=== PATIENT | female | born 1960 | race African-American/Black ===

== ENCOUNTER 2017-07-21 20:37 | Inpatient (IN) | payer MEDICARE, MEDICAID ==
[~2017-07-21] VITALS: Ht 152.4 cm; Wt 92.5 kg
[~2017-07-21 20:37] MED LIST: ACCOLATE20 MG PO; ADVAIR 250-501 EACH IH; ALIGN4 MG PO; ANASTROZOLE1 MG PO; ASPIRIN81 M1 PO; CLONIDINE0.1 MG PO; CYCLOBENZAPRINE10 MG PO; DOC-Q-LACE100 MG PO; DUONEB 0.5 MG-33 ML IH; FLONASE1 SPRAYS NASAL; HYDROCHLOROTH12.5 M1 PO; HYDROCODON-ACE1 EA11 PO; HYDROXYZINE HCL50 MG PO; KLOR-CON M1010 MEQ PO; LISINOPRIL10 MG ORAL; MELOXICAM15 MG PO; METFORMIN HCL1000 M1 ORAL; MONTELUKAST SOD10 MG PO; NEXIUM40 MG PO; OYSCO 500+D TA1 EACH PO; RESTORIL30 MG ORAL; TEMAZEPAM30 MG PO; TRIAMTERENE-HC1 EAC1 PO; VALTREX500 MG ORAL; ZOCOR40 MG PO; ZOLOFT50 MG PO; [UNRECOGNIZED DRUG - OTHER] PO
--- NOTE | 2017-07-21 20:49 | Emergency Room Report ---
History of Present Illness General Chief Complaint: Dyspnea/Respdistress Source: Patient Present Illness HPI [id number] BIBEMS for SOB since this morning. SNF told EMS, hypoxia down to 50%. Improved to 100% on CPAP. Patient states history of CHF, COPD. Former smoker. On 3L Home O2 From SNF Denies chest pain, fever/chills, cough, abd pain, urinary complaints. Allergies: Coded Allergies: AMOXICILLIN (Verified Allergy, Mild, RASH HIVES, 09/29/13) CODEINE (Verified Allergy, Mild, RASH/HIVES, 09/29/13) IODINE (Verified Allergy, Unknown, 09/29/13) PENICILLINS (Verified Allergy, Unknown, RASH HIVES, 09/29/13) Patient History Past Medical History: other - see hpit Past Surgical History: none Pertinent Family History: none Social History: Denies: smoking, alcohol use, drug use Last Menstrual Period: none Now: No Immunizations: UTD Reviewed Nursing Documentation: PMH: Agreed, PSxH: Agreed Nursing Documentation-PMH Hx Cardiac Problems: Yes Hx Hypertension: Yes Hx Pacemaker: No Hx Asthma: Yes Hx COPD: Yes Hx Diabetes: Yes Hx Cancer: Yes - UTERINE AND BREAST Hx Gastrointestinal Problems: Yes Hx Neurological Problems: No Review of Systems All Other Systems: negative except mentioned in HPI Physical Exam Vital Signs Date Time Temp Pulse Resp B/P (MAP) Pulse Ox O2 Delivery O2 Flow Rate FiO2 07/21/17 20:31 98.8 84 26 137/60 100 Venturi Mask Sp02 EP Interpretation: reviewed, normal General Appearance: normal inspection, well appearing, no apparent distress, alert, GCS 15, non-toxic Head: normocephalic, atraumatic Eyes: bilateral eye PERRL, bilateral eye EOMI ENT: normal ENT inspection, hearing grossly normal, normal voice Neck: normal inspection, full range of motion, supple, no meningismus, no bony tend Respiratory: normal inspection, lungs clear, normal breath sounds, no respiratory distress, no retraction, no wheezing Cardiovascular #1: regular rate, rhythm, no edema Gastrointestinal: normal inspection, normal bowel sounds, non tender, soft, no guarding, no hernia Genitourinary: no CVA tenderness Musculoskeletal: normal inspection, back normal, normal range of motion, Emy' s Sign negative Neurologic: normal inspection, alert, oriented x3, responsive, 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, motor strength/tone normal, speech normal Psychiatric: normal inspection, judgement/insight normal, mood/affect normal Skin: normal inspection, normal color, no rash Lymphatic: normal inspection Procedures Critical Care Time Critical Care Time CC time 35 minutes for SOB, hypoxia VS: O2 sat 80% on RA here History of CHF, COPD CC time includes adjusting Bipap, interpreting ABG, review of ECG, labs, d/w hospitalist, review of paperwork, multiple bedside reassessment Intubation Intubation : Consent: Emergent Intubation Method: orotracheal Tube Size (cm): 7.5 Medications: Etomidate, Rocuronium Breath Sounds after Intubation: equal Intubation Complications: no complications Post Intubation Xray: Yes Attempts: One Patient Tolerated: Well Complications: None Medical Decision Making Diagnostic Impression: Primary Impression: Dyspnea Qualified Codes: R06.02 - Shortness of breath Additional Impressions: Hypoxia Pneumonia Qualified Codes: J18.1 - Lobar pneumonia, unspecified organism Hyperkalemia Prolonged Q-T interval on ECG Hypercapnia ER Course Labs: No leuks. H&H stable. Mild HyperK. Troponin <0.05 ECG with Atrial flutter without RVR, prolonged QTc SOB - Multifactorial: COPD exacerbation and right lower lob PNA - Blood Cx pending - Abd given - Vitals otherwise stable - On initial ABG was hypercarbia. Tried with BIPAP at high RR with serial ABG because patient at first did not want to be intubated. After ~60minutes of bipap , was still hypercarbic and mildly acidotic with worsening somnolence requiring emergent intubation. Prolonged QTc - Avoid prolongation meds - IV Mg given in ED - also a bronchodilator for COPD exace Admitted to [facility] Dr. Downey 1000pm Upgraded to ICU 3am Dr Downey informed of change EKG Diagnostic Results Rate: normal Rhythm: other - Atrial flutter ST Segments: other - Prolonged QTc ASA given to the pt in ED: No Rhythm Strip Diag. Results EP Interpretation: yes Rate: 75 Rhythm: NSR, no PVC's Chest X-Ray Diagnostic Results Chest X-Ray Diagnostic Results : Chest X-Ray Ordered: Yes # of Views/Limited/Complete: 1 View Indication: Shortness of Breath EP Interpretation: Yes Interpretation: no pneumothorax, no acute cardiopulmonary disease Impression: Other - Right lower lobe PNA Last Vital Signs Date Time Temp Pulse Resp B/P (MAP) Pulse Ox O2 Delivery O2 Flow Rate FiO2 07/21/17 20:31 98.8 84 26 137/60 100 Venturi Mask Status: improved Disposition: ADMITTED INPATIENT Condition: Critical SUKHDEV CARBAJAL M.D. Jul 21, 2017 20:49
[2017-07-21 20:53] VITALS: BP 157/56
[2017-07-21 21:09] LABS: BASOPHILS % (AUTO) 1.9 % (0.0-2.0); EOSINOPHILS % (AUTO) 0.2 % (0.0-3.0); LYMPHOCYTES % (AUTO) 19.3 % (20.0-45.0); MEAN CORPUSCULAR HEMOGLOBIN 27.4 PG (27.0-31.0); MEAN CORPUSCULAR HGB CONC 28.1 G/DL (32.0-36.0); MEAN CORPUSCULAR VOLUME 98 FL (80-99); MEAN PLATELET VOLUME 7.3 FL (6.5-10.1); MONOCYTES % (AUTO) 5.7 % (1.0-10.0); PLATELET COUNT 282 K/UL (150-450); RED BLOOD COUNT 3.67 M/UL (4.20-5.40); RED CELL DISTRIBUTION WIDTH 14.9 % (11.6-14.8); WHITE BLOOD COUNT 9.2 K/UL (4.8-10.8)
[2017-07-21 21:43] LABS: ALANINE AMINOTRANSFERASE 19 U/L (12-78); ALBUMIN/GLOBULIN RATIO 0.8 (1.0-2.7); ANION GAP 2 (5-15); ASPARTATE AMINO TRANSFERASE 20 U/L (15-37); CHLORIDE 101 MMOL/L (98-107); CREATININE 0.7 MG/DL (0.55-1.30); GLOMERULAR FILTRATION RATE > 60 mL/min (>60); POTASSIUM 5.2 MMOL/L (3.5-5.1); SODIUM 144 MMOL/L (136-145); TOTAL PROTEIN 6.4 G/DL (6.4-8.2)
[2017-07-21 21:44] LABS: CARBON DIOXIDE 41 MMOL/L (21-32)
[2017-07-21] MEDS ORDERED: Albuterol ud Inhalation HHN ONE (22:15)
[2017-07-21] MEDS ORDERED: Vancomycin 1 GM in NS 275 ML IVPB ONE (22:15)
[2017-07-21] MEDS ORDERED: AMIODARONE HCL400 M1 ORAL (22:55)
[2017-07-21] MEDS ORDERED: PANTOPRAZOLE SO40 MG ORAL (22:55)
[2017-07-21] MEDS ORDERED: ZOFRAN8 MG ORAL (22:55)
[2017-07-21] MEDS ORDERED: LEVEMIR FL100 UNIT/1 SUBQ (22:55)
[2017-07-21] MEDS ORDERED: CATAPRES0.1 MG ORAL (22:55)
[2017-07-21] MEDS ORDERED: ATORVASTATIN CA20 MG ORAL (22:55)
[2017-07-21] MEDS ORDERED: ALBUTEROL2.5 MG/3 M INH (22:55)
[2017-07-21] MEDS ORDERED: LOSARTAN POTASS25 MG ORAL (22:55)
[2017-07-21] MEDS ORDERED: SERTRALINE HCL25 MG ORAL (22:55)
[2017-07-21] MEDS ORDERED: FUROSEMIDE20 M1 ORAL (22:55)
[2017-07-21] MEDS ORDERED: ELIQUIS5 MG PO (22:55)
[2017-07-21] MEDS ORDERED: METFORMIN HCL500 M1 ORAL (22:55)
[2017-07-21] MEDS ORDERED: TEMAZEPAM15 MG ORAL (22:55)
[2017-07-21] MEDS ORDERED: DILTIAZEM 24HR120 M1 ORAL (22:55)
[2017-07-21] MEDS ORDERED: DOCUSATE SODIU100 MG ORAL (22:55)
[2017-07-21 23:46] LABS: ABG ALLEN TEST POSITIVE; ABG BASE EXCESS 13.2
[2017-07-21 23:47] VITALS: BP 128/67
[2017-07-22] VITALS (20 sets, daily range): BP systolic 119–185; BP diastolic 56–96
[2017-07-22] MEDS ORDERED: Vancomycin 1250mg/D5W 250ml IVPB SCH
[2017-07-22] MEDS ORDERED: Vancomycin 1.5gm/D5W 250ml 250 ML IVPB ONE
[2017-07-22 00:42] LABS: ABG ALLEN TEST POSITIVE; ABG BASE EXCESS 10.7; ABG PCO2 91.9 mmHg (35.0-45.0)
[2017-07-22 02:05] LABS: ABG ALLEN TEST POSITIVE; ABG BASE EXCESS 13.9; ABG PCO2 99.6 mmHg (35.0-45.0)
[2017-07-22] MEDS ORDERED: Zemuron 50mg/5ml Inj IV ONE ×2 (03:00→03:30)
[2017-07-22] MEDS ORDERED: Etomidate 40mg/20ml Inj IV ONE (03:30)
[2017-07-22] MEDS ORDERED: fentaNYL 100 mcg/2 mL IV ONE ×3 (03:45→07:15)
[2017-07-22] MEDS ORDERED: Midazolam 2mg/2ml Inj IVP ONE (04:00)
[2017-07-22] MEDS ORDERED: LORazepam 20 MG in NS 90 ML IV SCH (04:00)
[2017-07-22] MEDS ORDERED: Midazolam/D5W 100ml 100 ML IVPB STA (04:04)
[2017-07-22] MEDS ORDERED: Midazolam/D5W 100ml 100 ML IVPB ONE (04:05)
[2017-07-22 05:06] LABS: ABG ALLEN TEST POSITIVE; ABG BASE EXCESS 13.1; ABG PCO2 65.5 mmHg (35.0-45.0)
[2017-07-22] MEDS ORDERED: Promethazine/Codeine 5ml UD ORAL PRN (05:45)
[2017-07-22] MEDS ORDERED: Piperacillin/Tazobactam 3.375 GM in D5W 110 ML IVPB SCH (06:00)
[2017-07-22] MEDS: Solu-MEDROL 125mg Inj IVP SCH ×3 (06:00→21:32)
[2017-07-22] MEDS ORDERED: Zosyn 3.375gm inj ONE (07:47)
[2017-07-22] MEDS: Midazolam/D5W 100ml 100 ML IVPB PRN ×5 (09:58→22:50)
[2017-07-22] MEDS ORDERED: Sodium Polystyrene Sulfonate 15gm Powder ORAL ONE (10:00)
--- NOTE | 2017-07-22 11:11 | Diagnostic Imaging Report ---
Indication: Status post nasogastric tube placement Technique: Supine view of the upper abdomen Comparison: none Findings: There is a nasogastric tube in place, tip which projects at the level of the gastric fundus, proximal port at the expected level of the gastroesophageal junction. Considerable stool is seen in the proximal transverse colon. There is blunting of left costophrenic sulcus, likely indicating pleural fluid Impression: Nasogastric tube in place, tip in the gastric fundus, but proximal port at the level of the gastroesophageal junction and therefore slight advancement would be prudent. This was discussed with ICU charge nurse, Guera, at the time of interpretation Other findings as noted
[2017-07-22] MEDS: Levemir Flexpen SUBQ SCH (11:28)
[2017-07-22] MEDS: Amiodarone 200mg tab ORAL SCH ×2 (11:29→18:06)
[2017-07-22] MEDS: Sertraline 100mg tab ORAL SCH (11:29)
[2017-07-22] MEDS: dilTIAZem HCl 90mg tab ORAL SCH ×2 (11:29→20:55)
[2017-07-22] MEDS: Cefepime HCl 1 GM in D5W 55 ML IVPB SCH ×2 (11:29→20:55)
[2017-07-22] MEDS: metFORMIN 500mg tab ORAL SCH ×3 (11:29→18:07)
[2017-07-22] MEDS: Losartan 50mg tab ORAL SCH (11:30)
[2017-07-22] MEDS: Docusate 100mg cap ORAL SCH ×2 (11:30→18:06)
--- NOTE | 2017-07-22 11:30 | Diagnostic Imaging Report ---
Indication: SOB Technique: One view of the chest Comparison: 12/23/2013 Findings: Body habitus limits evaluation There is considerable consolidation at both lung bases. There is also generalized interstitial edema. The pleural spaces are probably clear. The heart is enlarged. The upper mediastinum is unremarkable. There are degenerative changes of the left shoulder Impression: Bilateral basilar infiltrates versus edema. Background generalized interstitial edema Cardiomegaly, also previously described
[2017-07-22] MEDS: Eliquis 2.5mg tablet ORAL SCH ×2 (11:31→18:07)
--- NOTE | 2017-07-22 11:44 | Diagnostic Imaging Report ---
Indication: TUBE PLCMT Technique: One view of the chest Comparison: 6 hours earlier Findings: Internal endotracheal intubation, endotracheal tube tip projecting in good position approximately 5 cm above the parul. Better aeration of the lung bases is demonstrated, although interstitial congestion and bilateral basilar infiltrates persist. There is now evidence of slight bilateral costophrenic angle blunting, likely indicating small bilateral pleural effusions. The heart remains enlarged. Impression: Satisfactory endotracheal intubation Improved aeration at the lung bases, but persistent basilar infiltrates and generalized interstitial congestion Stable cardiomegaly
[2017-07-22] MEDS: Vancomycin 1250mg/D5W 250ml IVPB SCH (12:12)
[2017-07-22] MEDS: Morphine Sulfate 2mg/ml Inj IVP PRN ×2 (14:54→20:58)
[2017-07-22] MEDS ORDERED: LORazepam Inj 2mg/ml 1ml IV PRN (15:45)
--- NOTE | 2017-07-22 16:51 | Diagnostic Imaging Report ---
Indication: Shortness of breath Technique: One view of the chest Comparison: 7 hours earlier Findings: Interim placement of a nasogastric tube, tip of which is not well demonstrated, better seen on subsequent abdomen radiograph. Tail satisfactory position of endotracheal tube. Bilateral basilar infiltrates and generalized interstitial congestion persists, largely stable. Heart remains enlarged. Impression: Interim nasogastric intubation Otherwise stable findings as described
--- NOTE | 2017-07-22 18:00 | Consultation ---
DATE OF CONSULTATION: 07/22/2017 PULMONARY CONSULTATION REFERRING PHYSICIAN: Floyd Downey M.D. REASON FOR CONSULTATION: Respiratory failure. HISTORY: This 57-year-old unfortunate female with longstanding history of COPD. The patient continues to smoke and continues to be noncompliant. The patient was noted to be significantly hypoxemic and presented to the emergency room. The patient was placed on CPAP, but did not improve. The patient is chronically on oxygen at home. The patient was seen and evaluated and the patient apparently deteriorated. X-ray suggestive of pneumonia. The patient was noted to be more acidotic and more somnolent and was intubated in the emergency room. The patient is now intubated. I was asked to evaluate and recommend further as the patient has significant advanced COPD. She also has sleep apnea. The patient recently was transferred to the [facility] facility and now presents with acute decompensation. PAST MEDICAL HISTORY: Notable for CHF, COPD, sleep apnea, chronic hypoxemia, chronic hypercapnia, noncompliance, morbid obesity, history of breast cancer, history of neuropathy, history of chronic pain, and history of hypertension. MEDICATIONS: Reviewed. ALLERGIES: Reviewed. SOCIAL HISTORY: Longstanding history of smoking. Continues to smoke. Oxygen-dependent. Disabled. REVIEW OF SYSTEMS: Unobtainable. FAMILY HISTORY: Noncontributory to the above. PHYSICAL EXAMINATION: GENERAL: A well-developed female, intubated. VITAL SIGNS: Blood pressure 146/80 with 100% saturation, pulse 87, temperature 98.1 degrees, and respiratory rate 30. HEENT: Fairly negative. Pupils are sluggish. Orally intubated. NECK: Supple and short. LUNGS: With moderate breath sounds with reduced air entry overall. CARDIAC: S1 and S2 regular rate and rhythm without murmurs, rubs, or gallops. ABDOMEN: Soft, obese, nontender, rotund. EXTREMITIES: No cyanosis or clubbing. There is mild edema. NEUROLOGICAL: Sedated. LABORATORY AND DIAGNOSTIC DATA: Lab data reviewed. ICU care reviewed. White blood cell count 9.2, hemoglobin 10, hematocrit 35 and platelets of 282. Chemistry is noted and reviewed, potassium 5.2, bicarbonate 41, BUN 22, and creatinine 0.7. ABG initially 7.24 with a pCO2 of 100 and now on the ventilator, pH 7.40, pCO2 65, pO2 132, and bicarbonate 40%. IMPRESSION: 1. Respiratory failure, acute on chronic. 2. Acute on chronic carbon dioxide retention. 3. Chronic hypercapnia. 4. Chronic hypoxemia. 5. Chronic obstructive pulmonary disease with acute exacerbation. 6. Congestive heart failure per history. 7. Obstructive sleep apnea per history. 8. Metabolic alkalosis due to compensatory needs. 9. Hyperkalemia. 10. Hyperglycemia and diabetes. 11. History cancer. 12. History of congestive heart failure. RECOMMENDATION: Ventilatory support. IV Solu-Medrol. Respiratory therapy. Monitor peak pressures on the ventilator. Assess for weaning in the next 48 hours. Sedation as needed. Monitor fluid status and keep negative. Empiric antibiotics for possible pneumonia and resume home medications. Monitor blood sugars and prognosis is guarded at this time. Case discussed and reviewed. ICU care reviewed and discussed further with the patient's primary medical doctor pending reevaluation. Froilan Caruso M.D. DR: MARK JOB#: [id number] CC:
--- NOTE | 2017-07-22 18:15 | History and Physical Report ---
DATE OF ADMISSION: 07/21/2017 CHIEF COMPLAINT: Respiratory failure. HISTORY OF PRESENT ILLNESS: The patient is a 57-year-old female. She has a history of severe COPD, hypertension, paroxysmal atrial fibrillation/flutter, diabetes, obesity. She has a history of severe osteoarthritis. She presented from [facility] facility with complaints of acute onset of shortness of breath. I was actually at the intermediate the afternoon of her admission. At that time, she was doing well. She was doing physical therapy. She had no shortness of breath. Apparently in the evening, the patient became acutely more short of breath, hypoxic, paramedics were called and the patient was transferred [facility]. On evaluation there, she initially did well on BiPAP, but because of hypercapnia and respiratory acidosis, she was intubated and is now on the ventilator. She is currently sedated. PAST MEDICAL HISTORY: As above. PAST SURGICAL HISTORY: History of mastectomy and oophorectomy. CURRENT MEDICATIONS: Reconciled and reviewed. ALLERGIES: Amoxicillin, codeine, iodine, and penicillin. SOCIAL HISTORY: Positive for long history of smoking. No drugs. No alcohol. FAMILY HISTORY: Noncontributory. REVIEW OF SYSTEMS: Unobtainable as the patient is currently intubated. PHYSICAL EXAMINATION: VITAL SIGNS: Temperature 98 degrees, pulse 89, blood pressure 146/66. GENERAL: The patient is well-developed female, in no apparent distress. She is orally intubated, currently sedated. NECK: Supple. HEART: Regular rate and rhythm. LUNGS: Diminished breath sounds with scattered wheezes. ABDOMEN: Soft, nontender and nondistended. EXTREMITIES: Without clubbing, cyanosis, or edema. LABORATORY AND DIAGNOSTIC DATA: White count is 9, hemoglobin 10, hematocrit 35, and platelets of 282. Initial ABG showed a pH of 7.24 with a pCO2 of 104, pO2 of 124, and bicarbonate of 44. Sodium is 144, potassium 5.2, chloride 101, bicarbonate 41, BUN 22, and creatinine is 0.7. . ASSESSMENT: This is a pleasant female, admitted with respiratory failure. 1. Respiratory failure. 2. Chronic obstructive pulmonary disease exacerbation. 3. Questionable right-sided pneumonia. 4. Diabetes. 5. Hypertension. 6. History of atrial fibrillation and atrial flutter. PLAN: Continue vent support, respiratory treatments. Continue IV steroids. Empiric antibiotic therapy to cover for healthcare-associated pneumonia. Continue sedation as needed. Pulmonary, Cardiology, and Infectious Diseases consultation has been obtained. Floyd Downey M.D. DR: CLEMENT JOB#: [id number] CC:
--- NOTE | 2017-07-22 18:45 | Consultation ---
DATE OF CONSULTATION: 07/22/2017 INFECTIOUS DISEASES CONSULTATION CONSULTING PHYSICIAN: Lo Delcid M.D. REFERRING PHYSICIAN: Floyd Downey M.D. REASON FOR CONSULTATION: Pneumonia. HISTORY OF PRESENTING ILLNESS: This is a 57-year-old lady with history of CHF and COPD, who came in with shortness of breath. She was seen in [facility] where she was found to have pneumonia. She has been intubated and an Infectious Diseases consultation has been obtained for antibiotics. PAST MEDICAL HISTORY: 1. History of congestive heart failure. 2. COPD. 3. Hypertension. 4. Asthma. 5. Diabetes. 6. History of uterine and breast cancer. MEDICATIONS: As an inpatient, she is on Lipitor, cefepime, Protonix, Cozaar, amiodarone, Zoloft, diltiazem, furosemide, insulin, Eliquis, docusate, metformin, Solu-Medrol, Restoril, clonidine, and Phenergan with codeine. ALLERGIES: 1. Amoxicillin. 2. Penicillin. 3. Iodine. 4. Codeine. SOCIAL HISTORY: She used to be a smoker. She does not smoke anymore. No history of alcohol or drug use. FAMILY HISTORY: Unknown. REVIEW OF SYSTEMS: Unable to obtain currently. PHYSICAL EXAMINATION: VITAL SIGNS: Temperature of 98.9 degrees, T-max of 98.9 degrees, pulse of 99, respiratory rate of 30, blood pressure 161/73, O2 saturation of 100%. HEENT: Pupils equally reactive to light and accommodation. Mouth appears clean without thrush. The patient is intubated. NECK: Supple. No adenopathy. No JVD. CARDIOVASCULAR: Regular rate and rhythm. No murmurs. LUNGS: Clear to auscultation bilaterally. No crackles. No wheezes. ABDOMEN: Soft and nontender. No organomegaly. EXTREMITIES: No cyanosis. No clubbing. No edema. LABORATORY AND DIAGNOSTIC DATA: White count 9.2, hemoglobin 10, hematocrit 35.8, MCV 98, platelet count of 292,000 with neutrophils of 73%. Sodium 144, potassium 5.2, chloride 101, bicarbonate 41, BUN 22, creatinine 0.7, glucose 124, calcium 9, total bilirubin 0.2, AST 20, ALT 19, alkaline phosphatase 70, CK of 45, CK-MB 1, beta-natriuretic peptide 455, total protein 6.4, and albumin 2.9. Chest x-ray is showing right lower lobe pneumonia. ASSESSMENT: This is a 57-year-old lady with history of chronic obstructive pulmonary disease, uterine and breast cancer, who comes in and found to have, 1. Right lower lobe pneumonia. 2. Respiratory failure. 3. Chronic obstructive pulmonary disease. PLAN: 1. Continue cefepime. 2. Continue IV vancomycin. 3. We will add doxycycline. 4. We will order for serum Legionella antibody. 5. We will order for mycoplasma serology. 6. We will follow up cultures and adjust antibiotics accordingly. I would like to thank Dr. Downey for this consultation. Lo Delcid M.D. DR: Mike JOB#: [id number] CC: Floyd Downey M.D.
[2017-07-22] MEDS: LORazepam Inj 2mg/ml 1ml IV PRN ×2 (19:45→23:47)
[2017-07-22] MEDS: Atorvastatin 20mg tab ORAL SCH (20:55)
[2017-07-23] VITALS (27 sets, daily range): BP systolic 120–171; BP diastolic 56–90
[2017-07-23] MEDS: Vancomycin 1250mg/D5W 250ml IVPB SCH ×3 (00:28→23:57)
[2017-07-23] MEDS: Morphine Sulfate 2mg/ml Inj IVP PRN ×3 (01:05→09:50)
[2017-07-23] MEDS: Midazolam/D5W 100ml 100 ML IVPB PRN ×6 (02:00→22:04)
[2017-07-23] MEDS: LORazepam Inj 2mg/ml 1ml IV PRN ×4 (05:04→23:56)
[2017-07-23] MEDS: metFORMIN 500mg tab ORAL SCH ×3 (05:58→17:09)
[2017-07-23] MEDS: Solu-MEDROL 125mg Inj IVP SCH ×3 (05:58→20:55)
[2017-07-23 07:05] LABS: ALANINE AMINOTRANSFERASE 20 U/L (12-78); ALBUMIN/GLOBULIN RATIO 0.6 (1.0-2.7); ANION GAP 4 (5-15); ASPARTATE AMINO TRANSFERASE 13 U/L (15-37); CALCIUM 8.4 MG/DL (8.5-10.1); CARBON DIOXIDE 35 MMOL/L (21-32); CHLORIDE 94 MMOL/L (98-107); CREATININE 0.9 MG/DL (0.55-1.30); GLOMERULAR FILTRATION RATE > 60 mL/min (>60); POTASSIUM 3.3 MMOL/L (3.5-5.1); SODIUM 133 MMOL/L (136-145); TOTAL PROTEIN 6.9 G/DL (6.4-8.2)
[2017-07-23] MEDS: Cefepime HCl 1 GM in D5W 55 ML IVPB SCH ×2 (08:34→20:55)
[2017-07-23] MEDS: Eliquis 2.5mg tablet ORAL SCH ×2 (08:34→17:10)
[2017-07-23] MEDS: dilTIAZem HCl 90mg tab ORAL SCH ×2 (08:35→20:55)
[2017-07-23] MEDS: Docusate 100mg cap ORAL SCH ×2 (08:35→17:10)
[2017-07-23] MEDS: Losartan 50mg tab ORAL SCH (08:36)
[2017-07-23] MEDS: Amiodarone 200mg tab ORAL SCH ×2 (08:36→17:10)
[2017-07-23] MEDS: Sertraline 100mg tab ORAL SCH (08:36)
[2017-07-23] MEDS: Levemir Flexpen SUBQ SCH (08:38)
[2017-07-23] MEDS ORDERED: KCl 10% 40mEq/30ml liquid NG ONE (09:15)
--- NOTE | 2017-07-23 11:01 | Critical Care Progress Note ---
Assessment/Plan Assessment/Plan IMPRESSION: 1. Respiratory failure, acute on chronic. 2. Acute on chronic carbon dioxide retention. 3. Chronic hypercapnia. 4. Chronic hypoxemia. 5. Chronic obstructive pulmonary disease with acute exacerbation. 6. Congestive heart failure per history. 7. Obstructive sleep apnea per history. 8. Metabolic alkalosis due to compensatory needs. 9. Hyperkalemia. 10. Hyperglycemia and diabetes. 11. History cancer. 12. History of congestive heart failure. PLAN care noted IV antibiotics as needed ID noted respiratory care as is Ventilatory support SNF meds supportive care suction as needed no wean yet stabilize oxygen therapy prognosis guarded keep negative- change lasix to IV nutrition medications/laboratory data/nursing notes/ICU care reviewed in detail note reviewed and edited care discussed with RN and RT ICU time spent 40 minutes Critical Care - Subjective Interval Events: doing poorly on the ventilator labs and imaging noted remains critical at present ROS Limited/Unobtainable: Yes Condition: critical EKG Rhythm: Sinus Rhythm I&O: Intake and Output 07/23/17 07/24/17 19:00 07:00 Intake Total 245 ml Output Total 200 ml Balance 45 ml Free Water 30 ml IV Total 115 ml Other 100 ml Output Urine Total 200 ml Critical Care - Objective CXR: pulmonary edema ET-Tube: 7.0 ET Position: 24 Last 24 Hour Vital Signs Date Time Temp Pulse Resp B/P (MAP) Pulse Ox O2 Delivery O2 Flow Rate FiO2 07/23/17 10:35 30 07/23/17 10:20 98.9 07/23/17 10:00 110 30 140/71 100 Mechanical Ventilator 60 07/23/17 09:18 125 30 60 07/23/17 09:00 30 07/23/17 09:00 101 30 144/87 100 Mechanical Ventilator 60 07/23/17 08:36 156/90 07/23/17 08:35 128 156/90 07/23/17 08:26 30 07/23/17 08:00 60 07/23/17 08:00 30 07/23/17 08:00 129 07/23/17 08:00 98.9 128 30 156/90 100 Mechanical Ventilator 60 07/23/17 07:00 125 30 60 07/23/17 07:00 126 30 158/82 99 Mechanical Ventilator 60 07/23/17 06:00 119 26 161/81 99 Mechanical Ventilator 60 07/23/17 06:00 29 07/23/17 05:00 126 30 161/81 100 Mechanical Ventilator 60 07/23/17 04:53 30 07/23/17 04:37 126 30 60 07/23/17 04:00 98.9 125 28 164/85 100 Mechanical Ventilator 60 07/23/17 04:00 60 07/23/17 04:00 125 07/23/17 03:02 127 30 60 07/23/17 03:00 130 30 161/81 100 Mechanical Ventilator 60 07/23/17 02:00 30 07/23/17 02:00 127 26 165/76 100 Mechanical Ventilator 60 07/23/17 01:30 126 30 60 07/23/17 01:00 127 28 171/88 100 Mechanical Ventilator 60 07/23/17 01:00 26 07/23/17 00:00 126 07/23/17 00:00 28 07/23/17 00:00 98.7 126 28 171/88 99 Mechanical Ventilator 60 07/23/17 00:00 60 07/22/17 23:30 126 30 60 07/22/17 23:00 125 28 171/88 92 Mechanical Ventilator 60 07/22/17 22:50 30 07/22/17 22:00 111 26 182/82 98 Mechanical Ventilator 60 07/22/17 21:30 122 31 60 07/22/17 21:00 121 25 158/82 100 Mechanical Ventilator 60 07/22/17 20:55 127 158/96 07/22/17 20:09 27 07/22/17 20:00 98.9 127 27 158/96 100 Mechanical Ventilator 60 07/22/17 20:00 127 07/22/17 20:00 60 07/22/17 19:30 126 30 60 07/22/17 19:00 122 30 148/78 100 Mechanical Ventilator 60 07/22/17 19:00 30 07/22/17 18:00 123 30 164/85 100 Mechanical Ventilator 60 07/22/17 18:00 30 07/22/17 17:17 122 30 40 07/22/17 17:00 123 30 158/68 100 Mechanical Ventilator 60 07/22/17 17:00 30 07/22/17 16:00 120 07/22/17 16:00 98.6 123 30 119/89 100 Mechanical Ventilator 60 07/22/17 16:00 60 07/22/17 16:00 33 07/22/17 15:18 120 30 40 07/22/17 15:00 122 30 130/66 100 Mechanical Ventilator 50 07/22/17 14:00 109 30 185/78 100 Mechanical Ventilator 50 07/22/17 13:28 112 30 40 07/22/17 13:00 106 30 141/79 100 Mechanical Ventilator 50 07/22/17 12:00 98.9 110 30 168/78 100 Mechanical Ventilator 50 07/22/17 12:00 94 07/22/17 11:30 161/73 07/22/17 11:29 97 161/73 07/22/17 11:00 106 30 140/78 100 Mechanical Ventilator 50 Labs: Labs Test 07/21/17 20:50 07/21/17 23:29 07/22/17 00:25 07/22/17 01:55 White Blood Count 9.2 K/UL (4.8-10.8) Red Blood Count 3.67 M/UL (4.20-5.40) Hemoglobin 10.0 G/DL (12.0-16.0) Hematocrit 35.8 % (37.0-47.0) Mean Corpuscular Volume 98 FL (80-99) Mean Corpuscular Hemoglobin 27.4 PG (27.0-31.0) Mean Corpuscular Hemoglobin Concent 28.1 G/DL (32.0-36.0) Red Cell Distribution Width 14.9 % (11.6-14.8) Platelet Count 282 K/UL (150-450) Mean Platelet Volume 7.3 FL (6.5-10.1) Neutrophils (%) (Auto) 73.0 % (45.0-75.0) Lymphocytes (%) (Auto) 19.3 % (20.0-45.0) Monocytes (%) (Auto) 5.7 % (1.0-10.0) Eosinophils (%) (Auto) 0.2 % (0.0-3.0) Basophils (%) (Auto) 1.9 % (0.0-2.0) Sodium Level 144 MMOL/L (136-145) Potassium Level 5.2 MMOL/L (3.5-5.1) Chloride Level 101 MMOL/L (98-107) Carbon Dioxide Level 41 MMOL/L (21-32) Anion Gap 2 (5-15) Blood Urea Nitrogen 22 mg/dL (7-18) Creatinine 0.7 MG/DL (0.55-1.30) Estimat Glomerular Filtration Rate > 60 mL/min (>60) Glucose Level 124 MG/DL (74-106) Calcium Level 9.0 MG/DL (8.5-10.1) Total Bilirubin 0.2 MG/DL (0.2-1.0) Aspartate Amino Transf (AST/SGOT) 20 U/L (15-37) Alanine Aminotransferase (ALT/SGPT) 19 U/L (12-78) Alkaline Phosphatase 70 U/L (46-116) Total Creatine Kinase 45 U/L (26-308) Creatine Kinase MB 1.0 NG/ML (0.0-3.6) Creatine Kinase MB Relative Index 2.2 Troponin I 0.004 ng/mL (0.000-0.056) Pro-B-Type Natriuretic Peptide 455 (0-125) Total Protein 6.4 G/DL (6.4-8.2) Albumin 2.9 G/DL (3.4-5.0) Globulin 3.5 g/dL Albumin/Globulin Ratio 0.8 (1.0-2.7) Digoxin Level 0.7 NG/ML (0.9-2.0) Arterial Blood pH 7.245 (7.350-7.450) 7.264 (7.350-7.450) 7.265 (7.350-7.450) Arterial Blood Partial Pressure CO2 104.0 mmHg (35.0-45.0) 91.9 mmHg (35.0-45.0) 99.6 mmHg (35.0-45.0) Arterial Blood Partial Pressure O2 124.6 mmHg (75.0-100.0) 64.9 mmHg (75.0-100.0) 70.3 mmHg (75.0-100.0) Arterial Blood HCO3 44.1 mmol/L (22.0-26.0) 40.7 mmol/L (22.0-26.0) 44.2 mmol/L (22.0-26.0) Arterial Blood Base Excess 13.2 10.7 13.9 Rico Test Positive Positive Positive Arterial Blood Oxygen Saturation 89.3 % (92.0-98.0) 91.9 % (92.0-98.0) Test 07/22/17 04:45 07/22/17 12:30 07/23/17 05:15 Arterial Blood pH 7.405 (7.350-7.450) Arterial Blood Partial Pressure CO2 65.5 mmHg (35.0-45.0) Arterial Blood Partial Pressure O2 132.5 mmHg (75.0-100.0) Arterial Blood HCO3 40.1 mmol/L (22.0-26.0) Arterial Blood Oxygen Saturation 98.4 % (92.0-98.0) Arterial Blood Base Excess 13.1 Rico Test Positive Triglycerides Level 56 MG/DL (0-200) Sodium Level 133 MMOL/L (136-145) Potassium Level 3.3 MMOL/L (3.5-5.1) Chloride Level 94 MMOL/L (98-107) Carbon Dioxide Level 35 MMOL/L (21-32) Anion Gap 4 (5-15) Blood Urea Nitrogen 20 mg/dL (7-18) Creatinine 0.9 MG/DL (0.55-1.30) Estimat Glomerular Filtration Rate > 60 mL/min (>60) Glucose Level 268 MG/DL (74-106) Calcium Level 8.4 MG/DL (8.5-10.1) Total Bilirubin 0.4 MG/DL (0.2-1.0) Aspartate Amino Transf (AST/SGOT) 13 U/L (15-37) Alanine Aminotransferase (ALT/SGPT) 20 U/L (12-78) Alkaline Phosphatase 77 U/L (46-116) Total Protein 6.9 G/DL (6.4-8.2) Albumin 2.7 G/DL (3.4-5.0) Globulin 4.2 g/dL Albumin/Globulin Ratio 0.6 (1.0-2.7) Objective: GENERAL: A well-developed female, intubated. HEENT: Fairly negative. Pupils are sluggish. Orally intubated. NECK: Supple and short. LUNGS: With moderate breath sounds with reduced air entry overall. occasional rhonchi and wheeze CARDIAC: S1 and S2 regular rate and rhythm without murmurs, rubs, or gallops. ABDOMEN: Soft, obese, nontender, rotund. no HSM EXTREMITIES: No cyanosis or clubbing. There is mild edema. NEUROLOGICAL: Sedated. no real change Micro: Microbiology Date/Time Source Procedure Growth Status 07/22/17 00:15 Blood Blood Culture - Preliminary NO GROWTH AFTER 24 HOURS Resulted 07/22/17 00:00 Blood Blood Culture - Preliminary NO GROWTH AFTER 24 HOURS Resulted Accucheck: 249 OLIVER RAYMOND Jul 23, 2017 11:01
--- NOTE | 2017-07-23 11:45 | Infectious Diseases Prog Note ---
Assessment/Plan Assessment/Plan antibiotics : vancomycin iv, cefepime A 1. pneumonia 2. COPD 3. respiratory failure P 1. continue vancomycin iv, cefepime 2. will follow up cultures Subjective ROS Limited/Unobtainable: Yes Allergies: Coded Allergies: AMOXICILLIN (Verified Allergy, Mild, RASH HIVES, 09/29/13) CODEINE (Verified Allergy, Mild, RASH/HIVES, 09/29/13) IODINE (Verified Allergy, Unknown, 09/29/13) PENICILLINS (Verified Allergy, Unknown, RASH HIVES, 09/29/13) Objective Vital Signs Last 24 Hour Vital Signs Date Time Temp Pulse Resp B/P (MAP) Pulse Ox O2 Delivery O2 Flow Rate FiO2 07/23/17 11:22 99 30 60 07/23/17 11:00 109 30 147/76 99 Mechanical Ventilator 60 07/23/17 11:00 30 07/23/17 10:35 30 07/23/17 10:20 98.9 07/23/17 10:00 110 30 140/71 100 Mechanical Ventilator 60 07/23/17 10:00 30 07/23/17 09:18 125 30 60 07/23/17 09:00 30 07/23/17 09:00 101 30 144/87 100 Mechanical Ventilator 60 07/23/17 08:36 156/90 07/23/17 08:35 128 156/90 07/23/17 08:26 30 07/23/17 08:00 60 07/23/17 08:00 30 07/23/17 08:00 129 07/23/17 08:00 98.9 128 30 156/90 100 Mechanical Ventilator 60 07/23/17 07:00 125 30 60 07/23/17 07:00 126 30 158/82 99 Mechanical Ventilator 60 07/23/17 06:00 119 26 161/81 99 Mechanical Ventilator 60 07/23/17 06:00 29 07/23/17 05:00 126 30 161/81 100 Mechanical Ventilator 60 07/23/17 04:53 30 07/23/17 04:37 126 30 60 07/23/17 04:00 98.9 125 28 164/85 100 Mechanical Ventilator 60 07/23/17 04:00 60 07/23/17 04:00 125 07/23/17 03:02 127 30 60 07/23/17 03:00 130 30 161/81 100 Mechanical Ventilator 60 07/23/17 02:00 30 07/23/17 02:00 127 26 165/76 100 Mechanical Ventilator 60 07/23/17 01:30 126 30 60 07/23/17 01:00 127 28 171/88 100 Mechanical Ventilator 60 07/23/17 01:00 26 07/23/17 00:00 126 07/23/17 00:00 28 07/23/17 00:00 98.7 126 28 171/88 99 Mechanical Ventilator 60 07/23/17 00:00 60 07/22/17 23:30 126 30 60 07/22/17 23:00 125 28 171/88 92 Mechanical Ventilator 60 07/22/17 22:50 30 07/22/17 22:00 111 26 182/82 98 Mechanical Ventilator 60 07/22/17 21:30 122 31 60 07/22/17 21:00 121 25 158/82 100 Mechanical Ventilator 60 07/22/17 20:55 127 158/96 07/22/17 20:09 27 07/22/17 20:00 98.9 127 27 158/96 100 Mechanical Ventilator 60 07/22/17 20:00 127 07/22/17 20:00 60 07/22/17 19:30 126 30 60 07/22/17 19:00 122 30 148/78 100 Mechanical Ventilator 60 07/22/17 19:00 30 07/22/17 18:00 123 30 164/85 100 Mechanical Ventilator 60 07/22/17 18:00 30 07/22/17 17:17 122 30 40 07/22/17 17:00 123 30 158/68 100 Mechanical Ventilator 60 07/22/17 17:00 30 07/22/17 16:00 120 07/22/17 16:00 98.6 123 30 119/89 100 Mechanical Ventilator 60 07/22/17 16:00 60 07/22/17 16:00 33 07/22/17 15:18 120 30 40 07/22/17 15:00 122 30 130/66 100 Mechanical Ventilator 50 07/22/17 14:00 109 30 185/78 100 Mechanical Ventilator 50 07/22/17 13:28 112 30 40 07/22/17 13:00 106 30 141/79 100 Mechanical Ventilator 50 07/22/17 12:00 98.9 110 30 168/78 100 Mechanical Ventilator 50 07/22/17 12:00 94 Height (Feet): 5 Weight (Pounds): 202 HEENT: other - intubated Respiratory/Chest: lungs clear Cardiovascular: normal rate, regular rhythm, no gallop/murmur Abdomen: soft, non tender Extremities: no edema Microbiology Date/Time Source Procedure Growth Status 07/22/17 00:15 Blood Blood Culture - Preliminary NO GROWTH AFTER 24 HOURS Resulted 07/22/17 00:00 Blood Blood Culture - Preliminary NO GROWTH AFTER 24 HOURS Resulted Laboratory Tests Test 07/22/17 12:30 07/23/17 05:15 Legionella pneumophila Group 1 Ab Pending Legionella pneumophilia IgM Group 1 Pending Mycoplasma pneumoniae IgG Antibody Pending Mycoplasma pneumoniae IgM Ab Titer Pending Sodium Level 133 MMOL/L (136-145) L Potassium Level 3.3 MMOL/L (3.5-5.1) L Chloride Level 94 MMOL/L (98-107) L Carbon Dioxide Level 35 MMOL/L (21-32) H Anion Gap 4 (5-15) L Blood Urea Nitrogen 20 mg/dL (7-18) H Creatinine 0.9 MG/DL (0.55-1.30) Estimat Glomerular Filtration Rate > 60 mL/min (>60) Glucose Level 268 MG/DL (74-106) #H Calcium Level 8.4 MG/DL (8.5-10.1) L Total Bilirubin 0.4 MG/DL (0.2-1.0) Aspartate Amino Transf (AST/SGOT) 13 U/L (15-37) L Alanine Aminotransferase (ALT/SGPT) 20 U/L (12-78) Alkaline Phosphatase 77 U/L (46-116) Total Protein 6.9 G/DL (6.4-8.2) Albumin 2.7 G/DL (3.4-5.0) L Globulin 4.2 g/dL Albumin/Globulin Ratio 0.6 (1.0-2.7) L ANH PATRICK Jul 23, 2017 11:45
--- NOTE | 2017-07-23 13:43 | General Progress Note ---
Assessment/Plan Problem List: (1) Acute dyspnea (2) Diabetes mellitus ICD Codes: E11.9 - Diabetes mellitus SNOMED: 37302954 (3) Hypertension, malignant ICD Codes: I10 - Hypertension, malignant SNOMED: 97486155 (4) COPD exacerbation ICD Codes: J44.1 - COPD exacerbation SNOMED: 509683250 (5) CHF (6) Hypercapnia ICD Codes: R06.89 - Other abnormalities of breathing SNOMED: 39180421 (7) Pneumonia ICD Codes: J18.9 - Pneumonia, unspecified organism SNOMED: 666688364 Qualifiers: Qualified Codes: J18.1 - Lobar pneumonia, unspecified organism Status: stable Assessment/Plan vent resp rx decreased steroids iv lasix white for strict I and o monitoring abx per ID dvt/stress ulcer prophylaxis start feeds Subjective ROS Limited/Unobtainable: No Constitutional: Reports: malaise, weakness HEENT: Reports: no symptoms Cardiovascular: Reports: no symptoms Respiratory: Reports: no symptoms Gastrointestinal/Abdominal: Reports: no symptoms Genitourinary: Reports: no symptoms Neurologic/Psychiatric: Reports: anxiety Endocrine: Reports: no symptoms Hematologic/Lymphatic: Reports: no symptoms Allergies: Coded Allergies: AMOXICILLIN (Verified Allergy, Mild, RASH HIVES, 09/29/13) CODEINE (Verified Allergy, Mild, RASH/HIVES, 09/29/13) IODINE (Verified Allergy, Unknown, 09/29/13) PENICILLINS (Verified Allergy, Unknown, RASH HIVES, 09/29/13) All Systems: reviewed and negative except above Subjective on the vent. agitated. no fevers. on iv steroids and resp rx atc. on iv abx Objective Last 24 Hour Vital Signs Date Time Temp Pulse Resp B/P (MAP) Pulse Ox O2 Delivery O2 Flow Rate FiO2 07/23/17 13:00 126 30 158/86 92 Mechanical Ventilator 60 07/23/17 12:00 129 07/23/17 12:00 98.5 111 30 167/87 100 Mechanical Ventilator 60 07/23/17 12:00 60 07/23/17 12:00 30 07/23/17 11:22 99 30 60 07/23/17 11:00 109 30 147/76 99 Mechanical Ventilator 60 07/23/17 11:00 30 07/23/17 10:35 30 07/23/17 10:20 98.9 07/23/17 10:00 110 30 140/71 100 Mechanical Ventilator 60 07/23/17 10:00 30 07/23/17 09:18 125 30 60 07/23/17 09:00 30 07/23/17 09:00 101 30 144/87 100 Mechanical Ventilator 60 07/23/17 08:36 156/90 07/23/17 08:35 128 156/90 07/23/17 08:26 30 07/23/17 08:00 60 07/23/17 08:00 30 07/23/17 08:00 129 07/23/17 08:00 98.9 128 30 156/90 100 Mechanical Ventilator 60 07/23/17 07:00 125 30 60 07/23/17 07:00 126 30 158/82 99 Mechanical Ventilator 60 07/23/17 06:00 119 26 161/81 99 Mechanical Ventilator 60 07/23/17 06:00 29 07/23/17 05:00 126 30 161/81 100 Mechanical Ventilator 60 07/23/17 04:53 30 07/23/17 04:37 126 30 60 07/23/17 04:00 98.9 125 28 164/85 100 Mechanical Ventilator 60 07/23/17 04:00 60 07/23/17 04:00 125 07/23/17 03:02 127 30 60 07/23/17 03:00 130 30 161/81 100 Mechanical Ventilator 60 07/23/17 02:00 30 07/23/17 02:00 127 26 165/76 100 Mechanical Ventilator 60 07/23/17 01:30 126 30 60 07/23/17 01:00 127 28 171/88 100 Mechanical Ventilator 60 07/23/17 01:00 26 07/23/17 00:00 126 07/23/17 00:00 28 07/23/17 00:00 98.7 126 28 171/88 99 Mechanical Ventilator 60 07/23/17 00:00 60 07/22/17 23:30 126 30 60 07/22/17 23:00 125 28 171/88 92 Mechanical Ventilator 60 07/22/17 22:50 30 07/22/17 22:00 111 26 182/82 98 Mechanical Ventilator 60 07/22/17 21:30 122 31 60 07/22/17 21:00 121 25 158/82 100 Mechanical Ventilator 60 07/22/17 20:55 127 158/96 10/10/17 20:09 27 07/22/17 20:00 98.9 127 27 158/96 100 Mechanical Ventilator 60 07/22/17 20:00 127 07/22/17 20:00 60 07/22/17 19:30 126 30 60 07/22/17 19:00 122 30 148/78 100 Mechanical Ventilator 60 07/22/17 19:00 30 07/22/17 18:00 123 30 164/85 100 Mechanical Ventilator 60 07/22/17 18:00 30 07/22/17 17:17 122 30 40 07/22/17 17:00 123 30 158/68 100 Mechanical Ventilator 60 07/22/17 17:00 30 07/22/17 16:00 120 07/22/17 16:00 98.6 123 30 119/89 100 Mechanical Ventilator 60 07/22/17 16:00 60 07/22/17 16:00 33 07/22/17 15:18 120 30 40 07/22/17 15:00 122 30 130/66 100 Mechanical Ventilator 50 07/22/17 14:00 109 30 185/78 100 Mechanical Ventilator 50 Intake and Output 07/23/17 07/24/17 19:00 07:00 Intake Total 375 ml Output Total 365 ml Balance 10 ml Free Water 30 ml IV Total 215 ml Other 130 ml Output Urine Total 365 ml Laboratory Tests 07/23/17 05:15: Sodium Level 133L, Potassium Level 3.3L, Chloride Level 94L, Carbon Dioxide Level 35H, Anion Gap 4L, Blood Urea Nitrogen 20H, Creatinine 0.9, Estimat Glomerular Filtration Rate > 60, Glucose Level 268#H, Calcium Level 8.4L, Total Bilirubin 0.4, Aspartate Amino Transf (AST/SGOT) 13L, Alanine Aminotransferase ( ALT/SGPT) 20, Alkaline Phosphatase 77, Total Protein 6.9, Albumin 2.7L, Globulin 4.2, Albumin/Globulin Ratio 0.6L 07/23/17 11:35: Vancomycin Level Trough [Pending] Height (Feet): 5 Weight (Pounds): 202 General Appearance: WD/WN, combative Neck: supple Cardiovascular: normal rate Respiratory/Chest: lungs clear Abdomen: normal bowel sounds, non tender, soft, no organomegaly Edema: no edema noted Arm (L), no edema noted Arm (R), no edema noted Leg (L), no edema noted Leg (R), no edema noted Pedal (L), no edema noted Pedal (R), no edema noted Generalized Neurologic: disoriented CRISTIANA BROCK Jul 23, 2017 13:42
[2017-07-23] MEDS ORDERED: Tubing IV Secondary IV ONE (17:05)
[2017-07-23] MEDS: Atorvastatin 20mg tab ORAL SCH (20:56)
[2017-07-24] VITALS (33 sets, daily range): BP systolic 98–157; BP diastolic 42–70
[2017-07-24] MEDS: dilTIAZem HCl 90mg tab ORAL SCH ×5 (00:01→23:32)
[2017-07-24] MEDS: Morphine Sulfate 2mg/ml Inj IVP PRN (00:40)
--- NOTE | 2017-07-24 00:46 | Consultation ---
DATE OF CONSULTATION: 07/22/2017 CARDIOLOGY CONSULTATION CONSULTING PHYSICIAN: Werner Martinez M.D. ATTENDING PHYSICIAN: Floyd Downey M.D. REQUESTING PHYSICIAN: Floyd Downey M.D. REASON FOR CONSULTATION: Respiratory failure in the setting of paroxysmal atrial fibrillation and hypertensive cardiomyopathy. HISTORY OF PRESENT ILLNESS: This is a 57-year-old female with advanced COPD, pulmonary hypertension, and underlying cardiovascular disease as noted above. She was hospitalized at another facility just approximately a week ago with exacerbation of COPD, improved, and was discharged. She returned to the hospital emergency room last evening with shortness of breath and earlier that day was doing well at the [facility] where she was receiving physical therapy. The patient was brought into the emergency room by paramedics. She required intubation and mechanical ventilation due to severe tachypnea and hypoxia and was noted to have severe respiratory acidosis. PAST MEDICAL HISTORY: Includes paroxysmal atrial fibrillation, hypertensive heart disease, diastolic dysfunction with congestive heart failure, breast cancer with right mastectomy, degenerative disk disease, osteoarthritis, and history of oophorectomy. ALLERGIES: Include penicillin, codeine, and iodine. SOCIAL HISTORY: Longstanding smoking history of over 60 pack-years, never really quit, but intermittently stopped for short time. No alcohol or recent substance abuse; however, there is distant history of substance abuse. REVIEW OF SYSTEMS: Cannot be obtained from the patient at this time; however, available hospital records are reviewed and pertinent data as outlined above. Of note, a recent echocardiogram revealed normal ejection fraction, concentric hypertrophy, diastolic relaxation abnormality, mild tricuspid regurgitation, and mild pulmonary hypertension. The patient is on anticoagulation due to paroxysmal atrial fibrillation. There is no history of flow-limiting coronary artery disease. PHYSICAL EXAMINATION: VITAL SIGNS: Afebrile, blood pressure 140/65, pulse 89, and respiratory rate 20. HEENT: Orally intubated. NECK: Obese. LUNGS: With coarse breath sounds and expiratory wheezes. CARDIAC: Irregularly irregular. Normal S1, S2. No appreciable murmur. ABDOMEN: Obese, soft, and nontender with no guarding or rebound. EXTREMITIES: No clubbing or cyanosis. Decreased capillary refill is noted with no edema. LABORATORY AND DIAGNOSTIC DATA: BUN 22, creatinine 0.7, and potassium 5.2. ABG 7.24/104/124. White count 9 and hemoglobin 10. EKG reveals atrial flutter with nonspecific ST-T wave abnormality. IMPRESSION: 1. Acute respiratory failure. 2. Acute on chronic respiratory acidosis. 3. Acute on chronic diastolic congestive heart failure. 4. Paroxysmal atrial flutter/fibrillation, rate controlled. 5. Pulmonary hypertension. 6. Hypertensive heart disease. 7. Possible healthcare-acquired pneumonia. 8. Acute bronchospasm. PLAN: 1. ICU care. 2. Ventilator support. 3. Intravenous steroids. 4. Inhaled bronchodilators. 5. Antibiotics per primary care physician. 6. No diuretics. 7. Monitor volume status and cardiorenal parameters. 8. P.r.n. antihypertensive therapy. 9. At this time, maintain Cardizem for rate control. 10. Continue cardioembolic prophylaxis with apixaban. Werner Martinez M.D. DR: Mauro JOB#: [id number] CC: SENTHIL
--- NOTE | 2017-07-24 01:31 | Progress Note ---
DATE: 07/23/2017 CARDIOLOGY PROGRESS NOTE SUBJECTIVE: The patient remains orally intubated and mechanically ventilated. Monitor reveals atrial flutter/fibrillation, rate controlled. Rare ventricular ectopics. OBJECTIVE: VITAL SIGNS: Blood pressure 167/87, pulse 111, respirations 30, and afebrile. NECK: Supple. Accessory muscle use at times. Orally intubated. LUNGS: Expiratory wheezes and diminished breath sounds. CARDIAC: Irregularly irregular. Normal S1 and S2. A 1/6 systolic murmur at the lower left sternal border. ABDOMEN: Soft, obese, and nontender. EXTREMITIES: Trace dependent edema. No cyanosis was seen. LABORATORY AND DIAGNOSTIC DATA: Chest x-ray yesterday revealed nasogastric intubation and bilateral infiltrates and plus-minus edema. Sodium 133, potassium 3.3, BUN 20, and creatinine 0.9. Albumin 2.7. ABG, 7.40, 65, and 132. Digoxin level on admission was 0.7. IMPRESSION: 1. Chronic obstructive pulmonary disease with acute exacerbation. 2. Acute respiratory failure. 3. Acute bronchospasm. 4. Healthcare-acquired pneumonia. 5. Acute on chronic diastolic congestive heart failure. RECOMMENDATIONS: 1. At this time, continue ventilator support. 2. Broad-spectrum antibiotics. 3. Hold diuresis. 4. Optimize antihypertensive care. 5. Continue diltiazem for rate control. 6. We will check natriuretic peptide assay. 7. We will titrate further cardiovascular regimen for optimizing blood pressure control and rate control in the setting of atrial fibrillation/flutter. Wernre Martinez M.D. DR: MELISSA JOB#: [id number] CC: SENTHIL
[2017-07-24] MEDS: Midazolam/D5W 100ml 100 ML IVPB PRN (02:35)
[2017-07-24] MEDS: LORazepam Inj 2mg/ml 1ml IV PRN (03:08)
[2017-07-24] MEDS: metFORMIN 500mg tab ORAL SCH ×3 (06:11→17:13)
[2017-07-24 06:59] LABS: MEAN CORPUSCULAR HEMOGLOBIN 29.2 PG (27.0-31.0); MEAN CORPUSCULAR HGB CONC 31.8 G/DL (32.0-36.0); MEAN CORPUSCULAR VOLUME 92 FL (80-99); MEAN PLATELET VOLUME 8.5 FL (6.5-10.1); PLATELET COUNT 286 K/UL (150-450); RED BLOOD COUNT 3.62 M/UL (4.20-5.40); RED CELL DISTRIBUTION WIDTH 14.4 % (11.6-14.8); WHITE BLOOD COUNT 10.3 K/UL (4.8-10.8)
[2017-07-24 07:17] LABS: ALANINE AMINOTRANSFERASE 17 U/L (12-78); ALBUMIN/GLOBULIN RATIO 0.6 (1.0-2.7); ANION GAP 3 (5-15); ASPARTATE AMINO TRANSFERASE 13 U/L (15-37); CALCIUM 8.4 MG/DL (8.5-10.1); CARBON DIOXIDE 37 MMOL/L (21-32); CHLORIDE 96 MMOL/L (98-107); CREATININE 1.2 MG/DL (0.55-1.30); GLOMERULAR FILTRATION RATE 55.8 mL/min (>60); MAGNESIUM 1.4 MG/DL (1.8-2.4); SODIUM 136 MMOL/L (136-145); TOTAL PROTEIN 6.1 G/DL (6.4-8.2)
--- NOTE | 2017-07-24 07:44 | General Progress Note ---
Assessment/Plan Problem List: (1) Acute dyspnea (2) Diabetes mellitus ICD Codes: E11.9 - Diabetes mellitus SNOMED: 50456724 (3) Hypertension, malignant ICD Codes: I10 - Hypertension, malignant SNOMED: 57895230 (4) COPD exacerbation ICD Codes: J44.1 - COPD exacerbation SNOMED: 526401855 (5) CHF (6) Hypercapnia ICD Codes: R06.89 - Other abnormalities of breathing SNOMED: 07712706 (7) Pneumonia ICD Codes: J18.9 - Pneumonia, unspecified organism SNOMED: 948192578 Qualifiers: Qualified Codes: J18.1 - Lobar pneumonia, unspecified organism Status: stable, progressing Assessment/Plan vent wean per pulm resp rx decreased steroids iv lasix white for strict I and o monitoring replace lytes abx per ID dvt/stress ulcer prophylaxis insulin adjusted start feeds Subjective ROS Limited/Unobtainable: No Constitutional: Reports: malaise, weakness HEENT: Reports: no symptoms Cardiovascular: Reports: no symptoms Respiratory: Reports: shortness of breath, wheezing Gastrointestinal/Abdominal: Reports: no symptoms Genitourinary: Reports: no symptoms Neurologic/Psychiatric: Reports: no symptoms Endocrine: Reports: no symptoms Hematologic/Lymphatic: Reports: anemia Allergies: Coded Allergies: AMOXICILLIN (Verified Allergy, Mild, RASH HIVES, 09/29/13) CODEINE (Verified Allergy, Mild, RASH/HIVES, 09/29/13) IODINE (Verified Allergy, Unknown, 09/29/13) PENICILLINS (Verified Allergy, Unknown, RASH HIVES, 09/29/13) All Systems: reviewed and negative except above Subjective on the vent. agitated. no fevers. on iv steroids and resp rx atc. on iv abx. 2l output after placement of white. more comfortable. slightly increased wheezing. Objective Last 24 Hour Vital Signs Date Time Temp Pulse Resp B/P (MAP) Pulse Ox O2 Delivery O2 Flow Rate FiO2 07/24/17 07:30 71 30 125/59 98 Mechanical Ventilator 50 07/24/17 07:10 90 30 50 07/24/17 07:00 89 30 127/66 100 Mechanical Ventilator 60 07/24/17 07:00 30 07/24/17 06:30 97 30 125/60 100 Mechanical Ventilator 60 07/24/17 06:11 92 122/61 07/24/17 06:00 96 30 150/65 100 Mechanical Ventilator 60 07/24/17 06:00 30 07/24/17 05:30 91 30 122/60 100 Mechanical Ventilator 60 07/24/17 05:29 92 30 60 07/24/17 05:00 30 07/24/17 05:00 102 30 122/61 100 Mechanical Ventilator 60 07/24/17 04:30 98 30 108/56 100 Mechanical Ventilator 60 07/24/17 04:00 30 07/24/17 04:00 97 07/24/17 04:00 60 07/24/17 04:00 98.1 92 30 113/52 100 Mechanical Ventilator 60 07/24/17 03:30 95 30 118/56 100 Mechanical Ventilator 60 07/24/17 03:27 91 28 60 07/24/17 03:00 30 07/24/17 03:00 98 30 118/62 100 Mechanical Ventilator 60 07/24/17 02:35 30 07/24/17 02:30 99 30 143/60 100 Mechanical Ventilator 60 07/24/17 02:00 102 30 129/58 100 Mechanical Ventilator 60 07/24/17 02:00 30 07/24/17 01:30 101 30 128/67 100 Mechanical Ventilator 60 07/24/17 01:16 104 42 60 07/24/17 01:10 98.7 07/24/17 01:00 104 30 140/62 100 Mechanical Ventilator 60 07/24/17 01:00 30 07/24/17 01:00 30 07/24/17 00:30 106 30 139/63 100 Mechanical Ventilator 60 07/24/17 00:01 107 140/64 07/24/17 00:00 109 07/24/17 00:00 60 07/24/17 00:00 98.7 101 30 139/66 100 Mechanical Ventilator 60 07/24/17 00:00 30 07/23/17 23:30 111 30 137/74 100 Mechanical Ventilator 60 07/23/17 23:23 107 30 60 07/23/17 23:00 108 30 134/69 100 Mechanical Ventilator 60 07/23/17 23:00 30 07/23/17 22:30 104 30 143/73 100 Mechanical Ventilator 60 07/23/17 22:04 30 07/23/17 22:00 104 30 140/64 100 Mechanical Ventilator 60 07/23/17 21:30 102 30 134/68 100 Mechanical Ventilator 60 07/23/17 21:06 108 27 60 07/23/17 21:00 104 30 143/81 100 Mechanical Ventilator 60 07/23/17 20:55 101 139/66 07/23/17 20:00 60 07/23/17 20:00 98.7 101 30 139/66 100 Mechanical Ventilator 60 07/23/17 20:00 102 07/23/17 19:08 107 30 60 07/23/17 19:00 104 30 137/69 100 Mechanical Ventilator 60 07/23/17 18:00 99 30 120/61 100 Mechanical Ventilator 60 07/23/17 17:00 30 07/23/17 17:00 106 30 139/74 100 Mechanical Ventilator 60 07/23/17 16:45 108 30 60 07/23/17 16:00 98.8 102 30 123/62 100 Mechanical Ventilator 60 07/23/17 16:00 60 07/23/17 16:00 30 07/23/17 16:00 76 07/23/17 15:00 105 30 130/56 99 Mechanical Ventilator 60 07/23/17 15:00 102 30 60 07/23/17 15:00 30 07/23/17 14:00 97 30 158/86 98 Mechanical Ventilator 60 07/23/17 13:56 30 07/23/17 13:20 118 30 60 07/23/17 13:00 126 30 158/86 92 Mechanical Ventilator 60 07/23/17 12:00 129 07/23/17 12:00 98.5 111 30 167/87 100 Mechanical Ventilator 60 07/23/17 12:00 60 07/23/17 12:00 30 07/23/17 11:22 99 30 60 07/23/17 11:00 109 30 147/76 99 Mechanical Ventilator 60 07/23/17 11:00 30 07/23/17 10:35 30 07/23/17 10:00 110 30 140/71 100 Mechanical Ventilator 60 07/23/17 10:00 30 07/23/17 09:18 125 30 60 07/23/17 09:00 30 07/23/17 09:00 101 30 144/87 100 Mechanical Ventilator 60 07/23/17 08:36 156/90 07/23/17 08:35 128 156/90 07/23/17 08:26 30 07/23/17 08:00 60 07/23/17 08:00 30 07/23/17 08:00 129 07/23/17 08:00 98.9 128 30 156/90 100 Mechanical Ventilator 60 Laboratory Tests 07/23/17 11:35: Vancomycin Level Trough 18.3H 07/24/17 05:10: White Blood Count 10.3, Red Blood Count 3.62L, Hemoglobin 10.6L, Hematocrit 33.3L, Mean Corpuscular Volume 92, Mean Corpuscular Hemoglobin 29.2, Mean Corpuscular Hemoglobin Concent 31.8L, Red Cell Distribution Width 14.4, Platelet Count 286, Mean Platelet Volume 8.5, Neutrophils (%) (Auto) , Lymphocytes (%) (Auto) , Monocytes (%) (Auto) , Eosinophils (%) (Auto) , Basophils (%) (Auto) , Neutrophils % (Manual) [Pending], Lymphocytes % (Manual) [Pending], Platelet Estimate [Pending], Platelet Morphology [Pending], Sodium Level 136, Potassium Level 3.0L, Chloride Level 96L, Carbon Dioxide Level 37H, Anion Gap 3L, Blood Urea Nitrogen 26H, Creatinine 1.2, Estimat Glomerular Filtration Rate 55.8, Glucose Level 228H, Calcium Level 8.4L, Magnesium Level 1.4L, Total Bilirubin 0.4, Aspartate Amino Transf (AST/SGOT) 13L, Alanine Aminotransferase (ALT/SGPT) 17, Alkaline Phosphatase 64, Pro-B-Type Natriuretic Peptide [Pending], Total Protein 6.1L, Albumin 2.4L, Globulin 3.7, Albumin/ Globulin Ratio 0.6L Height (Feet): 5 Weight (Pounds): 199 Objective General Appearance: WD/WN, calm Neck: supple Cardiovascular: normal rate Respiratory/Chest: lungs mostly clear. few wheezes noted Abdomen: normal bowel sounds, non tender, soft, no organomegaly Edema: no edema noted Arm (L), no edema noted Arm (R), no edema noted Leg (L), no edema noted Leg (R), no edema noted Pedal (L), no edema noted Pedal (R), no edema noted Generalized Neurologic: disoriented CRISTIANA BROCK Jul 24, 2017 07:44
[2017-07-24] MEDS ORDERED: KCl 10% 40mEq/30ml liquid NG ONE ×2 (08:30→12:00)
[2017-07-24] MEDS ORDERED: LORazepam Inj 2mg/ml 1ml IV PRN (09:00)
[2017-07-24 09:15] LABS: BAND NEUTROPHILS % (MANUAL) 0 % (0-8); BASOPHILS % (MANUAL) 0 % (0-2); EOSINOPHILS % (MANUAL) 0 % (0-3); HYPOCHROMASIA 1+; LYMPHOCYTES % (MANUAL) 9 % (20-45); NEUTROPHILS % (MANUAL) 89 % (45-75); PLATELET ESTIMATE ADEQUATE; PLATELET MORPHOLOGY NORMAL; TOTAL CELLS COUNTED 100
[2017-07-24] MEDS: Amiodarone 200mg tab ORAL SCH ×2 (09:19→17:13)
[2017-07-24] MEDS: Losartan 50mg tab ORAL SCH (09:19)
[2017-07-24] MEDS: Sertraline 100mg tab ORAL SCH (09:19)
[2017-07-24 09:20] LABS: ABG ALLEN TEST POSITIVE; ABG PCO2 65.5 mmHg (35.0-45.0)
[2017-07-24] MEDS: Docusate 100mg cap ORAL SCH ×2 (09:20→17:17)
[2017-07-24] MEDS: Eliquis 2.5mg tablet ORAL SCH ×2 (09:20→17:14)
[2017-07-24] MEDS: Solu-MEDROL 125mg Inj IVP SCH ×2 (09:30→20:49)
[2017-07-24] MEDS: Cefepime HCl 1 GM in D5W 55 ML IVPB SCH ×2 (09:31→20:48)
[2017-07-24] MEDS: Levemir Flexpen SUBQ SCH ×2 (09:55→17:16)
--- NOTE | 2017-07-24 11:42 | Diagnostic Imaging Report ---
Indication: SOB Technique: One view of the chest Comparison: 07/22/2017 Findings: Endotracheal tube is difficult to visualize, probably at the thoracic inlet. Nasogastric tube remains in stable satisfactory position. Bilateral basilar infiltrates persists, unchanged on the right, perhaps minimally improved on the left. Upper lung vidal remain clear. Heart remains enlarged. There is probably a small amount of pleural fluid bilaterally Impression: Stable or slightly improved left, stable right basilar infiltrates, over 2 days Other findings as noted
[2017-07-24] MEDS: Vancomycin 1250mg/D5W 250ml IVPB SCH ×2 (12:14→23:33)
[2017-07-24] MEDS: NovoLOG Insulin Flexpen SUBQ SCH ×3 (12:21→20:47)
--- NOTE | 2017-07-24 12:39 | Infectious Diseases Prog Note ---
Assessment/Plan Assessment/Plan A 1. pneumonia 2. COPD exacerbation 3. respiratory failure, hypercapnic 4. DM 5. Anemia P 1. continue vancomycin iv, cefepime 2. will follow up cultures Subjective ROS Limited/Unobtainable: Yes Constitutional: Reports: no symptoms Respiratory: Reports: other - extubated today Neurologic: Reports: other - drowsy Allergies: Coded Allergies: AMOXICILLIN (Verified Allergy, Mild, RASH HIVES, 09/29/13) CODEINE (Verified Allergy, Mild, RASH/HIVES, 09/29/13) IODINE (Verified Allergy, Unknown, 09/29/13) PENICILLINS (Verified Allergy, Unknown, RASH HIVES, 09/29/13) Objective Vital Signs Last 24 Hour Vital Signs Date Time Temp Pulse Resp B/P (MAP) Pulse Ox O2 Delivery O2 Flow Rate FiO2 07/24/17 12:17 98 118/68 07/24/17 12:00 98.5 101 24 118/66 91 Venturi Mask 3.0 28 07/24/17 11:00 95 27 121/56 91 Venturi Mask 3.0 28 07/24/17 10:00 106 28 116/52 90 Venturi Mask 3.0 28 07/24/17 09:32 Non-Rebreather 15.0 100 07/24/17 09:19 126/66 07/24/17 09:00 98 28 126/66 95 Non-Rebreather 100 07/24/17 08:05 102 28 157/66 100 Non-Rebreather 100 07/24/17 08:00 50 07/24/17 08:00 98.5 71 30 157/66 100 Mechanical Ventilator 50 07/24/17 08:00 102 07/24/17 07:30 71 30 125/59 98 Mechanical Ventilator 50 07/24/17 07:10 90 30 50 07/24/17 07:00 89 30 127/66 100 Mechanical Ventilator 60 07/24/17 07:00 30 07/24/17 06:30 97 30 125/60 100 Mechanical Ventilator 60 07/24/17 06:11 92 122/61 07/24/17 06:00 96 30 150/65 100 Mechanical Ventilator 60 07/24/17 06:00 30 07/24/17 05:30 91 30 122/60 100 Mechanical Ventilator 60 07/24/17 05:29 92 30 60 07/24/17 05:00 30 07/24/17 05:00 102 30 122/61 100 Mechanical Ventilator 60 07/24/17 04:30 98 30 108/56 100 Mechanical Ventilator 60 07/24/17 04:00 30 07/24/17 04:00 97 07/24/17 04:00 60 07/24/17 04:00 98.1 92 30 113/52 100 Mechanical Ventilator 60 07/24/17 03:30 95 30 118/56 100 Mechanical Ventilator 60 07/24/17 03:27 91 28 60 07/24/17 03:00 30 07/24/17 03:00 98 30 118/62 100 Mechanical Ventilator 60 07/24/17 02:35 30 07/24/17 02:30 99 30 143/60 100 Mechanical Ventilator 60 07/24/17 02:00 102 30 129/58 100 Mechanical Ventilator 60 07/24/17 02:00 30 07/24/17 01:30 101 30 128/67 100 Mechanical Ventilator 60 07/24/17 01:16 104 42 60 07/24/17 01:10 98.7 07/24/17 01:00 104 30 140/62 100 Mechanical Ventilator 60 07/24/17 01:00 30 07/24/17 01:00 30 07/24/17 00:30 106 30 139/63 100 Mechanical Ventilator 60 07/24/17 00:01 107 140/64 07/24/17 00:00 109 07/24/17 00:00 60 07/24/17 00:00 98.7 101 30 139/66 100 Mechanical Ventilator 60 07/24/17 00:00 30 07/23/17 23:30 111 30 137/74 100 Mechanical Ventilator 60 07/23/17 23:23 107 30 60 07/23/17 23:00 108 30 134/69 100 Mechanical Ventilator 60 07/23/17 23:00 30 07/23/17 22:30 104 30 143/73 100 Mechanical Ventilator 60 07/23/17 22:04 30 07/23/17 22:00 104 30 140/64 100 Mechanical Ventilator 60 07/23/17 21:30 102 30 134/68 100 Mechanical Ventilator 60 07/23/17 21:06 108 27 60 07/23/17 21:00 104 30 143/81 100 Mechanical Ventilator 60 07/23/17 20:55 101 139/66 07/23/17 20:00 60 07/23/17 20:00 98.7 101 30 139/66 100 Mechanical Ventilator 60 07/23/17 20:00 102 07/23/17 19:08 107 30 60 07/23/17 19:00 104 30 137/69 100 Mechanical Ventilator 60 07/23/17 18:00 99 30 120/61 100 Mechanical Ventilator 60 07/23/17 17:00 30 07/23/17 17:00 106 30 139/74 100 Mechanical Ventilator 60 07/23/17 16:45 108 30 60 07/23/17 16:00 98.8 102 30 123/62 100 Mechanical Ventilator 60 07/23/17 16:00 60 07/23/17 16:00 30 07/23/17 16:00 76 07/23/17 15:00 105 30 130/56 99 Mechanical Ventilator 60 07/23/17 15:00 102 30 60 07/23/17 15:00 30 07/23/17 14:00 97 30 158/86 98 Mechanical Ventilator 60 07/23/17 13:56 30 07/23/17 13:20 118 30 60 07/23/17 13:00 126 30 158/86 92 Mechanical Ventilator 60 Height (Feet): 5 Weight (Pounds): 199 General Appearance: no acute distress, other - obese HEENT: mucous membranes moist Respiratory/Chest: other - few rhonchi, O2 by mask Cardiovascular: normal rate Abdomen: soft, non tender Extremities: no edema, other - scar of sugery on right knee Neurologic/Psychiatric: alert, responsive Microbiology Date/Time Source Procedure Growth Status 07/22/17 00:15 Blood Blood Culture - Preliminary NO GROWTH AFTER 48 HOURS Resulted 07/22/17 00:00 Blood Blood Culture - Preliminary NO GROWTH AFTER 48 HOURS Resulted 07/22/17 17:30 Sputum Gram Stain - Final Resulted 07/22/17 17:30 Sputum Sputum Culture - Preliminary Resulted 07/22/17 00:15 Rectum VRE Culture - Final NO VANCOMYCIN RESISTANT ENTEROCOCCUS ... Complete Laboratory Tests Test 07/24/17 05:10 07/24/17 09:10 White Blood Count 10.3 K/UL (4.8-10.8) Red Blood Count 3.62 M/UL (4.20-5.40) L Hemoglobin 10.6 G/DL (12.0-16.0) L Hematocrit 33.3 % (37.0-47.0) L Mean Corpuscular Volume 92 FL (80-99) Mean Corpuscular Hemoglobin 29.2 PG (27.0-31.0) Mean Corpuscular Hemoglobin Concent 31.8 G/DL (32.0-36.0) L Red Cell Distribution Width 14.4 % (11.6-14.8) Platelet Count 286 K/UL (150-450) Mean Platelet Volume 8.5 FL (6.5-10.1) Neutrophils (%) (Auto) % (45.0-75.0) Lymphocytes (%) (Auto) % (20.0-45.0) Monocytes (%) (Auto) % (1.0-10.0) Eosinophils (%) (Auto) % (0.0-3.0) Basophils (%) (Auto) % (0.0-2.0) Differential Total Cells Counted 100 Neutrophils % (Manual) 89 % (45-75) H Lymphocytes % (Manual) 9 % (20-45) L Monocytes % (Manual) 2 % (1-10) Eosinophils % (Manual) 0 % (0-3) Basophils % (Manual) 0 % (0-2) Band Neutrophils 0 % (0-8) Platelet Estimate Adequate Platelet Morphology Normal Hypochromasia 1+ Sodium Level 136 MMOL/L (136-145) Potassium Level 3.0 MMOL/L (3.5-5.1) L Chloride Level 96 MMOL/L (98-107) L Carbon Dioxide Level 37 MMOL/L (21-32) H Anion Gap 3 (5-15) L Blood Urea Nitrogen 26 mg/dL (7-18) H Creatinine 1.2 MG/DL (0.55-1.30) Estimat Glomerular Filtration Rate 55.8 mL/min (>60) Glucose Level 228 MG/DL (74-106) H Calcium Level 8.4 MG/DL (8.5-10.1) L Magnesium Level 1.4 MG/DL (1.8-2.4) L Total Bilirubin 0.4 MG/DL (0.2-1.0) Aspartate Amino Transf (AST/SGOT) 13 U/L (15-37) L Alanine Aminotransferase (ALT/SGPT) 17 U/L (12-78) Alkaline Phosphatase 64 U/L (46-116) Pro-B-Type Natriuretic Peptide 2522 (0-125) H Total Protein 6.1 G/DL (6.4-8.2) L Albumin 2.4 G/DL (3.4-5.0) L Globulin 3.7 g/dL Albumin/Globulin Ratio 0.6 (1.0-2.7) L Arterial Blood pH 7.375 (7.350-7.450) Arterial Blood Partial Pressure CO2 65.5 mmHg (35.0-45.0) *H Arterial Blood Partial Pressure O2 306.2 mmHg (75.0-100.0) H Arterial Blood HCO3 37.4 mmol/L (22.0-26.0) H Arterial Blood Oxygen Saturation 99.5 % (92.0-98.0) H Arterial Blood Base Excess 10.0 Rico Test Positive Current Medications Medications (Trade) Dose Ordered Sig/Sera Route PRN Reason Start Time Stop Time Status Last Admin Dose Admin Amiodarone HCl (Cordarone) 200 mg BID ORAL 07/22/17 09:00 08/21/17 08:59 07/24/17 09:19 Apixaban (Eliquis) 5 mg BID ORAL 07/22/17 09:00 08/21/17 08:59 07/24/17 09:20 Atorvastatin Calcium (Lipitor) 20 mg BEDTIME ORAL 07/22/17 21:00 08/21/17 20:59 07/23/17 20:56 Cefepime HCl 1 gm/ Dextrose 55 ml @ 110 mls/hr EVERY 12 HOURS IVPB 07/22/17 11:00 07/29/17 10:59 07/24/17 09:31 Clonidine HCl (Catapres) 0.1 mg Q4HR PRN ORAL For High Blood Pressure 07/22/17 05:45 08/21/17 05:44 Dextrose (Dextrose 50%) STAT PRN IV Hypoglycemia 07/24/17 07:45 08/23/17 07:44 Diltiazem HCl (Cardizem) 90 mg EVERY 6 HOURS ORAL 07/24/17 00:00 08/21/17 08:59 07/24/17 12:17 Docusate Sodium (Colace) 100 mg TWICE A DAY ORAL 07/22/17 09:00 08/21/17 08:59 07/24/17 09:20 Furosemide (Lasix) 40 mg DAILY IV 07/23/17 14:00 08/22/17 13:59 07/23/17 14:15 Insulin Aspart (NovoLOG) BEFORE MEALS AND HS SUBQ 07/24/17 11:30 08/23/17 11:29 07/24/17 12:21 Insulin Detemir (Levemir) 10 units BID SUBQ 07/24/17 09:00 08/21/17 08:59 07/24/17 09:55 Lorazepam (Ativan 2mg/ml 1ml) 1 mg Q3H PRN IV Breakthrough Anxiety/Agitation 07/24/17 09:00 07/31/17 08:59 Losartan Potassium (Cozaar) 100 mg DAILY ORAL 07/22/17 09:00 08/21/17 08:59 07/24/17 09:19 Metformin HCl (Glucophage) 500 mg TIAC ORAL 07/22/17 06:30 08/21/17 06:29 07/24/17 12:17 Methylprednisolone Sodium Succinate (Solu-MEDROL) 60 mg Q12HR IVP 07/23/17 21:00 08/21/17 05:59 07/24/17 09:30 Midazolam HCl 100 ml @ 0 mls/hr Q24H PRN IVPB Agitation 07/22/17 09:15 08/21/17 09:14 07/24/17 02:35 Pantoprazole (Protonix) 40 mg DAILY ORAL 07/22/17 10:00 08/21/17 09:59 07/24/17 09:18 Promethazine HCl/ Codeine (Phenergan with Codeine) 5 ml Q4H PRN ORAL For Cough 07/22/17 05:45 08/21/17 05:44 Sertraline HCl (Zoloft) 100 mg DAILY ORAL 07/22/17 09:00 08/21/17 08:59 07/24/17 09:19 Temazepam (Restoril) 30 mg HSPRN PRN ORAL Insomnia 07/22/17 05:45 07/29/17 05:44 Vancomycin HCl (Vanco rx to dose) 1 ea DAILY PRN MISC Per rx protocol 07/22/17 10:45 08/21/17 10:44 Vancomycin HCl/ Dextrose 250 ml @ 166.667 mls/hr Q12HR@0000,1200 IVPB 07/22/17 12:00 07/27/17 11:59 07/24/17 12:14 MIGUEL GILL Jul 24, 2017 12:39
--- NOTE | 2017-07-24 16:39 | Critical Care Progress Note ---
Assessment/Plan Assessment/Plan IMPRESSION: 1. Respiratory failure, acute on chronic. 2. Acute on chronic carbon dioxide retention. 3. Chronic hypercapnia. 4. Chronic hypoxemia. 5. Chronic obstructive pulmonary disease with acute exacerbation. 6. Congestive heart failure per history. 7. Obstructive sleep apnea per history. 8. Metabolic alkalosis due to compensatory needs. 9. Hyperkalemia. 10. Hyperglycemia and diabetes. 11. History cancer. 12. History of congestive heart failure. PLAN care noted IV antibiotics ID noted respiratory care as is Ventilatory support off SNF meds supportive care suction as needed stabilize oxygen therapy prognosis guarded keep negative nutrition medications/laboratory data/nursing notes/ICU care reviewed in detail note reviewed and edited care discussed with RN and RT ICU time spent 38 minutes Critical Care - Subjective Interval Events: self extubated (seen earlier) awake and wants to eat ICU care reviewed d/w nursing ROS Limited/Unobtainable: Yes Condition: improving EKG Rhythm: Sinus Rhythm I&O: Intake and Output 07/24/17 07/25/17 19:00 07:00 Intake Total 685.000 ml Output Total 785 ml Balance -100.000 ml Intake Oral 30 ml Free Water 30 ml IV Total 605.000 ml Tube Feeding 20 ml Output Urine Total 785 ml Critical Care - Objective ET-Tube: 7.0 ET Position: 24 Last 24 Hour Vital Signs Date Time Temp Pulse Resp B/P (MAP) Pulse Ox O2 Delivery O2 Flow Rate FiO2 07/24/17 16:00 98.6 101 25 112/42 94 Venturi Mask 3.0 28 07/24/17 15:00 98 27 110/49 93 Venturi Mask 3.0 28 07/24/17 14:00 99 27 100/52 96 Venturi Mask 3.0 28 07/24/17 13:00 103 27 107/58 92 Venturi Mask 3.0 28 07/24/17 12:17 98 118/68 07/24/17 12:00 96 07/24/17 12:00 98.5 101 24 118/66 91 Venturi Mask 3.0 28 07/24/17 11:00 95 27 121/56 91 Venturi Mask 3.0 28 07/24/17 10:00 106 28 116/52 90 Venturi Mask 3.0 28 07/24/17 09:32 Non-Rebreather 15.0 100 07/24/17 09:19 126/66 07/24/17 09:00 98 28 126/66 95 Non-Rebreather 100 07/24/17 08:05 102 28 157/66 100 Non-Rebreather 100 07/24/17 08:00 50 07/24/17 08:00 98.5 71 30 157/66 100 Mechanical Ventilator 50 07/24/17 08:00 102 07/24/17 07:30 71 30 125/59 98 Mechanical Ventilator 50 07/24/17 07:10 90 30 50 07/24/17 07:00 89 30 127/66 100 Mechanical Ventilator 60 07/24/17 07:00 30 07/24/17 06:30 97 30 125/60 100 Mechanical Ventilator 60 07/24/17 06:11 92 122/61 07/24/17 06:00 96 30 150/65 100 Mechanical Ventilator 60 07/24/17 06:00 30 07/24/17 05:30 91 30 122/60 100 Mechanical Ventilator 60 07/24/17 05:29 92 30 60 07/24/17 05:00 30 07/24/17 05:00 102 30 122/61 100 Mechanical Ventilator 60 07/24/17 04:30 98 30 108/56 100 Mechanical Ventilator 60 07/24/17 04:00 30 07/24/17 04:00 97 07/24/17 04:00 60 07/24/17 04:00 98.1 92 30 113/52 100 Mechanical Ventilator 60 07/24/17 03:30 95 30 118/56 100 Mechanical Ventilator 60 07/24/17 03:27 91 28 60 07/24/17 03:00 30 07/24/17 03:00 98 30 118/62 100 Mechanical Ventilator 60 07/24/17 02:35 30 07/24/17 02:30 99 30 143/60 100 Mechanical Ventilator 60 07/24/17 02:00 102 30 129/58 100 Mechanical Ventilator 60 07/24/17 02:00 30 07/24/17 01:30 101 30 128/67 100 Mechanical Ventilator 60 07/24/17 01:16 104 42 60 07/24/17 01:10 98.7 07/24/17 01:00 104 30 140/62 100 Mechanical Ventilator 60 07/24/17 01:00 30 07/24/17 01:00 30 07/24/17 00:30 106 30 139/63 100 Mechanical Ventilator 60 07/24/17 00:01 107 140/64 07/24/17 00:00 109 07/24/17 00:00 60 07/24/17 00:00 98.7 101 30 139/66 100 Mechanical Ventilator 60 07/24/17 00:00 30 07/23/17 23:30 111 30 137/74 100 Mechanical Ventilator 60 07/23/17 23:23 107 30 60 07/23/17 23:00 108 30 134/69 100 Mechanical Ventilator 60 07/23/17 23:00 30 07/23/17 22:30 104 30 143/73 100 Mechanical Ventilator 60 07/23/17 22:04 30 07/23/17 22:00 104 30 140/64 100 Mechanical Ventilator 60 07/23/17 21:30 102 30 134/68 100 Mechanical Ventilator 60 07/23/17 21:06 108 27 60 07/23/17 21:00 104 30 143/81 100 Mechanical Ventilator 60 07/23/17 20:55 101 139/66 07/23/17 20:00 60 07/23/17 20:00 98.7 101 30 139/66 100 Mechanical Ventilator 60 07/23/17 20:00 102 07/23/17 19:08 107 30 60 07/23/17 19:00 104 30 137/69 100 Mechanical Ventilator 60 07/23/17 18:00 99 30 120/61 100 Mechanical Ventilator 60 07/23/17 17:00 30 07/23/17 17:00 106 30 139/74 100 Mechanical Ventilator 60 07/23/17 16:45 108 30 60 Labs: Labs Test 07/21/17 20:50 07/21/17 23:29 07/22/17 00:25 07/22/17 01:55 White Blood Count 9.2 K/UL (4.8-10.8) Red Blood Count 3.67 M/UL (4.20-5.40) Hemoglobin 10.0 G/DL (12.0-16.0) Hematocrit 35.8 % (37.0-47.0) Mean Corpuscular Volume 98 FL (80-99) Mean Corpuscular Hemoglobin 27.4 PG (27.0-31.0) Mean Corpuscular Hemoglobin Concent 28.1 G/DL (32.0-36.0) Red Cell Distribution Width 14.9 % (11.6-14.8) Platelet Count 282 K/UL (150-450) Mean Platelet Volume 7.3 FL (6.5-10.1) Neutrophils (%) (Auto) 73.0 % (45.0-75.0) Lymphocytes (%) (Auto) 19.3 % (20.0-45.0) Monocytes (%) (Auto) 5.7 % (1.0-10.0) Eosinophils (%) (Auto) 0.2 % (0.0-3.0) Basophils (%) (Auto) 1.9 % (0.0-2.0) Sodium Level 144 MMOL/L (136-145) Potassium Level 5.2 MMOL/L (3.5-5.1) Chloride Level 101 MMOL/L (98-107) Carbon Dioxide Level 41 MMOL/L (21-32) Anion Gap 2 (5-15) Blood Urea Nitrogen 22 mg/dL (7-18) Creatinine 0.7 MG/DL (0.55-1.30) Estimat Glomerular Filtration Rate > 60 mL/min (>60) Glucose Level 124 MG/DL (74-106) Calcium Level 9.0 MG/DL (8.5-10.1) Total Bilirubin 0.2 MG/DL (0.2-1.0) Aspartate Amino Transf (AST/SGOT) 20 U/L (15-37) Alanine Aminotransferase (ALT/SGPT) 19 U/L (12-78) Alkaline Phosphatase 70 U/L (46-116) Total Creatine Kinase 45 U/L (26-308) Creatine Kinase MB 1.0 NG/ML (0.0-3.6) Creatine Kinase MB Relative Index 2.2 Troponin I 0.004 ng/mL (0.000-0.056) Pro-B-Type Natriuretic Peptide 455 (0-125) Total Protein 6.4 G/DL (6.4-8.2) Albumin 2.9 G/DL (3.4-5.0) Globulin 3.5 g/dL Albumin/Globulin Ratio 0.8 (1.0-2.7) Digoxin Level 0.7 NG/ML (0.9-2.0) Arterial Blood pH 7.245 (7.350-7.450) 7.264 (7.350-7.450) 7.265 (7.350-7.450) Arterial Blood Partial Pressure CO2 104.0 mmHg (35.0-45.0) 91.9 mmHg (35.0-45.0) 99.6 mmHg (35.0-45.0) Arterial Blood Partial Pressure O2 124.6 mmHg (75.0-100.0) 64.9 mmHg (75.0-100.0) 70.3 mmHg (75.0-100.0) Arterial Blood HCO3 44.1 mmol/L (22.0-26.0) 40.7 mmol/L (22.0-26.0) 44.2 mmol/L (22.0-26.0) Arterial Blood Base Excess 13.2 10.7 13.9 Rico Test Positive Positive Positive Arterial Blood Oxygen Saturation 89.3 % (92.0-98.0) 91.9 % (92.0-98.0) Test 07/22/17 04:45 07/22/17 12:30 07/23/17 05:15 07/23/17 11:35 Arterial Blood pH 7.405 (7.350-7.450) Arterial Blood Partial Pressure CO2 65.5 mmHg (35.0-45.0) Arterial Blood Partial Pressure O2 132.5 mmHg (75.0-100.0) Arterial Blood HCO3 40.1 mmol/L (22.0-26.0) Arterial Blood Oxygen Saturation 98.4 % (92.0-98.0) Arterial Blood Base Excess 13.1 Rico Test Positive Triglycerides Level 56 MG/DL (0-200) Sodium Level 133 MMOL/L (136-145) Potassium Level 3.3 MMOL/L (3.5-5.1) Chloride Level 94 MMOL/L (98-107) Carbon Dioxide Level 35 MMOL/L (21-32) Anion Gap 4 (5-15) Blood Urea Nitrogen 20 mg/dL (7-18) Creatinine 0.9 MG/DL (0.55-1.30) Estimat Glomerular Filtration Rate > 60 mL/min (>60) Glucose Level 268 MG/DL (74-106) Calcium Level 8.4 MG/DL (8.5-10.1) Total Bilirubin 0.4 MG/DL (0.2-1.0) Aspartate Amino Transf (AST/SGOT) 13 U/L (15-37) Alanine Aminotransferase (ALT/SGPT) 20 U/L (12-78) Alkaline Phosphatase 77 U/L (46-116) Total Protein 6.9 G/DL (6.4-8.2) Albumin 2.7 G/DL (3.4-5.0) Globulin 4.2 g/dL Albumin/Globulin Ratio 0.6 (1.0-2.7) Vancomycin Level Trough 18.3 ug/mL (5.0-12.0) Test 07/24/17 05:10 07/24/17 09:10 White Blood Count 10.3 K/UL (4.8-10.8) Red Blood Count 3.62 M/UL (4.20-5.40) Hemoglobin 10.6 G/DL (12.0-16.0) Hematocrit 33.3 % (37.0-47.0) Mean Corpuscular Volume 92 FL (80-99) Mean Corpuscular Hemoglobin 29.2 PG (27.0-31.0) Mean Corpuscular Hemoglobin Concent 31.8 G/DL (32.0-36.0) Red Cell Distribution Width 14.4 % (11.6-14.8) Platelet Count 286 K/UL (150-450) Mean Platelet Volume 8.5 FL (6.5-10.1) Neutrophils (%) (Auto) % (45.0-75.0) Lymphocytes (%) (Auto) % (20.0-45.0) Monocytes (%) (Auto) % (1.0-10.0) Eosinophils (%) (Auto) % (0.0-3.0) Basophils (%) (Auto) % (0.0-2.0) Differential Total Cells Counted 100 Neutrophils % (Manual) 89 % (45-75) Lymphocytes % (Manual) 9 % (20-45) Monocytes % (Manual) 2 % (1-10) Eosinophils % (Manual) 0 % (0-3) Basophils % (Manual) 0 % (0-2) Band Neutrophils 0 % (0-8) Platelet Estimate Adequate Platelet Morphology Normal Hypochromasia 1+ Sodium Level 136 MMOL/L (136-145) Potassium Level 3.0 MMOL/L (3.5-5.1) Chloride Level 96 MMOL/L (98-107) Carbon Dioxide Level 37 MMOL/L (21-32) Anion Gap 3 (5-15) Blood Urea Nitrogen 26 mg/dL (7-18) Creatinine 1.2 MG/DL (0.55-1.30) Estimat Glomerular Filtration Rate 55.8 mL/min (>60) Glucose Level 228 MG/DL (74-106) Calcium Level 8.4 MG/DL (8.5-10.1) Magnesium Level 1.4 MG/DL (1.8-2.4) Total Bilirubin 0.4 MG/DL (0.2-1.0) Aspartate Amino Transf (AST/SGOT) 13 U/L (15-37) Alanine Aminotransferase (ALT/SGPT) 17 U/L (12-78) Alkaline Phosphatase 64 U/L (46-116) Pro-B-Type Natriuretic Peptide 2522 (0-125) Total Protein 6.1 G/DL (6.4-8.2) Albumin 2.4 G/DL (3.4-5.0) Globulin 3.7 g/dL Albumin/Globulin Ratio 0.6 (1.0-2.7) Arterial Blood pH 7.375 (7.350-7.450) Arterial Blood Partial Pressure CO2 65.5 mmHg (35.0-45.0) Arterial Blood Partial Pressure O2 306.2 mmHg (75.0-100.0) Arterial Blood HCO3 37.4 mmol/L (22.0-26.0) Arterial Blood Oxygen Saturation 99.5 % (92.0-98.0) Arterial Blood Base Excess 10.0 Rico Test Positive Objective: GENERAL: A well-developed female, extubated. HEENT: Fairly negative. Pupils are sluggish. on oxygen NC NECK: Supple and short. LUNGS: With moderate breath sounds with reduced air entry overall. minimal rhonchi and wheeze CARDIAC: S1 and S2 regular rate and rhythm without murmurs, rubs, or gallops. ABDOMEN: Soft, obese, nontender, rotund. no HSM EXTREMITIES: No cyanosis or clubbing. There is mild edema. NEUROLOGICAL: awake; nonfocal and weak reviewed and edited Micro: Microbiology Date/Time Source Procedure Growth Status 07/22/17 00:15 Blood Blood Culture - Preliminary NO GROWTH AFTER 48 HOURS Resulted 07/22/17 00:00 Blood Blood Culture - Preliminary NO GROWTH AFTER 48 HOURS Resulted 07/22/17 17:30 Sputum Gram Stain - Final Resulted 07/22/17 17:30 Sputum Sputum Culture - Preliminary Resulted 07/22/17 00:15 Rectum VRE Culture - Final NO VANCOMYCIN RESISTANT ENTEROCOCCUS ... Complete Accucheck: 161 OLIVER RAYMOND Jul 24, 2017 16:39
[2017-07-24] MEDS ORDERED: NS 275ml ONE (17:39)
[2017-07-24] MEDS ORDERED: Tubing IV Secondary IV ONE (17:39)
[2017-07-24 19:40] LABS: MYCOPLASMA PNEUMONIAE AB IGG <100 U/mL (0-99); MYCOPLASMA PNEUMONIAE AB IGM <770 U/mL (0-769)
[2017-07-24] MEDS: Atorvastatin 20mg tab ORAL SCH (20:44)
[2017-07-24 21:10] LABS: L.PNEUMOPHILIA SERO-1 <0.91 OD ratio (0.00-0.90)
--- NOTE | 2017-07-24 22:01 | Progress Note ---
DATE: 07/24/2017 CARDIOLOGY PROGRESS NOTE SUBJECTIVE: The patient remains on ventilator support. Weaning parameters were obtained and weaning efforts are in progress. The patient is on tapering doses of steroids, continuing on diuretics, and has an NG tube for nutrition. She continues on insulin therapy for control of glucose. OBJECTIVE: GENERAL: Again, she is agitated. VITAL SIGNS: Blood pressure 125/59, pulse 71, respiratory rate 30, and 98.1 degrees temperature. HEENT: Nasally intubated. LUNGS: Few rhonchi and expiratory wheezes. HEART: Irregularly irregular rhythm. Normal S1 and S2. A 1/6 apical murmur. ABDOMEN: Soft. EXTREMITIES: Trace edema. LABORATORY DATA: White count 10 and hemoglobin 10.6. ABG, pH 7.37, pCO2 of 65, and pO2 of 306. Pro-natriuretic peptide 2522. BUN 26 and creatinine 1.2. Potassium 3.0. PLAN: 1. Weaning efforts to extubate. BiPAP probably will be needed thereafter. 2. Potassium replacement. 3. Check magnesium. 4. Continue antimicrobials. 5. Taper steroids. 6. Titrate insulin. 7. Diuresis based on clinical parameters. 8. Titrate antihypertensives and anti-failure drugs accordingly. 9. Remains critical and guarded. Werner Martinez M.D. DR: KAYLA JOB#: [id number] CC:
[2017-07-24] MEDS ORDERED: Albuterol/Ipratropium 3ml neb HHN PRN (22:15)
[2017-07-24] MEDS: Albuterol/Ipratropium 3ml neb HHN SCH (22:44)
[2017-07-25] VITALS (19 sets, daily range): BP systolic 95–156; BP diastolic 30–71
[2017-07-25] MEDS: Albuterol/Ipratropium 3ml neb HHN SCH ×2 (02:39→07:00)
[2017-07-25] MEDS: NovoLOG Insulin Flexpen SUBQ SCH ×4 (05:42→22:58)
[2017-07-25] MEDS: dilTIAZem HCl 90mg tab ORAL SCH ×3 (05:45→18:30)
[2017-07-25] MEDS: metFORMIN 500mg tab ORAL SCH ×3 (05:48→16:52)
[2017-07-25 06:15] LABS: MEAN CORPUSCULAR HGB CONC 30.5 G/DL (32.0-36.0); MEAN CORPUSCULAR VOLUME 95 FL (80-99); MEAN PLATELET VOLUME 8.4 FL (6.5-10.1); PLATELET COUNT 228 K/UL (150-450); RED CELL DISTRIBUTION WIDTH 14.5 % (11.6-14.8); WHITE BLOOD COUNT 11.5 K/UL (4.8-10.8)
[2017-07-25 06:31] LABS: ALANINE AMINOTRANSFERASE 16 U/L (12-78); ALBUMIN/GLOBULIN RATIO 0.6 (1.0-2.7); ANION GAP 4 (5-15); ASPARTATE AMINO TRANSFERASE 14 U/L (15-37); CALCIUM 8.6 MG/DL (8.5-10.1); CARBON DIOXIDE 32 MMOL/L (21-32); CHLORIDE 102 MMOL/L (98-107); CREATININE 1.1 MG/DL (0.55-1.30); GLOMERULAR FILTRATION RATE > 60 mL/min (>60); POTASSIUM 4.1 MMOL/L (3.5-5.1); SODIUM 138 MMOL/L (136-145); TOTAL PROTEIN 6.1 G/DL (6.4-8.2)
--- NOTE | 2017-07-25 07:53 | Cardiology Report ---
APPROVED REPORT EXAM: Two-dimensional and M-mode echocardiogram with Doppler and color Doppler. INDICATION Congestive Heart Failure M-Mode DIMENSIONS IVSd1.1 (0.7-1.1cm)Left Atrium (MM)4.0 (1.6-4.0cm) LVDd5.0 (3.5-5.6cm)Aortic Root2.1 (2.0-3.7cm) PWd1.1 (0.7-1.1cm)Aortic Cusp Exc.1.6 (1.5-2.0cm) LVDs3.6 (2.5-4.0cm) PWs1.1 cm Technically difficult study due to poor parasternal acoustical windows. Study quality precludes accurate assessment of regional wall motion. Normal left ventricular chamber size, systolic function and wall motion to extent visualized. Left ventricular ejection fraction estimated to be 55 %. Borderline left ventricular hypertrophy. Anterior Echo-free space, may be due to pericardial fat or effusion. Mild bi-atrial enlargement. Right ventricular chamber size is normal. Mild focal aortic valve sclerosis with adequate cusp excursion. Mildly thickened mitral valve leaflets with normal excursion. Mild mitral annulus and aortic root calcification. Pulmonic valve not well visualized. Normal tricuspid valve structure. IVC at normal size with physiological collapse. A color flow and spectral Doppler study was performed and revealed: No aortic insufficiency. No mitral regurgitation. Left ventricular diastolic function could not be determined due to A-fib. Mild tricuspid regurgitation. Tricuspid systolic velocities suggests peak right ventricular systolic pressure of 40 mmHg, consistent with mild pulmonary hypertension. No pulmonic regurgitation present.
[2017-07-25] MEDS ORDERED: Levalbuterol Inh UD 1.25mg/0.5ml HHN PRN ×2 (08:15→18:15)
--- NOTE | 2017-07-25 08:50 | Critical Care Progress Note ---
Assessment/Plan Assessment/Plan IMPRESSION: 1. Respiratory failure, acute on chronic. 2. Acute on chronic carbon dioxide retention. 3. Chronic hypercapnia. 4. Chronic hypoxemia. 5. Chronic obstructive pulmonary disease with acute exacerbation. 6. Congestive heart failure per history. 7. Obstructive sleep apnea per history. 8. Metabolic alkalosis due to compensatory needs. 9. Hyperkalemia. 10. Hyperglycemia and diabetes. 11. History cancer. 12. History of congestive heart failure. 13. pneumonia PLAN care noted IV antibiotics ID noted respiratory care as is Ventilatory support off and stable SNF meds supportive care suction as needed stabilize oxygen therapy prognosis guarded keep negative nutrition taper solumedrol ok to PARAMJIT medications/laboratory data/nursing notes/ICU care reviewed in detail note reviewed and edited care discussed with RN and RT ICU time spent 37 minutes Critical Care - Subjective Interval Events: improved awake no distress anxious to be discharged Condition: improving EKG Rhythm: Sinus Rhythm I&O: Intake and Output 07/25/17 07/26/17 19:00 07:00 Output Total 100 ml Balance -100 ml Output Urine Total 100 ml Critical Care - Objective CXR: Stable or slightly improved left, stable right basilar infiltrates, over 2 days ET-Tube: 7.0 ET Position: 24 Last 24 Hour Vital Signs Date Time Temp Pulse Resp B/P (MAP) Pulse Ox O2 Delivery O2 Flow Rate FiO2 07/25/17 08:00 98.0 104 25 142/64 98 Nasal Cannula 4.0 07/25/17 08:00 100 07/25/17 07:38 98.3 07/25/17 07:09 Nasal Cannula 3.0 07/25/17 07:08 Nasal Cannula 3.0 07/25/17 07:07 Nasal Cannula 3.0 07/25/17 07:07 92 Nasal Cannula 3.0 32 07/25/17 07:00 96 26 140/71 94 Nasal Cannula 4.0 07/25/17 06:00 94 26 130/64 96 Nasal Cannula 4.0 07/25/17 05:45 94 133/68 07/25/17 05:00 94 26 133/68 96 Nasal Cannula 4.0 07/25/17 04:00 98.3 93 28 137/48 97 Nasal Cannula 4.0 07/25/17 04:00 77 07/25/17 03:00 87 28 105/30 99 Nasal Cannula 4.0 07/25/17 02:39 Nasal Cannula 3.0 32 07/25/17 02:39 Nasal Cannula 3.0 32 07/25/17 02:00 99 30 130/49 99 Nasal Cannula 4.0 07/25/17 01:00 104 27 114/38 95 Nasal Cannula 4.0 07/25/17 00:00 105 07/25/17 00:00 98.7 104 28 95/65 97 Nasal Cannula 4.0 07/24/17 23:45 96 Nasal Cannula 3.0 32 07/24/17 23:32 100 107/49 07/24/17 23:00 106 26 107/49 96 Nasal Cannula 4.0 07/24/17 22:53 100 18 100 Venturi Mask 3.0 28 07/24/17 22:45 28 07/24/17 22:45 101 19 95 Venturi Mask 3.0 28 07/24/17 22:00 103 26 105/50 95 Venturi Mask 3.0 28 07/24/17 21:00 100 27 104/70 95 Venturi Mask 3.0 28 07/24/17 20:00 98 07/24/17 20:00 98.8 97 28 98/53 90 Room Air 07/24/17 19:50 95 Venturi Mask 28 07/24/17 19:50 Venturi Mask 28 07/24/17 19:00 82 25 110/53 97 Venturi Mask 3.0 28 07/24/17 18:00 99 25 110/52 98 Venturi Mask 3.0 28 07/24/17 17:13 103 121/58 07/24/17 17:00 103 24 121/58 94 Venturi Mask 3.0 28 07/24/17 16:00 98.6 101 25 112/42 94 Venturi Mask 3.0 28 07/24/17 16:00 98 07/24/17 15:00 98 27 110/49 93 Venturi Mask 3.0 28 07/24/17 14:00 99 27 100/52 96 Venturi Mask 3.0 28 07/24/17 13:00 103 27 107/58 92 Venturi Mask 3.0 28 07/24/17 12:17 98 118/68 07/24/17 12:00 96 07/24/17 12:00 98.5 101 24 118/66 91 Venturi Mask 3.0 28 07/24/17 11:00 95 27 121/56 91 Venturi Mask 3.0 28 07/24/17 10:00 106 28 116/52 90 Venturi Mask 3.0 28 07/24/17 09:32 Non-Rebreather 15.0 100 07/24/17 09:19 126/66 07/24/17 09:00 98 28 126/66 95 Non-Rebreather 100 Labs: Labs Test 07/22/17 12:30 07/23/17 05:15 07/23/17 11:35 07/24/17 05:10 Legionella pneumophila Group 1 Ab <0.91 OD ratio (0.00-0.90) Mycoplasma pneumoniae IgG Antibody <100 U/mL (0-99) Mycoplasma pneumoniae IgM Ab Titer <770 U/mL (0-769) Sodium Level 133 MMOL/L (136-145) 136 MMOL/L (136-145) Potassium Level 3.3 MMOL/L (3.5-5.1) 3.0 MMOL/L (3.5-5.1) Chloride Level 94 MMOL/L (98-107) 96 MMOL/L (98-107) Carbon Dioxide Level 35 MMOL/L (21-32) 37 MMOL/L (21-32) Anion Gap 4 (5-15) 3 (5-15) Blood Urea Nitrogen 20 mg/dL (7-18) 26 mg/dL (7-18) Creatinine 0.9 MG/DL (0.55-1.30) 1.2 MG/DL (0.55-1.30) Estimat Glomerular Filtration Rate > 60 mL/min (>60) 55.8 mL/min (>60) Glucose Level 268 MG/DL (74-106) 228 MG/DL (74-106) Calcium Level 8.4 MG/DL (8.5-10.1) 8.4 MG/DL (8.5-10.1) Total Bilirubin 0.4 MG/DL (0.2-1.0) 0.4 MG/DL (0.2-1.0) Aspartate Amino Transf (AST/SGOT) 13 U/L (15-37) 13 U/L (15-37) Alanine Aminotransferase (ALT/SGPT) 20 U/L (12-78) 17 U/L (12-78) Alkaline Phosphatase 77 U/L (46-116) 64 U/L (46-116) Total Protein 6.9 G/DL (6.4-8.2) 6.1 G/DL (6.4-8.2) Albumin 2.7 G/DL (3.4-5.0) 2.4 G/DL (3.4-5.0) Globulin 4.2 g/dL 3.7 g/dL Albumin/Globulin Ratio 0.6 (1.0-2.7) 0.6 (1.0-2.7) Vancomycin Level Trough 18.3 ug/mL (5.0-12.0) White Blood Count 10.3 K/UL (4.8-10.8) Red Blood Count 3.62 M/UL (4.20-5.40) Hemoglobin 10.6 G/DL (12.0-16.0) Hematocrit 33.3 % (37.0-47.0) Mean Corpuscular Volume 92 FL (80-99) Mean Corpuscular Hemoglobin 29.2 PG (27.0-31.0) Mean Corpuscular Hemoglobin Concent 31.8 G/DL (32.0-36.0) Red Cell Distribution Width 14.4 % (11.6-14.8) Platelet Count 286 K/UL (150-450) Mean Platelet Volume 8.5 FL (6.5-10.1) Neutrophils (%) (Auto) % (45.0-75.0) Lymphocytes (%) (Auto) % (20.0-45.0) Monocytes (%) (Auto) % (1.0-10.0) Eosinophils (%) (Auto) % (0.0-3.0) Basophils (%) (Auto) % (0.0-2.0) Differential Total Cells Counted 100 Neutrophils % (Manual) 89 % (45-75) Lymphocytes % (Manual) 9 % (20-45) Monocytes % (Manual) 2 % (1-10) Eosinophils % (Manual) 0 % (0-3) Basophils % (Manual) 0 % (0-2) Band Neutrophils 0 % (0-8) Platelet Estimate Adequate Platelet Morphology Normal Hypochromasia 1+ Magnesium Level 1.4 MG/DL (1.8-2.4) Pro-B-Type Natriuretic Peptide 2522 (0-125) Test 07/24/17 09:10 07/25/17 04:15 Arterial Blood pH 7.375 (7.350-7.450) Arterial Blood Partial Pressure CO2 65.5 mmHg (35.0-45.0) Arterial Blood Partial Pressure O2 306.2 mmHg (75.0-100.0) Arterial Blood HCO3 37.4 mmol/L (22.0-26.0) Arterial Blood Oxygen Saturation 99.5 % (92.0-98.0) Arterial Blood Base Excess 10.0 Rico Test Positive White Blood Count 11.5 K/UL (4.8-10.8) Red Blood Count 3.70 M/UL (4.20-5.40) Hemoglobin 10.7 G/DL (12.0-16.0) Hematocrit 35.1 % (37.0-47.0) Mean Corpuscular Volume 95 FL (80-99) Mean Corpuscular Hemoglobin 29.0 PG (27.0-31.0) Mean Corpuscular Hemoglobin Concent 30.5 G/DL (32.0-36.0) Red Cell Distribution Width 14.5 % (11.6-14.8) Platelet Count 228 K/UL (150-450) Mean Platelet Volume 8.4 FL (6.5-10.1) Neutrophils (%) (Auto) % (45.0-75.0) Lymphocytes (%) (Auto) % (20.0-45.0) Monocytes (%) (Auto) % (1.0-10.0) Eosinophils (%) (Auto) % (0.0-3.0) Basophils (%) (Auto) % (0.0-2.0) Sodium Level 138 MMOL/L (136-145) Potassium Level 4.1 MMOL/L (3.5-5.1) Chloride Level 102 MMOL/L (98-107) Carbon Dioxide Level 32 MMOL/L (21-32) Anion Gap 4 (5-15) Blood Urea Nitrogen 33 mg/dL (7-18) Creatinine 1.1 MG/DL (0.55-1.30) Estimat Glomerular Filtration Rate > 60 mL/min (>60) Glucose Level 307 MG/DL (74-106) Calcium Level 8.6 MG/DL (8.5-10.1) Magnesium Level 2.0 MG/DL (1.8-2.4) Total Bilirubin 0.2 MG/DL (0.2-1.0) Aspartate Amino Transf (AST/SGOT) 14 U/L (15-37) Alanine Aminotransferase (ALT/SGPT) 16 U/L (12-78) Alkaline Phosphatase 64 U/L (46-116) Total Protein 6.1 G/DL (6.4-8.2) Albumin 2.4 G/DL (3.4-5.0) Globulin 3.7 g/dL Albumin/Globulin Ratio 0.6 (1.0-2.7) Objective: GENERAL: A well-developed female, extubated.and alert HEENT: Fairly negative. Pupils are reactive. on oxygen NC NECK: Supple and short. LUNGS: With moderate breath sounds with reduced air entry overall.no rhonchi and wheeze CARDIAC: S1 and S2 regular rate and rhythm without murmurs, rubs, or gallops. ABDOMEN: Soft, obese, nontender, rotund. no HSM EXTREMITIES: No cyanosis or clubbing. There is mild edema. NEUROLOGICAL: awake; nonfocal and weak reviewed and edited Micro: Microbiology Date/Time Source Procedure Growth Status 07/22/17 17:30 Sputum Gram Stain - Final Complete 07/22/17 17:30 Sputum Sputum Culture - Final NORMAL UPPER RESPIRATORY TIO PRESENT Complete Accucheck: 328 OLIVER RAYMOND Jul 25, 2017 08:50
[2017-07-25 09:00] LABS: LYMPHOCYTES % (MANUAL) 13 % (20-45); NEUTROPHILS % (MANUAL) 85 % (45-75); TOTAL CELLS COUNTED 100
[2017-07-25 09:01] LABS: BAND NEUTROPHILS % (MANUAL) 0 % (0-8); BASOPHILS % (MANUAL) 0 % (0-2); EOSINOPHILS % (MANUAL) 0 % (0-3); PLATELET ESTIMATE ADEQUATE; PLATELET MORPHOLOGY NORMAL
[2017-07-25] MEDS: Eliquis 2.5mg tablet ORAL SCH ×2 (09:10→18:30)
[2017-07-25] MEDS: Sertraline 100mg tab ORAL SCH (09:11)
[2017-07-25] MEDS: Docusate 100mg cap ORAL SCH ×2 (09:11→18:30)
[2017-07-25] MEDS: Losartan 50mg tab ORAL SCH (09:11)
[2017-07-25] MEDS: Amiodarone 200mg tab ORAL SCH ×2 (09:11→18:30)
[2017-07-25] MEDS: Levemir Flexpen SUBQ SCH ×2 (09:12→22:54)
[2017-07-25] MEDS: Cefepime HCl 1 GM in D5W 55 ML IVPB SCH ×2 (09:27→21:44)
[2017-07-25] MEDS ORDERED: Solu-MEDROL 40mg Inj IVP SCH (09:30)
--- NOTE | 2017-07-25 09:39 | General Progress Note ---
Assessment/Plan Problem List: (1) Acute dyspnea (2) Diabetes mellitus ICD Codes: E11.9 - Diabetes mellitus SNOMED: 03677406 (3) Hypertension, malignant ICD Codes: I10 - Hypertension, malignant SNOMED: 59432833 (4) COPD exacerbation ICD Codes: J44.1 - COPD exacerbation SNOMED: 846905233 (5) CHF (6) Hypercapnia ICD Codes: R06.89 - Other abnormalities of breathing SNOMED: 10163921 (7) Pneumonia ICD Codes: J18.9 - Pneumonia, unspecified organism SNOMED: 586687779 Qualifiers: Qualified Codes: J18.1 - Lobar pneumonia, unspecified organism Assessment/Plan bipap wean per pulm resp rx decreased steroids iv lasix white for strict I and o monitoring replace lytes abx per ID dvt/stress ulcer prophylaxis insulin adjusted to tele Subjective ROS Limited/Unobtainable: No Constitutional: Reports: malaise, weakness HEENT: Reports: no symptoms Cardiovascular: Reports: no symptoms Respiratory: Reports: shortness of breath Gastrointestinal/Abdominal: Reports: no symptoms Genitourinary: Reports: no symptoms Neurologic/Psychiatric: Reports: no symptoms Endocrine: Reports: no symptoms Hematologic/Lymphatic: Reports: anemia Allergies: Coded Allergies: AMOXICILLIN (Verified Allergy, Mild, RASH HIVES, 09/29/13) CODEINE (Verified Allergy, Mild, RASH/HIVES, 09/29/13) IODINE (Verified Allergy, Unknown, 09/29/13) PENICILLINS (Verified Allergy, Unknown, RASH HIVES, 09/29/13) All Systems: reviewed and negative except above Subjective self extubated. no complaints. mild sob. c/o being hungry. currently on bipap Objective Last 24 Hour Vital Signs Date Time Temp Pulse Resp B/P (MAP) Pulse Ox O2 Delivery O2 Flow Rate FiO2 07/25/17 09:11 153/60 07/25/17 08:00 98.0 104 25 142/64 98 Nasal Cannula 4.0 07/25/17 08:00 100 07/25/17 07:38 98.3 07/25/17 07:09 Nasal Cannula 3.0 07/25/17 07:08 Nasal Cannula 3.0 07/25/17 07:07 Nasal Cannula 3.0 07/25/17 07:07 92 Nasal Cannula 3.0 32 07/25/17 07:00 96 26 140/71 94 Nasal Cannula 4.0 07/25/17 06:00 94 26 130/64 96 Nasal Cannula 4.0 07/25/17 05:45 94 133/68 07/25/17 05:00 94 26 133/68 96 Nasal Cannula 4.0 07/25/17 04:00 98.3 93 28 137/48 97 Nasal Cannula 4.0 07/25/17 04:00 77 07/25/17 03:00 87 28 105/30 99 Nasal Cannula 4.0 07/25/17 02:39 Nasal Cannula 3.0 32 07/25/17 02:39 Nasal Cannula 3.0 32 07/25/17 02:00 99 30 130/49 99 Nasal Cannula 4.0 07/25/17 01:00 104 27 114/38 95 Nasal Cannula 4.0 07/25/17 00:00 105 07/25/17 00:00 98.7 104 28 95/65 97 Nasal Cannula 4.0 07/24/17 23:45 96 Nasal Cannula 3.0 32 07/24/17 23:32 100 107/49 07/24/17 23:00 106 26 107/49 96 Nasal Cannula 4.0 07/24/17 22:53 100 18 100 Venturi Mask 3.0 28 07/24/17 22:45 28 07/24/17 22:45 101 19 95 Venturi Mask 3.0 28 07/24/17 22:00 103 26 105/50 95 Venturi Mask 3.0 28 07/24/17 21:00 100 27 104/70 95 Venturi Mask 3.0 28 07/24/17 20:00 98 07/24/17 20:00 98.8 97 28 98/53 90 Room Air 07/24/17 19:50 95 Venturi Mask 28 07/24/17 19:50 Venturi Mask 28 07/24/17 19:00 82 25 110/53 97 Venturi Mask 3.0 28 07/24/17 18:00 99 25 110/52 98 Venturi Mask 3.0 28 07/24/17 17:13 103 121/58 07/24/17 17:00 103 24 121/58 94 Venturi Mask 3.0 28 07/24/17 16:00 98.6 101 25 112/42 94 Venturi Mask 3.0 28 07/24/17 16:00 98 10/12/17 15:00 98 27 110/49 93 Venturi Mask 3.0 28 07/24/17 14:00 99 27 100/52 96 Venturi Mask 3.0 28 07/24/17 13:00 103 27 107/58 92 Venturi Mask 3.0 28 07/24/17 12:17 98 118/68 07/24/17 12:00 96 07/24/17 12:00 98.5 101 24 118/66 91 Venturi Mask 3.0 28 07/24/17 11:00 95 27 121/56 91 Venturi Mask 3.0 28 07/24/17 10:00 106 28 116/52 90 Venturi Mask 3.0 28 Intake and Output 07/25/17 07/26/17 19:00 07:00 Output Total 100 ml Balance -100 ml Output Urine Total 100 ml Laboratory Tests 07/25/17 04:15: White Blood Count 11.5H, Red Blood Count 3.70L, Hemoglobin 10.7L, Hematocrit 35.1L, Mean Corpuscular Volume 95, Mean Corpuscular Hemoglobin 29.0, Mean Corpuscular Hemoglobin Concent 30.5L, Red Cell Distribution Width 14.5, Platelet Count 228, Mean Platelet Volume 8.4, Neutrophils (%) (Auto) , Lymphocytes (%) (Auto) , Monocytes (%) (Auto) , Eosinophils (%) (Auto) , Basophils (%) (Auto) , Differential Total Cells Counted 100, Neutrophils % ( Manual) 85H, Lymphocytes % (Manual) 13L, Monocytes % (Manual) 2, Eosinophils % ( Manual) 0, Basophils % (Manual) 0, Band Neutrophils 0, Platelet Estimate Adequate, Platelet Morphology Normal, Sodium Level 138, Potassium Level 4.1, Chloride Level 102, Carbon Dioxide Level 32, Anion Gap 4L, Blood Urea Nitrogen 33H, Creatinine 1.1, Estimat Glomerular Filtration Rate > 60, Glucose Level 307H , Calcium Level 8.6, Magnesium Level 2.0, Total Bilirubin 0.2, Aspartate Amino Transf (AST/SGOT) 14L, Alanine Aminotransferase (ALT/SGPT) 16, Alkaline Phosphatase 64, Total Protein 6.1L, Albumin 2.4L, Globulin 3.7, Albumin/ Globulin Ratio 0.6L Height (Feet): 5 Weight (Pounds): 198 Objective General Appearance: WD/WN, calm. on bipap Neck: supple Cardiovascular: normal rate Respiratory/Chest: lungs mostly clear. few wheezes noted- better than yesterday Abdomen: normal bowel sounds, non tender, soft, no organomegaly Edema: no edema noted Arm (L), no edema noted Arm (R), no edema noted Leg (L), no edema noted Leg (R), no edema noted Pedal (L), no edema noted Pedal (R), no edema noted Generalized Neurologic: a and o x 4 CRISTIANA BROCK Jul 25, 2017 09:38
[2017-07-25] MEDS: Levalbuterol Inh UD 1.25mg/0.5ml HHN SCH ×4 (10:36→23:38)
--- NOTE | 2017-07-25 11:51 | Infectious Diseases Prog Note ---
Assessment/Plan Assessment/Plan antibiotics : vancomycin iv, cefepime A 1. pneumonia 2. COPD 3. respiratory failure P 1. continue vancomycin iv, cefepime 2. will follow up cultures Subjective ROS Limited/Unobtainable: Yes Allergies: Coded Allergies: AMOXICILLIN (Verified Allergy, Mild, RASH HIVES, 09/29/13) CODEINE (Verified Allergy, Mild, RASH/HIVES, 09/29/13) IODINE (Verified Allergy, Unknown, 09/29/13) PENICILLINS (Verified Allergy, Unknown, RASH HIVES, 09/29/13) Objective Vital Signs Last 24 Hour Vital Signs Date Time Temp Pulse Resp B/P (MAP) Pulse Ox O2 Delivery O2 Flow Rate FiO2 07/25/17 10:47 98 21 100 Bi-pap 40 07/25/17 10:37 93 21 100 Bi-pap 40 07/25/17 10:35 94 23 100 Facial 40 07/25/17 10:00 96 18 142/57 100 Bi-pap 07/25/17 09:25 100 28 100 Facial 40 07/25/17 09:11 153/60 07/25/17 09:00 93 20 156/60 100 Nasal Cannula 4.0 07/25/17 08:00 98.0 104 25 142/64 98 Nasal Cannula 4.0 07/25/17 08:00 100 07/25/17 07:38 98.3 07/25/17 07:09 Nasal Cannula 3.0 07/25/17 07:08 Nasal Cannula 3.0 07/25/17 07:07 Nasal Cannula 3.0 07/25/17 07:07 92 Nasal Cannula 3.0 32 07/25/17 07:00 96 26 140/71 94 Nasal Cannula 4.0 07/25/17 06:00 94 26 130/64 96 Nasal Cannula 4.0 07/25/17 05:45 94 133/68 07/25/17 05:00 94 26 133/68 96 Nasal Cannula 4.0 07/25/17 04:00 98.3 93 28 137/48 97 Nasal Cannula 4.0 07/25/17 04:00 77 07/25/17 03:00 87 28 105/30 99 Nasal Cannula 4.0 07/25/17 02:39 Nasal Cannula 3.0 32 07/25/17 02:39 Nasal Cannula 3.0 32 07/25/17 02:00 99 30 130/49 99 Nasal Cannula 4.0 07/25/17 01:00 104 27 114/38 95 Nasal Cannula 4.0 07/25/17 00:00 105 07/25/17 00:00 98.7 104 28 95/65 97 Nasal Cannula 4.0 07/24/17 23:45 96 Nasal Cannula 3.0 32 07/24/17 23:32 100 107/49 07/24/17 23:00 106 26 107/49 96 Nasal Cannula 4.0 07/24/17 22:53 100 18 100 Venturi Mask 3.0 28 07/24/17 22:45 28 07/24/17 22:45 101 19 95 Venturi Mask 3.0 28 07/24/17 22:00 103 26 105/50 95 Venturi Mask 3.0 28 07/24/17 21:00 100 27 104/70 95 Venturi Mask 3.0 28 07/24/17 20:00 98 07/24/17 20:00 98.8 97 28 98/53 90 Room Air 07/24/17 19:50 95 Venturi Mask 28 07/24/17 19:50 Venturi Mask 28 07/24/17 19:00 82 25 110/53 97 Venturi Mask 3.0 28 07/24/17 18:00 99 25 110/52 98 Venturi Mask 3.0 28 07/24/17 17:13 103 121/58 07/24/17 17:00 103 24 121/58 94 Venturi Mask 3.0 28 07/24/17 16:00 98.6 101 25 112/42 94 Venturi Mask 3.0 28 07/24/17 16:00 98 07/24/17 15:00 98 27 110/49 93 Venturi Mask 3.0 28 07/24/17 14:00 99 27 100/52 96 Venturi Mask 3.0 28 07/24/17 13:00 103 27 107/58 92 Venturi Mask 3.0 28 07/24/17 12:17 98 118/68 07/24/17 12:00 96 07/24/17 12:00 98.5 101 24 118/66 91 Venturi Mask 3.0 28 Height (Feet): 5 Weight (Pounds): 198 HEENT: other - on bipap Respiratory/Chest: lungs clear Cardiovascular: normal rate, regular rhythm, no gallop/murmur Abdomen: soft, non tender Extremities: no edema Microbiology Date/Time Source Procedure Growth Status 07/22/17 17:30 Sputum Gram Stain - Final Complete 07/22/17 17:30 Sputum Sputum Culture - Final NORMAL UPPER RESPIRATORY TIO PRESENT Complete Laboratory Tests Test 07/25/17 04:15 White Blood Count 11.5 K/UL (4.8-10.8) H Red Blood Count 3.70 M/UL (4.20-5.40) L Hemoglobin 10.7 G/DL (12.0-16.0) L Hematocrit 35.1 % (37.0-47.0) L Mean Corpuscular Volume 95 FL (80-99) Mean Corpuscular Hemoglobin 29.0 PG (27.0-31.0) Mean Corpuscular Hemoglobin Concent 30.5 G/DL (32.0-36.0) L Red Cell Distribution Width 14.5 % (11.6-14.8) Platelet Count 228 K/UL (150-450) Mean Platelet Volume 8.4 FL (6.5-10.1) Neutrophils (%) (Auto) % (45.0-75.0) Lymphocytes (%) (Auto) % (20.0-45.0) Monocytes (%) (Auto) % (1.0-10.0) Eosinophils (%) (Auto) % (0.0-3.0) Basophils (%) (Auto) % (0.0-2.0) Differential Total Cells Counted 100 Neutrophils % (Manual) 85 % (45-75) H Lymphocytes % (Manual) 13 % (20-45) L Monocytes % (Manual) 2 % (1-10) Eosinophils % (Manual) 0 % (0-3) Basophils % (Manual) 0 % (0-2) Band Neutrophils 0 % (0-8) Platelet Estimate Adequate Platelet Morphology Normal Sodium Level 138 MMOL/L (136-145) Potassium Level 4.1 MMOL/L (3.5-5.1) Chloride Level 102 MMOL/L (98-107) Carbon Dioxide Level 32 MMOL/L (21-32) Anion Gap 4 (5-15) L Blood Urea Nitrogen 33 mg/dL (7-18) H Creatinine 1.1 MG/DL (0.55-1.30) Estimat Glomerular Filtration Rate > 60 mL/min (>60) Glucose Level 307 MG/DL (74-106) H Calcium Level 8.6 MG/DL (8.5-10.1) Magnesium Level 2.0 MG/DL (1.8-2.4) Total Bilirubin 0.2 MG/DL (0.2-1.0) Aspartate Amino Transf (AST/SGOT) 14 U/L (15-37) L Alanine Aminotransferase (ALT/SGPT) 16 U/L (12-78) Alkaline Phosphatase 64 U/L (46-116) Total Protein 6.1 G/DL (6.4-8.2) L Albumin 2.4 G/DL (3.4-5.0) L Globulin 3.7 g/dL Albumin/Globulin Ratio 0.6 (1.0-2.7) L ANH PATRICK Jul 25, 2017 11:51
[2017-07-25] MEDS ORDERED: Vancomycin 1250mg/D5W 250ml 250 ML IVPB SCH (12:00)
[2017-07-25 12:22] LABS: L.PNEUMOPHILIA IGM SERO-1 < 1:16 (< 1:16)
--- NOTE | 2017-07-25 16:00 | Progress Note ---
DATE: 07/25/2017 CARDIOLOGY PROGRESS NOTE SUBJECTIVE: The patient remains on BiPAP support. Steroid taper is ongoing. She continues to require episodic diuresis. She remains tenuous with regard to her overall cardiopulmonary condition. Monitored rhythm remains atrial fibrillation with rate control. OBJECTIVE: VITAL SIGNS: Blood pressure 142/57, pulse 96, respiratory rate 18. LUNGS: Bilateral breath sounds. Scattered rhonchi. Some accessory muscle use and few expiratory wheezes. CARDIAC: Regular rhythm and rate. Normal S1 and S2 with a fourth heart sound. ABDOMEN: Soft. EXTREMITIES: With trace dependent edema. LABORATORY AND DIAGNOSTIC DATA: White count 11.5 and hemoglobin 10.7. Pro-natriuretic peptide yesterday was 2500. BUN 33 and creatinine 1.1. Potassium 4.1. Albumin is 2.4. Echocardiogram revealed normal ejection fraction with mild pulmonary hypertension, PA systolic of 40 mmHg. IMPRESSION: 1. Healthcare-acquired pneumonia. 2. Chronic obstructive pulmonary disease with acute exacerbation. 3. Acute bronchospasm. 4. Respiratory failure, now extubated on BiPAP. 5. Acute on chronic diastolic congestive heart failure. 6. Paroxysmal atrial fibrillation/flutter. 7. Breast cancer status post mastectomy. 8. Type 2 diabetes mellitus on insulin titration. 9. Hypertensive heart disease with labile blood pressure control. PLAN: 1. Amiodarone loading 200 mg twice a day for now. 2. Apixaban for cardioembolic prophylaxis. 3. Titrate diuretics on a daily basis based on cardiorenal parameters and volume status. 4. Trending of natriuretic peptide can be helpful as well. 5. Insulin titration. 6. Steroid taper. 7. Close monitoring of creatinine. Werner Martinez M.D. DR: KAYLA JOB#: [id number] CC:
[2017-07-25] MEDS ORDERED: Promethazine/Codeine 5ml UD ORAL PRN (17:45)
[2017-07-25] MEDS ORDERED: LORazepam Inj 2mg/ml 1ml IV PRN (18:30)
[2017-07-25] MEDS: Atorvastatin 20mg tab ORAL SCH (21:45)
[2017-07-25] MEDS: Solu-MEDROL 40mg Inj IVP SCH (21:46)
[2017-07-26] VITALS (9 sets, daily range): BP systolic 127–155; BP diastolic 61–78
[2017-07-26] MEDS: dilTIAZem HCl 90mg tab ORAL SCH ×4 (00:37→17:35)
[2017-07-26] MEDS: Vancomycin 1250mg/D5W 250ml 250 ML IVPB SCH ×2 (00:50→13:24)
[2017-07-26] MEDS: Levalbuterol Inh UD 1.25mg/0.5ml HHN SCH ×6 (03:22→23:24)
[2017-07-26] MEDS: metFORMIN 500mg tab ORAL SCH ×3 (06:24→17:34)
[2017-07-26] MEDS: NovoLOG Insulin Flexpen SUBQ SCH ×4 (06:28→20:44)
[2017-07-26 07:40] LABS: MEAN CORPUSCULAR HEMOGLOBIN 28.8 PG (27.0-31.0); MEAN CORPUSCULAR HGB CONC 30.3 G/DL (32.0-36.0); MEAN CORPUSCULAR VOLUME 95 FL (80-99); MEAN PLATELET VOLUME 8.8 FL (6.5-10.1); PLATELET COUNT 227 K/UL (150-450); RED BLOOD COUNT 3.43 M/UL (4.20-5.40); RED CELL DISTRIBUTION WIDTH 14.3 % (11.6-14.8)
[2017-07-26 08:11] LABS: ALANINE AMINOTRANSFERASE 16 U/L (12-78); ALBUMIN/GLOBULIN RATIO 0.8 (1.0-2.7); ANION GAP -2 (5-15); ASPARTATE AMINO TRANSFERASE 11 U/L (15-37); CALCIUM 8.3 MG/DL (8.5-10.1); CARBON DIOXIDE 37 MMOL/L (21-32); CHLORIDE 98 MMOL/L (98-107); GLOMERULAR FILTRATION RATE > 60 mL/min (>60); POTASSIUM 3.6 MMOL/L (3.5-5.1); SODIUM 133 MMOL/L (136-145); TOTAL PROTEIN 5.7 G/DL (6.4-8.2)
[2017-07-26 08:27] LABS: BAND NEUTROPHILS % (MANUAL) 0 % (0-8); BASOPHILS % (MANUAL) 0 % (0-2); EOSINOPHILS % (MANUAL) 0 % (0-3); LYMPHOCYTES % (MANUAL) 6 % (20-45); NEUTROPHILS % (MANUAL) 92 % (45-75); PLATELET ESTIMATE ADEQUATE; PLATELET MORPHOLOGY NORMAL; TOTAL CELLS COUNTED 100
[2017-07-26] MEDS: Levemir Flexpen SUBQ SCH ×3 (09:00→20:43)
--- NOTE | 2017-07-26 09:07 | Critical Care Progress Note ---
Assessment/Plan Assessment/Plan IMPRESSION: 1. Respiratory failure, acute on chronic. 2. Acute on chronic carbon dioxide retention. 3. Chronic hypercapnia. 4. Chronic hypoxemia. 5. Chronic obstructive pulmonary disease with acute exacerbation. 6. Congestive heart failure per history. 7. Obstructive sleep apnea per history. 8. Metabolic alkalosis due to compensatory needs. 9. Hyperkalemia. 10. Hyperglycemia and diabetes. 11. History cancer. 12. History of congestive heart failure. 13. pneumonia PLAN care noted IV antibiotics respiratory care as is Ventilatory support off and stable SNF meds supportive care suction as needed stabilize oxygen therapy as is prognosis guarded keep negative nutrition taper solumedrol slowly PARAMJIT care medications/laboratory data/nursing notes/ICU care reviewed in detail note reviewed and edited care discussed with RN and RT ICU time spent 37 minutes Critical Care - Subjective Condition: improving EKG Rhythm: Sinus Rhythm I&O: transferred to PARAMJIT stable no distress Critical Care - Objective ET-Tube: 7.0 ET Position: 24 Last 24 Hour Vital Signs Date Time Temp Pulse Resp B/P (MAP) Pulse Ox O2 Delivery O2 Flow Rate FiO2 07/26/17 08:15 97.7 95 20 155/78 98 Nasal Cannula 2.0 07/26/17 06:15 93 127/63 07/26/17 06:00 97.0 82 23 142/64 100 Nasal Cannula 2.0 07/26/17 04:59 93 22 95 Facial 35 07/26/17 04:00 86 07/26/17 04:00 97.0 86 19 127/63 95 Bi-pap 3.0 35 07/26/17 03:35 94 19 95 Bi-pap 35 07/26/17 03:25 95 20 94 Bi-pap 35 07/26/17 03:19 96 22 95 Facial 35 07/26/17 03:00 97.0 86 24 127/63 95 Bi-pap 3.0 35 07/26/17 03:00 97.0 86 24 127/63 95 Room Air 07/26/17 01:00 98.2 101 24 129/72 95 Bi-pap 3.0 35 07/26/17 00:45 86 24 95 35 07/26/17 00:37 105 129/72 07/26/17 00:00 98.2 101 24 129/72 94 Bi-pap 07/26/17 00:00 102 07/25/17 23:59 108 18 94 Nasal Cannula 3.0 32 07/25/17 23:52 100 20 93 Nasal Cannula 3.0 32 07/25/17 20:32 Nasal Cannula 2.0 28 07/25/17 20:32 93 Nasal Cannula 2.0 28 07/25/17 20:30 105 18 95 Nasal Cannula 2.0 28 07/25/17 20:15 103 20 93 Nasal Cannula 2.0 28 07/25/17 20:00 98.0 108 20 152/61 95 Nasal Cannula 4.0 40 07/25/17 19:40 98.0 07/25/17 18:30 64 07/25/17 18:00 64 07/25/17 17:00 84 20 130/65 100 Nasal Cannula 4.0 07/25/17 16:00 88 07/25/17 16:00 98.0 88 22 142/66 100 Nasal Cannula 4.0 07/25/17 15:40 77 20 99 Nasal Cannula 3.0 07/25/17 15:30 87 20 98 Nasal Cannula 4.0 07/25/17 15:00 84 18 132/67 100 Nasal Cannula 4.0 07/25/17 14:00 71 20 129/55 99 Nasal Cannula 4.0 07/25/17 13:00 70 21 122/44 99 Bi-pap 40 07/25/17 12:30 80 143/53 07/25/17 12:00 97.8 97 21 143/53 99 Bi-pap 40 07/25/17 12:00 97 07/25/17 11:00 97 21 137/58 99 Bi-pap 40 07/25/17 10:47 98 21 100 Bi-pap 40 07/25/17 10:37 93 21 100 Bi-pap 40 07/25/17 10:35 94 23 100 Facial 40 07/25/17 10:00 96 18 142/57 100 Bi-pap 07/25/17 09:25 100 28 100 Facial 40 07/25/17 09:11 153/60 Labs: Laboratory Tests Test 07/26/17 06:20 White Blood Count 11.0 K/UL (4.8-10.8) H Red Blood Count 3.43 M/UL (4.20-5.40) L Hemoglobin 9.9 G/DL (12.0-16.0) L Hematocrit 32.5 % (37.0-47.0) L Mean Corpuscular Volume 95 FL (80-99) Mean Corpuscular Hemoglobin 28.8 PG (27.0-31.0) Mean Corpuscular Hemoglobin Concent 30.3 G/DL (32.0-36.0) L Red Cell Distribution Width 14.3 % (11.6-14.8) Platelet Count 227 K/UL (150-450) Mean Platelet Volume 8.8 FL (6.5-10.1) Neutrophils (%) (Auto) % (45.0-75.0) Lymphocytes (%) (Auto) % (20.0-45.0) Monocytes (%) (Auto) % (1.0-10.0) Eosinophils (%) (Auto) % (0.0-3.0) Basophils (%) (Auto) % (0.0-2.0) Differential Total Cells Counted 100 Neutrophils % (Manual) 92 % (45-75) H Lymphocytes % (Manual) 6 % (20-45) L Monocytes % (Manual) 2 % (1-10) Eosinophils % (Manual) 0 % (0-3) Basophils % (Manual) 0 % (0-2) Band Neutrophils 0 % (0-8) Platelet Estimate Adequate Platelet Morphology Normal Sodium Level 133 MMOL/L (136-145) L Potassium Level 3.6 MMOL/L (3.5-5.1) Chloride Level 98 MMOL/L (98-107) Carbon Dioxide Level 37 MMOL/L (21-32) H Anion Gap -2 (5-15) L Blood Urea Nitrogen 30 mg/dL (7-18) H Creatinine 1.0 MG/DL (0.55-1.30) Estimat Glomerular Filtration Rate > 60 mL/min (>60) Glucose Level 344 MG/DL (74-106) H Calcium Level 8.3 MG/DL (8.5-10.1) L Total Bilirubin 0.2 MG/DL (0.2-1.0) Aspartate Amino Transf (AST/SGOT) 11 U/L (15-37) L Alanine Aminotransferase (ALT/SGPT) 16 U/L (12-78) Alkaline Phosphatase 60 U/L (46-116) Pro-B-Type Natriuretic Peptide 460 (0-125) H Total Protein 5.7 G/DL (6.4-8.2) L Albumin 2.5 G/DL (3.4-5.0) L Globulin 3.2 g/dL Albumin/Globulin Ratio 0.8 (1.0-2.7) L Objective: GENERAL: A well-developed female, on NC oxygen HEENT: Fairly negative. Pupils are reactive. on oxygen NC NECK: Supple and short. LUNGS: With moderate breath sounds with reduced air entry overall.no rhonchi and wheeze CARDIAC: S1 and S2 regular rate and rhythm without murmurs, rubs, or gallops. ABDOMEN: Soft, obese, nontender, rotund. no HSM EXTREMITIES: No cyanosis or clubbing. There is mild edema. NEUROLOGICAL: awake; nonfocal and weak reviewed and edited Accucheck: 330 OLIVER RAYMOND Jul 26, 2017 09:07
--- NOTE | 2017-07-26 09:46 | General Progress Note ---
Assessment/Plan Problem List: (1) Acute dyspnea (2) Diabetes mellitus ICD Codes: E11.9 - Diabetes mellitus SNOMED: 36931050 (3) Hypertension, malignant ICD Codes: I10 - Hypertension, malignant SNOMED: 74371098 (4) COPD exacerbation ICD Codes: J44.1 - COPD exacerbation SNOMED: 858129707 (5) CHF (6) Hypercapnia ICD Codes: R06.89 - Other abnormalities of breathing SNOMED: 88528868 (7) Pneumonia ICD Codes: J18.9 - Pneumonia, unspecified organism SNOMED: 686273007 Qualifiers: Qualified Codes: J18.1 - Lobar pneumonia, unspecified organism Status: stable, progressing Assessment/Plan iv abx wean per pulm resp rx decreased steroids iv lasix white for strict I and o monitoring replace lytes abx per ID dvt/stress ulcer prophylaxis insulin adjusted- increased tele dc planning tomorrow Subjective ROS Limited/Unobtainable: No Constitutional: Reports: malaise, weakness HEENT: Reports: no symptoms Cardiovascular: Reports: no symptoms Respiratory: Reports: cough, shortness of breath Gastrointestinal/Abdominal: Reports: no symptoms Genitourinary: Reports: no symptoms Neurologic/Psychiatric: Reports: no symptoms Endocrine: Reports: no symptoms Hematologic/Lymphatic: Reports: no symptoms Allergies: Coded Allergies: AMOXICILLIN (Verified Allergy, Mild, RASH HIVES, 09/29/13) CODEINE (Verified Allergy, Mild, RASH/HIVES, 09/29/13) IODINE (Verified Allergy, Unknown, 09/29/13) PENICILLINS (Verified Allergy, Unknown, RASH HIVES, 09/29/13) All Systems: reviewed and negative except above Subjective feels better today. decreased sob. no chest pain very hungry wants to go back to snf. Objective Last 24 Hour Vital Signs Date Time Temp Pulse Resp B/P (MAP) Pulse Ox O2 Delivery O2 Flow Rate FiO2 07/26/17 08:15 97.7 95 20 155/78 98 Nasal Cannula 2.0 07/26/17 06:15 93 127/63 07/26/17 06:00 97.0 82 23 142/64 100 Nasal Cannula 2.0 07/26/17 04:59 93 22 95 Facial 35 07/26/17 04:00 86 07/26/17 04:00 97.0 86 19 127/63 95 Bi-pap 3.0 35 07/26/17 03:35 94 19 95 Bi-pap 35 07/26/17 03:25 95 20 94 Bi-pap 35 07/26/17 03:19 96 22 95 Facial 35 07/26/17 03:00 97.0 86 24 127/63 95 Bi-pap 3.0 35 07/26/17 03:00 97.0 86 24 127/63 95 Room Air 07/26/17 01:00 98.2 101 24 129/72 95 Bi-pap 3.0 35 07/26/17 00:45 86 24 95 35 07/26/17 00:37 105 129/72 07/26/17 00:00 98.2 101 24 129/72 94 Bi-pap 07/26/17 00:00 102 07/25/17 23:59 108 18 94 Nasal Cannula 3.0 32 07/25/17 23:52 100 20 93 Nasal Cannula 3.0 32 07/25/17 20:32 Nasal Cannula 2.0 28 07/25/17 20:32 93 Nasal Cannula 2.0 28 07/25/17 20:30 105 18 95 Nasal Cannula 2.0 28 07/25/17 20:15 103 20 93 Nasal Cannula 2.0 28 07/25/17 20:00 98.0 108 20 152/61 95 Nasal Cannula 4.0 40 07/25/17 19:40 98.0 07/25/17 18:30 64 07/25/17 18:00 64 07/25/17 17:00 84 20 130/65 100 Nasal Cannula 4.0 07/25/17 16:00 88 07/25/17 16:00 98.0 88 22 142/66 100 Nasal Cannula 4.0 07/25/17 15:40 77 20 99 Nasal Cannula 3.0 07/25/17 15:30 87 20 98 Nasal Cannula 4.0 07/25/17 15:00 84 18 132/67 100 Nasal Cannula 4.0 07/25/17 14:00 71 20 129/55 99 Nasal Cannula 4.0 07/25/17 13:00 70 21 122/44 99 Bi-pap 40 07/25/17 12:30 80 143/53 07/25/17 12:00 97.8 97 21 143/53 99 Bi-pap 40 07/25/17 12:00 97 07/25/17 11:00 97 21 137/58 99 Bi-pap 40 07/25/17 10:47 98 21 100 Bi-pap 40 07/25/17 10:37 93 21 100 Bi-pap 40 07/25/17 10:35 94 23 100 Facial 40 07/25/17 10:00 96 18 142/57 100 Bi-pap Intake and Output 07/26/17 07/27/17 19:00 07:00 Intake Total 240 ml Balance 240 ml Intake Oral 240 ml Laboratory Tests 07/26/17 06:20: White Blood Count 11.0H, Red Blood Count 3.43L, Hemoglobin 9.9L, Hematocrit 32.5L, Mean Corpuscular Volume 95, Mean Corpuscular Hemoglobin 28.8, Mean Corpuscular Hemoglobin Concent 30.3L, Red Cell Distribution Width 14.3, Platelet Count 227, Mean Platelet Volume 8.8, Neutrophils (%) (Auto) , Lymphocytes (%) (Auto) , Monocytes (%) (Auto) , Eosinophils (%) (Auto) , Basophils (%) (Auto) , Differential Total Cells Counted 100, Neutrophils % ( Manual) 92H, Lymphocytes % (Manual) 6L, Monocytes % (Manual) 2, Eosinophils % ( Manual) 0, Basophils % (Manual) 0, Band Neutrophils 0, Platelet Estimate Adequate, Platelet Morphology Normal, Sodium Level 133L, Potassium Level 3.6, Chloride Level 98, Carbon Dioxide Level 37H, Anion Gap -2L, Blood Urea Nitrogen 30H, Creatinine 1.0, Estimat Glomerular Filtration Rate > 60, Glucose Level 344H , Calcium Level 8.3L, Total Bilirubin 0.2, Aspartate Amino Transf (AST/SGOT) 11L , Alanine Aminotransferase (ALT/SGPT) 16, Alkaline Phosphatase 60, Pro-B-Type Natriuretic Peptide 460H, Total Protein 5.7L, Albumin 2.5L, Globulin 3.2, Albumin/Globulin Ratio 0.8L Height (Feet): 5 Weight (Pounds): 198 Objective General Appearance: WD/WN, calm. on nasal cannula Neck: supple Cardiovascular: normal rate Respiratory/Chest: lungs mostly clear. few wheezes noted- better than yesterday Abdomen: normal bowel sounds, non tender, soft, no organomegaly Edema: no edema noted Arm (L), no edema noted Arm (R), no edema noted Leg (L), no edema noted Leg (R), no edema noted Pedal (L), no edema noted Pedal (R), no edema noted Generalized Neurologic: a and o x 4 CRISTIANA BROCK Jul 26, 2017 09:46
[2017-07-26] MEDS ORDERED: Furosemide 40mg tab ORAL SCH (10:00)
[2017-07-26] MEDS: Losartan 50mg tab ORAL SCH (10:08)
[2017-07-26] MEDS: Amiodarone 200mg tab ORAL SCH ×2 (10:08→17:35)
[2017-07-26] MEDS: Docusate 100mg cap ORAL SCH ×2 (10:09→17:34)
[2017-07-26] MEDS: Eliquis 2.5mg tablet ORAL SCH ×2 (10:09→17:34)
[2017-07-26] MEDS: Sertraline 100mg tab ORAL SCH (10:09)
[2017-07-26] MEDS: Cefepime HCl 1 GM in D5W 55 ML IVPB SCH ×2 (10:10→20:40)
[2017-07-26] MEDS: Solu-MEDROL 40mg Inj IVP SCH ×2 (10:11→20:39)
[2017-07-26] MEDS ORDERED: Norco 5mg/325mg tab ORAL PRN (11:00)
[2017-07-26] MEDS ORDERED: Tubing IV Secondary IV ONE ×2 (16:32→18:45)
[2017-07-26] MEDS: Atorvastatin 20mg tab ORAL SCH (20:41)
[2017-07-27] VITALS: BP 142/62
[2017-07-27] MEDS: Vancomycin 1250mg/D5W 250ml 250 ML IVPB SCH (00:19)
[2017-07-27] MEDS: dilTIAZem HCl 90mg tab ORAL SCH ×4 (00:20→17:20)
[2017-07-27] MEDS: Levalbuterol Inh UD 1.25mg/0.5ml HHN SCH ×5 (03:08→20:36)
[2017-07-27 04:00] VITALS: BP 145/63
[2017-07-27] MEDS: metFORMIN 500mg tab ORAL SCH ×3 (06:11→17:20)
[2017-07-27] MEDS: NovoLOG Insulin Flexpen SUBQ SCH ×4 (06:18→20:37)
[2017-07-27 08:00] VITALS: BP 140/74
[2017-07-27] MEDS: Solu-MEDROL 40mg Inj IVP SCH ×2 (08:25→20:32)
[2017-07-27] MEDS: Eliquis 2.5mg tablet ORAL SCH ×2 (08:25→17:20)
[2017-07-27] MEDS: Sertraline 100mg tab ORAL SCH (08:26)
[2017-07-27] MEDS: Losartan 50mg tab ORAL SCH (08:26)
[2017-07-27] MEDS: Docusate 100mg cap ORAL SCH ×2 (08:27→17:20)
[2017-07-27] MEDS: Amiodarone 200mg tab ORAL SCH ×2 (08:27→17:20)
[2017-07-27] MEDS: Levemir Flexpen SUBQ SCH ×2 (08:41→20:35)
[2017-07-27] MEDS ORDERED: Furosemide 40mg tab ORAL SCH (09:00)
[2017-07-27] MEDS: Cefepime HCl 1 GM in D5W 55 ML IVPB SCH ×2 (09:03→20:31)
[2017-07-27 09:12] LABS: ALANINE AMINOTRANSFERASE 16 U/L (12-78); ALBUMIN/GLOBULIN RATIO 0.8 (1.0-2.7); ANION GAP 2 (5-15); ASPARTATE AMINO TRANSFERASE 7 U/L (15-37); CALCIUM 8.9 MG/DL (8.5-10.1); CARBON DIOXIDE 40 MMOL/L (21-32); CHLORIDE 101 MMOL/L (98-107); CREATININE 0.9 MG/DL (0.55-1.30); GLOMERULAR FILTRATION RATE > 60 mL/min (>60); SODIUM 143 MMOL/L (136-145); TOTAL PROTEIN 6.1 G/DL (6.4-8.2)
--- NOTE | 2017-07-27 09:34 | Infectious Diseases Prog Note ---
Assessment/Plan Assessment/Plan A 1. pneumonia 2. COPD exacerbation 3. respiratory failure, hypercapnic 4. DM 5. Anemia P 1. discontinue vancomycin iv, continue cefepime 2. discontinue Lee catheter Subjective ROS Limited/Unobtainable: No Constitutional: Reports: no symptoms Respiratory: Reports: shortness of breath, dry cough Gastrointestinal/Abdominal: Reports: constipation Genitourinary: Reports: no symptoms Allergies: Coded Allergies: AMOXICILLIN (Verified Allergy, Mild, RASH HIVES, 09/29/13) CODEINE (Verified Allergy, Mild, RASH/HIVES, 09/29/13) IODINE (Verified Allergy, Unknown, 09/29/13) PENICILLINS (Verified Allergy, Unknown, RASH HIVES, 09/29/13) Objective Vital Signs Last 24 Hour Vital Signs Date Time Temp Pulse Resp B/P (MAP) Pulse Ox O2 Delivery O2 Flow Rate FiO2 07/27/17 08:26 145/63 07/27/17 07:09 86 18 100 Nasal Cannula 2.0 07/27/17 06:46 Nasal Cannula 2.0 07/27/17 06:46 98 Nasal Cannula 2.0 07/27/17 06:46 85 18 98 Nasal Cannula 2.0 07/27/17 06:11 95 145/63 07/27/17 04:00 95 07/27/17 04:00 97.9 90 20 145/63 98 Bi-pap 2.0 35 07/27/17 03:06 81 20 98 Bi-pap 35 07/27/17 03:00 82 20 94 Bi-pap 35 07/27/17 00:20 86 145/62 07/27/17 00:00 97.0 75 20 142/62 99 Bi-pap 2.0 35 07/27/17 00:00 100 07/26/17 23:26 86 20 99 Bi-pap 35 07/26/17 23:20 94 20 97 Bi-pap 35 07/26/17 23:13 94 20 96 Facial 35 07/26/17 22:08 97.2 07/26/17 20:19 97.2 88 18 145/62 99 Nasal Cannula 2.0 07/26/17 20:00 88 07/26/17 19:31 85 20 99 Nasal Cannula 2.0 28 07/26/17 19:28 98 Nasal Cannula 2.0 28 07/26/17 19:28 Nasal Cannula 2.0 28 07/26/17 19:25 84 20 98 Nasal Cannula 2.0 28 07/26/17 17:35 92 128/61 07/26/17 16:00 82 07/26/17 15:30 92 20 98 Nasal Cannula 2.0 28 07/26/17 15:29 98.1 93 18 128/61 97 Nasal Cannula 2.0 07/26/17 15:25 90 20 98 Nasal Cannula 2.0 28 07/26/17 13:23 86 134/69 07/26/17 12:00 95 07/26/17 11:50 97.9 86 20 134/69 98 Nasal Cannula 2.0 07/26/17 11:30 94 20 98 Nasal Cannula 2.0 28 07/26/17 11:25 92 20 98 Nasal Cannula 2.0 28 07/26/17 10:08 155/78 Height (Feet): 5 Weight (Pounds): 213 General Appearance: other - obese HEENT: other - O2 by cannula Respiratory/Chest: rhonchi - bilaterally Cardiovascular: normal rate Abdomen: soft, non tender Extremities: no edema Neurologic/Psychiatric: alert, oriented x 3, responsive Laboratory Tests Test 07/26/17 11:20 07/27/17 06:40 Vancomycin Level Trough 16.1 ug/mL (5.0-12.0) H Sodium Level 143 MMOL/L (136-145) Potassium Level 4.0 MMOL/L (3.5-5.1) Chloride Level 101 MMOL/L (98-107) Carbon Dioxide Level 40 MMOL/L (21-32) H Anion Gap 2 (5-15) L Blood Urea Nitrogen 23 mg/dL (7-18) H Creatinine 0.9 MG/DL (0.55-1.30) Estimat Glomerular Filtration Rate > 60 mL/min (>60) Glucose Level 325 MG/DL (74-106) H Calcium Level 8.9 MG/DL (8.5-10.1) Total Bilirubin 0.2 MG/DL (0.2-1.0) Aspartate Amino Transf (AST/SGOT) 7 U/L (15-37) L Alanine Aminotransferase (ALT/SGPT) 16 U/L (12-78) Alkaline Phosphatase 64 U/L (46-116) Total Protein 6.1 G/DL (6.4-8.2) L Albumin 2.7 G/DL (3.4-5.0) L Globulin 3.4 g/dL Albumin/Globulin Ratio 0.8 (1.0-2.7) L Current Medications Medications (Trade) Dose Ordered Sig/Sera Route PRN Reason Start Time Stop Time Status Last Admin Dose Admin Acetaminophen (Tylenol) 650 mg Q4H PRN ORAL Mild Pain/Temp > 100.5 07/25/17 18:15 08/24/17 06:14 07/27/17 09:04 Acetaminophen/ Hydrocodone Bitart (Farrell 5/325) 1 tab Q4H PRN ORAL Moderate Pain (Pain Scale 4-6) 07/26/17 11:00 08/02/17 10:59 07/26/17 11:48 Amiodarone HCl (Cordarone) 200 mg BID ORAL 07/25/17 18:30 08/21/17 18:29 07/27/17 08:27 Apixaban (Eliquis) 5 mg BID ORAL 07/25/17 18:30 08/21/17 18:29 07/27/17 08:25 Atorvastatin Calcium (Lipitor) 20 mg BEDTIME ORAL 07/25/17 21:00 08/21/17 20:59 07/26/17 20:41 Cefepime HCl 1 gm/ Dextrose 55 ml @ 110 mls/hr EVERY 12 HOURS IVPB 07/25/17 21:00 07/29/17 10:59 07/27/17 09:03 Clonidine HCl (Catapres) 0.1 mg Q4H PRN ORAL SBP > 160mmHg 07/25/17 18:30 08/24/17 18:29 Dextrose (Dextrose 50%) STAT PRN IV Hypoglycemia 07/25/17 18:30 08/24/17 18:29 Diltiazem HCl (Cardizem) 90 mg EVERY 6 HOURS ORAL 07/25/17 18:30 08/21/17 18:29 07/27/17 06:11 Docusate Sodium (Colace) 100 mg TWICE A DAY ORAL 07/25/17 18:30 08/21/17 18:29 07/27/17 08:27 Furosemide (Lasix) 40 mg DAILY ORAL 07/27/17 09:00 08/26/17 08:59 07/27/17 08:27 Insulin Aspart (NovoLOG) BEFORE MEALS AND HS SUBQ 07/25/17 21:00 08/23/17 11:29 07/27/17 06:18 Insulin Detemir (Levemir) 14 units Q12HR SUBQ 07/26/17 21:00 08/25/17 20:59 07/27/17 08:41 Levalbuterol HCl (Xopenex) 0.625 mg Q2H PRN HHN Shortness of Breath 07/25/17 18:15 07/30/17 08:14 Levalbuterol HCl (Xopenex) 0.625 mg Q4HRT HHN 07/25/17 19:00 07/30/17 10:59 07/27/17 06:32 Lorazepam (Ativan 2mg/ml 1ml) 1 mg Q3H PRN IV Breakthrough Anxiety/Agitation 07/25/17 18:30 07/31/17 18:29 Losartan Potassium (Cozaar) 100 mg DAILY ORAL 07/26/17 09:00 08/21/17 08:59 07/27/17 08:26 Metformin HCl (Glucophage) 500 mg TIAC ORAL 07/26/17 06:30 08/21/17 06:29 07/27/17 06:11 Methylprednisolone Sodium Succinate (Solu-MEDROL) 30 mg Q12HR IVP 07/25/17 21:00 08/24/17 09:29 07/27/17 08:25 Pantoprazole (Protonix) 40 mg DAILY ORAL 07/26/17 09:00 08/21/17 09:59 07/27/17 08:26 Sertraline HCl (Zoloft) 100 mg DAILY ORAL 07/26/17 09:00 08/21/17 08:59 07/27/17 08:26 Temazepam (Restoril) 30 mg HSPRN PRN ORAL Insomnia 07/25/17 21:00 08/01/17 20:59 07/26/17 21:41 Vancomycin HCl (Vanco rx to dose) 1 ea DAILY PRN MISC Per rx protocol 07/25/17 18:30 08/24/17 18:29 Vancomycin HCl/ Dextrose 250 ml @ 166.667 mls/hr Q12HR@0000,1200 IVPB 07/26/17 00:00 07/30/17 11:59 07/27/17 00:19 MIGUEL GILL Jul 27, 2017 09:34
[2017-07-27 12:00] VITALS: BP 163/87
[2017-07-27] MEDS ORDERED: METHYLPREDNISOL40 MG IVP (12:07)
[2017-07-27] MEDS ORDERED: CEFEPIME-D1 GM/50 ML IVPB (12:07)
[2017-07-27] MEDS ORDERED: XOPENEX0.5 MG HHN (12:07)
--- NOTE | 2017-07-27 13:34 | Critical Care Progress Note ---
Assessment/Plan Assessment/Plan IMPRESSION: 1. Respiratory failure, acute on chronic. 2. Acute on chronic carbon dioxide retention. 3. Chronic hypercapnia. 4. Chronic hypoxemia. 5. Chronic obstructive pulmonary disease with acute exacerbation. 6. Congestive heart failure per history. 7. Obstructive sleep apnea per history. 8. Metabolic alkalosis due to compensatory needs. 9. Hyperkalemia. 10. Hyperglycemia and diabetes. 11. History cancer. 12. History of congestive heart failure. 13. pneumonia PLAN care noted IV antibiotics respiratory care as is Ventilatory support off and stable SNF meds supportive care suction as needed stabilize oxygen therapy as is prognosis guarded keep negative nutrition taper solumedrol slowly to prednisone PARAMJIT care and hope to dc to SNF medications/laboratory data/nursing notes reviewed in detail note reviewed and edited care discussed with RN and RT Critical Care - Subjective Interval Events: improving alert reduced sob care noted Condition: stable EKG Rhythm: Sinus Rhythm I&O: Intake and Output 07/27/17 07/28/17 19:00 07:00 Intake Total 360 ml Output Total 700 ml Balance -340 ml Intake Oral 360 ml Output Urine Total 700 ml # Voids 1 Critical Care - Objective ET-Tube: 7.0 ET Position: 24 Last 24 Hour Vital Signs Date Time Temp Pulse Resp B/P (MAP) Pulse Ox O2 Delivery O2 Flow Rate FiO2 07/27/17 12:27 89 145/63 07/27/17 12:23 89 18 100 Nasal Cannula 2.0 07/27/17 12:18 83 18 98 Nasal Cannula 2.0 07/27/17 12:00 98.2 98 18 163/87 94 Nasal Cannula 2.0 07/27/17 08:26 145/63 07/27/17 08:00 97.2 94 18 140/74 95 Nasal Cannula 2.0 07/27/17 07:09 86 18 100 Nasal Cannula 2.0 07/27/17 06:46 Nasal Cannula 2.0 07/27/17 06:46 98 Nasal Cannula 2.0 07/27/17 06:46 85 18 98 Nasal Cannula 2.0 07/27/17 06:11 95 145/63 07/27/17 04:00 95 07/27/17 04:00 97.9 90 20 145/63 98 Bi-pap 2.0 35 07/27/17 03:06 81 20 98 Bi-pap 35 07/27/17 03:00 82 20 94 Bi-pap 35 07/27/17 00:20 86 145/62 07/27/17 00:00 97.0 75 20 142/62 99 Bi-pap 2.0 35 07/27/17 00:00 100 07/26/17 23:26 86 20 99 Bi-pap 35 07/26/17 23:20 94 20 97 Bi-pap 35 07/26/17 23:13 94 20 96 Facial 35 07/26/17 22:08 97.2 07/26/17 20:19 97.2 88 18 145/62 99 Nasal Cannula 2.0 07/26/17 20:00 88 07/26/17 19:31 85 20 99 Nasal Cannula 2.0 28 07/26/17 19:28 98 Nasal Cannula 2.0 28 07/26/17 19:28 Nasal Cannula 2.0 28 07/26/17 19:25 84 20 98 Nasal Cannula 2.0 28 07/26/17 17:35 92 128/61 07/26/17 16:00 82 07/26/17 15:30 92 20 98 Nasal Cannula 2.0 28 07/26/17 15:29 98.1 93 18 128/61 97 Nasal Cannula 2.0 07/26/17 15:25 90 20 98 Nasal Cannula 2.0 28 Labs: Laboratory Tests Test 07/27/17 06:40 Sodium Level 143 MMOL/L (136-145) Potassium Level 4.0 MMOL/L (3.5-5.1) Chloride Level 101 MMOL/L (98-107) Carbon Dioxide Level 40 MMOL/L (21-32) H Anion Gap 2 (5-15) L Blood Urea Nitrogen 23 mg/dL (7-18) H Creatinine 0.9 MG/DL (0.55-1.30) Estimat Glomerular Filtration Rate > 60 mL/min (>60) Glucose Level 325 MG/DL (74-106) H Calcium Level 8.9 MG/DL (8.5-10.1) Total Bilirubin 0.2 MG/DL (0.2-1.0) Aspartate Amino Transf (AST/SGOT) 7 U/L (15-37) L Alanine Aminotransferase (ALT/SGPT) 16 U/L (12-78) Alkaline Phosphatase 64 U/L (46-116) Total Protein 6.1 G/DL (6.4-8.2) L Albumin 2.7 G/DL (3.4-5.0) L Globulin 3.4 g/dL Albumin/Globulin Ratio 0.8 (1.0-2.7) L Objective: GENERAL: A well-developed female, on NC oxygen HEENT: Fairly negative. Pupils are reactive. on oxygen NC NECK: Supple and short. LUNGS: With moderate breath sounds with reduced air entry overall.no rhonchi and wheeze CARDIAC: S1 and S2 regular rate and rhythm without murmurs, rubs, or gallops. ABDOMEN: Soft, obese, nontender, rotund. no HSM EXTREMITIES: No cyanosis or clubbing. There is mild edema. NEUROLOGICAL: awake; nonfocal and weak reviewed and edited Accucheck: 219 OLIVER RAYMOND Jul 27, 2017 13:34
[2017-07-27] MEDS ORDERED: Tubing IV Secondary IV ONE (15:10)
[2017-07-27 16:21] VITALS: BP 134/70
[2017-07-27 20:00] VITALS: BP 144/75
[2017-07-27] MEDS: Atorvastatin 20mg tab ORAL SCH (20:30)
--- NOTE | 2017-07-27 23:30 | Discharge Summary ---
DATE OF ADMISSION: 07/21/2017 DATE OF DISCHARGE: 07/27/2017 ADMITTING DIAGNOSES: 1. Respiratory failure. 2. Chronic obstructive pulmonary disease exacerbation. 3. Pneumonia. 4. Diabetes. 5. Hypertension. DISCHARGE DIAGNOSES: 1. Respiratory failure. 2. Chronic obstructive pulmonary disease exacerbation. 3. Pneumonia. 4. Diabetes. 5. Hypertension. HOSPITAL COURSE: The patient is a pleasant female who comes in with respiratory failure secondary to pneumonia and chronic obstructive pulmonary disease exacerbation. She was admitted and started on broad-spectrum IV antibiotics. She received intravenous steroids and respiratory treatments [id number]. She was diuresed. The patient was self-extubated several days after being admitted and did well. On discharge, she is stable. She will be discharged to complete a week of antibiotic therapy. Steroids will also be tapered. DISCHARGE MEDICATIONS: Please see discharge medication list for discharge medications. DIET: Cardiac and diabetic diet. ACTIVITY: Ad-odilon. FOLLOWUP: The patient to follow up in one to two days at the [facility] facility. Floyd Downey M.D. DR: CLEMENT JOB#: [id number] CC:
[2017-07-28] MEDS: Levalbuterol Inh UD 1.25mg/0.5ml HHN SCH ×3 (00:02→07:29)
[2017-07-28] MEDS: dilTIAZem HCl 90mg tab ORAL SCH ×2 (00:15→06:22)
[2017-07-28 00:26] VITALS: BP 158/74
--- NOTE | 2017-07-28 04:15 | Progress Note ---
DATE: 07/27/2017 CARDIOLOGY PROGRESS NOTE SUBJECTIVE: The patient with less shortness of breath. Oxygen needs have improved. She is on tapering steroid doses. She continues to require respiratory therapy [id number]. OBJECTIVE: VITAL SIGNS: Blood pressure is 144/75, pulse 105, respiratory rate 20, and afebrile. Monitor atrial flutter. LUNGS: Diminished breath sounds. Scattered rhonchi and expiratory wheezes. HEART: Irregularly irregular rhythm. Normal S1 and S2. ABDOMEN: Soft. EXTREMITIES: Trace edema. LABORATORY DATA: Sodium is 143, potassium 4.0, bicarbonate 40, BUN 23, and creatinine 0.9. Albumin is 3.7. IMPRESSION: 1. Compensatory metabolic alkalosis. 2. Chronic obstructive pulmonary disease exacerbation. 3. Acute on chronic respiratory acidosis. 4. Insulin-requiring diabetes mellitus, uncontrolled. 5. Moderate protein-calorie malnutrition. 6. Acute on chronic diastolic congestive heart failure. 7. Hypertensive heart disease. 8. Paroxysmal atrial fibrillation/flutter with overall adequate rate control. PLAN: 1. Apixaban for cardioembolic prophylaxis. 2. Maintenance dose amiodarone. 3. Hold diuretics. 4. Monitor acid-base parameters. 5. Advance diabetic regimen, although expect improved glucose control with ongoing steroid taper. Werner Martinez M.D. DR: Aparna JOB#: [id number] CC:
[2017-07-28 04:30] VITALS: BP 162/107
[2017-07-28] MEDS: metFORMIN 500mg tab ORAL SCH (06:22)
[2017-07-28] MEDS: NovoLOG Insulin Flexpen SUBQ SCH (06:47)
[2017-07-28 07:45] VITALS: BP 153/93
--- NOTE | 2017-07-28 08:31 | General Progress Note ---
Assessment/Plan Problem List: (1) Acute dyspnea (2) Diabetes mellitus ICD Codes: E11.9 - Diabetes mellitus SNOMED: 23048362 (3) Hypertension, malignant ICD Codes: I10 - Hypertension, malignant SNOMED: 05819557 (4) COPD exacerbation ICD Codes: J44.1 - COPD exacerbation SNOMED: 161950281 (5) CHF (6) Hypercapnia ICD Codes: R06.89 - Other abnormalities of breathing SNOMED: 76206530 (7) Pneumonia ICD Codes: J18.9 - Pneumonia, unspecified organism SNOMED: 089136428 Qualifiers: Qualified Codes: J18.1 - Lobar pneumonia, unspecified organism Status: stable Assessment/Plan iv abx wean per pulm resp rx decreased steroids iv lasix- po at snf white for strict I and o monitoring replace lytes abx per ID dvt/stress ulcer prophylaxis insulin adjusted- increased tele dc planning- hopefully today Subjective ROS Limited/Unobtainable: No Constitutional: Reports: malaise, weakness HEENT: Reports: no symptoms Cardiovascular: Reports: no symptoms Respiratory: Reports: cough Gastrointestinal/Abdominal: Reports: no symptoms Genitourinary: Reports: no symptoms Neurologic/Psychiatric: Reports: no symptoms Endocrine: Reports: no symptoms Hematologic/Lymphatic: Reports: no symptoms Allergies: Coded Allergies: AMOXICILLIN (Verified Allergy, Mild, RASH HIVES, 09/29/13) CODEINE (Verified Allergy, Mild, RASH/HIVES, 09/29/13) IODINE (Verified Allergy, Unknown, 09/29/13) PENICILLINS (Verified Allergy, Unknown, RASH HIVES, 09/29/13) All Systems: reviewed and negative except above Subjective feels better today. decreased sob. no chest pain very hungry wants to go back to snf. was not discharged yesterday per snf bed was available Objective Last 24 Hour Vital Signs Date Time Temp Pulse Resp B/P (MAP) Pulse Ox O2 Delivery O2 Flow Rate FiO2 07/28/17 07:40 82 18 98 Nasal Cannula 2.0 28 07/28/17 07:30 82 18 98 Nasal Cannula 2.0 30 07/28/17 07:30 98 Nasal Cannula 2.0 28 07/28/17 07:30 Nasal Cannula 2.0 28 07/28/17 06:22 95 162/107 07/28/17 04:30 97.0 95 20 162/107 93 10/16/17 04:30 93 2.0 28 07/28/17 04:00 81 07/28/17 03:59 93 18 100 Bi-pap 30 07/28/17 03:30 93 18 92 Facial 35 07/28/17 03:30 93 18 92 Bi-pap 30 07/28/17 01:30 91 20 99 Facial 35 07/28/17 00:26 97.0 100 20 158/74 98 Room Air 07/28/17 00:15 96 144/75 07/28/17 00:11 96 19 98 Facial 35 07/28/17 00:00 93 07/27/17 23:45 98 18 100 Nasal Cannula 2.0 28 07/27/17 23:30 90 20 98 Nasal Cannula 2.0 28 07/27/17 21:00 105 07/27/17 20:00 97.8 105 20 144/75 Nasal Cannula 2.0 07/27/17 20:00 99 18 100 Nasal Cannula 2.0 28 07/27/17 19:30 98 Nasal Cannula 2.0 28 07/27/17 19:30 Nasal Cannula 2.0 28 07/27/17 19:30 98 20 99 Nasal Cannula 2.0 28 07/27/17 17:20 81 134/70 07/27/17 16:21 98.0 81 18 134/70 100 Nasal Cannula 2.0 07/27/17 16:09 93 18 100 Nasal Cannula 2.0 07/27/17 16:02 80 18 98 Nasal Cannula 2.0 07/27/17 16:00 89 07/27/17 12:27 89 145/63 07/27/17 12:23 89 18 100 Nasal Cannula 2.0 07/27/17 12:18 83 18 98 Nasal Cannula 2.0 07/27/17 12:00 98.2 98 18 163/87 94 Nasal Cannula 2.0 07/27/17 12:00 102 Height (Feet): 5 Weight (Pounds): 204 Objective General Appearance: WD/WN, calm. on nasal cannula Neck: supple Cardiovascular: normal rate Respiratory/Chest: lungs mostly clear. few wheezes noted- better than yesterday Abdomen: normal bowel sounds, non tender, soft, no organomegaly Edema: no edema noted Arm (L), no edema noted Arm (R), no edema noted Leg (L), no edema noted Leg (R), no edema noted Pedal (L), no edema noted Pedal (R), no edema noted Generalized Neurologic: a and o x 4 CRISTIANA BROCK Jul 28, 2017 08:31
--- NOTE | 2017-07-28 08:51 | Critical Care Progress Note ---
Assessment/Plan Assessment/Plan IMPRESSION: 1. Respiratory failure, acute on chronic. 2. Acute on chronic carbon dioxide retention. 3. Chronic hypercapnia. 4. Chronic hypoxemia. 5. Chronic obstructive pulmonary disease with acute exacerbation. 6. Congestive heart failure per history. 7. Obstructive sleep apnea per history. 8. Metabolic alkalosis due to compensatory needs. 9. Hyperkalemia. 10. Hyperglycemia and diabetes. 11. History cancer. 12. History of congestive heart failure. 13. pneumonia PLAN care noted IV antibiotics ?PO respiratory care as is Ventilatory support off and stable SNF meds supportive care suction as needed stabilize oxygen therapy as is prognosis guarded keep negative nutrition taper solumedrol to prednisone today hope to dc to SNF today medications/laboratory data/nursing notes reviewed in detail note reviewed and edited care discussed with RN and RT Critical Care - Subjective Interval Events: care noted now regular floor no distress Condition: improving EKG Rhythm: Sinus Rhythm Critical Care - Objective ET-Tube: 7.0 ET Position: 24 Last 24 Hour Vital Signs Date Time Temp Pulse Resp B/P (MAP) Pulse Ox O2 Delivery O2 Flow Rate FiO2 07/28/17 07:40 82 18 98 Nasal Cannula 2.0 28 07/28/17 07:30 82 18 98 Nasal Cannula 2.0 30 07/28/17 07:30 98 Nasal Cannula 2.0 28 07/28/17 07:30 Nasal Cannula 2.0 28 07/28/17 06:22 95 162/107 07/28/17 04:30 97.0 95 20 162/107 93 07/28/17 04:30 93 2.0 28 07/28/17 04:00 81 07/28/17 03:59 93 18 100 Bi-pap 30 07/28/17 03:30 93 18 92 Facial 35 07/28/17 03:30 93 18 92 Bi-pap 30 07/28/17 01:30 91 20 99 Facial 35 07/28/17 00:26 97.0 100 20 158/74 98 Room Air 07/28/17 00:15 96 144/75 07/28/17 00:11 96 19 98 Facial 35 07/28/17 00:00 93 07/27/17 23:45 98 18 100 Nasal Cannula 2.0 28 07/27/17 23:30 90 20 98 Nasal Cannula 2.0 28 07/27/17 21:00 105 07/27/17 20:00 97.8 105 20 144/75 Nasal Cannula 2.0 07/27/17 20:00 99 18 100 Nasal Cannula 2.0 28 07/27/17 19:30 98 Nasal Cannula 2.0 28 07/27/17 19:30 Nasal Cannula 2.0 28 07/27/17 19:30 98 20 99 Nasal Cannula 2.0 28 07/27/17 17:20 81 134/70 07/27/17 16:21 98.0 81 18 134/70 100 Nasal Cannula 2.0 07/27/17 16:09 93 18 100 Nasal Cannula 2.0 07/27/17 16:02 80 18 98 Nasal Cannula 2.0 07/27/17 16:00 89 07/27/17 12:27 89 145/63 07/27/17 12:23 89 18 100 Nasal Cannula 2.0 07/27/17 12:18 83 18 98 Nasal Cannula 2.0 07/27/17 12:00 98.2 98 18 163/87 94 Nasal Cannula 2.0 07/27/17 12:00 102 Labs: Labs Test 07/26/17 06:20 07/26/17 11:20 07/27/17 06:40 White Blood Count 11.0 K/UL (4.8-10.8) Red Blood Count 3.43 M/UL (4.20-5.40) Hemoglobin 9.9 G/DL (12.0-16.0) Hematocrit 32.5 % (37.0-47.0) Mean Corpuscular Volume 95 FL (80-99) Mean Corpuscular Hemoglobin 28.8 PG (27.0-31.0) Mean Corpuscular Hemoglobin Concent 30.3 G/DL (32.0-36.0) Red Cell Distribution Width 14.3 % (11.6-14.8) Platelet Count 227 K/UL (150-450) Mean Platelet Volume 8.8 FL (6.5-10.1) Neutrophils (%) (Auto) % (45.0-75.0) Lymphocytes (%) (Auto) % (20.0-45.0) Monocytes (%) (Auto) % (1.0-10.0) Eosinophils (%) (Auto) % (0.0-3.0) Basophils (%) (Auto) % (0.0-2.0) Differential Total Cells Counted 100 Neutrophils % (Manual) 92 % (45-75) Lymphocytes % (Manual) 6 % (20-45) Monocytes % (Manual) 2 % (1-10) Eosinophils % (Manual) 0 % (0-3) Basophils % (Manual) 0 % (0-2) Band Neutrophils 0 % (0-8) Platelet Estimate Adequate Platelet Morphology Normal Sodium Level 133 MMOL/L (136-145) 143 MMOL/L (136-145) Potassium Level 3.6 MMOL/L (3.5-5.1) 4.0 MMOL/L (3.5-5.1) Chloride Level 98 MMOL/L (98-107) 101 MMOL/L (98-107) Carbon Dioxide Level 37 MMOL/L (21-32) 40 MMOL/L (21-32) Anion Gap -2 (5-15) 2 (5-15) Blood Urea Nitrogen 30 mg/dL (7-18) 23 mg/dL (7-18) Creatinine 1.0 MG/DL (0.55-1.30) 0.9 MG/DL (0.55-1.30) Estimat Glomerular Filtration Rate > 60 mL/min (>60) > 60 mL/min (>60) Glucose Level 344 MG/DL (74-106) 325 MG/DL (74-106) Calcium Level 8.3 MG/DL (8.5-10.1) 8.9 MG/DL (8.5-10.1) Total Bilirubin 0.2 MG/DL (0.2-1.0) 0.2 MG/DL (0.2-1.0) Aspartate Amino Transf (AST/SGOT) 11 U/L (15-37) 7 U/L (15-37) Alanine Aminotransferase (ALT/SGPT) 16 U/L (12-78) 16 U/L (12-78) Alkaline Phosphatase 60 U/L (46-116) 64 U/L (46-116) Pro-B-Type Natriuretic Peptide 460 (0-125) Total Protein 5.7 G/DL (6.4-8.2) 6.1 G/DL (6.4-8.2) Albumin 2.5 G/DL (3.4-5.0) 2.7 G/DL (3.4-5.0) Globulin 3.2 g/dL 3.4 g/dL Albumin/Globulin Ratio 0.8 (1.0-2.7) 0.8 (1.0-2.7) Vancomycin Level Trough 16.1 ug/mL (5.0-12.0) Objective: GENERAL: A well-developed female, on NC oxygen awake HEENT: Fairly negative. Pupils are reactive. on oxygen NC NECK: Supple and short. LUNGS: With moderate breath sounds with reduced air entry overall.no rhonchi and only occasional wheeze CARDIAC: S1 and S2 regular rate and rhythm without murmurs, rubs, or gallops. ABDOMEN: Soft, obese, nontender, rotund. no HSM EXTREMITIES: No cyanosis or clubbing. There is mild edema. no change NEUROLOGICAL: awake; nonfocal and weak but oriented reviewed and edited Accucheck: 270 OLIVER RAYMOND Jul 28, 2017 08:51
[2017-07-28] MEDS ORDERED: Amiodarone 200mg tab ORAL SCH (09:00)
--- NOTE | 2017-07-28 10:07 | Infectious Diseases Prog Note ---
Assessment/Plan Assessment/Plan A 1. pneumonia 2. COPD exacerbation 3. respiratory failure, hypercapnic 4. DM 5. Anemia P 1. continue cefepime in hospital 2. in case of discharge PO Levaquin X 1 day Subjective ROS Limited/Unobtainable: No Constitutional: Reports: no symptoms Respiratory: Reports: no symptoms Cardiovascular: Reports: no symptoms Gastrointestinal/Abdominal: Reports: no symptoms Genitourinary: Reports: no symptoms, other - Lee was removed Allergies: Coded Allergies: AMOXICILLIN (Verified Allergy, Mild, RASH HIVES, 09/29/13) CODEINE (Verified Allergy, Mild, RASH/HIVES, 09/29/13) IODINE (Verified Allergy, Unknown, 09/29/13) PENICILLINS (Verified Allergy, Unknown, RASH HIVES, 09/29/13) Objective Vital Signs Last 24 Hour Vital Signs Date Time Temp Pulse Resp B/P (MAP) Pulse Ox O2 Delivery O2 Flow Rate FiO2 07/28/17 07:45 97.5 98 20 153/93 95 Nasal Cannula 2.0 07/28/17 07:40 82 18 98 Nasal Cannula 2.0 28 07/28/17 07:30 82 18 98 Nasal Cannula 2.0 30 07/28/17 07:30 98 Nasal Cannula 2.0 28 07/28/17 07:30 Nasal Cannula 2.0 28 07/28/17 06:22 95 162/107 07/28/17 04:30 97.0 95 20 162/107 93 07/28/17 04:30 93 2.0 28 07/28/17 04:00 81 07/28/17 03:59 93 18 100 Bi-pap 30 07/28/17 03:30 93 18 92 Facial 35 07/28/17 03:30 93 18 92 Bi-pap 30 07/28/17 01:30 91 20 99 Facial 35 07/28/17 00:26 97.0 100 20 158/74 98 Room Air 07/28/17 00:15 96 144/75 07/28/17 00:11 96 19 98 Facial 35 07/28/17 00:00 93 07/27/17 23:45 98 18 100 Nasal Cannula 2.0 28 07/27/17 23:30 90 20 98 Nasal Cannula 2.0 28 07/27/17 21:00 105 07/27/17 20:00 97.8 105 20 144/75 Nasal Cannula 2.0 07/27/17 20:00 99 18 100 Nasal Cannula 2.0 28 07/27/17 19:30 98 Nasal Cannula 2.0 28 07/27/17 19:30 Nasal Cannula 2.0 28 07/27/17 19:30 98 20 99 Nasal Cannula 2.0 28 07/27/17 17:20 81 134/70 07/27/17 16:21 98.0 81 18 134/70 100 Nasal Cannula 2.0 07/27/17 16:09 93 18 100 Nasal Cannula 2.0 07/27/17 16:02 80 18 98 Nasal Cannula 2.0 07/27/17 16:00 89 07/27/17 12:27 89 145/63 07/27/17 12:23 89 18 100 Nasal Cannula 2.0 07/27/17 12:18 83 18 98 Nasal Cannula 2.0 07/27/17 12:00 98.2 98 18 163/87 94 Nasal Cannula 2.0 07/27/17 12:00 102 Height (Feet): 5 Weight (Pounds): 204 General Appearance: no acute distress HEENT: mucous membranes moist Respiratory/Chest: lungs clear Cardiovascular: normal rate Abdomen: soft, non tender Extremities: no edema Neurologic/Psychiatric: alert, oriented x 3, responsive Current Medications Medications (Trade) Dose Ordered Sig/Sera Route PRN Reason Start Time Stop Time Status Last Admin Dose Admin Acetaminophen (Tylenol) 650 mg Q4H PRN ORAL Mild Pain/Temp > 100.5 07/25/17 18:15 08/24/17 06:14 07/27/17 09:04 Acetaminophen/ Hydrocodone Bitart ([place] 5/325) 1 tab Q4H PRN ORAL Moderate Pain (Pain Scale 4-6) 07/26/17 11:00 08/02/17 10:59 07/26/17 11:48 Amiodarone HCl (Cordarone) 200 mg DAILY ORAL 07/28/17 09:00 08/21/17 18:29 Apixaban (Eliquis) 5 mg BID ORAL 07/25/17 18:30 08/21/17 18:29 07/27/17 17:20 Atorvastatin Calcium (Lipitor) 20 mg BEDTIME ORAL 07/25/17 21:00 08/21/17 20:59 07/27/17 20:30 Cefepime HCl 1 gm/ Dextrose 55 ml @ 110 mls/hr EVERY 12 HOURS IVPB 07/25/17 21:00 07/29/17 10:59 07/27/17 20:31 Clonidine HCl (Catapres) 0.1 mg Q4H PRN ORAL SBP > 160mmHg 07/25/17 18:30 08/24/17 18:29 Dextrose (Dextrose 50%) STAT PRN IV Hypoglycemia 07/25/17 18:30 08/24/17 18:29 Diltiazem HCl (Cardizem) 90 mg EVERY 6 HOURS ORAL 07/25/17 18:30 08/21/17 18:29 07/28/17 06:22 Docusate Sodium (Colace) 100 mg TWICE A DAY ORAL 07/25/17 18:30 08/21/17 18:29 07/27/17 17:20 Insulin Aspart (NovoLOG) BEFORE MEALS AND HS SUBQ 07/25/17 21:00 08/23/17 11:29 07/28/17 06:47 Insulin Detemir (Levemir) 14 units Q12HR SUBQ 07/26/17 21:00 08/25/17 20:59 07/27/17 20:35 Levalbuterol HCl (Xopenex) 0.625 mg Q2H PRN HHN Shortness of Breath 07/25/17 18:15 07/30/17 08:14 Levalbuterol HCl (Xopenex) 0.625 mg Q4HRT HHN 07/25/17 19:00 07/30/17 10:59 07/28/17 07:29 Lorazepam (Ativan 2mg/ml 1ml) 1 mg Q3H PRN IV Breakthrough Anxiety/Agitation 07/25/17 18:30 07/31/17 18:29 Losartan Potassium (Cozaar) 100 mg DAILY ORAL 07/26/17 09:00 08/21/17 08:59 07/27/17 08:26 Metformin HCl (Glucophage) 500 mg TIAC ORAL 07/26/17 06:30 08/21/17 06:29 07/28/17 06:22 Pantoprazole (Protonix) 40 mg DAILY ORAL 07/26/17 09:00 08/21/17 09:59 07/27/17 08:26 Prednisone (predniSONE) 20 mg DAILY ORAL 07/28/17 09:00 08/27/17 08:59 Sertraline HCl (Zoloft) 100 mg DAILY ORAL 07/26/17 09:00 08/21/17 08:59 07/27/17 08:26 Temazepam (Restoril) 30 mg HSPRN PRN ORAL Insomnia 07/25/17 21:00 08/01/17 20:59 07/26/17 21:41 MIGUEL GILL Jul 28, 2017 10:07
[2017-07-28] MEDS: Losartan 50mg tab ORAL SCH (10:19)
[2017-07-28] MEDS: Eliquis 2.5mg tablet ORAL SCH (10:19)
[2017-07-28] MEDS: Docusate 100mg cap ORAL SCH (10:20)
[2017-07-28] MEDS: Cefepime HCl 1 GM in D5W 55 ML IVPB SCH (10:41)
[2017-07-28] MEDS: Sertraline 100mg tab ORAL SCH (10:50)
[2017-07-28] MEDS: Levemir Flexpen SUBQ SCH (10:54)
--- NOTE | 2017-07-28 11:00 | Progress Note ---
DATE: 07/26/2017 Late entry report for 07/26/2017. SUBJECTIVE: The patient was seen and examined. Status post reviewed with Dr. Downey. The patient is less congested and has less shortness of breath. Monitor reveals atrial flutter, rate controlled. OBJECTIVE: VITAL SIGNS: Blood pressure 155/78, heart rate is 93, and respiratory rate 20. LUNGS: Bilateral breath sounds. Few rales and expiratory wheezes. HEART: Irregularly irregular rhythm. Normal S1 and S2 with no new murmur. ABDOMEN: Soft. EXTREMITIES: With trace edema. LABORATORY DATA: White count is 11 and hemoglobin 10. Glucose 344, sodium 133, potassium 3.6, bicarbonate 37, BUN 30, and creatinine 1.0. IMPRESSION: 1. Chronic obstructive pulmonary disease exacerbation. 2. Hypoxia. 3. Atrial fibrillation/flutter with overall adequate rate control. 4. Hypertensive heart disease. 5. Acute on chronic diastolic congestive heart failure. 6. Healthcare-acquired pneumonia. 7. Acute bronchospasm. 8. Contraction alkalosis. 9. Acute on chronic respiratory acidosis. 10. Severe protein-calorie malnutrition. PLAN: 1. Cautious diuresis. 2. Taper steroids. 3. Adjust diabetic regimen. 4. Antibiotics per Infectious Diseases business objects consultant. 5. Maintenance dose amiodarone to follow over the next several days. 6. Continue Cardizem for rate control. 7. Monitor volume status and cardiorenal parameters and reassess diuretic dosing [facility] for maintenance. 8. Consideration for DC cardioversion. 9. We will follow once respiratory status has stabilized further. Werner Martinez M.D. DR: Aparna JOB#: [id number] CC:
[2017-07-28 11:27] LABS: BASOPHILS % (AUTO) 2.3 % (0.0-2.0); EOSINOPHILS % (AUTO) 0.1 % (0.0-3.0); LYMPHOCYTES % (AUTO) 20.3 % (20.0-45.0); MEAN CORPUSCULAR HEMOGLOBIN 28.6 PG (27.0-31.0); MEAN CORPUSCULAR VOLUME 92 FL (80-99); MEAN PLATELET VOLUME 8.3 FL (6.5-10.1); MONOCYTES % (AUTO) 9.6 % (1.0-10.0); NEUTROPHILS % (AUTO) 67.6 % (45.0-75.0); PLATELET COUNT 243 K/UL (150-450); RED BLOOD COUNT 3.99 M/UL (4.20-5.40); RED CELL DISTRIBUTION WIDTH 13.9 % (11.6-14.8); WHITE BLOOD COUNT 13.6 K/UL (4.8-10.8)
[2017-07-28] MEDS ORDERED: dilTIAZem HCl 30mg tab ONE (11:46)
[2017-07-28 12:00] VITALS: BP 153/93
[2017-07-28] MEDS ORDERED: metFORMIN 500mg tab ORAL SCH (12:00)
[2017-07-28] MEDS ORDERED: NovoLOG Insulin Flexpen SUBQ SCH (12:00)
[2017-07-28] MEDS ORDERED: Norco 5mg/325mg tab ORAL PRN (12:00)
[2017-07-28] MEDS ORDERED: Levalbuterol Inh UD 1.25mg/0.5ml HHN PRN (12:00)
[2017-07-28] MEDS ORDERED: LORazepam Inj 2mg/ml 1ml IV PRN (12:00)
[2017-07-28] MEDS ORDERED: dilTIAZem HCl 90mg tab ORAL SCH (12:00)
[2017-07-28] MEDS ORDERED: NS 275ml ONE (12:33)
[2017-07-28 13:17] LABS: ALANINE AMINOTRANSFERASE 19 U/L (12-78); ALBUMIN/GLOBULIN RATIO 0.9 (1.0-2.7); ANION GAP 5 mmol/L (5-15); ASPARTATE AMINO TRANSFERASE 10 U/L (15-37); CALCIUM 9.6 MG/DL (8.5-10.1); CARBON DIOXIDE 40 MMOL/L (21-32); CHLORIDE 101 MMOL/L (98-107); CREATININE 0.9 MG/DL (0.55-1.30); GLOMERULAR FILTRATION RATE > 60 mL/min (>60); MAGNESIUM 1.2 MG/DL (1.8-2.4); POTASSIUM 3.6 MMOL/L (3.5-5.1); SODIUM 146 MMOL/L (136-145); TOTAL PROTEIN 6.5 G/DL (6.4-8.2)
[2017-07-28] MEDS ORDERED: Levalbuterol Inh UD 1.25mg/0.5ml HHN SCH (15:00)
[2017-07-28] MEDS ORDERED: Docusate 100mg cap ORAL SCH (18:00)
[2017-07-28] MEDS ORDERED: Eliquis 2.5mg tablet ORAL SCH (18:00)
[2017-07-28] MEDS ORDERED: Levemir Flexpen SUBQ SCH (21:00)
[2017-07-28] MEDS ORDERED: Atorvastatin 20mg tab ORAL SCH (21:00)
--- NOTE | 2017-07-29 06:00 | Progress Note ---
DATE: 07/28/2017 CARDIOLOGY PROGRESS NOTE SUBJECTIVE: The patient's shortness of breath has decreased. She continues to have swelling at times and requires diuretic therapy. She is on steroid tapering. On cardiac cath technologist, atrial fibrillation/flutter. OBJECTIVE: VITAL SIGNS: Blood pressure 162/107 max this morning and subsequently 153/93, heart rate 98, and respiratory rate 20. NECK: Supple. LUNGS: With coarse breath sounds, rhonchi, and no wheezes. CARDIAC: Irregularly irregular rhythm. ABDOMEN: Soft and nontender. EXTREMITIES: Trace edema. ASSESSMENT: 1. Chronic obstructive pulmonary disease exacerbation, improving. 2. Healthcare-acquired pneumonia, resolving. 3. Paroxysmal bronchospasm. 4. History of breast cancer. 5. Accelerated hypertension with labile blood pressure readings. 6. Acute and chronic diastolic congestive heart failure. 7. Mild pulmonary hypertension. 8. Paroxysmal atrial fibrillation/flutter. PLAN: 1. Advance oral antihypertensive therapies. 2. Maintenance diuresis. 3. Maintenance dose amiodarone. 4. Taper steroids. 5. Expect improved blood pressure parameters once off steroids completely. 6. Continue cardioembolic prophylaxis with apixaban. 7. Consider DC cardioversion in the next few weeks if fails to convert to sinus rhythm and respiratory parameters improve. Werner Martinez M.D. DR: MELISSA JOB#: [id number] CC:
[2017-07-29] MEDS ORDERED: Losartan 50mg tab ORAL SCH (09:00)
[2017-07-29] MEDS ORDERED: Sertraline 100mg tab ORAL SCH (09:00)
[2017-07-29] MEDS ORDERED: Amiodarone 200mg tab ORAL SCH (09:00)
--- NOTE | 2017-08-01 15:42 | Cardiology Report ---
APPROVED REPORT EKG Measurement Heart [id number] [place] [id number] Sinus tachycardia Biatrial enlargement Abnormal ECG
== END 2017-07-28 12:34 | DRG 208 ==
LOC: EDBD 20:37 → EMR 21:10 → 2W 21:16 → EDBEDREQ 22:15 → 2W 22:58 → EDBEDREQ 07-22 05:28 → ICU 07-22 05:40 → 2E 07-25 17:30 → 4E 07-28 08:00
DX: J96.21 Acute and chronic respiratory failure with hypoxia (principal); I50.33 Acute on chronic diastolic (congestive) heart failure; J18.9 Pneumonia, unspecified organism; I27.20 Pulmonary hypertension, unspecified; E87.3 Alkalosis; I11.0 Hypertensive heart disease with heart failure; J44.0 Chronic obstructive pulmonary disease with (acute) lower respiratory infection; I48.92 Unspecified atrial flutter; J44.1 Chronic obstructive pulmonary disease with (acute) exacerbation; E11.65 Type 2 diabetes mellitus with hyperglycemia; Z99.81 Dependence on supplemental oxygen; J96.22 Acute and chronic respiratory failure with hypercapnia; I48.0 Paroxysmal atrial fibrillation; E87.5 Hyperkalemia; E66.9 Obesity, unspecified; Z68.39 Body mass index [BMI] 39.0-39.9, adult; M19.90 Unspecified osteoarthritis, unspecified site; F17.210 Nicotine dependence, cigarettes, uncomplicated; G47.33 Obstructive sleep apnea (adult) (pediatric); Z85.3 Personal history of malignant neoplasm of breast; Z85.42 Personal history of malignant neoplasm of other parts of uterus; Z91.19 Patient's noncompliance with other medical treatment and regimen
CPT/HCPCS: 31500; 36415; 36600; 71010; 74000; 80053; 80162; 80202; 82550; 82553; 82803; 82962; 83735; 83880; 84478; 84484; 85007; 85025; 86713; 86738; 87040; 87070; 87081; 87205; 93005; 93306; 94002; 94003; 94640; 94660; 94760; J1815; J2250; J7620; J8499; S5561

== ENCOUNTER 2017-10-13 06:19 | Inpatient (IN) | payer MEDICARE, MEDICAID ==
[2017-10-13] VITALS (9 sets, daily range): BP systolic 117–150; BP diastolic 58–84
[~2017-10-13] VITALS: Ht 175.3 cm; Wt 97.1 kg
[~2017-10-13 06:19] MED LIST changes: +ALBUTEROL2.5 MG/3 M INH; +AMIODARONE HCL400 M1 ORAL; +ATORVASTATIN CA20 MG ORAL; +Albuterol ud Inhalation HHN SCH; +CATAPRES0.1 MG ORAL; +CEFEPIME-D1 GM/50 ML IVPB; +DILTIAZEM 24HR120 M1 ORAL; +DOCUSATE SODIU100 MG ORAL; +ELIQUIS5 MG PO; +FUROSEMIDE20 M1 ORAL; +LEVEMIR FL100 UNIT/1 SUBQ; +LOSARTAN POTASS25 MG ORAL; +METFORMIN HCL500 M1 ORAL; +METHYLPREDNISOL40 MG IVP; +PANTOPRAZOLE SO40 MG ORAL; +SERTRALINE HCL25 MG ORAL; +Solu-MEDROL 125mg Inj IVP ONE; +TEMAZEPAM15 MG ORAL; +XOPENEX0.5 MG HHN; +ZOFRAN8 MG ORAL
[2017-10-13] MEDS ORDERED: Levalbuterol Inh UD 1.25mg/0.5ml ONE (06:23)
--- NOTE | 2017-10-13 07:13 | Emergency Room Report ---
History of Present Illness General Chief Complaint: Dyspnea/Respdistress Source: Medical Record Present Illness HPI 57-year-old female with history of COPD, recent right lower extremity fracture, and rehabilitation,, p/w SOB for 2 days. SOB occurs both at rest and on exertion. + productive cough with sputum, Denies chest pain. Patient has been using albuterol inhaler today. Also states that she is on 24 hour oxygen, 3 L, also uses a CPAP at night. Pt states that this episode is similar to other episodes of COPD exacerbation. Denies fever, chills. Denies sick contacts or recent travel. Allergies: Coded Allergies: AMOXICILLIN (Verified Allergy, Mild, RASH HIVES, 09/29/13) CODEINE (Verified Allergy, Mild, RASH/HIVES, 09/29/13) ERYTHROMYCIN BASE (Unverified Allergy, Unknown, 10/13/17) IODINE (Verified Allergy, Unknown, 09/29/13) PENICILLINS (Verified Allergy, Unknown, RASH HIVES, 09/29/13) Patient History Past Medical History: see triage record Past Surgical History: none Pertinent Family History: none Last Menstrual Period: n/a Reviewed Nursing Documentation: PMH: Agreed, PSxH: Agreed Nursing Documentation-PMH Past Medical History: No History, Except For Hx Cardiac Problems: Yes - chf Hx Hypertension: Yes Hx Pacemaker: No Hx Asthma: Yes Hx COPD: Yes Hx Diabetes: Yes - dm2 Hx Cancer: Yes - right mastectomy Hx Gastrointestinal Problems: Yes History Of Psychiatric Problem: Yes - chronic depressive disorder Hx Neurological Problems: No Review of Systems All Other Systems: negative except mentioned in HPI Physical Exam Vital Signs Date Time Temp Pulse Resp B/P (MAP) Pulse Ox O2 Delivery O2 Flow Rate FiO2 10/13/17 05:51 70 22 135/75 100 Non-Rebreather 15.0 10/13/17 06:20 32 10/13/17 06:25 97.9 Sp02 EP Interpretation: abnormal General Appearance: other - Moderately short of breath however she is speaking complete sentences Head: normocephalic, atraumatic Eyes: bilateral eye normal inspection, bilateral eye PERRL, bilateral eye EOMI ENT: normal ENT inspection, normal pharynx, normal voice, moist mucus membranes Neck: normal inspection, full range of motion, supple Respiratory: other - insp and exp wheezing b/l Cardiovascular #1: normal capillary refill, tachycardia Cardiovascular #2: 2+ radial (R), 2+ radial (L) Gastrointestinal: normal inspection, non tender, soft, non-distended, no guarding Musculoskeletal: back normal, other - RLE in splint Neurologic: normal inspection, alert, oriented x3, responsive, motor strength/ tone normal, sensory intact, normal gait, speech normal Psychiatric: normal inspection, judgement/insight normal, memory normal Skin: normal inspection, normal color, no rash, warm/dry, well hydrated, normal turgor Procedures Critical Care Time Critical Care Time 40 minutes of CC time 57-year-old female with dyspnea VS: Tachycardic, hypoxic, tachypneic Airway patent. Not hypoxic. PLAN: IV access, labs, lactate, troponin, Blood/Urine Cx, Abx, IVF Anticipate admission to Tele vs. [facility] CC time also includes review of labs, review of EMR, discussion with family and paperwork from SNF, d/w hospitalist CC could include dosing of pressors, additional Abx CC time does not include procedures Medical Decision Making Diagnostic Impression: Primary Impression: COPD exacerbation Additional Impressions: Fluid overload Pneumonia Sepsis ER Course 57-year-old female with pmhx of COPD p/w SOB for 2 days. DDX: COPD exacerbation, CHF, ACS, pneumonia Plan: IV access, mat worker, O2 nasal cannula, EKG, CXR obtain basic labs including blood gas, troponin, Duonebs, steroids Will consider BIPAP for persistent or worsening respiratory status ER Course: Patient's respiratory status has been closely monitored in the ED. Patient has been treated with combivent x 3, steroids abx given - wbc elevated. CXR shows fluid overload similar to previous XR, given 40mg lasix Repeat lung auscultation reveals persistent wheezing patient started on bipap she is awake and alert, not lethargic Sepsis Re-examination Time: 11 AM VS: Temp 98 HR 111 BP 120/80 RR 25 CVS: Tachycardic Respiratory: Expiratory wheezing Peripheral pulses: 2+ radial Capillary refill: <2 seconds Skin exam: warm, dry, no rash, not mottled Disposition: Patient will be admitted to [facility] D/W hospitalist.Dr Brock Please note that this Emergency Department Report was dictated using [employer]der[employer]graphical technical officer technology software, occasionally this can lead to erroneous entry secondary to interpretation by the dictation equipment. EKG Diagnostic Results EP Interpretation: Yes Rate: normal Rhythm: NSR ST Segments: No acute changes ASA given to patient: no Rhythm Strip EP Interpretation: Yes Rate: 110 Rhythm: NSR, no PVCs, no ectopy Chest X-ray CXR: Ordered: Yes 1 view Indication: Shortness of breath EP interpretation: Yes Interpretation: Cardiomegaly with pulmonary vascular infiltrate Impression: Cardiomegaly with pulmonary vascular congestion Electronically signed by Bunny Hartman MD Laboratory Tests Test 10/13/17 07:50 10/13/17 08:50 10/13/17 09:00 White Blood Count 18.0 K/UL (4.8-10.8) H Red Blood Count 3.09 M/UL (4.20-5.40) L Hemoglobin 8.5 G/DL (12.0-16.0) L Hematocrit 28.9 % (37.0-47.0) L Mean Corpuscular Volume 93 FL (80-99) Mean Corpuscular Hemoglobin 27.5 PG (27.0-31.0) Mean Corpuscular Hemoglobin Concent 29.5 G/DL (32.0-36.0) L Red Cell Distribution Width 14.9 % (11.6-14.8) H Platelet Count 255 K/UL (150-450) Mean Platelet Volume 7.8 FL (6.5-10.1) Neutrophils (%) (Auto) % (45.0-75.0) Lymphocytes (%) (Auto) % (20.0-45.0) Monocytes (%) (Auto) % (1.0-10.0) Eosinophils (%) (Auto) % (0.0-3.0) Basophils (%) (Auto) % (0.0-2.0) Differential Total Cells Counted 100 Neutrophils % (Manual) 84 % (45-75) H Lymphocytes % (Manual) 9 % (20-45) L Monocytes % (Manual) 6 % (1-10) Eosinophils % (Manual) 0 % (0-3) Basophils % (Manual) 0 % (0-2) Band Neutrophils 1 % (0-8) Platelet Estimate Adequate Platelet Morphology Normal Hypochromasia 2+ Anisocytosis 1+ Sodium Level 141 MMOL/L (136-145) Potassium Level 3.7 MMOL/L (3.5-5.1) Chloride Level 99 MMOL/L (98-107) Carbon Dioxide Level 40 MMOL/L (21-32) H Anion Gap 3 mmol/L (5-15) L Blood Urea Nitrogen 20 mg/dL (7-18) H Creatinine 0.8 MG/DL (0.55-1.30) Estimate Glomerular Filtration Rate > 60 mL/min (>60) Glucose Level 176 MG/DL (74-106) H Lactic Acid Level 0.50 mmol/L (0.66-2.22) L Calcium Level 7.9 MG/DL (8.5-10.1) L Total Bilirubin 0.2 MG/DL (0.2-1.0) Aspartate Amino Transferase (AST) 25 U/L (15-37) Alanine Aminotransferase (ALT) 44 U/L (12-78) Alkaline Phosphatase 81 U/L (46-116) Total Creatine Kinase 16 U/L (26-308) L Creatine Kinase MB < 0.5 NG/ML (0.0-3.6) Creatine Kinase MB Relative Index Troponin I 0.006 ng/mL (0.000-0.056) Pro-B-Type Natriuretic Peptide 3426 pg/mL (0-125) H Total Protein 6.7 G/DL (6.4-8.2) Albumin 2.9 G/DL (3.4-5.0) L Globulin 3.8 g/dL Albumin/Globulin Ratio 0.8 (1.0-2.7) L Urine Color Pale yellow Urine Appearance Clear Urine pH 6 (4.5-8.0) Urine Specific Kempner 1.015 (1.005-1.035) Urine Protein 2+ (NEGATIVE) H Urine Glucose (UA) Negative (NEGATIVE) Urine Ketones Negative (NEGATIVE) Urine Occult Blood Negative (NEGATIVE) Urine Nitrite Negative (NEGATIVE) Urine Bilirubin Negative (NEGATIVE) Urine Urobilinogen Normal MG/DL (0.0-1.0) Urine Leukocyte Esterase Negative (NEGATIVE) Urine RBC 0-2 /HPF (0 - 2) Urine WBC 0-2 /HPF (0 - 2) Urine Squamous Epithelial Cells Occasional /LPF Urine Bacteria Occasional /HPF (NONE) Urine Hyaline Casts 0-2 /LPF (NONE) H Urine Fine Granular Casts 0-2 /LPF (NONE) H Arterial Blood pH 7.290 (7.350-7.450) Arterial Blood Partial Pressure CO2 80.7 mmHg (35.0-45.0) *H Arterial Blood Partial Pressure O2 61.7 mmHg (75.0-100.0) L Arterial Blood HCO3 38.4 mmol/L (22.0-26.0) H Arterial Blood Oxygen Saturation 87.6 % (92.0-98.0) L Arterial Blood Base Excess 9.8 Rico Test Positive Microbiology Date/Time Source Procedure Growth Status 10/13/17 08:45 Nasal Nares Influenza Types A,B Antigen (MARITZA) - Final Complete Last Vital Signs Date Time Temp Pulse Resp B/P (MAP) Pulse Ox O2 Delivery O2 Flow Rate FiO2 10/13/17 06:46 108 20 99 Nasal Cannula 3.0 32 10/13/17 06:25 97.9 135/75 Disposition: ADMITTED INPATIENT Condition: Critical Referrals: CRISTIANA BROCK (PCP) Bunny Hartman M.D. Oct 13, 2017 07:13
[2017-10-13] MEDS: Levalbuterol Inh UD 1.25mg/0.5ml HHN SCH ×8 (07:15→22:56)
[2017-10-13] MEDS ORDERED: Vancomycin 1.5gm/D5W 250ml 250 ML IVPB ONE (07:15)
[2017-10-13] MEDS ORDERED: Tubing IV Cassette IV ONE ×3 (07:36→14:26)
[2017-10-13] MEDS: Ipratropium 0.02% Inh Soln 2.5ml UD HHN SCH ×3 (07:39→07:49)
[2017-10-13 08:12] LABS: HEMATOCRIT 28.9 % (37.0-47.0); HEMOGLOBIN 8.5 G/DL (12.0-16.0); MEAN CORPUSCULAR VOLUME 93 FL (80-99); PLATELET COUNT 255 K/UL (150-450); RED BLOOD COUNT 3.09 M/UL (4.20-5.40); RED CELL DISTRIBUTION WIDTH 14.9 % (11.6-14.8)
[2017-10-13 08:21] LABS: ANION GAP 3 mmol/L (5-15); BLOOD UREA NITROGEN 20 mg/dL (7-18); CALCIUM 7.9 MG/DL (8.5-10.1); CARBON DIOXIDE 40 MMOL/L (21-32); CHLORIDE 99 MMOL/L (98-107); CREATININE 0.8 MG/DL (0.55-1.30); POTASSIUM 3.7 MMOL/L (3.5-5.1); SODIUM 141 MMOL/L (136-145)
[2017-10-13 08:38] LABS: ALANINE AMINOTRANSFERASE 44 U/L (12-78); ALBUMIN 2.9 G/DL (3.4-5.0); ALBUMIN/GLOBULIN RATIO 0.8 (1.0-2.7); ALKALINE PHOSPHATASE 81 U/L (46-116); ASPARTATE AMINO TRANSFERASE 25 U/L (15-37); BILIRUBIN,TOTAL 0.2 MG/DL (0.2-1.0); CKMB < 0.5 NG/ML (0.0-3.6); CREATINE KINASE 16 U/L (26-308)
[2017-10-13 09:01] LABS: APPEARANCE,URINE CLEAR; BILIRUBIN, URINE NEGATIVE (NEGATIVE); COLOR,URINE PALE YELLOW; GLUCOSE, URINE (UA) NEGATIVE (NEGATIVE); KETONES,URINE NEGATIVE (NEGATIVE); LEUKOCYTE ESTERASE ,URINE NEGATIVE (NEGATIVE); NITRITE,URINE NEGATIVE (NEGATIVE); PH,URINE 6 (4.5-8.0); PROTEIN,URINE 2+ (NEGATIVE); UROBILINOGEN,URINE NORMAL MG/DL (0.0-1.0)
[2017-10-13] MEDS ORDERED: Levalbuterol Inh UD 1.25mg/0.5ml HHN ONE (09:30)
[2017-10-13] MEDS ORDERED: FUROSEMIDE20 M1 ORAL (10:01)
[2017-10-13] MEDS ORDERED: BREO ELLIPTA 21 EACH IH (10:01)
[2017-10-13] MEDS ORDERED: XOPENEX1.25 MG/3 HHN (10:01)
[2017-10-13] MEDS ORDERED: MONTELUKAST SOD10 MG ORAL (10:01)
[2017-10-13] MEDS ORDERED: TRAMADOL HCL50 MG ORAL (10:01)
[2017-10-13] MEDS ORDERED: MELATONIN1 M2 PO (10:01)
[2017-10-13] MEDS ORDERED: LIDOCAINE700 M1 TP (10:01)
[2017-10-13] MEDS ORDERED: NOVOLOG100 UNITS1 (10:01)
[2017-10-13] MEDS ORDERED: ELIQUIS5 MG PO (10:01)
[2017-10-13] MEDS ORDERED: DALIRESP500 MCG PO (10:01)
[2017-10-13] MEDS ORDERED: INCRUSE ELLI62.5 MCG IH (10:01)
[2017-10-13] MEDS ORDERED: ACETAMINOPHEN325 M1 ORAL (10:01)
--- NOTE | 2017-10-13 11:02 | Diagnostic Imaging Report ---
Indication: Shortness of breath Technique: One view of the chest Comparison: 07/24/2017 Findings: The heart is enlarged. There is again demonstrated infiltrate at the right lung base. There is scalloping the right hemidiaphragm. There is mild generalized interstitial congestion. Previously demonstrated nasogastric tube is no longer present. Impression: Cardiomegaly with mild interstitial congestion Right basilar consolidation
[2017-10-13] MEDS ORDERED: HYDROcodone/Acetamin 10/325 tab ORAL PRN (12:30)
[2017-10-13] MEDS ORDERED: LORazepam 1mg tab ONE (13:06)
[2017-10-13] MEDS ORDERED: Lidocaine 1% Plain 30 ml INJ ONE (13:07)
--- NOTE | 2017-10-13 13:48 | Emergency Room Report ---
History of Present Illness General Chief Complaint: Dyspnea/Respdistress Source: Medical Record Present Illness Allergies: Coded Allergies: AMOXICILLIN (Verified Allergy, Mild, RASH HIVES, 09/29/13) CODEINE (Verified Allergy, Mild, RASH/HIVES, 09/29/13) ERYTHROMYCIN BASE (Unverified Allergy, Unknown, 10/13/17) IODINE (Verified Allergy, Unknown, 09/29/13) PENICILLINS (Verified Allergy, Unknown, RASH HIVES, 09/29/13) Patient History Last Menstrual Period: n/a Nursing Documentation-[facility] Past Medical History: No History, Except For Hx Cardiac Problems: Yes - chf Hx Hypertension: Yes Hx Pacemaker: No Hx Asthma: Yes Hx COPD: Yes Hx Diabetes: Yes - dm2 Hx Cancer: Yes - right mastectomy Hx Gastrointestinal Problems: Yes History Of Psychiatric Problem: Yes - chronic depressive disorder Hx Neurological Problems: No Physical Exam Vital Signs Date Time Temp Pulse Resp B/P (MAP) Pulse Ox O2 Delivery O2 Flow Rate FiO2 10/13/17 05:51 70 22 135/75 100 Non-Rebreather 15.0 10/13/17 06:20 32 10/13/17 06:25 97.9 Procedures Central Line Central Line : Consent: Verbal Central Line Lumen: triple Maximal Sterile Barrier Tech: yes cap, yes mask, yes sterile gown, yes sterile gloves, yes large sterile sheet, yes hand hygiene, yes chlorhexidine prep Central Line Postion: femoral (L) Anesthesia: Lidocaine cc's of anesthesia: 5 Complications: none Central Line Post Position: sutured, good blood return Attempts: One Patient Tolerated: Well Complications: None Medical Decision Making Diagnostic Impression: Primary Impression: COPD exacerbation Additional Impressions: Sepsis Pneumonia Fluid overload ER Course central line was placed as patient has no access, multiple times tried by nursing staff and by me. L sided femoral placed without complication. good blood return. Last Vital Signs Date Time Temp Pulse Resp B/P (MAP) Pulse Ox O2 Delivery O2 Flow Rate FiO2 10/13/17 12:00 113 24 133/67 96 Bi-pap 40 10/13/17 10:00 10/13/17 06:25 97.9 Disposition: ADMITTED INPATIENT Condition: Critical Referrals: CRISTIANA BROCK (PCP) Bunny Hartman M.D. Oct 13, 2017 13:48
[2017-10-13] MEDS ORDERED: D5W 55 ML IV ONE (14:26)
[2017-10-13] MEDS ORDERED: Cefepime 1gm vial ONE (14:26)
[2017-10-13] MEDS: Solu-MEDROL 125mg Inj IVP SCH ×2 (14:27→21:42)
[2017-10-13] MEDS ORDERED: LORazepam 1mg tab ORAL ONE (14:45)
[2017-10-13] MEDS: Cefepime HCl 1 GM in D5W 55 ML IVPB SCH (15:13)
[2017-10-13] MEDS: NovoLOG Insulin Flexpen SUBQ SCH ×2 (17:18→21:41)
[2017-10-13] MEDS ORDERED: Docusate 100mg cap ORAL SCH (18:00)
[2017-10-13] MEDS: Amiodarone 200mg tab ORAL SCH (18:37)
[2017-10-13] MEDS: metFORMIN 500mg tab ORAL SCH (18:37)
[2017-10-13] MEDS: Eliquis 2.5mg tablet ORAL SCH ×2 (18:37→18:44)
[2017-10-13] MEDS: Docusate 100mg cap ORAL SCH (18:44)
[2017-10-13] MEDS: Atorvastatin 20mg tab ORAL SCH (21:42)
[2017-10-13] MEDS: Vancomycin 1gm in Dextrose 275ml IVPB SCH (21:43)
[2017-10-13] MEDS: Flonase Nasal Inhaler 16gm NASAL SCH (21:54)
[2017-10-13] MEDS ORDERED: traMADol 50mg tab ORAL PRN (23:15)
[2017-10-14 00:21] VITALS: BP 100/60
[2017-10-14] MEDS: Cefepime HCl 1 GM in D5W 55 ML IVPB SCH ×2 (02:11→14:11)
[2017-10-14] MEDS: traMADol 50mg tab ORAL PRN ×2 (02:19→15:30)
[2017-10-14] MEDS: Levalbuterol Inh UD 1.25mg/0.5ml HHN SCH ×5 (02:43→19:00)
[2017-10-14 04:00] VITALS: BP 101/58
[2017-10-14] MEDS ORDERED: Vancomycin 1gm inj IVPB ONE (05:31)
[2017-10-14] MEDS: Solu-MEDROL 125mg Inj IVP SCH ×2 (05:51→17:24)
[2017-10-14] MEDS: Vancomycin 1gm in Dextrose 275ml IVPB SCH ×3 (05:57→23:06)
[2017-10-14] MEDS: NovoLOG Insulin Flexpen SUBQ SCH ×4 (06:10→21:09)
[2017-10-14 08:00] VITALS: BP 128/89
[2017-10-14] MEDS: Anastrazole 1mg tab ORAL SCH (08:39)
[2017-10-14] MEDS: Aspirin Baby 81mg ORAL SCH (08:39)
[2017-10-14] MEDS: Docusate 100mg cap ORAL SCH ×2 (08:44→17:26)
[2017-10-14] MEDS: metFORMIN 500mg tab ORAL SCH ×2 (08:44→17:26)
[2017-10-14] MEDS: Amiodarone 200mg tab ORAL SCH ×2 (08:44→17:26)
[2017-10-14] MEDS: dilTIAZem HCl CD 120mg cap ORAL SCH (08:44)
[2017-10-14] MEDS: Sertraline 50mg tab ORAL SCH (08:45)
[2017-10-14] MEDS: Calcium Carbonate 500mg w/Vit D 200iu tab ORAL SCH (08:45)
[2017-10-14] MEDS: Montelukast 10mg tablet ORAL SCH (08:45)
--- NOTE | 2017-10-14 08:58 | General Progress Note ---
Assessment/Plan Problem List: (1) ams (2) Diabetes mellitus ICD Codes: E11.9 - Diabetes mellitus SNOMED: 84422097 (3) Hypertension, malignant ICD Codes: I10 - Hypertension, malignant SNOMED: 30689982 (4) CHF (5) Pneumonia ICD Codes: J18.9 - Pneumonia, unspecified organism SNOMED: 151993764 (6) Sepsis ICD Codes: A41.9 - Sepsis, unspecified organism SNOMED: 02758843 (7) COPD exacerbation ICD Codes: J44.1 - COPD exacerbation SNOMED: 424696208 Status: stable, progressing Assessment/Plan iv abx wean steroids resp rx diuresis bp rx monitor bs Subjective ROS Limited/Unobtainable: No Constitutional: Reports: malaise, weakness HEENT: Reports: no symptoms Cardiovascular: Reports: no symptoms Respiratory: Reports: cough, shortness of breath Gastrointestinal/Abdominal: Reports: no symptoms Genitourinary: Reports: no symptoms Neurologic/Psychiatric: Reports: no symptoms Endocrine: Reports: no symptoms Hematologic/Lymphatic: Reports: no symptoms Allergies: Coded Allergies: AMOXICILLIN (Verified Allergy, Mild, RASH HIVES, 09/29/13) ERYTHROMYCIN BASE (Unverified Allergy, Unknown, 10/13/17) IODINE (Verified Allergy, Unknown, 09/29/13) PENICILLINS (Verified Allergy, Unknown, RASH HIVES, 09/29/13) All Systems: reviewed and negative except above Subjective no events. w/o complaints. less sob. decreased wheezing and congestion Objective Last 24 Hour Vital Signs Date Time Temp Pulse Resp B/P (MAP) Pulse Ox O2 Delivery O2 Flow Rate FiO2 10/14/17 08:44 105 128/89 10/14/17 08:44 128/89 10/14/17 08:00 94 10/14/17 08:00 96.6 103 24 128/89 94 10/14/17 07:26 109 20 95 Bi-pap 40 10/14/17 07:05 114 21 91 Nasal 40 10/14/17 07:03 105 21 93 Bi-pap 40 10/14/17 04:47 108 21 94 Nasal 40 10/14/17 04:00 99.2 104 21 101/58 94 10/14/17 04:00 105 10/14/17 02:50 105 20 100 Bi-pap 40 10/14/17 02:43 101 20 99 Nasal Cannula 3.0 10/14/17 02:41 102 20 98 Nasal 40 10/14/17 01:18 98 20 96 Nasal 40 10/14/17 00:21 99.5 110 20 100/60 93 10/14/17 00:00 106 10/13/17 23:04 99 20 99 Nasal Cannula 3.0 32 10/13/17 22:58 95 20 98 Nasal Cannula 3.0 10/13/17 20:00 97.7 61 18 118/58 92 10/13/17 19:45 97.9 114 20 122/69 99 Nasal Cannula 3.0 32 10/13/17 19:20 104 22 98 Nasal Cannula 3.0 32 10/13/17 19:11 104 20 99 Nasal Cannula 3.0 32 10/13/17 18:30 122/69 10/13/17 18:00 114 22 127/73 96 Nasal Cannula 3.0 10/13/17 16:54 117 20 96 Nasal 40 10/13/17 16:02 3.0 40 10/13/17 16:00 92 22 117/66 96 Bi-pap 40 10/13/17 16:00 97.9 120 16 123/80 96 3.0 40 10/13/17 15:38 107 16 96 Nasal 40 10/13/17 15:29 120 32 123/80 94 Nasal Cannula 3.0 10/13/17 15:10 106 22 99 Nasal Cannula 3.0 32 10/13/17 15:05 100 20 98 Nasal Cannula 3.0 32 10/13/17 14:00 124 22 150/84 96 Nasal Cannula 3.0 10/13/17 12:00 113 24 133/67 96 Nasal Cannula 3.0 10/13/17 10:00 109 20 148/69 96 Bi-pap 40 10/13/17 09:36 107 16 95 Nasal 40 10/13/17 09:30 40 Intake and Output 10/13/17 10/14/17 19:00 07:00 Intake Total 1575 ml 513.708 ml Output Total 4600 ml 400 ml Balance -3025 ml 113.708 ml Intake Oral 120 ml IV Total 1455 ml 513.708 ml Output Urine Total 4600 ml 400 ml # Voids 1 # Bowel Movements 1 Laboratory Tests 10/13/17 09:00: Arterial Blood pH 7.290L, Arterial Blood Partial Pressure CO2 80.7*H, Arterial Blood Partial Pressure O2 61.7L, Arterial Blood HCO3 38.4H, Arterial Blood Oxygen Saturation 87.6L, Arterial Blood Base Excess 9.8, Rico Test Positive Height (Feet): 5 Height (Inches): 9.00 Weight (Pounds): 214 General Appearance: WD/WN, no apparent distress, alert Neck: non-tender, normal alignment, supple Cardiovascular: normal rate, regular rhythm Respiratory/Chest: expiratory wheezing Abdomen: normal bowel sounds, non tender, soft, no organomegaly Edema: trace edema Neurologic: v belt coverer II-XII grossly normal, alert, oriented x 3, responsive CRISTIANA BROCK Oct 14, 2017 08:58
[2017-10-14] MEDS ORDERED: Meloxicam 15 MG TAB ORAL SCH (09:00)
[2017-10-14] MEDS: Breo Ellipta 200/25mcg-14 dose INH SCH (10:06)
[2017-10-14 12:00] VITALS: BP 105/62
[2017-10-14 16:00] VITALS: BP 106/66
[2017-10-14] MEDS: Eliquis 2.5mg tablet ORAL SCH (17:26)
--- NOTE | 2017-10-14 18:30 | Consultation ---
DATE OF CONSULTATION: 10/14/2017 INFECTIOUS DISEASES CONSULTATION CONSULTING PHYSICIAN: Lo Delcid M.D. REFERRING PHYSICIAN: Froilan Caruso M.D. REASON FOR CONSULTATION: Pneumonia. HISTORY OF PRESENTING ILLNESS: This is a 57-year-old lady with history of diabetes, hypertension, breast cancer, uterine cancer, and chronic obstructive pulmonary disease who came in with shortness of breath along with cough, fever, and chills. She was found to have pneumonia and an Infectious Diseases consultation has been obtained for antibiotics. PAST MEDICAL HISTORY: 1. History of diabetes. 2. History of hypertension. 3. History of congestive heart failure. 4. COPD. 5. History of asthma. 6. History of breast cancer, status post right-sided mastectomy and chemotherapy. 7. History of uterine cancer. 8. Depression. MEDICATIONS: As an inpatient, the patient is on Solu-Medrol, Arimidex, aspirin, calcium carbonate, diltiazem, fluticasone, furosemide, Singulair, Protonix, Zoloft, Ultram, Restoril, Lipitor, IV vancomycin, amiodarone, clonidine, docusate, metformin, Eliquis, insulin, Xopenex, cefepime, clonidine, and Tylenol. ALLERGIES: 1. Penicillin, which produces hives. 2. Amoxicillin. 3. Erythromycin. 4. Iodine. SOCIAL HISTORY: She does not smoke or drink. She used to smoke cocaine but she does not use drugs anymore. FAMILY HISTORY: Positive for breast cancer in a sister. REVIEW OF SYSTEMS: RESPIRATORY: She had fever and chills. She has cough with productive sputum. She has shortness of breath. CARDIAC: No chest pain. No palpitations. No dizziness. No syncope. GASTROINTESTINAL: No nausea. No vomiting. No abdominal pain or diarrhea. PHYSICAL EXAMINATION: VITAL SIGNS: Temperature of 96.6, T-max of 99.5 degrees, pulse of 111, respiratory rate 20, blood pressure 128/89, and O2 saturation of 94%. HEENT: Pupils equally reactive to light and accommodation. Mouth appears clean without thrush. NECK: Supple. No adenopathy. No JVD. CARDIOVASCULAR: Regular rate and rhythm. No murmurs. LUNGS: Wheezing noted bilaterally. ABDOMEN: Soft and nontender. No organomegaly. EXTREMITIES: No cyanosis, no clubbing, and no edema. LABORATORY AND DIAGNOSTIC DATA: White count of 18, hemoglobin 8.5, hematocrit 28.9, MCV 93, and platelet count of 255 with neutrophils of 84%. Sodium 141, potassium 3.7, chloride 99, bicarbonate 14, BUN 20, creatinine 0.8, and glucose 176. Calcium 7.9. Total bilirubin 0.2. AST 25, ALT 44, and alkaline phosphatase 81. CK of 16 and CK-MB less than 0.5. Troponin 0.006. Beta-natriuretic peptide 3426. Total protein 6.7. Albumin 2.9. UA showing 0 to 2 white cells. Nasal swab was negative for influenza A and B. Chest x-ray showed cardiomegaly with mild interstitial congestion, right base consolidation noted. ASSESSMENT: 1. This is a 57-year-old lady with history of breast cancer, uterine cancer, chronic obstructive pulmonary disease, and diabetes who comes in and is found to have community-acquired versus atypical pneumonia on the right side. 2. Breast cancer. 3. Uterine cancer. 4. Diabetes. 5. Hypertension. PLAN: 1. Continue vancomycin and cefepime. 2. We will order sputum for Gram stain and culture. 3. We will order for serum Legionella antibody. 4. We will order for mycoplasma serology. 5. We will start the patient on doxycycline for atypical coverage. 6. We will follow up cultures and adjust antibiotics accordingly. I would like to thank, Dr. Caruso for this consultation. Lo Delcid M.D. DR: VALERIE JOB#: [id number] CC: Froilan Caruso M.D.; Fax#: [phone]
[2017-10-14 20:00] VITALS: BP 101/66
--- NOTE | 2017-10-14 20:00 | History and Physical Report ---
DATE OF ADMISSION: 10/13/2017 CHIEF COMPLAINT: Shortness of breath, pneumonia, and COPD exacerbation. HISTORY OF PRESENT ILLNESS: The patient is a pleasant female, who is admitted with complaints of shortness of breath, cough, congestion, and altered mental status. According to the patient, she was well until several days prior to admission when she had worsening cough and congestion. On evaluation at the emergency room, she had hypercapnic respiratory failure. She had evidence of pneumonia as well as CHF. She has been started on BiPAP, IV antibiotics, and steroids. She is now admitted for further evaluation and care. PAST MEDICAL HISTORY: As above. Includes a history of breast cancer, hypertension, diabetes, and history of paroxysmal atrial fibrillation. PAST SURGICAL HISTORY: Includes mastectomy. CURRENT MEDICATIONS: Reconciled and reviewed. ALLERGIES: Include amoxicillin, erythromycin, iodine, and penicillin. SOCIAL HISTORY: The patient has a long history of smoking, but has now quit. FAMILY HISTORY: Noncontributory. REVIEW OF SYSTEMS: GENERAL: Positive fevers and chills, but no night sweats. HEENT: No headaches or visual changes. CARDIOPULMONARY: Positive shortness of breath, cough, and congestion. GASTROINTESTINAL: No nausea or vomiting. GENITOURINARY: No urgency or frequency. MUSCULOSKELETAL: Positive leg pain. NEUROLOGIC: No evidence of seizures. PHYSICAL EXAMINATION: VITAL SIGNS: Temperature is 96.6 degrees, pulse 103, respirations 24, and blood pressure 128/89. GENERAL: The patient is a well-developed female, in no apparent distress. HEART: Regular rate and rhythm. LUNGS: Significant for bilateral rhonchi and wheezes. ABDOMEN: Soft, nontender, and nondistended. EXTREMITIES: Without clubbing or cyanosis. LABORATORY AND DIAGNOSTIC DATA: Showed sodium 141, potassium 3.7, and creatinine 0.8. White count of 18,000. ABG showed a pH of 7.29, pCO2 of 80, pO2 of 61, bicarbonate 38, and O2 saturation of 87%. ASSESSMENT: This is a pleasant female, admitted with complaints of chronic obstructive pulmonary disease exacerbation, hypercapnic respiratory failure, congestive heart failure, and pneumonia. She has a history of diabetes, prior history of breast cancer, and paroxysmal atrial fibrillation. PLAN: IV antibiotics. Intravenous steroids. Respiratory treatments [id number]. Oral diuretic therapy. Follow up pending cultures. Monitor chest x-ray. Cardiology, Pulmonary, and Infectious Diseases consultations will be obtained. Floyd Downey M.D. DR: Piedad JOB#: [id number] CC:
--- NOTE | 2017-10-14 20:45 | Consultation ---
DATE OF CONSULTATION: 10/14/2016 PULMONARY CONSULTATION CONSULTING PHYSICIAN: Froilan Caruso M.D. REASON FOR CONSULTATION: Chronic obstructive pulmonary disease with acute exacerbation. HISTORY OF PRESENT ILLNESS: The patient is a 57-year-old unfortunate female, who re-presents frequently to this and outside hospitals for similar symptoms with increasing shortness of breath. The patient with recent discharge from [facility], the patient now with increasing shortness of breath over the past two days. The patient has severe end-stage lung disease. The patient does use a Trilogy at the [facility] due to chronic respiratory failure. The patient presents with increasing shortness of breath, respiratory distress, productive cough, and sputum production. The patient is chronically on oxygen as mentioned. The patient denies any ill contacts. Denies fevers or chills. The patient was admitted for evaluation and intervention. Blood gases did reveal significant acute on chronic CO2 retention. The patient was re-admitted for further care and management, placed on IV Solu-Medrol, nebulized therapy, and antibiotics. The patient's care was discussed and reviewed. The patient was placed on BiPAP for ongoing respiratory distress. Currently, the patient is on BiPAP and vital signs appear to be somewhat improved. PAST MEDICAL HISTORY: Notable for the above COPD, CHF, chronic CO2 retention, chronic respiratory failure, history of right mastectomy, breast cancer, diabetes, significant anxiety and depression, chronic nicotine addiction, history of fall and fracture, and history of sleep apnea. MEDICATIONS: Reviewed. ALLERGIES: Reviewed. PHYSICAL EXAMINATION: GENERAL: The patient is an ill-appearing female, currently on BiPAP. VITAL SIGNS: Blood pressure 128/69, pulse 105, respirations 24, and saturation 94% on BiPAP, 40% FiO2. HEENT: Fairly negative. NECK: Supple. The patient is cushingoid appearing. Neck is short. No jugular venous distention. LUNGS: Coarse breath sounds and wheezes. CARDIAC: Slightly tachycardic without murmurs, rubs, or gallops. ABDOMEN: Soft, nontender, obese. EXTREMITIES: No cyanosis or clubbing. There is mild edema. NEUROLOGICAL: Grossly nonfocal, on BiPAP, awake. LABORATORY AND DIAGNOSTIC DATA: Reviewed. ABG, 7.29/80/62/38/87% saturation. Electrolytes notable for bicarbonate of 30, BUN 20, and creatinine 0.8. BNP 3426. Lactic acid 0.5. White count 18, hemoglobin 8.5, hematocrit 28.9, and platelets of 255. The patient's chest x-ray with cardiomegaly and mild pulmonary edema. IMPRESSION: 1. Chronic obstructive pulmonary disease with acute exacerbation. 2. Acute on chronic respiratory failure. 3. Acute on chronic respiratory acidosis. 4. Known history of sleep apnea, noncompliance. 5. Significant bronchospasm. 6. End-stage lung disease. 7. Depression and anxiety. 8. Mastectomy. 9. History of congestive heart failure with possible mild fluid overload. RECOMMENDATIONS: Supportive care. BiPAP management for now. Repeat ABG this morning. Diuresis. Empiric antibiotics. Empiric IV steroids. Respiratory care. Resume fpc medications. Avoid excessive sedation. The patient had required intubation in the past and at present with low threshold to be intubated if need be pending repeat arterial blood gases this morning. The patient is guarded at present and we will follow clinically for changes. Froilan Caruso M.D. DR: JOSE JOB#: [id number] CC:
[2017-10-14] MEDS: Flonase Nasal Inhaler 16gm NASAL SCH (21:05)
[2017-10-14] MEDS: Atorvastatin 20mg tab ORAL SCH (21:05)
[2017-10-14] MEDS ORDERED: D5W 275ml ONE (22:29)
[2017-10-15] MEDS: Levalbuterol Inh UD 1.25mg/0.5ml HHN SCH ×7 (00:14→23:14)
[2017-10-15 00:26] VITALS: BP 100/62
[2017-10-15] MEDS: traMADol 50mg tab ORAL PRN ×2 (00:54→21:07)
[2017-10-15] MEDS: Cefepime HCl 1 GM in D5W 55 ML IVPB SCH ×2 (02:18→14:57)
[2017-10-15 04:00] VITALS: BP 121/76
[2017-10-15] MEDS: Solu-MEDROL 125mg Inj IVP SCH ×2 (06:28→17:41)
[2017-10-15] MEDS: NovoLOG Insulin Flexpen SUBQ SCH ×4 (06:50→21:13)
--- NOTE | 2017-10-15 07:30 | Pulmonology Progress Note ---
Assessment/Plan Assessment/Plan IMPRESSION: 1. Chronic obstructive pulmonary disease with acute exacerbation. 2. Acute on chronic respiratory failure. 3. Acute on chronic respiratory acidosis. 4. Known history of sleep apnea, noncompliance. 5. Significant bronchospasm. 6. End-stage lung disease. 7. Depression and anxiety. 8. Mastectomy. 9. History of congestive heart failure with possible mild fluid overload. PLAN continue as is ID noted IV steroids BIPAP QHS and PRN oxygen therapy maintain meds monitor closely labile and fragile impression, plan, and exam edited and reviewed in detail care discussed with RN Subjective Allergies: Coded Allergies: AMOXICILLIN (Verified Allergy, Mild, RASH HIVES, 09/29/13) ERYTHROMYCIN BASE (Unverified Allergy, Unknown, 10/13/17) IODINE (Verified Allergy, Unknown, 09/29/13) PENICILLINS (Verified Allergy, Unknown, RASH HIVES, 09/29/13) Subjective on NC improved acid base better Objective Last 24 Hour Vital Signs Date Time Temp Pulse Resp B/P (MAP) Pulse Ox O2 Delivery O2 Flow Rate FiO2 10/15/17 07:14 109 20 99 Nasal Cannula 3.0 32 10/15/17 06:55 109 20 100 Nasal Cannula 3.0 32 10/15/17 06:55 100 Nasal Cannula 3.0 32 10/15/17 06:55 Nasal Cannula 3.0 32 10/15/17 04:00 105 10/15/17 04:00 98.1 94 24 121/76 98 Nasal Cannula 3.0 10/15/17 03:18 102 20 99 Nasal Cannula 3.0 32 10/15/17 03:09 101 18 96 Nasal Cannula 2.0 28 10/15/17 00:29 98 20 99 Nasal Cannula 3.0 32 10/15/17 00:26 97.2 100 24 100/62 99 Nasal Cannula 3.0 10/15/17 00:15 97 18 96 Nasal Cannula 2.0 28 10/15/17 00:00 95 10/14/17 20:00 96.6 90 24 101/66 91 10/14/17 20:00 104 10/14/17 19:52 95 20 97 Nasal Cannula 4.0 36 10/14/17 19:28 Nasal Cannula 4.0 36 10/14/17 19:28 97 Nasal Cannula 4.0 36 10/14/17 17:24 110/67 10/14/17 16:18 98.4 10/14/17 16:00 110 10/14/17 16:00 98.2 112 24 106/66 94 10/14/17 15:31 97 20 97 Nasal Cannula 4.0 36 10/14/17 15:27 96 20 95 Nasal Cannula 4.0 36 10/14/17 13:23 94 Nasal Cannula 4.0 36 10/14/17 13:23 Nasal Cannula 4.0 36 10/14/17 12:00 97 10/14/17 12:00 97.7 103 24 105/62 94 10/14/17 11:15 113 20 100 Nasal Cannula 4.0 36 10/14/17 11:04 111 20 94 Nasal Cannula 4.0 36 10/14/17 08:44 105 128/89 10/14/17 08:44 128/89 10/14/17 08:00 94 10/14/17 08:00 96.6 103 24 128/89 94 Intake and Output 10/14/17 10/15/17 19:00 07:00 Intake Total 751.292 ml 680.000 ml Output Total 1100 ml 450 ml Balance -348.708 ml 230.000 ml Intake Oral 660 ml 350 ml IV Total 91.292 ml 330.000 ml Output Urine Total 1100 ml 450 ml # Bowel Movements 1 Objective GENERAL: The patient is an ill-appearing female, currently on nasal cannula HEENT: Fairly negative. NECK: Supple. The patient is cushingoid appearing. Neck is short. No jugular venous distention. LUNGS: Coarse breath sounds and wheezes. with some improvement CARDIAC: RRR without murmurs, rubs, or gallops. ABDOMEN: Soft, nontender, obese. EXTREMITIES: No cyanosis or clubbing. There is mild edema. NEUROLOGICAL: Grossly nonfocal, on BiPAP, awake. Microbiology Date/Time Source Procedure Growth Status 10/13/17 08:00 Blood Blood Culture - Preliminary NO GROWTH AFTER 24 HOURS Resulted 10/13/17 07:50 Blood Blood Culture - Preliminary NO GROWTH AFTER 24 HOURS Resulted 10/13/17 08:45 Nasal Nares Influenza Types A,B Antigen (MARITZA) - Final Complete Laboratory Tests 10/14/17 10:10: Arterial Blood pH 7.376, Arterial Blood Partial Pressure CO2 67.3*H, Arterial Blood Partial Pressure O2 72.4L, Arterial Blood HCO3 38.6H, Arterial Blood Oxygen Saturation 93.6, Arterial Blood Base Excess 11.4, Rico Test Positive 10/14/17 21:00: Random Vancomycin Level 9.0, Legionella pneumophila Group 1 Ab [Pending], Legionella pneumophilia IgM Group 1 [Pending], Mycoplasma pneumoniae IgG Antibody [Pending], Mycoplasma pneumoniae IgM Ab Titer [Pending] Current Medications Medications (Trade) Dose Ordered Sig/Sera Route PRN Reason Start Time Stop Time Status Last Admin Dose Admin Acetaminophen (Tylenol) 650 mg Q4H PRN ORAL Pain Scale (1-6) 10/13/17 12:30 11/12/17 12:29 Amiodarone HCl (Cordarone) 200 mg BID ORAL 10/13/17 18:00 11/12/17 17:59 10/14/17 17:26 Anastrozole (Arimidex) 1 mg DAILY ORAL 10/14/17 09:00 11/13/17 08:59 10/14/17 08:39 Apixaban (Eliquis) 5 mg BID ORAL 10/13/17 18:00 11/12/17 17:59 10/14/17 17:26 Aspirin (ASA) 81 mg DAILY ORAL 10/14/17 09:00 11/13/17 08:59 10/14/17 08:39 Atorvastatin Calcium (Lipitor) 20 mg BEDTIME ORAL 10/13/17 21:00 11/12/17 20:59 10/14/17 21:05 Calcium Carbonate (OsCal D) 1 tab DAILY ORAL 10/14/17 09:00 11/13/17 08:59 10/14/17 08:45 Cefepime HCl 1 gm/ Dextrose 55 ml @ 110 mls/hr Q12HR@0200,1400 IVPB 10/13/17 15:00 10/20/17 14:59 10/15/17 02:18 Clonidine HCl (Catapres) 0.1 mg BID ORAL 10/13/17 18:00 11/12/17 17:59 10/14/17 17:24 Clonidine HCl (Catapres) 0.1 mg Q4H PRN ORAL SBP > 160 10/13/17 13:00 11/12/17 12:59 Dextrose (Dextrose 50%) STAT PRN IV Hypoglycemia 10/13/17 12:45 11/12/17 12:44 Diltiazem HCl (Cardizem CD) 120 mg DAILY ORAL 10/14/17 09:00 11/13/17 08:59 10/14/17 08:44 Docusate Sodium (Colace) 100 mg BID ORAL 10/13/17 18:00 11/12/17 17:59 10/14/17 17:26 Doxycycline Monohydrate (Vibramycin) 100 mg EVERY 12 HOURS ORAL 10/14/17 12:00 10/21/17 11:59 10/14/17 21:05 Fluticasone Propionate (Flonase) 1 spray QHS NASAL 10/13/17 21:00 11/12/17 20:59 10/14/17 21:05 Fluticasone/ Vilanterol (Breo Ellipta 200/25) 1 puffs DAILY INH 10/14/17 09:00 11/13/17 08:59 10/14/17 10:06 Furosemide (Lasix) 20 mg DAILY ORAL 10/14/17 09:00 11/13/17 08:59 10/14/17 08:45 Insulin Aspart (NovoLOG) BEFORE MEALS AND HS SUBQ 10/13/17 16:30 11/12/17 16:29 10/15/17 06:50 Levalbuterol HCl (Xopenex) 0.625 mg Q4HRT HHN 10/13/17 15:00 10/18/17 14:59 10/15/17 06:54 Metformin HCl (Glucophage) 500 mg TWICE A DAY ORAL 10/13/17 18:00 11/12/17 17:59 10/14/17 17:26 Methylprednisolone Sodium Succinate (Solu-MEDROL) 60 mg Q12HR@0600,1800 IVP 10/14/17 18:00 11/13/17 17:59 10/15/17 06:28 Montelukast Sodium (Singulair) 10 mg DAILY ORAL 10/14/17 09:00 11/13/17 08:59 10/14/17 08:45 Pantoprazole (Protonix) 40 mg DAILY ORAL 10/14/17 09:00 11/13/17 08:59 10/14/17 08:45 Sertraline HCl (Zoloft) 100 mg DAILY ORAL 10/14/17 09:00 11/13/17 08:59 10/14/17 08:45 Temazepam (Restoril) 30 mg HSPRN PRN ORAL Insomnia 10/14/17 00:00 10/21/17 00:00 10/15/17 00:54 Tramadol HCl (Ultram) 50 mg Q8H PRN ORAL Severe Pain (Pain Scale 7-10) 10/14/17 02:00 10/21/17 01:59 10/15/17 00:54 Vancomycin HCl (Vanco rx to dose) 1 ea DAILY PRN MISC Per rx protocol 10/13/17 12:45 11/12/17 12:44 Vancomycin HCl/ Dextrose 250 ml @ 166.667 mls/hr Q12H IVPB 10/15/17 06:00 10/20/17 05:59 OLIVER RAYMOND Oct 15, 2017 07:30
--- NOTE | 2017-10-15 07:44 | General Progress Note ---
Assessment/Plan Problem List: (1) ams (2) Diabetes mellitus ICD Codes: E11.9 - Diabetes mellitus SNOMED: 55498052 (3) Hypertension, malignant ICD Codes: I10 - Hypertension, malignant SNOMED: 38741430 (4) CHF (5) Pneumonia ICD Codes: J18.9 - Pneumonia, unspecified organism SNOMED: 352699203 (6) Sepsis ICD Codes: A41.9 - Sepsis, unspecified organism SNOMED: 31527183 (7) COPD exacerbation ICD Codes: J44.1 - COPD exacerbation SNOMED: 154906311 Status: stable, progressing Assessment/Plan iv abx wean steroids resp rx diuresis bp rx monitor bs xray foot snf vs aru ? Subjective ROS Limited/Unobtainable: No Constitutional: Reports: malaise, weakness HEENT: Reports: no symptoms Cardiovascular: Reports: no symptoms Respiratory: Reports: cough, shortness of breath, wheezing Gastrointestinal/Abdominal: Reports: no symptoms Genitourinary: Reports: no symptoms Neurologic/Psychiatric: Reports: no symptoms Endocrine: Reports: no symptoms Hematologic/Lymphatic: Reports: no symptoms Allergies: Coded Allergies: AMOXICILLIN (Verified Allergy, Mild, RASH HIVES, 09/29/13) ERYTHROMYCIN BASE (Unverified Allergy, Unknown, 10/13/17) IODINE (Verified Allergy, Unknown, 09/29/13) PENICILLINS (Verified Allergy, Unknown, RASH HIVES, 09/29/13) All Systems: reviewed and negative except above Subjective no events. w/o complaints. much less wheezing today. copious sputum. Objective Last 24 Hour Vital Signs Date Time Temp Pulse Resp B/P (MAP) Pulse Ox O2 Delivery O2 Flow Rate FiO2 10/15/17 07:14 109 20 99 Nasal Cannula 3.0 32 10/15/17 06:55 109 20 100 Nasal Cannula 3.0 32 10/15/17 06:55 100 Nasal Cannula 3.0 32 10/15/17 06:55 Nasal Cannula 3.0 32 10/15/17 04:00 105 10/15/17 04:00 98.1 94 24 121/76 98 Nasal Cannula 3.0 10/15/17 03:18 102 20 99 Nasal Cannula 3.0 32 10/15/17 03:09 101 18 96 Nasal Cannula 2.0 28 10/15/17 00:29 98 20 99 Nasal Cannula 3.0 32 10/15/17 00:26 97.2 100 24 100/62 99 Nasal Cannula 3.0 10/15/17 00:15 97 18 96 Nasal Cannula 2.0 28 10/15/17 00:00 95 10/14/17 20:00 96.6 90 24 101/66 91 10/14/17 20:00 104 10/14/17 19:52 95 20 97 Nasal Cannula 4.0 36 10/14/17 19:28 Nasal Cannula 4.0 36 10/14/17 19:28 97 Nasal Cannula 4.0 36 10/14/17 17:24 110/67 10/14/17 16:18 98.4 10/14/17 16:00 110 10/14/17 16:00 98.2 112 24 106/66 94 10/14/17 15:31 97 20 97 Nasal Cannula 4.0 36 10/14/17 15:27 96 20 95 Nasal Cannula 4.0 36 10/14/17 13:23 94 Nasal Cannula 4.0 36 10/14/17 13:23 Nasal Cannula 4.0 36 10/14/17 12:00 97 10/14/17 12:00 97.7 103 24 105/62 94 10/14/17 11:15 113 20 100 Nasal Cannula 4.0 36 10/14/17 11:04 111 20 94 Nasal Cannula 4.0 36 10/14/17 08:44 105 128/89 10/14/17 08:44 128/89 10/14/17 08:00 94 10/14/17 08:00 96.6 103 24 128/89 94 Intake and Output 10/14/17 10/15/17 19:00 07:00 Intake Total 751.292 ml 680.000 ml Output Total 1100 ml 450 ml Balance -348.708 ml 230.000 ml Intake Oral 660 ml 350 ml IV Total 91.292 ml 330.000 ml Output Urine Total 1100 ml 450 ml # Bowel Movements 1 Laboratory Tests 10/14/17 10:10: Arterial Blood pH 7.376, Arterial Blood Partial Pressure CO2 67.3*H, Arterial Blood Partial Pressure O2 72.4L, Arterial Blood HCO3 38.6H, Arterial Blood Oxygen Saturation 93.6, Arterial Blood Base Excess 11.4, Rico Test Positive 10/14/17 21:00: Random Vancomycin Level 9.0, Legionella pneumophila Group 1 Ab [Pending], Legionella pneumophilia IgM Group 1 [Pending], Mycoplasma pneumoniae IgG Antibody [Pending], Mycoplasma pneumoniae IgM Ab Titer [Pending] Height (Feet): 5 Height (Inches): 9.00 Weight (Pounds): 214 General Appearance: WD/WN, alert Neck: supple Cardiovascular: normal rate, regular rhythm Respiratory/Chest: chest wall non-tender, lungs clear, normal breath sounds, no respiratory distress, no accessory muscle use Abdomen: normal bowel sounds, non tender, soft, no organomegaly Edema: no edema noted Arm (L), no edema noted Arm (R), no edema noted Leg (L), no edema noted Leg (R), no edema noted Pedal (L), no edema noted Pedal (R), no edema noted 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
[2017-10-15 08:00] VITALS: BP 128/69
[2017-10-15] MEDS: Vancomycin 1250mg/D5W 250ml IVPB SCH ×2 (08:06→17:40)
[2017-10-15] MEDS: Breo Ellipta 200/25mcg-14 dose INH SCH (08:44)
[2017-10-15] MEDS: Sertraline 50mg tab ORAL SCH (09:11)
[2017-10-15] MEDS: Amiodarone 200mg tab ORAL SCH ×2 (09:11→17:41)
[2017-10-15] MEDS: Montelukast 10mg tablet ORAL SCH (09:12)
[2017-10-15] MEDS: Calcium Carbonate 500mg w/Vit D 200iu tab ORAL SCH (09:12)
[2017-10-15] MEDS: dilTIAZem HCl CD 120mg cap ORAL SCH (09:12)
[2017-10-15] MEDS: Anastrazole 1mg tab ORAL SCH (09:13)
[2017-10-15] MEDS: Docusate 100mg cap ORAL SCH ×2 (09:13→17:40)
[2017-10-15] MEDS: Aspirin Baby 81mg ORAL SCH (09:13)
[2017-10-15] MEDS: metFORMIN 500mg tab ORAL SCH ×2 (09:15→17:40)
[2017-10-15] MEDS: Eliquis 2.5mg tablet ORAL SCH ×2 (09:15→17:40)
--- NOTE | 2017-10-15 11:30 | Infectious Diseases Prog Note ---
Assessment/Plan Assessment/Plan antibiotics : vancomycin iv, cefepime, doxycycline A 1. pneumonia 2. COPD 3. DM 4. HTN 5. breast cancer P 1. continue vancomycin iv, cefepime, doxycycline 2. will follow up cultures Subjective Constitutional: Denies: fever, chills Respiratory: Reports: shortness of breath, productive cough Gastrointestinal/Abdominal: Denies: nausea, vomiting, diarrhea Musculoskeletal: Denies: pain Allergies: Coded Allergies: AMOXICILLIN (Verified Allergy, Mild, RASH HIVES, 09/29/13) ERYTHROMYCIN BASE (Unverified Allergy, Unknown, 10/13/17) IODINE (Verified Allergy, Unknown, 09/29/13) PENICILLINS (Verified Allergy, Unknown, RASH HIVES, 09/29/13) Objective Vital Signs Last 24 Hour Vital Signs Date Time Temp Pulse Resp B/P (MAP) Pulse Ox O2 Delivery O2 Flow Rate FiO2 10/15/17 10:51 102 18 99 Nasal Cannula 3.0 32 10/15/17 10:41 101 20 99 Nasal Cannula 3.0 32 10/15/17 09:14 128/69 10/15/17 09:12 110 128/69 10/15/17 08:00 97.5 14 128/69 99 Nasal Cannula 3.0 10/15/17 08:00 113 10/15/17 07:14 109 20 99 Nasal Cannula 3.0 32 10/15/17 06:55 109 20 100 Nasal Cannula 3.0 32 10/15/17 06:55 100 Nasal Cannula 3.0 32 10/15/17 06:55 Nasal Cannula 3.0 32 10/15/17 04:00 105 10/15/17 04:00 98.1 94 24 121/76 98 Nasal Cannula 3.0 10/15/17 03:18 102 20 99 Nasal Cannula 3.0 32 10/15/17 03:09 101 18 96 Nasal Cannula 2.0 28 10/15/17 00:29 98 20 99 Nasal Cannula 3.0 32 10/15/17 00:26 97.2 100 24 100/62 99 Nasal Cannula 3.0 10/15/17 00:15 97 18 96 Nasal Cannula 2.0 28 10/15/17 00:00 95 10/14/17 20:00 96.6 90 24 101/66 91 10/14/17 20:00 104 10/14/17 19:52 95 20 97 Nasal Cannula 4.0 36 10/14/17 19:28 Nasal Cannula 4.0 36 10/14/17 19:28 97 Nasal Cannula 4.0 36 10/14/17 17:24 110/67 10/14/17 16:18 98.4 10/14/17 16:00 110 10/14/17 16:00 98.2 112 24 106/66 94 10/14/17 15:31 97 20 97 Nasal Cannula 4.0 36 10/14/17 15:27 96 20 95 Nasal Cannula 4.0 36 10/14/17 13:23 94 Nasal Cannula 4.0 36 10/14/17 13:23 Nasal Cannula 4.0 36 10/14/17 12:00 97 10/14/17 12:00 97.7 103 24 105/62 94 Height (Feet): 5 Height (Inches): 9.00 Weight (Pounds): 214 Respiratory/Chest: rhonchi - bilaterally Cardiovascular: normal rate, regular rhythm, no gallop/murmur Abdomen: soft, non tender Extremities: no edema Microbiology Date/Time Source Procedure Growth Status 10/13/17 08:00 Blood Blood Culture - Preliminary NO GROWTH AFTER 24 HOURS Resulted 10/13/17 07:50 Blood Blood Culture - Preliminary NO GROWTH AFTER 24 HOURS Resulted 10/14/17 11:35 Sputum Gram Stain - Final Resulted 10/14/17 11:35 Sputum Sputum Culture Pending Resulted 10/13/17 08:45 Nasal Nares Influenza Types A,B Antigen (MARITZA) - Final Complete Laboratory Tests Test 10/14/17 21:00 Random Vancomycin Level 9.0 ug/mL Legionella pneumophila Group 1 Ab Pending Legionella pneumophilia IgM Group 1 Pending Mycoplasma pneumoniae IgG Antibody Pending Mycoplasma pneumoniae IgM Ab Titer Pending ANH PATRICK Oct 15, 2017 11:30
[2017-10-15 12:00] VITALS: BP 124/63
--- NOTE | 2017-10-15 14:38 | Diagnostic Imaging Report ---
Indication: Cough Technique: One view of the chest Comparison: 10/13/2017 Findings: The heart is enlarged. There is persistent airspace opacity at the right lung base. There is generalized diffuse interstitial disease, unchanged. Impression: Unchanged, over 2 days, findings as above.
[2017-10-15 16:00] VITALS: BP 119/65
--- NOTE | 2017-10-15 16:22 | Diagnostic Imaging Report ---
Indication: Trauma, pain, history of fracture Technique: 2 views of the right foot Comparison: Findings: Exam is limited by the availability of only 2 views. There is an old healed fracture deformity of the distal aspect of the fifth metatarsal. There is questionably a lucency through the base of the metatarsal, not well visualized due to bony overlap. No other definite acute fractures. No dislocations. Bones are somewhat osteoporotic. Impression: Limited exam due to limited views obtained. Consider follow-up 3 view foot, as clinically indicated Cannot rule out fracture the base of the fifth metatarsal Old healed distal fifth metatarsal fracture
--- NOTE | 2017-10-15 19:37 | Cardiology Report ---
APPROVED REPORT EKG Measurement Heart [id number] [place] P-87 [id number] Atrial flutter with variable AV block Rightward axis Nonspecific ST abnormality Abnormal ECG
[2017-10-15 20:00] VITALS: BP 124/73
[2017-10-15] MEDS: Atorvastatin 20mg tab ORAL SCH (21:06)
[2017-10-15] MEDS: Flonase Nasal Inhaler 16gm NASAL SCH (21:08)
[2017-10-16] VITALS: BP 120/66
[2017-10-16] MEDS: Cefepime HCl 1 GM in D5W 55 ML IVPB SCH ×2 (02:01→13:41)
[2017-10-16] MEDS: Levalbuterol Inh UD 1.25mg/0.5ml HHN SCH ×6 (02:38→22:51)
[2017-10-16 04:00] VITALS: BP 130/79
[2017-10-16] MEDS: Solu-MEDROL 125mg Inj IVP SCH (06:05)
[2017-10-16] MEDS: Vancomycin 1250mg/D5W 250ml IVPB SCH ×2 (06:05→18:05)
[2017-10-16] MEDS: NovoLOG Insulin Flexpen SUBQ SCH ×4 (06:06→21:20)
--- NOTE | 2017-10-16 07:39 | General Progress Note ---
Assessment/Plan Problem List: (1) ams (2) Diabetes mellitus ICD Codes: E11.9 - Diabetes mellitus SNOMED: 32811036 (3) Hypertension, malignant ICD Codes: I10 - Hypertension, malignant SNOMED: 79863409 (4) CHF (5) Pneumonia ICD Codes: J18.9 - Pneumonia, unspecified organism SNOMED: 323988522 (6) Sepsis ICD Codes: A41.9 - Sepsis, unspecified organism SNOMED: 97580997 (7) COPD exacerbation ICD Codes: J44.1 - COPD exacerbation SNOMED: 714312220 (8) Toxic metabolic encephalopathy ICD Codes: G92 - Toxic encephalopathy SNOMED: 057189245 Status: stable, progressing Assessment/Plan iv abx wean steroids defer to pulm resp rx diuresis bp rx monitor bs xray foot pt wants to try [facility] aru Subjective ROS Limited/Unobtainable: No Constitutional: Reports: malaise, weakness HEENT: Reports: no symptoms Cardiovascular: Reports: no symptoms Respiratory: Reports: cough, wheezing Gastrointestinal/Abdominal: Reports: no symptoms Genitourinary: Reports: no symptoms Neurologic/Psychiatric: Reports: no symptoms Endocrine: Reports: no symptoms Hematologic/Lymphatic: Reports: no symptoms Allergies: Coded Allergies: AMOXICILLIN (Verified Allergy, Mild, RASH HIVES, 09/29/13) ERYTHROMYCIN BASE (Unverified Allergy, Unknown, 10/13/17) IODINE (Verified Allergy, Unknown, 09/29/13) PENICILLINS (Verified Allergy, Unknown, RASH HIVES, 09/29/13) All Systems: reviewed and negative except above Subjective no events. w/o complaints. much less wheezing today. less sputum. off bjpap now Objective Last 24 Hour Vital Signs Date Time Temp Pulse Resp B/P (MAP) Pulse Ox O2 Delivery O2 Flow Rate FiO2 10/16/17 07:30 97 Nasal Cannula 3.0 32 10/16/17 07:30 Nasal Cannula 3.0 32 10/16/17 07:30 98 20 97 Nasal Cannula 3.0 32 10/16/17 04:00 95 10/16/17 04:00 97.3 107 18 130/79 98 Bi-pap 40 10/16/17 03:33 93 23 98 Nasal 40 10/16/17 03:14 86 20 100 Nasal Cannula 3.0 32 10/16/17 03:00 101 24 89 Nasal Cannula 3.0 32 10/16/17 02:50 40 10/16/17 00:00 95 10/16/17 00:00 3.0 10/16/17 00:00 97.3 95 18 120/66 100 Nasal Cannula 3.0 10/15/17 23:06 99 20 96 Nasal Cannula 3.0 32 10/15/17 23:00 97 18 96 Nasal Cannula 3.0 32 10/15/17 20:00 106 10/15/17 20:00 97.3 114 18 124/73 93 Nasal Cannula 3.0 10/15/17 20:00 3.0 10/15/17 19:16 100 18 100 Nasal Cannula 3.0 32 10/15/17 19:05 101 18 100 Nasal Cannula 3.0 32 10/15/17 19:00 Nasal Cannula 3.0 32 10/15/17 19:00 100 Nasal Cannula 3.0 32 10/15/17 17:41 119/65 10/15/17 16:00 97.2 108 18 119/65 96 Nasal Cannula 3.0 10/15/17 16:00 102 10/15/17 15:47 111 20 99 Nasal Cannula 3.0 32 10/15/17 15:40 106 20 96 Nasal Cannula 3.0 32 10/15/17 12:00 96 10/15/17 12:00 97.3 92 20 124/63 99 Nasal Cannula 3.0 10/15/17 10:51 102 18 99 Nasal Cannula 3.0 32 10/15/17 10:41 101 20 99 Nasal Cannula 3.0 32 10/15/17 09:14 128/69 10/15/17 09:12 110 128/69 10/15/17 08:00 97.5 14 128/69 99 Nasal Cannula 3.0 10/15/17 08:00 113 Intake and Output 10/15/17 10/16/17 19:00 07:00 Intake Total 388.334 ml 527 ml Output Total 1400 ml 800 ml Balance -1011.666 ml -273 ml Intake Oral 472 ml IV Total 388.334 ml 55 ml Output Urine Total 1400 ml 800 ml Height (Feet): 5 Height (Inches): 9.00 Weight (Pounds): 214 Objective General Appearance: WD/WN, alert Neck: supple Cardiovascular: normal rate, regular rhythm Respiratory/Chest: chest wall non-tender, lungs clear, normal breath sounds, no respiratory distress, no accessory muscle use Abdomen: normal bowel sounds, non tender, soft, no organomegaly Edema: no edema noted Arm (L), no edema noted Arm (R), no edema noted Leg (L), no edema noted Leg (R), no edema noted Pedal (L), no edema noted Pedal (R), no edema noted 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
[2017-10-16 08:00] VITALS: BP 133/80
[2017-10-16] MEDS: Eliquis 2.5mg tablet ORAL SCH ×2 (09:30→17:24)
[2017-10-16] MEDS: Calcium Carbonate 500mg w/Vit D 200iu tab ORAL SCH (09:31)
[2017-10-16] MEDS: Montelukast 10mg tablet ORAL SCH (09:31)
[2017-10-16] MEDS: dilTIAZem HCl CD 120mg cap ORAL SCH (09:31)
[2017-10-16] MEDS: Aspirin Baby 81mg ORAL SCH (09:31)
[2017-10-16] MEDS: Amiodarone 200mg tab ORAL SCH ×2 (09:32→17:24)
[2017-10-16] MEDS: metFORMIN 500mg tab ORAL SCH ×2 (09:32→17:24)
[2017-10-16] MEDS: Docusate 100mg cap ORAL SCH ×2 (09:32→17:24)
[2017-10-16] MEDS: Anastrazole 1mg tab ORAL SCH (09:32)
[2017-10-16] MEDS: Breo Ellipta 200/25mcg-14 dose INH SCH (09:48)
--- NOTE | 2017-10-16 10:50 | Pulmonology Progress Note ---
Assessment/Plan Assessment/Plan IMPRESSION: 1. Chronic obstructive pulmonary disease with acute exacerbation. 2. Acute on chronic respiratory failure. 3. Acute on chronic respiratory acidosis. 4. Known history of sleep apnea, noncompliance. 5. Significant bronchospasm. 6. End-stage lung disease. 7. Depression and anxiety. 8. Mastectomy. 9. History of congestive heart failure with possible mild fluid overload. PLAN slow improvement ID noted IV steroids and taper BIPAP QHS and PRN oxygen therapy maintain meds monitor closely labile and fragile follow up for clearing impression, plan, and exam edited and reviewed in detail care discussed with RN Subjective Allergies: Coded Allergies: AMOXICILLIN (Verified Allergy, Mild, RASH HIVES, 09/29/13) ERYTHROMYCIN BASE (Unverified Allergy, Unknown, 10/13/17) IODINE (Verified Allergy, Unknown, 09/29/13) PENICILLINS (Verified Allergy, Unknown, RASH HIVES, 09/29/13) Subjective on NC improved acid base better still with sob Objective Last 24 Hour Vital Signs Date Time Temp Pulse Resp B/P (MAP) Pulse Ox O2 Delivery O2 Flow Rate FiO2 10/16/17 09:34 133/80 10/16/17 09:31 108 133/80 10/16/17 09:25 108 10/16/17 08:00 3.0 10/16/17 08:00 97.9 114 20 133/80 92 Nasal Cannula 3.0 10/16/17 07:43 109 20 100 Nasal Cannula 3.0 32 10/16/17 07:30 97 Nasal Cannula 3.0 32 10/16/17 07:30 Nasal Cannula 3.0 32 10/16/17 07:30 98 20 97 Nasal Cannula 3.0 32 10/16/17 04:00 95 10/16/17 04:00 97.3 107 18 130/79 98 Bi-pap 40 10/16/17 03:33 93 23 98 Nasal 40 10/16/17 03:14 86 20 100 Nasal Cannula 3.0 32 10/16/17 03:00 101 24 89 Nasal Cannula 3.0 32 10/16/17 02:50 40 10/16/17 00:00 95 10/16/17 00:00 3.0 10/16/17 00:00 97.3 95 18 120/66 100 Nasal Cannula 3.0 10/15/17 23:06 99 20 96 Nasal Cannula 3.0 32 10/15/17 23:00 97 18 96 Nasal Cannula 3.0 32 10/15/17 20:00 106 10/15/17 20:00 97.3 114 18 124/73 93 Nasal Cannula 3.0 10/15/17 20:00 3.0 10/15/17 19:16 100 18 100 Nasal Cannula 3.0 32 10/15/17 19:05 101 18 100 Nasal Cannula 3.0 32 10/15/17 19:00 Nasal Cannula 3.0 32 10/15/17 19:00 100 Nasal Cannula 3.0 32 10/15/17 17:41 119/65 10/15/17 16:00 97.2 108 18 119/65 96 Nasal Cannula 3.0 10/15/17 16:00 102 10/15/17 15:47 111 20 99 Nasal Cannula 3.0 32 10/15/17 15:40 106 20 96 Nasal Cannula 3.0 32 10/15/17 12:00 96 10/15/17 12:00 97.3 92 20 124/63 99 Nasal Cannula 3.0 10/15/17 10:51 102 18 99 Nasal Cannula 3.0 32 Intake and Output 10/15/17 10/16/17 19:00 07:00 Intake Total 388.334 ml 527 ml Output Total 1400 ml 800 ml Balance -1011.666 ml -273 ml Intake Oral 472 ml IV Total 388.334 ml 55 ml Output Urine Total 1400 ml 800 ml Objective GENERAL: The patient is an ill-appearing female, currently on nasal cannula HEENT: Fairly negative. NECK: Supple. The patient is cushingoid appearing. Neck is short. No jugular venous distention. LUNGS: Coarse breath sounds and wheezes. with some improvement CARDIAC: RRR without murmurs, rubs, or gallops. ABDOMEN: Soft, nontender, obese. EXTREMITIES: No cyanosis or clubbing. There is mild edema. NEUROLOGICAL: Grossly nonfocal, on BiPAP, awake. Microbiology Date/Time Source Procedure Growth Status 10/14/17 11:35 Sputum Gram Stain - Final Complete 10/14/17 11:35 Sputum Sputum Culture - Final NORMAL UPPER RESPIRATORY TIO PRESENT Complete Current Medications Medications (Trade) Dose Ordered Sig/Sera Route PRN Reason Start Time Stop Time Status Last Admin Dose Admin Acetaminophen (Tylenol) 650 mg Q4H PRN ORAL Pain Scale (1-6) 1/1/18 12:30 11/12/17 12:29 Amiodarone HCl (Cordarone) 200 mg BID ORAL 10/13/17 18:00 11/12/17 17:59 10/16/17 09:32 Anastrozole (Arimidex) 1 mg DAILY ORAL 10/14/17 09:00 11/13/17 08:59 10/16/17 09:32 Apixaban (Eliquis) 5 mg BID ORAL 10/13/17 18:00 11/12/17 17:59 10/16/17 09:30 Aspirin (ASA) 81 mg DAILY ORAL 10/14/17 09:00 11/13/17 08:59 10/16/17 09:31 Atorvastatin Calcium (Lipitor) 20 mg BEDTIME ORAL 10/13/17 21:00 11/12/17 20:59 10/15/17 21:06 Calcium Carbonate (OsCal D) 1 tab DAILY ORAL 10/14/17 09:00 11/13/17 08:59 10/16/17 09:31 Cefepime HCl 1 gm/ Dextrose 55 ml @ 110 mls/hr Q12HR@0200,1400 IVPB 10/13/17 15:00 10/20/17 14:59 10/16/17 02:01 Chlorhexidine Gluconate (Brandee-Hex 2%) 1 applic 2000 TOPIC 10/16/17 20:00 11/15/17 19:59 Clonidine HCl (Catapres) 0.1 mg BID ORAL 10/13/17 18:00 11/12/17 17:59 10/16/17 09:34 Clonidine HCl (Catapres) 0.1 mg Q4H PRN ORAL SBP > 160 10/13/17 13:00 11/12/17 12:59 Dextrose (Dextrose 50%) STAT PRN IV Hypoglycemia 10/13/17 12:45 11/12/17 12:44 Diltiazem HCl (Cardizem CD) 120 mg DAILY ORAL 10/14/17 09:00 11/13/17 08:59 10/16/17 09:31 Docusate Sodium (Colace) 100 mg BID ORAL 10/13/17 18:00 11/12/17 17:59 10/16/17 09:32 Doxycycline Monohydrate (Vibramycin) 100 mg EVERY 12 HOURS ORAL 10/14/17 12:00 10/21/17 11:59 10/16/17 09:31 Fluticasone Propionate (Flonase) 1 spray QHS NASAL 10/13/17 21:00 11/12/17 20:59 10/15/17 21:08 Fluticasone/ Vilanterol (Breo Ellipta 200/25) 1 puffs DAILY INH 10/14/17 09:00 11/13/17 08:59 10/16/17 09:48 Furosemide (Lasix) 20 mg DAILY ORAL 10/14/17 09:00 11/13/17 08:59 10/16/17 09:32 Insulin Aspart (NovoLOG) BEFORE MEALS AND HS SUBQ 10/13/17 16:30 11/12/17 16:29 10/16/17 06:06 Levalbuterol HCl (Xopenex) 0.625 mg Q4HRT HHN 10/13/17 15:00 10/18/17 14:59 10/16/17 07:32 Metformin HCl (Glucophage) 500 mg TWICE A DAY ORAL 10/13/17 18:00 11/12/17 17:59 10/16/17 09:32 Methylprednisolone Sodium Succinate (Solu-MEDROL) 60 mg Q12HR@0600,1800 IVP 10/14/17 18:00 11/13/17 17:59 10/16/17 06:05 Montelukast Sodium (Singulair) 10 mg DAILY ORAL 10/14/17 09:00 11/13/17 08:59 10/16/17 09:31 Pantoprazole (Protonix) 40 mg DAILY ORAL 10/14/17 09:00 11/13/17 08:59 10/16/17 09:32 Sertraline HCl (Zoloft) 100 mg BEDTIME ORAL 10/16/17 21:00 11/13/17 08:59 Temazepam (Restoril) 30 mg HSPRN PRN ORAL Insomnia 10/14/17 00:00 10/21/17 00:00 10/15/17 23:27 Tramadol HCl (Ultram) 50 mg Q8H PRN ORAL Severe Pain (Pain Scale 7-10) 10/14/17 02:00 10/21/17 01:59 10/15/17 21:07 Vancomycin HCl (Vanco rx to dose) 1 ea DAILY PRN MISC Per rx protocol 10/13/17 12:45 11/12/17 12:44 Vancomycin HCl/ Dextrose 250 ml @ 166.667 mls/hr Q12H IVPB 10/15/17 06:00 10/20/17 05:59 10/16/17 06:05 OLIVER RAYMOND Oct 16, 2017 10:50
--- NOTE | 2017-10-16 11:04 | Infectious Diseases Prog Note ---
Assessment/Plan Assessment/Plan antibiotics : vancomycin iv, cefepime, doxycycline A 1. pneumonia 2. COPD 3. DM 4. HTN 5. breast cancer P 1. continue vancomycin iv, cefepime, doxycycline 2. will follow up cultures Subjective Constitutional: Denies: fever, chills Respiratory: Reports: shortness of breath, productive cough Gastrointestinal/Abdominal: Reports: nausea, Denies: vomiting, diarrhea Musculoskeletal: Denies: pain Allergies: Coded Allergies: AMOXICILLIN (Verified Allergy, Mild, RASH HIVES, 09/29/13) ERYTHROMYCIN BASE (Unverified Allergy, Unknown, 10/13/17) IODINE (Verified Allergy, Unknown, 09/29/13) PENICILLINS (Verified Allergy, Unknown, RASH HIVES, 09/29/13) Objective Vital Signs Last 24 Hour Vital Signs Date Time Temp Pulse Resp B/P (MAP) Pulse Ox O2 Delivery O2 Flow Rate FiO2 10/16/17 10:54 99 20 97 Nasal Cannula 3.0 32 10/16/17 09:34 133/80 10/16/17 09:31 108 133/80 10/16/17 09:25 108 10/16/17 08:00 3.0 10/16/17 08:00 97.9 114 20 133/80 92 Nasal Cannula 3.0 10/16/17 07:43 109 20 100 Nasal Cannula 3.0 32 10/16/17 07:30 97 Nasal Cannula 3.0 32 10/16/17 07:30 Nasal Cannula 3.0 32 10/16/17 07:30 98 20 97 Nasal Cannula 3.0 32 10/16/17 04:00 95 10/16/17 04:00 97.3 107 18 130/79 98 Bi-pap 40 10/16/17 03:33 93 23 98 Nasal 40 10/16/17 03:14 86 20 100 Nasal Cannula 3.0 32 10/16/17 03:00 101 24 89 Nasal Cannula 3.0 32 10/16/17 02:50 40 10/16/17 00:00 95 10/16/17 00:00 3.0 10/16/17 00:00 97.3 95 18 120/66 100 Nasal Cannula 3.0 10/15/17 23:06 99 20 96 Nasal Cannula 3.0 32 10/15/17 23:00 97 18 96 Nasal Cannula 3.0 32 10/15/17 20:00 106 10/15/17 20:00 97.3 114 18 124/73 93 Nasal Cannula 3.0 10/15/17 20:00 3.0 10/15/17 19:16 100 18 100 Nasal Cannula 3.0 32 10/15/17 19:05 101 18 100 Nasal Cannula 3.0 32 10/15/17 19:00 Nasal Cannula 3.0 32 10/15/17 19:00 100 Nasal Cannula 3.0 32 10/15/17 17:41 119/65 10/15/17 16:00 97.2 108 18 119/65 96 Nasal Cannula 3.0 10/15/17 16:00 102 10/15/17 15:47 111 20 99 Nasal Cannula 3.0 32 10/15/17 15:40 106 20 96 Nasal Cannula 3.0 32 10/15/17 12:00 96 10/15/17 12:00 97.3 92 20 124/63 99 Nasal Cannula 3.0 Height (Feet): 5 Height (Inches): 9.00 Weight (Pounds): 214 Respiratory/Chest: rhonchi - bilaterally Cardiovascular: normal rate, regular rhythm, no gallop/murmur Abdomen: soft, non tender Extremities: pedal pulses normal Microbiology Date/Time Source Procedure Growth Status 10/14/17 11:35 Sputum Gram Stain - Final Complete 10/14/17 11:35 Sputum Sputum Culture - Final NORMAL UPPER RESPIRATORY TIO PRESENT Complete ANH PATRICK Oct 16, 2017 11:03
[2017-10-16 12:00] VITALS: BP 133/80
[2017-10-16 16:00] VITALS: BP 112/44
[2017-10-16] MEDS: Solu-MEDROL 40mg Inj IVP SCH (17:24)
[2017-10-16 20:00] VITALS: BP 130/77
[2017-10-16] MEDS ORDERED: Dyna-Hex 2% Top Sol 2oz TOPIC SCH (20:00)
[2017-10-16] MEDS ORDERED: Sertraline 50mg tab ORAL SCH (21:00)
[2017-10-16] MEDS: Atorvastatin 20mg tab ORAL SCH (21:18)
[2017-10-16] MEDS: Flonase Nasal Inhaler 16gm NASAL SCH (21:20)
[2017-10-17] VITALS: BP 135/67
[2017-10-17] MEDS: Cefepime HCl 1 GM in D5W 55 ML IVPB SCH (01:37)
[2017-10-17] MEDS: Levalbuterol Inh UD 1.25mg/0.5ml HHN SCH ×3 (03:00→11:38)
[2017-10-17 04:00] VITALS: BP 125/68
[2017-10-17] MEDS: Vancomycin 1250mg/D5W 250ml IVPB SCH (05:47)
[2017-10-17] MEDS: Solu-MEDROL 40mg Inj IVP SCH (05:47)
[2017-10-17] MEDS: NovoLOG Insulin Flexpen SUBQ SCH ×2 (05:57→12:23)
[2017-10-17 08:00] VITALS: BP 138/74
--- NOTE | 2017-10-17 08:28 | Pulmonology Progress Note ---
Assessment/Plan Assessment/Plan IMPRESSION: 1. Chronic obstructive pulmonary disease with acute exacerbation. 2. Acute on chronic respiratory failure. 3. Acute on chronic respiratory acidosis. 4. Known history of sleep apnea, noncompliance. 5. Significant bronchospasm. 6. End-stage lung disease. 7. Depression and anxiety. 8. Mastectomy. 9. History of congestive heart failure with possible mild fluid overload. PLAN slow improvement noted ID noted IV steroids and taper slowly BIPAP QHS and PRN oxygen therapy maintain meds monitor closely labile and fragile follow up for clearing and improvement and dc to SNF impression, plan, and exam edited and reviewed in detail care discussed with RN Subjective Allergies: Coded Allergies: AMOXICILLIN (Verified Allergy, Mild, RASH HIVES, 09/29/13) ERYTHROMYCIN BASE (Unverified Allergy, Unknown, 10/13/17) IODINE (Verified Allergy, Unknown, 09/29/13) PENICILLINS (Verified Allergy, Unknown, RASH HIVES, 09/29/13) Subjective on oxygen improvement is slow acid base better still with sob but near baseline Objective Last 24 Hour Vital Signs Date Time Temp Pulse Resp B/P (MAP) Pulse Ox O2 Delivery O2 Flow Rate FiO2 10/17/17 08:00 3.0 10/17/17 07:39 107 20 100 Nasal Cannula 2.0 28 10/17/17 07:38 28 10/17/17 07:33 Nasal Cannula 2.0 28 10/17/17 07:33 99 Nasal Cannula 2.0 28 10/17/17 07:30 99 20 100 Nasal Cannula 2.0 28 10/17/17 05:15 102 21 100 Nasal 40 10/17/17 04:00 3.0 10/17/17 04:00 97.6 111 20 125/68 98 Nasal Cannula 3.0 10/17/17 03:35 104 10/17/17 03:22 Nasal Cannula 3.0 32 10/17/17 00:00 97.7 100 20 135/67 100 Nasal Cannula 3.0 10/16/17 23:08 92 22 100 Nasal Cannula 4.0 36 10/16/17 22:50 93 20 97 Nasal Cannula 3.0 32 10/16/17 22:50 32 10/16/17 20:33 95 20 Nasal Cannula 3.0 32 10/16/17 20:22 99 10/16/17 20:18 32 10/16/17 20:18 99 Nasal Cannula 3.0 32 10/16/17 20:18 Nasal Cannula 3.0 32 10/16/17 20:18 93 20 99 Nasal Cannula 3.0 32 10/16/17 20:00 3.0 10/16/17 20:00 98.2 100 20 130/77 100 Nasal Cannula 3.0 10/16/17 17:24 112/44 10/16/17 16:20 103 20 100 Nasal Cannula 4.0 36 10/16/17 16:09 101 18 99 Nasal Cannula 3.0 32 10/16/17 16:00 3.0 10/16/17 16:00 103 10/16/17 16:00 97.3 110 18 112/44 99 Nasal Cannula 3.0 10/16/17 12:00 108 10/16/17 12:00 3.0 10/16/17 12:00 98.2 108 20 133/80 97 Nasal Cannula 3.0 10/16/17 11:01 108 20 100 Nasal Cannula 3.0 32 10/16/17 10:54 99 20 97 Nasal Cannula 3.0 32 10/16/17 09:34 133/80 10/16/17 09:31 108 133/80 10/16/17 09:25 108 Intake and Output 10/16/17 10/17/17 19:00 07:00 Intake Total 957.778 ml 424.445 ml Output Total 1350 ml 600 ml Balance -392.222 ml -175.555 ml Intake Oral 500 ml IV Total 457.778 ml 424.445 ml Output Urine Total 1350 ml 600 ml # Bowel Movements 4 Objective GENERAL: The patient is an ill-appearing female, currently on nasal cannula HEENT: Fairly negative. NECK: Supple. The patient is cushingoid appearing. Neck is short. No jugular venous distention. LUNGS: scattered wheezes. with reduced breath sounds CARDIAC: RRR without murmurs, rubs, or gallops. ABDOMEN: Soft, nontender, obese. EXTREMITIES: No cyanosis or clubbing. There is mild edema. NEUROLOGICAL: Grossly nonfocal, Microbiology Date/Time Source Procedure Growth Status 10/14/17 11:35 Sputum Gram Stain - Final Complete 10/14/17 11:35 Sputum Sputum Culture - Final NORMAL UPPER RESPIRATORY TIO PRESENT Complete Laboratory Tests 10/16/17 16:48: Vancomycin Level Trough 17.9H Current Medications Medications (Trade) Dose Ordered Sig/Sera Route PRN Reason Start Time Stop Time Status Last Admin Dose Admin Acetaminophen (Tylenol) 650 mg Q4H PRN ORAL Pain Scale (1-6) 10/13/17 12:30 11/12/17 12:29 Amiodarone HCl (Cordarone) 200 mg BID ORAL 10/13/17 18:00 11/12/17 17:59 10/16/17 17:24 Anastrozole (Arimidex) 1 mg DAILY ORAL 10/14/17 09:00 11/13/17 08:59 10/16/17 09:32 Apixaban (Eliquis) 5 mg BID ORAL 10/13/17 18:00 11/12/17 17:59 10/16/17 17:24 Aspirin (ASA) 81 mg DAILY ORAL 10/14/17 09:00 11/13/17 08:59 10/16/17 09:31 Atorvastatin Calcium (Lipitor) 20 mg BEDTIME ORAL 10/13/17 21:00 11/12/17 20:59 10/16/17 21:18 Calcium Carbonate (OsCal D) 1 tab DAILY ORAL 10/14/17 09:00 11/13/17 08:59 10/16/17 09:31 Cefepime HCl 1 gm/ Dextrose 55 ml @ 110 mls/hr Q12HR@0200,1400 IVPB 10/13/17 15:00 10/20/17 14:59 10/17/17 01:37 Chlorhexidine Gluconate (Brandee-Hex 2%) 1 applic 2000 TOPIC 10/16/17 20:00 11/15/17 19:59 10/16/17 21:17 Clonidine HCl (Catapres) 0.1 mg BID ORAL 10/13/17 18:00 11/12/17 17:59 10/16/17 17:24 Clonidine HCl (Catapres) 0.1 mg Q4H PRN ORAL SBP > 160 10/13/17 13:00 11/12/17 12:59 Dextrose (Dextrose 50%) STAT PRN IV Hypoglycemia 10/13/17 12:45 11/12/17 12:44 Diltiazem HCl (Cardizem CD) 120 mg DAILY ORAL 10/14/17 09:00 11/13/17 08:59 10/16/17 09:31 Docusate Sodium (Colace) 100 mg BID ORAL 10/13/17 18:00 11/12/17 17:59 10/16/17 17:24 Doxycycline Monohydrate (Vibramycin) 100 mg EVERY 12 HOURS ORAL 10/14/17 12:00 10/21/17 11:59 10/16/17 21:18 Fluticasone Propionate (Flonase) 1 spray QHS NASAL 10/13/17 21:00 11/12/17 20:59 10/16/17 21:20 Fluticasone/ Vilanterol (Breo Ellipta 200/25) 1 puffs DAILY INH 10/14/17 09:00 11/13/17 08:59 10/16/17 09:48 Furosemide (Lasix) 20 mg DAILY ORAL 10/14/17 09:00 11/13/17 08:59 10/16/17 09:32 Insulin Aspart (NovoLOG) BEFORE MEALS AND HS SUBQ 10/13/17 16:30 11/12/17 16:29 10/17/17 05:57 Levalbuterol HCl (Xopenex) 0.625 mg Q4HRT HHN 10/13/17 15:00 10/18/17 14:59 10/17/17 07:30 Metformin HCl (Glucophage) 500 mg TWICE A DAY ORAL 10/13/17 18:00 11/12/17 17:59 10/16/17 17:24 Methylprednisolone Sodium Succinate (Solu-MEDROL) 40 mg Q12HR@0600,1800 IVP 10/16/17 18:00 11/15/17 17:59 10/17/17 05:47 Montelukast Sodium (Singulair) 10 mg DAILY ORAL 10/14/17 09:00 11/13/17 08:59 10/16/17 09:31 Pantoprazole (Protonix) 40 mg DAILY ORAL 10/14/17 09:00 11/13/17 08:59 10/16/17 09:32 Sertraline HCl (Zoloft) 100 mg BEDTIME ORAL 10/16/17 21:00 11/13/17 08:59 10/16/17 21:18 Temazepam (Restoril) 30 mg HSPRN PRN ORAL Insomnia 10/14/17 00:00 10/21/17 00:00 10/16/17 21:41 Tramadol HCl (Ultram) 50 mg Q8H PRN ORAL Severe Pain (Pain Scale 7-10) 10/14/17 02:00 10/21/17 01:59 10/15/17 21:07 Vancomycin HCl (Vanco rx to dose) 1 ea DAILY PRN MISC Per rx protocol 10/13/17 12:45 11/12/17 12:44 Vancomycin HCl/ Dextrose 250 ml @ 166.667 mls/hr Q12H IVPB 10/15/17 06:00 10/20/17 05:59 10/17/17 05:47 OLIVER RAYMOND Oct 17, 2017 08:28
[2017-10-17] MEDS: metFORMIN 500mg tab ORAL SCH (09:26)
[2017-10-17] MEDS: Amiodarone 200mg tab ORAL SCH (09:26)
[2017-10-17] MEDS: Montelukast 10mg tablet ORAL SCH (09:27)
[2017-10-17] MEDS: Aspirin Baby 81mg ORAL SCH (09:27)
[2017-10-17] MEDS: Calcium Carbonate 500mg w/Vit D 200iu tab ORAL SCH (09:27)
[2017-10-17] MEDS: Anastrazole 1mg tab ORAL SCH (09:27)
[2017-10-17] MEDS: dilTIAZem HCl CD 120mg cap ORAL SCH (09:28)
[2017-10-17] MEDS: Eliquis 2.5mg tablet ORAL SCH (09:29)
[2017-10-17] MEDS: Docusate 100mg cap ORAL SCH (09:29)
[2017-10-17] MEDS: Breo Ellipta 200/25mcg-14 dose INH SCH (09:33)
--- NOTE | 2017-10-17 11:48 | Diagnostic Imaging Report ---
Indication: Cough Technique: One view of the chest Comparison: 10/15/2017 Findings: The heart is enlarged. Bilateral diffuse interstitial congestion persists. Right basilar opacity is again demonstrated, shown on a prior CT to represent a fat-containing Bochdalek hernia. Findings are overall unchanged Impression: Unchanged, over 2 days, findings as above.
[2017-10-17 12:00] VITALS: BP 136/79
--- NOTE | 2017-10-17 13:12 | Infectious Diseases Prog Note ---
Assessment/Plan Assessment/Plan antibiotics : vancomycin iv, cefepime, doxycycline A 1. pneumonia 2. COPD 3. DM 4. HTN 5. breast cancer P 1. d/c vancomycin iv, cefepime, doxycycline 2. start and continue po levoquin 5 more days 3. will follow up cultures Subjective Constitutional: Denies: fever, chills Respiratory: Reports: shortness of breath, dry cough Gastrointestinal/Abdominal: Denies: nausea, vomiting, diarrhea Musculoskeletal: Denies: pain Allergies: Coded Allergies: AMOXICILLIN (Verified Allergy, Mild, RASH HIVES, 09/29/13) ERYTHROMYCIN BASE (Unverified Allergy, Unknown, 10/13/17) IODINE (Verified Allergy, Unknown, 09/29/13) PENICILLINS (Verified Allergy, Unknown, RASH HIVES, 09/29/13) Objective Vital Signs Last 24 Hour Vital Signs Date Time Temp Pulse Resp B/P (MAP) Pulse Ox O2 Delivery O2 Flow Rate FiO2 10/17/17 12:00 97.9 113 20 136/79 98 Nasal Cannula 3.0 10/17/17 12:00 3.0 10/17/17 11:43 109 20 100 Nasal Cannula 2.0 28 10/17/17 11:43 28 10/17/17 11:39 89 20 96 Nasal Cannula 2.0 28 10/17/17 09:29 138/74 10/17/17 09:28 113 138/74 10/17/17 08:00 3.0 10/17/17 08:00 97.3 120 16 138/74 98 Nasal Cannula 3.0 10/17/17 08:00 112 10/17/17 07:39 107 20 100 Nasal Cannula 2.0 28 10/17/17 07:38 28 10/17/17 07:33 Nasal Cannula 2.0 28 10/17/17 07:33 99 Nasal Cannula 2.0 28 10/17/17 07:30 99 20 100 Nasal Cannula 2.0 28 10/17/17 05:15 102 21 100 Nasal 40 10/17/17 04:00 3.0 10/17/17 04:00 97.6 111 20 125/68 98 Nasal Cannula 3.0 10/17/17 03:35 104 10/17/17 03:22 Nasal Cannula 3.0 32 10/17/17 00:00 97.7 100 20 135/67 100 Nasal Cannula 3.0 10/16/17 23:08 92 22 100 Nasal Cannula 4.0 36 10/16/17 22:50 93 20 97 Nasal Cannula 3.0 32 10/16/17 22:50 32 10/16/17 20:33 95 20 Nasal Cannula 3.0 32 10/16/17 20:22 99 10/16/17 20:18 32 10/16/17 20:18 99 Nasal Cannula 3.0 32 10/16/17 20:18 Nasal Cannula 3.0 32 10/16/17 20:18 93 20 99 Nasal Cannula 3.0 32 10/16/17 20:00 3.0 10/16/17 20:00 98.2 100 20 130/77 100 Nasal Cannula 3.0 10/16/17 17:24 112/44 10/16/17 16:20 103 20 100 Nasal Cannula 4.0 36 10/16/17 16:09 101 18 99 Nasal Cannula 3.0 32 10/16/17 16:00 3.0 10/16/17 16:00 103 10/16/17 16:00 97.3 110 18 112/44 99 Nasal Cannula 3.0 Height (Feet): 5 Height (Inches): 9.00 Weight (Pounds): 214 Respiratory/Chest: rhonchi - bilaterally - decreasing Cardiovascular: normal rate, regular rhythm, no gallop/murmur Abdomen: soft, non tender Extremities: no edema Laboratory Tests Test 10/16/17 16:48 Vancomycin Level Trough 17.9 ug/mL (5.0-12.0) H ANH PATRICK Oct 17, 2017 13:12
[2017-10-17] MEDS ORDERED: Levofloxacin 500mg tab ORAL SCH (13:45)
[2017-10-17] MEDS ORDERED: NS 500ML ONE ×2 (16:45)
[2017-10-17] MEDS ORDERED: Tubing IV Secondary IV ONE (16:45)
[2017-10-17] MEDS ORDERED: D5 1/2NS 1000ml IV ONE (16:45)
--- NOTE | 2017-10-20 09:36 | Discharge Summary ---
Discharge Summary Hospital Course Date of Admission Oct 13, 2017 at 07:03 Date of Discharge Oct 17, 2017 at 16:46 Admitting Diagnosis COPD EXASEBRATION HPI Shelby Bull is a 57 year old female who was admitted on Oct 13, 2017 at 07:03 for Chronic Obstructive Pulmonary Disorder Exacerbatio Procedures dc summary #[id number] Discharge Condition Upon Discharge: stable Discharge Disposition Patient was discharged to acute rehab unit at [facility] [place] Discharge Diagnoses: Discharge Instructions Discharge Instructions Special Instructions I have been assigned to complete a D/C Summary on this account. I was not involved in the patient management Elissa Cho NP ([place]te[place]) Oct 20, 2017 09:35
--- NOTE | 2017-10-20 17:30 | Discharge Summary 2 SIG ---
DATE OF ADMISSION: 10/13/2017 DATE OF DISCHARGE: 10/17/2017 REASON FOR ADMISSION: 57-year-old female, resident of [facility], with past medical history significant for breast cancer, status post mastectomy, hypertension, diabetes, paroxysmal atrial fibrillation, CHF, COPD, chronic depression, recent right lower extremity fracture, presented with complaint of shortness of breath, cough, congestion, and altered mental status. Few days ago, the patient developed cough and congestion. On evaluation in the emergency room, the patient found to have hypercapnic respiratory failure. Chest x-ray with evidence of pneumonia and CHF. The patient was started on the BiPAP, IV antibiotic and steroids and admitted for further management with diagnoses of altered mental status, sepsis, COPD exacerbation, hypercapnic respiratory failure, congestive heart failure, pneumonia. HOSPITAL COURSE: The patient was admitted to [facility]. The patient was started on empiric antibiotics. ID consult requested. The patient initially was on the BiPAP, FiO2 titrated to keep saturation above 92%. Pulmonary toilet provided. Adjunct Professor Of Voice closely followed. The patient was followed up with chest x-ray. The patient was on intravenous steroids. Nebulizing treatment provided [id number] and as needed. The patient was on oral diuretic. Volumes and cardiorenal parameters were closely monitored. Sputum, blood culture, and influenza screen were all negative. The patient status post IV antibiotic and would need oral antibiotic upon discharge to complete the course of treatment as per ID recommendation. Blood sugar was managed with sliding scale of insulin and remained stable. According to technician semiconductor development, the patient had end-stage lung disease. IV steroids were slowly tapering. The patient was able to be weaned off BiPAP, however, BiPAP was on the standby for use at night and as needed. The patient was encouraged to be compliant with BiPAP at night (CPAP at home ) for obstructive sleep apnea. The patient has history of respiratory failure in the past. On telemetry at this time, the patient demonstrated sinus tachycardia and sinus rhythm. No evidence of paroxysmal atrial fibrillation. The patient had altered mental status present on admission due to the toxic metabolic encephalopathy likely secondary to acute hypercapnic respiratory failure as well as infectious process. Mental status back to baseline. The patient was clinically improved and stable for transfer. The patient with recent right lower extremity fracture. Right foot x-ray could not rule out fracture of the 5 metatarsal. Transfer was arranged to acute rehabilitation unit at [facility] in [place]. The patient was subsequently transferred. DISCHARGE MEDICATIONS: List of medication was sent to admitting facility. DISCHARGE INSTRUCTIONS: The patient was discharged to acute rehabilitation unit in [facility] in [place]. FOLLOWUP: Follow up with medical doctor at the facility. FINAL DIAGNOSES: 1. Acute and chronic hypercapnic respiratory failure. 2. Chronic obstructive pulmonary disease with acute exacerbation. 3. Acute and chronic respiratory acidosis. 4. End-stage lung disease. 5. Significant bronchospasm. 6. Known history of sleep apnea 7. Congestive heart failure with mild fluid overload. 8. Non-compliance 9. Diabetes mellitus. 10. Breast cancer with mastectomy. 11. Paroxysmal atrial fibrillation. 12. Depression with anxiety. 13. Toxic metabolic encephalopathy. Floyd Downey M.D. I have been assigned to dictate discharge summary on this account and I was not involved in the patient's management. Elissa CoatesMatteawan State Hospital For The Criminally InsaneJenn N.PLincoln PONCE: Ryan JOB#: [id number] CC: SENTHIL
== END 2017-10-17 16:46 | disposition short-term general hospital (02) | DRG 193 ==
LOC: EDBD 06:19 → EDBEDREQ 06:33 → EMR 07:01 → 2W 07:03 → EDBEDREQ 07:17 → EDBEDREQSVC 08:35 → EDBEDREQ 19:31 → 2W 10-16 10:59
DX: J18.9 Pneumonia, unspecified organism (principal); J96.22 Acute and chronic respiratory failure with hypercapnia; G92 Toxic encephalopathy; J44.0 Chronic obstructive pulmonary disease with (acute) lower respiratory infection; E87.2 Acidosis; J44.1 Chronic obstructive pulmonary disease with (acute) exacerbation; I50.9 Heart failure, unspecified; I48.0 Paroxysmal atrial fibrillation; E11.9 Type 2 diabetes mellitus without complications; I10 Essential (primary) hypertension; F32.89 Other specified depressive episodes; F41.9 Anxiety disorder, unspecified; Z91.19 Patient's noncompliance with other medical treatment and regimen; Z79.4 Long term (current) use of insulin; G47.30 Sleep apnea, unspecified; Z79.01 Long term (current) use of anticoagulants; Z85.42 Personal history of malignant neoplasm of other parts of uterus; R00.0 Tachycardia, unspecified; Z88.0 Allergy status to penicillin; Z88.1 Allergy status to other antibiotic agents; Z87.891 Personal history of nicotine dependence; Z90.11 Acquired absence of right breast and nipple; Z85.3 Personal history of malignant neoplasm of breast; Z79.84 Long term (current) use of oral hypoglycemic drugs
CPT/HCPCS: 36415; 36600; 71045; 80053; 80202; 81003; 82550; 82553; 82803; 82962; 83605; 83880; 84484; 85007; 85025; 86710; 86713; 86738; 87040; 87070; 87205; 93005; 94640; 94660; 94664; 94760; J1815

== ENCOUNTER 2018-05-11 15:48 | Inpatient (IN) | payer MEDICARE, MEDICAID ==
[~2018-05-11] VITALS: Ht 154.9 cm; Wt 101.6 kg
[~2018-05-11 15:48] MED LIST changes: +ACETAMINOPHEN325 M1 ORAL; -Albuterol ud Inhalation HHN SCH; +BREO ELLIPTA 21 EACH IH; +DALIRESP500 MCG PO; +INCRUSE ELLI62.5 MCG IH; +LIDOCAINE700 M1 TP; +MELATONIN1 M2 PO; +MONTELUKAST SOD10 MG ORAL; +NOVOLOG100 UNITS1; -Solu-MEDROL 125mg Inj IVP ONE; +TRAMADOL HCL50 MG ORAL; +XOPENEX1.25 MG/3 HHN
[2018-05-11 17:00] VITALS: BP 129/68
[2018-05-11] MEDS ORDERED: MELATONIN5 M5 ORAL (17:39)
[2018-05-11] MEDS ORDERED: HYDRALAZINE HCL25 M1 ORAL (17:39)
[2018-05-11] MEDS ORDERED: PREDNISONE10 MG ORAL (17:39)
[2018-05-11] MEDS ORDERED: SILDENAFIL20 MG ORAL (17:39)
[2018-05-11] MEDS ORDERED: Albuterol/Ipratropium 3ml neb HHN SCH (19:00)
[2018-05-11] MEDS ORDERED: traMADol 50mg tab ORAL PRN (19:15)
[2018-05-11] MEDS ORDERED: Ondansetron ODT 8mg tab ORAL PRN (19:15)
[2018-05-11 20:00] VITALS: BP 158/83
[2018-05-11] MEDS ORDERED: Amiodarone 200mg tab ORAL SCH (21:00)
[2018-05-11] MEDS: Amiodarone 200mg tab ORAL SCH (22:10)
[2018-05-11] MEDS: HydrALAZINE 25mg tab ORAL SCH (22:10)
[2018-05-11] MEDS: Atorvastatin 20mg tab ORAL SCH (22:10)
[2018-05-11] MEDS: NovoLOG Insulin Flexpen SUBQ SCH (22:17)
[2018-05-11] MEDS: Tylenol #3 tab (300mg/30mg) ORAL PRN (22:29)
[2018-05-11] MEDS: Bacitracin Oint UD TOPIC SCH (22:44)
--- NOTE | 2018-05-11 22:45 | History and Physical Report ---
DATE OF ADMISSION: 05/11/2018 REASON FOR ADMISSION: Worsening shortness of breath, chest tightness and swelling of her left upper extremity. HISTORY: This is a 57-year-old female with a history of significant COPD with history of respiratory failure and CO2 retention. She has been convalescing at home. She has been receiving physical therapy. She apparently was treated with some ice packs over her chest last week and they were tied around her chest wall and arms to remain in place following activity. When they were removed, some skin was removed from her left shoulder region and has been persistent swelling of her left arm and chest wall with some bruising earlier. She also has had increasing shortness of breath over the past week despite use of oral steroids and has had difficulty with ear pain, congestion for which she recently saw Dr. Rico Buckner who ordered a CT scan of ear canals that has yet to be completed. PAST MEDICAL HISTORY: 1. Hypertension. 2. Chronic venous insufficiency. 3. Diastolic dysfunction with history of congestive heart failure. 4. Pulmonary hypertension. 5. COPD. 6. CO2 retention. 7. Sleep apnea. 8. History of respiratory failure. 9. Insulin-requiring diabetes mellitus. 10. Hyperlipidemia. 11. Peripheral neuropathy. 12. Breast cancer status post right mastectomy. 13. Chronic kidney disease due to diabetic nephropathy. 14. Microvascular atherosclerosis. 15. Peripheral artery disease. 16. Paroxysmal atrial fibrillation. SOCIAL HISTORY: A 50+ pack year smoker. Still with some smoking. No alcohol. Prior history of substance abuse. FAMILY HISTORY: Notable for breast cancer in her siblings. ALLERGIES: Penicillin and iodine as well as erythromycin. REVIEW OF SYSTEMS: A 10-point review of systems performed. All systems negative other than noted above. PHYSICAL EXAMINATION: GENERAL: Moderately obese female in mild respiratory distress. VITAL SIGNS: Blood pressure 129/68, pulse 87, and respiratory rate 22, and afebrile. HEENT: Conjunctivae pink. Arcus senilis. Sclerae are anicteric. Oropharynx clear. Mucous membranes moist. NECK: Supple and obese. Difficult to assess jugular venous pressure. Carotid upstrokes without delay. There is no accessory muscle use. There are no lesions on the ear canal. LUNGS: Revealed diminished breath sounds with scattered rhonchi. Few expiratory wheezes. Mastectomy scar noted. No breast mass on the left. Chest wall with some tenderness to palpation. There is mild edema over the chest wall and shoulder regions, left greater than right. CARDIAC: Regular rhythm rate. Normal S1 and S2 with a fourth heart sound. ABDOMEN: Obese, soft and nontender with no guarding or rebound. EXTREMITIES: No clubbing or cyanosis. Edema of the upper extremities, left greater than right. SKIN: Notable for 2 abrasion sites over the left shoulder region. NEUROLOGIC: Nonfocal. LABORATORY AND DIAGNOSTIC DATA: Labs are pending. IMPRESSION: 1. COPD with exacerbation. 2. Paroxysmal bronchospasm. 3. History of CO2 retention and respiratory failure. 4. Possible ear canal disease and sinusitis. 5. Abrasions to left shoulder. 6. Contusion chest wall with some associated edema. 7. Hypertensive heart disease. 8. Chronic diastolic congestive heart failure. 9. Chronic venous insufficiency. 10. History of sleep apnea. 11. History of breast cancer. PLAN: 1. Cardiac monitoring. 2. IV steroids. 3. Inhaled bronchodilators. 4. CT scans of the chest and maxillofacial region. 5. Decrease amiodarone to maintenance dose of 200 mg daily. 6. Check thyroid panel. 7. Continue anticoagulation with Eliquis for cardioembolic prophylaxis. 8. Pulmonary and ENT consultation. Werner Martinez M.D. DR: KAYLA JOB#: [id number] CC: SENTHIL
[2018-05-11] MEDS: Levalbuterol Inh UD 1.25mg/0.5ml HHN SCH (23:21)
[2018-05-11 23:37] VITALS: BP 148/84
[2018-05-12] MEDS: HydrOXYzine 50mg tab ORAL PRN ×2 (01:16→22:20)
[2018-05-12 04:00] VITALS: BP 146/79
[2018-05-12] MEDS: HydrALAZINE 25mg tab ORAL SCH ×3 (06:25→21:46)
[2018-05-12] MEDS: NovoLOG Insulin Flexpen SUBQ SCH ×4 (06:26→21:06)
[2018-05-12] MEDS: Tylenol #3 tab (300mg/30mg) ORAL PRN ×2 (06:58→16:22)
[2018-05-12] MEDS: Levalbuterol Inh UD 1.25mg/0.5ml HHN SCH ×3 (07:07→19:57)
[2018-05-12 07:33] LABS: BASOPHILS % (AUTO) 1.4 % (0.0-2.0); EOSINOPHILS % (AUTO) 0.6 % (0.0-3.0); HEMATOCRIT 29.3 % (37.0-47.0); HEMOGLOBIN 9.3 G/DL (12.0-16.0); LYMPHOCYTES % (AUTO) 23.9 % (20.0-45.0); MEAN CORPUSCULAR VOLUME 89 FL (80-99); MONOCYTES % (AUTO) 6.2 % (1.0-10.0); PLATELET COUNT 344 K/UL (150-450); RED BLOOD COUNT 3.29 M/UL (4.20-5.40); RED CELL DISTRIBUTION WIDTH 13.1 % (11.6-14.8); WHITE BLOOD COUNT 13.7 K/UL (4.8-10.8)
[2018-05-12 07:50] LABS: ALANINE AMINOTRANSFERASE 17 U/L (12-78); ALBUMIN 2.7 G/DL (3.4-5.0); ALBUMIN/GLOBULIN RATIO 0.7 (1.0-2.7); ALKALINE PHOSPHATASE 80 U/L (46-116); ANION GAP 5 mmol/L (5-15); ASPARTATE AMINO TRANSFERASE 10 U/L (15-37); BILIRUBIN,TOTAL 0.2 MG/DL (0.2-1.0); BLOOD UREA NITROGEN 22 mg/dL (7-18); CALCIUM 8.9 MG/DL (8.5-10.1); CARBON DIOXIDE 35 MMOL/L (21-32); CHLORIDE 103 MMOL/L (98-107); CREATININE 0.8 MG/DL (0.55-1.30); POTASSIUM 3.4 MMOL/L (3.5-5.1); SODIUM 143 MMOL/L (136-145)
[2018-05-12 08:00] VITALS: BP 143/72
--- NOTE | 2018-05-12 08:01 | Consultation ---
Consult Note Consult Note 58 year-old female with a history of endstage COPD and respiratory failure with chronic hypercapnia and hypoxemia. She apparently was treated with some ice packs over her chest and left arm last week and they were tied around her chest wall and arms for prolonged period of time. Patient noted blistering and swelling of the left arm with difficulty moving. She also has had increasing shortness of breath, chest tightness, and ear pain and did see Dr. Rico Buckner who ordered a CT scan of ear canals as well as a hearing test. Patient with use of BIPAP nightly. she has chronic oxygen. she has had multiple bouts of respiratory failure requiring intubation. patient with long smoking history but has quit recently. she is celebrating her birthday today. she is overall worse than baseline but comfortable. no fevers or chills. scant sputum noted PAST MEDICAL HISTORY: 1. Hypertensive heart disease. 2. Chronic venous insufficiency. 3. congestive heart failure. 4. Pulmonary hypertension. 5. COPD. 6. CO2 retention. 7. Sleep apnea. 8. History of respiratory failure. 9. Insulin-requiring diabetes mellitus. 10. Hyperlipidemia. 11. Mastectomy 12. Breast cancer 13. Chronic kidney disease 14. depression 15. Peripheral artery disease. 16. Paroxysmal atrial fibrillation. SOCIAL HISTORY: A 50+ pack year smoker. No alcohol. disabled. has been in SNF multiple times. now at home FAMILY HISTORY: breast cancer in her siblings. ALLERGIES/MEDS: reviewed REVIEW OF SYSTEMS: 10-point review of systems performed. chronic pain and anxiety PHYSICAL EXAMINATION: GENERAL: obese female in mild respiratory distress. alert VITAL SIGNS: see attached HEENT: no thrush; clear; Mucous membranes moist. NECK: Supple Carotid 2+. There is no accessory muscle use. LUNGS: reduced breath sounds with some rhonchi. Few expiratory wheezes. CARDIAC: Regular rhythm rate. Normal S1 and S2 with a fourth heart sound. without MR ABDOMEN: Obese, soft and nontender EXTREMITIES: Edema of the upper extremities, left greater than right. reduced ROM of shoulder arm Left SKIN: Notable for 2 abrasion sites over the left shoulder region and arm NEUROLOGIC: Nonfocal. LABORATORY AND DIAGNOSTIC DATA: Laboratory Tests Test 05/12/18 07:06 White Blood Count Pending Red Blood Count Pending Hemoglobin Pending Hematocrit Pending Mean Corpuscular Volume Pending Mean Corpuscular Hemoglobin Pending Mean Corpuscular Hemoglobin Concent Pending Red Cell Distribution Width Pending Platelet Count Pending Mean Platelet Volume Pending Neutrophils (%) (Auto) Pending Lymphocytes (%) (Auto) Pending Monocytes (%) (Auto) Pending Eosinophils (%) (Auto) Pending Basophils (%) (Auto) Pending Sodium Level 143 MMOL/L (136-145) Potassium Level 3.4 MMOL/L (3.5-5.1) L Chloride Level 103 MMOL/L (98-107) Carbon Dioxide Level 35 MMOL/L (21-32) H Anion Gap 5 mmol/L (5-15) Blood Urea Nitrogen 22 mg/dL (7-18) H Creatinine 0.8 MG/DL (0.55-1.30) Estimat Glomerular Filtration Rate > 60 mL/min (>60) Glucose Level 128 MG/DL (74-106) H Hemoglobin A1c Pending Uric Acid 3.2 MG/DL (2.6-7.2) Calcium Level 8.9 MG/DL (8.5-10.1) Total Bilirubin 0.2 MG/DL (0.2-1.0) Aspartate Amino Transf (AST/SGOT) 10 U/L (15-37) L Alanine Aminotransferase (ALT/SGPT) 17 U/L (12-78) Alkaline Phosphatase 80 U/L (46-116) Pro-B-Type Natriuretic Peptide 343 pg/mL (0-125) H Total Protein 6.8 G/DL (6.4-8.2) Albumin 2.7 G/DL (3.4-5.0) L Globulin 4.1 g/dL Albumin/Globulin Ratio 0.7 (1.0-2.7) L Thyroid Stimulating Hormone (TSH) 0.452 uiU/mL (0.358-3.740) IMPRESSION: 1. COPD with exacerbation. 2. ho Respiratory failure 3. hypercapnia 4. ear canal disease and pain 5. Abrasions to left shoulder. 6. blisters left arm 7. Hypertensive heart disease. 8. Chronic diastolic congestive heart failure. 9. Chronic venous insufficiency. 10. History of sleep apnea. 11. History of breast cancer. PLAN care noted IV antibiotics respiratory care BIPAP home meds supportive care encourage cough and clearance of secretions oxygen therapy ENT sinus/facial CT impression, plan, and exam edited and reviewed in detail care discussed with Froilan Clarke MD May 12, 2018 08:01
--- NOTE | 2018-05-12 08:04 | Pulmonology Progress Note ---
Subjective Allergies: Coded Allergies: AMOXICILLIN (Verified Allergy, Mild, RASH HIVES, 09/29/13) ERYTHROMYCIN BASE (Unverified Allergy, Unknown, 10/13/17) IODINE (Verified Allergy, Unknown, 09/29/13) PENICILLINS (Verified Allergy, Unknown, RASH HIVES, 09/29/13) Objective Last 24 Hour Vital Signs Date Time Temp Pulse Resp B/P (MAP) Pulse Ox O2 Delivery O2 Flow Rate FiO2 05/12/18 07:15 98 20 96 Nasal Cannula 3.0 32 05/12/18 07:14 94 22 Nasal Cannula 3.0 32 05/12/18 07:06 94 22 92 Nasal Cannula 3.0 32 05/12/18 07:05 92 Nasal Cannula 3.0 32 05/12/18 07:05 Nasal Cannula 3.0 32 05/12/18 06:25 146/79 05/12/18 05:30 79 19 97 Facial 30 05/12/18 04:00 84 05/12/18 04:00 98.6 95 19 146/79 (101) 95 98.6 05/12/18 03:10 82 19 96 Facial 30 05/12/18 02:25 85 18 97 Facial 30 05/12/18 02:25 Nasal Cannula 3.0 32 05/12/18 02:25 94 Nasal Cannula 3.0 32 05/12/18 00:00 95 05/11/18 23:37 98.5 93 20 148/84 (105) 94 98.5 05/11/18 23:21 91 22 94 Nasal Cannula 3.0 32 05/11/18 23:21 91 22 Nasal Cannula 3.0 32 05/11/18 22:10 158/83 05/11/18 21:23 94 Nasal Cannula 3.0 32 05/11/18 21:23 Nasal Cannula 3.0 32 05/11/18 21:00 Nasal Cannula 3.0 05/11/18 20:00 93 05/11/18 20:00 98.6 96 19 158/83 (108) 94 98.6 05/11/18 18:40 85 05/11/18 18:19 Nasal Cannula 3.0 05/11/18 17:00 98.2 87 22 129/68 (88) 94 98.2 Intake and Output 05/11/18 05/12/18 19:00 07:00 Intake Total 980 ml Balance 980 ml Intake Oral 980 ml # Voids 3 Laboratory Tests 05/12/18 07:06: White Blood Count [Pending], Red Blood Count [Pending], Hemoglobin [Pending], Hematocrit [Pending], Mean Corpuscular Volume [Pending], Mean Corpuscular Hemoglobin [Pending], Mean Corpuscular Hemoglobin Concent [Pending], Red Cell Distribution Width [Pending], Platelet Count [Pending], Mean Platelet Volume [ Pending], Neutrophils (%) (Auto) [Pending], Lymphocytes (%) (Auto) [Pending], Monocytes (%) (Auto) [Pending], Eosinophils (%) (Auto) [Pending], Basophils (%) (Auto) [Pending], Sodium Level 143, Potassium Level 3.4L, Chloride Level 103, Carbon Dioxide Level 35H, Anion Gap 5, Blood Urea Nitrogen 22H, Creatinine 0.8, Estimat Glomerular Filtration Rate > 60, Glucose Level 128H, Hemoglobin A1c [ Pending], Uric Acid 3.2, Calcium Level 8.9, Total Bilirubin 0.2, Aspartate Amino Transf (AST/SGOT) 10L, Alanine Aminotransferase (ALT/SGPT) 17, Alkaline Phosphatase 80, Pro-B-Type Natriuretic Peptide 343H, Total Protein 6.8, Albumin 2.7L, Globulin 4.1, Albumin/Globulin Ratio 0.7L, Thyroid Stimulating Hormone ( TSH) 0.452 Current Medications Medications (Trade) Dose Ordered Sig/Sera Route PRN Reason Start Time Stop Time Status Last Admin Dose Admin Acetaminophen/ Codeine Phosphate (Tylenol #3) 1 tab Q6H PRN ORAL For Pain 05/11/18 22:00 05/18/18 21:59 05/12/18 06:58 Amiodarone HCl (Cordarone) 200 mg DAILY ORAL 05/12/18 09:00 06/11/18 08:59 05/11/18 22:10 Anastrozole (Arimidex) 1 mg DAILY ORAL 05/12/18 09:00 06/11/18 08:59 Apixaban (Eliquis) 5 mg BID ORAL 05/12/18 09:00 06/11/18 08:59 Atorvastatin Calcium (Lipitor) 20 mg BEDTIME ORAL 05/11/18 21:00 06/10/18 20:59 05/11/18 22:10 Bacitracin (Bacitracin) 1 applic DAILY TOPIC 05/11/18 22:00 06/10/18 21:59 05/11/18 22:44 Dextrose (Dextrose 50%) 25 ml STAT PRN IV Hypoglycemia 05/11/18 19:00 06/10/18 18:59 Dextrose (Dextrose 50%) 50 ml STAT PRN IV Hypoglycemia 05/11/18 19:00 06/10/18 18:59 Diltiazem HCl (Cardizem CD) 120 mg DAILY ORAL 05/12/18 09:00 06/11/18 08:59 Fluticasone/ Vilanterol (Breo Ellipta 200/25) 1 puffs DAILY INH 05/12/18 09:00 06/11/18 08:59 Furosemide (Lasix) 40 mg DAILY ORAL 05/12/18 09:00 06/11/18 08:59 Hydralazine HCl (Apresoline) 25 mg EVERY 8 HOURS ORAL 05/11/18 22:00 06/10/18 21:59 05/12/18 06:25 Hydroxyzine HCl (Atarax) 50 mg Q8H PRN ORAL Itching 05/11/18 19:15 06/10/18 19:14 05/12/18 01:16 Insulin Aspart (NovoLOG) BEFORE MEALS AND HS SUBQ 05/11/18 21:00 06/10/18 20:59 05/12/18 06:26 Levalbuterol HCl (Xopenex) 1.25 mg TIDRT HHN 05/11/18 22:45 05/16/18 22:44 05/12/18 07:07 Metformin HCl (Glucophage) 850 mg TWICE A DAY ORAL 05/12/18 09:00 06/11/18 08:59 Methylprednisolone Sodium Succinate (Solu-MEDROL) 40 mg DAILY IVP 05/12/18 09:00 06/11/18 08:59 Montelukast Sodium (Singulair) 10 mg QPM ORAL 05/12/18 16:30 06/11/18 16:29 Neomycin/ Polymyxin/ Hydrocortisone (Cortisporin 1% Otic Soln) 4 drop THREE TIMES A DAY BOTH EARS 05/12/18 09:00 05/19/18 08:59 UNV Ondansetron HCl (Zofran) 4 mg Q6H PRN IVP Nausea & Vomiting 05/11/18 22:00 06/10/18 21:59 Pantoprazole (Protonix) 40 mg DAILY ORAL 05/12/18 09:00 06/11/18 08:59 Potassium Chloride (K-Dur) 10 meq DAILY ORAL 05/12/18 09:00 06/11/18 08:59 Sildenafil Citrate (Revatio) 20 mg TWICE A DAY ORAL 05/12/18 09:00 06/11/18 08:59 Froilan Caruso MD May 12, 2018 08:04
[2018-05-12] MEDS ORDERED: dilTIAZem HCl CD 120mg cap ORAL SCH (09:00)
[2018-05-12] MEDS: Amiodarone 200mg tab ORAL SCH (09:07)
[2018-05-12] MEDS: Revatio 20mg tab ORAL SCH ×2 (09:08→18:16)
[2018-05-12] MEDS: Eliquis 2.5mg tablet ORAL SCH ×2 (09:08→18:16)
[2018-05-12] MEDS: Furosemide 40mg tab ORAL SCH (09:09)
[2018-05-12] MEDS: Bacitracin Oint UD TOPIC SCH (09:09)
[2018-05-12] MEDS: Anastrazole 1mg tab ORAL SCH (09:09)
[2018-05-12] MEDS: Solu-MEDROL 40mg Inj IVP SCH (09:09)
[2018-05-12] MEDS: Breo Ellipta 200/25mcg-14 dose INH SCH (11:00)
[2018-05-12 12:00] VITALS: BP 128/78
--- NOTE | 2018-05-12 13:06 | Diagnostic Imaging Report ---
Indication: Dyspnea, chronic obstructive pulmonary disease Technique: CT chest was performed utilizing automated exposure control without intravenous contrast material. Axial and coronal images were generated. CT dose: Total DLP 922 mGycm; CTDI vol 28.2 mGy Comparison: chest radiograph 10/17/2017; CT of the chest 10/04/13. Findings: The exam due to motion artifact. Within these limitations: Emphysematous changes (likely centrilobular emphysema) are noted in the apices, right greater than left. High-resolution CT could provide better evaluation and can be obtained as clinically indicated. There is some right apical pleural scarring. There is some branching nodular densities in the inferior right lower lobe (example series 5 image #25) which may be infectious or inflammatory in etiology. Additional etiologies not excluded. There is linear scarring or atelectasis at the left base. There is no pleural effusion or pneumothorax. There is an unchanged right diaphragmatic hernia with herniation of fat into the right lower thorax. Heart is enlarged. There is hypoattenuation of the blood pool relative to the septum raising question for anemia. There are aortic valvular and mild coronary arterial calcifications. No significant pericardial effusion. Atherosclerotic calcifications noted in the normal caliber thoracic aorta. Thyroid is grossly unremarkable. No pathologically enlarged lymphadenopathy appreciated however evaluation is limited without contrast. Increased cyst in the upper pole of the left kidney. Otherwise imaged portions of the upper abdomen grossly unremarkable. Question prior right mastectomy. There are degenerative changes in the spine. No acute osseous identified. IMPRESSION: Evaluation limited by patient motion. Within these limitations: * Emphysematous changes pronounced in the bilateral upper lungs. * Few branching nodular densities in the anterior right lower lobe which may be infectious or inflammatory in etiology. Clinical correlation/follow-up recommended. * Stable cardiomegaly. Mild coronary arterial calcifications. * Findings consistent with anemia. Correlate with CBC. The CT scanner at [facility] is accredited by the [employer] and the scans are performed using protocols designed to limit radiation exposure to as low as reasonably achievable to attain images of sufficient resolution adequate for diagnostic evaluation.
[2018-05-12 16:00] VITALS: BP 120/77
[2018-05-12] MEDS: Montelukast 10mg tablet ORAL SCH (16:19)
--- NOTE | 2018-05-12 16:34 | Diagnostic Imaging Report ---
Indication: Ear pain Technique: CT maxillofacial was performed utilizing automated exposure control without intravenous contrast material. Axial and coronal images were generated. CT dose: Total DLP 556 mGycm; CTDI vol 28.3 mGy Comparison: No prior CT of the maxillofacial structures available for comparison. Correlation made to CT of the head 12/23/2013 Findings: Evaluation degraded by patient motion. This particularly limits images through the mandible and neck. These limitations: Patient is edentulous. No definite acute facial fracture is identified. Bony orbits are intact. No infiltration of conal fat bilaterally. Globes symmetric in appearance. There is opacification of the bilateral mastoid air cells, right greater than left. Findings suggest mastoiditis or mastoid effusion. This represents interval change from the prior head CT where mastoid air cells were more aerated. Mucosal thickening noted within some left-sided ethmoid air cells. There is some fullness in the soft tissues of the posterior nasopharynx (region of the adenoids/torus tubarius/fossa of Rosenmuller) which are poorly evaluated without IV contrast. There are atherosclerotic vascular calcifications, including intracranial vascular calcifications. Imaged portions of the brain grossly unremarkable. IMPRESSION: Limited exam due to patient motion, particularly degrading images through the lower face and neck. Within these limitations: * No definite acute facial fracture * Bilateral mastoid air cell opacification, right greater than left. Findings concerning for mastoiditis or mastoid effusion. Correlate clinically. * Mild left ethmoid sinus disease. * Some fullness in the soft tissues of the posterior nasopharynx (region of the adenoids/torus tubarius/fossa of Rosenmuller) which are poorly evaluated without IV contrast. Pathology in these areas not entirely excluded. The CT scanner at [facility] is accredited by the [employer] and the scans are performed using protocols designed to limit radiation exposure to as low as reasonably achievable to attain images of sufficient resolution adequate for diagnostic evaluation.
--- NOTE | 2018-05-12 17:12 | General Progress Note ---
Progress Note Progress Note ENT note S: Pt well known to me She was in my office on 05/08/18 and was to get CT scan mastoids-done today in hospital Audiogram at [facility] [phone]-not done yet O: Ear canals look better CT mastoids-interval change for the worse neck-no masses Face-no abscess A; Bilateral mastoiditis in poorly controlled diabetic. P: Suggest ID see pt-use Ciprofloxin as IV antibiotic of choice. I will not be available to see this pt starting Friday until 06/08/2018 Pt is aware, I will let PMD know. Once released from hospital, pt may see Dr. Jordy Sanchez or Kamla Vela. They are not on staff to see pt as inpt. Consider CT mastoids in 2 weeks to check progress. Rico Buckner MD May 12, 2018 17:12
[2018-05-12 20:00] VITALS: BP 155/79
[2018-05-12] MEDS: Atorvastatin 20mg tab ORAL SCH (21:02)
[2018-05-12] MEDS: Promethazine/DM 6.25mg/5ml ORAL PRN (22:20)
[2018-05-13] VITALS: BP 146/81
[2018-05-13] MEDS: Tylenol #3 tab (300mg/30mg) ORAL PRN ×3 (03:07→23:16)
[2018-05-13 04:00] VITALS: BP 139/69
--- NOTE | 2018-05-13 05:15 | Progress Note ---
DATE: 05/12/2018 CARDIOLOGY AND INTERNAL MEDICINE PROGRESS NOTE SUBJECTIVE: The patient still has shortness of breath, pain over her left chest wall and upper extremity, ear congestion and discomfort. The patient had CT scan today with worsening mastoiditis noted, some pulmonary nodularity is noted which is nonspecific and will require followup scanning. OBJECTIVE: VITAL SIGNS: Blood pressure 155/79, pulse 90, respiratory rate 20, afebrile. Monitor, sinus and sinus tachycardia. LUNGS: Diminished breath sounds. Few rhonchi. HEART: Regular rhythm and rate. Normal S1, S2 with a fourth heart sound. ABDOMEN: Obese. EXTREMITIES: Trace edema. IMPRESSION: 1. COPD exacerbation. 2. Acute mastoiditis. 3. Sleep apnea. 4. Breast cancer. 5. Abrasion, left shoulder. 6. Hypertensive heart disease with chronic diastolic congestive heart failure. PLAN: 1. Steroid titrate with taper. 2. IV antimicrobials. 3. Bronchodilators. 4. BiPAP support. 5. Optimize antihypertensive and cardiovascular regimen. Werner Martinez M.D. DR: Mauro JOB#: [id number] CC:
[2018-05-13] MEDS: HydrALAZINE 25mg tab ORAL SCH ×3 (06:00→22:36)
[2018-05-13] MEDS: NovoLOG Insulin Flexpen SUBQ SCH ×4 (06:30→22:39)
[2018-05-13] MEDS: Levalbuterol Inh UD 1.25mg/0.5ml HHN SCH ×3 (07:34→20:16)
[2018-05-13 08:00] VITALS: BP 134/69
[2018-05-13] MEDS: Breo Ellipta 200/25mcg-14 dose INH SCH (08:47)
[2018-05-13] MEDS: Revatio 20mg tab ORAL SCH ×2 (09:01→17:26)
[2018-05-13] MEDS: Anastrazole 1mg tab ORAL SCH (09:01)
[2018-05-13] MEDS: Bacitracin Oint UD TOPIC SCH (09:03)
[2018-05-13] MEDS: dilTIAZem HCl CD 180mg cap ORAL SCH (09:03)
[2018-05-13] MEDS: Furosemide 40mg tab ORAL SCH (09:03)
[2018-05-13] MEDS: Solu-MEDROL 40mg Inj IVP SCH (09:04)
[2018-05-13] MEDS: Eliquis 2.5mg tablet ORAL SCH ×2 (09:07→17:25)
[2018-05-13] MEDS ORDERED: LORazepam 1mg tab ORAL PRN (11:30)
[2018-05-13 12:00] VITALS: BP 142/66
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
[2018-05-13 16:00] VITALS: BP 101/80
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
[2018-05-13] MEDS: Montelukast 10mg tablet ORAL SCH (17:22)
--- NOTE | 2018-05-13 17:31 | Infectious Diseases Prog Note ---
Assessment/Plan Assessment/Plan left arm wound infection/cellulitis bilateral mastoiditis ? cap, uri/bronchitis copd, steroids, leukocytosis continue cipro and vancomycin wound care f/u labs, cultures, chest x-ray ENT evaluation - ? topical abx for mastoiditis thank you Subjective Allergies: Coded Allergies: AMOXICILLIN (Verified Allergy, Mild, RASH HIVES, 09/29/13) ERYTHROMYCIN BASE (Unverified Allergy, Unknown, 10/13/17) IODINE (Verified Allergy, Unknown, 09/29/13) PENICILLINS (Verified Allergy, Unknown, RASH HIVES, 09/29/13) Objective Vital Signs Last 24 Hour Vital Signs Date Time Temp Pulse Resp B/P (MAP) Pulse Ox O2 Delivery O2 Flow Rate FiO2 05/13/18 16:00 91 05/13/18 13:41 142/66 05/13/18 13:26 93 18 97 Nasal Cannula 3.0 32 05/13/18 13:24 93 20 91 Nasal Cannula 3.0 32 05/13/18 12:00 98.2 94 20 142/66 (91) 99 98.2 05/13/18 12:00 96 05/13/18 10:00 97.0 05/13/18 09:03 103 134/69 05/13/18 09:00 Nasal Cannula 3.0 05/13/18 08:00 102 05/13/18 08:00 97.0 69 20 134/69 (90) 99 97.0 103 05/13/18 07:39 97 18 98 Nasal Cannula 3.0 32 05/13/18 07:34 101 20 97 Nasal Cannula 3.0 32 05/13/18 07:29 Nasal Cannula 3.0 32 05/13/18 07:29 97 Nasal Cannula 3.0 32 05/13/18 06:00 139/69 05/13/18 05:15 90 20 95 Facial 30 05/13/18 04:00 99 05/13/18 04:00 96 139/69 (92) 05/13/18 03:25 92 22 96 Facial 30 05/13/18 00:30 88 16 95 3.0 32 05/13/18 00:00 90 05/13/18 00:00 98.0 103 20 146/81 (102) 95 98.0 05/12/18 21:46 155/79 05/12/18 21:00 Nasal Cannula 3.0 7/31/18 20:00 98.0 99 20 155/79 (104) 94 98.0 05/12/18 20:00 94 05/12/18 19:57 94 Nasal Cannula 3.0 32 05/12/18 19:33 95 18 95 Nasal Cannula 3.0 32 05/12/18 19:32 Nasal Cannula 3.0 32 05/12/18 19:32 96 20 94 Nasal Cannula 3.0 32 Height (Feet): 5 Height (Inches): 1.00 Weight (Pounds): 224 Current Medications Medications (Trade) Dose Ordered Sig/Sera Route PRN Reason Start Time Stop Time Status Last Admin Dose Admin Acetaminophen/ Codeine Phosphate (Tylenol #3) 1 tab Q6H PRN ORAL For Pain 05/11/18 22:00 05/18/18 21:59 05/13/18 09:01 Amiodarone HCl (Cordarone) 200 mg DAILY ORAL 05/12/18 09:00 06/11/18 08:59 05/12/18 09:07 Anastrozole (Arimidex) 1 mg DAILY ORAL 05/12/18 09:00 06/11/18 08:59 05/13/18 09:01 Apixaban (Eliquis) 5 mg BID ORAL 05/12/18 09:00 06/11/18 08:59 05/13/18 09:07 Atorvastatin Calcium (Lipitor) 20 mg BEDTIME ORAL 05/11/18 21:00 06/10/18 20:59 05/12/18 21:02 Bacitracin (Bacitracin) 1 applic DAILY TOPIC 05/11/18 22:00 06/10/18 21:59 05/13/18 09:03 Ciprofloxacin 200 ml @ 200 mls/hr Q12HR IV 05/13/18 02:15 05/20/18 02:14 05/13/18 09:04 Cyclobenzaprine HCl (Flexeril) 10 mg Q6H PRN ORAL Muscle Spasm 05/13/18 18:00 06/12/18 17:59 Dextrose (Dextrose 50%) 25 ml STAT PRN IV Hypoglycemia 05/11/18 19:00 06/10/18 18:59 Dextrose (Dextrose 50%) 50 ml STAT PRN IV Hypoglycemia 05/11/18 19:00 06/10/18 18:59 Diltiazem HCl (Cardizem CD) 180 mg DAILY ORAL 05/13/18 09:00 06/12/18 08:59 05/13/18 09:03 Fluticasone Propionate (Flonase) 1 spray Q12HR NASAL 05/13/18 21:00 06/12/18 20:59 Fluticasone/ Vilanterol (Breo Ellipta 200/25) 1 puffs DAILY INH 05/12/18 09:00 06/11/18 08:59 05/13/18 08:47 Furosemide (Lasix) 40 mg DAILY ORAL 05/12/18 09:00 06/11/18 08:59 05/13/18 09:03 Hydralazine HCl (Apresoline) 25 mg EVERY 8 HOURS ORAL 05/11/18 22:00 06/10/18 21:59 05/13/18 13:41 Hydroxyzine HCl (Atarax) 50 mg Q8H PRN ORAL Itching 05/11/18 19:15 06/10/18 19:14 05/12/18 22:20 Insulin Aspart (NovoLOG) BEFORE MEALS AND HS SUBQ 05/11/18 21:00 06/10/18 20:59 05/13/18 11:52 Levalbuterol HCl (Xopenex) 1.25 mg TIDRT HHN 05/11/18 22:45 05/16/18 22:44 05/13/18 13:22 Lidocaine (Xylocaine 5% cream) 1 applic DAILY PRN TOPIC knee pain 05/12/18 14:00 06/11/18 13:59 05/13/18 13:42 Lorazepam (Ativan) 2 mg Q6H PRN ORAL For Anxiety 05/13/18 11:30 05/20/18 11:29 Metformin HCl (Glucophage) 850 mg TWICE A DAY ORAL 05/12/18 09:00 06/11/18 08:59 05/13/18 09:01 Methylprednisolone Sodium Succinate (Solu-MEDROL) 40 mg DAILY IVP 05/12/18 09:00 06/11/18 08:59 05/13/18 09:04 Montelukast Sodium (Singulair) 10 mg QPM ORAL 05/12/18 16:30 06/11/18 16:29 05/12/18 16:19 Neomycin/ Polymyxin/ Hydrocortisone (Cortisporin 1% Otic Soln) 4 drop THREE TIMES A DAY BOTH EARS 05/12/18 09:00 05/19/18 08:59 05/13/18 13:42 Non-Formulary Medication (Non-Formulary Med) 1 ea TID BOTH EYES 05/13/18 21:00 06/12/18 20:59 UNV Ondansetron HCl (Zofran) 4 mg Q6H PRN IVP Nausea & Vomiting 05/11/18 22:00 06/10/18 21:59 05/13/18 07:25 Pantoprazole (Protonix) 40 mg DAILY ORAL 05/12/18 09:00 06/11/18 08:59 05/13/18 09:01 Potassium Chloride (K-Dur) 10 meq DAILY ORAL 05/12/18 09:00 06/11/18 08:59 05/13/18 09:03 Promethazine HCl/ Dextromethorphan (Phenergan DM) 6.25 mg Q6H PRN ORAL For Cough 05/12/18 14:00 06/11/18 13:59 05/12/18 22:20 Sildenafil Citrate (Revatio) 20 mg TWICE A DAY ORAL 05/12/18 09:00 06/11/18 08:59 05/13/18 09:01 Darlin Mcmillan MD May 13, 2018 17:31
[2018-05-13] MEDS: Vancomycin 750mg/NS 250ml IVPB SCH (17:49)
[2018-05-13] MEDS: Naphazoline 0.03% Opth Soln 15ml BOTH EYES SCH (18:22)
[2018-05-13] MEDS: Flonase Nasal Inhaler 16gm NASAL SCH (18:31)
[2018-05-13 20:00] VITALS: BP 147/64
[2018-05-13] MEDS ORDERED: Flonase Nasal Inhaler 16gm NASAL SCH (21:00)
[2018-05-13] MEDS: Miconazole Vag Cr 45gm Tube (100mg per applicator) VAGIN SCH (22:35)
[2018-05-13] MEDS: Zinc Oxide Oint 2oz TOPIC SCH (22:36)
[2018-05-13] MEDS: Atorvastatin 20mg tab ORAL SCH (22:36)
[2018-05-13] MEDS: Ocean Nasal Spray 45ml NASAL SCH (22:36)
--- NOTE | 2018-05-13 22:45 | Consultation ---
DATE OF CONSULTATION: 05/13/2018 INFECTIOUS DISEASE CONSULTATION CONSULTING PHYSICIAN: Darlin Mcmillan M.D. ATTENDING PHYSICIAN: Werner Martinez M.D. REFERRING PHYSICIAN: Werner Martinez M.D. REASON FOR CONSULTATION: Mastoiditis and also possible left arm wound infection, possible respiratory infection. CHIEF COMPLAINT: The patient's chief complaint coming in to the hospital is chronic obstructive pulmonary disease exacerbation and left arm cellulitis. HISTORY OF PRESENT ILLNESS: This is a very pleasant 58-year-old female, with history of chronic ear infections bilaterally. The patient presents to [facility] with respiratory insufficiency and chronic obstructive pulmonary disease exacerbation. The patient had a CT scan of the chest, which showed emphysematous changes with evidence of nodular densities, which may be infectious. Chest x-ray has been ordered for tomorrow and sputum culture also has been ordered. Maxillofacial CT showed findings suspicious or concerning for mastoiditis. The patient is on Cipro, I am adding vancomycin. Infectious Disease consultation was requested for antibiotic management. Of note, the patient also has left arm wounds and cellulitis and a wound culture was ordered. MAR was noted. Orders were noted. Notes and records were reviewed. Case was discussed with RN and the patient. PAST MEDICAL HISTORY: The patient has a past medical history of the following. The patient has a past medical history of what sounds like chronic ear infections where she sees Dr. Rico Buckner in an outside setting. She has history of hypertension, history of venous insufficiency, history diastolic heart failure, history of pulmonary hypertension, chronic obstructive pulmonary disease, sleep apnea, history of diabetes, hyperlipidemia, history of peripheral neuropathy, breast cancer, chronic kidney disease, arthrosis, peripheral artery disease, and paroxysmal atrial fibrillation. She has history of nicotine dependency and CO2 retention. MEDICATIONS: Upon reviewing the MAR, she is on the following medications. She is on Flexeril, Ativan, Cardizem, diltiazem, and ciprofloxacin. She is on montelukast. I put her on vancomycin and lidocaine. She is on Arimidex, Eliquis, and Protonix. She is on Lasix. She is on metformin. She is on K-Dur. She is on amiodarone. She is on Revatio, methylprednisolone, neomycin, Xopenex, hydralazine, Zofran, bacitracin, acetaminophen, Lipitor, NovoLog insulin, Atarax, IV fluids, potassium, and metformin. Antibiotics, vancomycin, Cipro, and Phenergan. Outside medications were noted and reconciliated. ALLERGIES: Include penicillin, iodine, and erythromycin. FAMILY HISTORY: Positive for breast cancer in the siblings. SOCIAL HISTORY: Positive for smoking. No alcohol or drug abuse. No substance abuse currently. REVIEW OF SYSTEMS: CONSTITUTIONAL: She has currently no fever or chills. She has no weight loss or night sweats. She has generalized fatigue. No focal weakness. HEAD AND NECK: No head pain or neck pain. No thrush, dysphagia, or sinus tenderness. No change in vision. No neck stiffness. CARDIAC: No chest pain or palpitations. No pressors. GASTROINTESTINAL: No nausea, vomiting, or diarrhea. No abdominal pain. GENITOURINARY: No dysuria or frequency. PULMONARY: She came in with congestion, shortness of breath, and some sputum. SKIN: No rash or itching. EXTREMITIES: No extremity pain. NEUROLOGIC: No seizures. She has bilateral ear pain that is chronic. No seizures, rash, or itching. No CVA tenderness. No Lee. No central line. She came in with congestion, shortness of breath, hypoxia, and sputum production. PHYSICAL EXAMINATION: VITAL SIGNS: Temperature is 98.2, pulse rate is 94, respiratory rate 20, blood pressure 142/66, and saturation 99%. GENERAL: Weak, but responsive. Mild shortness of breath noted, but alert and oriented x3. HEAD AND NECK: Oral exam, no thrush. Eye exam, no icterus. NECK: Supple. No JVD. Normocephalic. No facial droop. No neck stiffness. No sinus tenderness. I do not have an otoscope to look in her ears. HEART: Regular. No obvious gallop or murmur. No friction rub. ABDOMEN: Soft. Positive bowel sounds. Nontender. No organomegaly. LUNGS: Bilateral rhonchi. No definite rales. EXTREMITIES: She has left arm infected wound and cellulitis. Some slough noted. Warmth and redness and cellulitis. Wound culture was ordered also for that. SKIN: No rash. MUSCULOSKELETAL: No effusion. Legs are without cellulitis. PERIPHERAL VASCULAR: No cyanosis or gangrene. GENITOURINARY: No Lee. No CVA tenderness. LINES: Line sites without phlebitis. NEUROLOGIC: Generalized weakness and responsive. Alert and oriented x3. Nonfocal. LABORATORY AND DIAGNOSTIC DATA: Laboratory data is as follows. Creatinine is 0.8. LFTs were noted. White count 13.7 and hemoglobin 9.3. UA, C and S and sputum culture have been ordered. IMAGING STUDIES: CT scan of the chest is concerning for possible right lower lobe infectious or inflammatory process. Emphysematous changes were noted on CT scan of the chest. Maxillofacial CT scan showed findings concerning for bilateral mastoiditis, right greater than left. Report was noted. ASSESSMENT AND PLAN: 1. The patient has left arm wound infection and cellulitis. The patient has bilateral mastoiditis likely chronic based on history of ear infections. The patient has possible community-acquired pneumonia versus upper respiratory infection and bronchitis. The patient has elevated white count. At this time, I agree with Cipro and I will add vancomycin. Most common cause of mastoiditis is Staph aureus and Pseudomonas. The patient will also get followup chest x-ray and sputum culture. With regards to her wound, we will get wound culture. Continue vancomycin and Cipro for the cellulitis and infected wound. Check followup chest x-ray. Check laboratories. I would also get ENT evaluation to treat the mastoiditis because it often could be treated with topical antibiotics such as fluoroquinolones, which actually has a perforated treatment modality. She does have a ENT doctor, Dr. Buckner that she is following in the outpatient setting. Continue vancomycin and Cipro pending workup for the left arm cellulitis and infected wound, mastoiditis, possible pneumonia, and respiratory infection. Watch for creatinine. Watch white cell count. 2. The patient has chronic obstructive pulmonary disease exacerbation. Continue treatment per Pulmonary medicine. She is on steroids also. Continue breathing treatments. 3. Hypertension. 4. Diabetes. 5. Blood sugar and blood pressure treatment per Dr. Martinez. 6. Hyperlipidemia. 7. Chronic obstructive pulmonary disease. 8. sob 9. Sleep apnea. 10. CO2 retention. 11. Diastolic dysfunction and heart failure. 12. Breast cancer. 13. Peripheral neuropathy. 14. Peripheral artery disease. 15. Paroxysmal atrial fibrillation. 16. Socially positive for smoking. 17. Family history is positive for cancer. 18. Allergies to penicillin, iodine, and erythromycin. 19. MAR was noted. 20. Case was discussed with RN. 21. Continue treatment per primary consultants. 22. Notes and records were noted. Darlin Mcmillan M.D. DR: YANCY JOB#: [id number] CC: SENTHIL
[2018-05-13] MEDS: Promethazine/DM 6.25mg/5ml ORAL PRN (23:14)
[2018-05-13] MEDS: Cyclobenzaprine 10mg Tab ORAL PRN (23:15)
[2018-05-14] VITALS: BP 139/68
--- NOTE | 2018-05-14 | Progress Note ---
DATE: 05/13/2018 SUBJECTIVE: The patient has multiple complaints including burning of her eyes after drops were put ____ instead of her ears. She has vaginal itching due to what she feels is an early yeast infection. She still has pain in her chest and extremities. OBJECTIVE: VITAL SIGNS: Blood pressure 147/64, pulse 98, respiratory rate 24, and afebrile. LUNGS: With diminished breath sounds. No wheezing. CARDIAC: Regular rhythm and rate. Normal S1 and S2 with a fourth heart sound. ABDOMEN: Obese. There is a ventral hernia. EXTREMITIES: With trace edema. LABORATORY DATA: No new laboratories. IMPRESSION AND PLAN: 1. Acute mastoiditis, moniliasis. 2. Hypokalemia. 3. Insulin-requiring diabetes mellitus. 4. Moderate protein-calorie malnutrition. 5. Anemia of chronic disease. 6. Chronic obstructive pulmonary disease exacerbation. 7. Left upper extremity cellulitis, therapy in place. 8. Antimicrobials. 9. Respiratory hygiene. 10. Antifungal, skin care. 11. DVT prophylaxis. 12. Replace potassium. 13. Check magnesium. 14. Protein supplement. Werner Martinez M.D. DR: DELMA JOB#: [id number] CC:
[2018-05-14 01:17] LABS: APPEARANCE,URINE CLEAR; BILIRUBIN, URINE NEGATIVE (NEGATIVE); COLOR,URINE PALE YELLOW; GLUCOSE, URINE (UA) NEGATIVE (NEGATIVE); KETONES,URINE NEGATIVE (NEGATIVE); LEUKOCYTE ESTERASE ,URINE 1+ (NEGATIVE); NITRITE,URINE POSITIVE (NEGATIVE); PH,URINE 6 (4.5-8.0); PROTEIN,URINE 1+ (NEGATIVE); UROBILINOGEN,URINE NORMAL MG/DL (0.0-1.0)
[2018-05-14 04:00] VITALS: BP 157/74
[2018-05-14] MEDS: Lactobacillus-GG tablet ORAL SCH ×3 (04:56→17:46)
[2018-05-14 05:35] LABS: BASOPHILS % (AUTO) 0.4 % (0.0-2.0); EOSINOPHILS % (AUTO) 0.2 % (0.0-3.0); HEMATOCRIT 28.1 % (37.0-47.0); HEMOGLOBIN 8.8 G/DL (12.0-16.0); LYMPHOCYTES % (AUTO) 19.8 % (20.0-45.0); MEAN CORPUSCULAR VOLUME 90 FL (80-99); MONOCYTES % (AUTO) 8.4 % (1.0-10.0); NEUTROPHILS % (AUTO) 71.2 % (45.0-75.0); PLATELET COUNT 373 K/UL (150-450); RED BLOOD COUNT 3.13 M/UL (4.20-5.40); RED CELL DISTRIBUTION WIDTH 13.4 % (11.6-14.8); WHITE BLOOD COUNT 13.5 K/UL (4.8-10.8)
[2018-05-14 06:04] LABS: ANION GAP 3 mmol/L (5-15); BLOOD UREA NITROGEN 20 mg/dL (7-18); CALCIUM 8.4 MG/DL (8.5-10.1); CARBON DIOXIDE 38 MMOL/L (21-32); CHLORIDE 101 MMOL/L (98-107); CREATININE 0.8 MG/DL (0.55-1.30); POTASSIUM 3.5 MMOL/L (3.5-5.1); SODIUM 142 MMOL/L (136-145)
[2018-05-14] MEDS: HydrALAZINE 25mg tab ORAL SCH ×3 (06:23→22:10)
[2018-05-14] MEDS: Vancomycin 750mg/NS 250ml IVPB SCH ×2 (06:23→17:42)
[2018-05-14] MEDS: NovoLOG Insulin Flexpen SUBQ SCH ×4 (06:24→20:57)
[2018-05-14 08:00] VITALS: BP 146/80
[2018-05-14] MEDS: Levalbuterol Inh UD 1.25mg/0.5ml HHN SCH ×3 (08:25→19:23)
--- NOTE | 2018-05-14 08:34 | Pulmonology Progress Note ---
Assessment/Plan Assessment/Plan COPD respiratory failure JUAN JOSE emphysema breast CA CHF PLAN dc steroids monitor oxygen BIPAP respiratory care as is follow up for change impression, plan, and exam edited and reviewed in detail care discussed with RN Subjective Allergies: Coded Allergies: AMOXICILLIN (Verified Allergy, Mild, RASH HIVES, 09/29/13) ERYTHROMYCIN BASE (Unverified Allergy, Unknown, 10/13/17) IODINE (Verified Allergy, Unknown, 09/29/13) PENICILLINS (Verified Allergy, Unknown, RASH HIVES, 09/29/13) Subjective CT chest noted and reviewed on oxygen Objective Last 24 Hour Vital Signs Date Time Temp Pulse Resp B/P (MAP) Pulse Ox O2 Delivery O2 Flow Rate FiO2 05/14/18 06:23 157/74 05/14/18 04:00 96 05/14/18 04:00 98.2 101 24 157/74 (101) 94 98.2 05/14/18 03:36 95 21 98 Facial 30 05/14/18 01:46 95 20 97 Facial 30 05/14/18 00:00 92 05/14/18 00:00 98.0 101 24 139/68 (91) 97 98.0 05/13/18 22:36 147/64 05/13/18 21:00 Nasal Cannula 3.0 05/13/18 20:26 101 18 98 Nasal Cannula 3.0 32 05/13/18 20:16 Nasal Cannula 3.0 32 05/13/18 20:16 97 Nasal Cannula 3.0 32 05/13/18 20:16 94 20 97 Nasal Cannula 3.0 32 05/13/18 20:00 98.2 98 24 147/64 (91) 99 98.2 05/13/18 20:00 96 05/13/18 16:00 97.7 93 20 101/80 (87) 95 97.7 05/13/18 16:00 91 05/13/18 13:41 142/66 05/13/18 13:26 93 18 97 Nasal Cannula 3.0 32 05/13/18 13:24 93 20 91 Nasal Cannula 3.0 32 05/13/18 12:00 98.2 94 20 142/66 (91) 99 98.2 05/13/18 12:00 96 05/13/18 10:00 97.0 05/13/18 09:03 103 134/69 05/13/18 09:00 Nasal Cannula 3.0 Intake and Output 05/13/18 05/14/18 19:00 07:00 Intake Total 840 ml Balance 840 ml Intake Oral 840 ml # Voids 2 5 Objective WDWN NAD reduced breath sounds bilaterally without rhonchi or wheeze [id number] without MRG NABS nontender no HSM no CCE nonfocal Laboratory Tests 05/14/18 00:30: Urine Color Pale yellow, Urine Appearance Clear, Urine pH 6, Urine Specific [place] 1.015, Urine Protein 1+H, Urine Glucose (UA) Negative, Urine Ketones Negative, Urine Occult Blood Negative, Urine Nitrite PositiveH, Urine Bilirubin Negative, Urine Urobilinogen Normal, Urine Leukocyte Esterase 1+H, Urine RBC 0-2 , Urine WBC 5-10H, Urine Squamous Epithelial Cells Few, Urine Bacteria None 05/14/18 04:55: White Blood Count 13.5H, Red Blood Count 3.13L, Hemoglobin 8.8L, Hematocrit 28.1L, Mean Corpuscular Volume 90, Mean Corpuscular Hemoglobin 28.2, Mean Corpuscular Hemoglobin Concent 31.4L, Red Cell Distribution Width 13.4, Platelet Count 373, Mean Platelet Volume 6.9, Neutrophils (%) (Auto) 71.2, Lymphocytes (%) (Auto) 19.8L, Monocytes (%) (Auto) 8.4, Eosinophils (%) (Auto) 0.2, Basophils (%) (Auto) 0.4, Sodium Level 142, Potassium Level 3.5, Chloride Level 101, Carbon Dioxide Level 38H, Anion Gap 3L, Blood Urea Nitrogen 20H, Creatinine 0.8, Estimat Glomerular Filtration Rate > 60, Glucose Level 137H, Calcium Level 8.4L, Magnesium Level 1.2L, Pro-B-Type Natriuretic Peptide 211H Current Medications Medications (Trade) Dose Ordered Sig/Sera Route PRN Reason Start Time Stop Time Status Last Admin Dose Admin Acetaminophen/ Codeine Phosphate (Tylenol #3) 1 tab Q6H PRN ORAL For Pain 05/11/18 22:00 05/18/18 21:59 05/13/18 23:16 Amiodarone HCl (Cordarone) 200 mg DAILY ORAL 05/12/18 09:00 06/11/18 08:59 05/12/18 09:07 Anastrozole (Arimidex) 1 mg DAILY ORAL 05/12/18 09:00 06/11/18 08:59 05/13/18 09:01 Apixaban (Eliquis) 5 mg BID ORAL 05/12/18 09:00 06/11/18 08:59 05/13/18 17:25 Atorvastatin Calcium (Lipitor) 20 mg BEDTIME ORAL 05/11/18 21:00 06/10/18 20:59 05/13/18 22:36 Bacitracin (Bacitracin) 1 applic DAILY TOPIC 05/11/18 22:00 06/10/18 21:59 05/13/18 09:03 Ciprofloxacin 200 ml @ 200 mls/hr Q12HR IV 05/13/18 02:15 05/20/18 02:14 05/13/18 22:36 Cyclobenzaprine HCl (Flexeril) 10 mg Q6H PRN ORAL Muscle Spasm 05/13/18 18:00 06/12/18 17:59 05/13/18 23:15 Dextrose (Dextrose 50%) 25 ml STAT PRN IV Hypoglycemia 05/11/18 19:00 06/10/18 18:59 Dextrose (Dextrose 50%) 50 ml STAT PRN IV Hypoglycemia 05/11/18 19:00 06/10/18 18:59 Diltiazem HCl (Cardizem CD) 180 mg DAILY ORAL 05/13/18 09:00 06/12/18 08:59 05/13/18 09:03 Fluticasone Propionate (Flonase) 1 spray Q12HR NASAL 05/13/18 19:00 06/12/18 18:59 05/13/18 18:31 Fluticasone/ Vilanterol (Breo Ellipta 200/25) 1 puffs DAILY INH 05/12/18 09:00 06/11/18 08:59 05/13/18 08:47 Furosemide (Lasix) 40 mg DAILY ORAL 05/12/18 09:00 06/11/18 08:59 05/13/18 09:03 Hydralazine HCl (Apresoline) 25 mg EVERY 8 HOURS ORAL 05/11/18 22:00 06/10/18 21:59 05/14/18 06:23 Hydroxyzine HCl (Atarax) 50 mg Q8H PRN ORAL Itching 05/11/18 19:15 8/29/18 19:14 05/12/18 22:20 Insulin Aspart (NovoLOG) BEFORE MEALS AND HS SUBQ 05/11/18 21:00 06/10/18 20:59 05/14/18 06:24 Lactobacillus Acidophilus (Culturelle) 1 tab TIAC ORAL 05/14/18 05:00 06/13/18 04:59 05/14/18 04:56 Levalbuterol HCl (Xopenex) 1.25 mg TIDRT HHN 05/11/18 22:45 05/16/18 22:44 05/13/18 20:16 Lidocaine (Xylocaine 5% cream) 1 applic DAILY PRN TOPIC knee pain 05/12/18 14:00 06/11/18 13:59 05/14/18 01:01 Lorazepam (Ativan) 2 mg Q6H PRN ORAL For Anxiety 05/13/18 11:30 05/20/18 11:29 Metformin HCl (Glucophage) 850 mg TWICE A DAY ORAL 05/12/18 09:00 06/11/18 08:59 05/13/18 17:25 Methylprednisolone Sodium Succinate (Solu-MEDROL) 40 mg DAILY IVP 05/12/18 09:00 06/11/18 08:59 05/13/18 09:04 Miconazole Nitrate (Monistat) 1 applic BEDTIME VAGIN 05/13/18 22:30 06/12/18 22:29 05/13/18 22:35 Montelukast Sodium (Singulair) 10 mg QPM ORAL 05/12/18 16:30 06/11/18 16:29 05/13/18 17:22 Naphazoline HCl (Vasocon) 1 drop TID BOTH EYES 05/13/18 19:00 06/12/18 18:59 05/13/18 18:22 Neomycin/ Polymyxin/ Hydrocortisone (Cortisporin 1% Otic Soln) 4 drop THREE TIMES A DAY BOTH EARS 05/12/18 09:00 05/19/18 08:59 05/13/18 17:49 Ondansetron HCl (Zofran) 4 mg Q6H PRN IVP Nausea & Vomiting 05/11/18 22:00 06/10/18 21:59 05/13/18 23:15 Pantoprazole (Protonix) 40 mg ACBREAKFAST ORAL 05/14/18 07:00 06/13/18 06:59 05/14/18 06:50 Potassium Chloride (K-Dur) 10 meq DAILY ORAL 05/12/18 09:00 06/11/18 08:59 05/13/18 09:03 Promethazine HCl/ Dextromethorphan (Phenergan DM) 6.25 mg Q6H PRN ORAL For Cough 05/12/18 14:00 06/11/18 13:59 05/13/18 23:14 Sertraline HCl (Zoloft) 100 mg DAILY ORAL 05/14/18 09:00 06/13/18 08:59 Sildenafil Citrate (Revatio) 20 mg TWICE A DAY ORAL 05/12/18 09:00 06/11/18 08:59 05/13/18 17:26 Sodium Chloride ([place] Nasal [place]) 1 spray TID NASAL 05/13/18 22:30 06/12/18 22:29 05/13/18 22:36 Vancomycin HCl (Vanco rx to dose) 1 ea DAILY PRN MISC Per rx protocol 05/13/18 17:15 06/12/18 17:14 Vancomycin/Sodium Chloride 250 ml @ 166.667 mls/hr Q12H IVPB 05/13/18 18:00 05/18/18 17:59 05/14/18 06:23 Zinc Oxide (Zinc Oxide) 1 applic BID TOPIC 05/13/18 22:30 06/12/18 22:29 05/13/18 22:36 Froilan Caruso MD May 14, 2018 08:34
[2018-05-14] MEDS: Flonase Nasal Inhaler 16gm NASAL SCH ×2 (09:00→21:00)
[2018-05-14] MEDS: Zinc Oxide Oint 2oz TOPIC SCH ×2 (09:00→17:49)
[2018-05-14] MEDS: Bacitracin Oint UD TOPIC SCH ×2 (09:00→10:26)
[2018-05-14] MEDS: Eliquis 2.5mg tablet ORAL SCH ×2 (09:42→17:45)
[2018-05-14] MEDS: Revatio 20mg tab ORAL SCH ×2 (09:42→17:43)
[2018-05-14] MEDS: Sertraline 100mg tab ORAL SCH (09:42)
[2018-05-14] MEDS: Anastrazole 1mg tab ORAL SCH (09:43)
[2018-05-14] MEDS: Furosemide 40mg tab ORAL SCH (09:43)
[2018-05-14] MEDS: Amiodarone 200mg tab ORAL SCH (09:43)
[2018-05-14] MEDS: Naphazoline 0.03% Opth Soln 15ml BOTH EYES SCH ×3 (09:44→17:48)
[2018-05-14] MEDS: Ocean Nasal Spray 45ml NASAL SCH ×3 (09:45→17:48)
[2018-05-14] MEDS: dilTIAZem HCl CD 180mg cap ORAL SCH (09:53)
[2018-05-14] MEDS: Promethazine/DM 6.25mg/5ml ORAL PRN ×2 (10:02→22:09)
[2018-05-14] MEDS: HydrOXYzine 50mg tab ORAL PRN ×3 (10:02→22:12)
--- NOTE | 2018-05-14 10:32 | Diagnostic Imaging Report ---
Indication: Dyspnea Technique: Portable AP view of the chest Comparison: 10/17/2017 Findings: Stable cardiomegaly. There is pulmonary vascular congestion/mild interstitial edema. Limited evaluation of the retrocardiac lung due to overlying breast soft tissues and underpenetration, possibly related to patient body habitus. Pathology in these regions not excluded. A rounded mass at the right base corresponds with the Bochdalek hernia noted on CT. No definite pneumothorax appreciated. There are degenerative changes in the spine. IMPRESSION: Cardiomegaly with interstitial opacification/edema. Limited evaluation of the retrocardiac left lower lung due to positioning and overlying breast soft tissue. Pathology in this area not excludable.
[2018-05-14] MEDS: Breo Ellipta 200/25mcg-14 dose INH SCH (11:05)
[2018-05-14 12:00] VITALS: BP 137/67
[2018-05-14] MEDS: Solu-MEDROL 40mg Inj IVP SCH (12:11)
--- NOTE | 2018-05-14 12:30 | General Progress Note ---
Subjective Allergies: Coded Allergies: AMOXICILLIN (Verified Allergy, Mild, RASH HIVES, 09/29/13) ERYTHROMYCIN BASE (Unverified Allergy, Unknown, 10/13/17) IODINE (Verified Allergy, Unknown, 09/29/13) PENICILLINS (Verified Allergy, Unknown, RASH HIVES, 09/29/13) Objective Last 24 Hour Vital Signs Date Time Temp Pulse Resp B/P (MAP) Pulse Ox O2 Delivery O2 Flow Rate FiO2 05/14/18 09:53 95 146/80 05/14/18 09:00 Nasal Cannula 3.0 05/14/18 08:27 Nasal Cannula 05/14/18 08:26 Nasal Cannula 3.0 32 05/14/18 08:26 Nasal Cannula 05/14/18 08:25 97 Nasal Cannula 3.0 32 05/14/18 08:00 97.7 95 20 146/80 (102) 96 97.7 05/14/18 06:23 157/74 05/14/18 04:00 96 05/14/18 04:00 98.2 101 24 157/74 (101) 94 98.2 05/14/18 03:36 95 21 98 Facial 30 05/14/18 01:46 95 20 97 Facial 30 05/14/18 00:00 92 05/14/18 00:00 98.0 101 24 139/68 (91) 97 98.0 05/13/18 22:36 147/64 05/13/18 21:00 Nasal Cannula 3.0 05/13/18 20:26 101 18 98 Nasal Cannula 3.0 32 05/13/18 20:16 Nasal Cannula 3.0 32 05/13/18 20:16 97 Nasal Cannula 3.0 32 05/13/18 20:16 94 20 97 Nasal Cannula 3.0 32 05/13/18 20:00 98.2 98 24 147/64 (91) 99 98.2 05/13/18 20:00 96 05/13/18 16:00 97.7 93 20 101/80 (87) 95 97.7 05/13/18 16:00 91 05/13/18 13:41 142/66 05/13/18 13:26 93 18 97 Nasal Cannula 3.0 32 05/13/18 13:24 93 20 91 Nasal Cannula 3.0 32 Intake and Output 05/13/18 05/14/18 19:00 07:00 Intake Total 840 ml Balance 840 ml Intake Oral 840 ml # Voids 2 5 Laboratory Tests 05/14/18 00:30: Urine Color Pale yellow, Urine Appearance Clear, Urine pH 6, Urine Specific [place] 1.015, Urine Protein 1+H, Urine Glucose (UA) Negative, Urine Ketones Negative, Urine Occult Blood Negative, Urine Nitrite PositiveH, Urine Bilirubin Negative, Urine Urobilinogen Normal, Urine Leukocyte Esterase 1+H, Urine RBC 0-2 , Urine WBC 5-10H, Urine Squamous Epithelial Cells Few, Urine Bacteria None 05/14/18 04:55: White Blood Count 13.5H, Red Blood Count 3.13L, Hemoglobin 8.8L, Hematocrit 28.1L, Mean Corpuscular Volume 90, Mean Corpuscular Hemoglobin 28.2, Mean Corpuscular Hemoglobin Concent 31.4L, Red Cell Distribution Width 13.4, Platelet Count 373, Mean Platelet Volume 6.9, Neutrophils (%) (Auto) 71.2, Lymphocytes (%) (Auto) 19.8L, Monocytes (%) (Auto) 8.4, Eosinophils (%) (Auto) 0.2, Basophils (%) (Auto) 0.4, Sodium Level 142, Potassium Level 3.5, Chloride Level 101, Carbon Dioxide Level 38H, Anion Gap 3L, Blood Urea Nitrogen 20H, Creatinine 0.8, Estimat Glomerular Filtration Rate > 60, Glucose Level 137H, Calcium Level 8.4L, Magnesium Level 1.2L, Pro-B-Type Natriuretic Peptide 211H Height (Feet): 5 Height (Inches): 1.00 Weight (Pounds): 224 Jayy Andino MD May 14, 2018 12:29
--- NOTE | 2018-05-14 13:14 | General Progress Note ---
Assessment/Plan Status: stable Subjective Date patient seen: May 14, 2018 Neurologic/Psychiatric: Reports: anxiety, emotional problems Allergies: Coded Allergies: AMOXICILLIN (Verified Allergy, Mild, RASH HIVES, 09/29/13) ERYTHROMYCIN BASE (Unverified Allergy, Unknown, 10/13/17) IODINE (Verified Allergy, Unknown, 09/29/13) PENICILLINS (Verified Allergy, Unknown, RASH HIVES, 09/29/13) Subjective the pt is doing better today and more receptive. The pt is less anxious. the pt stressed out about her medical condition and disposition. Objective Last 24 Hour Vital Signs Date Time Temp Pulse Resp B/P (MAP) Pulse Ox O2 Delivery O2 Flow Rate FiO2 05/14/18 09:53 95 146/80 05/14/18 09:00 Nasal Cannula 3.0 05/14/18 08:27 Nasal Cannula 05/14/18 08:26 Nasal Cannula 3.0 32 05/14/18 08:26 Nasal Cannula 05/14/18 08:25 97 Nasal Cannula 3.0 32 05/14/18 08:00 97.7 95 20 146/80 (102) 96 97.7 05/14/18 06:23 157/74 05/14/18 04:00 96 05/14/18 04:00 98.2 101 24 157/74 (101) 94 98.2 05/14/18 03:36 95 21 98 Facial 30 05/14/18 01:46 95 20 97 Facial 30 05/14/18 00:00 92 05/14/18 00:00 98.0 101 24 139/68 (91) 97 98.0 05/13/18 22:36 147/64 05/13/18 21:00 Nasal Cannula 3.0 05/13/18 20:26 101 18 98 Nasal Cannula 3.0 32 05/13/18 20:16 Nasal Cannula 3.0 32 05/13/18 20:16 97 Nasal Cannula 3.0 32 05/13/18 20:16 94 20 97 Nasal Cannula 3.0 32 05/13/18 20:00 98.2 98 24 147/64 (91) 99 98.2 05/13/18 20:00 96 05/13/18 16:00 97.7 93 20 101/80 (87) 95 97.7 05/13/18 16:00 91 05/13/18 13:41 142/66 8/1/18 13:26 93 18 97 Nasal Cannula 3.0 32 05/13/18 13:24 93 20 91 Nasal Cannula 3.0 32 Intake and Output 05/13/18 05/14/18 19:00 07:00 Intake Total 840 ml Balance 840 ml Intake Oral 840 ml # Voids 2 5 Laboratory Tests 05/14/18 00:30: Urine Color Pale yellow, Urine Appearance Clear, Urine pH 6, Urine Specific [place] 1.015, Urine Protein 1+H, Urine Glucose (UA) Negative, Urine Ketones Negative, Urine Occult Blood Negative, Urine Nitrite PositiveH, Urine Bilirubin Negative, Urine Urobilinogen Normal, Urine Leukocyte Esterase 1+H, Urine RBC 0-2 , Urine WBC 5-10H, Urine Squamous Epithelial Cells Few, Urine Bacteria None 05/14/18 04:55: White Blood Count 13.5H, Red Blood Count 3.13L, Hemoglobin 8.8L, Hematocrit 28.1L, Mean Corpuscular Volume 90, Mean Corpuscular Hemoglobin 28.2, Mean Corpuscular Hemoglobin Concent 31.4L, Red Cell Distribution Width 13.4, Platelet Count 373, Mean Platelet Volume 6.9, Neutrophils (%) (Auto) 71.2, Lymphocytes (%) (Auto) 19.8L, Monocytes (%) (Auto) 8.4, Eosinophils (%) (Auto) 0.2, Basophils (%) (Auto) 0.4, Sodium Level 142, Potassium Level 3.5, Chloride Level 101, Carbon Dioxide Level 38H, Anion Gap 3L, Blood Urea Nitrogen 20H, Creatinine 0.8, Estimat Glomerular Filtration Rate > 60, Glucose Level 137H, Calcium Level 8.4L, Magnesium Level 1.2L, Pro-B-Type Natriuretic Peptide 211H Height (Feet): 5 Height (Inches): 1.00 Weight (Pounds): 224 General Appearance: no apparent distress, alert, overweight Neurologic: oriented x 3, responsive, depressed affect Jayy Andino MD May 14, 2018 13:14
[2018-05-14 16:00] VITALS: BP 142/67
[2018-05-14] MEDS: Montelukast 10mg tablet ORAL SCH (17:43)
[2018-05-14] MEDS: Tylenol #3 tab (300mg/30mg) ORAL PRN (19:15)
[2018-05-14 20:00] VITALS: BP 104/65
[2018-05-14] MEDS: Atorvastatin 20mg tab ORAL SCH (20:57)
[2018-05-14] MEDS: Miconazole Vag Cr 45gm Tube (100mg per applicator) VAGIN SCH (21:03)
[2018-05-14] MEDS ORDERED: Milk of Magnesia 30ml Ud ORAL SCH (23:00)
[2018-05-14] MEDS ORDERED: Milk of Magnesia 30ml Ud ORAL PRN (23:00)
[2018-05-14] MEDS ORDERED: Miralax 17gm pkt ORAL PRN (23:00)
--- NOTE | 2018-05-14 23:45 | Progress Note ---
DATE: 05/14/2018 CARDIOLOGY AND INTERNAL MEDICINE PROGRESS NOTE SUBJECTIVE: The patient still has pain in her ears . Left chest wall discomfort and some congestion and wheezing at times. She is constipated. OBJECTIVE: VITAL SIGNS: Blood pressure 104/65, pulse 97, respirations 20, and afebrile. LUNGS: Coarse breath sounds. Scattered rhonchi. HEART: Regular rhythm and rate. Normal S1, S2. ABDOMEN: Soft. EXTREMITIES: Trace dependent edema. LABORATORY DATA: Magnesium 1.3 and potassium 3.5. Chest x-ray today for evaluation of the right base, otherwise possible edema, no acute process. IMPRESSION: 1. Chronic obstructive pulmonary disease exacerbation. 2. Sleep apnea. 3. Acute mastoiditis. 4. Chronic diastolic congestive heart failure. 5. Severe hypomagnesemia. 6. Constipation. 7. Chronic hypoxia. 8. Paroxysmal atrial fibrillation. PLAN: 1. Taper oxygen to minimal requirements. 2. Taper steroids. 3. Respiratory hygiene. 4. Intravenous antibiotics. 5. Intravenous magnesium. 6. Cathartics/bowel regimen discharge planning. 7. Cardioembolic prophylaxis with Eliquis. Werner Martinez M.D. DR: CHASITY JOB#: [id number] CC:
[2018-05-15] VITALS: BP 132/67
[2018-05-15 05:25] VITALS: BP 156/87
[2018-05-15] MEDS: Lactobacillus-GG tablet ORAL SCH ×3 (05:33→16:15)
[2018-05-15] MEDS: HydrALAZINE 25mg tab ORAL SCH ×2 (05:34→14:12)
[2018-05-15] MEDS: Tylenol #3 tab (300mg/30mg) ORAL PRN (05:50)
[2018-05-15] MEDS ORDERED: Vancomycin 2gm/D5W 550ml IVPB SCH ×2 (06:00)
[2018-05-15] MEDS: NovoLOG Insulin Flexpen SUBQ SCH ×3 (06:23→16:30)
[2018-05-15 08:00] VITALS: BP 135/70
[2018-05-15] MEDS: Levalbuterol Inh UD 1.25mg/0.5ml HHN SCH ×2 (08:28→13:34)
[2018-05-15] MEDS: Ocean Nasal Spray 45ml NASAL SCH ×2 (08:42→14:16)
[2018-05-15] MEDS: Sertraline 100mg tab ORAL SCH (08:43)
[2018-05-15] MEDS: Cyclobenzaprine 10mg Tab ORAL PRN (08:43)
[2018-05-15] MEDS: Revatio 20mg tab ORAL SCH (08:43)
[2018-05-15] MEDS: Anastrazole 1mg tab ORAL SCH (08:44)
[2018-05-15] MEDS: Bacitracin Oint UD TOPIC SCH (08:44)
[2018-05-15] MEDS: dilTIAZem HCl CD 180mg cap ORAL SCH (08:44)
[2018-05-15] MEDS: Amiodarone 200mg tab ORAL SCH (08:44)
[2018-05-15] MEDS: Furosemide 40mg tab ORAL SCH (08:44)
[2018-05-15] MEDS: Eliquis 2.5mg tablet ORAL SCH (08:44)
[2018-05-15] MEDS: Naphazoline 0.03% Opth Soln 15ml BOTH EYES SCH ×2 (08:45→14:12)
[2018-05-15] MEDS: Flonase Nasal Inhaler 16gm NASAL SCH (08:45)
[2018-05-15] MEDS: Zinc Oxide Oint 2oz TOPIC SCH (08:50)
[2018-05-15] MEDS: HydrOXYzine 50mg tab ORAL PRN ×2 (09:01→14:30)
[2018-05-15] MEDS: Promethazine/DM 6.25mg/5ml ORAL PRN ×2 (09:01→14:30)
[2018-05-15] MEDS: Breo Ellipta 200/25mcg-14 dose INH SCH (09:26)
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
[2018-05-15 12:00] VITALS: BP 108/60
[2018-05-15 16:00] VITALS: BP 111/60
[2018-05-15] MEDS: Montelukast 10mg tablet ORAL SCH (16:15)
--- NOTE | 2018-05-15 16:27 | Infectious Diseases Prog Note ---
Assessment/Plan Assessment/Plan ASSESSMENT AND PLAN: 1. left arm wound infection/cellulitis, mastoiditis, ? cap, copd, uri/ bronchitis - bactrim and cipro po for [address] - if no improvement then iv abx for 6 weeks - wound care per protocol - d/w Dr. Martinez and Dr. Buckner - f/u labs 2. The patient has chronic obstructive pulmonary disease exacerbation. Continue treatment per Pulmonary medicine. She is on steroids also. Continue breathing treatments. 3. Hypertension. 4. Diabetes. 5. Blood sugar and blood pressure treatment per Dr. Martinez. 6. Hyperlipidemia. 7. Chronic obstructive pulmonary disease. 8. sob 9. Sleep apnea. 10. CO2 retention. 11. Diastolic dysfunction and heart failure. 12. Breast cancer. 13. Peripheral neuropathy. 14. Peripheral artery disease. 15. Paroxysmal atrial fibrillation. 16. Socially positive for smoking. 17. Family history is positive for cancer. 18. Allergies to penicillin, iodine, and erythromycin. 19. MAR was noted. 20. Case was discussed with RN. 21. Continue treatment per primary consultants. 22. Notes and records were noted. Subjective Constitutional: Reports: fatigue; Denies: fever HEENT: Reports: congestion - less Respiratory: Reports: shortness of breath - less Cardiovascular: Denies: chest pain Gastrointestinal/Abdominal: Denies: nausea, vomiting, diarrhea Genitourinary: Reports: other - no white Neurologic: Denies: headache Psychiatric: Denies: depression Skin: Denies: rash Hematologic: Denies: bleeding Musculoskeletal: Denies: pain Allergies: Coded Allergies: AMOXICILLIN (Verified Allergy, Mild, RASH HIVES, 09/29/13) ERYTHROMYCIN BASE (Unverified Allergy, Unknown, 10/13/17) IODINE (Verified Allergy, Unknown, 09/29/13) PENICILLINS (Verified Allergy, Unknown, RASH HIVES, 09/29/13) Objective Vital Signs Last 24 Hour Vital Signs Date Time Temp Pulse Resp B/P (MAP) Pulse Ox O2 Delivery O2 Flow Rate FiO2 05/15/18 14:12 108/60 05/15/18 13:42 109 24 98 Nasal Cannula 3.0 32 05/15/18 13:36 104 22 97 Nasal Cannula 3.0 32 05/15/18 12:00 93 05/15/18 12:00 97.7 102 20 108/60 (76) 97 97.7 05/15/18 09:42 97.5 05/15/18 09:00 Nasal Cannula 3.0 05/15/18 08:44 98 135/70 05/15/18 08:43 97.5 05/15/18 08:28 98 22 98 Nasal Cannula 2.0 28 05/15/18 08:23 Nasal Cannula 3.0 32 05/15/18 08:23 97 Nasal Cannula 3.0 32 05/15/18 08:23 97 22 98 Nasal Cannula 3.0 32 05/15/18 08:00 97.5 88 20 135/70 (91) 96 97.5 05/15/18 08:00 100 05/15/18 05:34 156/87 05/15/18 05:30 86 16 98 Facial 30 05/15/18 05:25 98.1 88 20 156/87 (110) 96 98.1 05/15/18 04:00 95 05/15/18 03:30 87 16 99 Facial 30 05/15/18 01:18 90 17 98 Facial 30 05/15/18 00:00 97.0 88 20 132/67 (88) 99 97.0 05/15/18 00:00 88 05/14/18 22:10 123/57 05/14/18 21:00 Nasal Cannula 3.0 05/14/18 20:00 97 05/14/18 20:00 98.2 98 20 104/65 (78) 98 98.2 05/14/18 19:25 102 20 99 Nasal Cannula 3.0 32 05/14/18 19:24 98 20 98 Nasal Cannula 3.0 32 05/14/18 19:24 Nasal Cannula 3.0 32 05/14/18 19:23 98 Nasal Cannula 3.0 32 05/14/18 19:15 98.2 Height (Feet): 5 Height (Inches): 1.00 Weight (Pounds): 224 General Appearance: no acute distress HEENT: normocephalic, atraumatic, anicteric, mucous membranes moist Respiratory/Chest: lungs clear, normal breath sounds, no respiratory distress, no accessory muscle use, crackles/rales, rhonchi - bilaterally, other - clearer bilateral Cardiovascular: normal rate, regular rhythm, no gallop/murmur, no JVD Abdomen: normal bowel sounds, soft, non tender, no organomegaly, non distended Genitourinary: other - no white, no cva pain Extremities: no cyanosis, other - left arm cellulitis and wounds improved, wounds screen cleaner Skin: no rash 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 Within these limitations: * Emphysematous changes pronounced in the bilateral upper lungs. * Few branching nodular densities in the anterior right lower lobe which may be infectious or inflammatory in etiology. Clinical correlation/follow-up recommended. * Stable cardiomegaly. Mild coronary arterial calcifications. * Findings consistent with anemia. Correlate with CBC. CT maxillo-facial IMPRESSION: Limited exam due to patient motion, particularly degrading images through the lower face and neck. Within these limitations: * No definite acute facial fracture * Bilateral mastoid air cell opacification, right greater than left. Findings concerning for mastoiditis or mastoid effusion. Correlate clinically. * Mild left ethmoid sinus disease. * Some fullness in the soft tissues of the posterior nasopharynx (region of the adenoids/torus tubarius/fossa of [place]) which are poorly evaluated without IV contrast. Pathology in these areas not entirely excluded. Microbiology Date/Time Source Procedure Growth Status 05/13/18 23:30 Wound Gram Stain - Final Resulted 05/13/18 23:30 Wound Wound Culture - Preliminary NO GROWTH AFTER 24 HOURS Resulted 05/14/18 11:00 Sputum Induced Gram Stain - Final Resulted 05/14/18 11:00 Sputum Induced Sputum Culture Pending Resulted Labs Test 05/14/18 00:30 05/14/18 04:55 05/15/18 04:59 Urine Color Pale yellow Urine Appearance Clear Urine pH 6 (4.5-8.0) Urine Specific [place] 1.015 (1.005-1.035) Urine Protein 1+ (NEGATIVE) Urine Glucose (UA) Negative (NEGATIVE) Urine Ketones Negative (NEGATIVE) Urine Occult Blood Negative (NEGATIVE) Urine Nitrite Positive (NEGATIVE) Urine Bilirubin Negative (NEGATIVE) Urine Urobilinogen Normal MG/DL (0.0-1.0) Urine Leukocyte Esterase 1+ (NEGATIVE) Urine RBC 0-2 /HPF (0 - 2) Urine WBC 5-10 /HPF (0 - 2) Urine Squamous Epithelial Cells Few /LPF (NONE/OCC) Urine Bacteria None /HPF (NONE) White Blood Count 13.5 K/UL (4.8-10.8) Red Blood Count 3.13 M/UL (4.20-5.40) Hemoglobin 8.8 G/DL (12.0-16.0) Hematocrit 28.1 % (37.0-47.0) Mean Corpuscular Volume 90 FL (80-99) Mean Corpuscular Hemoglobin 28.2 PG (27.0-31.0) Mean Corpuscular Hemoglobin Concent 31.4 G/DL (32.0-36.0) Red Cell Distribution Width 13.4 % (11.6-14.8) Platelet Count 373 K/UL (150-450) Mean Platelet Volume 6.9 FL (6.5-10.1) Neutrophils (%) (Auto) 71.2 % (45.0-75.0) Lymphocytes (%) (Auto) 19.8 % (20.0-45.0) Monocytes (%) (Auto) 8.4 % (1.0-10.0) Eosinophils (%) (Auto) 0.2 % (0.0-3.0) Basophils (%) (Auto) 0.4 % (0.0-2.0) Sodium Level 142 MMOL/L (136-145) Potassium Level 3.5 MMOL/L (3.5-5.1) Chloride Level 101 MMOL/L (98-107) Carbon Dioxide Level 38 MMOL/L (21-32) Anion Gap 3 mmol/L (5-15) Blood Urea Nitrogen 20 mg/dL (7-18) Creatinine 0.8 MG/DL (0.55-1.30) Estimat Glomerular Filtration Rate > 60 mL/min (>60) Glucose Level 137 MG/DL (74-106) Calcium Level 8.4 MG/DL (8.5-10.1) Magnesium Level 1.2 MG/DL (1.5-2.4) Pro-B-Type Natriuretic Peptide 211 pg/mL (0-125) Vancomycin Level Trough 2.1 ug/mL (5.0-12.0) Laboratory Tests Test 05/15/18 04:59 Vancomycin Level Trough 2.1 ug/mL (5.0-12.0) L Current Medications Medications (Trade) Dose Ordered Sig/Sera Route PRN Reason Start Time Stop Time Status Last Admin Dose Admin Acetaminophen/ Codeine Phosphate (Tylenol #3) 1 tab Q6H PRN ORAL For Pain 05/11/18 22:00 05/18/18 21:59 05/15/18 05:50 Amiodarone HCl (Cordarone) 200 mg DAILY ORAL 05/12/18 09:00 06/11/18 08:59 05/15/18 08:44 Anastrozole (Arimidex) 1 mg DAILY ORAL 05/12/18 09:00 06/11/18 08:59 05/15/18 08:44 Apixaban (Eliquis) 5 mg BID ORAL 05/12/18 09:00 06/11/18 08:59 05/15/18 08:44 Atorvastatin Calcium (Lipitor) 20 mg BEDTIME ORAL 05/11/18 21:00 06/10/18 20:59 05/14/18 20:57 Bacitracin (Bacitracin) 1 applic DAILY TOPIC 05/11/18 22:00 06/10/18 21:59 05/15/18 08:44 Ciprofloxacin 200 ml @ 200 mls/hr Q12H IV 05/16/18 00:00 05/20/18 02:14 Cyclobenzaprine HCl (Flexeril) 10 mg Q6H PRN ORAL Muscle Spasm 05/13/18 18:00 06/12/18 17:59 05/15/18 08:43 Dextrose (Dextrose 50%) 25 ml STAT PRN IV Hypoglycemia 05/11/18 19:00 06/10/18 18:59 Dextrose (Dextrose 50%) 50 ml STAT PRN IV Hypoglycemia 05/11/18 19:00 06/10/18 18:59 Diltiazem HCl (Cardizem CD) 180 mg DAILY ORAL 05/13/18 09:00 06/12/18 08:59 05/15/18 08:44 Fluticasone Propionate (Flonase) 1 spray Q12HR NASAL 05/13/18 19:00 06/12/18 18:59 05/15/18 08:45 Fluticasone/ Vilanterol (Breo Ellipta 200/25) 1 puffs DAILY INH 05/12/18 09:00 06/11/18 08:59 05/15/18 09:26 Furosemide (Lasix) 40 mg DAILY ORAL 05/12/18 09:00 06/11/18 08:59 05/15/18 08:44 Hydralazine HCl (Apresoline) 25 mg EVERY 8 HOURS ORAL 05/11/18 22:00 06/10/18 21:59 05/15/18 14:12 Hydroxyzine HCl (Atarax) 50 mg Q8H PRN ORAL Itching 05/11/18 19:15 06/10/18 19:14 05/15/18 14:30 Insulin Aspart (NovoLOG) BEFORE MEALS AND HS SUBQ 05/11/18 21:00 06/10/18 20:59 05/15/18 11:48 Lactobacillus Acidophilus (Culturelle) 1 tab TIAC ORAL 05/14/18 05:00 06/13/18 04:59 05/15/18 11:47 Levalbuterol HCl (Xopenex) 1.25 mg TIDRT HHN 05/11/18 22:45 05/16/18 22:44 05/15/18 13:34 Lidocaine (Xylocaine 5% cream) 1 applic DAILY PRN TOPIC knee pain 05/12/18 14:00 06/11/18 13:59 05/14/18 17:49 Lorazepam (Ativan) 2 mg Q6H PRN ORAL For Anxiety 05/13/18 11:30 05/20/18 11:29 Magnesium Hydroxide (Mom) 30 ml HSPRN PRN ORAL Constipation 05/14/18 23:00 06/13/18 22:59 Magnesium Sulfate 100 ml @ 100 mls/hr Q1H IVPB 05/15/18 15:00 05/15/18 16:59 05/15/18 15:29 Metformin HCl (Glucophage) 850 mg TWICE A DAY ORAL 05/12/18 09:00 06/11/18 08:59 05/15/18 08:44 Miconazole Nitrate (Monistat) 1 applic BEDTIME VAGIN 05/13/18 22:30 06/12/18 22:29 05/14/18 21:03 Montelukast Sodium (Singulair) 10 mg QPM ORAL 05/12/18 16:30 06/11/18 16:29 05/14/18 17:43 Naphazoline HCl (Vasocon) 1 drop TID BOTH EYES 05/13/18 19:00 06/12/18 18:59 05/15/18 14:12 Neomycin/ Polymyxin/ Hydrocortisone (Cortisporin 1% Otic Soln) 4 drop THREE TIMES A DAY BOTH EARS 05/12/18 09:00 05/19/18 08:59 05/15/18 14:12 Ondansetron HCl (Zofran) 4 mg Q6H PRN IVP Nausea & Vomiting 05/11/18 22:00 06/10/18 21:59 05/15/18 08:44 Pantoprazole (Protonix) 40 mg ACBREAKFAST ORAL 05/14/18 07:00 06/13/18 06:59 05/15/18 05:33 Polyethylene Glycol (Miralax) 17 gm DAILY PRN ORAL Constipation 05/14/18 23:00 06/13/18 22:59 Potassium Chloride (K-Dur) 10 meq DAILY ORAL 05/12/18 09:00 06/11/18 08:59 05/15/18 08:44 Prednisone (predniSONE) 20 mg DAILY ORAL 05/15/18 09:00 06/14/18 08:59 05/15/18 08:44 Promethazine HCl/ Dextromethorphan (Phenergan DM) 6.25 mg Q6H PRN ORAL For Cough 05/12/18 14:00 06/11/18 13:59 05/15/18 14:30 Sertraline HCl (Zoloft) 100 mg DAILY ORAL 05/14/18 09:00 06/13/18 08:59 05/15/18 08:43 Sildenafil Citrate (Revatio) 20 mg TWICE A DAY ORAL 05/12/18 09:00 06/11/18 08:59 05/15/18 08:43 Sodium Chloride ([place] Nasal [place]) 1 spray TID NASAL 05/13/18 22:30 06/12/18 22:29 05/15/18 14:16 Vancomycin HCl (Vanco rx to dose) 1 ea DAILY PRN MISC Per rx protocol 05/13/18 17:15 06/12/18 17:14 Vancomycin HCl/ Dextrose 250 ml @ 125 mls/hr Q12H IVPB 05/15/18 22:00 05/20/18 21:59 Zinc Oxide (Zinc Oxide) 1 applic BID TOPIC 05/13/18 22:30 06/12/18 22:29 05/15/18 08:50 Darlin Mcmillan MD May 15, 2018 16:27
[2018-05-15] MEDS ORDERED: Tubing IV Secondary IV ONE (17:04)
[2018-05-15] MEDS ORDERED: Bactrim-DS 1 tab ORAL SCH (18:00)
[2018-05-15] MEDS ORDERED: Ciprofloxacin 500mg tab ORAL SCH (21:00)
[2018-05-15] MEDS ORDERED: Vancomycin 1500mg IVPB SCH (22:00)
--- NOTE | 2018-05-18 10:22 | Discharge Summary ---
Discharge Summary Discharge Summary _ DATE OF ADMISSION: 05/11/2018 DATE OF DISCHARGE: 2017 REASON FOR ADMISSION: 57 years old female with past medical history of hypertension, diastolic dysfunction, pulmonary hypertension, COPD, CO2 retention, obstructive sleep apnea, diabetes mellitus requiring insulin, history of respiratory failure, hyperlipidemia, breast cancer ,status post right mastectomy, diabetic nephropathy with ensuing chronic kidney disease, paroxysmal atrial fibrillation , was sent from the halfway facility for worsening shortness of breath, chest tightness and swelling of the left upper extremity. Patient was at the halfway facility for rehabilitation and was receiving physical therapy. She treated with ice packs over her chest last week, which were tied around her chest wall and arms and remained in place during activities. While they were removed, some skin came out from the left shoulder region . Patient reported persistent swelling in her left arm and chest wall. She also reported increased shortness of breath over the past week, despite use of oral steroids, She had ear pain and congestion for which she recently saw ENT specialist Dr. Buckner. CT scan was ordered but was not yet completed. In emergency department patient undergone maxillofacial CT scan, which revealed no definite acute facial fracture. It demonstrated bilateral findings concerning for mastoiditis versus mastoid effusion. Mild left ethmoid sinus disease. CT of the chest revealed emphysematous changes in bilateral upper lungs. Few branching nodular densities in the anterior right lower lobe may be infectious or inflammatory etiology. Stable cardiomegaly. Patient admitted with the diagnoses off COPD exacerbation ,paroxysmal bronchospasm ,CO2 retention ,history of respiratory failure ,possible sinusitis , possible ear canal disease, hypertensive heart disease, left shoulder abrasion, chronic diastolic CHF, chronic venous insufficiency, history of breast cancer ,sleep apnea, diabetes mellitus, paroxysmal atrial fibrillation. CONSULTANTS: pulmonary dr. Caruso ID specialist dr. Mcmillan psychiatrist [facility]SE: Patient admitted to telemetry floor. Supplemental oxygen provided as needed to keep pulse oximetry above 90%. Pulmonary toilet via HHN with bronchodilator provided. Patient started on e IV steroids and empiric antibiotics. Antitussive provided as needed. ID and pulmonary consults were requested. Amiodarone dose was decreased to maintenance dose. Anticoagulation with Eliquis for cardioembolic prophylaxis continued. Hemoglobin and hematocrit remained stable. TSH was within normal limits. Steroids were gradually tapered and discontinued . BiPAP provided at nighttime and as needed. Sputum culture was negative. Wound culture of the left arm revealed Staphylococcus coagulase negative Per infectious disease specialist , patient will need treatment with IV antibiotics for 2 weeks. Patient will need to be reevaluated after 2 weeks, and if no improvement patient will need antibiotic for total of 6 weeks, per ID specialist recommendations. Wound care provided as per protocol. Blood pressure was closely monitored and managed Maintenance dose of Lasix was continued with close monitoring of volumes and cardiorenal parameters. Electrolytes were closely monitored and corrected as needed , namely potassium and magnesium. Hemoglobin and hematocrit were closely monitored with goal to keep hemoglobin above 7. GI prophylaxis provided. Protein supplements provided for moderate protein calorie malnutrition as per dietitian recommendations. Psychiatrist seen and evaluated patient , diagnosed patient with anxiety disorder, mood disorder and cluster B personality. Psychiatrist stated that the patient would benefit from SSRIs, but patient declined them. Pain management provided . Arimidex was continued Blood sugar was managed with metformin and sliding scale of insulin as needed. Hemoglobin A1c-7.1, at goal. Bowel regimen instituted . Supportive therapy provided . Patient was stable for transfer to halfway facility for continuation of care. FINAL DIAGNOSES: COPD exacerbation Left arm wound infection/cellulitis Acute mastoiditis Upper respiratory infection/bronchitis Possible pneumonia Paroxysmal atrial fibrillation Emphysema Obstructive sleep apnea Anemia of chronic disease Hypertensive heart disease Diabetes mellitus Chronic diastolic CHF History of right breast CA, s/p mastectomy Moderate protein calorie malnutrition Anxiety disorder Mood disorder Cluster B personality DISCHARGE MEDICATIONS: See Medication Reconciliation list. DISCHARGE INSTRUCTIONS: Patient was discharged to halfway facility; follow-up with medical doctor at the facility. I have been assigned to dictate discharge summary for this account. I was not involved in the patient's management. Elissa Cho NP May 18, 2018 10:22
== END 2018-05-15 17:05 | DRG 190 ==
LOC: 2E 16:30
DX: J44.1 Chronic obstructive pulmonary disease with (acute) exacerbation (principal); J18.9 Pneumonia, unspecified organism; I50.32 Chronic diastolic (congestive) heart failure; L03.114 Cellulitis of left upper limb; E44.0 Moderate protein-calorie malnutrition; H70.003 Acute mastoiditis without complications, bilateral; I11.0 Hypertensive heart disease with heart failure; J32.9 Chronic sinusitis, unspecified; S40.212A Abrasion of left shoulder, initial encounter; S20.219A Contusion of unspecified front wall of thorax, initial encounter; Z85.3 Personal history of malignant neoplasm of breast; I27.20 Pulmonary hypertension, unspecified; E11.9 Type 2 diabetes mellitus without complications; Z79.4 Long term (current) use of insulin; E78.5 Hyperlipidemia, unspecified; Z90.11 Acquired absence of right breast and nipple; I48.0 Paroxysmal atrial fibrillation; J44.0 Chronic obstructive pulmonary disease with (acute) lower respiratory infection; G47.33 Obstructive sleep apnea (adult) (pediatric); D63.8 Anemia in other chronic diseases classified elsewhere; F41.9 Anxiety disorder, unspecified; F39 Unspecified mood [affective] disorder; F60.89 Other specific personality disorders; Z87.891 Personal history of nicotine dependence; F32.9 Major depressive disorder, single episode, unspecified; Z88.1 Allergy status to other antibiotic agents; Z88.0 Allergy status to penicillin; Z88.8 Allergy status to other drugs, medicaments and biological substances; G62.9 Polyneuropathy, unspecified; E83.42 Hypomagnesemia; X58.XXXA Exposure to other specified factors, initial encounter; Y92.009 Unspecified place in unspecified non-institutional (private) residence as the place of occurrence of the external cause
CPT/HCPCS: 36415; 70486; 71045; 71250; 80048; 80053; 80202; 81003; 82962; 83036; 83735; 83880; 84443; 84550; 85025; 87070; 87205; 94640; 94660; 94664; 94760; C9399; J1815; J2405; J7620

== ENCOUNTER 2018-11-10 14:40 | Inpatient (IN) | payer MEDICARE, MEDICAID ==
[~2018-11-10] VITALS: Ht 154.9 cm; Wt 92.6 kg
[~2018-11-10 14:40] MED LIST changes: +HYDRALAZINE HCL25 M1 ORAL; +MELATONIN5 M5 ORAL; +PREDNISONE10 MG ORAL; +SILDENAFIL20 MG ORAL
--- NOTE | 2018-11-10 14:55 | Emergency Room Report ---
History of Present Illness General Chief Complaint: Dyspnea/Respdistress Source: Patient, Medical Record, EMS Present Illness HPI Patient is a 58-year-old female presented after increased difficulty breathing. Patient had prior history of COPD. She was noted to have increased chest tightness. Was having increased generalized weakness as well as increased difficulty breathing for approximately 1 hour. Patient was brought in by EMS. Patient is followed by Dr. Floyd Downey. She reports having prior history of similar symptoms. She denies any smoking currently. Allergies: Coded Allergies: AMOXICILLIN (Verified Allergy, Mild, RASH HIVES, 09/29/13) ERYTHROMYCIN BASE (Unverified Allergy, Unknown, 10/13/17) IODINE (Verified Allergy, Unknown, 09/29/13) PENICILLINS (Verified Allergy, Unknown, RASH HIVES, 09/29/13) Patient History Past Medical History: see triage record, COPD Reviewed Nursing Documentation: PMH: Agreed; PSxH: Agreed Nursing Documentation-PMH Hx Cardiac Problems: Yes Hx Hypertension: Yes Hx Pacemaker: No Hx Asthma: Yes Hx COPD: Yes Hx Diabetes: Yes Hx Cancer: Yes Hx Gastrointestinal Problems: Yes Hx Neurological Problems: No Review of Systems All Other Systems: negative except mentioned in HPI Physical Exam Vital Signs Date Time Temp Pulse Resp B/P (MAP) Pulse Ox O2 Delivery O2 Flow Rate FiO2 11/10/18 14:35 98.4 91 20 165/97 100 Non-Rebreather 15.0 Sp02 EP Interpretation: reviewed, normal General Appearance: normal inspection, well appearing, no apparent distress, alert, GCS 15, obese, Chronically Ill Head: atraumatic ENT: normal ENT inspection, hearing grossly normal, normal voice Neck: normal inspection, full range of motion, supple, no bony tend Respiratory: no retraction, accessory muscle use, wheezing, other - prolonged respirations Cardiovascular #1: regular rate, rhythm, edema Gastrointestinal: normal inspection, normal bowel sounds, non tender, soft, no guarding, no hernia Genitourinary: no CVA tenderness Musculoskeletal: normal inspection, back normal, normal range of motion Neurologic: normal inspection, alert, oriented x3, responsive, 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 Differential diagnosis include was not limited to CHF, COPD exacerbation, pneumonia among others. Because of complexity of patient's case laboratory testing and imaging studies were ordered.Patient was noted to have adequately controlled blood pressure. Patient was noted to have some evidence of pedal edema and she was given IV Lasix. Patient was noted to have slightly prolonged QT on EKG. Given breathing treatments as well as IV steroids. Patient given IV magnesium. She was started on BiPAP after ABG showed metabolic acidosis and CO2 retention. Patient was noted to be awake and alert despite elevated CO2 and patient is noted to be at least partially compensated. Dr. Floyd Downey was contacted for inpatient management due to primary care physician. Laboratory Tests Test 11/10/18 15:00 11/10/18 15:35 11/10/18 16:30 11/10/18 17:13 White Blood Count 12.8 K/UL (4.8-10.8) H Red Blood Count 3.13 M/UL (4.20-5.40) L Hemoglobin 8.2 G/DL (12.0-16.0) L Hematocrit 27.8 % (37.0-47.0) L Mean Corpuscular Volume 89 FL (80-99) Mean Corpuscular Hemoglobin 26.4 PG (27.0-31.0) L Mean Corpuscular Hemoglobin Concent 29.7 G/DL (32.0-36.0) L Red Cell Distribution Width 16.3 % (11.6-14.8) H Platelet Count 201 K/UL (150-450) Mean Platelet Volume 8.1 FL (6.5-10.1) Neutrophils (%) (Auto) % (45.0-75.0) Lymphocytes (%) (Auto) % (20.0-45.0) Monocytes (%) (Auto) % (1.0-10.0) Eosinophils (%) (Auto) % (0.0-3.0) Basophils (%) (Auto) % (0.0-2.0) Differential Total Cells Counted 100 Neutrophils % (Manual) 91 % (45-75) H Lymphocytes % (Manual) 5 % (20-45) L Monocytes % (Manual) 3 % (1-10) Eosinophils % (Manual) 0 % (0-3) Basophils % (Manual) 0 % (0-2) Band Neutrophils 1 % (0-8) Platelet Estimate Adequate Platelet Morphology Normal Polychromasia 1+ Hypochromasia 2+ Anisocytosis 1+ Sodium Level 142 MMOL/L (136-145) Potassium Level 4.5 MMOL/L (3.5-5.1) Chloride Level 101 MMOL/L (98-107) Carbon Dioxide Level 40 MMOL/L (21-32) H Anion Gap 1 mmol/L (5-15) L Blood Urea Nitrogen 16 mg/dL (7-18) Creatinine 1.0 MG/DL (0.55-1.30) Estimate Glomerular Filtration Rate > 60 mL/min (>60) Glucose Level 280 MG/DL (74-106) H Calcium Level 8.4 MG/DL (8.5-10.1) L Total Bilirubin 0.2 MG/DL (0.2-1.0) Aspartate Amino Transferase (AST) 21 U/L (15-37) Alanine Aminotransferase (ALT) 43 U/L (12-78) Alkaline Phosphatase 60 U/L (46-116) Troponin I 0.014 ng/mL (0.000-0.056) Pro-B-Type Natriuretic Peptide 2195 pg/mL (0-125) H Total Protein 6.5 G/DL (6.4-8.2) Albumin 2.6 G/DL (3.4-5.0) L Globulin 3.9 g/dL Albumin/Globulin Ratio 0.7 (1.0-2.7) L Lipase 164 U/L (73-393) Prothrombin Time 9.4 SEC (9.30-11.50) Prothrombin Time INR 0.9 (0.9-1.1) PTT 21 SEC (23-33) L Urine Color Pale yellow Urine Appearance Clear Urine pH 5 (4.5-8.0) Urine Specific [place] 1.020 (1.005-1.035) Urine Protein Negative (NEGATIVE) Urine Glucose (UA) 3+ (NEGATIVE) H Urine Ketones Negative (NEGATIVE) Urine Blood Negative (NEGATIVE) Urine Nitrite Negative (NEGATIVE) Urine Bilirubin Negative (NEGATIVE) Urine Urobilinogen Normal MG/DL (0.0-1.0) Urine Leukocyte Esterase Negative (NEGATIVE) Urine RBC 0-2 /HPF (0 - 2) Urine WBC 0-2 /HPF (0 - 2) Urine Squamous Epithelial Cells Occasional /LPF Urine Bacteria Occasional /HPF (NONE) Arterial Blood pH 7.247 (7.350-7.450) Arterial Blood Partial Pressure CO2 112.8 mmHg (35.0-45.0) *H Arterial Blood Partial Pressure O2 49.5 mmHg (75.0-100.0) Arterial Blood HCO3 48.0 mmol/L (22.0-26.0) *H Arterial Blood Oxygen Saturation 78.3 % (95-100) *L Arterial Blood Base Excess 17.4 (-2-2) *H Rico Test Positive Test 11/10/18 22:30 11/11/18 03:35 Arterial Blood pH 7.286 (7.350-7.450) Arterial Blood Partial Pressure CO2 104.8 mmHg (35.0-45.0) *H Arterial Blood Partial Pressure O2 53.0 mmHg (75.0-100.0) L Arterial Blood HCO3 48.8 mmol/L (22.0-26.0) *H Arterial Blood Oxygen Saturation 82.9 % (95-100) *L Arterial Blood Base Excess 18.8 (-2-2) *H Rico Test Positive White Blood Count 7.7 K/UL (4.8-10.8) Red Blood Count 3.22 M/UL (4.20-5.40) L Hemoglobin 8.3 G/DL (12.0-16.0) L Hematocrit 28.5 % (37.0-47.0) L Mean Corpuscular Volume 88 FL (80-99) Mean Corpuscular Hemoglobin 25.6 PG (27.0-31.0) L Mean Corpuscular Hemoglobin Concent 29.0 G/DL (32.0-36.0) L Red Cell Distribution Width 16.8 % (11.6-14.8) H Platelet Count 208 K/UL (150-450) Mean Platelet Volume 8.5 FL (6.5-10.1) Neutrophils (%) (Auto) % (45.0-75.0) Lymphocytes (%) (Auto) % (20.0-45.0) Monocytes (%) (Auto) % (1.0-10.0) Eosinophils (%) (Auto) % (0.0-3.0) Basophils (%) (Auto) % (0.0-2.0) Differential Total Cells Counted 100 Neutrophils % (Manual) 90 % (45-75) H Lymphocytes % (Manual) 7 % (20-45) L Monocytes % (Manual) 3 % (1-10) Eosinophils % (Manual) 0 % (0-3) Basophils % (Manual) 0 % (0-2) Band Neutrophils 0 % (0-8) Platelet Estimate Adequate Platelet Morphology Normal Hypochromasia 1+ Anisocytosis 1+ Sodium Level 142 MMOL/L (136-145) Potassium Level 4.3 MMOL/L (3.5-5.1) Chloride Level 99 MMOL/L (98-107) Carbon Dioxide Level > 45 MMOL/L (21-32) *H Blood Urea Nitrogen 18 mg/dL (7-18) Creatinine 0.9 MG/DL (0.55-1.30) Estimate Glomerular Filtration Rate > 60 mL/min (>60) Glucose Level 224 MG/DL (74-106) H Calcium Level 8.7 MG/DL (8.5-10.1) Magnesium Level 1.9 MG/DL (1.8-2.4) Total Bilirubin 0.3 MG/DL (0.2-1.0) Aspartate Amino Transferase (AST) 20 U/L (15-37) Alanine Aminotransferase (ALT) 46 U/L (12-78) Alkaline Phosphatase 59 U/L (46-116) Troponin I 0.009 ng/mL (0.000-0.056) Pro-B-Type Natriuretic Peptide 2823 pg/mL (0-125) H Total Protein 6.3 G/DL (6.4-8.2) L Albumin 2.5 G/DL (3.4-5.0) L Globulin 3.8 g/dL Albumin/Globulin Ratio 0.7 (1.0-2.7) L Microbiology Date/Time Source Procedure Growth Status 11/10/18 15:15 Nasal Nares Influenza Types A,B Antigen (MARITZA) - Final Complete EKG Diagnostic Results Rate: normal - 92 Rhythm: NSR ST Segments: no acute changes Last Vital Signs Date Time Temp Pulse Resp B/P (MAP) Pulse Ox O2 Delivery O2 Flow Rate FiO2 11/10/18 14:35 98.4 91 20 165/97 100 Non-Rebreather 15.0 Status: improved Disposition: ADMITTED INPATIENT Condition: Serious Feliciano Presley MD Nov 10, 2018 14:55
[2018-11-10] MEDS ORDERED: PREDNISONE10 M2 PO (14:57)
[2018-11-10 15:00] VITALS: BP 131/74
[2018-11-10] MEDS ORDERED: Solu-MEDROL 125mg Inj IVP ONE (15:00)
[2018-11-10] MEDS ORDERED: Albuterol/Ipratropium 3ml neb HHN ONE (15:00)
--- NOTE | 2018-11-10 15:00 | NUR ---
ED Nurse Note: Pt PEGGYElisha from [facility] due to chest pain 7/10 radiates to both shoulders. pt was on non-breathing mask at 15L/min upon arrival but switched to 2L/min via nasal cannula per pt's request and still saturating at 96%. pt AAO x4 and skin intact and overweight. pt able to change the postion in bed by herself.
[2018-11-10 15:15] LABS: HEMATOCRIT 27.8 % (37.0-47.0); HEMOGLOBIN 8.2 G/DL (12.0-16.0); MEAN CORPUSCULAR VOLUME 89 FL (80-99); PLATELET COUNT 201 K/UL (150-450); RED BLOOD COUNT 3.13 M/UL (4.20-5.40); RED CELL DISTRIBUTION WIDTH 16.3 % (11.6-14.8); WHITE BLOOD COUNT 12.8 K/UL (4.8-10.8)
[2018-11-10 15:25] LABS: ANION GAP 1 mmol/L (5-15); BLOOD UREA NITROGEN 16 mg/dL (7-18); CALCIUM 8.4 MG/DL (8.5-10.1); CARBON DIOXIDE 40 MMOL/L (21-32); CHLORIDE 101 MMOL/L (98-107); POTASSIUM 4.5 MMOL/L (3.5-5.1); SODIUM 142 MMOL/L (136-145)
[2018-11-10 15:35] LABS: ALANINE AMINOTRANSFERASE 43 U/L (12-78); ALBUMIN 2.6 G/DL (3.4-5.0); ALBUMIN/GLOBULIN RATIO 0.7 (1.0-2.7); ALKALINE PHOSPHATASE 60 U/L (46-116); ASPARTATE AMINO TRANSFERASE 21 U/L (15-37); BILIRUBIN,TOTAL 0.2 MG/DL (0.2-1.0)
[2018-11-10 15:59] LABS: INR 0.9 (0.9-1.1)
--- NOTE | 2018-11-10 16:10 | NUR ---
ED Nurse Note: bp prior to lasix 126/56
[2018-11-10 16:41] LABS: APPEARANCE,URINE CLEAR; BILIRUBIN, URINE NEGATIVE (NEGATIVE); COLOR,URINE PALE YELLOW; GLUCOSE, URINE (UA) 3+ (NEGATIVE); KETONES,URINE NEGATIVE (NEGATIVE); LEUKOCYTE ESTERASE ,URINE NEGATIVE (NEGATIVE); NITRITE,URINE NEGATIVE (NEGATIVE); PH,URINE 5 (4.5-8.0); PROTEIN,URINE NEGATIVE (NEGATIVE); UROBILINOGEN,URINE NORMAL MG/DL (0.0-1.0)
--- NOTE | 2018-11-10 16:52 | NUR ---
ED Nurse Note: called RT for ABG
[2018-11-10 17:00] VITALS: BP 121/67
--- NOTE | 2018-11-10 17:00 | Diagnostic Imaging Report ---
Indication: Shortness of breath Technique: One view of the chest Comparison: 05/14/2018 Findings: Well-defined masslike opacity projects at the right lung base. This is similar to the previous and earlier exams, demonstrated on chest CT of 05/12/2018 to represent a fat-containing Bochdalek hernia. The heart is enlarged. The left hemidiaphragm is obscured. There is mild diffuse bilateral interstitial edema.. There are degenerative changes of the left shoulder Impression: Cardiomegaly Bilateral interstitial edema Obscured left hemidiaphragm, consolidation or pleural fluid at the left lung base likely Right basilar opacity, previously demonstrated to represent a fat-containing Bochdalek hernia
--- NOTE | 2018-11-10 17:05 | NUR ---
ED Nurse Note: pt sleeping in bed in stable condition. waiting for the possible admission direction.
--- NOTE | 2018-11-10 17:57 | NUR ---
ED Nurse Note: spoke with Malka pt's niece, phone number [phone], obtained verbal consent from pt.
--- NOTE | 2018-11-10 18:10 | NUR ---
ED Nurse Note: Attempted to give report and was not able to reach the nurse. will attempt again in Addendum: 11/10/18 at 1811 by [email or web address] ED Nurse Note: Attempted to give report and was not able to reach the nurse. will attempt in 10 minutes again.
--- NOTE | 2018-11-10 18:20 | NUR ---
ED Nurse Note: Report given to CYNDY Ruiz.
[2018-11-10 18:54] VITALS: BP 121/67
--- NOTE | 2018-11-10 18:56 | NUR ---
ED Nurse Note: Pt left unit with 1 field gauger and 1 rn in stable condition. pt is on 15L/min via non breathing mask.
--- NOTE | 2018-11-10 19:40 | NUR ---
NURSE NOTES: Received report from CYNDY Yeh. Patient seen in bed in flanagan position, on non rebreather mask with oxygen on 15L/min SPO2 is at 92%. Alert, verbally responsive, able to make needs known. Denies any pain at this time. c/o difficulty voiding. IV site to left AC 20g is intact. Paged Dr Downey for admission orders. currently awaiting for call back. Bed is in lowest position. call light is within reach. will continue to monitor.
[2018-11-10 20:00] VITALS: BP 133/68
--- NOTE | 2018-11-10 20:54 | NUR ---
NURSE NOTES: Received call back from Dr Downey with admission order and to put in white cath.
--- NOTE | 2018-11-10 21:15 | NUR ---
NURSE NOTES: Lee cath 16f inserted, urine is draining.
[2018-11-10] MEDS ORDERED: Sertraline 50mg tab ORAL SCH (22:00)
[2018-11-10] MEDS: NovoLOG Insulin Flexpen SUBQ SCH (22:35)
[2018-11-10] MEDS: Heparin 5000 units/ml inj SUBQ SCH (22:35)
--- NOTE | 2018-11-10 22:43 | Consultation ---
Consult Note Consult Note 58 year old female with endstage COPD with recent discharge for respiratory failure readmitted with similar symptoms and worsening CO2 retention. patient seen in the ER and admitted. Care reviewed in detail. Patient well known to me and care reviewed in detail. no fevers or chills. cough noted. mild sputum production findings reviewed in detail. ER notes reviewed in detail PMH COPD, CHF, JUAN JOSE, diabetes, hypertension, respiratory failure, hypoxemia, breast cancer, atrial fibrillation, obesity MEDS and Allergies reviewed and reconciled SOCIAL HISTORY smoker; disabled; recent snf admit WDWN NAD on BIPAP 124/80 98.6 74 13 94% on oxygen reduced breath sounds bilaterally without rhonchi or wheeze [id number] without MRG NABS nontender no HSM no CC mild edema obse nonfocal Labs Test 11/10/18 15:00 11/10/18 15:35 11/10/18 16:30 11/10/18 17:13 White Blood Count 12.8 K/UL (4.8-10.8) Red Blood Count 3.13 M/UL (4.20-5.40) Hemoglobin 8.2 G/DL (12.0-16.0) Hematocrit 27.8 % (37.0-47.0) Mean Corpuscular Volume 89 FL (80-99) Mean Corpuscular Hemoglobin 26.4 PG (27.0-31.0) Mean Corpuscular Hemoglobin Concent 29.7 G/DL (32.0-36.0) Red Cell Distribution Width 16.3 % (11.6-14.8) Platelet Count 201 K/UL (150-450) Mean Platelet Volume 8.1 FL (6.5-10.1) Neutrophils (%) (Auto) % (45.0-75.0) Lymphocytes (%) (Auto) % (20.0-45.0) Monocytes (%) (Auto) % (1.0-10.0) Eosinophils (%) (Auto) % (0.0-3.0) Basophils (%) (Auto) % (0.0-2.0) Differential Total Cells Counted 100 Neutrophils % (Manual) 91 % (45-75) Lymphocytes % (Manual) 5 % (20-45) Monocytes % (Manual) 3 % (1-10) Eosinophils % (Manual) 0 % (0-3) Basophils % (Manual) 0 % (0-2) Band Neutrophils 1 % (0-8) Platelet Estimate Adequate Platelet Morphology Normal Polychromasia 1+ Hypochromasia 2+ Anisocytosis 1+ Sodium Level 142 MMOL/L (136-145) Potassium Level 4.5 MMOL/L (3.5-5.1) Chloride Level 101 MMOL/L (98-107) Carbon Dioxide Level 40 MMOL/L (21-32) Anion Gap 1 mmol/L (5-15) Blood Urea Nitrogen 16 mg/dL (7-18) Creatinine 1.0 MG/DL (0.55-1.30) Estimat Glomerular Filtration Rate > 60 mL/min (>60) Glucose Level 280 MG/DL (74-106) Calcium Level 8.4 MG/DL (8.5-10.1) Total Bilirubin 0.2 MG/DL (0.2-1.0) Aspartate Amino Transf (AST/SGOT) 21 U/L (15-37) Alanine Aminotransferase (ALT/SGPT) 43 U/L (12-78) Alkaline Phosphatase 60 U/L (46-116) Troponin I 0.014 ng/mL (0.000-0.056) Pro-B-Type Natriuretic Peptide 2195 pg/mL (0-125) Total Protein 6.5 G/DL (6.4-8.2) Albumin 2.6 G/DL (3.4-5.0) Globulin 3.9 g/dL Albumin/Globulin Ratio 0.7 (1.0-2.7) Lipase 164 U/L (73-393) Prothrombin Time 9.4 SEC (9.30-11.50) Prothromb Time International Ratio 0.9 (0.9-1.1) Activated Partial Thromboplast Time 21 SEC (23-33) Urine Color Pale yellow Urine Appearance Clear Urine pH 5 (4.5-8.0) Urine Specific [place] 1.020 (1.005-1.035) Urine Protein Negative (NEGATIVE) Urine Glucose (UA) 3+ (NEGATIVE) Urine Ketones Negative (NEGATIVE) Urine Blood Negative (NEGATIVE) Urine Nitrite Negative (NEGATIVE) Urine Bilirubin Negative (NEGATIVE) Urine Urobilinogen Normal MG/DL (0.0-1.0) Urine Leukocyte Esterase Negative (NEGATIVE) Urine RBC 0-2 /HPF (0 - 2) Urine WBC 0-2 /HPF (0 - 2) Urine Squamous Epithelial Cells Occasional /LPF Urine Bacteria Occasional /HPF (NONE) Arterial Blood pH 7.247 (7.350-7.450) Arterial Blood Partial Pressure CO2 112.8 mmHg (35.0-45.0) Arterial Blood Partial Pressure O2 49.5 mmHg (75.0-100.0) Arterial Blood HCO3 48.0 mmol/L (22.0-26.0) Arterial Blood Oxygen Saturation 78.3 % (95-100) Arterial Blood Base Excess 17.4 (-2-2) Rico Test Positive Test 11/10/18 22:30 IMPRESSION acute on chronic respiratory failure hypercapnia COPD with recurrent exacerbation CHF sleep apnea leukocytosis, likely due to steroid use PLAN BIPAP IV steroids respiratory care oxygen monitor ABG prognosis guarded may need ICU care impression, plan, and exam edited and reviewed in detail care discussed with Froilan Clarke MD Nov 10, 2018 22:43
[2018-11-11] VITALS: BP 135/61
--- NOTE | 2018-11-11 02:30 | Consultation ---
DATE OF CONSULTATION: 11/10/2018 CARDIOLOGY CONSULTATION CONSULTING PHYSICIAN: Werner Martinez M.D. REQUESTING PHYSICIAN: Floyd Downey M.D. REASON FOR CONSULTATION: Congestive heart failure. HISTORY OF PRESENT ILLNESS: This 58-year-old female has a known history of hypertensive heart disease, diastolic dysfunction, and microvascular coronary artery disease. She has more significant COPD and presented to the emergency room with increasing chest tightness and shortness of breath. She was brought in by paramedics after one hour of difficult breathing noted. She was recently hospitalized at [facility] [place] for similar symptoms. Her emergency room workup was notable for signs of congestive heart failure prompting this consultation. ALLERGIES: Include iodine, penicillin, and erythromycin. MEDICATIONS: Prior to admission, reviewed and reconciled. PAST MEDICAL HISTORY: COPD, hypertensive heart disease, diastolic congestive heart failure, breast cancer with right mastectomy, insulin-requiring diabetes mellitus, diabetic neuropathy, diabetic microangiopathy, chronic kidney disease, gastroesophageal reflux disease, osteoarthritis, degenerative disk disease, hernia. FAMILY HISTORY: Notable for lung cancer in a sister. SOCIAL HISTORY: Greater than 60-pack year smoker, recently stopped smoking, but has had a history of never stopping for more than a short period of time. No alcohol use. There is a distant history of substance abuse. REVIEW OF SYSTEMS: Outpatient echocardiogram revealed normal ejection fraction, diastolic dysfunction, and mild degenerative valve disease. There is no history of flow-limiting coronary disease. She does not have any history of sustained arrhythmias, but does have a history of atrial ectopy. She does have a history of respiratory failure requiring intubation and mechanical ventilation. She has a history of breast cancer and mastectomy in remission. Her diabetes is managed with insulin. There is a history of chronic kidney disease. PHYSICAL EXAMINATION: VITAL SIGNS: Afebrile, blood pressure 165/97, pulse 91, respirations 20. She is on a non-rebreather mask. HEENT: Conjunctivae are pink. Arcus senilis. Oropharynx clear. NECK: Supple. Accessory muscle use noted. Jugular venous pressure elevated noted. LUNGS: With bilateral rales. Few coarse breath sounds and expiratory wheezes. CARDIAC: Regular rhythm and rate. Normal S1, S2 with a fourth heart sound. Right mastectomy. ABDOMEN: Soft, obese. EXTREMITIES: With 1+ dependent edema. NEUROLOGIC: Nonfocal. LABORATORY AND DIAGNOSTIC DATA: EKG, sinus rhythm at [address] change. Chest x-ray, pulmonary venous congestion, bilateral edema, left basal atelectasis versus effusion versus infiltrate. Sodium 142, potassium 4.5, bicarb 40, BUN 16, creatinine 1. Pro-natriuretic peptide 2195. ABG, 7.24, 112, 49. White count 12.8, hemoglobin 8.2. IMPRESSION: 1. COPD with acute exacerbation. 2. Acute on chronic diastolic congestive heart failure. 3. Anemia, multifactorial. 4. Paroxysmal bronchospasm. 5. Acute on chronic respiratory acidosis. 6. Compensatory metabolic alkalosis. 7. Insulin-requiring diabetes mellitus. 8. Acute on chronic kidney disease. 9. Hypertensive cardiomyopathy. 10. Hypoxia, critical and guarded. PLAN: 1. Aggressive respiratory hygiene. 2. Monitor acid-base parameters. 3. Inhaled bronchodilators, intravenous steroids, diuresis. 4. Add acetazolamide to help correct metabolic alkalosis and help stimulate respiratory drive. 5. DVT and stress ulcer prophylaxis. 6. Titrate antihypertensives. 7. Consider thoracentesis of adequate pleural fluid. Werner Martinez M.D. DR: MARY JOB#: [id number] CC:
[2018-11-11 04:00] VITALS: BP 156/76
[2018-11-11 05:42] LABS: HEMATOCRIT 28.5 % (37.0-47.0); HEMOGLOBIN 8.3 G/DL (12.0-16.0); MEAN CORPUSCULAR VOLUME 88 FL (80-99); PLATELET COUNT 208 K/UL (150-450); RED BLOOD COUNT 3.22 M/UL (4.20-5.40); RED CELL DISTRIBUTION WIDTH 16.8 % (11.6-14.8); WHITE BLOOD COUNT 7.7 K/UL (4.8-10.8)
[2018-11-11] MEDS: NovoLOG Insulin Flexpen SUBQ SCH ×4 (06:08→21:00)
[2018-11-11 06:34] LABS: ALANINE AMINOTRANSFERASE 46 U/L (12-78); ALBUMIN 2.5 G/DL (3.4-5.0); ALBUMIN/GLOBULIN RATIO 0.7 (1.0-2.7); ALKALINE PHOSPHATASE 59 U/L (46-116); ASPARTATE AMINO TRANSFERASE 20 U/L (15-37); BILIRUBIN,TOTAL 0.3 MG/DL (0.2-1.0); BLOOD UREA NITROGEN 18 mg/dL (7-18); CALCIUM 8.7 MG/DL (8.5-10.1); CHLORIDE 99 MMOL/L (98-107); CREATININE 0.9 MG/DL (0.55-1.30); POTASSIUM 4.3 MMOL/L (3.5-5.1); SODIUM 142 MMOL/L (136-145)
--- NOTE | 2018-11-11 06:45 | NUR ---
RESPIRATORY NOTE: Received pt on nonrebreather 100%, saturated at 96%. Convinced pt to be back on Bipap, pt agreed. Placed pt back on Bipap with current settin/5- 40% FiO2- back up rate 16, pt is tolerating Bipap well, no acute distress noted. Foam tapes in place, no redness or skin breakdown upon applying the full face mask. Alarms are set and audible, Bipap is plugged into the red outlet, ambu bag is at bedside. Will continue to monitor pt throughout the day.
[2018-11-11 07:03] LABS: CARBON DIOXIDE > 45 MMOL/L (21-32)
--- NOTE | 2018-11-11 07:20 | NUR ---
HAND-OFF: Report given to CYNDY Ordonez .
--- NOTE | 2018-11-11 07:20 | NUR ---
NURSE NOTES: Received report from Manuel Logan RN. Patient asleep in bed, opens eyes spontaneously, oriented x 3-4. Receiving O2 via bi-pap with settings of 10/5, FiO2 40%, saturating at 99%. Lee catheter patent and draining well. Left AC 20g saline lock patent and asymptomatic. Bed locked in lowest position with side rails up x 3. Bed alarm on. All needs attended to. Call light within reach. Will continue to monitor.
[2018-11-11 08:00] VITALS: BP 142/63
--- NOTE | 2018-11-11 08:45 | NUR ---
NURSE NOTES: Patient has Lasix 40mg IV x 1 due at 08:00 and Lasix 40mg IV q 12 hours due at 09:00. Left message with Dr. Martinez's office to clarify order. Dr. Downey saw patient at bedside and said patient does not need extra dose, give scheduled 09:00 dose and d/c 08:00. Orders noted and carried out.
--- NOTE | 2018-11-11 08:55 | NUR ---
RESPIRATORY NOTE: Changed pt to new settin/4- back up rate 16- 40% FiO2, per Dr. Downey's order. Pt is tolerating well, saturates at 96%. Will continue to monitor pt. Addendum: 11/11/18 at 0919 by Beny Faustin Shah RT CYNDY Ordonez made aware.
[2018-11-11] MEDS: Revatio 20mg tab ORAL SCH ×2 (09:26→17:41)
[2018-11-11] MEDS: Nystatin Susp 500,000 units/5ml ORAL SCH ×2 (09:26→20:25)
[2018-11-11] MEDS: Flonase Nasal Inhaler 16gm NASAL SCH ×2 (09:27→17:41)
[2018-11-11] MEDS: Heparin 5000 units/ml inj SUBQ SCH ×2 (09:28→20:26)
--- NOTE | 2018-11-11 10:30 | History and Physical Report ---
DATE OF ADMISSION: 11/10/2018 CHIEF COMPLAINT: Shortness of breath and respiratory failure. HISTORY OF PRESENT ILLNESS: The patient is an unfortunate 58-year-old female. She has a history of severe COPD, hypertension, diabetes, and obesity. She has a history of paroxysmal atrial fibrillation, history of breast cancer, status post mastectomy. She was admitted from a alf facility with complaints of shortness of breath. The patient has had worsening shortness of breath. She had a recent hospitalization at an outside hospital. She went to the [place] [facility] and family brought her BiPAP. Unfortunately, the mask they brought was the wrong mask. The staff tried to adjust the mask and fit the mask properly, but the patient states that she did not create a correct seal. On the day of transfer here, she was hypoxic and was transferred to the emergency room. On evaluation there, she was placed on BiPAP. Her saturations were in the mid 90s. X-ray showed interstitial edema and cardiomegaly. The patient was given Lasix, breathing treatments, and steroids now admitted for further evaluation and care. PAST MEDICAL HISTORY: As above. PAST SURGICAL HISTORY: Includes mastectomy. CURRENT MEDICATIONS: Reconciled and reviewed. ALLERGIES: Include penicillin, erythromycin, and iodine. FAMILY HISTORY: Noncontributory. SOCIAL HISTORY: The patient is a heavy smoker. Continues to smoke. No alcohol. No drugs. REVIEW OF SYSTEMS: GENERAL: No fevers or chills. HEENT: No headaches or visual changes. CARDIOPULMONARY: No chest pain. Positive shortness of breath. GASTROINTESTINAL: No nausea or vomiting. GENITOURINARY: No urgency or frequency. MUSCULOSKELETAL: No joint pain or swelling. NEUROLOGIC: No evidence of seizures. PHYSICAL EXAMINATION: VITAL SIGNS: Temperature 98, pulse 84, respirations 24, blood pressure 156/76, the patient is saturating 100% on BiPAP. GENERAL: The patient is a well-developed female, in no apparent distress. HEART: Regular rate and rhythm. LUNGS: Significantly diminished breath sounds with few scattered wheezes. ABDOMEN: Soft, obese, nontender, and nondistended. EXTREMITIES: Without clubbing, cyanosis. There is 1+ edema noted. LABORATORY DATA: White count 13, hemoglobin 8.2, hematocrit 27, and platelet count of 201. ABG showed a pH of 7.286, pCO2 of 104, bicarb of 53, O2 saturation of 82, and pO2 of 53. ASSESSMENT: This is an elderly female with severe COPD, CHF, diabetes, hypertension, and obesity, admitted with respiratory failure secondary to COPD and CHF exacerbation. PLAN: Continue BiPAP, aggressive diuresis, intravenous steroids, and respiratory treatments. Consider antibiotics. Continue DVT and stress ulcer prophylaxis. We will check a venous duplex. The patient's status is currently guarded. Floyd Downey M.D. DR: BOBBI JOB#: [id number] CC:
--- NOTE | 2018-11-11 11:32 | Pulmonology Progress Note ---
Assessment/Plan Assessment/Plan Pulmonary Progress Note HPI Patient is a 58 year old female with endstage COPD with recent discharge for respiratory failure readmitted with similar symptoms and worsening CO2 retention. patient seen in the ER and admitted. Care reviewed in detail. Patient well known to me and care reviewed in detail. no fevers or chills. cough noted. mild sputum production findings reviewed in detail. ER notes reviewed in detail PMH COPD, CHF, JUAN JOSE, diabetes, hypertension, respiratory failure, hypoxemia, breast cancer, atrial fibrillation, obesity MEDS and Allergies reviewed and reconciled SOCIAL HISTORY smoker; disabled; recent snf admit Objective WDWN NAD on BIPAP VSS noted reduced breath sounds bilaterally without rhonchi or wheeze [id number] without MRG NABS nontender no HSM no CC mild edema obse nonfocal Labs Test 11/10/18 15:00 11/10/18 15:35 11/10/18 16:30 11/10/18 17:13 White Blood Count 12.8 K/UL (4.8-10.8) Red Blood Count 3.13 M/UL (4.20-5.40) Hemoglobin 8.2 G/DL (12.0-16.0) Hematocrit 27.8 % (37.0-47.0) Mean Corpuscular Volume 89 FL (80-99) Mean Corpuscular Hemoglobin 26.4 PG (27.0-31.0) Mean Corpuscular Hemoglobin Concent 29.7 G/DL (32.0-36.0) Red Cell Distribution Width 16.3 % (11.6-14.8) Platelet Count 201 K/UL (150-450) Mean Platelet Volume 8.1 FL (6.5-10.1) Neutrophils (%) (Auto) % (45.0-75.0) Lymphocytes (%) (Auto) % (20.0-45.0) Monocytes (%) (Auto) % (1.0-10.0) Eosinophils (%) (Auto) % (0.0-3.0) Basophils (%) (Auto) % (0.0-2.0) Differential Total Cells Counted 100 Neutrophils % (Manual) 91 % (45-75) Lymphocytes % (Manual) 5 % (20-45) Monocytes % (Manual) 3 % (1-10) Eosinophils % (Manual) 0 % (0-3) Basophils % (Manual) 0 % (0-2) Band Neutrophils 1 % (0-8) Platelet Estimate Adequate Platelet Morphology Normal Polychromasia 1+ Hypochromasia 2+ Anisocytosis 1+ Sodium Level 142 MMOL/L (136-145) Potassium Level 4.5 MMOL/L (3.5-5.1) Chloride Level 101 MMOL/L (98-107) Carbon Dioxide Level 40 MMOL/L (21-32) Anion Gap 1 mmol/L (5-15) Blood Urea Nitrogen 16 mg/dL (7-18) Creatinine 1.0 MG/DL (0.55-1.30) Estimat Glomerular Filtration Rate > 60 mL/min (>60) Glucose Level 280 MG/DL (74-106) Calcium Level 8.4 MG/DL (8.5-10.1) Total Bilirubin 0.2 MG/DL (0.2-1.0) Aspartate Amino Transf (AST/SGOT) 21 U/L (15-37) Alanine Aminotransferase (ALT/SGPT) 43 U/L (12-78) Alkaline Phosphatase 60 U/L (46-116) Troponin I 0.014 ng/mL (0.000-0.056) Pro-B-Type Natriuretic Peptide 2195 pg/mL (0-125) Total Protein 6.5 G/DL (6.4-8.2) Albumin 2.6 G/DL (3.4-5.0) Globulin 3.9 g/dL Albumin/Globulin Ratio 0.7 (1.0-2.7) Lipase 164 U/L (73-393) Prothrombin Time 9.4 SEC (9.30-11.50) Prothromb Time International Ratio 0.9 (0.9-1.1) Activated Partial Thromboplast Time 21 SEC (23-33) Urine Color Pale yellow Urine Appearance Clear Urine pH 5 (4.5-8.0) Urine Specific [place] 1.020 (1.005-1.035) Urine Protein Negative (NEGATIVE) Urine Glucose (UA) 3+ (NEGATIVE) Urine Ketones Negative (NEGATIVE) Urine Blood Negative (NEGATIVE) Urine Nitrite Negative (NEGATIVE) Urine Bilirubin Negative (NEGATIVE) Urine Urobilinogen Normal MG/DL (0.0-1.0) Urine Leukocyte Esterase Negative (NEGATIVE) Urine RBC 0-2 /HPF (0 - 2) Urine WBC 0-2 /HPF (0 - 2) Urine Squamous Epithelial Cells Occasional /LPF Urine Bacteria Occasional /HPF (NONE) Arterial Blood pH 7.247 (7.350-7.450) Arterial Blood Partial Pressure CO2 112.8 mmHg (35.0-45.0) Arterial Blood Partial Pressure O2 49.5 mmHg (75.0-100.0) Arterial Blood HCO3 48.0 mmol/L (22.0-26.0) Arterial Blood Oxygen Saturation 78.3 % (95-100) Arterial Blood Base Excess 17.4 (-2-2) Rico Test Positive Test 11/10/18 22:30 IMPRESSION acute on chronic respiratory failure hypercapnia COPD with recurrent exacerbation CHF sleep apnea leukocytosis, likely due to steroid use PLAN BIPAP IV steroids respiratory care oxygen monitor ABG prognosis guarded may need ICU care impression, plan, and exam edited and reviewed in detail care discussed with RN Subjective ROS Limited/Unobtainable: No Allergies: Coded Allergies: AMOXICILLIN (Verified Allergy, Mild, RASH HIVES, 09/29/13) ERYTHROMYCIN BASE (Unverified Allergy, Unknown, 10/13/17) IODINE (Verified Allergy, Unknown, 09/29/13) PENICILLINS (Verified Allergy, Unknown, RASH HIVES, 09/29/13) Objective Last 24 Hour Vital Signs Date Time Temp Pulse Resp B/P (MAP) Pulse Ox O2 Delivery O2 Flow Rate FiO2 11/11/18 10:40 75 19 94 Facial 40 11/11/18 08:55 73 16 96 Facial 40 11/11/18 08:00 Bi-pap 11/11/18 08:00 85 11/11/18 08:00 40 11/11/18 08:00 98.1 79 18 142/63 (89) 96 11/11/18 06:45 83 16 95 Full Face 40 11/11/18 04:00 40 11/11/18 04:00 98.6 84 24 156/76 (102) 100 11/11/18 04:00 Bi-pap 11/11/18 03:47 79 11/11/18 01:23 86 11/11/18 00:00 Bi-pap 11/11/18 00:00 98.1 77 20 135/61 (85) 94 11/10/18 21:56 Bi-pap 11/10/18 21:46 77 19 92 Full Face 40 11/10/18 20:00 98.6 74 24 133/68 (89) 100 11/10/18 20:00 Bi-pap 11/10/18 20:00 40 11/10/18 19:45 84 11/10/18 18:54 98.2 82 18 121/67 94 2.0 40 11/10/18 18:54 98.2 81 17 139/75 92 Bi-pap 11/10/18 17:13 79 18 94 Full Face 40 11/10/18 17:00 98.2 82 19 121/67 96 Nasal Cannula 2.0 11/10/18 15:21 85 20 98 Nasal Cannula 3.0 32 11/10/18 15:13 90 22 Nasal Cannula 3.0 32 11/10/18 15:12 90 22 93 Room Air 3.0 32 11/10/18 15:00 97.9 82 18 131/74 96 Nasal Cannula 2.0 11/10/18 15:00 82 18 Nasal Cannula 2.0 96 11/10/18 14:35 98.4 91 20 165/97 100 Non-Rebreather 15.0 Intake and Output 11/10/18 11/11/18 19:00 07:00 Intake Total 0 ml Output Total 1640 ml Balance 0 ml -1640 ml Intake Oral 0 ml Output Urine Total 1640 ml Microbiology Date/Time Source Procedure Growth Status 11/10/18 15:15 Nasal Nares Influenza Types A,B Antigen (MARITZA) - Final Complete Laboratory Tests 11/10/18 15:00: White Blood Count 12.8H, Red Blood Count 3.13L, Hemoglobin 8.2L, Hematocrit 27.8L, Mean Corpuscular Volume 89, Mean Corpuscular Hemoglobin 26.4L, Mean Corpuscular Hemoglobin Concent 29.7L, Red Cell Distribution Width 16.3H, Platelet Count 201, Mean Platelet Volume 8.1, Neutrophils (%) (Auto) , Lymphocytes (%) (Auto) , Monocytes (%) (Auto) , Eosinophils (%) (Auto) , Basophils (%) (Auto) , Differential Total Cells Counted 100, Neutrophils % ( Manual) 91H, Lymphocytes % (Manual) 5L, Monocytes % (Manual) 3, Eosinophils % ( Manual) 0, Basophils % (Manual) 0, Band Neutrophils 1, Platelet Estimate Adequate, Platelet Morphology Normal, Polychromasia 1+, Hypochromasia 2+, Anisocytosis 1+, Sodium Level 142, Potassium Level 4.5, Chloride Level 101, Carbon Dioxide Level 40H, Anion Gap 1L, Blood Urea Nitrogen 16, Creatinine 1.0, Estimat Glomerular Filtration Rate > 60, Glucose Level 280H, Calcium Level 8.4L , Total Bilirubin 0.2, Aspartate Amino Transf (AST/SGOT) 21, Alanine Aminotransferase (ALT/SGPT) 43, Alkaline Phosphatase 60, Troponin I 0.014, Pro-B -Type Natriuretic Peptide 2195H, Total Protein 6.5, Albumin 2.6L, Globulin 3.9, Albumin/Globulin Ratio 0.7L, Lipase 164 11/10/18 15:35: Prothrombin Time 9.4, Prothromb Time International Ratio 0.9, Activated Partial Thromboplast Time 21L 11/10/18 16:30: Urine Color Pale yellow, Urine Appearance Clear, Urine pH 5, Urine Specific [place] 1.020, Urine Protein Negative, Urine Glucose (UA) 3+H, Urine Ketones Negative, Urine Blood Negative, Urine Nitrite Negative, Urine Bilirubin Negative , Urine Urobilinogen Normal, Urine Leukocyte Esterase Negative, Urine RBC 0-2, Urine WBC 0-2, Urine Squamous Epithelial Cells Occasional, Urine Bacteria Occasional 11/10/18 17:13: Arterial Blood pH 7.247*L, Arterial Blood Partial Pressure CO2 112.8*H, Arterial Blood Partial Pressure O2 49.5*L, Arterial Blood HCO3 48.0*H, Arterial Blood Oxygen Saturation 78.3*L, Arterial Blood Base Excess 17.4*H, Rico Test Positive 11/10/18 22:30: Arterial Blood pH 7.286L, Arterial Blood Partial Pressure CO2 104.8*H, Arterial Blood Partial Pressure O2 53.0L, Arterial Blood HCO3 48.8*H, Arterial Blood Oxygen Saturation 82.9*L, Arterial Blood Base Excess 18.8*H, Rico Test Positive 11/11/18 03:35: White Blood Count 7.7, Red Blood Count 3.22L, Hemoglobin 8.3L, Hematocrit 28.5L , Mean Corpuscular Volume 88, Mean Corpuscular Hemoglobin 25.6L, Mean Corpuscular Hemoglobin Concent 29.0L, Red Cell Distribution Width 16.8H, Platelet Count 208, Mean Platelet Volume 8.5, Neutrophils (%) (Auto) , Lymphocytes (%) (Auto) , Monocytes (%) (Auto) , Eosinophils (%) (Auto) , Basophils (%) (Auto) , Differential Total Cells Counted 100, Neutrophils % ( Manual) 90H, Lymphocytes % (Manual) 7L, Monocytes % (Manual) 3, Eosinophils % ( Manual) 0, Basophils % (Manual) 0, Band Neutrophils 0, Platelet Estimate Adequate, Platelet Morphology Normal, Hypochromasia 1+, Anisocytosis 1+, Sodium Level 142, Potassium Level 4.3, Chloride Level 99, Carbon Dioxide Level > 45*H, Blood Urea Nitrogen 18, Creatinine 0.9, Estimat Glomerular Filtration Rate > 60 , Glucose Level 224H, Calcium Level 8.7, Magnesium Level 1.9, Total Bilirubin 0.3, Aspartate Amino Transf (AST/SGOT) 20, Alanine Aminotransferase (ALT/SGPT) 46, Alkaline Phosphatase 59, Troponin I 0.009, Pro-B-Type Natriuretic Peptide 2823H, Total Protein 6.3L, Albumin 2.5L, Globulin 3.8, Albumin/Globulin Ratio 0.7L Current Medications Medications (Trade) Dose Ordered Sig/Sera Route PRN Reason Start Time Stop Time Status Last Admin Dose Admin Acetazolamide (Diamox) 250 mg TWICE A DAY ORAL 11/11/18 09:00 12/11/18 08:59 11/11/18 09:26 Dextrose (Dextrose 50%) 25 ml Q30M PRN IV Hypoglycemia 11/10/18 21:00 12/10/18 20:59 Dextrose (Dextrose 50%) 50 ml Q30M PRN IV Hypoglycemia 11/10/18 21:00 12/10/18 20:59 Fluticasone Propionate (Flonase) 1 spray TWICE A DAY NASAL 11/11/18 09:00 12/11/18 08:59 11/11/18 09:27 Furosemide (Lasix) 40 mg EVERY 12 HOURS IV 11/10/18 21:00 12/10/18 20:59 11/11/18 09:26 Heparin Sodium (Porcine) (Heparin 5000 units/ml) 5,000 units EVERY 12 HOURS SUBQ 11/10/18 21:00 12/10/18 20:59 11/11/18 09:28 Insulin Aspart (NovoLOG) BEFORE MEALS AND HS SUBQ 11/10/18 21:00 12/10/18 20:59 11/11/18 06:08 Nystatin (Nystatin) 5 ml Q12HR ORAL 11/11/18 09:00 11/18/18 08:59 11/11/18 09:26 Pantoprazole (Protonix) 40 mg DAILY ORAL 11/11/18 09:00 12/11/18 08:59 11/11/18 09:26 Prednisone (predniSONE) 20 mg DAILY ORAL 11/11/18 09:00 12/11/18 08:59 11/11/18 09:26 Promethazine HCl/ Dextromethorphan (Phenergan DM) 6.25 mg Q6H PRN ORAL For Cough 11/10/18 21:00 12/10/18 20:59 Sildenafil Citrate (Revatio) 20 mg BID ORAL 11/11/18 09:00 12/11/18 08:59 11/11/18 09:26 Tramadol HCl (Ultram) 50 mg Q8H PRN ORAL pain 11/10/18 21:00 11/17/18 20:59 Werner Crump MD Nov 11, 2018 11:32
[2018-11-11 12:00] VITALS: BP 129/63
[2018-11-11] MEDS: Promethazine/DM 6.25mg/5ml ORAL PRN (14:56)
[2018-11-11 16:00] VITALS: BP 126/52
--- NOTE | 2018-11-11 17:34 | Cardiology Report ---
APPROVED REPORT EKG Measurement Heart [id number] Normal sinus rhythm Possible Left atrial enlargement Prolonged QT Abnormal ECG
--- NOTE | 2018-11-11 19:05 | NUR ---
HAND-OFF: Report given to Manuel Logan RN.
--- NOTE | 2018-11-11 19:06 | NUR ---
NURSE NOTES: Report received from CYNDY Ordonez. Patient seen in bed in flanagan position with bipap with setting of 15/4, back rate 5, 40% fi02. Patient is alert, verbally responsive, able to make needs known. Denies any pain at this time. Lee cath is intact, urine is draining. IV site to right AC 20G is intact. Bed is in lowest position. Call light is within reach. Will continue to monitor.
--- NOTE | 2018-11-11 19:29 | NUR ---
CASE MANAGEMENT: REVIEW 58/F BIBA FROM [facility] CC: RESP DISTRESS SI: COPD EXACERBATION T 98.2 HR 82 RR 17 BP 139/75 SAT 92% BIPAP FIO2 40 WBC 12.8 H/H 8.2/27.8 ABG: PH 7.247 PCO2 112.8 PO2 49.5 HCO3 48.0 O2 SAT 78.3 IS: ALBUTEROL HHN X1 SOLU MEDROL IV X1 MAG SULFATE IV X1 LASIX IV X1 PATIENT ADMITTED TO STEP DOWN UNIT 11/10/2018 DCP: PATIENT IS FROM [facility]
[2018-11-11 20:00] VITALS: BP 137/70
--- NOTE | 2018-11-11 20:20 | NUR ---
NURSE NOTES: Patient complained of headache. Dr Downey made aware with PRN acetaminophen order.
[2018-11-12] VITALS: BP 123/59
[2018-11-12] MEDS: Promethazine/DM 6.25mg/5ml ORAL PRN ×3 (01:11→20:14)
[2018-11-12] MEDS: traMADol 50mg tab ORAL PRN ×3 (02:19→22:31)
--- NOTE | 2018-11-12 03:45 | Progress Note ---
DATE: 11/11/2018 CARDIOLOGY PROGRESS NOTE SUBJECTIVE: The patient remains congested and short of breath with wheezing. OBJECTIVE: VITAL SIGNS: Blood pressure 137/70, heart rate 73, and respiratory rate 22. She is on BiPAP support. LUNGS: Diminished breath sounds. Scattered rhonchi. Expiratory wheezes. HEART: Regular rhythm and rate. Normal S1, S2. Fourth heart sound. ABDOMEN: Soft. EXTREMITIES: Trace edema. LABORATORY DATA: White count 7.7 and hemoglobin 8.3. Sodium 142, potassium 4.3, bicarbonate 45, BUN 18, and creatinine 0.9. Troponin negative. Pro-natriuretic peptide 2800, and albumin 2.5. IMPRESSION: 1. Chronic obstructive pulmonary disease exacerbation. 2. Acute bronchospasm. 3. Acute on chronic respiratory acidosis. 4. Compensatory metabolic alkalosis. 5. Acute on chronic diastolic congestive heart failure. 6. Hypertensive heart disease. 7. Pulmonary hypertension. PLAN: 1. Diuresis. 2. Acetazolamide for acidification, i.e., correction of metabolic alkalosis. 3. Bronchodilators. 4. Intravenous steroids. 5. DVT prophylaxis. 6. Echocardiogram to evaluate PA systolic pressure. Werner Martinez M.D. DR: DARREN JOB#: [id number] CC:
[2018-11-12 04:00] VITALS: BP 149/75
[2018-11-12 06:07] LABS: ALANINE AMINOTRANSFERASE 72 U/L (12-78); ALBUMIN 2.7 G/DL (3.4-5.0); ALBUMIN/GLOBULIN RATIO 0.7 (1.0-2.7); ALKALINE PHOSPHATASE 65 U/L (46-116); ANION GAP 1 mmol/L (5-15); ASPARTATE AMINO TRANSFERASE 48 U/L (15-37); BILIRUBIN,TOTAL 0.2 MG/DL (0.2-1.0); BLOOD UREA NITROGEN 19 mg/dL (7-18); CALCIUM 8.6 MG/DL (8.5-10.1); CARBON DIOXIDE 40 MMOL/L (21-32); CHLORIDE 99 MMOL/L (98-107); CREATININE 1.1 MG/DL (0.55-1.30); SODIUM 141 MMOL/L (136-145)
[2018-11-12] MEDS: NovoLOG Insulin Flexpen SUBQ SCH ×4 (06:30→20:05)
--- NOTE | 2018-11-12 07:11 | NUR ---
RESPIRATORY NOTE:Received pt on bipap 15/4 40% fio2. pt has facial mask on with tape in place. no signs of redness or skin breakdown. pt awake and alert. will cont. to monitor pt.
--- NOTE | 2018-11-12 07:25 | NUR ---
HAND-OFF: Report given to Cindy Metz RN.
--- NOTE | 2018-11-12 07:32 | General Progress Note ---
Assessment/Plan Problem List: (1) Hypoxia ICD Codes: R09.02 - Hypoxia SNOMED: 947883266 (2) Acute dyspnea (3) Hypertension, malignant ICD Codes: I10 - Hypertension, malignant SNOMED: 07007433 (4) CHF (5) Toxic metabolic encephalopathy ICD Codes: G92 - Toxic encephalopathy SNOMED: 384217152 (6) COPD exacerbation ICD Codes: J44.1 - COPD exacerbation SNOMED: 738444913 Status: stable, progressing Assessment/Plan continuous bipap steroids diuretics resp rx monitor abg cardiac rx monitor bs LTAC once stable/improved Subjective ROS Limited/Unobtainable: No Constitutional: Reports: malaise, weakness HEENT: Reports: no symptoms Cardiovascular: Reports: no symptoms Respiratory: Reports: cough, shortness of breath Gastrointestinal/Abdominal: Reports: no symptoms Genitourinary: Reports: no symptoms Neurologic/Psychiatric: Reports: no symptoms Endocrine: Reports: no symptoms Hematologic/Lymphatic: Reports: no symptoms Allergies: Coded Allergies: AMOXICILLIN (Verified Allergy, Mild, RASH HIVES, 09/29/13) ERYTHROMYCIN BASE (Unverified Allergy, Unknown, 10/13/17) IODINE (Verified Allergy, Unknown, 09/29/13) PENICILLINS (Verified Allergy, Unknown, RASH HIVES, 09/29/13) All Systems: reviewed and negative except above Subjective remains on continuous bipap. per night nurse not always compliant with keeping the mask on but wore it most of the night, ABG is improving. Objective Last 24 Hour Vital Signs Date Time Temp Pulse Resp B/P (MAP) Pulse Ox O2 Delivery O2 Flow Rate FiO2 11/12/18 05:24 72 18 99 Facial 40 11/12/18 04:00 Bi-pap 11/12/18 04:00 40 11/12/18 04:00 97.7 76 21 149/75 (99) 98 11/12/18 03:27 74 11/12/18 03:20 68 16 99 Facial 40 11/12/18 01:07 77 18 100 Facial 40 11/12/18 00:00 74 11/12/18 00:00 98.7 79 20 123/59 (80) 98 11/12/18 00:00 Bi-pap 11/11/18 23:22 75 18 99 Facial 40 11/11/18 21:30 72 18 98 Facial 40 11/11/18 20:00 40 11/11/18 20:00 72 11/11/18 20:00 Bi-pap 11/11/18 20:00 98.1 73 22 137/70 (92) 98 11/11/18 19:57 79 20 96 Facial 40 11/11/18 16:30 77 19 98 Facial 40 11/11/18 16:00 Bi-pap 11/11/18 16:00 97.7 77 18 126/52 (76) 97 11/11/18 16:00 40 11/11/18 16:00 76 11/11/18 15:20 81 19 96 Facial 40 11/11/18 13:22 83 19 95 Facial 40 11/11/18 12:00 74 11/11/18 12:00 40 11/11/18 12:00 Bi-pap 11/11/18 12:00 97.9 77 16 129/63 (85) 97 11/11/18 10:40 75 19 94 Facial 40 11/11/18 08:55 73 16 96 Facial 40 11/11/18 08:00 Bi-pap 11/11/18 08:00 85 11/11/18 08:00 40 11/11/18 08:00 98.1 79 18 142/63 (89) 96 Intake and Output 11/11/18 11/12/18 19:00 07:00 Intake Total 60 ml Output Total 3200 ml 2150 ml Balance -3200 ml -2090 ml Intake Oral 60 ml Output Urine Total 3200 ml 2150 ml Laboratory Tests 11/11/18 18:50: Arterial Blood pH 7.368, Arterial Blood Partial Pressure CO2 83.7*H, Arterial Blood Partial Pressure O2 79.2, Arterial Blood HCO3 47.1*H, Arterial Blood Oxygen Saturation 94.4L, Arterial Blood Base Excess 18.8*H, Rico Test Positive 11/12/18 03:00: Sodium Level 141, Potassium Level 4.0, Chloride Level 99, Carbon Dioxide Level 40H, Anion Gap 1L, Blood Urea Nitrogen 19H, Creatinine 1.1, Estimat Glomerular Filtration Rate > 60, Glucose Level 90#, Calcium Level 8.6, Magnesium Level 2.0 , Total Bilirubin 0.2, Aspartate Amino Transf (AST/SGOT) 48H, Alanine Aminotransferase (ALT/SGPT) 72, Alkaline Phosphatase 65, Total Protein 6.8, Albumin 2.7L, Globulin 4.1, Albumin/Globulin Ratio 0.7L Height (Feet): 5 Height (Inches): 1.00 Weight (Pounds): 206 General Appearance: WD/WN, alert Neck: supple Cardiovascular: regular rhythm Respiratory/Chest: expiratory wheezing Abdomen: normal bowel sounds, non tender, no organomegaly Edema: no edema noted Arm (L), no edema noted Arm (R), no edema noted Leg (L), no edema noted Leg (R), no edema noted Pedal (L), no edema noted Pedal (R), no edema noted Generalized 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
[2018-11-12 08:00] VITALS: BP 156/86
--- NOTE | 2018-11-12 08:10 | NUR ---
NURSE NOTES: received pt in the bed, awake, alert, oriented, vital signs stable, no co pain, pt on Bipap 15/4, FIO2 40%, skin warm and dry to touch, intact, abdomen soft, tolerate diet well, bed in low position, call light within reach.
--- NOTE | 2018-11-12 08:15 | NUR ---
RESPIRATORY NOTE:Placed pt on 4L n/c per CYNDY White, so pt can have breakfast and then place pt back on bipap after she is finish with breakfast. Pt has no s/s of distress at this time and will cont. to monitor pt.
[2018-11-12] MEDS: Nystatin Susp 500,000 units/5ml ORAL SCH ×2 (08:33→20:03)
[2018-11-12] MEDS: Revatio 20mg tab ORAL SCH ×2 (08:33→17:37)
[2018-11-12] MEDS: Flonase Nasal Inhaler 16gm NASAL SCH ×2 (08:34→17:36)
[2018-11-12] MEDS: Heparin 5000 units/ml inj SUBQ SCH ×2 (08:35→20:06)
[2018-11-12 12:00] VITALS: BP 116/82
--- NOTE | 2018-11-12 13:35 | NUR ---
NURSE NOTES: pt still on Bipap, vital signs stable, no co pain, bed bath given, continue monitoring.
[2018-11-12 16:00] VITALS: BP 156/80
--- NOTE | 2018-11-12 19:20 | NUR ---
NURSE NOTES: Received pt. from Franci RN, pt. in bed awake, pt. is A/O x's4- able to make needs known, no signs or symptoms of acute cardiac or respiratory distress noted, pt. appears to be tolerating current BIPAP settings at 15/5 Fio2 at 40%- no respiratory distress noted, bed in lowest position and call light within easy reach, bed alarm on, side rails up x's 3- safety brakes engaged, pt. appears to be resting comfortably, pt. is clean and dry, Lee intact and draining to gravity, Left AC 20G IV intact and patent, safety measures continued, will continue with plan of care.
--- NOTE | 2018-11-12 19:23 | NUR ---
HAND-OFF: Report given to PAULINE NAYLOR.
[2018-11-12 20:00] VITALS: BP 148/67
--- NOTE | 2018-11-12 20:05 | Pulmonology Progress Note ---
Assessment/Plan Assessment/Plan IMPRESSION acute on chronic respiratory failure hypercapnia COPD with recurrent exacerbation CHF sleep apnea leukocytosis, likely due to steroid use PLAN BIPAP IV steroids respiratory care oxygen monitor ABG for change prognosis guarded improved co2 levels noted; senior care prognosis very poor impression, plan, and exam edited and reviewed in detail care discussed with RN Subjective Allergies: Coded Allergies: AMOXICILLIN (Verified Allergy, Mild, RASH HIVES, 09/29/13) ERYTHROMYCIN BASE (Unverified Allergy, Unknown, 10/13/17) IODINE (Verified Allergy, Unknown, 09/29/13) PENICILLINS (Verified Allergy, Unknown, RASH HIVES, 09/29/13) Subjective better still retaining CO2 significantly BIPAP Objective Last 24 Hour Vital Signs Date Time Temp Pulse Resp B/P (MAP) Pulse Ox O2 Delivery O2 Flow Rate FiO2 11/12/18 16:48 74 18 97 Facial 40 11/12/18 16:00 Bi-pap 11/12/18 16:00 40 11/12/18 16:00 97.7 75 18 156/80 (105) 99 11/12/18 15:38 76 11/12/18 14:42 97.9 11/12/18 14:31 78 22 96 Facial 40 11/12/18 12:00 Bi-pap 11/12/18 12:00 40 11/12/18 12:00 97.9 76 16 116/82 (93) 93 11/12/18 12:00 77 11/12/18 11:11 82 16 94 Facial 40 11/12/18 09:10 85 16 95 Facial 40 11/12/18 08:00 40 11/12/18 08:00 Bi-pap 11/12/18 08:00 97.5 81 22 156/86 (109) 97 11/12/18 07:47 69 11/12/18 07:06 71 16 98 Facial 40 11/12/18 05:24 72 18 99 Facial 40 11/12/18 04:00 Bi-pap 11/12/18 04:00 40 11/12/18 04:00 97.7 76 21 149/75 (99) 98 11/12/18 03:27 74 11/12/18 03:20 68 16 99 Facial 40 11/12/18 01:07 77 18 100 Facial 40 11/12/18 00:00 74 11/12/18 00:00 98.7 79 20 123/59 (80) 98 11/12/18 00:00 Bi-pap 11/11/18 23:22 75 18 99 Facial 40 11/11/18 21:30 72 18 98 Facial 40 Intake and Output 11/11/18 11/12/18 19:00 07:00 Intake Total 60 ml Output Total 3200 ml 2150 ml Balance -3200 ml -2090 ml Intake Oral 60 ml Output Urine Total 3200 ml 2150 ml Objective WDWN on oxygen /bipap reduced breath sounds bilaterally without rhonchi or wheeze [id number] without MRG distant NABS nontender obese no CC edema nonfocal Microbiology Date/Time Source Procedure Growth Status 11/10/18 16:30 Nasal Nares Left MRSA Culture - Final NO METHICILLIN RESISTANT STAPH AUREUS... Complete 11/10/18 15:15 Nasal Nares Influenza Types A,B Antigen (MARITZA) - Final Complete 11/10/18 16:30 Rectum VRE Culture - Final NO VANCOMYCIN RESISTANT ENTEROCOCCUS ... Complete 11/10/18 16:30 Rectum - Final NO CARBAPENEM-RESISTANT ENTEROBACTERI... Complete Laboratory Tests 11/12/18 03:00: Sodium Level 141, Potassium Level 4.0, Chloride Level 99, Carbon Dioxide Level 40H, Anion Gap 1L, Blood Urea Nitrogen 19H, Creatinine 1.1, Estimat Glomerular Filtration Rate > 60, Glucose Level 90#, Calcium Level 8.6, Magnesium Level 2.0 , Total Bilirubin 0.2, Aspartate Amino Transf (AST/SGOT) 48H, Alanine Aminotransferase (ALT/SGPT) 72, Alkaline Phosphatase 65, Total Protein 6.8, Albumin 2.7L, Globulin 4.1, Albumin/Globulin Ratio 0.7L Current Medications Medications (Trade) Dose Ordered Sig/Sera Route PRN Reason Start Time Stop Time Status Last Admin Dose Admin Acetaminophen (Tylenol) 650 mg Q4H PRN ORAL Mild Pain/Temp > 100.5 11/11/18 20:15 12/11/18 20:14 11/12/18 01:11 Acetazolamide (Diamox) 250 mg TWICE A DAY ORAL 11/11/18 09:00 12/11/18 08:59 11/12/18 17:37 Dextrose (Dextrose 50%) 25 ml Q30M PRN IV Hypoglycemia 11/10/18 21:00 12/10/18 20:59 Dextrose (Dextrose 50%) 50 ml Q30M PRN IV Hypoglycemia 11/10/18 21:00 12/10/18 20:59 Fluticasone Propionate (Flonase) 1 spray TWICE A DAY NASAL 11/11/18 09:00 12/11/18 08:59 11/12/18 17:36 Furosemide (Lasix) 40 mg EVERY 12 HOURS IV 11/10/18 21:00 12/10/18 20:59 11/12/18 08:33 Heparin Sodium (Porcine) (Heparin 5000 units/ml) 5,000 units EVERY 12 HOURS SUBQ 11/10/18 21:00 12/10/18 20:59 11/12/18 08:35 Insulin Aspart (NovoLOG) BEFORE MEALS AND HS SUBQ 11/10/18 21:00 12/10/18 20:59 11/12/18 16:30 Nystatin (Nystatin) 5 ml Q12HR ORAL 11/11/18 09:00 11/18/18 08:59 11/12/18 08:33 Pantoprazole (Protonix) 40 mg DAILY ORAL 11/11/18 09:00 12/11/18 08:59 11/12/18 08:33 Prednisone (predniSONE) 20 mg DAILY ORAL 11/11/18 09:00 12/11/18 08:59 11/12/18 08:33 Promethazine HCl/ Dextromethorphan (Phenergan DM) 6.25 mg Q6H PRN ORAL For Cough 11/10/18 21:00 12/10/18 20:59 11/12/18 14:12 Sildenafil Citrate (Revatio) 20 mg BID ORAL 11/11/18 09:00 12/11/18 08:59 11/12/18 17:37 Tramadol HCl (Ultram) 50 mg Q8H PRN ORAL pain 11/10/18 21:00 11/17/18 20:59 11/12/18 14:12 Froilan Caruso MD Nov 12, 2018 20:05
[2018-11-13] VITALS: BP 137/72
[2018-11-13 04:00] VITALS: BP 119/51
--- NOTE | 2018-11-13 04:09 | NUR ---
NURSE NOTES: Pt. complaining of itching all over her body and requesting Benadryl- pt. states she is not having an allergic reaction, but would like Benadryl for itching- left msg for DR. Downey- awaiting for call back from doctor. Pt. remains stable.
--- NOTE | 2018-11-13 05:00 | Progress Note ---
DATE: 11/12/2018 CARDIOLOGY PROGRESS NOTE SUBJECTIVE: The patient is slightly better, but still has abnormal ABGs. She is congested on BiPAP. OBJECTIVE: VITAL SIGNS: Blood pressure 156/80, pulse 75, and respirations 18. LUNGS: With bilateral breath sounds, diminished at bases and few expiratory wheezes. HEART: Regular rhythm and rate. Normal S1, S2 with a fourth heart sound. EXTREMITIES: No edema. LABORATORY AND DIAGNOSTIC DATA: Echocardiogram revealed no elevation in PA systolic pressure. Sodium 141, potassium 4, bicarbonate 40, BUN 19, and creatinine 1.1. Albumin 2.7. A venous duplex scan was negative for DVT. IMPRESSION: 1. Chronic obstructive pulmonary disease exacerbation. 2. Acute bronchospasm. 3. Acute on chronic diastolic congestive heart failure. 4. Hypertensive heart disease. 5. Acute on chronic respiratory acidosis. 6. Compensatory metabolic alkalosis. PLAN: 1. Diuresis efforts. 2. Continue acetazolamide to help correct acid-base abnormalities. 3. Bronchodilators. 4. Steroids with taper as tolerated. 5. Respiratory hygiene. 6. BiPAP support. 7. Consideration for full anticoagulation should there be evidence of recurring atrial arrhythmias. Werner Martinez M.D. DR: MODE JOB#: [id number] CC:
[2018-11-13] MEDS: DiphenhydrAMINE 50mg/ml Inj IVP PRN ×2 (05:42→20:42)
[2018-11-13] MEDS: NovoLOG Insulin Flexpen SUBQ SCH ×4 (06:20→20:44)
--- NOTE | 2018-11-13 07:00 | NUR ---
RESPIRATORY NOTE: received patient on BIPAP skin intact, tape is intact to prevent skin breakdown. Settings 15/4 , pressure support:11, backup rate 16, FiO2: 40%. Patient is comfortable no signs of distress.
--- NOTE | 2018-11-13 07:02 | General Progress Note ---
Assessment/Plan Problem List: (1) Hypoxia ICD Codes: R09.02 - Hypoxia SNOMED: 874954507 (2) Acute dyspnea (3) Hypertension, malignant ICD Codes: I10 - Hypertension, malignant SNOMED: 99306351 (4) CHF (5) Toxic metabolic encephalopathy ICD Codes: G92 - Toxic encephalopathy SNOMED: 231342087 (6) COPD exacerbation ICD Codes: J44.1 - COPD exacerbation SNOMED: 747245406 Status: stable, progressing Assessment/Plan continuous bipap steroids diuretics resp rx monitor abg cardiac rx monitor bs LTAC once stable/improved Subjective ROS Limited/Unobtainable: No Constitutional: Reports: malaise, weakness HEENT: Reports: no symptoms Cardiovascular: Reports: no symptoms Respiratory: Reports: cough, shortness of breath Gastrointestinal/Abdominal: Reports: no symptoms Genitourinary: Reports: no symptoms Neurologic/Psychiatric: Reports: no symptoms Endocrine: Reports: no symptoms Hematologic/Lymphatic: Reports: no symptoms Allergies: Coded Allergies: AMOXICILLIN (Verified Allergy, Mild, RASH HIVES, 09/29/13) ERYTHROMYCIN BASE (Unverified Allergy, Unknown, 10/13/17) IODINE (Verified Allergy, Unknown, 09/29/13) PENICILLINS (Verified Allergy, Unknown, RASH HIVES, 09/29/13) All Systems: reviewed and negative except above Subjective remains on continuous bipap. no new complaints. itching. no chest pain compliant with bipap. Objective Last 24 Hour Vital Signs Date Time Temp Pulse Resp B/P (MAP) Pulse Ox O2 Delivery O2 Flow Rate FiO2 11/13/18 05:01 80 18 100 Facial 40 11/13/18 04:00 Bi-pap 11/13/18 04:00 98.4 73 16 119/51 (73) 100 11/13/18 04:00 40 11/13/18 03:45 72 11/13/18 03:06 74 20 98 Facial 40 11/13/18 01:09 74 17 100 Facial 40 11/13/18 00:00 Bi-pap 11/13/18 00:00 40 11/13/18 00:00 97.6 79 20 137/72 (93) 98 11/12/18 23:54 73 11/12/18 23:01 97.6 11/12/18 22:30 80 21 100 Facial 40 11/12/18 22:10 85 18 10 11/12/18 20:40 74 16 99 Facial 40 11/12/18 20:00 40 11/12/18 20:00 Bi-pap 11/12/18 20:00 97.9 72 18 148/67 (94) 100 11/12/18 19:25 76 18 97 Facial 40 11/12/18 19:25 83 11/12/18 16:48 74 18 97 Facial 40 11/12/18 16:00 Bi-pap 11/12/18 16:00 40 11/12/18 16:00 97.7 75 18 156/80 (105) 99 11/12/18 15:38 76 11/12/18 14:31 78 22 96 Facial 40 11/12/18 12:00 Bi-pap 11/12/18 12:00 40 11/12/18 12:00 97.9 76 16 116/82 (93) 93 11/12/18 12:00 77 11/12/18 11:11 82 16 94 Facial 40 11/12/18 09:10 85 16 95 Facial 40 11/12/18 08:00 40 11/12/18 08:00 Bi-pap 11/12/18 08:00 97.5 81 22 156/86 (109) 97 11/12/18 07:47 69 11/12/18 07:06 71 16 98 Facial 40 Intake and Output 11/12/18 11/13/18 18:59 06:59 Intake Total 400 ml Output Total 1400 ml 500 ml Balance -1000 ml -500 ml Intake Oral 400 ml Output Urine Total 1400 ml 500 ml # Bowel Movements 1 Height (Feet): 5 Height (Inches): 1.00 Weight (Pounds): 206 Objective General Appearance: WD/WN, alert Neck: supple Cardiovascular: regular rhythm Respiratory/Chest: expiratory wheezing Abdomen: normal bowel sounds, non tender, no organomegaly Edema: no edema noted Arm (L), no edema noted Arm (R), no edema noted Leg (L), no edema noted Leg (R), no edema noted Pedal (L), no edema noted Pedal (R), no edema noted Generalized Neurologic: chiller operator II-XII grossly normal, alert, oriented x 3 Floyd Downey MD Nov 13, 2018 07:02
--- NOTE | 2018-11-13 07:06 | NUR ---
HAND-OFF: Report given to Monica Rn, pt. remains stable and no signs of distress noted.
--- NOTE | 2018-11-13 07:07 | NUR ---
NURSE NOTES: Received patient from CYNDY Harrington. Patient in bed, awake, and alert. On bipap. loan review manager in placed. Lee is in placed for retention. IV site is asymptomatic. Bed in lowest position with side rails up. Will continue to follow plan of care.
[2018-11-13 08:00] VITALS: BP 157/99
[2018-11-13] MEDS: Nystatin Susp 500,000 units/5ml ORAL SCH ×2 (08:15→20:41)
[2018-11-13] MEDS: Revatio 20mg tab ORAL SCH ×2 (08:16→17:15)
[2018-11-13] MEDS: Heparin 5000 units/ml inj SUBQ SCH ×2 (08:17→20:43)
[2018-11-13] MEDS: Flonase Nasal Inhaler 16gm NASAL SCH ×2 (08:30→17:15)
--- NOTE | 2018-11-13 09:09 | Cardiology Report ---
APPROVED REPORT EXAM: Two-dimensional and M-mode echocardiogram with Doppler and color Doppler. INDICATION CHRON PULMONARY HEART DIS M-Mode DIMENSIONS IVSd1.3 (0.7-1.1cm)Left Atrium (MM)3.4 (1.6-4.0cm) LVDd4.4 (3.5-5.6cm)Aortic Root2.8 (2.0-3.7cm) PWd3.1 (0.7-1.1cm)Aortic Cusp Exc.1.7 (1.5-2.0cm) IVSs1.0 cm LVDs1.0 (2.5-4.0cm) Normal left ventricular chamber size, systolic function and wall motion . Left ventricular ejection fraction estimated to be 55%. Mild left ventricular hypertrophy by 2-D . Mild left atrial enlargement . Right cardiac chamber sizes are within normal limits. Focal aortic valve sclerosis with adequate cusp excursion. Thickened mitral valve leaflets with normal cusp excursion. Mitral annulus and aortic root calcification. Pulmonic valve not well visualized. IVC at normal size with physiologic collapse . A color flow and spectral Doppler study was performed and revealed: No aortic insufficiency . Normal left ventricular diastolic function . Moderate mitral regurgitation. Mild tricuspid regurgitation. Tricuspid systolic velocities suggests peak right ventricular systolic pressure of 23mmHg Trace pulmonic regurgitation
[2018-11-13] MEDS: traMADol 50mg tab ORAL PRN (09:44)
[2018-11-13 12:00] VITALS: BP 137/73
[2018-11-13 16:00] VITALS: BP 146/73
--- NOTE | 2018-11-13 16:37 | Pulmonology Progress Note ---
Assessment/Plan Assessment/Plan Pulmonary Progress Note HPI Patient is a 58 year old female with endstage COPD with recent discharge for respiratory failure readmitted with similar symptoms and worsening CO2 retention. patient seen in the ER and admitted. Care reviewed in detail. Patient well known to me and care reviewed in detail. no fevers or chills. cough noted. mild sputum production findings reviewed in detail. ER notes reviewed in detail PMH COPD, CHF, JUAN JOSE, diabetes, hypertension, respiratory failure, hypoxemia, breast cancer, atrial fibrillation, obesity MEDS and Allergies reviewed and reconciled SOCIAL HISTORY smoker; disabled; recent snf admit Objective WDWN NAD on BIPAP VSS noted reduced breath sounds bilaterally without rhonchi or wheeze [id number] without MRG NABS nontender no HSM no CC mild edema obse nonfocal Labs Test 11/10/18 15:00 11/10/18 15:35 11/10/18 16:30 11/10/18 17:13 White Blood Count 12.8 K/UL (4.8-10.8) Red Blood Count 3.13 M/UL (4.20-5.40) Hemoglobin 8.2 G/DL (12.0-16.0) Hematocrit 27.8 % (37.0-47.0) Mean Corpuscular Volume 89 FL (80-99) Mean Corpuscular Hemoglobin 26.4 PG (27.0-31.0) Mean Corpuscular Hemoglobin Concent 29.7 G/DL (32.0-36.0) Red Cell Distribution Width 16.3 % (11.6-14.8) Platelet Count 201 K/UL (150-450) Mean Platelet Volume 8.1 FL (6.5-10.1) Neutrophils (%) (Auto) % (45.0-75.0) Lymphocytes (%) (Auto) % (20.0-45.0) Monocytes (%) (Auto) % (1.0-10.0) Eosinophils (%) (Auto) % (0.0-3.0) Basophils (%) (Auto) % (0.0-2.0) Differential Total Cells Counted 100 Neutrophils % (Manual) 91 % (45-75) Lymphocytes % (Manual) 5 % (20-45) Monocytes % (Manual) 3 % (1-10) Eosinophils % (Manual) 0 % (0-3) Basophils % (Manual) 0 % (0-2) Band Neutrophils 1 % (0-8) Platelet Estimate Adequate Platelet Morphology Normal Polychromasia 1+ Hypochromasia 2+ Anisocytosis 1+ Sodium Level 142 MMOL/L (136-145) Potassium Level 4.5 MMOL/L (3.5-5.1) Chloride Level 101 MMOL/L (98-107) Carbon Dioxide Level 40 MMOL/L (21-32) Anion Gap 1 mmol/L (5-15) Blood Urea Nitrogen 16 mg/dL (7-18) Creatinine 1.0 MG/DL (0.55-1.30) Estimat Glomerular Filtration Rate > 60 mL/min (>60) Glucose Level 280 MG/DL (74-106) Calcium Level 8.4 MG/DL (8.5-10.1) Total Bilirubin 0.2 MG/DL (0.2-1.0) Aspartate Amino Transf (AST/SGOT) 21 U/L (15-37) Alanine Aminotransferase (ALT/SGPT) 43 U/L (12-78) Alkaline Phosphatase 60 U/L (46-116) Troponin I 0.014 ng/mL (0.000-0.056) Pro-B-Type Natriuretic Peptide 2195 pg/mL (0-125) Total Protein 6.5 G/DL (6.4-8.2) Albumin 2.6 G/DL (3.4-5.0) Globulin 3.9 g/dL Albumin/Globulin Ratio 0.7 (1.0-2.7) Lipase 164 U/L (73-393) Prothrombin Time 9.4 SEC (9.30-11.50) Prothromb Time International Ratio 0.9 (0.9-1.1) Activated Partial Thromboplast Time 21 SEC (23-33) Urine Color Pale yellow Urine Appearance Clear Urine pH 5 (4.5-8.0) Urine Specific [place] 1.020 (1.005-1.035) Urine Protein Negative (NEGATIVE) Urine Glucose (UA) 3+ (NEGATIVE) Urine Ketones Negative (NEGATIVE) Urine Blood Negative (NEGATIVE) Urine Nitrite Negative (NEGATIVE) Urine Bilirubin Negative (NEGATIVE) Urine Urobilinogen Normal MG/DL (0.0-1.0) Urine Leukocyte Esterase Negative (NEGATIVE) Urine RBC 0-2 /HPF (0 - 2) Urine WBC 0-2 /HPF (0 - 2) Urine Squamous Epithelial Cells Occasional /LPF Urine Bacteria Occasional /HPF (NONE) Arterial Blood pH 7.247 (7.350-7.450) Arterial Blood Partial Pressure CO2 112.8 mmHg (35.0-45.0) Arterial Blood Partial Pressure O2 49.5 mmHg (75.0-100.0) Arterial Blood HCO3 48.0 mmol/L (22.0-26.0) Arterial Blood Oxygen Saturation 78.3 % (95-100) Arterial Blood Base Excess 17.4 (-2-2) Rico Test Positive Test 11/10/18 22:30 IMPRESSION acute on chronic respiratory failure hypercapnia COPD with recurrent exacerbation CHF sleep apnea leukocytosis, likely due to steroid use PLAN BIPAP IV steroids respiratory care oxygen monitor ABG prognosis guarded may need ICU care impression, plan, and exam edited and reviewed in detail care discussed with RN Subjective ROS Limited/Unobtainable: No Allergies: Coded Allergies: AMOXICILLIN (Verified Allergy, Mild, RASH HIVES, 09/29/13) ERYTHROMYCIN BASE (Unverified Allergy, Unknown, 10/13/17) IODINE (Verified Allergy, Unknown, 09/29/13) PENICILLINS (Verified Allergy, Unknown, RASH HIVES, 09/29/13) Objective Last 24 Hour Vital Signs Date Time Temp Pulse Resp B/P (MAP) Pulse Ox O2 Delivery O2 Flow Rate FiO2 11/13/18 15:05 70 17 99 Full Face 40 11/13/18 12:00 40 11/13/18 12:00 78 11/13/18 12:00 Bi-pap 11/13/18 12:00 98.1 78 17 137/73 (94) 94 11/13/18 11:15 81 18 98 Facial 40 11/13/18 09:17 85 21 99 Facial 40 11/13/18 08:00 Bi-pap 11/13/18 08:00 40 11/13/18 08:00 98.1 84 17 157/99 (118) 98 11/13/18 07:43 86 11/13/18 07:14 91 22 99 Facial 40 11/13/18 05:01 80 18 100 Facial 40 11/13/18 04:00 Bi-pap 11/13/18 04:00 98.4 73 16 119/51 (73) 100 11/13/18 04:00 40 11/13/18 03:45 72 11/13/18 03:06 74 20 98 Facial 40 11/13/18 01:09 74 17 100 Facial 40 11/13/18 00:00 Bi-pap 11/13/18 00:00 40 11/13/18 00:00 97.6 79 20 137/72 (93) 98 11/12/18 23:54 73 11/12/18 23:01 97.6 11/12/18 22:30 80 21 100 Facial 40 11/12/18 22:10 85 18 10 11/12/18 20:40 74 16 99 Facial 40 11/12/18 20:00 40 11/12/18 20:00 Bi-pap 11/12/18 20:00 97.9 72 18 148/67 (94) 100 11/12/18 19:25 76 18 97 Facial 40 11/12/18 19:25 83 11/12/18 16:48 74 18 97 Facial 40 Intake and Output 11/12/18 11/13/18 19:00 07:00 Intake Total 400 ml Output Total 1400 ml 500 ml Balance -1000 ml -500 ml Intake Oral 400 ml Output Urine Total 1400 ml 500 ml # Bowel Movements 1 Current Medications Medications (Trade) Dose Ordered Sig/Sera Route PRN Reason Start Time Stop Time Status Last Admin Dose Admin Acetaminophen (Tylenol) 650 mg Q4H PRN ORAL Mild Pain/Temp > 100.5 11/11/18 20:15 12/11/18 20:14 11/13/18 15:44 Acetazolamide (Diamox) 250 mg TWICE A DAY ORAL 11/11/18 09:00 12/11/18 08:59 11/13/18 08:15 Dextrose (Dextrose 50%) 25 ml Q30M PRN IV Hypoglycemia 11/10/18 21:00 12/10/18 20:59 Dextrose (Dextrose 50%) 50 ml Q30M PRN IV Hypoglycemia 11/10/18 21:00 12/10/18 20:59 Diphenhydramine HCl (Benadryl) 25 mg Q6H PRN IVP Itching 11/13/18 04:30 12/13/18 04:29 11/13/18 05:42 Diphenhydramine HCl (Benadryl) 25 mg Q6H PRN ORAL Itching 11/13/18 04:30 3/3/19 04:29 11/13/18 09:43 Fluticasone Propionate (Flonase) 1 spray TWICE A DAY NASAL 11/11/18 09:00 12/11/18 08:59 11/13/18 08:30 Furosemide (Lasix) 40 mg EVERY 12 HOURS IV 11/10/18 21:00 12/10/18 20:59 11/13/18 08:16 Heparin Sodium (Porcine) (Heparin 5000 units/ml) 5,000 units EVERY 12 HOURS SUBQ 11/10/18 21:00 12/10/18 20:59 11/13/18 08:17 Insulin Aspart (NovoLOG) BEFORE MEALS AND HS SUBQ 11/10/18 21:00 12/10/18 20:59 11/13/18 11:09 Nystatin (Nystatin) 5 ml Q12HR ORAL 11/11/18 09:00 11/18/18 08:59 11/13/18 08:15 Pantoprazole (Protonix) 40 mg DAILY ORAL 11/11/18 09:00 12/11/18 08:59 11/13/18 08:15 Prednisone (predniSONE) 20 mg DAILY ORAL 11/11/18 09:00 12/11/18 08:59 11/13/18 08:15 Promethazine HCl/ Dextromethorphan (Phenergan DM) 6.25 mg Q6H PRN ORAL For Cough 11/10/18 21:00 12/10/18 20:59 11/12/18 20:14 Sildenafil Citrate (Revatio) 20 mg BID ORAL 11/11/18 09:00 12/11/18 08:59 11/13/18 08:16 Tramadol HCl (Ultram) 50 mg Q8H PRN ORAL pain 11/10/18 21:00 11/17/18 20:59 11/13/18 09:44 Werner Crump MD Nov 13, 2018 16:37
--- NOTE | 2018-11-13 19:01 | NUR ---
HAND-OFF: Report given to CYNDY Leung. Patient stable and in no distress.
--- NOTE | 2018-11-13 19:03 | NUR ---
RESPIRATORY NOTE: Received pt on current bipap setting with foam tape underneath full face mask. Pt has no s/s of respiratory distress. Bipap is plugged into red outlet. Alarms are on and audible. Will continue to monitor pt's progress.
--- NOTE | 2018-11-13 19:28 | NUR ---
NURSE NOTES: Received patient from CYNDY CASTILLO. Patient is sitting up in bed, alert and oriented x4. Patient shows no signs and symptoms of pain and distress. On BiPAP 115/4 40% and saturating at 98%. Lee catheter is in tact and draining due to retention. Will continue plan of care.
[2018-11-13 20:00] VITALS: BP 152/82
[2018-11-13] MEDS: Promethazine/DM 6.25mg/5ml ORAL PRN (20:46)
[2018-11-14] VITALS: BP 136/80
[2018-11-14 04:00] VITALS: BP 143/84
[2018-11-14] MEDS: NovoLOG Insulin Flexpen SUBQ SCH ×4 (06:09→20:11)
--- NOTE | 2018-11-14 07:08 | NUR ---
HAND-OFF: Report given to CYNDY Skinner. Patient is stable.
--- NOTE | 2018-11-14 07:09 | NUR ---
NURSE NOTES: Patient received from CYNDY Leung. Patient in bed and asleep. On bipap 15/4 40% and no respiratory distress. advertising display rotator in placed. Lee in placed, intact and draining via gravity. IV site is asymptomatic. Call light within reach. Bed in lowest position with side rails up. Will continue to follow plan of care.
[2018-11-14 08:00] VITALS: BP 133/71
[2018-11-14] MEDS: Nystatin Susp 500,000 units/5ml ORAL SCH ×2 (08:33→20:09)
[2018-11-14] MEDS: Flonase Nasal Inhaler 16gm NASAL SCH ×2 (08:33→17:32)
[2018-11-14] MEDS: Revatio 20mg tab ORAL SCH ×2 (08:33→17:32)
[2018-11-14] MEDS: Heparin 5000 units/ml inj SUBQ SCH ×2 (08:34→20:11)
--- NOTE | 2018-11-14 10:43 | General Progress Note ---
Assessment/Plan Problem List: (1) Hypoxia ICD Codes: R09.02 - Hypoxia SNOMED: 240329210 (2) Acute dyspnea (3) Hypertension, malignant ICD Codes: I10 - Hypertension, malignant SNOMED: 11449392 (4) CHF (5) Toxic metabolic encephalopathy ICD Codes: G92 - Toxic encephalopathy SNOMED: 703663961 (6) COPD exacerbation ICD Codes: J44.1 - COPD exacerbation SNOMED: 504015691 Status: stable, progressing Assessment/Plan continuous bipap steroids diuretics resp rx monitor abg cardiac rx monitor bs LTAC once stable/improved Subjective ROS Limited/Unobtainable: No Constitutional: Reports: malaise, weakness HEENT: Reports: no symptoms Cardiovascular: Reports: no symptoms Respiratory: Reports: cough, shortness of breath Gastrointestinal/Abdominal: Reports: no symptoms Genitourinary: Reports: no symptoms Neurologic/Psychiatric: Reports: no symptoms Endocrine: Reports: no symptoms Hematologic/Lymphatic: Reports: no symptoms Allergies: Coded Allergies: AMOXICILLIN (Verified Allergy, Mild, RASH HIVES, 09/29/13) ERYTHROMYCIN BASE (Unverified Allergy, Unknown, 10/13/17) IODINE (Verified Allergy, Unknown, 09/29/13) PENICILLINS (Verified Allergy, Unknown, RASH HIVES, 09/29/13) All Systems: reviewed and negative except above Subjective remains on continuous bipap. no new complaints. less sob. more appropriate. no chest pain no fever or chills. compliant with rx. Objective Last 24 Hour Vital Signs Date Time Temp Pulse Resp B/P (MAP) Pulse Ox O2 Delivery O2 Flow Rate FiO2 11/14/18 09:00 Bi-pap 11/14/18 08:00 103 11/14/18 08:00 4.0 11/14/18 08:00 98.2 84 16 133/71 (91) 100 11/14/18 07:00 74 16 99 Full Face 40 11/14/18 05:09 83 18 100 Full Face 40 11/14/18 04:00 86 11/14/18 04:00 40 11/14/18 04:00 97.7 88 18 143/84 (103) 99 11/14/18 01:14 74 17 100 Full Face 40 11/14/18 00:00 40 11/14/18 00:00 84 11/14/18 00:00 97.7 85 18 136/80 (98) 99 11/13/18 23:33 79 18 100 Full Face 40 11/13/18 21:01 77 20 99 Full Face 40 11/13/18 21:00 Bi-pap 11/13/18 20:00 97.3 71 17 152/82 (105) 100 11/13/18 20:00 40 11/13/18 19:43 75 11/13/18 19:00 80 16 98 Full Face 40 11/13/18 16:00 Bi-pap 11/13/18 16:00 98.1 77 16 146/73 (97) 97 11/13/18 16:00 40 11/13/18 15:48 80 11/13/18 15:05 70 17 99 Full Face 40 11/13/18 12:00 40 11/13/18 12:00 78 11/13/18 12:00 Bi-pap 11/13/18 12:00 98.1 78 17 137/73 (94) 94 11/13/18 11:15 81 18 98 Facial 40 Intake and Output 11/13/18 11/14/18 18:59 06:59 Intake Total 300 ml 150 ml Output Total 700 ml 1500 ml Balance -400 ml -1350 ml Intake Oral 300 ml 150 ml Output Urine Total 700 ml 1500 ml Height (Feet): 5 Height (Inches): 1.00 Weight (Pounds): 206 Objective General Appearance: WD/WN, alert Neck: supple Cardiovascular: regular rhythm Respiratory/Chest: expiratory wheezing Abdomen: normal bowel sounds, non tender, no organomegaly Edema: no edema noted Arm (L), no edema noted Arm (R), no edema noted Leg (L), no edema noted Leg (R), no edema noted Pedal (L), no edema noted Pedal (R), no edema noted Generalized Neurologic: drafter civil (cad) II-XII grossly normal, alert, oriented x 3 Floyd Downey MD Nov 14, 2018 10:43
[2018-11-14 12:00] VITALS: BP 136/73
--- NOTE | 2018-11-14 12:20 | Pulmonology Progress Note ---
Assessment/Plan Assessment/Plan IMPRESSION acute on chronic respiratory failure hypercapnia COPD with recurrent exacerbation CHF sleep apnea leukocytosis, likely due to steroid use PLAN BIPAP QHS IV steroids taper respiratory care oxygen monitor ABG for change prognosis guarded improved co2 levels noted; jail prognosis very poor dc planning smoking abstinence impression, plan, and exam edited and reviewed in detail care discussed with RN Subjective Allergies: Coded Allergies: AMOXICILLIN (Verified Allergy, Mild, RASH HIVES, 09/29/13) ERYTHROMYCIN BASE (Unverified Allergy, Unknown, 10/13/17) IODINE (Verified Allergy, Unknown, 09/29/13) PENICILLINS (Verified Allergy, Unknown, RASH HIVES, 09/29/13) Subjective more alert off BIPAP Objective Last 24 Hour Vital Signs Date Time Temp Pulse Resp B/P (MAP) Pulse Ox O2 Delivery O2 Flow Rate FiO2 11/14/18 09:00 Bi-pap 11/14/18 08:00 103 11/14/18 08:00 4.0 11/14/18 08:00 98.2 84 16 133/71 (91) 100 11/14/18 07:00 74 16 99 Full Face 40 11/14/18 05:09 83 18 100 Full Face 40 11/14/18 04:00 86 11/14/18 04:00 40 11/14/18 04:00 97.7 88 18 143/84 (103) 99 11/14/18 01:14 74 17 100 Full Face 40 11/14/18 00:00 40 11/14/18 00:00 84 11/14/18 00:00 97.7 85 18 136/80 (98) 99 11/13/18 23:33 79 18 100 Full Face 40 11/13/18 21:01 77 20 99 Full Face 40 11/13/18 21:00 Bi-pap 11/13/18 20:00 97.3 71 17 152/82 (105) 100 11/13/18 20:00 40 11/13/18 19:43 75 11/13/18 19:00 80 16 98 Full Face 40 11/13/18 16:00 Bi-pap 11/13/18 16:00 98.1 77 16 146/73 (97) 97 11/13/18 16:00 40 11/13/18 15:48 80 11/13/18 15:05 70 17 99 Full Face 40 Intake and Output 11/13/18 11/14/18 19:00 07:00 Intake Total 300 ml 150 ml Output Total 700 ml 1500 ml Balance -400 ml -1350 ml Intake Oral 300 ml 150 ml Output Urine Total 700 ml 1500 ml Objective WDWN on oxygen /bipap reduced breath sounds bilaterally without rhonchi or wheeze [id number] without MRG distant NABS nontender obese no CC edema nonfocal more alert and comfortable Current Medications Medications (Trade) Dose Ordered Sig/Sera Route PRN Reason Start Time Stop Time Status Last Admin Dose Admin Acetaminophen (Tylenol) 650 mg Q4H PRN ORAL Mild Pain/Temp > 100.5 11/11/18 20:15 12/11/18 20:14 11/13/18 15:44 Acetazolamide (Diamox) 250 mg TWICE A DAY ORAL 11/11/18 09:00 12/11/18 08:59 11/14/18 08:33 Dextrose (Dextrose 50%) 25 ml Q30M PRN IV Hypoglycemia 11/10/18 21:00 12/10/18 20:59 Dextrose (Dextrose 50%) 50 ml Q30M PRN IV Hypoglycemia 11/10/18 21:00 12/10/18 20:59 Diphenhydramine HCl (Benadryl) 25 mg Q6H PRN IVP Itching 11/13/18 04:30 12/13/18 04:29 11/13/18 20:42 Diphenhydramine HCl (Benadryl) 25 mg Q6H PRN ORAL Itching 11/13/18 04:30 12/13/18 04:29 11/13/18 17:15 Fluticasone Propionate (Flonase) 1 spray TWICE A DAY NASAL 11/11/18 09:00 12/11/18 08:59 11/14/18 08:33 Furosemide (Lasix) 40 mg EVERY 12 HOURS IV 11/10/18 21:00 12/10/18 20:59 11/14/18 08:33 Heparin Sodium (Porcine) (Heparin 5000 units/ml) 5,000 units EVERY 12 HOURS SUBQ 11/10/18 21:00 12/10/18 20:59 11/14/18 08:34 Insulin Aspart (NovoLOG) BEFORE MEALS AND HS SUBQ 11/10/18 21:00 12/10/18 20:59 11/14/18 11:31 Nystatin (Nystatin) 5 ml Q12HR ORAL 11/11/18 09:00 11/18/18 08:59 11/14/18 08:33 Pantoprazole (Protonix) 40 mg DAILY ORAL 11/11/18 09:00 12/11/18 08:59 11/14/18 08:33 Prednisone (predniSONE) 20 mg DAILY ORAL 11/11/18 09:00 12/11/18 08:59 11/14/18 08:33 Promethazine HCl/ Dextromethorphan (Phenergan DM) 6.25 mg Q6H PRN ORAL For Cough 11/10/18 21:00 12/10/18 20:59 11/13/18 20:46 Sildenafil Citrate (Revatio) 20 mg BID ORAL 11/11/18 09:00 12/11/18 08:59 11/14/18 08:33 Tramadol HCl (Ultram) 50 mg Q8H PRN ORAL pain 11/10/18 21:00 11/17/18 20:59 11/13/18 09:44 Froilan Caruso MD Nov 14, 2018 12:20
[2018-11-14 13:02] LABS: BASOPHILS % (AUTO) 0.9 % (0.0-2.0); EOSINOPHILS % (AUTO) 0.2 % (0.0-3.0); HEMATOCRIT 34.6 % (37.0-47.0); HEMOGLOBIN 10.3 G/DL (12.0-16.0); MEAN CORPUSCULAR VOLUME 86 FL (80-99); MONOCYTES % (AUTO) 5.6 % (1.0-10.0); NEUTROPHILS % (AUTO) 83.3 % (45.0-75.0); PLATELET COUNT 252 K/UL (150-450); RED BLOOD COUNT 4.03 M/UL (4.20-5.40); RED CELL DISTRIBUTION WIDTH 15.8 % (11.6-14.8)
[2018-11-14 13:12] LABS: ALANINE AMINOTRANSFERASE 52 U/L (12-78); ALBUMIN/GLOBULIN RATIO 0.7 (1.0-2.7); ALKALINE PHOSPHATASE 69 U/L (46-116); ANION GAP 6 mmol/L (5-15); ASPARTATE AMINO TRANSFERASE 16 U/L (15-37); BILIRUBIN,TOTAL 0.2 MG/DL (0.2-1.0); BLOOD UREA NITROGEN 29 mg/dL (7-18); CALCIUM 9.4 MG/DL (8.5-10.1); CARBON DIOXIDE 36 MMOL/L (21-32); CHLORIDE 98 MMOL/L (98-107); CREATININE 1.1 MG/DL (0.55-1.30); POTASSIUM 3.8 MMOL/L (3.5-5.1); SODIUM 139 MMOL/L (136-145)
--- NOTE | 2018-11-14 14:17 | NUR ---
NURSE NOTES: Informed Dr. Downey for WBC 13.0 and no new order.
[2018-11-14 16:00] VITALS: BP 145/66
--- NOTE | 2018-11-14 19:04 | NUR ---
HAND-OFF: Report given to CYNDY Leung. Patient stable.
--- NOTE | 2018-11-14 19:05 | NUR ---
NURSE NOTES: Received patient from CYNDY CASTILLO. Patient is on 4L nasal cannula and showing no signs and symptoms of pain and/or distress. Will continue plan of care.
[2018-11-14 20:00] VITALS: BP 137/65
--- NOTE | 2018-11-14 23:39 | NUR ---
NURSE NOTES: Patient is sleeping comfortably on 4L nasal cannula and saturating at 100%. Showing no signs of distress. Vital signs are stable, patient repositioned, and all needs are met.
[2018-11-15] VITALS: BP 128/62
[2018-11-15 04:00] VITALS: BP 144/71
[2018-11-15] MEDS: NovoLOG Insulin Flexpen SUBQ SCH ×4 (05:46→20:15)
--- NOTE | 2018-11-15 07:08 | NUR ---
HAND-OFF: Report given to CYNDY CASTILLO.
--- NOTE | 2018-11-15 07:09 | NUR ---
NURSE NOTES: Received patient from CYNDY Leung. Patient in bed and asleep. Currently on bipap. Not showing any respiratory distress. cardiac technologist in placed. Lee catheter in placed and draining via gravity. IV site is asymptomatic. Bed in lowest position with side rails up. Will continue to follow plan of care.
[2018-11-15 08:00] VITALS: BP 129/67
[2018-11-15] MEDS: Revatio 20mg tab ORAL SCH ×2 (08:19→17:16)
[2018-11-15] MEDS: Nystatin Susp 500,000 units/5ml ORAL SCH ×2 (08:19→21:00)
[2018-11-15] MEDS: Heparin 5000 units/ml inj SUBQ SCH ×2 (08:21→20:14)
[2018-11-15] MEDS: Flonase Nasal Inhaler 16gm NASAL SCH ×2 (08:22→17:16)
--- NOTE | 2018-11-15 09:08 | General Progress Note ---
Assessment/Plan Problem List: (1) Hypoxia ICD Codes: R09.02 - Hypoxia SNOMED: 249346966 (2) Acute dyspnea (3) Hypertension, malignant ICD Codes: I10 - Hypertension, malignant SNOMED: 93038082 (4) CHF (5) Toxic metabolic encephalopathy ICD Codes: G92 - Toxic encephalopathy SNOMED: 214455734 (6) COPD exacerbation ICD Codes: J44.1 - COPD exacerbation SNOMED: 169165627 Status: stable, progressing Assessment/Plan continuous bipap steroids diuretics resp rx monitor abg cardiac rx monitor bs LTAC once stable/improved Subjective ROS Limited/Unobtainable: No Constitutional: Reports: weakness HEENT: Reports: no symptoms Cardiovascular: Reports: no symptoms Respiratory: Reports: cough, shortness of breath Gastrointestinal/Abdominal: Reports: no symptoms Genitourinary: Reports: no symptoms Neurologic/Psychiatric: Reports: no symptoms Endocrine: Reports: no symptoms Hematologic/Lymphatic: Reports: no symptoms Allergies: Coded Allergies: AMOXICILLIN (Verified Allergy, Mild, RASH HIVES, 09/29/13) ERYTHROMYCIN BASE (Unverified Allergy, Unknown, 10/13/17) IODINE (Verified Allergy, Unknown, 09/29/13) PENICILLINS (Verified Allergy, Unknown, RASH HIVES, 09/29/13) All Systems: reviewed and negative except above Subjective remains on continuous bipap at night and during the day.off the eat. no new complaints. less sob. more appropriate. no chest pain no fever or chills. compliant with rx. Objective Last 24 Hour Vital Signs Date Time Temp Pulse Resp B/P (MAP) Pulse Ox O2 Delivery O2 Flow Rate FiO2 11/15/18 08:00 97.7 81 18 129/67 (87) 97 11/15/18 05:05 78 17 100 Full Face 50 11/15/18 04:00 40 11/15/18 04:00 98.1 84 16 144/71 (95) 100 11/15/18 03:35 76 11/15/18 02:43 91 16 94 Full Face 50 11/15/18 00:56 89 99 11/15/18 00:00 4.0 11/15/18 00:00 98.7 82 16 128/62 (84) 100 11/14/18 23:36 81 11/14/18 22:44 85 95 2/2/19 21:00 Bi-pap 11/14/18 20:58 93 96 11/14/18 20:00 40 11/14/18 20:00 88 11/14/18 20:00 98.8 90 20 137/65 (89) 100 11/14/18 19:19 89 18 95 Full Face 50 11/14/18 16:32 90 11/14/18 16:00 98.9 86 20 145/66 (92) 97 11/14/18 16:00 4.0 11/14/18 13:46 87 11/14/18 12:00 4.0 11/14/18 12:00 98.5 90 19 136/73 (94) 94 Intake and Output 11/14/18 11/15/18 18:59 06:59 Intake Total 280 ml 200 ml Output Total 100 ml 1900 ml Balance 180 ml -1700 ml Intake Oral 280 ml 200 ml Output Urine Total 100 ml 1900 ml Laboratory Tests 11/14/18 11:25: White Blood Count 13.0H, Red Blood Count 4.03L, Hemoglobin 10.3L, Hematocrit 34.6L, Mean Corpuscular Volume 86, Mean Corpuscular Hemoglobin 25.5L, Mean Corpuscular Hemoglobin Concent 29.7L, Red Cell Distribution Width 15.8H, Platelet Count 252, Mean Platelet Volume 8.8, Neutrophils (%) (Auto) 83.3H, Lymphocytes (%) (Auto) 10.0L, Monocytes (%) (Auto) 5.6, Eosinophils (%) (Auto) 0.2, Basophils (%) (Auto) 0.9, Sodium Level 139, Potassium Level 3.8, Chloride Level 98, Carbon Dioxide Level 36H, Anion Gap 6, Blood Urea Nitrogen 29H, Creatinine 1.1, Estimat Glomerular Filtration Rate > 60, Glucose Level 236H, Calcium Level 9.4, Total Bilirubin 0.2, Aspartate Amino Transf (AST/SGOT) 16, Alanine Aminotransferase (ALT/SGPT) 52, Alkaline Phosphatase 69, Total Protein 7.1, Albumin 3.0L, Globulin 4.1, Albumin/Globulin Ratio 0.7L Height (Feet): 5 Height (Inches): 1.00 Weight (Pounds): 206 Objective General Appearance: WD/WN, alert Neck: supple Cardiovascular: regular rhythm Respiratory/Chest: expiratory wheezing Abdomen: normal bowel sounds, non tender, no organomegaly Edema: no edema noted Arm (L), no edema noted Arm (R), no edema noted Leg (L), no edema noted Leg (R), no edema noted Pedal (L), no edema noted Pedal (R), no edema noted Generalized 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
[2018-11-15] MEDS: traMADol 50mg tab ORAL PRN (10:00)
[2018-11-15 12:00] VITALS: BP 144/77
--- NOTE | 2018-11-15 13:56 | Pulmonology Progress Note ---
Assessment/Plan Assessment/Plan IMPRESSION acute on chronic respiratory failure hypercapnia COPD with recurrent exacerbation CHF sleep apnea leukocytosis, likely due to steroid use PLAN BIPAP QHS IV steroids taper to prednisone respiratory care oxygen monitor ABG for change prognosis guarded with poor lung fucntion improved co2 levels noted; assisted prognosis very poor dc planning to home vs rehab smoking abstinence impression, plan, and exam edited and reviewed in detail care discussed with RN Subjective Allergies: Coded Allergies: AMOXICILLIN (Verified Allergy, Mild, RASH HIVES, 09/29/13) ERYTHROMYCIN BASE (Unverified Allergy, Unknown, 10/13/17) IODINE (Verified Allergy, Unknown, 09/29/13) PENICILLINS (Verified Allergy, Unknown, RASH HIVES, 09/29/13) Subjective remains alert comfortable on oxygen off BIPAP Objective Last 24 Hour Vital Signs Date Time Temp Pulse Resp B/P (MAP) Pulse Ox O2 Delivery O2 Flow Rate FiO2 11/15/18 12:00 4.0 11/15/18 12:00 98.1 91 20 144/77 (99) 97 11/15/18 11:50 93 11/15/18 09:00 Nasal Cannula 4.0 11/15/18 08:00 4.0 11/15/18 08:00 97.7 81 18 129/67 (87) 97 11/15/18 07:47 81 11/15/18 05:05 78 17 100 Full Face 50 11/15/18 04:00 40 11/15/18 04:00 98.1 84 16 144/71 (95) 100 11/15/18 03:35 76 11/15/18 02:43 91 16 94 Full Face 50 11/15/18 00:56 89 99 11/15/18 00:00 4.0 11/15/18 00:00 98.7 82 16 128/62 (84) 100 11/14/18 23:36 81 11/14/18 22:44 85 95 11/14/18 21:00 Bi-pap 11/14/18 20:58 93 96 11/14/18 20:00 40 11/14/18 20:00 88 11/14/18 20:00 98.8 90 20 137/65 (89) 100 11/14/18 19:19 89 18 95 Full Face 50 11/14/18 16:32 90 2/2/19 16:00 98.9 86 20 145/66 (92) 97 11/14/18 16:00 4.0 Intake and Output 11/14/18 11/15/18 18:59 06:59 Intake Total 280 ml 200 ml Output Total 100 ml 1900 ml Balance 180 ml -1700 ml Intake Oral 280 ml 200 ml Output Urine Total 100 ml 1900 ml Objective WDWN on oxygen /bipap reduced breath sounds bilaterally without rhonchi or wheeze [id number] without MRG distant NABS nontender obese no CC edema nonfocal more alert and comfortable Current Medications Medications (Trade) Dose Ordered Sig/Sera Route PRN Reason Start Time Stop Time Status Last Admin Dose Admin Acetaminophen (Tylenol) 650 mg Q4H PRN ORAL Mild Pain/Temp > 100.5 11/11/18 20:15 12/11/18 20:14 11/13/18 15:44 Acetazolamide (Diamox) 250 mg TWICE A DAY ORAL 11/11/18 09:00 12/11/18 08:59 11/15/18 08:19 Dextrose (Dextrose 50%) 25 ml Q30M PRN IV Hypoglycemia 11/10/18 21:00 12/10/18 20:59 Dextrose (Dextrose 50%) 50 ml Q30M PRN IV Hypoglycemia 11/10/18 21:00 12/10/18 20:59 Diphenhydramine HCl (Benadryl) 25 mg Q6H PRN IVP Itching 11/13/18 04:30 12/13/18 04:29 11/13/18 20:42 Diphenhydramine HCl (Benadryl) 25 mg Q6H PRN ORAL Itching 11/13/18 04:30 12/13/18 04:29 11/13/18 17:15 Fluticasone Propionate (Flonase) 1 spray TWICE A DAY NASAL 11/11/18 09:00 12/11/18 08:59 11/15/18 08:22 Furosemide (Lasix) 40 mg EVERY 12 HOURS IV 11/10/18 21:00 12/10/18 20:59 11/15/18 08:19 Heparin Sodium (Porcine) (Heparin 5000 units/ml) 5,000 units EVERY 12 HOURS SUBQ 11/10/18 21:00 12/10/18 20:59 11/15/18 08:21 Insulin Aspart (NovoLOG) BEFORE MEALS AND HS SUBQ 11/10/18 21:00 12/10/18 20:59 11/15/18 11:22 Nystatin (Nystatin) 5 ml Q12HR ORAL 11/11/18 09:00 11/18/18 08:59 11/15/18 08:19 Pantoprazole (Protonix) 40 mg DAILY ORAL 11/11/18 09:00 12/11/18 08:59 11/15/18 08:18 Prednisone (predniSONE) 20 mg DAILY ORAL 11/11/18 09:00 12/11/18 08:59 11/15/18 08:19 Promethazine HCl/ Dextromethorphan (Phenergan DM) 6.25 mg Q6H PRN ORAL For Cough 11/10/18 21:00 12/10/18 20:59 11/13/18 20:46 Sildenafil Citrate (Revatio) 20 mg BID ORAL 11/11/18 09:00 12/11/18 08:59 11/15/18 08:19 Tramadol HCl (Ultram) 50 mg Q8H PRN ORAL pain 11/10/18 21:00 11/17/18 20:59 11/15/18 10:00 Froilan Caruso MD Nov 15, 2018 13:56
[2018-11-15 16:00] VITALS: BP 145/72
--- NOTE | 2018-11-15 17:30 | NUR ---
TRANSFER TO FLOOR: Patient transferred to Telemetry, per Dr. Downey. Report given to CYNDY Anderson. Belongings are with the patient and medications given to CYNDY Anderson. Patient stable and in no apparent distress.
--- NOTE | 2018-11-15 17:56 | NUR ---
NURSE NOTES: Received report from CYNDY Skinner. Patient arrived to unit in stable condition. No s/sx of SOB, breathing is even and unlabored. Denies any presence of pain or discomfort at this time. Bed is in lowest position, brakes engaged. Call light is kept within easy reach. Will continue to monitor patient.
--- NOTE | 2018-11-15 19:15 | NUR ---
HAND-OFF: Report given to CYNDY Logan.
--- NOTE | 2018-11-15 19:16 | NUR ---
NURSE NOTES: Report received from CYNDY Anderson. patient seen in bed in flanagan position watching TV. Patient is alert, verbally responsive, able to make needs known. Currently on oxygen 4L/min wia NC with no acute respiratory distress noted. Denies any pain at this time. Noted with Lee cath and is intact, urine is draining. IV site to right hand is intact. Bed is in lowest position. Call light is within easy reach. Will continue to monitor.
[2018-11-15 20:00] VITALS: BP 135/60
[2018-11-15] MEDS: Promethazine/DM 6.25mg/5ml ORAL PRN (20:26)
[2018-11-15] MEDS: DiphenhydrAMINE 50mg/ml Inj IVP PRN (20:26)
[2018-11-16] VITALS: BP 147/67
[2018-11-16 04:00] VITALS: BP 158/77
[2018-11-16] MEDS: NovoLOG Insulin Flexpen SUBQ SCH ×4 (05:46→20:47)
--- NOTE | 2018-11-16 07:26 | NUR ---
HAND-OFF: Report given to CYNDY Alvarenga .
--- NOTE | 2018-11-16 07:37 | NUR ---
NURSE NOTES: Received report from Luke moreno. pt is sitting up in bed eating. No distress noted. Bed is in lowest position, side rails up X2, and call light is within reach. Will continue to monitor.
--- NOTE | 2018-11-16 07:47 | Pulmonology Progress Note ---
Assessment/Plan Assessment/Plan IMPRESSION acute on chronic respiratory failure hypercapnia COPD with recurrent exacerbation CHF sleep apnea leukocytosis, likely due to steroid use PLAN BIPAP QHS PO prednisone respiratory care oxygen monitor ABG for change prognosis guarded with poor lung fucntion dc planning to home vs rehab smoking abstinence discussed impression, plan, and exam edited and reviewed in detail care discussed with RN Subjective Allergies: Coded Allergies: AMOXICILLIN (Verified Allergy, Mild, RASH HIVES, 09/29/13) ERYTHROMYCIN BASE (Unverified Allergy, Unknown, 10/13/17) IODINE (Verified Allergy, Unknown, 09/29/13) PENICILLINS (Verified Allergy, Unknown, RASH HIVES, 09/29/13) Subjective remains stable comfortable on oxygen off BIPAP Objective Last 24 Hour Vital Signs Date Time Temp Pulse Resp B/P (MAP) Pulse Ox O2 Delivery O2 Flow Rate FiO2 11/16/18 04:30 80 20 100 Full Face 50 11/16/18 04:00 97.9 80 16 158/77 (104) 98 11/16/18 04:00 40 11/16/18 03:46 84 11/16/18 03:23 78 18 98 11/16/18 01:36 72 19 100 Full Face 50 11/16/18 00:00 98.1 80 20 147/67 (93) 98 11/15/18 23:41 81 11/15/18 23:00 75 18 100 Full Face 50 11/15/18 21:52 82 11/15/18 21:00 Nasal Cannula 4.0 11/15/18 21:00 40 11/15/18 20:00 98.7 84 20 135/60 (85) 98 11/15/18 16:17 88 20 Nasal Cannula 3.0 32 11/15/18 16:00 4.0 11/15/18 16:00 97.9 88 20 145/72 (96) 99 11/15/18 15:43 85 11/15/18 12:00 4.0 11/15/18 12:00 98.1 91 20 144/77 (99) 97 11/15/18 11:50 93 11/15/18 09:00 Nasal Cannula 4.0 11/15/18 08:00 4.0 11/15/18 08:00 97.7 81 18 129/67 (87) 97 11/15/18 07:47 81 Intake and Output 11/15/18 11/16/18 19:00 07:00 Intake Total 200 ml 770 ml Output Total 1500 ml 1700 ml Balance -1300 ml -930 ml Intake Oral 200 ml 770 ml Output Urine Total 1500 ml 1700 ml Objective WDWN on oxygen /bipap reduced breath sounds bilaterally without rhonchi or wheeze [id number] without MRG distant NABS nontender obese no CC edema nonfocal more alert and comfortable Current Medications Medications (Trade) Dose Ordered Sig/Sera Route PRN Reason Start Time Stop Time Status Last Admin Dose Admin Acetaminophen (Tylenol) 650 mg Q4H PRN ORAL Mild Pain/Temp > 100.5 11/15/18 20:15 12/11/18 20:14 11/15/18 20:28 Acetazolamide (Diamox) 250 mg TWICE A DAY ORAL 11/16/18 09:00 12/16/18 08:59 Dextrose (Dextrose 50%) 25 ml Q30M PRN IV Hypoglycemia 11/15/18 18:00 12/10/18 20:59 Dextrose (Dextrose 50%) 50 ml Q30M PRN IV Hypoglycemia 11/15/18 18:00 12/10/18 20:59 Diphenhydramine HCl (Benadryl) 25 mg Q6H PRN IVP Itching 11/15/18 18:00 12/13/18 17:59 11/15/18 20:26 Diphenhydramine HCl (Benadryl) 25 mg Q6H PRN ORAL Itching 11/15/18 22:30 12/13/18 04:29 Fluticasone Propionate (Flonase) 1 spray TWICE A DAY NASAL 11/16/18 09:00 12/16/18 08:59 Furosemide (Lasix) 40 mg EVERY 12 HOURS IV 11/15/18 21:00 12/10/18 20:59 11/15/18 20:13 Heparin Sodium (Porcine) (Heparin 5000 units/ml) 5,000 units EVERY 12 HOURS SUBQ 11/15/18 21:00 12/10/18 20:59 11/15/18 20:14 Insulin Aspart (NovoLOG) BEFORE MEALS AND HS SUBQ 11/15/18 21:00 12/10/18 20:59 11/16/18 05:46 Nystatin (Nystatin) 5 ml Q12HR ORAL 11/15/18 21:00 11/18/18 08:59 11/15/18 21:00 Pantoprazole (Protonix) 40 mg DAILY ORAL 11/16/18 09:00 12/11/18 08:59 Prednisone (predniSONE) 20 mg DAILY ORAL 11/16/18 09:00 12/11/18 08:59 Promethazine HCl/ Dextromethorphan (Phenergan DM) 6.25 mg Q6H PRN ORAL For Cough 11/15/18 18:00 12/10/18 17:59 11/15/18 20:26 Sildenafil Citrate (Revatio) 20 mg BID ORAL 11/16/18 09:00 12/16/18 08:59 Tramadol HCl (Ultram) 50 mg Q8H PRN ORAL pain 11/15/18 18:00 11/17/18 17:59 Froilan Caruso MD Nov 16, 2018 07:47
[2018-11-16 08:03] VITALS: BP 141/66
[2018-11-16] MEDS: Nystatin Susp 500,000 units/5ml ORAL SCH ×2 (08:11→20:43)
[2018-11-16] MEDS: Revatio 20mg tab ORAL SCH ×2 (08:12→17:39)
[2018-11-16] MEDS: Flonase Nasal Inhaler 16gm NASAL SCH ×2 (08:13→17:39)
[2018-11-16] MEDS: Heparin 5000 units/ml inj SUBQ SCH ×2 (08:15→20:44)
--- NOTE | 2018-11-16 08:15 | General Progress Note ---
Assessment/Plan Problem List: (1) Hypoxia ICD Codes: R09.02 - Hypoxia SNOMED: 319384569 (2) Acute dyspnea (3) Hypertension, malignant ICD Codes: I10 - Hypertension, malignant SNOMED: 67907389 (4) CHF (5) Toxic metabolic encephalopathy ICD Codes: G92 - Toxic encephalopathy SNOMED: 856133779 (6) COPD exacerbation ICD Codes: J44.1 - COPD exacerbation SNOMED: 666232482 Status: stable, progressing Assessment/Plan continuous bipap steroids diuretics resp rx monitor abg cardiac rx monitor bs topical lidoderm LTAC once stable/improved Subjective Allergies: Coded Allergies: AMOXICILLIN (Verified Allergy, Mild, RASH HIVES, 09/29/13) ERYTHROMYCIN BASE (Unverified Allergy, Unknown, 10/13/17) IODINE (Verified Allergy, Unknown, 09/29/13) PENICILLINS (Verified Allergy, Unknown, RASH HIVES, 09/29/13) Subjective remains on continuous bipap at night and during the day.off the eat. no new complaints. less sob. more appropriate. no chest pain no fever or chills. compliant with rx. c/o knee pain Objective Last 24 Hour Vital Signs Date Time Temp Pulse Resp B/P (MAP) Pulse Ox O2 Delivery O2 Flow Rate FiO2 11/16/18 08:03 96.8 92 18 141/66 (91) 95 11/16/18 04:30 80 20 100 Full Face 50 11/16/18 04:00 97.9 80 16 158/77 (104) 98 11/16/18 04:00 40 11/16/18 03:46 84 11/16/18 03:23 78 18 98 11/16/18 01:36 72 19 100 Full Face 50 11/16/18 00:00 98.1 80 20 147/67 (93) 98 11/15/18 23:41 81 11/15/18 23:00 75 18 100 Full Face 50 11/15/18 21:52 82 11/15/18 21:00 Nasal Cannula 4.0 11/15/18 21:00 40 11/15/18 20:00 98.7 84 20 135/60 (85) 98 11/15/18 16:17 88 20 Nasal Cannula 3.0 32 11/15/18 16:00 4.0 11/15/18 16:00 97.9 88 20 145/72 (96) 99 11/15/18 15:43 85 11/15/18 12:00 4.0 11/15/18 12:00 98.1 91 20 144/77 (99) 97 11/15/18 11:50 93 11/15/18 09:00 Nasal Cannula 4.0 Intake and Output 11/15/18 11/16/18 19:00 07:00 Intake Total 200 ml 770 ml Output Total 1500 ml 1700 ml Balance -1300 ml -930 ml Intake Oral 200 ml 770 ml Output Urine Total 1500 ml 1700 ml Height (Feet): 5 Height (Inches): 1.00 Weight (Pounds): 206 Objective General Appearance: WD/WN, alert Neck: supple Cardiovascular: regular rhythm Respiratory/Chest: expiratory wheezing Abdomen: normal bowel sounds, non tender, no organomegaly Edema: no edema noted Arm (L), no edema noted Arm (R), no edema noted Leg (L), no edema noted Leg (R), no edema noted Pedal (L), no edema noted Pedal (R), no edema noted 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
[2018-11-16] MEDS: DiphenhydrAMINE 50mg/ml Inj IVP PRN ×2 (08:19→16:25)
[2018-11-16] MEDS: Promethazine/DM 6.25mg/5ml ORAL PRN ×3 (08:19→22:38)
[2018-11-16 12:00] VITALS: BP 134/59
[2018-11-16 16:00] VITALS: BP 153/78
[2018-11-16] MEDS: traMADol 50mg tab ORAL PRN (16:25)
--- NOTE | 2018-11-16 19:26 | NUR ---
HAND-OFF: Report given to Luke Black. Plan of care endorsed.
--- NOTE | 2018-11-16 19:27 | NUR ---
NURSE NOTES: Received report from Carla Jj RN. Pt is resting in the bed w/o distress. IV is at LH 22G with SL, asymptomatic. Safety measures are applied with bed alarm on, bed in lowest position w/ side rails up x2. Call light and side table are w/in reach. Will continue follow plans of care.
[2018-11-16 20:00] VITALS: BP 147/70
[2018-11-16] MEDS: HydrOXYzine tab 25mg tab ORAL PRN (22:38)
[2018-11-17] VITALS: BP 150/73
--- NOTE | 2018-11-17 02:25 | NUR ---
NURSE NOTES: Pt is breathing through BiPap, Saturated 100%. RT came and adjusted the mask and checked the BiPap. Pt has no distress. Will continue to monitor.
[2018-11-17 04:00] VITALS: BP 146/74
--- NOTE | 2018-11-17 06:18 | NUR ---
NURSE NOTES: Pt was holding candy bag from her belonging, and was instructed not to eat too much of it d/t DM. Candy bag was put inside of the pt's belonging. Addendum: 11/17/18 at 0657 by BARBARA REYES RN Pt said that she will ear one candy when she has dry mouth after BiPap use. She verbalized understanding of elevated BS d/t DM and sugar intake should be limited.
[2018-11-17] MEDS: traMADol 50mg tab ORAL PRN ×2 (06:22→15:41)
[2018-11-17] MEDS: NovoLOG Insulin Flexpen SUBQ SCH ×4 (06:23→21:24)
--- NOTE | 2018-11-17 06:56 | NUR ---
NURSE NOTES: Received report from CYNDY Black. Bed is in lowest position, side rails up X2, and call light is within reach. WIll continue to monitor.
--- NOTE | 2018-11-17 07:09 | NUR ---
HAND-OFF: Report given to Carla Jj RN. Pt reported that she had formy stool in this morning. Endorsed plans of care.
[2018-11-17 08:08] VITALS: BP 138/74
[2018-11-17] MEDS: Revatio 20mg tab ORAL SCH ×2 (08:19→17:22)
[2018-11-17] MEDS: Nystatin Susp 500,000 units/5ml ORAL SCH ×2 (08:20→21:21)
[2018-11-17] MEDS: HydrOXYzine tab 25mg tab ORAL PRN ×2 (08:20→15:40)
[2018-11-17] MEDS: Flonase Nasal Inhaler 16gm NASAL SCH ×2 (08:20→17:22)
--- NOTE | 2018-11-17 08:22 | General Progress Note ---
Assessment/Plan Problem List: (1) Hypoxia ICD Codes: R09.02 - Hypoxia SNOMED: 805648434 (2) Acute dyspnea (3) Hypertension, malignant ICD Codes: I10 - Hypertension, malignant SNOMED: 98845567 (4) CHF (5) Toxic metabolic encephalopathy ICD Codes: G92 - Toxic encephalopathy SNOMED: 443102263 (6) COPD exacerbation ICD Codes: J44.1 - COPD exacerbation SNOMED: 649780104 Status: stable, progressing Assessment/Plan continuous bipap steroids diuretics resp rx monitor abg cardiac rx monitor bs topical lidoderm LTAC once stable/improved Subjective ROS Limited/Unobtainable: No Constitutional: Reports: malaise, weakness HEENT: Reports: no symptoms Cardiovascular: Reports: no symptoms Respiratory: Reports: cough, shortness of breath, wheezing Gastrointestinal/Abdominal: Reports: no symptoms Genitourinary: Reports: no symptoms Neurologic/Psychiatric: Reports: no symptoms Endocrine: Reports: no symptoms Hematologic/Lymphatic: Reports: no symptoms Allergies: Coded Allergies: AMOXICILLIN (Verified Allergy, Mild, RASH HIVES, 09/29/13) ERYTHROMYCIN BASE (Unverified Allergy, Unknown, 10/13/17) IODINE (Verified Allergy, Unknown, 09/29/13) PENICILLINS (Verified Allergy, Unknown, RASH HIVES, 09/29/13) All Systems: reviewed and negative except above Subjective remains on continuous bipap at night and during the day.off the eat. no new complaints. less sob. more appropriate. no chest pain no fever or chills. compliant with rx. c/o knee pain Objective Last 24 Hour Vital Signs Date Time Temp Pulse Resp B/P (MAP) Pulse Ox O2 Delivery O2 Flow Rate FiO2 11/17/18 08:08 98.2 91 16 138/74 (95) 99 11/17/18 08:04 4.0 11/17/18 04:00 98.0 93 20 146/74 (98) 95 11/17/18 04:00 4.0 11/17/18 03:46 65 18 99 Full Face 50 11/17/18 03:45 81 11/17/18 01:46 62 18 100 Full Face 50 11/17/18 00:00 40 11/17/18 00:00 97.9 79 20 150/73 (98) 99 11/16/18 23:59 87 11/16/18 22:09 84 21 99 Full Face 50 11/16/18 21:00 Nasal Cannula 4.0 11/16/18 20:00 91 11/16/18 20:00 98.5 88 20 147/70 (95) 99 11/16/18 20:00 4.0 11/16/18 19:06 91 11/16/18 17:43 98.1 11/16/18 16:00 85 11/16/18 16:00 4.0 11/16/18 16:00 98.0 88 20 153/78 (103) 96 11/16/18 12:00 40 11/16/18 12:00 92 11/16/18 12:00 98.1 87 18 134/59 (84) 92 11/16/18 10:02 80 20 100 Full Face 50 11/16/18 09:00 Nasal Cannula 4.0 Intake and Output 11/16/18 11/17/18 19:00 07:00 Intake Total 820 ml 500 ml Output Total 1200 ml 2000 ml Balance -380 ml -1500 ml Intake Oral 820 ml 500 ml Output Urine Total 1200 ml 2000 ml Height (Feet): 5 Height (Inches): 1.00 Weight (Pounds): 205 Objective General Appearance: WD/WN, alert Neck: supple Cardiovascular: regular rhythm Respiratory/Chest: expiratory wheezing Abdomen: normal bowel sounds, non tender, no organomegaly Edema: no edema noted Arm (L), no edema noted Arm (R), no edema noted Leg (L), no edema noted Leg (R), no edema noted Pedal (L), no edema noted Pedal (R), no edema noted 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
[2018-11-17] MEDS: Heparin 5000 units/ml inj SUBQ SCH ×2 (08:23→21:23)
[2018-11-17 09:05] LABS: BASOPHILS % (AUTO) 0.6 % (0.0-2.0); EOSINOPHILS % (AUTO) 1.1 % (0.0-3.0); HEMATOCRIT 32.8 % (37.0-47.0); HEMOGLOBIN 9.8 G/DL (12.0-16.0); LYMPHOCYTES % (AUTO) 19.5 % (20.0-45.0); MEAN CORPUSCULAR VOLUME 86 FL (80-99); MONOCYTES % (AUTO) 8.2 % (1.0-10.0); NEUTROPHILS % (AUTO) 70.6 % (45.0-75.0); PLATELET COUNT 217 K/UL (150-450); RED CELL DISTRIBUTION WIDTH 16.3 % (11.6-14.8)
[2018-11-17 09:22] LABS: ALANINE AMINOTRANSFERASE 42 U/L (12-78); ALBUMIN 2.8 G/DL (3.4-5.0); ALBUMIN/GLOBULIN RATIO 0.7 (1.0-2.7); ALKALINE PHOSPHATASE 65 U/L (46-116); ANION GAP 1 mmol/L (5-15); ASPARTATE AMINO TRANSFERASE 20 U/L (15-37); BILIRUBIN,TOTAL 0.2 MG/DL (0.2-1.0); BLOOD UREA NITROGEN 30 mg/dL (7-18); CALCIUM 8.7 MG/DL (8.5-10.1); CARBON DIOXIDE 40 MMOL/L (21-32); CHLORIDE 101 MMOL/L (98-107); CREATININE 0.9 MG/DL (0.55-1.30); POTASSIUM 3.3 MMOL/L (3.5-5.1); SODIUM 142 MMOL/L (136-145)
--- NOTE | 2018-11-17 10:11 | NUR ---
Social Service Note EUNICE spoke with Dr. Downey regarding impending dc planning. Per Dr. Downey family is requesting LTAC placement upon discharge. Patient is currently a resident of [facility]. EUNICE spoke with patient's dgt Tiffanie Girardy [phone] and confirmed family request for referral to [facility]. Referral faxed to [facility] [phone]. Will follow up.
[2018-11-17 12:00] VITALS: BP 125/74
--- NOTE | 2018-11-17 14:23 | Diagnostic Imaging Report ---
APPROVED REPORT CPT Code: 48693 Present Symptoms Comments: BILATERAL LEGS PAIN. BILATERAL: Imaging reveals a patent deep venous system bilaterally. There is no evidence of thrombus within the femoral, popliteal or tibial segments. The greater saphenous veins are also within normal limits. Doppler indicates normal spontaneous flow within these segments.
[2018-11-17] MEDS: Promethazine/DM 6.25mg/5ml ORAL PRN (15:41)
[2018-11-17 16:00] VITALS: BP 129/64
--- NOTE | 2018-11-17 19:25 | NUR ---
NURSE NOTES: Received pt. and report from CYNDY Alvarenga. Observe pt. asleep in bed. telemetry monitor is in placed, Lee in placed for urinary retention, IV site intact, asymptomatic and patent. Bed is in the lowest position and locked, call light within reach. No SOB or acute distress noted at this time. Will continue plan of care.
--- NOTE | 2018-11-17 19:34 | NUR ---
HAND-OFF: Report given to CYNDY Blum. Plan of care endorsed.
[2018-11-17 20:00] VITALS: BP 148/68
--- NOTE | 2018-11-17 21:30 | Pulmonology Progress Note ---
Assessment/Plan Assessment/Plan IMPRESSION acute on chronic respiratory failure hypercapnia COPD with recurrent exacerbation CHF sleep apnea leukocytosis, likely due to steroid use PLAN BIPAP QHS PO prednisone and taper respiratory care as is oxygen 24/7 monitor ABG for change prognosis guarded with poor lung fucntion dc planning to home vs rehab pending smoking abstinence discussed impression, plan, and exam edited and reviewed in detail care discussed with RN Subjective Allergies: Coded Allergies: AMOXICILLIN (Verified Allergy, Mild, RASH HIVES, 09/29/13) ERYTHROMYCIN BASE (Unverified Allergy, Unknown, 10/13/17) IODINE (Verified Allergy, Unknown, 09/29/13) PENICILLINS (Verified Allergy, Unknown, RASH HIVES, 09/29/13) Subjective remains stable comfortable on oxygen and alert off BIPAP Objective Last 24 Hour Vital Signs Date Time Temp Pulse Resp B/P (MAP) Pulse Ox O2 Delivery O2 Flow Rate FiO2 11/17/18 20:31 78 16 99 Full Face 40 11/17/18 20:30 Bi-pap 40 11/17/18 20:29 99 Bi-pap 40 11/17/18 17:06 98.4 11/17/18 16:00 98.0 82 16 129/64 (85) 99 11/17/18 16:00 89 11/17/18 16:00 4.0 11/17/18 12:00 40 11/17/18 12:00 98.4 89 16 125/74 (91) 95 11/17/18 12:00 78 11/17/18 09:00 Nasal Cannula 4.0 11/17/18 08:35 Nasal Cannula 4.0 36 11/17/18 08:35 99 4.0 36 11/17/18 08:08 98.2 91 16 138/74 (95) 99 11/17/18 08:04 4.0 11/17/18 08:00 91 11/17/18 04:00 98.0 93 20 146/74 (98) 95 11/17/18 04:00 4.0 11/17/18 03:46 65 18 99 Full Face 50 11/17/18 03:45 81 11/17/18 01:46 62 18 100 Full Face 50 11/17/18 00:00 40 11/17/18 00:00 97.9 79 20 150/73 (98) 99 11/16/18 23:59 87 11/16/18 22:09 84 21 99 Full Face 50 Intake and Output 11/16/18 11/17/18 18:59 06:59 Intake Total 820 ml 500 ml Output Total 1200 ml 2000 ml Balance -380 ml -1500 ml Intake Oral 820 ml 500 ml Output Urine Total 1200 ml 2000 ml Objective WDWN on oxygen /bipap reduced breath sounds bilaterally without rhonchi or wheeze [id number] without MRG distant NABS nontender obese no CC edema nonfocal more alert and comfortable Laboratory Tests 11/17/18 08:55: White Blood Count 10.0, Red Blood Count 3.80L, Hemoglobin 9.8L, Hematocrit 32.8L , Mean Corpuscular Volume 86, Mean Corpuscular Hemoglobin 25.8L, Mean Corpuscular Hemoglobin Concent 29.9L, Red Cell Distribution Width 16.3H, Platelet Count 217, Mean Platelet Volume 7.6, Neutrophils (%) (Auto) 70.6, Lymphocytes (%) (Auto) 19.5L, Monocytes (%) (Auto) 8.2, Eosinophils (%) (Auto) 1.1, Basophils (%) (Auto) 0.6, Sodium Level 142, Potassium Level 3.3L, Chloride Level 101, Carbon Dioxide Level 40H, Anion Gap 1L, Blood Urea Nitrogen 30H, Creatinine 0.9, Estimat Glomerular Filtration Rate > 60, Glucose Level 239H, Calcium Level 8.7, Total Bilirubin 0.2, Aspartate Amino Transf (AST/SGOT) 20, Alanine Aminotransferase (ALT/SGPT) 42, Alkaline Phosphatase 65, Total Protein 6.7, Albumin 2.8L, Globulin 3.9, Albumin/Globulin Ratio 0.7L Current Medications Medications (Trade) Dose Ordered Sig/Sera Route PRN Reason Start Time Stop Time Status Last Admin Dose Admin Acetaminophen (Tylenol) 650 mg Q4H PRN ORAL Mild Pain/Temp > 100.5 11/15/18 20:15 12/11/18 20:14 11/15/18 20:28 Acetazolamide (Diamox) 250 mg TWICE A DAY ORAL 11/16/18 09:00 12/16/18 08:59 11/17/18 17:23 Dextrose (Dextrose 50%) 25 ml Q30M PRN IV Hypoglycemia 11/15/18 18:00 12/10/18 20:59 Dextrose (Dextrose 50%) 50 ml Q30M PRN IV Hypoglycemia 11/15/18 18:00 12/10/18 20:59 Diphenhydramine HCl (Benadryl) 25 mg Q6H PRN IVP Itching 11/15/18 18:00 12/13/18 17:59 11/16/18 16:25 Diphenhydramine HCl (Benadryl) 25 mg Q6H PRN ORAL Itching 11/15/18 22:30 12/13/18 04:29 11/17/18 11:05 Fluticasone Propionate (Flonase) 1 spray TWICE A DAY NASAL 11/16/18 09:00 12/16/18 08:59 11/17/18 17:22 Furosemide (Lasix) 40 mg EVERY 12 HOURS IV 11/15/18 21:00 12/10/18 20:59 11/17/18 08:19 Heparin Sodium (Porcine) (Heparin 5000 units/ml) 5,000 units EVERY 12 HOURS SUBQ 11/15/18 21:00 12/10/18 20:59 11/17/18 21:23 Hydroxyzine HCl (Atarax) 25 mg Q6H PRN ORAL Itching 11/16/18 21:45 12/16/18 21:44 11/17/18 15:40 Insulin Aspart (NovoLOG) BEFORE MEALS AND HS SUBQ 11/15/18 21:00 12/10/18 20:59 11/17/18 21:24 Lidocaine (Lidoderm 5% PATCH) 1 patch DAILY TDERMAL 11/16/18 09:00 12/16/18 08:59 11/17/18 08:19 Nystatin (Nystatin) 5 ml Q12HR ORAL 11/15/18 21:00 11/18/18 08:59 11/17/18 21:21 Pantoprazole (Protonix) 40 mg DAILY ORAL 11/16/18 09:00 12/11/18 08:59 11/17/18 08:20 Prednisone (predniSONE) 20 mg DAILY ORAL 11/16/18 09:00 12/11/18 08:59 11/17/18 08:19 Promethazine HCl/ Dextromethorphan (Phenergan DM) 6.25 mg Q6H PRN ORAL For Cough 11/15/18 18:00 12/10/18 17:59 11/17/18 15:41 Sildenafil Citrate (Revatio) 20 mg BID ORAL 11/16/18 09:00 12/16/18 08:59 11/17/18 17:22 Froilan Caruso MD Nov 17, 2018 21:30
--- NOTE | 2018-11-17 21:36 | NUR ---
NURSE NOTES: Contacted Dr. Downey regarding pt.'s potassium level of 3.3; received orders. Will note and carry out.
[2018-11-18] VITALS: BP 130/73
[2018-11-18 04:00] VITALS: BP 133/69
[2018-11-18] MEDS: NovoLOG Insulin Flexpen SUBQ SCH ×4 (05:52→21:21)
--- NOTE | 2018-11-18 07:15 | NUR ---
HAND-OFF: Report given to CYNDY Merritt.
--- NOTE | 2018-11-18 07:30 | NUR ---
NURSE NOTES: Report received from CYNDY Blum. Pt is sitting at the edge and eating her breakfast. No signs and symptoms of acute distress at this time. Respirations are even and unlabored on 4 L NC. Bed is at lowest position, brakes engaged, two side rails up. Call light and bed side table within reach. Pt is in stable condition at this time; will continue to monitor and follow plan of care.
[2018-11-18 08:00] VITALS: BP 103/66
[2018-11-18] MEDS: Flonase Nasal Inhaler 16gm NASAL SCH ×2 (08:38→18:47)
[2018-11-18] MEDS: Revatio 20mg tab ORAL SCH ×2 (08:38→18:23)
[2018-11-18] MEDS: Heparin 5000 units/ml inj SUBQ SCH ×2 (08:40→21:22)
--- NOTE | 2018-11-18 09:11 | General Progress Note ---
Assessment/Plan Problem List: (1) Hypoxia ICD Codes: R09.02 - Hypoxia SNOMED: 459266172 (2) Acute dyspnea (3) Hypertension, malignant ICD Codes: I10 - Hypertension, malignant SNOMED: 16224130 (4) CHF (5) Toxic metabolic encephalopathy ICD Codes: G92 - Toxic encephalopathy SNOMED: 477639052 (6) COPD exacerbation ICD Codes: J44.1 - COPD exacerbation SNOMED: 552687024 Status: stable, progressing Assessment/Plan continuous bipap steroids diuretics resp rx monitor abg cardiac rx monitor bs topical lidoderm clotrimazole LTAC once stable/improved Subjective ROS Limited/Unobtainable: No Constitutional: Reports: malaise, weakness HEENT: Reports: no symptoms Cardiovascular: Reports: no symptoms Respiratory: Reports: cough, shortness of breath Gastrointestinal/Abdominal: Reports: no symptoms Genitourinary: Reports: no symptoms Neurologic/Psychiatric: Reports: no symptoms Endocrine: Reports: no symptoms Hematologic/Lymphatic: Reports: no symptoms Allergies: Coded Allergies: AMOXICILLIN (Verified Allergy, Mild, RASH HIVES, 09/29/13) ERYTHROMYCIN BASE (Unverified Allergy, Unknown, 10/13/17) IODINE (Verified Allergy, Unknown, 09/29/13) PENICILLINS (Verified Allergy, Unknown, RASH HIVES, 09/29/13) All Systems: reviewed and negative except above Subjective remains on continuous bipap at night and during the day.off the eat. no new complaints. less sob. more appropriate. no chest pain no fever or chills. compliant with rx. c/o knee pain c/o vaginal itching Objective Last 24 Hour Vital Signs Date Time Temp Pulse Resp B/P (MAP) Pulse Ox O2 Delivery O2 Flow Rate FiO2 11/18/18 08:00 97.6 94 18 103/66 (78) 96 11/18/18 05:45 82 18 98 Full Face 40 11/18/18 04:00 81 11/18/18 04:00 40 11/18/18 04:00 97.6 81 17 133/69 (90) 98 11/18/18 00:02 76 15 99 Full Face 40 11/18/18 00:00 97.2 77 18 130/73 (92) 100 11/18/18 00:00 79 11/17/18 22:14 77 15 99 Full Face 40 11/17/18 21:00 Nasal Cannula 4.0 11/17/18 20:31 78 16 99 Full Face 40 11/17/18 20:30 Bi-pap 40 11/17/18 20:29 99 Bi-pap 40 11/17/18 20:00 87 11/17/18 20:00 97.3 86 19 148/68 (94) 95 11/17/18 20:00 40 11/17/18 17:06 98.4 11/17/18 16:00 98.0 82 16 129/64 (85) 99 11/17/18 16:00 89 11/17/18 16:00 4.0 11/17/18 12:00 40 11/17/18 12:00 98.4 89 16 125/74 (91) 95 11/17/18 12:00 78 Intake and Output 11/17/18 11/18/18 19:00 07:00 Intake Total 600 ml 800 ml Output Total 1400 ml Balance 600 ml -600 ml Intake Oral 600 ml 800 ml Output Urine Total 1400 ml # Voids 1 Height (Feet): 5 Height (Inches): 1.00 Weight (Pounds): 210 Objective General Appearance: WD/WN, alert Neck: supple Cardiovascular: regular rhythm Respiratory/Chest: expiratory wheezing Abdomen: normal bowel sounds, non tender, no organomegaly Edema: no edema noted Arm (L), no edema noted Arm (R), no edema noted Leg (L), no edema noted Leg (R), no edema noted Pedal (L), no edema noted Pedal (R), no edema noted 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
[2018-11-18] MEDS ORDERED: Clotrimazole 1% Vaginal Cr 45gm VAGIN SCH (10:00)
[2018-11-18] MEDS: Promethazine/DM 6.25mg/5ml ORAL PRN ×2 (10:47→21:35)
--- NOTE | 2018-11-18 11:15 | NUR ---
TRANSFER TO FLOOR: Patient transferred to Med-Surg, per Dr. Downey's order. Report given to CYNDY Ledesma. Belongings and medications given to CYNDY Ledesma. Patient transferred in stable condition..
--- NOTE | 2018-11-18 11:37 | NUR ---
NURSE NOTES: Received report from CYNDY Parada. Patient in bed, awake, with 4 liters of O2, comfortable,not in respiratory distress. Bed in the lowest position, locked, 2 side rails up, call light is within reach. Will continue to monitor patient.
[2018-11-18 12:00] VITALS: BP 135/70
--- NOTE | 2018-11-18 12:45 | Progress Note ---
DATE: 11/16/2018 CARDIOLOGY PROGRESS NOTE This is a late entry for 11/16/2018. SUBJECTIVE: The patient remains congested, short of breath, requiring continuous BiPAP support. She has back pain. She remains in sinus rhythm. OBJECTIVE: VITAL SIGNS: Blood pressure 142/61, pulse 92, and respiratory rate 18. LUNGS: Coarse breath sounds. Scattered rhonchi. HEART: Regular rhythm and rate. Normal S1, S2. Fourth heart sound. ABDOMEN: Soft. Paradoxical motion EXTR: Mild peripheral edema. IMPRESSION: 1. Chronic obstructive pulmonary disease exacerbation. 2. Acute bronchospasm. 3. Acute on chronic respiratory acidosis. 4. No significant pulmonary hypertension, on Revatio. 5. Hypertensive heart disease. 6. Acute on chronic diastolic congestive heart failure. 7. History of breast cancer. 8. Steroid myopathy. 9. Paroxysmal atrial fibrillation 10. History of smoking. PLAN: 1. BiPAP, bronchodilators, and steroids. 2. DVT prophylaxis. 3. Periodic diuresis. 4. Monitor volume status. 5. Cardiorenal parameters. 6. Trend natriuretic peptide assay. 7. Physical and occupational therapy. 8. Continue amiodarone for suppression of atrial arrhythmias. Werner Martinez M.D. DR: DARREN JOB#: [id number] CC: SENTHIL
--- NOTE | 2018-11-18 12:46 | Pulmonology Progress Note ---
Assessment/Plan Assessment/Plan IMPRESSION acute on chronic respiratory failure hypercapnia COPD with recurrent exacerbation CHF sleep apnea leukocytosis, likely due to steroid use PLAN BIPAP QHS PO prednisone and taper respiratory care as is oxygen 24/7 monitor ABG for change and co2 retention prognosis guarded and would need pulmonary rehab dc planning to home vs rehab pending smoking abstinence discussed impression, plan, and exam edited and reviewed in detail care discussed with RN Subjective Allergies: Coded Allergies: AMOXICILLIN (Verified Allergy, Mild, RASH HIVES, 09/29/13) ERYTHROMYCIN BASE (Unverified Allergy, Unknown, 10/13/17) IODINE (Verified Allergy, Unknown, 09/29/13) PENICILLINS (Verified Allergy, Unknown, RASH HIVES, 09/29/13) Subjective remains stable comfortable on oxygen and alert off BIPAP and alert Objective Last 24 Hour Vital Signs Date Time Temp Pulse Resp B/P (MAP) Pulse Ox O2 Delivery O2 Flow Rate FiO2 11/18/18 09:00 Nasal Cannula 4.0 11/18/18 08:00 97.6 94 18 103/66 (78) 96 11/18/18 08:00 40 11/18/18 05:45 82 18 98 Full Face 40 11/18/18 04:00 81 11/18/18 04:00 40 11/18/18 04:00 97.6 81 17 133/69 (90) 98 11/18/18 00:02 76 15 99 Full Face 40 11/18/18 00:00 97.2 77 18 130/73 (92) 100 11/18/18 00:00 79 11/17/18 22:14 77 15 99 Full Face 40 11/17/18 21:00 Nasal Cannula 4.0 11/17/18 20:31 78 16 99 Full Face 40 11/17/18 20:30 Bi-pap 40 11/17/18 20:29 99 Bi-pap 40 11/17/18 20:00 87 11/17/18 20:00 97.3 86 19 148/68 (94) 95 11/17/18 20:00 40 11/17/18 17:06 98.4 11/17/18 16:00 98.0 82 16 129/64 (85) 99 11/17/18 16:00 89 11/17/18 16:00 4.0 Intake and Output 11/17/18 11/18/18 19:00 07:00 Intake Total 600 ml 800 ml Output Total 1400 ml Balance 600 ml -600 ml Intake Oral 600 ml 800 ml Output Urine Total 1400 ml # Voids 1 Objective WDWN on oxygen /bipap as needed reduced breath sounds bilaterally without rhonchi or wheeze [id number] without MRG distant NABS nontender obese no CC edema minimal nonfocal more alert and comfortable Current Medications Medications (Trade) Dose Ordered Sig/Sera Route PRN Reason Start Time Stop Time Status Last Admin Dose Admin Acetaminophen (Tylenol) 650 mg Q4H PRN ORAL Mild Pain/Temp > 100.5 11/18/18 13:00 12/11/18 12:59 Acetazolamide (Diamox) 250 mg TWICE A DAY ORAL 11/18/18 18:00 12/16/18 08:59 Clotrimazole (Gyne-Lotrimin) 1 applic DAILY VAGIN 11/19/18 09:00 12/18/18 09:59 Dextrose (Dextrose 50%) 25 ml Q30M PRN IV Hypoglycemia 11/18/18 13:00 12/10/18 12:59 Dextrose (Dextrose 50%) 50 ml Q30M PRN IV Hypoglycemia 11/18/18 13:00 12/10/18 12:59 Diphenhydramine HCl (Benadryl) 25 mg Q6H PRN IVP Itching 11/18/18 13:00 12/13/18 12:59 Diphenhydramine HCl (Benadryl) 25 mg Q6H PRN ORAL Itching 11/18/18 13:00 12/13/18 12:59 Fluticasone Propionate (Flonase) 1 spray TWICE A DAY NASAL 11/18/18 18:00 12/16/18 08:59 Furosemide (Lasix) 40 mg EVERY 12 HOURS IV 11/18/18 21:00 12/10/18 20:59 Heparin Sodium (Porcine) (Heparin 5000 units/ml) 5,000 units EVERY 12 HOURS SUBQ 11/18/18 21:00 12/10/18 20:59 Hydroxyzine HCl (Atarax) 25 mg Q6H PRN ORAL Itching 11/18/18 13:00 12/16/18 12:59 Insulin Aspart (NovoLOG) BEFORE MEALS AND HS SUBQ 11/18/18 13:30 12/10/18 13:29 Lidocaine (Lidoderm 5% PATCH) 1 patch DAILY TDERMAL 11/19/18 09:00 12/16/18 08:59 Pantoprazole (Protonix) 40 mg DAILY ORAL 11/19/18 09:00 12/11/18 08:59 Prednisone (predniSONE) 20 mg DAILY ORAL 11/19/18 09:00 12/11/18 08:59 Promethazine HCl/ Dextromethorphan (Phenergan DM) 6.25 mg Q6H PRN ORAL For Cough 11/18/18 12:00 12/10/18 17:59 Sildenafil Citrate (Revatio) 20 mg BID ORAL 11/18/18 18:00 12/16/18 08:59 Froilan Caruso MD Nov 18, 2018 12:46
[2018-11-18] MEDS ORDERED: DiphenhydrAMINE 50mg/ml Inj IVP PRN (13:00)
--- NOTE | 2018-11-18 15:29 | NUR ---
NURSE NOTES: RN left message notifting Dr. Caruso of ABG results from this afternoon, patient placed on Bipap by resp therapy, awaiting to hear back from Dr. Caruso, no new orders at this time.
[2018-11-18 16:00] VITALS: BP 119/73
--- NOTE | 2018-11-18 19:12 | NUR ---
HAND-OFF: Report given to CYNDY Wade..
[2018-11-18 20:00] VITALS: BP 122/75
--- NOTE | 2018-11-18 20:00 | NUR ---
NURSE NOTES: Patient received in bed, awake and alert, oriented x4. On o2 via NC at 4LPM, no acute distress at this time. FC draining via gravity. Call light within reach. Will monitor.
--- NOTE | 2018-11-18 21:33 | NUR ---
NURSE NOTES: IV is infilitrated, unable to give lasix IV. Dr. Downey made aware as pt request for PICC line or midline. Order received to insert PICC/midline. Patient signed consent.
[2018-11-18] MEDS: HydrOXYzine tab 25mg tab ORAL PRN (21:36)
[2018-11-18] MEDS ORDERED: Lidocaine 1% Plain 30 ml INJ PRN (22:00)
[2018-11-18] MEDS ORDERED: Heparin 2000 units/Ns 1000ml INJ PRN (22:00)
--- NOTE | 2018-11-18 23:00 | Progress Note ---
DATE: 11/13/2018 Late entry for November 13, 2018 SUBJECTIVE: She remains confused, BiPAP with shortness of breath. She is on pain medications at times and has itching. Afebrile. Monitored rhythm sinus and sinus tachycardia. OBJECTIVE: VITAL SIGNS: Blood pressure 119/51, pulse 73, respiratory rate 16. LUNGS: Diminished breath sounds. Rhonchi and expiratory wheezes. HEART: Regular rhythm and rate. Normal S1 and S2 with a fourth heart sound. ABDOMEN: Soft. Paradoxical movement. EXTREMITIES: Trace edema. LABORATORY DATA: Labs from yesterday were reviewed. IMPRESSION: 1. COPD exacerbation. 2. Acute on chronic respiratory acidosis. 3. Paroxysmal bronchospasm. 4. Hypertensive heart disease. 5. Acute on chronic diastolic congestive heart failure. 6. Compensatory metabolic alkalosis. 7. Moderate protein-calorie malnutrition. 8. Insulin-requiring diabetes mellitus with hyperglycemia due to steroid. PLAN: 1. BiPAP support. 2. Antimicrobials. 3. Inhaled bronchodilators. 4. Intravenous steroids. 5. Acetazolamide to correct acid-base parameters and titration of insulin with sliding scale coverage. 6. Diuresis based on clinical parameters. Werner Martinez M.D. DR: Candelario JOB#: [id number] CC:
--- NOTE | 2018-11-18 23:15 | Progress Note ---
DATE: 11/17/2018 CARDIOLOGY PROGRESS NOTE Late entry SUBJECTIVE: The patient remains on continues BiPAP most of the time except during the day when she wants to eat, slightly less short of breath. More alert and interactive. PHYSICAL EXAMINATION: VITAL SIGNS: Blood pressure 138/74, pulse 91, respiratory rate 16, afebrile. LUNGS: Diminished breath sounds. Few rhonchi. HEART: Regular rhythm and rate. Normal S1, S2. ABDOMEN: Soft. Trace edema. LABORATORY AND DIAGNOSTIC DATA: Sodium 142, potassium 3.3, bicarb 40, BUN 30, creatinine 0.9. Albumin 2.8. White count 10 and hemoglobin 9.8. IMPRESSION: 1. Chronic obstructive pulmonary disease exacerbation. 2. Respiratory failure. 3. Hypoxia. 4. Acute on chronic respiratory acidosis. 5. Compensatory metabolic alkalosis. 6. Acute on chronic diastolic congestive heart failure. 7. Paroxysmal atrial fibrillation, on amiodarone. PLAN: 1. Continue efforts to taper off steroids. 2. Decreased bronchodilator use. 3. Maintain acetazolamide, periodic diuresis based on clinical parameters. 4. Monitor acid-base parameters. 5. DVT prophylaxis. Werner Martinez M.D. DR: Candelario JOB#: [id number] CC:
--- NOTE | 2018-11-18 23:30 | Progress Note ---
DATE: 11/18/2018 CARDIOLOGY PROGRESS NOTE: SUBJECTIVE: Still on continuous BiPAP most of the day and all night. Somewhat less short of breath. No chest pain. Less swelling. OBJECTIVE: VITAL SIGNS: Blood pressure 103/66, pulse 94, respiratory rate 18, afebrile. LUNGS: Diminished breath sounds. Coarse rhonchi. Few wheezes. CARDIAC: Regular rhythm rate. Normal S1, S2. Fourth heart sound. ABDOMEN: Soft. EXTREMITIES: Trace edema. Condition remains tenuous. IMPRESSION: 1. Still with acute on chronic respiratory acidosis. 2. Bronchospasm. 3. Exacerbation of COPD complicated by acute on chronic diastolic congestive heart failure. 4. Paroxysmal atrial fibrillation with compensatory metabolic alkalosis. RECOMMENDATIONS AND PLAN: 1. To continue current care. 2. Recheck laboratory studies. 3. Adjust diuretic dosing as well as acetazolamide. Werner Martinez M.D. DR: HEATHER JOB#: [id number] CC:
[2018-11-19] VITALS (7 sets, daily range): BP systolic 100–154; BP diastolic 58–90
[2018-11-19] MEDS: NovoLOG Insulin Flexpen SUBQ SCH ×4 (05:45→22:50)
[2018-11-19 06:55] LABS: BASOPHILS % (AUTO) 1.1 % (0.0-2.0); EOSINOPHILS % (AUTO) 0.7 % (0.0-3.0); HEMATOCRIT 30.7 % (37.0-47.0); HEMOGLOBIN 8.9 G/DL (12.0-16.0); LYMPHOCYTES % (AUTO) 24.3 % (20.0-45.0); MEAN CORPUSCULAR VOLUME 87 FL (80-99); NEUTROPHILS % (AUTO) 66.9 % (45.0-75.0); PLATELET COUNT 210 K/UL (150-450); RED BLOOD COUNT 3.51 M/UL (4.20-5.40)
--- NOTE | 2018-11-19 07:20 | NUR ---
HAND-OFF: Report given to Sumi NAYLOR.
--- NOTE | 2018-11-19 07:30 | NUR ---
NURSE NOTES: Received pt from RN ALETHEA. Pt is alert and orient x4. pt has NC 4L/MIN. pt has no iv access. MD is aware. pt has Lee cath in place is running well. all needs attended, bed is locked and is in the lowest position. call light within easy reach. will continue to monitor.
[2018-11-19 07:31] LABS: ALANINE AMINOTRANSFERASE 43 U/L (12-78); ALBUMIN 2.6 G/DL (3.4-5.0); ALBUMIN/GLOBULIN RATIO 0.7 (1.0-2.7); ALKALINE PHOSPHATASE 64 U/L (46-116); ANION GAP 2 mmol/L (5-15); ASPARTATE AMINO TRANSFERASE 25 U/L (15-37); BILIRUBIN,TOTAL < 0.1 MG/DL (0.2-1.0); BLOOD UREA NITROGEN 23 mg/dL (7-18); CALCIUM 8.8 MG/DL (8.5-10.1); CARBON DIOXIDE 35 MMOL/L (21-32); CHLORIDE 104 MMOL/L (98-107); CREATININE 0.9 MG/DL (0.55-1.30); POTASSIUM 4.3 MMOL/L (3.5-5.1); SODIUM 141 MMOL/L (136-145)
--- NOTE | 2018-11-19 07:34 | General Progress Note ---
Assessment/Plan Problem List: (1) Hypoxia ICD Codes: R09.02 - Hypoxia SNOMED: 858324250 (2) Acute dyspnea (3) Hypertension, malignant ICD Codes: I10 - Hypertension, malignant SNOMED: 84015294 (4) CHF (5) Toxic metabolic encephalopathy ICD Codes: G92 - Toxic encephalopathy SNOMED: 623667969 (6) COPD exacerbation ICD Codes: J44.1 - COPD exacerbation SNOMED: 375754298 Status: stable, progressing Assessment/Plan continuous bipap(at night and daily prn) steroids per pulm diuretics/aceteozolamide resp rx monitor abg cardiac rx monitor bs topical lidoderm clotrimazole LTAC once stable/improved Subjective ROS Limited/Unobtainable: No Constitutional: Reports: malaise, weakness HEENT: Reports: no symptoms Cardiovascular: Reports: no symptoms Respiratory: Reports: shortness of breath Gastrointestinal/Abdominal: Reports: no symptoms Genitourinary: Reports: no symptoms Neurologic/Psychiatric: Reports: no symptoms Endocrine: Reports: no symptoms Hematologic/Lymphatic: Reports: no symptoms Allergies: Coded Allergies: AMOXICILLIN (Verified Allergy, Mild, RASH HIVES, 09/29/13) ERYTHROMYCIN BASE (Unverified Allergy, Unknown, 10/13/17) IODINE (Verified Allergy, Unknown, 09/29/13) PENICILLINS (Verified Allergy, Unknown, RASH HIVES, 09/29/13) All Systems: reviewed and negative except above Subjective remains on continuous bipap at night and during the day.off to eat. no new complaints. less sob. more appropriate. no chest pain no fever or chills. compliant with rx. c/o knee pain. transferred to med/surg Objective Last 24 Hour Vital Signs Date Time Temp Pulse Resp B/P (MAP) Pulse Ox O2 Delivery O2 Flow Rate FiO2 11/19/18 04:00 98.5 92 22 124/58 (80) 91 11/19/18 02:33 77 16 99 Full Face 40 11/19/18 01:27 70 17 99 Full Face 40 11/19/18 00:06 73 18 100 Full Face 40 11/19/18 00:00 98.3 90 22 151/90 (110) 100 11/18/18 21:00 Nasal Cannula 4.0 11/18/18 20:00 98.6 88 20 122/75 (91) 100 11/18/18 19:56 99 4.0 36 11/18/18 19:56 Nasal Cannula 4.0 36 11/18/18 16:15 80 18 99 Full Face 40 11/18/18 16:00 97.0 93 20 119/73 (88) 95 11/18/18 12:00 98.1 92 18 135/70 (91) 91 11/18/18 09:00 Nasal Cannula 4.0 11/18/18 08:09 Nasal Cannula 4.0 11/18/18 08:08 97 Nasal Cannula 4.0 11/18/18 08:00 97.6 94 18 103/66 (78) 96 11/18/18 08:00 40 Intake and Output 11/18/18 11/19/18 19:00 07:00 Intake Total 360 ml 800 ml Output Total 1550 ml Balance 360 ml -750 ml Intake Oral 360 ml Other 800 ml Output Urine Total 1550 ml Laboratory Tests 11/18/18 14:30: Arterial Blood pH 7.271L, Arterial Blood Partial Pressure CO2 78.9*H, Arterial Blood Partial Pressure O2 50.8L, Arterial Blood HCO3 35.5H, Arterial Blood Oxygen Saturation 81.7*L, Arterial Blood Base Excess 6.7H, Rico Test Positive 11/19/18 05:10: White Blood Count 9.0, Red Blood Count 3.51L, Hemoglobin 8.9L, Hematocrit 30.7L , Mean Corpuscular Volume 87, Mean Corpuscular Hemoglobin 25.4L, Mean Corpuscular Hemoglobin Concent 29.1L, Red Cell Distribution Width 16.0H, Platelet Count 210, Mean Platelet Volume 7.5, Neutrophils (%) (Auto) 66.9, Lymphocytes (%) (Auto) 24.3, Monocytes (%) (Auto) 7.0, Eosinophils (%) (Auto) 0.7, Basophils (%) (Auto) 1.1, Sodium Level [Pending], Potassium Level [Pending] , Chloride Level [Pending], Carbon Dioxide Level [Pending], Blood Urea Nitrogen [Pending], Creatinine [Pending], Estimat Glomerular Filtration Rate [Pending], Glucose Level [Pending], Calcium Level [Pending], Magnesium Level [Pending], Total Bilirubin [Pending], Aspartate Amino Transf (AST/SGOT) [Pending], Alanine Aminotransferase (ALT/SGPT) [Pending], Alkaline Phosphatase [Pending], Pro-B- Type Natriuretic Peptide [Pending], Total Protein [Pending], Albumin [Pending], Globulin [Pending] Height (Feet): 5 Height (Inches): 1.00 Weight (Pounds): 203 Objective General Appearance: WD/WN, alert Neck: supple Cardiovascular: regular rhythm Respiratory/Chest: expiratory wheezing Abdomen: normal bowel sounds, non tender, no organomegaly Edema: no edema noted Arm (L), no edema noted Arm (R), no edema noted Leg (L), no edema noted Leg (R), no edema noted Pedal (L), no edema noted Pedal (R), no edema noted Generalized 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
[2018-11-19] MEDS ORDERED: Clotrimazole 1% Vaginal Cr 45gm VAGIN SCH (09:00)
[2018-11-19] MEDS: Heparin 5000 units/ml inj SUBQ SCH ×2 (09:00→21:50)
--- NOTE | 2018-11-19 09:00 | NUR ---
NURSE NOTES: no flonase in the pt's box. called pharmacy to send it to [facility]. will continue to monitor.
[2018-11-19] MEDS: Revatio 20mg tab ORAL SCH ×2 (09:36→17:20)
--- NOTE | 2018-11-19 09:48 | NUR ---
NURSE NOTES: no iv access, Lasix didn't give and wasted.
[2018-11-19] MEDS ORDERED: traMADol 50mg tab ORAL PRN ×2 (11:00→22:00)
[2018-11-19] MEDS: HydrOXYzine tab 25mg tab ORAL PRN (11:06)
[2018-11-19] MEDS: Promethazine/DM 6.25mg/5ml ORAL PRN (11:06)
[2018-11-19] MEDS: Flonase Nasal Inhaler 16gm NASAL SCH ×2 (11:13→17:20)
[2018-11-19] MEDS ORDERED: Sertraline 50mg tab ORAL SCH (12:45)
[2018-11-19] MEDS ORDERED: LORazepam 1mg tab ORAL PRN ×2 (12:45→22:00)
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
--- NOTE | 2018-11-19 14:40 | NUR ---
NURSE NOTES: called Dr alfaro regarding ABG result, waiting to call back. will continue to monitor.
--- NOTE | 2018-11-19 16:00 | NUR ---
NURSE NOTES: Dr alfaro called back, all orders noted and cfarried out. will continue to monitor.
--- NOTE | 2018-11-19 17:00 | Pulmonology Progress Note ---
Assessment/Plan Assessment/Plan IMPRESSION acute on chronic respiratory failure hypercapnia COPD with recurrent exacerbation CHF sleep apnea leukocytosis, likely due to steroid use worsening CO2 retention PLAN BIPAP 24/7 dc PO prednisone and resume IV solumedrol respiratory care as is oxygen 24/7 monitor ABG and move to [facility] prognosis guarded hold dc smoking abstinence discussed impression, plan, and exam edited and reviewed in detail care discussed with RN Subjective Allergies: Coded Allergies: AMOXICILLIN (Verified Allergy, Mild, RASH HIVES, 09/29/13) ERYTHROMYCIN BASE (Unverified Allergy, Unknown, 10/13/17) IODINE (Verified Allergy, Unknown, 09/29/13) PENICILLINS (Verified Allergy, Unknown, RASH HIVES, 09/29/13) Subjective remains stable OVERALL WORSENING CO2 RETENTION d/w nursing Objective Last 24 Hour Vital Signs Date Time Temp Pulse Resp B/P (MAP) Pulse Ox O2 Delivery O2 Flow Rate FiO2 11/19/18 16:11 90 20 97 Full Face 40 11/19/18 16:00 98.3 66 20 124/76 (92) 97 11/19/18 12:00 99.1 89 18 100/63 (75) 97 11/19/18 11:46 95 Nasal Cannula 4.0 36 11/19/18 11:46 Nasal Cannula 4.0 36 11/19/18 11:35 98.6 11/19/18 08:00 98.6 88 19 154/73 (100) 95 11/19/18 04:00 98.5 92 22 124/58 (80) 91 11/19/18 02:33 77 16 99 Full Face 40 11/19/18 01:27 70 17 99 Full Face 40 11/19/18 00:06 73 18 100 Full Face 40 11/19/18 00:00 98.3 90 22 151/90 (110) 100 11/18/18 21:00 Nasal Cannula 4.0 11/18/18 20:00 98.6 88 20 122/75 (91) 100 11/18/18 19:56 99 4.0 36 11/18/18 19:56 Nasal Cannula 4.0 36 Intake and Output 11/18/18 11/19/18 19:00 07:00 Intake Total 360 ml 800 ml Output Total 1550 ml Balance 360 ml -750 ml Intake Oral 360 ml Other 800 ml Output Urine Total 1550 ml Objective WDWN on oxygen /bipap as needed reduced breath sounds bilaterally without rhonchi or wheeze [id number] without MRG distant NABS nontender obese no CC edema minimal nonfocal appears to be more in distress Laboratory Tests 11/19/18 05:10: White Blood Count 9.0, Red Blood Count 3.51L, Hemoglobin 8.9L, Hematocrit 30.7L , Mean Corpuscular Volume 87, Mean Corpuscular Hemoglobin 25.4L, Mean Corpuscular Hemoglobin Concent 29.1L, Red Cell Distribution Width 16.0H, Platelet Count 210, Mean Platelet Volume 7.5, Neutrophils (%) (Auto) 66.9, Lymphocytes (%) (Auto) 24.3, Monocytes (%) (Auto) 7.0, Eosinophils (%) (Auto) 0.7, Basophils (%) (Auto) 1.1, Sodium Level 141, Potassium Level 4.3, Chloride Level 104, Carbon Dioxide Level 35H, Anion Gap 2L, Blood Urea Nitrogen 23H, Creatinine 0.9, Estimat Glomerular Filtration Rate > 60, Glucose Level 185H, Calcium Level 8.8, Magnesium Level 2.0, Total Bilirubin < 0.1L, Aspartate Amino Transf (AST/SGOT) 25, Alanine Aminotransferase (ALT/SGPT) 43, Alkaline Phosphatase 64, Pro-B-Type Natriuretic Peptide 149H, Total Protein 6.5, Albumin 2.6L, Globulin 3.9, Albumin/Globulin Ratio 0.7L 11/19/18 14:06: Arterial Blood pH 7.238*L, Arterial Blood Partial Pressure CO2 81.9*H, Arterial Blood Partial Pressure O2 88.1, Arterial Blood HCO3 34.2H, Arterial Blood Oxygen Saturation 95.6, Arterial Blood Base Excess 4.9H, Rico Test Positive Current Medications Medications (Trade) Dose Ordered Sig/Sera Route PRN Reason Start Time Stop Time Status Last Admin Dose Admin Acetaminophen (Tylenol) 650 mg Q4H PRN ORAL Mild Pain/Temp > 100.5 11/18/18 13:00 12/11/18 12:59 Acetazolamide (Diamox) 250 mg TWICE A DAY ORAL 11/18/18 18:00 12/16/18 08:59 11/19/18 09:36 Chlorhexidine Gluconate (Brandee-Hex 2%) 1 applic DAILY@1999 TOPIC 11/19/18 20:00 12/19/18 19:59 Clotrimazole (Gyne-Lotrimin) 1 applic DAILY VAGIN 11/19/18 09:00 12/18/18 09:59 11/19/18 09:38 Dextrose (Dextrose 50%) 25 ml Q30M PRN IV Hypoglycemia 11/18/18 13:00 12/10/18 12:59 Dextrose (Dextrose 50%) 50 ml Q30M PRN IV Hypoglycemia 11/18/18 13:00 12/10/18 12:59 Diphenhydramine HCl (Benadryl) 25 mg Q6H PRN IVP Itching 11/18/18 13:00 12/13/18 12:59 Diphenhydramine HCl (Benadryl) 25 mg Q6H PRN ORAL Itching 11/18/18 13:00 12/13/18 12:59 Fluticasone Propionate (Flonase) 1 spray TWICE A DAY NASAL 11/18/18 18:00 12/16/18 08:59 11/19/18 11:13 Furosemide (Lasix) 40 mg EVERY 12 HOURS IV 11/18/18 21:00 12/10/18 20:59 Heparin Sodium (Porcine) (Heparin 5000 units/ml) 5,000 units EVERY 12 HOURS SUBQ 11/18/18 21:00 12/10/18 20:59 11/18/18 21:22 Heparin Sodium/ Sodium Chloride (Heparin 2000 units/Ns 1000ml premix) 2,000 unit ONCE PRN INJ PICC PLACEMENT 11/18/18 22:00 11/20/18 23:59 Hydroxyzine HCl (Atarax) 25 mg Q6H PRN ORAL Itching 11/18/18 13:00 12/16/18 12:59 11/19/18 11:06 Insulin Aspart (NovoLOG) BEFORE MEALS AND HS SUBQ 11/18/18 13:30 12/10/18 13:29 11/19/18 12:01 Lidocaine (Lidoderm 5% PATCH) 1 patch DAILY TDERMAL 11/19/18 09:00 12/16/18 08:59 11/19/18 09:38 Lidocaine HCl (Xylocaine 1% 30ml) 30 ml ONCE PRN INJ PICC PLACEMENT 11/18/18 22:00 11/20/18 23:59 Lorazepam (Ativan) 2 mg Q6H PRN ORAL For Anxiety 11/19/18 12:45 11/26/18 12:44 11/19/18 14:07 Methylprednisolone Sodium Succinate (Solu-MEDROL) 60 mg EVERY 12 HOURS IVP 11/19/18 21:00 12/19/18 20:59 Pantoprazole (Protonix) 40 mg DAILY ORAL 11/19/18 09:00 12/11/18 08:59 11/19/18 09:36 Promethazine HCl/ Dextromethorphan (Phenergan DM) 6.25 mg Q6H PRN ORAL For Cough 11/18/18 12:00 12/10/18 17:59 11/19/18 11:06 Sertraline HCl (Zoloft) 50 mg DAILY ORAL 11/20/18 09:00 12/20/18 08:59 Sildenafil Citrate (Revatio) 20 mg BID ORAL 11/18/18 18:00 12/16/18 08:59 11/19/18 09:36 Tramadol HCl (Ultram) 50 mg TIDPRN PRN ORAL pain 11/19/18 11:00 11/26/18 10:59 11/19/18 11:05 Froilan Caruso MD Nov 19, 2018 17:00
--- NOTE | 2018-11-19 19:29 | NUR ---
HAND-OFF: Report given to CYNDY VELEZ.
--- NOTE | 2018-11-19 19:55 | NUR ---
Received patient asleep with no s/s of acute distress. Pt on bipap machine. Awaiting for transfer to [facility]. Bed on lowest position, 2 side rails up, call light within reach.
[2018-11-19] MEDS ORDERED: Dyna-Hex 2% Top Sol 2oz TOPIC SCH ×2 (20:00→22:00)
[2018-11-19] MEDS ORDERED: Solu-MEDROL 125mg Inj IVP SCH (21:00)
--- NOTE | 2018-11-19 21:00 | NUR ---
NURSE NOTES: Transferred to [place]. RT made aware, switched to nasal cannula for transfer. Belongings and paper chart transferred with patient. No s/s of acute distress. Lee intact and draining, skin intact, VS stable.
--- NOTE | 2018-11-19 21:15 | NUR ---
NURSE NOTES: Received report from Sharee RN, pt. transferred from - pt. in bed awake, able to make needs known- A/O x's4. No signs or symptoms of acute cardiac or respiratory distress noted, bed in lowest position and call light within easy reach, side rails up x's3, safety brakes engaged, Pt. appears to be tolerating current BIPAP settings well 15/4 fio2 40%- no distress noted, pt. appears to be resting comfortably, Lee intact and draining to gravity, Skin intact, Full body assessment done, VS stable, cardiac monitoring placed, pt. teaching done and pt. oriented to room, GAEL midline intact- no dressing on midline- will apply picc line dressing, safety measures continued, will continue with plan of care.
[2018-11-19] MEDS ORDERED: Heparin 2000 units/Ns 1000ml INJ PRN (21:30)
[2018-11-19] MEDS ORDERED: Lidocaine 1% Plain 30 ml INJ PRN (21:30)
[2018-11-19] MEDS: Solu-MEDROL 125mg Inj IVP SCH (21:49)
[2018-11-19] MEDS ORDERED: Promethazine/DM 6.25mg/5ml ORAL PRN (22:00)
[2018-11-19] MEDS ORDERED: DiphenhydrAMINE 50mg/ml Inj IVP PRN (22:00)
[2018-11-20] VITALS: BP 144/71
[2018-11-20 04:00] VITALS: BP 131/79
[2018-11-20] MEDS ORDERED: HydrOXYzine tab 25mg tab ORAL PRN (05:00)
[2018-11-20] MEDS: NovoLOG Insulin Flexpen SUBQ SCH ×5 (05:58→21:15)
--- NOTE | 2018-11-20 06:23 | NUR ---
NURSE NOTES: patients blood sugar is 469- administered 12U of insulin- rechecked BS in 20 minutes and reading came back with no number stating critically high- left msg for DR. Downey- waiting for call back from doctor. pt. appears to be stable and no distress noted- no hyperglycemia symptoms noted- will continue to monitor pt. and with plan of care.
[2018-11-20 06:32] LABS: ALANINE AMINOTRANSFERASE 48 U/L (12-78); ALBUMIN 2.8 G/DL (3.4-5.0); ALBUMIN/GLOBULIN RATIO 0.8 (1.0-2.7); ALKALINE PHOSPHATASE 72 U/L (46-116); ANION GAP 5 mmol/L (5-15); ASPARTATE AMINO TRANSFERASE 20 U/L (15-37); BILIRUBIN,TOTAL 0.1 MG/DL (0.2-1.0); BLOOD UREA NITROGEN 23 mg/dL (7-18); CALCIUM 8.4 MG/DL (8.5-10.1); CARBON DIOXIDE 33 MMOL/L (21-32); CHLORIDE 102 MMOL/L (98-107); CREATININE 0.9 MG/DL (0.55-1.30); POTASSIUM 4.4 MMOL/L (3.5-5.1); SODIUM 140 MMOL/L (136-145)
--- NOTE | 2018-11-20 06:40 | NUR ---
NURSE NOTES: DR. Downey called back- was notified that after 12U of insulin was given 35 minutes ago two readings after that results came back CRI High. Also DR. Downey was notified that patient is non-compliant and eating skittles-pt. was explained of the risks but, pt. continued to eat her skittles. per DR. Downey, to re-check blood sugar in an hour and notify him of results- he may order a one time order for NovoLog. Patient appears to be stable and no distress noted.
--- NOTE | 2018-11-20 07:04 | NUR ---
HAND-OFF: Report given to Monica RN, pt. remains stable and no distress noted, nurse aware to check blood sugar at 7:30am and notify him of the results.
--- NOTE | 2018-11-20 07:05 | NUR ---
NURSE NOTES: Received patient from CYNDY Harrington. Patient awake, alert, and verbally responsive. On 4L NC. In no respiratory distress. human service specialist in placed. Lee is in placed. IV site is asymptomatic. Dr. Downey at bedside. Will recheck blood sugar. Bed in lowest position with side rails up. Will continue to follow plan of care.
[2018-11-20] MEDS: Heparin 5000 units/ml inj SUBQ SCH ×3 (07:25→21:15)
--- NOTE | 2018-11-20 07:25 | NUR ---
RESPIRATORY NOTE: PT. RECEIVED STABLE ON 3LPM N/C. ALL VS WNL. PT REQUESTED TO BE PLACED ON BIPAP AFTER BREAKFAST. NO SIGN OF SKIN BREAKDOWN NOTED AT THIS TIME. WILL CONTINUE TO MONITOR.
[2018-11-20 08:00] VITALS: BP 149/69
[2018-11-20] MEDS ORDERED: NovoLOG Insulin Flexpen SUBQ SCH (08:30)
[2018-11-20] MEDS: Revatio 20mg tab ORAL SCH ×2 (08:56→17:23)
[2018-11-20] MEDS: Solu-MEDROL 125mg Inj IVP SCH ×2 (08:56→21:14)
[2018-11-20] MEDS ORDERED: Sertraline 50mg tab ORAL SCH ×2 (09:00)
[2018-11-20] MEDS ORDERED: Clotrimazole 1% Vaginal Cr 45gm VAGIN SCH (09:00)
[2018-11-20] MEDS: Flonase Nasal Inhaler 16gm NASAL SCH ×2 (10:23→17:22)
[2018-11-20 12:00] VITALS: BP 148/85
--- NOTE | 2018-11-20 12:33 | NUR ---
NURSE NOTES: Patient is currently on 3L NC. Educated her that she needs to be on bipap continuously, but insisted to be on NC for now and bipap after lunch.
--- NOTE | 2018-11-20 12:41 | NUR ---
Social Service Note Updated clinical information faxed to Elissa at [place] [phone] (f), (p).
--- NOTE | 2018-11-20 14:24 | Pulmonology Progress Note ---
Assessment/Plan Assessment/Plan IMPRESSION acute on chronic respiratory failure hypercapnia COPD with recurrent exacerbation CHF sleep apnea leukocytosis, likely due to steroid use worsening CO2 retention peripheral edema hypoxemia PLAN BIPAP 24/7 dc PO prednisone and resume IV solumedrol respiratory care as is oxygen 24/7 monitor ABG and monitor in PARAMJIT prognosis guarded hold dc and will need transfer to [place] or [place] smoking abstinence discussed impression, plan, and exam edited and reviewed in detail care discussed with RN Subjective Allergies: Coded Allergies: AMOXICILLIN (Verified Allergy, Mild, RASH HIVES, 09/29/13) ERYTHROMYCIN BASE (Unverified Allergy, Unknown, 10/13/17) IODINE (Verified Allergy, Unknown, 09/29/13) PENICILLINS (Verified Allergy, Unknown, RASH HIVES, 09/29/13) Subjective poor acid base exchange d/w case management d/w nursing Objective Last 24 Hour Vital Signs Date Time Temp Pulse Resp B/P (MAP) Pulse Ox O2 Delivery O2 Flow Rate FiO2 11/20/18 13:34 94 11/20/18 13:00 86 26 96 Full Face 40 11/20/18 12:00 99.1 95 22 148/85 (106) 92 11/20/18 12:00 Nasal Cannula 3.0 11/20/18 11:18 90 22 93 11/20/18 09:21 83 17 98 Full Face 40 11/20/18 08:00 97.9 86 22 149/69 (95) 97 11/20/18 08:00 Bi-pap 11/20/18 07:54 99 11/20/18 07:25 98 Nasal Cannula 32 11/20/18 07:25 Nasal Cannula 3.0 32 11/20/18 07:25 100 20 98 11/20/18 04:00 85 11/20/18 04:00 40 11/20/18 04:00 Bi-pap 11/20/18 04:00 98.7 80 24 131/79 (96) 99 11/20/18 00:57 73 15 99 Full Face 40 11/20/18 00:00 40 11/20/18 00:00 98.3 73 18 144/71 (95) 100 11/20/18 00:00 Bi-pap 11/20/18 00:00 70 11/19/18 22:38 75 16 99 Full Face 40 11/19/18 22:02 80 25 99 Full Face 40 11/19/18 21:46 74 11/19/18 21:15 98.7 87 24 128/66 (86) 99 11/19/18 21:15 40 11/19/18 21:15 Bi-pap 11/19/18 21:11 83 30 98 Full Face 40 11/19/18 20:22 98 Bi-pap 40 11/19/18 20:22 Bi-pap 40 11/19/18 20:00 97.7 80 18 150/79 (102) 100 11/19/18 16:30 74 19 96 Full Face 40 11/19/18 16:11 90 20 97 Full Face 40 11/19/18 16:00 98.3 66 20 124/76 (92) 97 Intake and Output 11/19/18 11/20/18 19:00 07:00 Intake Total 720 ml Output Total 2000 ml Balance 720 ml -2000 ml Intake Oral 720 ml Output Urine Total 2000 ml # Bowel Movements 3 Objective WDWN on oxygen /bipap as needed reduced breath sounds bilaterally without rhonchi or wheeze [id number] without MRG distant NABS nontender obese no CC edema minimal nonfocal reviewed and edited Laboratory Tests 11/20/18 04:20: Sodium Level 140, Potassium Level 4.4, Chloride Level 102, Carbon Dioxide Level 33H, Anion Gap 5, Blood Urea Nitrogen 23H, Creatinine 0.9, Estimat Glomerular Filtration Rate > 60, Glucose Level 290#H, Calcium Level 8.4L, Total Bilirubin 0.1L, Aspartate Amino Transf (AST/SGOT) 20, Alanine Aminotransferase (ALT/SGPT) 48, Alkaline Phosphatase 72, Total Protein 6.3L, Albumin 2.8L, Globulin 3.5, Albumin/Globulin Ratio 0.8L Current Medications Medications (Trade) Dose Ordered Sig/Sera Route PRN Reason Start Time Stop Time Status Last Admin Dose Admin Acetaminophen (Tylenol) 650 mg Q4H PRN ORAL Mild Pain/Temp > 100.5 11/19/18 22:00 12/19/18 21:59 Acetazolamide (Diamox) 250 mg TWICE A DAY ORAL 11/20/18 09:00 12/16/18 08:59 11/20/18 08:56 Chlorhexidine Gluconate (Brandee-Hex 2%) 1 applic DAILY@1999 TOPIC 11/19/18 22:00 12/19/18 21:59 11/19/18 21:49 Clotrimazole (Gyne-Lotrimin) 1 applic DAILY VAGIN 11/20/18 09:00 12/18/18 09:59 11/20/18 08:55 Dextrose (Dextrose 50%) 25 ml Q30M PRN IV Hypoglycemia 11/19/18 21:30 12/10/18 12:59 Dextrose (Dextrose 50%) 50 ml Q30M PRN IV Hypoglycemia 11/19/18 21:30 12/10/18 12:59 Diphenhydramine HCl (Benadryl) 25 mg Q6H PRN IVP Itching 11/19/18 22:00 12/19/18 21:59 Diphenhydramine HCl (Benadryl) 25 mg Q6H PRN ORAL Itching 11/19/18 22:00 12/19/18 21:59 11/20/18 08:55 Fluticasone Propionate (Flonase) 1 spray TWICE A DAY NASAL 11/20/18 09:00 12/16/18 08:59 11/20/18 10:23 Furosemide (Lasix) 40 mg EVERY 12 HOURS IV 11/19/18 22:00 12/19/18 21:59 11/20/18 08:58 Heparin Sodium (Porcine) (Heparin 5000 units/ml) 5,000 units EVERY 12 HOURS SUBQ 11/19/18 22:00 12/19/18 21:59 11/20/18 08:57 Heparin Sodium/ Sodium Chloride (Heparin 2000 units/Ns 1000ml premix) 2,000 unit ONCE PRN INJ PICC PLACEMENT 11/19/18 21:30 11/21/18 23:59 Hydroxyzine HCl (Atarax) 25 mg Q6H PRN ORAL Itching 11/20/18 05:00 12/16/18 04:59 11/20/18 05:24 Insulin Aspart (NovoLOG) BEFORE MEALS AND HS SUBQ 11/19/18 23:00 12/19/18 22:59 11/20/18 11:28 Lidocaine (Lidoderm 5% PATCH) 1 patch DAILY TDERMAL 11/20/18 09:00 12/16/18 08:59 11/20/18 09:11 Lidocaine HCl (Xylocaine 1% 30ml) 30 ml ONCE PRN INJ PICC PLACEMENT 11/19/18 21:30 11/20/18 23:59 Lorazepam (Ativan) 2 mg Q6H PRN ORAL For Anxiety 11/19/18 22:00 11/26/18 21:59 11/20/18 08:58 Methylprednisolone Sodium Succinate (Solu-MEDROL) 60 mg EVERY 12 HOURS IVP 11/19/18 22:00 12/19/18 21:59 11/20/18 08:56 Pantoprazole (Protonix) 40 mg DAILY ORAL 11/20/18 09:00 12/11/18 08:59 11/20/18 08:56 Promethazine HCl/ Dextromethorphan (Phenergan DM) 6.25 mg Q6H PRN ORAL For Cough 11/19/18 22:00 12/19/18 21:59 11/20/18 05:10 Sertraline HCl (Zoloft) 50 mg DAILY ORAL 11/20/18 09:00 12/20/18 08:59 11/20/18 08:57 Sildenafil Citrate (Revatio) 20 mg BID ORAL 11/20/18 09:00 12/16/18 08:59 11/20/18 08:56 Tramadol HCl (Ultram) 50 mg TIDPRN PRN ORAL For Pain 11/19/18 22:00 11/26/18 21:59 Froilan Caruso MD Nov 20, 2018 14:23
--- NOTE | 2018-11-20 15:04 | General Progress Note ---
Assessment/Plan Problem List: (1) MDD (major depressive disorder), recurrent episode ICD Codes: F33.9 - Major depressive disorder, recurrent, unspecified SNOMED: 725064815 (2) Anxiety disorder ICD Codes: F41.9 - Anxiety disorder, unspecified SNOMED: 221113660 Status: stable Assessment/Plan zoloft 50mg po qam ativan prn dw staff Subjective Neurologic/Psychiatric: Reports: anxiety, depressed Allergies: Coded Allergies: AMOXICILLIN (Verified Allergy, Mild, RASH HIVES, 09/29/13) ERYTHROMYCIN BASE (Unverified Allergy, Unknown, 10/13/17) IODINE (Verified Allergy, Unknown, 09/29/13) PENICILLINS (Verified Allergy, Unknown, RASH HIVES, 09/29/13) Subjective worried about her copd and eating "too much" for being on steroids Objective Last 24 Hour Vital Signs Date Time Temp Pulse Resp B/P (MAP) Pulse Ox O2 Delivery O2 Flow Rate FiO2 11/20/18 13:34 94 11/20/18 13:00 86 26 96 Full Face 40 11/20/18 12:00 99.1 95 22 148/85 (106) 92 11/20/18 12:00 Nasal Cannula 3.0 11/20/18 11:18 90 22 93 11/20/18 09:21 83 17 98 Full Face 40 11/20/18 08:00 97.9 86 22 149/69 (95) 97 11/20/18 08:00 Bi-pap 11/20/18 07:54 99 11/20/18 07:25 98 Nasal Cannula 32 11/20/18 07:25 Nasal Cannula 3.0 32 11/20/18 07:25 100 20 98 11/20/18 04:00 85 11/20/18 04:00 40 11/20/18 04:00 Bi-pap 11/20/18 04:00 98.7 80 24 131/79 (96) 99 11/20/18 00:57 73 15 99 Full Face 40 11/20/18 00:00 40 11/20/18 00:00 98.3 73 18 144/71 (95) 100 11/20/18 00:00 Bi-pap 11/20/18 00:00 70 11/19/18 22:38 75 16 99 Full Face 40 11/19/18 22:02 80 25 99 Full Face 40 11/19/18 21:46 74 11/19/18 21:15 98.7 87 24 128/66 (86) 99 11/19/18 21:15 40 11/19/18 21:15 Bi-pap 11/19/18 21:11 83 30 98 Full Face 40 11/19/18 20:22 98 Bi-pap 40 11/19/18 20:22 Bi-pap 40 11/19/18 20:00 97.7 80 18 150/79 (102) 100 11/19/18 16:30 74 19 96 Full Face 40 11/19/18 16:11 90 20 97 Full Face 40 11/19/18 16:00 98.3 66 20 124/76 (92) 97 Intake and Output 11/19/18 11/20/18 19:00 07:00 Intake Total 720 ml Output Total 2000 ml Balance 720 ml -2000 ml Intake Oral 720 ml Output Urine Total 2000 ml # Bowel Movements 3 Laboratory Tests 11/20/18 04:20: Sodium Level 140, Potassium Level 4.4, Chloride Level 102, Carbon Dioxide Level 33H, Anion Gap 5, Blood Urea Nitrogen 23H, Creatinine 0.9, Estimat Glomerular Filtration Rate > 60, Glucose Level 290#H, Calcium Level 8.4L, Total Bilirubin 0.1L, Aspartate Amino Transf (AST/SGOT) 20, Alanine Aminotransferase (ALT/SGPT) 48, Alkaline Phosphatase 72, Total Protein 6.3L, Albumin 2.8L, Globulin 3.5, Albumin/Globulin Ratio 0.8L Height (Feet): 5 Height (Inches): 1.00 Weight (Pounds): 204 General Appearance: no apparent distress, alert, obese Neurologic: oriented x 3, responsive, depressed affect Jayy Andino MD Nov 20, 2018 15:04
[2018-11-20 16:00] VITALS: BP 143/74
--- NOTE | 2018-11-20 16:01 | General Progress Note ---
Assessment/Plan Problem List: (1) Hypoxia ICD Codes: R09.02 - Hypoxia SNOMED: 722568714 (2) Acute dyspnea (3) Hypertension, malignant ICD Codes: I10 - Hypertension, malignant SNOMED: 25018942 (4) CHF (5) Toxic metabolic encephalopathy ICD Codes: G92 - Toxic encephalopathy SNOMED: 398192570 (6) COPD exacerbation ICD Codes: J44.1 - COPD exacerbation SNOMED: 151779048 Status: stable, progressing Assessment/Plan continuous bipap(at night and daily prn) steroids per pulm diuretics/aceteozolamide resp rx monitor abg cardiac rx monitor bs topical lidoderm clotrimazole LTAC once stable/improved Subjective ROS Limited/Unobtainable: No Constitutional: Reports: malaise, weakness HEENT: Reports: no symptoms Cardiovascular: Reports: no symptoms Respiratory: Reports: cough, shortness of breath Gastrointestinal/Abdominal: Reports: no symptoms Genitourinary: Reports: no symptoms Neurologic/Psychiatric: Reports: no symptoms Endocrine: Reports: no symptoms Hematologic/Lymphatic: Reports: no symptoms Allergies: Coded Allergies: AMOXICILLIN (Verified Allergy, Mild, RASH HIVES, 09/29/13) ERYTHROMYCIN BASE (Unverified Allergy, Unknown, 10/13/17) IODINE (Verified Allergy, Unknown, 09/29/13) PENICILLINS (Verified Allergy, Unknown, RASH HIVES, 09/29/13) All Systems: reviewed and negative except above Subjective transferred to [facility] because of need for continuous bipap. Objective Last 24 Hour Vital Signs Date Time Temp Pulse Resp B/P (MAP) Pulse Ox O2 Delivery O2 Flow Rate FiO2 11/20/18 15:10 84 19 Bi-pap 40 11/20/18 15:10 84 19 99 Full Face 40 11/20/18 13:34 94 11/20/18 13:00 86 26 96 Full Face 40 11/20/18 12:00 99.1 95 22 148/85 (106) 92 11/20/18 12:00 Nasal Cannula 3.0 11/20/18 11:18 90 22 93 11/20/18 09:21 83 17 98 Full Face 40 11/20/18 08:00 97.9 86 22 149/69 (95) 97 11/20/18 08:00 Bi-pap 11/20/18 07:54 99 11/20/18 07:25 98 Nasal Cannula 32 11/20/18 07:25 Nasal Cannula 3.0 32 11/20/18 07:25 100 20 98 11/20/18 04:00 85 11/20/18 04:00 40 11/20/18 04:00 Bi-pap 11/20/18 04:00 98.7 80 24 131/79 (96) 99 11/20/18 00:57 73 15 99 Full Face 40 11/20/18 00:00 40 11/20/18 00:00 98.3 73 18 144/71 (95) 100 11/20/18 00:00 Bi-pap 11/20/18 00:00 70 11/19/18 22:38 75 16 99 Full Face 40 11/19/18 22:02 80 25 99 Full Face 40 11/19/18 21:46 74 11/19/18 21:15 98.7 87 24 128/66 (86) 99 11/19/18 21:15 40 11/19/18 21:15 Bi-pap 11/19/18 21:11 83 30 98 Full Face 40 11/19/18 20:22 98 Bi-pap 40 11/19/18 20:22 Bi-pap 40 11/19/18 20:00 97.7 80 18 150/79 (102) 100 11/19/18 16:30 74 19 96 Full Face 40 11/19/18 16:11 90 20 97 Full Face 40 11/19/18 16:00 98.3 66 20 124/76 (92) 97 Intake and Output 11/19/18 11/20/18 19:00 07:00 Intake Total 720 ml Output Total 2000 ml Balance 720 ml -2000 ml Intake Oral 720 ml Output Urine Total 2000 ml # Bowel Movements 3 Laboratory Tests 11/20/18 04:20: Sodium Level 140, Potassium Level 4.4, Chloride Level 102, Carbon Dioxide Level 33H, Anion Gap 5, Blood Urea Nitrogen 23H, Creatinine 0.9, Estimat Glomerular Filtration Rate > 60, Glucose Level 290#H, Calcium Level 8.4L, Total Bilirubin 0.1L, Aspartate Amino Transf (AST/SGOT) 20, Alanine Aminotransferase (ALT/SGPT) 48, Alkaline Phosphatase 72, Total Protein 6.3L, Albumin 2.8L, Globulin 3.5, Albumin/Globulin Ratio 0.8L Height (Feet): 5 Height (Inches): 1.00 Weight (Pounds): 204 Objective General Appearance: WD/WN, alert Neck: supple Cardiovascular: regular rhythm Respiratory/Chest: expiratory wheezing Abdomen: normal bowel sounds, non tender, no organomegaly Edema: no edema noted Arm (L), no edema noted Arm (R), no edema noted Leg (L), no edema noted Leg (R), no edema noted Pedal (L), no edema noted Pedal (R), no edema noted Generalized Neurologic: occupational therapy program director II-XII grossly normal, alert, oriented x 3 Floyd Downey MD Nov 20, 2018 16:01
--- NOTE | 2018-11-20 16:57 | NUR ---
Social Service Note Patient accepted at [facility] [address] [address], Room 12A. Nurse to call report to [phone]. Transportation arranged with [facility] time 1929. Message left for dgt informing her of dc. SW notified Dr. Downey and Dr. Caruso who are agree with dc plan.
--- NOTE | 2018-11-20 17:09 | NUR ---
RESPIRATORY NOTE: PT. PLACED ON BIPAP WITH CURRENT SETTING POST ABG RESULTS. PT TOLERATING BIPAP WELL. NO SOB NOTED AT THIS TIME.
--- NOTE | 2018-11-20 18:00 | NUR ---
NURSE NOTES: Informed Dr. Caruso for the latest ABG results and he said to put patient on bipap en route to [facility]. Received order from Dr. Downey for her to continue all hospital medications. Carried out.
--- NOTE | 2018-11-20 18:44 | NUR ---
NURSE NOTES: Spoke to Chapo from [facility], Nursing Pyrotechnist and gave report.
--- NOTE | 2018-11-20 19:06 | NUR ---
HAND-OFF: Report given to CYNDY Leung. Patient stable.
--- NOTE | 2018-11-20 19:21 | NUR ---
NURSE NOTES: Received patient from [facility]. Patient is resting comfortably and showing no signs and symptoms of pain and/or distress. Awaiting ambulance to transfer patient to [facility]. Will continue plan of care.
[2018-11-20 20:00] VITALS: BP 132/73
--- NOTE | 2018-11-20 21:50 | NUR ---
NURSE NOTES: [facility] present to transfer patient to [facility]. Report given to [facility]. Patient is stable.
--- NOTE | 2018-11-21 01:15 | Progress Note ---
DATE: 11/19/2018 Late Entry SUBJECTIVE: The patient was seen and evaluated. Case was reviewed with primary care physician. The patient continues to have shortness of breath, requiring BiPAP continuously at night and on most of the day other than eating and moving to the bathroom. She is somewhat less short of breath, but has not improved significantly. OBJECTIVE: VITAL SIGNS: Blood pressure 124/58, heart rate 70 to 92, respiratory 16 to 22. She is afebrile. Monitored rhythm sinus. LUNGS: Diminished breath sounds. Few expiratory wheezes. Scattered rhonchi. No accessory muscle use. ABDOMEN: Paradoxical abdominal motion. HEART: Regular rhythm and rate. Normal S1 and S2 with a fourth heart sound. EXTREMITIES: Trace dependent edema. LABORATORY DATA: White count 9 and hemoglobin 8.9. Sodium 141, potassium 4.3, bicarbonate 35, BUN 23, creatinine 0.9, and albumin 2.6. Magnesium 2.0. Pro-natriuretic peptide 149. ABG, 7.24, 82, 88. IMPRESSION: 1. Acute on chronic respiratory acidosis. 2. Acute on chronic diastolic congestive heart failure, now clinically compensated. 3. Moderate protein-calorie malnutrition. 4. Chronic obstructive pulmonary disease exacerbation. 5. Paroxysmal bronchospasm. 6. Compensatory metabolic alkalosis. 7. Anemia. 8. Paroxysmal atrial fibrillation. PLAN: 1. BiPAP support. 2. Respiratory hygiene. 3. Hold additional diuresis. 4. Acetazolamide until bicarb levels closer to 30. 5. Amiodarone for arrhythmia suppression. 6. Apixaban for cardioembolic prophylaxis. Werner Martinez M.D. DR: DELMA JOB#: [id number] CC:
--- NOTE | 2018-11-21 01:45 | Progress Note ---
DATE: 11/20/2018 CARDIOLOGY PROGRESS NOTE SUBJECTIVE: The patient's condition is not improved. She continues to have respiratory distress, requiring BiPAP support, and her acid-base parameters have not improved. OBJECTIVE: VITAL SIGNS: Blood pressure 132/73, pulse 83, respiratory rate 15, afebrile, and oxygen saturation on 3 liters 99%. LUNGS: Diminished breath sounds. Few expiratory wheezes. HEART: Regular rhythm and rate. Normal S1 and S2. ABDOMEN: Soft. No edema. LABORATORY DATA: Potassium 4.4, BUN 23, creatinine 0.9, and glucose is 290. Albumin 2.8. IMPRESSION: Chronic obstructive pulmonary disease exacerbation; persistent bronchospasm; persisting compensatory metabolic alkalosis; acute on chronic respiratory acidosis; persisting acute on chronic diastolic congestive heart failure, compensated; and paroxysmal atrial fibrillation. PLAN: She will require prolonged pulmonary management and is being transferred to LTAC. Medication regimen reviewed and reconciled. Can discontinue acetazolamide maintenance diuretic based on clinical parameters. Continue steroids, inhaled bronchodilators, and BiPAP support. Apixaban for cardioembolic prophylaxis and amiodarone for arrhythmia suppression. Continued use of the latter may have to be readdressed should there be signs of pulmonary toxicity. Werner Martinez M.D. DR: MIC JOB#: [id number] CC:
--- NOTE | 2018-11-22 13:12 | Discharge Summary ---
Discharge Summary Discharge Summary _ DATE OF ADMISSION: 11/10/2018 DATE OF DISCHARGE: DISCHARGED BY: Dr. Downey REASON FOR ADMISSION: 58 years old female with past medical history of severe COPD, hypertension, diabetes mellitus, paroxysmal atrial fibrillation, history of breast cancer, status post mastectomy, sleep apnea, obesity, presented to emergency room with difficulty breathing, hypoxia and chest tightness. Patient presented from the long-term facility , where she was using BiPAP with incorrect mask. The nursing staff tried to adjust and fit the mask properly , but the patient stated that it did not create a correct seal. Chest x-ray revealed cardiomegaly and bilateral interstitial edema. Patient was placed on the BiPAP. Patient received diuresis with Lasix, breathing treatment with bronchodilator, frist dose of steroids and was admitted for further evaluation and management CONSULTANTS: [facility] maker pulmonary Dr. Caruso psychiatrist [facility]: Patient admitted to direct observational unit. Supplemental oxygen titrated to keep pulse oximetry above 90%. Pulmonary toilet with bronchodilator provided [id number] and as needed. Patient started on IV steroids with gradual tapering down. Antitussive provided as needed. Revatio was continued. Patient was followed-up with chest x-ray and ABGs. ABG revealed persistent respiratory acidosis and hypercapnia. Patient started on Diamox in order to reset hypercapnia and correct acid base imbalances. Venous duplex of bilateral lower extremity revealed no evidence of acute DVT. DVT prophylaxis provided. Leukocytosis resolved, wall likely due to steroids, no fevers.. BiPAP provided at nighttime. Smoking abstinence was discussed with patient in details. Patient declined nicotine patch. Use of BiPAP at nighttime and compliance with medication regimen was encouraged and stressed. Per trekking guide, patient prognosis was guarded with her poor lung function. He recommended planning to discharge to rehabilitation facility versus long- term acute care facility. Patient was on diuretic with close monitoring of volumes and cardiorenal parameters. Echocardiogram demonstrated preserved ejection fraction 55% with mild left ventricular hypertrophy. No evidence of wall motion abnormality. Pro BNP from initial 2195 down to 149. Blood pressure was closely monitored and remained stable. Hemoglobin and hematocrit were closely monitored closely monitored with goal to keep hemoglobin above 7. Prior to discharge hemoglobin 8.9, hematocrit 30.7. Blood sugar was closely monitored and managed with sliding scale of insulin as needed. Patient with evidence of hyperglycemia, likely due to steroids, steroids were gradually tapered down. GI prophylaxis provided. Pain management was addressed as needed. Supportive care provided. Symptomatic treatment provided. ABG continued to demonstrate respiratory acidosis. On day of discharge pH 7.29 and PCO2 of 79. Placement was arranged at LTAC/ at [facility]. Patient was stable for transfer. FINAL DIAGNOSES: COPD with recurrent exacerbation Acute on chronic hypoxemic hypercapnic respiratory failure Acute on chronic diastolic congestive heart failure Acute on chronic respiratory acidosis and hypercapnia Toxic metabolic encephalopathy Multifactorial anemia Paroxysmal atrial fibrillation Sleep apnea Diabetes mellitus Acute on chronic kidney disease Hypertensive heart disease DISCHARGE MEDICATIONS: List of medication was sent to accepting DISCHARGE INSTRUCTIONS: Patient was transferred to long-term acute care facility/[facility]. Follow-up with a provider at the hospital I have been assigned to dictate discharge summary for this account. I was not involved in the patient's management. Elissa Cho NP Nov 22, 2018 13:12
== END 2018-11-20 21:55 | DRG 189 ==
LOC: EDBD 14:40 → EDBEDREQ 15:08 → EMR 16:48 → 2W 16:52 → EDBEDREQSVC 17:35 → EDBEDREQ 18:06 → EMR 19:08 → 2W 21:39 → 2E 11-15 17:42 → 4E 11-18 11:09 → 2W 11-19 21:29
PROC: 5A09357 Assistance with Respiratory Ventilation, Less than 24 Consecutive Hours, Continuous Positive Airway Pressure (ICD-10-PCS; principal; 2018-11-10)
DX: J96.21 Acute and chronic respiratory failure with hypoxia (principal); I50.33 Acute on chronic diastolic (congestive) heart failure; G92 Toxic encephalopathy; I13.0 Hypertensive heart and chronic kidney disease with heart failure and stage 1 through stage 4 chronic kidney disease, or unspecified chronic kidney disease; J44.1 Chronic obstructive pulmonary disease with (acute) exacerbation; N17.9 Acute kidney failure, unspecified; E87.4 Mixed disorder of acid-base balance; E44.0 Moderate protein-calorie malnutrition; F33.9 Major depressive disorder, recurrent, unspecified; I43 Cardiomyopathy in diseases classified elsewhere; J96.22 Acute and chronic respiratory failure with hypercapnia; N18.9 Chronic kidney disease, unspecified; D72.829 Elevated white blood cell count, unspecified; D64.9 Anemia, unspecified; I48.0 Paroxysmal atrial fibrillation; E11.65 Type 2 diabetes mellitus with hyperglycemia; E11.22 Type 2 diabetes mellitus with diabetic chronic kidney disease; E11.40 Type 2 diabetes mellitus with diabetic neuropathy, unspecified; E66.9 Obesity, unspecified; Z68.38 Body mass index [BMI] 38.0-38.9, adult; Z90.11 Acquired absence of right breast and nipple; K21.9 Gastro-esophageal reflux disease without esophagitis; G47.33 Obstructive sleep apnea (adult) (pediatric); F41.9 Anxiety disorder, unspecified; I27.20 Pulmonary hypertension, unspecified; Z80.1 Family history of malignant neoplasm of trachea, bronchus and lung; Z79.4 Long term (current) use of insulin; Z85.3 Personal history of malignant neoplasm of breast; Z79.01 Long term (current) use of anticoagulants
CPT/HCPCS: 36415; 36600; 71045; 80053; 81001; 82803; 82962; 83690; 83735; 83880; 84484; 85007; 85025; 85610; 85730; 86710; 87081; 93005; 93306; 93970; 94640; 94660; 94664; 94760; 96365; 96375; 99285; J1815; J7620; J8499

== ENCOUNTER 2019-08-06 17:04 | Inpatient (IN) | payer MEDICARE, MEDICAID ==
[~2019-08-06] VITALS: Ht 154.9 cm; Wt 96.8 kg
[~2019-08-06 17:04] MED LIST changes: +PREDNISONE10 M2 PO
[2019-08-06 17:30] VITALS: BP 126/83
--- NOTE | 2019-08-06 18:13 | Emergency Room Report ---
History of Present Illness General Chief Complaint: Dyspnea/Respdistress Source: Patient, Medical Record Present Illness HPI 59-year-old female history of COPD presents with acute shortness of breath today , started while she was in the waiting room, patient was sent here to be evaluated for an arterial blood gas, patient reports dyspnea, no nausea no vomiting, no abdominal pain she does endorse some chest tightness no aggravating relieving factors severity is severe, constant patient presents for evaluation. Allergies: Coded Allergies: AMOXICILLIN (Verified Allergy, Mild, RASH HIVES, 09/29/13) ERYTHROMYCIN BASE (Unverified Allergy, Unknown, 10/13/17) IODINE (Verified Allergy, Unknown, 09/29/13) PENICILLINS (Verified Allergy, Unknown, RASH HIVES, 09/29/13) Patient History Past Medical History: see triage record Reviewed Nursing Documentation: PMH: Agreed; PSxH: Agreed Nursing Documentation-PMH Past Medical History: No History, Except For Hx Cardiac Problems: Yes Hx Hypertension: No Hx Pacemaker: No Hx Asthma: No Hx COPD: Yes Hx Diabetes: Yes Hx Cancer: No Hx Gastrointestinal Problems: No Hx Dialysis: No Hx Neurological Problems: No Hx Cerebrovascular Accident: No Hx Transient Ischemic Attacks: No Hx Dementia: No Hx Alzheimer's Disease: No Hx Parkinson's Disease: No Hx Meningitis: No Hx Encephalitis: No Hx Seizures: No Hx Epilepsy: No Hx Multiple Sclerosis: No Hx Cerebral Palsy: No Hx Amyotrophic Lat Sclerosis: No Hx Guillian-[place] Syndrome: No Hx Paralysis: No Hx Peripheral Neuropathy: No Hx Spinal Cord Injury: No Hx Head Trauma: No Hx Traumatic Brain Injury: No Hx Memory Loss: No Hx Concentration Difficulty: No Hx Speech Problem: No Hx Tremors: No Hx Vertigo: No Hx Dizziness: No Hx Syncope: No Hx Headaches: No Hx Aphasia: No Hx Dysphasia: No Hx Numbness: No Hx Weakness: No Hx Fatigue: No Hx Neurologic Surgery: No Hx Brain Shunt: No Review of Systems All Other Systems: negative except mentioned in HPI Physical Exam Vital Signs Date Time Temp Pulse Resp B/P (MAP) Pulse Ox O2 Delivery O2 Flow Rate FiO2 08/06/19 17:21 98.2 90 24 142/72 (95) 82 Nasal Cannula 3.0 Sp02 EP Interpretation: reviewed, normal General Appearance: alert, mild distress Head: normocephalic, atraumatic Eyes: bilateral eye PERRL, bilateral eye EOMI ENT: uvula midline, moist mucus membranes Neck: supple, thyroid normal, supple/symm/no masses Respiratory: decreased breath sounds, accessory muscle use, wheezing Cardiovascular #1: normal peripheral pulses, regular rate, rhythm, no edema, no gallop, no murmur Gastrointestinal: non tender, soft, no guarding, no rebound Musculoskeletal: normal inspection Neurologic: alert, oriented x3 Psychiatric: mood/affect normal Skin: no rash, warm/dry Procedures Critical Care Time Critical Care Time Given the critical condition in which the patient arrived, the patient was immediately assessed by myself and the nurse, and cardiac monitoring initiated due to the potential for rapid decompensation of the patient's clinical condition. During the course of the patient's stay, I spent a considerable amount of time at the bedside performing serial re-evaluations of the patient's hemodynamic and clinical status because of the recognized potential threat to life or limb in this condition. I then had a chance to review not only all of the available current laboratory and radiographic studies obtained today, but I also reviewed old records available to me at the time. Additionally, any ancillary information available including sustainable development policy analyst records were reviewed. Sequential vital signs were obtained. Critical Care time of 31 minutes was performed exclusive of billable procedures. Medical Decision Making Diagnostic Impression: Primary Impression: Dyspnea Qualified Codes: R06.00 - Dyspnea, unspecified Additional Impressions: Hypercapnic respiratory failure Qualified Codes: J96.22 - Acute and chronic respiratory failure with hypercapnia COPD exacerbation ER Course 59 year old female presents with dyspnea,sob, ddx includes pneumonia, copd exacerbation, heart failure Patient on cxr possible infiltrates cefepime started duonebs, steroids, CO2 of 80 seen, bipap started, patient felt better Patient admitted to Dr. Downey step down unit Laboratory Tests Test 08/06/19 17:07 08/06/19 18:00 Arterial Blood pH 7.270 (7.350-7.450) Arterial Blood Partial Pressure CO2 85.2 mmHg (35.0-45.0) *H Arterial Blood Partial Pressure O2 47.8 mmHg (75.0-100.0) Arterial Blood HCO3 38.2 mmol/L (22.0-26.0) H Arterial Blood Oxygen Saturation 75.5 % (95-100) *L Arterial Blood Base Excess 8.9 (-2-2) H Rico Test Positive White Blood Count 9.7 K/UL (4.8-10.8) Red Blood Count 3.65 M/UL (4.20-5.40) L Hemoglobin 9.6 G/DL (12.0-16.0) L Hematocrit 31.5 % (37.0-47.0) L Mean Corpuscular Volume 86 FL (80-99) Mean Corpuscular Hemoglobin 26.3 PG (27.0-31.0) L Mean Corpuscular Hemoglobin Concent 30.5 G/DL (32.0-36.0) L Red Cell Distribution Width 12.0 % (11.6-14.8) Platelet Count 262 K/UL (150-450) Mean Platelet Volume 7.3 FL (6.5-10.1) Neutrophils (%) (Auto) 70.2 % (45.0-75.0) Lymphocytes (%) (Auto) 19.5 % (20.0-45.0) L Monocytes (%) (Auto) 6.8 % (1.0-10.0) Eosinophils (%) (Auto) 0.5 % (0.0-3.0) Basophils (%) (Auto) 3.0 % (0.0-2.0) H Prothrombin Time 9.8 SEC (9.30-11.50) Prothrombin Time INR 0.9 (0.9-1.1) PTT 25 SEC (23-33) Sodium Level 142 MMOL/L (136-145) Potassium Level 4.8 MMOL/L (3.5-5.1) Chloride Level 99 MMOL/L (98-107) Carbon Dioxide Level 37 MMOL/L (21-32) H Anion Gap 7 mmol/L (5-15) Blood Urea Nitrogen 15 mg/dL (7-18) Creatinine 1.2 MG/DL (0.55-1.30) Estimate Glomerular Filtration Rate 55.4 mL/min (>60) Glucose Level 185 MG/DL (74-106) H Calcium Level 9.3 MG/DL (8.5-10.1) Total Bilirubin Pending Aspartate Amino Transferase (AST) Pending Alanine Aminotransferase (ALT) Pending Alkaline Phosphatase Pending Total Creatine Kinase Pending Creatine Kinase MB Pending Troponin I 0.000 ng/mL (0.000-0.056) Pro-B-Type Natriuretic Peptide Pending Total Protein Pending Albumin Pending Globulin Pending Lipase Pending EKG Diagnostic Results EKG Time: 17:26 EP Interpretation: NSR, rate 89, QTc 476, no acute ST elevations, normal axis Rhythm Strip Diag. Results Rhythm Strip Time: 18:22 EP Interpretation: yes Rate: 83 Rhythm: NSR, no PVC's, no ectopy Chest X-Ray Diagnostic Results Chest X-Ray Diagnostic Results : Chest X-Ray Ordered: Yes # of Views/Limited/Complete: 1 View Indication: Shortness of Breath Interpretation: other - Possible left pneumonia versus atelectasis, hazy infiltrates possibly on the right side Impression: Other - Pneumonia versus atelectasis Electronically Signed by: Javier Pan MD Last Vital Signs Date Time Temp Pulse Resp B/P (MAP) Pulse Ox O2 Delivery O2 Flow Rate FiO2 08/06/19 17:21 98.2 90 24 142/72 (95) 82 Nasal Cannula 3.0 Disposition: ADMITTED INPATIENT Condition: Serious Javier Pan MD Aug 06, 2019 18:13
[2019-08-06] MEDS ORDERED: Dexamethasone 4mg/ml vial IVP ONE (18:15)
[2019-08-06] MEDS ORDERED: Cefepime HCl 2 GM in D5W 55 ML IVPB ONE (18:15)
--- NOTE | 2019-08-06 18:25 | Diagnostic Imaging Report ---
EXAM: XR Chest, 1 View CLINICAL HISTORY: DYSPNEA TECHNIQUE: Frontal view of the chest. COMPARISON: Chest radiograph on 11 10 2018 FINDINGS: Hardware: None. Lungs pleura: Similar bibasilar opacities which may represent atelectasis versus pneumonia, superimposed on a previously reported right Bochdalek hernia. Pulmonary vasculature congestion edema. Possible small bilateral pleural effusions. Heart mediastinum: Stable enlargement of the cardiac silhouette. Atherosclerotic calcifications in the aorta. Soft tissues: Unremarkable. Bones: No acute fracture. Degenerative changes of the left glenohumeral joint. Upper abdomen: Normal. IMPRESSION: Similar bibasilar opacities which may represent atelectasis versus pneumonia, superimposed on a previously reported right Bochdalek hernia. Pulmonary vasculature congestion edema. Possible small bilateral pleural effusions.
--- NOTE | 2019-08-06 18:30 | NUR ---
ED Nurse Note: Patient wheeled herself in ED for SOB. Patient demanded oxygen and to be seen by a doctor. Registration informed patient needs to wait but patient yelled, "I need oxygen now!" IV site established on LAC 20G, patent and asymptomatic. Simple mask applied, SPo2 97%. Breath sounds are diminshed and wheezing noted. A/Ox4.
[2019-08-06 18:33] LABS: EOSINOPHILS % (AUTO) 0.5 % (0.0-3.0); HEMATOCRIT 31.5 % (37.0-47.0); HEMOGLOBIN 9.6 G/DL (12.0-16.0); LYMPHOCYTES % (AUTO) 19.5 % (20.0-45.0); MEAN CORPUSCULAR VOLUME 86 FL (80-99); MONOCYTES % (AUTO) 6.8 % (1.0-10.0); NEUTROPHILS % (AUTO) 70.2 % (45.0-75.0); PLATELET COUNT 262 K/UL (150-450); RED BLOOD COUNT 3.65 M/UL (4.20-5.40); WHITE BLOOD COUNT 9.7 K/UL (4.8-10.8)
[2019-08-06 18:43] LABS: INR 0.9 (0.9-1.1)
[2019-08-06] MEDS: Albuterol ud Inhalation HHN SCH (18:46)
[2019-08-06] MEDS: Ipratropium 0.02% Inh Soln 2.5ml UD HHN SCH (18:46)
[2019-08-06 18:47] LABS: ANION GAP 7 mmol/L (5-15); BLOOD UREA NITROGEN 15 mg/dL (7-18); CALCIUM 9.3 MG/DL (8.5-10.1); CARBON DIOXIDE 37 MMOL/L (21-32); CHLORIDE 99 MMOL/L (98-107); CREATININE 1.2 MG/DL (0.55-1.30); POTASSIUM 4.8 MMOL/L (3.5-5.1); SODIUM 142 MMOL/L (136-145)
[2019-08-06] MEDS: Levalbuterol Inh UD 1.25mg/0.5ml HHN SCH (19:00)
[2019-08-06] MEDS ORDERED: DiphenhydrAMINE 50mg/ml Inj IVP ONE (19:00)
[2019-08-06 19:06] LABS: ALANINE AMINOTRANSFERASE 16 U/L (12-78); ALBUMIN 3.1 G/DL (3.4-5.0); ALBUMIN/GLOBULIN RATIO 0.7 (1.0-2.7); ALKALINE PHOSPHATASE 76 U/L (46-116); ASPARTATE AMINO TRANSFERASE 11 U/L (15-37); BILIRUBIN,TOTAL 0.2 MG/DL (0.2-1.0); CKMB 0.8 NG/ML (0.0-3.6); CREATINE KINASE 45 U/L (26-308)
--- NOTE | 2019-08-06 19:09 | NUR ---
ED Nurse Note: Report given to CYNDY Adler.
[2019-08-06] MEDS ORDERED: Revatio 20mg tab ORAL SCH (20:00)
[2019-08-06] MEDS: Montelukast 10mg tablet ORAL SCH (21:56)
[2019-08-06] MEDS: Sertraline 50mg tab ORAL SCH (21:57)
[2019-08-06] MEDS: Solu-MEDROL 40mg Inj IVP SCH (21:57)
[2019-08-06] MEDS: HydrALAZINE 25mg tab ORAL SCH (22:34)
[2019-08-06] MEDS: NovoLOG Insulin Flexpen SUBQ SCH (22:42)
--- NOTE | 2019-08-06 23:32 | NUR ---
NURSE NOTES: Placed call to [facility] per pt request for Atarax every 4 hours, left message, awaiting call back.
[2019-08-07] VITALS (7 sets, daily range): BP systolic 136–161; BP diastolic 67–84
[2019-08-07] MEDS: Revatio 20mg tab ORAL SCH ×4 (01:05→18:41)
--- NOTE | 2019-08-07 04:05 | NUR ---
ED Nurse Note: Patient was admited to SDU due to resp disstress. Patient was transfered to the unit via gurney, by ACLS protocol , with all belongings.AAO x4, VSS at this time.
[2019-08-07] MEDS: HydrALAZINE 25mg tab ORAL SCH ×3 (07:13→21:14)
[2019-08-07] MEDS: Levalbuterol Inh UD 1.25mg/0.5ml HHN SCH ×4 (07:14→20:02)
[2019-08-07] MEDS: NovoLOG Insulin Flexpen SUBQ SCH ×4 (07:20→21:16)
--- NOTE | 2019-08-07 08:00 | NUR ---
NURSE NOTES: Received change of shift report from Virginia NAYLOR. Pt is awake, alert, oriented x4. Pt is on 3L of oxygen via nasal cannula currently at 94% O2Sat with bilateral inspiratory/expiratory diminished lung sounds with intermittent wheezes and rhonchi. night monitor displays SR with heart rate in the 90's with bounding peripheral pulses. Pt has left upper arm #20G peripheral IV access, currently saline locked, patent/intact. Abdomen is large, round, soft, nontender to touch with hypoactive bowel sounds. Pt has external catheter in place, draining clear/yellow urine. Skin is intact. Bed is locked, with three side rails up, in lowest position, head of bed at high flanagan's, and call light within easy reach. Pt is suspicious, impulsive, verbally abusive, yelling at staff members "you work for me!! without me you won't have a job!! I control everything!! You do what I say!!". Pt was reassured and comforted. Will continue to monitor pt and with plan of care per MD orders and protocol.
[2019-08-07] MEDS ORDERED: Anastrazole 1mg tab NG SCH (09:00)
[2019-08-07] MEDS: Docusate 100mg cap ORAL SCH ×2 (09:46→18:41)
[2019-08-07] MEDS: Aspirin Baby 81mg ORAL SCH (09:46)
[2019-08-07] MEDS: dilTIAZem HCl CD 120mg cap ORAL SCH (09:47)
[2019-08-07] MEDS: Solu-MEDROL 40mg Inj IVP SCH ×2 (09:48→22:22)
--- NOTE | 2019-08-07 10:00 | NUR ---
NURSE NOTES: AM meds were administered. RT is at bedside, ABGs were drawn and pt placed back on Bipap due to declining ABG results per Dr Downey's instructions.
--- NOTE | 2019-08-07 10:16 | Pulmonology Progress Note ---
Assessment/Plan Assessment/Plan Pulmonary Consultation HPI Patient is a 59-year-old female with previous history of COPD, Cardiac Disease, DM, presents with acute shortness of breath today, noted to have Pneumonias versus Atelectasis, mild Pulmonary Congestion, Hypercapneic Respiratory Failure. Denies nausea, vomiting, abdominal pain she does endorse some chest tightness no aggravating relieving factors s. Allergies: AMOXICILLIN ERYTHROMYCIN BASE IODINE PENICILLINS Past Medical History: COPD, Cardiac Disease, Diabetes All Other Systems: negative except mentioned in HPI Physical Exam Vital Signs Noted General Appearance: alert, mild distress Head: normocephalic, atraumatic Eyes: bilateral eye PERRL, bilateral eye EOMI ENT: uvula midline, moist mucus membranes Neck: supple, thyroid normal, supple/symm/no masses Respiratory: decreased breath sounds, accessory muscle use, wheezing Cardiovascular: normal peripheral pulses, regular rate, rhythm, HS1, HS2 normal , no edema, no gallop, no murmur Gastrointestinal: non tender, soft, no guarding, no rebound Musculoskeletal: normal inspection Neurologic: alert, oriented x3 Impression: Pneumonia COPD exaccerbation Dyspnea Hypercapnic hypoxic respiratory failure Cardiac disease Diabetes Plan IV Antibiotics Solumedrol O2 PRN BiPAP PRN HHN PPX PRECISION STRUCTURAL METAL FITTER meds Monitor labs Laboratory Tests Test 08/06/19 17:07 08/06/19 18:00 Arterial Blood pH 7.270 (7.350-7.450) Arterial Blood Partial Pressure CO2 85.2 mmHg (35.0-45.0) *H Arterial Blood Partial Pressure O2 47.8 mmHg (75.0-100.0) Arterial Blood HCO3 38.2 mmol/L (22.0-26.0) H Arterial Blood Oxygen Saturation 75.5 % (95-100) *L Arterial Blood Base Excess 8.9 (-2-2) H Rico Test Positive White Blood Count 9.7 K/UL (4.8-10.8) Red Blood Count 3.65 M/UL (4.20-5.40) L Hemoglobin 9.6 G/DL (12.0-16.0) L Hematocrit 31.5 % (37.0-47.0) L Mean Corpuscular Volume 86 FL (80-99) Mean Corpuscular Hemoglobin 26.3 PG (27.0-31.0) L Mean Corpuscular Hemoglobin Concent 30.5 G/DL (32.0-36.0) L Red Cell Distribution Width 12.0 % (11.6-14.8) Platelet Count 262 K/UL (150-450) Mean Platelet Volume 7.3 FL (6.5-10.1) Neutrophils (%) (Auto) 70.2 % (45.0-75.0) Lymphocytes (%) (Auto) 19.5 % (20.0-45.0) L Monocytes (%) (Auto) 6.8 % (1.0-10.0) Eosinophils (%) (Auto) 0.5 % (0.0-3.0) Basophils (%) (Auto) 3.0 % (0.0-2.0) H Prothrombin Time 9.8 SEC (9.30-11.50) Prothrombin Time INR 0.9 (0.9-1.1) PTT 25 SEC (23-33) Sodium Level 142 MMOL/L (136-145) Potassium Level 4.8 MMOL/L (3.5-5.1) Chloride Level 99 MMOL/L (98-107) Carbon Dioxide Level 37 MMOL/L (21-32) H Anion Gap 7 mmol/L (5-15) Blood Urea Nitrogen 15 mg/dL (7-18) Creatinine 1.2 MG/DL (0.55-1.30) Estimate Glomerular Filtration Rate 55.4 mL/min (>60) Glucose Level 185 MG/DL (74-106) H Calcium Level 9.3 MG/DL (8.5-10.1) Total Bilirubin Pending Aspartate Amino Transferase (AST) Pending Alanine Aminotransferase (ALT) Pending Alkaline Phosphatase Pending Total Creatine Kinase Pending Creatine Kinase MB Pending Troponin I 0.000 ng/mL (0.000-0.056) Pro-B-Type Natriuretic Peptide Pending Total Protein Pending Albumin Pending Globulin Pending Lipase Pending EKG Diagnostic Results EKG Time: 17:26 EKG: NSR, rate 89, QTc 476, no acute ST elevations, normal axis Chest X-Ray: Possible left pneumonia versus atelectasis, hazy infiltrates possibly on the right side, mild vascular congestion Subjective ROS Limited/Unobtainable: No Allergies: Coded Allergies: AMOXICILLIN (Verified Allergy, Mild, RASH HIVES, 09/29/13) ERYTHROMYCIN BASE (Unverified Allergy, Unknown, 10/13/17) IODINE (Verified Allergy, Unknown, 09/29/13) PENICILLINS (Verified Allergy, Unknown, RASH HIVES, 09/29/13) Objective Last 24 Hour Vital Signs Date Time Temp Pulse Resp B/P (MAP) Pulse Ox O2 Delivery O2 Flow Rate FiO2 08/07/19 09:47 96 159/87 08/07/19 09:37 96 08/07/19 07:39 79 20 96 Nasal Cannula 3.0 76 20 92 08/07/19 07:15 159/87 08/07/19 07:13 159/87 08/07/19 06:58 35 08/07/19 04:01 76 125/67 98 Simple Mask 3.0 08/07/19 04:01 98.4 16 148/77 85 3.0 45 08/07/19 04:00 Bi-pap Bi-pap 08/07/19 04:00 97.7 88 17 161/71 (101) 92 08/07/19 03:56 90 08/07/19 03:20 89 16 85 Full Face 45 08/07/19 01:29 90 18 88 Full Face 30 08/07/19 00:00 Bi-pap Bi-pap 08/07/19 00:00 98.4 98 18 148/77 (100) 88 08/07/19 00:00 105 08/06/19 22:34 133/109 08/06/19 21:29 86 20 85 Full Face 35 08/06/19 21:04 Bi-pap Bi-pap 08/06/19 18:47 85 18 100 Room Air 21 80 18 98 08/06/19 17:47 88 15 93 Full Face 50 08/06/19 17:40 88 15 92 Nasal Cannula 3.0 08/06/19 17:30 83 20 Simple Mask 08/06/19 17:30 98.1 83 18 126/83 Simple Mask 08/06/19 17:21 98.2 90 24 142/72 (95) 82 Nasal Cannula 3.0 Intake and Output 08/06/19 08/07/19 19:00 07:00 Intake Total 800 ml Output Total 700 ml Balance 100 ml Intake Oral 800 ml Output Urine Total 700 ml # Voids 1 Laboratory Tests 08/06/19 17:07: Arterial Blood pH 7.270L, Arterial Blood Partial Pressure CO2 85.2*H, Arterial Blood Partial Pressure O2 47.8*L, Arterial Blood HCO3 38.2H, Arterial Blood Oxygen Saturation 75.5*L, Arterial Blood Base Excess 8.9H, Rico Test Positive 08/06/19 18:00: White Blood Count 9.7, Red Blood Count 3.65L, Hemoglobin 9.6L, Hematocrit 31.5L , Mean Corpuscular Volume 86, Mean Corpuscular Hemoglobin 26.3L, Mean Corpuscular Hemoglobin Concent 30.5L, Red Cell Distribution Width 12.0, Platelet Count 262, Mean Platelet Volume 7.3, Neutrophils (%) (Auto) 70.2, Lymphocytes (%) (Auto) 19.5L, Monocytes (%) (Auto) 6.8, Eosinophils (%) (Auto) 0.5, Basophils (%) (Auto) 3.0H, Prothrombin Time 9.8, Prothromb Time International Ratio 0.9, Activated Partial Thromboplast Time 25, Sodium Level 142, Potassium Level 4.8, Chloride Level 99, Carbon Dioxide Level 37H, Anion Gap 7, Blood Urea Nitrogen 15, Creatinine 1.2, Estimat Glomerular Filtration Rate 55.4, Glucose Level 185H, Calcium Level 9.3, Total Bilirubin 0.2, Aspartate Amino Transf (AST/SGOT) 11L, Alanine Aminotransferase (ALT/SGPT) 16, Alkaline Phosphatase 76, Total Creatine Kinase 45, Creatine Kinase MB 0.8, Creatine Kinase MB Relative Index 1.7, Troponin I 0.000, Pro-B-Type Natriuretic Peptide 144H, Total Protein 7.3, Albumin 3.1L, Globulin 4.2, Albumin/Globulin Ratio 0.7L, Lipase 139 08/06/19 19:09: Arterial Blood pH 7.268L, Arterial Blood Partial Pressure CO2 88.0*H, Arterial Blood Partial Pressure O2 163.8H, Arterial Blood HCO3 39.3H, Arterial Blood Oxygen Saturation 98.2, Arterial Blood Base Excess 10.0*H, Rico Test Positive 08/07/19 09:34: Arterial Blood pH 7.337L, Arterial Blood Partial Pressure CO2 70.6*H, Arterial Blood Partial Pressure O2 55.3L, Arterial Blood HCO3 37.0H, Arterial Blood Oxygen Saturation 85.7*L, Arterial Blood Base Excess 9.3*H, Rico Test Positive Current Medications Medications (Trade) Dose Ordered Sig/Sera Route PRN Reason Start Time Stop Time Status Last Admin Dose Admin Acetaminophen (Tylenol) 650 mg Q4H PRN ORAL Pain Scale (6-10) 08/06/19 19:00 09/05/19 18:59 08/06/19 22:33 Anastrozole (Arimidex) 1 mg DAILY NG 08/07/19 09:00 09/06/19 08:59 08/07/19 09:00 Aspirin (ASA) 81 mg DAILY ORAL 08/07/19 09:00 09/06/19 08:59 08/07/19 09:46 Atorvastatin Calcium (Lipitor) 20 mg BEDTIME ORAL 08/06/19 21:00 09/05/19 20:59 08/06/19 21:58 Dextrose (Dextrose 50%) 25 ml Q30M PRN IV Hypoglycemia 08/06/19 19:00 09/05/19 18:59 Dextrose (Dextrose 50%) 50 ml Q30M PRN IV Hypoglycemia 08/06/19 19:00 09/05/19 18:59 Diltiazem HCl (Cardizem CD) 120 mg DAILY ORAL 08/07/19 09:00 09/06/19 08:59 08/07/19 09:47 Docusate Sodium (Colace) 100 mg BID ORAL 08/07/19 09:00 09/06/19 08:59 08/07/19 09:46 Furosemide (Lasix) 20 mg DAILY IV 08/07/19 09:00 09/06/19 08:59 08/07/19 09:48 Hydralazine HCl (Apresoline) 25 mg EVERY 8 HOURS ORAL 08/06/19 22:00 09/05/19 21:59 08/07/19 07:15 Insulin Aspart (NovoLOG) BEFORE MEALS AND HS SUBQ 08/06/19 21:00 09/05/19 20:59 08/07/19 07:20 Levalbuterol HCl (Xopenex) 0.625 mg Q4HRT HHN 08/06/19 19:00 08/11/19 18:59 08/07/19 07:29 Loratadine (Claritin 10mg) 10 mg DAILY ORAL 08/07/19 09:00 09/06/19 08:59 08/07/19 09:46 Methylprednisolone Sodium Succinate (Solu-MEDROL) 30 mg Q12HR IVP 08/06/19 21:00 09/05/19 20:59 08/07/19 09:48 Montelukast Sodium (Singulair) 10 mg QHS ORAL 08/06/19 21:00 09/05/19 20:59 08/06/19 21:56 Ondansetron HCl (Zofran) 4 mg Q6H PRN IVP Nausea & Vomiting 08/06/19 19:00 09/05/19 18:59 Pantoprazole (Protonix) 40 mg ACBREAKFAST ORAL 08/06/19 23:30 09/05/19 23:29 08/07/19 07:15 Sertraline HCl (Zoloft) 100 mg QHS ORAL 08/06/19 21:00 09/05/19 20:59 08/06/19 21:57 Sildenafil Citrate (Revatio) 20 mg ONCE ORAL 08/07/19 01:00 09/06/19 00:59 08/07/19 01:24 Sildenafil Citrate (Revatio) 20 mg TWICE A DAY ORAL 08/06/19 23:30 09/05/19 23:29 08/07/19 09:46 Werner Crump MD Aug 07, 2019 10:16
--- NOTE | 2019-08-07 10:30 | History and Physical Report ---
DATE OF ADMISSION: 08/06/2019 CHIEF COMPLAINT: Respiratory failure. HISTORY OF PRESENT ILLNESS: The patient is a pleasant 59-year-old female, well known to me. She has a history of COPD, hypertension, diabetes, obesity, breast cancer. She presented for an outpatient ABG because of complaints of worsening shortness of breath. She was noted to have a CO2 in the 80s and a pH of 7.37. In light of the abnormal blood gas, she was sent to the emergency room. There, her labs were relatively unremarkable. She was placed on BiPAP and is now admitted for further evaluation and care. PAST MEDICAL HISTORY: As above. PAST SURGICAL HISTORY: Includes mastectomy. CURRENT MEDICATIONS: Reconciled and reviewed. ALLERGIES: Include amoxicillin, vancomycin, penicillin. FAMILY HISTORY: Noncontributory. SOCIAL HISTORY: The patient was previously heavy smoker, but quit. No alcohol. No drugs. REVIEW OF SYSTEMS: GENERAL: No fever or chills. HEENT: No headaches or visual changes. CARDIOPULMONARY: No chest pain. Positive for shortness of breath. GASTROINTESTINAL: No nausea or vomiting. GENITOURINARY: No urgency or frequency. MUSCULOSKELETAL: No joint pain or swelling. NEUROLOGIC: No evidence of seizures. PHYSICAL EXAMINATION: VITAL SIGNS: Temperature 98 degrees, pulse 76, respirations 16, blood pressure 159/87. GENERAL: The patient is well developed, no apparent distress. HEART: Regular rate and rhythm. LUNGS: Clear. ABDOMEN: Soft, nontender, nondistended. EXTREMITIES: Without clubbing, cyanosis, or edema. LABORATORY DATA: Sodium 142, potassium 4.8, chloride 99, bicarb 37, BUN 15, creatinine 1.2. Troponin was negative. Natriuretic peptide level is 144. ASSESSMENT: This is a pleasant female with complaints of shortness of breath secondary to COPD exacerbation. PROBLEM LIST: 1. COPD exacerbation. 2. Hypertensive heart disease. 3. History of osteoarthritis. 4. Diabetes. 5. Obesity. PLAN: 1. Continue BiPAP. 2. Pulmonary consultation. 3. Respiratory treatments. 4. Cautious diuresis. Floyd Downey M.D. DR: NILO JOB#: [id number] CC:
--- NOTE | 2019-08-07 12:00 | NUR ---
NURSE NOTES: Pt continues to be agitated, suspicious of all staff, verbally abusive, yelling "I'm going to beat you all!!!" "I control everything!". Pt is noncompliant with the Bipap, keeps removing the Bipap off her face and O2sat desaturated to low 80s and 70's. Pt is throwing everything on the floor, and yells "now pick it up!!!". Dr Downey was contacted and message left regarding pt's condition. Pt was reassured and comfort measures offered, with pillows/blankets, holding pt's hand, turning TV on for distraction.
--- NOTE | 2019-08-07 12:00 | NUR ---
CASE MANAGEMENT: REVIEW 59Y/FEMALE PRESENTED TO ED FROM HOME CC: SOB IS: HYPERCAPNIC RESP FAILURE . COPD EXACERBATION T 98.2 HR 80 RR 24 BP 142/72 SAT 85% BIPAP FIO2 45 H/H 9.6/31.5 ABG: PH 9.270 PCO2 85.2 PO2 47.8 HCO3 38.2 O2 SAT 75.5 SI: CEFEPIME IV X1 DECADRON IV X1 ATROVENT HHN X1 ALBUTEROL HHN X1 PATIENT ADMITTED TO STEP DOWN UNIT 08/06/2019 DCP: PATIENT IS FROM HOME
--- NOTE | 2019-08-07 14:00 | NUR ---
NURSE NOTES: Order was received from Dr Downey for Atarax 25mg TID PRN and for psych consult with Dr Andino. Pt is continually being reassured and comforted by staff, including RN, SHEEP FARMER and charge nurse. Pt is manipulative, impulsive and suspicious, yelling at staff despite all measures to relax, reassure and comfort pt. VS is currently stable. Pt continues to be noncompliant with Bipap, by removing it from face and 02 desaturates. Pt is demanding and yells "I do what I want!! I'm bipolar and that makes me special!! Now leave me alone!" A moment later, pt yells "come back to my room, I never told you to leave!".
[2019-08-07] MEDS ORDERED: HydrOXYzine 50mg tab ORAL PRN (14:15)
[2019-08-07] MEDS ORDERED: Ipratropium 0.02% Inh Soln 2.5ml UD HHN PRN (15:15)
--- NOTE | 2019-08-07 16:20 | NUR ---
NURSE NOTES: Pt is resting, watching TV and on her cell phone. VS stable while pt is compliant with Bipap, remains afebrile. Will continue to monitor.
[2019-08-07] MEDS ORDERED: traMADol 50mg tab ORAL PRN (18:00)
--- NOTE | 2019-08-07 18:30 | NUR ---
NURSE NOTES: Pt refused to have her blood glucose checked via Accucheck for 1629. Pt was administered Ativan per PRN order as pt is severely agitated, kicking, screaming, manipulative, yelling at nursing staff, and verbally abusive, threatening to physically hurt nurses, "I'm going to beat your ass!!!" Dr Andino is at bedside now, seeing pt for psych consult.
[2019-08-07] MEDS: LORazepam Inj 2mg/ml 1ml IV PRN (18:41)
--- NOTE | 2019-08-07 19:00 | NUR ---
NURSE NOTES: Dr Downey was contacted for pt's report of vaginal itching and nose/lips redness. Order was received for Fluconazole 100mg PO QDay x3 days only. Order was processed and pharmacist was informed.
--- NOTE | 2019-08-07 19:26 | NUR ---
HAND-OFF: Report given to Kamron NAYLOR. Endorsed plan of care including new order from Dr Downey for Fluconazole 100mg PO daily x3 days.
--- NOTE | 2019-08-07 20:00 | NUR ---
NURSE NOTES: Patient received from Natalya NAYLOR. Patient is AAOX4. Patient is agitated and enraged at times. Patient noted to have mood swings at times. Patient education needed reinforcements at times. Patient has GAEL 20G IV that is patent. Patient is on NC at 2L with Co2 monitoring. BIPAP 15/5 30% PRN ordered. Safety measures in place. Will continue to monitor.
--- NOTE | 2019-08-07 21:00 | NUR ---
NURSE NOTES: Patient pulled out IV line from left upper are. Informed patient that she needs the IV incase she needs IV med. Patient is refusing for new IV insertion at this time. Patient is anxious and yelling at staff and primary RN. Will respect patients wished for now and monitor. Vitals are stable at this time and no respiratory distress at this time.
[2019-08-07] MEDS: Doxycycline Monohydrate 100mg ORAL SCH (21:13)
[2019-08-07] MEDS: Montelukast 10mg tablet ORAL SCH (21:14)
[2019-08-07] MEDS: Sertraline 50mg tab ORAL SCH (21:14)
[2019-08-07] MEDS: Fluconazole 100mg tab ORAL SCH (21:14)
--- NOTE | 2019-08-07 22:41 | NUR ---
NURSE NOTES: Patient is restless and being verbally abusive with staff and primary RN. Therapeutic communication provided only to help very little. New IV inserted at Left FA 24G. Patients Breathing is fine at this time, No respiratory distress at this time.
[2019-08-08] VITALS: BP 123/65
--- NOTE | 2019-08-08 00:08 | NUR ---
NURSE NOTES: Patient is on bipap 15/5 30% Fio2. Patient continues to be resistive to care at times. Ongoing with verbal insults to staff. Patient however does cooperates at times, however no respiratory distress at this and vitals remains stable. Will continue to monitor.
[2019-08-08] MEDS: Revatio 20mg tab ORAL SCH ×3 (00:58→17:24)
--- NOTE | 2019-08-08 00:58 | NUR ---
NURSE NOTES: Patient continues to be agitated and yelling. Patient refused the 0100 medication scheduled. Explained benefits and risk of refusing medication, will respect patients wishes and continue to monitor.
[2019-08-08] MEDS: Levalbuterol Inh UD 1.25mg/0.5ml HHN SCH ×4 (01:19→19:09)
--- NOTE | 2019-08-08 03:41 | NUR ---
NURSE NOTES: Patient is more calm and collective at this time. Patient keeps wanting to go on and then off of bipap. PAtient noted is on nasal canula with CO2 monitoring.
[2019-08-08 04:00] VITALS: BP 155/75
[2019-08-08] MEDS: LORazepam Inj 2mg/ml 1ml IV PRN ×3 (06:00→21:09)
[2019-08-08] MEDS: HydrALAZINE 25mg tab ORAL SCH ×3 (06:00→21:12)
[2019-08-08] MEDS: Solu-MEDROL 40mg Inj IVP SCH (06:00)
[2019-08-08] MEDS: NovoLOG Insulin Flexpen SUBQ SCH ×4 (06:02→21:11)
--- NOTE | 2019-08-08 06:18 | NUR ---
NURSE NOTES: Morning meds given. Patient more relaxed at this time. Vitals remains stable, breathing is fine, no distress at this time, remains on NC 2 with SpO2 of 95, Will continue to monitor.
--- NOTE | 2019-08-08 07:15 | NUR ---
HAND-OFF: Report given to Lisa NAYLOR.
--- NOTE | 2019-08-08 07:16 | NUR ---
NURSE NOTES: Received patient in bed. Asleep, easy to arouse. Call light within reach. Contact isolation observed. Will continue plan of care.
[2019-08-08 08:00] VITALS: BP 166/97
[2019-08-08] MEDS ORDERED: Anastrazole 1mg tab ORAL SCH (09:00)
[2019-08-08] MEDS ORDERED: Neosporin Oint 15gm TOPIC SCH ×2 (09:30→21:00)
[2019-08-08] MEDS: dilTIAZem HCl CD 120mg cap ORAL SCH (10:06)
[2019-08-08] MEDS: Docusate 100mg cap ORAL SCH ×3 (10:06→21:12)
[2019-08-08] MEDS: Doxycycline Monohydrate 100mg ORAL SCH ×2 (10:06→21:12)
[2019-08-08] MEDS: Aspirin Baby 81mg ORAL SCH (10:06)
--- NOTE | 2019-08-08 10:08 | General Progress Note ---
Assessment/Plan Problem List: (1) Hypoxia ICD Codes: R09.02 - Hypoxia SNOMED: 618663556 (2) Anxiety disorder ICD Codes: F41.9 - Anxiety disorder, unspecified SNOMED: 192954802 (3) MDD (major depressive disorder), recurrent episode ICD Codes: F33.9 - Major depressive disorder, recurrent, unspecified SNOMED: 434441657 (4) Hypercapnic respiratory failure ICD Codes: J96.92 - Respiratory failure, unspecified with hypercapnia SNOMED: 103396887 Qualifiers: Qualified Codes: J96.22 - Acute and chronic respiratory failure with hypercapnia (5) Dyspnea ICD Codes: R06.00 - Dyspnea, unspecified SNOMED: 757691099 Qualifiers: Qualified Codes: R06.00 - Dyspnea, unspecified (6) Acute dyspnea (7) Diabetes mellitus ICD Codes: E11.9 - Diabetes mellitus SNOMED: 52208023 (8) Hypertension, malignant ICD Codes: I10 - Hypertension, malignant SNOMED: 13021282 (9) CHF (10) COPD exacerbation ICD Codes: J44.1 - COPD exacerbation SNOMED: 546189526 Status: stable, progressing Assessment/Plan: cont current rx bipap wean steroids resp rx abx monitor bs BP rx per cards pt/ot family to bring in pts bipap Subjective ROS Limited/Unobtainable: No Constitutional: Reports: malaise, weakness HEENT: Reports: no symptoms Cardiovascular: Reports: chest pain, edema, palpitations Respiratory: Reports: cough, SOB at rest, wheezing Gastrointestinal/Abdominal: Reports: no symptoms Genitourinary: Reports: no symptoms Neurologic/Psychiatric: Reports: anxiety, depressed Endocrine: Reports: no symptoms Hematologic/Lymphatic: Reports: no symptoms Allergies: Coded Allergies: AMOXICILLIN (Verified Allergy, Mild, RASH HIVES, 09/29/13) ERYTHROMYCIN BASE (Unverified Allergy, Unknown, 10/13/17) IODINE (Verified Allergy, Unknown, 09/29/13) PENICILLINS (Verified Allergy, Unknown, RASH HIVES, 09/29/13) All Systems: reviewed and negative except above Subjective multiple complaints. c/o facial rash, anxiety, itching, vaginal yeast infection and sob. tearful/crying. abg improving. Objective Last 24 Hour Vital Signs Date Time Temp Pulse Resp B/P (MAP) Pulse Ox O2 Delivery O2 Flow Rate FiO2 08/08/19 08:40 Bi-pap 08/08/19 08:40 30 08/08/19 08:36 91 08/08/19 08:00 3.0 08/08/19 08:00 Nasal Cannula 3.0 08/08/19 08:00 97.6 104 23 166/97 95 Nasal Cannula 3.0 08/08/19 06:00 150/89 08/08/19 05:12 84 16 97 Facial 30 08/08/19 04:00 3.0 08/08/19 04:00 98.2 102 18 155/75 92 Nasal Cannula 3.0 08/08/19 04:00 Bi-pap 08/08/19 04:00 97 08/08/19 03:28 89 21 96 Facial 30 08/08/19 01:19 92 22 95 Nasal Cannula 3.0 87 21 91 08/08/19 00:00 Bi-pap 08/08/19 00:00 30 08/08/19 00:00 98.7 96 18 123/65 93 Bi-pap 30 08/08/19 00:00 93 08/07/19 22:07 102 26 97 Facial 30 08/07/19 21:14 158/82 08/07/19 20:02 95 22 96 Nasal Cannula 3.0 96 21 92 08/07/19 20:00 97 08/07/19 20:00 98.3 92 18 158/82 92 Nasal Cannula 3.0 08/07/19 20:00 3.0 08/07/19 20:00 Bi-pap 08/07/19 17:15 96 22 94 Facial 30 08/07/19 16:00 30 08/07/19 16:00 95 08/07/19 16:00 97.4 90 20 136/84 88 Nasal Cannula 3.0 08/07/19 16:00 Bi-pap 08/07/19 12:50 98.4 08/07/19 12:00 93 08/07/19 12:00 Bi-pap 08/07/19 12:00 98.2 97 19 152/72 92 Nasal Cannula 3.0 08/07/19 12:00 30 08/07/19 11:50 85 22 95 Nasal Cannula 3.0 82 22 93 Intake and Output 08/07/19 08/08/19 19:00 07:00 Intake Total 500 ml 700 ml Output Total 1000 ml 1200 ml Balance -500 ml -500 ml Intake Oral 500 ml 700 ml Output Urine Total 1000 ml 1200 ml Height (Feet): 5 Height (Inches): 1.00 Weight (Pounds): 222 General Appearance: WD/WN, alert Neck: supple Cardiovascular: normal rate Respiratory/Chest: chest wall non-tender, no respiratory distress, no accessory muscle use, decreased breath sounds Abdomen: normal bowel sounds, non tender, soft, no organomegaly Edema: no edema noted Arm (L), no edema noted Arm (R), no edema noted Leg (L), no edema noted Leg (R), no edema noted Pedal (L), no edema noted Pedal (R), no edema noted Generalized Neurologic: piercer II-XII grossly normal, alert, oriented x 3, responsive Floyd Downey MD Aug 08, 2019 10:08
[2019-08-08 12:00] VITALS: BP 159/88
--- NOTE | 2019-08-08 13:59 | Pulmonology Progress Note ---
Assessment/Plan Assessment/Plan Pulmonary Progress Note HPI Patient is a 59-year-old female with previous history of COPD, Cardiac Disease, DM, presents with acute shortness of breath today, noted to have Pneumonias versus Atelectasis, mild Pulmonary Congestion, Hypercapneic Respiratory Failure. Denies nausea, vomiting, abdominal pain she does endorse some chest tightness no aggravating relieving factors . Allergies: AMOXICILLIN ERYTHROMYCIN BASE IODINE PENICILLINS Past Medical History: COPD, Cardiac Disease, Diabetes Less SOB Physical Exam Vital Signs Noted General Appearance: alert, no distress Head: normocephalic, atraumatic Eyes: bilateral eye PERRL, bilateral eye EOMI ENT: uvula midline, moist mucus membranes Neck: supple, thyroid normal, supple/symm/no masses Respiratory: decreased breath sounds Cardiovascular: normal peripheral pulses, regular rate, rhythm, HS1, HS2 normal , no edema, no gallop, no murmur Gastrointestinal: non tender, soft, no guarding, no rebound Musculoskeletal: normal inspection Neurologic: alert, oriented x3 Impression: Pneumonia COPD exaccerbation Dyspnea Hypercapnic hypoxic respiratory failure Cardiac disease Diabetes Plan IV Antibiotics Solumedrol O2 PRN BiPAP PRN HHN PPX [employer] meds Monitor labs Laboratory Tests Noted Test 08/06/19 17:07 08/06/19 18:00 Arterial Blood pH 7.270 (7.350-7.450) Arterial Blood Partial Pressure CO2 85.2 mmHg (35.0-45.0) *H Arterial Blood Partial Pressure O2 47.8 mmHg (75.0-100.0) Arterial Blood HCO3 38.2 mmol/L (22.0-26.0) H Arterial Blood Oxygen Saturation 75.5 % (95-100) *L Arterial Blood Base Excess 8.9 (-2-2) H Rico Test Positive White Blood Count 9.7 K/UL (4.8-10.8) Red Blood Count 3.65 M/UL (4.20-5.40) L Hemoglobin 9.6 G/DL (12.0-16.0) L Hematocrit 31.5 % (37.0-47.0) L Mean Corpuscular Volume 86 FL (80-99) Mean Corpuscular Hemoglobin 26.3 PG (27.0-31.0) L Mean Corpuscular Hemoglobin Concent 30.5 G/DL (32.0-36.0) L Red Cell Distribution Width 12.0 % (11.6-14.8) Platelet Count 262 K/UL (150-450) Mean Platelet Volume 7.3 FL (6.5-10.1) Neutrophils (%) (Auto) 70.2 % (45.0-75.0) Lymphocytes (%) (Auto) 19.5 % (20.0-45.0) L Monocytes (%) (Auto) 6.8 % (1.0-10.0) Eosinophils (%) (Auto) 0.5 % (0.0-3.0) Basophils (%) (Auto) 3.0 % (0.0-2.0) H Prothrombin Time 9.8 SEC (9.30-11.50) Prothrombin Time INR 0.9 (0.9-1.1) PTT 25 SEC (23-33) Sodium Level 142 MMOL/L (136-145) Potassium Level 4.8 MMOL/L (3.5-5.1) Chloride Level 99 MMOL/L (98-107) Carbon Dioxide Level 37 MMOL/L (21-32) H Anion Gap 7 mmol/L (5-15) Blood Urea Nitrogen 15 mg/dL (7-18) Creatinine 1.2 MG/DL (0.55-1.30) Estimate Glomerular Filtration Rate 55.4 mL/min (>60) Glucose Level 185 MG/DL (74-106) H Calcium Level 9.3 MG/DL (8.5-10.1) Total Bilirubin Pending Aspartate Amino Transferase (AST) Pending Alanine Aminotransferase (ALT) Pending Alkaline Phosphatase Pending Total Creatine Kinase Pending Creatine Kinase MB Pending Troponin I 0.000 ng/mL (0.000-0.056) Pro-B-Type Natriuretic Peptide Pending Total Protein Pending Albumin Pending Globulin Pending Lipase Pending EKG: NSR, rate 89, QTc 476, no acute ST elevations, normal axis Chest X-Ray: Bibasilar opacities which may represent atelectasis versus pneumonia, superimposed on a previously reported right Bochdalek hernia. Pulmonary vasculature congestion edema. Possible small bilateral pleural effusions. Subjective ROS Limited/Unobtainable: No Allergies: Coded Allergies: AMOXICILLIN (Verified Allergy, Mild, RASH HIVES, 09/29/13) ERYTHROMYCIN BASE (Unverified Allergy, Unknown, 10/13/17) IODINE (Verified Allergy, Unknown, 09/29/13) PENICILLINS (Verified Allergy, Unknown, RASH HIVES, 09/29/13) Objective Last 24 Hour Vital Signs Date Time Temp Pulse Resp B/P (MAP) Pulse Ox O2 Delivery O2 Flow Rate FiO2 08/08/19 13:20 96 21 96 Facial 30 08/08/19 13:16 159/88 08/08/19 12:58 99 22 97 Nasal Cannula 3.0 101 25 94 08/08/19 12:00 97.4 83 17 159/88 99 Nasal Cannula 3.0 08/08/19 12:00 Bi-pap 08/08/19 12:00 30 08/08/19 11:43 82 08/08/19 11:29 83 17 97 Facial 30 08/08/19 10:06 91 166/97 08/08/19 08:40 Bi-pap 08/08/19 08:40 30 08/08/19 08:36 91 08/08/19 08:28 103 21 96 Facial 30 08/08/19 08:09 94 22 97 Nasal Cannula 3.0 92 21 94 08/08/19 08:00 3.0 08/08/19 08:00 Nasal Cannula 3.0 08/08/19 08:00 97.6 104 23 166/97 95 Nasal Cannula 3.0 08/08/19 06:00 150/89 08/08/19 05:12 84 16 97 Facial 30 08/08/19 04:00 3.0 08/08/19 04:00 98.2 102 18 155/75 92 Nasal Cannula 3.0 08/08/19 04:00 Bi-pap 08/08/19 04:00 97 08/08/19 03:28 89 21 96 Facial 30 08/08/19 01:19 92 22 95 Nasal Cannula 3.0 87 21 91 08/08/19 00:00 Bi-pap 08/08/19 00:00 30 08/08/19 00:00 98.7 96 18 123/65 93 Bi-pap 30 08/08/19 00:00 93 08/07/19 22:07 102 26 97 Facial 30 08/07/19 21:14 158/82 08/07/19 20:02 95 22 96 Nasal Cannula 3.0 96 21 92 08/07/19 20:00 97 08/07/19 20:00 98.3 92 18 158/82 92 Nasal Cannula 3.0 08/07/19 20:00 3.0 08/07/19 20:00 Bi-pap 08/07/19 17:15 96 22 94 Facial 30 08/07/19 16:00 30 08/07/19 16:00 95 08/07/19 16:00 97.4 90 20 136/84 88 Nasal Cannula 3.0 08/07/19 16:00 Bi-pap Intake and Output 08/07/19 08/08/19 19:00 07:00 Intake Total 500 ml 700 ml Output Total 1000 ml 1200 ml Balance -500 ml -500 ml Intake Oral 500 ml 700 ml Output Urine Total 1000 ml 1200 ml Current Medications Medications (Trade) Dose Ordered Sig/Sera Route PRN Reason Start Time Stop Time Status Last Admin Dose Admin Acetaminophen (Tylenol) 650 mg Q4H PRN ORAL Pain Scale (6-10) 08/06/19 19:00 09/05/19 18:59 08/07/19 12:20 Anastrozole (Arimidex) 1 mg DAILY ORAL 08/08/19 09:00 09/06/19 08:59 08/08/19 10:06 Aspirin (ASA) 81 mg DAILY ORAL 08/07/19 09:00 09/06/19 08:59 08/08/19 10:06 Atorvastatin Calcium (Lipitor) 20 mg BEDTIME ORAL 08/06/19 21:00 09/05/19 20:59 08/07/19 21:13 Dextrose (Dextrose 50%) 25 ml Q30M PRN IV Hypoglycemia 08/06/19 19:00 09/05/19 18:59 Dextrose (Dextrose 50%) 50 ml Q30M PRN IV Hypoglycemia 08/06/19 19:00 09/05/19 18:59 Diltiazem HCl (Cardizem CD) 120 mg DAILY ORAL 08/07/19 09:00 09/06/19 08:59 08/08/19 10:06 Docusate Sodium (Colace) 100 mg EVERY 12 HOURS ORAL 08/08/19 09:00 09/06/19 08:59 Doxycycline Monohydrate (Doxycycline Monohydrate) 100 mg EVERY 12 HOURS ORAL 08/07/19 21:00 08/14/19 20:59 08/08/19 10:06 Fluconazole (Diflucan) 100 mg Q24H ORAL 08/07/19 21:00 08/09/19 21:01 08/07/19 21:14 Furosemide (Lasix) 20 mg DAILY IV 08/07/19 09:00 09/06/19 08:59 08/08/19 10:05 Hydralazine HCl (Apresoline) 25 mg EVERY 8 HOURS ORAL 08/06/19 22:00 09/05/19 21:59 08/08/19 13:16 Hydroxyzine HCl (Atarax) 25 mg TIDPRN PRN ORAL For Anxiety 08/07/19 14:15 09/06/19 14:14 08/07/19 14:25 Insulin Aspart (NovoLOG) BEFORE MEALS AND HS SUBQ 08/06/19 21:00 09/05/19 20:59 08/08/19 12:45 Ipratropium [place] (Atrovent) 500 mcg Q4H PRN HHN Shortness of Breath 08/07/19 15:15 08/12/19 15:14 Levalbuterol HCl (Xopenex) 0.625 mg Q6HRT HHN 08/07/19 19:00 08/12/19 18:59 08/08/19 12:48 Loratadine (Claritin 10mg) 10 mg DAILY ORAL 08/07/19 09:00 09/06/19 08:59 08/08/19 10:06 Lorazepam (Ativan 2mg/ml 1ml) 1 mg Q4H PRN IV For Anxiety 08/07/19 18:00 08/14/19 17:59 08/08/19 10:05 Methylprednisolone Sodium Succinate (Solu-MEDROL) 40 mg Q12HR IVP 08/08/19 21:00 09/07/19 20:59 Mirtazapine (Remeron) 7.5 mg BEDTIME PRN ORAL insomnia 08/07/19 19:00 09/06/19 18:59 Montelukast Sodium (Singulair) 10 mg QHS ORAL 08/06/19 21:00 09/05/19 20:59 08/07/19 21:14 Neomycin/ Polymyxin/ Bacitracin (Neosporin Oint 15gm) 1 applic EVERY 12 HOURS TOPIC 08/08/19 21:00 09/07/19 09:29 Ondansetron HCl (Zofran) 4 mg Q6H PRN IVP Nausea & Vomiting 08/06/19 19:00 09/05/19 18:59 Pantoprazole (Protonix) 40 mg ACBREAKFAST ORAL 08/06/19 23:30 09/05/19 23:29 08/08/19 06:00 Sertraline HCl (Zoloft) 100 mg QHS ORAL 08/06/19 21:00 09/05/19 20:59 08/07/19 21:14 Sildenafil Citrate (Revatio) 20 mg ONCE ORAL 08/07/19 01:00 09/06/19 00:59 08/07/19 01:24 Sildenafil Citrate (Revatio) 20 mg TWICE A DAY ORAL 08/06/19 23:30 09/05/19 23:29 08/08/19 10:06 Tramadol HCl (Ultram) 50 mg Q6H PRN ORAL For Pain 08/07/19 18:00 08/14/19 17:59 Werner Crump MD Aug 08, 2019 13:59
[2019-08-08 16:00] VITALS: BP 150/85
--- NOTE | 2019-08-08 19:20 | NUR ---
HAND-OFF: Report given to Steven Christianson RN.
--- NOTE | 2019-08-08 19:20 | NUR ---
NURSE NOTES: Patient received from Lisa NAYLOR. Patient is alert and orientedX4. Patient is agitated and enraged at times. Patient noted to have mood swings during previous shifts. Patient is currently on oxygen via NC 2L with CO2 monitoring in place. BIPAP 15/5 30% PRN and at night ordered. No signs of cardiac or respiratory distress noted. Patient has Left forearm 24G IV that is patent and asymptomatic. Safety measures and fall precautions in place. Patient resting in bed, bed in lowest position with side rails up x3, bed alarm activated and safety wheels engaged. Will continue to monitor.
[2019-08-08 20:00] VITALS: BP 139/68
[2019-08-08] MEDS ORDERED: Milk of Magnesia 30ml Ud ORAL PRN (20:15)
[2019-08-08] MEDS ORDERED: Solu-MEDROL 40mg Inj IVP SCH (21:00)
[2019-08-08] MEDS: Fluconazole 100mg tab ORAL SCH (21:12)
[2019-08-08] MEDS: Sertraline 50mg tab ORAL SCH (21:13)
[2019-08-08] MEDS: Montelukast 10mg tablet ORAL SCH (21:13)
--- NOTE | 2019-08-08 22:38 | NUR ---
TRANSFER TO FLOOR: Patient transferred to Tele, per Dr Downey. Report given to CYNDY Roland. Belongings and medications with patient. Patient is alert and oriented X4. Patient is combative and verbally abusive towards staff. Patient is agitated and enraged at times. Patient noted to have mood swings during previous shifts and current shift. Patient is currently on oxygen via NC 2L with CO2 monitoring in place. BIPAP 15/5 30% PRN and at night ordered. No signs of cardiac or respiratory distress noted. Patient has Left forearm 24G IV that is patent and asymptomatic. Safety measures and fall precautions in place. Patient resting in bed, bed in lowest position with side rails up x3, bed alarm activated and safety wheels engaged.
--- NOTE | 2019-08-08 22:40 | NUR ---
NURSE NOTES: Received patient from CYNDY Hussein and CYNDY Harris. Patient transferred from [facility] to [facility]. Patient's belongings checked with nurses and patient at bedside, patient denied allowing nurses to check purse. IV site checked, intact and patent, no signs of erythema, bleeding, or infiltration. Bed in lowest position, brakes on, side rails up x3, and call light within reach. Bed alarm on. Will continue with plan of care. Addendum: 08/09/19 at 0019 by Asuncion Marcial RN Also - patient denied pain or shortness of breath. No signs of distress noted.
[2019-08-08] MEDS ORDERED: Ipratropium 0.02% Inh Soln 2.5ml UD HHN PRN (23:15)
[2019-08-09] VITALS: BP 182/95
[2019-08-09] MEDS ORDERED: traMADol 50mg tab ORAL PRN
--- NOTE | 2019-08-09 00:06 | NUR ---
NURSE NOTES: Left message for Dr. Downey regarding patient's elevated blood pressure, awaiting callback. Patient denies pain or anxiety. Will continue to monitor.
--- NOTE | 2019-08-09 00:15 | Consultation ---
DATE OF CONSULTATION: 08/07/2019 CONSULTING PHYSICIAN: Jayy Andino M.D. HISTORY OF PRESENT ILLNESS: This is a 59-year-old female, well familiar. The patient has a history of depression and anxiety disorder who has been admitted for medical stabilization. The patient was seen yesterday on 08/07/2019. The patient was severely agitated affect, was arguing and yelling at her nurse. The patient was inpatient. Worries about multiple issues. Per nurse, the patient has been yelling, screaming at her all day. Yesterday, the patient stated that nobody has been taking care of her. PAST PSYCHIATRIC HISTORY: Depression, anxiety disorder, cluster B personality. PAST MEDICAL HISTORY: Significant for diabetes mellitus, hypertension, CHF, COPD. ALLERGIES: Amoxicillin, erythromycin, iodine, penicillin. SUBSTANCE ABUSE HISTORY: The patient currently is not using any drugs or alcohol. She previously was a former smoker. MENTAL STATUS EXAMINATION: Alert, oriented times self, place, situation, and date. Mood was irritable and angry. Affect is constricted, congruent with mood. Thought process is circumstantial. Thought content, no suicidal or homicidal ideation. ASSESSMENT: [place] I Major depressive disorder. Anxiety disorder. [place] II Cluster B. [place] III COPD. [place] IV Moderate. [place] V 60. PLAN: 1. The patient was started on Remeron 7.5 at bedtime as melatonin is not on the formulary. 2. Continue the Zoloft. 3. Continue the Ativan. 4. Discussed with her the medical issues and nursing issues. The patient calmed down. Jayy Andino M.D. DR: ELAYNE JOB#: [id number] CC: SENTHIL
[2019-08-09] MEDS ORDERED: HydrALAZINE 25mg tab ORAL PRN (00:30)
--- NOTE | 2019-08-09 00:40 | NUR ---
NURSE NOTES: Dr. Martinez aware of elevated blood pressure and ordered PRN hydralazine. Noted and carried out. Will continue to monitor.
--- NOTE | 2019-08-09 01:15 | Consultation ---
DATE OF CONSULTATION: 08/08/2019 CARDIOLOGY CONSULTATION CONSULTING PHYSICIAN: Werner Martinez M.D. REQUESTING PHYSICIAN: Floyd Downey M.D. REASON FOR CONSULTATION: Uncontrolled hypertension and congestive heart failure in the setting of respiratory failure due to COPD exacerbation. HISTORY OF PRESENT ILLNESS: This is a 59-year-old female with advanced obstructive lung disease and pulmonary hypertension. She also has a known history of hypertensive heart disease with diastolic congestive heart failure. She presented to the emergency room with shortness of breath several days ago and was noted to have worsening respiratory acidosis. She has been on a BiPAP support. Since today she improved, but continued to have high blood pressure readings and clinical and radiographic signs of acute congestive heart failure. The patient's blood pressure readings have been elevated. She continues to complain of leg swelling, orthopnea, and PND although the latter to have improved. PAST MEDICAL HISTORY: Breast cancer with right mastectomy and history of radiation and chemotherapy, hypertension with hypertensive heart disease, diastolic dysfunction with congestive heart failure, insulin-requiring diabetes mellitus, diabetic neuropathy, diabetic nephropathy with chronic kidney disease, COPD with pulmonary hypertension, hypoxia and respiratory acidosis, obesity, degenerative disk disease, osteoarthritis, paroxysmal atrial ectopy ALLERGIES: Include vancomycin and penicillin. FAMILY HISTORY: Notable for her sister who had lung cancer. SOCIAL HISTORY: Distant history of substance abuse, greater than [id number] smoking history. No alcohol abuse. REVIEW OF SYSTEMS: A recent echocardiogram with normal ejection fraction and severe pulmonary hypertension with mild degenerative valve disease. Otherwise, all systems are negative. PHYSICAL EXAMINATION: VITAL SIGNS: Blood pressure range is 139/88 and earlier 159/88, heart rate 99, respiratory 25, afebrile. NECK: Elevated jugular venous pressure. LUNGS: Diminished breath sounds. Few expiratory wheezes. No accessory muscle use. HEART: Regular rhythm and rate. Normal S1 and S2 with a fourth heart sound and a 1/6 systolic apical murmur. ABDOMEN: Soft and nontender. Moderate obesity. No ascites. EXTREMITIES: 1+ dependent lower extremity edema. NEUROLOGIC: Nonfocal. LABORATORY DATA: ABG yesterday 7.34, 71, 55, 6. Chest x-ray on 08/06/2019 revealed pulmonary infiltrates and small pleural effusion. IMPRESSION: 1. Hypertensive heart disease with labile blood pressure. 2. Acute on chronic diastolic congestive heart failure with pleural effusion. 3. COPD exacerbation. 4. Acute on chronic respiratory acidosis. 5. Hypoxia. 6. Severe pulmonary hypertension. PLAN: 1. Advancing diltiazem dose. 2. Advancing furosemide dose. 3. Adding additional hydralazine p.r.n. for blood pressure spikes. 4. Continued for pulmonary hypertension. 5. Inhaled bronchodilators and steroid taper. 6. Close cardiac monitoring. 7. Close evaluation of acid-base status. 8. The patient's condition remains serious. Werner Martinez M.D. DR: DARREN JOB#: [id number] CC:
[2019-08-09] MEDS: Levalbuterol Inh UD 1.25mg/0.5ml HHN SCH ×4 (01:23→19:32)
[2019-08-09 04:00] VITALS: BP 150/75
[2019-08-09] MEDS ORDERED: Milk of Magnesia 30ml Ud ORAL PRN (04:15)
[2019-08-09] MEDS: HydrALAZINE 25mg tab ORAL SCH ×3 (06:29→22:08)
[2019-08-09] MEDS: NovoLOG Insulin Flexpen SUBQ SCH ×4 (06:31→22:07)
--- NOTE | 2019-08-09 06:46 | General Progress Note ---
Assessment/Plan Problem List: (1) Hypoxia ICD Codes: R09.02 - Hypoxia SNOMED: 647301826 (2) Anxiety disorder ICD Codes: F41.9 - Anxiety disorder, unspecified SNOMED: 456205111 (3) MDD (major depressive disorder), recurrent episode ICD Codes: F33.9 - Major depressive disorder, recurrent, unspecified SNOMED: 595857416 (4) Hypercapnic respiratory failure ICD Codes: J96.92 - Respiratory failure, unspecified with hypercapnia SNOMED: 654982519 Qualifiers: Qualified Codes: J96.22 - Acute and chronic respiratory failure with hypercapnia (5) Dyspnea ICD Codes: R06.00 - Dyspnea, unspecified SNOMED: 206788037 Qualifiers: Qualified Codes: R06.00 - Dyspnea, unspecified (6) Acute dyspnea (7) Diabetes mellitus ICD Codes: E11.9 - Diabetes mellitus SNOMED: 49046542 (8) Hypertension, malignant ICD Codes: I10 - Hypertension, malignant SNOMED: 96359254 (9) CHF (10) COPD exacerbation ICD Codes: J44.1 - COPD exacerbation SNOMED: 190249760 Status: stable, progressing Assessment/Plan: cont current rx bipap wean steroids resp rx abx monitor bs BP rx per cards diuresis per cards pt/ot family to bring in pts bipap Subjective ROS Limited/Unobtainable: No Constitutional: Reports: weakness HEENT: Reports: no symptoms Cardiovascular: Reports: no symptoms Respiratory: Reports: cough, shortness of breath, SOB with excertion Gastrointestinal/Abdominal: Reports: no symptoms Genitourinary: Reports: no symptoms Neurologic/Psychiatric: Reports: anxiety Endocrine: Reports: no symptoms Hematologic/Lymphatic: Reports: no symptoms Allergies: Coded Allergies: AMOXICILLIN (Verified Allergy, Mild, RASH HIVES, 09/29/13) ERYTHROMYCIN BASE (Unverified Allergy, Unknown, 10/13/17) IODINE (Verified Allergy, Unknown, 09/29/13) PENICILLINS (Verified Allergy, Unknown, RASH HIVES, 09/29/13) All Systems: reviewed and negative except above Subjective on bipap. resting. no new complaints. Objective Last 24 Hour Vital Signs Date Time Temp Pulse Resp B/P (MAP) Pulse Ox O2 Delivery O2 Flow Rate FiO2 08/09/19 06:36 88 16 98 Nasal Cannula 3.0 86 16 97 08/09/19 06:29 158/87 08/09/19 05:27 78 19 95 Facial 35 08/09/19 04:00 97.2 86 20 150/75 94 Nasal Cannula 30 08/09/19 04:00 87 08/09/19 03:00 78 17 95 Facial 30 08/09/19 01:23 80 18 94 Facial 30 82 18 96 08/09/19 00:47 182/95 08/09/19 00:00 92 08/09/19 00:00 98.2 90 21 182/95 95 Nasal Cannula 3.0 08/08/19 21:12 139/68 08/08/19 20:00 Bi-pap 08/08/19 20:00 99.0 97 21 139/68 95 Nasal Cannula 3.0 08/08/19 19:34 100 08/08/19 19:09 99 18 95 Nasal Cannula 3.0 96 18 94 08/08/19 16:59 84 18 98 Facial 30 08/08/19 16:00 97.8 95 21 150/85 93 Nasal Cannula 3.0 08/08/19 16:00 Bi-pap 08/08/19 16:00 21 08/08/19 15:26 85 08/08/19 15:16 87 17 99 Facial 30 08/08/19 13:20 96 21 96 Facial 30 08/08/19 13:16 159/88 08/08/19 12:58 99 22 97 Nasal Cannula 3.0 101 25 94 08/08/19 12:00 97.4 83 17 159/88 99 Nasal Cannula 3.0 08/08/19 12:00 Bi-pap 08/08/19 12:00 30 08/08/19 11:43 82 08/08/19 11:29 83 17 97 Facial 30 08/08/19 10:06 91 166/97 08/08/19 08:40 Bi-pap 08/08/19 08:40 30 08/08/19 08:36 91 08/08/19 08:28 103 21 96 Facial 30 08/08/19 08:09 94 22 97 Nasal Cannula 3.0 92 21 94 08/08/19 08:00 3.0 08/08/19 08:00 Nasal Cannula 3.0 08/08/19 08:00 97.6 104 23 166/97 95 Nasal Cannula 3.0 Intake and Output 08/08/19 08/09/19 19:00 07:00 Intake Total 840 ml 1400 ml Output Total 850 ml 2300 ml Balance -10 ml -900 ml Intake Oral 840 ml 1400 ml Output Urine Total 850 ml 2300 ml # Bowel Movements 2 Height (Feet): 5 Height (Inches): 1.00 Weight (Pounds): 222 Objective General Appearance: WD/WN, alert Neck: supple Cardiovascular: normal rate Respiratory/Chest: chest wall non-tender, no respiratory distress, no accessory muscle use, decreased breath sounds Abdomen: normal bowel sounds, non tender, soft, no organomegaly Edema: no edema noted Arm (L), no edema noted Arm (R), no edema noted Leg (L), no edema noted Leg (R), no edema noted Pedal (L), no edema noted Pedal (R), no edema noted 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
[2019-08-09 07:12] LABS: HEMATOCRIT 31.6 % (37.0-47.0); HEMOGLOBIN 9.7 G/DL (12.0-16.0); MEAN CORPUSCULAR VOLUME 86 FL (80-99); PLATELET COUNT 339 K/UL (150-450); RED BLOOD COUNT 3.69 M/UL (4.20-5.40); RED CELL DISTRIBUTION WIDTH 13.8 % (11.6-14.8); WHITE BLOOD COUNT 9.7 K/UL (4.8-10.8)
--- NOTE | 2019-08-09 07:20 | NUR ---
HAND-OFF: Report given to CYNDY Muñoz. Endorsed plan of care.
--- NOTE | 2019-08-09 07:27 | NUR ---
NURSE NOTES: pt awake in bed. oxygen on. mailer on no signs of cardiac or respiratory distress at this time. Call light within reach. Bed is locked and in lowest position. Pt on Purewick. Bed alarm on. Will continuer to monitor labs and provide pt care.
[2019-08-09 07:41] LABS: ALANINE AMINOTRANSFERASE 15 U/L (12-78); ALBUMIN 2.8 G/DL (3.4-5.0); ALBUMIN/GLOBULIN RATIO 0.7 (1.0-2.7); ALKALINE PHOSPHATASE 69 U/L (46-116); ANION GAP 2 mmol/L (5-15); ASPARTATE AMINO TRANSFERASE 9 U/L (15-37); BILIRUBIN,TOTAL 0.2 MG/DL (0.2-1.0); BLOOD UREA NITROGEN 20 mg/dL (7-18); CALCIUM 9.1 MG/DL (8.5-10.1); CARBON DIOXIDE 40 MMOL/L (21-32); CHLORIDE 94 MMOL/L (98-107); CREATININE 0.9 MG/DL (0.55-1.30); POTASSIUM 4.7 MMOL/L (3.5-5.1); SODIUM 136 MMOL/L (136-145)
--- NOTE | 2019-08-09 07:48 | Pulmonology Progress Note ---
Assessment/Plan Assessment/Plan Impression: Pneumonia COPD exacerbation Chronic respiratory failure Hypoxemia Dyspnea Hypercapnic hypoxic respiratory failure Cardiac disease Diabetes Plan IV Antibiotics Solumedrol and taper O2 PRN BiPAP PRN nebulized therapy monitor acid base exchange avoid sedation Monitor labs impression, plan, and exam edited and reviewed in detail care discussed with RN Subjective Allergies: Coded Allergies: AMOXICILLIN (Verified Allergy, Mild, RASH HIVES, 09/29/13) ERYTHROMYCIN BASE (Unverified Allergy, Unknown, 10/13/17) IODINE (Verified Allergy, Unknown, 09/29/13) PENICILLINS (Verified Allergy, Unknown, RASH HIVES, 09/29/13) Subjective overall care noted chronic sob on oxygen currently order for BIPAP noted Objective Last 24 Hour Vital Signs Date Time Temp Pulse Resp B/P (MAP) Pulse Ox O2 Delivery O2 Flow Rate FiO2 08/09/19 06:36 88 16 98 Nasal Cannula 3.0 86 16 97 08/09/19 06:29 158/87 08/09/19 05:27 78 19 95 Facial 35 08/09/19 04:00 97.2 86 20 150/75 94 Nasal Cannula 30 08/09/19 04:00 87 08/09/19 03:00 78 17 95 Facial 30 08/09/19 01:23 80 18 94 Facial 30 82 18 96 08/09/19 00:47 182/95 08/09/19 00:00 92 08/09/19 00:00 98.2 90 21 182/95 95 Nasal Cannula 3.0 08/08/19 21:12 139/68 08/08/19 20:00 Bi-pap 08/08/19 20:00 99.0 97 21 139/68 95 Nasal Cannula 3.0 08/08/19 19:34 100 08/08/19 19:09 99 18 95 Nasal Cannula 3.0 96 18 94 08/08/19 16:59 84 18 98 Facial 30 08/08/19 16:00 97.8 95 21 150/85 93 Nasal Cannula 3.0 08/08/19 16:00 Bi-pap 08/08/19 16:00 21 08/08/19 15:26 85 08/08/19 15:16 87 17 99 Facial 30 08/08/19 13:20 96 21 96 Facial 30 08/08/19 13:16 159/88 08/08/19 12:58 99 22 97 Nasal Cannula 3.0 101 25 94 08/08/19 12:00 97.4 83 17 159/88 99 Nasal Cannula 3.0 08/08/19 12:00 Bi-pap 08/08/19 12:00 30 08/08/19 11:43 82 08/08/19 11:29 83 17 97 Facial 30 08/08/19 10:06 91 166/97 08/08/19 08:40 Bi-pap 08/08/19 08:40 30 08/08/19 08:36 91 08/08/19 08:28 103 21 96 Facial 30 08/08/19 08:09 94 22 97 Nasal Cannula 3.0 92 21 94 08/08/19 08:00 3.0 08/08/19 08:00 Nasal Cannula 3.0 08/08/19 08:00 97.6 104 23 166/97 95 Nasal Cannula 3.0 Intake and Output 08/08/19 08/09/19 19:00 07:00 Intake Total 840 ml 1400 ml Output Total 850 ml 2300 ml Balance -10 ml -900 ml Intake Oral 840 ml 1400 ml Output Urine Total 850 ml 2300 ml # Bowel Movements 2 Objective WDWN NAD reduced breath sounds bilaterally without rhonchi or wheeze [id number] without MRG NABS nontender no HSM no CC minimal edema obese nonfocal Laboratory Tests 08/09/19 05:50: White Blood Count 9.7, Red Blood Count 3.69L, Hemoglobin 9.7L, Hematocrit 31.6L , Mean Corpuscular Volume 86, Mean Corpuscular Hemoglobin 26.3L, Mean Corpuscular Hemoglobin Concent 30.6L, Red Cell Distribution Width 13.8, Platelet Count 339, Mean Platelet Volume 7.4, Neutrophils (%) (Auto) , Lymphocytes (%) (Auto) , Monocytes (%) (Auto) , Eosinophils (%) (Auto) , Basophils (%) (Auto) , Neutrophils % (Manual) [Pending], Lymphocytes % (Manual) [Pending], Platelet Estimate [Pending], Platelet Morphology [Pending], Sodium Level 136, Potassium Level 4.7, Chloride Level 94L, Carbon Dioxide Level 40H, Anion Gap 2L, Blood Urea Nitrogen 20H, Creatinine 0.9, Estimat Glomerular Filtration Rate > 60, Glucose Level 369H, Calcium Level 9.1, Magnesium Level 1.8 , Total Bilirubin 0.2, Aspartate Amino Transf (AST/SGOT) 9L, Alanine Aminotransferase (ALT/SGPT) 15, Alkaline Phosphatase 69, Pro-B-Type Natriuretic Peptide 827H, Total Protein 6.6, Albumin 2.8L, Globulin 3.8, Albumin/Globulin Ratio 0.7L Current Medications Medications (Trade) Dose Ordered Sig/Sera Route PRN Reason Start Time Stop Time Status Last Admin Dose Admin Acetaminophen (Tylenol) 650 mg Q4H PRN ORAL Pain Scale (6-10) 08/08/19 23:00 09/05/19 18:59 Anastrozole (Arimidex) 1 mg DAILY ORAL 08/09/19 09:00 09/06/19 08:59 Aspirin (ASA) 81 mg DAILY ORAL 08/09/19 09:00 09/06/19 08:59 Atorvastatin Calcium (Lipitor) 20 mg BEDTIME ORAL 08/09/19 21:00 09/05/19 20:59 Dextrose (Dextrose 50%) 25 ml Q30M PRN IV Hypoglycemia 08/08/19 23:00 09/05/19 18:59 Dextrose (Dextrose 50%) 50 ml Q30M PRN IV Hypoglycemia 08/08/19 23:00 09/05/19 18:59 Diltiazem HCl (Cardizem CD) 180 mg DAILY ORAL 08/09/19 09:00 09/08/19 08:59 Docusate Sodium (Colace) 100 mg EVERY 12 HOURS ORAL 08/09/19 09:00 09/06/19 08:59 Doxycycline Monohydrate (Doxycycline Monohydrate) 100 mg EVERY 12 HOURS ORAL 08/09/19 09:00 08/14/19 20:59 Fluconazole (Diflucan) 100 mg Q24H ORAL 08/09/19 21:00 08/09/19 21:01 Furosemide (Lasix) 40 mg DAILY IV 08/09/19 09:00 09/08/19 08:59 Hydralazine HCl (Apresoline) 25 mg EVERY 8 HOURS ORAL 08/09/19 06:00 09/05/19 21:59 08/09/19 06:29 Hydralazine HCl (Apresoline) 25 mg Q6HR PRN ORAL SBP above 150or DBP above 95 08/09/19 00:30 09/08/19 00:29 08/09/19 00:47 Hydroxyzine HCl (Atarax) 25 mg TIDPRN PRN ORAL For Anxiety 08/09/19 08:00 09/06/19 07:59 Insulin Aspart (NovoLOG) BEFORE MEALS AND HS SUBQ 08/09/19 06:30 09/05/19 20:59 08/09/19 06:31 Ipratropium [place] (Atrovent) 500 mcg Q4H PRN HHN Shortness of Breath 08/08/19 23:15 08/12/19 15:14 Levalbuterol HCl (Xopenex) 0.625 mg Q6HRT HHN 08/09/19 01:00 08/12/19 18:59 08/09/19 06:36 Loratadine (Claritin 10mg) 10 mg DAILY ORAL 08/09/19 09:00 09/06/19 08:59 Lorazepam (Ativan 2mg/ml 1ml) 1 mg Q4H PRN IV For Anxiety 08/09/19 02:00 08/14/19 17:59 Magnesium Hydroxide (Mom) 30 ml Q8H PRN ORAL Constipation 08/09/19 04:15 09/07/19 20:14 Methylprednisolone Sodium Succinate (Solu-MEDROL) 40 mg Q12HR IVP 08/09/19 09:00 09/07/19 20:59 Mirtazapine (Remeron) 7.5 mg BEDTIME PRN ORAL insomnia 08/09/19 21:00 09/06/19 18:59 Montelukast Sodium (Singulair) 10 mg QHS ORAL 08/09/19 21:00 09/05/19 20:59 Neomycin/ Polymyxin/ Bacitracin (Neosporin Oint 15gm) 1 applic EVERY 12 HOURS TOPIC 08/09/19 09:00 09/07/19 09:29 Ondansetron HCl (Zofran) 4 mg Q6H PRN IVP Nausea & Vomiting 08/09/19 01:00 09/05/19 18:59 Pantoprazole (Protonix) 40 mg ACBREAKFAST ORAL 08/09/19 06:30 09/05/19 23:29 08/09/19 06:30 Sertraline HCl (Zoloft) 100 mg QHS ORAL 08/09/19 21:00 09/05/19 20:59 Sildenafil Citrate (Revatio) 20 mg TWICE A DAY ORAL 08/09/19 09:00 09/05/19 23:29 Tramadol HCl (Ultram) 50 mg Q6H PRN ORAL For Pain 08/09/19 00:00 08/14/19 17:59 Froilan Caruso MD Aug 09, 2019 07:48
[2019-08-09 08:30] VITALS: BP 149/75
[2019-08-09] MEDS: Neosporin Oint 15gm TOPIC SCH ×2 (09:00→21:00)
[2019-08-09] MEDS ORDERED: dilTIAZem HCl CD 120mg cap ORAL SCH (09:00)
[2019-08-09] MEDS: Revatio 20mg tab ORAL SCH ×2 (09:52→18:16)
[2019-08-09] MEDS: Docusate 100mg cap ORAL SCH ×2 (09:53→22:04)
[2019-08-09] MEDS: Solu-MEDROL 40mg Inj IVP SCH ×2 (09:53→22:06)
[2019-08-09] MEDS: dilTIAZem HCl CD 180mg cap ORAL SCH (09:53)
[2019-08-09] MEDS: Doxycycline Monohydrate 100mg ORAL SCH ×2 (09:53→22:03)
[2019-08-09] MEDS: Aspirin Baby 81mg ORAL SCH (09:54)
[2019-08-09] MEDS: Anastrazole 1mg tab ORAL SCH (09:54)
--- NOTE | 2019-08-09 10:17 | NUR ---
NURSE NOTES: pt wants to keep neosporin at bedside. Pt refuses to give it to RN to get it relabel. Pt states she is the one that puts it on all the time and got angry.
[2019-08-09 12:00] VITALS: BP 168/85
--- NOTE | 2019-08-09 12:27 | NUR ---
CASE MANAGEMENT:REVIEW 08/09/19 SI: PNA. COPD EXACERBATION. RESPIRATORY FAILURE 98.5 85 20 149/75 92% ON 3L/NC-->BIPAP CO2+40 GLUCOSE+369 IS: IV SOLUMEDROL 40MG Q12 DIFLUCAN PO Q24 DOXYCYCLINE PO Q12 SINGULAR PO QHS CLARITIN PO QD ZOLOFT PO QHS ASA PO QD CARDIZEM PO QD IV LASIX QD HYDRALAZINE PO Q8HRS : NOW ON TELEMETRY DCP: FROM HOME
--- NOTE | 2019-08-09 14:16 | NUR ---
NURSE NOTES:WOUND CARE NOTES:Pt's skin assessed with Primary nurse present. Skin folds of both breasts and abdomen are clean,dry and intact. Sacrum intact and non-tender when minimally palpated. Both heels are dry, callused and blanchable. No evidence of skin breakdown noted. Pt has been educated on wound prevention. Encouraged to frequently reposition while in bed and to keep heels off-loaded with PIllow. Skin Barrier wipes applied to each heel and each heel covered with Optifoam drsgs.
[2019-08-09 16:00] VITALS: BP 133/70
[2019-08-09] MEDS: HydrOXYzine 50mg tab ORAL PRN (18:24)
[2019-08-09 20:00] VITALS: BP 133/69
--- NOTE | 2019-08-09 20:26 | NUR ---
HAND-OFF: Report given to Mikayla/RN.
--- NOTE | 2019-08-09 20:30 | NUR ---
NURSE NOTES: PT received from CYNDY Schneider alert and oriented x4, with no acute s/s of distress noted. On 2L NC saturating at 92%. IV site asymptomatic and patent on L fa 24g, saline lock. Bed alarm on, bed in lowest position. Call light and belongings within reach.
[2019-08-09] MEDS ORDERED: Fluconazole 100mg tab ORAL SCH (21:00)
[2019-08-09] MEDS: Montelukast 10mg tablet ORAL SCH (22:06)
[2019-08-09] MEDS: Sertraline 50mg tab ORAL SCH (22:15)
[2019-08-09] MEDS: LORazepam Inj 2mg/ml 1ml IV PRN (22:48)
[2019-08-10] VITALS: BP 142/77
[2019-08-10] MEDS: Levalbuterol Inh UD 1.25mg/0.5ml HHN SCH ×4 (00:57→19:33)
--- NOTE | 2019-08-10 03:10 | NUR ---
NURSE NOTES: Patient resting in bed, asleep with no acute s/s of distress noted. IV site asymptomatic and patent, saline lock. Bed in lowest position, call light and belongings within reach. monitoring engineer on - Sinus Rhythm 70s.
--- NOTE | 2019-08-10 03:30 | Progress Note ---
DATE: 08/09/2019 CARDIOLOGY PROGRESS NOTE SUBJECTIVE: The patient is weak and fatigued. Notes limited rest due to her shortness of breath. She is on BiPAP all night. She still has leg swelling. OBJECTIVE: VITAL SIGNS: Blood pressure 158/87, pulse 78, respirations 19, and afebrile. NECK: Jugular venous pressure elevated. LUNGS: With diminished breath sounds and few rales. CARDIAC: Regular rhythm and rate. Normal S1, S2 with a 1/6 systolic apical murmur. ABDOMEN: Soft. No ascites. EXTREMITIES: A 1+ bilateral lower extremity pitting edema. LABORATORY DATA: White count 9.7 and hemoglobin 9.7. Sodium 136, potassium 4.7, bicarb 40, BUN 20, and creatinine 0.9. Albumin 2.8. Pro-natriuretic peptide 827. IMPRESSION: 1. Pulmonary hypertension. 2. Metabolic alkalosis. 3. Respiratory acidosis. 4. Hypertensive heart disease. 5. Chronic obstructive pulmonary disease exacerbation. 6. Respiratory failure. 7. Moderate protein-calorie malnutrition. 8. Severe pulmonary hypertension. PLAN: 1. Plan of care in place. 2. To continue diuresis ever. 3. May need to consider adjustment of diuretic regimen if bicarb levels continue to rise. 4. Discussed with Dr. Downey. 5. The patient remains high risk and unstable for lower level of care. Werner Martinez M.D. DR: CHASITY JOB#: [id number] CC:
[2019-08-10 04:00] VITALS: BP 138/80
[2019-08-10] MEDS: HydrALAZINE 25mg tab ORAL SCH ×3 (06:38→21:00)
[2019-08-10] MEDS: NovoLOG Insulin Flexpen SUBQ SCH ×4 (06:42→20:51)
--- NOTE | 2019-08-10 07:11 | General Progress Note ---
Assessment/Plan Problem List: (1) Hypoxia ICD Codes: R09.02 - Hypoxia SNOMED: 744672925 (2) Anxiety disorder ICD Codes: F41.9 - Anxiety disorder, unspecified SNOMED: 844808331 (3) MDD (major depressive disorder), recurrent episode ICD Codes: F33.9 - Major depressive disorder, recurrent, unspecified SNOMED: 911538129 (4) Hypercapnic respiratory failure ICD Codes: J96.92 - Respiratory failure, unspecified with hypercapnia SNOMED: 180125386 Qualifiers: Qualified Codes: J96.22 - Acute and chronic respiratory failure with hypercapnia (5) Dyspnea ICD Codes: R06.00 - Dyspnea, unspecified SNOMED: 542070207 Qualifiers: Qualified Codes: R06.00 - Dyspnea, unspecified (6) Acute dyspnea (7) Diabetes mellitus ICD Codes: E11.9 - Diabetes mellitus SNOMED: 56036687 (8) Hypertension, malignant ICD Codes: I10 - Hypertension, malignant SNOMED: 98379987 (9) CHF (10) COPD exacerbation ICD Codes: J44.1 - COPD exacerbation SNOMED: 808669703 Status: stable, progressing Assessment/Plan: cont current rx bipap wean steroids resp rx check abg monitor bs BP rx per cards diuresis per cards pt/ot may need snf again Subjective ROS Limited/Unobtainable: No Constitutional: Reports: malaise, weakness HEENT: Reports: no symptoms Cardiovascular: Reports: no symptoms Respiratory: Reports: cough, shortness of breath Gastrointestinal/Abdominal: Reports: no symptoms Genitourinary: Reports: no symptoms Neurologic/Psychiatric: Reports: no symptoms Endocrine: Reports: no symptoms Hematologic/Lymphatic: Reports: no symptoms Allergies: Coded Allergies: AMOXICILLIN (Verified Allergy, Mild, RASH HIVES, 09/29/13) ERYTHROMYCIN BASE (Unverified Allergy, Unknown, 10/13/17) IODINE (Verified Allergy, Unknown, 09/29/13) PENICILLINS (Verified Allergy, Unknown, RASH HIVES, 09/29/13) All Systems: reviewed and negative except above Subjective on bipap. resting. no new complaints. d/w family- pt noncompliant or confused about use/operation of respiratory equipment at home(bipap, o2, nebulizer) Objective Last 24 Hour Vital Signs Date Time Temp Pulse Resp B/P (MAP) Pulse Ox O2 Delivery O2 Flow Rate FiO2 10/29/19 06:38 138/80 08/10/19 05:30 78 16 94 Facial 25 08/10/19 04:00 83 08/10/19 04:00 98.4 79 19 138/80 95 Nasal Cannula 30 08/10/19 03:45 80 18 94 Facial 25 08/10/19 01:10 82 19 96 Facial 25 08/10/19 00:59 80 20 97 Nasal Cannula 2.0 28 78 20 96 08/10/19 00:00 97.8 95 18 142/77 97 Nasal Cannula 30 08/10/19 00:00 91 08/09/19 22:08 133/67 08/09/19 21:00 Bi-pap 08/09/19 20:00 78 08/09/19 20:00 98.7 94 19 133/69 95 Nasal Cannula 30 08/09/19 19:37 94 Nasal Cannula 2.0 28 08/09/19 19:32 84 20 96 Nasal Cannula 2.0 28 81 20 94 08/09/19 16:00 98.9 82 19 133/70 96 Nasal Cannula 30 08/09/19 15:43 81 08/09/19 15:22 138/71 08/09/19 12:25 88 20 99 Nasal Cannula 3.0 89 20 96 08/09/19 12:00 85 08/09/19 12:00 98.6 80 20 168/85 94 Nasal Cannula 30 08/09/19 09:53 85 149/75 08/09/19 08:56 Bi-pap 08/09/19 08:30 98.5 85 20 149/75 92 Nasal Cannula 30 08/09/19 08:00 81 Intake and Output 08/09/19 08/10/19 18:59 06:59 Intake Total 720 ml 500 ml Output Total 250 ml 1400 ml Balance 470 ml -900 ml Intake Oral 720 ml 500 ml Output Urine Total 250 ml 1400 ml # Voids 4 # Bowel Movements 1 1 Height (Feet): 5 Height (Inches): 1.00 Weight (Pounds): 222 Objective General Appearance: WD/WN, alert Neck: supple Cardiovascular: normal rate Respiratory/Chest: chest wall non-tender, no respiratory distress, no accessory muscle use, decreased breath sounds Abdomen: normal bowel sounds, non tender, soft, no organomegaly Edema: no edema noted Arm (L), no edema noted Arm (R), no edema noted Leg (L), no edema noted Leg (R), no edema noted Pedal (L), no edema noted Pedal (R), no edema noted 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
--- NOTE | 2019-08-10 07:36 | NUR ---
HAND-OFF: Report given to CYNDY Muñoz. Plan of care endorsed.
--- NOTE | 2019-08-10 07:49 | NUR ---
NURSE NOTES; PT, awake and alert just finished breakfast. Pt on cardiac cath technician, has no signs of cardiac or respiratory distress at this time. Bed in lowest position and locked. Call light is within reach. Will continue to monitor pt and labs.
[2019-08-10 08:55] VITALS: BP 151/73
[2019-08-10] MEDS: Neosporin Oint 15gm TOPIC SCH ×2 (09:00→20:53)
[2019-08-10] MEDS ORDERED: Solu-MEDROL 40mg Inj IVP SCH (09:00)
--- NOTE | 2019-08-10 09:03 | Pulmonology Progress Note ---
Assessment/Plan Assessment/Plan Impression: Pneumonia COPD exacerbation Chronic respiratory failure Hypoxemia Dyspnea Hypercapnic hypoxic respiratory failure Cardiac disease Diabetes Plan IV Antibiotics ? PO Solumedrol and taper to prednisone O2 PRN BiPAP PRN nebulized therapy check ABG monitor acid base exchange avoid sedation Monitor labs for change impression, plan, and exam edited and reviewed in detail care discussed with RN Subjective Allergies: Coded Allergies: AMOXICILLIN (Verified Allergy, Mild, RASH HIVES, 09/29/13) ERYTHROMYCIN BASE (Unverified Allergy, Unknown, 10/13/17) IODINE (Verified Allergy, Unknown, 09/29/13) PENICILLINS (Verified Allergy, Unknown, RASH HIVES, 09/29/13) Subjective overall care noted chronic sob on oxygen currently order for BIPAP noted alert Objective Last 24 Hour Vital Signs Date Time Temp Pulse Resp B/P (MAP) Pulse Ox O2 Delivery O2 Flow Rate FiO2 08/10/19 08:55 97.0 85 18 151/73 94 Nasal Cannula 30 08/10/19 08:11 75 20 100 Nasal Cannula 2.0 28 82 20 100 08/10/19 08:11 99 Nasal Cannula 2.0 08/10/19 06:38 138/80 08/10/19 05:30 78 16 94 Facial 25 08/10/19 04:00 83 08/10/19 04:00 98.4 79 19 138/80 95 Nasal Cannula 30 08/10/19 03:45 80 18 94 Facial 25 08/10/19 01:10 82 19 96 Facial 25 08/10/19 00:59 80 20 97 Nasal Cannula 2.0 28 78 20 96 08/10/19 00:00 97.8 95 18 142/77 97 Nasal Cannula 30 08/10/19 00:00 91 08/09/19 22:08 133/67 08/09/19 21:00 Bi-pap 08/09/19 20:00 78 08/09/19 20:00 98.7 94 19 133/69 95 Nasal Cannula 30 08/09/19 19:37 94 Nasal Cannula 2.0 28 08/09/19 19:32 84 20 96 Nasal Cannula 2.0 28 81 20 94 08/09/19 16:00 98.9 82 19 133/70 96 Nasal Cannula 30 08/09/19 15:43 81 08/09/19 15:22 138/71 08/09/19 12:25 88 20 99 Nasal Cannula 3.0 89 20 96 08/09/19 12:00 85 08/09/19 12:00 98.6 80 20 168/85 94 Nasal Cannula 30 08/09/19 09:53 85 149/75 Intake and Output 08/09/19 08/10/19 18:59 06:59 Intake Total 720 ml 500 ml Output Total 250 ml 1400 ml Balance 470 ml -900 ml Intake Oral 720 ml 500 ml Output Urine Total 250 ml 1400 ml # Voids 4 # Bowel Movements 1 1 Objective WDWN NAD reduced breath sounds bilaterally without rhonchi or wheeze [id number] without MRG NABS nontender no HSM no CC minimal edema obese nonfocal Laboratory Tests 08/10/19 08:45: Arterial Blood pH 7.390, Arterial Blood Partial Pressure CO2 64.7*H, Arterial Blood Partial Pressure O2 83.5, Arterial Blood HCO3 38.3H, Arterial Blood Oxygen Saturation 94.8L, Arterial Blood Base Excess 11.2*H, Rico Test Positive Current Medications Medications (Trade) Dose Ordered Sig/Sera Route PRN Reason Start Time Stop Time Status Last Admin Dose Admin Acetaminophen (Tylenol) 650 mg Q4H PRN ORAL Pain Scale (6-10) 08/08/19 23:00 09/05/19 18:59 08/09/19 18:23 Anastrozole (Arimidex) 1 mg DAILY ORAL 08/09/19 09:00 09/06/19 08:59 08/09/19 09:54 Aspirin (ASA) 81 mg DAILY ORAL 08/09/19 09:00 09/06/19 08:59 08/09/19 09:54 Atorvastatin Calcium (Lipitor) 20 mg BEDTIME ORAL 08/09/19 21:00 09/05/19 20:59 08/09/19 22:05 Dextrose (Dextrose 50%) 25 ml Q30M PRN IV Hypoglycemia 08/08/19 23:00 09/05/19 18:59 Dextrose (Dextrose 50%) 50 ml Q30M PRN IV Hypoglycemia 08/08/19 23:00 09/05/19 18:59 Diltiazem HCl (Cardizem CD) 180 mg DAILY ORAL 08/09/19 09:00 09/08/19 08:59 08/09/19 09:53 Docusate Sodium (Colace) 100 mg EVERY 12 HOURS ORAL 08/09/19 09:00 09/06/19 08:59 08/09/19 22:04 Doxycycline Monohydrate (Doxycycline Monohydrate) 100 mg EVERY 12 HOURS ORAL 08/09/19 09:00 08/14/19 20:59 08/09/19 22:03 Furosemide (Lasix) 40 mg DAILY IV 08/09/19 09:00 09/08/19 08:59 08/09/19 09:52 Hydralazine HCl (Apresoline) 25 mg EVERY 8 HOURS ORAL 08/09/19 06:00 09/05/19 21:59 08/10/19 06:38 Hydralazine HCl (Apresoline) 25 mg Q6HR PRN ORAL SBP above 150or DBP above 95 08/09/19 00:30 09/08/19 00:29 08/09/19 00:47 Hydroxyzine HCl (Atarax) 25 mg TIDPRN PRN ORAL For Anxiety 08/09/19 08:00 09/06/19 07:59 08/09/19 18:24 Insulin Aspart (NovoLOG) BEFORE MEALS AND HS SUBQ 08/09/19 06:30 09/05/19 20:59 08/10/19 06:42 Ipratropium [place] (Atrovent) 500 mcg Q4H PRN HHN Shortness of Breath 08/08/19 23:15 08/12/19 15:14 Levalbuterol HCl (Xopenex) 0.625 mg Q6HRT HHN 08/09/19 01:00 08/12/19 18:59 08/10/19 08:10 Loratadine (Claritin 10mg) 10 mg DAILY ORAL 08/09/19 09:00 09/06/19 08:59 08/09/19 09:54 Lorazepam (Ativan 2mg/ml 1ml) 1 mg Q4H PRN IV For Anxiety 08/09/19 02:00 08/14/19 17:59 08/09/19 22:48 Magnesium Hydroxide (Mom) 30 ml Q8H PRN ORAL Constipation 08/09/19 04:15 09/07/19 20:14 Methylprednisolone Sodium Succinate (Solu-MEDROL) 40 mg DAILY IVP 08/10/19 09:00 09/09/19 08:59 Mirtazapine (Remeron) 7.5 mg BEDTIME PRN ORAL insomnia 08/09/19 21:00 09/06/19 18:59 Montelukast Sodium (Singulair) 10 mg QHS ORAL 08/09/19 21:00 09/05/19 20:59 08/09/19 22:06 Neomycin/ Polymyxin/ Bacitracin (Neosporin Oint 15gm) 1 applic EVERY 12 HOURS TOPIC 08/09/19 09:00 09/07/19 09:29 Ondansetron HCl (Zofran) 4 mg Q6H PRN IVP Nausea & Vomiting 08/09/19 01:00 09/05/19 18:59 Pantoprazole (Protonix) 40 mg ACBREAKFAST ORAL 08/09/19 06:30 09/05/19 23:29 08/10/19 06:38 Sertraline HCl (Zoloft) 100 mg QHS ORAL 08/09/19 21:00 09/05/19 20:59 08/09/19 22:15 Sildenafil Citrate (Revatio) 20 mg TWICE A DAY ORAL 08/09/19 09:00 09/05/19 23:29 08/09/19 18:16 Tramadol HCl (Ultram) 50 mg Q6H PRN ORAL For Pain 08/09/19 00:00 08/14/19 17:59 Froilan Caruso MD Aug 10, 2019 09:03
--- NOTE | 2019-08-10 09:16 | NUR ---
RD ASSESSMENT & RECOMMENDATIONS SEE CARE ACTIVITY FOR COMPLETE ASSESSMENT DAILY ESTIMATED NEEDS: Needs based on DM, Pulmonary, Obesity/ 60kg adj 22-25 kcals/kg 4650-1453 total kcals 1-1.5 g protein/kg 60-90 g total protein Fluid per MD, on lasix NUTRITION DIAGNOSIS: 1) Altered nutrition related lab values R/T DM dx, h/o COPD as evidenced by elev POC glu ([phone]), pt on steroidal meds. (CURRENT DIET: CCHO Med) PO DIET RECOMMENDATIONS--->>> REC CHANGE TO CARDIAC/ CCHO LOW DIET ADDITIONAL RECOMMENDATIONS: 1) Calibrated bedscale wt (EMR wt: 222 vs BED wt: 216#) 2) Monitor lytes closely, replete as needed- pt on lasix Rec B-complex qdaily 3) Consider long acting insulin for improved glycemic control 4) Rec diet change as above for kcal + glycemic control
[2019-08-10] MEDS: Revatio 20mg tab ORAL SCH ×2 (09:26→20:02)
[2019-08-10] MEDS: dilTIAZem HCl CD 180mg cap ORAL SCH (09:26)
[2019-08-10] MEDS: Aspirin Baby 81mg ORAL SCH (09:26)
[2019-08-10] MEDS: Docusate 100mg cap ORAL SCH ×2 (09:26→20:51)
[2019-08-10] MEDS: Anastrazole 1mg tab ORAL SCH (09:26)
[2019-08-10] MEDS: Doxycycline Monohydrate 100mg ORAL SCH ×2 (09:26→20:51)
[2019-08-10] MEDS: HydrOXYzine 50mg tab ORAL PRN ×2 (11:36→20:02)
[2019-08-10 12:00] VITALS: BP 151/73
[2019-08-10 16:00] VITALS: BP 132/73
--- NOTE | 2019-08-10 17:00 | Cardiology Report ---
APPROVED REPORT EKG Measurement Heart [id number] Normal sinus rhythm Possible Left atrial enlargement RSR' or QR pattern in V1 suggests right ventricular conduction delay Borderline ECG
--- NOTE | 2019-08-10 19:47 | NUR ---
NURSE NOTES: Pt received from CYNDY Muñoz alert and oriented x4 with no acute s/s of distress noted. On 2L NC, saturating at 92% with no acute s/s of resp distress noted. IV site asymptomatic and patent, on L fa 24g, saline lock. Bed in lowest position, bed alarm on. Call light and belongings within reach.
[2019-08-10 20:00] VITALS: BP 149/74
--- NOTE | 2019-08-10 20:38 | NUR ---
HAND-OFF: Report given to [place]/RN pt in stable condition.
[2019-08-10] MEDS: Montelukast 10mg tablet ORAL SCH (20:51)
[2019-08-10] MEDS: Sertraline 50mg tab ORAL SCH (20:51)
[2019-08-10] MEDS: Atorvastatin 20mg tab ORAL SCH (20:51)
[2019-08-10] MEDS: LORazepam Inj 2mg/ml 1ml IV PRN (21:47)
--- NOTE | 2019-08-10 23:29 | NUR ---
RESPIRATORY NOTE: placed pt on Bipap settings of IPAP 15, EPAP 5, Backup rate of 16, FiO2 30%. pt has facial mask. no skin breakdown and no redness noted. pt tolerating so far. will continue to monitor pt. RN notified.
[2019-08-11] VITALS: BP 145/76
[2019-08-11] MEDS: Levalbuterol Inh UD 1.25mg/0.5ml HHN SCH ×4 (01:28→19:45)
--- NOTE | 2019-08-11 02:45 | Progress Note ---
DATE: 08/10/2019 CARDIOLOGY PROGRESS NOTE SUBJECTIVE: The patient remains on BiPAP support at night. She still has episodes of respiratory distress. She is impaired with regard to mobility due to dyspnea and muscle weakness. There are no more frequent episodes of stability on nasal cannula over the past 24 hours. She continues on IV diuretic therapy. OBJECTIVE: VITAL SIGNS: Blood pressure 132/73, pulse 80, and respirations 18. Afebrile. LUNGS: Coarse breath sounds. No wheezing. HEART: Regular rhythm and rate. Normal S1, S2 with a 1/6 systolic apical murmur. ABDOMEN: Soft. EXTREMITIES: 1+ dependent edema. LABORATORY DATA: ABG, pH 7.39, pCO2 65, and pO2 83. IMPRESSION: 1. Acute on chronic diastolic congestive heart failure, improving. 2. Chronic obstructive pulmonary disease with acute exacerbation, resolving. 3. Acute on chronic respiratory acidosis, resolved. 4. Compensatory metabolic alkalosis persists. 5. Insulin-requiring diabetes mellitus with hyperglycemia exacerbated by steroids. 6. Hypertensive heart disease. 7. Moderate protein-calorie malnutrition. PLAN: 1. Recheck laboratory studies. 2. Chest radiograph. 3. Adjust diuretic dose accordingly. 4. BiPAP taper. 5. BiPAP support. 6. Mobilize as able. 7. Steroid taper. 8. Remains high risk. 9. Nutritional support with protein supplement. Werner Martinez M.D. DR: CHASITY JOB#: [id number] CC:
[2019-08-11] MEDS: HydrALAZINE 25mg tab ORAL SCH ×3 (06:09→21:43)
[2019-08-11] MEDS: NovoLOG Insulin Flexpen SUBQ SCH ×4 (06:13→21:50)
[2019-08-11 07:21] LABS: BASOPHILS % (AUTO) 1.5 % (0.0-2.0); EOSINOPHILS % (AUTO) 0.5 % (0.0-3.0); HEMOGLOBIN 10.4 G/DL (12.0-16.0); LYMPHOCYTES % (AUTO) 26.4 % (20.0-45.0); MEAN CORPUSCULAR VOLUME 85 FL (80-99); NEUTROPHILS % (AUTO) 62.6 % (45.0-75.0); PLATELET COUNT 313 K/UL (150-450); RED CELL DISTRIBUTION WIDTH 13.1 % (11.6-14.8); WHITE BLOOD COUNT 10.2 K/UL (4.8-10.8)
--- NOTE | 2019-08-11 07:36 | NUR ---
HAND-OFF: Report given to CYNDY Kinsey. Plan of care endorsed.
[2019-08-11 07:50] LABS: ALANINE AMINOTRANSFERASE 14 U/L (12-78); ALBUMIN 2.6 G/DL (3.4-5.0); ALBUMIN/GLOBULIN RATIO 0.7 (1.0-2.7); ALKALINE PHOSPHATASE 67 U/L (46-116); ANION GAP 4 mmol/L (5-15); ASPARTATE AMINO TRANSFERASE 10 U/L (15-37); BILIRUBIN,TOTAL 0.2 MG/DL (0.2-1.0); BLOOD UREA NITROGEN 26 mg/dL (7-18); CALCIUM 8.8 MG/DL (8.5-10.1); CARBON DIOXIDE 38 MMOL/L (21-32); CHLORIDE 97 MMOL/L (98-107); POTASSIUM 4.1 MMOL/L (3.5-5.1); SODIUM 139 MMOL/L (136-145)
--- NOTE | 2019-08-11 07:55 | NUR ---
NURSE NOTES: Received from Chetan NAYLOR. Patient alert and orientedx4. No c/o pain. On 2LPM via N/C. O2 saturating with 95%. IV site in LFA 24G patent and asymptomatic. Will continue to plan of care. Call light within easy reach. Bed in lowest position and locked. Bipap is ready at the bedside. Will continue to plan of care.
[2019-08-11 08:00] VITALS: BP 105/50
[2019-08-11] MEDS: dilTIAZem HCl CD 180mg cap ORAL SCH (09:00)
[2019-08-11] MEDS: Revatio 20mg tab ORAL SCH ×2 (09:00→17:20)
--- NOTE | 2019-08-11 09:23 | General Progress Note ---
Assessment/Plan Problem List: (1) Hypoxia ICD Codes: R09.02 - Hypoxia SNOMED: 004736449 (2) Anxiety disorder ICD Codes: F41.9 - Anxiety disorder, unspecified SNOMED: 196547893 (3) MDD (major depressive disorder), recurrent episode ICD Codes: F33.9 - Major depressive disorder, recurrent, unspecified SNOMED: 588114950 (4) Hypercapnic respiratory failure ICD Codes: J96.92 - Respiratory failure, unspecified with hypercapnia SNOMED: 874900691 Qualifiers: Qualified Codes: J96.22 - Acute and chronic respiratory failure with hypercapnia (5) Dyspnea ICD Codes: R06.00 - Dyspnea, unspecified SNOMED: 804870252 Qualifiers: Qualified Codes: R06.00 - Dyspnea, unspecified (6) Acute dyspnea (7) Diabetes mellitus ICD Codes: E11.9 - Diabetes mellitus SNOMED: 59261041 (8) Hypertension, malignant ICD Codes: I10 - Hypertension, malignant SNOMED: 44347983 (9) CHF (10) COPD exacerbation ICD Codes: J44.1 - COPD exacerbation SNOMED: 237025878 Status: stable, progressing Assessment/Plan: cont current rx bipap wean steroids resp rx check abg monitor bs BP rx per cards diuresis per cards pt/ot dc planning home tomorrow Subjective ROS Limited/Unobtainable: No Constitutional: Reports: malaise, weakness HEENT: Reports: no symptoms Cardiovascular: Reports: no symptoms Respiratory: Reports: cough, shortness of breath Gastrointestinal/Abdominal: Reports: no symptoms Genitourinary: Reports: no symptoms Neurologic/Psychiatric: Reports: anxiety, depressed Endocrine: Reports: no symptoms Hematologic/Lymphatic: Reports: no symptoms Allergies: Coded Allergies: AMOXICILLIN (Verified Allergy, Mild, RASH HIVES, 09/29/13) ERYTHROMYCIN BASE (Unverified Allergy, Unknown, 10/13/17) IODINE (Verified Allergy, Unknown, 09/29/13) PENICILLINS (Verified Allergy, Unknown, RASH HIVES, 09/29/13) All Systems: reviewed and negative except above Subjective on bipap. resting. no new complaints. d/w family- pt noncompliant or confused about use/operation of respiratory equipment at home(bipap, o2, nebulizer) pt admits to not using inhalers at home Objective Last 24 Hour Vital Signs Date Time Temp Pulse Resp B/P (MAP) Pulse Ox O2 Delivery O2 Flow Rate FiO2 08/11/19 08:00 98.9 89 20 105/50 95 Nasal Cannula 2.0 08/11/19 07:41 97 Nasal Cannula 2.0 28 08/11/19 07:29 88 20 98 Nasal Cannula 3.0 86 20 97 08/11/19 06:09 145/76 08/11/19 05:44 76 17 93 Facial 30 08/11/19 04:00 81 08/11/19 03:21 81 18 93 Facial 30 08/11/19 01:38 85 21 99 Bi-Pap 87 19 94 08/11/19 01:38 87 19 94 Facial 30 08/11/19 00:00 98.6 88 18 145/76 96 Nasal Cannula 30 08/11/19 00:00 90 08/10/19 23:26 89 21 94 Facial 30 08/10/19 21:00 Bi-pap 08/10/19 21:00 149/74 08/10/19 20:00 82 08/10/19 20:00 98.3 86 18 149/74 93 Nasal Cannula 30 08/10/19 19:34 99 Nasal Cannula 2.0 28 08/10/19 19:34 80 18 99 Nasal Cannula 2.0 28 86 18 99 08/10/19 18:00 79 08/10/19 16:00 98.4 80 18 132/73 93 Nasal Cannula 30 08/10/19 13:54 117/54 08/10/19 13:01 85 20 100 Nasal Cannula 2.0 28 85 20 97 08/10/19 12:00 97.0 80 18 151/73 94 Nasal Cannula 30 08/10/19 12:00 90 08/10/19 09:26 85 151/73 Intake and Output 08/10/19 08/11/19 18:59 06:59 Intake Total 1030 ml 500 ml Output Total 1800 ml 900 ml Balance -770 ml -400 ml Intake Oral 1030 ml 500 ml Output Urine Total 1800 ml 900 ml # Bowel Movements 2 1 Laboratory Tests 08/11/19 05:37: White Blood Count 10.2, Red Blood Count 4.00L, Hemoglobin 10.4L, Hematocrit 34.0L, Mean Corpuscular Volume 85, Mean Corpuscular Hemoglobin 26.1L, Mean Corpuscular Hemoglobin Concent 30.7L, Red Cell Distribution Width 13.1, Platelet Count 313, Mean Platelet Volume 6.7, Neutrophils (%) (Auto) 62.6, Lymphocytes (%) (Auto) 26.4, Monocytes (%) (Auto) 9.0, Eosinophils (%) (Auto) 0.5, Basophils (%) (Auto) 1.5, Sodium Level 139, Potassium Level 4.1, Chloride Level 97L, Carbon Dioxide Level 38H, Anion Gap 4L, Blood Urea Nitrogen 26H, Creatinine 1.0, Estimat Glomerular Filtration Rate > 60, Glucose Level 262H, Calcium Level 8.8, Magnesium Level 1.7L, Total Bilirubin 0.2, Aspartate Amino Transf (AST/SGOT) 10L, Alanine Aminotransferase (ALT/SGPT) 14, Alkaline Phosphatase 67, Pro-B-Type Natriuretic Peptide 252H, Total Protein 6.2L, Albumin 2.6L, Globulin 3.6, Albumin/Globulin Ratio 0.7L Height (Feet): 5 Height (Inches): 1.00 Weight (Pounds): 213 Objective General Appearance: WD/WN, alert Neck: supple Cardiovascular: normal rate Respiratory/Chest: chest wall non-tender, no respiratory distress, no accessory muscle use, decreased breath sounds Abdomen: normal bowel sounds, non tender, soft, no organomegaly Edema: no edema noted Arm (L), no edema noted Arm (R), no edema noted Leg (L), no edema noted Leg (R), no edema noted Pedal (L), no edema noted Pedal (R), no edema noted Generalized Neurologic: singe winder II-XII grossly normal, alert, oriented x 3, responsive Floyd Downey MD Aug 11, 2019 09:23
[2019-08-11] MEDS: Anastrazole 1mg tab ORAL SCH (09:45)
[2019-08-11] MEDS: Docusate 100mg cap ORAL SCH ×2 (09:46→21:43)
[2019-08-11] MEDS: Doxycycline Monohydrate 100mg ORAL SCH ×2 (09:46→21:42)
[2019-08-11] MEDS: Aspirin Baby 81mg ORAL SCH (09:46)
[2019-08-11] MEDS: Neosporin Oint 15gm TOPIC SCH ×3 (09:57→21:00)
--- NOTE | 2019-08-11 11:43 | NUR ---
CASE MANAGEMENT:REVIEW 08/11/19 SI: PNA. COPD EXACERBATION. RESPIRATORY FAILURE 98.9 89 20 105/50 95% ON 2L/NC-->BIPAP H/H-10.4/34.0 CO2+38 IS: PREDNISONE PO QD DOXYCYCLINE PO Q12 SINGULAR PO QHS CLARITIN PO QD ZOLOFT PO QHS ASA PO QD CARDIZEM PO QD IV LASIX QD HYDRALAZINE PO Q8HRS : NOW ON TELEMETRY DCP: FROM HOME
[2019-08-11 12:00] VITALS: BP 129/64
--- NOTE | 2019-08-11 15:40 | Pulmonology Progress Note ---
Assessment/Plan Assessment/Plan Pulmonary Progress Note HPI Patient is a 59-year-old female with previous history of COPD, Cardiac Disease, DM, presented with acute shortness of breath, noted to have Pneumonias versus Atelectasis, mild Pulmonary Congestion, Hypercapneic Respiratory Failure. Denies nausea, vomiting, abdominal pain she does endorse some chest tightness no aggravating relieving factors . Past Medical History: COPD, Cardiac Disease, Diabetes Less SOB today Impression: Pneumonia COPD exacerbation Chronic respiratory failure Hypoxemia Dyspnea Hypercapnic hypoxic respiratory failure Cardiac disease Diabetes Plan Antibiotics ? PO Prednisone O2 PRN BiPAP PRN nebulized therapy check ABG monitor acid base exchange avoid sedation Monitor labs for change impression, plan, and exam edited and reviewed in detail care discussed with RN Subjective Allergies: Coded Allergies: AMOXICILLIN (Verified Allergy, Mild, RASH HIVES, 09/29/13) ERYTHROMYCIN BASE (Unverified Allergy, Unknown, 10/13/17) IODINE (Verified Allergy, Unknown, 09/29/13) PENICILLINS (Verified Allergy, Unknown, RASH HIVES, 09/29/13) Subjective overall care noted chronic sob on oxygen currently order for BIPAP noted alert Objective Vital Signs Noted Objective WDWN NAD reduced breath sounds bilaterally without rhonchi or wheeze [id number] without MRG NABS nontender no HSM no CC minimal edema obese nonfocal Laboratory Tests 08/10/19 08:45: Arterial Blood pH 7.390, Arterial Blood Partial Pressure CO2 64.7*H, Arterial Blood Partial Pressure O2 83.5, Arterial Blood HCO3 38.3H, Arterial Blood Oxygen Saturation 94.8L, Arterial Blood Base Excess 11.2*H, Rico Test Positive Current Medications Medications (Trade) Dose Ordered Sig/Sera Route PRN Reason Start Time Stop Time Status Last Admin Dose Admin Acetaminophen (Tylenol) 650 mg Q4H PRN ORAL Pain Scale (6-10) 08/08/19 23:00 09/05/19 18:59 08/09/19 18:23 Anastrozole (Arimidex) 1 mg DAILY ORAL 08/09/19 09:00 09/06/19 08:59 08/09/19 09:54 Aspirin (ASA) 81 mg DAILY ORAL 08/09/19 09:00 09/06/19 08:59 08/09/19 09:54 Atorvastatin Calcium (Lipitor) 20 mg BEDTIME ORAL 08/09/19 21:00 09/05/19 20:59 08/09/19 22:05 Dextrose (Dextrose 50%) 25 ml Q30M PRN IV Hypoglycemia 08/08/19 23:00 09/05/19 18:59 Dextrose (Dextrose 50%) 50 ml Q30M PRN IV Hypoglycemia 08/08/19 23:00 09/05/19 18:59 Diltiazem HCl (Cardizem CD) 180 mg DAILY ORAL 08/09/19 09:00 09/08/19 08:59 08/09/19 09:53 Docusate Sodium (Colace) 100 mg EVERY 12 HOURS ORAL 08/09/19 09:00 09/06/19 08:59 08/09/19 22:04 Doxycycline Monohydrate (Doxycycline Monohydrate) 100 mg EVERY 12 HOURS ORAL 08/09/19 09:00 08/14/19 20:59 08/09/19 22:03 Furosemide (Lasix) 40 mg DAILY IV 08/09/19 09:00 09/08/19 08:59 08/09/19 09:52 Hydralazine HCl (Apresoline) 25 mg EVERY 8 HOURS ORAL 08/09/19 06:00 09/05/19 21:59 08/10/19 06:38 Hydralazine HCl (Apresoline) 25 mg Q6HR PRN ORAL SBP above 150or DBP above 95 08/09/19 00:30 09/08/19 00:29 08/09/19 00:47 Hydroxyzine HCl (Atarax) 25 mg TIDPRN PRN ORAL For Anxiety 08/09/19 08:00 09/06/19 07:59 08/09/19 18:24 Insulin Aspart (NovoLOG) BEFORE MEALS AND HS SUBQ 08/09/19 06:30 09/05/19 20:59 08/10/19 06:42 Ipratropium [place] (Atrovent) 500 mcg Q4H PRN HHN Shortness of Breath 08/08/19 23:15 08/12/19 15:14 Levalbuterol HCl (Xopenex) 0.625 mg Q6HRT HHN 08/09/19 01:00 08/12/19 18:59 08/10/19 08:10 Loratadine (Claritin 10mg) 10 mg DAILY ORAL 08/09/19 09:00 09/06/19 08:59 08/09/19 09:54 Lorazepam (Ativan 2mg/ml 1ml) 1 mg Q4H PRN IV For Anxiety 08/09/19 02:00 08/14/19 17:59 08/09/19 22:48 Magnesium Hydroxide (Mom) 30 ml Q8H PRN ORAL Constipation 08/09/19 04:15 09/07/19 20:14 Methylprednisolone Sodium Succinate (Solu-MEDROL) 40 mg DAILY IVP 08/10/19 09:00 09/09/19 08:59 Mirtazapine (Remeron) 7.5 mg BEDTIME PRN ORAL insomnia 08/09/19 21:00 09/06/19 18:59 Montelukast Sodium (Singulair) 10 mg QHS ORAL 08/09/19 21:00 09/05/19 20:59 08/09/19 22:06 Neomycin/ Polymyxin/ Bacitracin (Neosporin Oint 15gm) 1 applic EVERY 12 HOURS TOPIC 08/09/19 09:00 09/07/19 09:29 Ondansetron HCl (Zofran) 4 mg Q6H PRN IVP Nausea & Vomiting 08/09/19 01:00 09/05/19 18:59 Pantoprazole (Protonix) 40 mg ACBREAKFAST ORAL 08/09/19 06:30 09/05/19 23:29 08/10/19 06:38 Sertraline HCl (Zoloft) 100 mg QHS ORAL 08/09/19 21:00 09/05/19 20:59 08/09/19 22:15 Sildenafil Citrate (Revatio) 20 mg TWICE A DAY ORAL 08/09/19 09:00 09/05/19 23:29 08/09/19 18:16 Tramadol HCl (Ultram) 50 mg Q6H PRN ORAL For Pain 08/09/19 00:00 08/14/19 17:59 Subjective ROS Limited/Unobtainable: No Allergies: Coded Allergies: AMOXICILLIN (Verified Allergy, Mild, RASH HIVES, 09/29/13) ERYTHROMYCIN BASE (Unverified Allergy, Unknown, 10/13/17) IODINE (Verified Allergy, Unknown, 09/29/13) PENICILLINS (Verified Allergy, Unknown, RASH HIVES, 09/29/13) Objective Last 24 Hour Vital Signs Date Time Temp Pulse Resp B/P (MAP) Pulse Ox O2 Delivery O2 Flow Rate FiO2 08/11/19 13:22 129/64 08/11/19 13:15 98 20 96 Nasal Cannula 1.0 103 22 93 08/11/19 12:00 98.1 88 20 129/64 95 Nasal Cannula 2.0 08/11/19 12:00 84 08/11/19 09:00 89 105/50 08/11/19 09:00 Bi-pap 08/11/19 08:00 95 08/11/19 08:00 98.9 89 20 105/50 95 Nasal Cannula 2.0 08/11/19 07:41 97 Nasal Cannula 2.0 28 08/11/19 07:29 88 20 98 Nasal Cannula 3.0 86 20 97 08/11/19 06:09 145/76 08/11/19 05:44 76 17 93 Facial 30 08/11/19 04:00 81 08/11/19 03:21 81 18 93 Facial 30 08/11/19 01:38 85 21 99 Bi-Pap 87 19 94 08/11/19 01:38 87 19 94 Facial 30 08/11/19 00:00 98.6 88 18 145/76 96 Nasal Cannula 30 08/11/19 00:00 90 08/10/19 23:26 89 21 94 Facial 30 08/10/19 21:00 Bi-pap 08/10/19 21:00 149/74 08/10/19 20:00 82 08/10/19 20:00 98.3 86 18 149/74 93 Nasal Cannula 30 08/10/19 19:34 99 Nasal Cannula 2.0 28 08/10/19 19:34 80 18 99 Nasal Cannula 2.0 28 86 18 99 08/10/19 18:00 79 08/10/19 16:00 98.4 80 18 132/73 93 Nasal Cannula 30 Intake and Output 08/10/19 08/11/19 19:00 07:00 Intake Total 1030 ml 500 ml Output Total 1800 ml 900 ml Balance -770 ml -400 ml Intake Oral 1030 ml 500 ml Output Urine Total 1800 ml 900 ml # Bowel Movements 2 1 Laboratory Tests 08/11/19 05:37: White Blood Count 10.2, Red Blood Count 4.00L, Hemoglobin 10.4L, Hematocrit 34.0L, Mean Corpuscular Volume 85, Mean Corpuscular Hemoglobin 26.1L, Mean Corpuscular Hemoglobin Concent 30.7L, Red Cell Distribution Width 13.1, Platelet Count 313, Mean Platelet Volume 6.7, Neutrophils (%) (Auto) 62.6, Lymphocytes (%) (Auto) 26.4, Monocytes (%) (Auto) 9.0, Eosinophils (%) (Auto) 0.5, Basophils (%) (Auto) 1.5, Sodium Level 139, Potassium Level 4.1, Chloride Level 97L, Carbon Dioxide Level 38H, Anion Gap 4L, Blood Urea Nitrogen 26H, Creatinine 1.0, Estimat Glomerular Filtration Rate > 60, Glucose Level 262H, Calcium Level 8.8, Magnesium Level 1.7L, Total Bilirubin 0.2, Aspartate Amino Transf (AST/SGOT) 10L, Alanine Aminotransferase (ALT/SGPT) 14, Alkaline Phosphatase 67, Pro-B-Type Natriuretic Peptide 252H, Total Protein 6.2L, Albumin 2.6L, Globulin 3.6, Albumin/Globulin Ratio 0.7L Current Medications Medications (Trade) Dose Ordered Sig/Sera Route PRN Reason Start Time Stop Time Status Last Admin Dose Admin Acetaminophen (Tylenol) 650 mg Q4H PRN ORAL Pain Scale (6-10) 08/08/19 23:00 09/05/19 18:59 08/11/19 13:23 Anastrozole (Arimidex) 1 mg DAILY ORAL 08/09/19 09:00 09/06/19 08:59 08/11/19 09:45 Aspirin (ASA) 81 mg DAILY ORAL 08/09/19 09:00 09/06/19 08:59 08/11/19 09:46 Atorvastatin Calcium (Lipitor) 20 mg BEDTIME ORAL 08/10/19 21:00 09/08/19 20:59 08/10/19 20:51 Dextrose (Dextrose 50%) 25 ml Q30M PRN IV Hypoglycemia 08/08/19 23:00 09/05/19 18:59 Dextrose (Dextrose 50%) 50 ml Q30M PRN IV Hypoglycemia 08/08/19 23:00 09/05/19 18:59 Diltiazem HCl (Cardizem CD) 180 mg DAILY ORAL 08/09/19 09:00 09/08/19 08:59 08/10/19 09:26 Docusate Sodium (Colace) 100 mg EVERY 12 HOURS ORAL 08/09/19 09:00 09/06/19 08:59 08/11/19 09:46 Doxycycline Monohydrate (Doxycycline Monohydrate) 100 mg EVERY 12 HOURS ORAL 08/09/19 09:00 08/14/19 20:59 08/11/19 09:46 Furosemide (Lasix) 40 mg DAILY IV 08/09/19 09:00 09/08/19 08:59 08/11/19 09:46 Hydralazine HCl (Apresoline) 25 mg EVERY 8 HOURS ORAL 08/09/19 06:00 09/05/19 21:59 08/11/19 13:22 Hydralazine HCl (Apresoline) 25 mg Q6HR PRN ORAL SBP above 150or DBP above 95 08/09/19 00:30 09/08/19 00:29 08/09/19 00:47 Hydroxyzine HCl (Atarax) 25 mg TIDPRN PRN ORAL For Anxiety 08/09/19 08:00 09/06/19 07:59 08/10/19 20:02 Insulin Aspart (NovoLOG) BEFORE MEALS AND HS SUBQ 08/09/19 06:30 09/05/19 20:59 08/11/19 11:57 Ipratropium [place] (Atrovent) 500 mcg Q4H PRN HHN Shortness of Breath 08/08/19 23:15 08/12/19 15:14 Levalbuterol HCl (Xopenex) 0.625 mg Q6HRT HHN 08/09/19 01:00 08/12/19 18:59 08/11/19 13:05 Loratadine (Claritin 10mg) 10 mg DAILY ORAL 08/09/19 09:00 09/06/19 08:59 08/11/19 09:45 Lorazepam (Ativan 2mg/ml 1ml) 1 mg Q4H PRN IV For Anxiety 08/09/19 02:00 08/14/19 17:59 08/10/19 21:47 Magnesium Hydroxide (Mom) 30 ml Q8H PRN ORAL Constipation 08/09/19 04:15 09/07/19 20:14 Mirtazapine (Remeron) 7.5 mg BEDTIME PRN ORAL insomnia 08/09/19 21:00 09/06/19 18:59 Montelukast Sodium (Singulair) 10 mg QHS ORAL 08/09/19 21:00 09/05/19 20:59 08/10/19 20:51 Neomycin/ Polymyxin/ Bacitracin (Neosporin Oint 15gm) 1 applic EVERY 12 HOURS TOPIC 08/09/19 09:00 09/07/19 09:29 08/11/19 09:58 Ondansetron HCl (Zofran) 4 mg Q6H PRN IVP Nausea & Vomiting 08/09/19 01:00 09/05/19 18:59 Pantoprazole (Protonix) 40 mg ACBREAKFAST ORAL 08/09/19 06:30 09/05/19 23:29 08/11/19 06:09 Prednisone (predniSONE) 20 mg DAILY ORAL 08/11/19 09:00 09/10/19 08:59 08/11/19 09:46 Sertraline HCl (Zoloft) 100 mg QHS ORAL 08/09/19 21:00 09/05/19 20:59 08/10/19 20:51 Sildenafil Citrate (Revatio) 20 mg TWICE A DAY ORAL 08/09/19 09:00 09/05/19 23:29 08/10/19 20:02 Tramadol HCl (Ultram) 50 mg Q6H PRN ORAL For Pain 08/09/19 00:00 08/14/19 17:59 Werner Crump MD Aug 11, 2019 15:40
[2019-08-11 16:00] VITALS: BP 118/61
[2019-08-11] MEDS ORDERED: BREO ELLIPTA 11 EACH IH (18:37)
[2019-08-11] MEDS ORDERED: NYSTATIN100000 UN1 ORAL (18:37)
[2019-08-11] MEDS ORDERED: ACETAMINOPHEN500 M3 ORAL (18:37)
[2019-08-11] MEDS ORDERED: FUROSEMIDE40 MG ORAL (18:37)
[2019-08-11] MEDS ORDERED: SPIRIVA18 MCG INH (18:37)
[2019-08-11] MEDS ORDERED: AMLODIPINE BESYL5 MG ORAL (18:37)
[2019-08-11] MEDS ORDERED: LEVOFLOXACIN250 MG ORAL (18:37)
[2019-08-11] MEDS ORDERED: ONDANSETRON ODT4 MG BC (18:37)
[2019-08-11] MEDS ORDERED: HUMALOG100 UNIT/3 SUBQ (18:37)
[2019-08-11] MEDS ORDERED: ZOLOFT100 MG ORAL (18:37)
[2019-08-11] MEDS ORDERED: HYDRALAZINE HCL50 MG ORAL (18:37)
--- NOTE | 2019-08-11 19:22 | NUR ---
HAND-OFF: Report given to Christiano RN. Pt remains stable.
[2019-08-11 20:00] VITALS: BP 130/67
--- NOTE | 2019-08-11 20:08 | NUR ---
Received report from CYNDY Kinesy. The patient is resting on the bed without acute distress or shortness of breath. The patient's bed in the lowest position, call light in reach. Will continue plan of care.
[2019-08-11] MEDS: Sertraline 50mg tab ORAL SCH (21:41)
[2019-08-11] MEDS: HydrOXYzine 50mg tab ORAL PRN (21:42)
[2019-08-11] MEDS: Montelukast 10mg tablet ORAL SCH (21:43)
[2019-08-11] MEDS: Atorvastatin 20mg tab ORAL SCH (21:43)
[2019-08-11] MEDS: LORazepam Inj 2mg/ml 1ml IV PRN (23:34)
[2019-08-12] VITALS: BP 120/75
[2019-08-12] MEDS: Levalbuterol Inh UD 1.25mg/0.5ml HHN SCH ×3 (00:59→13:04)
--- NOTE | 2019-08-12 01:15 | Progress Note ---
DATE: 08/11/2019 SUBJECTIVE: The patient feels much better. She is on BiPAP at night. She is comfortable on low flow nasal cannula and during the day. She was concerned about how to know if she is getting worse when she is home. I informed her of the signs that may be suggestive of CO2 retention and . I discussed it with her daughter as well. OBJECTIVE: VITAL SIGNS: Blood pressure 129/64, pulse 84, and respirations 20. LUNGS: Diminished breath sounds. LUNGS: Regular rhythm and rate. Normal S1, S2 with a fourth heart sound. ABDOMEN: Soft and obese. EXTREMITIES: No edema. LABORATORY DATA: Sodium 139, potassium 4.1, bicarb 38, BUN 26, and creatinine 1. Magnesium 1.7. Albumin 2.6. White count 10 and hemoglobin 10.4. IMPRESSION: 1. Respiratory failure, now improved. 2. Acute on chronic respiratory acidosis, resolved. 3. Acute on chronic diastolic congestive heart failure, compensated. 4. Hypertensive heart disease with controlled blood pressure. 5. Hypomagnesemia. 6. History of breast cancer. 7. Severe chronic obstructive pulmonary disease. PLAN: 1. Titrate cardiovascular regimen. 2. Maintenance dose diuretic. 3. Respiratory hygiene. 4. Steroid taper. 5. Monitor acid-base parameters. 6. Trend natriuretic peptide assay. Werner Martinez M.D. DR: CHASITY JOB#: [id number] CC:
[2019-08-12 04:00] VITALS: BP 148/81
[2019-08-12] MEDS: HydrALAZINE 25mg tab ORAL SCH (06:12)
[2019-08-12] MEDS: NovoLOG Insulin Flexpen SUBQ SCH ×2 (06:14→11:11)
--- NOTE | 2019-08-12 07:38 | NUR ---
HAND-OFF: Report given to Tasha Pemberton RN. Patient stable. Plan of care endorsed.
--- NOTE | 2019-08-12 07:44 | NUR ---
NURSE NOTES: Nurse report given by CYNDY Willis . Patient's awake and eating breakfast in bed, AO x 4, denies pain, no s/s of distress or SOB. Bed low and locked, call light within reach. IV is saline locked, flushed well, patent and asymptomatic. All needs met. Will continue to monitor.
[2019-08-12 08:00] VITALS: BP 120/63
[2019-08-12] MEDS: Revatio 20mg tab ORAL SCH (08:31)
[2019-08-12] MEDS: Aspirin Baby 81mg ORAL SCH (08:31)
[2019-08-12] MEDS: Docusate 100mg cap ORAL SCH (08:31)
[2019-08-12] MEDS: Doxycycline Monohydrate 100mg ORAL SCH (08:31)
[2019-08-12] MEDS: dilTIAZem HCl CD 180mg cap ORAL SCH (08:31)
[2019-08-12] MEDS: Anastrazole 1mg tab ORAL SCH (08:31)
[2019-08-12] MEDS: Neosporin Oint 15gm TOPIC SCH (08:31)
--- NOTE | 2019-08-12 08:32 | Pulmonology Progress Note ---
Assessment/Plan Assessment/Plan Impression: Pneumonia COPD exacerbation Chronic respiratory failure Hypoxemia Dyspnea Hypercapnic hypoxic respiratory failure Cardiac disease Diabetes Plan po PREDNISONE O2 PRN BiPAP PRN and at HS nebulized therapy check ABG monitor acid base exchange avoid sedation and reassess Monitor labs for change and follow up impression, plan, and exam edited and reviewed in detail care discussed with RN Subjective Allergies: Coded Allergies: AMOXICILLIN (Verified Allergy, Mild, RASH HIVES, 09/29/13) ERYTHROMYCIN BASE (Unverified Allergy, Unknown, 10/13/17) IODINE (Verified Allergy, Unknown, 09/29/13) PENICILLINS (Verified Allergy, Unknown, RASH HIVES, 09/29/13) Subjective overall care noted chronic sob but comfortable on oxygen currently using BIPAP alert Objective Last 24 Hour Vital Signs Date Time Temp Pulse Resp B/P (MAP) Pulse Ox O2 Delivery O2 Flow Rate FiO2 08/12/19 08:09 98 24 99 Nasal Cannula 2.0 28 95 27 95 08/12/19 08:05 96 Nasal Cannula 2.0 28 08/12/19 08:00 98.0 107 18 120/63 97 Nasal Cannula 2.0 28 08/12/19 06:12 148/81 08/12/19 04:13 94 20 99 Nasal Cannula 2.0 91 20 97 08/12/19 04:00 91 08/12/19 04:00 98.8 92 18 148/81 100 Nasal Cannula 2.0 08/12/19 02:53 92 19 94 Facial 30 08/12/19 01:01 91 18 98 Facial 30 08/12/19 00:59 93 20 100 Bi-Pap 30 91 22 98 08/12/19 00:00 98.0 99 18 120/75 100 Nasal Cannula 2.0 28 08/11/19 23:31 79 18 96 Facial 30 08/11/19 22:11 99.1 08/11/19 21:43 118/61 08/11/19 21:00 Bi-pap 08/11/19 20:00 97 08/11/19 20:00 98.1 90 18 130/67 100 Nasal Cannula 2.0 28 08/11/19 19:22 100 Nasal Cannula 2.0 28 08/11/19 19:22 98 20 100 Nasal Cannula 2.0 97 24 100 08/11/19 16:00 89 08/11/19 16:00 99.1 94 20 118/61 93 Nasal Cannula 2.0 08/11/19 13:22 129/64 08/11/19 13:15 98 20 96 Nasal Cannula 1.0 103 22 93 08/11/19 12:00 98.1 88 20 129/64 95 Nasal Cannula 2.0 08/11/19 12:00 84 08/11/19 09:00 89 105/50 08/11/19 09:00 Bi-pap Intake and Output 08/11/19 08/12/19 19:00 07:00 Intake Total 360 ml Balance 360 ml Intake Oral 360 ml # Voids 4 3 # Bowel Movements 3 1 Objective WDWN NAD reduced breath sounds bilaterally without rhonchi or wheeze [id number] without MRG NABS nontender no HSM no CC minimal edema obese nonfocal Current Medications Medications (Trade) Dose Ordered Sig/Sera Route PRN Reason Start Time Stop Time Status Last Admin Dose Admin Acetaminophen (Tylenol) 650 mg Q4H PRN ORAL Pain Scale (6-10) 08/08/19 23:00 09/05/19 18:59 08/11/19 21:41 Anastrozole (Arimidex) 1 mg DAILY ORAL 08/09/19 09:00 09/06/19 08:59 08/11/19 09:45 Aspirin (ASA) 81 mg DAILY ORAL 08/09/19 09:00 09/06/19 08:59 08/11/19 09:46 Atorvastatin Calcium (Lipitor) 20 mg BEDTIME ORAL 08/10/19 21:00 09/08/19 20:59 08/11/19 21:43 Dextrose (Dextrose 50%) 25 ml Q30M PRN IV Hypoglycemia 08/08/19 23:00 09/05/19 18:59 Dextrose (Dextrose 50%) 50 ml Q30M PRN IV Hypoglycemia 08/08/19 23:00 09/05/19 18:59 Diltiazem HCl (Cardizem CD) 180 mg DAILY ORAL 08/09/19 09:00 09/08/19 08:59 08/10/19 09:26 Docusate Sodium (Colace) 100 mg EVERY 12 HOURS ORAL 08/09/19 09:00 09/06/19 08:59 08/11/19 21:43 Doxycycline Monohydrate (Doxycycline Monohydrate) 100 mg EVERY 12 HOURS ORAL 08/09/19 09:00 08/14/19 20:59 08/11/19 21:42 Furosemide (Lasix) 40 mg DAILY ORAL 08/12/19 09:00 09/11/19 08:59 Hydralazine HCl (Apresoline) 25 mg EVERY 8 HOURS ORAL 08/09/19 06:00 09/05/19 21:59 08/12/19 06:12 Hydralazine HCl (Apresoline) 25 mg Q6HR PRN ORAL SBP above 150or DBP above 95 08/09/19 00:30 09/08/19 00:29 08/09/19 00:47 Hydroxyzine HCl (Atarax) 25 mg TIDPRN PRN ORAL For Anxiety 08/09/19 08:00 09/06/19 07:59 08/11/19 21:42 Insulin Aspart (NovoLOG) BEFORE MEALS AND HS SUBQ 08/09/19 06:30 09/05/19 20:59 08/12/19 06:14 Ipratropium Leslie (Atrovent) 500 mcg Q4H PRN HHN Shortness of Breath 08/08/19 23:15 08/12/19 15:14 08/12/19 04:13 Levalbuterol HCl (Xopenex) 0.625 mg Q6HRT HHN 08/09/19 01:00 08/12/19 18:59 08/12/19 08:09 Loratadine (Claritin 10mg) 10 mg DAILY ORAL 08/09/19 09:00 09/06/19 08:59 08/11/19 09:45 Lorazepam (Ativan 2mg/ml 1ml) 1 mg Q4H PRN IV For Anxiety 08/09/19 02:00 08/14/19 17:59 08/11/19 23:34 Magnesium Hydroxide (Mom) 30 ml Q8H PRN ORAL Constipation 08/09/19 04:15 09/07/19 20:14 Mirtazapine (Remeron) 7.5 mg BEDTIME PRN ORAL insomnia 08/09/19 21:00 09/06/19 18:59 Montelukast Sodium (Singulair) 10 mg QHS ORAL 08/09/19 21:00 09/05/19 20:59 08/11/19 21:43 Neomycin/ Polymyxin/ Bacitracin (Neosporin Oint 15gm) 1 applic EVERY 12 HOURS TOPIC 08/09/19 09:00 09/07/19 09:29 08/11/19 09:58 Ondansetron HCl (Zofran) 4 mg Q6H PRN IVP Nausea & Vomiting 08/09/19 01:00 09/05/19 18:59 Pantoprazole (Protonix) 40 mg ACBREAKFAST ORAL 08/09/19 06:30 09/05/19 23:29 08/12/19 06:12 Prednisone (predniSONE) 20 mg DAILY ORAL 08/11/19 09:00 09/10/19 08:59 08/11/19 09:46 Sertraline HCl (Zoloft) 100 mg QHS ORAL 08/09/19 21:00 09/05/19 20:59 08/11/19 21:41 Sildenafil Citrate (Revatio) 20 mg TWICE A DAY ORAL 08/09/19 09:00 09/05/19 23:29 08/11/19 17:20 Tramadol HCl (Ultram) 50 mg Q6H PRN ORAL For Pain 08/09/19 00:00 08/14/19 17:59 Froilan Caruso MD Aug 12, 2019 08:32
[2019-08-12] MEDS ORDERED: Furosemide 40mg tab ORAL SCH (09:00)
--- NOTE | 2019-08-12 11:57 | NUR ---
DISCHARGE PLANNING FAXED CLINICALS TO [facility] T: [phone] F: [phone]
[2019-08-12 12:00] VITALS: BP 156/72
--- NOTE | 2019-08-12 12:30 | NUR ---
NURSE NOTES: Left message to Tiffanie, patient's daughter regarding patient's discharging home and the daughter will need to pick the patient from the hospital. Awaiting for response.
--- NOTE | 2019-08-12 12:51 | NUR ---
NURSE NOTES: Patient notified that the daughter will pick her up around 1400. Will wait for update.
--- NOTE | 2019-08-12 13:50 | NUR ---
NURSE NOTES: Patient's discharged per Dr. Downey's order. Patient's in stable condition, no s/s of distress or SOB. Patient's belonging list went over with patient at bedside, signed by patient and nurse at bedside. Discharge instructions and discharge documents signed by patient and nurse also. patient monitor, IV removed; ID band discarded properly. Patient's discharged home, assisted by her daughter. Patient went home with her own clothes. Patient's off the floor at 1350 with charge nurse.
--- NOTE | 2019-08-13 00:30 | Progress Note ---
DATE: 08/12/2019 CARDIOLOGY PROGRESS NOTE SUBJECTIVE: The patient has less shortness of breath. She is stable off BiPAP during the day, but uses it at night. She has no swelling of her legs. OBJECTIVE: VITAL SIGNS: Blood pressure 156/72, pulse 84, respirations 20, and oxygen saturation 99% on 2 liters. LUNGS: Diminished breath sounds. No wheezing. LUNGS: Few coarse rhonchi. HEART: Regular rhythm and rate. Normal S1, S2 with a fourth heart sound. ABDOMEN: Soft. EXTREMITIES: No edema. IMPRESSION: 1. Acute bronchospasm and chronic obstructive pulmonary disease exacerbation have stabilized. 2. Severe pulmonary hypertension is being managed with her usual sildenafil therapy. 3. Acute diastolic congestive heart failure, now compensated and she is now on maintenance diuretic dose. 4. Hypertensive heart disease still with slight elevation of blood pressure parameters, on steroids. 5. Moderate protein calorie malnutrition. PLAN: 1. CPAP at home. 2. Continue maintenance cardiovascular regimen including diuretics. 3. Protein supplement. 4. Inhaled bronchodilators. 5. Avoid secondhand smoke. 6. Stable for outpatient followup although will require close monitoring in view of advanced lung disease. Werner Martinez M.D. DR: CHASITY JOB#: [id number] CC:
--- NOTE | 2019-08-13 01:15 | Progress Note ---
DATE: 08/12/2019 SUBJECTIVE: The patient is doing better. More interactive, cooperative. Less irritable. Withdrawn. . MENTAL STATUS EXAMINATION: Alert and oriented times self, place, and situation. Mood is neutral. Affect is flat. Thought process is concrete. Thought content, no suicidal, homicidal ideation. ASSESSMENT: 1. Major depressive disorder. 2. Anxiety disorder. PLAN: 1. The patient will be continued on current medications. 2. The patient was seen on 08/12/2019. Jayy Andino M.D. DR: PRIETO JOB#: [id number] CC:
--- NOTE | 2019-08-13 02:00 | Discharge Summary ---
DATE OF ADMISSION: 08/06/2019 DATE OF DISCHARGE: 08/12/2019 ADMISSION DIAGNOSES: 1. Respiratory failure. 2. Chronic obstructive pulmonary disease exacerbation. 3. Congestive heart failure exacerbation. 4. Hypertension. 5. History of breast cancer. 6. Pulmonary hypertension. DISCHARGE DIAGNOSES: 1. Respiratory failure. 2. Chronic obstructive pulmonary disease exacerbation. 3. Congestive heart failure exacerbation. 4. Hypertension. 5. History of breast cancer. 6. Pulmonary hypertension. HOSPITAL COURSE: The patient is a 59-year-old female, well known to me. She was admitted because of hypercapnic respiratory failure. She was placed on BiPAP. She received intravenous steroids and intravenous diuretics. She improved her CO2 levels and her blood gases also improved. She will go home with home health. She will continue on BiPAP. She has been instructed to continue taking all of the medications including her inhalers, which she has been noncompliant with. She will follow-up in 1 to 2 weeks in the office. DISCHARGE MEDICATIONS: Please see discharge medication list for discharge medications. DIET: A cardiac diabetic diet. ACTIVITIES: Ad-odilon. Floyd Downey M.D. DR: KATE JOB#: [id number] CC:
== END 2019-08-12 13:50 | disposition home health service (06) | DRG 291 ==
LOC: EMR 17:25 → 2W 18:45 → EDBEDREQ 18:59 → 2E 08-08 21:35
PROC: 5A09457 Assistance with Respiratory Ventilation, 24-96 Consecutive Hours, Continuous Positive Airway Pressure (ICD-10-PCS; principal; 2019-08-06)
DX: I11.0 Hypertensive heart disease with heart failure (principal); J18.9 Pneumonia, unspecified organism; J44.0 Chronic obstructive pulmonary disease with (acute) lower respiratory infection; E87.2 Acidosis; E44.0 Moderate protein-calorie malnutrition; J96.12 Chronic respiratory failure with hypercapnia; J96.11 Chronic respiratory failure with hypoxia; J44.1 Chronic obstructive pulmonary disease with (acute) exacerbation; I50.33 Acute on chronic diastolic (congestive) heart failure; Z88.1 Allergy status to other antibiotic agents; Z88.0 Allergy status to penicillin; Z88.8 Allergy status to other drugs, medicaments and biological substances; Z87.891 Personal history of nicotine dependence; I11.9 Hypertensive heart disease without heart failure; E66.9 Obesity, unspecified; M19.90 Unspecified osteoarthritis, unspecified site; F32.9 Major depressive disorder, single episode, unspecified; F41.9 Anxiety disorder, unspecified; F60.89 Other specific personality disorders; Z85.3 Personal history of malignant neoplasm of breast; Z90.11 Acquired absence of right breast and nipple; Z92.3 Personal history of irradiation; I27.20 Pulmonary hypertension, unspecified; E11.40 Type 2 diabetes mellitus with diabetic neuropathy, unspecified; E11.21 Type 2 diabetes mellitus with diabetic nephropathy; Z79.4 Long term (current) use of insulin
CPT/HCPCS: 36415; 36600; 71045; 80053; 82550; 82553; 82803; 82962; 83690; 83735; 83880; 84484; 85007; 85025; 85610; 85730; 93005; 94640; 94660; 94664; 96365; 96375; 99291; J1815

== ENCOUNTER 2020-09-18 12:17 | Inpatient (IN) | payer MEDICARE, MEDICAID ==
[~2020-09-18] VITALS: Ht 154.9 cm; Wt 95.3 kg
[~2020-09-18 12:17] MED LIST changes: +ACETAMINOPHEN500 M3 ORAL; +AMLODIPINE BESYL5 MG ORAL; +BREO ELLIPTA 11 EACH IH; +FUROSEMIDE40 MG ORAL; +HUMALOG100 UNIT/3 SUBQ; +HYDRALAZINE HCL50 MG ORAL; +LEVOFLOXACIN250 MG ORAL; +NYSTATIN100000 UN1 ORAL; +ONDANSETRON ODT4 MG BC; +SPIRIVA18 MCG INH; +ZOLOFT100 MG ORAL
[2020-09-18 12:30] VITALS: BP 141/92
[2020-09-18] MEDS ORDERED: Solu-MEDROL 125mg Inj IVP ONE (12:45)
--- NOTE | 2020-09-18 13:13 | Emergency Room Report ---
History of Present Illness General Chief Complaint: Dyspnea/Respdistress Source: Patient, Medical Record Present Illness HPI Disclaimer: Please note that this report is being documented using DRAGON technology. This can lead to erroneous entry secondary to incorrect interpretation by the dictating instrument. HPI: 60-year-old female history of COPD on baseline oxygen, obesity, hypertension, hyperlipidemia, breast cancer status post mastectomy presents for evaluation of shortness of breath and facial rash. Patient states her oxygen c oncentrator and nebulizer malfunction last night on been able to receive oxygen or breathing treatments. Seen at PMD office and referred to ER for COPD exacerbation and admission. Patient also has a rash over the face bilaterally without swelling. She has a history of facial aparicio but states there is new redness and discomfort. Believes she may have been exposed to some bug bites in her apartment. Otherwise denies fever or chills. Last tested negative for COVID-19 3 weeks ago. Denies nausea, vomiting, abdominal pain. PMH: COPD, cancer, obesity, hypertension, hyperlipidemia, diabetes PSH: Mastectomy Allergies: Amoxicillin, erythromycin, penicillin Social Hx: Former smoker quit 1.5 years ago Allergies: Coded Allergies: AMOXICILLIN (Verified Allergy, Mild, RASH HIVES, 09/29/13) ERYTHROMYCIN BASE (Unverified Allergy, Unknown, 10/13/17) IODINE (Verified Allergy, Unknown, 09/29/13) PENICILLINS (Verified Allergy, Unknown, RASH HIVES, 09/29/13) COVID-19 Screening Contact w/high risk pt: No Experienced COVID-19 symptoms?: Yes COVID-19 Testing performed FILM PAINTER: No Patient History Now: No Nursing Documentation-PMH Hx Cardiac Problems: Yes Hx Hypertension: No Hx Pacemaker: No Hx Asthma: Yes Hx COPD: Yes Hx Diabetes: Yes Hx Cancer: Yes Hx Gastrointestinal Problems: No Hx Dialysis: No Hx Neurological Problems: No Hx Cerebrovascular Accident: No Hx Transient Ischemic Attacks: No Hx Dementia: No Hx Alzheimer's Disease: No Hx Parkinson's Disease: No Hx Meningitis: No Hx Encephalitis: No Hx Seizures: No Hx Epilepsy: No Hx Multiple Sclerosis: No Hx Cerebral Palsy: No Hx Amyotrophic Lat Sclerosis: No Hx [place] Syndrome: No Hx Paralysis: No Hx Peripheral Neuropathy: No Hx Spinal Cord Injury: No Hx Head Trauma: No Hx Traumatic Brain Injury: No Hx Memory Loss: No Hx Concentration Difficulty: No Hx Speech Problem: No Hx Tremors: No Hx Vertigo: No Hx Dizziness: No Hx Syncope: No Hx Headaches: No Hx Aphasia: No Hx Dysphasia: No Hx Numbness: No Hx Weakness: No Hx Fatigue: No Hx Neurologic Surgery: No Hx Brain Shunt: No Review of Systems All Other Systems: negative except mentioned in HPI Physical Exam Vital Signs Date Time Temp Pulse Resp B/P (MAP) Pulse Ox O2 Delivery O2 Flow Rate FiO2 09/18/20 12:20 98.2 75 18 141/92 (108) 97 Nasal Cannula 3.0 General: Awake and alert, no acute distress HEENT: NC/AT. EOMI. PERRLA. Darkened facial skin consistent with prior aparicio. Mild erythema without significant edema over the maxillary, nasal bridge, eyelids. No ulcerations or skin breakdown. Cardiovascular: RRR. S1 and S2 normal. No murmur appreciated Resp: Increased work of breathing. Intermittent cough. Inspiratory and expiratory wheezes. No crackles. Abdomen: Abdomen is soft, nondistended. Nontender Skin: Erythematous superficial skin changes over the face bilaterally. MSK: Normal tone and bulk. Moving all extremities. No obvious deformity. Neuro: Awake and alert. Mentating appropriately. Procedures Critical Care Time Critical Care Time Total critical care time: Approximately 31 minutes Due to a high probability of clinically significant, life threatening det erioration, the patient required the highest level of preparedness to intervene emergently and I personally spent this critical care time directly and personally managing the patient. This critical care time included obtaining a history, examining the patient, pulse oximetry, ordering and reviewing studies, ordering treatments, evaluating response to treatment and updating management plan as needed, frequent reassessment and discussion with other providers as well as arranging for ultimate disposition. This critical to care time was performed to assess and manage the high probability of life-threatening deterioration that could result in multiorgan failure. This critical care time is separate from the separately billable procedures and treating other patients. Medical Decision Making Diagnostic Impression: Primary Impression: Erysipelas Additional Impression: COPD exacerbation ER Course This is 60-year-old female presenting with shortness of breath and facial rash. Concern for COPD exacerbation, bronchitis, pneumonia, COVID-19 infection, erysipelas, facial cellulitis, sinusitis among others. Patient has inspiratory and expiratory wheezes on exam. Will start breathing treatments, IV Solu-Medrol given. EKG is nonischemic. No obvious infiltrate on chest x-ray. Patient given ceftriaxone for facial erysipelas. Blood gas shows normal pH slight elevation in PCO2. Improving with breathing treatments. No white count. Patient will be admitted to [facility], Dr. Downey. Laboratory Tests Test 09/18/20 13:15 White Blood Count 9.8 K/UL (4.8-10.8) Red Blood Count 3.69 M/UL (4.20-5.40) L Hemoglobin 10.4 G/DL (12.0-16.0) L Hematocrit 32.1 % (37.0-47.0) L Mean Corpuscular Volume 87 FL (80-99) Mean Corpuscular Hemoglobin 28.1 PG (27.0-31.0) Mean Corpuscular Hemoglobin Concent 32.3 G/DL (32.0-36.0) Red Cell Distribution Width 12.5 % (11.6-14.8) Platelet Count 335 K/UL (150-450) Mean Platelet Volume 8.2 FL (6.5-10.1) Neutrophils (%) (Auto) 64.1 % (45.0-75.0) Lymphocytes (%) (Auto) 27.9 % (20.0-45.0) Monocytes (%) (Auto) 5.2 % (1.0-10.0) Eosinophils (%) (Auto) 0.8 % (0.0-3.0) Basophils (%) (Auto) 2.0 % (0.0-2.0) Arterial Blood pH 7.388 (7.350-7.450) Arterial Blood Partial Pressure CO2 49.8 mmHg (35.0-45.0) H Arterial Blood Partial Pressure O2 89.7 mmHg (75.0-100.0) Arterial Blood HCO3 29.3 mmol/L (22.0-26.0) H Arterial Blood Oxygen Saturation 96.0 % (95-100) Arterial Blood Base Excess 3.7 (-2-2) H Rico Test Positive Sodium Level 139 MMOL/L (136-145) Potassium Level 3.9 MMOL/L (3.5-5.1) Chloride Level 102 MMOL/L (98-107) Carbon Dioxide Level 31 MMOL/L (21-32) Anion Gap 6 mmol/L (5-15) Blood Urea Nitrogen 11 mg/dL (7-18) Creatinine 0.8 MG/DL (0.55-1.30) Estimated Glomerular Filtration Rate > 60 mL/min (>60) Glucose Level 112 MG/DL (74-106) H Calcium Level 8.9 MG/DL (8.5-10.1) Total Bilirubin 0.3 MG/DL (0.2-1.0) Aspartate Amino Transferase (AST) 15 U/L (15-37) Alanine Aminotransferase (ALT) 16 U/L (12-78) Alkaline Phosphatase 71 U/L (46-116) Troponin I 0.000 ng/mL (0.000-0.056) Pro-B-Type Natriuretic Peptide 305 pg/mL (0-125) H Total Protein 7.2 G/DL (6.4-8.2) Albumin 3.3 G/DL (3.4-5.0) L Globulin 3.9 g/dL Albumin/Globulin Ratio 0.8 (1.0-2.7) L EKG Diagnostic Results Troponin ordered: Yes When was troponin ordered?: Sep 18, 2020 EKG Time: 13:04 Rate: normal Rhythm: NSR ST Segments: no acute changes Other Impression Sinus rhythm, normal axis, normal intervals, no ST segment changes. Rhythm Strip Diag. Results Rhythm Strip Time: 13:04 EP Interpretation: yes Rate: 80s Rhythm: NSR, no PVC's, no ectopy Chest X-Ray Diagnostic Results Chest X-Ray Diagnostic Results : Chest X-Ray Ordered: Yes # of Views/Limited/Complete: 1 View Indication: Shortness of Breath EP Interpretation: Yes Interpretation: no consolidation, no effusion, no pneumothorax, other - Cardiomegaly Impression: Other - Cardiomegaly Electronically Signed by: Electronically signed by Dr. Herbert Lim MD Last Vital Signs Date Time Temp Pulse Resp B/P (MAP) Pulse Ox O2 Delivery O2 Flow Rate FiO2 09/18/20 12:20 98.2 75 18 141/92 (108) 97 Nasal Cannula 3.0 Disposition: ADMITTED INPATIENT Condition: Serious Herbert Lim MD Sep 18, 2020 13:13
[2020-09-18] MEDS ORDERED: Levalbuterol Inh UD 1.25mg/0.5ml HHN ONE (13:15)
[2020-09-18] MEDS ORDERED: cefTRIAXone 1 GM in NS 55 ML IVPB ONE (13:15)
--- NOTE | 2020-09-18 13:20 | Diagnostic Imaging Report ---
Indication: Shortness of breath Technique: One view of the chest Comparison: 08/06/2019 Findings: Well-defined masslike opacity at the right base consistent with the diaphragmatic hernia seen on prior CT previous unchanged compared to the prior exam. Cardiomegaly stable. Mediastinal contours are sharp. There are atherosclerotic calcifications in the aortic arch. There is mild vascular/interstitial prominence. No dense consolidation. No appreciable pleural effusion. No pneumothorax. Bones are demineralized and there is mild scoliosis. There are degenerative changes in the spine. No appreciable acute osseous abnormality. IMPRESSION: Cardiomegaly with mild pulmonary vascular congestion/early interstitial edema. No focal consolidation.
[2020-09-18 13:41] LABS: EOSINOPHILS % (AUTO) 0.8 % (0.0-3.0); HEMATOCRIT 32.1 % (37.0-47.0); HEMOGLOBIN 10.4 G/DL (12.0-16.0); LYMPHOCYTES % (AUTO) 27.9 % (20.0-45.0); MEAN CORPUSCULAR VOLUME 87 FL (80-99); MONOCYTES % (AUTO) 5.2 % (1.0-10.0); NEUTROPHILS % (AUTO) 64.1 % (45.0-75.0); PLATELET COUNT 335 K/UL (150-450); RED BLOOD COUNT 3.69 M/UL (4.20-5.40); RED CELL DISTRIBUTION WIDTH 12.5 % (11.6-14.8); WHITE BLOOD COUNT 9.8 K/UL (4.8-10.8)
[2020-09-18 13:50] LABS: ANION GAP 6 mmol/L (5-15); BLOOD UREA NITROGEN 11 mg/dL (7-18); CALCIUM 8.9 MG/DL (8.5-10.1); CARBON DIOXIDE 31 MMOL/L (21-32); CHLORIDE 102 MMOL/L (98-107); CREATININE 0.8 MG/DL (0.55-1.30); POTASSIUM 3.9 MMOL/L (3.5-5.1); SODIUM 139 MMOL/L (136-145)
[2020-09-18 14:00] LABS: ALANINE AMINOTRANSFERASE 16 U/L (12-78); ALBUMIN 3.3 G/DL (3.4-5.0); ALBUMIN/GLOBULIN RATIO 0.8 (1.0-2.7); ALKALINE PHOSPHATASE 71 U/L (46-116); ASPARTATE AMINO TRANSFERASE 15 U/L (15-37); BILIRUBIN,TOTAL 0.3 MG/DL (0.2-1.0)
[2020-09-18 14:30] VITALS: BP 116/90
[2020-09-18] MEDS ORDERED: Acetaminophen 500mg (ES) tab ORAL ONE (16:00)
[2020-09-18 16:30] VITALS: BP 125/95
[2020-09-18] MEDS: Levalbuterol Inh UD 1.25mg/0.5ml HHN SCH ×2 (16:38→16:40)
[2020-09-18] MEDS ORDERED: Acetaminophen 500mg (ES) tab ORAL PRN (19:00)
[2020-09-18] MEDS ORDERED: Vancomycin 1.25gm/250ml Premix IVPB ONE (21:00)
[2020-09-18] MEDS: Flonase Nasal Inhaler 16gm NASAL SCH (22:07)
[2020-09-18] MEDS: NovoLOG Insulin Flexpen SUBQ SCH (22:09)
[2020-09-18] MEDS: Heparin 5000 units/ml inj SUBQ SCH (22:15)
[2020-09-18] MEDS: Miconazole Vag Cr 45gm Tube (100mg per applicator) VAGIN SCH (22:30)
[2020-09-18] MEDS: Solu-MEDROL 40mg Inj IVP SCH (22:31)
[2020-09-18] MEDS: Nystatin Susp 500,000 units/5ml ORAL SCH (22:31)
[2020-09-18] MEDS: HydrOXYzine 50mg tab ORAL SCH (23:51)
[2020-09-19] MEDS: Levalbuterol Inh UD 1.25mg/0.5ml HHN SCH ×6 (04:00→23:12)
[2020-09-19] MEDS: HydrOXYzine 50mg tab ORAL SCH (05:39)
[2020-09-19] MEDS: Solu-MEDROL 40mg Inj IVP SCH ×3 (05:39→21:01)
[2020-09-19] MEDS: NovoLOG Insulin Flexpen SUBQ SCH ×4 (05:43→21:27)
--- NOTE | 2020-09-19 07:15 | History and Physical Report ---
DATE OF ADMISSION: 09/18/2020 CHIEF COMPLAINT: Shortness of breath and facial rash. HISTORY OF PRESENT ILLNESS: The patient is a 60-year-old female with a history of diabetes, hypertension, breast cancer, congestive heart failure, who presented with complaints of facial rash and shortness of breath. She was noted to be wheezing significantly and have a worsening facial rash for several days. She presented to the emergency room where she was diagnosed with cellulitis of the face as well as COPD exacerbation. She is now admitted for further evaluation and care. She denies any fevers or chills. She has had no cough. Denies any ill contacts. PAST MEDICAL HISTORY: As above. PAST SURGICAL HISTORY: Includes mastectomy. CURRENT MEDICATIONS: Reconciled and reviewed. ALLERGIES: Include amoxicillin, erythromycin, iodine, and penicillin. FAMILY HISTORY: Noncontributory. SOCIAL HISTORY: There is no known history of alcohol. The patient has a history of substance abuse as well as a heavy history of smoking. REVIEW OF SYSTEMS: GENERAL: No fevers or chills. HEENT: No headaches or visual changes. CARDIOPULMONARY: No chest pain. Positive shortness of breath and wheezing. GASTROINTESTINAL: No nausea or vomiting. No diarrhea. GENITOURINARY: No urgency or frequency. MUSCULOSKELETAL: No joint pain or swelling. NEUROLOGIC: No history of seizures. PHYSICAL EXAMINATION: VITAL SIGNS: Temperature was 98, pulse 107, respirations 18, and blood pressure 155/85. GENERAL: The patient is well developed, in no apparent distress. HEAD: Normocephalic and atraumatic. Sclerae anicteric. Oropharynx clear. NECK: Supple. HEART: Regular rate and rhythm. LUNGS: Diminished breath sounds. Scattered wheezes. ABDOMEN: Soft, nontender, and nondistended. EXTREMITIES: Without clubbing, cyanosis, or edema. SKIN: There is a hyperpigmented erythematous rash over the cheeks. LABORATORY DATA: Sodium 139, potassium 3.9. A1c was 7. White count was 10. ASSESSMENT: This is a 60-year-old female, admitted with complaints of COPD exacerbation and facial cellulitis. PLAN: IV steroids. IV antibiotics. Respiratory treatments [id number]. Pulmonary, ID, Cardiology consultations to be obtained. We will monitor Accu-Cheks while on steroids. Continue outpatient cardiac regimen. Floyd Downey M.D. DR: BOBBI JOB#: [id number] CC:
[2020-09-19 08:00] VITALS: BP 147/72
--- NOTE | 2020-09-19 08:32 | Consultation ---
Consult Note Consult Note 60-year-old female presents with a facial rash and shortness of breath. She was noted to be wheezing and had chest tightness and shortness of breath and also with facial rash for several days. She presented to the emergency room where she was diagnosed with cellulitis of the face as well as COPD exacerbation. She is now admitted for further evaluation and care. She denies any fevers or chills. She has had no cough. Denies any ill contacts. PAST MEDICAL HISTORY: diabetes, hypertension, breast cancer, congestive heart failure, COPD, breast Cancer, chronic hypoxemia PAST SURGICAL HISTORY: Includes mastectomy. CURRENT MEDICATIONS/ ALLERGIES: reviewed. FAMILY HISTORY: Noncontributory. SOCIAL HISTORY: no alcohol. The patient has a history of substance abuse as well as a heavy history of smoking. retired REVIEW OF SYSTEMS: all 10 points reviewed and discussed PHYSICAL EXAMINATION: WDWN NAD reduced breath sounds bilaterally with some wheeze [id number] without MRG NABS nontender no HSM no CCE nonfocal facial rash on oxygen Laboratory Tests Test 09/18/20 13:15 09/18/20 21:53 09/19/20 05:38 White Blood Count 9.8 K/UL (4.8-10.8) Red Blood Count 3.69 M/UL (4.20-5.40) L Hemoglobin 10.4 G/DL (12.0-16.0) L Hematocrit 32.1 % (37.0-47.0) L Mean Corpuscular Volume 87 FL (80-99) Mean Corpuscular Hemoglobin 28.1 PG (27.0-31.0) Mean Corpuscular Hemoglobin Concent 32.3 G/DL (32.0-36.0) Red Cell Distribution Width 12.5 % (11.6-14.8) Platelet Count 335 K/UL (150-450) Mean Platelet Volume 8.2 FL (6.5-10.1) Neutrophils (%) (Auto) 64.1 % (45.0-75.0) Lymphocytes (%) (Auto) 27.9 % (20.0-45.0) Monocytes (%) (Auto) 5.2 % (1.0-10.0) Eosinophils (%) (Auto) 0.8 % (0.0-3.0) Basophils (%) (Auto) 2.0 % (0.0-2.0) Arterial Blood pH 7.388 (7.350-7.450) Arterial Blood Partial Pressure CO2 49.8 mmHg (35.0-45.0) H Arterial Blood Partial Pressure O2 89.7 mmHg (75.0-100.0) Arterial Blood HCO3 29.3 mmol/L (22.0-26.0) H Arterial Blood Oxygen Saturation 96.0 % (95-100) Arterial Blood Base Excess 3.7 (-2-2) H Rico Test Positive Sodium Level 139 MMOL/L (136-145) Potassium Level 3.9 MMOL/L (3.5-5.1) Chloride Level 102 MMOL/L (98-107) Carbon Dioxide Level 31 MMOL/L (21-32) Anion Gap 6 mmol/L (5-15) Blood Urea Nitrogen 11 mg/dL (7-18) Creatinine 0.8 MG/DL (0.55-1.30) Estimat Glomerular Filtration Rate > 60 mL/min (>60) Glucose Level 112 MG/DL (74-106) H Hemoglobin A1c 7.0 % (4.3-6.0) H Calcium Level 8.9 MG/DL (8.5-10.1) Total Bilirubin 0.3 MG/DL (0.2-1.0) Aspartate Amino Transf (AST/SGOT) 15 U/L (15-37) Alanine Aminotransferase (ALT/SGPT) 16 U/L (12-78) Alkaline Phosphatase 71 U/L (46-116) Troponin I 0.000 ng/mL (0.000-0.056) Pro-B-Type Natriuretic Peptide 305 pg/mL (0-125) H Total Protein 7.2 G/DL (6.4-8.2) Albumin 3.3 G/DL (3.4-5.0) L Globulin 3.9 g/dL Albumin/Globulin Ratio 0.8 (1.0-2.7) L POC Whole Blood Glucose 271 MG/DL (74-106) H 281 MG/DL (74-106) H ASSESSMENT: Chronic respiratory failure COPD exacerbation and facial cellulitis. diabetes, hypertension, chronic hypoxemia chronic debility PLAN: care noted IV antibiotics IV steroids monitor blood sugars facial care respiratory fpc meds supportive care oxygen therapy prognosis guarded impression, plan, and exam edited and reviewed in detail care discussed with Froilan Clarke MD Sep 19, 2020 08:32
--- NOTE | 2020-09-19 08:32 | Pulmonology Progress Note ---
Subjective Allergies: Coded Allergies: AMOXICILLIN (Verified Allergy, Mild, RASH HIVES, 09/29/13) ERYTHROMYCIN BASE (Unverified Allergy, Unknown, 10/13/17) IODINE (Verified Allergy, Unknown, 09/29/13) PENICILLINS (Verified Allergy, Unknown, RASH HIVES, 09/29/13) Objective Last 24 Hour Vital Signs Date Time Temp Pulse Resp B/P (MAP) Pulse Ox O2 Delivery O2 Flow Rate FiO2 09/19/20 08:21 96 16 100 Nasal Cannula 3.0 32 103 18 100 09/19/20 05:19 96 18 100 35 09/19/20 04:57 96 16 100 Nasal Cannula 3.0 32 107 18 97 09/19/20 04:56 107 18 98 Nasal Cannula 3.0 32 09/19/20 04:00 106 09/19/20 01:32 100 Nasal Cannula 3.0 32 09/19/20 00:00 105 09/18/20 23:02 Nasal Cannula 3.0 09/18/20 20:48 102 18 98 Nasal Cannula 3.0 32 09/18/20 20:00 111 09/18/20 17:55 98.3 102 22 155/85 100 Nasal Cannula 3.0 09/18/20 17:25 96 18 100 Nasal Cannula 4.0 36 92 18 100 09/18/20 16:30 98.6 78 18 125/95 98 Nasal Cannula 3.0 36 09/18/20 14:30 98.6 100 20 116/90 96 Nasal Cannula 3.0 09/18/20 14:16 86 20 100 Nasal Cannula 4.0 36 95 22 98 09/18/20 12:30 98.4 76 20 141/92 97 Nasal Cannula 3.0 09/18/20 12:30 76 16 Nasal Cannula 3.0 09/18/20 12:20 98.2 75 18 141/92 (108) 97 Nasal Cannula 3.0 Intake and Output 09/18/20 09/19/20 19:00 07:00 Intake Total 50 ml Output Total 150 ml Balance -100 ml Intake IV Total 50 ml Output Urine Total 150 ml Microbiology Date/Time Source Procedure Growth Status 09/18/20 14:18 Nasopharynx SARS-CoV-2 RdRp Gene Assay - Final Complete Laboratory Tests 09/18/20 13:15: White Blood Count 9.8, Red Blood Count 3.69L, Hemoglobin 10.4L, Hematocrit 32.1L , Mean Corpuscular Volume 87, Mean Corpuscular Hemoglobin 28.1, Mean Corpuscular Hemoglobin Concent 32.3, Red Cell Distribution Width 12.5, Platelet Count 335, Mean Platelet Volume 8.2, Neutrophils (%) (Auto) 64.1, Lymphocytes (%) (Auto) 27.9, Monocytes (%) (Auto) 5.2, Eosinophils (%) (Auto) 0.8, Basophils (%) (Auto) 2.0, Arterial Blood pH 7.388, Arterial Blood Partial Pressure CO2 49.8H, Arterial Blood Partial Pressure O2 89.7, Arterial Blood HCO3 29.3H, Arterial Blood Oxygen Saturation 96.0, Arterial Blood Base Excess 3.7H, Rico Test Positive, Sodium Level 139, Potassium Level 3.9, Chloride Level 102, Carbon Dioxide Level 31, Anion Gap 6, Blood Urea Nitrogen 11, Creatinine 0.8, Estimat Glomerular Filtration Rate > 60, Glucose Level 112H, Hemoglobin A1c 7.0H, Calcium Level 8.9, Total Bilirubin 0.3, Aspartate Amino Transf (AST/SGOT) 15, Alanine Aminotransferase (ALT/SGPT) 16, Alkaline Phosphatase 71, Troponin I 0.000, Pro-B-Type Natriuretic Peptide 305H, Total Protein 7.2, Albumin 3.3L, Globulin 3.9, Albumin/Globulin Ratio 0.8L 09/18/20 21:53: POC Whole Blood Glucose 271H 09/19/20 05:38: POC Whole Blood Glucose 281H Current Medications Medications (Trade) Dose Ordered Sig/Sera Route PRN Reason Start Time Stop Time Status Last Admin Dose Admin Acetaminophen (Tylenol) 650 mg Q4H PRN ORAL Mild Pain (Pain Scale 1-3) 09/18/20 23:45 10/18/20 23:44 09/18/20 23:51 Amlodipine Besylate (Norvasc) 5 mg DAILY ORAL 09/19/20 09:00 10/19/20 08:59 Anastrozole (Arimidex) 1 mg DAILY ORAL 09/19/20 09:00 10/19/20 08:59 Dextrose (Dextrose 50%) 25 ml Q30M PRN IV Hypoglycemia 09/18/20 19:00 12/17/20 18:59 Dextrose (Dextrose 50%) 50 ml Q30M PRN IV Hypoglycemia 09/18/20 19:00 12/17/20 18:59 Fluticasone Propionate (Flonase) 1 spray QHS NASAL 09/18/20 21:00 10/18/20 20:59 09/18/20 22:07 Heparin Sodium (Porcine) (Heparin 5000 units/ml) 5,000 units EVERY 12 HOURS SUBQ 09/18/20 21:00 11/02/20 20:59 09/18/20 22:15 Hydroxyzine HCl (Atarax) 50 mg Q4H PRN ORAL Itching 09/19/20 06:15 10/19/20 06:14 Insulin Aspart (NovoLOG) BEFORE MEALS AND HS SUBQ 09/18/20 21:00 12/17/20 20:59 09/19/20 05:43 Levalbuterol HCl (Xopenex) 1.25 mg Q4HRT HHN 09/19/20 04:00 09/24/20 03:59 09/19/20 04:00 Methylprednisolone Sodium Succinate (Solu-MEDROL) 40 mg EVERY 8 HOURS IVP 09/18/20 22:00 12/17/20 21:59 09/19/20 05:39 Miconazole Nitrate (Monistat) 1 applic BEDTIME VAGIN 09/18/20 21:00 09/24/20 21:01 09/18/20 22:30 Nystatin (Nystatin) 4 ml FOUR TIMES A DAY ORAL 09/18/20 21:00 09/25/20 20:59 09/18/20 22:31 Ondansetron HCl (Zofran) 4 mg Q6H PRN IVP Nausea & Vomiting 09/18/20 19:00 10/18/20 18:59 Pantoprazole (Protonix) 40 mg DAILY ORAL 09/19/20 09:00 10/19/20 08:59 Sertraline HCl (Zoloft) 100 mg DAILY ORAL 09/19/20 09:00 10/19/20 08:59 Temazepam (Restoril) 15 mg HSPRN PRN ORAL Insomnia 09/19/20 04:00 09/26/20 03:59 09/19/20 05:39 Vancomycin HCl (Vanco pharmacy to dose) 1 ea DAILY PRN MISC Per rx protocol 09/18/20 19:00 1/6/21 18:59 Vancomycin HCl 1 gm/Dextrose 275 ml @ 183.708 mls/hr Q12HR IVPB 09/19/20 09:00 09/24/20 08:59 Froilan Caruso MD Sep 19, 2020 08:32
[2020-09-19] MEDS: Sertraline 100mg tab ORAL SCH (09:48)
[2020-09-19] MEDS: Anastrazole 1mg tab ORAL SCH (09:48)
[2020-09-19] MEDS: Nystatin Susp 500,000 units/5ml ORAL SCH ×4 (09:48→21:01)
[2020-09-19] MEDS: Heparin 5000 units/ml inj SUBQ SCH ×2 (09:50→21:03)
[2020-09-19] MEDS: Vancomycin 1gm/D5W 275ml IVPB SCH ×4 (09:54→21:26)
[2020-09-19] MEDS: HydrOXYzine 50mg tab ORAL PRN ×3 (10:56→21:01)
[2020-09-19 12:00] VITALS: BP 159/75
[2020-09-19 16:00] VITALS: BP 168/84
[2020-09-19 20:00] VITALS: BP 144/84
[2020-09-19] MEDS: Flonase Nasal Inhaler 16gm NASAL SCH (21:01)
[2020-09-19] MEDS: Miconazole Vag Cr 45gm Tube (100mg per applicator) VAGIN SCH (21:28)
--- NOTE | 2020-09-19 23:12 | Psychiatry Consultation ---
Psychiatry Consultation Psychiatry Consultation Chief Complaint: Dyspnea/Respdistress History of Present Illness: 60-year-old female with a history of breast cancer, diabetes, hypertension, congestive heart failure who has been admitted to the hospital for facial rash and shortness of breath. Patient is well known to me from previous admission and the [facility]. Patient is severely anxious. She was having panic attack-like symptoms. She has multiple complaints and stated that she wanted to be transferred to another hospital. Patient is denying any suicidal or homicidal ideation. she has difficulty sleeping and would only like to take melatonin. PAST PSYCHIATRIC HISTORY: Major depressive disorder, anxiety disorder. PAST MEDICAL HISTORY: COPD, obesity, diabetes, hypertension, hyperlipidemia. ALLERGIES: amox,erythromycin, iodine, penicillin. SUBSTANCE ABUSE HISTORY: No known history of illicit drug use or alcohol. MENTAL STATUS EXAMINATION: Patient is alert and oriented times self, place, and situation. Mood is anxious. Affect is blunted, congruent with mood. Thought process is concrete. Thought content, there is no suicidal or homicidal ideation. Cognition is intact. Insight and judgment is fair. ASSESSMENT: [place] I Major depressive disorder. Anxiety disorder. [place] II Deferred. [place] III COPD. [place] IV Low. [place] V 25. PLAN: 1. Continue Zoloft. 2. Seroquel was discontinued. 3. The patient would like only melatonin. 4. Provide the patient with reality orientation and supportive therapy. Allergies: Coded Allergies: AMOXICILLIN (Verified Allergy, Mild, RASH HIVES, 09/29/13) ERYTHROMYCIN BASE (Unverified Allergy, Unknown, 10/13/17) IODINE (Verified Allergy, Unknown, 09/29/13) PENICILLINS (Verified Allergy, Unknown, RASH HIVES, 09/29/13) Medication History Scheduled Amlodipine Besylate* (Amlodipine Besylate*), 5 MG ORAL DAILY, (Reported) Anastrozole* (Arimidex*), 1 MG PO DAILY, (Reported) Fluticasone Propionate (Fluticasone Propionate), 1 SPRAYS NASAL QHS, (Reported) Fluticasone/Vilanterol (Breo Ellipta 100-25 Mcg INH), 1 EACH IH DAILY, (Reported) Furosemide* (Lasix*), 40 MG ORAL DAILY, (Reported) Hydralazine Hcl* (Hydralazine Hcl*), 50 MG ORAL EVERY 8 HOURS, (Reported) Hydroxyzine Hcl (Hydroxyzine Hcl), 50 MG PO Q6HR, (Reported) Insulin Lispro (Humalog), 20 UNITS SUBQ TWICE A DAY, (Reported) Levalbuterol Hcl (Xopenex*), 1.25 MG HHN Q4H, (Reported) Levofloxacin (Levofloxacin*), 250 MG ORAL DAILY, (Reported) Nystatin* (Nystatin*), 4 ML ORAL FOUR TIMES A DAY, (Reported) Pantoprazole* (Pantoprazole*), 40 MG ORAL DAILY, (Reported) Potassium Chloride (Klor-Con M10), 10 MEQ PO TID, (Reported) Sertraline Hcl* (Zoloft*), 100 MG ORAL DAILY, (Reported) Umeclidinium [place] (Incruse Ellipta), 1 PUFF IH DAILY, (Reported) Scheduled PRN Acetaminophen* (Acetaminophen Extra Strength*), 500 MG ORAL Q4HR PRN for For Pain, (Reported) Ondansetron Odt* (Zofran Odt*), 4 MG BC EVERY 4 HOURS PRN for Nausea & Vomiting, (Reported) Tramadol Hcl* (Ultram*), 50 MG ORAL Q6H PRN for For Pain, (Reported) Objective Data Height (Feet): 5 Height (Inches): 1.00 Weight (Pounds): 210 Jayy Andino MD Sep 19, 2020 23:12
[2020-09-20] VITALS: BP 152/77
--- NOTE | 2020-09-20 02:50 | Cardiology Progress Note ---
Subjective DATE OF SERVICE: Sep 19, 2020 Still has congestion and SOB. No CP. Anxious at times. Covid 19 swab negative Monitor: sinus with sinus tachycardia and rare PAC's Objective Last 24 Hour Vital Signs Date Time Temp Pulse Resp B/P (MAP) Pulse Ox O2 Delivery O2 Flow Rate FiO2 09/20/20 00:00 98.0 99 22 152/77 (102) 98 09/20/20 00:00 96 09/19/20 23:20 96 18 100 Nasal Cannula 3.0 32 92 18 98 09/19/20 21:00 Nasal Cannula 3.0 09/19/20 20:00 104 09/19/20 20:00 98.2 103 20 144/84 (104) 98 09/19/20 19:38 105 18 100 Nasal Cannula 3.0 32 102 18 98 09/19/20 19:38 99 Nasal Cannula 3.0 32 09/19/20 16:32 111 18 100 Nasal Cannula 3.0 32 101 18 98 09/19/20 16:00 98.2 110 20 168/84 (112) 99 09/19/20 16:00 121 09/19/20 12:00 98.2 95 22 159/75 (103) 99 09/19/20 12:00 105 09/19/20 11:57 103 18 100 Nasal Cannula 3.0 32 105 18 96 09/19/20 11:26 98.0 09/19/20 09:48 102 147/72 09/19/20 09:00 Nasal Cannula 3.0 09/19/20 08:39 102 18 100 35 09/19/20 08:21 96 16 100 Nasal Cannula 3.0 32 103 18 100 09/19/20 08:00 109 09/19/20 08:00 98.0 98 25 147/72 (97) 100 09/19/20 07:04 100 Nasal Cannula 3.0 32 09/19/20 05:19 96 18 100 35 09/19/20 04:57 96 16 100 Nasal Cannula 3.0 32 107 18 97 09/19/20 04:56 107 18 98 Nasal Cannula 3.0 32 09/19/20 04:00 106 HEENT: normal ENT inspection RHYTHM: NSR, ST, PACs LUNGS: expiratory wheezing, diminished breath sounds CARDIAC: normal rate, regular rhythm, normal S1 and S2, gallop/S4 ABDOMEN: normal bowel sounds, non tender, soft, no organomegaly, other - obese EXTREMITIES: +1 edema Laboratory Tests Test 09/19/20 05:38 09/19/20 21:23 POC Whole Blood Glucose 281 MG/DL (74-106) H 241 MG/DL (74-106) H Microbiology Date/Time Source Procedure Growth Status 09/18/20 14:18 Nasopharynx SARS-CoV-2 RdRp Gene Assay - Final Complete Assessment/Plan Assessment/Plan COPD exacerbation Acute bronchitis Covid 19 PCR negative Ac/chr diastolic CHF Hx breast CA Paroxysmal atrial ectopy Hypertensive heart disease Sinus tachycardia Steroids Anti-coagulation Abx Diuresis Titrate antiHTN regimen Cardiac monitoring Limit beta agonist use Werner Martinez MD Sep 20, 2020 02:50
[2020-09-20] MEDS: Levalbuterol Inh UD 1.25mg/0.5ml HHN SCH ×6 (03:00→23:20)
[2020-09-20 04:00] VITALS: BP 158/88
[2020-09-20] MEDS: HydrOXYzine 50mg tab ORAL PRN (06:34)
[2020-09-20] MEDS: Solu-MEDROL 40mg Inj IVP SCH ×3 (06:34→20:37)
[2020-09-20] MEDS: NovoLOG Insulin Flexpen SUBQ SCH ×4 (06:36→20:37)
[2020-09-20 08:00] VITALS: BP 142/94
[2020-09-20] MEDS: Nystatin Susp 500,000 units/5ml ORAL SCH ×4 (09:31→20:35)
[2020-09-20] MEDS: Sertraline 100mg tab ORAL SCH (09:32)
[2020-09-20] MEDS: Anastrazole 1mg tab ORAL SCH (09:32)
[2020-09-20] MEDS: Heparin 5000 units/ml inj SUBQ SCH ×2 (09:33→20:51)
[2020-09-20] MEDS: Vancomycin 1gm/D5W 275ml IVPB SCH ×4 (09:35→20:37)
--- NOTE | 2020-09-20 11:17 | Pulmonology Progress Note ---
Subjective Allergies: Coded Allergies: AMOXICILLIN (Verified Allergy, Mild, RASH HIVES, 09/29/13) ERYTHROMYCIN BASE (Unverified Allergy, Unknown, 10/13/17) IODINE (Verified Allergy, Unknown, 09/29/13) PENICILLINS (Verified Allergy, Unknown, RASH HIVES, 09/29/13) Subjective care noted some sob dry cough on oxygen Objective Last 24 Hour Vital Signs Date Time Temp Pulse Resp B/P (MAP) Pulse Ox O2 Delivery O2 Flow Rate FiO2 09/20/20 11:06 100 18 100 Nasal Cannula 3.0 32 98 18 100 09/20/20 09:32 100 142/94 09/20/20 09:00 Nasal Cannula 3.0 09/20/20 08:00 106 09/20/20 08:00 98.2 100 20 142/94 (110) 98 09/20/20 07:23 98 Nasal Cannula 3.0 32 09/20/20 07:23 106 20 100 Nasal Cannula 3.0 32 102 18 98 09/20/20 06:34 177/95 09/20/20 04:00 98.0 91 22 158/88 (111) 98 09/20/20 04:00 90 09/20/20 02:15 101 15 100 35 09/20/20 00:00 98.0 99 22 152/77 (102) 98 09/20/20 00:00 96 09/19/20 23:20 96 18 100 Nasal Cannula 3.0 32 92 18 98 09/19/20 21:00 Nasal Cannula 3.0 09/19/20 20:00 104 09/19/20 20:00 98.2 103 20 144/84 (104) 98 09/19/20 19:38 105 18 100 Nasal Cannula 3.0 32 102 18 98 09/19/20 19:38 99 Nasal Cannula 3.0 32 09/19/20 16:32 111 18 100 Nasal Cannula 3.0 32 101 18 98 09/19/20 16:00 98.2 110 20 168/84 (112) 99 09/19/20 16:00 121 09/19/20 12:00 98.2 95 22 159/75 (103) 99 09/19/20 12:00 105 09/19/20 11:57 103 18 100 Nasal Cannula 3.0 32 105 18 96 09/19/20 11:26 98.0 Intake and Output 09/19/20 09/20/20 19:00 07:00 # Bowel Movements 1 1 Objective WDWN NAD reduced breath sounds bilaterally without rhonchi or wheeze [id number] without MRG NABS nontender no HSM no CCE nonfocal dyspneic Microbiology Date/Time Source Procedure Growth Status 09/18/20 14:18 Nasopharynx SARS-CoV-2 RdRp Gene Assay - Final Complete Laboratory Tests 09/19/20 21:23: POC Whole Blood Glucose 241H 09/20/20 06:29: POC Whole Blood Glucose 236H 09/20/20 08:45: Vancomycin Level Trough [Pending] Current Medications Medications (Trade) Dose Ordered Sig/Sera Route PRN Reason Start Time Stop Time Status Last Admin Dose Admin Acetaminophen (Tylenol) 650 mg Q4H PRN ORAL Mild Pain (Pain Scale 1-3) 09/18/20 23:45 10/18/20 23:44 09/20/20 00:54 Amlodipine Besylate (Norvasc) 5 mg DAILY ORAL 09/19/20 09:00 10/19/20 08:59 09/20/20 09:32 Anastrozole (Arimidex) 1 mg DAILY ORAL 09/19/20 09:00 10/19/20 08:59 09/20/20 09:32 Clonidine HCl (Catapres Tab) 0.1 mg Q4H PRN ORAL SBP > 160 09/19/20 17:15 12/18/20 17:14 09/20/20 06:34 Dextrose (Dextrose 50%) 25 ml Q30M PRN IV Hypoglycemia 09/18/20 19:00 12/17/20 18:59 Dextrose (Dextrose 50%) 50 ml Q30M PRN IV Hypoglycemia 09/18/20 19:00 12/17/20 18:59 Fluticasone Propionate (Flonase) 1 spray QHS NASAL 09/18/20 21:00 10/18/20 20:59 09/19/20 21:01 Furosemide (Lasix) 20 mg DAILY IV 09/20/20 09:00 10/20/20 08:59 09/20/20 09:31 Heparin Sodium (Porcine) (Heparin 5000 units/ml) 5,000 units EVERY 12 HOURS SUBQ 09/18/20 21:00 11/02/20 20:59 09/20/20 09:33 Hydroxyzine HCl (Atarax) 50 mg Q4H PRN ORAL Itching 09/19/20 06:15 10/19/20 06:14 09/20/20 06:34 Insulin Aspart (NovoLOG) BEFORE MEALS AND HS SUBQ 09/18/20 21:00 12/17/20 20:59 09/20/20 06:36 Levalbuterol HCl (Xopenex) 1.25 mg Q4HRT HHN 09/19/20 04:00 09/24/20 03:59 09/20/20 11:06 Methylprednisolone Sodium Succinate (Solu-MEDROL) 40 mg EVERY 8 HOURS IVP 09/18/20 22:00 12/17/20 21:59 09/20/20 06:34 Miconazole Nitrate (Monistat) 1 applic BEDTIME VAGIN 09/18/20 21:00 09/24/20 21:01 09/19/20 21:28 Nystatin (Nystatin) 4 ml FOUR TIMES A DAY ORAL 09/18/20 21:00 09/25/20 20:59 09/20/20 09:31 Ondansetron HCl (Zofran) 4 mg Q6H PRN IVP Nausea & Vomiting 09/18/20 19:00 10/18/20 18:59 Pantoprazole (Protonix) 40 mg DAILY ORAL 09/19/20 09:00 10/19/20 08:59 09/20/20 09:32 Potassium Chloride (K-Dur) 20 meq DAILY ORAL 09/20/20 09:00 12/19/20 08:59 09/20/20 09:31 Quetiapine Fumarate (SEROqueL) 25 mg Q6H PRN ORAL For Anxiety 09/19/20 23:15 11/03/20 23:14 09/20/20 01:11 Sertraline HCl (Zoloft) 100 mg DAILY ORAL 09/19/20 09:00 10/19/20 08:59 09/20/20 09:32 Temazepam (Restoril) 15 mg HSPRN PRN ORAL Insomnia 09/19/20 04:00 09/26/20 03:59 09/19/20 21:01 Vancomycin HCl (Vanco pharmacy to dose) 1 ea DAILY PRN MISC Per rx protocol 09/18/20 19:00 10/18/20 18:59 Vancomycin HCl 1 gm/Dextrose 275 ml @ 183.708 mls/hr Q12HR IVPB 09/19/20 09:00 09/24/20 08:59 09/20/20 09:35 Assessment/Plan Assessment/Plan ASSESSMENT: Chronic respiratory failure COPD exacerbation and facial cellulitis. diabetes, hypertension, chronic hypoxemia chronic debility PLAN: care noted IV antibiotics IV steroids as is monitor blood sugars facial care respiratory care as is home meds supportive care oxygen therapy and monitor ABG PRN prognosis guarded impression, plan, and exam edited and reviewed in detail care discussed with Froilan Clarke MD Sep 20, 2020 11:17
[2020-09-20 12:00] VITALS: BP 140/83
[2020-09-20 16:00] VITALS: BP 135/62
--- NOTE | 2020-09-20 16:34 | General Progress Note ---
Subjective ROS Limited/Unobtainable: No Constitutional: Reports: malaise, weakness HEENT: Reports: no symptoms Cardiovascular: Reports: no symptoms Respiratory: Reports: cough, shortness of breath Gastrointestinal/Abdominal: Reports: no symptoms Genitourinary: Reports: no symptoms Neurologic/Psychiatric: Reports: anxiety, depressed, emotional problems Endocrine: Reports: no symptoms Hematologic/Lymphatic: Reports: no symptoms Allergies: Coded Allergies: AMOXICILLIN (Verified Allergy, Mild, RASH HIVES, 09/29/13) ERYTHROMYCIN BASE (Unverified Allergy, Unknown, 10/13/17) IODINE (Verified Allergy, Unknown, 09/29/13) PENICILLINS (Verified Allergy, Unknown, RASH HIVES, 09/29/13) All Systems: reviewed and negative except above Subjective Patient with multiple complaints. Complains of burning on her face. Complains of shortness of breath and wheezing. Complains of dysuria and pelvic pain. No fevers or chills. Currently on IV antibiotics and IV steroids. Objective Last 24 Hour Vital Signs Date Time Temp Pulse Resp B/P (MAP) Pulse Ox O2 Delivery O2 Flow Rate FiO2 09/20/20 16:09 94 18 100 Nasal Cannula 3.0 32 92 18 98 09/20/20 15:24 94 09/20/20 12:00 98.1 100 20 140/83 (102) 95 09/20/20 12:00 99 09/20/20 11:06 100 18 100 Nasal Cannula 3.0 32 98 18 100 09/20/20 09:32 100 142/94 09/20/20 09:00 Nasal Cannula 3.0 09/20/20 08:00 106 09/20/20 08:00 98.2 100 20 142/94 (110) 98 09/20/20 07:23 98 Nasal Cannula 3.0 32 09/20/20 07:23 106 20 100 Nasal Cannula 3.0 32 102 18 98 09/20/20 06:34 177/95 09/20/20 04:00 98.0 91 22 158/88 (111) 98 09/20/20 04:00 90 09/20/20 02:15 101 15 100 35 09/20/20 00:00 98.0 99 22 152/77 (102) 98 09/20/20 00:00 96 09/19/20 23:20 96 18 100 Nasal Cannula 3.0 32 92 18 98 09/19/20 21:00 Nasal Cannula 3.0 09/19/20 20:00 104 09/19/20 20:00 98.2 103 20 144/84 (104) 98 09/19/20 19:38 105 18 100 Nasal Cannula 3.0 32 102 18 98 09/19/20 19:38 99 Nasal Cannula 3.0 32 09/19/20 16:32 111 18 100 Nasal Cannula 3.0 32 101 18 98 Intake and Output 09/19/20 09/20/20 19:00 07:00 # Bowel Movements 1 1 Laboratory Tests 09/19/20 21:23: POC Whole Blood Glucose 241H 09/20/20 06:29: POC Whole Blood Glucose 236H 09/20/20 08:45: Vancomycin Level Trough 9.7 09/20/20 11:26: POC Whole Blood Glucose [Pending] Height (Feet): 5 Height (Inches): 1.00 Weight (Pounds): 210 General Appearance: WD/WN, alert, mild distress EENT: PERRL/EOMI, normal ENT inspection Neck: non-tender, normal alignment Cardiovascular: normal peripheral pulses, normal rate, regular rhythm Respiratory/Chest: chest wall non-tender, lungs clear, no respiratory distress, no accessory muscle use, expiratory wheezing Abdomen: normal bowel sounds, non tender, soft, no organomegaly Edema: no edema noted Arm (L), no edema noted Arm (R) 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 II-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 grossly normal, no motor/sensory deficits, alert, oriented x 3, responsive, normal mood/affect Assessment/Plan Problem List: (1) Facial cellulitis ICD Codes: L03.211 - Cellulitis of face SNOMED: 836440771 (2) COPD exacerbation ICD Codes: J44.1 - COPD exacerbation SNOMED: 085886964 (3) Toxic metabolic encephalopathy ICD Codes: G92 - Toxic encephalopathy SNOMED: 391464589 (4) Hypertension, malignant ICD Codes: I10 - Hypertension, malignant SNOMED: 44727804 (5) Diabetes mellitus ICD Codes: E11.9 - Diabetes mellitus SNOMED: 92266509 Status: stable, progressing Assessment/Plan: wean iv steroids resp rx o2 iv abx Monitor chest x-ray Monitor oxygen saturations Accu-Cheks with sliding scale As needed IV diuretic therapy IV antibiotics for facial cellulitis Anxiolytics and psych treatment Uomoto,Floyd M. MD Sep 20, 2020 16:34
[2020-09-20 20:00] VITALS: BP 147/88
[2020-09-20] MEDS: Vitamin D 1000 units Tab ORAL SCH (20:37)
[2020-09-20] MEDS: Flonase Nasal Inhaler 16gm NASAL SCH (20:38)
[2020-09-20] MEDS: Miconazole Vag Cr 45gm Tube (100mg per applicator) VAGIN SCH (20:38)
[2020-09-20] MEDS: Nitrofurantoin Macrocrystal 50mg cap ORAL SCH (22:09)
--- NOTE | 2020-09-20 23:44 | Cardiology Progress Note ---
Subjective DATE OF SERVICE: Sep 20, 2020 Still with congestion and SOB. No CP. Anxious at times with manic features. Covid 19 swab negative Monitor: sinus with sinus tachycardia and rare PAC's Objective Last 24 Hour Vital Signs Date Time Temp Pulse Resp B/P (MAP) Pulse Ox O2 Delivery O2 Flow Rate FiO2 09/20/20 23:20 103 18 100 Nasal Cannula 3.0 32 101 18 98 09/20/20 21:00 Nasal Cannula 3.0 09/20/20 20:00 98 09/20/20 20:00 98.0 98 21 147/88 (107) 100 09/20/20 19:37 94 18 98 Nasal Cannula 3.0 32 96 18 91 09/20/20 19:37 92 Nasal Cannula 3.0 32 09/20/20 16:09 94 18 100 Nasal Cannula 3.0 32 92 18 98 09/20/20 16:00 97.9 69 20 135/62 (86) 100 09/20/20 15:24 94 09/20/20 12:00 98.1 100 20 140/83 (102) 95 09/20/20 12:00 99 09/20/20 11:06 100 18 100 Nasal Cannula 3.0 32 98 18 100 09/20/20 09:32 100 142/94 09/20/20 09:00 Nasal Cannula 3.0 09/20/20 08:00 106 09/20/20 08:00 98.2 100 20 142/94 (110) 98 09/20/20 07:23 98 Nasal Cannula 3.0 32 09/20/20 07:23 106 20 100 Nasal Cannula 3.0 32 102 18 98 09/20/20 06:34 177/95 09/20/20 04:00 98.0 91 22 158/88 (111) 98 09/20/20 04:00 90 09/20/20 02:15 101 15 100 35 09/20/20 00:00 98.0 99 22 152/77 (102) 98 09/20/20 00:00 96 ROS: unchanged from 09/18/20 HEENT: normal ENT inspection RHYTHM: NSR, ST, PACs LUNGS: expiratory wheezing, diminished breath sounds CARDIAC: normal rate, regular rhythm, normal S1 and S2, gallop/S4 ABDOMEN: normal bowel sounds, non tender, soft, no organomegaly, other - obese EXTREMITIES: +1 edema Laboratory Tests Test 09/20/20 06:29 09/20/20 08:45 09/20/20 11:26 09/20/20 16:52 POC Whole Blood Glucose 236 MG/DL (74-106) H Pending 306 MG/DL (74-106) H Vancomycin Level Trough 9.7 ug/mL (5.0-12.0) Microbiology Date/Time Source Procedure Growth Status 09/18/20 14:18 Nasopharynx SARS-CoV-2 RdRp Gene Assay - Final Complete Assessment/Plan Assessment/Plan COPD exacerbation with hypoxia Acute bronchitis Covid 19 PCR negative Ac/chr diastolic CHF Hx breast CA Paroxysmal atrial ectopy Hypertensive heart disease Sinus tachycardia Steroids O2 suppl Anti-coagulation Abx Diuresis based on clinical parameters; trend BNP. Titrate antiHTN regimen Cardiac monitoring Limit beta agonist use Werner Martinez MD Sep 20, 2020 23:44
[2020-09-21] VITALS: BP 151/91
--- NOTE | 2020-09-21 00:15 | Consultation ---
DATE OF CONSULTATION: 09/20/2020 CONSULTING PHYSICIAN: Jayy Andino MD HISTORY OF PRESENT ILLNESS: This is a 60-year-old female with a history of breast cancer, diabetes, hypertension, congestive heart failure who has been admitted to the hospital for facial rash and shortness of breath. Patient is well known to me from previous admission and the shelter she was residing at. Patient is severely anxious. She was having panic attack-like symptoms. She has multiple complaints and stated that she wanted to be transferred to another hospital. Patient is denying any suicidal or homicidal ideation. she has difficulty sleeping and would only like to take melatonin. PAST PSYCHIATRIC HISTORY: Major depressive disorder, anxiety disorder. PAST MEDICAL HISTORY: COPD, obesity, diabetes, hypertension, hyperlipidemia. ALLERGIES: erythromycin, iodine, penicillin. SUBSTANCE ABUSE HISTORY: No known history of illicit drug use or alcohol. MENTAL STATUS EXAMINATION: Patient is alert and oriented times self, place, and situation. Mood is anxious. Affect is blunted, congruent with mood. Thought process is concrete. Thought content, there is no suicidal or homicidal ideation. Cognition is intact. Insight and judgment is fair. ASSESSMENT: [place] I Major depressive disorder. Anxiety disorder. [place] II Deferred. [place] III COPD. [place] IV Low. [place] V 25. PLAN: 1. Continue Zoloft. 2. Seroquel was discontinued. 3. The patient would like only melatonin. 4. Provide the patient with reality orientation and supportive therapy. Jayy Andino M.D. DR: ELAYNE JOB#: [id number] CC: SENTHIL
--- NOTE | 2020-09-21 00:31 | Consultation ---
DATE OF CONSULTATION: 09/18/2020 CARDIOLOGY CONSULTATION CONSULTING PHYSICIAN: Wenrer Martinez MD. REQUESTING PHYSICIAN: Floyd Downey MD. REASON FOR CONSULTATION: Acute congestive heart failure in the setting of COPD. HISTORY OF PRESENT ILLNESS: The patient is a 60-year-old female with hypertensive heart disease and diastolic congestive heart failure. She also has a history of significant COPD. She has been a long-term smoker quitting only recently, intermittently. She presented to the hospital with facial rash and increasing shortness of breath. She was noted to have signs of bronchospasm and acute congestive heart failure. I have been asked to assist with cardiovascular care. PAST MEDICAL HISTORY: 1. Breast cancer with right mastectomy. 2. Osteoarthritis. 3. Osteoporosis. 4. Degenerative disk disease. 5. Type 2 diabetes mellitus. 6. COPD. 7. Hypertension with hypertensive heart disease. 8. Diastolic dysfunction with congestive heart failure. 9. Chronic venous insufficiency. 10. Diabetic neuropathy. SOCIAL HISTORY: Recently quit smoking, has a 50-pack year history, social alcohol. History of hydrocodone dependence. ALLERGIES: Include amoxicillin, erythromycin, penicillin and iodine. MEDICATIONS: Reviewed and reconciled. REVIEW OF SYSTEMS: Outpatient echocardiogram has revealed normal ejection fraction concentric hypertrophy and a diastolic relaxation abnormality. There is no history of sustained atrial or ventricular arrhythmias. There is no history of flow-limiting coronary artery disease. She has had myocardial perfusion scan in the past supported this diagnosis. Her diabetes is managed with oral therapy. There is no history of seizure or stroke. She has been on anti-lipid drugs in the past. She has a history of COPD and has been on steroids frequently years. She is unaware of any history of COVID-19 exposure. Her COVID-19 swab was negative. PHYSICAL EXAMINATION: VITAL SIGNS: Afebrile, blood pressure 155/85, pulse 107, respiratory rate 18 to 20. HEENT: Conjunctivae pink. Arcus senilis. Oropharynx clear. NECK: Obese. Difficult to assess jugular venous pressure. No accessory muscle use. LUNGS: Diminished breath sounds. Expiratory wheezes. Few rales. CARDIAC: Regular rhythm. Rapid rate. Normal S1, S2 with a fourth heart sound. ABDOMEN: Slightly obese, soft and nontender with no ascites. EXTREMITIES: No edema. SKIN: With erythema over the face. LABORATORY AND DIAGNOSTIC DATA: EKG, sinus tachycardia. Chest x-ray with pulmonary venous congestion and cardiomegaly. Laboratories reviewed. IMPRESSION: 1. Acute on chronic diastolic congestive heart failure. 2. COPD with acute exacerbation. 3. Bronchospasm and hypoxia secondary sinus tachycardia. 4. Facial cellulitis. 5. Hypertensive heart disease. 6. Chronic venous insufficiency. 7. Type 2 diabetes mellitus with neuropathy. PLAN: 1. Inhaled bronchodilators. 2. Intravenous steroids. 3. Cardiac monitoring. 4. Cautious diuresis. 5. Titrate antihypertensive and anti-failure regimen. 6. DVT prophylaxis. 7. Skin care. Werner Martinez M.D. DR: FAREED JOB#: [id number] CC:
[2020-09-21] MEDS: Levalbuterol Inh UD 1.25mg/0.5ml HHN SCH ×6 (03:00→23:29)
[2020-09-21 04:00] VITALS: BP 161/80
[2020-09-21] MEDS: HydrOXYzine 50mg tab ORAL PRN ×3 (04:12→16:57)
[2020-09-21] MEDS: Nitrofurantoin Macrocrystal 50mg cap ORAL SCH ×3 (06:30→21:46)
[2020-09-21] MEDS: NovoLOG Insulin Flexpen SUBQ SCH ×4 (06:31→20:52)
[2020-09-21 07:33] LABS: BASOPHILS % (AUTO) 0.8 % (0.0-2.0); EOSINOPHILS % (AUTO) 0.1 % (0.0-3.0); HEMATOCRIT 28.8 % (37.0-47.0); HEMOGLOBIN 9.4 G/DL (12.0-16.0); LYMPHOCYTES % (AUTO) 17.7 % (20.0-45.0); MEAN CORPUSCULAR VOLUME 87 FL (80-99); MONOCYTES % (AUTO) 6.8 % (1.0-10.0); NEUTROPHILS % (AUTO) 74.7 % (45.0-75.0); PLATELET COUNT 306 K/UL (150-450); RED BLOOD COUNT 3.31 M/UL (4.20-5.40); RED CELL DISTRIBUTION WIDTH 13.6 % (11.6-14.8); WHITE BLOOD COUNT 10.7 K/UL (4.8-10.8)
[2020-09-21 07:48] LABS: ANION GAP 5 mmol/L (5-15); BLOOD UREA NITROGEN 27 mg/dL (7-18); CALCIUM 8.8 MG/DL (8.5-10.1); CARBON DIOXIDE 33 MMOL/L (21-32); CHLORIDE 101 MMOL/L (98-107); POTASSIUM 4.1 MMOL/L (3.5-5.1); SODIUM 139 MMOL/L (136-145)
[2020-09-21 08:00] VITALS: BP 116/84
--- NOTE | 2020-09-21 08:14 | Pulmonology Progress Note ---
Subjective ROS Limited/Unobtainable: No Allergies: Coded Allergies: AMOXICILLIN (Verified Allergy, Mild, RASH HIVES, 09/29/13) ERYTHROMYCIN BASE (Unverified Allergy, Unknown, 10/13/17) IODINE (Verified Allergy, Unknown, 09/29/13) PENICILLINS (Verified Allergy, Unknown, RASH HIVES, 09/29/13) All Systems: reviewed and negative except above Subjective care noted some sob dry cough on oxygen on diuretics skin care noted Objective Last 24 Hour Vital Signs Date Time Temp Pulse Resp B/P (MAP) Pulse Ox O2 Delivery O2 Flow Rate FiO2 09/21/20 04:12 161/95 09/21/20 04:00 96 09/21/20 04:00 97.9 99 24 161/80 (107) 98 09/21/20 03:05 98 14 100 35 09/21/20 03:03 98 18 100 Bi-Pap 35 90 18 96 09/21/20 00:00 98.2 95 23 151/91 (111) 98 09/21/20 00:00 88 09/20/20 23:20 103 18 100 Nasal Cannula 3.0 32 101 18 98 09/20/20 21:00 Nasal Cannula 3.0 09/20/20 20:00 98 09/20/20 20:00 98.0 98 21 147/88 (107) 100 09/20/20 19:37 94 18 98 Nasal Cannula 3.0 32 96 18 91 09/20/20 19:37 92 Nasal Cannula 3.0 32 09/20/20 16:09 94 18 100 Nasal Cannula 3.0 32 92 18 98 09/20/20 16:00 97.9 69 20 135/62 (86) 100 09/20/20 15:24 94 09/20/20 12:00 98.1 100 20 140/83 (102) 95 09/20/20 12:00 99 09/20/20 11:06 100 18 100 Nasal Cannula 3.0 32 98 18 100 09/20/20 09:32 100 142/94 09/20/20 09:00 Nasal Cannula 3.0 Intake and Output 09/20/20 09/21/20 19:00 07:00 Intake Total 275.000 ml Balance 275.000 ml Intake IV Total 275.000 ml Objective WDWN NAD reduced breath sounds bilaterally without rhonchi or wheeze [id number] without MRG NABS nontender no HSM no CCE nonfocal dyspneic Microbiology Date/Time Source Procedure Growth Status 09/19/20 19:30 Urine,Clean Catch Urine Culture - Preliminary Resulted 09/18/20 14:18 Nasopharynx SARS-CoV-2 RdRp Gene Assay - Final Complete Laboratory Tests 09/20/20 08:45: Vancomycin Level Trough 9.7 09/20/20 11:26: POC Whole Blood Glucose [Pending] 09/20/20 16:52: POC Whole Blood Glucose 306H 09/21/20 05:53: White Blood Count 10.7, Red Blood Count 3.31L, Hemoglobin 9.4L, Hematocrit 28.8L , Mean Corpuscular Volume 87, Mean Corpuscular Hemoglobin 28.5, Mean Corpuscular Hemoglobin Concent 32.9, Red Cell Distribution Width 13.6, Platelet Count 306, Mean Platelet Volume 7.4, Neutrophils (%) (Auto) 74.7, Lymphocytes (%) (Auto) 17.7L, Monocytes (%) (Auto) 6.8, Eosinophils (%) (Auto) 0.1, Basophils (%) (Auto) 0.8, Sodium Level 139, Potassium Level 4.1, Chloride Level 101, Carbon Dioxide Level 33H, Anion Gap 5, Blood Urea Nitrogen 27H, Creatinine 1.0, Estimat Glomerular Filtration Rate > 60, Glucose Level 398H, Calcium Level 8.8 09/21/20 06:28: POC Whole Blood Glucose 356H Current Medications Medications (Trade) Dose Ordered Sig/Sera Route PRN Reason Start Time Stop Time Status Last Admin Dose Admin Acetaminophen (Tylenol) 650 mg Q4H PRN ORAL Mild Pain (Pain Scale 1-3) 09/18/20 23:45 10/18/20 23:44 09/21/20 04:13 Amlodipine Besylate (Norvasc) 5 mg DAILY ORAL 09/19/20 09:00 10/19/20 08:59 09/20/20 09:32 Anastrozole (Arimidex) 1 mg DAILY ORAL 09/19/20 09:00 10/19/20 08:59 09/20/20 09:32 Ascorbic Acid (Vitamin C) 500 mg DAILY ORAL 09/21/20 09:00 10/21/20 08:59 Clonidine HCl (Catapres Tab) 0.1 mg Q4H PRN ORAL SBP > 160 09/19/20 17:15 12/18/20 17:14 09/21/20 04:12 Dextrose (Dextrose 50%) 25 ml Q30M PRN IV Hypoglycemia 09/18/20 19:00 12/17/20 18:59 Dextrose (Dextrose 50%) 50 ml Q30M PRN IV Hypoglycemia 09/18/20 19:00 12/17/20 18:59 Fluticasone Propionate (Flonase) 1 spray QHS NASAL 09/18/20 21:00 10/18/20 20:59 09/20/20 20:38 Furosemide (Lasix) 20 mg DAILY IV 09/20/20 09:00 10/20/20 08:59 09/20/20 09:31 Heparin Sodium (Porcine) (Heparin 5000 units/ml) 5,000 units EVERY 12 HOURS SUBQ 09/18/20 21:00 11/02/20 20:59 09/20/20 20:51 Hydroxyzine HCl (Atarax) 50 mg Q4H PRN ORAL Itching 09/19/20 06:15 10/19/20 06:14 09/21/20 04:12 Insulin Aspart (NovoLOG) BEFORE MEALS AND HS SUBQ 09/18/20 21:00 12/17/20 20:59 09/21/20 06:31 Levalbuterol HCl (Xopenex) 1.25 mg Q4HRT HHN 09/19/20 04:00 09/24/20 03:59 09/21/20 07:31 Lorazepam (Ativan) 1 mg Q6H PRN ORAL For Anxiety 09/20/20 15:15 09/27/20 15:14 Methylprednisolone Sodium Succinate (Solu-MEDROL) 40 mg EVERY 12 HOURS IVP 09/20/20 21:00 12/17/20 20:59 09/20/20 20:37 Miconazole Nitrate (Monistat) 1 applic BEDTIME VAGIN 09/18/20 21:00 09/24/20 21:01 09/20/20 20:38 Nitrofurantoin (Macrodantin) 100 mg Q8HR ORAL 09/20/20 22:00 09/27/20 21:59 09/21/20 06:30 Nystatin (Nystatin) 4 ml FOUR TIMES A DAY ORAL 09/18/20 21:00 09/25/20 20:59 09/20/20 20:35 Ondansetron HCl (Zofran) 4 mg Q6H PRN IVP Nausea & Vomiting 09/18/20 19:00 10/18/20 18:59 09/21/20 04:12 Pantoprazole (Protonix) 40 mg DAILY ORAL 09/19/20 09:00 10/19/20 08:59 09/20/20 09:32 Potassium Chloride (K-Dur) 20 meq DAILY ORAL 09/20/20 09:00 12/19/20 08:59 09/20/20 09:31 Sertraline HCl (Zoloft) 100 mg DAILY ORAL 09/19/20 09:00 10/19/20 08:59 09/20/20 09:32 Temazepam (Restoril) 15 mg HSPRN PRN ORAL Insomnia 09/19/20 04:00 09/26/20 03:59 09/19/20 21:01 Vancomycin HCl (Vanco pharmacy to dose) 1 ea DAILY PRN MISC Per rx protocol 09/18/20 19:00 10/18/20 18:59 Vancomycin HCl 1 gm/Dextrose 275 ml @ 183.708 mls/hr Q12HR IVPB 09/19/20 09:00 09/24/20 08:59 09/20/20 20:37 Vitamin B Complex (Vitamin B Complex) 1 tab DAILY ORAL 09/21/20 09:00 12/20/20 08:59 Vitamin D (Vitamin D) 1,000 intlu DAILY ORAL 09/20/20 19:15 10/20/20 19:14 09/20/20 20:37 Assessment/Plan Assessment/Plan ASSESSMENT: Chronic respiratory failure COPD exacerbation and facial cellulitis. diabetes, hypertension, chronic hypoxemia chronic debility PLAN: care noted IV antibiotics IV steroids as is monitor blood sugars facial care respiratory care as is home meds supportive care oxygen therapy and monitor ABG PRN prognosis guarded impression, plan, and exam edited and reviewed in detail care discussed with Froilan Clarke MD Sep 21, 2020 08:14
[2020-09-21] MEDS: Solu-MEDROL 40mg Inj IVP SCH ×3 (09:00→20:43)
[2020-09-21] MEDS: Vancomycin 1gm/D5W 275ml IVPB SCH ×4 (09:00→20:43)
[2020-09-21] MEDS: Nystatin Susp 500,000 units/5ml ORAL SCH ×4 (10:09→20:41)
[2020-09-21] MEDS: Anastrazole 1mg tab ORAL SCH (10:13)
[2020-09-21] MEDS: Heparin 5000 units/ml inj SUBQ SCH ×2 (10:13→20:42)
[2020-09-21] MEDS: Vitamin D 1000 units Tab ORAL SCH (10:17)
[2020-09-21] MEDS: Vitamin B Complex Tab ORAL SCH (10:17)
[2020-09-21] MEDS: Sertraline 100mg tab ORAL SCH (10:17)
[2020-09-21] MEDS: Ascorbic Acid 500mg tab ORAL SCH (10:18)
[2020-09-21 12:00] VITALS: BP 122/74
--- NOTE | 2020-09-21 15:00 | General Progress Note ---
Subjective ROS Limited/Unobtainable: No Constitutional: Reports: malaise, weakness HEENT: Reports: no symptoms Cardiovascular: Reports: no symptoms Respiratory: Reports: cough, shortness of breath Gastrointestinal/Abdominal: Reports: no symptoms Genitourinary: Reports: no symptoms Neurologic/Psychiatric: Reports: anxiety, emotional problems Endocrine: Reports: no symptoms Hematologic/Lymphatic: Reports: anemia Allergies: Coded Allergies: AMOXICILLIN (Verified Allergy, Mild, RASH HIVES, 09/29/13) ERYTHROMYCIN BASE (Unverified Allergy, Unknown, 10/13/17) IODINE (Verified Allergy, Unknown, 09/29/13) PENICILLINS (Verified Allergy, Unknown, RASH HIVES, 09/29/13) All Systems: reviewed and negative except above Subjective no new complaints. no fever or chills. decreased sob. no cp. facial rash/cellulitis improving. no nausea or vomiting. c/o severe shoulder and hand pain. Objective Last 24 Hour Vital Signs Date Time Temp Pulse Resp B/P (MAP) Pulse Ox O2 Delivery O2 Flow Rate FiO2 09/21/20 12:00 98.1 102 20 122/74 (90) 93 09/21/20 12:00 101 09/21/20 10:46 98.0 09/21/20 10:17 104 116/84 09/21/20 09:00 Nasal Cannula 3.0 09/21/20 08:00 105 09/21/20 08:00 98.0 104 20 116/84 (95) 93 09/21/20 04:12 161/95 09/21/20 04:00 96 09/21/20 04:00 97.9 99 24 161/80 (107) 98 09/21/20 03:05 98 14 100 35 09/21/20 03:03 98 18 100 Bi-Pap 35 90 18 96 09/21/20 00:00 98.2 95 23 151/91 (111) 98 09/21/20 00:00 88 09/20/20 23:20 103 18 100 Nasal Cannula 3.0 32 101 18 98 09/20/20 21:00 Nasal Cannula 3.0 09/20/20 20:00 98 09/20/20 20:00 98.0 98 21 147/88 (107) 100 09/20/20 19:37 94 18 98 Nasal Cannula 3.0 32 96 18 91 09/20/20 19:37 92 Nasal Cannula 3.0 32 09/20/20 16:09 94 18 100 Nasal Cannula 3.0 32 92 18 98 09/20/20 16:00 97.9 69 20 135/62 (86) 100 09/20/20 15:24 94 Intake and Output 09/20/20 09/21/20 19:00 07:00 Intake Total 275.000 ml Balance 275.000 ml Intake IV Total 275.000 ml Laboratory Tests 09/20/20 16:52: POC Whole Blood Glucose 306H 09/21/20 05:53: White Blood Count 10.7, Red Blood Count 3.31L, Hemoglobin 9.4L, Hematocrit 28.8L , Mean Corpuscular Volume 87, Mean Corpuscular Hemoglobin 28.5, Mean Corpuscular Hemoglobin Concent 32.9, Red Cell Distribution Width 13.6, Platelet Count 306, Mean Platelet Volume 7.4, Neutrophils (%) (Auto) 74.7, Lymphocytes (%) (Auto) 17.7L, Monocytes (%) (Auto) 6.8, Eosinophils (%) (Auto) 0.1, Basophils (%) (Auto) 0.8, Sodium Level 139, Potassium Level 4.1, Chloride Level 101, Carbon Dioxide Level 33H, Anion Gap 5, Blood Urea Nitrogen 27H, Creatinine 1.0, Estimat Glomerular Filtration Rate > 60, Glucose Level 398H, Calcium Level 8.8 09/21/20 06:28: POC Whole Blood Glucose 356H 09/21/20 12:01: POC Whole Blood Glucose 88 Height (Feet): 5 Height (Inches): 1.00 Weight (Pounds): 210 Objective General Appearance: WD/WN, alert, mild distress EENT: PERRL/EOMI, normal ENT inspection Neck: non-tender, normal alignment Cardiovascular: normal peripheral pulses, normal rate, regular rhythm Respiratory/Chest: chest wall non-tender, lungs clear, no respiratory distress, no accessory muscle use, expiratory wheezing Abdomen: normal bowel sounds, non tender, soft, no organomegaly Edema: no edema noted Arm (L), no edema noted Arm (R) 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 II-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 grossly normal, no motor/sensory deficits, alert, oriented x 3, responsive, normal mood/affect Assessment/Plan Problem List: (1) Facial cellulitis ICD Codes: L03.211 - Cellulitis of face SNOMED: 829049417 (2) COPD exacerbation ICD Codes: J44.1 - COPD exacerbation SNOMED: 005711943 (3) Toxic metabolic encephalopathy ICD Codes: G92 - Toxic encephalopathy SNOMED: 097992364 (4) Hypertension, malignant ICD Codes: I10 - Hypertension, malignant SNOMED: 71054013 (5) Diabetes mellitus ICD Codes: E11.9 - Diabetes mellitus SNOMED: 20275678 Status: stable, progressing Assessment/Plan: dc iv steroids resp rx o2 iv abx Monitor chest x-ray Monitor oxygen saturations Accu-Cheks with sliding scale As needed IV diuretic therapy IV antibiotics for facial cellulitis Anxiolytics and psych treatment xray shoulders and hands Floyd Downey MD Sep 21, 2020 15:00
--- NOTE | 2020-09-21 15:27 | Diagnostic Imaging Report ---
Indication: Reason For Exam: COUGH Technique: Single AP view of the chest. Comparison: Chest Dated 09/18/2020 Findings: The cardiomediastinal silhouette is unchanged in appearance. Redemonstration of right diaphragmatic hernia. Unchanged diffuse interstitial prominence, likely representing interstitial edema. No new infarcts or pleural effusion. No new airspace consolidation. No acute osseous abnormality. Redemonstration of severe degenerative changes of the left glenohumeral joint. IMPRESSION: Interstitial edema without new airspace consolidation.
[2020-09-21 16:00] VITALS: BP 116/79
[2020-09-21 20:00] VITALS: BP 124/83
[2020-09-21] MEDS: Miconazole Vag Cr 45gm Tube (100mg per applicator) VAGIN SCH (20:54)
[2020-09-21] MEDS: Flonase Nasal Inhaler 16gm NASAL SCH (21:46)
[2020-09-22] VITALS: BP 129/65
--- NOTE | 2020-09-22 01:06 | Cardiology Progress Note ---
Subjective DATE OF SERVICE: Sep 21, 2020 Less congestion and SOB. No CP. C/O joint pains. Still anxious at times with manic features. Covid 19 swab negative Monitor: sinus with sinus tachycardia and rare PAC's Objective Last 24 Hour Vital Signs Date Time Temp Pulse Resp B/P (MAP) Pulse Ox O2 Delivery O2 Flow Rate FiO2 09/22/20 00:00 97.7 92 20 129/65 (86) 96 09/21/20 23:28 102 18 100 Nasal Cannula 3.0 32 104 18 95 09/21/20 21:00 Nasal Cannula 3.0 09/21/20 21:00 97 09/21/20 20:06 102 18 99 Nasal Cannula 3.0 32 99 18 94 09/21/20 20:06 94 Nasal Cannula 3.0 32 09/21/20 20:00 97.3 98 20 124/83 (97) 95 09/21/20 17:28 98.1 09/21/20 17:08 104 18 100 Nasal Cannula 3.0 32 102 18 86 09/21/20 16:00 97 09/21/20 16:00 97.9 102 20 116/79 (91) 95 09/21/20 12:00 98.1 102 20 122/74 (90) 93 09/21/20 12:00 101 09/21/20 11:27 104 18 100 Nasal Cannula 3.0 32 102 18 96 09/21/20 10:46 98.0 09/21/20 10:17 104 116/84 09/21/20 09:00 Nasal Cannula 3.0 09/21/20 08:00 105 09/21/20 08:00 98.0 104 20 116/84 (95) 93 09/21/20 07:31 95 Nasal Cannula 3.0 32 09/21/20 07:31 99 18 100 Nasal Cannula 3.0 32 96 18 95 09/21/20 04:12 161/95 09/21/20 04:00 96 09/21/20 04:00 97.9 99 24 161/80 (107) 98 09/21/20 03:05 98 14 100 35 09/21/20 03:03 98 18 100 Bi-Pap 35 90 18 96 ROS: unchanged from 09/18/20 HEENT: normal ENT inspection RHYTHM: NSR, ST, PACs LUNGS: expiratory wheezing, diminished breath sounds CARDIAC: normal rate, regular rhythm, normal S1 and S2, gallop/S4 ABDOMEN: normal bowel sounds, non tender, soft, no organomegaly, other - obese EXTREMITIES: +1 edema Laboratory Tests Test 09/21/20 05:53 09/21/20 06:28 09/21/20 12:01 09/21/20 16:28 White Blood Count 10.7 K/UL (4.8-10.8) Red Blood Count 3.31 M/UL (4.20-5.40) L Hemoglobin 9.4 G/DL (12.0-16.0) L Hematocrit 28.8 % (37.0-47.0) L Mean Corpuscular Volume 87 FL (80-99) Mean Corpuscular Hemoglobin 28.5 PG (27.0-31.0) Mean Corpuscular Hemoglobin Concent 32.9 G/DL (32.0-36.0) Red Cell Distribution Width 13.6 % (11.6-14.8) Platelet Count 306 K/UL (150-450) Mean Platelet Volume 7.4 FL (6.5-10.1) Neutrophils (%) (Auto) 74.7 % (45.0-75.0) Lymphocytes (%) (Auto) 17.7 % (20.0-45.0) L Monocytes (%) (Auto) 6.8 % (1.0-10.0) Eosinophils (%) (Auto) 0.1 % (0.0-3.0) Basophils (%) (Auto) 0.8 % (0.0-2.0) Sodium Level 139 MMOL/L (136-145) Potassium Level 4.1 MMOL/L (3.5-5.1) Chloride Level 101 MMOL/L (98-107) Carbon Dioxide Level 33 MMOL/L (21-32) H Anion Gap 5 mmol/L (5-15) Blood Urea Nitrogen 27 mg/dL (7-18) H Creatinine 1.0 MG/DL (0.55-1.30) Estimat Glomerular Filtration Rate > 60 mL/min (>60) Glucose Level 398 MG/DL (74-106) H Calcium Level 8.8 MG/DL (8.5-10.1) POC Whole Blood Glucose 356 MG/DL (74-106) H 88 MG/DL (74-106) 158 MG/DL (74-106) H Test 09/21/20 20:49 POC Whole Blood Glucose Pending Microbiology Date/Time Source Procedure Growth Status 09/19/20 19:30 Urine,Clean Catch Urine Culture - Preliminary Resulted Assessment/Plan Assessment/Plan COPD exacerbation with hypoxia Acute bronchitis Covid 19 PCR negative Ac/chr diastolic CHF Hx breast CA Paroxysmal atrial ectopy Hypertensive heart disease Sinus tachycardia Steroids tapered off. O2 suppl Anti-coagulation Abx Diuresis based on clinical parameters; trend BNP. Titrate antiHTN regimen Cardiac monitoring Limit beta agonist use Joint x-rays pending PT/OT Werner Martinez MD Sep 22, 2020 01:06
[2020-09-22] MEDS: Levalbuterol Inh UD 1.25mg/0.5ml HHN SCH ×5 (01:51→19:26)
[2020-09-22 04:00] VITALS: BP 138/66
[2020-09-22] MEDS: Nitrofurantoin Macrocrystal 50mg cap ORAL SCH ×2 (06:58→22:21)
[2020-09-22] MEDS: NovoLOG Insulin Flexpen SUBQ SCH ×4 (06:59→22:38)
[2020-09-22 08:00] VITALS: BP 149/75
[2020-09-22] MEDS: Nystatin Susp 500,000 units/5ml ORAL SCH ×4 (09:09→22:04)
[2020-09-22] MEDS: Vitamin D 1000 units Tab ORAL SCH (09:10)
[2020-09-22] MEDS: Sertraline 100mg tab ORAL SCH (09:10)
[2020-09-22] MEDS: Vitamin B Complex Tab ORAL SCH (09:10)
[2020-09-22] MEDS: Anastrazole 1mg tab ORAL SCH (09:10)
[2020-09-22] MEDS: Ascorbic Acid 500mg tab ORAL SCH (09:10)
[2020-09-22] MEDS: Solu-MEDROL 40mg Inj IVP SCH ×2 (09:10→22:04)
[2020-09-22] MEDS: Heparin 5000 units/ml inj SUBQ SCH ×2 (09:12→21:00)
[2020-09-22] MEDS: Vancomycin 1gm/D5W 275ml IVPB SCH ×4 (09:34→22:04)
--- NOTE | 2020-09-22 10:14 | Pulmonology Progress Note ---
Subjective ROS Limited/Unobtainable: No Allergies: Coded Allergies: AMOXICILLIN (Verified Allergy, Mild, RASH HIVES, 09/29/13) ERYTHROMYCIN BASE (Unverified Allergy, Unknown, 10/13/17) IODINE (Verified Allergy, Unknown, 09/29/13) PENICILLINS (Verified Allergy, Unknown, RASH HIVES, 09/29/13) All Systems: reviewed and negative except above Subjective care noted some sob but near baseline dry cough on oxygen on diuretics skin care noted Objective Last 24 Hour Vital Signs Date Time Temp Pulse Resp B/P (MAP) Pulse Ox O2 Delivery O2 Flow Rate FiO2 09/22/20 09:31 105 149/75 09/22/20 07:30 100 Nasal Cannula 3.0 32 09/22/20 07:24 97 18 100 Nasal Cannula 3.0 32 100 20 99 09/22/20 04:00 97.7 85 20 138/66 (90) 95 09/22/20 04:00 82 09/22/20 02:09 99 18 100 Nasal Cannula 3.0 32 97 18 96 09/22/20 02:04 101 17 100 35 09/22/20 00:00 102 09/22/20 00:00 97.7 92 20 129/65 (86) 96 09/21/20 23:28 102 18 100 Nasal Cannula 3.0 32 104 18 95 09/21/20 21:00 Nasal Cannula 3.0 09/21/20 21:00 97 09/21/20 20:06 102 18 99 Nasal Cannula 3.0 32 99 18 94 09/21/20 20:06 94 Nasal Cannula 3.0 32 09/21/20 20:00 97.3 98 20 124/83 (97) 95 09/21/20 17:28 98.1 09/21/20 17:08 104 18 100 Nasal Cannula 3.0 32 102 18 86 09/21/20 16:00 97 09/21/20 16:00 97.9 102 20 116/79 (91) 95 09/21/20 12:00 98.1 102 20 122/74 (90) 93 09/21/20 12:00 101 09/21/20 11:27 104 18 100 Nasal Cannula 3.0 32 102 18 96 09/21/20 10:46 98.0 09/21/20 10:17 104 116/84 Objective WDWN NAD reduced breath sounds bilaterally without rhonchi or wheeze [id number] without MRG NABS nontender no HSM no CCE nonfocal dyspneic Microbiology Date/Time Source Procedure Growth Status 09/19/20 19:30 Urine,Clean Catch Urine Culture - Preliminary Gram Negative Juan Resulted Laboratory Tests 09/21/20 12:01: POC Whole Blood Glucose 88 09/21/20 16:28: POC Whole Blood Glucose 158H 09/21/20 20:49: POC Whole Blood Glucose [Pending] 09/22/20 05:55: POC Whole Blood Glucose [Pending] Current Medications Medications (Trade) Dose Ordered Sig/Sera Route PRN Reason Start Time Stop Time Status Last Admin Dose Admin Acetaminophen (Tylenol) 650 mg Q4H PRN ORAL Mild Pain (Pain Scale 1-3) 09/18/20 23:45 10/18/20 23:44 09/22/20 07:13 Amlodipine Besylate (Norvasc) 5 mg DAILY ORAL 09/19/20 09:00 10/19/20 08:59 09/22/20 09:31 Anastrozole (Arimidex) 1 mg DAILY ORAL 09/19/20 09:00 10/19/20 08:59 09/22/20 09:10 Ascorbic Acid (Vitamin C) 500 mg DAILY ORAL 09/21/20 09:00 10/21/20 08:59 09/22/20 09:10 Clonidine HCl (Catapres Tab) 0.1 mg Q4H PRN ORAL SBP > 160 09/19/20 17:15 12/18/20 17:14 09/21/20 04:12 Dextrose (Dextrose 50%) 25 ml Q30M PRN IV Hypoglycemia 09/18/20 19:00 12/17/20 18:59 Dextrose (Dextrose 50%) 50 ml Q30M PRN IV Hypoglycemia 09/18/20 19:00 12/17/20 18:59 Fluticasone Propionate (Flonase) 1 spray QHS NASAL 09/18/20 21:00 10/18/20 20:59 09/21/20 21:46 Furosemide (Lasix) 20 mg DAILY IV 09/20/20 09:00 10/20/20 08:59 09/22/20 09:10 Heparin Sodium (Porcine) (Heparin 5000 units/ml) 5,000 units EVERY 12 HOURS SUBQ 09/18/20 21:00 11/02/20 20:59 09/22/20 09:12 Hydroxyzine HCl (Atarax) 50 mg Q4H PRN ORAL Itching 09/19/20 06:15 10/19/20 06:14 09/21/20 16:57 Insulin Aspart (NovoLOG) BEFORE MEALS AND HS SUBQ 09/18/20 21:00 12/17/20 20:59 09/22/20 06:59 Levalbuterol HCl (Xopenex) 1.25 mg Q4HRT HHN 09/19/20 04:00 09/24/20 03:59 09/22/20 07:21 Lorazepam (Ativan) 1 mg Q6H PRN ORAL For Anxiety 09/20/20 15:15 09/27/20 15:14 Methylprednisolone Sodium Succinate (Solu-MEDROL) 40 mg EVERY 12 HOURS IVP 09/20/20 21:00 12/17/20 20:59 09/22/20 09:10 Miconazole Nitrate (Monistat) 1 applic BEDTIME VAGIN 09/18/20 21:00 09/24/20 21:01 09/21/20 20:54 Nitrofurantoin (Macrodantin) 100 mg Q8HR ORAL 09/20/20 22:00 09/27/20 21:59 09/22/20 06:58 Nystatin (Nystatin) 4 ml FOUR TIMES A DAY ORAL 09/18/20 21:00 09/25/20 20:59 09/22/20 09:09 Ondansetron HCl (Zofran) 4 mg Q6H PRN IVP Nausea & Vomiting 09/18/20 19:00 10/18/20 18:59 09/22/20 03:07 Pantoprazole (Protonix) 40 mg DAILY ORAL 09/19/20 09:00 10/19/20 08:59 09/22/20 09:09 Potassium Chloride (K-Dur) 20 meq DAILY ORAL 09/20/20 09:00 12/19/20 08:59 09/22/20 09:10 Sertraline HCl (Zoloft) 100 mg DAILY ORAL 09/19/20 09:00 10/19/20 08:59 09/22/20 09:10 Temazepam (Restoril) 15 mg HSPRN PRN ORAL Insomnia 09/19/20 04:00 09/26/20 03:59 09/19/20 21:01 Vancomycin HCl (Vanco pharmacy to dose) 1 ea DAILY PRN MISC Per rx protocol 09/18/20 19:00 10/18/20 18:59 Vancomycin HCl 1 gm/Dextrose 275 ml @ 183.708 mls/hr Q12HR IVPB 09/19/20 09:00 09/24/20 08:59 09/22/20 09:34 Vitamin B Complex (Vitamin B Complex) 1 tab DAILY ORAL 09/21/20 09:00 12/20/20 08:59 09/22/20 09:10 Vitamin D (Vitamin D) 1,000 intlu DAILY ORAL 09/20/20 19:15 10/20/20 19:14 09/22/20 09:10 Assessment/Plan Assessment/Plan ASSESSMENT: Chronic respiratory failure COPD exacerbation and facial cellulitis. diabetes, hypertension, chronic hypoxemia chronic debility PLAN: sent order for DME for new o2 concentrator and nebulizer; notes it is not working care noted IV antibiotics IV steroids as is monitor blood sugars facial care respiratory care as is home meds supportive care oxygen therapy and monitor ABG PRN prognosis guarded impression, plan, and exam edited and reviewed in detail care discussed with Froilan Clarke MD Sep 22, 2020 10:14
[2020-09-22 12:00] VITALS: BP 119/73
[2020-09-22] MEDS: LORazepam 1mg tab ORAL PRN ×2 (14:42→22:20)
[2020-09-22 16:00] VITALS: BP 165/73
--- NOTE | 2020-09-22 16:45 | General Progress Note ---
Subjective ROS Limited/Unobtainable: No Constitutional: Reports: malaise, weakness HEENT: Reports: no symptoms Cardiovascular: Reports: no symptoms Respiratory: Reports: cough, shortness of breath, wheezing Gastrointestinal/Abdominal: Reports: no symptoms Genitourinary: Reports: hematuria Neurologic/Psychiatric: Reports: no symptoms Endocrine: Reports: no symptoms Hematologic/Lymphatic: Reports: anemia Allergies: Coded Allergies: AMOXICILLIN (Verified Allergy, Mild, RASH HIVES, 09/29/13) ERYTHROMYCIN BASE (Unverified Allergy, Unknown, 10/13/17) IODINE (Verified Allergy, Unknown, 09/29/13) PENICILLINS (Verified Allergy, Unknown, RASH HIVES, 09/29/13) All Systems: reviewed and negative except above Subjective c/o bilateral shoulder and hand pain. still with sob. O2 sats better currently. no fevers or chills. +facial pain. decreasing facial erythema. Objective Last 24 Hour Vital Signs Date Time Temp Pulse Resp B/P (MAP) Pulse Ox O2 Delivery O2 Flow Rate FiO2 09/22/20 16:00 97.9 98 21 165/73 (103) 96 09/22/20 14:42 98 22 119/73 96 09/22/20 12:00 98 09/22/20 12:00 97.9 94 22 119/73 (88) 96 09/22/20 11:41 98 20 100 Nasal Cannula 3.0 32 95 18 99 09/22/20 09:31 105 149/75 09/22/20 09:00 Nasal Cannula 3.0 09/22/20 08:00 97.7 104 20 149/75 (99) 97 09/22/20 08:00 104 09/22/20 07:30 100 Nasal Cannula 3.0 32 09/22/20 07:24 97 18 100 Nasal Cannula 3.0 32 100 20 99 09/22/20 04:00 97.7 85 20 138/66 (90) 95 09/22/20 04:00 82 09/22/20 02:09 99 18 100 Nasal Cannula 3.0 32 97 18 96 09/22/20 02:04 101 17 100 35 09/22/20 00:00 102 09/22/20 00:00 97.7 92 20 129/65 (86) 96 09/21/20 23:28 102 18 100 Nasal Cannula 3.0 32 104 18 95 09/21/20 21:00 Nasal Cannula 3.0 09/21/20 21:00 97 09/21/20 20:06 102 18 99 Nasal Cannula 3.0 32 99 18 94 09/21/20 20:06 94 Nasal Cannula 3.0 32 09/21/20 20:00 97.3 98 20 124/83 (97) 95 09/21/20 17:28 98.1 09/21/20 17:08 104 18 100 Nasal Cannula 3.0 32 102 18 86 Laboratory Tests 09/21/20 20:49: POC Whole Blood Glucose [Pending] 09/22/20 05:55: POC Whole Blood Glucose [Pending] 09/22/20 12:06: POC Whole Blood Glucose 143H Height (Feet): 5 Height (Inches): 1.00 Weight (Pounds): 210 Objective General Appearance: WD/WN, alert, mild distress EENT: PERRL/EOMI, normal ENT inspection Neck: non-tender, normal alignment Cardiovascular: normal peripheral pulses, normal rate, regular rhythm Respiratory/Chest: chest wall non-tender, lungs clear, no respiratory distress, no accessory muscle use, expiratory wheezing Abdomen: normal bowel sounds, non tender, soft, no organomegaly Edema: no edema noted Arm (L), no edema noted Arm (R) Neurologic: direct support staff member II-XII grossly normal, no motor/sensory deficits, alert, oriented x 3, responsive, normal mood/affect Assessment/Plan Problem List: (1) Facial cellulitis ICD Codes: L03.211 - Cellulitis of face SNOMED: 169042691 (2) COPD exacerbation ICD Codes: J44.1 - COPD exacerbation SNOMED: 859640431 (3) Toxic metabolic encephalopathy ICD Codes: G92 - Toxic encephalopathy SNOMED: 842251318 (4) Hypertension, malignant ICD Codes: I10 - Hypertension, malignant SNOMED: 31437369 (5) Diabetes mellitus ICD Codes: E11.9 - Diabetes mellitus SNOMED: 68322069 Status: stable, progressing Assessment/Plan: monitor of iv steroids resp rx o2 iv abx Monitor chest x-ray Monitor oxygen saturations Accu-Cheks with sliding scale As needed IV diuretic therapy IV antibiotics for facial cellulitis Anxiolytics and psych treatment xray shoulders and hands Floyd Downey MD Sep 22, 2020 16:45
[2020-09-22 20:00] VITALS: BP 142/68
--- NOTE | 2020-09-22 20:08 | Psychiatric Progress Note ---
Psychiatry Progress Note Psychiatry Progress Note Subjective the pt was agitated today and yelling at me and rns the pt is paranoid and has inappropriate anger the pt has insomnia Medications Current Medications Medications (Trade) Dose Ordered Sig/Sera Route PRN Reason Start Time Stop Time Status Last Admin Dose Admin Acetaminophen (Tylenol) 650 mg Q4H PRN ORAL Mild Pain (Pain Scale 1-3) 09/18/20 23:45 10/18/20 23:44 09/22/20 07:13 Amlodipine Besylate (Norvasc) 5 mg DAILY ORAL 09/19/20 09:00 10/19/20 08:59 09/22/20 09:31 Anastrozole (Arimidex) 1 mg DAILY ORAL 09/19/20 09:00 10/19/20 08:59 09/22/20 09:10 Ascorbic Acid (Vitamin C) 500 mg DAILY ORAL 09/21/20 09:00 10/21/20 08:59 09/22/20 09:10 Clonidine HCl (Catapres Tab) 0.1 mg Q4H PRN ORAL SBP > 160 09/19/20 17:15 12/18/20 17:14 09/21/20 04:12 Dextrose (Dextrose 50%) 25 ml Q30M PRN IV Hypoglycemia 09/18/20 19:00 12/17/20 18:59 Dextrose (Dextrose 50%) 50 ml Q30M PRN IV Hypoglycemia 09/18/20 19:00 12/17/20 18:59 Fluticasone Propionate (Flonase) 1 spray QHS NASAL 09/18/20 21:00 10/18/20 20:59 09/21/20 21:46 Furosemide (Lasix) 20 mg DAILY IV 09/20/20 09:00 10/20/20 08:59 09/22/20 09:10 Heparin Sodium (Porcine) (Heparin 5000 units/ml) 5,000 units EVERY 12 HOURS SUBQ 09/18/20 21:00 11/02/20 20:59 09/22/20 09:12 Hydroxyzine HCl (Atarax) 50 mg Q4H PRN ORAL Itching 09/19/20 06:15 10/19/20 06:14 09/21/20 16:57 Insulin Aspart (NovoLOG) BEFORE MEALS AND HS SUBQ 09/18/20 21:00 12/17/20 20:59 09/22/20 16:28 Levalbuterol HCl (Xopenex) 1.25 mg Q4HRT HHN 09/19/20 04:00 09/24/20 03:59 09/22/20 19:26 Lorazepam (Ativan) 1 mg Q6H PRN ORAL For Anxiety 09/20/20 15:15 09/27/20 15:14 09/22/20 14:42 Methylprednisolone Sodium Succinate (Solu-MEDROL) 40 mg EVERY 12 HOURS IVP 09/20/20 21:00 12/17/20 20:59 09/22/20 09:10 Miconazole Nitrate (Monistat) 1 applic BEDTIME VAGIN 09/18/20 21:00 09/24/20 21:01 09/21/20 20:54 Nitrofurantoin (Macrodantin) 100 mg Q12HR ORAL 09/22/20 21:00 09/27/20 20:59 Nystatin (Nystatin) 4 ml FOUR TIMES A DAY ORAL 09/18/20 21:00 09/25/20 20:59 09/22/20 17:46 Ondansetron HCl (Zofran) 4 mg Q6H PRN IVP Nausea & Vomiting 09/18/20 19:00 10/18/20 18:59 09/22/20 03:07 Pantoprazole (Protonix) 40 mg DAILY ORAL 09/19/20 09:00 10/19/20 08:59 09/22/20 09:09 Potassium Chloride (K-Dur) 20 meq DAILY ORAL 09/20/20 09:00 12/19/20 08:59 09/22/20 09:10 Sertraline HCl (Zoloft) 100 mg DAILY ORAL 09/19/20 09:00 10/19/20 08:59 09/22/20 09:10 Vancomycin HCl (Vanco pharmacy to dose) 1 ea DAILY PRN MISC Per rx protocol 09/18/20 19:00 10/18/20 18:59 Vancomycin HCl 1 gm/Dextrose 275 ml @ 183.708 mls/hr Q12HR IVPB 09/19/20 09:00 09/24/20 08:59 09/22/20 09:34 Vitamin B Complex (Vitamin B Complex) 1 tab DAILY ORAL 09/21/20 09:00 12/20/20 08:59 09/22/20 09:10 Vitamin D (Vitamin D) 1,000 intlu DAILY ORAL 09/20/20 19:15 10/20/20 19:14 09/22/20 09:10 Zolpidem Tartrate (Ambien) 5 mg HSPRN PRN ORAL Insomnia 09/22/20 14:45 09/29/20 14:44 Neurological/Psychiatric: Reports: anxiety Allergies: Coded Allergies: AMOXICILLIN (Verified Allergy, Mild, RASH HIVES, 09/29/13) ERYTHROMYCIN BASE (Unverified Allergy, Unknown, 10/13/17) IODINE (Verified Allergy, Unknown, 09/29/13) PENICILLINS (Verified Allergy, Unknown, RASH HIVES, 09/29/13) Objective Data Height (Feet): 5 Height (Inches): 1.00 Weight (Pounds): 210 General Appearance: WD/WN, alert, mild distress Additional Comments: alert and oriented times self, place, and situation. Mood is anxious. Affect is blunted, congruent with mood. Thought process is concrete. Thought content, there is no suicidal or homicidal ideation. Cognition is intact. Insight and judgment is fair. Assessment/Plan Status: stable, progressing Assessment/Plan: ASSESSMENT: [place] I Major depressive disorder. Anxiety disorder. [place] II borderline [place] III COPD. [place] IV Low. [place] V 50 PLAN: 1. Continue Zoloft. 2. ativan and ambien prn 3. The patient would like only melatonin. 4. Provide the patient with reality orientation and supportive therapy. Jayy Andino MD Sep 22, 2020 20:08
[2020-09-22] MEDS: Miconazole Vag Cr 45gm Tube (100mg per applicator) VAGIN SCH (21:00)
[2020-09-22] MEDS: Flonase Nasal Inhaler 16gm NASAL SCH (22:05)
[2020-09-22] MEDS: Zolpidem 5mg tab ORAL PRN (22:19)
[2020-09-22] MEDS: HydrOXYzine 50mg tab ORAL PRN (22:45)
[2020-09-23] VITALS: BP 122/74
[2020-09-23] MEDS: Levalbuterol Inh UD 1.25mg/0.5ml HHN SCH ×7 (00:11→23:27)
--- NOTE | 2020-09-23 01:35 | Cardiology Progress Note ---
Subjective DATE OF SERVICE: Sep 22, 2020 Less congestion and SOB. No CP. C/O joint pains. Facial swelling improved Still anxious at times with manic features. Covid 19 swab negative Monitor: sinus with sinus tachycardia and rare PAC's Objective Last 24 Hour Vital Signs Date Time Temp Pulse Resp B/P (MAP) Pulse Ox O2 Delivery O2 Flow Rate FiO2 09/23/20 00:12 101 20 100 35 09/23/20 00:11 98 21 100 Bi-Pap 35 94 22 97 09/23/20 00:00 98.0 79 20 122/74 (90) 97 09/22/20 21:00 Nasal Cannula 3.0 09/22/20 20:00 98.1 91 21 142/68 (92) 97 09/22/20 19:27 96 Nasal Cannula 3.0 32 09/22/20 19:26 104 20 99 Nasal Cannula 3.0 32 101 20 95 09/22/20 16:55 103 20 98 Nasal Cannula 3.0 32 104 20 97 09/22/20 16:00 97.9 98 21 165/73 (103) 96 09/22/20 15:12 95 20 165/73 97 09/22/20 14:42 98 22 119/73 96 09/22/20 12:00 98 09/22/20 12:00 97.9 94 22 119/73 (88) 96 09/22/20 11:41 98 20 100 Nasal Cannula 3.0 32 95 18 99 09/22/20 09:31 105 149/75 09/22/20 09:00 Nasal Cannula 3.0 09/22/20 08:00 97.7 104 20 149/75 (99) 97 09/22/20 08:00 104 09/22/20 07:30 100 Nasal Cannula 3.0 32 09/22/20 07:24 97 18 100 Nasal Cannula 3.0 32 100 20 99 09/22/20 05:04 94 16 99 35 09/22/20 04:00 97.7 85 20 138/66 (90) 95 09/22/20 04:00 82 09/22/20 02:09 99 18 100 Nasal Cannula 3.0 32 97 18 96 09/22/20 02:04 101 17 100 35 ROS: unchanged from 09/18/20 HEENT: normal ENT inspection RHYTHM: NSR, ST, PACs LUNGS: expiratory wheezing, diminished breath sounds CARDIAC: normal rate, regular rhythm, normal S1 and S2, gallop/S4 ABDOMEN: normal bowel sounds, non tender, soft, no organomegaly, other - obese EXTREMITIES: +1 edema Laboratory Tests Test 09/22/20 05:55 09/22/20 12:06 POC Whole Blood Glucose Pending 143 MG/DL (74-106) H Assessment/Plan Assessment/Plan COPD exacerbation with hypoxia Acute bronchitis Covid 19 PCR negative Ac/chr diastolic CHF Hx breast CA Paroxysmal atrial ectopy Hypertensive heart disease Sinus tachycardia Steroids tapered off. O2 suppl Anti-coagulation Abx Diuresis based on clinical parameters; trend BNP. Titrate antiHTN regimen DC cardiac monitoring Limit beta agonist use Joint x-rays to be reviewed PT/OT Werner Martinez MD Sep 23, 2020 01:35
[2020-09-23 04:00] VITALS: BP 144/90
[2020-09-23] MEDS: HydrOXYzine 50mg tab ORAL PRN ×3 (05:15→23:43)
[2020-09-23] MEDS: LORazepam 1mg tab ORAL PRN (05:16)
[2020-09-23] MEDS: NovoLOG Insulin Flexpen SUBQ SCH ×4 (06:31→21:05)
[2020-09-23 08:00] VITALS: BP 134/52
[2020-09-23 09:11] LABS: BASOPHILS % (AUTO) 1.7 % (0.0-2.0); HEMATOCRIT 31.4 % (37.0-47.0); HEMOGLOBIN 10.5 G/DL (12.0-16.0); LYMPHOCYTES % (AUTO) 23.9 % (20.0-45.0); MEAN CORPUSCULAR VOLUME 86 FL (80-99); MONOCYTES % (AUTO) 4.6 % (1.0-10.0); NEUTROPHILS % (AUTO) 69.8 % (45.0-75.0); PLATELET COUNT 315 K/UL (150-450); RED BLOOD COUNT 3.65 M/UL (4.20-5.40); RED CELL DISTRIBUTION WIDTH 14.4 % (11.6-14.8); WHITE BLOOD COUNT 13.7 K/UL (4.8-10.8)
[2020-09-23 09:52] LABS: ALANINE AMINOTRANSFERASE 21 U/L (12-78); ALBUMIN 3.4 G/DL (3.4-5.0); ALBUMIN/GLOBULIN RATIO 0.8 (1.0-2.7); ALKALINE PHOSPHATASE 80 U/L (46-116); ANION GAP 5 mmol/L (5-15); ASPARTATE AMINO TRANSFERASE 15 U/L (15-37); BILIRUBIN,TOTAL 0.2 MG/DL (0.2-1.0); BLOOD UREA NITROGEN 24 mg/dL (7-18); CALCIUM 9.3 MG/DL (8.5-10.1); CARBON DIOXIDE 34 MMOL/L (21-32); CHLORIDE 99 MMOL/L (98-107); POTASSIUM 4.2 MMOL/L (3.5-5.1); SODIUM 138 MMOL/L (136-145)
[2020-09-23] MEDS: Solu-MEDROL 40mg Inj IVP SCH ×2 (09:58→22:09)
[2020-09-23] MEDS: Nystatin Susp 500,000 units/5ml ORAL SCH ×4 (09:58→20:42)
[2020-09-23] MEDS: Vitamin D 1000 units Tab ORAL SCH (09:59)
[2020-09-23] MEDS: Nitrofurantoin Macrocrystal 50mg cap ORAL SCH ×2 (09:59→20:41)
[2020-09-23] MEDS: Sertraline 100mg tab ORAL SCH (10:00)
[2020-09-23] MEDS: Ascorbic Acid 500mg tab ORAL SCH (10:00)
[2020-09-23] MEDS: Anastrazole 1mg tab ORAL SCH (10:00)
[2020-09-23] MEDS: Vitamin B Complex Tab ORAL SCH (10:00)
[2020-09-23] MEDS: Vancomycin 1gm/D5W 275ml IVPB SCH ×4 (10:02→22:09)
[2020-09-23] MEDS: Heparin 5000 units/ml inj SUBQ SCH ×2 (10:03→20:41)
[2020-09-23 12:00] VITALS: BP 153/78
--- NOTE | 2020-09-23 12:04 | General Progress Note ---
Subjective ROS Limited/Unobtainable: No Constitutional: Reports: malaise, weakness HEENT: Reports: no symptoms Cardiovascular: Reports: no symptoms Respiratory: Reports: cough, shortness of breath Gastrointestinal/Abdominal: Reports: no symptoms Genitourinary: Reports: no symptoms Neurologic/Psychiatric: Reports: anxiety, depressed, emotional problems Endocrine: Reports: no symptoms Hematologic/Lymphatic: Reports: no symptoms Allergies: Coded Allergies: AMOXICILLIN (Verified Allergy, Mild, RASH HIVES, 09/29/13) ERYTHROMYCIN BASE (Unverified Allergy, Unknown, 10/13/17) IODINE (Verified Allergy, Unknown, 09/29/13) PENICILLINS (Verified Allergy, Unknown, RASH HIVES, 09/29/13) All Systems: reviewed and negative except above Subjective no new complaints. anxious and agitated,. has been very difficult and demanding with staff. decreased facial rash. c/o facial pain. Objective Last 24 Hour Vital Signs Date Time Temp Pulse Resp B/P (MAP) Pulse Ox O2 Delivery O2 Flow Rate FiO2 09/23/20 11:42 105 20 100 Nasal Cannula 2.0 28 95 20 100 09/23/20 10:01 90 134/52 09/23/20 09:00 Nasal Cannula 3.0 09/23/20 08:10 95 Nasal Cannula 2.0 28 09/23/20 08:00 98.6 90 20 134/52 (79) 98 09/23/20 07:45 100 20 100 Nasal Cannula 2.0 28 101 20 100 09/23/20 05:46 101 21 122/74 100 09/23/20 04:00 98.2 91 20 144/90 (108) 95 09/23/20 03:21 101 21 100 Nasal Cannula 2.0 28 99 19 100 09/23/20 00:12 101 20 100 35 09/23/20 00:11 98 21 100 Bi-Pap 35 94 22 97 09/23/20 00:00 98.0 79 20 122/74 (90) 97 09/22/20 21:00 Nasal Cannula 3.0 09/22/20 20:00 98.1 91 21 142/68 (92) 97 09/22/20 19:27 96 Nasal Cannula 3.0 32 09/22/20 19:26 104 20 99 Nasal Cannula 3.0 32 101 20 95 09/22/20 16:55 103 20 98 Nasal Cannula 3.0 32 104 20 97 09/22/20 16:00 97.9 98 21 165/73 (103) 96 09/22/20 15:12 95 20 165/73 97 09/22/20 14:42 98 22 119/73 96 Intake and Output 09/22/20 09/23/20 19:00 07:00 Intake Total 1080 ml 280 ml Output Total 1950 ml Balance -870 ml 280 ml Intake Oral 1080 ml 280 ml Output Urine Total 1950 ml # Bowel Movements 1 Laboratory Tests 09/22/20 12:06: POC Whole Blood Glucose 143H 09/23/20 08:50: White Blood Count 13.7H, Red Blood Count 3.65L, Hemoglobin 10.5L, Hematocrit 31.4L, Mean Corpuscular Volume 86, Mean Corpuscular Hemoglobin 28.8, Mean Corpuscular Hemoglobin Concent 33.5, Red Cell Distribution Width 14.4, Platelet Count 315, Mean Platelet Volume 8.1, Neutrophils (%) (Auto) 69.8, Lymphocytes (%) (Auto) 23.9, Monocytes (%) (Auto) 4.6, Eosinophils (%) (Auto) 0.0, Basophils (%) (Auto) 1.7, Sodium Level 138, Potassium Level 4.2, Chloride Level 99, Carbon Dioxide Level 34H, Anion Gap 5, Blood Urea Nitrogen 24H, Creatinine 1.0, Estimat Glomerular Filtration Rate > 60, Glucose Level 282H, Calcium Level 9.3, Magnesium Level 1.9, Total Bilirubin 0.2, Aspartate Amino Transf (AST/SGOT) 15, Alanine Aminotransferase (ALT/SGPT) 21, Alkaline Phosphatase 80, Pro-B-Type Natriuretic Peptide 150H, Total Protein 7.6, Albumin 3.4, Globulin 4.2, Albumin/Globulin Ratio 0.8L Height (Feet): 5 Height (Inches): 1.00 Weight (Pounds): 210 Objective General Appearance: WD/WN, alert, mild distress EENT: PERRL/EOMI, normal ENT inspection Neck: non-tender, normal alignment Cardiovascular: normal peripheral pulses, normal rate, regular rhythm Respiratory/Chest: chest wall non-tender, lungs clear, no respiratory distress, no accessory muscle use, expiratory wheezing Abdomen: normal bowel sounds, non tender, soft, no organomegaly Edema: no edema noted Arm (L), no edema noted Arm (R) Neurologic: paramedical aide II-XII grossly normal, no motor/sensory deficits, alert, oriented x 3, responsive, normal mood/affect Assessment/Plan Problem List: (1) Facial cellulitis ICD Codes: L03.211 - Cellulitis of face SNOMED: 842010125 (2) COPD exacerbation ICD Codes: J44.1 - COPD exacerbation SNOMED: 653859579 (3) Toxic metabolic encephalopathy ICD Codes: G92 - Toxic encephalopathy SNOMED: 559286838 (4) Hypertension, malignant ICD Codes: I10 - Hypertension, malignant SNOMED: 17116200 (5) Diabetes mellitus ICD Codes: E11.9 - Diabetes mellitus SNOMED: 62178816 Status: stable, progressing Assessment/Plan: monitor off iv steroids resp rx o2 iv abx psych rx Monitor chest x-ray Monitor oxygen saturations Accu-Cheks with sliding scale As needed IV diuretic therapy IV antibiotics for facial cellulitis Anxiolytics and psych treatment xray shoulders and hands Floyd Downey MD Sep 23, 2020 12:04
--- NOTE | 2020-09-23 15:23 | Pulmonology Progress Note ---
Subjective ROS Limited/Unobtainable: No Allergies: Coded Allergies: AMOXICILLIN (Verified Allergy, Mild, RASH HIVES, 09/29/13) ERYTHROMYCIN BASE (Unverified Allergy, Unknown, 10/13/17) IODINE (Verified Allergy, Unknown, 09/29/13) PENICILLINS (Verified Allergy, Unknown, RASH HIVES, 09/29/13) All Systems: reviewed and negative except above Objective Last 24 Hour Vital Signs Date Time Temp Pulse Resp B/P (MAP) Pulse Ox O2 Delivery O2 Flow Rate FiO2 09/23/20 12:00 98.8 94 20 153/78 (103) 98 09/23/20 11:42 105 20 100 Nasal Cannula 2.0 28 95 20 100 09/23/20 10:01 90 134/52 09/23/20 09:00 Nasal Cannula 3.0 09/23/20 08:10 95 Nasal Cannula 2.0 28 09/23/20 08:00 98.6 90 20 134/52 (79) 98 09/23/20 07:45 100 20 100 Nasal Cannula 2.0 28 101 20 100 09/23/20 05:46 101 21 122/74 100 09/23/20 04:00 98.2 91 20 144/90 (108) 95 09/23/20 03:21 101 21 100 Nasal Cannula 2.0 28 99 19 100 09/23/20 00:12 101 20 100 35 09/23/20 00:11 98 21 100 Bi-Pap 35 94 22 97 09/23/20 00:00 98.0 79 20 122/74 (90) 97 09/22/20 21:00 Nasal Cannula 3.0 09/22/20 20:00 98.1 91 21 142/68 (92) 97 09/22/20 19:27 96 Nasal Cannula 3.0 32 09/22/20 19:26 104 20 99 Nasal Cannula 3.0 32 101 20 95 09/22/20 16:55 103 20 98 Nasal Cannula 3.0 32 104 20 97 09/22/20 16:00 97.9 98 21 165/73 (103) 96 Intake and Output 09/22/20 09/23/20 19:00 07:00 Intake Total 1080 ml 280 ml Output Total 1950 ml Balance -870 ml 280 ml Intake Oral 1080 ml 280 ml Output Urine Total 1950 ml # Bowel Movements 1 Laboratory Tests 09/23/20 08:50: White Blood Count 13.7H, Red Blood Count 3.65L, Hemoglobin 10.5L, Hematocrit 31.4L, Mean Corpuscular Volume 86, Mean Corpuscular Hemoglobin 28.8, Mean Corpuscular Hemoglobin Concent 33.5, Red Cell Distribution Width 14.4, Platelet Count 315, Mean Platelet Volume 8.1, Neutrophils (%) (Auto) 69.8, Lymphocytes (%) (Auto) 23.9, Monocytes (%) (Auto) 4.6, Eosinophils (%) (Auto) 0.0, Basophils (%) (Auto) 1.7, Sodium Level 138, Potassium Level 4.2, Chloride Level 99, Carbon Dioxide Level 34H, Anion Gap 5, Blood Urea Nitrogen 24H, Creatinine 1.0, Estimat Glomerular Filtration Rate > 60, Glucose Level 282H, Calcium Level 9.3, Magnesium Level 1.9, Total Bilirubin 0.2, Aspartate Amino Transf (AST/SGOT) 15, Alanine Aminotransferase (ALT/SGPT) 21, Alkaline Phosphatase 80, Pro-B-Type Natriuretic Peptide 150H, Total Protein 7.6, Albumin 3.4, Globulin 4.2, Albumin/Globulin Ratio 0.8L Current Medications Medications (Trade) Dose Ordered Sig/Sera Route PRN Reason Start Time Stop Time Status Last Admin Dose Admin Acetaminophen (Tylenol) 650 mg Q4H PRN ORAL Mild Pain (Pain Scale 1-3) 09/18/20 23:45 10/18/20 23:44 09/23/20 10:35 Amlodipine Besylate (Norvasc) 5 mg DAILY ORAL 09/19/20 09:00 10/19/20 08:59 09/23/20 10:01 Anastrozole (Arimidex) 1 mg DAILY ORAL 09/19/20 09:00 10/19/20 08:59 09/23/20 10:00 Ascorbic Acid (Vitamin C) 500 mg DAILY ORAL 09/21/20 09:00 10/21/20 08:59 09/23/20 10:00 Clonidine HCl (Catapres Tab) 0.1 mg Q4H PRN ORAL SBP > 160 09/19/20 17:15 12/18/20 17:14 09/21/20 04:12 Dextrose (Dextrose 50%) 25 ml Q30M PRN IV Hypoglycemia 09/18/20 19:00 12/17/20 18:59 Dextrose (Dextrose 50%) 50 ml Q30M PRN IV Hypoglycemia 09/18/20 19:00 12/17/20 18:59 Fluticasone Propionate (Flonase) 1 spray QHS NASAL 09/18/20 21:00 10/18/20 20:59 09/22/20 22:05 Furosemide (Lasix) 20 mg DAILY IV 09/20/20 09:00 10/20/20 08:59 09/23/20 09:58 Heparin Sodium (Porcine) (Heparin 5000 units/ml) 5,000 units EVERY 12 HOURS SUBQ 09/18/20 21:00 11/02/20 20:59 09/23/20 10:03 Hydroxyzine HCl (Atarax) 50 mg Q4H PRN ORAL Itching 09/19/20 06:15 10/19/20 06:14 09/23/20 10:35 Insulin Aspart (NovoLOG) BEFORE MEALS AND HS SUBQ 09/18/20 21:00 12/17/20 20:59 09/23/20 12:19 Levalbuterol HCl (Xopenex) 1.25 mg Q4HRT HHN 09/19/20 04:00 09/24/20 03:59 09/23/20 11:32 Lorazepam (Ativan) 1 mg Q6H PRN ORAL For Anxiety 09/20/20 15:15 09/27/20 15:14 09/23/20 05:16 Methylprednisolone Sodium Succinate (Solu-MEDROL) 40 mg EVERY 12 HOURS IVP 09/20/20 21:00 12/17/20 20:59 09/23/20 09:58 Miconazole Nitrate (Monistat) 1 applic BEDTIME VAGIN 09/18/20 21:00 09/24/20 21:01 09/22/20 21:00 Nitrofurantoin (Macrodantin) 100 mg Q12HR ORAL 09/22/20 21:00 09/27/20 20:59 09/23/20 09:59 Nystatin (Nystatin) 4 ml FOUR TIMES A DAY ORAL 09/18/20 21:00 09/25/20 20:59 09/23/20 12:22 Ondansetron HCl (Zofran) 4 mg Q6H PRN IVP Nausea & Vomiting 09/18/20 19:00 10/18/20 18:59 09/23/20 10:34 Pantoprazole (Protonix) 40 mg DAILY ORAL 09/19/20 09:00 10/19/20 08:59 09/23/20 09:59 Potassium Chloride (K-Dur) 20 meq DAILY ORAL 09/20/20 09:00 12/19/20 08:59 09/23/20 10:00 Sertraline HCl (Zoloft) 100 mg DAILY ORAL 09/19/20 09:00 10/19/20 08:59 09/23/20 10:00 Vancomycin HCl (Vanco pharmacy to dose) 1 ea DAILY PRN MISC Per rx protocol 09/18/20 19:00 10/18/20 18:59 Vancomycin HCl 1 gm/Dextrose 275 ml @ 183.708 mls/hr Q12HR IVPB 09/19/20 09:00 09/24/20 08:59 09/23/20 10:02 Vitamin B Complex (Vitamin B Complex) 1 tab DAILY ORAL 09/21/20 09:00 12/20/20 08:59 09/23/20 10:00 Vitamin D (Vitamin D) 1,000 intlu DAILY ORAL 09/20/20 19:15 10/20/20 19:14 09/23/20 09:59 Zolpidem Tartrate (Ambien) 5 mg HSPRN PRN ORAL Insomnia 09/22/20 14:45 09/29/20 14:44 09/22/20 22:19 Assessment/Plan Assessment/Plan Progress Note Subjective ROS Limited/Unobtainable: No Allergies: Coded Allergies: AMOXICILLIN (Verified Allergy, Mild, RASH HIVES, 09/29/13) ERYTHROMYCIN BASE (Unverified Allergy, Unknown, 10/13/17) IODINE (Verified Allergy, Unknown, 09/29/13) PENICILLINS (Verified Allergy, Unknown, RASH HIVES, 09/29/13) All Systems: reviewed and negative except above Subjective care noted some sob but near baseline dry cough on oxygen on diuretics skin care noted Objective Vital Signs noted Objective WDWN NAD reduced breath sounds bilaterally without rhonchi or wheeze [id number] without MRG NABS nontender no HSM no CCE nonfocal Laboratory Tests noted Medications noted Assessment/Plan Assessment/Plan ASSESSMENT: Chronic respiratory failure COPD exacerbation and facial cellulitis. diabetes, hypertension, chronic hypoxemia chronic debility PLAN: care noted IV antibiotics IV steroids as is monitor blood sugars facial care respiratory care as is home meds supportive care oxygen therapy and monitor ABG PRN prognosis guarded impression, plan, and exam edited and reviewed in detail care discussed with RN order for DME for new o2 concentrator and nebulizer done Werner Crump MD Sep 23, 2020 15:23
[2020-09-23 16:00] VITALS: BP 160/84
[2020-09-23 20:00] VITALS: BP 156/82
[2020-09-23] MEDS: Flonase Nasal Inhaler 16gm NASAL SCH (20:55)
[2020-09-23] MEDS: Miconazole Vag Cr 45gm Tube (100mg per applicator) VAGIN SCH (20:56)
[2020-09-24] VITALS (7 sets, daily range): BP systolic 123–153; BP diastolic 60–96
[2020-09-24] MEDS: Levalbuterol Inh UD 1.25mg/0.5ml HHN SCH ×2 (02:36→03:00)
--- NOTE | 2020-09-24 03:00 | Cardiology Progress Note ---
Subjective DATE OF SERVICE: Sep 23, 2020 Less congestion and SOB. No CP. C/O joint pains. Facial swelling improved Still anxious at times with manic features. Covid 19 swab negative Objective Last 24 Hour Vital Signs Date Time Temp Pulse Resp B/P (MAP) Pulse Ox O2 Delivery O2 Flow Rate FiO2 09/24/20 02:37 99 18 100 35 09/24/20 01:29 97 20 100 35 09/24/20 00:14 97.3 09/24/20 00:00 97.3 86 18 151/81 (104) 98 09/23/20 23:27 100 20 100 Nasal Cannula 2.0 28 97 20 98 09/23/20 21:01 Nasal Cannula 3.0 09/23/20 20:00 97.5 96 20 156/82 (106) 95 09/23/20 19:57 103 20 100 Nasal Cannula 2.0 28 101 20 98 09/23/20 19:13 96 Nasal Cannula 2.0 28 09/23/20 16:00 98.4 94 20 160/84 (109) 98 09/23/20 15:33 95 20 100 Nasal Cannula 2.0 28 93 20 100 09/23/20 12:00 98.8 94 20 153/78 (103) 98 09/23/20 11:42 105 20 100 Nasal Cannula 2.0 28 95 20 100 09/23/20 10:01 90 134/52 09/23/20 09:00 Nasal Cannula 3.0 09/23/20 08:10 95 Nasal Cannula 2.0 28 09/23/20 08:00 98.6 90 20 134/52 (79) 98 09/23/20 07:45 100 20 100 Nasal Cannula 2.0 28 101 20 100 09/23/20 05:46 101 21 122/74 100 09/23/20 04:00 98.2 91 20 144/90 (108) 95 09/23/20 03:21 101 21 100 Nasal Cannula 2.0 28 99 19 100 ROS: unchanged from 09/18/20 HEENT: normal ENT inspection RHYTHM: NSR, ST, PACs LUNGS: expiratory wheezing, diminished breath sounds CARDIAC: normal rate, regular rhythm, normal S1 and S2, gallop/S4 ABDOMEN: normal bowel sounds, non tender, soft, no organomegaly, other - obese EXTREMITIES: +1 edema Laboratory Tests Test 09/23/20 08:50 09/23/20 20:35 09/23/20 20:54 White Blood Count 13.7 K/UL (4.8-10.8) H Red Blood Count 3.65 M/UL (4.20-5.40) L Hemoglobin 10.5 G/DL (12.0-16.0) L Hematocrit 31.4 % (37.0-47.0) L Mean Corpuscular Volume 86 FL (80-99) Mean Corpuscular Hemoglobin 28.8 PG (27.0-31.0) Mean Corpuscular Hemoglobin Concent 33.5 G/DL (32.0-36.0) Red Cell Distribution Width 14.4 % (11.6-14.8) Platelet Count 315 K/UL (150-450) Mean Platelet Volume 8.1 FL (6.5-10.1) Neutrophils (%) (Auto) 69.8 % (45.0-75.0) Lymphocytes (%) (Auto) 23.9 % (20.0-45.0) Monocytes (%) (Auto) 4.6 % (1.0-10.0) Eosinophils (%) (Auto) 0.0 % (0.0-3.0) Basophils (%) (Auto) 1.7 % (0.0-2.0) Sodium Level 138 MMOL/L (136-145) Potassium Level 4.2 MMOL/L (3.5-5.1) Chloride Level 99 MMOL/L (98-107) Carbon Dioxide Level 34 MMOL/L (21-32) H Anion Gap 5 mmol/L (5-15) Blood Urea Nitrogen 24 mg/dL (7-18) H Creatinine 1.0 MG/DL (0.55-1.30) Estimat Glomerular Filtration Rate > 60 mL/min (>60) Glucose Level 282 MG/DL (74-106) H Calcium Level 9.3 MG/DL (8.5-10.1) Magnesium Level 1.9 MG/DL (1.8-2.4) Total Bilirubin 0.2 MG/DL (0.2-1.0) Aspartate Amino Transf (AST/SGOT) 15 U/L (15-37) Alanine Aminotransferase (ALT/SGPT) 21 U/L (12-78) Alkaline Phosphatase 80 U/L (46-116) Pro-B-Type Natriuretic Peptide 150 pg/mL (0-125) H Total Protein 7.6 G/DL (6.4-8.2) Albumin 3.4 G/DL (3.4-5.0) Globulin 4.2 g/dL Albumin/Globulin Ratio 0.8 (1.0-2.7) L Vancomycin Level Trough 11.0 ug/mL (5.0-12.0) POC Whole Blood Glucose Pending Assessment/Plan Assessment/Plan COPD exacerbation with hypoxia Acute bronchitis Covid 19 PCR negative Ac/chr diastolic CHF with decreasing BNP now. Hx breast CA Paroxysmal atrial ectopy Hypertensive heart disease Sinus tachycardia UTI - K.pn (multi-drug resistant) Steroids tapered off. O2 suppl Anti-coagulation Abx Diuresis based on clinical parameters; trend BNP. Anticipate oral dose soon. Titrate antiHTN regimen Limit beta agonist use PT/OT Will need IV antibiotics. Werner Martinez MD Sep 24, 2020 03:00
[2020-09-24] MEDS: NovoLOG Insulin Flexpen SUBQ SCH ×4 (06:17→22:41)
[2020-09-24] MEDS: LORazepam 1mg tab ORAL PRN ×2 (06:23→16:01)
[2020-09-24] MEDS: Vitamin D 1000 units Tab ORAL SCH (08:35)
[2020-09-24] MEDS: Ascorbic Acid 500mg tab ORAL SCH (08:35)
[2020-09-24] MEDS: Nitrofurantoin Macrocrystal 50mg cap ORAL SCH ×2 (08:35→22:37)
[2020-09-24] MEDS: Vitamin B Complex Tab ORAL SCH (08:35)
[2020-09-24] MEDS: Sertraline 100mg tab ORAL SCH (08:36)
[2020-09-24] MEDS: Anastrazole 1mg tab ORAL SCH (08:36)
[2020-09-24] MEDS: Solu-MEDROL 40mg Inj IVP SCH ×3 (08:36→22:36)
[2020-09-24] MEDS: Heparin 5000 units/ml inj SUBQ SCH ×2 (08:37→22:37)
[2020-09-24] MEDS: HydrOXYzine 50mg tab ORAL PRN ×3 (08:56→23:05)
[2020-09-24] MEDS: Nystatin Susp 500,000 units/5ml ORAL SCH ×4 (08:56→22:35)
--- NOTE | 2020-09-24 09:01 | General Progress Note ---
Subjective ROS Limited/Unobtainable: No Constitutional: Reports: malaise, weakness HEENT: Reports: no symptoms Cardiovascular: Reports: no symptoms Respiratory: Reports: no symptoms Gastrointestinal/Abdominal: Reports: no symptoms Genitourinary: Reports: no symptoms Neurologic/Psychiatric: Reports: anxiety, depressed, emotional problems Endocrine: Reports: no symptoms Hematologic/Lymphatic: Reports: no symptoms Allergies: Coded Allergies: AMOXICILLIN (Verified Allergy, Mild, RASH HIVES, 09/29/13) ERYTHROMYCIN BASE (Unverified Allergy, Unknown, 10/13/17) IODINE (Verified Allergy, Unknown, 09/29/13) PENICILLINS (Verified Allergy, Unknown, RASH HIVES, 09/29/13) All Systems: reviewed and negative except above Subjective no new complaints. no chest pain or sob. facial rash improving. abd normal ua and culture. no fever or chills. stable sob. on o2. denies cough Objective Last 24 Hour Vital Signs Date Time Temp Pulse Resp B/P (MAP) Pulse Ox O2 Delivery O2 Flow Rate FiO2 09/24/20 08:00 97.7 107 19 152/60 (90) 94 09/24/20 06:53 92 18 149/82 94 09/24/20 06:23 93 20 149/82 94 09/24/20 04:00 97.6 94 20 153/79 (103) 96 09/24/20 03:37 95 20 100 Nasal Cannula 2.0 28 92 20 98 09/24/20 03:09 161/89 09/24/20 02:37 99 18 100 35 09/24/20 01:29 97 20 100 35 09/24/20 00:14 97.3 09/24/20 00:00 97.3 86 18 151/81 (104) 98 09/23/20 23:27 100 20 100 Nasal Cannula 2.0 28 97 20 98 09/23/20 21:01 Nasal Cannula 3.0 09/23/20 20:00 97.5 96 20 156/82 (106) 95 09/23/20 19:57 103 20 100 Nasal Cannula 2.0 28 101 20 98 09/23/20 19:13 96 Nasal Cannula 2.0 28 09/23/20 16:00 98.4 94 20 160/84 (109) 98 09/23/20 15:33 95 20 100 Nasal Cannula 2.0 28 93 20 100 09/23/20 12:00 98.8 94 20 153/78 (103) 98 09/23/20 11:42 105 20 100 Nasal Cannula 2.0 28 95 20 100 09/23/20 10:01 90 134/52 09/23/20 09:00 Nasal Cannula 3.0 Intake and Output 09/23/20 09/24/20 19:00 07:00 Intake Total 280 ml 1635.000 ml Balance 280 ml 1635.000 ml Intake Oral 280 ml 1360 ml IV Total 275.000 ml # Voids 3 # Bowel Movements 1 Laboratory Tests 09/23/20 20:35: Vancomycin Level Trough 11.0 09/23/20 20:54: POC Whole Blood Glucose [Pending] 09/24/20 05:31: POC Whole Blood Glucose 364H Height (Feet): 5 Height (Inches): 1.00 Weight (Pounds): 210 Objective General Appearance: WD/WN, alert, mild distress EENT: PERRL/EOMI, normal ENT inspection Neck: non-tender, normal alignment Cardiovascular: normal peripheral pulses, normal rate, regular rhythm Respiratory/Chest: chest wall non-tender, lungs clear, no respiratory distress, no accessory muscle use, expiratory wheezing Abdomen: normal bowel sounds, non tender, soft, no organomegaly Edema: no edema noted Arm (L), no edema noted Arm (R) 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: 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 II-XII grossly normal, no motor/sensory deficits, alert, oriented x 3, responsive, normal mood/affect Assessment/Plan Problem List: (1) Facial cellulitis ICD Codes: L03.211 - Cellulitis of face SNOMED: 758364549 (2) COPD exacerbation ICD Codes: J44.1 - COPD exacerbation SNOMED: 606877115 (3) Toxic metabolic encephalopathy ICD Codes: G92 - Toxic encephalopathy SNOMED: 537883064 (4) Hypertension, malignant ICD Codes: I10 - Hypertension, malignant SNOMED: 87955089 (5) Diabetes mellitus ICD Codes: E11.9 - Diabetes mellitus SNOMED: 30692207 Status: stable, progressing Assessment/Plan: monitor off iv steroids resp rx o2 iv abx completed id eval re: esbl uti psych rx Monitor chest x-ray Monitor oxygen saturations Accu-Cheks with sliding scale As needed IV diuretic therapy IV antibiotics for facial cellulitis Anxiolytics and psych treatment xray shoulders and hands Uomoto,Floyd M. MD Sep 24, 2020 09:01
--- NOTE | 2020-09-24 16:06 | Pulmonology Progress Note ---
Subjective ROS Limited/Unobtainable: No Allergies: Coded Allergies: AMOXICILLIN (Verified Allergy, Mild, RASH HIVES, 09/29/13) ERYTHROMYCIN BASE (Unverified Allergy, Unknown, 10/13/17) IODINE (Verified Allergy, Unknown, 09/29/13) PENICILLINS (Verified Allergy, Unknown, RASH HIVES, 09/29/13) All Systems: reviewed and negative except above Objective Last 24 Hour Vital Signs Date Time Temp Pulse Resp B/P (MAP) Pulse Ox O2 Delivery O2 Flow Rate FiO2 09/24/20 16:01 100 19 123/96 99 09/24/20 14:43 97.7 09/24/20 12:00 97.7 100 19 123/96 (105) 99 09/24/20 10:42 98 Nasal Cannula 2.0 28 09/24/20 09:27 97.7 09/24/20 09:00 Nasal Cannula 3.0 09/24/20 08:58 107 152/60 09/24/20 08:00 97.7 107 19 152/60 (90) 94 09/24/20 06:53 92 18 149/82 94 09/24/20 06:23 93 20 149/82 94 09/24/20 04:00 97.6 94 20 153/79 (103) 96 09/24/20 03:37 95 20 100 Nasal Cannula 2.0 28 92 20 98 09/24/20 03:09 161/89 09/24/20 02:37 99 18 100 35 09/24/20 01:29 97 20 100 35 09/24/20 00:14 97.3 09/24/20 00:00 97.3 86 18 151/81 (104) 98 09/23/20 23:27 100 20 100 Nasal Cannula 2.0 28 97 20 98 09/23/20 21:01 Nasal Cannula 3.0 09/23/20 20:00 97.5 96 20 156/82 (106) 95 09/23/20 19:57 103 20 100 Nasal Cannula 2.0 28 101 20 98 09/23/20 19:13 96 Nasal Cannula 2.0 28 Intake and Output 09/23/20 09/24/20 18:59 06:59 Intake Total 280 ml 1635.000 ml Balance 280 ml 1635.000 ml Intake Oral 280 ml 1360 ml IV Total 275.000 ml # Voids 3 # Bowel Movements 1 Laboratory Tests 09/23/20 20:35: Vancomycin Level Trough 11.0 09/23/20 20:54: POC Whole Blood Glucose [Pending] 09/24/20 05:31: POC Whole Blood Glucose 364H 09/24/20 11:49: POC Whole Blood Glucose 275H Current Medications Medications (Trade) Dose Ordered Sig/Sera Route PRN Reason Start Time Stop Time Status Last Admin Dose Admin Acetaminophen (Tylenol) 650 mg Q4H PRN ORAL Mild Pain (Pain Scale 1-3) 09/18/20 23:45 10/18/20 23:44 09/24/20 14:13 Amlodipine Besylate (Norvasc) 5 mg DAILY ORAL 09/19/20 09:00 10/19/20 08:59 09/24/20 08:58 Anastrozole (Arimidex) 1 mg DAILY ORAL 09/19/20 09:00 10/19/20 08:59 09/24/20 08:36 Ascorbic Acid (Vitamin C) 500 mg DAILY ORAL 09/21/20 09:00 10/21/20 08:59 09/24/20 08:35 Clonidine HCl (Catapres Tab) 0.1 mg Q4H PRN ORAL SBP > 160 09/19/20 17:15 12/18/20 17:14 09/24/20 03:09 Dextrose (Dextrose 50%) 25 ml Q30M PRN IV Hypoglycemia 09/18/20 19:00 12/17/20 18:59 Dextrose (Dextrose 50%) 50 ml Q30M PRN IV Hypoglycemia 09/18/20 19:00 12/17/20 18:59 Fluticasone Propionate (Flonase) 1 spray QHS NASAL 09/18/20 21:00 10/18/20 20:59 09/23/20 20:55 Furosemide (Lasix) 20 mg DAILY IV 09/20/20 09:00 10/20/20 08:59 09/24/20 08:35 Heparin Sodium (Porcine) (Heparin 5000 units/ml) 5,000 units EVERY 12 HOURS SUBQ 09/18/20 21:00 11/02/20 20:59 09/24/20 08:37 Hydroxyzine HCl (Atarax) 50 mg Q4H PRN ORAL Itching 09/19/20 06:15 10/19/20 06:14 09/24/20 14:12 Insulin Aspart (NovoLOG) BEFORE MEALS AND HS SUBQ 09/18/20 21:00 12/17/20 20:59 09/24/20 13:52 Lorazepam (Ativan) 1 mg Q6H PRN ORAL For Anxiety 09/20/20 15:15 09/27/20 15:14 09/24/20 16:01 Methylprednisolone Sodium Succinate (Solu-MEDROL) 40 mg EVERY 12 HOURS IVP 09/20/20 21:00 12/17/20 20:59 09/24/20 08:36 Miconazole Nitrate (Monistat) 1 applic BEDTIME VAGIN 09/18/20 21:00 09/24/20 21:01 09/23/20 20:56 Nitrofurantoin (Macrodantin) 100 mg Q12HR ORAL 09/22/20 21:00 09/27/20 20:59 09/24/20 08:35 Nystatin (Nystatin) 4 ml FOUR TIMES A DAY ORAL 09/18/20 21:00 09/25/20 20:59 09/24/20 13:50 Ondansetron HCl (Zofran) 4 mg Q6H PRN IVP Nausea & Vomiting 09/18/20 19:00 10/18/20 18:59 09/23/20 18:12 Pantoprazole (Protonix) 40 mg DAILY ORAL 09/19/20 09:00 10/19/20 08:59 09/24/20 08:35 Potassium Chloride (K-Dur) 20 meq DAILY ORAL 09/20/20 09:00 12/19/20 08:59 09/24/20 08:36 Sertraline HCl (Zoloft) 100 mg DAILY ORAL 09/19/20 09:00 10/19/20 08:59 09/24/20 08:36 [facility]comycin [facility] ([facility]) 1 ea DAILY PRN MISC Per rx protocol 09/18/20 19:00 10/18/20 18:59 Vitamin B Complex (Vitamin B Complex) 1 tab DAILY ORAL 09/21/20 09:00 12/20/20 08:59 09/24/20 08:35 Vitamin D (Vitamin D) 1,000 intlu DAILY ORAL 09/20/20 19:15 10/20/20 19:14 09/24/20 08:35 Zolpidem Tartrate (Ambien) 5 mg HSPRN PRN ORAL Insomnia 09/22/20 14:45 09/29/20 14:44 09/22/20 22:19 Assessment/Plan Assessment/Plan Progress Note Subjective ROS Limited/Unobtainable: No Allergies: Coded Allergies: AMOXICILLIN (Verified Allergy, Mild, RASH HIVES, 09/29/13) ERYTHROMYCIN BASE (Unverified Allergy, Unknown, 10/13/17) IODINE (Verified Allergy, Unknown, 09/29/13) PENICILLINS (Verified Allergy, Unknown, RASH HIVES, 09/29/13) All Systems: reviewed and negative except above Subjective care noted some sob but near baseline dry cough on oxygen on diuretics skin care noted Objective Vital Signs noted Objective WDWN NAD reduced breath sounds bilaterally without rhonchi or wheeze [id number] without MRG NABS nontender no HSM no CCE nonfocal Laboratory Tests noted Medications noted Assessment/Plan Assessment/Plan ASSESSMENT: Chronic respiratory failure COPD exacerbation and facial cellulitis. diabetes, hypertension, chronic hypoxemia chronic debility PLAN: care noted IV antibiotics IV steroids wean monitor blood sugars facial care respiratory care as is home meds supportive care oxygen therapy and monitor ABG PRN prognosis guarded impression, plan, and exam edited and reviewed in detail care discussed with RN order for DME for new o2 concentrator and nebulizer done Werner Crump MD Sep 24, 2020 16:06
[2020-09-24] MEDS: Miconazole Vag Cr 45gm Tube (100mg per applicator) VAGIN SCH (22:38)
[2020-09-24] MEDS: Flonase Nasal Inhaler 16gm NASAL SCH (22:39)
[2020-09-25] VITALS: BP 127/101
[2020-09-25] MEDS: Meropenem 500 MG in NS 55 ML IVPB SCH ×2 (00:09→13:02)
--- NOTE | 2020-09-25 01:46 | Cardiology Progress Note ---
Subjective DATE OF SERVICE: Sep 24, 2020 Less congestion and SOB. Facial swelling decreasing. Glucose still elevated on IV steroids No CP. C/O joint pains. Facial swelling improved Still anxious at times with manic features. Covid 19 swab negative Objective Last 24 Hour Vital Signs Date Time Temp Pulse Resp B/P (MAP) Pulse Ox O2 Delivery O2 Flow Rate FiO2 09/25/20 00:00 98.1 89 18 127/101 (110) 100 09/24/20 21:00 98.2 93 18 127/73 (91) 95 09/24/20 21:00 Nasal Cannula 1.0 09/24/20 20:00 98.2 93 18 127/73 (91) 100 09/24/20 20:00 97 Nasal Cannula 2.0 28 09/24/20 16:31 100 19 123/96 99 09/24/20 16:01 100 19 123/96 99 09/24/20 16:00 97.4 98 19 149/85 (106) 95 09/24/20 14:43 97.7 09/24/20 12:00 97.7 100 19 123/96 (105) 99 09/24/20 10:42 98 Nasal Cannula 2.0 28 09/24/20 09:27 97.7 09/24/20 09:00 Nasal Cannula 3.0 09/24/20 08:58 107 152/60 09/24/20 08:00 97.7 107 19 152/60 (90) 94 09/24/20 06:53 92 18 149/82 94 09/24/20 06:23 93 20 149/82 94 09/24/20 04:00 97.6 94 20 153/79 (103) 96 09/24/20 03:37 95 20 100 Nasal Cannula 2.0 28 92 20 98 09/24/20 03:09 161/89 09/24/20 02:37 99 18 100 35 ROS: unchanged from 09/18/20 HEENT: normal ENT inspection RHYTHM: NSR, ST, PACs LUNGS: expiratory wheezing, diminished breath sounds CARDIAC: normal rate, regular rhythm, normal S1 and S2, gallop/S4 ABDOMEN: normal bowel sounds, non tender, soft, no organomegaly, other - obese EXTREMITIES: +1 edema Laboratory Tests Test 09/24/20 05:31 09/24/20 11:49 09/24/20 16:09 POC Whole Blood Glucose 364 MG/DL (74-106) H 275 MG/DL (74-106) H 233 MG/DL (74-106) H Assessment/Plan Assessment/Plan COPD exacerbation with hypoxia Acute bronchitis Covid 19 PCR negative Ac/chr diastolic CHF with decreasing BNP now. Hx breast CA Paroxysmal atrial ectopy Hypertensive heart disease Sinus tachycardia UTI - K.pn (multi-drug resistant) IRDM uncontrolled on steroids Steroids tapering off. O2 suppl Anti-coagulation Abx per ID Diuresis based on clinical parameters; trend BNP. Anticipate oral dose soon. Titrate antiHTN regimen Limit beta agonist use PT/OT Werner Martinez MD Sep 25, 2020 01:46
[2020-09-25] MEDS: NovoLOG Insulin Flexpen SUBQ SCH ×4 (05:53→21:35)
[2020-09-25 08:00] VITALS: BP 130/72
[2020-09-25] MEDS ORDERED: Solu-MEDROL 125mg Inj IVP SCH (08:30)
--- NOTE | 2020-09-25 08:35 | General Progress Note ---
Subjective ROS Limited/Unobtainable: No Constitutional: Reports: malaise, weakness HEENT: Reports: no symptoms Cardiovascular: Reports: no symptoms Respiratory: Reports: cough, shortness of breath Gastrointestinal/Abdominal: Reports: no symptoms Genitourinary: Reports: no symptoms Neurologic/Psychiatric: Reports: no symptoms Endocrine: Reports: no symptoms Hematologic/Lymphatic: Reports: no symptoms Allergies: Coded Allergies: AMOXICILLIN (Verified Allergy, Mild, RASH HIVES, 09/29/13) ERYTHROMYCIN BASE (Unverified Allergy, Unknown, 10/13/17) IODINE (Verified Allergy, Unknown, 09/29/13) PENICILLINS (Verified Allergy, Unknown, RASH HIVES, 09/29/13) All Systems: reviewed and negative except above Subjective c/o sob and chest tightness this am. mild sore throat. no fevers or chills. productive cough- clear white phlegm. Objective Last 24 Hour Vital Signs Date Time Temp Pulse Resp B/P (MAP) Pulse Ox O2 Delivery O2 Flow Rate FiO2 09/25/20 08:01 98.1 09/25/20 05:29 80 17 99 35 09/25/20 01:30 85 18 100 35 09/25/20 00:00 98.1 89 18 127/101 (110) 100 09/24/20 21:00 98.2 93 18 127/73 (91) 95 09/24/20 21:00 Nasal Cannula 1.0 09/24/20 20:00 98.2 93 18 127/73 (91) 100 09/24/20 20:00 97 Nasal Cannula 2.0 28 09/24/20 16:31 100 19 123/96 99 09/24/20 16:01 100 19 123/96 99 09/24/20 16:00 97.4 98 19 149/85 (106) 95 09/24/20 14:43 97.7 09/24/20 12:00 97.7 100 19 123/96 (105) 99 09/24/20 10:42 98 Nasal Cannula 2.0 28 09/24/20 09:27 97.7 09/24/20 09:00 Nasal Cannula 3.0 09/24/20 08:58 107 152/60 Intake and Output 09/24/20 09/25/20 19:00 07:00 Intake Total 1560 ml Balance 1560 ml Intake Oral 1560 ml # Voids 7 # Bowel Movements 1 Laboratory Tests 09/24/20 11:49: POC Whole Blood Glucose 275H 09/24/20 16:09: POC Whole Blood Glucose 233H Height (Feet): 5 Height (Inches): 1.00 Weight (Pounds): 210 Objective General Appearance: WD/WN, alert, mild distress EENT: PERRL/EOMI, normal ENT inspection Neck: non-tender, normal alignment Cardiovascular: normal peripheral pulses, normal rate, regular rhythm Respiratory/Chest: chest wall non-tender, lungs clear, no respiratory distress, no accessory muscle use, +expiratory wheezing Abdomen: normal bowel sounds, non tender, soft, no organomegaly Edema: no edema noted Arm (L), no edema noted Arm (R) 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 grossly normal, no motor/sensory deficits, alert, oriented x 3, responsive, normal mood/affect Assessment/Plan Problem List: (1) Facial cellulitis ICD Codes: L03.211 - Cellulitis of face SNOMED: 876875929 (2) COPD exacerbation ICD Codes: J44.1 - COPD exacerbation SNOMED: 595137102 (3) Toxic metabolic encephalopathy ICD Codes: G92 - Toxic encephalopathy SNOMED: 836595549 (4) Hypertension, malignant ICD Codes: I10 - Hypertension, malignant SNOMED: 89279581 (5) Diabetes mellitus ICD Codes: E11.9 - Diabetes mellitus SNOMED: 80276139 Status: stable, progressing Assessment/Plan: iv solumderol x 1 re-ordered resp rx added guaifenesin o2 as needed psych rx ID eval regarding esbl uti monitor bs cont bp rx dvt/stress ulcer prophylaxis Floyd Downey MD Sep 25, 2020 08:35
--- NOTE | 2020-09-25 09:07 | Pulmonology Progress Note ---
Subjective ROS Limited/Unobtainable: No Allergies: Coded Allergies: AMOXICILLIN (Verified Allergy, Mild, RASH HIVES, 09/29/13) ERYTHROMYCIN BASE (Unverified Allergy, Unknown, 10/13/17) IODINE (Verified Allergy, Unknown, 09/29/13) PENICILLINS (Verified Allergy, Unknown, RASH HIVES, 09/29/13) All Systems: reviewed and negative except above Subjective care noted +sob dry cough on oxygen on diuretics skin care noted UTI+ Objective Last 24 Hour Vital Signs Date Time Temp Pulse Resp B/P (MAP) Pulse Ox O2 Delivery O2 Flow Rate FiO2 09/25/20 08:01 98.1 09/25/20 08:00 97.2 89 19 130/72 (91) 99 09/25/20 05:29 80 17 99 35 09/25/20 01:30 85 18 100 35 09/25/20 00:00 98.1 89 18 127/101 (110) 100 09/24/20 21:00 98.2 93 18 127/73 (91) 95 09/24/20 21:00 Nasal Cannula 1.0 09/24/20 20:00 98.2 93 18 127/73 (91) 100 09/24/20 20:00 97 Nasal Cannula 2.0 28 09/24/20 16:31 100 19 123/96 99 09/24/20 16:01 100 19 123/96 99 09/24/20 16:00 97.4 98 19 149/85 (106) 95 09/24/20 14:43 97.7 09/24/20 12:00 97.7 100 19 123/96 (105) 99 09/24/20 10:42 98 Nasal Cannula 2.0 28 09/24/20 09:27 97.7 Intake and Output 09/24/20 09/25/20 19:02 07:02 Intake Total 1560 ml Balance 1560 ml Intake Oral 1560 ml # Voids 7 # Bowel Movements 1 Objective WDWN NAD reduced breath sounds bilaterally without rhonchi or wheeze [id number] without MRG NABS nontender no HSM no CCE nonfocal dyspneic Laboratory Tests 09/24/20 11:49: POC Whole Blood Glucose 275H 09/24/20 16:09: POC Whole Blood Glucose 233H Current Medications Medications (Trade) Dose Ordered Sig/Sera Route PRN Reason Start Time Stop Time Status Last Admin Dose Admin Acetaminophen (Tylenol) 650 mg Q4H PRN ORAL Mild Pain (Pain Scale 1-3) 09/18/20 23:45 10/18/20 23:44 09/25/20 07:31 Albuterol/ Ipratropium (Albuterol/ Ipratropium) 3 ml Q4HRT HHN 09/25/20 11:00 09/30/20 10:59 Amlodipine Besylate (Norvasc) 5 mg DAILY ORAL 09/19/20 09:00 10/19/20 08:59 09/24/20 08:58 Anastrozole (Arimidex) 1 mg DAILY ORAL 09/19/20 09:00 10/19/20 08:59 09/24/20 08:36 Ascorbic Acid (Vitamin C) 500 mg DAILY ORAL 09/21/20 09:00 10/21/20 08:59 09/24/20 08:35 Clonidine HCl (Catapres Tab) 0.1 mg Q4H PRN ORAL SBP > 160 09/19/20 17:15 12/18/20 17:14 09/24/20 03:09 Dextrose (Dextrose 50%) 25 ml Q30M PRN IV Hypoglycemia 09/18/20 19:00 12/17/20 18:59 Dextrose (Dextrose 50%) 50 ml Q30M PRN IV Hypoglycemia 09/18/20 19:00 12/17/20 18:59 Fluticasone Propionate (Flonase) 1 spray QHS NASAL 09/18/20 21:00 10/18/20 20:59 09/24/20 22:39 Furosemide (Lasix) 20 mg DAILY IV 09/20/20 09:00 10/20/20 08:59 09/24/20 08:35 Guaifenesin (Mucinex ER) 600 mg TWICE A DAY ORAL 09/25/20 09:00 12/24/20 08:59 Heparin Sodium (Porcine) (Heparin 5000 units/ml) 5,000 units EVERY 12 HOURS SUBQ 09/18/20 21:00 11/02/20 20:59 09/24/20 22:37 Hydroxyzine HCl (Atarax) 50 mg Q4H PRN ORAL Itching 09/19/20 06:15 10/19/20 06:14 12/13/20 23:05 Insulin Aspart (NovoLOG) BEFORE MEALS AND HS SUBQ 09/18/20 21:00 12/17/20 20:59 09/25/20 05:53 Lorazepam (Ativan) 1 mg Q6H PRN ORAL For Anxiety 09/20/20 15:15 09/27/20 15:14 09/24/20 16:01 Methylprednisolone Sodium Succinate (Solu-MEDROL) 30 mg EVERY 12 HOURS IVP 09/24/20 21:00 12/17/20 20:59 Methylprednisolone Sodium Succinate (Solu-MEDROL) 60 mg ONCE IVP 09/25/20 08:30 09/25/20 10:30 Nitrofurantoin (Macrodantin) 100 mg Q12HR ORAL 09/22/20 21:00 09/27/20 20:59 09/24/20 22:37 Nystatin (Nystatin) 4 ml FOUR TIMES A DAY ORAL 09/18/20 21:00 09/25/20 20:59 09/24/20 22:35 Ondansetron HCl (Zofran) 4 mg Q6H PRN IVP Nausea & Vomiting 09/18/20 19:00 10/18/20 18:59 09/23/20 18:12 Pantoprazole (Protonix) 40 mg DAILY ORAL 09/19/20 09:00 10/19/20 08:59 09/24/20 08:35 Potassium Chloride (K-Dur) 20 meq DAILY ORAL 09/20/20 09:00 12/19/20 08:59 09/24/20 08:36 Sertraline HCl (Zoloft) 100 mg DAILY ORAL 09/19/20 09:00 10/19/20 08:59 09/24/20 08:36 [facility]com[facility] 1 ea DAILY PRN MISC Per rx protocol 09/18/20 19:00 10/18/20 18:59 Vitamin B Complex (Vitamin B Complex) 1 tab DAILY ORAL 09/21/20 09:00 12/20/20 08:59 09/24/20 08:35 Vitamin D (Vitamin D) 1,000 intlu DAILY ORAL 09/20/20 19:15 10/20/20 19:14 09/24/20 08:35 Zolpidem Tartrate (Ambien) 5 mg HSPRN PRN ORAL Insomnia 09/22/20 14:45 12/18/20 14:44 09/22/20 22:19 Assessment/Plan Assessment/Plan ASSESSMENT: Chronic respiratory failure COPD exacerbation and facial cellulitis. diabetes, hypertension, chronic hypoxemia chronic debility PLAN: DME for new o2 concentrator and nebulizer; notes it is not working care noted IV antibiotics IV steroids noted monitor blood sugars facial care respiratory care as is home meds supportive care oxygen therapy and monitor ABG PRN and avoid sedation prognosis guarded impression, plan, and exam edited and reviewed in detail care discussed with Froilan Clarke MD Sep 25, 2020 09:07
[2020-09-25] MEDS: Vitamin B Complex Tab ORAL SCH (09:18)
[2020-09-25] MEDS: Sertraline 100mg tab ORAL SCH (09:18)
[2020-09-25] MEDS: Nitrofurantoin Macrocrystal 50mg cap ORAL SCH (09:18)
[2020-09-25] MEDS: Anastrazole 1mg tab ORAL SCH (09:18)
[2020-09-25] MEDS: Ascorbic Acid 500mg tab ORAL SCH (09:18)
[2020-09-25] MEDS: LORazepam 1mg tab ORAL PRN ×2 (09:18→21:40)
[2020-09-25] MEDS: Solu-MEDROL 40mg Inj IVP SCH ×2 (09:18→09:33)
[2020-09-25] MEDS: guaiFENesin ER 600mg tab ORAL SCH ×2 (09:18→17:22)
[2020-09-25] MEDS: Vitamin D 1000 units Tab ORAL SCH (09:19)
[2020-09-25] MEDS: Nystatin Susp 500,000 units/5ml ORAL SCH ×3 (09:19→17:21)
[2020-09-25] MEDS: Heparin 5000 units/ml inj SUBQ SCH ×2 (09:20→21:35)
[2020-09-25] MEDS: HydrOXYzine 50mg tab ORAL PRN ×3 (09:25→21:40)
[2020-09-25] MEDS: Albuterol/Ipratropium 3ml neb HHN SCH ×2 (11:00→15:00)
[2020-09-25 12:00] VITALS: BP 130/76
--- NOTE | 2020-09-25 13:01 | Consultation ---
DATE OF CONSULTATION: 09/25/2020 INFECTIOUS DISEASES CONSULTATION CONSULTING PHYSICIAN: Lo Delcid MD. REFERRING PHYSICIAN: Floyd Downey MD. REASON FOR CONSULTATION: Urinary tract infection. HISTORY OF PRESENTING ILLNESS: This is a 60-year-old lady with history of diabetes, hypertension, breast cancer, congestive heart failure, who comes in with shortness of breath along with cough and fever. She was found to have an urinary tract infection and an Infectious Diseases consultation has been obtained for antibiotics. She was also found to have a facial cellulitis. PAST MEDICAL HISTORY: 1. History of diabetes. 2. Hypertension. 3. Breast cancer. 4. Congestive heart failure. 5. COPD. 6. History of mastectomy. SOCIAL HISTORY: She used to be a smoker. She does not smoke anymore. She used to drink alcohol. She does not drink anymore. She used to use cocaine. She does not use any more. FAMILY HISTORY: Noncontributory. REVIEW OF SYSTEMS: RESPIRATORY: She has fever and chills. She has cough. She has shortness of breath. No chest pain. CARDIAC: No chest pain. No palpitation. No dizziness. No syncope. GASTROINTESTINAL: No nausea. No vomiting. No abdominal pain or diarrhea. MEDICATIONS: As an inpatient, she is on albuterol ipratropium, guaifenesin, Solu-Medrol, nitrofurantoin, Ambien, ascorbic acid, vitamin B complex, vitamin D, lorazepam, potassium, Lasix, clonidine, sertraline, Protonix, Arimidex, amlodipine, hydroxyzine, Tylenol, subcutaneous heparin, insulin, nystatin, Flonase, Zofran, IV vancomycin. ALLERGIES: 1. Amoxicillin. 2. Erythromycin. 3. Iodine. 4. Penicillin. PHYSICAL EXAMINATION: VITAL SIGNS: Temperature of 98.1, T-max of 98.2, pulse of 89, respiratory rate of 19, blood pressure 130/72, O2 saturation of 99% on 1 liter of oxygen. HEENT: Pupils are equally reactive to light and accommodation. There is facial erythema and swelling. NECK: Supple. No adenopathy. No JVD. CARDIOVASCULAR: Regular rate and rhythm. No murmurs. LUNGS: Clear to auscultation bilaterally. No crackles. No wheezes. ABDOMEN: Soft, nontender. No organomegaly. EXTREMITIES: No cyanosis, no clubbing, no edema. LABORATORY DATA: White count 13.7, hemoglobin 10.5, hematocrit 31.4, MCV 86, platelet count of 315. Sodium 138, potassium 4.2, chloride 99, bicarb 34, BUN 24, creatinine 1, glucose 282, calcium 9.3, magnesium 1.9. Total bilirubin 0.2. AST 15, ALT 21, alkaline phosphatase 80. Beta natriuretic peptide 150, total protein 7.6, albumin 3.4. Urine culture is growing Klebsiella, which is an ESBL susceptible to piperacillin-tazobactam, meropenem, and gentamicin. COVID-19 test on 09/18/2020 was negative. Chest x-ray is showing interstitial edema without consolidation. ASSESSMENT: This is a 60-year-old lady with history of diabetes, hypertension, breast cancer, congestive heart failure, COPD, who comes in with fever, cough and shortness of breath and was found to have. 1. Klebsiella urinary tract infection. 2. Facial cellulitis. 3. COPD exacerbation. PLAN: 1. Discontinue IV vancomycin. 2. Discontinue nitrofurantoin. 3. We will start the patient on meropenem. 4. We will follow up cultures and adjust antibiotics accordingly. I would like to thank, Dr. Downey, for this consultation. Lo Delcid M.D. DR: CRISTIAN JOB#: [id number] CC: Floyd Downey MD.
[2020-09-25 16:00] VITALS: BP 151/86
[2020-09-25] MEDS: Lactobacillus-GG tablet ORAL SCH (17:35)
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
[2020-09-25 20:00] VITALS: BP 141/76
[2020-09-25] MEDS: Flonase Nasal Inhaler 16gm NASAL SCH (21:17)
[2020-09-26] VITALS: BP 128/91
--- NOTE | 2020-09-26 00:20 | Cardiology Progress Note ---
Subjective DATE OF SERVICE: Sep 25, 2020 Episodic wheezing and congestion. Facial swelling decreasing. Glucose still elevated on IV steroids No CP. Urine Culture positive for MDR pathogen Still anxious at times with manic features. Covid 19 swab negative Objective Last 24 Hour Vital Signs Date Time Temp Pulse Resp B/P (MAP) Pulse Ox O2 Delivery O2 Flow Rate FiO2 09/25/20 22:10 92 18 143/68 97 09/25/20 21:40 95 18 141/74 95 09/25/20 19:45 99 Nasal Cannula 2.0 28 09/25/20 17:12 98.4 09/25/20 16:00 98.4 84 18 151/86 (107) 94 09/25/20 12:00 98.0 90 19 130/76 (94) 95 09/25/20 09:48 89 19 130/72 99 09/25/20 09:18 89 19 130/72 99 09/25/20 09:18 89 130/72 09/25/20 09:00 Nasal Cannula 1.0 09/25/20 08:01 98.1 09/25/20 08:00 97.2 89 19 130/72 (91) 99 09/25/20 07:02 98 Nasal Cannula 2.0 28 09/25/20 05:29 80 17 99 35 09/25/20 01:30 85 18 100 35 ROS: unchanged from 09/18/20 HEENT: normal ENT inspection RHYTHM: NSR, ST, PACs LUNGS: diminished breath sounds, bilateral rhonchi, coarse breath sounds CARDIAC: normal rate, regular rhythm, normal S1 and S2, gallop/S4 ABDOMEN: normal bowel sounds, non tender, soft, no organomegaly, other - obese EXTREMITIES: +1 edema Laboratory Tests Test 09/25/20 05:46 09/25/20 11:38 09/25/20 16:30 POC Whole Blood Glucose 174 MG/DL (74-106) H 272 MG/DL (74-106) H 439 MG/DL (74-106) H Assessment/Plan Assessment/Plan COPD exacerbation with hypoxia Acute bronchitis Covid 19 PCR negative Ac/chr diastolic CHF with decreasing BNP now. Hx breast CA Paroxysmal atrial ectopy Hypertensive heart disease Sinus tachycardia UTI - K.pn (multi-drug resistant) IRDM uncontrolled on steroids Steroids tapering to maintenance oral dosing. O2 suppl Anti-coagulation IV Abx per ID Diuresis based on clinical parameters; trend BNP. Anticipate oral dose soon. Titrate antiHTN regimen Limit beta agonist use PT/OT Werner Martinez MD Sep 26, 2020 00:20
[2020-09-26] MEDS: Zolpidem 5mg tab ORAL PRN (01:01)
[2020-09-26 04:00] VITALS: BP 150/81
[2020-09-26] MEDS: Meropenem 500 MG in NS 55 ML IVPB SCH ×3 (06:09→22:00)
[2020-09-26] MEDS: NovoLOG Insulin Flexpen SUBQ SCH ×4 (06:56→22:00)
[2020-09-26] MEDS: Albuterol/Ipratropium 3ml neb HHN SCH ×5 (07:00→23:08)
[2020-09-26 08:00] VITALS: BP 155/80
[2020-09-26 08:07] LABS: BASOPHILS % (AUTO) 1.9 % (0.0-2.0); EOSINOPHILS % (AUTO) 0.1 % (0.0-3.0); HEMATOCRIT 29.5 % (37.0-47.0); HEMOGLOBIN 9.4 G/DL (12.0-16.0); LYMPHOCYTES % (AUTO) 23.8 % (20.0-45.0); MEAN CORPUSCULAR VOLUME 88 FL (80-99); MONOCYTES % (AUTO) 9.8 % (1.0-10.0); NEUTROPHILS % (AUTO) 64.4 % (45.0-75.0); PLATELET COUNT 292 K/UL (150-450); RED BLOOD COUNT 3.34 M/UL (4.20-5.40); RED CELL DISTRIBUTION WIDTH 13.1 % (11.6-14.8); WHITE BLOOD COUNT 12.4 K/UL (4.8-10.8)
[2020-09-26 08:35] LABS: ALANINE AMINOTRANSFERASE 16 U/L (12-78); ALBUMIN 2.7 G/DL (3.4-5.0); ALBUMIN/GLOBULIN RATIO 0.8 (1.0-2.7); ALKALINE PHOSPHATASE 69 U/L (46-116); ANION GAP 1 mmol/L (5-15); ASPARTATE AMINO TRANSFERASE 10 U/L (15-37); BILIRUBIN,TOTAL 0.1 MG/DL (0.2-1.0); BLOOD UREA NITROGEN 26 mg/dL (7-18); CALCIUM 8.5 MG/DL (8.5-10.1); CARBON DIOXIDE 38 MMOL/L (21-32); CHLORIDE 102 MMOL/L (98-107); CREATININE 0.8 MG/DL (0.55-1.30); POTASSIUM 3.9 MMOL/L (3.5-5.1); SODIUM 141 MMOL/L (136-145)
[2020-09-26] MEDS ORDERED: Solu-MEDROL 40mg Inj IVP SCH (09:00)
[2020-09-26] MEDS: Sertraline 100mg tab ORAL SCH (09:49)
[2020-09-26] MEDS: guaiFENesin ER 600mg tab ORAL SCH ×2 (09:49→17:48)
[2020-09-26] MEDS: Lactobacillus-GG tablet ORAL SCH ×2 (09:49→17:48)
[2020-09-26] MEDS: Anastrazole 1mg tab ORAL SCH (09:50)
[2020-09-26] MEDS: Vitamin D 1000 units Tab ORAL SCH (09:51)
[2020-09-26] MEDS: Vitamin B Complex Tab ORAL SCH (09:51)
[2020-09-26] MEDS: Ascorbic Acid 500mg tab ORAL SCH (09:51)
[2020-09-26] MEDS: Heparin 5000 units/ml inj SUBQ SCH ×2 (09:53→22:00)
[2020-09-26] MEDS: HydrOXYzine 50mg tab ORAL PRN (10:04)
--- NOTE | 2020-09-26 12:06 | Infectious Diseases Prog Note ---
Assessment/Plan Assessment/Plan A: 1. Klebsiella urinary tract infection. 2. Facial cellulitis. 3. COPD exacerbation. 4. DM with hyperglycemia 5 HPN 6. Penicillin allergy PLAN: 1. continue IV meropenem. 2. We will follow up cultures and adjust antibiotics accordingly. Subjective ROS Limited/Unobtainable: Yes Constitutional: Denies: fever Allergies: Coded Allergies: AMOXICILLIN (Verified Allergy, Mild, RASH HIVES, 09/29/13) ERYTHROMYCIN BASE (Unverified Allergy, Unknown, 10/13/17) IODINE (Verified Allergy, Unknown, 09/29/13) PENICILLINS (Verified Allergy, Unknown, RASH HIVES, 09/29/13) Objective Last 24 Hour Vital Signs Date Time Temp Pulse Resp B/P (MAP) Pulse Ox O2 Delivery O2 Flow Rate FiO2 09/26/20 11:54 92 16 98 Nasal Cannula 4.0 36 89 18 09/26/20 10:34 97.8 09/26/20 09:49 99 155/80 09/26/20 09:00 Nasal Cannula 1.0 09/26/20 08:00 97.8 99 18 155/80 (105) 99 09/26/20 07:50 99 Nasal Cannula 4.0 28 09/26/20 04:00 97.9 100 18 150/81 (104) 100 09/26/20 01:45 82 19 98 35 09/26/20 00:00 98.1 97 18 128/91 (103) 94 09/25/20 22:10 92 18 143/68 97 09/25/20 21:40 95 18 141/74 95 09/25/20 21:00 Nasal Cannula 1.0 09/25/20 20:00 97.9 95 18 141/76 (97) 95 09/25/20 19:45 99 Nasal Cannula 2.0 28 09/25/20 17:12 98.4 09/25/20 16:00 98.4 84 18 151/86 (107) 94 Height (Feet): 5 Height (Inches): 1.00 Weight (Pounds): 210 HEENT: mucous membranes moist Respiratory/Chest: lungs clear, other - oxygen by nasal cannula Cardiovascular: normal rate Abdomen: soft, non tender, other - obese Extremities: no edema Neurologic/Psychiatric: other - sleeping Laboratory Tests Test 09/25/20 16:30 09/26/20 07:10 POC Whole Blood Glucose 439 MG/DL (74-106) H White Blood Count 12.4 K/UL (4.8-10.8) H Red Blood Count 3.34 M/UL (4.20-5.40) L Hemoglobin 9.4 G/DL (12.0-16.0) L Hematocrit 29.5 % (37.0-47.0) L Mean Corpuscular Volume 88 FL (80-99) Mean Corpuscular Hemoglobin 28.1 PG (27.0-31.0) Mean Corpuscular Hemoglobin Concent 31.9 G/DL (32.0-36.0) L Red Cell Distribution Width 13.1 % (11.6-14.8) Platelet Count 292 K/UL (150-450) Mean Platelet Volume 7.9 FL (6.5-10.1) Neutrophils (%) (Auto) 64.4 % (45.0-75.0) Lymphocytes (%) (Auto) 23.8 % (20.0-45.0) Monocytes (%) (Auto) 9.8 % (1.0-10.0) Eosinophils (%) (Auto) 0.1 % (0.0-3.0) Basophils (%) (Auto) 1.9 % (0.0-2.0) Sodium Level 141 MMOL/L (136-145) Potassium Level 3.9 MMOL/L (3.5-5.1) Chloride Level 102 MMOL/L (98-107) Carbon Dioxide Level 38 MMOL/L (21-32) H Anion Gap 1 mmol/L (5-15) L Blood Urea Nitrogen 26 mg/dL (7-18) H Creatinine 0.8 MG/DL (0.55-1.30) Estimat Glomerular Filtration Rate > 60 mL/min (>60) Glucose Level 226 MG/DL (74-106) H Calcium Level 8.5 MG/DL (8.5-10.1) Magnesium Level 1.8 MG/DL (1.8-2.4) Total Bilirubin 0.1 MG/DL (0.2-1.0) L Aspartate Amino Transf (AST/SGOT) 10 U/L (15-37) L Alanine Aminotransferase (ALT/SGPT) 16 U/L (12-78) Alkaline Phosphatase 69 U/L (46-116) Pro-B-Type Natriuretic Peptide Pending Total Protein 6.2 G/DL (6.4-8.2) L Albumin 2.7 G/DL (3.4-5.0) L Globulin 3.5 g/dL Albumin/Globulin Ratio 0.8 (1.0-2.7) L Current Medications Medications (Trade) Dose Ordered Sig/Sera Route PRN Reason Start Time Stop Time Status Last Admin Dose Admin Acetaminophen (Tylenol) 650 mg Q4H PRN ORAL Mild Pain (Pain Scale 1-3) 09/18/20 23:45 10/18/20 23:44 09/26/20 10:04 Albuterol/ Ipratropium (Albuterol/ Ipratropium) 3 ml Q4HRT HHN 09/25/20 11:00 09/30/20 10:59 09/26/20 11:54 Amlodipine Besylate (Norvasc) 5 mg DAILY ORAL 09/19/20 09:00 10/19/20 08:59 09/26/20 09:49 Anastrozole (Arimidex) 1 mg DAILY ORAL 09/19/20 09:00 10/19/20 08:59 09/26/20 09:50 Ascorbic Acid (Vitamin C) 500 mg DAILY ORAL 09/21/20 09:00 10/21/20 08:59 09/26/20 09:51 Cetylpyridinium Chloride (Cepacol) 1 lozg EVERY 2 HOURS PRN LAURA For Cough 09/25/20 18:15 12/24/20 18:14 Clonidine HCl (Catapres Tab) 0.1 mg Q4H PRN ORAL SBP > 160 09/19/20 17:15 12/18/20 17:14 09/24/20 03:09 Dextrose (Dextrose 50%) 25 ml Q30M PRN IV Hypoglycemia 09/18/20 19:00 12/17/20 18:59 Dextrose (Dextrose 50%) 50 ml Q30M PRN IV Hypoglycemia 09/18/20 19:00 12/17/20 18:59 Fluticasone Propionate (Flonase) 1 spray QHS NASAL 09/18/20 21:00 10/18/20 20:59 09/25/20 21:17 Furosemide (Lasix) 20 mg DAILY IV 09/20/20 09:00 10/20/20 08:59 09/26/20 09:48 Guaifenesin (Mucinex ER) 600 mg TWICE A DAY ORAL 09/25/20 09:00 12/24/20 08:59 09/26/20 09:49 Heparin Sodium (Porcine) (Heparin 5000 units/ml) 5,000 units EVERY 12 HOURS SUBQ 09/18/20 21:00 11/02/20 20:59 09/26/20 09:53 Hydroxyzine HCl (Atarax) 50 mg Q4H PRN ORAL Itching 09/19/20 06:15 10/19/20 06:14 09/26/20 10:04 Insulin Aspart (NovoLOG) BEFORE MEALS AND HS SUBQ 09/18/20 21:00 12/17/20 20:59 09/26/20 06:56 Lactobacillus Acidophilus (Culturelle) 1 tab TWICE A DAY ORAL 09/25/20 18:00 12/24/20 17:59 09/26/20 09:49 Lorazepam (Ativan) 1 mg Q6H PRN ORAL For Anxiety 09/20/20 15:15 09/27/20 15:14 09/25/20 21:40 Meropenem 500 mg/ Sodium Chloride 55 ml @ 110 mls/hr EVERY 8 HOURS IVPB 09/25/20 14:00 09/30/20 13:59 09/26/20 06:09 Ondansetron HCl (Zofran) 4 mg Q6H PRN IVP Nausea & Vomiting 09/18/20 19:00 10/18/20 18:59 09/25/20 13:43 Pantoprazole (Protonix) 40 mg DAILY ORAL 09/19/20 09:00 10/19/20 08:59 09/26/20 09:50 Potassium Chloride (K-Dur) 20 meq DAILY ORAL 09/20/20 09:00 12/19/20 08:59 09/26/20 09:49 Prednisone (predniSONE) 20 mg DAILY ORAL 09/26/20 09:00 10/26/20 08:59 09/26/20 09:51 Sertraline HCl (Zoloft) 100 mg DAILY ORAL 09/19/20 09:00 10/19/20 08:59 09/26/20 09:49 Vitamin B Complex (Vitamin B Complex) 1 tab DAILY ORAL 09/21/20 09:00 12/20/20 08:59 09/26/20 09:51 Vitamin D (Vitamin D) 1,000 intlu DAILY ORAL 09/20/20 19:15 10/20/20 19:14 09/26/20 09:51 Zolpidem Tartrate (Ambien) 5 mg HSPRN PRN ORAL Insomnia 09/22/20 14:45 09/29/20 14:44 09/26/20 01:01 Rene Schultz MD Sep 26, 2020 12:06
--- NOTE | 2020-09-26 12:32 | Pulmonology Progress Note ---
Subjective ROS Limited/Unobtainable: Yes Constitutional: Denies: fever Allergies: Coded Allergies: AMOXICILLIN (Verified Allergy, Mild, RASH HIVES, 09/29/13) ERYTHROMYCIN BASE (Unverified Allergy, Unknown, 10/13/17) IODINE (Verified Allergy, Unknown, 09/29/13) PENICILLINS (Verified Allergy, Unknown, RASH HIVES, 09/29/13) All Systems: reviewed and negative except above Subjective care noted oxygen set up on diuretics skin care noted UTI+ Objective Last 24 Hour Vital Signs Date Time Temp Pulse Resp B/P (MAP) Pulse Ox O2 Delivery O2 Flow Rate FiO2 09/26/20 11:54 92 16 98 Nasal Cannula 4.0 36 89 18 09/26/20 10:34 97.8 09/26/20 09:49 99 155/80 09/26/20 09:00 Nasal Cannula 1.0 09/26/20 08:00 97.8 99 18 155/80 (105) 99 09/26/20 07:50 99 Nasal Cannula 4.0 28 09/26/20 04:00 97.9 100 18 150/81 (104) 100 09/26/20 01:45 82 19 98 35 09/26/20 00:00 98.1 97 18 128/91 (103) 94 09/25/20 22:10 92 18 143/68 97 09/25/20 21:40 95 18 141/74 95 09/25/20 21:00 Nasal Cannula 1.0 09/25/20 20:00 97.9 95 18 141/76 (97) 95 09/25/20 19:45 99 Nasal Cannula 2.0 28 09/25/20 17:12 98.4 09/25/20 16:00 98.4 84 18 151/86 (107) 94 Intake and Output 09/25/20 09/26/20 19:00 07:00 Intake Total 100 ml Balance 100 ml Intake Oral 100 ml # Voids 2 Objective WDWN NAD reduced breath sounds bilaterally without rhonchi or wheeze [id number] without MRG NABS nontender no HSM no CCE nonfocal dyspneic Laboratory Tests 09/25/20 16:30: POC Whole Blood Glucose 439H 09/26/20 07:10: White Blood Count 12.4H, Red Blood Count 3.34L, Hemoglobin 9.4L, Hematocrit 29.5L, Mean Corpuscular Volume 88, Mean Corpuscular Hemoglobin 28.1, Mean Corpuscular Hemoglobin Concent 31.9L, Red Cell Distribution Width 13.1, Platelet Count 292, Mean Platelet Volume 7.9, Neutrophils (%) (Auto) 64.4, Lymphocytes (%) (Auto) 23.8, Monocytes (%) (Auto) 9.8, Eosinophils (%) (Auto) 0.1, Basophils (%) (Auto) 1.9, Sodium Level 141, Potassium Level 3.9, Chloride Level 102, Carbon Dioxide Level 38H, Anion Gap 1L, Blood Urea Nitrogen 26H, Creatinine 0.8, Estimat Glomerular Filtration Rate > 60, Glucose Level 226H, Calcium Level 8.5, Magnesium Level 1.8, Total Bilirubin 0.1L, Aspartate Amino Transf (AST/SGOT) 10L , Alanine Aminotransferase (ALT/SGPT) 16, Alkaline Phosphatase 69, Pro-B-Type Natriuretic Peptide [Pending], Total Protein 6.2L, Albumin 2.7L, Globulin 3.5, Albumin/Globulin Ratio 0.8L Current Medications Medications (Trade) Dose Ordered Sig/Sera Route PRN Reason Start Time Stop Time Status Last Admin Dose Admin Acetaminophen (Tylenol) 650 mg Q4H PRN ORAL Mild Pain (Pain Scale 1-3) 09/18/20 23:45 10/18/20 23:44 09/26/20 10:04 Albuterol/ Ipratropium (Albuterol/ Ipratropium) 3 ml Q4HRT HHN 09/25/20 11:00 09/30/20 10:59 09/26/20 11:54 Amlodipine Besylate (Norvasc) 5 mg DAILY ORAL 09/19/20 09:00 10/19/20 08:59 09/26/20 09:49 Anastrozole (Arimidex) 1 mg DAILY ORAL 09/19/20 09:00 10/19/20 08:59 09/26/20 09:50 Ascorbic Acid (Vitamin C) 500 mg DAILY ORAL 09/21/20 09:00 10/21/20 08:59 09/26/20 09:51 Cetylpyridinium Chloride (Cepacol) 1 lozg EVERY 2 HOURS PRN LAURA For Cough 09/25/20 18:15 12/24/20 18:14 Clonidine HCl (Catapres Tab) 0.1 mg Q4H PRN ORAL SBP > 160 09/19/20 17:15 12/18/20 17:14 09/24/20 03:09 Dextrose (Dextrose 50%) 25 ml Q30M PRN IV Hypoglycemia 09/18/20 19:00 12/17/20 18:59 Dextrose (Dextrose 50%) 50 ml Q30M PRN IV Hypoglycemia 09/18/20 19:00 12/17/20 18:59 Fluticasone Propionate (Flonase) 1 spray QHS NASAL 09/18/20 21:00 10/18/20 20:59 09/25/20 21:17 Furosemide (Lasix) 20 mg DAILY IV 09/20/20 09:00 10/20/20 08:59 09/26/20 09:48 Guaifenesin (Mucinex ER) 600 mg TWICE A DAY ORAL 09/25/20 09:00 12/24/20 08:59 09/26/20 09:49 Heparin Sodium (Porcine) (Heparin 5000 units/ml) 5,000 units EVERY 12 HOURS SUBQ 09/18/20 21:00 11/02/20 20:59 09/26/20 09:53 Hydroxyzine HCl (Atarax) 50 mg Q4H PRN ORAL Itching 09/19/20 06:15 10/19/20 06:14 09/26/20 10:04 Insulin Aspart (NovoLOG) BEFORE MEALS AND HS SUBQ 09/18/20 21:00 12/17/20 20:59 09/26/20 06:56 Lactobacillus Acidophilus (Culturelle) 1 tab TWICE A DAY ORAL 09/25/20 18:00 12/24/20 17:59 09/26/20 09:49 Lorazepam (Ativan) 1 mg Q6H PRN ORAL For Anxiety 09/20/20 15:15 09/27/20 15:14 09/25/20 21:40 Meropenem 500 mg/ Sodium Chloride 55 ml @ 110 mls/hr EVERY 8 HOURS IVPB 09/25/20 14:00 09/30/20 13:59 09/26/20 06:09 Ondansetron HCl (Zofran) 4 mg Q6H PRN IVP Nausea & Vomiting 09/18/20 19:00 10/18/20 18:59 12/14/20 13:43 Pantoprazole (Protonix) 40 mg DAILY ORAL 09/19/20 09:00 10/19/20 08:59 09/26/20 09:50 Potassium Chloride (K-Dur) 20 meq DAILY ORAL 09/20/20 09:00 12/19/20 08:59 09/26/20 09:49 Prednisone (predniSONE) 20 mg DAILY ORAL 09/26/20 09:00 10/26/20 08:59 09/26/20 09:51 Sertraline HCl (Zoloft) 100 mg DAILY ORAL 09/19/20 09:00 10/19/20 08:59 09/26/20 09:49 Vitamin B Complex (Vitamin B Complex) 1 tab DAILY ORAL 09/21/20 09:00 12/20/20 08:59 09/26/20 09:51 Vitamin D (Vitamin D) 1,000 intlu DAILY ORAL 09/20/20 19:15 10/20/20 19:14 09/26/20 09:51 Zolpidem Tartrate (Ambien) 5 mg HSPRN PRN ORAL Insomnia 09/22/20 14:45 09/29/20 14:44 09/26/20 01:01 Assessment/Plan Assessment/Plan ASSESSMENT: Chronic respiratory failure COPD exacerbation and facial cellulitis. diabetes, hypertension, chronic hypoxemia chronic debility PLAN: DME for new o2 concentrator and nebulizer dc planning respiratory care as is home meds supportive care oxygen therapy and monitor patient very anxious about the COVID pandemic prognosis guarded impression, plan, and exam edited and reviewed in detail care discussed with Froilan Clarke MD Sep 26, 2020 12:32
--- NOTE | 2020-09-26 14:13 | Diagnostic Imaging Report ---
Indication: Cough Technique: 2 views of the chest Comparison: 09/21/2020 Findings: Right posterior diaphragmatic opacity is again demonstrated, demonstrated on prior CT scan to represent a fat-containing Bochdalek hernia. The heart size is normal. There is minimal generalized interstitial prominence which appears similar to the previous study. No infiltrates or effusions. Impression: Equivocal mild interstitial prominence, if real could indicate mild interstitial congestion or chronic bronchial wall thickening. This is unchanged from prior study 09/21/2020
[2020-09-26 16:00] VITALS: BP 114/75
[2020-09-26] MEDS: LORazepam 1mg tab ORAL PRN (16:24)
--- NOTE | 2020-09-26 16:34 | General Progress Note ---
Subjective ROS Limited/Unobtainable: No Constitutional: Reports: malaise, weakness HEENT: Reports: no symptoms Cardiovascular: Reports: no symptoms Respiratory: Reports: cough, shortness of breath Gastrointestinal/Abdominal: Reports: no symptoms Genitourinary: Reports: no symptoms Neurologic/Psychiatric: Reports: anxiety, depressed, emotional problems Endocrine: Reports: no symptoms Hematologic/Lymphatic: Reports: anemia Allergies: Coded Allergies: AMOXICILLIN (Verified Allergy, Mild, RASH HIVES, 09/29/13) ERYTHROMYCIN BASE (Unverified Allergy, Unknown, 10/13/17) IODINE (Verified Allergy, Unknown, 09/29/13) PENICILLINS (Verified Allergy, Unknown, RASH HIVES, 09/29/13) All Systems: reviewed and negative except above Subjective anxious and agitated. wheezing better. high BS. given dose of solumedrol. on iv familia for esbl uti Objective Last 24 Hour Vital Signs Date Time Temp Pulse Resp B/P (MAP) Pulse Ox O2 Delivery O2 Flow Rate FiO2 09/26/20 15:52 85 16 99 Nasal Cannula 4.0 36 85 18 09/26/20 11:54 92 16 98 Nasal Cannula 4.0 36 89 18 09/26/20 10:34 97.8 09/26/20 09:49 99 155/80 09/26/20 09:00 Nasal Cannula 1.0 09/26/20 08:00 97.8 99 18 155/80 (105) 99 09/26/20 07:50 99 Nasal Cannula 4.0 28 09/26/20 04:00 97.9 100 18 150/81 (104) 100 09/26/20 01:45 82 19 98 35 09/26/20 00:00 98.1 97 18 128/91 (103) 94 09/25/20 22:10 92 18 143/68 97 09/25/20 21:40 95 18 141/74 95 09/25/20 21:00 Nasal Cannula 1.0 09/25/20 20:00 97.9 95 18 141/76 (97) 95 09/25/20 19:45 99 Nasal Cannula 2.0 28 09/25/20 17:12 98.4 Intake and Output 09/25/20 09/26/20 19:00 07:00 Intake Total 100 ml Balance 100 ml Intake Oral 100 ml # Voids 2 Laboratory Tests 09/25/20 16:30: POC Whole Blood Glucose 439H 09/26/20 07:10: White Blood Count 12.4H, Red Blood Count 3.34L, Hemoglobin 9.4L, Hematocrit 29.5L, Mean Corpuscular Volume 88, Mean Corpuscular Hemoglobin 28.1, Mean Corpuscular Hemoglobin Concent 31.9L, Red Cell Distribution Width 13.1, Platelet Count 292, Mean Platelet Volume 7.9, Neutrophils (%) (Auto) 64.4, Lymphocytes (%) (Auto) 23.8, Monocytes (%) (Auto) 9.8, Eosinophils (%) (Auto) 0.1, Basophils (%) (Auto) 1.9, Sodium Level 141, Potassium Level 3.9, Chloride Level 102, Carbon Dioxide Level 38H, Anion Gap 1L, Blood Urea Nitrogen 26H, Creatinine 0.8, Estimat Glomerular Filtration Rate > 60, Glucose Level 226H, Calcium Level 8.5, Magnesium Level 1.8, Total Bilirubin 0.1L, Aspartate Amino Transf (AST/SGOT) 10L , Alanine Aminotransferase (ALT/SGPT) 16, Alkaline Phosphatase 69, Pro-B-Type Natriuretic Peptide [Pending], Total Protein 6.2L, Albumin 2.7L, Globulin 3.5, Albumin/Globulin Ratio 0.8L Height (Feet): 5 Height (Inches): 1.00 Weight (Pounds): 210 Objective General Appearance: WD/WN, alert, mild distress EENT: PERRL/EOMI, normal ENT inspection Neck: non-tender, normal alignment Cardiovascular: normal peripheral pulses, normal rate, regular rhythm Respiratory/Chest: chest wall non-tender, lungs clear, no respiratory distress, no accessory muscle use, +expiratory wheezing Abdomen: normal bowel sounds, non tender, soft, no organomegaly Edema: no edema noted Arm (L), no edema noted Arm (R) 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, no motor/sensory deficits, alert, oriented x 3, responsive, normal mood/affect Assessment/Plan Problem List: (1) Facial cellulitis ICD Codes: L03.211 - Cellulitis of face SNOMED: 094101894 (2) COPD exacerbation ICD Codes: J44.1 - COPD exacerbation SNOMED: 547720695 (3) Toxic metabolic encephalopathy ICD Codes: G92 - Toxic encephalopathy SNOMED: 587227211 (4) Hypertension, malignant ICD Codes: I10 - Hypertension, malignant SNOMED: 55065310 (5) Diabetes mellitus ICD Codes: E11.9 - Diabetes mellitus SNOMED: 46315965 Status: stable, progressing Assessment/Plan: resp added guaifenesin o2 as needed psych rx ID eval regarding esbl uti monitor bs cont bp rx dvt/stress ulcer prophylaxis Floyd Downey MD Sep 26, 2020 16:34
[2020-09-26 20:00] VITALS: BP 147/76
[2020-09-26] MEDS: Flonase Nasal Inhaler 16gm NASAL SCH (22:00)
--- NOTE | 2020-09-27 00:11 | Cardiology Progress Note ---
Subjective DATE OF SERVICE: Sep 26, 2020 Less wheezing and congestion. Facial swelling resolved. Glucose still elevated off IV steroids No CP. Urine Culture positive for MDR pathogen Still anxious at times with manic features - worried she is gonna get Covid19 from others in the hospital. Covid 19 swab negative CXR (09/26) No interval change - bronchial thickening vs CHF Objective Last 24 Hour Vital Signs Date Time Temp Pulse Resp B/P (MAP) Pulse Ox O2 Delivery O2 Flow Rate FiO2 09/26/20 23:19 90 20 99 Nasal Cannula 4.0 36 09/26/20 23:08 91 20 99 Nasal Cannula 4.0 36 09/26/20 19:44 103 20 100 Nasal Cannula 4.0 36 09/26/20 19:34 102 20 99 Nasal Cannula 4.0 36 09/26/20 19:34 99 Nasal Cannula 4.0 28 09/26/20 16:54 85 16 155/80 99 09/26/20 16:27 97.8 09/26/20 16:24 85 16 155/80 99 09/26/20 16:00 98.1 100 18 114/75 (88) 98 09/26/20 15:52 85 16 99 Nasal Cannula 4.0 36 85 18 09/26/20 11:54 92 16 98 Nasal Cannula 4.0 36 89 18 09/26/20 10:34 97.8 09/26/20 09:49 99 155/80 09/26/20 09:00 Nasal Cannula 1.0 09/26/20 08:00 97.8 99 18 155/80 (105) 99 09/26/20 07:50 99 Nasal Cannula 4.0 28 09/26/20 04:00 97.9 100 18 150/81 (104) 100 09/26/20 01:45 82 19 98 35 09/26/20 00:00 98.1 97 18 128/91 (103) 94 ROS: unchanged from 09/18/20 HEENT: normal ENT inspection RHYTHM: NSR, ST, PACs LUNGS: diminished breath sounds, coarse breath sounds CARDIAC: normal rate, regular rhythm, normal S1 and S2, gallop/S4 ABDOMEN: normal bowel sounds, non tender, soft, no organomegaly, other - obese EXTREMITIES: +1 edema Laboratory Tests Test 09/26/20 07:10 White Blood Count 12.4 K/UL (4.8-10.8) H Red Blood Count 3.34 M/UL (4.20-5.40) L Hemoglobin 9.4 G/DL (12.0-16.0) L Hematocrit 29.5 % (37.0-47.0) L Mean Corpuscular Volume 88 FL (80-99) Mean Corpuscular Hemoglobin 28.1 PG (27.0-31.0) Mean Corpuscular Hemoglobin Concent 31.9 G/DL (32.0-36.0) L Red Cell Distribution Width 13.1 % (11.6-14.8) Platelet Count 292 K/UL (150-450) Mean Platelet Volume 7.9 FL (6.5-10.1) Neutrophils (%) (Auto) 64.4 % (45.0-75.0) Lymphocytes (%) (Auto) 23.8 % (20.0-45.0) Monocytes (%) (Auto) 9.8 % (1.0-10.0) Eosinophils (%) (Auto) 0.1 % (0.0-3.0) Basophils (%) (Auto) 1.9 % (0.0-2.0) Sodium Level 141 MMOL/L (136-145) Potassium Level 3.9 MMOL/L (3.5-5.1) Chloride Level 102 MMOL/L (98-107) Carbon Dioxide Level 38 MMOL/L (21-32) H Anion Gap 1 mmol/L (5-15) L Blood Urea Nitrogen 26 mg/dL (7-18) H Creatinine 0.8 MG/DL (0.55-1.30) Estimat Glomerular Filtration Rate > 60 mL/min (>60) Glucose Level 226 MG/DL (74-106) H Calcium Level 8.5 MG/DL (8.5-10.1) Magnesium Level 1.8 MG/DL (1.8-2.4) Total Bilirubin 0.1 MG/DL (0.2-1.0) L Aspartate Amino Transf (AST/SGOT) 10 U/L (15-37) L Alanine Aminotransferase (ALT/SGPT) 16 U/L (12-78) Alkaline Phosphatase 69 U/L (46-116) Pro-B-Type Natriuretic Peptide Pending Total Protein 6.2 G/DL (6.4-8.2) L Albumin 2.7 G/DL (3.4-5.0) L Globulin 3.5 g/dL Albumin/Globulin Ratio 0.8 (1.0-2.7) L Assessment/Plan Assessment/Plan COPD exacerbation with hypoxia Acute bronchitis Covid 19 PCR negative Ac/chr diastolic CHF with decreasing BNP now - clinically compensated. Hx breast CA Paroxysmal atrial ectopy Hypertensive heart disease Sinus tachycardia improved UTI - K.pn (multi-drug resistant) IRDM uncontrolled on steroids Steroids tapering to maintenance oral dosing. O2 suppl Anti-coagulation IV Abx per ID Diuresis based on clinical parameters; trend BNP and switch to oral dose. Titrate antiHTN regimen as needed. PT/OT Insulin coverage Werner Martinez MD Sep 27, 2020 00:11
[2020-09-27] MEDS: Albuterol/Ipratropium 3ml neb HHN SCH ×6 (03:25→23:14)
[2020-09-27 04:00] VITALS: BP 135/74
[2020-09-27] MEDS: LORazepam 1mg tab ORAL PRN (05:11)
[2020-09-27] MEDS: Meropenem 500 MG in NS 55 ML IVPB SCH ×3 (06:00→21:54)
[2020-09-27] MEDS: NovoLOG Insulin Flexpen SUBQ SCH ×4 (06:30→20:37)
[2020-09-27 08:00] VITALS: BP 151/66
[2020-09-27] MEDS: guaiFENesin ER 600mg tab ORAL SCH ×2 (09:07→17:15)
[2020-09-27] MEDS: Lactobacillus-GG tablet ORAL SCH ×2 (09:07→17:15)
[2020-09-27] MEDS: Vitamin D 1000 units Tab ORAL SCH (09:07)
[2020-09-27] MEDS: Ascorbic Acid 500mg tab ORAL SCH (09:07)
[2020-09-27] MEDS: Vitamin B Complex Tab ORAL SCH (09:08)
[2020-09-27] MEDS: Sertraline 100mg tab ORAL SCH (09:08)
[2020-09-27] MEDS: Anastrazole 1mg tab ORAL SCH (09:08)
[2020-09-27] MEDS: Heparin 5000 units/ml inj SUBQ SCH ×2 (09:09→21:56)
--- NOTE | 2020-09-27 10:58 | Pulmonology Progress Note ---
Subjective ROS Limited/Unobtainable: No Constitutional: Denies: fever Allergies: Coded Allergies: AMOXICILLIN (Verified Allergy, Mild, RASH HIVES, 09/29/13) ERYTHROMYCIN BASE (Unverified Allergy, Unknown, 10/13/17) IODINE (Verified Allergy, Unknown, 09/29/13) PENICILLINS (Verified Allergy, Unknown, RASH HIVES, 09/29/13) All Systems: reviewed and negative except above Subjective care noted noted congestion and sputum green in color on diuretics skin care noted afraid to go home UTI+ Objective Last 24 Hour Vital Signs Date Time Temp Pulse Resp B/P (MAP) Pulse Ox O2 Delivery O2 Flow Rate FiO2 09/27/20 09:07 86 151/66 09/27/20 09:00 Nasal Cannula 1.0 09/27/20 08:00 99.5 86 19 151/66 (94) 96 09/27/20 05:11 99 20 137/75 99 09/27/20 04:00 99.1 95 20 135/74 (94) 99 09/27/20 03:38 108 25 100 35 09/27/20 03:35 111 20 100 Bi-Pap 35 09/27/20 03:25 110 20 100 Nasal Cannula 4.0 36 09/26/20 23:19 90 20 99 Nasal Cannula 4.0 36 09/26/20 23:08 91 20 99 Nasal Cannula 4.0 36 09/26/20 21:00 Nasal Cannula 1.0 09/26/20 20:00 99.4 104 20 147/76 (99) 99 09/26/20 19:44 103 20 100 Nasal Cannula 4.0 36 09/26/20 19:34 102 20 99 Nasal Cannula 4.0 36 09/26/20 19:34 99 Nasal Cannula 4.0 28 09/26/20 16:54 85 16 155/80 99 09/26/20 16:27 97.8 09/26/20 16:24 85 16 155/80 99 09/26/20 16:00 98.1 100 18 114/75 (88) 98 09/26/20 15:52 85 16 99 Nasal Cannula 4.0 36 85 18 09/26/20 11:54 92 16 98 Nasal Cannula 4.0 36 89 18 Objective WDWN NAD reduced breath sounds bilaterally without rhonchi or wheeze [id number] without MRG NABS nontender no HSM no CCE nonfocal dyspneic Current Medications Medications (Trade) Dose Ordered Sig/Sera Route PRN Reason Start Time Stop Time Status Last Admin Dose Admin Acetaminophen (Tylenol) 650 mg Q4H PRN ORAL Mild Pain (Pain Scale 1-3) 09/18/20 23:45 10/18/20 23:44 09/27/20 05:13 Albuterol/ Ipratropium (Albuterol/ Ipratropium) 3 ml Q4HRT HHN 09/25/20 11:00 09/30/20 10:59 09/27/20 07:31 Amlodipine Besylate (Norvasc) 5 mg DAILY ORAL 09/19/20 09:00 10/19/20 08:59 09/27/20 09:07 Anastrozole (Arimidex) 1 mg DAILY ORAL 09/19/20 09:00 10/19/20 08:59 09/27/20 09:08 Ascorbic Acid (Vitamin C) 500 mg DAILY ORAL 09/21/20 09:00 10/21/20 08:59 09/27/20 09:07 Cetylpyridinium Chloride (Cepacol) 1 lozg EVERY 2 HOURS PRN LAURA For Cough 09/25/20 18:15 12/24/20 18:14 Clonidine HCl (Catapres Tab) 0.1 mg Q4H PRN ORAL SBP > 160 09/19/20 17:15 12/18/20 17:14 09/24/20 03:09 Dextrose (Dextrose 50%) 25 ml Q30M PRN IV Hypoglycemia 09/18/20 19:00 12/17/20 18:59 Dextrose (Dextrose 50%) 50 ml Q30M PRN IV Hypoglycemia 09/18/20 19:00 12/17/20 18:59 Fluticasone Propionate (Flonase) 1 spray QHS NASAL 09/18/20 21:00 10/18/20 20:59 09/26/20 22:00 Furosemide (Lasix) 20 mg DAILY ORAL 09/27/20 09:00 10/27/20 08:59 09/27/20 09:08 Guaifenesin (Mucinex ER) 600 mg TWICE A DAY ORAL 09/25/20 09:00 12/24/20 08:59 09/27/20 09:07 Heparin Sodium (Porcine) (Heparin 5000 units/ml) 5,000 units EVERY 12 HOURS SUBQ 09/18/20 21:00 11/02/20 20:59 09/27/20 09:09 Hydroxyzine HCl (Atarax) 50 mg Q4H PRN ORAL Itching 09/19/20 06:15 10/19/20 06:14 09/26/20 10:04 Insulin Aspart (NovoLOG) BEFORE MEALS AND HS SUBQ 09/18/20 21:00 12/17/20 20:59 09/26/20 22:00 Lactobacillus Acidophilus (Culturelle) 1 tab TWICE A DAY ORAL 09/25/20 18:00 12/24/20 17:59 09/27/20 09:07 Lorazepam (Ativan) 1 mg Q6H PRN ORAL For Anxiety 09/20/20 15:15 09/27/20 15:14 09/27/20 05:11 Meropenem 500 mg/ Sodium Chloride 55 ml @ 110 mls/hr EVERY 8 HOURS IVPB 09/25/20 14:00 09/30/20 13:59 09/27/20 06:00 Ondansetron HCl (Zofran) 4 mg Q6H PRN IVP Nausea & Vomiting 09/18/20 19:00 10/18/20 18:59 09/26/20 18:45 Pantoprazole (Protonix) 40 mg DAILY ORAL 09/19/20 09:00 10/19/20 08:59 09/27/20 09:07 Potassium Chloride (K-Dur) 20 meq DAILY ORAL 09/20/20 09:00 12/19/20 08:59 09/27/20 09:08 Prednisone (predniSONE) 20 mg DAILY ORAL 09/26/20 09:00 10/26/20 08:59 09/27/20 09:08 Sertraline HCl (Zoloft) 100 mg DAILY ORAL 09/19/20 09:00 10/19/20 08:59 09/27/20 09:08 Vitamin B Complex (Vitamin B Complex) 1 tab DAILY ORAL 09/21/20 09:00 12/20/20 08:59 09/27/20 09:08 Vitamin D (Vitamin D) 1,000 intlu DAILY ORAL 09/20/20 19:15 10/20/20 19:14 12/16/20 09:07 Zolpidem Tartrate (Ambien) 5 mg HSPRN PRN ORAL Insomnia 09/22/20 14:45 09/29/20 14:44 09/26/20 01:01 Assessment/Plan Assessment/Plan ASSESSMENT: Chronic respiratory failure COPD exacerbation and facial cellulitis. diabetes, hypertension, chronic hypoxemia chronic debility, pulmonary congestion PLAN: DME for new o2 concentrator and nebulizer dc planning in progress sputum culture intensify antibiotics respiratory care as is home meds supportive care oxygen therapy and monitor patient very anxious about the COVID pandemic prognosis guarded impression, plan, and exam edited and reviewed in detail care discussed with Froilan Clarke MD Sep 27, 2020 10:58
--- NOTE | 2020-09-27 11:26 | Infectious Diseases Prog Note ---
Assessment/Plan Assessment/Plan antibiotics : vancomycin iv, meropenem A 1. Klebsiella urinary tract infection. 2. Facial cellulitis improving 3. COPD exacerbation. 4. diabetes mellitus 5. hypertension 6. CHF 7. breast cancer P 1. Discontinue IV vancomycin. 2. continue meropenem 4 more days 3. will follow up cultures Subjective Constitutional: Denies: fever, chills Respiratory: Reports: shortness of breath, dry cough Gastrointestinal/Abdominal: Reports: nausea; Denies: vomiting, diarrhea Neurologic: Reports: headache Allergies: Coded Allergies: AMOXICILLIN (Verified Allergy, Mild, RASH HIVES, 09/29/13) ERYTHROMYCIN BASE (Unverified Allergy, Unknown, 10/13/17) IODINE (Verified Allergy, Unknown, 09/29/13) PENICILLINS (Verified Allergy, Unknown, RASH HIVES, 09/29/13) Objective Last 24 Hour Vital Signs Date Time Temp Pulse Resp B/P (MAP) Pulse Ox O2 Delivery O2 Flow Rate FiO2 09/27/20 09:07 86 151/66 09/27/20 09:00 Nasal Cannula 1.0 09/27/20 08:00 99.5 86 19 151/66 (94) 96 09/27/20 05:11 99 20 137/75 99 09/27/20 04:00 99.1 95 20 135/74 (94) 99 09/27/20 03:38 108 25 100 35 09/27/20 03:35 111 20 100 Bi-Pap 35 09/27/20 03:25 110 20 100 Nasal Cannula 4.0 36 09/26/20 23:19 90 20 99 Nasal Cannula 4.0 36 09/26/20 23:08 91 20 99 Nasal Cannula 4.0 36 09/26/20 21:00 Nasal Cannula 1.0 09/26/20 20:00 99.4 104 20 147/76 (99) 99 09/26/20 19:44 103 20 100 Nasal Cannula 4.0 36 09/26/20 19:34 102 20 99 Nasal Cannula 4.0 36 09/26/20 19:34 99 Nasal Cannula 4.0 28 09/26/20 16:54 85 16 155/80 99 09/26/20 16:27 97.8 09/26/20 16:24 85 16 155/80 99 09/26/20 16:00 98.1 100 18 114/75 (88) 98 09/26/20 15:52 85 16 99 Nasal Cannula 4.0 36 85 18 09/26/20 11:54 92 16 98 Nasal Cannula 4.0 36 89 18 Height (Feet): 5 Height (Inches): 1.00 Weight (Pounds): 210 Respiratory/Chest: lungs clear Cardiovascular: normal rate, regular rhythm, no gallop/murmur Abdomen: soft, non tender Extremities: no edema Current Medications Medications (Trade) Dose Ordered Sig/Sera Route PRN Reason Start Time Stop Time Status Last Admin Dose Admin Acetaminophen (Tylenol) 650 mg Q4H PRN ORAL Mild Pain (Pain Scale 1-3) 09/18/20 23:45 10/18/20 23:44 09/27/20 05:13 Albuterol/ Ipratropium (Albuterol/ Ipratropium) 3 ml Q4HRT HHN 09/25/20 11:00 09/30/20 10:59 09/27/20 07:31 Amlodipine Besylate (Norvasc) 5 mg DAILY ORAL 09/19/20 09:00 10/19/20 08:59 09/27/20 09:07 Anastrozole (Arimidex) 1 mg DAILY ORAL 09/19/20 09:00 10/19/20 08:59 09/27/20 09:08 Ascorbic Acid (Vitamin C) 500 mg DAILY ORAL 09/21/20 09:00 10/21/20 08:59 09/27/20 09:07 Cetylpyridinium Chloride (Cepacol) 1 lozg EVERY 2 HOURS PRN LAURA For Cough 09/25/20 18:15 12/24/20 18:14 Clonidine HCl (Catapres Tab) 0.1 mg Q4H PRN ORAL SBP > 160 09/19/20 17:15 12/18/20 17:14 09/24/20 03:09 Dextrose (Dextrose 50%) 25 ml Q30M PRN IV Hypoglycemia 09/18/20 19:00 12/17/20 18:59 Dextrose (Dextrose 50%) 50 ml Q30M PRN IV Hypoglycemia 09/18/20 19:00 12/17/20 18:59 Fluticasone Propionate (Flonase) 1 spray QHS NASAL 09/18/20 21:00 10/18/20 20:59 09/26/20 22:00 Furosemide (Lasix) 20 mg DAILY ORAL 09/27/20 09:00 10/27/20 08:59 09/27/20 09:08 Guaifenesin (Mucinex ER) 600 mg TWICE A DAY ORAL 09/25/20 09:00 12/24/20 08:59 09/27/20 09:07 Heparin Sodium (Porcine) (Heparin 5000 units/ml) 5,000 units EVERY 12 HOURS SUBQ 09/18/20 21:00 11/02/20 20:59 09/27/20 09:09 Hydroxyzine HCl (Atarax) 50 mg Q4H PRN ORAL Itching 09/19/20 06:15 10/19/20 06:14 09/26/20 10:04 Insulin Aspart (NovoLOG) BEFORE MEALS AND HS SUBQ 09/18/20 21:00 12/17/20 20:59 09/26/20 22:00 Lactobacillus Acidophilus (Culturelle) 1 tab TWICE A DAY ORAL 09/25/20 18:00 12/24/20 17:59 09/27/20 09:07 Lorazepam (Ativan) 1 mg Q6H PRN ORAL For Anxiety 09/20/20 15:15 09/27/20 15:14 09/27/20 05:11 Meropenem 500 mg/ Sodium Chloride 55 ml @ 110 mls/hr EVERY 8 HOURS IVPB 09/25/20 14:00 09/30/20 13:59 09/27/20 06:00 Ondansetron HCl (Zofran) 4 mg Q6H PRN IVP Nausea & Vomiting 09/18/20 19:00 10/18/20 18:59 09/26/20 18:45 Pantoprazole (Protonix) 40 mg DAILY ORAL 09/19/20 09:00 10/19/20 08:59 09/27/20 09:07 Potassium Chloride (K-Dur) 20 meq DAILY ORAL 09/20/20 09:00 12/19/20 08:59 09/27/20 09:08 Prednisone (predniSONE) 20 mg DAILY ORAL 09/26/20 09:00 10/26/20 08:59 09/27/20 09:08 Sertraline HCl (Zoloft) 100 mg DAILY ORAL 09/19/20 09:00 10/19/20 08:59 09/27/20 09:08 Vancomycin HCl 250 ml @ 166.667 mls/hr Q24H IVPB 09/27/20 11:00 10/02/20 10:59 UNV Vitamin B Complex (Vitamin B Complex) 1 tab DAILY ORAL 09/21/20 09:00 12/20/20 08:59 09/27/20 09:08 Vitamin D (Vitamin D) 1,000 intlu DAILY ORAL 09/20/20 19:15 10/20/20 19:14 09/27/20 09:07 Zolpidem Tartrate (Ambien) 5 mg HSPRN PRN ORAL Insomnia 09/22/20 14:45 09/29/20 14:44 09/26/20 01:01 Lo Delcid MD Sep 27, 2020 11:26
[2020-09-27] MEDS ORDERED: guaiFENesin /DM 10ml syrup ORAL PRN (11:45)
[2020-09-27 12:00] VITALS: BP 138/66
[2020-09-27 16:00] VITALS: BP 133/57
--- NOTE | 2020-09-27 17:20 | General Progress Note ---
Subjective ROS Limited/Unobtainable: No Constitutional: Reports: fever, malaise, weakness HEENT: Reports: no symptoms Cardiovascular: Reports: no symptoms Respiratory: Reports: cough Gastrointestinal/Abdominal: Reports: no symptoms Genitourinary: Reports: no symptoms Neurologic/Psychiatric: Reports: no symptoms Endocrine: Reports: no symptoms Hematologic/Lymphatic: Reports: no symptoms Allergies: Coded Allergies: AMOXICILLIN (Verified Allergy, Mild, RASH HIVES, 09/29/13) ERYTHROMYCIN BASE (Unverified Allergy, Unknown, 10/13/17) IODINE (Verified Allergy, Unknown, 09/29/13) PENICILLINS (Verified Allergy, Unknown, RASH HIVES, 09/29/13) All Systems: reviewed and negative except above Subjective c/p sore throat and shortness of breath low-grade temperature noted. Positive cough. On IV antibiotics Objective Last 24 Hour Vital Signs Date Time Temp Pulse Resp B/P (MAP) Pulse Ox O2 Delivery O2 Flow Rate FiO2 09/27/20 16:00 99.3 96 19 133/57 (82) 100 09/27/20 12:00 100.2 106 20 138/66 (90) 99 09/27/20 11:33 90 18 100 Nasal Cannula 4.0 36 86 18 98 09/27/20 09:07 86 151/66 09/27/20 09:00 Nasal Cannula 1.0 09/27/20 08:00 99.5 86 19 151/66 (94) 96 09/27/20 07:41 94 18 100 Nasal Cannula 4.0 36 90 18 97 09/27/20 07:31 97 Nasal Cannula 4.0 28 09/27/20 05:11 99 20 137/75 99 09/27/20 04:00 99.1 95 20 135/74 (94) 99 09/27/20 03:38 108 25 100 35 09/27/20 03:35 111 20 100 Bi-Pap 35 09/27/20 03:25 110 20 100 Nasal Cannula 4.0 36 09/26/20 23:19 90 20 99 Nasal Cannula 4.0 36 09/26/20 23:08 91 20 99 Nasal Cannula 4.0 36 09/26/20 21:00 Nasal Cannula 1.0 09/26/20 20:00 99.4 104 20 147/76 (99) 99 09/26/20 19:44 103 20 100 Nasal Cannula 4.0 36 09/26/20 19:34 102 20 99 Nasal Cannula 4.0 36 09/26/20 19:34 99 Nasal Cannula 4.0 28 Height (Feet): 5 Height (Inches): 1.00 Weight (Pounds): 210 Objective General Appearance: WD/WN, alert, mild distress EENT: PERRL/EOMI, normal ENT inspection Neck: non-tender, normal alignment Cardiovascular: normal peripheral pulses, normal rate, regular rhythm Respiratory/Chest: chest wall non-tender, lungs clear, no respiratory distress, no accessory muscle use, +expiratory wheezing Abdomen: normal bowel sounds, non tender, soft, no organomegaly Edema: no edema noted Arm (L), no edema noted Arm (R) 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, no motor/sensory deficits, alert, oriented x 3, responsive, normal mood/affect Assessment/Plan Problem List: (1) Facial cellulitis ICD Codes: L03.211 - Cellulitis of face SNOMED: 861093162 (2) COPD exacerbation ICD Codes: J44.1 - COPD exacerbation SNOMED: 332983017 (3) Toxic metabolic encephalopathy ICD Codes: G92 - Toxic encephalopathy SNOMED: 994381677 (4) Hypertension, malignant ICD Codes: I10 - Hypertension, malignant SNOMED: 45358487 (5) Diabetes mellitus ICD Codes: E11.9 - Diabetes mellitus SNOMED: 23225070 Status: stable, progressing Assessment/Plan: resp added guaifenesin o2 as needed psych rx ID eval noted check covid pcr meropenem per ID monitor bs cont bp rx dvt/stress ulcer prophylaxis Floyd Downey MD Sep 27, 2020 17:20
[2020-09-27] MEDS: guaiFENesin w/Codeine 5ml Liq ud ORAL PRN (18:33)
--- NOTE | 2020-09-27 19:33 | Psychiatric Progress Note ---
Psychiatry Progress Note Psychiatry Progress Note Subjective the pt cont to be agitated and yelling at staff. cont to have multiple complaints splitting staff Medications Current Medications Medications (Trade) Dose Ordered Sig/Sera Route PRN Reason Start Time Stop Time Status Last Admin Dose Admin Acetaminophen (Tylenol) 650 mg Q4H PRN ORAL Mild Pain (Pain Scale 1-3) 09/18/20 23:45 10/18/20 23:44 09/27/20 11:27 Albuterol/ Ipratropium (Albuterol/ Ipratropium) 3 ml Q4HRT HHN 09/25/20 11:00 09/30/20 10:59 09/27/20 11:23 Amlodipine Besylate (Norvasc) 5 mg DAILY ORAL 09/19/20 09:00 10/19/20 08:59 09/27/20 09:07 Anastrozole (Arimidex) 1 mg DAILY ORAL 09/19/20 09:00 10/19/20 08:59 09/27/20 09:08 Ascorbic Acid (Vitamin C) 500 mg DAILY ORAL 09/21/20 09:00 10/21/20 08:59 09/27/20 09:07 Cetylpyridinium Chloride (Cepacol) 1 lozg EVERY 2 HOURS PRN LAURA For Cough 09/25/20 18:15 12/24/20 18:14 09/27/20 11:26 Clonidine HCl (Catapres Tab) 0.1 mg Q4H PRN ORAL SBP > 160 09/19/20 17:15 12/18/20 17:14 09/24/20 03:09 Dextrose (Dextrose 50%) 25 ml Q30M PRN IV Hypoglycemia 09/18/20 19:00 12/17/20 18:59 Dextrose (Dextrose 50%) 50 ml Q30M PRN IV Hypoglycemia 09/18/20 19:00 12/17/20 18:59 Fluticasone Propionate (Flonase) 1 spray QHS NASAL 09/18/20 21:00 10/18/20 20:59 09/26/20 22:00 Furosemide (Lasix) 20 mg DAILY ORAL 09/27/20 09:00 10/27/20 08:59 09/27/20 09:08 Guaifenesin (Mucinex ER) 600 mg TWICE A DAY ORAL 09/25/20 09:00 12/24/20 08:59 09/27/20 17:15 Guaifenesin/ Codeine Phosphate (Robitussin with codeine) 5 ml Q6H PRN ORAL For Cough 09/27/20 18:30 10/27/20 18:29 09/27/20 18:33 Heparin Sodium (Porcine) (Heparin 5000 units/ml) 5,000 units EVERY 12 HOURS SUBQ 09/18/20 21:00 11/02/20 20:59 09/27/20 09:09 Hydroxyzine HCl (Atarax) 50 mg Q4H PRN ORAL Itching 09/19/20 06:15 10/19/20 06:14 09/26/20 10:04 Insulin Aspart (NovoLOG) BEFORE MEALS AND HS SUBQ 09/18/20 21:00 12/17/20 20:59 09/27/20 17:16 Lactobacillus Acidophilus (Culturelle) 1 tab TWICE A DAY ORAL 09/25/20 18:00 12/24/20 17:59 09/27/20 17:15 Meropenem 500 mg/ Sodium Chloride 55 ml @ 110 mls/hr EVERY 8 HOURS IVPB 09/25/20 14:00 09/30/20 13:59 09/27/20 14:01 Ondansetron HCl (Zofran) 4 mg Q6H PRN IVP Nausea & Vomiting 09/18/20 19:00 10/18/20 18:59 09/27/20 11:27 Pantoprazole (Protonix) 40 mg DAILY ORAL 09/19/20 09:00 10/19/20 08:59 09/27/20 09:07 Potassium Chloride (K-Dur) 20 meq DAILY ORAL 09/20/20 09:00 12/19/20 08:59 09/27/20 09:08 Prednisone (predniSONE) 20 mg DAILY ORAL 09/26/20 09:00 10/26/20 08:59 09/27/20 09:08 Sertraline HCl (Zoloft) 100 mg DAILY ORAL 09/19/20 09:00 10/19/20 08:59 09/27/20 09:08 Vitamin B Complex (Vitamin B Complex) 1 tab DAILY ORAL 09/21/20 09:00 12/20/20 08:59 09/27/20 09:08 Vitamin D (Vitamin D) 1,000 intlu DAILY ORAL 09/20/20 19:15 10/20/20 19:14 09/27/20 09:07 Zolpidem Tartrate (Ambien) 5 mg HSPRN PRN ORAL Insomnia 09/22/20 14:45 09/29/20 14:44 09/26/20 01:01 Neurological/Psychiatric: Reports: no symptoms Allergies: Coded Allergies: AMOXICILLIN (Verified Allergy, Mild, RASH HIVES, 09/29/13) ERYTHROMYCIN BASE (Unverified Allergy, Unknown, 10/13/17) IODINE (Verified Allergy, Unknown, 09/29/13) PENICILLINS (Verified Allergy, Unknown, RASH HIVES, 09/29/13) Objective Data Height (Feet): 5 Height (Inches): 1.00 Weight (Pounds): 210 General Appearance: WD/WN, alert, mild distress Additional Comments: alert and oriented times self, place, and situation. Mood is anxious. Affect is blunted, congruent with mood. Thought process is concrete. Thought content, there is no suicidal or homicidal ideation. Cognition is intact. Insight and judgment is fair. Assessment/Plan [place] I: ASSESSMENT: [place] I Major depressive disorder. Anxiety disorder. [place] II borderline [place] III COPD. [place] IV Low. [place] V 50 PLAN: 1. Continue Zoloft. 2. ativan and ambien prn 3. The patient would like only melatonin. 4. Provide the patient with reality orientation and supportive therapy. Status: stable, progressing Status Narrative ASSESSMENT: [place] I Major depressive disorder. Anxiety disorder. [place] II borderline [place] III COPD. [place] IV Low. [place] V 50 PLAN: 1. Continue Zoloft. 2. ativan and ambien prn 3. The patient would like only melatonin. 4. Provide the patient with reality orientation and supportive therapy. Assessment/Plan: ASSESSMENT: [place] I Major depressive disorder. Anxiety disorder. [place] II borderline [place] III COPD. [place] IV Low. [place] V 50 PLAN: 1. Continue Zoloft. 2. ativan and ambien prn 3. The patient would like only melatonin. 4. Provide the patient with reality orientation and supportive therapy. Jayy Andino MD Sep 27, 2020 19:33
[2020-09-27 20:00] VITALS: BP 142/61
--- NOTE | 2020-09-27 21:57 | Cardiology Progress Note ---
Subjective DATE OF SERVICE: Sep 27, 2020 More wheezing and congestion with fevers to 100.3 and hacking cough tonite. Facial swelling resolved. Glucose still elevated. No CP. Urine Culture positive for MDR pathogen Covid 19 swab negative on admit; repeat PCR today pending. CXR (09/26) No interval change - bronchial thickening vs CHF Objective Last 24 Hour Vital Signs Date Time Temp Pulse Resp B/P (MAP) Pulse Ox O2 Delivery O2 Flow Rate FiO2 09/27/20 20:00 99.0 96 20 142/61 (88) 98 09/27/20 19:31 98 Nasal Cannula 4.0 28 09/27/20 19:31 119 20 98 Nasal Cannula 4.0 36 108 21 96 09/27/20 16:00 99.3 96 19 133/57 (82) 100 09/27/20 12:00 100.2 106 20 138/66 (90) 99 09/27/20 11:33 90 18 100 Nasal Cannula 4.0 36 86 18 98 09/27/20 09:07 86 151/66 09/27/20 09:00 Nasal Cannula 1.0 09/27/20 08:00 99.5 86 19 151/66 (94) 96 09/27/20 07:41 94 18 100 Nasal Cannula 4.0 36 90 18 97 09/27/20 07:31 97 Nasal Cannula 4.0 28 09/27/20 05:11 99 20 137/75 99 09/27/20 04:00 99.1 95 20 135/74 (94) 99 09/27/20 03:38 108 25 100 35 09/27/20 03:35 111 20 100 Bi-Pap 35 09/27/20 03:25 110 20 100 Nasal Cannula 4.0 36 09/26/20 23:19 90 20 99 Nasal Cannula 4.0 36 09/26/20 23:08 91 20 99 Nasal Cannula 4.0 36 ROS: unchanged from 09/18/20 HEENT: normal ENT inspection RHYTHM: NSR, ST, PACs LUNGS: bilateral rhonchi, coarse breath sounds CARDIAC: normal rate, regular rhythm, normal S1 and S2, gallop/S4 ABDOMEN: normal bowel sounds, non tender, soft, no organomegaly, other - obese EXTREMITIES: +1 edema Assessment/Plan Assessment/Plan COPD exacerbation with hypoxia Acute bronchitis worsening. Covid 19 PCR negative on admit; repeat swab 09/27 pending. Ac/chr diastolic CHF with decreasing BNP now - clinically compensated. Hx breast CA Paroxysmal atrial ectopy Hypertensive heart disease Sinus tachycardia improved UTI - K.pn (multi-drug resistant) IRDM uncontrolled on steroids Resume IV steroids Await new Covid 19 swab O2 suppl Anti-coagulation IV Abx per ID Diuresis based on clinical parameters; trend BNP. Titrate antiHTN regimen as needed. PT/OT Insulin coverage Werner Martinez MD Sep 27, 2020 21:57
[2020-09-27] MEDS: Flonase Nasal Inhaler 16gm NASAL SCH (22:13)
[2020-09-27] MEDS: Zolpidem 5mg tab ORAL PRN (22:44)
[2020-09-28] VITALS: BP 148/62
[2020-09-28] MEDS: Albuterol/Ipratropium 3ml neb HHN SCH ×3 (02:00→11:00)
[2020-09-28] MEDS: guaiFENesin w/Codeine 5ml Liq ud ORAL PRN ×3 (03:58→21:19)
[2020-09-28 04:00] VITALS: BP 142/68
[2020-09-28] MEDS: Meropenem 500 MG in NS 55 ML IVPB SCH ×3 (05:37→22:46)
[2020-09-28] MEDS: HydrOXYzine 50mg tab ORAL PRN (05:48)
[2020-09-28] MEDS: NovoLOG Insulin Flexpen SUBQ SCH ×4 (05:55→21:00)
[2020-09-28 08:00] VITALS: BP 121/63
--- NOTE | 2020-09-28 08:00 | General Progress Note ---
Subjective ROS Limited/Unobtainable: No Constitutional: Reports: malaise, weakness HEENT: Reports: no symptoms Cardiovascular: Reports: no symptoms Respiratory: Reports: cough, shortness of breath Gastrointestinal/Abdominal: Reports: no symptoms Genitourinary: Reports: no symptoms Neurologic/Psychiatric: Reports: no symptoms Endocrine: Reports: no symptoms Hematologic/Lymphatic: Reports: no symptoms Allergies: Coded Allergies: AMOXICILLIN (Verified Allergy, Mild, RASH HIVES, 09/29/13) ERYTHROMYCIN BASE (Unverified Allergy, Unknown, 10/13/17) IODINE (Verified Allergy, Unknown, 09/29/13) PENICILLINS (Verified Allergy, Unknown, RASH HIVES, 09/29/13) All Systems: reviewed and negative except above Subjective c/o sore throat and cough. +low grade fevers. covid pcr sent. started on d ecadron last night for presumed covid. Objective Last 24 Hour Vital Signs Date Time Temp Pulse Resp B/P (MAP) Pulse Ox O2 Delivery O2 Flow Rate FiO2 09/28/20 04:00 98.6 101 24 142/68 (92) 98 09/28/20 03:00 96 26 96 35 09/28/20 02:00 91 20 98 Nasal Cannula 4.0 36 78 24 96 09/28/20 00:00 99.1 94 24 148/62 (90) 99 09/27/20 23:15 96 22 97 35 09/27/20 23:14 93 20 98 Bi-Pap 35 88 22 95 09/27/20 21:00 Nasal Cannula 1.0 09/27/20 20:00 99.0 96 20 142/61 (88) 98 09/27/20 19:31 98 Nasal Cannula 4.0 28 09/27/20 19:31 119 20 98 Nasal Cannula 4.0 36 108 21 96 09/27/20 16:00 99.3 96 19 133/57 (82) 100 09/27/20 12:00 100.2 106 20 138/66 (90) 99 09/27/20 11:33 90 18 100 Nasal Cannula 4.0 36 86 18 98 09/27/20 09:07 86 151/66 09/27/20 09:00 Nasal Cannula 1.0 09/27/20 08:00 99.5 86 19 151/66 (94) 96 Intake and Output 09/27/20 09/28/20 19:00 07:00 Intake Total 1120 ml Balance 1120 ml Intake Oral 1120 ml # Voids 4 3 # Bowel Movements 1 Height (Feet): 5 Height (Inches): 1.00 Weight (Pounds): 210 Objective General Appearance: WD/WN, alert, mild distress EENT: PERRL/EOMI, normal ENT inspection Neck: non-tender, normal alignment Cardiovascular: normal peripheral pulses, normal rate, regular rhythm Respiratory/Chest: chest wall non-tender, lungs clear, no respiratory distress, no accessory muscle use, +expiratory wheezing Abdomen: normal bowel sounds, non tender, soft, no organomegaly Edema: no edema noted Arm (L), no edema noted Arm (R) 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 II-XII grossly normal, no motor/sensory deficits, alert, oriented x 3, responsive, normal mood/affect Assessment/Plan Problem List: (1) Facial cellulitis ICD Codes: L03.211 - Cellulitis of face SNOMED: 369218344 (2) COPD exacerbation ICD Codes: J44.1 - COPD exacerbation SNOMED: 633046428 (3) Toxic metabolic encephalopathy ICD Codes: G92 - Toxic encephalopathy SNOMED: 282501349 (4) Hypertension, malignant ICD Codes: I10 - Hypertension, malignant SNOMED: 46801193 (5) Diabetes mellitus ICD Codes: E11.9 - Diabetes mellitus SNOMED: 07850784 Status: stable, progressing Assessment/Plan: resp added guaifenesin o2 as needed psych rx ID eval noted check covid pcr meropenem per ID decadron added- can dc if covid pcr neg monitor bs cont bp rx dvt/stress ulcer prophylaxis Floyd Downey MD Sep 28, 2020 08:00
[2020-09-28] MEDS: Vitamin B Complex Tab ORAL SCH (10:00)
[2020-09-28] MEDS: Ascorbic Acid 500mg tab ORAL SCH (10:00)
[2020-09-28] MEDS: Anastrazole 1mg tab ORAL SCH (10:01)
[2020-09-28] MEDS: Sertraline 100mg tab ORAL SCH (10:02)
[2020-09-28] MEDS: Heparin 5000 units/ml inj SUBQ SCH ×2 (10:02→21:20)
[2020-09-28] MEDS: Lactobacillus-GG tablet ORAL SCH ×2 (10:02→18:13)
[2020-09-28] MEDS: guaiFENesin ER 600mg tab ORAL SCH ×2 (10:02→18:13)
[2020-09-28] MEDS: Vitamin D 1000 units Tab ORAL SCH (10:09)
--- NOTE | 2020-09-28 10:20 | Diagnostic Imaging Report ---
Indication: Shortness of breath Technique: One view of the chest Comparison: 09/26/2020 Findings: There is some respiratory motion blurring. There is increasing bilateral basilar atelectasis and possibly some right infrahilar consolidation. The left hemidiaphragm is now obscured, left basilar infiltrate and/or pleural fluid likely. The heart is upper limits normal in size. Right-sided small Bochdalek hernia is again demonstrated Impression: Increasing left greater than right bilateral basilar infiltrates and possibly left pleural fluid, over 2 days
--- NOTE | 2020-09-28 10:43 | Infectious Diseases Prog Note ---
Assessment/Plan Assessment/Plan A: 1. Klebsiella urinary tract infection. 2. Facial cellulitis. 3. COPD exacerbation. 4. DM with hyperglycemia 5 HPN 6. Penicillin allergy PLAN: 1. continue IV meropenem X 2 days 2. We will follow up cultures and adjust antibiotics accordingly. Subjective ROS Limited/Unobtainable: Yes Constitutional: Denies: fever Allergies: Coded Allergies: AMOXICILLIN (Verified Allergy, Mild, RASH HIVES, 09/29/13) ERYTHROMYCIN BASE (Unverified Allergy, Unknown, 10/13/17) IODINE (Verified Allergy, Unknown, 09/29/13) PENICILLINS (Verified Allergy, Unknown, RASH HIVES, 09/29/13) Objective Last 24 Hour Vital Signs Date Time Temp Pulse Resp B/P (MAP) Pulse Ox O2 Delivery O2 Flow Rate FiO2 09/28/20 10:04 89 121/63 09/28/20 08:00 99.2 89 18 121/63 (82) 97 09/28/20 04:00 98.6 101 24 142/68 (92) 98 09/28/20 03:00 96 26 96 35 09/28/20 02:00 91 20 98 Nasal Cannula 4.0 36 78 24 96 09/28/20 00:00 99.1 94 24 148/62 (90) 99 09/27/20 23:15 96 22 97 35 09/27/20 23:14 93 20 98 Bi-Pap 35 88 22 95 09/27/20 21:00 Nasal Cannula 1.0 09/27/20 20:00 99.0 96 20 142/61 (88) 98 09/27/20 19:31 98 Nasal Cannula 4.0 28 09/27/20 19:31 119 20 98 Nasal Cannula 4.0 36 108 21 96 09/27/20 16:00 99.3 96 19 133/57 (82) 100 09/27/20 12:00 100.2 106 20 138/66 (90) 99 09/27/20 11:33 90 18 100 Nasal Cannula 4.0 36 86 18 98 Height (Feet): 5 Height (Inches): 1.00 Weight (Pounds): 210 General Appearance: no acute distress HEENT: mucous membranes moist Respiratory/Chest: lungs clear Cardiovascular: normal rate Abdomen: soft, non tender Neurologic/Psychiatric: alert, responsive Microbiology Date/Time Source Procedure Growth Status 09/27/20 12:00 Sputum Gram Stain Pending Resulted 09/27/20 12:00 Sputum Sputum Culture - Preliminary NORMAL UPPER RESPIRATORY TIO AT 24 ... Resulted Current Medications Medications (Trade) Dose Ordered Sig/Sera Route PRN Reason Start Time Stop Time Status Last Admin Dose Admin Acetaminophen (Tylenol) 650 mg Q4H PRN ORAL Mild Pain (Pain Scale 1-3) 09/18/20 23:45 10/18/20 23:44 09/28/20 05:49 Albuterol/ Ipratropium (Albuterol/ Ipratropium) 3 ml Q2H PRN INH Shortness of Breath 09/27/20 22:00 10/27/20 21:59 Albuterol/ Ipratropium (Albuterol/ Ipratropium) 3 ml Q4HRT HHN 09/25/20 11:00 09/30/20 10:59 09/28/20 02:00 Amlodipine Besylate (Norvasc) 5 mg DAILY ORAL 09/19/20 09:00 10/19/20 08:59 09/28/20 10:04 Anastrozole (Arimidex) 1 mg DAILY ORAL 09/19/20 09:00 10/19/20 08:59 09/28/20 10:01 Ascorbic Acid (Vitamin C) 500 mg DAILY ORAL 09/21/20 09:00 10/21/20 08:59 09/28/20 10:00 Cetylpyridinium Chloride (Cepacol) 1 lozg EVERY 2 HOURS PRN LAURA For Cough 09/25/20 18:15 12/24/20 18:14 09/28/20 03:58 Clonidine HCl (Catapres Tab) 0.1 mg Q4H PRN ORAL SBP > 160 09/19/20 17:15 12/18/20 17:14 09/24/20 03:09 Dexamethasone (Decadron) 6 mg DAILY ORAL 09/28/20 09:00 10/07/20 08:59 09/28/20 10:01 Dextrose (Dextrose 50%) 25 ml Q30M PRN IV Hypoglycemia 09/18/20 19:00 12/17/20 18:59 Dextrose (Dextrose 50%) 50 ml Q30M PRN IV Hypoglycemia 09/18/20 19:00 12/17/20 18:59 Fluticasone Propionate (Flonase) 1 spray QHS NASAL 09/18/20 21:00 10/18/20 20:59 09/27/20 22:13 Furosemide (Lasix) 20 mg DAILY ORAL 09/27/20 09:00 10/27/20 08:59 09/28/20 10:03 Guaifenesin (Mucinex ER) 600 mg TWICE A DAY ORAL 09/25/20 09:00 12/24/20 08:59 09/28/20 10:02 Guaifenesin/ Codeine Phosphate (Robitussin with codeine) 5 ml Q6H PRN ORAL For Cough 09/27/20 18:30 10/27/20 18:29 09/28/20 03:58 Heparin Sodium (Porcine) (Heparin 5000 units/ml) 5,000 units EVERY 12 HOURS SUBQ 09/18/20 21:00 11/02/20 20:59 09/28/20 10:02 Hydroxyzine HCl (Atarax) 50 mg Q4H PRN ORAL Itching 09/19/20 06:15 10/19/20 06:14 09/28/20 05:48 Insulin Aspart (NovoLOG) BEFORE MEALS AND HS SUBQ 09/18/20 21:00 12/17/20 20:59 09/28/20 05:55 Lactobacillus Acidophilus (Culturelle) 1 tab TWICE A DAY ORAL 09/25/20 18:00 12/24/20 17:59 09/28/20 10:02 Meropenem 500 mg/ Sodium Chloride 55 ml @ 110 mls/hr EVERY 8 HOURS IVPB 09/25/20 14:00 09/30/20 13:59 09/28/20 05:37 Ondansetron HCl (Zofran) 4 mg Q6H PRN IVP Nausea & Vomiting 09/18/20 19:00 10/18/20 18:59 09/28/20 05:37 Pantoprazole (Protonix) 40 mg DAILY ORAL 09/19/20 09:00 10/19/20 08:59 09/27/20 09:07 Potassium Chloride (K-Dur) 20 meq DAILY ORAL 09/20/20 09:00 12/19/20 08:59 09/28/20 10:03 Sertraline HCl (Zoloft) 100 mg DAILY ORAL 09/19/20 09:00 10/19/20 08:59 09/28/20 10:02 Vitamin B Complex (Vitamin B Complex) 1 tab DAILY ORAL 09/21/20 09:00 12/20/20 08:59 09/28/20 10:00 Vitamin D (Vitamin D) 1,000 unit DAILY ORAL 09/28/20 09:30 10/28/20 09:29 09/28/20 10:09 Zolpidem Tartrate (Ambien) 5 mg HSPRN PRN ORAL Insomnia 09/22/20 14:45 09/29/20 14:44 09/27/20 22:44 Rene Schultz MD Sep 28, 2020 10:43
[2020-09-28 11:04] LABS: BASOPHILS % (AUTO) 2.4 % (0.0-2.0); EOSINOPHILS % (AUTO) 0.2 % (0.0-3.0); HEMATOCRIT 28.8 % (37.0-47.0); HEMOGLOBIN 9.5 G/DL (12.0-16.0); LYMPHOCYTES % (AUTO) 23.5 % (20.0-45.0); MEAN CORPUSCULAR VOLUME 85 FL (80-99); PLATELET COUNT 222 K/UL (150-450); RED BLOOD COUNT 3.37 M/UL (4.20-5.40); RED CELL DISTRIBUTION WIDTH 14.1 % (11.6-14.8); WHITE BLOOD COUNT 9.1 K/UL (4.8-10.8)
[2020-09-28 11:39] LABS: ALANINE AMINOTRANSFERASE 21 U/L (12-78); ALBUMIN 2.5 G/DL (3.4-5.0); ALBUMIN/GLOBULIN RATIO 0.7 (1.0-2.7); ALKALINE PHOSPHATASE 58 U/L (46-116); ANION GAP 6 mmol/L (5-15); ASPARTATE AMINO TRANSFERASE 24 U/L (15-37); BILIRUBIN,TOTAL 0.2 MG/DL (0.2-1.0); BLOOD UREA NITROGEN 16 mg/dL (7-18); CALCIUM 8.2 MG/DL (8.5-10.1); CARBON DIOXIDE 32 MMOL/L (21-32); CHLORIDE 99 MMOL/L (98-107); CREATININE 0.8 MG/DL (0.55-1.30); SODIUM 137 MMOL/L (136-145)
[2020-09-28 12:00] VITALS: BP 121/57
--- NOTE | 2020-09-28 14:23 | Pulmonology Progress Note ---
Subjective ROS Limited/Unobtainable: Yes Constitutional: Denies: fever Gastrointestinal/Abdominal: Reports: nausea; Denies: vomiting, diarrhea Allergies: Coded Allergies: AMOXICILLIN (Verified Allergy, Mild, RASH HIVES, 09/29/13) ERYTHROMYCIN BASE (Unverified Allergy, Unknown, 10/13/17) IODINE (Verified Allergy, Unknown, 09/29/13) PENICILLINS (Verified Allergy, Unknown, RASH HIVES, 09/29/13) All Systems: reviewed and negative except above Subjective care noted noted congestion and sputum green in color sputum pending on diuretics skin care noted afraid to go home UTI+ Objective Last 24 Hour Vital Signs Date Time Temp Pulse Resp B/P (MAP) Pulse Ox O2 Delivery O2 Flow Rate FiO2 09/28/20 10:04 89 121/63 09/28/20 08:01 96 Nasal Cannula 4.0 28 09/28/20 08:00 99.2 89 18 121/63 (82) 97 09/28/20 04:00 98.6 101 24 142/68 (92) 98 09/28/20 03:00 96 26 96 35 09/28/20 02:00 91 20 98 Nasal Cannula 4.0 36 78 24 96 09/28/20 00:00 99.1 94 24 148/62 (90) 99 09/27/20 23:15 96 22 97 35 09/27/20 23:14 93 20 98 Bi-Pap 35 88 22 95 09/27/20 21:00 Nasal Cannula 1.0 09/27/20 20:00 99.0 96 20 142/61 (88) 98 09/27/20 19:31 98 Nasal Cannula 4.0 28 09/27/20 19:31 119 20 98 Nasal Cannula 4.0 36 108 21 96 09/27/20 16:00 99.3 96 19 133/57 (82) 100 Intake and Output 09/27/20 09/28/20 19:00 07:00 Intake Total 1120 ml Balance 1120 ml Intake Oral 1120 ml # Voids 4 3 # Bowel Movements 1 Objective WDWN NAD reduced breath sounds bilaterally without rhonchi or wheeze [id number] without MRG NABS nontender no HSM no CCE nonfocal dyspneic Microbiology Date/Time Source Procedure Growth Status 09/27/20 12:00 Sputum Gram Stain - Final Resulted 09/27/20 12:00 Sputum Sputum Culture - Preliminary NORMAL UPPER RESPIRATORY TIO AT 24 ... Resulted Laboratory Tests 09/27/20 16:16: POC Whole Blood Glucose 344H 09/28/20 10:20: White Blood Count 9.1, Red Blood Count 3.37L, Hemoglobin 9.5L, Hematocrit 28.8L, Mean Corpuscular Volume 85, Mean Corpuscular Hemoglobin 28.1, Mean Corpuscular Hemoglobin Concent 32.9, Red Cell Distribution Width 14.1, Platelet Count 222, Mean Platelet Volume 8.2, Neutrophils (%) (Auto) 67.0, Lymphocytes (%) (Auto) 23.5, Monocytes (%) (Auto) 7.0, Eosinophils (%) (Auto) 0.2, Basophils (%) (Auto) 2.4H, Sodium Level 137, Potassium Level 4.0, Chloride Level 99, Carbon Dioxide Level 32, Anion Gap 6, Blood Urea Nitrogen 16, Creatinine 0.8, Estimat Glomerular Filtration Rate > 60, Glucose Level 120H, Calcium Level 8.2L, Magnesium Level 1.7L, Total Bilirubin 0.2, Aspartate Amino Transf (AST/SGOT) 24, Alanine Aminotransferase (ALT/SGPT) 21, Alkaline Phosphatase 58, Pro-B-Type Natriuretic Peptide [Pending], Total Protein 6.2L, Albumin 2.5L, Globulin 3.7, Albumin/Globulin Ratio 0.7L 09/28/20 11:37: POC Whole Blood Glucose [Pending] Current Medications Medications (Trade) Dose Ordered Sig/Sera Route PRN Reason Start Time Stop Time Status Last Admin Dose Admin Acetaminophen (Tylenol) 650 mg Q4H PRN ORAL Mild Pain (Pain Scale 1-3) 09/18/20 23:45 10/18/20 23:44 09/28/20 13:32 Albuterol/ Ipratropium (Albuterol/ Ipratropium) 3 ml Q2H PRN INH Shortness of Breath 09/27/20 22:00 10/27/20 21:59 Albuterol/ Ipratropium (Albuterol/ Ipratropium) 3 ml Q4HRT HHN 09/25/20 11:00 09/30/20 10:59 09/28/20 02:00 Amlodipine Besylate (Norvasc) 5 mg DAILY ORAL 09/19/20 09:00 1/7/21 08:59 09/28/20 10:04 Anastrozole (Arimidex) 1 mg DAILY ORAL 09/19/20 09:00 10/19/20 08:59 09/28/20 10:01 Ascorbic Acid (Vitamin C) 500 mg DAILY ORAL 09/21/20 09:00 10/21/20 08:59 09/28/20 10:00 Cetylpyridinium Chloride (Cepacol) 1 lozg EVERY 2 HOURS PRN LAURA For Cough 09/25/20 18:15 12/24/20 18:14 09/28/20 03:58 Clonidine HCl (Catapres Tab) 0.1 mg Q4H PRN ORAL SBP > 160 09/19/20 17:15 12/18/20 17:14 09/24/20 03:09 Dexamethasone (Decadron) 6 mg DAILY ORAL 09/28/20 09:00 10/07/20 08:59 09/28/20 10:01 Dextrose (Dextrose 50%) 25 ml Q30M PRN IV Hypoglycemia 09/18/20 19:00 12/17/20 18:59 Dextrose (Dextrose 50%) 50 ml Q30M PRN IV Hypoglycemia 09/18/20 19:00 12/17/20 18:59 Fluticasone Propionate (Flonase) 1 spray QHS NASAL 09/18/20 21:00 10/18/20 20:59 09/27/20 22:13 Furosemide (Lasix) 20 mg DAILY ORAL 09/27/20 09:00 10/27/20 08:59 09/28/20 10:03 Guaifenesin (Mucinex ER) 600 mg TWICE A DAY ORAL 09/25/20 09:00 12/24/20 08:59 09/28/20 10:02 Guaifenesin/ Codeine Phosphate (Robitussin with codeine) 5 ml Q6H PRN ORAL For Cough 09/27/20 18:30 10/27/20 18:29 09/28/20 13:33 Heparin Sodium (Porcine) (Heparin 5000 units/ml) 5,000 units EVERY 12 HOURS SUBQ 09/18/20 21:00 11/02/20 20:59 09/28/20 10:02 Hydroxyzine HCl (Atarax) 50 mg Q4H PRN ORAL Itching 09/19/20 06:15 10/19/20 06:14 09/28/20 05:48 Insulin Aspart (NovoLOG) BEFORE MEALS AND HS SUBQ 09/18/20 21:00 12/17/20 20:59 09/28/20 05:55 Lactobacillus Acidophilus (Culturelle) 1 tab TWICE A DAY ORAL 09/25/20 18:00 12/24/20 17:59 09/28/20 10:02 Meropenem 500 mg/ Sodium Chloride 55 ml @ 110 mls/hr EVERY 8 HOURS IVPB 09/25/20 14:00 09/30/20 13:59 09/28/20 13:32 Ondansetron HCl (Zofran) 4 mg Q6H PRN IVP Nausea & Vomiting 09/18/20 19:00 10/18/20 18:59 09/28/20 05:37 Pantoprazole (Protonix) 40 mg DAILY ORAL 09/19/20 09:00 10/19/20 08:59 09/27/20 09:07 Potassium Chloride (K-Dur) 20 meq DAILY ORAL 09/20/20 09:00 12/19/20 08:59 09/28/20 10:03 Sertraline HCl (Zoloft) 100 mg DAILY ORAL 09/19/20 09:00 10/19/20 08:59 09/28/20 10:02 Vitamin B Complex (Vitamin B Complex) 1 tab DAILY ORAL 09/21/20 09:00 12/20/20 08:59 09/28/20 10:00 Vitamin D (Vitamin D) 1,000 unit DAILY ORAL 09/28/20 09:30 10/28/20 09:29 09/28/20 10:09 Zolpidem Tartrate (Ambien) 5 mg HSPRN PRN ORAL Insomnia 09/22/20 14:45 09/29/20 14:44 09/27/20 22:44 Assessment/Plan Assessment/Plan ASSESSMENT: Chronic respiratory failure COPD exacerbation and facial cellulitis. diabetes, hypertension, chronic hypoxemia chronic debility, pulmonary congestion PLAN: DME for new o2 concentrator and nebulizer dc planning in progress sputum culture concern of dc as CXR worse; ? increase lasix per cardiology intensify antibiotics per ID respiratory care as is home meds supportive care oxygen therapy and monitor patient very anxious about the COVID pandemic prognosis guarded impression, plan, and exam edited and reviewed in detail care discussed with Froilan Clarke MD Sep 28, 2020 14:23
[2020-09-28 16:00] VITALS: BP 111/73
[2020-09-28] MEDS: LORazepam 1mg tab ORAL PRN ×2 (16:37→22:47)
[2020-09-28] MEDS: Cyclobenzaprine 10mg Tab ORAL PRN (18:28)
[2020-09-28 20:00] VITALS: BP 131/74
[2020-09-28] MEDS: Zolpidem 5mg tab ORAL PRN (21:19)
[2020-09-28] MEDS: Flonase Nasal Inhaler 16gm NASAL SCH (21:20)
--- NOTE | 2020-09-28 23:55 | Cardiology Progress Note ---
Subjective DATE OF SERVICE: Sep 28, 2020 More wheezing and congestion with fevers since yesterday. Facial swelling resolved. Glucose still elevated. No CP. Urine Culture positive for MDR pathogen Covid 19 swab negative on admit; repeat PCR pending. CXR (09/28) Worsening infiltrates bilaterally with left eff'n Objective Last 24 Hour Vital Signs Date Time Temp Pulse Resp B/P (MAP) Pulse Ox O2 Delivery O2 Flow Rate FiO2 09/28/20 23:17 90 31 121/57 99 09/28/20 22:47 90 31 121/57 99 09/28/20 22:00 90 31 99 35 09/28/20 20:09 100 Nasal Cannula 4.0 36 09/28/20 17:07 106 20 121/57 96 09/28/20 16:37 106 20 121/57 96 09/28/20 16:00 98.0 100 20 111/73 (86) 96 09/28/20 12:00 98.4 106 20 121/57 (78) 96 09/28/20 10:04 89 121/63 09/28/20 09:00 Nasal Cannula 2.0 09/28/20 08:01 96 Nasal Cannula 4.0 28 09/28/20 08:00 99.2 89 18 121/63 (82) 97 09/28/20 04:00 98.6 101 24 142/68 (92) 98 09/28/20 03:00 96 26 96 35 09/28/20 02:00 91 20 98 Nasal Cannula 4.0 36 78 24 96 09/28/20 00:00 99.1 94 24 148/62 (90) 99 ROS: unchanged from 09/18/20 HEENT: normal ENT inspection RHYTHM: NSR, ST, PACs LUNGS: bilateral rhonchi, coarse breath sounds CARDIAC: normal rate, regular rhythm, normal S1 and S2, gallop/S4 ABDOMEN: normal bowel sounds, non tender, soft, no organomegaly, other - obese EXTREMITIES: +1 edema Laboratory Tests Test 09/28/20 10:20 09/28/20 11:37 09/28/20 16:37 09/28/20 20:07 White Blood Count 9.1 K/UL (4.8-10.8) Red Blood Count 3.37 M/UL (4.20-5.40) L Hemoglobin 9.5 G/DL (12.0-16.0) L Hematocrit 28.8 % (37.0-47.0) L Mean Corpuscular Volume 85 FL (80-99) Mean Corpuscular Hemoglobin 28.1 PG (27.0-31.0) Mean Corpuscular Hemoglobin Concent 32.9 G/DL (32.0-36.0) Red Cell Distribution Width 14.1 % (11.6-14.8) Platelet Count 222 K/UL (150-450) Mean Platelet Volume 8.2 FL (6.5-10.1) Neutrophils (%) (Auto) 67.0 % (45.0-75.0) Lymphocytes (%) (Auto) 23.5 % (20.0-45.0) Monocytes (%) (Auto) 7.0 % (1.0-10.0) Eosinophils (%) (Auto) 0.2 % (0.0-3.0) Basophils (%) (Auto) 2.4 % (0.0-2.0) H Sodium Level 137 MMOL/L (136-145) Potassium Level 4.0 MMOL/L (3.5-5.1) Chloride Level 99 MMOL/L (98-107) Carbon Dioxide Level 32 MMOL/L (21-32) Anion Gap 6 mmol/L (5-15) Blood Urea Nitrogen 16 mg/dL (7-18) Creatinine 0.8 MG/DL (0.55-1.30) Estimat Glomerular Filtration Rate > 60 mL/min (>60) Glucose Level 120 MG/DL (74-106) H Calcium Level 8.2 MG/DL (8.5-10.1) L Magnesium Level 1.7 MG/DL (1.8-2.4) L Total Bilirubin 0.2 MG/DL (0.2-1.0) Aspartate Amino Transf (AST/SGOT) 24 U/L (15-37) Alanine Aminotransferase (ALT/SGPT) 21 U/L (12-78) Alkaline Phosphatase 58 U/L (46-116) Pro-B-Type Natriuretic Peptide Pending Total Protein 6.2 G/DL (6.4-8.2) L Albumin 2.5 G/DL (3.4-5.0) L Globulin 3.7 g/dL Albumin/Globulin Ratio 0.7 (1.0-2.7) L POC Whole Blood Glucose Pending 355 MG/DL (74-106) H 135 MG/DL (74-106) H Test 09/28/20 21:25 Troponin I 0.000 ng/mL (0.000-0.056) Microbiology Date/Time Source Procedure Growth Status 09/27/20 12:00 Sputum Gram Stain - Final Resulted 09/27/20 12:00 Sputum Sputum Culture - Preliminary NORMAL UPPER RESPIRATORY TIO AT 24 ... Resulted Assessment/Plan Assessment/Plan COPD exacerbation with hypoxia Acute bronchitis worsening. Covid 19 PCR negative on admit; repeat swab 09/27 pending - now with presumed Covid19 PNA Ac/chr diastolic CHF with decreasing BNP now - clinically compensated. Hx breast CA Paroxysmal atrial ectopy Hypertensive heart disease Sinus tachycardia improved UTI - K.pn (multi-drug resistant) IRDM uncontrolled on steroids Continue IV steroids Await new Covid 19 swab O2 suppl and bronchodilator rx Anti-coagulation IV Abx per ID Diuresis based on clinical parameters; trend BNP. Titrate antiHTN regimen as needed. PT/OT Insulin coverage Werner Martinez MD Sep 28, 2020 23:54
[2020-09-29] VITALS: BP 113/64
[2020-09-29 04:00] VITALS: BP 145/63
[2020-09-29] MEDS: LORazepam 1mg tab ORAL PRN ×2 (05:36→22:23)
[2020-09-29] MEDS: HydrOXYzine 50mg tab ORAL PRN (05:36)
[2020-09-29] MEDS: Meropenem 500 MG in NS 55 ML IVPB SCH ×3 (05:37→22:22)
[2020-09-29] MEDS: NovoLOG Insulin Flexpen SUBQ SCH ×4 (05:57→21:00)
[2020-09-29 08:00] VITALS: BP 142/72
[2020-09-29] MEDS: Lactobacillus-GG tablet ORAL SCH ×2 (09:00→18:36)
[2020-09-29] MEDS ORDERED: Vitamin D 1000 units Tab ORAL SCH (09:30)
[2020-09-29] MEDS: Vitamin B Complex Tab ORAL SCH (09:43)
[2020-09-29] MEDS: Sertraline 100mg tab ORAL SCH (09:43)
[2020-09-29] MEDS: Ascorbic Acid 500mg tab ORAL SCH (09:43)
[2020-09-29] MEDS: guaiFENesin ER 600mg tab ORAL SCH ×2 (09:43→18:36)
[2020-09-29] MEDS: Vitamin D 1000 units Tab ORAL SCH (09:44)
[2020-09-29] MEDS: Anastrazole 1mg tab ORAL SCH (09:44)
[2020-09-29] MEDS: Heparin 5000 units/ml inj SUBQ SCH ×2 (09:48→22:24)
--- NOTE | 2020-09-29 11:01 | Infectious Diseases Prog Note ---
Assessment/Plan Assessment/Plan antibiotics : meropenem A 1. Klebsiella urinary tract infection. 2. Facial cellulitis improving 3. COPD exacerbation. 4. diabetes mellitus 5. hypertension 6. CHF 7. breast cancer 8. COVID 19 pneumonia on 4 liters O2, saturation 96 % P 1. start remdesivir 2. continue dexamethasone day 2 3. continue meropenem 2 more days 4. will follow up cultures Subjective Constitutional: Denies: fever, chills Respiratory: Reports: shortness of breath, dry cough Gastrointestinal/Abdominal: Denies: nausea, vomiting, diarrhea Musculoskeletal: Reports: pain - in chest Allergies: Coded Allergies: AMOXICILLIN (Verified Allergy, Mild, RASH HIVES, 09/29/13) ERYTHROMYCIN BASE (Unverified Allergy, Unknown, 10/13/17) IODINE (Verified Allergy, Unknown, 09/29/13) PENICILLINS (Verified Allergy, Unknown, RASH HIVES, 09/29/13) Objective Last 24 Hour Vital Signs Date Time Temp Pulse Resp B/P (MAP) Pulse Ox O2 Delivery O2 Flow Rate FiO2 09/29/20 09:45 102 142/72 09/29/20 07:44 96 Nasal Cannula 4.0 36 09/29/20 06:07 98.9 09/29/20 06:06 93 26 113/64 98 09/29/20 05:50 93 26 98 35 09/29/20 05:36 66 18 113/64 95 09/29/20 04:00 98.9 104 20 145/63 (90) 95 09/29/20 00:00 97.7 66 18 113/64 (80) 95 09/28/20 23:17 90 31 121/57 99 09/28/20 22:47 90 31 121/57 99 09/28/20 22:00 90 31 99 35 09/28/20 21:00 Nasal Cannula 2.0 09/28/20 20:09 100 Nasal Cannula 4.0 36 09/28/20 20:00 98.9 100 18 131/74 (93) 96 09/28/20 17:07 106 20 121/57 96 09/28/20 16:37 106 20 121/57 96 09/28/20 16:00 98.0 100 20 111/73 (86) 96 09/28/20 12:00 98.4 106 20 121/57 (78) 96 Height (Feet): 5 Height (Inches): 1.00 Weight (Pounds): 210 Microbiology Date/Time Source Procedure Growth Status 09/27/20 18:15 Nasopharynx Coronavirus COVID-19 PCR ([facility]) - Final Complete 09/27/20 12:00 Sputum Gram Stain - Final Complete 09/27/20 12:00 Sputum Sputum Culture - Final NORMAL UPPER RESPIRATORY TIO PRESENT Complete Laboratory Tests Test 09/28/20 11:37 09/28/20 16:37 09/28/20 20:07 09/28/20 21:25 POC Whole Blood Glucose Pending 355 MG/DL (74-106) H 135 MG/DL (74-106) H Troponin I 0.000 ng/mL (0.000-0.056) Test 09/29/20 05:44 POC Whole Blood Glucose Pending Current Medications Medications (Trade) Dose Ordered Sig/Sera Route PRN Reason Start Time Stop Time Status Last Admin Dose Admin Acetaminophen (Tylenol) 650 mg Q4H PRN ORAL Mild Pain (Pain Scale 1-3) 09/18/20 23:45 10/18/20 23:44 09/29/20 05:37 Albuterol/ Ipratropium (Albuterol/ Ipratropium) 3 ml Q2H PRN INH Shortness of Breath 09/27/20 22:00 10/27/20 21:59 Amlodipine Besylate (Norvasc) 5 mg DAILY ORAL 09/19/20 09:00 10/19/20 08:59 09/29/20 09:45 Anastrozole (Arimidex) 1 mg DAILY ORAL 09/19/20 09:00 10/19/20 08:59 09/29/20 09:44 Ascorbic Acid (Vitamin C) 500 mg DAILY ORAL 09/21/20 09:00 10/21/20 08:59 09/29/20 09:43 Cetylpyridinium Chloride (Cepacol) 1 lozg EVERY 2 HOURS PRN LAURA For Cough 09/25/20 18:15 12/24/20 18:14 09/28/20 21:19 Clonidine HCl (Catapres Tab) 0.1 mg Q4H PRN ORAL SBP > 160 09/19/20 17:15 12/18/20 17:14 09/24/20 03:09 Cyclobenzaprine HCl (Flexeril) 10 mg TIDPRN PRN ORAL Muscle Spasm 09/28/20 18:13 10/05/20 18:12 09/28/20 18:28 Dexamethasone (Decadron) 6 mg DAILY ORAL 09/28/20 09:00 10/07/20 08:59 09/29/20 09:44 Dextrose (Dextrose 50%) 25 ml Q30M PRN IV Hypoglycemia 09/18/20 19:00 12/17/20 18:59 Dextrose (Dextrose 50%) 50 ml Q30M PRN IV Hypoglycemia 09/18/20 19:00 12/17/20 18:59 Fluticasone Propionate (Flonase) 1 spray QHS NASAL 09/18/20 21:00 10/18/20 20:59 09/28/20 21:20 Furosemide (Lasix) 20 mg DAILY ORAL 09/27/20 09:00 10/27/20 08:59 09/29/20 09:43 Guaifenesin (Mucinex ER) 600 mg TWICE A DAY ORAL 09/25/20 09:00 12/24/20 08:59 09/29/20 09:43 Guaifenesin/ Codeine Phosphate (Robitussin with codeine) 5 ml Q6H PRN ORAL For Cough 09/27/20 18:30 10/27/20 18:29 09/28/20 21:19 Heparin Sodium (Porcine) (Heparin 5000 units/ml) 5,000 units EVERY 12 HOURS SUBQ 09/18/20 21:00 11/02/20 20:59 09/29/20 09:48 Hydroxyzine HCl (Atarax) 50 mg Q4H PRN ORAL Itching 09/19/20 06:15 10/19/20 06:14 09/29/20 05:36 Insulin Aspart (NovoLOG) BEFORE MEALS AND HS SUBQ 09/18/20 21:00 12/17/20 20:59 09/29/20 05:57 Lactobacillus Acidophilus (Culturelle) 1 tab TWICE A DAY ORAL 09/25/20 18:00 12/24/20 17:59 09/28/20 18:13 Lorazepam (Ativan) 1 mg Q6H PRN ORAL For Anxiety 09/28/20 14:45 10/05/20 14:44 09/29/20 05:36 Meropenem 500 mg/ Sodium Chloride 55 ml @ 110 mls/hr EVERY 8 HOURS IVPB 09/25/20 14:00 09/30/20 13:59 09/29/20 05:37 Ondansetron HCl (Zofran) 4 mg Q6H PRN IVP Nausea & Vomiting 09/18/20 19:00 10/18/20 18:59 09/28/20 05:37 Pantoprazole (Protonix) 40 mg DAILY ORAL 09/19/20 09:00 10/19/20 08:59 09/29/20 09:43 Potassium Chloride (K-Dur) 20 meq DAILY ORAL 09/20/20 09:00 12/19/20 08:59 09/29/20 09:43 Sertraline HCl (Zoloft) 100 mg DAILY ORAL 09/19/20 09:00 10/19/20 08:59 09/29/20 09:43 Vitamin B Complex (Vitamin B Complex) 1 tab DAILY ORAL 09/21/20 09:00 12/20/20 08:59 09/29/20 09:43 Vitamin D (Vitamin D) 1,000 unit DAILY ORAL 09/28/20 09:30 10/28/20 09:29 09/29/20 09:44 Zolpidem Tartrate (Ambien) 5 mg HSPRN PRN ORAL Insomnia 09/22/20 14:45 09/29/20 14:44 09/28/20 21:19 Lo Delcid MD Sep 29, 2020 11:01
[2020-09-29 12:00] VITALS: BP 131/76
--- NOTE | 2020-09-29 12:35 | Pulmonology Progress Note ---
Subjective ROS Limited/Unobtainable: Yes Constitutional: Denies: fever, chills Gastrointestinal/Abdominal: Denies: nausea, vomiting, diarrhea Musculoskeletal: Reports: pain - in chest Allergies: Coded Allergies: AMOXICILLIN (Verified Allergy, Mild, RASH HIVES, 09/29/13) ERYTHROMYCIN BASE (Unverified Allergy, Unknown, 10/13/17) IODINE (Verified Allergy, Unknown, 09/29/13) PENICILLINS (Verified Allergy, Unknown, RASH HIVES, 09/29/13) All Systems: reviewed and negative except above Subjective care noted noted congestion and sputum green in color + COVID and on isolation on diuretics skin care noted dc on hold Objective Last 24 Hour Vital Signs Date Time Temp Pulse Resp B/P (MAP) Pulse Ox O2 Delivery O2 Flow Rate FiO2 09/29/20 11:16 Nasal Cannula 2.0 09/29/20 09:45 102 142/72 09/29/20 08:00 99.9 102 20 142/72 (95) 94 09/29/20 07:44 96 Nasal Cannula 4.0 36 09/29/20 06:07 98.9 09/29/20 06:06 93 26 113/64 98 09/29/20 05:50 93 26 98 35 09/29/20 05:36 66 18 113/64 95 09/29/20 04:00 98.9 104 20 145/63 (90) 95 09/29/20 00:00 97.7 66 18 113/64 (80) 95 09/28/20 23:17 90 31 121/57 99 09/28/20 22:47 90 31 121/57 99 09/28/20 22:00 90 31 99 35 09/28/20 21:00 Nasal Cannula 2.0 09/28/20 20:09 100 Nasal Cannula 4.0 36 09/28/20 20:00 98.9 100 18 131/74 (93) 96 09/28/20 17:07 106 20 121/57 96 09/28/20 16:37 106 20 121/57 96 09/28/20 16:00 98.0 100 20 111/73 (86) 96 Intake and Output 09/28/20 09/29/20 19:00 07:00 Intake Total 1200 ml 110 ml Output Total 600 ml Balance 1200 ml -490 ml IV Total 110 ml Other 1200 ml Output Urine Total 600 ml # Voids 2 Objective deferred due to COVID no distress alert nonfocal Microbiology Date/Time Source Procedure Growth Status 09/27/20 18:15 Nasopharynx Coronavirus COVID-19 PCR ([facility]) - Final Complete 09/27/20 12:00 Sputum Gram Stain - Final Complete 09/27/20 12:00 Sputum Sputum Culture - Final NORMAL UPPER RESPIRATORY TIO PRESENT Complete Laboratory Tests 09/28/20 16:37: POC Whole Blood Glucose 355H 09/28/20 20:07: POC Whole Blood Glucose 135H 09/28/20 21:25: Troponin I 0.000 09/29/20 05:44: POC Whole Blood Glucose [Pending] Current Medications Medications (Trade) Dose Ordered Sig/Sera Route PRN Reason Start Time Stop Time Status Last Admin Dose Admin Acetaminophen (Tylenol) 650 mg Q4H PRN ORAL Mild Pain (Pain Scale 1-3) 09/18/20 23:45 10/18/20 23:44 09/29/20 05:37 Albuterol/ Ipratropium (Albuterol/ Ipratropium) 3 ml Q2H PRN INH Shortness of Breath 09/27/20 22:00 10/27/20 21:59 Amlodipine Besylate (Norvasc) 5 mg DAILY ORAL 09/19/20 09:00 10/19/20 08:59 09/29/20 09:45 Anastrozole (Arimidex) 1 mg DAILY ORAL 09/19/20 09:00 10/19/20 08:59 09/29/20 09:44 Ascorbic Acid (Vitamin C) 500 mg DAILY ORAL 09/21/20 09:00 10/21/20 08:59 09/29/20 09:43 Cetylpyridinium Chloride (Cepacol) 1 lozg EVERY 2 HOURS PRN LAURA For Cough 09/25/20 18:15 12/24/20 18:14 09/28/20 21:19 Clonidine HCl (Catapres Tab) 0.1 mg Q4H PRN ORAL SBP > 160 09/19/20 17:15 12/18/20 17:14 09/24/20 03:09 Cyclobenzaprine HCl (Flexeril) 10 mg TIDPRN PRN ORAL Muscle Spasm 09/28/20 18:13 10/05/20 18:12 09/28/20 18:28 Dexamethasone (Decadron) 6 mg DAILY ORAL 09/28/20 09:00 10/07/20 08:59 09/29/20 09:44 Dextrose (Dextrose 50%) 25 ml Q30M PRN IV Hypoglycemia 09/18/20 19:00 12/17/20 18:59 Dextrose (Dextrose 50%) 50 ml Q30M PRN IV Hypoglycemia 09/18/20 19:00 12/17/20 18:59 Fluticasone Propionate (Flonase) 1 spray QHS NASAL 09/18/20 21:00 10/18/20 20:59 09/28/20 21:20 Furosemide (Lasix) 20 mg DAILY ORAL 09/27/20 09:00 10/27/20 08:59 09/29/20 09:43 Guaifenesin (Mucinex ER) 600 mg TWICE A DAY ORAL 09/25/20 09:00 12/24/20 08:59 09/29/20 09:43 Guaifenesin/ Codeine Phosphate (Robitussin with codeine) 5 ml Q6H PRN ORAL For Cough 09/27/20 18:30 10/27/20 18:29 09/28/20 21:19 Heparin Sodium (Porcine) (Heparin 5000 units/ml) 5,000 units EVERY 12 HOURS SUBQ 09/18/20 21:00 11/02/20 20:59 09/29/20 09:48 Hydroxyzine HCl (Atarax) 50 mg Q4H PRN ORAL Itching 09/19/20 06:15 10/19/20 06:14 09/29/20 05:36 Insulin Aspart (NovoLOG) BEFORE MEALS AND HS SUBQ 09/18/20 21:00 12/17/20 20:59 09/29/20 05:57 Lactobacillus Acidophilus (Culturelle) 1 tab TWICE A DAY ORAL 09/25/20 18:00 12/24/20 17:59 09/28/20 18:13 Lorazepam (Ativan) 1 mg Q6H PRN ORAL For Anxiety 09/28/20 14:45 10/05/20 14:44 09/29/20 05:36 Meropenem 500 mg/ Sodium Chloride 55 ml @ 110 mls/hr EVERY 8 HOURS IVPB 09/25/20 14:00 09/30/20 13:59 09/29/20 05:37 Ondansetron HCl (Zofran) 4 mg Q6H PRN IVP Nausea & Vomiting 09/18/20 19:00 10/18/20 18:59 09/29/20 11:53 Pantoprazole (Protonix) 40 mg DAILY ORAL 09/19/20 09:00 10/19/20 08:59 09/29/20 09:43 Potassium Chloride (K-Dur) 20 meq DAILY ORAL 09/20/20 09:00 12/19/20 08:59 09/29/20 09:43 Remdesivir 100 mg/ Sodium Chloride 250 ml @ 250 mls/hr Q24H IV 09/30/20 14:00 10/03/20 14:59 Remdesivir 200 mg/ Sodium Chloride 250 ml @ 125 mls/hr ONCE IV 09/29/20 14:00 09/29/20 15:59 Sertraline HCl (Zoloft) 100 mg DAILY ORAL 09/19/20 09:00 10/19/20 08:59 09/29/20 09:43 Vitamin B Complex (Vitamin B Complex) 1 tab DAILY ORAL 09/21/20 09:00 12/20/20 08:59 09/29/20 09:43 Vitamin D (Vitamin D) 1,000 unit DAILY ORAL 09/28/20 09:30 10/28/20 09:29 09/29/20 09:44 Zolpidem Tartrate (Ambien) 5 mg HSPRN PRN ORAL Insomnia 09/22/20 14:45 09/29/20 14:44 09/28/20 21:19 Assessment/Plan Assessment/Plan ASSESSMENT: Chronic respiratory failure COPD exacerbation and facial cellulitis. diabetes, hypertension, chronic hypoxemia chronic debility, pulmonary congestion, COVID+ PLAN: DME for new o2 concentrator and nebulizer dc planning on hold sputum culture monitor imaging intensify antibiotics per ID respiratory care as is home meds supportive care oxygen therapy and monitor prognosis guarded impression, plan, and exam edited and reviewed in detail care discussed with Froilan Clarke MD Sep 29, 2020 12:35
[2020-09-29] MEDS ORDERED: Lidocaine 1% Plain 30 ml INJ PRN (13:15)
[2020-09-29] MEDS ORDERED: Heparin1,000 units/500ml Premix(Conc:2 units/ml) INJ PRN (13:15)
[2020-09-29] MEDS ORDERED: Loading Dose:Remdesivir 200mg/NS 210ml IV SCH ×2 (14:00)
--- NOTE | 2020-09-29 14:10 | General Progress Note ---
Subjective ROS Limited/Unobtainable: No Constitutional: Reports: malaise, weakness HEENT: Reports: no symptoms Cardiovascular: Reports: no symptoms Respiratory: Reports: cough, shortness of breath Gastrointestinal/Abdominal: Reports: no symptoms Genitourinary: Reports: no symptoms Neurologic/Psychiatric: Reports: no symptoms Endocrine: Reports: no symptoms Hematologic/Lymphatic: Reports: no symptoms Allergies: Coded Allergies: AMOXICILLIN (Verified Allergy, Mild, RASH HIVES, 09/29/13) ERYTHROMYCIN BASE (Unverified Allergy, Unknown, 10/13/17) IODINE (Verified Allergy, Unknown, 09/29/13) PENICILLINS (Verified Allergy, Unknown, RASH HIVES, 09/29/13) All Systems: reviewed and negative except above Subjective no events. covid positive. stable sob. on o2 chronically. ID, cards, pulm noted. Objective Last 24 Hour Vital Signs Date Time Temp Pulse Resp B/P (MAP) Pulse Ox O2 Delivery O2 Flow Rate FiO2 09/29/20 12:32 91 26 96 35 09/29/20 12:00 98.9 97 19 131/76 (94) 97 09/29/20 11:16 Nasal Cannula 2.0 09/29/20 09:45 102 142/72 09/29/20 08:00 99.9 102 20 142/72 (95) 94 09/29/20 07:44 96 Nasal Cannula 4.0 36 09/29/20 06:07 98.9 09/29/20 06:06 93 26 113/64 98 09/29/20 05:50 93 26 98 35 09/29/20 05:36 66 18 113/64 95 09/29/20 04:00 98.9 104 20 145/63 (90) 95 09/29/20 00:00 97.7 66 18 113/64 (80) 95 09/28/20 23:17 90 31 121/57 99 09/28/20 22:47 90 31 121/57 99 09/28/20 22:00 90 31 99 35 09/28/20 21:00 Nasal Cannula 2.0 09/28/20 20:09 100 Nasal Cannula 4.0 36 09/28/20 20:00 98.9 100 18 131/74 (93) 96 09/28/20 17:07 106 20 121/57 96 09/28/20 16:37 106 20 121/57 96 09/28/20 16:00 98.0 100 20 111/73 (86) 96 Intake and Output 09/28/20 09/29/20 19:00 07:00 Intake Total 1200 ml 110 ml Output Total 600 ml Balance 1200 ml -490 ml IV Total 110 ml Other 1200 ml Output Urine Total 600 ml # Voids 2 Laboratory Tests 09/28/20 16:37: POC Whole Blood Glucose 355H 09/28/20 20:07: POC Whole Blood Glucose 135H 09/28/20 21:25: Troponin I 0.000 09/29/20 05:44: POC Whole Blood Glucose [Pending] 09/29/20 12:51: POC Whole Blood Glucose 288H Height (Feet): 5 Height (Inches): 1.00 Weight (Pounds): 210 Objective General Appearance: WD/WN, alert, mild distress EENT: PERRL/EOMI, normal ENT inspection Neck: non-tender, normal alignment Cardiovascular: normal peripheral pulses, normal rate, regular rhythm Respiratory/Chest: chest wall non-tender, lungs clear, no respiratory distress, no accessory muscle use, +expiratory wheezing Abdomen: normal bowel sounds, non tender, soft, no organomegaly Edema: no edema noted Arm (L), no edema noted Arm (R) 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 II-XII grossly normal, no motor/sensory deficits, alert, oriented x 3, responsive, normal mood/affect Assessment/Plan Problem List: (1) Facial cellulitis ICD Codes: L03.211 - Cellulitis of face SNOMED: 846855766 (2) COPD exacerbation ICD Codes: J44.1 - COPD exacerbation SNOMED: 128291504 (3) Toxic metabolic encephalopathy ICD Codes: G92 - Toxic encephalopathy SNOMED: 800280601 (4) Hypertension, malignant ICD Codes: I10 - Hypertension, malignant SNOMED: 07104978 (5) Diabetes mellitus ICD Codes: E11.9 - Diabetes mellitus SNOMED: 49893041 Status: stable, progressing Assessment/Plan: resp rx guaifenesin for cough o2 as needed psych rx ID eval noted- on remdesivir meropenem per ID decadron added monitor bs cont bp rx dvt/stress ulcer prophylaxis Floyd Downey MD Sep 29, 2020 14:10
[2020-09-29 16:00] VITALS: BP 129/67
--- NOTE | 2020-09-29 18:40 | Brief Operative Note ---
Immediate Post Operative Note Operative Note Pre-op Diagnosis: needs access Procedure: PICC Post-op Diagnosis: same as pre-op Surgeon: Daron Chino Anesthesia: local Specimen: none Complications: none Fluids: none Implant(s) used?: No Donato Chino MD Sep 29, 2020 18:40
--- NOTE | 2020-09-29 18:49 | Diagnostic Imaging Report ---
Indications: Needs long-term IV access Technique: Procedure performed at bedside. Procedural timeout performed. Ultrasound confirms patent compressible left basilic vein. Total sterile technique, including sterile probe cover and sterile gel, sterile gloves, hand hygiene, hat, mask,, sterile gown, large sterile drape, and preparation with 2% chlorhexidine utilized. Local anesthesia with 1% lidocaine. Under real-time ultrasound guidance, puncture basilic vein using 21-gauge needle, passage 0.018 guidewire, exchange for 4 Amharic peel-away sheath. 4 Amharic Bard dual-lumen power PICC cut to 45 cm. It was inserted through the peel-away sheath. Peel-away sheath and guidewire removed. Catheter fixed to the skin. Both catheter ports aspirated and flushed. Patient tolerated procedure well, without immediate complication. Followup chest x-ray obtained, documents catheter tip position at the cavoatrial junction Impression: Successful bedside placement of left arm PICC under sonographic guidance, as described above.
[2020-09-29 20:00] VITALS: BP 146/72
[2020-09-29] MEDS: Flonase Nasal Inhaler 16gm NASAL SCH (22:27)
[2020-09-29] MEDS: Cyclobenzaprine 10mg Tab ORAL PRN (22:52)
--- NOTE | 2020-09-29 23:09 | Psychiatric Progress Note ---
Psychiatry Progress Note Psychiatry Progress Note Subjective cont to have multiple complaints splitting staff Medications Current Medications Medications (Trade) Dose Ordered Sig/Sera Route PRN Reason Start Time Stop Time Status Last Admin Dose Admin Acetaminophen (Tylenol) 650 mg Q4H PRN ORAL Mild Pain (Pain Scale 1-3) 09/18/20 23:45 10/18/20 23:44 09/29/20 22:25 Albuterol/ Ipratropium (Albuterol/ Ipratropium) 3 ml Q2H PRN INH Shortness of Breath 09/27/20 22:00 10/27/20 21:59 Amlodipine Besylate (Norvasc) 5 mg DAILY ORAL 09/19/20 09:00 10/19/20 08:59 09/29/20 09:45 Anastrozole (Arimidex) 1 mg DAILY ORAL 09/19/20 09:00 10/19/20 08:59 09/29/20 09:44 Ascorbic Acid (Vitamin C) 500 mg DAILY ORAL 09/21/20 09:00 10/21/20 08:59 09/29/20 09:43 Cetylpyridinium Chloride (Cepacol) 1 lozg EVERY 2 HOURS PRN LAURA For Cough 09/25/20 18:15 12/24/20 18:14 09/28/20 21:19 Clonidine HCl (Catapres Tab) 0.1 mg Q4H PRN ORAL SBP > 160 09/19/20 17:15 12/18/20 17:14 09/24/20 03:09 Cyclobenzaprine HCl (Flexeril) 10 mg TIDPRN PRN ORAL Muscle Spasm 09/28/20 18:13 10/05/20 18:12 09/29/20 22:52 Dexamethasone (Decadron) 6 mg DAILY ORAL 09/28/20 09:00 10/07/20 08:59 09/29/20 09:44 Dextrose (Dextrose 50%) 25 ml Q30M PRN IV Hypoglycemia 09/18/20 19:00 12/17/20 18:59 Dextrose (Dextrose 50%) 50 ml Q30M PRN IV Hypoglycemia 09/18/20 19:00 12/17/20 18:59 Fluticasone Propionate (Flonase) 1 spray QHS NASAL 09/18/20 21:00 10/18/20 20:59 09/29/20 22:27 Furosemide (Lasix) 20 mg DAILY ORAL 09/27/20 09:00 10/27/20 08:59 09/29/20 09:43 Guaifenesin (Mucinex ER) 600 mg TWICE A DAY ORAL 09/25/20 09:00 12/24/20 08:59 09/29/20 18:36 Guaifenesin/ Codeine Phosphate (Robitussin with codeine) 5 ml Q6H PRN ORAL For Cough 09/27/20 18:30 10/27/20 18:29 09/28/20 21:19 Heparin Sodium (Porcine) (Heparin 5000 units/ml) 5,000 units EVERY 12 HOURS SUBQ 09/18/20 21:00 11/02/20 20:59 09/29/20 22:24 Heparin Sodium/ Sodium Chloride (Heparin 1000 units/500ml Premix) 1,000 unit ONCE PRN INJ radiology use 09/29/20 13:15 10/02/20 13:14 Hydroxyzine HCl (Atarax) 50 mg Q4H PRN ORAL Itching 09/19/20 06:15 10/19/20 06:14 09/29/20 05:36 Insulin Aspart (NovoLOG) BEFORE MEALS AND HS SUBQ 09/18/20 21:00 12/17/20 20:59 09/29/20 17:49 Lactobacillus Acidophilus (Culturelle) 1 tab TWICE A DAY ORAL 09/25/20 18:00 12/24/20 17:59 09/29/20 18:36 Lidocaine HCl (Xylocaine 1% 30ml) 30 ml ONCE PRN INJ radiology use 09/29/20 13:15 10/02/20 13:14 Lorazepam (Ativan) 1 mg Q6H PRN ORAL For Anxiety 09/28/20 14:45 10/05/20 14:44 09/29/20 22:23 Meropenem 500 mg/ Sodium Chloride 55 ml @ 110 mls/hr EVERY 8 HOURS IVPB 09/25/20 14:00 09/30/20 13:59 09/29/20 22:22 Ondansetron HCl (Zofran) 4 mg Q6H PRN IVP Nausea & Vomiting 09/18/20 19:00 10/18/20 18:59 09/29/20 22:52 Pantoprazole (Protonix) 40 mg DAILY ORAL 09/19/20 09:00 10/19/20 08:59 09/29/20 09:43 Potassium Chloride (K-Dur) 20 meq DAILY ORAL 09/20/20 09:00 12/19/20 08:59 09/29/20 09:43 Remdesivir 100 mg/ Sodium Chloride 250 ml @ 250 mls/hr Q24H IV 09/30/20 14:00 10/03/20 14:59 Sertraline HCl (Zoloft) 100 mg DAILY ORAL 09/19/20 09:00 10/19/20 08:59 09/29/20 09:43 Vitamin B Complex (Vitamin B Complex) 1 tab DAILY ORAL 09/21/20 09:00 12/20/20 08:59 09/29/20 09:43 Vitamin D (Vitamin D) 1,000 unit DAILY ORAL 09/28/20 09:30 10/28/20 09:29 09/29/20 09:44 Neurological/Psychiatric: Reports: anxiety, depressed, emotional problems Allergies: Coded Allergies: AMOXICILLIN (Verified Allergy, Mild, RASH HIVES, 09/29/13) ERYTHROMYCIN BASE (Unverified Allergy, Unknown, 10/13/17) IODINE (Verified Allergy, Unknown, 09/29/13) PENICILLINS (Verified Allergy, Unknown, RASH HIVES, 09/29/13) Objective Data Height (Feet): 5 Height (Inches): 1.00 Weight (Pounds): 210 General Appearance: WD/WN, alert, mild distress Additional Comments: alert and oriented times self, place, and situation. Mood is anxious. Affect is blunted, congruent with mood. Thought process is concrete. Thought content, there is no suicidal or homicidal ideation. Cognition is intact. Insight and judgment is fair. Assessment/Plan Windom I: ASSESSMENT: Windom I Major depressive disorder. Anxiety disorder. Windom II borderline Windom III COPD. Windom IV Low. Windom V 50 PLAN: 1. Continue Zoloft. 2. ativan and ambien prn 3. The patient would like only melatonin. 4. Provide the patient with reality orientation and supportive therapy. Status: stable, progressing Status Narrative ASSESSMENT: Windom I Major depressive disorder. Anxiety disorder. Windom II borderline Windom III COPD. Windom IV Low. Windom V 50 PLAN: 1. Continue Zoloft. 2. ativan and ambien prn 3. The patient would like only melatonin. 4. Provide the patient with reality orientation and supportive therapy. Assessment/Plan: ASSESSMENT: Windom I Major depressive disorder. Anxiety disorder. Windom II borderline Windom III COPD. Windom IV Low. Windom V 50 PLAN: 1. Continue Zoloft. 2. ativan and ambien prn 3. The patient would like only melatonin. 4. Provide the patient with reality orientation and supportive therapy. Jayy Andino MD Sep 29, 2020 23:09
--- NOTE | 2020-09-29 23:35 | Cardiology Progress Note ---
Subjective DATE OF SERVICE: Sep 29, 2020 More wheezing and congestion with fevers. Facial swelling resolved. Glucose still elevated. No CP. Urine Culture positive for MDR pathogen Covid 19 swab negative on admit; repeat PCR positive. CXR (09/28) Worsening infiltrates bilaterally with left eff'n Objective Last 24 Hour Vital Signs Date Time Temp Pulse Resp B/P (MAP) Pulse Ox O2 Delivery O2 Flow Rate FiO2 09/29/20 22:53 78 19 144/72 96 09/29/20 22:23 80 19 146/72 96 09/29/20 20:00 98.8 80 19 146/72 (96) 96 09/29/20 16:00 97.5 89 19 129/67 (87) 96 09/29/20 15:35 89 22 100 35 09/29/20 12:32 91 26 96 35 09/29/20 12:00 98.9 97 19 131/76 (94) 97 09/29/20 11:16 Nasal Cannula 2.0 09/29/20 09:45 102 142/72 09/29/20 08:00 99.9 102 20 142/72 (95) 94 09/29/20 07:44 96 Nasal Cannula 4.0 36 09/29/20 06:07 98.9 09/29/20 06:06 93 26 113/64 98 09/29/20 05:50 93 26 98 35 09/29/20 05:36 66 18 113/64 95 09/29/20 04:00 98.9 104 20 145/63 (90) 95 09/29/20 00:00 97.7 66 18 113/64 (80) 95 ROS: unchanged from 09/18/20 HEENT: normal ENT inspection RHYTHM: NSR, ST, PACs LUNGS: bilateral rhonchi, coarse breath sounds CARDIAC: normal rate, regular rhythm, normal S1 and S2, gallop/S4 ABDOMEN: normal bowel sounds, non tender, soft, no organomegaly, other - obese EXTREMITIES: +1 edema Laboratory Tests Test 09/29/20 05:44 09/29/20 12:51 09/29/20 17:32 09/29/20 22:28 POC Whole Blood Glucose Pending 288 MG/DL (74-106) H 420 MG/DL (74-106) H 73 MG/DL (74-106) L Microbiology Date/Time Source Procedure Growth Status 09/27/20 18:15 Nasopharynx Coronavirus COVID-19 PCR ([facility]) - Final Complete 09/27/20 12:00 Sputum Gram Stain - Final Complete 09/27/20 12:00 Sputum Sputum Culture - Final NORMAL UPPER RESPIRATORY TIO PRESENT Complete Assessment/Plan Assessment/Plan COVID19 pneumonia COPD exacerbation with hypoxia Acute bronchitis worsening. Ac/chr diastolic CHF with decreasing BNP now - clinically compensated. Hx breast CA Paroxysmal atrial ectopy Hypertensive heart disease Sinus tachycardia improved UTI - K.pn (multi-drug resistant) IRDM uncontrolled on steroids Continue IV steroids Anti-viral rx per ID O2 suppl and bronchodilator rx Anti-coagulation IV Abx per ID Diuresis based on clinical parameters; trend BNP. Titrate antiHTN regimen as needed. PT/OT Insulin coverage Werner Martinez MD Sep 29, 2020 23:35
[2020-09-30] VITALS: BP 151/97
[2020-09-30] MEDS: Albuterol/Ipratropium 3ml neb INH PRN ×4 (01:56→16:44)
[2020-09-30 04:00] VITALS: BP 148/68
[2020-09-30] MEDS: guaiFENesin w/Codeine 5ml Liq ud ORAL PRN (06:10)
[2020-09-30] MEDS: Meropenem 500 MG in NS 55 ML IVPB SCH ×3 (06:10→22:10)
[2020-09-30] MEDS: HydrOXYzine 50mg tab ORAL PRN ×2 (06:10→22:44)
[2020-09-30] MEDS: LORazepam 1mg tab ORAL PRN ×2 (06:11→18:29)
[2020-09-30] MEDS: NovoLOG Insulin Flexpen SUBQ SCH ×4 (06:30→22:45)
[2020-09-30 07:30] LABS: BASOPHILS % (AUTO) 0.4 % (0.0-2.0); EOSINOPHILS % (AUTO) 0.1 % (0.0-3.0); HEMATOCRIT 29.1 % (37.0-47.0); HEMOGLOBIN 9.5 G/DL (12.0-16.0); LYMPHOCYTES % (AUTO) 29.5 % (20.0-45.0); MEAN CORPUSCULAR VOLUME 88 FL (80-99); MONOCYTES % (AUTO) 7.4 % (1.0-10.0); NEUTROPHILS % (AUTO) 62.5 % (45.0-75.0); PLATELET COUNT 214 K/UL (150-450); RED BLOOD COUNT 3.32 M/UL (4.20-5.40); RED CELL DISTRIBUTION WIDTH 12.7 % (11.6-14.8); WHITE BLOOD COUNT 8.1 K/UL (4.8-10.8)
[2020-09-30 07:47] LABS: ALANINE AMINOTRANSFERASE 38 U/L (12-78); ALBUMIN 2.4 G/DL (3.4-5.0); ALBUMIN/GLOBULIN RATIO 0.6 (1.0-2.7); ALKALINE PHOSPHATASE 57 U/L (46-116); ANION GAP 3 mmol/L (5-15); ASPARTATE AMINO TRANSFERASE 33 U/L (15-37); BILIRUBIN,DIRECT < 0.1 MG/DL (0.0-0.3); BILIRUBIN,TOTAL 0.1 MG/DL (0.2-1.0); BLOOD UREA NITROGEN 18 mg/dL (7-18); CALCIUM 8.2 MG/DL (8.5-10.1); CARBON DIOXIDE 37 MMOL/L (21-32); CHLORIDE 100 MMOL/L (98-107); CREATININE 0.8 MG/DL (0.55-1.30); POTASSIUM 3.5 MMOL/L (3.5-5.1); SODIUM 139 MMOL/L (136-145)
[2020-09-30 08:00] VITALS: BP 120/70
--- NOTE | 2020-09-30 09:04 | General Progress Note ---
Subjective ROS Limited/Unobtainable: No Constitutional: Reports: malaise, weakness HEENT: Reports: no symptoms Cardiovascular: Reports: no symptoms Respiratory: Reports: cough, shortness of breath Gastrointestinal/Abdominal: Reports: no symptoms Genitourinary: Reports: no symptoms Neurologic/Psychiatric: Reports: no symptoms Endocrine: Reports: no symptoms Hematologic/Lymphatic: Reports: no symptoms Allergies: Coded Allergies: AMOXICILLIN (Verified Allergy, Mild, RASH HIVES, 09/29/13) ERYTHROMYCIN BASE (Unverified Allergy, Unknown, 10/13/17) IODINE (Verified Allergy, Unknown, 09/29/13) PENICILLINS (Verified Allergy, Unknown, RASH HIVES, 09/29/13) All Systems: reviewed and negative except above Subjective no events. covid positive. stable sob. on o2 chronically. ID, cards, pulm noted. resting. no new complaints. on remdesivir and steroids Objective Last 24 Hour Vital Signs Date Time Temp Pulse Resp B/P (MAP) Pulse Ox O2 Delivery O2 Flow Rate FiO2 09/30/20 08:00 100.1 93 18 120/70 (87) 96 09/30/20 06:41 96 20 142/66 100 09/30/20 06:11 99 20 148/68 100 09/30/20 05:12 99 20 100 Nasal Cannula 4.0 36 93 20 97 09/30/20 04:00 98.4 98 20 148/68 (94) 95 09/30/20 02:23 103 22 97 35 09/30/20 01:57 107 20 99 Nasal Cannula 4.0 36 101 20 96 09/30/20 00:00 98.3 100 20 151/97 (115) 94 09/29/20 22:53 78 19 144/72 96 09/29/20 22:23 80 19 146/72 96 09/29/20 21:00 Nasal Cannula 2.0 09/29/20 20:06 96 Nasal Cannula 4.0 36 09/29/20 20:00 98.8 80 19 146/72 (96) 96 09/29/20 16:00 97.5 89 19 129/67 (87) 96 09/29/20 15:35 89 22 100 35 09/29/20 12:32 91 26 96 35 09/29/20 12:00 98.9 97 19 131/76 (94) 97 09/29/20 11:16 Nasal Cannula 2.0 09/29/20 09:45 102 142/72 Intake and Output 09/29/20 09/30/20 19:00 07:00 Intake Total 1250 ml 830 ml Balance 1250 ml 830 ml IV Total 110 ml Other 1250 ml 720 ml # Voids 1 2 # Bowel Movements 1 Laboratory Tests 09/29/20 12:51: POC Whole Blood Glucose 288H 09/29/20 17:32: POC Whole Blood Glucose 420H 09/29/20 22:28: POC Whole Blood Glucose 73L 09/30/20 06:02: POC Whole Blood Glucose 162H 09/30/20 06:33: White Blood Count 8.1, Red Blood Count 3.32L, Hemoglobin 9.5L, Hematocrit 29.1L, Mean Corpuscular Volume 88, Mean Corpuscular Hemoglobin 28.6, Mean Corpuscular Hemoglobin Concent 32.7, Red Cell Distribution Width 12.7, Platelet Count 214, Mean Platelet Volume 8.2, Neutrophils (%) (Auto) 62.5, Lymphocytes (%) (Auto) 29.5, Monocytes (%) (Auto) 7.4, Eosinophils (%) (Auto) 0.1, Basophils (%) (Auto) 0.4, Sodium Level 139, Potassium Level 3.5, Chloride Level 100, Carbon Dioxide Level 37H, Anion Gap 3L, Blood Urea Nitrogen 18, Creatinine 0.8, Estimat Glomerular Filtration Rate > 60, Glucose Level 155H, Calcium Level 8.2L, Total Bilirubin 0.1L, Direct Bilirubin < 0.1, Aspartate Amino Transf (AST/SGOT) 33, Alanine Aminotransferase (ALT/SGPT) 38, Alkaline Phosphatase 57, Total Protein 6.4, Albumin 2.4L, Globulin 4.0, Albumin/Globulin Ratio 0.6L Height (Feet): 5 Height (Inches): 1.00 Weight (Pounds): 210 Objective General Appearance: WD/WN, alert, mild distress EENT: PERRL/EOMI, normal ENT inspection Neck: non-tender, normal alignment Cardiovascular: normal peripheral pulses, normal rate, regular rhythm Respiratory/Chest: chest wall non-tender, lungs clear, no respiratory distress, no accessory muscle use, +expiratory wheezing Abdomen: normal bowel sounds, non tender, soft, no organomegaly Edema: no edema noted Arm (L), no edema noted Arm (R) 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, no motor/sensory deficits, alert, oriented x 3, responsive, normal mood/affect Assessment/Plan Problem List: (1) Facial cellulitis ICD Codes: L03.211 - Cellulitis of face SNOMED: 584256611 (2) COPD exacerbation ICD Codes: J44.1 - COPD exacerbation SNOMED: 679675156 (3) Toxic metabolic encephalopathy ICD Codes: G92 - Toxic encephalopathy SNOMED: 383187649 (4) Hypertension, malignant ICD Codes: I10 - Hypertension, malignant SNOMED: 55922614 (5) Diabetes mellitus ICD Codes: E11.9 - Diabetes mellitus SNOMED: 82377556 Status: stable, progressing Assessment/Plan: resp rx guaifenesin for cough o2 as needed psych rx ID eval noted- on remdesivir meropenem per ID decadron added monitor bs cont bp rx dvt/stress ulcer prophylaxis Floyd Downey MD Sep 30, 2020 09:04
[2020-09-30] MEDS: Vitamin B Complex Tab ORAL SCH (09:12)
[2020-09-30] MEDS: Lactobacillus-GG tablet ORAL SCH ×2 (09:13→18:08)
[2020-09-30] MEDS: guaiFENesin ER 600mg tab ORAL SCH ×2 (09:13→18:08)
[2020-09-30] MEDS: Ascorbic Acid 500mg tab ORAL SCH ×2 (09:13→21:44)
[2020-09-30] MEDS: Sertraline 100mg tab ORAL SCH (09:13)
[2020-09-30] MEDS: Anastrazole 1mg tab ORAL SCH (09:13)
[2020-09-30] MEDS: Vitamin D 1000 units Tab ORAL SCH ×2 (09:14→21:44)
[2020-09-30] MEDS: Heparin 5000 units/ml inj SUBQ SCH (09:15)
[2020-09-30 12:00] VITALS: BP 127/83
[2020-09-30] MEDS: Maintenance Dose:Remdesivir 100mg/NS 230ml x 4 Doses IV SCH ×2 (14:52)
[2020-09-30 16:00] VITALS: BP 127/89
--- NOTE | 2020-09-30 18:58 | Pulmonology Progress Note ---
Subjective ROS Limited/Unobtainable: No Constitutional: Denies: fever, chills Gastrointestinal/Abdominal: Denies: nausea, vomiting, diarrhea Musculoskeletal: Reports: pain - in chest Allergies: Coded Allergies: AMOXICILLIN (Verified Allergy, Mild, RASH HIVES, 09/29/13) ERYTHROMYCIN BASE (Unverified Allergy, Unknown, 10/13/17) IODINE (Verified Allergy, Unknown, 09/29/13) PENICILLINS (Verified Allergy, Unknown, RASH HIVES, 09/29/13) All Systems: reviewed and negative except above Subjective care noted noted congestion and sputum + COVID and on isolation on diuretics higher oxygen needs dc on hold Objective Last 24 Hour Vital Signs Date Time Temp Pulse Resp B/P (MAP) Pulse Ox O2 Delivery O2 Flow Rate FiO2 09/30/20 18:29 94 20 131/87 95 09/30/20 17:37 96 Venturi Mask 14.0 55 09/30/20 16:54 96 20 95 Venturi Mask 14.0 55 95 20 95 09/30/20 16:00 97.8 86 20 127/89 (102) 94 09/30/20 12:45 103 20 100 Nasal Cannula 4.0 36 95 20 92 09/30/20 12:00 99.2 89 21 127/83 (98) 94 09/30/20 09:13 93 120/70 09/30/20 09:00 Nasal Cannula 2.0 09/30/20 08:00 100.1 93 18 120/70 (87) 96 09/30/20 07:44 91 Nasal Cannula 4.0 36 09/30/20 06:41 96 20 142/66 100 09/30/20 06:11 99 20 148/68 100 09/30/20 05:12 99 20 100 Nasal Cannula 4.0 36 93 20 97 09/30/20 04:00 98.4 98 20 148/68 (94) 95 09/30/20 02:23 103 22 97 35 09/30/20 01:57 107 20 99 Nasal Cannula 4.0 36 101 20 96 09/30/20 00:00 98.3 100 20 151/97 (115) 94 09/29/20 22:53 78 19 144/72 96 09/29/20 22:23 80 19 146/72 96 09/29/20 21:00 Nasal Cannula 2.0 09/29/20 20:06 96 Nasal Cannula 4.0 36 09/29/20 20:00 98.8 80 19 146/72 (96) 96 Intake and Output 09/29/20 09/30/20 19:00 07:00 Intake Total 1250 ml 830 ml Balance 1250 ml 830 ml IV Total 110 ml Other 1250 ml 720 ml # Voids 1 2 # Bowel Movements 1 Objective deferred due to COVID no distress alert nonfocal Laboratory Tests 09/29/20 22:28: POC Whole Blood Glucose 73L 09/30/20 06:02: POC Whole Blood Glucose 162H 09/30/20 06:33: White Blood Count 8.1, Red Blood Count 3.32L, Hemoglobin 9.5L, Hematocrit 29.1L, Mean Corpuscular Volume 88, Mean Corpuscular Hemoglobin 28.6, Mean Corpuscular Hemoglobin Concent 32.7, Red Cell Distribution Width 12.7, Platelet Count 214, Mean Platelet Volume 8.2, Neutrophils (%) (Auto) 62.5, Lymphocytes (%) (Auto) 29.5, Monocytes (%) (Auto) 7.4, Eosinophils (%) (Auto) 0.1, Basophils (%) (Auto) 0.4, Sodium Level 139, Potassium Level 3.5, Chloride Level 100, Carbon Dioxide Level 37H, Anion Gap 3L, Blood Urea Nitrogen 18, Creatinine 0.8, Estimat Glomerular Filtration Rate > 60, Glucose Level 155H, Calcium Level 8.2L, Total Bilirubin 0.1L, Direct Bilirubin < 0.1, Aspartate Amino Transf (AST/SGOT) 33, Alanine Aminotransferase (ALT/SGPT) 38, Alkaline Phosphatase 57, Total Protein 6.4, Albumin 2.4L, Globulin 4.0, Albumin/Globulin Ratio 0.6L 09/30/20 11:41: POC Whole Blood Glucose 219H 09/30/20 16:32: POC Whole Blood Glucose 295H Current Medications Medications (Trade) Dose Ordered Sig/Sera Route PRN Reason Start Time Stop Time Status Last Admin Dose Admin Acetaminophen (Tylenol) 650 mg Q4H PRN ORAL Mild Pain (Pain Scale 1-3) 09/18/20 23:45 10/18/20 23:44 09/30/20 18:30 Amlodipine Besylate (Norvasc) 5 mg DAILY ORAL 09/19/20 09:00 10/19/20 08:59 09/30/20 09:13 Anastrozole (Arimidex) 1 mg DAILY ORAL 09/19/20 09:00 10/19/20 08:59 09/30/20 09:13 Ascorbic Acid (Vitamin C) 500 mg DAILY ORAL 09/21/20 09:00 10/21/20 08:59 09/30/20 09:13 Ascorbic Acid (Vitamin C) 500 mg TWICE A DAY ORAL 09/30/20 20:00 10/30/20 19:59 Cetylpyridinium Chloride (Cepacol) 1 lozg EVERY 2 HOURS PRN LAURA For Cough 09/25/20 18:15 12/24/20 18:14 09/28/20 21:19 Chlorhexidine Gluconate (Brandee-Hex 2%) 1 applic DAILY@2000 TOPIC 09/30/20 20:00 12/29/20 19:59 Clonidine HCl (Catapres Tab) 0.1 mg Q4H PRN ORAL SBP > 160 09/19/20 17:15 12/18/20 17:14 09/24/20 03:09 Cyclobenzaprine HCl (Flexeril) 10 mg TIDPRN PRN ORAL Muscle Spasm 09/28/20 18:13 10/05/20 18:12 09/29/20 22:52 Dexamethasone (Decadron) 6 mg DAILY ORAL 09/28/20 09:00 10/07/20 08:59 09/30/20 09:13 Dextrose (Dextrose 50%) 25 ml Q30M PRN IV Hypoglycemia 09/18/20 19:00 12/17/20 18:59 Dextrose (Dextrose 50%) 50 ml Q30M PRN IV Hypoglycemia 09/18/20 19:00 12/17/20 18:59 Enoxaparin Sodium (Lovenox) 40 mg BID SUBQ 09/30/20 20:00 12/29/20 19:59 Fluticasone Propionate (Flonase) 1 spray QHS NASAL 09/18/20 21:00 10/18/20 20:59 09/29/20 22:27 Furosemide (Lasix) 20 mg DAILY ORAL 09/27/20 09:00 10/27/20 08:59 09/30/20 09:13 Furosemide (Lasix) 40 mg ONCE IV 09/30/20 19:30 09/30/20 21:00 Guaifenesin (Mucinex ER) 600 mg TWICE A DAY ORAL 09/25/20 09:00 12/24/20 08:59 09/30/20 18:08 Guaifenesin/ Codeine Phosphate (Robitussin with codeine) 5 ml Q6H PRN ORAL For Cough 09/27/20 18:30 10/27/20 18:29 09/30/20 06:10 Heparin Sodium (Porcine) (Heparin 5000 units/ml) 5,000 units EVERY 12 HOURS SUBQ 09/18/20 21:00 11/02/20 20:59 09/30/20 09:15 Heparin Sodium/ Sodium Chloride (Heparin 1000 units/500ml Premix) 1,000 unit ONCE PRN INJ radiology use 09/29/20 13:15 10/02/20 13:14 Hydroxyzine HCl (Atarax) 50 mg Q4H PRN ORAL Itching 09/19/20 06:15 10/19/20 06:14 09/30/20 06:10 Insulin Aspart (NovoLOG) BEFORE MEALS AND HS SUBQ 09/18/20 21:00 12/17/20 20:59 09/30/20 16:38 Lactobacillus Acidophilus (Culturelle) 1 tab TWICE A DAY ORAL 09/25/20 18:00 12/24/20 17:59 09/30/20 18:08 Levalbuterol HCl (Xopenex) 1.25 mg TIDRT PRN HHN Shortness of Breath 09/30/20 17:45 10/05/20 17:44 Lidocaine HCl (Xylocaine 1% 30ml) 30 ml ONCE PRN INJ radiology use 09/29/20 13:15 10/02/20 13:14 Lorazepam (Ativan) 1 mg Q6H PRN ORAL For Anxiety 09/28/20 14:45 10/05/20 14:44 09/30/20 18:29 Meropenem 500 mg/ Sodium Chloride 55 ml @ 110 mls/hr EVERY 8 HOURS IVPB 09/30/20 16:00 10/01/20 23:59 09/30/20 16:14 Ondansetron HCl (Zofran) 4 mg Q6H PRN IVP Nausea & Vomiting 09/18/20 19:00 10/18/20 18:59 09/30/20 12:09 Pantoprazole (Protonix) 40 mg DAILY ORAL 09/19/20 09:00 10/19/20 08:59 09/30/20 09:13 Potassium Chloride (K-Dur) 20 meq DAILY ORAL 09/20/20 09:00 12/19/20 08:59 09/30/20 09:13 Remdesivir 100 mg/ Sodium Chloride 250 ml @ 250 mls/hr Q24H IV 09/30/20 14:00 10/03/20 14:59 09/30/20 14:52 Sertraline HCl (Zoloft) 100 mg DAILY ORAL 09/19/20 09:00 10/19/20 08:59 09/30/20 09:13 Vitamin B Complex (Vitamin B Complex) 1 tab DAILY ORAL 09/21/20 09:00 12/20/20 08:59 09/30/20 09:12 Vitamin D (Vitamin D) 1,000 unit DAILY ORAL 09/28/20 09:30 10/28/20 09:29 09/30/20 09:14 Vitamin D (Vitamin D) 1,000 unit DAILY ORAL 09/30/20 20:00 10/30/20 19:59 Zinc Sulfate (Zinc Sulfate) 220 mg DAILY ORAL 09/30/20 20:00 12/29/20 19:59 Assessment/Plan Assessment/Plan ASSESSMENT: Chronic respiratory failure COPD exacerbation and facial cellulitis. diabetes, hypertension, chronic hypoxemia chronic debility, pulmonary congestion, COVID+ PLAN: remdesivir and decadron ertapenem dc planning on hold sputum culture monitor imaging intensify antibiotics per ID respiratory care as is home meds supportive care oxygen therapy and monitor prognosis guarded impression, plan, and exam edited and reviewed in detail care discussed with Froilan Clarke MD Sep 30, 2020 18:58
--- NOTE | 2020-09-30 19:45 | Cardiology Progress Note ---
Subjective DATE OF SERVICE: Sep 30, 2020 Some wheezing and congestion with fevers. Saturating adequatedly on 4L O2 by N/C Facial swelling resolved. Glucose still elevated. No CP. Urine Culture positive for MDR pathogen Covid 19 swab negative on admit; repeat PCR positive. CXR (09/28) Worsening infiltrates bilaterally with left eff'n Objective Last 24 Hour Vital Signs Date Time Temp Pulse Resp B/P (MAP) Pulse Ox O2 Delivery O2 Flow Rate FiO2 09/30/20 18:59 92 19 125/84 95 09/30/20 18:29 94 20 131/87 95 09/30/20 17:37 96 Venturi Mask 14.0 55 09/30/20 16:54 96 20 95 Venturi Mask 14.0 55 95 20 95 09/30/20 16:00 97.8 86 20 127/89 (102) 94 09/30/20 12:45 103 20 100 Nasal Cannula 4.0 36 95 20 92 09/30/20 12:00 99.2 89 21 127/83 (98) 94 09/30/20 09:13 93 120/70 09/30/20 09:00 Nasal Cannula 2.0 09/30/20 08:00 100.1 93 18 120/70 (87) 96 09/30/20 07:44 91 Nasal Cannula 4.0 36 09/30/20 06:41 96 20 142/66 100 09/30/20 06:11 99 20 148/68 100 09/30/20 05:12 99 20 100 Nasal Cannula 4.0 36 93 20 97 09/30/20 04:00 98.4 98 20 148/68 (94) 95 09/30/20 02:23 103 22 97 35 09/30/20 01:57 107 20 99 Nasal Cannula 4.0 36 101 20 96 09/30/20 00:00 98.3 100 20 151/97 (115) 94 09/29/20 22:53 78 19 144/72 96 09/29/20 22:23 80 19 146/72 96 09/29/20 21:00 Nasal Cannula 2.0 09/29/20 20:06 96 Nasal Cannula 4.0 36 09/29/20 20:00 98.8 80 19 146/72 (96) 96 ROS: unchanged from 09/18/20 HEENT: normal ENT inspection RHYTHM: NSR, ST, PACs LUNGS: bilateral rhonchi, coarse breath sounds CARDIAC: normal rate, regular rhythm, normal S1 and S2, gallop/S4 ABDOMEN: normal bowel sounds, non tender, soft, no organomegaly, other - obese EXTREMITIES: +1 edema Laboratory Tests Test 09/29/20 22:28 09/30/20 06:02 09/30/20 06:33 09/30/20 11:41 POC Whole Blood Glucose 73 MG/DL (74-106) L 162 MG/DL (74-106) H 219 MG/DL (74-106) H White Blood Count 8.1 K/UL (4.8-10.8) Red Blood Count 3.32 M/UL (4.20-5.40) L Hemoglobin 9.5 G/DL (12.0-16.0) L Hematocrit 29.1 % (37.0-47.0) L Mean Corpuscular Volume 88 FL (80-99) Mean Corpuscular Hemoglobin 28.6 PG (27.0-31.0) Mean Corpuscular Hemoglobin Concent 32.7 G/DL (32.0-36.0) Red Cell Distribution Width 12.7 % (11.6-14.8) Platelet Count 214 K/UL (150-450) Mean Platelet Volume 8.2 FL (6.5-10.1) Neutrophils (%) (Auto) 62.5 % (45.0-75.0) Lymphocytes (%) (Auto) 29.5 % (20.0-45.0) Monocytes (%) (Auto) 7.4 % (1.0-10.0) Eosinophils (%) (Auto) 0.1 % (0.0-3.0) Basophils (%) (Auto) 0.4 % (0.0-2.0) Sodium Level 139 MMOL/L (136-145) Potassium Level 3.5 MMOL/L (3.5-5.1) Chloride Level 100 MMOL/L (98-107) Carbon Dioxide Level 37 MMOL/L (21-32) H Anion Gap 3 mmol/L (5-15) L Blood Urea Nitrogen 18 mg/dL (7-18) Creatinine 0.8 MG/DL (0.55-1.30) Estimat Glomerular Filtration Rate > 60 mL/min (>60) Glucose Level 155 MG/DL (74-106) H Calcium Level 8.2 MG/DL (8.5-10.1) L Total Bilirubin 0.1 MG/DL (0.2-1.0) L Direct Bilirubin < 0.1 MG/DL (0.0-0.3) Aspartate Amino Transf (AST/SGOT) 33 U/L (15-37) Alanine Aminotransferase (ALT/SGPT) 38 U/L (12-78) Alkaline Phosphatase 57 U/L (46-116) Total Protein 6.4 G/DL (6.4-8.2) Albumin 2.4 G/DL (3.4-5.0) L Globulin 4.0 g/dL Albumin/Globulin Ratio 0.6 (1.0-2.7) L Test 09/30/20 16:32 POC Whole Blood Glucose 295 MG/DL (74-106) H Assessment/Plan Assessment/Plan COVID19 pneumonia COPD exacerbation with hypoxia Acute bronchitis worsening. Ac/chr diastolic CHF with decreasing BNP now - clinically compensated. Hx breast CA Paroxysmal atrial ectopy Hypertensive heart disease Sinus tachycardia improved UTI - K.pn (multi-drug resistant) IRDM uncontrolled on steroids Continue IV steroids Anti-viral rx per ID - remdesivir. O2 suppl and bronchodilator rx Anti-coagulation IV Abx per ID Diuresis based on clinical parameters; trend BNP as needed. Titrate antiHTN regimen as needed. PT/OT Insulin coverage Werner Martinez MD Sep 30, 2020 19:45
[2020-09-30 20:00] VITALS: BP 120/73
[2020-09-30] MEDS: Flonase Nasal Inhaler 16gm NASAL SCH (21:00)
[2020-09-30] MEDS: Zinc Sulfate 220mg ORAL SCH (21:43)
[2020-09-30] MEDS: Dyna-Hex 2% Top Sol 2oz TOPIC SCH (21:49)
[2020-09-30] MEDS: Cyclobenzaprine 10mg Tab ORAL PRN (22:44)
[2020-09-30] MEDS: Enoxaparin 40mg Inj SUBQ SCH (23:00)
[2020-09-30] MEDS: Levalbuterol Inh UD 1.25mg/0.5ml HHN PRN (23:04)
[2020-10-01] VITALS: BP 123/53
[2020-10-01 04:00] VITALS: BP 135/64
[2020-10-01] MEDS: LORazepam 1mg tab ORAL PRN ×3 (05:20→20:10)
[2020-10-01] MEDS: guaiFENesin w/Codeine 5ml Liq ud ORAL PRN ×2 (05:20→20:09)
[2020-10-01] MEDS: HydrOXYzine 50mg tab ORAL PRN ×4 (05:20→23:52)
[2020-10-01] MEDS: Meropenem 500 MG in NS 55 ML IVPB SCH ×3 (05:30→21:30)
[2020-10-01] MEDS: NovoLOG Insulin Flexpen SUBQ SCH ×4 (06:30→20:47)
--- NOTE | 2020-10-01 06:38 | Pulmonology Progress Note ---
Subjective ROS Limited/Unobtainable: No Constitutional: Denies: fever, chills Gastrointestinal/Abdominal: Denies: nausea, vomiting, diarrhea Musculoskeletal: Reports: pain - in chest Allergies: Coded Allergies: AMOXICILLIN (Verified Allergy, Mild, RASH HIVES, 09/29/13) ERYTHROMYCIN BASE (Unverified Allergy, Unknown, 10/13/17) IODINE (Verified Allergy, Unknown, 09/29/13) PENICILLINS (Verified Allergy, Unknown, RASH HIVES, 09/29/13) All Systems: reviewed and negative except above Subjective care noted some congestion + COVID and on isolation on diuretics on 35% dc on hold Objective Last 24 Hour Vital Signs Date Time Temp Pulse Resp B/P (MAP) Pulse Ox O2 Delivery O2 Flow Rate FiO2 10/01/20 02:20 89 24 63 35 10/01/20 00:00 97.3 85 24 123/53 (76) 94 09/30/20 23:04 100 20 100 Venturi Mask 14.0 55 97 20 96 09/30/20 21:00 Nasal Cannula 2.0 09/30/20 20:00 99.9 85 24 120/73 (89) 94 09/30/20 18:59 92 19 125/84 95 09/30/20 18:29 94 20 131/87 95 09/30/20 17:37 96 Venturi Mask 14.0 55 09/30/20 16:54 96 20 95 Venturi Mask 14.0 55 95 20 95 09/30/20 16:00 97.8 86 20 127/89 (102) 94 09/30/20 12:45 103 20 100 Nasal Cannula 4.0 36 95 20 92 09/30/20 12:00 99.2 89 21 127/83 (98) 94 09/30/20 09:13 93 120/70 09/30/20 09:00 Nasal Cannula 2.0 09/30/20 08:00 100.1 93 18 120/70 (87) 96 09/30/20 07:44 91 Nasal Cannula 4.0 36 09/30/20 06:41 96 20 142/66 100 Intake and Output 09/30/20 10/01/20 19:00 07:00 Intake Total 1105 ml Balance 1105 ml IV Total 305 ml Other 800 ml # Bowel Movements 1 Objective deferred due to COVID no distress alert nonfocal Laboratory Tests 09/30/20 11:41: POC Whole Blood Glucose 219H 09/30/20 16:32: POC Whole Blood Glucose 295H 09/30/20 22:58: POC Whole Blood Glucose [Pending] Current Medications Medications (Trade) Dose Ordered Sig/Sera Route PRN Reason Start Time Stop Time Status Last Admin Dose Admin Acetaminophen (Tylenol) 650 mg Q4H PRN ORAL Mild Pain (Pain Scale 1-3) 09/18/20 23:45 10/18/20 23:44 09/30/20 22:44 Amlodipine Besylate (Norvasc) 5 mg DAILY ORAL 09/19/20 09:00 10/19/20 08:59 09/30/20 09:13 Anastrozole (Arimidex) 1 mg DAILY ORAL 09/19/20 09:00 10/19/20 08:59 09/30/20 09:13 Ascorbic Acid (Vitamin C) 500 mg DAILY ORAL 09/21/20 09:00 10/21/20 08:59 09/30/20 09:13 Ascorbic Acid (Vitamin C) 500 mg TWICE A DAY ORAL 09/30/20 20:00 10/30/20 19:59 09/30/20 21:44 Cetylpyridinium Chloride (Cepacol) 1 lozg EVERY 2 HOURS PRN LAURA For Cough 09/25/20 18:15 12/24/20 18:14 09/28/20 21:19 Chlorhexidine Gluconate (Brandee-Hex 2%) 1 applic DAILY@1999 TOPIC 09/30/20 20:00 12/29/20 19:59 09/30/20 21:49 Clonidine HCl (Catapres Tab) 0.1 mg Q4H PRN ORAL SBP > 160 09/19/20 17:15 12/18/20 17:14 09/24/20 03:09 Cyclobenzaprine HCl (Flexeril) 10 mg TIDPRN PRN ORAL Muscle Spasm 09/28/20 18:13 10/05/20 18:12 09/30/20 22:44 Dexamethasone (Decadron) 6 mg DAILY ORAL 09/28/20 09:00 10/07/20 08:59 09/30/20 09:13 Dextrose (Dextrose 50%) 25 ml Q30M PRN IV Hypoglycemia 09/18/20 19:00 12/17/20 18:59 Dextrose (Dextrose 50%) 50 ml Q30M PRN IV Hypoglycemia 09/18/20 19:00 12/17/20 18:59 Enoxaparin Sodium (Lovenox) 40 mg BID SUBQ 09/30/20 20:00 12/29/20 19:59 09/30/20 23:00 Fluticasone Propionate (Flonase) 1 spray QHS NASAL 09/18/20 21:00 10/18/20 20:59 09/29/20 22:27 Furosemide (Lasix) 20 mg DAILY ORAL 09/27/20 09:00 10/27/20 08:59 09/30/20 09:13 Guaifenesin (Mucinex ER) 600 mg TWICE A DAY ORAL 09/25/20 09:00 12/24/20 08:59 09/30/20 18:08 Guaifenesin/ Codeine Phosphate (Robitussin with codeine) 5 ml Q6H PRN ORAL For Cough 09/27/20 18:30 10/27/20 18:29 09/30/20 06:10 Heparin Sodium/ Sodium Chloride (Heparin 1000 units/500ml Premix) 1,000 unit ONCE PRN INJ radiology use 09/29/20 13:15 10/02/20 13:14 Hydroxyzine HCl (Atarax) 50 mg Q4H PRN ORAL Itching 09/19/20 06:15 10/19/20 06:14 09/30/20 22:44 Insulin Aspart (NovoLOG) BEFORE MEALS AND HS SUBQ 09/18/20 21:00 12/17/20 20:59 09/30/20 22:45 Lactobacillus Acidophilus (Culturelle) 1 tab TWICE A DAY ORAL 09/25/20 18:00 12/24/20 17:59 09/30/20 18:08 Levalbuterol HCl (Xopenex) 1.25 mg TIDRT PRN HHN Shortness of Breath 09/30/20 17:45 10/05/20 17:44 09/30/20 23:04 Lidocaine HCl (Xylocaine 1% 30ml) 30 ml ONCE PRN INJ radiology use 09/29/20 13:15 10/02/20 13:14 Lorazepam (Ativan) 1 mg Q6H PRN ORAL For Anxiety 09/28/20 14:45 10/05/20 14:44 09/30/20 18:29 Meropenem 500 mg/ Sodium Chloride 55 ml @ 110 mls/hr EVERY 8 HOURS IVPB 09/30/20 16:00 10/01/20 23:59 09/30/20 22:10 Ondansetron HCl (Zofran) 4 mg Q6H PRN IVP Nausea & Vomiting 09/18/20 19:00 10/18/20 18:59 09/30/20 12:09 Pantoprazole (Protonix) 40 mg DAILY ORAL 09/19/20 09:00 10/19/20 08:59 09/30/20 09:13 Potassium Chloride (K-Dur) 20 meq DAILY ORAL 09/20/20 09:00 12/19/20 08:59 09/30/20 09:13 Remdesivir 100 mg/ Sodium Chloride 250 ml @ 250 mls/hr Q24H IV 09/30/20 14:00 10/03/20 14:59 09/30/20 14:52 Sertraline HCl (Zoloft) 100 mg DAILY ORAL 09/19/20 09:00 10/19/20 08:59 09/30/20 09:13 Vitamin B Complex (Vitamin B Complex) 1 tab DAILY ORAL 09/21/20 09:00 12/20/20 08:59 09/30/20 09:12 Vitamin D (Vitamin D) 1,000 unit DAILY ORAL 09/28/20 09:30 10/28/20 09:29 09/30/20 09:14 Vitamin D (Vitamin D) 1,000 unit DAILY ORAL 09/30/20 20:00 10/30/20 19:59 09/30/20 21:44 Zinc Sulfate (Zinc Sulfate) 220 mg DAILY ORAL 09/30/20 20:00 12/29/20 19:59 09/30/20 21:43 Assessment/Plan Assessment/Plan ASSESSMENT: Chronic respiratory failure COPD exacerbation and facial cellulitis. diabetes, hypertension, chronic hypoxemia chronic debility, pulmonary congestion, COVID+ PLAN: remdesivir and decadron ertapenem monitor imaging respiratory care as is home meds supportive care oxygen therapy and monitor prognosis guarded impression, plan, and exam edited and reviewed in detail care discussed with Froilan Clarke MD Oct 01, 2020 06:38
[2020-10-01 07:59] LABS: BASOPHILS % (AUTO) 0.6 % (0.0-2.0); HEMATOCRIT 30.2 % (37.0-47.0); HEMOGLOBIN 9.7 G/DL (12.0-16.0); LYMPHOCYTES % (AUTO) 28.4 % (20.0-45.0); MEAN CORPUSCULAR VOLUME 88 FL (80-99); PLATELET COUNT 216 K/UL (150-450); RED BLOOD COUNT 3.41 M/UL (4.20-5.40); RED CELL DISTRIBUTION WIDTH 12.8 % (11.6-14.8); WHITE BLOOD COUNT 8.5 K/UL (4.8-10.8)
[2020-10-01 08:00] VITALS: BP 120/59
[2020-10-01 08:08] LABS: ALANINE AMINOTRANSFERASE 36 U/L (12-78); ALBUMIN 2.4 G/DL (3.4-5.0); ALBUMIN/GLOBULIN RATIO 0.6 (1.0-2.7); ALKALINE PHOSPHATASE 62 U/L (46-116); ANION GAP 0 mmol/L (5-15); ASPARTATE AMINO TRANSFERASE 28 U/L (15-37); BILIRUBIN,DIRECT 0.2 MG/DL (0.0-0.3); BILIRUBIN,TOTAL 0.1 MG/DL (0.2-1.0); BLOOD UREA NITROGEN 21 mg/dL (7-18); CALCIUM 7.9 MG/DL (8.5-10.1); CARBON DIOXIDE 37 MMOL/L (21-32); CHLORIDE 99 MMOL/L (98-107); CREATININE 0.9 MG/DL (0.55-1.30); POTASSIUM 3.6 MMOL/L (3.5-5.1); SODIUM 140 MMOL/L (136-145)
[2020-10-01] MEDS: Lactobacillus-GG tablet ORAL SCH ×2 (08:29→17:39)
[2020-10-01] MEDS: Enoxaparin 40mg Inj SUBQ SCH ×2 (08:30→17:38)
[2020-10-01] MEDS: Vitamin B Complex Tab ORAL SCH (08:30)
[2020-10-01] MEDS: Zinc Sulfate 220mg ORAL SCH (08:30)
[2020-10-01] MEDS: Vitamin D 1000 units Tab ORAL SCH ×2 (08:31→08:32)
[2020-10-01] MEDS: Ascorbic Acid 500mg tab ORAL SCH ×3 (08:32→17:39)
[2020-10-01] MEDS: Anastrazole 1mg tab ORAL SCH (08:32)
[2020-10-01] MEDS: guaiFENesin ER 600mg tab ORAL SCH ×2 (08:32→17:39)
[2020-10-01] MEDS: Sertraline 100mg tab ORAL SCH (08:32)
[2020-10-01] MEDS: Cyclobenzaprine 10mg Tab ORAL PRN ×2 (08:32→17:39)
[2020-10-01 12:00] VITALS: BP 122/70
--- NOTE | 2020-10-01 13:08 | General Progress Note ---
Subjective ROS Limited/Unobtainable: No Constitutional: Reports: malaise, weakness HEENT: Reports: no symptoms Cardiovascular: Reports: no symptoms Respiratory: Reports: cough, shortness of breath Gastrointestinal/Abdominal: Reports: no symptoms Genitourinary: Reports: no symptoms Neurologic/Psychiatric: Reports: anxiety Endocrine: Reports: no symptoms Hematologic/Lymphatic: Reports: no symptoms Allergies: Coded Allergies: AMOXICILLIN (Verified Allergy, Mild, RASH HIVES, 09/29/13) ERYTHROMYCIN BASE (Unverified Allergy, Unknown, 10/13/17) IODINE (Verified Allergy, Unknown, 09/29/13) PENICILLINS (Verified Allergy, Unknown, RASH HIVES, 09/29/13) All Systems: reviewed and negative except above Subjective no new complaints. currently on nasal cannula. "hard to breath." +chest tightness feels congested. wants more cough rx on steroids and remdesivir BS stable Objective Last 24 Hour Vital Signs Date Time Temp Pulse Resp B/P (MAP) Pulse Ox O2 Delivery O2 Flow Rate FiO2 10/01/20 12:12 89 19 120/59 94 10/01/20 09:00 Nasal Cannula 2.0 10/01/20 08:32 89 120/59 10/01/20 08:00 98.8 89 19 120/59 (79) 94 10/01/20 05:50 88 24 135/64 97 10/01/20 05:20 89 24 123/53 63 10/01/20 04:00 99.9 88 22 135/64 (87) 94 10/01/20 02:20 89 24 63 35 10/01/20 00:00 97.3 85 24 123/53 (76) 94 09/30/20 23:04 100 20 100 Venturi Mask 14.0 55 97 20 96 09/30/20 21:00 Nasal Cannula 2.0 09/30/20 20:00 99.9 85 24 120/73 (89) 94 09/30/20 18:59 92 19 125/84 95 09/30/20 18:29 94 20 131/87 95 09/30/20 17:37 96 Venturi Mask 14.0 55 09/30/20 16:54 96 20 95 Venturi Mask 14.0 55 95 20 95 09/30/20 16:00 97.8 86 20 127/89 (102) 94 Intake and Output 09/30/20 10/01/20 19:00 07:00 Intake Total 1105 ml 700 ml Output Total 1200 ml Balance 1105 ml -500 ml Intake Oral 700 ml IV Total 305 ml Other 800 ml Output Urine Total 1200 ml # Bowel Movements 2 Laboratory Tests 09/30/20 16:32: POC Whole Blood Glucose 295H 09/30/20 22:58: POC Whole Blood Glucose [Pending] 10/01/20 05:25: POC Whole Blood Glucose [Pending] 10/01/20 05:35: White Blood Count 8.5, Red Blood Count 3.41L, Hemoglobin 9.7L, Hematocrit 30.2L, Mean Corpuscular Volume 88, Mean Corpuscular Hemoglobin 28.5, Mean Corpuscular Hemoglobin Concent 32.3, Red Cell Distribution Width 12.8, Platelet Count 216, Mean Platelet Volume 8.8, Neutrophils (%) (Auto) 65.0, Lymphocytes (%) (Auto) 28.4, Monocytes (%) (Auto) 6.0, Eosinophils (%) (Auto) 0.0, Basophils (%) (Auto) 0.6, Sodium Level 140, Potassium Level 3.6, Chloride Level 99, Carbon Dioxide Level 37H, Anion Gap 0L, Blood Urea Nitrogen 21H, Creatinine 0.9, Estimat Glomerular Filtration Rate > 60, Glucose Level 175H, Calcium Level 7.9L, Total Bilirubin 0.1L, Direct Bilirubin 0.2, Aspartate Amino Transf (AST/SGOT) 28, Alanine Aminotransferase (ALT/SGPT) 36, Alkaline Phosphatase 62, Total Protein 6.7, Albumin 2.4L, Globulin 4.3, Albumin/Globulin Ratio 0.6L 10/01/20 11:59: POC Whole Blood Glucose [Pending] Height (Feet): 5 Height (Inches): 1.00 Weight (Pounds): 210 Objective General Appearance: WD/WN, alert, mild distress EENT: PERRL/EOMI, normal ENT inspection Neck: non-tender, normal alignment Cardiovascular: normal peripheral pulses, normal rate, regular rhythm Respiratory/Chest: chest wall non-tender, lungs clear, no respiratory distress, no accessory muscle use, +expiratory wheezing Abdomen: normal bowel sounds, non tender, soft, no organomegaly Edema: no edema noted Arm (L), no edema noted Arm (R) Neurologic: community services officer II-XII grossly normal, no motor/sensory deficits, alert, lucrecia ented x 3, responsive, normal mood/affect Assessment/Plan Problem List: (1) Facial cellulitis ICD Codes: L03.211 - Cellulitis of face SNOMED: 418353758 (2) COPD exacerbation ICD Codes: J44.1 - COPD exacerbation SNOMED: 035605677 (3) Toxic metabolic encephalopathy ICD Codes: G92 - Toxic encephalopathy SNOMED: 352916012 (4) Hypertension, malignant ICD Codes: I10 - Hypertension, malignant SNOMED: 05925024 (5) Diabetes mellitus ICD Codes: E11.9 - Diabetes mellitus SNOMED: 40921394 Status: stable, progressing Assessment/Plan: resp rx guaifenesin for cough increased o2 as needed psych rx ID eval noted- on remdesivir meropenem per ID decadron monitor cxr monitor blood gases monitor bs cont bp rx dvt/stress ulcer prophylaxis Floyd Downey MD Oct 01, 2020 13:08
[2020-10-01] MEDS: Maintenance Dose:Remdesivir 100mg/NS 230ml x 4 Doses IV SCH ×2 (14:00)
[2020-10-01 16:00] VITALS: BP 128/76
--- NOTE | 2020-10-01 16:07 | Infectious Diseases Prog Note ---
Assessment/Plan Assessment/Plan A: 1. Klebsiella urinary tract infection. 2. Facial cellulitis. 3. COPD exacerbation. 4. DM with hyperglycemia 5 HPN 6. Penicillin allergy 7. COVID19 pneumonia PLAN: 1. continue IV meropenem until tonight 2. Continue Remdesivir & Dexamethasone Subjective ROS Limited/Unobtainable: Yes Constitutional: Reports: no symptoms Respiratory: Reports: shortness of breath, dry cough Allergies: Coded Allergies: AMOXICILLIN (Verified Allergy, Mild, RASH HIVES, 09/29/13) ERYTHROMYCIN BASE (Unverified Allergy, Unknown, 10/13/17) IODINE (Verified Allergy, Unknown, 09/29/13) PENICILLINS (Verified Allergy, Unknown, RASH HIVES, 09/29/13) Objective Last 24 Hour Vital Signs Date Time Temp Pulse Resp B/P (MAP) Pulse Ox O2 Delivery O2 Flow Rate FiO2 10/01/20 12:42 89 19 120/59 94 10/01/20 12:12 89 19 120/59 94 10/01/20 12:00 99.2 93 19 122/70 (87) 94 10/01/20 09:00 Nasal Cannula 2.0 10/01/20 08:32 89 120/59 10/01/20 08:00 98.8 89 19 120/59 (79) 94 10/01/20 07:51 94 Nasal Cannula 4.0 36 10/01/20 05:50 88 24 135/64 97 10/01/20 05:20 89 24 123/53 63 10/01/20 04:00 99.9 88 22 135/64 (87) 94 10/01/20 02:20 89 24 63 35 10/01/20 00:00 97.3 85 24 123/53 (76) 94 09/30/20 23:04 100 20 100 Venturi Mask 14.0 55 97 20 96 09/30/20 21:00 Nasal Cannula 2.0 09/30/20 20:00 99.9 85 24 120/73 (89) 94 09/30/20 18:59 92 19 125/84 95 09/30/20 18:29 94 20 131/87 95 09/30/20 17:37 96 Venturi Mask 14.0 55 09/30/20 16:54 96 20 95 Venturi Mask 14.0 55 95 20 95 Height (Feet): 5 Height (Inches): 1.00 Weight (Pounds): 210 General Appearance: other - obese HEENT: mucous membranes moist Respiratory/Chest: other - oxygen by nasal cannula Cardiovascular: normal rate, other - left arm PICC line Abdomen: soft, non tender Neurologic/Psychiatric: alert, responsive Laboratory Tests Test 09/30/20 16:32 09/30/20 22:58 10/01/20 05:25 10/01/20 05:35 POC Whole Blood Glucose 295 MG/DL (74-106) H Pending Pending White Blood Count 8.5 K/UL (4.8-10.8) Red Blood Count 3.41 M/UL (4.20-5.40) L Hemoglobin 9.7 G/DL (12.0-16.0) L Hematocrit 30.2 % (37.0-47.0) L Mean Corpuscular Volume 88 FL (80-99) Mean Corpuscular Hemoglobin 28.5 PG (27.0-31.0) Mean Corpuscular Hemoglobin Concent 32.3 G/DL (32.0-36.0) Red Cell Distribution Width 12.8 % (11.6-14.8) Platelet Count 216 K/UL (150-450) Mean Platelet Volume 8.8 FL (6.5-10.1) Neutrophils (%) (Auto) 65.0 % (45.0-75.0) Lymphocytes (%) (Auto) 28.4 % (20.0-45.0) Monocytes (%) (Auto) 6.0 % (1.0-10.0) Eosinophils (%) (Auto) 0.0 % (0.0-3.0) Basophils (%) (Auto) 0.6 % (0.0-2.0) Sodium Level 140 MMOL/L (136-145) Potassium Level 3.6 MMOL/L (3.5-5.1) Chloride Level 99 MMOL/L (98-107) Carbon Dioxide Level 37 MMOL/L (21-32) H Anion Gap 0 mmol/L (5-15) L Blood Urea Nitrogen 21 mg/dL (7-18) H Creatinine 0.9 MG/DL (0.55-1.30) Estimat Glomerular Filtration Rate > 60 mL/min (>60) Glucose Level 175 MG/DL (74-106) H Calcium Level 7.9 MG/DL (8.5-10.1) L Total Bilirubin 0.1 MG/DL (0.2-1.0) L Direct Bilirubin 0.2 MG/DL (0.0-0.3) Aspartate Amino Transf (AST/SGOT) 28 U/L (15-37) Alanine Aminotransferase (ALT/SGPT) 36 U/L (12-78) Alkaline Phosphatase 62 U/L (46-116) Total Protein 6.7 G/DL (6.4-8.2) Albumin 2.4 G/DL (3.4-5.0) L Globulin 4.3 g/dL Albumin/Globulin Ratio 0.6 (1.0-2.7) L Test 10/01/20 11:59 POC Whole Blood Glucose Pending Current Medications Medications (Trade) Dose Ordered Sig/Sera Route PRN Reason Start Time Stop Time Status Last Admin Dose Admin Acetaminophen (Tylenol) 650 mg Q4H PRN ORAL Mild Pain (Pain Scale 1-3) 09/18/20 23:45 10/18/20 23:44 10/01/20 05:20 Amlodipine Besylate (Norvasc) 5 mg DAILY ORAL 09/19/20 09:00 10/19/20 08:59 10/01/20 08:32 Anastrozole (Arimidex) 1 mg DAILY ORAL 09/19/20 09:00 10/19/20 08:59 10/01/20 08:32 Ascorbic Acid (Vitamin C) 500 mg DAILY ORAL 09/21/20 09:00 10/21/20 08:59 10/01/20 08:32 Ascorbic Acid (Vitamin C) 500 mg TWICE A DAY ORAL 09/30/20 20:00 10/30/20 19:59 10/01/20 08:32 Cetylpyridinium Chloride (Cepacol) 1 lozg EVERY 2 HOURS PRN LAURA For Cough 09/25/20 18:15 12/24/20 18:14 09/28/20 21:19 Chlorhexidine Gluconate (Brandee-Hex 2%) 1 applic DAILY@2000 TOPIC 09/30/20 20:00 12/29/20 19:59 09/30/20 21:49 Clonidine HCl (Catapres Tab) 0.1 mg Q4H PRN ORAL SBP > 160 09/19/20 17:15 12/18/20 17:14 09/24/20 03:09 Cyclobenzaprine HCl (Flexeril) 10 mg TIDPRN PRN ORAL Muscle Spasm 09/28/20 18:13 10/05/20 18:12 10/01/20 08:32 Dexamethasone (Decadron) 6 mg DAILY ORAL 09/28/20 09:00 10/07/20 08:59 10/01/20 08:29 Dextrose (Dextrose 50%) 25 ml Q30M PRN IV Hypoglycemia 09/18/20 19:00 12/17/20 18:59 Dextrose (Dextrose 50%) 50 ml Q30M PRN IV Hypoglycemia 09/18/20 19:00 12/17/20 18:59 Enoxaparin Sodium (Lovenox) 40 mg BID SUBQ 09/30/20 20:00 12/29/20 19:59 10/01/20 08:30 Fluticasone Propionate (Flonase) 1 spray QHS NASAL 09/18/20 21:00 10/18/20 20:59 09/29/20 22:27 Furosemide (Lasix) 20 mg DAILY ORAL 09/27/20 09:00 10/27/20 08:59 10/01/20 08:32 Guaifenesin (Mucinex ER) 600 mg TWICE A DAY ORAL 09/25/20 09:00 12/24/20 08:59 10/01/20 08:32 Guaifenesin/ Codeine Phosphate (Robitussin with codeine) 10 ml Q6H PRN ORAL For Cough 10/01/20 13:15 10/27/20 18:29 Heparin Sodium/ Sodium Chloride (Heparin 1000 units/500ml Premix) 1,000 unit ONCE PRN INJ radiology use 09/29/20 13:15 10/02/20 13:14 Hydroxyzine HCl (Atarax) 50 mg Q4H PRN ORAL Itching 09/19/20 06:15 10/19/20 06:14 10/01/20 12:12 Insulin Aspart (NovoLOG) BEFORE MEALS AND HS SUBQ 09/18/20 21:00 12/17/20 20:59 10/01/20 12:01 Lactobacillus Acidophilus (Culturelle) 1 tab TWICE A DAY ORAL 09/25/20 18:00 12/24/20 17:59 10/01/20 08:29 Levalbuterol HCl (Xopenex) 1.25 mg TIDRT PRN HHN Shortness of Breath 09/30/20 17:45 10/05/20 17:44 09/30/20 23:04 Lidocaine HCl (Xylocaine 1% 30ml) 30 ml ONCE PRN INJ radiology use 09/29/20 13:15 10/02/20 13:14 Lorazepam (Ativan) 1 mg Q6H PRN ORAL For Anxiety 09/28/20 14:45 10/05/20 14:44 10/01/20 12:12 Meropenem 500 mg/ Sodium Chloride 55 ml @ 110 mls/hr EVERY 8 HOURS IVPB 09/30/20 16:00 10/01/20 23:59 10/01/20 14:01 Ondansetron HCl (Zofran) 4 mg Q6H PRN IVP Nausea & Vomiting 09/18/20 19:00 10/18/20 18:59 10/01/20 13:23 Pantoprazole (Protonix) 40 mg DAILY ORAL 09/19/20 09:00 10/19/20 08:59 10/01/20 08:31 Potassium Chloride (K-Dur) 20 meq DAILY ORAL 09/20/20 09:00 12/19/20 08:59 10/01/20 08:29 Remdesivir 100 mg/ Sodium Chloride 250 ml @ 250 mls/hr Q24H IV 09/30/20 14:00 10/03/20 14:59 10/01/20 14:00 Sertraline HCl (Zoloft) 100 mg DAILY ORAL 09/19/20 09:00 10/19/20 08:59 10/01/20 08:32 Vitamin B Complex (Vitamin B Complex) 1 tab DAILY ORAL 09/21/20 09:00 12/20/20 08:59 10/01/20 08:30 Vitamin D (Vitamin D) 1,000 unit DAILY ORAL 09/28/20 09:30 10/28/20 09:29 10/01/20 08:31 Vitamin D (Vitamin D) 1,000 unit DAILY ORAL 09/30/20 20:00 10/30/20 19:59 10/01/20 08:32 Zinc Sulfate (Zinc Sulfate) 220 mg DAILY ORAL 09/30/20 20:00 12/29/20 19:59 10/01/20 08:30 Rene Schultz MD Oct 01, 2020 16:07
[2020-10-01 20:00] VITALS: BP 148/83
[2020-10-01] MEDS: Dyna-Hex 2% Top Sol 2oz TOPIC SCH (20:09)
[2020-10-01] MEDS: Flonase Nasal Inhaler 16gm NASAL SCH (20:46)
--- NOTE | 2020-10-01 23:15 | Cardiology Progress Note ---
Subjective DATE OF SERVICE: Oct 01, 2020 Sotill has congestion and pleuritic CP. Saturating adequatedly on 4L O2 by N/C Facial swelling resolved. Glucose still elevated. No CP. Urine Culture positive for MDR pathogen Covid 19 swab negative on admit; repeat PCR positive. CXR (09/28) Worsening infiltrates bilaterally with left eff'n Objective Last 24 Hour Vital Signs Date Time Temp Pulse Resp B/P (MAP) Pulse Ox O2 Delivery O2 Flow Rate FiO2 10/01/20 20:40 105 20 123/77 97 10/01/20 20:31 94 Venturi Mask 14.0 55 10/01/20 20:10 104 20 125/77 96 10/01/20 20:00 99.3 110 24 148/83 (104) 90 10/01/20 16:00 98.6 107 20 128/76 (93) 96 10/01/20 12:42 89 19 120/59 94 10/01/20 12:12 89 19 120/59 94 10/01/20 12:00 99.2 93 19 122/70 (87) 94 10/01/20 09:00 Nasal Cannula 2.0 10/01/20 08:32 89 120/59 10/01/20 08:00 98.8 89 19 120/59 (79) 94 10/01/20 07:51 94 Nasal Cannula 4.0 36 10/01/20 05:50 88 24 135/64 97 10/01/20 05:20 89 24 123/53 63 10/01/20 04:00 99.9 88 22 135/64 (87) 94 10/01/20 02:20 89 24 63 35 10/01/20 00:00 97.3 85 24 123/53 (76) 94 ROS: unchanged from 09/18/20 HEENT: normal ENT inspection RHYTHM: NSR, ST, PACs LUNGS: bilateral rhonchi, coarse breath sounds CARDIAC: normal rate, regular rhythm, normal S1 and S2, gallop/S4 ABDOMEN: normal bowel sounds, non tender, soft, no organomegaly, other - obese EXTREMITIES: +1 edema Laboratory Tests Test 10/01/20 05:25 10/01/20 05:35 10/01/20 11:59 10/01/20 17:44 POC Whole Blood Glucose Pending Pending Pending White Blood Count 8.5 K/UL (4.8-10.8) Red Blood Count 3.41 M/UL (4.20-5.40) L Hemoglobin 9.7 G/DL (12.0-16.0) L Hematocrit 30.2 % (37.0-47.0) L Mean Corpuscular Volume 88 FL (80-99) Mean Corpuscular Hemoglobin 28.5 PG (27.0-31.0) Mean Corpuscular Hemoglobin Concent 32.3 G/DL (32.0-36.0) Red Cell Distribution Width 12.8 % (11.6-14.8) Platelet Count 216 K/UL (150-450) Mean Platelet Volume 8.8 FL (6.5-10.1) Neutrophils (%) (Auto) 65.0 % (45.0-75.0) Lymphocytes (%) (Auto) 28.4 % (20.0-45.0) Monocytes (%) (Auto) 6.0 % (1.0-10.0) Eosinophils (%) (Auto) 0.0 % (0.0-3.0) Basophils (%) (Auto) 0.6 % (0.0-2.0) Sodium Level 140 MMOL/L (136-145) Potassium Level 3.6 MMOL/L (3.5-5.1) Chloride Level 99 MMOL/L (98-107) Carbon Dioxide Level 37 MMOL/L (21-32) H Anion Gap 0 mmol/L (5-15) L Blood Urea Nitrogen 21 mg/dL (7-18) H Creatinine 0.9 MG/DL (0.55-1.30) Estimat Glomerular Filtration Rate > 60 mL/min (>60) Glucose Level 175 MG/DL (74-106) H Calcium Level 7.9 MG/DL (8.5-10.1) L Total Bilirubin 0.1 MG/DL (0.2-1.0) L Direct Bilirubin 0.2 MG/DL (0.0-0.3) Aspartate Amino Transf (AST/SGOT) 28 U/L (15-37) Alanine Aminotransferase (ALT/SGPT) 36 U/L (12-78) Alkaline Phosphatase 62 U/L (46-116) Total Protein 6.7 G/DL (6.4-8.2) Albumin 2.4 G/DL (3.4-5.0) L Globulin 4.3 g/dL Albumin/Globulin Ratio 0.6 (1.0-2.7) L Test 10/01/20 20:20 POC Whole Blood Glucose Pending Assessment/Plan Assessment/Plan COVID19 pneumonia COPD exacerbation with hypoxia Acute bronchitis worsening. Ac/chr diastolic CHF with decreasing BNP now - clinically compensated. Hx breast CA Paroxysmal atrial ectopy Hypertensive heart disease Sinus tachycardia improved UTI - K.pn (multi-drug resistant) IRDM uncontrolled on steroids Continue IV steroids Anti-viral rx per ID - remdesivir. O2 suppl and bronchodilator rx Anti-coagulation IV Abx per ID Diuresis based on clinical parameters; trend BNP as needed. Titrate antiHTN regimen as needed. PT/OT Insulin coverage Werner Martinez MD Oct 01, 2020 23:15
[2020-10-02] VITALS: BP 116/55
[2020-10-02 04:00] VITALS: BP 128/71
[2020-10-02] MEDS: LORazepam 1mg tab ORAL PRN (05:33)
[2020-10-02] MEDS: HydrOXYzine 50mg tab ORAL PRN (05:33)
[2020-10-02] MEDS: guaiFENesin w/Codeine 5ml Liq ud ORAL PRN ×2 (05:34→23:00)
[2020-10-02] MEDS: NovoLOG Insulin Flexpen SUBQ SCH ×3 (06:32→16:30)
[2020-10-02 07:38] LABS: BASOPHILS % (AUTO) 0.3 % (0.0-2.0); EOSINOPHILS % (AUTO) 0.1 % (0.0-3.0); HEMATOCRIT 29.9 % (37.0-47.0); HEMOGLOBIN 9.3 G/DL (12.0-16.0); LYMPHOCYTES % (AUTO) 27.8 % (20.0-45.0); MEAN CORPUSCULAR VOLUME 90 FL (80-99); MONOCYTES % (AUTO) 6.5 % (1.0-10.0); NEUTROPHILS % (AUTO) 65.4 % (45.0-75.0); PLATELET COUNT 205 K/UL (150-450); RED BLOOD COUNT 3.32 M/UL (4.20-5.40); RED CELL DISTRIBUTION WIDTH 13.1 % (11.6-14.8); WHITE BLOOD COUNT 8.9 K/UL (4.8-10.8)
[2020-10-02 07:40] LABS: ALANINE AMINOTRANSFERASE 30 U/L (12-78); ALBUMIN 2.2 G/DL (3.4-5.0); ALBUMIN/GLOBULIN RATIO 0.6 (1.0-2.7); ALKALINE PHOSPHATASE 65 U/L (46-116); ANION GAP 2 mmol/L (5-15); ASPARTATE AMINO TRANSFERASE 23 U/L (15-37); BILIRUBIN,DIRECT 0.2 MG/DL (0.0-0.3); BILIRUBIN,TOTAL 0.1 MG/DL (0.2-1.0); BLOOD UREA NITROGEN 23 mg/dL (7-18); CALCIUM 8.4 MG/DL (8.5-10.1); CARBON DIOXIDE 37 MMOL/L (21-32); CHLORIDE 100 MMOL/L (98-107); CREATININE 0.9 MG/DL (0.55-1.30); POTASSIUM 3.9 MMOL/L (3.5-5.1); SODIUM 139 MMOL/L (136-145)
[2020-10-02 08:00] VITALS: BP 141/80
--- NOTE | 2020-10-02 08:53 | General Progress Note ---
Subjective ROS Limited/Unobtainable: No Constitutional: Reports: malaise, weakness HEENT: Reports: no symptoms Cardiovascular: Reports: no symptoms Respiratory: Reports: cough, shortness of breath Gastrointestinal/Abdominal: Reports: no symptoms Genitourinary: Reports: no symptoms Neurologic/Psychiatric: Reports: no symptoms Endocrine: Reports: no symptoms Hematologic/Lymphatic: Reports: no symptoms Allergies: Coded Allergies: AMOXICILLIN (Verified Allergy, Mild, RASH HIVES, 09/29/13) ERYTHROMYCIN BASE (Unverified Allergy, Unknown, 10/13/17) IODINE (Verified Allergy, Unknown, 09/29/13) PENICILLINS (Verified Allergy, Unknown, RASH HIVES, 09/29/13) All Systems: reviewed and negative except above Subjective no new complaints. currently on nasal cannula. "hard to breath." +chest tightness feels congested. wants more cough rx on steroids and remdesivir BS stable Objective Last 24 Hour Vital Signs Date Time Temp Pulse Resp B/P (MAP) Pulse Ox O2 Delivery O2 Flow Rate FiO2 10/02/20 06:03 80 22 136/74 94 10/02/20 05:33 77 22 140/72 94 10/02/20 04:00 98.2 77 22 128/71 (90) 91 10/02/20 02:39 90 26 94 35 10/02/20 00:16 89 18 95 10/02/20 00:00 98.6 95 24 116/55 (75) 94 10/01/20 23:37 Venturi Mask 14.0 10/01/20 20:40 105 20 123/77 97 10/01/20 20:31 94 Venturi Mask 14.0 55 10/01/20 20:10 104 20 125/77 96 10/01/20 20:00 99.3 110 24 148/83 (104) 90 10/01/20 16:00 98.6 107 20 128/76 (93) 96 10/01/20 12:42 89 19 120/59 94 10/01/20 12:12 89 19 120/59 94 10/01/20 12:00 99.2 93 19 122/70 (87) 94 10/01/20 09:00 Nasal Cannula 2.0 Intake and Output 10/01/20 10/02/20 19:00 07:00 Intake Total 2200 ml Output Total 400 ml Balance 1800 ml Intake Oral 600 ml Other 1600 ml Output Urine Total 400 ml Laboratory Tests 10/01/20 11:59: POC Whole Blood Glucose [Pending] 10/01/20 17:44: POC Whole Blood Glucose [Pending] 10/01/20 20:20: POC Whole Blood Glucose [Pending] 10/02/20 05:00: White Blood Count 8.9, Red Blood Count 3.32L, Hemoglobin 9.3L, Hematocrit 29.9L, Mean Corpuscular Volume 90, Mean Corpuscular Hemoglobin 28.0, Mean Corpuscular Hemoglobin Concent 31.2L, Red Cell Distribution Width 13.1, Platelet Count 205, Mean Platelet Volume 8.6, Neutrophils (%) (Auto) 65.4, Lymphocytes (%) (Auto) 27.8, Monocytes (%) (Auto) 6.5, Eosinophils (%) (Auto) 0.1, Basophils (%) (Auto) 0.3, D-Dimer 1.03H, Sodium Level 139, Potassium Level 3.9, Chloride Level 100, Carbon Dioxide Level 37H, Anion Gap 2L, Blood Urea Nitrogen 23H, Creatinine 0.9, Estimat Glomerular Filtration Rate > 60, Glucose Level 249H, Calcium Level 8.4L , Total Bilirubin 0.1L, Direct Bilirubin 0.2, Aspartate Amino Transf (AST/SGOT) 23, Alanine Aminotransferase (ALT/SGPT) 30, Alkaline Phosphatase 65, C-Reactive Protein, Quantitative 16.4H, Total Protein 6.2L, Albumin 2.2L, Globulin 4.0, Albumin/Globulin Ratio 0.6L 10/02/20 05:46: POC Whole Blood Glucose 243H Height (Feet): 5 Height (Inches): 1.00 Weight (Pounds): 210 Objective General Appearance: WD/WN, alert, mild distress EENT: PERRL/EOMI, normal ENT inspection Neck: non-tender, normal alignment Cardiovascular: normal peripheral pulses, normal rate, regular rhythm Respiratory/Chest: chest wall non-tender, lungs clear, no respiratory distress, no accessory muscle use, +expiratory wheezing Abdomen: normal bowel sounds, non tender, soft, no organomegaly Edema: no edema noted Arm (L), no edema noted Arm (R) 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: 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 grossly normal, no motor/sensory deficits, alert, orient ed x 3, responsive, normal mood/affect Assessment/Plan Problem List: (1) Facial cellulitis ICD Codes: L03.211 - Cellulitis of face SNOMED: 614557428 (2) COPD exacerbation ICD Codes: J44.1 - COPD exacerbation SNOMED: 017498840 (3) Toxic metabolic encephalopathy ICD Codes: G92 - Toxic encephalopathy SNOMED: 137626975 (4) Hypertension, malignant ICD Codes: I10 - Hypertension, malignant SNOMED: 67257686 (5) Diabetes mellitus ICD Codes: E11.9 - Diabetes mellitus SNOMED: 77433574 Status: stable, progressing Assessment/Plan: resp rx guaifenesin for cough increased add nystatin o2 as needed psych rx ID eval noted- on remdesivir meropenem per ID decadron monitor cxr monitor blood gases monitor bs cont bp rx dvt/stress ulcer prophylaxis Floyd Downey MD Oct 02, 2020 08:53
[2020-10-02] MEDS: Anastrazole 1mg tab ORAL SCH (09:00)
[2020-10-02] MEDS: Ascorbic Acid 500mg tab ORAL SCH ×2 (09:29→17:08)
[2020-10-02] MEDS: guaiFENesin ER 600mg tab ORAL SCH ×2 (09:29→17:08)
[2020-10-02] MEDS: Vitamin B Complex Tab ORAL SCH (09:29)
[2020-10-02] MEDS: Enoxaparin 40mg Inj SUBQ SCH ×2 (09:29→17:22)
[2020-10-02] MEDS: Vitamin D 1000 units Tab ORAL SCH (09:29)
[2020-10-02] MEDS: Zinc Sulfate 220mg ORAL SCH (09:30)
[2020-10-02] MEDS: Nystatin Susp 500,000 units/5ml ORAL SCH ×4 (09:31→22:53)
[2020-10-02] MEDS: Lactobacillus-GG tablet ORAL SCH ×2 (09:31→17:08)
[2020-10-02] MEDS: Sertraline 100mg tab ORAL SCH (09:31)
[2020-10-02] MEDS ORDERED: Wixela 250/50 Inhaler - 60 dose INH SCH (10:00)
[2020-10-02 12:00] VITALS: BP 158/67
--- NOTE | 2020-10-02 12:25 | Infectious Diseases Prog Note ---
Assessment/Plan Assessment/Plan antibiotics : none A 1. Klebsiella urinary tract infection s/p rx 2. Facial cellulitis improving 3. COPD exacerbation. 4. diabetes mellitus 5. hypertension 6. CHF 7. breast cancer 8. COVID 19 pneumonia on 14 liters O2, saturation 96 % P 1. continue remdesivir day 2 2. continue dexamethasone day 5 3. will follow up cultures Subjective ROS Limited/Unobtainable: Yes Allergies: Coded Allergies: AMOXICILLIN (Verified Allergy, Mild, RASH HIVES, 09/29/13) ERYTHROMYCIN BASE (Unverified Allergy, Unknown, 10/13/17) IODINE (Verified Allergy, Unknown, 09/29/13) PENICILLINS (Verified Allergy, Unknown, RASH HIVES, 09/29/13) Objective Last 24 Hour Vital Signs Date Time Temp Pulse Resp B/P (MAP) Pulse Ox O2 Delivery O2 Flow Rate FiO2 10/02/20 09:00 80 141/80 10/02/20 07:30 96 Venturi Mask 14.0 55 10/02/20 06:03 80 22 136/74 94 10/02/20 05:33 77 22 140/72 94 10/02/20 04:00 98.2 77 22 128/71 (90) 91 10/02/20 02:39 90 26 94 35 10/02/20 00:16 89 18 95 10/02/20 00:00 98.6 95 24 116/55 (75) 94 10/01/20 23:37 Venturi Mask 14.0 10/01/20 20:40 105 20 123/77 97 10/01/20 20:31 94 Venturi Mask 14.0 55 10/01/20 20:10 104 20 125/77 96 10/01/20 20:00 99.3 110 24 148/83 (104) 90 10/01/20 16:00 98.6 107 20 128/76 (93) 96 10/01/20 12:42 89 19 120/59 94 Height (Feet): 5 Height (Inches): 1.00 Weight (Pounds): 210 Laboratory Tests Test 10/01/20 17:44 10/01/20 20:20 10/02/20 05:00 10/02/20 05:46 POC Whole Blood Glucose Pending Pending 243 MG/DL (74-106) H White Blood Count 8.9 K/UL (4.8-10.8) Red Blood Count 3.32 M/UL (4.20-5.40) L Hemoglobin 9.3 G/DL (12.0-16.0) L Hematocrit 29.9 % (37.0-47.0) L Mean Corpuscular Volume 90 FL (80-99) Mean Corpuscular Hemoglobin 28.0 PG (27.0-31.0) Mean Corpuscular Hemoglobin Concent 31.2 G/DL (32.0-36.0) L Red Cell Distribution Width 13.1 % (11.6-14.8) Platelet Count 205 K/UL (150-450) Mean Platelet Volume 8.6 FL (6.5-10.1) Neutrophils (%) (Auto) 65.4 % (45.0-75.0) Lymphocytes (%) (Auto) 27.8 % (20.0-45.0) Monocytes (%) (Auto) 6.5 % (1.0-10.0) Eosinophils (%) (Auto) 0.1 % (0.0-3.0) Basophils (%) (Auto) 0.3 % (0.0-2.0) D-Dimer 1.03 mg/L FEU (0.00-0.49) H Sodium Level 139 MMOL/L (136-145) Potassium Level 3.9 MMOL/L (3.5-5.1) Chloride Level 100 MMOL/L (98-107) Carbon Dioxide Level 37 MMOL/L (21-32) H Anion Gap 2 mmol/L (5-15) L Blood Urea Nitrogen 23 mg/dL (7-18) H Creatinine 0.9 MG/DL (0.55-1.30) Estimat Glomerular Filtration Rate > 60 mL/min (>60) Glucose Level 249 MG/DL (74-106) H Calcium Level 8.4 MG/DL (8.5-10.1) L Total Bilirubin 0.1 MG/DL (0.2-1.0) L Direct Bilirubin 0.2 MG/DL (0.0-0.3) Aspartate Amino Transf (AST/SGOT) 23 U/L (15-37) Alanine Aminotransferase (ALT/SGPT) 30 U/L (12-78) Alkaline Phosphatase 65 U/L (46-116) C-Reactive Protein, Quantitative 16.4 mg/dL (0.00-0.90) H Total Protein 6.2 G/DL (6.4-8.2) L Albumin 2.2 G/DL (3.4-5.0) L Globulin 4.0 g/dL Albumin/Globulin Ratio 0.6 (1.0-2.7) L Test 10/02/20 12:04 POC Whole Blood Glucose 181 MG/DL (74-106) H Current Medications Medications (Trade) Dose Ordered Sig/Sera Route PRN Reason Start Time Stop Time Status Last Admin Dose Admin Acetaminophen (Tylenol) 650 mg Q4H PRN ORAL Mild Pain (Pain Scale 1-3) 09/18/20 23:45 10/18/20 23:44 10/02/20 05:34 Amlodipine Besylate (Norvasc) 5 mg DAILY ORAL 09/19/20 09:00 10/19/20 08:59 10/02/20 09:00 Anastrozole (Arimidex) 1 mg DAILY ORAL 09/19/20 09:00 10/19/20 08:59 10/02/20 09:00 Ascorbic Acid (Vitamin C) 500 mg TWICE A DAY ORAL 09/30/20 20:00 10/30/20 19:59 10/02/20 09:29 Budesonide/ Formoterol Fumarate (Symbicort 160/ 4.5) 2 puff BIDRT INH 10/02/20 11:00 12/31/20 10:59 Cetylpyridinium Chloride (Cepacol) 1 lozg EVERY 2 HOURS PRN LAURA For Cough 09/25/20 18:15 12/24/20 18:14 09/28/20 21:19 Chlorhexidine Gluconate (Brandee-Hex 2%) 1 applic DAILY@2000 TOPIC 09/30/20 20:00 12/29/20 19:59 10/01/20 20:09 Clonidine HCl (Catapres Tab) 0.1 mg Q4H PRN ORAL SBP > 160 09/19/20 17:15 12/18/20 17:14 09/24/20 03:09 Cyclobenzaprine HCl (Flexeril) 10 mg TIDPRN PRN ORAL Muscle Spasm 09/28/20 18:13 10/05/20 18:12 10/01/20 17:39 Dexamethasone (Decadron) 6 mg DAILY ORAL 09/28/20 09:00 10/07/20 08:59 10/02/20 09:29 Dextrose (Dextrose 50%) 25 ml Q30M PRN IV Hypoglycemia 09/18/20 19:00 12/17/20 18:59 Dextrose (Dextrose 50%) 50 ml Q30M PRN IV Hypoglycemia 09/18/20 19:00 12/17/20 18:59 Enoxaparin Sodium (Lovenox) 40 mg BID SUBQ 09/30/20 20:00 12/29/20 19:59 10/02/20 09:29 Fluticasone Propionate (Flonase) 1 spray QHS NASAL 09/18/20 21:00 10/18/20 20:59 10/01/20 20:46 Furosemide (Lasix) 20 mg DAILY ORAL 09/27/20 09:00 10/27/20 08:59 10/02/20 09:30 Guaifenesin (Mucinex ER) 600 mg TWICE A DAY ORAL 09/25/20 09:00 12/24/20 08:59 10/02/20 09:29 Guaifenesin/ Codeine Phosphate (Robitussin with codeine) 10 ml Q6H PRN ORAL For Cough 10/01/20 13:15 10/27/20 18:29 10/02/20 05:34 Heparin Sodium/ Sodium Chloride (Heparin 1000 units/500ml Premix) 1,000 unit ONCE PRN INJ radiology use 09/29/20 13:15 10/02/20 13:14 Hydroxyzine HCl (Atarax) 50 mg Q4H PRN ORAL Itching 09/19/20 06:15 10/19/20 06:14 10/02/20 05:33 Insulin Aspart (NovoLOG) BEFORE MEALS AND HS SUBQ 09/18/20 21:00 12/17/20 20:59 10/02/20 11:30 Lactobacillus Acidophilus (Culturelle) 1 tab TWICE A DAY ORAL 09/25/20 18:00 12/24/20 17:59 10/02/20 09:31 Levalbuterol HCl (Xopenex) 1.25 mg TIDRT PRN HHN Shortness of Breath 09/30/20 17:45 10/05/20 17:44 09/30/20 23:04 Lidocaine HCl (Xylocaine 1% 30ml) 30 ml ONCE PRN INJ radiology use 09/29/20 13:15 10/02/20 13:14 Lorazepam (Ativan) 1 mg Q6H PRN ORAL For Anxiety 09/28/20 14:45 10/05/20 14:44 10/02/20 05:33 Nystatin (Nystatin) 5 ml QID ORAL 10/02/20 09:00 10/09/20 08:59 10/02/20 09:31 Ondansetron HCl (Zofran) 4 mg Q6H PRN IVP Nausea & Vomiting 09/18/20 19:00 10/18/20 18:59 10/02/20 11:53 Pantoprazole (Protonix) 40 mg DAILY ORAL 09/19/20 09:00 10/19/20 08:59 10/02/20 09:30 Potassium Chloride (K-Dur) 20 meq DAILY ORAL 09/20/20 09:00 12/19/20 08:59 10/02/20 09:31 Remdesivir 100 mg/ Sodium Chloride 250 ml @ 250 mls/hr Q24H IV 09/30/20 14:00 10/03/20 14:59 10/01/20 14:00 Sertraline HCl (Zoloft) 100 mg DAILY ORAL 09/19/20 09:00 10/19/20 08:59 10/02/20 09:31 Temazepam (Restoril) 15 mg HSPRN PRN ORAL Insomnia 10/02/20 02:15 10/09/20 02:14 Vitamin B Complex (Vitamin B Complex) 1 tab DAILY ORAL 09/21/20 09:00 12/20/20 08:59 10/02/20 09:29 Vitamin D (Vitamin D) 1,000 unit DAILY ORAL 09/30/20 20:00 10/30/20 19:59 10/02/20 09:29 Zinc Sulfate (Zinc Sulfate) 220 mg DAILY ORAL 09/30/20 20:00 12/29/20 19:59 10/02/20 09:30 Lo Delcid MD Oct 02, 2020 12:25
[2020-10-02] MEDS: Maintenance Dose:Remdesivir 100mg/NS 230ml x 4 Doses IV SCH ×2 (14:06)
--- NOTE | 2020-10-02 18:09 | Cardiology Progress Note ---
Subjective DATE OF SERVICE: Oct 02, 2020 She still has congestion and pleuritic CP. Much more hypoxic today Facial swelling resolved. Glucose still elevated. No CP. Urine Culture positive for MDR pathogen Covid 19 swab negative on admit; repeat PCR positive. CXR (09/28) Worsening infiltrates bilaterally with left eff'n Objective Last 24 Hour Vital Signs Date Time Temp Pulse Resp B/P (MAP) Pulse Ox O2 Delivery O2 Flow Rate FiO2 10/02/20 15:50 Non-Rebreather 15.0 10/02/20 12:00 98.2 95 22 158/67 (97) 95 10/02/20 09:00 80 141/80 10/02/20 09:00 Venturi Mask 14.0 10/02/20 08:00 98.4 97 22 141/80 (100) 96 10/02/20 07:30 96 Venturi Mask 14.0 55 10/02/20 06:03 80 22 136/74 94 10/02/20 05:33 77 22 140/72 94 10/02/20 04:00 98.2 77 22 128/71 (90) 91 10/02/20 02:39 90 26 94 35 10/02/20 00:16 89 18 95 10/02/20 00:00 98.6 95 24 116/55 (75) 94 10/01/20 23:37 Venturi Mask 14.0 10/01/20 20:40 105 20 123/77 97 10/01/20 20:31 94 Venturi Mask 14.0 55 10/01/20 20:10 104 20 125/77 96 10/01/20 20:00 99.3 110 24 148/83 (104) 90 ROS: unchanged from 09/18/20 HEENT: normal ENT inspection RHYTHM: NSR, ST, PACs LUNGS: bilateral rhonchi, coarse breath sounds CARDIAC: normal rate, regular rhythm, normal S1 and S2, gallop/S4 ABDOMEN: normal bowel sounds, non tender, soft, no organomegaly, other - obese EXTREMITIES: +1 edema Laboratory Tests Test 10/01/20 20:20 10/02/20 05:00 10/02/20 05:46 10/02/20 12:04 POC Whole Blood Glucose Pending 243 MG/DL (74-106) H 181 MG/DL (74-106) H White Blood Count 8.9 K/UL (4.8-10.8) Red Blood Count 3.32 M/UL (4.20-5.40) L Hemoglobin 9.3 G/DL (12.0-16.0) L Hematocrit 29.9 % (37.0-47.0) L Mean Corpuscular Volume 90 FL (80-99) Mean Corpuscular Hemoglobin 28.0 PG (27.0-31.0) Mean Corpuscular Hemoglobin Concent 31.2 G/DL (32.0-36.0) L Red Cell Distribution Width 13.1 % (11.6-14.8) Platelet Count 205 K/UL (150-450) Mean Platelet Volume 8.6 FL (6.5-10.1) Neutrophils (%) (Auto) 65.4 % (45.0-75.0) Lymphocytes (%) (Auto) 27.8 % (20.0-45.0) Monocytes (%) (Auto) 6.5 % (1.0-10.0) Eosinophils (%) (Auto) 0.1 % (0.0-3.0) Basophils (%) (Auto) 0.3 % (0.0-2.0) D-Dimer 1.03 mg/L FEU (0.00-0.49) H Sodium Level 139 MMOL/L (136-145) Potassium Level 3.9 MMOL/L (3.5-5.1) Chloride Level 100 MMOL/L (98-107) Carbon Dioxide Level 37 MMOL/L (21-32) H Anion Gap 2 mmol/L (5-15) L Blood Urea Nitrogen 23 mg/dL (7-18) H Creatinine 0.9 MG/DL (0.55-1.30) Estimat Glomerular Filtration Rate > 60 mL/min (>60) Glucose Level 249 MG/DL (74-106) H Calcium Level 8.4 MG/DL (8.5-10.1) L Total Bilirubin 0.1 MG/DL (0.2-1.0) L Direct Bilirubin 0.2 MG/DL (0.0-0.3) Aspartate Amino Transf (AST/SGOT) 23 U/L (15-37) Alanine Aminotransferase (ALT/SGPT) 30 U/L (12-78) Alkaline Phosphatase 65 U/L (46-116) C-Reactive Protein, Quantitative 16.4 mg/dL (0.00-0.90) H Total Protein 6.2 G/DL (6.4-8.2) L Albumin 2.2 G/DL (3.4-5.0) L Globulin 4.0 g/dL Albumin/Globulin Ratio 0.6 (1.0-2.7) L Test 10/02/20 17:14 POC Whole Blood Glucose 367 MG/DL (74-106) H Assessment/Plan Assessment/Plan COVID19 pneumonia COPD exacerbation Hypoxia Acute bronchitis worsening. Ac/chr diastolic CHF with decreasing BNP now - clinically compensated. Hx breast CA Paroxysmal atrial ectopy Hypertensive heart disease Sinus tachycardia improved UTI - K.pn (multi-drug resistant) IRDM uncontrolled on steroids Continue IV steroids Anti-viral rx per ID - remdesivir. O2 suppl and bronchodilator rx Anti-coagulation IV Abx per ID Diuresis based on clinical parameters; trend BNP as needed. Titrate antiHTN regimen as needed. PT/OT Insulin coverage advanced; levemir added. Werner Martinez MD Oct 02, 2020 18:09
--- NOTE | 2020-10-02 18:59 | Pulmonology Progress Note ---
Subjective ROS Limited/Unobtainable: Yes Constitutional: Reports: no symptoms Gastrointestinal/Abdominal: Denies: nausea, vomiting, diarrhea Musculoskeletal: Reports: pain - in chest Allergies: Coded Allergies: AMOXICILLIN (Verified Allergy, Mild, RASH HIVES, 09/29/13) ERYTHROMYCIN BASE (Unverified Allergy, Unknown, 10/13/17) IODINE (Verified Allergy, Unknown, 09/29/13) PENICILLINS (Verified Allergy, Unknown, RASH HIVES, 09/29/13) All Systems: reviewed and negative except above Objective Last 24 Hour Vital Signs Date Time Temp Pulse Resp B/P (MAP) Pulse Ox O2 Delivery O2 Flow Rate FiO2 10/02/20 15:50 Non-Rebreather 15.0 10/02/20 12:00 98.2 95 22 158/67 (97) 95 10/02/20 09:00 80 141/80 10/02/20 09:00 Venturi Mask 14.0 10/02/20 08:00 98.4 97 22 141/80 (100) 96 10/02/20 07:30 96 Venturi Mask 14.0 55 10/02/20 06:03 80 22 136/74 94 10/02/20 05:33 77 22 140/72 94 10/02/20 04:00 98.2 77 22 128/71 (90) 91 10/02/20 02:39 90 26 94 35 10/02/20 00:16 89 18 95 10/02/20 00:00 98.6 95 24 116/55 (75) 94 10/01/20 23:37 Venturi Mask 14.0 10/01/20 20:40 105 20 123/77 97 10/01/20 20:31 94 Venturi Mask 14.0 55 10/01/20 20:10 104 20 125/77 96 10/01/20 20:00 99.3 110 24 148/83 (104) 90 Intake and Output 10/01/20 10/02/20 19:00 07:00 Intake Total 2200 ml Output Total 400 ml Balance 1800 ml Intake Oral 600 ml Other 1600 ml Output Urine Total 400 ml Laboratory Tests 10/01/20 20:20: POC Whole Blood Glucose [Pending] 10/02/20 05:00: White Blood Count 8.9, Red Blood Count 3.32L, Hemoglobin 9.3L, Hematocrit 29.9L, Mean Corpuscular Volume 90, Mean Corpuscular Hemoglobin 28.0, Mean Corpuscular Hemoglobin Concent 31.2L, Red Cell Distribution Width 13.1, Platelet Count 205, Mean Platelet Volume 8.6, Neutrophils (%) (Auto) 65.4, Lymphocytes (%) (Auto) 27.8, Monocytes (%) (Auto) 6.5, Eosinophils (%) (Auto) 0.1, Basophils (%) (Auto) 0.3, D-Dimer 1.03H, Sodium Level 139, Potassium Level 3.9, Chloride Level 100, Carbon Dioxide Level 37H, Anion Gap 2L, Blood Urea Nitrogen 23H, Creatinine 0.9, Estimat Glomerular Filtration Rate > 60, Glucose Level 249H, Calcium Level 8.4L , Total Bilirubin 0.1L, Direct Bilirubin 0.2, Aspartate Amino Transf (AST/SGOT) 23, Alanine Aminotransferase (ALT/SGPT) 30, Alkaline Phosphatase 65, C-Reactive Protein, Quantitative 16.4H, Total Protein 6.2L, Albumin 2.2L, Globulin 4.0, Albumin/Globulin Ratio 0.6L 10/02/20 05:46: POC Whole Blood Glucose 243H 10/02/20 12:04: POC Whole Blood Glucose 181H 10/02/20 17:14: POC Whole Blood Glucose 367H Current Medications Medications (Trade) Dose Ordered Sig/Sera Route PRN Reason Start Time Stop Time Status Last Admin Dose Admin Acetaminophen (Tylenol) 650 mg Q4H PRN ORAL Mild Pain (Pain Scale 1-3) 09/18/20 23:45 10/18/20 23:44 10/02/20 05:34 Amlodipine Besylate (Norvasc) 5 mg DAILY ORAL 09/19/20 09:00 10/19/20 08:59 10/02/20 09:00 Anastrozole (Arimidex) 1 mg DAILY ORAL 09/19/20 09:00 10/19/20 08:59 10/02/20 09:00 Ascorbic Acid (Vitamin C) 500 mg TWICE A DAY ORAL 09/30/20 20:00 10/30/20 19:59 10/02/20 17:08 Budesonide/ Formoterol Fumarate (Symbicort 160/ 4.5) 2 puff BIDRT INH 10/02/20 11:00 12/31/20 10:59 10/02/20 11:00 Cetylpyridinium Chloride (Cepacol) 1 lozg EVERY 2 HOURS PRN LAURA For Cough 09/25/20 18:15 12/24/20 18:14 09/28/20 21:19 Chlorhexidine Gluconate (Brandee-Hex 2%) 1 applic DAILY@2000 TOPIC 09/30/20 20:00 12/29/20 19:59 10/01/20 20:09 Clonidine HCl (Catapres Tab) 0.1 mg Q4H PRN ORAL SBP > 160 09/19/20 17:15 12/18/20 17:14 09/24/20 03:09 Cyclobenzaprine HCl (Flexeril) 10 mg TIDPRN PRN ORAL Muscle Spasm 09/28/20 18:13 10/05/20 18:12 10/01/20 17:39 Dexamethasone (Decadron) 6 mg DAILY ORAL 09/28/20 09:00 10/07/20 08:59 10/02/20 09:29 Dextrose (Dextrose 50%) 25 ml Q30M PRN IV Hypoglycemia 09/18/20 19:00 12/17/20 18:59 Dextrose (Dextrose 50%) 50 ml Q30M PRN IV Hypoglycemia 09/18/20 19:00 12/17/20 18:59 Enoxaparin Sodium (Lovenox) 40 mg BID SUBQ 09/30/20 20:00 12/29/20 19:59 10/02/20 17:22 Fluticasone Propionate (Flonase) 1 spray QHS NASAL 09/18/20 21:00 10/18/20 20:59 10/01/20 20:46 Furosemide (Lasix) 20 mg DAILY ORAL 09/27/20 09:00 10/27/20 08:59 10/02/20 09:30 Guaifenesin (Mucinex ER) 600 mg TWICE A DAY ORAL 09/25/20 09:00 12/24/20 08:59 10/02/20 17:08 Guaifenesin/ Codeine Phosphate (Robitussin with codeine) 10 ml Q6H PRN ORAL For Cough 10/01/20 13:15 10/27/20 18:29 10/02/20 05:34 Hydroxyzine HCl (Atarax) 50 mg Q4H PRN ORAL Itching 09/19/20 06:15 10/19/20 06:14 10/02/20 05:33 Insulin Aspart (NovoLOG) BEFORE MEALS AND HS SUBQ 09/18/20 21:00 12/17/20 20:59 10/02/20 16:30 Lactobacillus Acidophilus (Culturelle) 1 tab TWICE A DAY ORAL 09/25/20 18:00 12/24/20 17:59 10/02/20 17:08 Levalbuterol HCl (Xopenex) 1.25 mg TIDRT PRN HHN Shortness of Breath 09/30/20 17:45 10/05/20 17:44 09/30/20 23:04 Lorazepam (Ativan) 1 mg Q6H PRN ORAL For Anxiety 09/28/20 14:45 10/05/20 14:44 10/02/20 05:33 Nystatin (Nystatin) 5 ml QID ORAL 10/02/20 09:00 10/09/20 08:59 10/02/20 17:08 Ondansetron HCl (Zofran) 4 mg Q6H PRN IVP Nausea & Vomiting 09/18/20 19:00 10/18/20 18:59 10/02/20 11:53 Pantoprazole (Protonix) 40 mg DAILY ORAL 09/19/20 09:00 10/19/20 08:59 10/02/20 09:30 Potassium Chloride (K-Dur) 20 meq DAILY ORAL 09/20/20 09:00 12/19/20 08:59 10/02/20 09:31 Remdesivir 100 mg/ Sodium Chloride 250 ml @ 250 mls/hr Q24H IV 09/30/20 14:00 10/03/20 14:59 10/02/20 14:06 Sertraline HCl (Zoloft) 100 mg DAILY ORAL 09/19/20 09:00 10/19/20 08:59 10/02/20 09:31 Temazepam (Restoril) 15 mg HSPRN PRN ORAL Insomnia 10/02/20 02:15 10/09/20 02:14 Vitamin B Complex (Vitamin B Complex) 1 tab DAILY ORAL 09/21/20 09:00 12/20/20 08:59 10/02/20 09:29 Vitamin D (Vitamin D) 1,000 unit DAILY ORAL 09/30/20 20:00 10/30/20 19:59 10/02/20 09:29 Zinc Sulfate (Zinc Sulfate) 220 mg DAILY ORAL 09/30/20 20:00 12/29/20 19:59 10/02/20 09:30 Assessment/Plan Assessment/Plan Pulmonary Progress Note Subjective ROS Limited/Unobtainable: No Constitutional: Denies: fever, chills Gastrointestinal/Abdominal: Denies: nausea, vomiting, diarrhea Musculoskeletal: Reports: pain - in chest Allergies: Coded Allergies: AMOXICILLIN (Verified Allergy, Mild, RASH HIVES, 09/29/13) ERYTHROMYCIN BASE (Unverified Allergy, Unknown, 10/13/17) IODINE (Verified Allergy, Unknown, 09/29/13) PENICILLINS (Verified Allergy, Unknown, RASH HIVES, 09/29/13) All Systems: reviewed and negative except above Subjective care noted noted congestion and sputum + COVID and on isolation on diuretics higher oxygen needs Objective Vital Signs noted Deferred Covid19 Laboratory Tests noted Medications noted Assessment/Plan Assessment/Plan ASSESSMENT: Chronic respiratory failure COPD exacerbation and facial cellulitis. diabetes, hypertension, chronic hypoxemia chronic debility, pulmonary congestion, COVID+ PLAN: remdesivir and decadron ertapenem sputum culture monitor imaging intensify antibiotics per ID respiratory care as is home meds supportive care oxygen therapy and monitor prognosis guarded impression, plan, and exam edited and reviewed in detail care discussed with Werner Hussein MD Oct 02, 2020 18:59
[2020-10-02] MEDS: Levalbuterol Inh UD 1.25mg/0.5ml HHN PRN (19:16)
[2020-10-02 20:00] VITALS: BP 159/78
--- NOTE | 2020-10-02 22:46 | Psychiatric Progress Note ---
Psychiatry Progress Note Psychiatry Progress Note Subjective cont to have multiple complaints splitting staff Medications Current Medications Medications (Trade) Dose Ordered Sig/Sera Route PRN Reason Start Time Stop Time Status Last Admin Dose Admin Acetaminophen (Tylenol) 650 mg Q4H PRN ORAL Mild Pain (Pain Scale 1-3) 09/18/20 23:45 10/18/20 23:44 10/02/20 05:34 Amlodipine Besylate (Norvasc) 5 mg DAILY ORAL 09/19/20 09:00 10/19/20 08:59 10/02/20 09:00 Anastrozole (Arimidex) 1 mg DAILY ORAL 09/19/20 09:00 10/19/20 08:59 10/02/20 09:00 Ascorbic Acid (Vitamin C) 500 mg TWICE A DAY ORAL 09/30/20 20:00 10/30/20 19:59 10/02/20 17:08 Budesonide/ Formoterol Fumarate (Symbicort 160/ 4.5) 2 puff BIDRT INH 10/02/20 11:00 12/31/20 10:59 10/02/20 11:00 Cetylpyridinium Chloride (Cepacol) 1 lozg EVERY 2 HOURS PRN LAURA For Cough 09/25/20 18:15 12/24/20 18:14 09/28/20 21:19 Chlorhexidine Gluconate (Brandee-Hex 2%) 1 applic DAILY@1999 TOPIC 09/30/20 20:00 12/29/20 19:59 10/01/20 20:09 Clonidine HCl (Catapres Tab) 0.1 mg Q4H PRN ORAL SBP > 160 09/19/20 17:15 12/18/20 17:14 09/24/20 03:09 Cyclobenzaprine HCl (Flexeril) 10 mg TIDPRN PRN ORAL Muscle Spasm 09/28/20 18:13 10/05/20 18:12 10/01/20 17:39 Dexamethasone (Decadron) 6 mg DAILY ORAL 09/28/20 09:00 10/07/20 08:59 10/02/20 09:29 Dextrose (Dextrose 50%) 25 ml Q30M PRN IV Hypoglycemia 10/02/20 22:00 12/31/20 21:59 Dextrose (Dextrose 50%) 50 ml Q30M PRN IV Hypoglycemia 10/02/20 22:00 12/31/20 21:59 Enoxaparin Sodium (Lovenox) 40 mg BID SUBQ 09/30/20 20:00 12/29/20 19:59 10/02/20 17:22 Fluticasone Propionate (Flonase) 1 spray QHS NASAL 09/18/20 21:00 10/18/20 20:59 10/01/20 20:46 Furosemide (Lasix) 20 mg DAILY ORAL 09/27/20 09:00 10/27/20 08:59 10/02/20 09:30 Guaifenesin (Mucinex ER) 600 mg TWICE A DAY ORAL 09/25/20 09:00 12/24/20 08:59 10/02/20 17:08 Guaifenesin/ Codeine Phosphate (Robitussin with codeine) 10 ml Q6H PRN ORAL For Cough 10/01/20 13:15 10/27/20 18:29 10/02/20 05:34 Hydroxyzine HCl (Atarax) 50 mg Q4H PRN ORAL Itching 09/19/20 06:15 10/19/20 06:14 10/02/20 05:33 Insulin Aspart (NovoLOG) BEFORE MEALS AND HS SUBQ 10/03/20 06:30 01/01/21 06:29 Insulin Detemir (Levemir) 10 units BEDTIME SUBQ 10/02/20 22:00 12/31/20 21:59 Lactobacillus Acidophilus (Culturelle) 1 tab TWICE A DAY ORAL 09/25/20 18:00 12/24/20 17:59 10/02/20 17:08 Levalbuterol HCl (Xopenex) 1.25 mg TIDRT PRN HHN Shortness of Breath 09/30/20 17:45 10/05/20 17:44 10/02/20 19:16 Lorazepam (Ativan) 1 mg Q6H PRN ORAL For Anxiety 09/28/20 14:45 10/05/20 14:44 10/02/20 05:33 Nystatin (Nystatin) 5 ml QID ORAL 10/02/20 09:00 10/09/20 08:59 10/02/20 17:08 Ondansetron HCl (Zofran) 4 mg Q6H PRN IVP Nausea & Vomiting 09/18/20 19:00 10/18/20 18:59 10/02/20 11:53 Pantoprazole (Protonix) 40 mg DAILY ORAL 09/19/20 09:00 10/19/20 08:59 10/02/20 09:30 Potassium Chloride (K-Dur) 20 meq DAILY ORAL 09/20/20 09:00 12/19/20 08:59 10/02/20 09:31 Remdesivir 100 mg/ Sodium Chloride 250 ml @ 250 mls/hr Q24H IV 09/30/20 14:00 10/03/20 14:59 10/02/20 14:06 Sertraline HCl (Zoloft) 100 mg DAILY ORAL 09/19/20 09:00 10/19/20 08:59 10/02/20 09:31 Temazepam (Restoril) 15 mg HSPRN PRN ORAL Insomnia 10/02/20 02:15 10/09/20 02:14 Vitamin B Complex (Vitamin B Complex) 1 tab DAILY ORAL 09/21/20 09:00 12/20/20 08:59 10/02/20 09:29 Vitamin D (Vitamin D) 1,000 unit DAILY ORAL 09/30/20 20:00 10/30/20 19:59 10/02/20 09:29 Zinc Sulfate (Zinc Sulfate) 220 mg DAILY ORAL 09/30/20 20:00 12/29/20 19:59 10/02/20 09:30 Neurological/Psychiatric: Reports: no symptoms Allergies: Coded Allergies: AMOXICILLIN (Verified Allergy, Mild, RASH HIVES, 09/29/13) ERYTHROMYCIN BASE (Unverified Allergy, Unknown, 10/13/17) IODINE (Verified Allergy, Unknown, 09/29/13) PENICILLINS (Verified Allergy, Unknown, RASH HIVES, 09/29/13) Objective Data Height (Feet): 5 Height (Inches): 1.00 Weight (Pounds): 210 General Appearance: WD/WN, alert, mild distress Additional Comments: alert and oriented times self, place, and situation. Mood is anxious. Affect is blunted, congruent with mood. Thought process is concrete. Thought content, there is no suicidal or homicidal ideation. Cognition is intact. Insight and judgment is fair. Assessment/Plan [place] I: ASSESSMENT: [place] I Major depressive disorder. Anxiety disorder. [place] II borderline [place] III COPD. [place] IV Low. [place] V 50 PLAN: 1. Continue Zoloft. 2. ativan and ambien prn 3. The patient would like only melatonin. 4. Provide the patient with reality orientation and supportive therapy. Status: stable, progressing Status Narrative ASSESSMENT: [place] I Major depressive disorder. Anxiety disorder. [place] II borderline [place] III COPD. [place] IV Low. [place] V 50 PLAN: 1. Continue Zoloft. 2. ativan and ambien prn 3. The patient would like only melatonin. 4. Provide the patient with reality orientation and supportive therapy. Assessment/Plan: ASSESSMENT: [place] I Major depressive disorder. Anxiety disorder. [place] II borderline [place] III COPD. [place] IV Low. [place] V 50 PLAN: 1. Continue Zoloft. 2. ativan and ambien prn 3. The patient would like only melatonin. 4. Provide the patient with reality orientation and supportive therapy. Jayy Andino MD Oct 02, 2020 22:46
[2020-10-02] MEDS: Flonase Nasal Inhaler 16gm NASAL SCH (22:53)
[2020-10-02] MEDS: Dyna-Hex 2% Top Sol 2oz TOPIC SCH (22:53)
[2020-10-02] MEDS: Levemir Flexpen SUBQ SCH (23:00)
[2020-10-03] MEDS: Cyclobenzaprine 10mg Tab ORAL PRN (01:42)
[2020-10-03 04:00] VITALS: BP 159/81
[2020-10-03] MEDS: NovoLOG Insulin Flexpen SUBQ SCH ×4 (07:00→21:07)
[2020-10-03 08:45] VITALS: BP 177/91
[2020-10-03 08:53] LABS: BASOPHILS % (AUTO) 0.5 % (0.0-2.0); EOSINOPHILS % (AUTO) 0.2 % (0.0-3.0); HEMATOCRIT 28.5 % (37.0-47.0); HEMOGLOBIN 9.6 G/DL (12.0-16.0); LYMPHOCYTES % (AUTO) 25.9 % (20.0-45.0); MEAN CORPUSCULAR VOLUME 83 FL (80-99); MONOCYTES % (AUTO) 6.9 % (1.0-10.0); NEUTROPHILS % (AUTO) 66.4 % (45.0-75.0); PLATELET COUNT 215 K/UL (150-450); RED BLOOD COUNT 3.42 M/UL (4.20-5.40); RED CELL DISTRIBUTION WIDTH 13.6 % (11.6-14.8); WHITE BLOOD COUNT 10.3 K/UL (4.8-10.8)
[2020-10-03] MEDS: Sertraline 100mg tab ORAL SCH (08:59)
[2020-10-03] MEDS: Nystatin Susp 500,000 units/5ml ORAL SCH ×4 (08:59→21:05)
[2020-10-03] MEDS: Vitamin D 1000 units Tab ORAL SCH (08:59)
[2020-10-03] MEDS: Vitamin B Complex Tab ORAL SCH (08:59)
[2020-10-03] MEDS: guaiFENesin ER 600mg tab ORAL SCH ×2 (08:59→18:18)
[2020-10-03] MEDS: Enoxaparin 40mg Inj SUBQ SCH ×2 (08:59→18:19)
[2020-10-03] MEDS: Lactobacillus-GG tablet ORAL SCH ×2 (08:59→18:18)
[2020-10-03] MEDS: Ascorbic Acid 500mg tab ORAL SCH ×2 (08:59→18:18)
[2020-10-03] MEDS: Zinc Sulfate 220mg ORAL SCH (09:00)
[2020-10-03] MEDS: Anastrazole 1mg tab ORAL SCH (09:07)
[2020-10-03 09:08] LABS: ALANINE AMINOTRANSFERASE 30 U/L (12-78); ALBUMIN 2.2 G/DL (3.4-5.0); ALBUMIN/GLOBULIN RATIO 0.5 (1.0-2.7); ALKALINE PHOSPHATASE 70 U/L (46-116); ANION GAP 2 mmol/L (5-15); ASPARTATE AMINO TRANSFERASE 21 U/L (15-37); BILIRUBIN,DIRECT 0.1 MG/DL (0.0-0.3); BILIRUBIN,TOTAL 0.2 MG/DL (0.2-1.0); BLOOD UREA NITROGEN 20 mg/dL (7-18); CALCIUM 8.5 MG/DL (8.5-10.1); CARBON DIOXIDE 39 MMOL/L (21-32); CHLORIDE 96 MMOL/L (98-107); CREATININE 0.8 MG/DL (0.55-1.30); SODIUM 137 MMOL/L (136-145)
--- NOTE | 2020-10-03 09:49 | Diagnostic Imaging Report ---
Indication: Shortness of breath Technique: One view of the chest Comparison: There is a left arm PICC 09/29/2020 post PICC radiograph Findings: There is increased dense consolidation and pleural fluid at the right lung base. There is more generalized interstitial disease is seen throughout the right lung, which is increased, as well as more focal reticular and airspace opacities in the right upper lobe. The left lung is probably clear. There may be some pleural fluid on the left. Impression: Increasing right lung infiltrates and right pleural effusion. New left pleural effusion
--- NOTE | 2020-10-03 09:53 | General Progress Note ---
Subjective ROS Limited/Unobtainable: No Constitutional: Reports: malaise, weakness HEENT: Reports: no symptoms Cardiovascular: Reports: no symptoms Respiratory: Reports: cough, shortness of breath Gastrointestinal/Abdominal: Reports: no symptoms Genitourinary: Reports: no symptoms Neurologic/Psychiatric: Reports: anxiety Endocrine: Reports: no symptoms Hematologic/Lymphatic: Reports: no symptoms Allergies: Coded Allergies: AMOXICILLIN (Verified Allergy, Mild, RASH HIVES, 09/29/13) ERYTHROMYCIN BASE (Unverified Allergy, Unknown, 10/13/17) IODINE (Verified Allergy, Unknown, 09/29/13) PENICILLINS (Verified Allergy, Unknown, RASH HIVES, 09/29/13) All Systems: reviewed and negative except above Subjective no change. stable on nrb. no fever or chills. +sob. cxr pending Objective Last 24 Hour Vital Signs Date Time Temp Pulse Resp B/P (MAP) Pulse Ox O2 Delivery O2 Flow Rate FiO2 10/03/20 08:59 94 177/91 10/03/20 08:45 98.0 94 24 177/91 (119) 96 10/03/20 07:40 95 Non-Rebreather 15.0 100 10/03/20 04:00 98.1 101 22 159/81 (107) 94 10/03/20 03:12 88 25 96 35 10/02/20 21:00 Non-Rebreather 15.0 10/02/20 20:00 98.6 98 22 159/78 (105) 95 10/02/20 19:20 96 18 98 Non-Rebreather 15.0 100 91 18 95 10/02/20 19:18 95 Non-Rebreather 15.0 100 10/02/20 15:50 Non-Rebreather 15.0 10/02/20 12:00 98.2 95 22 158/67 (97) 95 Intake and Output 10/02/20 10/03/20 19:00 07:00 Intake Total 720 ml 480 ml Output Total 1200 ml Balance -480 ml 480 ml Intake Oral 720 ml 480 ml Output Urine Total 1200 ml # Voids 3 2 # Bowel Movements 3 1 Laboratory Tests 10/02/20 12:04: POC Whole Blood Glucose 181H 10/02/20 17:14: POC Whole Blood Glucose 367H 10/03/20 07:18: White Blood Count 10.3, Red Blood Count 3.42L, Hemoglobin 9.6L, Hematocrit 28.5L , Mean Corpuscular Volume 83, Mean Corpuscular Hemoglobin 28.2, Mean Corpuscular Hemoglobin Concent 33.8, Red Cell Distribution Width 13.6, Platelet Count 215, Mean Platelet Volume 8.0, Neutrophils (%) (Auto) 66.4, Lymphocytes (%) (Auto) 25.9, Monocytes (%) (Auto) 6.9, Eosinophils (%) (Auto) 0.2, Basophils (%) (Auto) 0.5, Sodium Level 137, Potassium Level 4.0, Chloride Level 96L, Carbon Dioxide Level 39H, Anion Gap 2L, Blood Urea Nitrogen 20H, Creatinine 0.8, Estimat Glomerular Filtration Rate > 60, Glucose Level 137#H, Calcium Level 8.5, Magnesium Level 1.7L, Total Bilirubin 0.2, Direct Bilirubin 0.1, Aspartate Amino Transf (AST/SGOT) 21, Alanine Aminotransferase (ALT/SGPT) 30, Alkaline Phosphatase 70, Pro-B-Type Natriuretic Peptide [Pending], Total Protein 6.3L, Albumin 2.2L, Globulin 4.1, Albumin/Globulin Ratio 0.5L Height (Feet): 5 Height (Inches): 1.00 Weight (Pounds): 210 Objective General Appearance: WD/WN, alert, mild distress EENT: PERRL/EOMI, normal ENT inspection Neck: non-tender, normal alignment Cardiovascular: normal peripheral pulses, normal rate, regular rhythm Respiratory/Chest: chest wall non-tender, lungs clear, no respiratory distress, no accessory muscle use, +expiratory wheezing Abdomen: normal bowel sounds, non tender, soft, no organomegaly Edema: no edema noted Arm (L), no edema noted 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 (R) 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, no motor/sensory deficits, alert, oriented x 3, responsive, normal mood/affect Assessment/Plan Problem List: (1) Facial cellulitis ICD Codes: L03.211 - Cellulitis of face SNOMED: 094800792 (2) COPD exacerbation ICD Codes: J44.1 - COPD exacerbation SNOMED: 396627258 (3) Toxic metabolic encephalopathy ICD Codes: G92 - Toxic encephalopathy SNOMED: 789334146 (4) Hypertension, malignant ICD Codes: I10 - Hypertension, malignant SNOMED: 03627822 (5) Diabetes mellitus ICD Codes: E11.9 - Diabetes mellitus SNOMED: 91659554 Status: stable, progressing Assessment/Plan: resp rx guaifenesin for cough increased add nystatin o2 as needed psych rx ID eval noted- on remdesivir meropenem per ID decadron monitor cxr monitor blood gases monitor bs cont bp rx dvt/stress ulcer prophylaxis Floyd Downey MD Oct 03, 2020 09:53
[2020-10-03] MEDS ORDERED: Wixela 250/50 Inhaler - 60 dose INH SCH (10:00)
[2020-10-03 12:00] VITALS: BP 124/67
[2020-10-03] MEDS: LORazepam 1mg tab ORAL PRN ×2 (12:33→23:44)
--- NOTE | 2020-10-03 12:59 | Infectious Diseases Prog Note ---
Assessment/Plan Assessment/Plan A: 1. Klebsiella urinary tract infection. 2. Facial cellulitis. 3. COPD exacerbation. 4. DM with hyperglycemia 5 HPN 6. Penicillin allergy 7. COVID19 pneumonia PLAN: 1. continue remdesivir day 3 2. continue dexamethasone day 6 Subjective ROS Limited/Unobtainable: Yes Constitutional: Reports: other - decreased appetite; Denies: fever Respiratory: Reports: shortness of breath Gastrointestinal/Abdominal: Reports: no symptoms Allergies: Coded Allergies: AMOXICILLIN (Verified Allergy, Mild, RASH HIVES, 09/29/13) ERYTHROMYCIN BASE (Unverified Allergy, Unknown, 10/13/17) IODINE (Verified Allergy, Unknown, 09/29/13) PENICILLINS (Verified Allergy, Unknown, RASH HIVES, 09/29/13) Objective Last 24 Hour Vital Signs Date Time Temp Pulse Resp B/P (MAP) Pulse Ox O2 Delivery O2 Flow Rate FiO2 10/03/20 12:33 96 22 124/67 93 10/03/20 12:00 98.0 96 22 124/67 (86) 93 10/03/20 08:59 94 177/91 10/03/20 08:45 98.0 94 24 177/91 (119) 96 10/03/20 07:40 95 Non-Rebreather 15.0 100 10/03/20 04:00 98.1 101 22 159/81 (107) 94 10/03/20 03:12 88 25 96 35 10/02/20 21:00 Non-Rebreather 15.0 10/02/20 20:00 98.6 98 22 159/78 (105) 95 10/02/20 19:20 96 18 98 Non-Rebreather 15.0 100 91 18 95 10/02/20 19:18 95 Non-Rebreather 15.0 100 10/02/20 15:50 Non-Rebreather 15.0 Height (Feet): 5 Height (Inches): 1.00 Weight (Pounds): 210 General Appearance: no acute distress HEENT: mucous membranes moist Respiratory/Chest: other - oxygen by mask, 15 liter/min Abdomen: soft, non tender Extremities: no edema Neurologic/Psychiatric: alert, responsive Laboratory Tests Test 10/02/20 17:14 10/03/20 07:18 10/03/20 11:43 POC Whole Blood Glucose 367 MG/DL (74-106) H Pending White Blood Count 10.3 K/UL (4.8-10.8) Red Blood Count 3.42 M/UL (4.20-5.40) L Hemoglobin 9.6 G/DL (12.0-16.0) L Hematocrit 28.5 % (37.0-47.0) L Mean Corpuscular Volume 83 FL (80-99) Mean Corpuscular Hemoglobin 28.2 PG (27.0-31.0) Mean Corpuscular Hemoglobin Concent 33.8 G/DL (32.0-36.0) Red Cell Distribution Width 13.6 % (11.6-14.8) Platelet Count 215 K/UL (150-450) Mean Platelet Volume 8.0 FL (6.5-10.1) Neutrophils (%) (Auto) 66.4 % (45.0-75.0) Lymphocytes (%) (Auto) 25.9 % (20.0-45.0) Monocytes (%) (Auto) 6.9 % (1.0-10.0) Eosinophils (%) (Auto) 0.2 % (0.0-3.0) Basophils (%) (Auto) 0.5 % (0.0-2.0) Sodium Level 137 MMOL/L (136-145) Potassium Level 4.0 MMOL/L (3.5-5.1) Chloride Level 96 MMOL/L (98-107) L Carbon Dioxide Level 39 MMOL/L (21-32) H Anion Gap 2 mmol/L (5-15) L Blood Urea Nitrogen 20 mg/dL (7-18) H Creatinine 0.8 MG/DL (0.55-1.30) Estimat Glomerular Filtration Rate > 60 mL/min (>60) Glucose Level 137 MG/DL (74-106) #H Calcium Level 8.5 MG/DL (8.5-10.1) Magnesium Level 1.7 MG/DL (1.8-2.4) L Total Bilirubin 0.2 MG/DL (0.2-1.0) Direct Bilirubin 0.1 MG/DL (0.0-0.3) Aspartate Amino Transf (AST/SGOT) 21 U/L (15-37) Alanine Aminotransferase (ALT/SGPT) 30 U/L (12-78) Alkaline Phosphatase 70 U/L (46-116) Pro-B-Type Natriuretic Peptide Pending Total Protein 6.3 G/DL (6.4-8.2) L Albumin 2.2 G/DL (3.4-5.0) L Globulin 4.1 g/dL Albumin/Globulin Ratio 0.5 (1.0-2.7) L Current Medications Medications (Trade) Dose Ordered Sig/Sera Route PRN Reason Start Time Stop Time Status Last Admin Dose Admin Acetaminophen (Tylenol) 650 mg Q4H PRN ORAL Mild Pain (Pain Scale 1-3) 09/18/20 23:45 10/18/20 23:44 10/02/20 23:12 Amlodipine Besylate (Norvasc) 5 mg DAILY ORAL 09/19/20 09:00 10/19/20 08:59 10/03/20 08:59 Anastrozole (Arimidex) 1 mg DAILY ORAL 09/19/20 09:00 10/19/20 08:59 10/03/20 09:07 Ascorbic Acid (Vitamin C) 500 mg TWICE A DAY ORAL 09/30/20 20:00 10/30/20 19:59 10/03/20 08:59 Budesonide/ Formoterol Fumarate (Symbicort 160/ 4.5) 2 puff BIDRT INH 10/02/20 11:00 12/31/20 10:59 10/02/20 11:00 Cetylpyridinium Chloride (Cepacol) 1 lozg EVERY 2 HOURS PRN LAURA For Cough 09/25/20 18:15 12/24/20 18:14 09/28/20 21:19 Chlorhexidine Gluconate (Brandee-Hex 2%) 1 applic DAILY@2000 TOPIC 09/30/20 20:00 12/29/20 19:59 10/02/20 22:53 Clonidine HCl (Catapres Tab) 0.1 mg Q4H PRN ORAL SBP > 160 09/19/20 17:15 12/18/20 17:14 09/24/20 03:09 Cyclobenzaprine HCl (Flexeril) 10 mg TIDPRN PRN ORAL Muscle Spasm 09/28/20 18:13 10/05/20 18:12 10/03/20 01:42 Dexamethasone (Decadron) 6 mg DAILY ORAL 09/28/20 09:00 10/07/20 08:59 10/03/20 08:59 Dextrose (Dextrose 50%) 25 ml Q30M PRN IV Hypoglycemia 10/02/20 22:00 12/31/20 21:59 Dextrose (Dextrose 50%) 50 ml Q30M PRN IV Hypoglycemia 10/02/20 22:00 12/31/20 21:59 Enoxaparin Sodium (Lovenox) 40 mg BID SUBQ 09/30/20 20:00 12/29/20 19:59 10/03/20 08:59 Fluticasone Propionate (Flonase) 1 spray QHS NASAL 09/18/20 21:00 10/18/20 20:59 10/02/20 22:53 Furosemide (Lasix) 20 mg DAILY ORAL 09/27/20 09:00 10/27/20 08:59 10/03/20 09:00 Guaifenesin (Mucinex ER) 600 mg TWICE A DAY ORAL 09/25/20 09:00 12/24/20 08:59 10/03/20 08:59 Guaifenesin/ Codeine Phosphate (Robitussin with codeine) 10 ml Q6H PRN ORAL For Cough 10/01/20 13:15 10/27/20 18:29 10/02/20 23:00 Hydroxyzine HCl (Atarax) 50 mg Q4H PRN ORAL Itching 09/19/20 06:15 10/19/20 06:14 10/02/20 05:33 Insulin Aspart (NovoLOG) BEFORE MEALS AND HS SUBQ 10/03/20 06:30 01/01/21 06:29 10/03/20 11:50 Insulin Detemir (Levemir) 10 units BEDTIME SUBQ 10/02/20 22:00 12/31/20 21:59 Lactobacillus Acidophilus (Culturelle) 1 tab TWICE A DAY ORAL 09/25/20 18:00 12/24/20 17:59 10/03/20 08:59 Levalbuterol HCl (Xopenex) 1.25 mg TIDRT PRN HHN Shortness of Breath 09/30/20 17:45 10/05/20 17:44 10/02/20 19:16 Lorazepam (Ativan) 1 mg Q6H PRN ORAL For Anxiety 09/28/20 14:45 10/05/20 14:44 10/03/20 12:33 Nystatin (Nystatin) 5 ml QID ORAL 10/02/20 09:00 10/09/20 08:59 10/03/20 12:33 Ondansetron HCl (Zofran) 4 mg Q6H PRN IVP Nausea & Vomiting 09/18/20 19:00 10/18/20 18:59 10/02/20 11:53 Pantoprazole (Protonix) 40 mg DAILY ORAL 09/19/20 09:00 10/19/20 08:59 10/03/20 08:59 Potassium Chloride (K-Dur) 20 meq DAILY ORAL 09/20/20 09:00 12/19/20 08:59 10/03/20 08:59 Remdesivir 100 mg/ Sodium Chloride 250 ml @ 250 mls/hr Q24H IV 09/30/20 14:00 10/03/20 14:59 10/02/20 14:06 Sertraline HCl (Zoloft) 100 mg DAILY ORAL 09/19/20 09:00 10/19/20 08:59 10/03/20 08:59 Temazepam (Restoril) 15 mg HSPRN PRN ORAL Insomnia 10/02/20 02:15 10/09/20 02:14 10/02/20 23:00 Vitamin B Complex (Vitamin B Complex) 1 tab DAILY ORAL 09/21/20 09:00 12/20/20 08:59 10/03/20 08:59 Vitamin D (Vitamin D) 1,000 unit DAILY ORAL 09/30/20 20:00 10/30/20 19:59 10/03/20 08:59 Zinc Sulfate (Zinc Sulfate) 220 mg DAILY ORAL 09/30/20 20:00 12/29/20 19:59 10/03/20 09:00 Rene Schultz MD Oct 03, 2020 12:59
[2020-10-03] MEDS: Maintenance Dose:Remdesivir 100mg/NS 230ml x 4 Doses IV SCH ×2 (14:01)
[2020-10-03 16:00] VITALS: BP 131/70
[2020-10-03] MEDS: Docusate 250mg cap ORAL SCH (16:09)
[2020-10-03] MEDS: Milk of Magnesia 30ml Ud ORAL PRN (16:09)
[2020-10-03] MEDS: Dyna-Hex 2% Top Sol 2oz TOPIC SCH (19:39)
--- NOTE | 2020-10-03 19:52 | Pulmonology Progress Note ---
Subjective ROS Limited/Unobtainable: Yes Constitutional: Reports: other - decreased appetite; Denies: fever Gastrointestinal/Abdominal: Reports: no symptoms Musculoskeletal: Reports: pain - in chest Allergies: Coded Allergies: AMOXICILLIN (Verified Allergy, Mild, RASH HIVES, 09/29/13) ERYTHROMYCIN BASE (Unverified Allergy, Unknown, 10/13/17) IODINE (Verified Allergy, Unknown, 09/29/13) PENICILLINS (Verified Allergy, Unknown, RASH HIVES, 09/29/13) All Systems: reviewed and negative except above Objective Last 24 Hour Vital Signs Date Time Temp Pulse Resp B/P (MAP) Pulse Ox O2 Delivery O2 Flow Rate FiO2 10/03/20 19:43 97 Non-Rebreather 15.0 100 10/03/20 16:00 98.4 83 22 131/70 (90) 95 10/03/20 12:33 96 22 124/67 93 10/03/20 12:00 98.0 96 22 124/67 (86) 93 10/03/20 09:00 Non-Rebreather 15.0 10/03/20 08:59 94 177/91 10/03/20 08:45 98.0 94 24 177/91 (119) 96 10/03/20 07:40 95 Non-Rebreather 15.0 100 10/03/20 04:00 98.1 101 22 159/81 (107) 94 10/03/20 03:12 88 25 96 35 10/02/20 21:00 Non-Rebreather 15.0 10/02/20 20:00 98.6 98 22 159/78 (105) 95 Intake and Output 10/02/20 10/03/20 18:59 06:59 Intake Total 720 ml 480 ml Output Total 1200 ml Balance -480 ml 480 ml Intake Oral 720 ml 480 ml Output Urine Total 1200 ml # Voids 3 2 # Bowel Movements 3 1 Laboratory Tests 10/03/20 07:18: White Blood Count 10.3, Red Blood Count 3.42L, Hemoglobin 9.6L, Hematocrit 28.5L , Mean Corpuscular Volume 83, Mean Corpuscular Hemoglobin 28.2, Mean Corpuscular Hemoglobin Concent 33.8, Red Cell Distribution Width 13.6, Platelet Count 215, Mean Platelet Volume 8.0, Neutrophils (%) (Auto) 66.4, Lymphocytes (%) (Auto) 25.9, Monocytes (%) (Auto) 6.9, Eosinophils (%) (Auto) 0.2, Basophils (%) (Auto) 0.5, Sodium Level 137, Potassium Level 4.0, Chloride Level 96L, Carbon Dioxide Level 39H, Anion Gap 2L, Blood Urea Nitrogen 20H, Creatinine 0.8, Estimat Glomerular Filtration Rate > 60, Glucose Level 137#H, Calcium Level 8.5, Magnesium Level 1.7L, Total Bilirubin 0.2, Direct Bilirubin 0.1, Aspartate Amino Transf (AST/SGOT) 21, Alanine Aminotransferase (ALT/SGPT) 30, Alkaline Phosphatase 70, Pro-B-Type Natriuretic Peptide 96, Total Protein 6.3L, Albumin 2.2L, Globulin 4.1, Albumin/Globulin Ratio 0.5L 10/03/20 11:43: POC Whole Blood Glucose [Pending] 10/03/20 16:14: POC Whole Blood Glucose 318H Current Medications Medications (Trade) Dose Ordered Sig/Sera Route PRN Reason Start Time Stop Time Status Last Admin Dose Admin Acetaminophen (Tylenol) 650 mg Q4H PRN ORAL Mild Pain (Pain Scale 1-3) 09/18/20 23:45 10/18/20 23:44 10/02/20 23:12 Amlodipine Besylate (Norvasc) 5 mg DAILY ORAL 09/19/20 09:00 10/19/20 08:59 10/03/20 08:59 Anastrozole (Arimidex) 1 mg DAILY ORAL 09/19/20 09:00 10/19/20 08:59 10/03/20 09:07 Ascorbic Acid (Vitamin C) 500 mg TWICE A DAY ORAL 09/30/20 20:00 10/30/20 19:59 10/03/20 18:18 Budesonide/ Formoterol Fumarate (Symbicort 160/ 4.5) 2 puff BIDRT INH 10/02/20 11:00 12/31/20 10:59 10/02/20 11:00 Cetylpyridinium Chloride (Cepacol) 1 lozg EVERY 2 HOURS PRN LAURA For Cough 09/25/20 18:15 12/24/20 18:14 09/28/20 21:19 Chlorhexidine Gluconate (Brandee-Hex 2%) 1 applic DAILY@2000 TOPIC 09/30/20 20:00 12/29/20 19:59 10/03/20 19:39 Clonidine HCl (Catapres Tab) 0.1 mg Q4H PRN ORAL SBP > 160 09/19/20 17:15 12/18/20 17:14 09/24/20 03:09 Cyclobenzaprine HCl (Flexeril) 10 mg TIDPRN PRN ORAL Muscle Spasm 09/28/20 18:13 10/05/20 18:12 10/03/20 01:42 Dexamethasone (Decadron) 6 mg DAILY ORAL 09/28/20 09:00 10/07/20 08:59 10/03/20 08:59 Dextrose (Dextrose 50%) 25 ml Q30M PRN IV Hypoglycemia 10/02/20 22:00 12/31/20 21:59 Dextrose (Dextrose 50%) 50 ml Q30M PRN IV Hypoglycemia 10/02/20 22:00 12/31/20 21:59 Docusate Sodium (Colace) 250 mg DAILY ORAL 10/03/20 15:15 11/02/20 15:14 10/03/20 16:09 Enoxaparin Sodium (Lovenox) 40 mg BID SUBQ 09/30/20 20:00 12/29/20 19:59 10/03/20 18:19 Fluticasone Propionate (Flonase) 1 spray QHS NASAL 09/18/20 21:00 10/18/20 20:59 10/02/20 22:53 Furosemide (Lasix) 20 mg DAILY ORAL 09/27/20 09:00 10/27/20 08:59 10/03/20 09:00 Furosemide (Lasix) 20 mg ONCE IV 10/03/20 19:15 10/03/20 21:00 Guaifenesin (Mucinex ER) 600 mg TWICE A DAY ORAL 09/25/20 09:00 12/24/20 08:59 10/03/20 18:18 Guaifenesin/ Codeine Phosphate (Robitussin with codeine) 10 ml Q6H PRN ORAL For Cough 10/01/20 13:15 10/27/20 18:29 10/02/20 23:00 Hydroxyzine HCl (Atarax) 50 mg Q4H PRN ORAL Itching 09/19/20 06:15 10/19/20 06:14 10/02/20 05:33 Insulin Aspart (NovoLOG) BEFORE MEALS AND HS SUBQ 10/03/20 06:30 01/01/21 06:29 10/03/20 16:19 Insulin Detemir (Levemir) 10 units BEDTIME SUBQ 10/02/20 22:00 12/31/20 21:59 Lactobacillus Acidophilus (Culturelle) 1 tab TWICE A DAY ORAL 09/25/20 18:00 12/24/20 17:59 10/03/20 18:18 Levalbuterol HCl (Xopenex) 1.25 mg TIDRT PRN HHN Shortness of Breath 09/30/20 17:45 10/05/20 17:44 10/02/20 19:16 Lorazepam (Ativan) 1 mg Q6H PRN ORAL For Anxiety 09/28/20 14:45 10/05/20 14:44 10/03/20 12:33 Magnesium Hydroxide (Mom) 30 ml DAILYPRN PRN ORAL Constipation 10/03/20 15:15 11/02/20 15:14 10/03/20 16:09 Magnesium Sulfate 100 ml @ 100 mls/hr Q1H IVPB 10/03/20 19:30 10/03/20 21:29 10/03/20 19:39 Nystatin (Nystatin) 5 ml QID ORAL 10/02/20 09:00 10/09/20 08:59 10/03/20 18:18 Ondansetron HCl (Zofran) 4 mg Q6H PRN IVP Nausea & Vomiting 09/18/20 19:00 10/18/20 18:59 10/02/20 11:53 Pantoprazole (Protonix) 40 mg DAILY ORAL 09/19/20 09:00 10/19/20 08:59 10/03/20 08:59 Potassium Chloride (K-Dur) 20 meq DAILY ORAL 09/20/20 09:00 12/19/20 08:59 10/03/20 08:59 Sertraline HCl (Zoloft) 100 mg DAILY ORAL 09/19/20 09:00 10/19/20 08:59 10/03/20 08:59 Temazepam (Restoril) 15 mg HSPRN PRN ORAL Insomnia 10/02/20 02:15 10/09/20 02:14 10/02/20 23:00 Vitamin B Complex (Vitamin B Complex) 1 tab DAILY ORAL 09/21/20 09:00 12/20/20 08:59 10/03/20 08:59 Vitamin D (Vitamin D) 1,000 unit DAILY ORAL 09/30/20 20:00 10/30/20 19:59 10/03/20 08:59 Zinc Sulfate (Zinc Sulfate) 220 mg DAILY ORAL 09/30/20 20:00 12/29/20 19:59 10/03/20 09:00 Assessment/Plan Assessment/Plan Pulmonary Progress Note Subjective ROS Limited/Unobtainable: No Constitutional: Denies: fever, chills Gastrointestinal/Abdominal: Denies: nausea, vomiting, diarrhea Musculoskeletal: Reports: pain - in chest Allergies: Coded Allergies: AMOXICILLIN (Verified Allergy, Mild, RASH HIVES, 09/29/13) ERYTHROMYCIN BASE (Unverified Allergy, Unknown, 10/13/17) IODINE (Verified Allergy, Unknown, 09/29/13) PENICILLINS (Verified Allergy, Unknown, RASH HIVES, 09/29/13) All Systems: reviewed and negative except above Subjective care noted noted congestion and sputum + COVID and on isolation on diuretics higher oxygen needs Objective Vital Signs noted Deferred Covid19 Laboratory Tests noted Medications noted CXR worsening infiltrates Assessment/Plan Assessment/Plan ASSESSMENT: Chronic respiratory failure COPD exacerbation and facial cellulitis. diabetes, hypertension, chronic hypoxemia chronic debility, pulmonary congestion, COVID+ PLAN: remdesivir and decadron ertapenem sputum culture monitor imaging intensify antibiotics per ID respiratory care as is home meds supportive care oxygen therapy and monitor prognosis guarded impression, plan, and exam edited and reviewed in detail care discussed with Werner Hussein MD Oct 03, 2020 19:52
[2020-10-03 20:00] VITALS: BP 141/103
[2020-10-03] MEDS ORDERED: Levemir Flexpen SUBQ SCH (21:00)
[2020-10-03] MEDS: Levemir Flexpen SUBQ SCH (21:07)
[2020-10-03] MEDS: Flonase Nasal Inhaler 16gm NASAL SCH (21:08)
--- NOTE | 2020-10-03 23:01 | Psychiatric Progress Note ---
Psychiatry Progress Note Psychiatry Progress Note Subjective cont to have multiple complaints splitting staff Medications Current Medications Medications (Trade) Dose Ordered Sig/Sera Route PRN Reason Start Time Stop Time Status Last Admin Dose Admin Acetaminophen (Tylenol) 650 mg Q4H PRN ORAL Mild Pain (Pain Scale 1-3) 09/18/20 23:45 10/18/20 23:44 10/02/20 23:12 Amlodipine Besylate (Norvasc) 5 mg DAILY ORAL 09/19/20 09:00 10/19/20 08:59 10/03/20 08:59 Anastrozole (Arimidex) 1 mg DAILY ORAL 09/19/20 09:00 10/19/20 08:59 10/03/20 09:07 Ascorbic Acid (Vitamin C) 500 mg TWICE A DAY ORAL 09/30/20 20:00 10/30/20 19:59 10/03/20 18:18 Budesonide/ Formoterol Fumarate (Symbicort 160/ 4.5) 2 puff BIDRT INH 10/02/20 11:00 12/31/20 10:59 10/02/20 11:00 Cetylpyridinium Chloride (Cepacol) 1 lozg EVERY 2 HOURS PRN LAURA For Cough 09/25/20 18:15 12/24/20 18:14 09/28/20 21:19 Chlorhexidine Gluconate (Brandee-Hex 2%) 1 applic DAILY@1999 TOPIC 09/30/20 20:00 12/29/20 19:59 10/03/20 19:39 Clonidine HCl (Catapres Tab) 0.1 mg Q4H PRN ORAL SBP > 160 09/19/20 17:15 12/18/20 17:14 09/24/20 03:09 Cyclobenzaprine HCl (Flexeril) 10 mg TIDPRN PRN ORAL Muscle Spasm 09/28/20 18:13 10/05/20 18:12 10/03/20 01:42 Dexamethasone (Decadron) 6 mg DAILY ORAL 09/28/20 09:00 10/07/20 08:59 10/03/20 08:59 Dextrose (Dextrose 50%) 25 ml Q30M PRN IV Hypoglycemia 10/02/20 22:00 12/31/20 21:59 Dextrose (Dextrose 50%) 50 ml Q30M PRN IV Hypoglycemia 10/02/20 22:00 12/31/20 21:59 Docusate Sodium (Colace) 250 mg DAILY ORAL 10/03/20 15:15 11/02/20 15:14 10/03/20 16:09 Enoxaparin Sodium (Lovenox) 40 mg BID SUBQ 09/30/20 20:00 12/29/20 19:59 10/03/20 18:19 Fluticasone Propionate (Flonase) 1 spray QHS NASAL 09/18/20 21:00 10/18/20 20:59 10/03/20 21:08 Furosemide (Lasix) 20 mg DAILY ORAL 09/27/20 09:00 10/27/20 08:59 10/03/20 09:00 Guaifenesin (Mucinex ER) 600 mg TWICE A DAY ORAL 09/25/20 09:00 12/24/20 08:59 10/03/20 18:18 Guaifenesin/ Codeine Phosphate (Robitussin with codeine) 10 ml Q6H PRN ORAL For Cough 10/01/20 13:15 10/27/20 18:29 10/02/20 23:00 Hydroxyzine HCl (Atarax) 50 mg Q4H PRN ORAL Itching 09/19/20 06:15 10/19/20 06:14 10/02/20 05:33 Insulin Aspart (NovoLOG) BEFORE MEALS AND HS SUBQ 10/03/20 06:30 01/01/21 06:29 10/03/20 21:07 Insulin Detemir (Levemir) 10 units BEDTIME SUBQ 10/02/20 22:00 12/31/20 21:59 10/03/20 21:07 Lactobacillus Acidophilus (Culturelle) 1 tab TWICE A DAY ORAL 09/25/20 18:00 12/24/20 17:59 10/03/20 18:18 Levalbuterol HCl (Xopenex) 1.25 mg TIDRT PRN HHN Shortness of Breath 09/30/20 17:45 10/05/20 17:44 10/02/20 19:16 Lorazepam (Ativan) 1 mg Q6H PRN ORAL For Anxiety 09/28/20 14:45 10/05/20 14:44 10/03/20 12:33 Magnesium Hydroxide (Mom) 30 ml DAILYPRN PRN ORAL Constipation 10/03/20 15:15 11/02/20 15:14 10/03/20 16:09 Nystatin (Nystatin) 5 ml QID ORAL 10/02/20 09:00 10/09/20 08:59 10/03/20 21:05 Ondansetron HCl (Zofran) 4 mg Q6H PRN IVP Nausea & Vomiting 09/18/20 19:00 10/18/20 18:59 10/02/20 11:53 Pantoprazole (Protonix) 40 mg DAILY ORAL 09/19/20 09:00 10/19/20 08:59 10/03/20 08:59 Potassium Chloride (K-Dur) 20 meq DAILY ORAL 09/20/20 09:00 12/19/20 08:59 10/03/20 08:59 Sertraline HCl (Zoloft) 100 mg DAILY ORAL 09/19/20 09:00 10/19/20 08:59 10/03/20 08:59 Temazepam (Restoril) 15 mg HSPRN PRN ORAL Insomnia 10/02/20 02:15 10/09/20 02:14 10/02/20 23:00 Vitamin B Complex (Vitamin B Complex) 1 tab DAILY ORAL 09/21/20 09:00 12/20/20 08:59 10/03/20 08:59 Vitamin D (Vitamin D) 1,000 unit DAILY ORAL 09/30/20 20:00 10/30/20 19:59 10/03/20 08:59 Zinc Sulfate (Zinc Sulfate) 220 mg DAILY ORAL 09/30/20 20:00 12/29/20 19:59 10/03/20 09:00 Neurological/Psychiatric: Reports: anxiety Allergies: Coded Allergies: AMOXICILLIN (Verified Allergy, Mild, RASH HIVES, 09/29/13) ERYTHROMYCIN BASE (Unverified Allergy, Unknown, 10/13/17) IODINE (Verified Allergy, Unknown, 09/29/13) PENICILLINS (Verified Allergy, Unknown, RASH HIVES, 09/29/13) Objective Data Height (Feet): 5 Height (Inches): 1.00 Weight (Pounds): 210 General Appearance: WD/WN, alert, mild distress Additional Comments: alert and oriented times self, place, and situation. Mood is anxious. Affect is blunted, congruent with mood. Thought process is concrete. Thought content, there is no suicidal or homicidal ideation. Cognition is intact. Insight and judgment is fair. Assessment/Plan [place] I: ASSESSMENT: [place] I Major depressive disorder. Anxiety disorder. [place] II borderline [place] III COPD. [place] IV Low. [place] V 50 PLAN: 1. Continue Zoloft. 2. ativan and ambien prn 3. The patient would like only melatonin. 4. Provide the patient with reality orientation and supportive therapy. Status: stable, progressing Status Narrative ASSESSMENT: [place] I Major depressive disorder. Anxiety disorder. [place] II borderline [place] III COPD. [place] IV Low. [place] V 50 PLAN: 1. Continue Zoloft. 2. ativan and ambien prn 3. The patient would like only melatonin. 4. Provide the patient with reality orientation and supportive therapy. Assessment/Plan: ASSESSMENT: [place] I Major depressive disorder. Anxiety disorder. [place] II borderline [place] III COPD. [place] IV Low. [place] V 50 PLAN: 1. Continue Zoloft. 2. ativan and ambien prn 3. The patient would like only melatonin. 4. Provide the patient with reality orientation and supportive therapy. Jayy Andino MD Oct 03, 2020 23:01
[2020-10-03] MEDS: HydrOXYzine 50mg tab ORAL PRN (23:44)
[2020-10-03] MEDS: guaiFENesin w/Codeine 5ml Liq ud ORAL PRN (23:44)
--- NOTE | 2020-10-04 01:33 | Cardiology Progress Note ---
Subjective DATE OF SERVICE: Oct 03, 2020 She has more congestion and pleuritic CP. Remains significantly hypoxic Glucose still elevated. No CP. Urine Culture positive for MDR pathogen Covid 19 swab negative on admit; repeat PCR positive. CXR (09/28) Worsening infiltrates bilaterally with left eff'n Objective Last 24 Hour Vital Signs Date Time Temp Pulse Resp B/P (MAP) Pulse Ox O2 Delivery O2 Flow Rate FiO2 10/04/20 00:14 94 21 141/103 95 10/04/20 00:14 97.3 10/03/20 23:44 94 21 141/103 95 10/03/20 21:00 Non-Rebreather 15.0 10/03/20 20:00 97.3 94 21 141/103 (116) 95 10/03/20 19:43 97 Non-Rebreather 15.0 100 10/03/20 16:00 98.4 83 22 131/70 (90) 95 10/03/20 12:33 96 22 124/67 93 10/03/20 12:00 98.0 96 22 124/67 (86) 93 10/03/20 09:00 Non-Rebreather 15.0 10/03/20 08:59 94 177/91 10/03/20 08:45 98.0 94 24 177/91 (119) 96 10/03/20 07:40 95 Non-Rebreather 15.0 100 10/03/20 04:00 98.1 101 22 159/81 (107) 94 10/03/20 03:12 88 25 96 35 ROS: unchanged from 09/18/20 HEENT: normal ENT inspection RHYTHM: NSR, ST, PACs LUNGS: bilateral rhonchi, coarse breath sounds CARDIAC: normal rate, regular rhythm, normal S1 and S2, gallop/S4 ABDOMEN: normal bowel sounds, non tender, soft, no organomegaly, other - obese EXTREMITIES: +1 edema Laboratory Tests Test 10/03/20 07:18 10/03/20 11:43 10/03/20 16:14 White Blood Count 10.3 K/UL (4.8-10.8) Red Blood Count 3.42 M/UL (4.20-5.40) L Hemoglobin 9.6 G/DL (12.0-16.0) L Hematocrit 28.5 % (37.0-47.0) L Mean Corpuscular Volume 83 FL (80-99) Mean Corpuscular Hemoglobin 28.2 PG (27.0-31.0) Mean Corpuscular Hemoglobin Concent 33.8 G/DL (32.0-36.0) Red Cell Distribution Width 13.6 % (11.6-14.8) Platelet Count 215 K/UL (150-450) Mean Platelet Volume 8.0 FL (6.5-10.1) Neutrophils (%) (Auto) 66.4 % (45.0-75.0) Lymphocytes (%) (Auto) 25.9 % (20.0-45.0) Monocytes (%) (Auto) 6.9 % (1.0-10.0) Eosinophils (%) (Auto) 0.2 % (0.0-3.0) Basophils (%) (Auto) 0.5 % (0.0-2.0) Sodium Level 137 MMOL/L (136-145) Potassium Level 4.0 MMOL/L (3.5-5.1) Chloride Level 96 MMOL/L (98-107) L Carbon Dioxide Level 39 MMOL/L (21-32) H Anion Gap 2 mmol/L (5-15) L Blood Urea Nitrogen 20 mg/dL (7-18) H Creatinine 0.8 MG/DL (0.55-1.30) Estimat Glomerular Filtration Rate > 60 mL/min (>60) Glucose Level 137 MG/DL (74-106) #H Calcium Level 8.5 MG/DL (8.5-10.1) Magnesium Level 1.7 MG/DL (1.8-2.4) L Total Bilirubin 0.2 MG/DL (0.2-1.0) Direct Bilirubin 0.1 MG/DL (0.0-0.3) Aspartate Amino Transf (AST/SGOT) 21 U/L (15-37) Alanine Aminotransferase (ALT/SGPT) 30 U/L (12-78) Alkaline Phosphatase 70 U/L (46-116) Pro-B-Type Natriuretic Peptide 96 pg/mL (0-125) Total Protein 6.3 G/DL (6.4-8.2) L Albumin 2.2 G/DL (3.4-5.0) L Globulin 4.1 g/dL Albumin/Globulin Ratio 0.5 (1.0-2.7) L POC Whole Blood Glucose Pending 318 MG/DL (74-106) H Assessment/Plan Assessment/Plan COVID19 pneumonia COPD exacerbation Hypoxia Acute bronchitis worsening. Ac/chr diastolic CHF with decreasing BNP now - clinically compensated. 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 O2 suppl and bronchodilator rx Anti-coagulation IV Abx per ID Diuresis based on clinical parameters; trend BNP as needed. Titrate antiHTN regimen as needed. Insulin coverage with ongoing levemir titration. Bowel regimen Werner Martinez MD Oct 04, 2020 01:32
[2020-10-04 04:00] VITALS: BP 137/91
[2020-10-04] MEDS: NovoLOG Insulin Flexpen SUBQ SCH ×4 (06:06→21:03)
[2020-10-04 07:28] LABS: ALANINE AMINOTRANSFERASE 27 U/L (12-78); ALBUMIN 2.4 G/DL (3.4-5.0); ALBUMIN/GLOBULIN RATIO 0.5 (1.0-2.7); ALKALINE PHOSPHATASE 74 U/L (46-116); ANION GAP 3 mmol/L (5-15); ASPARTATE AMINO TRANSFERASE 21 U/L (15-37); BILIRUBIN,TOTAL 0.3 MG/DL (0.2-1.0); BLOOD UREA NITROGEN 16 mg/dL (7-18); CALCIUM 8.9 MG/DL (8.5-10.1); CARBON DIOXIDE 37 MMOL/L (21-32); CHLORIDE 98 MMOL/L (98-107); CREATININE 0.8 MG/DL (0.55-1.30); POTASSIUM 4.3 MMOL/L (3.5-5.1); SODIUM 138 MMOL/L (136-145)
[2020-10-04 08:00] VITALS: BP 145/75
[2020-10-04] MEDS: Enoxaparin 40mg Inj SUBQ SCH ×2 (09:03→17:04)
[2020-10-04] MEDS: Zinc Sulfate 220mg ORAL SCH (09:04)
[2020-10-04] MEDS: Vitamin D 1000 units Tab ORAL SCH (09:04)
[2020-10-04] MEDS: Sertraline 100mg tab ORAL SCH (09:04)
[2020-10-04] MEDS: Vitamin B Complex Tab ORAL SCH (09:04)
[2020-10-04] MEDS: guaiFENesin ER 600mg tab ORAL SCH ×2 (09:04→17:03)
[2020-10-04] MEDS: Ascorbic Acid 500mg tab ORAL SCH ×2 (09:04→17:03)
[2020-10-04] MEDS: Anastrazole 1mg tab ORAL SCH (09:05)
[2020-10-04] MEDS: Docusate 250mg cap ORAL SCH (09:05)
[2020-10-04] MEDS: Nystatin Susp 500,000 units/5ml ORAL SCH ×4 (09:05→20:18)
[2020-10-04] MEDS: Lactobacillus-GG tablet ORAL SCH ×2 (09:05→17:03)
[2020-10-04] MEDS: Levemir Flexpen SUBQ SCH ×2 (09:07→21:02)
[2020-10-04] MEDS: Levalbuterol Inh UD 1.25mg/0.5ml HHN PRN ×2 (09:13→19:19)
[2020-10-04] MEDS: LORazepam 1mg tab ORAL PRN ×2 (11:55→22:13)
[2020-10-04 12:00] VITALS: BP 140/70
--- NOTE | 2020-10-04 12:27 | Infectious Diseases Prog Note ---
Assessment/Plan Assessment/Plan antibiotics : remdesivir A 1. Klebsiella urinary tract infection s/p rx 2. Facial cellulitis improving 3. COPD exacerbation. 4. diabetes mellitus 5. hypertension 6. CHF 7. breast cancer 8. COVID 19 pneumonia on 15 liters O2, saturation 93 % P 1. continue remdesivir day 4 2. continue dexamethasone day 6 3. will follow up cultures Subjective ROS Limited/Unobtainable: Yes Allergies: Coded Allergies: AMOXICILLIN (Verified Allergy, Mild, RASH HIVES, 09/29/13) ERYTHROMYCIN BASE (Unverified Allergy, Unknown, 10/13/17) IODINE (Verified Allergy, Unknown, 09/29/13) PENICILLINS (Verified Allergy, Unknown, RASH HIVES, 09/29/13) Objective Last 24 Hour Vital Signs Date Time Temp Pulse Resp B/P (MAP) Pulse Ox O2 Delivery O2 Flow Rate FiO2 10/04/20 12:00 97.0 93 19 140/70 (93) 96 10/04/20 11:55 96 18 139/83 94 10/04/20 09:18 94 Non-Rebreather 15.0 100 10/04/20 09:13 96 18 95 Non-Rebreather 15.0 100 94 18 93 10/04/20 09:05 85 139/83 10/04/20 09:00 Non-Rebreather 15.0 10/04/20 08:00 97.3 100 20 145/75 (98) 94 10/04/20 04:00 97.9 81 20 137/91 (106) 95 10/04/20 02:30 92 24 97 100 10/04/20 00:14 94 21 141/103 95 10/04/20 00:14 97.3 10/03/20 23:44 94 21 141/103 95 10/03/20 21:00 Non-Rebreather 15.0 10/03/20 20:00 97.3 94 21 141/103 (116) 95 10/03/20 19:43 97 Non-Rebreather 15.0 100 10/03/20 16:00 98.4 83 22 131/70 (90) 95 10/03/20 12:33 96 22 124/67 93 Height (Feet): 5 Height (Inches): 1.00 Weight (Pounds): 210 Laboratory Tests Test 10/03/20 16:14 10/04/20 04:00 10/04/20 05:29 10/04/20 11:44 POC Whole Blood Glucose 318 MG/DL (74-106) H 148 MG/DL (74-106) H 214 MG/DL (74-106) H Sodium Level 138 MMOL/L (136-145) Potassium Level 4.3 MMOL/L (3.5-5.1) Chloride Level 98 MMOL/L (98-107) Carbon Dioxide Level 37 MMOL/L (21-32) H Anion Gap 3 mmol/L (5-15) L Blood Urea Nitrogen 16 mg/dL (7-18) Creatinine 0.8 MG/DL (0.55-1.30) Estimat Glomerular Filtration Rate > 60 mL/min (>60) Glucose Level 210 MG/DL (74-106) H Calcium Level 8.9 MG/DL (8.5-10.1) Total Bilirubin 0.3 MG/DL (0.2-1.0) Aspartate Amino Transf (AST/SGOT) 21 U/L (15-37) Alanine Aminotransferase (ALT/SGPT) 27 U/L (12-78) Alkaline Phosphatase 74 U/L (46-116) Pro-B-Type Natriuretic Peptide 135 pg/mL (0-125) H Total Protein 6.9 G/DL (6.4-8.2) Albumin 2.4 G/DL (3.4-5.0) L Globulin 4.5 g/dL Albumin/Globulin Ratio 0.5 (1.0-2.7) L Current Medications Medications (Trade) Dose Ordered Sig/Sera Route PRN Reason Start Time Stop Time Status Last Admin Dose Admin Acetaminophen (Tylenol) 650 mg Q4H PRN ORAL Mild Pain (Pain Scale 1-3) 09/18/20 23:45 10/18/20 23:44 10/04/20 11:55 Amlodipine Besylate (Norvasc) 5 mg DAILY ORAL 09/19/20 09:00 10/19/20 08:59 10/04/20 09:05 Anastrozole (Arimidex) 1 mg DAILY ORAL 09/19/20 09:00 10/19/20 08:59 10/04/20 09:05 Ascorbic Acid (Vitamin C) 500 mg TWICE A DAY ORAL 09/30/20 20:00 10/30/20 19:59 10/04/20 09:04 Budesonide/ Formoterol Fumarate (Symbicort 160/ 4.5) 2 puff BIDRT INH 10/02/20 11:00 12/31/20 10:59 10/04/20 09:07 Cetylpyridinium Chloride (Cepacol) 1 lozg EVERY 2 HOURS PRN LAURA For Cough 09/25/20 18:15 12/24/20 18:14 09/28/20 21:19 Chlorhexidine Gluconate (Brandee-Hex 2%) 1 applic DAILY@2000 TOPIC 09/30/20 20:00 12/29/20 19:59 10/03/20 19:39 Clonidine HCl (Catapres Tab) 0.1 mg Q4H PRN ORAL SBP > 160 09/19/20 17:15 12/18/20 17:14 09/24/20 03:09 Cyclobenzaprine HCl (Flexeril) 10 mg TIDPRN PRN ORAL Muscle Spasm 09/28/20 18:13 10/05/20 18:12 10/03/20 01:42 Dexamethasone (Decadron) 6 mg DAILY ORAL 09/28/20 09:00 10/07/20 08:59 10/04/20 09:04 Dextrose (Dextrose 50%) 25 ml Q30M PRN IV Hypoglycemia 10/02/20 22:00 12/31/20 21:59 Dextrose (Dextrose 50%) 50 ml Q30M PRN IV Hypoglycemia 10/02/20 22:00 12/31/20 21:59 Docusate Sodium (Colace) 250 mg DAILY ORAL 10/03/20 15:15 11/02/20 15:14 10/04/20 09:05 Enoxaparin Sodium (Lovenox) 40 mg BID SUBQ 09/30/20 20:00 12/29/20 19:59 10/04/20 09:03 Fluticasone Propionate (Flonase) 1 spray QHS NASAL 09/18/20 21:00 10/18/20 20:59 10/03/20 21:08 Furosemide (Lasix) 20 mg DAILY ORAL 09/27/20 09:00 10/27/20 08:59 10/04/20 09:04 Guaifenesin (Mucinex ER) 600 mg TWICE A DAY ORAL 09/25/20 09:00 12/24/20 08:59 10/04/20 09:04 Guaifenesin/ Codeine Phosphate (Robitussin with codeine) 10 ml Q6H PRN ORAL For Cough 10/01/20 13:15 10/27/20 18:29 10/03/20 23:44 Hydroxyzine HCl (Atarax) 50 mg Q4H PRN ORAL Itching 09/19/20 06:15 10/19/20 06:14 10/03/20 23:44 Insulin Aspart (NovoLOG) BEFORE MEALS AND HS SUBQ 10/03/20 06:30 01/01/21 06:29 10/04/20 11:54 Insulin Detemir (Levemir) 10 units BEDTIME SUBQ 10/02/20 22:00 12/31/20 21:59 10/03/20 21:07 Insulin Detemir (Levemir) 12 units DAILY SUBQ 10/04/20 09:00 01/02/21 08:59 10/04/20 09:07 Lactobacillus Acidophilus (Culturelle) 1 tab TWICE A DAY ORAL 09/25/20 18:00 12/24/20 17:59 10/04/20 09:05 Levalbuterol HCl (Xopenex) 1.25 mg TIDRT PRN HHN Shortness of Breath 09/30/20 17:45 10/05/20 17:44 10/04/20 09:13 Lorazepam (Ativan) 1 mg Q6H PRN ORAL For Anxiety 09/28/20 14:45 10/05/20 14:44 10/04/20 11:55 Magnesium Hydroxide (Mom) 30 ml DAILYPRN PRN ORAL Constipation 10/03/20 15:15 11/02/20 15:14 10/03/20 16:09 Nystatin (Nystatin) 5 ml QID ORAL 10/02/20 09:00 10/09/20 08:59 10/04/20 09:05 Ondansetron HCl (Zofran) 4 mg Q6H PRN IVP Nausea & Vomiting 09/18/20 19:00 10/18/20 18:59 10/02/20 11:53 Pantoprazole (Protonix) 40 mg DAILY ORAL 09/19/20 09:00 10/19/20 08:59 10/04/20 09:04 Potassium Chloride (K-Dur) 20 meq DAILY ORAL 09/20/20 09:00 12/19/20 08:59 10/04/20 09:04 Sertraline HCl (Zoloft) 100 mg DAILY ORAL 09/19/20 09:00 10/19/20 08:59 10/04/20 09:04 Temazepam (Restoril) 15 mg HSPRN PRN ORAL Insomnia 10/02/20 02:15 10/09/20 02:14 10/02/20 23:00 Vitamin B Complex (Vitamin B Complex) 1 tab DAILY ORAL 09/21/20 09:00 12/20/20 08:59 10/04/20 09:04 Vitamin D (Vitamin D) 1,000 unit DAILY ORAL 09/30/20 20:00 10/30/20 19:59 10/04/20 09:04 Zinc Sulfate (Zinc Sulfate) 220 mg DAILY ORAL 09/30/20 20:00 12/29/20 19:59 10/04/20 09:04 Lo Delcid MD Oct 04, 2020 12:27
[2020-10-04] MEDS: Milk of Magnesia 30ml Ud ORAL PRN ×2 (12:39→22:12)
[2020-10-04 16:00] VITALS: BP 134/75
--- NOTE | 2020-10-04 17:05 | General Progress Note ---
Subjective ROS Limited/Unobtainable: No Constitutional: Reports: malaise, weakness HEENT: Reports: no symptoms Cardiovascular: Reports: no symptoms Respiratory: Reports: cough, shortness of breath, sputum Gastrointestinal/Abdominal: Reports: no symptoms Genitourinary: Reports: no symptoms Neurologic/Psychiatric: Reports: anxiety, depressed, emotional problems Endocrine: Reports: no symptoms Hematologic/Lymphatic: Reports: no symptoms Allergies: Coded Allergies: AMOXICILLIN (Verified Allergy, Mild, RASH HIVES, 09/29/13) ERYTHROMYCIN BASE (Unverified Allergy, Unknown, 10/13/17) IODINE (Verified Allergy, Unknown, 09/29/13) PENICILLINS (Verified Allergy, Unknown, RASH HIVES, 09/29/13) All Systems: reviewed and negative except above Subjective no change. stable on nrb. no fever or chills. +sob. on remdesivir and steroids. Objective Last 24 Hour Vital Signs Date Time Temp Pulse Resp B/P (MAP) Pulse Ox O2 Delivery O2 Flow Rate FiO2 10/04/20 16:00 97.7 95 20 134/75 (94) 95 10/04/20 12:25 93 19 140/70 96 10/04/20 12:25 97.0 10/04/20 12:00 97.0 93 19 140/70 (93) 96 10/04/20 11:55 96 18 139/83 94 10/04/20 09:18 94 Non-Rebreather 15.0 100 10/04/20 09:13 96 18 95 Non-Rebreather 15.0 100 94 18 93 10/04/20 09:05 85 139/83 10/04/20 09:00 Non-Rebreather 15.0 10/04/20 08:00 97.3 100 20 145/75 (98) 94 10/04/20 04:00 97.9 81 20 137/91 (106) 95 10/04/20 02:30 92 24 97 100 10/04/20 00:14 94 21 141/103 95 10/04/20 00:14 97.3 10/03/20 23:44 94 21 141/103 95 10/03/20 21:00 Non-Rebreather 15.0 10/03/20 20:00 97.3 94 21 141/103 (116) 95 10/03/20 19:43 97 Non-Rebreather 15.0 100 Intake and Output 10/03/20 10/04/20 19:00 07:00 Intake Total 1050 ml Balance 1050 ml Intake Oral 800 ml IV Total 250 ml # Voids 4 Laboratory Tests 10/04/20 04:00: Sodium Level 138, Potassium Level 4.3, Chloride Level 98, Carbon Dioxide Level 37H, Anion Gap 3L, Blood Urea Nitrogen 16, Creatinine 0.8, Estimat Glomerular Filtration Rate > 60, Glucose Level 210H, Calcium Level 8.9, Total Bilirubin 0.3, Aspartate Amino Transf (AST/SGOT) 21, Alanine Aminotransferase (ALT/SGPT) 27, Alkaline Phosphatase 74, Pro-B-Type Natriuretic Peptide 135H, Total Protein 6.9, Albumin 2.4L, Globulin 4.5, Albumin/Globulin Ratio 0.5L 10/04/20 05:29: POC Whole Blood Glucose 148H 10/04/20 11:44: POC Whole Blood Glucose 214H 10/04/20 16:55: POC Whole Blood Glucose 324H Height (Feet): 5 Height (Inches): 1.00 Weight (Pounds): 210 Objective General Appearance: WD/WN, alert, mild distress EENT: PERRL/EOMI, normal ENT inspection Neck: non-tender, normal alignment Cardiovascular: normal peripheral pulses, normal rate, regular rhythm Respiratory/Chest: chest wall non-tender, lungs clear, no respiratory distress, no accessory muscle use, +expiratory wheezing Abdomen: normal bowel sounds, non tender, soft, no organomegaly Edema: no edema noted Arm (L), no edema noted Arm (R) 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 II-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 grossly normal, no motor/sensory deficits, alert, oriented x 3, responsive, normal mood/affect Assessment/Plan Problem List: (1) Facial cellulitis ICD Codes: L03.211 - Cellulitis of face SNOMED: 999274718 (2) COPD exacerbation ICD Codes: J44.1 - COPD exacerbation SNOMED: 620638454 (3) Toxic metabolic encephalopathy ICD Codes: G92 - Toxic encephalopathy SNOMED: 944135968 (4) Hypertension, malignant ICD Codes: I10 - Hypertension, malignant SNOMED: 60887561 (5) Diabetes mellitus ICD Codes: E11.9 - Diabetes mellitus SNOMED: 81988799 Status: stable, progressing Assessment/Plan: resp rx guaifenesin for cough increased add nystatin o2 as needed psych rx ID eval noted- on remdesivir meropenem per ID decadron monitor cxr monitor blood gases monitor bs cont bp rx dvt/stress ulcer prophylaxis Floyd Downey MD Oct 04, 2020 17:05
--- NOTE | 2020-10-04 17:55 | Psychiatric Progress Note ---
Psychiatry Progress Note Psychiatry Progress Note Subjective the pt is complaining about rns poor insight depress and anxious Medications Current Medications Medications (Trade) Dose Ordered Sig/Sera Route PRN Reason Start Time Stop Time Status Last Admin Dose Admin Acetaminophen (Tylenol) 650 mg Q4H PRN ORAL Mild Pain (Pain Scale 1-3) 09/18/20 23:45 10/18/20 23:44 10/04/20 11:55 Amlodipine Besylate (Norvasc) 5 mg DAILY ORAL 09/19/20 09:00 10/19/20 08:59 10/04/20 09:05 Anastrozole (Arimidex) 1 mg DAILY ORAL 09/19/20 09:00 10/19/20 08:59 10/04/20 09:05 Ascorbic Acid (Vitamin C) 500 mg TWICE A DAY ORAL 09/30/20 20:00 10/30/20 19:59 10/04/20 17:03 Budesonide/ Formoterol Fumarate (Symbicort 160/ 4.5) 2 puff BIDRT INH 10/02/20 11:00 12/31/20 10:59 10/04/20 09:07 Cetylpyridinium Chloride (Cepacol) 1 lozg EVERY 2 HOURS PRN LAURA For Cough 09/25/20 18:15 12/24/20 18:14 09/28/20 21:19 Chlorhexidine Gluconate (Brandee-Hex 2%) 1 applic DAILY@1999 TOPIC 09/30/20 20:00 12/29/20 19:59 10/03/20 19:39 Clonidine HCl (Catapres Tab) 0.1 mg Q4H PRN ORAL SBP > 160 09/19/20 17:15 12/18/20 17:14 09/24/20 03:09 Cyclobenzaprine HCl (Flexeril) 10 mg TIDPRN PRN ORAL Muscle Spasm 09/28/20 18:13 10/05/20 18:12 10/03/20 01:42 Dexamethasone (Decadron) 6 mg DAILY ORAL 09/28/20 09:00 10/07/20 08:59 10/04/20 09:04 Dextrose (Dextrose 50%) 25 ml Q30M PRN IV Hypoglycemia 10/02/20 22:00 12/31/20 21:59 Dextrose (Dextrose 50%) 50 ml Q30M PRN IV Hypoglycemia 10/02/20 22:00 12/31/20 21:59 Docusate Sodium (Colace) 250 mg DAILY ORAL 10/03/20 15:15 11/02/20 15:14 10/04/20 09:05 Enoxaparin Sodium (Lovenox) 40 mg BID SUBQ 09/30/20 20:00 12/29/20 19:59 10/04/20 17:04 Fluticasone Propionate (Flonase) 1 spray QHS NASAL 09/18/20 21:00 10/18/20 20:59 10/03/20 21:08 Furosemide (Lasix) 20 mg DAILY ORAL 09/27/20 09:00 10/27/20 08:59 10/04/20 09:04 Guaifenesin (Mucinex ER) 600 mg TWICE A DAY ORAL 09/25/20 09:00 12/24/20 08:59 10/04/20 17:03 Guaifenesin/ Codeine Phosphate (Robitussin with codeine) 10 ml Q6H PRN ORAL For Cough 10/01/20 13:15 10/27/20 18:29 10/03/20 23:44 Hydroxyzine HCl (Atarax) 50 mg Q4H PRN ORAL Itching 09/19/20 06:15 10/19/20 06:14 10/03/20 23:44 Insulin Aspart (NovoLOG) BEFORE MEALS AND HS SUBQ 10/03/20 06:30 01/01/21 06:29 10/04/20 16:58 Insulin Detemir (Levemir) 10 units BEDTIME SUBQ 10/02/20 22:00 12/31/20 21:59 10/03/20 21:07 Insulin Detemir (Levemir) 12 units DAILY SUBQ 10/04/20 09:00 01/02/21 08:59 10/04/20 09:07 Lactobacillus Acidophilus (Culturelle) 1 tab TWICE A DAY ORAL 09/25/20 18:00 12/24/20 17:59 10/04/20 17:03 Levalbuterol HCl (Xopenex) 1.25 mg TIDRT PRN HHN Shortness of Breath 09/30/20 17:45 10/05/20 17:44 10/04/20 09:13 Lorazepam (Ativan) 1 mg Q6H PRN ORAL For Anxiety 09/28/20 14:45 10/05/20 14:44 10/04/20 11:55 Magnesium Hydroxide (Mom) 30 ml DAILYPRN PRN ORAL Constipation 10/03/20 15:15 11/02/20 15:14 10/04/20 12:39 Nystatin (Nystatin) 5 ml QID ORAL 10/02/20 09:00 10/09/20 08:59 10/04/20 17:04 Ondansetron HCl (Zofran) 4 mg Q6H PRN IVP Nausea & Vomiting 09/18/20 19:00 10/18/20 18:59 10/04/20 17:35 Pantoprazole (Protonix) 40 mg DAILY ORAL 09/19/20 09:00 10/19/20 08:59 10/04/20 09:04 Potassium Chloride (K-Dur) 20 meq DAILY ORAL 09/20/20 09:00 12/19/20 08:59 10/04/20 09:04 Sertraline HCl (Zoloft) 100 mg DAILY ORAL 09/19/20 09:00 10/19/20 08:59 10/04/20 09:04 Temazepam (Restoril) 15 mg HSPRN PRN ORAL Insomnia 10/02/20 02:15 10/09/20 02:14 10/02/20 23:00 Vitamin B Complex (Vitamin B Complex) 1 tab DAILY ORAL 09/21/20 09:00 12/20/20 08:59 10/04/20 09:04 Vitamin D (Vitamin D) 1,000 unit DAILY ORAL 09/30/20 20:00 10/30/20 19:59 10/04/20 09:04 Zinc Sulfate (Zinc Sulfate) 220 mg DAILY ORAL 09/30/20 20:00 12/29/20 19:59 10/04/20 09:04 Neurological/Psychiatric: Reports: anxiety, depressed, emotional problems Allergies: Coded Allergies: AMOXICILLIN (Verified Allergy, Mild, RASH HIVES, 09/29/13) ERYTHROMYCIN BASE (Unverified Allergy, Unknown, 10/13/17) IODINE (Verified Allergy, Unknown, 09/29/13) PENICILLINS (Verified Allergy, Unknown, RASH HIVES, 09/29/13) Objective Data Height (Feet): 5 Height (Inches): 1.00 Weight (Pounds): 210 General Appearance: WD/WN, alert, mild distress Additional Comments: alert and oriented times self, place, and situation. Mood is anxious. Affect is blunted, congruent with mood. Thought process is concrete. Thought content, there is no suicidal or homicidal ideation. Cognition is intact. Insight and judgment is fair. Assessment/Plan [place] I: ASSESSMENT: [place] I Major depressive disorder. Anxiety disorder. [place] II borderline [place] III COPD. [place] IV Low. [place] V 50 PLAN: 1. Continue Zoloft. 2. ativan and ambien prn 3. The patient would like only melatonin. 4. Provide the patient with reality orientation and supportive therapy. Status: stable, progressing Status Narrative ASSESSMENT: [place] I Major depressive disorder. Anxiety disorder. [place] II borderline [place] III COPD. [place] IV Low. [place] V 50 PLAN: 1. Continue Zoloft. 2. ativan and ambien prn 3. The patient would like only melatonin. 4. Provide the patient with reality orientation and supportive therapy. Assessment/Plan: ASSESSMENT: [place] I Major depressive disorder. Anxiety disorder. [place] II borderline [place] III COPD. [place] IV Low. [place] V 50 PLAN: 1. Continue Zoloft. 2. ativan and ambien prn 3. The patient would like only melatonin. 4. Provide the patient with reality orientation and supportive therapy. Jayy Andino MD Oct 04, 2020 17:55
[2020-10-04] MEDS: Dyna-Hex 2% Top Sol 2oz TOPIC SCH (20:18)
[2020-10-04] MEDS: Flonase Nasal Inhaler 16gm NASAL SCH (21:01)
--- NOTE | 2020-10-04 21:27 | Pulmonology Progress Note ---
Subjective ROS Limited/Unobtainable: No Constitutional: Reports: no symptoms Gastrointestinal/Abdominal: Denies: nausea, vomiting, diarrhea Musculoskeletal: Reports: pain - in chest Allergies: Coded Allergies: AMOXICILLIN (Verified Allergy, Mild, RASH HIVES, 09/29/13) ERYTHROMYCIN BASE (Unverified Allergy, Unknown, 10/13/17) IODINE (Verified Allergy, Unknown, 09/29/13) PENICILLINS (Verified Allergy, Unknown, RASH HIVES, 09/29/13) All Systems: reviewed and negative except above Objective Last 24 Hour Vital Signs Date Time Temp Pulse Resp B/P (MAP) Pulse Ox O2 Delivery O2 Flow Rate FiO2 10/04/20 19:16 94 18 98 Non-Rebreather 15.0 100 92 18 95 10/04/20 19:15 95 Non-Rebreather 15.0 100 10/04/20 16:00 97.7 95 20 134/75 (94) 95 10/04/20 12:25 93 19 140/70 96 10/04/20 12:25 97.0 10/04/20 12:00 97.0 93 19 140/70 (93) 96 10/04/20 11:55 96 18 139/83 94 10/04/20 09:18 94 Non-Rebreather 15.0 100 10/04/20 09:13 96 18 95 Non-Rebreather 15.0 100 94 18 93 10/04/20 09:05 85 139/83 10/04/20 09:00 Non-Rebreather 15.0 10/04/20 08:00 97.3 100 20 145/75 (98) 94 10/04/20 04:00 97.9 81 20 137/91 (106) 95 10/04/20 02:30 92 24 97 100 10/04/20 00:14 94 21 141/103 95 10/04/20 00:14 97.3 10/03/20 23:44 94 21 141/103 95 Intake and Output 10/03/20 10/04/20 19:00 07:00 Intake Total 1050 ml Balance 1050 ml Intake Oral 800 ml IV Total 250 ml # Voids 4 Laboratory Tests 10/04/20 04:00: Sodium Level 138, Potassium Level 4.3, Chloride Level 98, Carbon Dioxide Level 37H, Anion Gap 3L, Blood Urea Nitrogen 16, Creatinine 0.8, Estimat Glomerular Filtration Rate > 60, Glucose Level 210H, Calcium Level 8.9, Total Bilirubin 0.3, Aspartate Amino Transf (AST/SGOT) 21, Alanine Aminotransferase (ALT/SGPT) 27, Alkaline Phosphatase 74, Pro-B-Type Natriuretic Peptide 135H, Total Protein 6.9, Albumin 2.4L, Globulin 4.5, Albumin/Globulin Ratio 0.5L 10/04/20 05:29: POC Whole Blood Glucose 148H 10/04/20 11:44: POC Whole Blood Glucose 214H 10/04/20 16:55: POC Whole Blood Glucose 324H 10/04/20 21:00: POC Whole Blood Glucose 214H Current Medications Medications (Trade) Dose Ordered Sig/Sera Route PRN Reason Start Time Stop Time Status Last Admin Dose Admin Acetaminophen (Tylenol) 650 mg Q4H PRN ORAL Mild Pain (Pain Scale 1-3) 09/18/20 23:45 10/18/20 23:44 10/04/20 11:55 Amlodipine Besylate (Norvasc) 5 mg DAILY ORAL 09/19/20 09:00 10/19/20 08:59 10/04/20 09:05 Anastrozole (Arimidex) 1 mg DAILY ORAL 09/19/20 09:00 10/19/20 08:59 10/04/20 09:05 Ascorbic Acid (Vitamin C) 500 mg TWICE A DAY ORAL 09/30/20 20:00 10/30/20 19:59 10/04/20 17:03 Budesonide/ Formoterol Fumarate (Symbicort 160/ 4.5) 2 puff BIDRT INH 10/02/20 11:00 12/31/20 10:59 10/04/20 09:07 Cetylpyridinium Chloride (Cepacol) 1 lozg EVERY 2 HOURS PRN LAURA For Cough 09/25/20 18:15 12/24/20 18:14 09/28/20 21:19 Chlorhexidine Gluconate (Brandee-Hex 2%) 1 applic DAILY@2000 TOPIC 09/30/20 20:00 12/29/20 19:59 10/04/20 20:18 Clonidine HCl (Catapres Tab) 0.1 mg Q4H PRN ORAL SBP > 160 09/19/20 17:15 12/18/20 17:14 09/24/20 03:09 Cyclobenzaprine HCl (Flexeril) 10 mg TIDPRN PRN ORAL Muscle Spasm 09/28/20 18:13 10/05/20 18:12 10/03/20 01:42 Dexamethasone (Decadron) 6 mg DAILY ORAL 09/28/20 09:00 10/07/20 08:59 10/04/20 09:04 Dextrose (Dextrose 50%) 25 ml Q30M PRN IV Hypoglycemia 10/02/20 22:00 12/31/20 21:59 Dextrose (Dextrose 50%) 50 ml Q30M PRN IV Hypoglycemia 10/02/20 22:00 12/31/20 21:59 Docusate Sodium (Colace) 250 mg DAILY ORAL 10/03/20 15:15 11/02/20 15:14 10/04/20 09:05 Enoxaparin Sodium (Lovenox) 40 mg BID SUBQ 09/30/20 20:00 12/29/20 19:59 10/04/20 17:04 Fluticasone Propionate (Flonase) 1 spray QHS NASAL 09/18/20 21:00 10/18/20 20:59 10/04/20 21:01 Furosemide (Lasix) 20 mg DAILY ORAL 09/27/20 09:00 10/27/20 08:59 10/04/20 09:04 Guaifenesin (Mucinex ER) 600 mg TWICE A DAY ORAL 09/25/20 09:00 12/24/20 08:59 10/04/20 17:03 Guaifenesin/ Codeine Phosphate (Robitussin with codeine) 10 ml Q6H PRN ORAL For Cough 10/01/20 13:15 10/27/20 18:29 10/03/20 23:44 Hydroxyzine HCl (Atarax) 50 mg Q4H PRN ORAL Itching 09/19/20 06:15 10/19/20 06:14 10/03/20 23:44 Insulin Aspart (NovoLOG) BEFORE MEALS AND HS SUBQ 10/03/20 06:30 01/01/21 06:29 10/04/20 21:03 Insulin Detemir (Levemir) 10 units BEDTIME SUBQ 10/02/20 22:00 12/31/20 21:59 10/04/20 21:02 Insulin Detemir (Levemir) 12 units DAILY SUBQ 10/04/20 09:00 01/02/21 08:59 10/04/20 09:07 Lactobacillus Acidophilus (Culturelle) 1 tab TWICE A DAY ORAL 09/25/20 18:00 12/24/20 17:59 10/04/20 17:03 Levalbuterol HCl (Xopenex) 1.25 mg TIDRT PRN HHN Shortness of Breath 09/30/20 17:45 10/05/20 17:44 10/04/20 19:19 Lorazepam (Ativan) 1 mg Q6H PRN ORAL For Anxiety 09/28/20 14:45 10/05/20 14:44 10/04/20 11:55 Magnesium Hydroxide (Mom) 30 ml DAILYPRN PRN ORAL Constipation 10/03/20 15:15 11/02/20 15:14 10/04/20 12:39 Nystatin (Nystatin) 5 ml QID ORAL 10/02/20 09:00 10/09/20 08:59 10/04/20 20:18 Ondansetron HCl (Zofran) 4 mg Q6H PRN IVP Nausea & Vomiting 09/18/20 19:00 10/18/20 18:59 10/04/20 17:35 Pantoprazole (Protonix) 40 mg DAILY ORAL 09/19/20 09:00 10/19/20 08:59 10/04/20 09:04 Potassium Chloride (K-Dur) 20 meq DAILY ORAL 09/20/20 09:00 12/19/20 08:59 10/04/20 09:04 Sertraline HCl (Zoloft) 100 mg DAILY ORAL 09/19/20 09:00 10/19/20 08:59 10/04/20 09:04 Temazepam (Restoril) 15 mg HSPRN PRN ORAL Insomnia 10/02/20 02:15 10/09/20 02:14 10/02/20 23:00 Vitamin B Complex (Vitamin B Complex) 1 tab DAILY ORAL 09/21/20 09:00 12/20/20 08:59 10/04/20 09:04 Vitamin D (Vitamin D) 1,000 unit DAILY ORAL 09/30/20 20:00 10/30/20 19:59 10/04/20 09:04 Zinc Sulfate (Zinc Sulfate) 220 mg DAILY ORAL 09/30/20 20:00 12/29/20 19:59 10/04/20 09:04 Assessment/Plan Assessment/Plan Pulmonary Progress Note Subjective ROS Limited/Unobtainable: No Constitutional: Denies: fever, chills Gastrointestinal/Abdominal: Denies: nausea, vomiting, diarrhea Musculoskeletal: Reports: pain - in chest Allergies: Coded Allergies: AMOXICILLIN (Verified Allergy, Mild, RASH HIVES, 09/29/13) ERYTHROMYCIN BASE (Unverified Allergy, Unknown, 10/13/17) IODINE (Verified Allergy, Unknown, 09/29/13) PENICILLINS (Verified Allergy, Unknown, RASH HIVES, 09/29/13) All Systems: reviewed and negative except above Subjective care noted noted congestion and sputum + COVID and on isolation remains on high FIO2 Objective Vital Signs noted Deferred Covid19 Laboratory Tests noted Medications noted Assessment/Plan Assessment/Plan ASSESSMENT: Chronic respiratory failure COPD exacerbation and facial cellulitis. diabetes, hypertension, chronic hypoxemia chronic debility, pulmonary congestion, COVID+ PLAN: remdesivir and decadron ertapenem sputum culture monitor imaging intensify antibiotics per ID respiratory care as is home meds supportive care oxygen therapy and monitor prognosis guarded impression, plan, and exam edited and reviewed in detail care discussed with Werner Hussein MD Oct 04, 2020 21:27
[2020-10-04] MEDS: guaiFENesin w/Codeine 5ml Liq ud ORAL PRN (22:12)
[2020-10-05] VITALS (7 sets, daily range): BP systolic 109–144; BP diastolic 62–91
--- NOTE | 2020-10-05 01:59 | Cardiology Progress Note ---
Subjective DATE OF SERVICE: Oct 04, 2020 She still has congestion and pleuritic CP. Remains significantly hypoxic on 15L high flow mask. Glucose elevated - on steroids Covid 19 swab negative on admit; repeat PCR positive. CXR (09/28) Worsening infiltrates bilaterally with left eff'n Objective Last 24 Hour Vital Signs Date Time Temp Pulse Resp B/P (MAP) Pulse Ox O2 Delivery O2 Flow Rate FiO2 10/05/20 00:12 98.4 82 21 115/65 (82) 96 10/04/20 22:13 94 18 134/75 98 10/04/20 21:00 Non-Rebreather 15.0 10/04/20 19:16 94 18 98 Non-Rebreather 15.0 100 92 18 95 10/04/20 19:15 95 Non-Rebreather 15.0 100 10/04/20 16:00 97.7 95 20 134/75 (94) 95 10/04/20 12:25 93 19 140/70 96 10/04/20 12:25 97.0 10/04/20 12:00 97.0 93 19 140/70 (93) 96 10/04/20 11:55 96 18 139/83 94 10/04/20 09:18 94 Non-Rebreather 15.0 100 10/04/20 09:13 96 18 95 Non-Rebreather 15.0 100 94 18 93 10/04/20 09:05 85 139/83 10/04/20 09:00 Non-Rebreather 15.0 10/04/20 08:00 97.3 100 20 145/75 (98) 94 10/04/20 04:00 97.9 81 20 137/91 (106) 95 10/04/20 02:30 92 24 97 100 ROS: unchanged from 09/18/20 HEENT: normal ENT inspection RHYTHM: NSR, ST, PACs LUNGS: bilateral rhonchi, coarse breath sounds CARDIAC: normal rate, regular rhythm, normal S1 and S2, gallop/S4 ABDOMEN: normal bowel sounds, non tender, soft, no organomegaly, other - obese EXTREMITIES: +1 edema Laboratory Tests Test 10/04/20 04:00 10/04/20 05:29 10/04/20 11:44 10/04/20 16:55 Sodium Level 138 MMOL/L (136-145) Potassium Level 4.3 MMOL/L (3.5-5.1) Chloride Level 98 MMOL/L (98-107) Carbon Dioxide Level 37 MMOL/L (21-32) H Anion Gap 3 mmol/L (5-15) L Blood Urea Nitrogen 16 mg/dL (7-18) Creatinine 0.8 MG/DL (0.55-1.30) Estimat Glomerular Filtration Rate > 60 mL/min (>60) Glucose Level 210 MG/DL (74-106) H Calcium Level 8.9 MG/DL (8.5-10.1) Total Bilirubin 0.3 MG/DL (0.2-1.0) Aspartate Amino Transf (AST/SGOT) 21 U/L (15-37) Alanine Aminotransferase (ALT/SGPT) 27 U/L (12-78) Alkaline Phosphatase 74 U/L (46-116) Pro-B-Type Natriuretic Peptide 135 pg/mL (0-125) H Total Protein 6.9 G/DL (6.4-8.2) Albumin 2.4 G/DL (3.4-5.0) L Globulin 4.5 g/dL Albumin/Globulin Ratio 0.5 (1.0-2.7) L POC Whole Blood Glucose 148 MG/DL (74-106) H 214 MG/DL (74-106) H 324 MG/DL (74-106) H Test 10/04/20 21:00 POC Whole Blood Glucose 214 MG/DL (74-106) H Assessment/Plan Assessment/Plan COVID19 pneumonia COPD exacerbation Hypoxia Acute bronchitis worsening. Ac/chr diastolic CHF with decreasing BNP now - clinically compensated. 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 O2 suppl and bronchodilator rx Anti-coagulation Diuresis based on clinical parameters; trend BNP as needed. Titrate antiHTN regimen as needed. PT/OT Insulin coverage with ongoing levemir titration. Bowel regimen Werner Martinez MD Oct 05, 2020 01:59
[2020-10-05] MEDS: NovoLOG Insulin Flexpen SUBQ SCH ×4 (05:37→21:00)
[2020-10-05 07:32] LABS: ALANINE AMINOTRANSFERASE 21 U/L (12-78); ALBUMIN/GLOBULIN RATIO 0.5 (1.0-2.7); ALKALINE PHOSPHATASE 65 U/L (46-116); ANION GAP 1 mmol/L (5-15); ASPARTATE AMINO TRANSFERASE 16 U/L (15-37); BILIRUBIN,TOTAL 0.2 MG/DL (0.2-1.0); BLOOD UREA NITROGEN 16 mg/dL (7-18); CALCIUM 8.2 MG/DL (8.5-10.1); CARBON DIOXIDE 38 MMOL/L (21-32); CHLORIDE 99 MMOL/L (98-107); CREATININE 0.8 MG/DL (0.55-1.30); POTASSIUM 3.7 MMOL/L (3.5-5.1); SODIUM 138 MMOL/L (136-145)
[2020-10-05 08:10] LABS: BASOPHILS % (AUTO) 0.7 % (0.0-2.0); EOSINOPHILS % (AUTO) 0.1 % (0.0-3.0); HEMATOCRIT 29.5 % (37.0-47.0); LYMPHOCYTES % (AUTO) 20.3 % (20.0-45.0); MEAN CORPUSCULAR VOLUME 93 FL (80-99); MONOCYTES % (AUTO) 8.5 % (1.0-10.0); NEUTROPHILS % (AUTO) 70.4 % (45.0-75.0); PLATELET COUNT 237 K/UL (150-450); RED BLOOD COUNT 3.17 M/UL (4.20-5.40); RED CELL DISTRIBUTION WIDTH 12.3 % (11.6-14.8); WHITE BLOOD COUNT 10.2 K/UL (4.8-10.8)
[2020-10-05] MEDS: Levemir Flexpen SUBQ SCH ×2 (08:14→21:00)
[2020-10-05] MEDS: Enoxaparin 40mg Inj SUBQ SCH ×2 (08:15→17:11)
[2020-10-05] MEDS: Nystatin Susp 500,000 units/5ml ORAL SCH ×4 (08:16→22:21)
[2020-10-05] MEDS: Sertraline 100mg tab ORAL SCH (08:16)
[2020-10-05] MEDS: guaiFENesin ER 600mg tab ORAL SCH ×2 (08:16→17:09)
[2020-10-05] MEDS: Zinc Sulfate 220mg ORAL SCH (08:17)
[2020-10-05] MEDS: Anastrazole 1mg tab ORAL SCH (08:17)
[2020-10-05] MEDS: Ascorbic Acid 500mg tab ORAL SCH ×2 (08:17→17:09)
[2020-10-05] MEDS: Vitamin B Complex Tab ORAL SCH (08:17)
[2020-10-05] MEDS: Docusate 250mg cap ORAL SCH (08:17)
[2020-10-05] MEDS: Lactobacillus-GG tablet ORAL SCH ×2 (08:17→17:09)
[2020-10-05] MEDS: Vitamin D 1000 units Tab ORAL SCH (08:18)
[2020-10-05] MEDS: LORazepam 1mg tab ORAL PRN ×3 (09:27→23:55)
[2020-10-05] MEDS: Levalbuterol Inh UD 1.25mg/0.5ml HHN PRN (10:15)
--- NOTE | 2020-10-05 13:29 | General Progress Note ---
Subjective ROS Limited/Unobtainable: No Constitutional: Reports: malaise, weakness HEENT: Reports: no symptoms Cardiovascular: Reports: no symptoms Respiratory: Reports: cough, shortness of breath Gastrointestinal/Abdominal: Reports: no symptoms Genitourinary: Reports: no symptoms Neurologic/Psychiatric: Reports: no symptoms Endocrine: Reports: no symptoms Hematologic/Lymphatic: Reports: no symptoms Allergies: Coded Allergies: AMOXICILLIN (Verified Allergy, Mild, RASH HIVES, 09/29/13) ERYTHROMYCIN BASE (Unverified Allergy, Unknown, 10/13/17) IODINE (Verified Allergy, Unknown, 09/29/13) PENICILLINS (Verified Allergy, Unknown, RASH HIVES, 09/29/13) All Systems: reviewed and negative except above Subjective no change. stable on nrb. no fever or chills. +sob. on remdesivir and steroids. Objective Last 24 Hour Vital Signs Date Time Temp Pulse Resp B/P (MAP) Pulse Ox O2 Delivery O2 Flow Rate FiO2 10/05/20 12:00 98.1 81 18 137/73 (94) 99 10/05/20 10:16 95 18 98 Non-Rebreather 15.0 100 93 18 95 10/05/20 10:16 95 Non-Rebreather 15.0 100 10/05/20 09:57 90 18 135/83 95 10/05/20 09:27 95 20 145/90 100 10/05/20 09:00 Non-Rebreather 15.0 10/05/20 08:16 95 145/90 10/05/20 08:00 97.6 90 18 140/90 (107) 99 10/05/20 06:47 97.3 93 20 144/91 (108) 100 10/05/20 04:00 97.9 81 20 140/91 (107) 95 10/05/20 01:22 94 28 95 100 10/05/20 00:12 98.4 82 21 115/65 (82) 96 10/04/20 22:43 81 20 140/91 95 10/04/20 22:42 97.9 10/04/20 22:13 94 18 134/75 98 10/04/20 21:00 Non-Rebreather 15.0 10/04/20 19:16 94 18 98 Non-Rebreather 15.0 100 92 18 95 10/04/20 19:15 95 Non-Rebreather 15.0 100 10/04/20 16:00 97.7 95 20 134/75 (94) 95 Intake and Output 10/04/20 10/05/20 19:00 07:00 Intake Total 900 ml Output Total 1800 ml Balance -900 ml Intake Oral 900 ml Output Urine Total 1800 ml # Voids 4 3 # Bowel Movements 3 1 Laboratory Tests 10/04/20 16:55: POC Whole Blood Glucose 324H 10/04/20 21:00: POC Whole Blood Glucose 214H 10/05/20 05:23: POC Whole Blood Glucose 245H 10/05/20 06:00: White Blood Count 10.2, Red Blood Count 3.17L, Hemoglobin 9.0L, Hematocrit 29.5L , Mean Corpuscular Volume 93, Mean Corpuscular Hemoglobin 28.3, Mean Corpuscular Hemoglobin Concent 30.4L, Red Cell Distribution Width 12.3, Platelet Count 237, Mean Platelet Volume 7.8, Neutrophils (%) (Auto) 70.4, Lymphocytes (%) (Auto) 20.3, Monocytes (%) (Auto) 8.5, Eosinophils (%) (Auto) 0.1, Basophils (%) (Auto) 0.7, Sodium Level 138, Potassium Level 3.7, Chloride Level 99, Carbon Dioxide Level 38H, Anion Gap 1L, Blood Urea Nitrogen 16, Creatinine 0.8, Estimat Glomerular Filtration Rate > 60, Glucose Level 304H, Calcium Level 8.2L, Magnesium Level 2.2, Total Bilirubin 0.2, Aspartate Amino Transf (AST/SGOT) 16, Alanine Aminotransferase (ALT/SGPT) 21, Alkaline Phosphatase 65, Pro-B-Type Natriuretic Peptide 76, Total Protein 5.9L, Albumin 2.0L, Globulin 3.9, Albumin/Globulin Ratio 0.5L Height (Feet): 5 Height (Inches): 1.00 Weight (Pounds): 210 Objective General Appearance: WD/WN, alert, mild distress EENT: PERRL/EOMI, normal ENT inspection Neck: non-tender, normal alignment Cardiovascular: normal peripheral pulses, normal rate, regular rhythm Respiratory/Chest: chest wall non-tender, lungs clear, no respiratory distress, no accessory muscle use, +expiratory wheezing Abdomen: normal bowel sounds, non tender, soft, no organomegaly Edema: no edema noted Arm (L), no edema noted Arm (R) 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, no motor/sensory deficits, alert, oriented x 3, responsive, normal mood/affect Assessment/Plan Problem List: (1) Facial cellulitis ICD Codes: L03.211 - Cellulitis of face SNOMED: 360849075 (2) COPD exacerbation ICD Codes: J44.1 - COPD exacerbation SNOMED: 906102693 (3) Toxic metabolic encephalopathy ICD Codes: G92 - Toxic encephalopathy SNOMED: 328390628 (4) Hypertension, malignant ICD Codes: I10 - Hypertension, malignant SNOMED: 87118240 (5) Diabetes mellitus ICD Codes: E11.9 - Diabetes mellitus SNOMED: 62052038 Status: stable, progressing Assessment/Plan: resp rx guaifenesin for cough increased add nystatin o2 as needed psych rx ID eval noted- on remdesivir meropenem per ID decadron monitor cxr monitor blood gases monitor bs cont bp rx dvt/stress ulcer prophylaxis Floyd Downey MD Oct 05, 2020 13:29
--- NOTE | 2020-10-05 17:59 | Cardiology Progress Note ---
Subjective DATE OF SERVICE: Oct 05, 2020 She still has congestion and pleuritic CP. Remains significantly hypoxic on 15L high flow mask. Glucose elevated - on steroids Covid 19 swab negative on admit; repeat PCR positive. CXR (10/02) No change; infiltrates bilaterally with left eff'n Objective Last 24 Hour Vital Signs Date Time Temp Pulse Resp B/P (MAP) Pulse Ox O2 Delivery O2 Flow Rate FiO2 10/05/20 16:00 97.5 79 18 132/72 (92) 100 10/05/20 12:00 98.1 81 18 137/73 (94) 99 10/05/20 10:16 95 18 98 Non-Rebreather 15.0 100 93 18 95 10/05/20 10:16 95 Non-Rebreather 15.0 100 10/05/20 09:57 90 18 135/83 95 10/05/20 09:27 95 20 145/90 100 10/05/20 09:00 Non-Rebreather 15.0 10/05/20 08:16 95 145/90 10/05/20 08:00 97.6 90 18 140/90 (107) 99 10/05/20 06:47 97.3 93 20 144/91 (108) 100 10/05/20 04:00 97.9 81 20 140/91 (107) 95 10/05/20 01:22 94 28 95 100 10/05/20 00:12 98.4 82 21 115/65 (82) 96 10/04/20 22:43 81 20 140/91 95 10/04/20 22:42 97.9 10/04/20 22:13 94 18 134/75 98 10/04/20 21:00 Non-Rebreather 15.0 10/04/20 19:16 94 18 98 Non-Rebreather 15.0 100 92 18 95 10/04/20 19:15 95 Non-Rebreather 15.0 100 ROS: unchanged from 09/18/20 HEENT: normal ENT inspection RHYTHM: NSR, ST, PACs LUNGS: bilateral rhonchi, coarse breath sounds CARDIAC: normal rate, regular rhythm, normal S1 and S2, gallop/S4 ABDOMEN: normal bowel sounds, non tender, soft, no organomegaly, other - obese EXTREMITIES: +1 edema Laboratory Tests Test 10/04/20 21:00 10/05/20 05:23 10/05/20 06:00 POC Whole Blood Glucose 214 MG/DL (74-106) H 245 MG/DL (74-106) H White Blood Count 10.2 K/UL (4.8-10.8) Red Blood Count 3.17 M/UL (4.20-5.40) L Hemoglobin 9.0 G/DL (12.0-16.0) L Hematocrit 29.5 % (37.0-47.0) L Mean Corpuscular Volume 93 FL (80-99) Mean Corpuscular Hemoglobin 28.3 PG (27.0-31.0) Mean Corpuscular Hemoglobin Concent 30.4 G/DL (32.0-36.0) L Red Cell Distribution Width 12.3 % (11.6-14.8) Platelet Count 237 K/UL (150-450) Mean Platelet Volume 7.8 FL (6.5-10.1) Neutrophils (%) (Auto) 70.4 % (45.0-75.0) Lymphocytes (%) (Auto) 20.3 % (20.0-45.0) Monocytes (%) (Auto) 8.5 % (1.0-10.0) Eosinophils (%) (Auto) 0.1 % (0.0-3.0) Basophils (%) (Auto) 0.7 % (0.0-2.0) Sodium Level 138 MMOL/L (136-145) Potassium Level 3.7 MMOL/L (3.5-5.1) Chloride Level 99 MMOL/L (98-107) Carbon Dioxide Level 38 MMOL/L (21-32) H Anion Gap 1 mmol/L (5-15) L Blood Urea Nitrogen 16 mg/dL (7-18) Creatinine 0.8 MG/DL (0.55-1.30) Estimat Glomerular Filtration Rate > 60 mL/min (>60) Glucose Level 304 MG/DL (74-106) H Calcium Level 8.2 MG/DL (8.5-10.1) L Magnesium Level 2.2 MG/DL (1.8-2.4) Total Bilirubin 0.2 MG/DL (0.2-1.0) Aspartate Amino Transf (AST/SGOT) 16 U/L (15-37) Alanine Aminotransferase (ALT/SGPT) 21 U/L (12-78) Alkaline Phosphatase 65 U/L (46-116) Pro-B-Type Natriuretic Peptide 76 pg/mL (0-125) Total Protein 5.9 G/DL (6.4-8.2) L Albumin 2.0 G/DL (3.4-5.0) L Globulin 3.9 g/dL Albumin/Globulin Ratio 0.5 (1.0-2.7) L Assessment/Plan Assessment/Plan COVID19 pneumonia COPD exacerbation Hypoxia Acute bronchitis worsening. Ac/chr diastolic CHF with decreasing BNP now - clinically compensated. BNP decreased to 76. 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 O2 suppl and bronchodilator rx Anti-coagulation Hold duretic based on current clinical parameters; trend BNP as needed. Titrate antiHTN regimen as needed. Insulin coverage with additional levemir titration. Bowel regimen Werner Martinez MD Oct 05, 2020 17:59
--- NOTE | 2020-10-05 21:58 | Pulmonology Progress Note ---
Subjective ROS Limited/Unobtainable: No Constitutional: Reports: no symptoms Gastrointestinal/Abdominal: Denies: nausea, vomiting, diarrhea Musculoskeletal: Reports: pain - in chest Allergies: Coded Allergies: AMOXICILLIN (Verified Allergy, Mild, RASH HIVES, 09/29/13) ERYTHROMYCIN BASE (Unverified Allergy, Unknown, 10/13/17) IODINE (Verified Allergy, Unknown, 09/29/13) PENICILLINS (Verified Allergy, Unknown, RASH HIVES, 09/29/13) All Systems: reviewed and negative except above Objective Last 24 Hour Vital Signs Date Time Temp Pulse Resp B/P (MAP) Pulse Ox O2 Delivery O2 Flow Rate FiO2 10/05/20 20:00 98.6 101 20 109/62 (78) 94 10/05/20 18:33 82 19 129/69 100 10/05/20 18:03 79 18 132/72 100 10/05/20 16:00 97.5 79 18 132/72 (92) 100 10/05/20 12:00 98.1 81 18 137/73 (94) 99 10/05/20 10:16 95 18 98 Non-Rebreather 15.0 100 93 18 95 10/05/20 10:16 95 Non-Rebreather 15.0 100 10/05/20 09:57 90 18 135/83 95 10/05/20 09:27 95 20 145/90 100 10/05/20 09:00 Non-Rebreather 15.0 10/05/20 08:16 95 145/90 10/05/20 08:00 97.6 90 18 140/90 (107) 99 10/05/20 06:47 97.3 93 20 144/91 (108) 100 10/05/20 04:00 97.9 81 20 140/91 (107) 95 10/05/20 01:22 94 28 95 100 10/05/20 00:12 98.4 82 21 115/65 (82) 96 10/04/20 22:43 81 20 140/91 95 10/04/20 22:42 97.9 10/04/20 22:13 94 18 134/75 98 Intake and Output 10/04/20 10/05/20 19:00 07:00 Intake Total 900 ml Output Total 1800 ml Balance -900 ml Intake Oral 900 ml Output Urine Total 1800 ml # Voids 4 3 # Bowel Movements 3 1 Laboratory Tests 10/05/20 05:23: POC Whole Blood Glucose 245H 10/05/20 06:00: White Blood Count 10.2, Red Blood Count 3.17L, Hemoglobin 9.0L, Hematocrit 29.5L , Mean Corpuscular Volume 93, Mean Corpuscular Hemoglobin 28.3, Mean Corpuscular Hemoglobin Concent 30.4L, Red Cell Distribution Width 12.3, Platelet Count 237, Mean Platelet Volume 7.8, Neutrophils (%) (Auto) 70.4, Lymphocytes (%) (Auto) 20.3, Monocytes (%) (Auto) 8.5, Eosinophils (%) (Auto) 0.1, Basophils (%) (Auto) 0.7, Sodium Level 138, Potassium Level 3.7, Chloride Level 99, Carbon Dioxide Level 38H, Anion Gap 1L, Blood Urea Nitrogen 16, Creatinine 0.8, Estimat Glomerular Filtration Rate > 60, Glucose Level 304H, Calcium Level 8.2L, Magnesium Level 2.2, Total Bilirubin 0.2, Aspartate Amino Transf (AST/SGOT) 16, Alanine Aminotransferase (ALT/SGPT) 21, Alkaline Phosphatase 65, Pro-B-Type Natriuretic Peptide 76, Total Protein 5.9L, Albumin 2.0L, Globulin 3.9, Albumin/Globulin Ratio 0.5L Current Medications Medications (Trade) Dose Ordered Sig/Sera Route PRN Reason Start Time Stop Time Status Last Admin Dose Admin Acetaminophen (Tylenol) 650 mg Q4H PRN ORAL Mild Pain (Pain Scale 1-3) 09/18/20 23:45 10/18/20 23:44 10/05/20 18:03 Amlodipine Besylate (Norvasc) 5 mg DAILY ORAL 09/19/20 09:00 10/19/20 08:59 10/05/20 08:16 Anastrozole (Arimidex) 1 mg DAILY ORAL 09/19/20 09:00 10/19/20 08:59 10/05/20 08:17 Ascorbic Acid (Vitamin C) 500 mg TWICE A DAY ORAL 09/30/20 20:00 10/30/20 19:59 10/05/20 17:09 Budesonide/ Formoterol Fumarate (Symbicort 160/ 4.5) 2 puff BIDRT INH 10/02/20 11:00 12/31/20 10:59 10/05/20 09:07 Cetylpyridinium Chloride (Cepacol) 1 lozg EVERY 2 HOURS PRN LAURA For Cough 09/25/20 18:15 12/24/20 18:14 09/28/20 21:19 Chlorhexidine Gluconate (Brandee-Hex 2%) 1 applic DAILY@2000 TOPIC 09/30/20 20:00 12/29/20 19:59 10/04/20 20:18 Clonidine HCl (Catapres Tab) 0.1 mg Q4H PRN ORAL SBP > 160 09/19/20 17:15 12/18/20 17:14 09/24/20 03:09 Dexamethasone (Decadron) 6 mg DAILY ORAL 09/28/20 09:00 10/07/20 08:59 10/05/20 08:16 Dextrose (Dextrose 50%) 25 ml Q30M PRN IV Hypoglycemia 10/02/20 22:00 12/31/20 21:59 Dextrose (Dextrose 50%) 50 ml Q30M PRN IV Hypoglycemia 10/02/20 22:00 12/31/20 21:59 Docusate Sodium (Colace) 250 mg DAILY ORAL 10/03/20 15:15 11/02/20 15:14 10/05/20 08:17 Enoxaparin Sodium (Lovenox) 40 mg BID SUBQ 09/30/20 20:00 12/29/20 19:59 10/05/20 17:11 Fluticasone Propionate (Flonase) 1 spray QHS NASAL 09/18/20 21:00 10/18/20 20:59 10/04/20 21:01 Guaifenesin (Mucinex ER) 600 mg TWICE A DAY ORAL 09/25/20 09:00 12/24/20 08:59 10/05/20 17:09 Guaifenesin/ Codeine Phosphate (Robitussin with codeine) 10 ml Q6H PRN ORAL For Cough 10/01/20 13:15 10/27/20 18:29 10/04/20 22:12 Hydroxyzine HCl (Atarax) 50 mg Q4H PRN ORAL Itching 09/19/20 06:15 10/19/20 06:14 10/03/20 23:44 Insulin Aspart (NovoLOG) BEFORE MEALS AND HS SUBQ 10/03/20 06:30 01/01/21 06:29 10/05/20 17:09 Insulin Detemir (Levemir) 10 units BEDTIME SUBQ 10/02/20 22:00 12/31/20 21:59 10/04/20 21:02 Insulin Detemir (Levemir) 15 units DAILY SUBQ 10/06/20 09:00 01/04/21 08:59 Lactobacillus Acidophilus (Culturelle) 1 tab TWICE A DAY ORAL 09/25/20 18:00 12/24/20 17:59 10/05/20 17:09 Lorazepam (Ativan) 1 mg Q6H PRN ORAL For Anxiety 10/05/20 18:00 10/12/20 17:59 10/05/20 18:03 Magnesium Hydroxide (Mom) 30 ml DAILYPRN PRN ORAL Constipation 10/03/20 15:15 11/02/20 15:14 10/04/20 22:12 Nystatin (Nystatin) 5 ml QID ORAL 10/02/20 09:00 10/09/20 08:59 10/05/20 17:09 Ondansetron HCl (Zofran) 4 mg Q6H PRN IVP Nausea & Vomiting 09/18/20 19:00 10/18/20 18:59 10/05/20 18:03 Pantoprazole (Protonix) 40 mg DAILY ORAL 09/19/20 09:00 10/19/20 08:59 10/05/20 08:16 Potassium Chloride (K-Dur) 20 meq DAILY ORAL 09/20/20 09:00 10/07/20 08:59 10/05/20 08:16 Sertraline HCl (Zoloft) 100 mg DAILY ORAL 09/19/20 09:00 10/19/20 08:59 10/05/20 08:16 Temazepam (Restoril) 15 mg HSPRN PRN ORAL Insomnia 10/02/20 02:15 10/09/20 02:14 10/04/20 22:16 Vitamin B Complex (Vitamin B Complex) 1 tab DAILY ORAL 09/21/20 09:00 12/20/20 08:59 10/05/20 08:17 Vitamin D (Vitamin D) 1,000 unit DAILY ORAL 09/30/20 20:00 10/30/20 19:59 10/05/20 08:18 Zinc Sulfate (Zinc Sulfate) 220 mg DAILY ORAL 09/30/20 20:00 12/29/20 19:59 10/05/20 08:17 Assessment/Plan Assessment/Plan Pulmonary Progress Note Subjective ROS Limited/Unobtainable: No Constitutional: Denies: fever, chills Gastrointestinal/Abdominal: Denies: nausea, vomiting, diarrhea Musculoskeletal: Reports: pain - in chest Allergies: Coded Allergies: AMOXICILLIN (Verified Allergy, Mild, RASH HIVES, 09/29/13) ERYTHROMYCIN BASE (Unverified Allergy, Unknown, 10/13/17) IODINE (Verified Allergy, Unknown, 09/29/13) PENICILLINS (Verified Allergy, Unknown, RASH HIVES, 09/29/13) All Systems: reviewed and negative except above Subjective care noted noted congestion and sputum + COVID and on isolation remains on high FIO2 Objective Vital Signs noted Deferred Covid19 Laboratory Tests noted Medications noted Assessment/Plan Assessment/Plan ASSESSMENT: Chronic respiratory failure COPD exacerbation and facial cellulitis. diabetes, hypertension, chronic hypoxemia chronic debility, pulmonary congestion, COVID+ PLAN: remdesivir and decadron ertapenem sputum culture monitor imaging intensify antibiotics per ID respiratory care as is home meds supportive care oxygen therapy and monitor prognosis guarded impression, plan, and exam edited and reviewed in detail care discussed with Werner Hussein MD Oct 05, 2020 21:58
[2020-10-05] MEDS: Dyna-Hex 2% Top Sol 2oz TOPIC SCH (22:20)
[2020-10-05] MEDS: Flonase Nasal Inhaler 16gm NASAL SCH (22:22)
--- NOTE | 2020-10-05 23:37 | Psychiatric Progress Note ---
Psychiatry Progress Note Psychiatry Progress Note Subjective the pt is complaining about rns poor insight depress and anxious Medications Current Medications Medications (Trade) Dose Ordered Sig/Sera Route PRN Reason Start Time Stop Time Status Last Admin Dose Admin Acetaminophen (Tylenol) 650 mg Q4H PRN ORAL Mild Pain (Pain Scale 1-3) 09/18/20 23:45 10/18/20 23:44 10/05/20 18:03 Amlodipine Besylate (Norvasc) 5 mg DAILY ORAL 09/19/20 09:00 10/19/20 08:59 10/05/20 08:16 Anastrozole (Arimidex) 1 mg DAILY ORAL 09/19/20 09:00 10/19/20 08:59 10/05/20 08:17 Ascorbic Acid (Vitamin C) 500 mg TWICE A DAY ORAL 09/30/20 20:00 10/30/20 19:59 10/05/20 17:09 Budesonide/ Formoterol Fumarate (Symbicort 160/ 4.5) 2 puff BIDRT INH 10/02/20 11:00 12/31/20 10:59 10/05/20 22:21 Cetylpyridinium Chloride (Cepacol) 1 lozg EVERY 2 HOURS PRN LAURA For Cough 09/25/20 18:15 12/24/20 18:14 09/28/20 21:19 Chlorhexidine Gluconate (Brandee-Hex 2%) 1 applic DAILY@1999 TOPIC 09/30/20 20:00 12/29/20 19:59 10/05/20 22:20 Clonidine HCl (Catapres Tab) 0.1 mg Q4H PRN ORAL SBP > 160 09/19/20 17:15 12/18/20 17:14 09/24/20 03:09 Dexamethasone (Decadron) 6 mg DAILY ORAL 09/28/20 09:00 10/07/20 08:59 10/05/20 08:16 Dextrose (Dextrose 50%) 25 ml Q30M PRN IV Hypoglycemia 10/02/20 22:00 12/31/20 21:59 Dextrose (Dextrose 50%) 50 ml Q30M PRN IV Hypoglycemia 10/02/20 22:00 12/31/20 21:59 Docusate Sodium (Colace) 250 mg DAILY ORAL 10/03/20 15:15 11/02/20 15:14 10/05/20 08:17 Enoxaparin Sodium (Lovenox) 40 mg BID SUBQ 09/30/20 20:00 12/29/20 19:59 10/05/20 17:11 Fluticasone Propionate (Flonase) 1 spray QHS NASAL 09/18/20 21:00 10/18/20 20:59 10/05/20 22:22 Guaifenesin (Mucinex ER) 600 mg TWICE A DAY ORAL 09/25/20 09:00 12/24/20 08:59 10/05/20 17:09 Guaifenesin/ Codeine Phosphate (Robitussin with codeine) 10 ml Q6H PRN ORAL For Cough 10/01/20 13:15 10/27/20 18:29 10/04/20 22:12 Hydroxyzine HCl (Atarax) 50 mg Q4H PRN ORAL Itching 09/19/20 06:15 10/19/20 06:14 10/03/20 23:44 Insulin Aspart (NovoLOG) BEFORE MEALS AND HS SUBQ 10/03/20 06:30 01/01/21 06:29 10/05/20 21:00 Insulin Detemir (Levemir) 10 units BEDTIME SUBQ 10/02/20 22:00 12/31/20 21:59 10/05/20 21:00 Insulin Detemir (Levemir) 15 units DAILY SUBQ 10/06/20 09:00 01/04/21 08:59 Lactobacillus Acidophilus (Culturelle) 1 tab TWICE A DAY ORAL 09/25/20 18:00 12/24/20 17:59 10/05/20 17:09 Lorazepam (Ativan) 1 mg Q6H PRN ORAL For Anxiety 10/05/20 18:00 10/12/20 17:59 10/05/20 18:03 Magnesium Hydroxide (Mom) 30 ml DAILYPRN PRN ORAL Constipation 10/03/20 15:15 11/02/20 15:14 10/04/20 22:12 Nystatin (Nystatin) 5 ml QID ORAL 10/02/20 09:00 10/09/20 08:59 10/05/20 22:21 Ondansetron HCl (Zofran) 4 mg Q6H PRN IVP Nausea & Vomiting 09/18/20 19:00 10/18/20 18:59 10/05/20 18:03 Pantoprazole (Protonix) 40 mg DAILY ORAL 09/19/20 09:00 10/19/20 08:59 10/05/20 08:16 Potassium Chloride (K-Dur) 20 meq DAILY ORAL 09/20/20 09:00 10/07/20 08:59 10/05/20 08:16 Sertraline HCl (Zoloft) 100 mg DAILY ORAL 09/19/20 09:00 10/19/20 08:59 10/05/20 08:16 Temazepam (Restoril) 15 mg HSPRN PRN ORAL Insomnia 10/02/20 02:15 10/09/20 02:14 10/05/20 22:21 Vitamin B Complex (Vitamin B Complex) 1 tab DAILY ORAL 09/21/20 09:00 12/20/20 08:59 10/05/20 08:17 Vitamin D (Vitamin D) 1,000 unit DAILY ORAL 09/30/20 20:00 10/30/20 19:59 10/05/20 08:18 Zinc Sulfate (Zinc Sulfate) 220 mg DAILY ORAL 09/30/20 20:00 12/29/20 19:59 10/05/20 08:17 Neurological/Psychiatric: Reports: no symptoms Allergies: Coded Allergies: AMOXICILLIN (Verified Allergy, Mild, RASH HIVES, 09/29/13) ERYTHROMYCIN BASE (Unverified Allergy, Unknown, 10/13/17) IODINE (Verified Allergy, Unknown, 09/29/13) PENICILLINS (Verified Allergy, Unknown, RASH HIVES, 09/29/13) Objective Data Height (Feet): 5 Height (Inches): 1.00 Weight (Pounds): 210 General Appearance: WD/WN, alert, mild distress Additional Comments: alert and oriented times self, place, and situation. Mood is anxious. Affect is blunted, congruent with mood. Thought process is concrete. Thought content, there is no suicidal or homicidal ideation. Cognition is intact. Insight and judgment is fair. Assessment/Plan [place] I: ASSESSMENT: [place] I Major depressive disorder. Anxiety disorder. [place] II borderline [place] III COPD. [place] IV Low. [place] V 50 PLAN: 1. Continue Zoloft. 2. ativan and ambien prn 3. The patient would like only melatonin. 4. Provide the patient with reality orientation and supportive therapy. Status: stable, progressing Status Narrative ASSESSMENT: [place] I Major depressive disorder. Anxiety disorder. [place] II borderline [place] III COPD. [place] IV Low. [place] V 50 PLAN: 1. Continue Zoloft. 2. ativan and ambien prn 3. The patient would like only melatonin. 4. Provide the patient with reality orientation and supportive therapy. Assessment/Plan: ASSESSMENT: [place] I Major depressive disorder. Anxiety disorder. [place] II borderline [place] III COPD. [place] IV Low. [place] V 50 PLAN: 1. Continue Zoloft. 2. ativan and ambien prn 3. The patient would like only melatonin. 4. Provide the patient with reality orientation and supportive therapy. Jayy Andino MD Oct 05, 2020 23:37
[2020-10-06] VITALS (13 sets, daily range): BP systolic 119–141; BP diastolic 64–84
[2020-10-06] MEDS: NovoLOG Insulin Flexpen SUBQ SCH ×4 (05:49→21:00)
[2020-10-06] MEDS: LORazepam 1mg tab ORAL PRN ×3 (05:56→22:12)
[2020-10-06] MEDS: Enoxaparin 40mg Inj SUBQ SCH ×2 (08:29→17:31)
[2020-10-06] MEDS: Levemir Flexpen SUBQ SCH ×2 (08:31→21:00)
[2020-10-06] MEDS: Sertraline 100mg tab ORAL SCH (08:32)
[2020-10-06] MEDS: Ascorbic Acid 500mg tab ORAL SCH ×2 (08:33→17:29)
[2020-10-06] MEDS: Vitamin D 1000 units Tab ORAL SCH (08:33)
[2020-10-06] MEDS: Docusate 250mg cap ORAL SCH (08:33)
[2020-10-06] MEDS: Nystatin Susp 500,000 units/5ml ORAL SCH ×4 (08:33→22:12)
[2020-10-06] MEDS: guaiFENesin ER 600mg tab ORAL SCH ×2 (08:33→17:29)
[2020-10-06] MEDS: Zinc Sulfate 220mg ORAL SCH (08:33)
[2020-10-06] MEDS: Vitamin B Complex Tab ORAL SCH (08:33)
[2020-10-06] MEDS: Anastrazole 1mg tab ORAL SCH (08:33)
[2020-10-06] MEDS: Lactobacillus-GG tablet ORAL SCH ×2 (08:34→17:29)
[2020-10-06] MEDS: Milk of Magnesia 30ml Ud ORAL PRN (08:34)
[2020-10-06] MEDS ORDERED: Lactulose 20gm/30ml UDC ORAL PRN (13:45)
--- NOTE | 2020-10-06 15:32 | Pulmonology Progress Note ---
Subjective ROS Limited/Unobtainable: No Constitutional: Reports: no symptoms Gastrointestinal/Abdominal: Denies: nausea, vomiting, diarrhea Musculoskeletal: Reports: pain - in chest Allergies: Coded Allergies: AMOXICILLIN (Verified Allergy, Mild, RASH HIVES, 09/29/13) ERYTHROMYCIN BASE (Unverified Allergy, Unknown, 10/13/17) IODINE (Verified Allergy, Unknown, 09/29/13) PENICILLINS (Verified Allergy, Unknown, RASH HIVES, 09/29/13) All Systems: reviewed and negative except above Objective Last 24 Hour Vital Signs Date Time Temp Pulse Resp B/P (MAP) Pulse Ox O2 Delivery O2 Flow Rate FiO2 10/06/20 14:53 90 20 119/72 96 10/06/20 14:23 90 20 119/72 96 10/06/20 12:00 98.2 101 20 125/70 (88) 95 10/06/20 10:05 90 119/72 10/06/20 09:00 Non-Rebreather 15.0 10/06/20 08:00 97.4 90 20 119/72 (88) 96 10/06/20 07:00 96 Non-Rebreather 15.0 100 10/06/20 06:26 96 20 120/70 96 10/06/20 05:56 96 20 135/78 96 10/06/20 04:00 98.1 92 20 124/78 (93) 96 10/06/20 00:35 97 26 97 100 10/06/20 00:25 97 26 122/64 97 10/06/20 00:00 98.2 101 20 122/64 (83) 94 10/05/20 23:55 97 24 124/68 97 10/05/20 21:00 Non-Rebreather 15.0 10/05/20 20:05 94 Non-Rebreather 15.0 100 10/05/20 20:00 98.6 101 20 109/62 (78) 94 10/05/20 18:33 82 19 129/69 100 10/05/20 18:03 79 18 132/72 100 10/05/20 16:00 97.5 79 18 132/72 (92) 100 l Intake and Output 10/05/20 10/06/20 19:00 07:00 Intake Total 600 ml 360 ml Output Total 500 ml Balance 100 ml 360 ml Intake Oral 600 ml 360 ml Output Urine Total 500 ml # Voids 5 # Bowel Movements 4 3 Laboratory Tests 10/05/20 22:05: POC Whole Blood Glucose 147H Current Medications Medications (Trade) Dose Ordered Sig/Sera Route PRN Reason Start Time Stop Time Status Last Admin Dose Admin Acetaminophen (Tylenol) 650 mg Q4H PRN ORAL Mild Pain (Pain Scale 1-3) 09/18/20 23:45 10/18/20 23:44 10/06/20 05:56 Amlodipine Besylate (Norvasc) 5 mg DAILY ORAL 09/19/20 09:00 10/19/20 08:59 10/06/20 10:05 Anastrozole (Arimidex) 1 mg DAILY ORAL 09/19/20 09:00 10/19/20 08:59 10/06/20 08:33 Ascorbic Acid (Vitamin C) 500 mg TWICE A DAY ORAL 09/30/20 20:00 10/30/20 19:59 10/06/20 08:33 Budesonide/ Formoterol Fumarate (Symbicort 160/ 4.5) 2 puff BIDRT INH 10/02/20 11:00 12/31/20 10:59 10/06/20 10:06 Cetylpyridinium Chloride (Cepacol) 1 lozg EVERY 2 HOURS PRN LAURA For Cough 09/25/20 18:15 12/24/20 18:14 09/28/20 21:19 Chlorhexidine Gluconate (Brandee-Hex 2%) 1 applic DAILY@2000 TOPIC 09/30/20 20:00 12/29/20 19:59 10/05/20 22:20 Clonidine HCl (Catapres Tab) 0.1 mg Q4H PRN ORAL SBP > 160 09/19/20 17:15 12/18/20 17:14 09/24/20 03:09 Dexamethasone (Decadron) 6 mg DAILY ORAL 09/28/20 09:00 10/07/20 08:59 10/06/20 08:33 Dextrose (Dextrose 50%) 25 ml Q30M PRN IV Hypoglycemia 10/02/20 22:00 12/31/20 21:59 Dextrose (Dextrose 50%) 50 ml Q30M PRN IV Hypoglycemia 10/02/20 22:00 12/31/20 21:59 Docusate Sodium (Colace) 250 mg DAILY ORAL 10/03/20 15:15 11/02/20 15:14 10/06/20 08:33 Enoxaparin Sodium (Lovenox) 40 mg BID SUBQ 09/30/20 20:00 12/29/20 19:59 10/06/20 08:29 Fluticasone Propionate (Flonase) 1 spray QHS NASAL 09/18/20 21:00 10/18/20 20:59 10/05/20 22:22 Guaifenesin (Mucinex ER) 600 mg TWICE A DAY ORAL 09/25/20 09:00 12/24/20 08:59 10/06/20 08:33 Guaifenesin/ Codeine Phosphate (Robitussin with codeine) 10 ml Q6H PRN ORAL For Cough 10/01/20 13:15 10/27/20 18:29 10/04/20 22:12 Hydroxyzine HCl (Atarax) 50 mg Q4H PRN ORAL Itching 09/19/20 06:15 10/19/20 06:14 10/03/20 23:44 Insulin Aspart (NovoLOG) BEFORE MEALS AND HS SUBQ 10/03/20 06:30 01/01/21 06:29 10/06/20 05:49 Insulin Detemir (Levemir) 10 units BEDTIME SUBQ 10/02/20 22:00 12/31/20 21:59 10/05/20 21:00 Insulin Detemir (Levemir) 15 units DAILY SUBQ 10/06/20 09:00 01/04/21 08:59 10/06/20 08:31 Lactobacillus Acidophilus (Culturelle) 1 tab TWICE A DAY ORAL 09/25/20 18:00 12/24/20 17:59 10/06/20 08:34 Lactulose (Cephulac) 20 gm BIAC PRN ORAL constipation 10/06/20 13:45 11/05/20 13:44 Lorazepam (Ativan) 1 mg Q4H PRN ORAL For Anxiety 10/06/20 09:15 10/13/20 09:14 10/06/20 14:23 Magnesium Hydroxide (Mom) 30 ml DAILYPRN PRN ORAL Constipation 10/03/20 15:15 11/02/20 15:14 10/06/20 08:34 Nystatin (Nystatin) 5 ml QID ORAL 10/02/20 09:00 10/09/20 08:59 10/06/20 13:44 Ondansetron HCl (Zofran) 4 mg Q6H PRN IVP Nausea & Vomiting 09/18/20 19:00 10/18/20 18:59 10/06/20 08:33 Pantoprazole (Protonix) 40 mg DAILY ORAL 09/19/20 09:00 10/19/20 08:59 10/06/20 08:32 Potassium Chloride (K-Dur) 20 meq DAILY ORAL 09/20/20 09:00 10/07/20 08:59 10/06/20 08:34 Sertraline HCl (Zoloft) 100 mg DAILY ORAL 09/19/20 09:00 10/19/20 08:59 10/06/20 08:32 Temazepam (Restoril) 15 mg HSPRN PRN ORAL Insomnia 10/02/20 02:15 10/09/20 02:14 10/05/20 22:21 Vitamin B Complex (Vitamin B Complex) 1 tab DAILY ORAL 09/21/20 09:00 12/20/20 08:59 10/06/20 08:33 Vitamin D (Vitamin D) 1,000 unit DAILY ORAL 09/30/20 20:00 10/30/20 19:59 10/06/20 08:33 Zinc Sulfate (Zinc Sulfate) 220 mg DAILY ORAL 09/30/20 20:00 12/29/20 19:59 10/06/20 08:33 Assessment/Plan Assessment/Plan Pulmonary Progress Note Subjective ROS Limited/Unobtainable: No Constitutional: Denies: fever, chills Gastrointestinal/Abdominal: Denies: nausea, vomiting, diarrhea Musculoskeletal: Reports: pain - in chest Allergies: Coded Allergies: AMOXICILLIN (Verified Allergy, Mild, RASH HIVES, 09/29/13) ERYTHROMYCIN BASE (Unverified Allergy, Unknown, 10/13/17) IODINE (Verified Allergy, Unknown, 09/29/13) PENICILLINS (Verified Allergy, Unknown, RASH HIVES, 09/29/13) All Systems: reviewed and negative except above Subjective care noted noted congestion and sputum + COVID and on isolation remains on high FIO2 Objective Vital Signs noted Deferred Covid19 Laboratory Tests noted Medications noted Assessment/Plan Assessment/Plan ASSESSMENT: Chronic respiratory failure COPD exacerbation and facial cellulitis. diabetes, hypertension, chronic hypoxemia chronic debility, pulmonary congestion, COVID+ PLAN: remdesivir and decadron ertapenem sputum culture monitor imaging intensify antibiotics per ID respiratory care as is home meds supportive care oxygen therapy and monitor prognosis guarded impression, plan, and exam edited and reviewed in detail care discussed with Werner Hussein MD Oct 06, 2020 15:32
--- NOTE | 2020-10-06 17:21 | Infectious Diseases Prog Note ---
Assessment/Plan Assessment/Plan A: 1. Klebsiella urinary tract infection. 2. Facial cellulitis. 3. COPD exacerbation. 4. DM with hyperglycemia 5 HPN 6. Penicillin allergy 7. COVID19 pneumonia PLAN: 1. Finished remdesivir course 2. continue dexamethasone day 9 Subjective ROS Limited/Unobtainable: Yes Allergies: Coded Allergies: AMOXICILLIN (Verified Allergy, Mild, RASH HIVES, 09/29/13) ERYTHROMYCIN BASE (Unverified Allergy, Unknown, 10/13/17) IODINE (Verified Allergy, Unknown, 09/29/13) PENICILLINS (Verified Allergy, Unknown, RASH HIVES, 09/29/13) Objective Last 24 Hour Vital Signs Date Time Temp Pulse Resp B/P (MAP) Pulse Ox O2 Delivery O2 Flow Rate FiO2 10/06/20 16:00 99.5 105 20 129/82 (98) 98 10/06/20 14:53 90 20 119/72 96 10/06/20 14:23 90 20 119/72 96 10/06/20 12:00 98.2 101 20 125/70 (88) 95 10/06/20 10:05 90 119/72 10/06/20 09:00 Non-Rebreather 15.0 10/06/20 08:00 97.4 90 20 119/72 (88) 96 10/06/20 07:00 96 Non-Rebreather 15.0 100 10/06/20 06:26 96 20 120/70 96 10/06/20 05:56 96 20 135/78 96 10/06/20 04:00 98.1 92 20 124/78 (93) 96 10/06/20 00:35 97 26 97 100 10/06/20 00:25 97 26 122/64 97 10/06/20 00:00 98.2 101 20 122/64 (83) 94 10/05/20 23:55 97 24 124/68 97 10/05/20 21:00 Non-Rebreather 15.0 10/05/20 20:05 94 Non-Rebreather 15.0 100 10/05/20 20:00 98.6 101 20 109/62 (78) 94 10/05/20 18:33 82 19 129/69 100 10/05/20 18:03 79 18 132/72 100 Height (Feet): 5 Height (Inches): 1.00 Weight (Pounds): 210 HEENT: mucous membranes moist Respiratory/Chest: other - oxygen by NRB mask Cardiovascular: tachycardia Abdomen: soft, non tender Neurologic/Psychiatric: other - sleeping Laboratory Tests Test 10/05/20 22:05 POC Whole Blood Glucose 147 MG/DL (74-106) H Current Medications Medications (Trade) Dose Ordered Sig/Sera Route PRN Reason Start Time Stop Time Status Last Admin Dose Admin Acetaminophen (Tylenol) 650 mg Q4H PRN ORAL Mild Pain (Pain Scale 1-3) 09/18/20 23:45 10/18/20 23:44 10/06/20 05:56 Amlodipine Besylate (Norvasc) 5 mg DAILY ORAL 09/19/20 09:00 10/19/20 08:59 10/06/20 10:05 Anastrozole (Arimidex) 1 mg DAILY ORAL 09/19/20 09:00 10/19/20 08:59 10/06/20 08:33 Ascorbic Acid (Vitamin C) 500 mg TWICE A DAY ORAL 09/30/20 20:00 10/30/20 19:59 10/06/20 08:33 Budesonide/ Formoterol Fumarate (Symbicort 160/ 4.5) 2 puff BIDRT INH 10/02/20 11:00 12/31/20 10:59 10/06/20 10:06 Cetylpyridinium Chloride (Cepacol) 1 lozg EVERY 2 HOURS PRN LARUA For Cough 09/25/20 18:15 12/24/20 18:14 09/28/20 21:19 Chlorhexidine Gluconate (Brandee-Hex 2%) 1 applic DAILY@1999 TOPIC 09/30/20 20:00 12/29/20 19:59 10/05/20 22:20 Clonidine HCl (Catapres Tab) 0.1 mg Q4H PRN ORAL SBP > 160 09/19/20 17:15 12/18/20 17:14 09/24/20 03:09 Dexamethasone (Decadron) 6 mg DAILY ORAL 09/28/20 09:00 10/07/20 08:59 10/06/20 08:33 Dextrose (Dextrose 50%) 25 ml Q30M PRN IV Hypoglycemia 10/02/20 22:00 12/31/20 21:59 Dextrose (Dextrose 50%) 50 ml Q30M PRN IV Hypoglycemia 10/02/20 22:00 12/31/20 21:59 Docusate Sodium (Colace) 250 mg DAILY ORAL 10/03/20 15:15 11/02/20 15:14 10/06/20 08:33 Enoxaparin Sodium (Lovenox) 40 mg BID SUBQ 09/30/20 20:00 12/29/20 19:59 10/06/20 08:29 Fluticasone Propionate (Flonase) 1 spray QHS NASAL 09/18/20 21:00 10/18/20 20:59 10/05/20 22:22 Guaifenesin (Mucinex ER) 600 mg TWICE A DAY ORAL 09/25/20 09:00 12/24/20 08:59 10/06/20 08:33 Guaifenesin/ Codeine Phosphate (Robitussin with codeine) 10 ml Q6H PRN ORAL For Cough 10/01/20 13:15 10/27/20 18:29 10/04/20 22:12 Hydroxyzine HCl (Atarax) 50 mg Q4H PRN ORAL Itching 09/19/20 06:15 10/19/20 06:14 10/03/20 23:44 Insulin Aspart (NovoLOG) BEFORE MEALS AND HS SUBQ 10/03/20 06:30 01/01/21 06:29 10/06/20 05:49 Insulin Detemir (Levemir) 10 units BEDTIME SUBQ 10/02/20 22:00 12/31/20 21:59 10/05/20 21:00 Insulin Detemir (Levemir) 15 units DAILY SUBQ 10/06/20 09:00 01/04/21 08:59 10/06/20 08:31 Lactobacillus Acidophilus (Culturelle) 1 tab TWICE A DAY ORAL 09/25/20 18:00 12/24/20 17:59 10/06/20 08:34 Lactulose (Cephulac) 20 gm BIAC PRN ORAL constipation 10/06/20 13:45 11/05/20 13:44 Lorazepam (Ativan) 1 mg Q4H PRN ORAL For Anxiety 10/06/20 09:15 10/13/20 09:14 10/06/20 14:23 Magnesium Hydroxide (Mom) 30 ml DAILYPRN PRN ORAL Constipation 10/03/20 15:15 11/02/20 15:14 10/06/20 08:34 Nystatin (Nystatin) 5 ml QID ORAL 10/02/20 09:00 10/09/20 08:59 10/06/20 13:44 Ondansetron HCl (Zofran) 4 mg Q6H PRN IVP Nausea & Vomiting 09/18/20 19:00 10/18/20 18:59 10/06/20 08:33 Pantoprazole (Protonix) 40 mg DAILY ORAL 09/19/20 09:00 10/19/20 08:59 10/06/20 08:32 Potassium Chloride (K-Dur) 20 meq DAILY ORAL 09/20/20 09:00 10/07/20 08:59 10/06/20 08:34 Sertraline HCl (Zoloft) 100 mg DAILY ORAL 09/19/20 09:00 10/19/20 08:59 10/06/20 08:32 Temazepam (Restoril) 15 mg HSPRN PRN ORAL Insomnia 10/02/20 02:15 10/09/20 02:14 10/05/20 22:21 Vitamin B Complex (Vitamin B Complex) 1 tab DAILY ORAL 09/21/20 09:00 12/20/20 08:59 10/06/20 08:33 Vitamin D (Vitamin D) 1,000 unit DAILY ORAL 09/30/20 20:00 10/30/20 19:59 10/06/20 08:33 Zinc Sulfate (Zinc Sulfate) 220 mg DAILY ORAL 09/30/20 20:00 12/29/20 19:59 10/06/20 08:33 Rene Schultz MD Oct 06, 2020 17:21
--- NOTE | 2020-10-06 20:31 | Diagnostic Imaging Report ---
EXAM: XR Left Forearm, 2 Views CLINICAL HISTORY: FALL TECHNIQUE: Frontal and lateral views of the left forearm. COMPARISON: No relevant prior studies available. FINDINGS: Bones/joints: There are degenerative changes at the distal radial metaphysis. No acute fracture. No dislocation. Soft tissues: Unremarkable. IMPRESSION: No acute fracture.
--- NOTE | 2020-10-06 20:32 | Diagnostic Imaging Report ---
EXAM: XR Left Shoulder Complete, 2 or More Views CLINICAL HISTORY: FALL TECHNIQUE: Two or more views of the left shoulder. COMPARISON: No relevant prior studies available. FINDINGS: Bones/joints: No acute fracture or dislocation. There are severe degenerative changes of the left shoulder with severe narrowing of the joint space. Degenerative changes are present at the greater tuberosity. Soft tissues: Unremarkable. Vasculature: There is atherosclerotic calcification of the thoracic aortic arch. Pleural space: There is a small left pleural effusion. Tubes, lines and devices: There is a left upper extremity PICC line partially imaged. Other findings: Cardiac size is prominent. IMPRESSION: 1. No acute fracture. 2. Severe degenerative changes of the left shoulder joint.
[2020-10-06] MEDS: Dyna-Hex 2% Top Sol 2oz TOPIC SCH (22:11)
[2020-10-06] MEDS: HydrOXYzine 50mg tab ORAL PRN (22:11)
[2020-10-06] MEDS: Flonase Nasal Inhaler 16gm NASAL SCH (22:13)
[2020-10-07] VITALS (9 sets, daily range): BP systolic 90–146; BP diastolic 58–99
--- NOTE | 2020-10-07 02:55 | Cardiology Progress Note ---
Subjective DATE OF SERVICE: Oct 06, 2020 She still has congestion and pleuritic CP. Remains constipated Remains significantly hypoxic on 15L high flow mask. Glucose elevated - on steroids Covid 19 swab negative on admit; repeat PCR positive. CXR (10/02) No change; infiltrates bilaterally with left eff'n Objective Last 24 Hour Vital Signs Date Time Temp Pulse Resp B/P (MAP) Pulse Ox O2 Delivery O2 Flow Rate FiO2 10/07/20 00:00 98.0 97 19 126/72 (90) 97 10/06/20 23:51 92 25 95 100 10/06/20 23:30 98.7 97 10/06/20 22:30 99.1 96 10/06/20 21:30 98.6 98 10/06/20 21:00 Non-Rebreather 15.0 10/06/20 21:00 98.6 99 10/06/20 20:30 98.6 97 10/06/20 20:00 97.8 95 10/06/20 19:14 98.7 106 21 135/79 (97) 95 10/06/20 18:55 95 Non-Rebreather 15.0 100 10/06/20 16:00 99.5 105 20 129/82 (98) 98 10/06/20 14:53 90 20 119/72 96 10/06/20 14:23 90 20 119/72 96 10/06/20 12:00 98.2 101 20 125/70 (88) 95 10/06/20 10:05 90 119/72 10/06/20 09:00 Non-Rebreather 15.0 10/06/20 08:00 97.4 90 20 119/72 (88) 96 10/06/20 07:00 96 Non-Rebreather 15.0 100 10/06/20 06:26 96 20 120/70 96 10/06/20 05:56 96 20 135/78 96 10/06/20 04:00 98.1 92 20 124/78 (93) 96 ROS: unchanged from 09/18/20 HEENT: normal ENT inspection RHYTHM: NSR, ST, PACs LUNGS: bilateral rhonchi, coarse breath sounds CARDIAC: normal rate, regular rhythm, normal S1 and S2, gallop/S4 ABDOMEN: normal bowel sounds, non tender, soft, no organomegaly, other - obese EXTREMITIES: +1 edema Laboratory Tests Test 10/06/20 19:39 POC Whole Blood Glucose 152 MG/DL (74-106) H Assessment/Plan Assessment/Plan COVID19 pneumonia COPD exacerbation Hypoxia Acute bronchitis worsening. Ac/chr diastolic CHF with decreasing BNP now - clinically compensated. BNP decreased to 76. 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 O2 suppl and bronchodilator rx Anti-coagulation Hold duretic based on current clinical parameters; trend BNP as needed. Titrate antiHTN regimen as needed. Insulin coverage with additional levemir titration. Bowel regimen Werner Martinez MD Oct 07, 2020 02:55
[2020-10-07] MEDS: NovoLOG Insulin Flexpen SUBQ SCH ×4 (06:30→21:00)
[2020-10-07] MEDS: Vitamin D 1000 units Tab ORAL SCH (10:59)
[2020-10-07] MEDS: Levemir Flexpen SUBQ SCH ×2 (10:59→21:25)
[2020-10-07] MEDS: Nystatin Susp 500,000 units/5ml ORAL SCH ×4 (10:59→21:10)
[2020-10-07] MEDS: Anastrazole 1mg tab ORAL SCH (11:00)
[2020-10-07] MEDS: Docusate 250mg cap ORAL SCH (11:00)
[2020-10-07] MEDS: Lactobacillus-GG tablet ORAL SCH ×2 (11:00→17:31)
[2020-10-07] MEDS: Zinc Sulfate 220mg ORAL SCH (11:00)
[2020-10-07] MEDS: Ascorbic Acid 500mg tab ORAL SCH ×2 (11:00→17:31)
[2020-10-07] MEDS: Vitamin B Complex Tab ORAL SCH (11:01)
[2020-10-07] MEDS: guaiFENesin ER 600mg tab ORAL SCH ×2 (11:01→17:31)
[2020-10-07] MEDS: Sertraline 100mg tab ORAL SCH (11:01)
[2020-10-07] MEDS: Enoxaparin 40mg Inj SUBQ SCH ×2 (11:04→17:32)
[2020-10-07] MEDS: Milk of Magnesia 30ml Ud ORAL PRN (11:37)
[2020-10-07 11:40] LABS: EOSINOPHILS % (AUTO) 1.1 % (0.0-3.0); HEMATOCRIT 30.8 % (37.0-47.0); HEMOGLOBIN 10.2 G/DL (12.0-16.0); LYMPHOCYTES % (AUTO) 26.1 % (20.0-45.0); MEAN CORPUSCULAR VOLUME 84 FL (80-99); MONOCYTES % (AUTO) 7.5 % (1.0-10.0); NEUTROPHILS % (AUTO) 64.3 % (45.0-75.0); PLATELET COUNT 320 K/UL (150-450); RED BLOOD COUNT 3.66 M/UL (4.20-5.40); RED CELL DISTRIBUTION WIDTH 13.7 % (11.6-14.8); WHITE BLOOD COUNT 11.6 K/UL (4.8-10.8)
[2020-10-07 12:01] LABS: ALANINE AMINOTRANSFERASE 19 U/L (12-78); ALBUMIN 2.2 G/DL (3.4-5.0); ALBUMIN/GLOBULIN RATIO 0.5 (1.0-2.7); ALKALINE PHOSPHATASE 80 U/L (46-116); ANION GAP 1 mmol/L (5-15); ASPARTATE AMINO TRANSFERASE 13 U/L (15-37); BILIRUBIN,TOTAL 0.3 MG/DL (0.2-1.0); BLOOD UREA NITROGEN 15 mg/dL (7-18); CARBON DIOXIDE 38 MMOL/L (21-32); CHLORIDE 99 MMOL/L (98-107); CREATININE 0.7 MG/DL (0.55-1.30); POTASSIUM 4.3 MMOL/L (3.5-5.1); SODIUM 137 MMOL/L (136-145)
[2020-10-07] MEDS: LORazepam 1mg tab ORAL PRN (12:29)
--- NOTE | 2020-10-07 20:28 | Pulmonology Progress Note ---
Subjective ROS Limited/Unobtainable: Yes Constitutional: Reports: no symptoms Gastrointestinal/Abdominal: Denies: nausea, vomiting, diarrhea Musculoskeletal: Reports: pain - in chest Allergies: Coded Allergies: AMOXICILLIN (Verified Allergy, Mild, RASH HIVES, 09/29/13) ERYTHROMYCIN BASE (Unverified Allergy, Unknown, 10/13/17) IODINE (Verified Allergy, Unknown, 09/29/13) PENICILLINS (Verified Allergy, Unknown, RASH HIVES, 09/29/13) All Systems: reviewed and negative except above Objective Last 24 Hour Vital Signs Date Time Temp Pulse Resp B/P (MAP) Pulse Ox O2 Delivery O2 Flow Rate FiO2 10/07/20 18:15 99.8 10/07/20 16:00 100.4 107 20 90/58 (69) 96 10/07/20 15:21 96 Non-Rebreather 15.0 100 10/07/20 12:59 98 18 131/75 97 10/07/20 12:29 98 18 131/75 97 10/07/20 12:00 98.4 94 20 135/75 (95) 96 10/07/20 11:00 98 131/75 10/07/20 09:00 Non-Rebreather 15.0 10/07/20 04:00 98.4 97 20 146/70 (95) 97 10/07/20 03:44 89 24 98 100 10/07/20 03:30 98.7 99 10/07/20 02:30 98.7 98 10/07/20 01:30 98.7 97 10/07/20 00:30 98.7 98 10/07/20 00:00 98.0 97 19 126/72 (90) 97 10/06/20 23:51 92 25 95 100 10/06/20 23:30 98.7 97 10/06/20 22:30 99.1 96 10/06/20 21:30 98.6 98 10/06/20 21:00 Non-Rebreather 15.0 10/06/20 21:00 98.6 99 10/06/20 20:30 98.6 97 Intake and Output 10/06/20 10/07/20 19:00 07:00 Intake Total 1210 ml Output Total 900 ml 700 ml Balance 310 ml -700 ml Intake Oral 1210 ml Output Urine Total 900 ml 700 ml # Voids 4 # Bowel Movements 6 3 Laboratory Tests 10/07/20 06:38: POC Whole Blood Glucose 140H 10/07/20 11:30: White Blood Count 11.6H, Red Blood Count 3.66L, Hemoglobin 10.2L, Hematocrit 30.8L, Mean Corpuscular Volume 84, Mean Corpuscular Hemoglobin 27.7, Mean Corpuscular Hemoglobin Concent 32.9, Red Cell Distribution Width 13.7, Platelet Count 320, Mean Platelet Volume 7.1, Neutrophils (%) (Auto) 64.3, Lymphocytes (%) (Auto) 26.1, Monocytes (%) (Auto) 7.5, Eosinophils (%) (Auto) 1.1, Basophils (%) (Auto) 1.0, Sodium Level 137, Potassium Level 4.3, Chloride Level 99, Carbon Dioxide Level 38H, Anion Gap 1L, Blood Urea Nitrogen 15, Creatinine 0.7, Estimat Glomerular Filtration Rate > 60, Glucose Level 115H, Calcium Level 9.0, Magnesium Level 1.8, Total Bilirubin 0.3, Aspartate Amino Transf (AST/SGOT) 13L, Alanine Aminotransferase (ALT/SGPT) 19, Alkaline Phosphatase 80, Pro-B-Type Natriuretic Peptide 84, Total Protein 6.8, Albumin 2.2L, Globulin 4.6, Albumin/Globulin Ratio 0.5L 10/07/20 17:31: POC Whole Blood Glucose 155H Current Medications Medications (Trade) Dose Ordered Sig/Sera Route PRN Reason Start Time Stop Time Status Last Admin Dose Admin Acetaminophen (Tylenol) 650 mg Q4H PRN ORAL Mild Pain (Pain Scale 1-3) 09/18/20 23:45 10/18/20 23:44 10/07/20 17:45 Amlodipine Besylate (Norvasc) 5 mg DAILY ORAL 09/19/20 09:00 10/19/20 08:59 10/07/20 11:00 Anastrozole (Arimidex) 1 mg DAILY ORAL 09/19/20 09:00 10/19/20 08:59 10/07/20 11:00 Ascorbic Acid (Vitamin C) 500 mg TWICE A DAY ORAL 09/30/20 20:00 10/30/20 19:59 10/07/20 17:31 Budesonide/ Formoterol Fumarate (Symbicort 160/ 4.5) 2 puff BIDRT INH 10/02/20 11:00 12/31/20 10:59 10/07/20 11:02 Cetylpyridinium Chloride (Cepacol) 1 lozg EVERY 2 HOURS PRN LAURA For Cough 09/25/20 18:15 12/24/20 18:14 09/28/20 21:19 Chlorhexidine Gluconate (Brandee-Hex 2%) 1 applic DAILY@2000 TOPIC 09/30/20 20:00 12/29/20 19:59 10/06/20 22:11 Clonidine HCl (Catapres Tab) 0.1 mg Q4H PRN ORAL SBP > 160 09/19/20 17:15 12/18/20 17:14 09/24/20 03:09 Dextrose (Dextrose 50%) 25 ml Q30M PRN IV Hypoglycemia 10/02/20 22:00 12/31/20 21:59 Dextrose (Dextrose 50%) 50 ml Q30M PRN IV Hypoglycemia 10/02/20 22:00 12/31/20 21:59 Docusate Sodium (Colace) 250 mg DAILY ORAL 10/03/20 15:15 11/02/20 15:14 10/07/20 11:00 Enoxaparin Sodium (Lovenox) 40 mg BID SUBQ 09/30/20 20:00 12/29/20 19:59 10/07/20 17:32 Fluticasone Propionate (Flonase) 1 spray QHS NASAL 09/18/20 21:00 10/18/20 20:59 10/06/20 22:13 Guaifenesin (Mucinex ER) 600 mg TWICE A DAY ORAL 09/25/20 09:00 12/24/20 08:59 10/07/20 17:31 Guaifenesin/ Codeine Phosphate (Robitussin with codeine) 10 ml Q6H PRN ORAL For Cough 10/01/20 13:15 10/27/20 18:29 10/04/20 22:12 Hydroxyzine HCl (Atarax) 50 mg Q4H PRN ORAL Itching 09/19/20 06:15 10/19/20 06:14 10/06/20 22:11 Insulin Aspart (NovoLOG) BEFORE MEALS AND HS SUBQ 10/03/20 06:30 01/01/21 06:29 10/07/20 17:42 Insulin Detemir (Levemir) 10 units BEDTIME SUBQ 10/02/20 22:00 12/31/20 21:59 10/06/20 21:00 Insulin Detemir (Levemir) 15 units DAILY SUBQ 10/06/20 09:00 01/04/21 08:59 10/07/20 10:59 Lactobacillus Acidophilus (Culturelle) 1 tab TWICE A DAY ORAL 09/25/20 18:00 12/24/20 17:59 10/07/20 17:31 Lactulose (Cephulac) 20 gm BIAC PRN ORAL constipation 10/06/20 13:45 11/05/20 13:44 Lorazepam (Ativan) 1 mg Q4H PRN ORAL For Anxiety 10/06/20 09:15 10/13/20 09:14 10/07/20 12:29 Magnesium Hydroxide (Mom) 30 ml DAILYPRN PRN ORAL Constipation 10/03/20 15:15 11/02/20 15:14 10/07/20 11:37 Nystatin (Nystatin) 5 ml QID ORAL 10/02/20 09:00 10/09/20 08:59 10/07/20 17:31 Ondansetron HCl (Zofran) 4 mg Q6H PRN IVP Nausea & Vomiting 09/18/20 19:00 10/18/20 18:59 10/07/20 11:38 Pantoprazole (Protonix) 40 mg DAILY ORAL 09/19/20 09:00 10/19/20 08:59 10/07/20 11:00 Sertraline HCl (Zoloft) 100 mg DAILY ORAL 09/19/20 09:00 10/19/20 08:59 10/07/20 11:01 Temazepam (Restoril) 15 mg HSPRN PRN ORAL Insomnia 10/02/20 02:15 10/09/20 02:14 10/06/20 22:12 Vitamin B Complex (Vitamin B Complex) 1 tab DAILY ORAL 09/21/20 09:00 12/20/20 08:59 10/07/20 11:01 Vitamin D (Vitamin D) 1,000 unit DAILY ORAL 09/30/20 20:00 10/30/20 19:59 10/07/20 10:59 Zinc Sulfate (Zinc Sulfate) 220 mg DAILY ORAL 09/30/20 20:00 12/29/20 19:59 10/07/20 11:00 Assessment/Plan Assessment/Plan Pulmonary Progress Note Subjective ROS Limited/Unobtainable: No Constitutional: Denies: fever, chills Gastrointestinal/Abdominal: Denies: nausea, vomiting, diarrhea Musculoskeletal: Reports: pain - in chest Allergies: Coded Allergies: AMOXICILLIN (Verified Allergy, Mild, RASH HIVES, 09/29/13) ERYTHROMYCIN BASE (Unverified Allergy, Unknown, 10/13/17) IODINE (Verified Allergy, Unknown, 09/29/13) PENICILLINS (Verified Allergy, Unknown, RASH HIVES, 09/29/13) All Systems: reviewed and negative except above Subjective care noted noted congestion and sputum + COVID and on isolation remains on high FIO2 Objective Vital Signs noted Deferred Covid19 Laboratory Tests noted Medications noted Assessment/Plan Assessment/Plan ASSESSMENT: Chronic respiratory failure COPD exacerbation and facial cellulitis. diabetes, hypertension, chronic hypoxemia chronic debility, pulmonary congestion, COVID+ PLAN: remdesivir and decadron ertapenem sputum culture monitor imaging intensify antibiotics per ID respiratory care as is home meds supportive care oxygen therapy and monitor prognosis guarded impression, plan, and exam edited and reviewed in detail care discussed with Werner Hussein MD Oct 07, 2020 20:28
[2020-10-07] MEDS: Dyna-Hex 2% Top Sol 2oz TOPIC SCH (21:09)
[2020-10-07] MEDS: Flonase Nasal Inhaler 16gm NASAL SCH (21:14)
[2020-10-08] VITALS: BP 127/61
[2020-10-08 00:30] VITALS: BP 127/61
[2020-10-08 04:00] VITALS: BP 109/61
--- NOTE | 2020-10-08 04:02 | Cardiology Progress Note ---
Subjective DATE OF SERVICE: Oct 07, 2020 She still has congestion and pleuritic CP - unchanged. Remains significantly hypoxic on 15L high flow mask. Glucose was elevated due to steroids, now controlled. Covid 19 swab negative on admit; repeat PCR positive. CXR (10/02) No change; infiltrates bilaterally with left eff'n Objective Last 24 Hour Vital Signs Date Time Temp Pulse Resp B/P (MAP) Pulse Ox O2 Delivery O2 Flow Rate FiO2 10/08/20 00:25 108 14 94 100 10/08/20 00:00 99.4 109 22 127/61 (83) 93 10/07/20 21:00 Non-Rebreather 15.0 10/07/20 21:00 96 Non-Rebreather 15.0 100 10/07/20 20:00 99.3 99 20 110/99 (103) 95 10/07/20 18:15 99.8 10/07/20 16:00 100.4 107 20 90/58 (69) 96 10/07/20 15:21 96 Non-Rebreather 15.0 100 10/07/20 12:59 98 18 131/75 97 10/07/20 12:29 98 18 131/75 97 10/07/20 12:00 98.4 94 20 135/75 (95) 96 10/07/20 11:00 98 131/75 10/07/20 09:00 Non-Rebreather 15.0 ROS: unchanged from 09/18/20 HEENT: normal ENT inspection RHYTHM: NSR, ST, PACs LUNGS: bilateral rhonchi, coarse breath sounds CARDIAC: normal rate, regular rhythm, normal S1 and S2, gallop/S4 ABDOMEN: normal bowel sounds, non tender, soft, no organomegaly, other - obese EXTREMITIES: +1 edema Laboratory Tests Test 10/07/20 06:38 10/07/20 11:30 10/07/20 17:31 POC Whole Blood Glucose 140 MG/DL (74-106) H 155 MG/DL (74-106) H White Blood Count 11.6 K/UL (4.8-10.8) H Red Blood Count 3.66 M/UL (4.20-5.40) L Hemoglobin 10.2 G/DL (12.0-16.0) L Hematocrit 30.8 % (37.0-47.0) L Mean Corpuscular Volume 84 FL (80-99) Mean Corpuscular Hemoglobin 27.7 PG (27.0-31.0) Mean Corpuscular Hemoglobin Concent 32.9 G/DL (32.0-36.0) Red Cell Distribution Width 13.7 % (11.6-14.8) Platelet Count 320 K/UL (150-450) Mean Platelet Volume 7.1 FL (6.5-10.1) Neutrophils (%) (Auto) 64.3 % (45.0-75.0) Lymphocytes (%) (Auto) 26.1 % (20.0-45.0) Monocytes (%) (Auto) 7.5 % (1.0-10.0) Eosinophils (%) (Auto) 1.1 % (0.0-3.0) Basophils (%) (Auto) 1.0 % (0.0-2.0) Sodium Level 137 MMOL/L (136-145) Potassium Level 4.3 MMOL/L (3.5-5.1) Chloride Level 99 MMOL/L (98-107) Carbon Dioxide Level 38 MMOL/L (21-32) H Anion Gap 1 mmol/L (5-15) L Blood Urea Nitrogen 15 mg/dL (7-18) Creatinine 0.7 MG/DL (0.55-1.30) Estimat Glomerular Filtration Rate > 60 mL/min (>60) Glucose Level 115 MG/DL (74-106) H Calcium Level 9.0 MG/DL (8.5-10.1) Magnesium Level 1.8 MG/DL (1.8-2.4) Total Bilirubin 0.3 MG/DL (0.2-1.0) Aspartate Amino Transf (AST/SGOT) 13 U/L (15-37) L Alanine Aminotransferase (ALT/SGPT) 19 U/L (12-78) Alkaline Phosphatase 80 U/L (46-116) Pro-B-Type Natriuretic Peptide 84 pg/mL (0-125) Total Protein 6.8 G/DL (6.4-8.2) Albumin 2.2 G/DL (3.4-5.0) L Globulin 4.6 g/dL Albumin/Globulin Ratio 0.5 (1.0-2.7) L Assessment/Plan Assessment/Plan COVID19 pneumonia COPD exacerbation Hypoxia Acute bronchitis worsening. Ac/chr diastolic CHF with decreasing BNP now - clinically compensated. BNP decreased to 76. 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 O2 suppl - taper as tolerated. Anti-coagulation Hold duretic based on current clinical parameters; trend BNP as needed. Titrate antiHTN regimen as needed. Insulin coverage with additional levemir titration. Bowel regimen Werner Martinez MD Oct 08, 2020 04:02
[2020-10-08] MEDS: NovoLOG Insulin Flexpen SUBQ SCH ×4 (06:30→21:33)
[2020-10-08 08:00] VITALS: BP 128/89
[2020-10-08] MEDS: Vitamin D 1000 units Tab ORAL SCH (10:05)
[2020-10-08] MEDS: Vitamin B Complex Tab ORAL SCH (10:05)
[2020-10-08] MEDS: Docusate 250mg cap ORAL SCH (10:05)
[2020-10-08] MEDS: Nystatin Susp 500,000 units/5ml ORAL SCH ×4 (10:05→20:58)
[2020-10-08] MEDS: Ascorbic Acid 500mg tab ORAL SCH ×2 (10:06→18:00)
[2020-10-08] MEDS: Lactobacillus-GG tablet ORAL SCH ×2 (10:06→17:59)
[2020-10-08] MEDS: Anastrazole 1mg tab ORAL SCH (10:06)
[2020-10-08] MEDS: Zinc Sulfate 220mg ORAL SCH (10:06)
[2020-10-08] MEDS: Sertraline 100mg tab ORAL SCH (10:06)
[2020-10-08] MEDS: guaiFENesin ER 600mg tab ORAL SCH ×2 (10:06→18:00)
[2020-10-08] MEDS: Enoxaparin 40mg Inj SUBQ SCH ×2 (10:14→18:04)
[2020-10-08] MEDS: Levemir Flexpen SUBQ SCH ×2 (10:19→22:16)
[2020-10-08] MEDS: HydrOXYzine 50mg tab ORAL PRN ×2 (10:47→20:59)
[2020-10-08] MEDS: guaiFENesin w/Codeine 5ml Liq ud ORAL PRN ×2 (10:47→20:59)
--- NOTE | 2020-10-08 15:54 | Pulmonology Progress Note ---
Subjective ROS Limited/Unobtainable: Yes Constitutional: Reports: no symptoms Gastrointestinal/Abdominal: Denies: nausea, vomiting, diarrhea Musculoskeletal: Reports: pain - in chest Allergies: Coded Allergies: AMOXICILLIN (Verified Allergy, Mild, RASH HIVES, 09/29/13) ERYTHROMYCIN BASE (Unverified Allergy, Unknown, 10/13/17) IODINE (Verified Allergy, Unknown, 09/29/13) PENICILLINS (Verified Allergy, Unknown, RASH HIVES, 09/29/13) All Systems: reviewed and negative except above Objective Last 24 Hour Vital Signs Date Time Temp Pulse Resp B/P (MAP) Pulse Ox O2 Delivery O2 Flow Rate FiO2 10/08/20 10:05 86 128/89 10/08/20 09:00 Non-Rebreather 15.0 10/08/20 08:00 98.2 86 20 128/89 (102) 94 10/08/20 07:47 93 Non-Rebreather 15.0 100 10/08/20 07:40 99.7 10/08/20 07:23 99.7 10/08/20 04:00 101.3 109 22 109/61 (77) 96 10/08/20 00:30 99.4 93 10/08/20 00:25 108 14 94 100 10/08/20 00:00 99.4 109 22 127/61 (83) 93 10/07/20 21:00 Non-Rebreather 15.0 10/07/20 21:00 96 Non-Rebreather 15.0 100 10/07/20 20:00 99.3 99 20 110/99 (103) 95 10/07/20 18:15 99.8 10/07/20 16:00 100.4 107 20 90/58 (69) 96 Intake and Output 10/07/20 10/08/20 19:00 07:00 Intake Total 240 ml 480 ml Balance 240 ml 480 ml Intake Oral 240 ml 480 ml # Voids 3 3 # Bowel Movements 6 Laboratory Tests 10/07/20 17:31: POC Whole Blood Glucose 155H 10/07/20 21:11: POC Whole Blood Glucose [Pending] 10/08/20 06:44: POC Whole Blood Glucose [Pending] 10/08/20 11:04: POC Whole Blood Glucose [Pending] Current Medications Medications (Trade) Dose Ordered Sig/Sera Route PRN Reason Start Time Stop Time Status Last Admin Dose Admin Acetaminophen (Tylenol) 650 mg Q4H PRN ORAL Mild Pain (Pain Scale 1-3) 09/18/20 23:45 10/18/20 23:44 10/08/20 06:53 Amlodipine Besylate (Norvasc) 5 mg DAILY ORAL 09/19/20 09:00 10/19/20 08:59 10/08/20 10:05 Anastrozole (Arimidex) 1 mg DAILY ORAL 09/19/20 09:00 10/19/20 08:59 10/08/20 10:06 Ascorbic Acid (Vitamin C) 500 mg TWICE A DAY ORAL 09/30/20 20:00 10/30/20 19:59 10/08/20 10:06 Budesonide/ Formoterol Fumarate (Symbicort 160/ 4.5) 2 puff BIDRT INH 10/02/20 11:00 12/31/20 10:59 10/08/20 10:43 Cetylpyridinium Chloride (Cepacol) 1 lozg EVERY 2 HOURS PRN LAURA For Cough 09/25/20 18:15 12/24/20 18:14 09/28/20 21:19 Chlorhexidine Gluconate (Brandee-Hex 2%) 1 applic DAILY@2000 TOPIC 09/30/20 20:00 12/29/20 19:59 10/07/20 21:09 Clonidine HCl (Catapres Tab) 0.1 mg Q4H PRN ORAL SBP > 160 09/19/20 17:15 12/18/20 17:14 09/24/20 03:09 Dextrose (Dextrose 50%) 25 ml Q30M PRN IV Hypoglycemia 10/02/20 22:00 12/31/20 21:59 Dextrose (Dextrose 50%) 50 ml Q30M PRN IV Hypoglycemia 10/02/20 22:00 12/31/20 21:59 Docusate Sodium (Colace) 250 mg DAILY ORAL 10/03/20 15:15 11/02/20 15:14 10/08/20 10:05 Enoxaparin Sodium (Lovenox) 40 mg BID SUBQ 09/30/20 20:00 12/29/20 19:59 10/08/20 10:14 Fluticasone Propionate (Flonase) 1 spray QHS NASAL 09/18/20 21:00 10/18/20 20:59 10/07/20 21:14 Guaifenesin (Mucinex ER) 600 mg TWICE A DAY ORAL 09/25/20 09:00 12/24/20 08:59 10/08/20 10:06 Guaifenesin/ Codeine Phosphate (Robitussin with codeine) 10 ml Q6H PRN ORAL For Cough 10/01/20 13:15 10/27/20 18:29 10/08/20 10:47 Hydroxyzine HCl (Atarax) 50 mg Q4H PRN ORAL Itching 09/19/20 06:15 10/19/20 06:14 10/08/20 10:47 Insulin Aspart (NovoLOG) BEFORE MEALS AND HS SUBQ 10/03/20 06:30 01/01/21 06:29 10/08/20 14:03 Insulin Detemir (Levemir) 10 units BEDTIME SUBQ 10/02/20 22:00 12/31/20 21:59 10/07/20 21:25 Insulin Detemir (Levemir) 15 units DAILY SUBQ 10/06/20 09:00 01/04/21 08:59 10/08/20 10:19 Lactobacillus Acidophilus (Culturelle) 1 tab TWICE A DAY ORAL 09/25/20 18:00 12/24/20 17:59 10/08/20 10:06 Lactulose (Cephulac) 20 gm BIAC PRN ORAL constipation 10/06/20 13:45 11/05/20 13:44 Lorazepam (Ativan) 1 mg Q4H PRN ORAL For Anxiety 10/06/20 09:15 10/13/20 09:14 10/07/20 12:29 Magnesium Hydroxide (Mom) 30 ml DAILYPRN PRN ORAL Constipation 10/03/20 15:15 11/02/20 15:14 10/07/20 11:37 Nystatin (Nystatin) 5 ml QID ORAL 10/02/20 09:00 10/09/20 08:59 10/08/20 14:00 Ondansetron HCl (Zofran) 4 mg Q6H PRN IVP Nausea & Vomiting 09/18/20 19:00 10/18/20 18:59 10/08/20 14:00 Pantoprazole (Protonix) 40 mg DAILY ORAL 09/19/20 09:00 10/19/20 08:59 10/08/20 10:05 Sertraline HCl (Zoloft) 100 mg DAILY ORAL 09/19/20 09:00 10/19/20 08:59 10/08/20 10:06 Temazepam (Restoril) 15 mg HSPRN PRN ORAL Insomnia 10/02/20 02:15 10/09/20 02:14 10/06/20 22:12 Vitamin B Complex (Vitamin B Complex) 1 tab DAILY ORAL 09/21/20 09:00 12/20/20 08:59 10/08/20 10:05 Vitamin D (Vitamin D) 1,000 unit DAILY ORAL 09/30/20 20:00 10/30/20 19:59 10/08/20 10:05 Zinc Sulfate (Zinc Sulfate) 220 mg DAILY ORAL 09/30/20 20:00 12/29/20 19:59 10/08/20 10:06 Assessment/Plan Assessment/Plan Pulmonary Progress Note Subjective ROS Limited/Unobtainable: No Constitutional: Denies: fever, chills Gastrointestinal/Abdominal: Denies: nausea, vomiting, diarrhea Musculoskeletal: Reports: pain - in chest Allergies: Coded Allergies: AMOXICILLIN (Verified Allergy, Mild, RASH HIVES, 09/29/13) ERYTHROMYCIN BASE (Unverified Allergy, Unknown, 10/13/17) IODINE (Verified Allergy, Unknown, 09/29/13) PENICILLINS (Verified Allergy, Unknown, RASH HIVES, 09/29/13) All Systems: reviewed and negative except above Subjective care noted noted congestion and sputum + COVID and on isolation remains on high FIO2 - NRB Objective Vital Signs noted Deferred Covid19 Laboratory Tests noted Medications noted Assessment/Plan Assessment/Plan ASSESSMENT: Chronic respiratory failure COPD exacerbation and facial cellulitis. diabetes, hypertension, chronic hypoxemia chronic debility, pulmonary congestion, COVID+ PLAN: remdesivir and decadron/ID sputum culture monitor imaging antibiotics per ID respiratory care as is home meds supportive care oxygen therapy and monitor prognosis guarded impression, plan, and exam edited and reviewed in detail care discussed with Werner Hussein MD Oct 08, 2020 15:54
[2020-10-08 20:00] VITALS: BP 126/64
[2020-10-08] MEDS: Dyna-Hex 2% Top Sol 2oz TOPIC SCH (20:58)
[2020-10-08] MEDS: LORazepam 1mg tab ORAL PRN (21:00)
[2020-10-08] MEDS: Flonase Nasal Inhaler 16gm NASAL SCH (21:30)
[2020-10-09] VITALS (7 sets, daily range): BP systolic 90–122; BP diastolic 50–68
--- NOTE | 2020-10-09 00:46 | Psychiatric Progress Note ---
Psychiatry Progress Note Psychiatry Progress Note Subjective the pt is complaining about rns poor insight depress and anxious Medications Current Medications Medications (Trade) Dose Ordered Sig/Sera Route PRN Reason Start Time Stop Time Status Last Admin Dose Admin Acetaminophen (Tylenol) 650 mg Q4H PRN ORAL Mild Pain (Pain Scale 1-3) 09/18/20 23:45 10/18/20 23:44 10/08/20 21:00 Amlodipine Besylate (Norvasc) 5 mg DAILY ORAL 09/19/20 09:00 10/19/20 08:59 10/08/20 10:05 Anastrozole (Arimidex) 1 mg DAILY ORAL 09/19/20 09:00 10/19/20 08:59 10/08/20 10:06 Ascorbic Acid (Vitamin C) 500 mg TWICE A DAY ORAL 09/30/20 20:00 10/30/20 19:59 10/08/20 18:00 Budesonide/ Formoterol Fumarate (Symbicort 160/ 4.5) 2 puff BIDRT INH 10/02/20 11:00 12/31/20 10:59 10/08/20 22:16 Cetylpyridinium Chloride (Cepacol) 1 lozg EVERY 2 HOURS PRN LAURA For Cough 09/25/20 18:15 12/24/20 18:14 09/28/20 21:19 Chlorhexidine Gluconate (Brandee-Hex 2%) 1 applic DAILY@2000 TOPIC 09/30/20 20:00 12/29/20 19:59 10/08/20 20:58 Clonidine HCl (Catapres Tab) 0.1 mg Q4H PRN ORAL SBP > 160 09/19/20 17:15 12/18/20 17:14 09/24/20 03:09 Dextrose (Dextrose 50%) 25 ml Q30M PRN IV Hypoglycemia 10/02/20 22:00 12/31/20 21:59 Dextrose (Dextrose 50%) 50 ml Q30M PRN IV Hypoglycemia 10/02/20 22:00 12/31/20 21:59 Docusate Sodium (Colace) 250 mg DAILY ORAL 10/03/20 15:15 11/02/20 15:14 10/08/20 10:05 Enoxaparin Sodium (Lovenox) 40 mg BID SUBQ 09/30/20 20:00 12/29/20 19:59 10/08/20 18:04 Fluticasone Propionate (Flonase) 1 spray QHS NASAL 09/18/20 21:00 10/18/20 20:59 10/08/20 21:30 Guaifenesin (Mucinex ER) 600 mg TWICE A DAY ORAL 09/25/20 09:00 12/24/20 08:59 10/08/20 18:00 Guaifenesin/ Codeine Phosphate (Robitussin with codeine) 10 ml Q6H PRN ORAL For Cough 10/01/20 13:15 10/27/20 18:29 10/08/20 20:59 Hydroxyzine HCl (Atarax) 50 mg Q4H PRN ORAL Itching 09/19/20 06:15 10/19/20 06:14 10/08/20 20:59 Insulin Aspart (NovoLOG) BEFORE MEALS AND HS SUBQ 10/03/20 06:30 01/01/21 06:29 10/08/20 14:03 Insulin Detemir (Levemir) 10 units BEDTIME SUBQ 10/02/20 22:00 12/31/20 21:59 10/08/20 22:16 Insulin Detemir (Levemir) 15 units DAILY SUBQ 10/06/20 09:00 01/04/21 08:59 10/08/20 10:19 Lactobacillus Acidophilus (Culturelle) 1 tab TWICE A DAY ORAL 09/25/20 18:00 12/24/20 17:59 10/08/20 17:59 Lactulose (Cephulac) 20 gm BIAC PRN ORAL constipation 10/06/20 13:45 11/05/20 13:44 Lorazepam (Ativan) 1 mg Q4H PRN ORAL For Anxiety 10/06/20 09:15 10/13/20 09:14 10/08/20 21:00 Magnesium Hydroxide (Mom) 30 ml DAILYPRN PRN ORAL Constipation 10/03/20 15:15 11/02/20 15:14 10/07/20 11:37 Nystatin (Nystatin) 5 ml QID ORAL 10/02/20 09:00 10/09/20 08:59 10/08/20 20:58 Ondansetron HCl (Zofran) 4 mg Q6H PRN IVP Nausea & Vomiting 09/18/20 19:00 10/18/20 18:59 10/08/20 21:01 Pantoprazole (Protonix) 40 mg DAILY ORAL 09/19/20 09:00 10/19/20 08:59 10/08/20 10:05 Sertraline HCl (Zoloft) 100 mg DAILY ORAL 09/19/20 09:00 10/19/20 08:59 10/08/20 10:06 Temazepam (Restoril) 15 mg HSPRN PRN ORAL Insomnia 10/02/20 02:15 10/09/20 02:14 10/06/20 22:12 Vitamin B Complex (Vitamin B Complex) 1 tab DAILY ORAL 09/21/20 09:00 12/20/20 08:59 10/08/20 10:05 Vitamin D (Vitamin D) 1,000 unit DAILY ORAL 09/30/20 20:00 10/30/20 19:59 10/08/20 10:05 Zinc Sulfate (Zinc Sulfate) 220 mg DAILY ORAL 09/30/20 20:00 12/29/20 19:59 10/08/20 10:06 Neurological/Psychiatric: Reports: no symptoms Allergies: Coded Allergies: AMOXICILLIN (Verified Allergy, Mild, RASH HIVES, 09/29/13) ERYTHROMYCIN BASE (Unverified Allergy, Unknown, 10/13/17) IODINE (Verified Allergy, Unknown, 09/29/13) PENICILLINS (Verified Allergy, Unknown, RASH HIVES, 09/29/13) Objective Data Height (Feet): 5 Height (Inches): 1.00 Weight (Pounds): 210 General Appearance: WD/WN, alert, mild distress Additional Comments: alert and oriented times self, place, and situation. Mood is anxious. Affect is blunted, congruent with mood. Thought process is concrete. Thought content, there is no suicidal or homicidal ideation. Cognition is intact. Insight and judgment is fair. Assessment/Plan [place] I: ASSESSMENT: [place] I Major depressive disorder. Anxiety disorder. [place] II borderline [place] III COPD. [place] IV Low. [place] V 50 PLAN: 1. Continue Zoloft. 2. ativan and ambien prn 3. The patient would like only melatonin. 4. Provide the patient with reality orientation and supportive therapy. Status: stable, progressing Status Narrative ASSESSMENT: [place] I Major depressive disorder. Anxiety disorder. [place] II borderline [place] III COPD. [place] IV Low. [place] V 50 PLAN: 1. Continue Zoloft. 2. ativan and ambien prn 3. The patient would like only melatonin. 4. Provide the patient with reality orientation and supportive therapy. Assessment/Plan: ASSESSMENT: [place] I Major depressive disorder. Anxiety disorder. [place] II borderline [place] III COPD. [place] IV Low. [place] V 50 PLAN: 1. Continue Zoloft. 2. ativan and ambien prn 3. The patient would like only melatonin. 4. Provide the patient with reality orientation and supportive therapy. Jayy Andino MD Oct 09, 2020 00:46
--- NOTE | 2020-10-09 04:28 | Cardiology Progress Note ---
Subjective DATE OF SERVICE: Oct 08, 2020 She still has congestion and pleuritic CP - unchanged. Remains significantly hypoxic on 15L high flow mask. Glucose was elevated due to steroids, now controlled. Covid 19 swab negative on admit; repeat PCR positive. CXR (10/02) No change; infiltrates bilaterally with left eff'n Objective Last 24 Hour Vital Signs Date Time Temp Pulse Resp B/P (MAP) Pulse Ox O2 Delivery O2 Flow Rate FiO2 10/09/20 00:30 99.3 91 10/09/20 00:00 99.3 111 22 101/59 (73) 91 10/08/20 21:58 96 14 97 100 10/08/20 21:30 105 22 126/64 98 10/08/20 21:00 105 22 126/64 98 10/08/20 21:00 Non-Rebreather 15.0 10/08/20 20:00 98.2 105 22 126/64 (84) 98 10/08/20 19:00 97 Non-Rebreather 15.0 100 10/08/20 10:05 86 128/89 10/08/20 09:00 Non-Rebreather 15.0 10/08/20 08:00 98.2 86 20 128/89 (102) 94 10/08/20 07:47 93 Non-Rebreather 15.0 100 10/08/20 07:40 99.7 10/08/20 07:23 99.7 ROS: unchanged from 09/18/20 HEENT: normal ENT inspection RHYTHM: NSR, ST, PACs LUNGS: bilateral rhonchi, coarse breath sounds CARDIAC: normal rate, regular rhythm, normal S1 and S2, gallop/S4 ABDOMEN: normal bowel sounds, non tender, soft, no organomegaly, other - obese EXTREMITIES: +1 edema Laboratory Tests Test 10/08/20 06:44 10/08/20 11:04 10/08/20 21:12 POC Whole Blood Glucose Pending Pending 133 MG/DL (74-106) H Assessment/Plan Assessment/Plan COVID19 pneumonia COPD exacerbation Hypoxia Acute bronchitis worsening. Ac/chr diastolic CHF with decreasing BNP now - clinically compensated. BNP decreased to 76. 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 O2 suppl bipap rx; taper as tolerated. Anti-coagulation Hold duretic based on current clinical parameters; trend BNP as needed. Titrate antiHTN regimen as needed. Check CXR Insulin coverage with additional levemir titration. Bowel regimen Werner Martinez MD Oct 09, 2020 04:28
[2020-10-09] MEDS: NovoLOG Insulin Flexpen SUBQ SCH ×4 (06:30→21:00)
[2020-10-09] MEDS: HydrOXYzine 50mg tab ORAL PRN ×2 (06:35→17:55)
[2020-10-09] MEDS: LORazepam 1mg tab ORAL PRN ×2 (06:36→17:56)
[2020-10-09] MEDS: Docusate 250mg cap ORAL SCH (09:00)
--- NOTE | 2020-10-09 10:23 | Diagnostic Imaging Report ---
Indication: Shortness of breath Technique: One view of the chest Comparison: 10/03/2020 Findings: Extensive right greater than left infiltrates again demonstrated. Dense consolidation of the right lung base appears slightly improved. The heart remains enlarged. Impression: Slight improvement in previously demonstrated dense right basilar consolidation. Otherwise little change
[2020-10-09] MEDS: guaiFENesin ER 600mg tab ORAL SCH ×2 (10:49→17:21)
[2020-10-09] MEDS: Ascorbic Acid 500mg tab ORAL SCH ×2 (10:49→17:15)
[2020-10-09] MEDS: Vitamin B Complex Tab ORAL SCH (10:49)
[2020-10-09] MEDS: Sertraline 100mg tab ORAL SCH (10:50)
[2020-10-09] MEDS: Zinc Sulfate 220mg ORAL SCH (10:50)
[2020-10-09] MEDS: Anastrazole 1mg tab ORAL SCH (10:50)
[2020-10-09] MEDS: Lactobacillus-GG tablet ORAL SCH ×2 (10:50→17:15)
[2020-10-09] MEDS: Vitamin D 1000 units Tab ORAL SCH (10:50)
[2020-10-09] MEDS: Enoxaparin 40mg Inj SUBQ SCH ×2 (10:54→17:16)
[2020-10-09] MEDS: Levemir Flexpen SUBQ SCH ×2 (10:55→21:00)
[2020-10-09] MEDS: guaiFENesin w/Codeine 5ml Liq ud ORAL PRN ×2 (11:00→17:59)
--- NOTE | 2020-10-09 12:12 | Infectious Diseases Prog Note ---
Assessment/Plan Assessment/Plan antibiotics : none A 1. Klebsiella urinary tract infection s/p rx 2. Facial cellulitis improving 3. COPD exacerbation. 4. diabetes mellitus 5. hypertension 6. CHF 7. breast cancer 8. COVID 19 pneumonia on 15 liters O2, saturation 97 % s/p remdesivir, dexamethasone P 1. start solumedrol 2. will follow up cultures Subjective Constitutional: Denies: fever, chills Respiratory: Reports: shortness of breath, dry cough Gastrointestinal/Abdominal: Denies: nausea, vomiting, diarrhea Musculoskeletal: Denies: pain Allergies: Coded Allergies: AMOXICILLIN (Verified Allergy, Mild, RASH HIVES, 09/29/13) ERYTHROMYCIN BASE (Unverified Allergy, Unknown, 10/13/17) IODINE (Verified Allergy, Unknown, 09/29/13) PENICILLINS (Verified Allergy, Unknown, RASH HIVES, 09/29/13) Objective Last 24 Hour Vital Signs Date Time Temp Pulse Resp B/P (MAP) Pulse Ox O2 Delivery O2 Flow Rate FiO2 10/09/20 11:28 100.5 10/09/20 09:00 111 118/61 10/09/20 08:00 100.5 111 22 118/61 (80) 96 10/09/20 07:06 112 20 122/68 100 10/09/20 06:36 112 20 122/68 100 10/09/20 05:00 99.6 20 100 10/09/20 04:00 101.9 112 21 122/68 (86) 89 10/09/20 00:30 99.3 91 10/09/20 00:00 99.3 111 22 101/59 (73) 91 10/08/20 23:00 112 14 97 100 10/08/20 21:58 96 14 97 100 10/08/20 21:30 105 22 126/64 98 10/08/20 21:00 105 22 126/64 98 10/08/20 21:00 Non-Rebreather 15.0 10/08/20 20:00 98.2 105 22 126/64 (84) 98 10/08/20 19:00 97 Non-Rebreather 15.0 100 Height (Feet): 5 Height (Inches): 1.00 Weight (Pounds): 210 Laboratory Tests Test 10/08/20 18:15 10/08/20 18:16 10/08/20 21:12 10/09/20 11:09 POC Whole Blood Glucose 69 MG/DL (74-106) L Pending 133 MG/DL (74-106) H Pending Current Medications Medications (Trade) Dose Ordered Sig/Sera Route PRN Reason Start Time Stop Time Status Last Admin Dose Admin Acetaminophen (Tylenol) 650 mg Q4H PRN ORAL Mild Pain (Pain Scale 1-3) 09/18/20 23:45 10/18/20 23:44 10/09/20 10:58 Amlodipine Besylate (Norvasc) 5 mg DAILY ORAL 09/19/20 09:00 10/19/20 08:59 10/08/20 10:05 Anastrozole (Arimidex) 1 mg DAILY ORAL 09/19/20 09:00 10/19/20 08:59 10/09/20 10:50 Ascorbic Acid (Vitamin C) 500 mg TWICE A DAY ORAL 09/30/20 20:00 10/30/20 19:59 10/09/20 10:49 Budesonide/ Formoterol Fumarate (Symbicort 160/ 4.5) 2 puff BIDRT INH 10/02/20 11:00 12/31/20 10:59 10/09/20 11:07 Cetylpyridinium Chloride (Cepacol) 1 lozg EVERY 2 HOURS PRN LAURA For Cough 09/25/20 18:15 12/24/20 18:14 09/28/20 21:19 Chlorhexidine Gluconate (Brandee-Hex 2%) 1 applic DAILY@2000 TOPIC 09/30/20 20:00 12/29/20 19:59 10/08/20 20:58 Clonidine HCl (Catapres Tab) 0.1 mg Q4H PRN ORAL SBP > 160 09/19/20 17:15 12/18/20 17:14 09/24/20 03:09 Dextrose (Dextrose 50%) 25 ml Q30M PRN IV Hypoglycemia 10/02/20 22:00 12/31/20 21:59 Dextrose (Dextrose 50%) 50 ml Q30M PRN IV Hypoglycemia 10/02/20 22:00 12/31/20 21:59 Docusate Sodium (Colace) 250 mg DAILY ORAL 10/03/20 15:15 11/02/20 15:14 10/08/20 10:05 Enoxaparin Sodium (Lovenox) 40 mg BID SUBQ 09/30/20 20:00 12/29/20 19:59 10/09/20 10:54 Fluticasone Propionate (Flonase) 1 spray QHS NASAL 09/18/20 21:00 10/18/20 20:59 10/08/20 21:30 Guaifenesin (Mucinex ER) 600 mg TWICE A DAY ORAL 09/25/20 09:00 12/24/20 08:59 10/09/20 10:49 Guaifenesin/ Codeine Phosphate (Robitussin with codeine) 10 ml Q6H PRN ORAL For Cough 10/01/20 13:15 10/27/20 18:29 10/09/20 11:00 Hydroxyzine HCl (Atarax) 50 mg Q4H PRN ORAL Itching 09/19/20 06:15 10/19/20 06:14 10/09/20 06:35 Insulin Aspart (NovoLOG) BEFORE MEALS AND HS SUBQ 10/03/20 06:30 01/01/21 06:29 10/09/20 11:14 Insulin Detemir (Levemir) 10 units BEDTIME SUBQ 10/02/20 22:00 12/31/20 21:59 10/08/20 22:16 Insulin Detemir (Levemir) 15 units DAILY SUBQ 10/06/20 09:00 01/04/21 08:59 10/09/20 10:55 Lactobacillus Acidophilus (Culturelle) 1 tab TWICE A DAY ORAL 09/25/20 18:00 12/24/20 17:59 10/09/20 10:50 Lactulose (Cephulac) 20 gm BIAC PRN ORAL constipation 10/06/20 13:45 11/05/20 13:44 Lorazepam (Ativan) 1 mg Q4H PRN ORAL For Anxiety 10/06/20 09:15 10/13/20 09:14 10/09/20 06:36 Magnesium Hydroxide (Mom) 30 ml DAILYPRN PRN ORAL Constipation 10/03/20 15:15 11/02/20 15:14 10/07/20 11:37 Ondansetron HCl (Zofran) 4 mg Q6H PRN IVP Nausea & Vomiting 09/18/20 19:00 10/18/20 18:59 10/08/20 21:01 Pantoprazole (Protonix) 40 mg DAILY ORAL 09/19/20 09:00 10/19/20 08:59 10/09/20 10:49 Sertraline HCl (Zoloft) 100 mg DAILY ORAL 09/19/20 09:00 10/19/20 08:59 10/09/20 10:50 Vitamin B Complex (Vitamin B Complex) 1 tab DAILY ORAL 09/21/20 09:00 12/20/20 08:59 10/09/20 10:49 Vitamin D (Vitamin D) 1,000 unit DAILY ORAL 09/30/20 20:00 10/30/20 19:59 10/09/20 10:50 Zinc Sulfate (Zinc Sulfate) 220 mg DAILY ORAL 09/30/20 20:00 12/29/20 19:59 10/09/20 10:50 Lo Delcid MD Oct 09, 2020 12:12
[2020-10-09] MEDS: Solu-MEDROL 40mg Inj IVP SCH ×2 (13:18→21:26)
--- NOTE | 2020-10-09 18:35 | Pulmonology Progress Note ---
Subjective ROS Limited/Unobtainable: Yes Constitutional: Denies: fever, chills Gastrointestinal/Abdominal: Denies: nausea, vomiting, diarrhea Musculoskeletal: Denies: pain Allergies: Coded Allergies: AMOXICILLIN (Verified Allergy, Mild, RASH HIVES, 09/29/13) ERYTHROMYCIN BASE (Unverified Allergy, Unknown, 10/13/17) IODINE (Verified Allergy, Unknown, 09/29/13) PENICILLINS (Verified Allergy, Unknown, RASH HIVES, 09/29/13) All Systems: reviewed and negative except above Objective Last 24 Hour Vital Signs Date Time Temp Pulse Resp B/P (MAP) Pulse Ox O2 Delivery O2 Flow Rate FiO2 10/09/20 17:56 113 22 107/68 95 10/09/20 17:05 95 10/09/20 16:00 97.9 113 22 107/68 (81) 88 10/09/20 15:20 102 13 95 100 10/09/20 12:36 112 18 93 100 10/09/20 12:00 99.1 101 20 90/51 (64) 100 10/09/20 11:28 100.5 10/09/20 09:00 Non-Rebreather 15.0 10/09/20 09:00 111 118/61 10/09/20 08:00 100.5 111 22 118/61 (80) 96 10/09/20 07:06 112 20 122/68 100 10/09/20 06:36 112 20 122/68 100 10/09/20 06:31 90 Bi-Pap 100 10/09/20 06:31 116 21 90 100 10/09/20 05:00 99.6 20 100 10/09/20 04:00 101.9 112 21 122/68 (86) 89 10/09/20 00:30 99.3 91 10/09/20 00:00 99.3 111 22 101/59 (73) 91 10/08/20 23:00 112 14 97 100 10/08/20 21:58 96 14 97 100 10/08/20 21:30 105 22 126/64 98 10/08/20 21:00 105 22 126/64 98 10/08/20 21:00 Non-Rebreather 15.0 10/08/20 20:00 98.2 105 22 126/64 (84) 98 10/08/20 19:00 97 Non-Rebreather 15.0 100 Intake and Output 10/08/20 10/09/20 19:00 07:00 Intake Total 600 ml 360 ml Output Total 900 ml Balance 600 ml -540 ml Intake Oral 600 ml Other 360 ml Output Urine Total 900 ml # Voids 1 # Bowel Movements 1 Laboratory Tests 10/08/20 21:12: POC Whole Blood Glucose 133H 10/09/20 11:09: POC Whole Blood Glucose [Pending] Current Medications Medications (Trade) Dose Ordered Sig/Sera Route PRN Reason Start Time Stop Time Status Last Admin Dose Admin Acetaminophen (Tylenol) 650 mg Q4H PRN ORAL Mild Pain (Pain Scale 1-3) 09/18/20 23:45 10/18/20 23:44 10/09/20 17:56 Amlodipine Besylate (Norvasc) 5 mg DAILY ORAL 09/19/20 09:00 10/19/20 08:59 10/08/20 10:05 Anastrozole (Arimidex) 1 mg DAILY ORAL 09/19/20 09:00 10/19/20 08:59 10/09/20 10:50 Ascorbic Acid (Vitamin C) 500 mg TWICE A DAY ORAL 09/30/20 20:00 10/30/20 19:59 10/09/20 17:15 Budesonide/ Formoterol Fumarate (Symbicort 160/ 4.5) 2 puff BIDRT INH 10/02/20 11:00 12/31/20 10:59 10/09/20 11:07 Cetylpyridinium Chloride (Cepacol) 1 lozg EVERY 2 HOURS PRN LAURA For Cough 09/25/20 18:15 12/24/20 18:14 09/28/20 21:19 Chlorhexidine Gluconate (Brandee-Hex 2%) 1 applic DAILY@1999 TOPIC 09/30/20 20:00 12/29/20 19:59 10/08/20 20:58 Clonidine HCl (Catapres Tab) 0.1 mg Q4H PRN ORAL SBP > 160 09/19/20 17:15 12/18/20 17:14 09/24/20 03:09 Dextrose (Dextrose 50%) 25 ml Q30M PRN IV Hypoglycemia 10/02/20 22:00 12/31/20 21:59 Dextrose (Dextrose 50%) 50 ml Q30M PRN IV Hypoglycemia 10/02/20 22:00 12/31/20 21:59 Docusate Sodium (Colace) 250 mg DAILY ORAL 10/03/20 15:15 11/02/20 15:14 10/08/20 10:05 Enoxaparin Sodium (Lovenox) 40 mg BID SUBQ 09/30/20 20:00 12/29/20 19:59 10/09/20 17:16 Fluticasone Propionate (Flonase) 1 spray QHS NASAL 09/18/20 21:00 10/18/20 20:59 10/08/20 21:30 Guaifenesin (Mucinex ER) 600 mg TWICE A DAY ORAL 09/25/20 09:00 12/24/20 08:59 10/09/20 17:21 Guaifenesin/ Codeine Phosphate (Robitussin with codeine) 10 ml Q6H PRN ORAL For Cough 10/01/20 13:15 10/27/20 18:29 10/09/20 17:59 Hydroxyzine HCl (Atarax) 50 mg Q4H PRN ORAL Itching 09/19/20 06:15 10/19/20 06:14 10/09/20 17:55 Insulin Aspart (NovoLOG) BEFORE MEALS AND HS SUBQ 10/03/20 06:30 01/01/21 06:29 10/09/20 17:39 Insulin Detemir (Levemir) 10 units BEDTIME SUBQ 10/02/20 22:00 12/31/20 21:59 10/08/20 22:16 Insulin Detemir (Levemir) 15 units DAILY SUBQ 10/06/20 09:00 01/04/21 08:59 10/09/20 10:55 Lactobacillus Acidophilus (Culturelle) 1 tab TWICE A DAY ORAL 09/25/20 18:00 12/24/20 17:59 10/09/20 17:15 Lactulose (Cephulac) 20 gm BIAC PRN ORAL constipation 10/06/20 13:45 11/05/20 13:44 Lorazepam (Ativan) 1 mg Q4H PRN ORAL For Anxiety 10/06/20 09:15 10/13/20 09:14 10/09/20 17:56 Magnesium Hydroxide (Mom) 30 ml DAILYPRN PRN ORAL Constipation 10/03/20 15:15 11/02/20 15:14 10/07/20 11:37 Methylprednisolone Sodium Succinate (Solu-MEDROL) 40 mg EVERY 12 HOURS IVP 10/09/20 12:15 01/07/21 12:14 10/09/20 13:18 Ondansetron HCl (Zofran) 4 mg Q6H PRN IVP Nausea & Vomiting 09/18/20 19:00 10/18/20 18:59 10/08/20 21:01 Pantoprazole (Protonix) 40 mg DAILY ORAL 09/19/20 09:00 10/19/20 08:59 10/09/20 10:49 Sertraline HCl (Zoloft) 100 mg DAILY ORAL 09/19/20 09:00 10/19/20 08:59 10/09/20 10:50 Vitamin B Complex (Vitamin B Complex) 1 tab DAILY ORAL 09/21/20 09:00 12/20/20 08:59 10/09/20 10:49 Vitamin D (Vitamin D) 1,000 unit DAILY ORAL 09/30/20 20:00 10/30/20 19:59 10/09/20 10:50 Zinc Sulfate (Zinc Sulfate) 220 mg DAILY ORAL 09/30/20 20:00 12/29/20 19:59 10/09/20 10:50 Assessment/Plan Assessment/Plan Pulmonary Progress Note Subjective ROS Limited/Unobtainable: No Constitutional: Denies: fever, chills Gastrointestinal/Abdominal: Denies: nausea, vomiting, diarrhea Musculoskeletal: Reports: pain - in chest Allergies: Coded Allergies: AMOXICILLIN (Verified Allergy, Mild, RASH HIVES, 09/29/13) ERYTHROMYCIN BASE (Unverified Allergy, Unknown, 10/13/17) IODINE (Verified Allergy, Unknown, 09/29/13) PENICILLINS (Verified Allergy, Unknown, RASH HIVES, 09/29/13) All Systems: reviewed and negative except above Subjective care noted noted congestion and sputum + COVID and on isolation remains on high FIO2 - NRB,CXR slight improvement Objective Vital Signs noted Deferred Covid19 Laboratory Tests noted Medications noted Assessment/Plan Assessment/Plan ASSESSMENT: Chronic respiratory failure COPD exacerbation and facial cellulitis. diabetes, hypertension, chronic hypoxemia chronic debility, pulmonary congestion, COVID+ PLAN: remdesivir and decadron/ID sputum culture monitor imaging antibiotics per ID respiratory care as is home meds supportive care oxygen therapy and monitor prognosis guarded impression, plan, and exam edited and reviewed in detail care discussed with Werner Hussein MD Oct 09, 2020 18:35
[2020-10-09] MEDS: Flonase Nasal Inhaler 16gm NASAL SCH (21:00)
[2020-10-09] MEDS: Dyna-Hex 2% Top Sol 2oz TOPIC SCH (21:27)
--- NOTE | 2020-10-09 22:55 | Psychiatric Progress Note ---
Psychiatry Progress Note Psychiatry Progress Note Subjective the pt is doing better still anxious no behavioral issues. Medications Current Medications Medications (Trade) Dose Ordered Sig/Sera Route PRN Reason Start Time Stop Time Status Last Admin Dose Admin Acetaminophen (Tylenol) 650 mg Q4H PRN ORAL Mild Pain (Pain Scale 1-3) 09/18/20 23:45 10/18/20 23:44 10/09/20 17:56 Amlodipine Besylate (Norvasc) 5 mg DAILY ORAL 09/19/20 09:00 10/19/20 08:59 10/08/20 10:05 Anastrozole (Arimidex) 1 mg DAILY ORAL 09/19/20 09:00 10/19/20 08:59 10/09/20 10:50 Ascorbic Acid (Vitamin C) 500 mg TWICE A DAY ORAL 09/30/20 20:00 10/30/20 19:59 10/09/20 17:15 Budesonide/ Formoterol Fumarate (Symbicort 160/ 4.5) 2 puff BIDRT INH 10/02/20 11:00 12/31/20 10:59 10/09/20 11:07 Cetylpyridinium Chloride (Cepacol) 1 lozg EVERY 2 HOURS PRN LAURA For Cough 09/25/20 18:15 12/24/20 18:14 09/28/20 21:19 Chlorhexidine Gluconate (Brandee-Hex 2%) 1 applic DAILY@2000 TOPIC 09/30/20 20:00 12/29/20 19:59 10/09/20 21:27 Clonidine HCl (Catapres Tab) 0.1 mg Q4H PRN ORAL SBP > 160 09/19/20 17:15 12/18/20 17:14 09/24/20 03:09 Dextrose (Dextrose 50%) 25 ml Q30M PRN IV Hypoglycemia 10/02/20 22:00 12/31/20 21:59 Dextrose (Dextrose 50%) 50 ml Q30M PRN IV Hypoglycemia 10/02/20 22:00 12/31/20 21:59 Docusate Sodium (Colace) 250 mg DAILY ORAL 10/03/20 15:15 11/02/20 15:14 10/08/20 10:05 Enoxaparin Sodium (Lovenox) 40 mg BID SUBQ 09/30/20 20:00 12/29/20 19:59 10/09/20 17:16 Fluticasone Propionate (Flonase) 1 spray QHS NASAL 09/18/20 21:00 10/18/20 20:59 10/08/20 21:30 Guaifenesin (Mucinex ER) 600 mg TWICE A DAY ORAL 09/25/20 09:00 12/24/20 08:59 10/09/20 17:21 Guaifenesin/ Codeine Phosphate (Robitussin with codeine) 10 ml Q6H PRN ORAL For Cough 10/01/20 13:15 10/27/20 18:29 10/09/20 17:59 Hydroxyzine HCl (Atarax) 50 mg Q4H PRN ORAL Itching 09/19/20 06:15 10/19/20 06:14 10/09/20 17:55 Insulin Aspart (NovoLOG) BEFORE MEALS AND HS SUBQ 10/03/20 06:30 01/01/21 06:29 10/09/20 17:39 Insulin Detemir (Levemir) 10 units BEDTIME SUBQ 10/02/20 22:00 12/31/20 21:59 10/08/20 22:16 Insulin Detemir (Levemir) 15 units DAILY SUBQ 10/06/20 09:00 01/04/21 08:59 10/09/20 10:55 Lactobacillus Acidophilus (Culturelle) 1 tab TWICE A DAY ORAL 09/25/20 18:00 12/24/20 17:59 10/09/20 17:15 Lactulose (Cephulac) 20 gm BIAC PRN ORAL constipation 10/06/20 13:45 11/05/20 13:44 Lorazepam (Ativan) 1 mg Q4H PRN ORAL For Anxiety 10/06/20 09:15 10/13/20 09:14 10/09/20 17:56 Magnesium Hydroxide (Mom) 30 ml DAILYPRN PRN ORAL Constipation 10/03/20 15:15 11/02/20 15:14 10/07/20 11:37 Methylprednisolone Sodium Succinate (Solu-MEDROL) 40 mg EVERY 12 HOURS IVP 10/09/20 12:15 01/07/21 12:14 10/09/20 21:26 Ondansetron HCl (Zofran) 4 mg Q6H PRN IVP Nausea & Vomiting 09/18/20 19:00 10/18/20 18:59 10/09/20 21:26 Pantoprazole (Protonix) 40 mg DAILY ORAL 09/19/20 09:00 10/19/20 08:59 10/09/20 10:49 Sertraline HCl (Zoloft) 100 mg DAILY ORAL 09/19/20 09:00 10/19/20 08:59 10/09/20 10:50 Vitamin B Complex (Vitamin B Complex) 1 tab DAILY ORAL 09/21/20 09:00 12/20/20 08:59 10/09/20 10:49 Vitamin D (Vitamin D) 1,000 unit DAILY ORAL 09/30/20 20:00 10/30/20 19:59 10/09/20 10:50 Zinc Sulfate (Zinc Sulfate) 220 mg DAILY ORAL 09/30/20 20:00 12/29/20 19:59 10/09/20 10:50 Neurological/Psychiatric: Reports: anxiety, depressed, emotional problems Allergies: Coded Allergies: AMOXICILLIN (Verified Allergy, Mild, RASH HIVES, 09/29/13) ERYTHROMYCIN BASE (Unverified Allergy, Unknown, 10/13/17) IODINE (Verified Allergy, Unknown, 09/29/13) PENICILLINS (Verified Allergy, Unknown, RASH HIVES, 09/29/13) Objective Data Height (Feet): 5 Height (Inches): 1.00 Weight (Pounds): 210 General Appearance: WD/WN, alert, mild distress Additional Comments: alert and oriented times self, place, and situation. Mood is anxious. Affect is blunted, congruent with mood. Thought process is concrete. Thought content, there is no suicidal or homicidal ideation. Cognition is intact. Insight and judgment is fair. Assessment/Plan [place]: ASSESSMENT: [place] I Major depressive disorder. Anxiety disorder. [place] II borderline [place] III COPD. [place] IV Low. [place] V 50 PLAN: 1. Continue Zoloft. 2. ativan and ambien prn 3. The patient would like only melatonin. 4. Provide the patient with reality orientation and supportive therapy. Status: stable, progressing Assessment/Plan: ASSESSMENT: [place] I Major depressive disorder. Anxiety disorder. [place] II borderline [place] III COPD. [place] IV Low. [place] V 50 PLAN: 1. Continue Zoloft. 2. Ativan and Ambien prn 3. The patient would like only melatonin. 4. Provide the patient with reality orientation and supportive therapy. Jayy Andino MD Oct 09, 2020 22:55
[2020-10-10] VITALS: BP 121/64
--- NOTE | 2020-10-10 02:43 | Cardiology Progress Note ---
Subjective DATE OF SERVICE: Oct 09, 2020 She still has congestion and pleuritic CP. Remains significantly hypoxic on 15L high flow mask. Glucose was elevated due to steroids, now controlled mostly with some low episodes. CXR (10/02) No change; infiltrates bilaterally with left eff'n Objective Last 24 Hour Vital Signs Date Time Temp Pulse Resp B/P (MAP) Pulse Ox O2 Delivery O2 Flow Rate FiO2 10/10/20 00:00 98.8 104 22 121/64 (83) 92 10/09/20 21:05 104 16 94 100 10/09/20 21:00 Non-Rebreather 15.0 10/09/20 20:00 98.5 110 22 93/50 (64) 88 10/09/20 19:27 92 Non-Rebreather 100 10/09/20 18:26 113 22 107/68 95 10/09/20 18:26 97.9 10/09/20 17:56 113 22 107/68 95 10/09/20 17:05 95 10/09/20 16:00 97.9 113 22 107/68 (81) 88 10/09/20 15:20 102 13 95 100 10/09/20 12:36 112 18 93 100 10/09/20 12:00 99.1 101 20 90/51 (64) 100 10/09/20 11:28 100.5 10/09/20 09:00 Non-Rebreather 15.0 10/09/20 09:00 111 118/61 10/09/20 08:00 100.5 111 22 118/61 (80) 96 10/09/20 07:06 112 20 122/68 100 10/09/20 06:36 112 20 122/68 100 10/09/20 06:31 90 Bi-Pap 100 10/09/20 06:31 116 21 90 100 10/09/20 05:00 99.6 20 100 10/09/20 04:00 101.9 112 21 122/68 (86) 89 ROS: unchanged from 09/18/20 HEENT: normal ENT inspection RHYTHM: NSR, ST, PACs LUNGS: bilateral rhonchi, coarse breath sounds CARDIAC: normal rate, regular rhythm, normal S1 and S2, gallop/S4 ABDOMEN: normal bowel sounds, non tender, soft, no organomegaly, other - obese EXTREMITIES: +1 edema Laboratory Tests Test 10/09/20 11:09 10/09/20 21:31 10/09/20 23:07 POC Whole Blood Glucose Pending 57 MG/DL (74-106) L 197 MG/DL (74-106) H Assessment/Plan Assessment/Plan COVID19 pneumonia COPD exacerbation Hypoxia Acute bronchitis worsening. Ac/chr diastolic CHF with decreasing BNP now - clinically compensated. 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 O2 suppl and bronchodilator rx Anti-coagulation IV Abx per ID Diuresis based on clinical parameters; trend BNP as needed. Titrate antiHTN regimen as needed. Insulin coverage with ongoing levemir titration - see orders Bowel regimen Werner Martinez MD Oct 10, 2020 02:43
[2020-10-10 04:00] VITALS: BP 129/76
[2020-10-10] MEDS: LORazepam 1mg tab ORAL PRN ×3 (04:40→21:32)
[2020-10-10] MEDS: NovoLOG Insulin Flexpen SUBQ SCH ×4 (06:27→21:00)
[2020-10-10 06:42] LABS: HEMATOCRIT 28.2 % (37.0-47.0); HEMOGLOBIN 9.2 G/DL (12.0-16.0); MEAN CORPUSCULAR VOLUME 86 FL (80-99); PLATELET COUNT 358 K/UL (150-450); RED BLOOD COUNT 3.28 M/UL (4.20-5.40); RED CELL DISTRIBUTION WIDTH 12.3 % (11.6-14.8); WHITE BLOOD COUNT 12.5 K/UL (4.8-10.8)
[2020-10-10 07:11] LABS: ALANINE AMINOTRANSFERASE 16 U/L (12-78); ALBUMIN 1.9 G/DL (3.4-5.0); ALKALINE PHOSPHATASE 110 U/L (46-116); ANION GAP 3 mmol/L (5-15); ASPARTATE AMINO TRANSFERASE 18 U/L (15-37); BILIRUBIN,TOTAL 0.3 MG/DL (0.2-1.0); BLOOD UREA NITROGEN 13 mg/dL (7-18); CALCIUM 8.6 MG/DL (8.5-10.1); CARBON DIOXIDE 34 MMOL/L (21-32); CHLORIDE 99 MMOL/L (98-107); CREATININE 0.9 MG/DL (0.55-1.30); POTASSIUM 4.5 MMOL/L (3.5-5.1); SODIUM 136 MMOL/L (136-145)
[2020-10-10 08:00] VITALS: BP 123/73
[2020-10-10] MEDS ORDERED: Levemir Flexpen SUBQ SCH (09:00)
[2020-10-10] MEDS: Zinc Sulfate 220mg ORAL SCH (09:52)
[2020-10-10] MEDS: Ascorbic Acid 500mg tab ORAL SCH ×2 (09:52→17:33)
[2020-10-10] MEDS: Vitamin B Complex Tab ORAL SCH (09:52)
[2020-10-10] MEDS: Sertraline 100mg tab ORAL SCH (09:52)
[2020-10-10] MEDS: Vitamin D 1000 units Tab ORAL SCH (09:52)
[2020-10-10] MEDS: Lactobacillus-GG tablet ORAL SCH ×2 (09:53→17:32)
[2020-10-10] MEDS: Solu-MEDROL 40mg Inj IVP SCH ×2 (09:53→21:32)
[2020-10-10] MEDS: guaiFENesin ER 600mg tab ORAL SCH ×2 (09:53→17:33)
[2020-10-10] MEDS: Anastrazole 1mg tab ORAL SCH (09:53)
[2020-10-10] MEDS: Docusate 250mg cap ORAL SCH (09:53)
[2020-10-10] MEDS: Enoxaparin 40mg Inj SUBQ SCH ×2 (09:56→17:33)
[2020-10-10 12:00] VITALS: BP 125/71
[2020-10-10 16:00] VITALS: BP 134/83
[2020-10-10] MEDS: HydrOXYzine 50mg tab ORAL PRN (17:32)
--- NOTE | 2020-10-10 18:44 | Pulmonology Progress Note ---
Subjective ROS Limited/Unobtainable: Yes Constitutional: Denies: fever, chills Gastrointestinal/Abdominal: Denies: nausea, vomiting, diarrhea Musculoskeletal: Denies: pain Allergies: Coded Allergies: AMOXICILLIN (Verified Allergy, Mild, RASH HIVES, 09/29/13) ERYTHROMYCIN BASE (Unverified Allergy, Unknown, 10/13/17) IODINE (Verified Allergy, Unknown, 09/29/13) PENICILLINS (Verified Allergy, Unknown, RASH HIVES, 09/29/13) All Systems: reviewed and negative except above Objective Last 24 Hour Vital Signs Date Time Temp Pulse Resp B/P (MAP) Pulse Ox O2 Delivery O2 Flow Rate FiO2 10/10/20 12:38 118 22 123/73 91 10/10/20 12:08 118 22 123/73 91 10/10/20 12:00 98.0 110 22 125/71 (89) 94 10/10/20 10:00 118 123/73 10/10/20 09:00 Non-Rebreather 15.0 10/10/20 08:00 97.6 118 22 123/73 (90) 91 10/10/20 07:35 91 Bi-Pap 100 10/10/20 04:00 98.2 118 22 129/76 (93) 92 10/10/20 00:00 98.8 104 22 121/64 (83) 92 10/09/20 21:05 104 16 94 100 10/09/20 21:00 Non-Rebreather 15.0 10/09/20 20:00 98.5 110 22 93/50 (64) 88 10/09/20 19:27 92 Non-Rebreather 100 Intake and Output 10/09/20 10/10/20 18:59 06:59 Intake Total 480 ml 520 ml Output Total 200 ml 600 ml Balance 280 ml -80 ml Intake Oral 480 ml 520 ml Output Urine Total 200 ml 600 ml # Voids 2 Laboratory Tests 10/09/20 21:31: POC Whole Blood Glucose 57L 10/09/20 23:07: POC Whole Blood Glucose 197H 10/10/20 04:30: White Blood Count 12.5H, Red Blood Count 3.28L, Hemoglobin 9.2L, Hematocrit 28.2L, Mean Corpuscular Volume 86, Mean Corpuscular Hemoglobin 27.9, Mean Corpuscular Hemoglobin Concent 32.5, Red Cell Distribution Width 12.3, Platelet Count 358, Mean Platelet Volume 6.9, Neutrophils (%) (Auto) , Lymphocytes (%) (Auto) , Monocytes (%) (Auto) , Eosinophils (%) (Auto) , Basophils (%) (Auto) , Differential Total Cells Counted 100, Neutrophils % (Manual) 92H, Lymphocytes % (Manual) 7L, Monocytes % (Manual) 1, Eosinophils % (Manual) 0, Basophils % (Manual) 0, Band Neutrophils 0, Platelet Estimate Adequate, Platelet Morphology Normal, Hypochromasia 1+, Sodium Level 136, Potassium Level 4.5, Chloride Level 99, Carbon Dioxide Level 34H, Anion Gap 3L, Blood Urea Nitrogen 13, Creatinine 0.9, Estimat Glomerular Filtration Rate > 60, Glucose Level 243H, Calcium Level 8.6, Magnesium Level 2.0, Total Bilirubin 0.3, Aspartate Amino Transf (AST/SGOT) 18, Alanine Aminotransferase (ALT/SGPT) 16, Alkaline Phosphatase 110, Pro-B-Type Natriuretic Peptide 139H, Total Protein 6.9, Albumin 1.9L, Globulin 5.0 10/10/20 06:11: POC Whole Blood Glucose 256H 10/10/20 09:48: POC Whole Blood Glucose 548*H 10/10/20 09:51: POC Whole Blood Glucose 495H 10/10/20 12:19: POC Whole Blood Glucose 396H Current Medications Medications (Trade) Dose Ordered Sig/Sera Route PRN Reason Start Time Stop Time Status Last Admin Dose Admin Acetaminophen (Tylenol) 650 mg Q4H PRN ORAL Mild Pain (Pain Scale 1-3) 09/18/20 23:45 10/18/20 23:44 10/10/20 17:33 Amlodipine Besylate (Norvasc) 5 mg DAILY ORAL 09/19/20 09:00 10/19/20 08:59 10/10/20 10:00 Anastrozole (Arimidex) 1 mg DAILY ORAL 09/19/20 09:00 10/19/20 08:59 10/10/20 09:53 Ascorbic Acid (Vitamin C) 500 mg TWICE A DAY ORAL 09/30/20 20:00 10/30/20 19:59 10/10/20 17:33 Budesonide/ Formoterol Fumarate (Symbicort 160/ 4.5) 2 puff BIDRT INH 10/02/20 11:00 12/31/20 10:59 10/10/20 12:08 Cetylpyridinium Chloride (Cepacol) 1 lozg EVERY 2 HOURS PRN LAURA For Cough 09/25/20 18:15 12/24/20 18:14 09/28/20 21:19 Chlorhexidine Gluconate (Brandee-Hex 2%) 1 applic DAILY@2000 TOPIC 09/30/20 20:00 12/29/20 19:59 10/09/20 21:27 Clonidine HCl (Catapres Tab) 0.1 mg Q4H PRN ORAL SBP > 160 09/19/20 17:15 12/18/20 17:14 09/24/20 03:09 Dextrose (Dextrose 50%) 25 ml Q30M PRN IV Hypoglycemia 10/02/20 22:00 12/31/20 21:59 Dextrose (Dextrose 50%) 50 ml Q30M PRN IV Hypoglycemia 10/02/20 22:00 12/31/20 21:59 Docusate Sodium (Colace) 250 mg DAILY ORAL 10/03/20 15:15 11/02/20 15:14 10/10/20 09:53 Enoxaparin Sodium (Lovenox) 40 mg BID SUBQ 09/30/20 20:00 12/29/20 19:59 10/10/20 17:33 Fluticasone Propionate (Flonase) 1 spray QHS NASAL 09/18/20 21:00 10/18/20 20:59 10/09/20 21:00 Guaifenesin (Mucinex ER) 600 mg TWICE A DAY ORAL 09/25/20 09:00 12/24/20 08:59 10/10/20 17:33 Guaifenesin/ Codeine Phosphate (Robitussin with codeine) 10 ml Q6H PRN ORAL For Cough 10/01/20 13:15 10/27/20 18:29 10/09/20 17:59 Hydroxyzine HCl (Atarax) 50 mg Q4H PRN ORAL Itching 09/19/20 06:15 10/19/20 06:14 10/10/20 17:32 Insulin Aspart (NovoLOG) BEFORE MEALS AND HS SUBQ 10/03/20 06:30 01/01/21 06:29 10/10/20 17:34 Insulin Detemir (Levemir) 10 units BEDTIME SUBQ 10/02/20 22:00 12/31/20 21:59 10/08/20 22:16 Insulin Detemir (Levemir) 12 units DAILY SUBQ 10/10/20 09:00 01/04/21 08:59 10/10/20 09:56 Lactobacillus Acidophilus (Culturelle) 1 tab TWICE A DAY ORAL 09/25/20 18:00 12/24/20 17:59 10/10/20 17:32 Lactulose (Cephulac) 20 gm BIAC PRN ORAL constipation 10/06/20 13:45 11/05/20 13:44 Lorazepam (Ativan) 1 mg Q4H PRN ORAL For Anxiety 10/06/20 09:15 10/13/20 09:14 10/10/20 12:08 Magnesium Hydroxide (Mom) 30 ml DAILYPRN PRN ORAL Constipation 10/03/20 15:15 11/02/20 15:14 10/07/20 11:37 Methylprednisolone Sodium Succinate (Solu-MEDROL) 40 mg EVERY 12 HOURS IVP 10/09/20 12:15 01/07/21 12:14 10/10/20 09:53 Ondansetron HCl (Zofran) 4 mg Q6H PRN IVP Nausea & Vomiting 09/18/20 19:00 10/18/20 18:59 10/09/20 21:26 Pantoprazole (Protonix) 40 mg DAILY ORAL 09/19/20 09:00 10/19/20 08:59 10/10/20 09:53 Sertraline HCl (Zoloft) 100 mg DAILY ORAL 09/19/20 09:00 10/19/20 08:59 10/10/20 09:52 Vitamin B Complex (Vitamin B Complex) 1 tab DAILY ORAL 09/21/20 09:00 12/20/20 08:59 10/10/20 09:52 Vitamin D (Vitamin D) 1,000 unit DAILY ORAL 09/30/20 20:00 10/30/20 19:59 10/10/20 09:52 Zinc Sulfate (Zinc Sulfate) 220 mg DAILY ORAL 09/30/20 20:00 12/29/20 19:59 10/10/20 09:52 Assessment/Plan Assessment/Plan Pulmonary Progress Note Subjective ROS Limited/Unobtainable: No Constitutional: Denies: fever, chills Gastrointestinal/Abdominal: Denies: nausea, vomiting, diarrhea Musculoskeletal: Reports: pain - in chest Allergies: Coded Allergies: AMOXICILLIN (Verified Allergy, Mild, RASH HIVES, 09/29/13) ERYTHROMYCIN BASE (Unverified Allergy, Unknown, 10/13/17) IODINE (Verified Allergy, Unknown, 09/29/13) PENICILLINS (Verified Allergy, Unknown, RASH HIVES, 09/29/13) All Systems: reviewed and negative except above Subjective care noted noted congestion and sputum + COVID and on isolation remains on high FIO2 - NRB,CXR slight improvement ID following Objective Vital Signs noted Deferred Covid19 Laboratory Tests noted Medications noted Assessment/Plan Assessment/Plan ASSESSMENT: Chronic respiratory failure COPD exacerbation and facial cellulitis. diabetes, hypertension, chronic hypoxemia chronic debility, pulmonary congestion, COVID+ PLAN: remdesivir and decadron/ID sputum culture monitor imaging antibiotics per ID respiratory care as is home meds supportive care oxygen therapy and monitor prognosis guarded impression, plan, and exam edited and reviewed in detail care discussed with Werner Hussein MD Oct 10, 2020 18:44
[2020-10-10 20:00] VITALS: BP 138/82
[2020-10-10] MEDS: Dyna-Hex 2% Top Sol 2oz TOPIC SCH (21:32)
[2020-10-10] MEDS: guaiFENesin w/Codeine 5ml Liq ud ORAL PRN (21:32)
[2020-10-10] MEDS: Flonase Nasal Inhaler 16gm NASAL SCH (21:33)
[2020-10-10] MEDS: Levemir Flexpen SUBQ SCH (21:51)
--- NOTE | 2020-10-10 22:55 | Cardiology Progress Note ---
Subjective DATE OF SERVICE: Oct 10, 2020 She still has congestion and pleuritic CP. Feels very SOB, and thinks she is dying. Remains significantly hypoxic on 15L high flow mask. Glucose now very elevated again due to steroids CXR (10/02) No change; infiltrates bilaterally with left eff'n Objective Last 24 Hour Vital Signs Date Time Temp Pulse Resp B/P (MAP) Pulse Ox O2 Delivery O2 Flow Rate FiO2 10/10/20 22:02 103 22 128/80 90 10/10/20 21:32 113 22 134/83 90 10/10/20 20:00 97.9 102 22 138/82 (100) 93 10/10/20 16:00 98.2 113 22 134/83 (100) 90 10/10/20 12:38 118 22 123/73 91 10/10/20 12:08 118 22 123/73 91 10/10/20 12:00 98.0 110 22 125/71 (89) 94 10/10/20 10:00 118 123/73 10/10/20 09:00 Non-Rebreather 15.0 10/10/20 08:00 97.6 118 22 123/73 (90) 91 10/10/20 07:35 91 Bi-Pap 100 10/10/20 04:00 98.2 118 22 129/76 (93) 92 10/10/20 00:00 98.8 104 22 121/64 (83) 92 ROS: unchanged from 09/18/20 HEENT: normal ENT inspection RHYTHM: NSR, ST, PACs LUNGS: bilateral rhonchi, coarse breath sounds CARDIAC: normal rate, regular rhythm, normal S1 and S2, gallop/S4 ABDOMEN: normal bowel sounds, non tender, soft, no organomegaly, other - obese EXTREMITIES: +1 edema Laboratory Tests Test 10/09/20 23:07 10/10/20 04:30 10/10/20 06:11 10/10/20 09:48 POC Whole Blood Glucose 197 MG/DL (74-106) H 256 MG/DL (74-106) H 548 MG/DL (74-106) *H White Blood Count 12.5 K/UL (4.8-10.8) H Red Blood Count 3.28 M/UL (4.20-5.40) L Hemoglobin 9.2 G/DL (12.0-16.0) L Hematocrit 28.2 % (37.0-47.0) L Mean Corpuscular Volume 86 FL (80-99) Mean Corpuscular Hemoglobin 27.9 PG (27.0-31.0) Mean Corpuscular Hemoglobin Concent 32.5 G/DL (32.0-36.0) Red Cell Distribution Width 12.3 % (11.6-14.8) Platelet Count 358 K/UL (150-450) Mean Platelet Volume 6.9 FL (6.5-10.1) Neutrophils (%) (Auto) % (45.0-75.0) Lymphocytes (%) (Auto) % (20.0-45.0) Monocytes (%) (Auto) % (1.0-10.0) Eosinophils (%) (Auto) % (0.0-3.0) Basophils (%) (Auto) % (0.0-2.0) Differential Total Cells Counted 100 Neutrophils % (Manual) 92 % (45-75) H Lymphocytes % (Manual) 7 % (20-45) L Monocytes % (Manual) 1 % (1-10) Eosinophils % (Manual) 0 % (0-3) Basophils % (Manual) 0 % (0-2) Band Neutrophils 0 % (0-8) Platelet Estimate Adequate Platelet Morphology Normal Hypochromasia 1+ Sodium Level 136 MMOL/L (136-145) Potassium Level 4.5 MMOL/L (3.5-5.1) Chloride Level 99 MMOL/L (98-107) Carbon Dioxide Level 34 MMOL/L (21-32) H Anion Gap 3 mmol/L (5-15) L Blood Urea Nitrogen 13 mg/dL (7-18) Creatinine 0.9 MG/DL (0.55-1.30) Estimat Glomerular Filtration Rate > 60 mL/min (>60) Glucose Level 243 MG/DL (74-106) H Calcium Level 8.6 MG/DL (8.5-10.1) Magnesium Level 2.0 MG/DL (1.8-2.4) Total Bilirubin 0.3 MG/DL (0.2-1.0) Aspartate Amino Transf (AST/SGOT) 18 U/L (15-37) Alanine Aminotransferase (ALT/SGPT) 16 U/L (12-78) Alkaline Phosphatase 110 U/L (46-116) Pro-B-Type Natriuretic Peptide 139 pg/mL (0-125) H Total Protein 6.9 G/DL (6.4-8.2) Albumin 1.9 G/DL (3.4-5.0) L Globulin 5.0 g/dL Test 10/10/20 09:51 10/10/20 12:19 POC Whole Blood Glucose 495 MG/DL (74-106) H 396 MG/DL (74-106) H Assessment/Plan Assessment/Plan COVID19 pneumonia COPD exacerbation Hypoxia Acute bronchitis worsening. Ac/chr diastolic CHF with decreasing BNP now - clinically compensated. Hx breast CA Paroxysmal atrial ectopy Hypertensive heart disease Sinus tachycardia improved UTI - K.pn (multi-drug resistant) IRDM uncontrolled on steroids Constipation Myalgias REMAINS CRITICAL AND GUARDED Continue IV steroids Anti-viral rx per ID - remdesivir. O2 suppl and bronchodilator rx Anti-coagulation IV Abx per ID Diuresis based on clinical parameters; trend BNP as needed. Titrate antiHTN regimen as needed. Insulin coverage with ongoing levemir titration - see orders Bowel regimen Werner Martinez MD Oct 10, 2020 22:55
[2020-10-11] VITALS: BP 117/70
[2020-10-11] MEDS ORDERED: Cyclobenzaprine 10mg Tab ORAL PRN
[2020-10-11 04:00] VITALS: BP 124/73
--- NOTE | 2020-10-11 04:06 | Cardiology Progress Note ---
Subjective DATE OF SERVICE: Oct 11, 2020 Remaining with congestion and pleuritic CP. Feels very SOB, and still thinks she is dying. Remains significantly hypoxic on 15L high flow mask. Glucose iremains elevated due to steroids - insulin advanced yesterday Monitor: sinus tachycardia with arrhythmia and PAC's. CXR (10/02) No change; infiltrates bilaterally with left eff'n Objective Last 24 Hour Vital Signs Date Time Temp Pulse Resp B/P (MAP) Pulse Ox O2 Delivery O2 Flow Rate FiO2 10/11/20 00:00 98.2 106 22 117/70 (86) 92 10/10/20 22:25 82 19 92 100 10/10/20 22:02 103 22 128/80 90 10/10/20 21:32 113 22 134/83 90 10/10/20 21:00 Bi-pap 10/10/20 20:00 97.9 102 22 138/82 (100) 93 10/10/20 19:00 92 Non-Rebreather 15.0 100 10/10/20 16:00 98.2 113 22 134/83 (100) 90 10/10/20 12:38 118 22 123/73 91 10/10/20 12:08 118 22 123/73 91 10/10/20 12:00 98.0 110 22 125/71 (89) 94 10/10/20 10:00 118 123/73 10/10/20 09:00 Non-Rebreather 15.0 10/10/20 08:00 97.6 118 22 123/73 (90) 91 10/10/20 07:35 91 Bi-Pap 100 ROS: unchanged from 09/18/20 HEENT: normal ENT inspection RHYTHM: NSR, ST, PACs LUNGS: bilateral rhonchi, coarse breath sounds CARDIAC: normal rate, regular rhythm, normal S1 and S2, gallop/S4 ABDOMEN: normal bowel sounds, non tender, soft, no organomegaly, other - obese EXTREMITIES: +1 edema Laboratory Tests Test 10/10/20 04:30 10/10/20 06:11 10/10/20 09:48 10/10/20 09:51 White Blood Count 12.5 K/UL (4.8-10.8) H Red Blood Count 3.28 M/UL (4.20-5.40) L Hemoglobin 9.2 G/DL (12.0-16.0) L Hematocrit 28.2 % (37.0-47.0) L Mean Corpuscular Volume 86 FL (80-99) Mean Corpuscular Hemoglobin 27.9 PG (27.0-31.0) Mean Corpuscular Hemoglobin Concent 32.5 G/DL (32.0-36.0) Red Cell Distribution Width 12.3 % (11.6-14.8) Platelet Count 358 K/UL (150-450) Mean Platelet Volume 6.9 FL (6.5-10.1) Neutrophils (%) (Auto) % (45.0-75.0) Lymphocytes (%) (Auto) % (20.0-45.0) Monocytes (%) (Auto) % (1.0-10.0) Eosinophils (%) (Auto) % (0.0-3.0) Basophils (%) (Auto) % (0.0-2.0) Differential Total Cells Counted 100 Neutrophils % (Manual) 92 % (45-75) H Lymphocytes % (Manual) 7 % (20-45) L Monocytes % (Manual) 1 % (1-10) Eosinophils % (Manual) 0 % (0-3) Basophils % (Manual) 0 % (0-2) Band Neutrophils 0 % (0-8) Platelet Estimate Adequate Platelet Morphology Normal Hypochromasia 1+ Sodium Level 136 MMOL/L (136-145) Potassium Level 4.5 MMOL/L (3.5-5.1) Chloride Level 99 MMOL/L (98-107) Carbon Dioxide Level 34 MMOL/L (21-32) H Anion Gap 3 mmol/L (5-15) L Blood Urea Nitrogen 13 mg/dL (7-18) Creatinine 0.9 MG/DL (0.55-1.30) Estimat Glomerular Filtration Rate > 60 mL/min (>60) Glucose Level 243 MG/DL (74-106) H Calcium Level 8.6 MG/DL (8.5-10.1) Magnesium Level 2.0 MG/DL (1.8-2.4) Total Bilirubin 0.3 MG/DL (0.2-1.0) Aspartate Amino Transf (AST/SGOT) 18 U/L (15-37) Alanine Aminotransferase (ALT/SGPT) 16 U/L (12-78) Alkaline Phosphatase 110 U/L (46-116) Pro-B-Type Natriuretic Peptide 139 pg/mL (0-125) H Total Protein 6.9 G/DL (6.4-8.2) Albumin 1.9 G/DL (3.4-5.0) L Globulin 5.0 g/dL POC Whole Blood Glucose 256 MG/DL (74-106) H 548 MG/DL (74-106) *H 495 MG/DL (74-106) H Test 10/10/20 12:19 POC Whole Blood Glucose 396 MG/DL (74-106) H Assessment/Plan Assessment/Plan COVID19 pneumonia COPD exacerbation Hypoxia Paroxysmal atrial ectopy Sinus tachyarrhythmias Acute bronchitis worsening. Ac/chr diastolic CHF with decreasing BNP now - clinically compensated. Hx breast CA Paroxysmal atrial ectopy Hypertensive heart disease Sinus tachycardia improved UTI - K.pn (multi-drug resistant) IRDM uncontrolled on steroids Constipation Myalgias REMAINS CRITICAL AND GUARDED Continue IV steroids Anti-viral rx per ID - remdesivir. O2 suppl and bronchodilator rx Anti-coagulation IV Abx per ID Diuresis based on clinical parameters; trend BNP as needed. Titrate antiHTN regimen as needed - will replace amlodipine with diltiazem for atrial arrhythmia management. Insulin coverage with ongoing levemir titration - see orders Bowel regimen Werner Martinez MD Oct 11, 2020 04:06
[2020-10-11] MEDS: guaiFENesin w/Codeine 5ml Liq ud ORAL PRN (05:14)
[2020-10-11] MEDS: LORazepam 1mg tab ORAL PRN ×2 (05:14→18:46)
[2020-10-11] MEDS: NovoLOG Insulin Flexpen SUBQ SCH ×4 (05:59→21:00)
[2020-10-11] MEDS ORDERED: Levalbuterol Inh UD 1.25mg/0.5ml HHN PRN (07:30)
[2020-10-11 08:00] VITALS: BP 140/93
[2020-10-11] MEDS: Lactobacillus-GG tablet ORAL SCH ×2 (08:56→17:55)
[2020-10-11] MEDS: Ascorbic Acid 500mg tab ORAL SCH ×2 (08:56→17:55)
[2020-10-11] MEDS: Vitamin D 1000 units Tab ORAL SCH (08:56)
[2020-10-11] MEDS: Vitamin B Complex Tab ORAL SCH (08:56)
[2020-10-11] MEDS: guaiFENesin ER 600mg tab ORAL SCH ×2 (08:56→17:55)
[2020-10-11] MEDS: Zinc Sulfate 220mg ORAL SCH (08:56)
[2020-10-11] MEDS: Sertraline 100mg tab ORAL SCH (08:56)
[2020-10-11] MEDS: Nystatin Susp 500,000 units/5ml ORAL SCH ×4 (08:56→21:11)
[2020-10-11] MEDS: Anastrazole 1mg tab ORAL SCH (08:57)
[2020-10-11] MEDS: Docusate 250mg cap ORAL SCH (08:57)
[2020-10-11] MEDS: dilTIAZem HCl ER 180mg cap ORAL SCH ×2 (08:57→21:11)
[2020-10-11] MEDS: Solu-MEDROL 40mg Inj IVP SCH ×2 (08:57→21:11)
[2020-10-11] MEDS: Levemir Flexpen SUBQ SCH ×2 (08:59→21:56)
[2020-10-11] MEDS: Enoxaparin 40mg Inj SUBQ SCH ×2 (09:00→17:57)
[2020-10-11 12:00] VITALS: BP 135/77
--- NOTE | 2020-10-11 12:23 | Infectious Diseases Prog Note ---
Assessment/Plan Assessment/Plan antibiotics : none A 1. Klebsiella urinary tract infection s/p rx 2. Facial cellulitis improving 3. COPD exacerbation. 4. diabetes mellitus 5. hypertension 6. CHF 7. breast cancer 8. COVID 19 pneumonia on 15 liters O2, saturation 91 % s/p remdesivir, dexamethasone P 1. continue solumedrol 2. will follow up cultures Subjective ROS Limited/Unobtainable: Yes Allergies: Coded Allergies: AMOXICILLIN (Verified Allergy, Mild, RASH HIVES, 09/29/13) ERYTHROMYCIN BASE (Unverified Allergy, Unknown, 10/13/17) IODINE (Verified Allergy, Unknown, 09/29/13) PENICILLINS (Verified Allergy, Unknown, RASH HIVES, 09/29/13) Objective Last 24 Hour Vital Signs Date Time Temp Pulse Resp B/P (MAP) Pulse Ox O2 Delivery O2 Flow Rate FiO2 10/11/20 10:14 99 33 90 100 10/11/20 09:00 Bi-pap 10/11/20 08:57 110 140/93 10/11/20 08:00 97.1 110 21 140/93 (109) 92 10/11/20 07:46 93 10/11/20 07:46 93 Non-Rebreather 15.0 100 10/11/20 05:44 93 19 117/70 92 10/11/20 05:14 93 19 117/70 92 10/11/20 04:00 98.3 104 22 124/73 (90) 92 10/11/20 02:30 93 19 92 100 10/11/20 00:00 98.2 106 22 117/70 (86) 92 10/10/20 22:25 82 19 92 100 10/10/20 22:02 103 22 128/80 90 10/10/20 21:32 113 22 134/83 90 10/10/20 21:00 Bi-pap 10/10/20 20:00 97.9 102 22 138/82 (100) 93 10/10/20 19:00 92 Non-Rebreather 15.0 100 10/10/20 16:00 98.2 113 22 134/83 (100) 90 10/10/20 12:38 118 22 123/73 91 Height (Feet): 5 Height (Inches): 1.00 Weight (Pounds): 210 Laboratory Tests Test 10/11/20 05:21 10/11/20 11:56 POC Whole Blood Glucose 361 MG/DL (74-106) H Pending Current Medications Medications (Trade) Dose Ordered Sig/Sera Route PRN Reason Start Time Stop Time Status Last Admin Dose Admin Acetaminophen (Tylenol) 650 mg Q4H PRN ORAL Mild Pain (Pain Scale 1-3) 09/18/20 23:45 10/18/20 23:44 10/11/20 05:15 Anastrozole (Arimidex) 1 mg DAILY ORAL 09/19/20 09:00 10/19/20 08:59 10/11/20 08:57 Ascorbic Acid (Vitamin C) 500 mg TWICE A DAY ORAL 09/30/20 20:00 10/30/20 19:59 10/11/20 08:56 Budesonide/ Formoterol Fumarate (Symbicort 160/ 4.5) 2 puff BIDRT INH 10/02/20 11:00 12/31/20 10:59 10/10/20 21:33 Cetylpyridinium Chloride (Cepacol) 1 lozg EVERY 2 HOURS PRN LAURA For Cough 09/25/20 18:15 12/24/20 18:14 09/28/20 21:19 Chlorhexidine Gluconate (Brandee-Hex 2%) 1 applic DAILY@1999 TOPIC 09/30/20 20:00 12/29/20 19:59 10/10/20 21:32 Clonidine HCl (Catapres Tab) 0.1 mg Q4H PRN ORAL SBP > 160 09/19/20 17:15 12/18/20 17:14 09/24/20 03:09 Cyclobenzaprine HCl (Flexeril) 10 mg TIDPRN PRN ORAL Muscle Spasm 10/11/20 00:00 10/18/20 00:00 Dextrose (Dextrose 50%) 25 ml Q30M PRN IV Hypoglycemia 10/02/20 22:00 12/31/20 21:59 Dextrose (Dextrose 50%) 50 ml Q30M PRN IV Hypoglycemia 10/02/20 22:00 12/31/20 21:59 Diltiazem HCl (Cardizem ER) 180 mg BID@0900,2100 ORAL 10/11/20 09:00 11/10/20 08:59 10/11/20 08:57 Docusate Sodium (Colace) 250 mg DAILY ORAL 10/03/20 15:15 11/02/20 15:14 10/11/20 08:57 Enoxaparin Sodium (Lovenox) 40 mg BID SUBQ 09/30/20 20:00 12/29/20 19:59 10/11/20 09:00 Fluticasone Propionate (Flonase) 1 spray QHS NASAL 09/18/20 21:00 10/18/20 20:59 10/10/20 21:33 Guaifenesin (Mucinex ER) 600 mg TWICE A DAY ORAL 09/25/20 09:00 12/24/20 08:59 10/11/20 08:56 Guaifenesin/ Codeine Phosphate (Robitussin with codeine) 10 ml Q6H PRN ORAL For Cough 10/01/20 13:15 10/27/20 18:29 10/11/20 05:14 Hydroxyzine HCl (Atarax) 50 mg Q4H PRN ORAL Itching 09/19/20 06:15 10/19/20 06:14 10/10/20 17:32 Insulin Aspart (NovoLOG) BEFORE MEALS AND HS SUBQ 10/03/20 06:30 01/01/21 06:29 10/11/20 05:59 Insulin Detemir (Levemir) 15 units BEDTIME SUBQ 10/11/20 21:00 12/31/20 21:59 Insulin Detemir (Levemir) 18 units DAILY SUBQ 10/11/20 09:00 01/09/21 08:59 10/11/20 08:59 Lactobacillus Acidophilus (Culturelle) 1 tab TWICE A DAY ORAL 09/25/20 18:00 12/24/20 17:59 10/11/20 08:56 Levalbuterol HCl (Xopenex) 1.25 mg TIDRT PRN HHN Shortness of Breath 10/11/20 07:30 10/16/20 07:29 10/11/20 07:42 Lorazepam (Ativan) 1 mg Q4H PRN ORAL For Anxiety 10/06/20 09:15 10/13/20 09:14 10/11/20 05:14 Magnesium Hydroxide (Mom) 30 ml DAILYPRN PRN ORAL Constipation 10/03/20 15:15 11/02/20 15:14 10/07/20 11:37 Methylprednisolone Sodium Succinate (Solu-MEDROL) 40 mg EVERY 12 HOURS IVP 10/09/20 12:15 01/07/21 12:14 10/11/20 08:57 Nystatin (Nystatin) 5 ml QID ORAL 10/11/20 09:00 10/18/20 08:59 10/11/20 08:56 Ondansetron HCl (Zofran) 4 mg Q6H PRN IVP Nausea & Vomiting 09/18/20 19:00 10/18/20 18:59 10/11/20 05:14 Pantoprazole (Protonix) 40 mg DAILY ORAL 09/19/20 09:00 10/19/20 08:59 10/11/20 08:56 Sertraline HCl (Zoloft) 100 mg DAILY ORAL 09/19/20 09:00 10/19/20 08:59 10/11/20 08:56 Vitamin B Complex (Vitamin B Complex) 1 tab DAILY ORAL 09/21/20 09:00 12/20/20 08:59 10/11/20 08:56 Vitamin D (Vitamin D) 1,000 unit DAILY ORAL 09/30/20 20:00 10/30/20 19:59 10/11/20 08:56 Zinc Sulfate (Zinc Sulfate) 220 mg DAILY ORAL 09/30/20 20:00 12/29/20 19:59 10/11/20 08:56 Lo Delcid MD Oct 11, 2020 12:23
[2020-10-11 16:00] VITALS: BP 151/72
--- NOTE | 2020-10-11 17:53 | Pulmonology Progress Note ---
Subjective ROS Limited/Unobtainable: Yes Constitutional: Denies: fever, chills Gastrointestinal/Abdominal: Denies: nausea, vomiting, diarrhea Musculoskeletal: Denies: pain Allergies: Coded Allergies: AMOXICILLIN (Verified Allergy, Mild, RASH HIVES, 09/29/13) ERYTHROMYCIN BASE (Unverified Allergy, Unknown, 10/13/17) IODINE (Verified Allergy, Unknown, 09/29/13) PENICILLINS (Verified Allergy, Unknown, RASH HIVES, 09/29/13) All Systems: reviewed and negative except above Objective Last 24 Hour Vital Signs Date Time Temp Pulse Resp B/P (MAP) Pulse Ox O2 Delivery O2 Flow Rate FiO2 10/11/20 16:00 97.1 79 19 151/72 (98) 91 10/11/20 15:50 98 29 91 100 10/11/20 12:00 98.7 89 21 135/77 (96) 93 10/11/20 10:50 101 28 93 100 10/11/20 10:14 99 33 90 100 10/11/20 09:00 Bi-pap 10/11/20 08:57 110 140/93 10/11/20 08:00 97.1 110 21 140/93 (109) 92 10/11/20 07:46 93 10/11/20 07:46 93 Non-Rebreather 15.0 100 10/11/20 05:44 93 19 117/70 92 10/11/20 05:14 93 19 117/70 92 10/11/20 04:00 98.3 104 22 124/73 (90) 92 10/11/20 02:30 93 19 92 100 10/11/20 00:00 98.2 106 22 117/70 (86) 92 10/10/20 22:25 82 19 92 100 10/10/20 22:02 103 22 128/80 90 10/10/20 21:32 113 22 134/83 90 10/10/20 21:00 Bi-pap 10/10/20 20:00 97.9 102 22 138/82 (100) 93 10/10/20 19:00 92 Non-Rebreather 15.0 100 Intake and Output 10/10/20 10/11/20 19:00 07:00 Intake Total 500 ml Output Total 700 ml 1100 ml Balance -200 ml -1100 ml Intake Oral 500 ml Output Urine Total 700 ml 1100 ml # Voids 3 Laboratory Tests 10/11/20 05:21: POC Whole Blood Glucose 361H 10/11/20 11:56: POC Whole Blood Glucose [Pending] 10/11/20 16:57: POC Whole Blood Glucose [Pending] Current Medications Medications (Trade) Dose Ordered Sig/Sera Route PRN Reason Start Time Stop Time Status Last Admin Dose Admin Acetaminophen (Tylenol) 650 mg Q4H PRN ORAL Mild Pain (Pain Scale 1-3) 09/18/20 23:45 10/18/20 23:44 10/11/20 05:15 Anastrozole (Arimidex) 1 mg DAILY ORAL 09/19/20 09:00 10/19/20 08:59 10/11/20 08:57 Ascorbic Acid (Vitamin C) 500 mg TWICE A DAY ORAL 09/30/20 20:00 10/30/20 19:59 10/11/20 08:56 Budesonide/ Formoterol Fumarate (Symbicort 160/ 4.5) 2 puff BIDRT INH 10/02/20 11:00 12/31/20 10:59 10/10/20 21:33 Cetylpyridinium Chloride (Cepacol) 1 lozg EVERY 2 HOURS PRN LAURA For Cough 09/25/20 18:15 12/24/20 18:14 09/28/20 21:19 Chlorhexidine Gluconate (Brandee-Hex 2%) 1 applic DAILY@1999 TOPIC 09/30/20 20:00 12/29/20 19:59 10/10/20 21:32 Clonidine HCl (Catapres Tab) 0.1 mg Q4H PRN ORAL SBP > 160 09/19/20 17:15 12/18/20 17:14 09/24/20 03:09 Cyclobenzaprine HCl (Flexeril) 10 mg TIDPRN PRN ORAL Muscle Spasm 10/11/20 00:00 10/18/20 00:00 Dextrose (Dextrose 50%) 25 ml Q30M PRN IV Hypoglycemia 10/02/20 22:00 12/31/20 21:59 Dextrose (Dextrose 50%) 50 ml Q30M PRN IV Hypoglycemia 10/02/20 22:00 12/31/20 21:59 Diltiazem HCl (Cardizem ER) 180 mg BID@0900,2100 ORAL 10/11/20 09:00 11/10/20 08:59 10/11/20 08:57 Docusate Sodium (Colace) 250 mg DAILY ORAL 10/03/20 15:15 11/02/20 15:14 10/11/20 08:57 Enoxaparin Sodium (Lovenox) 40 mg BID SUBQ 09/30/20 20:00 12/29/20 19:59 10/11/20 09:00 Fluticasone Propionate (Flonase) 1 spray QHS NASAL 09/18/20 21:00 10/18/20 20:59 10/10/20 21:33 Guaifenesin (Mucinex ER) 600 mg TWICE A DAY ORAL 09/25/20 09:00 12/24/20 08:59 10/11/20 08:56 Guaifenesin/ Codeine Phosphate (Robitussin with codeine) 10 ml Q6H PRN ORAL For Cough 10/01/20 13:15 10/27/20 18:29 10/11/20 05:14 Hydroxyzine HCl (Atarax) 50 mg Q4H PRN ORAL Itching 09/19/20 06:15 10/19/20 06:14 10/10/20 17:32 Insulin Aspart (NovoLOG) BEFORE MEALS AND HS SUBQ 10/03/20 06:30 01/01/21 06:29 10/11/20 05:59 Insulin Detemir (Levemir) 15 units BEDTIME SUBQ 10/11/20 21:00 12/31/20 21:59 Insulin Detemir (Levemir) 18 units DAILY SUBQ 10/11/20 09:00 01/09/21 08:59 10/11/20 08:59 Lactobacillus Acidophilus (Culturelle) 1 tab TWICE A DAY ORAL 09/25/20 18:00 12/24/20 17:59 10/11/20 08:56 Levalbuterol HCl (Xopenex) 1.25 mg TIDRT PRN HHN Shortness of Breath 10/11/20 07:30 10/16/20 07:29 10/11/20 07:42 Lorazepam (Ativan) 1 mg Q4H PRN ORAL For Anxiety 10/06/20 09:15 10/13/20 09:14 10/11/20 05:14 Magnesium Hydroxide (Mom) 30 ml DAILYPRN PRN ORAL Constipation 10/03/20 15:15 11/02/20 15:14 10/07/20 11:37 Methylprednisolone Sodium Succinate (Solu-MEDROL) 40 mg EVERY 12 HOURS IVP 10/09/20 12:15 01/07/21 12:14 10/11/20 08:57 Nystatin (Nystatin) 5 ml QID ORAL 10/11/20 09:00 10/18/20 08:59 10/11/20 13:06 Ondansetron HCl (Zofran) 4 mg Q6H PRN IVP Nausea & Vomiting 09/18/20 19:00 10/18/20 18:59 10/11/20 05:14 Pantoprazole (Protonix) 40 mg DAILY ORAL 09/19/20 09:00 10/19/20 08:59 10/11/20 08:56 Sertraline HCl (Zoloft) 100 mg DAILY ORAL 09/19/20 09:00 10/19/20 08:59 10/11/20 08:56 Vitamin B Complex (Vitamin B Complex) 1 tab DAILY ORAL 09/21/20 09:00 12/20/20 08:59 10/11/20 08:56 Vitamin D (Vitamin D) 1,000 unit DAILY ORAL 09/30/20 20:00 10/30/20 19:59 10/11/20 08:56 Zinc Sulfate (Zinc Sulfate) 220 mg DAILY ORAL 09/30/20 20:00 12/29/20 19:59 10/11/20 08:56 Assessment/Plan Assessment/Plan Pulmonary Progress Note Subjective ROS Limited/Unobtainable: No Constitutional: Denies: fever, chills Gastrointestinal/Abdominal: Denies: nausea, vomiting, diarrhea Musculoskeletal: Reports: pain - in chest Respiratory: Persistent SOB Allergies: Coded Allergies: AMOXICILLIN (Verified Allergy, Mild, RASH HIVES, 09/29/13) ERYTHROMYCIN BASE (Unverified Allergy, Unknown, 10/13/17) IODINE (Verified Allergy, Unknown, 09/29/13) PENICILLINS (Verified Allergy, Unknown, RASH HIVES, 09/29/13) All Systems: reviewed and negative except above Subjective care noted noted congestion and sputum + COVID and on isolation remains on high FIO2 - NRB/BiPAP PRN,CXR slight improvement ID following Objective Vital Signs noted HEENT: on BiPAP RHYTHM: NSR LUNGS: bilateral rhonchi, coarse breath sounds CARDIAC: normal rate, regular rhythm, normal S1 and S2, gallop/S4 ABDOMEN: normal bowel sounds, non tender, soft, no organomegaly, other - obese EXTREMITIES: +1 edema Laboratory Tests noted Medications noted Assessment/Plan Assessment/Plan ASSESSMENT: Chronic respiratory failure COPD exacerbation and facial cellulitis. diabetes, hypertension, chronic hypoxemia chronic debility, pulmonary congestion, COVID+ PLAN: BiPAP PRN NRB O2 when not on BiPAP BD ABG remdesivir and decadron/ID sputum culture monitor imaging antibiotics per ID respiratory care as is home meds supportive care oxygen therapy and monitor prognosis guarded impression, plan, and exam edited and reviewed in detail care discussed with Werner Hussein MD Oct 11, 2020 17:53
[2020-10-11 20:00] VITALS: BP 142/76
--- NOTE | 2020-10-11 20:09 | General Progress Note ---
Subjective ROS Limited/Unobtainable: No Constitutional: Reports: malaise, weakness HEENT: Reports: no symptoms Cardiovascular: Reports: no symptoms Respiratory: Reports: cough, shortness of breath Gastrointestinal/Abdominal: Reports: no symptoms Genitourinary: Reports: no symptoms Neurologic/Psychiatric: Reports: anxiety, depressed, emotional problems Endocrine: Reports: no symptoms Hematologic/Lymphatic: Reports: no symptoms Allergies: Coded Allergies: AMOXICILLIN (Verified Allergy, Mild, RASH HIVES, 09/29/13) ERYTHROMYCIN BASE (Unverified Allergy, Unknown, 10/13/17) IODINE (Verified Allergy, Unknown, 09/29/13) PENICILLINS (Verified Allergy, Unknown, RASH HIVES, 09/29/13) All Systems: reviewed and negative except above Subjective events noted. c/o cough. stable sob. increased o2 requirements. cxr improving. anxious. Objective Last 24 Hour Vital Signs Date Time Temp Pulse Resp B/P (MAP) Pulse Ox O2 Delivery O2 Flow Rate FiO2 10/11/20 19:00 94 Bi-Pap 100 10/11/20 19:00 115 23 94 100 10/11/20 18:46 79 19 151/72 91 10/11/20 16:00 97.1 79 19 151/72 (98) 91 10/11/20 15:50 98 29 91 100 10/11/20 12:00 98.7 89 21 135/77 (96) 93 10/11/20 10:50 101 28 93 100 10/11/20 10:14 99 33 90 100 10/11/20 09:00 Bi-pap 10/11/20 08:57 110 140/93 10/11/20 08:00 97.1 110 21 140/93 (109) 92 10/11/20 07:46 93 10/11/20 07:46 93 Non-Rebreather 15.0 100 10/11/20 05:44 93 19 117/70 92 10/11/20 05:14 93 19 117/70 92 10/11/20 04:00 98.3 104 22 124/73 (90) 92 10/11/20 02:30 93 19 92 100 10/11/20 00:00 98.2 106 22 117/70 (86) 92 10/10/20 22:25 82 19 92 100 10/10/20 22:02 103 22 128/80 90 10/10/20 21:32 113 22 134/83 90 10/10/20 21:00 Bi-pap Intake and Output 10/10/20 10/11/20 18:59 06:59 Intake Total 500 ml Output Total 700 ml 1100 ml Balance -200 ml -1100 ml Intake Oral 500 ml Output Urine Total 700 ml 1100 ml # Voids 3 Laboratory Tests 10/11/20 05:21: POC Whole Blood Glucose 361H 10/11/20 11:56: POC Whole Blood Glucose [Pending] 10/11/20 16:57: POC Whole Blood Glucose [Pending] 10/11/20 19:09: Arterial Blood pH 7.342L, Arterial Blood Partial Pressure CO2 65.2*H, Arterial Blood Partial Pressure O2 54.2L, Arterial Blood HCO3 34.5H, Arterial Blood Oxygen Saturation 86.0*L, Arterial Blood Base Excess 7.2H, Rico Test Positive Height (Feet): 5 Height (Inches): 1.00 Weight (Pounds): 210 Objective General Appearance: WD/WN, alert, mild distress EENT: PERRL/EOMI, normal ENT inspection Neck: non-tender, normal alignment Cardiovascular: normal peripheral pulses, normal rate, regular rhythm Respiratory/Chest: chest wall non-tender, lungs clear, no respiratory distress, no accessory muscle use, +expiratory wheezing Abdomen: normal bowel sounds, non tender, soft, no organomegaly Edema: no edema noted Arm (L), no edema noted Arm (R) 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, no motor/sensory deficits, alert, oriented x 3, responsive, normal mood/affect Assessment/Plan Problem List: (1) Facial cellulitis ICD Codes: L03.211 - Cellulitis of face SNOMED: 919104774 (2) COPD exacerbation ICD Codes: J44.1 - COPD exacerbation SNOMED: 596378297 (3) Toxic metabolic encephalopathy ICD Codes: G92 - Toxic encephalopathy SNOMED: 082901673 (4) Hypertension, malignant ICD Codes: I10 - Hypertension, malignant SNOMED: 05676248 (5) Diabetes mellitus ICD Codes: E11.9 - Diabetes mellitus SNOMED: 82058133 Status: stable, progressing Assessment/Plan: cont o2 bipap/NRB monitor abg monitor cxr cough rx cont inhalers dvt/stress ulcer prophylaxis d/w family x 10 mins Floyd Downey MD Oct 11, 2020 20:09
[2020-10-11] MEDS ORDERED: guaiFENesin w/Codeine 5ml Liq ud ORAL PRN (20:45)
[2020-10-11] MEDS: Dyna-Hex 2% Top Sol 2oz TOPIC SCH (21:11)
[2020-10-11] MEDS: Flonase Nasal Inhaler 16gm NASAL SCH (21:15)
[2020-10-12] VITALS: BP 152/58
[2020-10-12 04:00] VITALS: BP 133/81
[2020-10-12] MEDS: HydrOXYzine 50mg tab ORAL PRN (04:48)
[2020-10-12] MEDS: NovoLOG Insulin Flexpen SUBQ SCH ×4 (06:30→20:23)
[2020-10-12 08:00] VITALS: BP 165/80
[2020-10-12] MEDS ORDERED: Levalbuterol Inh UD 1.25mg/0.5ml HHN PRN (08:45)
--- NOTE | 2020-10-12 08:48 | General Progress Note ---
Subjective ROS Limited/Unobtainable: No Constitutional: Reports: malaise, weakness HEENT: Reports: no symptoms Cardiovascular: Reports: no symptoms Respiratory: Reports: cough, shortness of breath Gastrointestinal/Abdominal: Reports: no symptoms Genitourinary: Reports: no symptoms Neurologic/Psychiatric: Reports: anxiety Endocrine: Reports: no symptoms Hematologic/Lymphatic: Reports: no symptoms Allergies: Coded Allergies: AMOXICILLIN (Verified Allergy, Mild, RASH HIVES, 09/29/13) ERYTHROMYCIN BASE (Unverified Allergy, Unknown, 10/13/17) IODINE (Verified Allergy, Unknown, 09/29/13) PENICILLINS (Verified Allergy, Unknown, RASH HIVES, 09/29/13) All Systems: reviewed and negative except above Subjective transferred to sdu for worsening hypoxemia and sob. Abg noted- po2 50s. cxr with improvement in right basilar infiltrate Objective Last 24 Hour Vital Signs Date Time Temp Pulse Resp B/P (MAP) Pulse Ox O2 Delivery O2 Flow Rate FiO2 10/12/20 08:14 92 Bi-Pap 100 10/12/20 07:10 111 24 92 100 10/12/20 04:00 97.4 106 24 133/81 (98) 90 10/12/20 00:45 111 30 95 100 10/12/20 00:00 97.4 106 22 152/58 (89) 90 10/11/20 21:11 109 142/76 10/11/20 21:00 Bi-pap 10/11/20 20:00 99.4 109 20 142/76 (98) 91 10/11/20 19:16 110 22 146/71 95 10/11/20 19:00 94 Bi-Pap 100 10/11/20 19:00 115 23 94 100 10/11/20 18:46 79 19 151/72 91 10/11/20 16:00 97.1 79 19 151/72 (98) 91 10/11/20 15:50 98 29 91 100 10/11/20 12:00 98.7 89 21 135/77 (96) 93 10/11/20 10:50 101 28 93 100 10/11/20 10:14 99 33 90 100 10/11/20 09:00 Bi-pap 10/11/20 08:57 110 140/93 Intake and Output 10/11/20 10/12/20 19:00 07:00 Intake Total 480 ml 300 ml Balance 480 ml 300 ml Intake Oral 480 ml 300 ml # Voids 1 # Bowel Movements 1 Laboratory Tests 10/11/20 11:56: POC Whole Blood Glucose [Pending] 10/11/20 16:57: POC Whole Blood Glucose [Pending] 10/11/20 19:09: Arterial Blood pH 7.342L, Arterial Blood Partial Pressure CO2 65.2*H, Arterial Blood Partial Pressure O2 54.2L, Arterial Blood HCO3 34.5H, Arterial Blood Oxygen Saturation 86.0*L, Arterial Blood Base Excess 7.2H, Rico Test Positive Height (Feet): 5 Height (Inches): 1.00 Weight (Pounds): 210 Objective General Appearance: WD/WN, alert, mild distress EENT: PERRL/EOMI, normal ENT inspection Neck: non-tender, normal alignment Cardiovascular: normal peripheral pulses, normal rate, regular rhythm Respiratory/Chest: chest wall non-tender, lungs clear, no respiratory distress, no accessory muscle use, +expiratory wheezing- increased Abdomen: normal bowel sounds, non tender, soft, no organomegaly Edema: no edema noted Arm (L), no edema noted Arm (R) 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 grossly normal, no motor/sensory deficits, alert, oriented x 3, responsive, normal mood/affect Assessment/Plan Problem List: (1) Facial cellulitis ICD Codes: L03.211 - Cellulitis of face SNOMED: 634904586 (2) COPD exacerbation ICD Codes: J44.1 - COPD exacerbation SNOMED: 192012725 (3) Toxic metabolic encephalopathy ICD Codes: G92 - Toxic encephalopathy SNOMED: 144913044 (4) Hypertension, malignant ICD Codes: I10 - Hypertension, malignant SNOMED: 19465860 (5) Diabetes mellitus ICD Codes: E11.9 - Diabetes mellitus SNOMED: 95389802 Status: stable, progressing Assessment/Plan: cont o2 bipap monitor abg monitor cxr cough rx cont inhalers schedule xopenex HHN increase solumedrol to q8 dvt/stress ulcer prophylaxis d/w family x 10 mins Floyd Downey MD Oct 12, 2020 08:48
[2020-10-12] MEDS: Levemir Flexpen SUBQ SCH ×2 (09:00→20:26)
[2020-10-12] MEDS: LORazepam 1mg tab ORAL PRN (09:17)
[2020-10-12] MEDS: Nystatin Susp 500,000 units/5ml ORAL SCH ×4 (09:17→20:08)
[2020-10-12] MEDS: Vitamin D 1000 units Tab ORAL SCH (09:18)
[2020-10-12] MEDS: Vitamin B Complex Tab ORAL SCH (09:18)
[2020-10-12] MEDS: Sertraline 100mg tab ORAL SCH (09:18)
[2020-10-12] MEDS: Lactobacillus-GG tablet ORAL SCH ×2 (09:18→17:51)
[2020-10-12] MEDS: Ascorbic Acid 500mg tab ORAL SCH ×2 (09:18→17:51)
[2020-10-12] MEDS: guaiFENesin ER 600mg tab ORAL SCH ×2 (09:18→17:51)
[2020-10-12] MEDS: Docusate 250mg cap ORAL SCH (09:18)
[2020-10-12] MEDS: dilTIAZem HCl ER 180mg cap ORAL SCH ×2 (09:18→20:08)
[2020-10-12] MEDS: Anastrazole 1mg tab ORAL SCH (09:18)
[2020-10-12] MEDS: Zinc Sulfate 220mg ORAL SCH (09:18)
[2020-10-12] MEDS: Enoxaparin 40mg Inj SUBQ SCH ×2 (09:19→17:52)
[2020-10-12] MEDS: Solu-MEDROL 40mg Inj IVP SCH ×3 (09:38→22:24)
[2020-10-12 12:00] VITALS: BP 131/76
--- NOTE | 2020-10-12 14:22 | Infectious Diseases Prog Note ---
Assessment/Plan Assessment/Plan A: 1. Klebsiella urinary tract infection. 2. Facial cellulitis. 3. COPD exacerbation. 4. DM with hyperglycemia 5 HPN 6. Penicillin allergy 7. COVID19 pneumonia PLAN: 1. Finished remdesivir course 2. continue Solumedrol 3. CXR Subjective ROS Limited/Unobtainable: Yes Respiratory: Reports: shortness of breath, dry cough Allergies: Coded Allergies: AMOXICILLIN (Verified Allergy, Mild, RASH HIVES, 09/29/13) ERYTHROMYCIN BASE (Unverified Allergy, Unknown, 10/13/17) IODINE (Verified Allergy, Unknown, 09/29/13) PENICILLINS (Verified Allergy, Unknown, RASH HIVES, 09/29/13) Objective Last 24 Hour Vital Signs Date Time Temp Pulse Resp B/P (MAP) Pulse Ox O2 Delivery O2 Flow Rate FiO2 10/12/20 12:00 97.9 97 22 131/76 (94) 88 10/12/20 12:00 84 10/12/20 09:47 85 18 134/67 92 10/12/20 09:19 84 10/12/20 09:18 104 165/80 10/12/20 09:17 104 18 165/80 92 10/12/20 09:00 Bi-pap 10/12/20 08:14 92 Bi-Pap 100 10/12/20 08:00 96.8 104 18 165/80 (108) 86 10/12/20 07:10 111 24 92 100 10/12/20 04:00 97.4 106 24 133/81 (98) 90 10/12/20 00:45 111 30 95 100 10/12/20 00:00 97.4 106 22 152/58 (89) 90 10/11/20 21:11 109 142/76 10/11/20 21:00 Bi-pap 10/11/20 20:00 99.4 109 20 142/76 (98) 91 10/11/20 19:16 110 22 146/71 95 10/11/20 19:00 94 Bi-Pap 100 10/11/20 19:00 115 23 94 100 10/11/20 18:46 79 19 151/72 91 10/11/20 16:00 97.1 79 19 151/72 (98) 91 10/11/20 15:50 98 29 91 100 Height (Feet): 5 Height (Inches): 1.00 Weight (Pounds): 210 General Appearance: other - obese HEENT: mucous membranes moist Respiratory/Chest: other - on BIPAP, desaturating Cardiovascular: normal rate Abdomen: soft, non tender Neurologic/Psychiatric: alert, responsive Laboratory Tests Test 10/11/20 16:57 10/11/20 19:09 10/11/20 21:39 POC Whole Blood Glucose Pending 101 MG/DL (74-106) Arterial Blood pH 7.342 (7.350-7.450) Arterial Blood Partial Pressure CO2 65.2 mmHg (35.0-45.0) *H Arterial Blood Partial Pressure O2 54.2 mmHg (75.0-100.0) L Arterial Blood HCO3 34.5 mmol/L (22.0-26.0) H Arterial Blood Oxygen Saturation 86.0 % (95-100) *L Arterial Blood Base Excess 7.2 (-2-2) H Rico Test Positive Current Medications Medications (Trade) Dose Ordered Sig/Sera Route PRN Reason Start Time Stop Time Status Last Admin Dose Admin Acetaminophen (Tylenol) 650 mg Q4H PRN ORAL Mild Pain (Pain Scale 1-3) 09/18/20 23:45 10/18/20 23:44 10/12/20 04:48 Anastrozole (Arimidex) 1 mg DAILY ORAL 09/19/20 09:00 10/19/20 08:59 10/12/20 09:18 Ascorbic Acid (Vitamin C) 500 mg TWICE A DAY ORAL 09/30/20 20:00 10/30/20 19:59 10/12/20 09:18 Budesonide/ Formoterol Fumarate (Symbicort 160/ 4.5) 2 puff BIDRT INH 10/02/20 11:00 12/31/20 10:59 10/12/20 10:24 Cetylpyridinium Chloride (Cepacol) 1 lozg EVERY 2 HOURS PRN LAURA For Cough 09/25/20 18:15 12/24/20 18:14 09/28/20 21:19 Chlorhexidine Gluconate (Brandee-Hex 2%) 1 applic DAILY@2000 TOPIC 09/30/20 20:00 12/29/20 19:59 10/11/20 21:11 Clonidine HCl (Catapres Tab) 0.1 mg Q4H PRN ORAL SBP > 160 09/19/20 17:15 12/18/20 17:14 09/24/20 03:09 Cyclobenzaprine HCl (Flexeril) 10 mg TIDPRN PRN ORAL Muscle Spasm 10/11/20 00:00 10/18/20 00:00 Dextrose (Dextrose 50%) 25 ml Q30M PRN IV Hypoglycemia 10/02/20 22:00 12/31/20 21:59 Dextrose (Dextrose 50%) 50 ml Q30M PRN IV Hypoglycemia 10/02/20 22:00 12/31/20 21:59 Diltiazem HCl (Cardizem ER) 180 mg BID@0900,2100 ORAL 10/11/20 09:00 11/10/20 08:59 10/12/20 09:18 Docusate Sodium (Colace) 250 mg DAILY ORAL 10/03/20 15:15 11/02/20 15:14 10/12/20 09:18 Enoxaparin Sodium (Lovenox) 40 mg BID SUBQ 09/30/20 20:00 12/29/20 19:59 10/12/20 09:19 Fluticasone Propionate (Flonase) 1 spray QHS NASAL 09/18/20 21:00 10/18/20 20:59 10/11/20 21:15 Furosemide (Lasix) 40 mg DAILY IV 10/12/20 09:00 11/11/20 08:59 10/12/20 09:17 Guaifenesin (Mucinex ER) 600 mg TWICE A DAY ORAL 09/25/20 09:00 12/24/20 08:59 10/12/20 09:18 Guaifenesin/ Codeine Phosphate (Robitussin with codeine) 10 ml Q6H PRN ORAL For Cough 10/12/20 01:45 11/11/20 01:44 Hydroxyzine HCl (Atarax) 50 mg Q4H PRN ORAL Itching 09/19/20 06:15 10/19/20 06:14 10/12/20 04:48 Insulin Aspart (NovoLOG) BEFORE MEALS AND HS SUBQ 10/03/20 06:30 01/01/21 06:29 10/12/20 12:33 Insulin Detemir (Levemir) 15 units BEDTIME SUBQ 10/11/20 21:00 12/31/20 21:59 10/11/20 21:56 Insulin Detemir (Levemir) 18 units DAILY SUBQ 10/11/20 09:00 01/09/21 08:59 10/11/20 08:59 Lactobacillus Acidophilus (Culturelle) 1 tab TWICE A DAY ORAL 09/25/20 18:00 12/24/20 17:59 10/12/20 09:18 Levalbuterol HCl (Xopenex) 1.25 mg Q8H PRN HHN Shortness of Breath 10/12/20 08:45 10/17/20 08:44 Lorazepam (Ativan) 1 mg Q4H PRN ORAL For Anxiety 10/06/20 09:15 10/13/20 09:14 10/12/20 09:17 Magnesium Hydroxide (Mom) 30 ml DAILYPRN PRN ORAL Constipation 10/03/20 15:15 11/02/20 15:14 10/07/20 11:37 Methylprednisolone Sodium Succinate (Solu-MEDROL) 40 mg EVERY 8 HOURS IVP 10/12/20 09:00 01/10/21 08:59 10/12/20 14:09 Nystatin (Nystatin) 5 ml QID ORAL 10/11/20 09:00 10/18/20 08:59 10/12/20 12:32 Ondansetron HCl (Zofran) 4 mg Q6H PRN IVP Nausea & Vomiting 09/18/20 19:00 10/18/20 18:59 10/11/20 18:46 Pantoprazole (Protonix) 40 mg DAILY ORAL 09/19/20 09:00 10/19/20 08:59 10/12/20 09:18 Sertraline HCl (Zoloft) 100 mg DAILY ORAL 09/19/20 09:00 10/19/20 08:59 10/12/20 09:18 Vitamin B Complex (Vitamin B Complex) 1 tab DAILY ORAL 09/21/20 09:00 12/20/20 08:59 10/12/20 09:18 Vitamin D (Vitamin D) 1,000 unit DAILY ORAL 09/30/20 20:00 10/30/20 19:59 10/12/20 09:18 Zinc Sulfate (Zinc Sulfate) 220 mg DAILY ORAL 09/30/20 20:00 12/29/20 19:59 10/12/20 09:18 Rene Schultz MD Oct 12, 2020 14:22
--- NOTE | 2020-10-12 14:59 | Pulmonology Progress Note ---
Subjective ROS Limited/Unobtainable: Yes Constitutional: Denies: fever, chills Gastrointestinal/Abdominal: Denies: nausea, vomiting, diarrhea Musculoskeletal: Denies: pain Allergies: Coded Allergies: AMOXICILLIN (Verified Allergy, Mild, RASH HIVES, 09/29/13) ERYTHROMYCIN BASE (Unverified Allergy, Unknown, 10/13/17) IODINE (Verified Allergy, Unknown, 09/29/13) PENICILLINS (Verified Allergy, Unknown, RASH HIVES, 09/29/13) All Systems: reviewed and negative except above Subjective care noted doing poorly + COVID and on isolation on diuretics on 100% on BIPAP Objective Last 24 Hour Vital Signs Date Time Temp Pulse Resp B/P (MAP) Pulse Ox O2 Delivery O2 Flow Rate FiO2 10/12/20 13:08 99 23 91 100 10/12/20 12:00 97.9 97 22 131/76 (94) 88 10/12/20 12:00 84 10/12/20 09:47 85 18 134/67 92 10/12/20 09:19 84 10/12/20 09:18 104 165/80 10/12/20 09:17 104 18 165/80 92 10/12/20 09:00 Bi-pap 10/12/20 08:14 92 Bi-Pap 100 10/12/20 08:00 96.8 104 18 165/80 (108) 86 10/12/20 07:10 111 24 92 100 10/12/20 04:00 97.4 106 24 133/81 (98) 90 10/12/20 00:45 111 30 95 100 10/12/20 00:00 97.4 106 22 152/58 (89) 90 10/11/20 21:11 109 142/76 10/11/20 21:00 Bi-pap 10/11/20 20:00 99.4 109 20 142/76 (98) 91 10/11/20 19:16 110 22 146/71 95 10/11/20 19:00 94 Bi-Pap 100 10/11/20 19:00 115 23 94 100 10/11/20 18:46 79 19 151/72 91 10/11/20 16:00 97.1 79 19 151/72 (98) 91 10/11/20 15:50 98 29 91 100 Intake and Output 10/11/20 10/12/20 19:00 07:00 Intake Total 480 ml 300 ml Balance 480 ml 300 ml Intake Oral 480 ml 300 ml # Voids 1 # Bowel Movements 1 Objective deferred due to COVID no distress alert nonfocal Laboratory Tests 10/11/20 16:57: POC Whole Blood Glucose [Pending] 10/11/20 19:09: Arterial Blood pH 7.342L, Arterial Blood Partial Pressure CO2 65.2*H, Arterial B lood Partial Pressure O2 54.2L, Arterial Blood HCO3 34.5H, Arterial Blood Oxygen Saturation 86.0*L, Arterial Blood Base Excess 7.2H, Rico Test Positive 10/11/20 21:39: POC Whole Blood Glucose 101 Current Medications Medications (Trade) Dose Ordered Sig/Sera Route PRN Reason Start Time Stop Time Status Last Admin Dose Admin Acetaminophen (Tylenol) 650 mg Q4H PRN ORAL Mild Pain (Pain Scale 1-3) 09/18/20 23:45 10/18/20 23:44 10/12/20 04:48 Anastrozole (Arimidex) 1 mg DAILY ORAL 09/19/20 09:00 10/19/20 08:59 10/12/20 09:18 Ascorbic Acid (Vitamin C) 500 mg TWICE A DAY ORAL 09/30/20 20:00 10/30/20 19:59 10/12/20 09:18 Budesonide/ Formoterol Fumarate (Symbicort 160/ 4.5) 2 puff BIDRT INH 10/02/20 11:00 12/31/20 10:59 10/12/20 10:24 Cetylpyridinium Chloride (Cepacol) 1 lozg EVERY 2 HOURS PRN LAURA For Cough 09/25/20 18:15 12/24/20 18:14 09/28/20 21:19 Chlorhexidine Gluconate (Brandee-Hex 2%) 1 applic DAILY@2000 TOPIC 09/30/20 20:00 12/29/20 19:59 10/11/20 21:11 Clonidine HCl (Catapres Tab) 0.1 mg Q4H PRN ORAL SBP > 160 09/19/20 17:15 12/18/20 17:14 09/24/20 03:09 Cyclobenzaprine HCl (Flexeril) 10 mg TIDPRN PRN ORAL Muscle Spasm 10/11/20 00:00 10/18/20 00:00 Dextrose (Dextrose 50%) 25 ml Q30M PRN IV Hypoglycemia 10/02/20 22:00 12/31/20 21:59 Dextrose (Dextrose 50%) 50 ml Q30M PRN IV Hypoglycemia 10/02/20 22:00 12/31/20 21:59 Diltiazem HCl (Cardizem ER) 180 mg BID@0900,2100 ORAL 10/11/20 09:00 11/10/20 08:59 10/12/20 09:18 Docusate Sodium (Colace) 250 mg DAILY ORAL 10/03/20 15:15 11/02/20 15:14 10/12/20 09:18 Enoxaparin Sodium (Lovenox) 40 mg BID SUBQ 09/30/20 20:00 12/29/20 19:59 10/12/20 09:19 Fluticasone Propionate (Flonase) 1 spray QHS NASAL 09/18/20 21:00 10/18/20 20:59 10/11/20 21:15 Furosemide (Lasix) 40 mg DAILY IV 10/12/20 09:00 11/11/20 08:59 10/12/20 09:17 Guaifenesin (Mucinex ER) 600 mg TWICE A DAY ORAL 09/25/20 09:00 12/24/20 08:59 10/12/20 09:18 Guaifenesin/ Codeine Phosphate (Robitussin with codeine) 10 ml Q6H PRN ORAL For Cough 10/12/20 01:45 11/11/20 01:44 Hydroxyzine HCl (Atarax) 50 mg Q4H PRN ORAL Itching 09/19/20 06:15 10/19/20 06:14 10/12/20 04:48 Insulin Aspart (NovoLOG) BEFORE MEALS AND HS SUBQ 10/03/20 06:30 01/01/21 06:29 10/12/20 12:33 Insulin Detemir (Levemir) 15 units BEDTIME SUBQ 10/11/20 21:00 12/31/20 21:59 10/11/20 21:56 Insulin Detemir (Levemir) 18 units DAILY SUBQ 10/11/20 09:00 01/09/21 08:59 10/11/20 08:59 Lactobacillus Acidophilus (Culturelle) 1 tab TWICE A DAY ORAL 09/25/20 18:00 12/24/20 17:59 10/12/20 09:18 Levalbuterol HCl (Xopenex) 1.25 mg Q8H PRN HHN Shortness of Breath 10/12/20 08:45 10/17/20 08:44 Lorazepam (Ativan) 1 mg Q4H PRN ORAL For Anxiety 10/06/20 09:15 10/13/20 09:14 10/12/20 09:17 Magnesium Hydroxide (Mom) 30 ml DAILYPRN PRN ORAL Constipation 10/03/20 15:15 11/02/20 15:14 10/07/20 11:37 Methylprednisolone Sodium Succinate (Solu-MEDROL) 40 mg EVERY 8 HOURS IVP 10/12/20 09:00 01/10/21 08:59 10/12/20 14:09 Nystatin (Nystatin) 5 ml QID ORAL 10/11/20 09:00 10/18/20 08:59 10/12/20 12:32 Ondansetron HCl (Zofran) 4 mg Q6H PRN IVP Nausea & Vomiting 09/18/20 19:00 10/18/20 18:59 10/11/20 18:46 Pantoprazole (Protonix) 40 mg DAILY ORAL 09/19/20 09:00 10/19/20 08:59 10/12/20 09:18 Sertraline HCl (Zoloft) 100 mg DAILY ORAL 09/19/20 09:00 10/19/20 08:59 10/12/20 09:18 Vitamin B Complex (Vitamin B Complex) 1 tab DAILY ORAL 09/21/20 09:00 12/20/20 08:59 10/12/20 09:18 Vitamin D (Vitamin D) 1,000 unit DAILY ORAL 09/30/20 20:00 10/30/20 19:59 10/12/20 09:18 Zinc Sulfate (Zinc Sulfate) 220 mg DAILY ORAL 09/30/20 20:00 12/29/20 19:59 10/12/20 09:18 Assessment/Plan Assessment/Plan ASSESSMENT: Chronic respiratory failure COPD exacerbation and facial cellulitis. diabetes, hypertension, chronic hypoxemia chronic debility, pulmonary congestion, COVID+ PLAN: remdesivir and decadron ertapenem monitor imaging respiratory care as is home meds supportive care oxygen therapy and monitor prognosis guarded impression, plan, and exam edited and reviewed in detail care discussed with Froilan Clarke MD Oct 12, 2020 14:59
[2020-10-12 16:00] VITALS: BP 125/75
--- NOTE | 2020-10-12 16:22 | Diagnostic Imaging Report ---
Procedure: XRAY Chest 1v Reason for study: Shortness of breath Comparison films: 10/09/2020. FINDINGS: Left PICC line remains in place. Bilateral alveolar infiltrates are unchanged. Cardiomegaly unchanged. No significant effusion noted. The bony thorax appear unremarkable. IMPRESSION: NO SIGNIFICANT CHANGE COMPARED TO PREVIOUS EXAM.
[2020-10-12] MEDS: guaiFENesin w/Codeine 5ml Liq ud ORAL PRN (18:19)
[2020-10-12 20:00] VITALS: BP 146/72
[2020-10-12] MEDS: Dyna-Hex 2% Top Sol 2oz TOPIC SCH (20:07)
[2020-10-12] MEDS: Flonase Nasal Inhaler 16gm NASAL SCH (20:08)
--- NOTE | 2020-10-12 21:57 | Psychiatric Progress Note ---
Psychiatry Progress Note Psychiatry Progress Note Subjective more anxious no behavioral issues. Medications Current Medications Medications (Trade) Dose Ordered Sig/Sera Route PRN Reason Start Time Stop Time Status Last Admin Dose Admin Acetaminophen (Tylenol) 650 mg Q4H PRN ORAL Mild Pain (Pain Scale 1-3) 09/18/20 23:45 10/18/20 23:44 10/12/20 04:48 Anastrozole (Arimidex) 1 mg DAILY ORAL 09/19/20 09:00 10/19/20 08:59 10/12/20 09:18 Ascorbic Acid (Vitamin C) 500 mg TWICE A DAY ORAL 09/30/20 20:00 10/30/20 19:59 10/12/20 17:51 Budesonide/ Formoterol Fumarate (Symbicort 160/ 4.5) 2 puff BIDRT INH 10/02/20 11:00 12/31/20 10:59 10/12/20 10:24 Cetylpyridinium Chloride (Cepacol) 1 lozg EVERY 2 HOURS PRN LAURA For Cough 09/25/20 18:15 12/24/20 18:14 09/28/20 21:19 Chlorhexidine Gluconate (Brandee-Hex 2%) 1 applic DAILY@1999 TOPIC 09/30/20 20:00 12/29/20 19:59 10/12/20 20:07 Clonidine HCl (Catapres Tab) 0.1 mg Q4H PRN ORAL SBP > 160 09/19/20 17:15 12/18/20 17:14 09/24/20 03:09 Cyclobenzaprine HCl (Flexeril) 10 mg TIDPRN PRN ORAL Muscle Spasm 10/11/20 00:00 10/18/20 00:00 Dextrose (Dextrose 50%) 25 ml Q30M PRN IV Hypoglycemia 10/02/20 22:00 12/31/20 21:59 Dextrose (Dextrose 50%) 50 ml Q30M PRN IV Hypoglycemia 10/02/20 22:00 12/31/20 21:59 Diltiazem HCl (Cardizem ER) 180 mg BID@0900,2100 ORAL 10/11/20 09:00 11/10/20 08:59 10/12/20 20:08 Docusate Sodium (Colace) 250 mg DAILY ORAL 10/03/20 15:15 11/02/20 15:14 10/12/20 09:18 Enoxaparin Sodium (Lovenox) 40 mg BID SUBQ 09/30/20 20:00 12/29/20 19:59 10/12/20 17:52 Fluticasone Propionate (Flonase) 1 spray QHS NASAL 09/18/20 21:00 10/18/20 20:59 10/12/20 20:08 Furosemide (Lasix) 40 mg DAILY IV 10/12/20 09:00 11/11/20 08:59 10/12/20 09:17 Guaifenesin (Mucinex ER) 600 mg TWICE A DAY ORAL 09/25/20 09:00 12/24/20 08:59 10/12/20 17:51 Guaifenesin/ Codeine Phosphate (Robitussin with codeine) 10 ml Q6H PRN ORAL For Cough 10/12/20 01:45 11/11/20 01:44 10/12/20 18:19 Hydroxyzine HCl (Atarax) 50 mg Q4H PRN ORAL Itching 09/19/20 06:15 10/19/20 06:14 10/12/20 04:48 Insulin Aspart (NovoLOG) BEFORE MEALS AND HS SUBQ 10/03/20 06:30 01/01/21 06:29 10/12/20 20:23 Insulin Detemir (Levemir) 15 units BEDTIME SUBQ 10/11/20 21:00 12/31/20 21:59 10/12/20 20:26 Insulin Detemir (Levemir) 18 units DAILY SUBQ 10/11/20 09:00 01/09/21 08:59 10/11/20 08:59 Lactobacillus Acidophilus (Culturelle) 1 tab TWICE A DAY ORAL 09/25/20 18:00 12/24/20 17:59 10/12/20 17:51 Levalbuterol HCl (Xopenex) 1.25 mg Q8H PRN HHN Shortness of Breath 10/12/20 08:45 10/17/20 08:44 Lorazepam (Ativan) 1 mg Q4H PRN ORAL For Anxiety 10/06/20 09:15 10/13/20 09:14 10/12/20 09:17 Magnesium Hydroxide (Mom) 30 ml DAILYPRN PRN ORAL Constipation 10/03/20 15:15 11/02/20 15:14 10/07/20 11:37 Methylprednisolone Sodium Succinate (Solu-MEDROL) 40 mg EVERY 8 HOURS IVP 10/12/20 09:00 01/10/21 08:59 10/12/20 14:09 Nystatin (Nystatin) 5 ml QID ORAL 10/11/20 09:00 10/18/20 08:59 10/12/20 20:08 Ondansetron HCl (Zofran) 4 mg Q6H PRN IVP Nausea & Vomiting 09/18/20 19:00 10/18/20 18:59 10/12/20 18:19 Pantoprazole (Protonix) 40 mg DAILY ORAL 09/19/20 09:00 10/19/20 08:59 10/12/20 09:18 Sertraline HCl (Zoloft) 100 mg DAILY ORAL 09/19/20 09:00 10/19/20 08:59 10/12/20 09:18 Vitamin B Complex (Vitamin B Complex) 1 tab DAILY ORAL 09/21/20 09:00 12/20/20 08:59 10/12/20 09:18 Vitamin D (Vitamin D) 1,000 unit DAILY ORAL 09/30/20 20:00 10/30/20 19:59 10/12/20 09:18 Zinc Sulfate (Zinc Sulfate) 220 mg DAILY ORAL 09/30/20 20:00 12/29/20 19:59 10/12/20 09:18 Neurological/Psychiatric: Reports: anxiety, depressed, emotional problems Allergies: Coded Allergies: AMOXICILLIN (Verified Allergy, Mild, RASH HIVES, 09/29/13) ERYTHROMYCIN BASE (Unverified Allergy, Unknown, 10/13/17) IODINE (Verified Allergy, Unknown, 09/29/13) PENICILLINS (Verified Allergy, Unknown, RASH HIVES, 09/29/13) Objective Data Height (Feet): 5 Height (Inches): 1.00 Weight (Pounds): 210 General Appearance: WD/WN, alert, mild distress Additional Comments: alert and oriented times self, place, and situation. Mood is anxious. Affect is blunted, congruent with mood. Thought process is concrete. Thought content, there is no suicidal or homicidal ideation. Cognition is intact. Insight and judgment is fair. Assessment/Plan Rusk I: ASSESSMENT: Rusk I Major depressive disorder. Anxiety disorder. Rusk II borderline Rusk III COPD. Rusk IV Low. Rusk V 50 PLAN: 1. Continue Zoloft. 2. Ativan and Ambien prn 3. The patient would like only melatonin. 4. Provide the patient with reality orientation and supportive therapy. Status: stable, progressing Status Narrative ASSESSMENT: Rusk I Major depressive disorder. Anxiety disorder. Rusk II borderline Rusk III COPD. Rusk IV Low. Rusk V 50 PLAN: 1. Continue Zoloft. 2. Ativan and Ambien prn 3. The patient would like only melatonin. 4. Provide the patient with reality orientation and supportive therapy. Assessment/Plan: ASSESSMENT: Rusk I Major depressive disorder. Anxiety disorder. Rusk II borderline Rusk III COPD. Rusk IV Low. Rusk V 50 PLAN: 1. Continue Zoloft. 2. Ativan and Ambien prn 3. The patient would like only melatonin. 4. Provide the patient with reality orientation and supportive therapy. Jayy Andino MD Oct 12, 2020 21:57
[2020-10-13] VITALS: BP 125/56
[2020-10-13 04:00] VITALS: BP 117/65
[2020-10-13] MEDS: Solu-MEDROL 40mg Inj IVP SCH ×3 (05:54→21:42)
[2020-10-13] MEDS: NovoLOG Insulin Flexpen SUBQ SCH ×4 (06:00→21:00)
[2020-10-13 08:00] VITALS: BP 134/74
--- NOTE | 2020-10-13 08:04 | General Progress Note ---
Subjective ROS Limited/Unobtainable: No Constitutional: Reports: malaise, weakness HEENT: Reports: throat swelling Cardiovascular: Reports: no symptoms Respiratory: Reports: cough, shortness of breath Gastrointestinal/Abdominal: Reports: no symptoms Genitourinary: Reports: no symptoms Neurologic/Psychiatric: Reports: anxiety Endocrine: Reports: no symptoms Hematologic/Lymphatic: Reports: no symptoms Allergies: Coded Allergies: AMOXICILLIN (Verified Allergy, Mild, RASH HIVES, 09/29/13) ERYTHROMYCIN BASE (Unverified Allergy, Unknown, 10/13/17) IODINE (Verified Allergy, Unknown, 09/29/13) PENICILLINS (Verified Allergy, Unknown, RASH HIVES, 09/29/13) All Systems: reviewed and negative except above Subjective no overnight events. remains stable on bipap. O2 sats low 90s. intermittent anxiety. cxr yesterday unchanged. Objective Last 24 Hour Vital Signs Date Time Temp Pulse Resp B/P (MAP) Pulse Ox O2 Delivery O2 Flow Rate FiO2 10/13/20 04:00 98.1 79 25 117/65 (82) 89 10/13/20 04:00 88 10/13/20 03:23 93 23 87 100 10/13/20 00:00 86 10/13/20 00:00 97.7 93 23 125/56 (79) 87 10/12/20 22:40 99 24 85 100 10/12/20 21:00 Bi-pap 10/12/20 20:08 93 129/70 10/12/20 20:00 101 10/12/20 20:00 97.7 104 18 146/72 (96) 84 10/12/20 19:51 92 Bi-Pap 100 10/12/20 19:34 89 25 92 100 10/12/20 16:00 90 10/12/20 16:00 98.1 98 22 125/75 (92) 89 10/12/20 13:08 99 23 91 100 10/12/20 12:00 97.9 97 22 131/76 (94) 88 10/12/20 12:00 84 10/12/20 09:47 85 18 134/67 92 10/12/20 09:19 84 10/12/20 09:18 104 165/80 10/12/20 09:17 104 18 165/80 92 10/12/20 09:00 Bi-pap 10/12/20 08:14 92 Bi-Pap 100 Intake and Output 10/12/20 10/13/20 19:00 07:00 Intake Total 500 ml 900 ml Output Total 700 ml 800 ml Balance -200 ml 100 ml Intake Oral 500 ml 900 ml Output Urine Total 700 ml 800 ml # Voids 3 Laboratory Tests 10/12/20 17:16: Arterial Blood pH 7.393, Arterial Blood Partial Pressure CO2 64.2*H, Arterial Blood Partial Pressure O2 47.3*L, Arterial Blood HCO3 38.3H, Arterial Blood Oxygen Saturation 81.3*L, Arterial Blood Base Excess 11.4*H, Rico Test Positive Height (Feet): 5 Height (Inches): 1.00 Weight (Pounds): 210 Objective General Appearance: WD/WN, alert, nad. 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, no motor/sensory deficits, alert, oriented x 3, responsive, normal mood/affect Assessment/Plan Problem List: (1) Facial cellulitis ICD Codes: L03.211 - Cellulitis of face SNOMED: 260708370 (2) COPD exacerbation ICD Codes: J44.1 - COPD exacerbation SNOMED: 102237231 (3) Toxic metabolic encephalopathy ICD Codes: G92 - Toxic encephalopathy SNOMED: 046019179 (4) Hypertension, malignant ICD Codes: I10 - Hypertension, malignant SNOMED: 31785880 (5) Diabetes mellitus ICD Codes: E11.9 - Diabetes mellitus SNOMED: 23953350 Status: stable, progressing Assessment/Plan: cont o2 bipap monitor abg monitor cxr cough rx cont inhalers schedule xopenex HHN steroids dvt/stress ulcer prophylaxis d/w family x 10 mins Floyd Downey MD Oct 13, 2020 08:04
[2020-10-13] MEDS: Nystatin Susp 500,000 units/5ml ORAL SCH ×4 (09:00→21:41)
[2020-10-13] MEDS: guaiFENesin ER 600mg tab ORAL SCH ×2 (09:01→17:16)
[2020-10-13] MEDS: Anastrazole 1mg tab ORAL SCH (09:01)
[2020-10-13] MEDS: Lactobacillus-GG tablet ORAL SCH ×2 (09:01→17:16)
[2020-10-13] MEDS: Ascorbic Acid 500mg tab ORAL SCH ×2 (09:01→17:16)
[2020-10-13] MEDS: Vitamin B Complex Tab ORAL SCH (09:01)
[2020-10-13] MEDS: Vitamin D 1000 units Tab ORAL SCH (09:01)
[2020-10-13] MEDS: Docusate 250mg cap ORAL SCH (09:01)
[2020-10-13] MEDS: Zinc Sulfate 220mg ORAL SCH (09:01)
[2020-10-13] MEDS: Sertraline 100mg tab ORAL SCH (09:02)
[2020-10-13] MEDS: dilTIAZem HCl ER 180mg cap ORAL SCH ×2 (09:02→21:42)
[2020-10-13] MEDS: Enoxaparin 40mg Inj SUBQ SCH ×2 (09:03→17:18)
[2020-10-13] MEDS: Levemir Flexpen SUBQ SCH ×2 (09:09→21:00)
[2020-10-13] MEDS: guaiFENesin w/Codeine 5ml Liq ud ORAL PRN (09:29)
[2020-10-13] MEDS: LORazepam 1mg tab ORAL PRN ×3 (09:44→21:51)
--- NOTE | 2020-10-13 10:54 | Pulmonology Progress Note ---
Subjective ROS Limited/Unobtainable: No Constitutional: Denies: fever, chills Gastrointestinal/Abdominal: Denies: nausea, vomiting, diarrhea Musculoskeletal: Denies: pain Allergies: Coded Allergies: AMOXICILLIN (Verified Allergy, Mild, RASH HIVES, 09/29/13) ERYTHROMYCIN BASE (Unverified Allergy, Unknown, 10/13/17) IODINE (Verified Allergy, Unknown, 09/29/13) PENICILLINS (Verified Allergy, Unknown, RASH HIVES, 09/29/13) All Systems: reviewed and negative except above Subjective care noted borderline oxygen saturation + COVID and on isolation on diuretics on 100% on BIPAP Objective Last 24 Hour Vital Signs Date Time Temp Pulse Resp B/P (MAP) Pulse Ox O2 Delivery O2 Flow Rate FiO2 10/13/20 09:44 90 25 134/72 89 10/13/20 09:02 90 134/72 10/13/20 08:00 97.2 85 20 134/74 (94) 89 10/13/20 04:00 98.1 79 25 117/65 (82) 89 10/13/20 04:00 88 10/13/20 03:23 93 23 87 100 10/13/20 00:00 86 10/13/20 00:00 97.7 93 23 125/56 (79) 87 10/12/20 22:40 99 24 85 100 10/12/20 21:00 Bi-pap 10/12/20 20:08 93 129/70 10/12/20 20:00 101 10/12/20 20:00 97.7 104 18 146/72 (96) 84 10/12/20 19:51 92 Bi-Pap 100 10/12/20 19:34 89 25 92 100 10/12/20 16:00 90 10/12/20 16:00 98.1 98 22 125/75 (92) 89 10/12/20 13:08 99 23 91 100 10/12/20 12:00 97.9 97 22 131/76 (94) 88 10/12/20 12:00 84 Intake and Output 10/12/20 10/13/20 19:00 07:00 Intake Total 500 ml 900 ml Output Total 700 ml 800 ml Balance -200 ml 100 ml Intake Oral 500 ml 900 ml Output Urine Total 700 ml 800 ml # Voids 3 Objective deferred due to COVID no distress alert nonfocal Laboratory Tests 10/12/20 17:16: Arterial Blood pH 7.393, Arterial Blood Partial Pressure CO2 64.2*H, Arterial Blood Partial Pressure O2 47.3*L, Arterial Blood HCO3 38.3H, Arterial Blood Oxygen Saturation 81.3*L, Arterial Blood Base Excess 11.4*H, Rico Test Positive Current Medications Medications (Trade) Dose Ordered Sig/Sera Route PRN Reason Start Time Stop Time Status Last Admin Dose Admin Acetaminophen (Tylenol) 650 mg Q4H PRN ORAL Mild Pain (Pain Scale 1-3) 09/18/20 23:45 10/18/20 23:44 10/13/20 09:30 Anastrozole (Arimidex) 1 mg DAILY ORAL 09/19/20 09:00 10/19/20 08:59 10/13/20 09:01 Ascorbic Acid (Vitamin C) 500 mg TWICE A DAY ORAL 09/30/20 20:00 10/30/20 19:59 10/13/20 09:01 Budesonide/ Formoterol Fumarate (Symbicort 160/ 4.5) 2 puff BIDRT INH 10/02/20 11:00 12/31/20 10:59 10/12/20 22:24 Cetylpyridinium Chloride (Cepacol) 1 lozg EVERY 2 HOURS PRN LAURA For Cough 09/25/20 18:15 12/24/20 18:14 09/28/20 21:19 Chlorhexidine Gluconate (Brandee-Hex 2%) 1 applic DAILY@2000 TOPIC 09/30/20 20:00 12/29/20 19:59 10/12/20 20:07 Clonidine HCl (Catapres Tab) 0.1 mg Q4H PRN ORAL SBP > 160 09/19/20 17:15 12/18/20 17:14 09/24/20 03:09 Cyclobenzaprine HCl (Flexeril) 10 mg TIDPRN PRN ORAL Muscle Spasm 10/11/20 00:00 10/18/20 00:00 Dextrose (Dextrose 50%) 25 ml Q30M PRN IV Hypoglycemia 10/02/20 22:00 12/31/20 21:59 Dextrose (Dextrose 50%) 50 ml Q30M PRN IV Hypoglycemia 10/02/20 22:00 12/31/20 21:59 Diltiazem HCl (Cardizem ER) 180 mg BID@0900,2100 ORAL 10/11/20 09:00 11/10/20 08:59 10/13/20 09:02 Docusate Sodium (Colace) 250 mg DAILY ORAL 10/03/20 15:15 11/02/20 15:14 10/13/20 09:01 Enoxaparin Sodium (Lovenox) 40 mg BID SUBQ 09/30/20 20:00 12/29/20 19:59 10/13/20 09:03 Fluticasone Propionate (Flonase) 1 spray QHS NASAL 09/18/20 21:00 10/18/20 20:59 10/12/20 20:08 Furosemide (Lasix) 40 mg DAILY IV 10/12/20 09:00 11/11/20 08:59 10/13/20 09:01 Guaifenesin (Mucinex ER) 600 mg TWICE A DAY ORAL 09/25/20 09:00 12/24/20 08:59 10/13/20 09:01 Guaifenesin/ Codeine Phosphate (Robitussin with codeine) 10 ml Q6H PRN ORAL For Cough 10/12/20 01:45 11/11/20 01:44 10/13/20 09:29 Hydroxyzine HCl (Atarax) 50 mg Q4H PRN ORAL Itching 09/19/20 06:15 10/19/20 06:14 10/12/20 04:48 Insulin Aspart (NovoLOG) BEFORE MEALS AND HS SUBQ 10/03/20 06:30 01/01/21 06:29 10/13/20 06:00 Insulin Detemir (Levemir) 15 units BEDTIME SUBQ 10/11/20 21:00 12/31/20 21:59 10/12/20 20:26 Insulin Detemir (Levemir) 18 units DAILY SUBQ 10/11/20 09:00 01/09/21 08:59 10/13/20 09:09 Lactobacillus Acidophilus (Culturelle) 1 tab TWICE A DAY ORAL 09/25/20 18:00 12/24/20 17:59 10/13/20 09:01 Levalbuterol HCl (Xopenex) 1.25 mg Q8H PRN HHN Shortness of Breath 10/12/20 08:45 10/17/20 08:44 Lorazepam (Ativan) 1 mg Q4H PRN ORAL For Anxiety 10/13/20 09:45 10/20/20 09:44 10/13/20 09:44 Magnesium Hydroxide (Mom) 30 ml DAILYPRN PRN ORAL Constipation 10/03/20 15:15 11/02/20 15:14 10/07/20 11:37 Methylprednisolone Sodium Succinate (Solu-MEDROL) 40 mg EVERY 8 HOURS IVP 10/12/20 09:00 01/10/21 08:59 10/13/20 05:54 Nystatin (Nystatin) 5 ml QID ORAL 10/11/20 09:00 10/18/20 08:59 10/13/20 09:00 Ondansetron HCl (Zofran) 4 mg Q6H PRN IVP Nausea & Vomiting 09/18/20 19:00 10/18/20 18:59 10/13/20 09:31 Pantoprazole (Protonix) 40 mg DAILY ORAL 09/19/20 09:00 10/19/20 08:59 10/13/20 09:01 Sertraline HCl (Zoloft) 100 mg DAILY ORAL 09/19/20 09:00 10/19/20 08:59 10/13/20 09:02 Vitamin B Complex (Vitamin B Complex) 1 tab DAILY ORAL 09/21/20 09:00 12/20/20 08:59 10/13/20 09:01 Vitamin D (Vitamin D) 1,000 unit DAILY ORAL 09/30/20 20:00 10/30/20 19:59 10/13/20 09:01 Zinc Sulfate (Zinc Sulfate) 220 mg DAILY ORAL 09/30/20 20:00 12/29/20 19:59 10/13/20 09:01 Assessment/Plan Assessment/Plan ASSESSMENT: Chronic respiratory failure COPD exacerbation and facial cellulitis. diabetes, hypertension, chronic hypoxemia chronic debility, pulmonary congestion, COVID+ PLAN: on solumedrol monitor imaging respiratory care as is home meds supportive care oxygen therapy and monitor prognosis guarded BIPAP continuous 100% at risk for intubation impression, plan, and exam edited and reviewed in detail care discussed with Froilan Clarke MD Oct 13, 2020 10:54
[2020-10-13 12:00] VITALS: BP 144/93
[2020-10-13 16:00] VITALS: BP 139/89
--- NOTE | 2020-10-13 17:02 | Infectious Diseases Prog Note ---
Assessment/Plan Assessment/Plan antibiotics : none A 1. Klebsiella urinary tract infection s/p rx 2. Facial cellulitis improving 3. COPD exacerbation. 4. diabetes mellitus 5. hypertension 6. CHF 7. breast cancer 8. COVID 19 pneumonia on 100 % Fi O2, saturation 90 % s/p remdesivir, dexamethasone P 1. continue solumedrol 2. will follow up cultures Subjective Respiratory: Reports: shortness of breath, dry cough Gastrointestinal/Abdominal: Reports: nausea; Denies: vomiting, diarrhea Musculoskeletal: Denies: pain Allergies: Coded Allergies: AMOXICILLIN (Verified Allergy, Mild, RASH HIVES, 09/29/13) ERYTHROMYCIN BASE (Unverified Allergy, Unknown, 10/13/17) IODINE (Verified Allergy, Unknown, 09/29/13) PENICILLINS (Verified Allergy, Unknown, RASH HIVES, 09/29/13) Objective Last 24 Hour Vital Signs Date Time Temp Pulse Resp B/P (MAP) Pulse Ox O2 Delivery O2 Flow Rate FiO2 10/13/20 16:00 98.5 99 19 139/89 (106) 90 10/13/20 16:00 111 10/13/20 14:48 101 23 85 100 10/13/20 12:00 98.4 99 20 144/93 (110) 85 10/13/20 12:00 89 10/13/20 11:54 98 25 89 100 10/13/20 11:45 90 Bi-Pap 100 10/13/20 10:14 88 24 134/74 86 10/13/20 09:44 90 25 134/72 89 10/13/20 09:02 90 134/72 10/13/20 09:00 Bi-pap 10/13/20 08:00 97.2 85 20 134/74 (94) 89 10/13/20 07:46 72 10/13/20 04:00 98.1 79 25 117/65 (82) 89 10/13/20 04:00 88 10/13/20 03:23 93 23 87 100 10/13/20 00:00 86 10/13/20 00:00 97.7 93 23 125/56 (79) 87 10/12/20 22:40 99 24 85 100 10/12/20 21:00 Bi-pap 10/12/20 20:08 93 129/70 10/12/20 20:00 101 10/12/20 20:00 97.7 104 18 146/72 (96) 84 10/12/20 19:51 92 Bi-Pap 100 10/12/20 19:34 89 25 92 100 Height (Feet): 5 Height (Inches): 1.00 Weight (Pounds): 210 Laboratory Tests Test 10/12/20 17:16 10/12/20 20:11 10/13/20 05:56 Arterial Blood pH 7.393 (7.350-7.450) Arterial Blood Partial Pressure CO2 64.2 mmHg (35.0-45.0) *H Arterial Blood Partial Pressure O2 47.3 mmHg (75.0-100.0) Arterial Blood HCO3 38.3 mmol/L (22.0-26.0) H Arterial Blood Oxygen Saturation 81.3 % (95-100) *L Arterial Blood Base Excess 11.4 (-2-2) *H Rico Test Positive POC Whole Blood Glucose Pending Pending Current Medications Medications (Trade) Dose Ordered Sig/Sera Route PRN Reason Start Time Stop Time Status Last Admin Dose Admin Acetaminophen (Tylenol) 650 mg Q4H PRN ORAL Mild Pain (Pain Scale 1-3) 09/18/20 23:45 10/18/20 23:44 10/13/20 13:16 Anastrozole (Arimidex) 1 mg DAILY ORAL 09/19/20 09:00 10/19/20 08:59 10/13/20 09:01 Ascorbic Acid (Vitamin C) 500 mg TWICE A DAY ORAL 09/30/20 20:00 10/30/20 19:59 10/13/20 09:01 Budesonide/ Formoterol Fumarate (Symbicort 160/ 4.5) 2 puff BIDRT INH 10/02/20 11:00 12/31/20 10:59 10/13/20 10:00 Cetylpyridinium Chloride (Cepacol) 1 lozg EVERY 2 HOURS PRN LAURA For Cough 09/25/20 18:15 12/24/20 18:14 09/28/20 21:19 Chlorhexidine Gluconate (Brandee-Hex 2%) 1 applic DAILY@1999 TOPIC 09/30/20 20:00 12/29/20 19:59 10/12/20 20:07 Clonidine HCl (Catapres Tab) 0.1 mg Q4H PRN ORAL SBP > 160 09/19/20 17:15 12/18/20 17:14 09/24/20 03:09 Cyclobenzaprine HCl (Flexeril) 10 mg TIDPRN PRN ORAL Muscle Spasm 10/11/20 00:00 10/18/20 00:00 Dextrose (Dextrose 50%) 25 ml Q30M PRN IV Hypoglycemia 10/02/20 22:00 12/31/20 21:59 Dextrose (Dextrose 50%) 50 ml Q30M PRN IV Hypoglycemia 10/02/20 22:00 12/31/20 21:59 Diltiazem HCl (Cardizem ER) 180 mg BID@0900,2100 ORAL 10/11/20 09:00 11/10/20 08:59 10/13/20 09:02 Docusate Sodium (Colace) 250 mg DAILY ORAL 10/03/20 15:15 11/02/20 15:14 10/13/20 09:01 Enoxaparin Sodium (Lovenox) 40 mg BID SUBQ 09/30/20 20:00 12/29/20 19:59 10/13/20 09:03 Fluticasone Propionate (Flonase) 1 spray QHS NASAL 09/18/20 21:00 10/18/20 20:59 10/12/20 20:08 Furosemide (Lasix) 40 mg DAILY IV 10/12/20 09:00 11/11/20 08:59 10/13/20 09:01 Guaifenesin (Mucinex ER) 600 mg TWICE A DAY ORAL 09/25/20 09:00 12/24/20 08:59 10/13/20 09:01 Guaifenesin/ Codeine Phosphate (Robitussin with codeine) 10 ml Q6H PRN ORAL For Cough 10/12/20 01:45 11/11/20 01:44 10/13/20 09:29 Hydroxyzine HCl (Atarax) 50 mg Q4H PRN ORAL Itching 09/19/20 06:15 10/19/20 06:14 10/12/20 04:48 Insulin Aspart (NovoLOG) BEFORE MEALS AND HS SUBQ 10/03/20 06:30 01/01/21 06:29 10/13/20 11:42 Insulin Detemir (Levemir) 15 units BEDTIME SUBQ 10/11/20 21:00 12/31/20 21:59 10/12/20 20:26 Insulin Detemir (Levemir) 18 units DAILY SUBQ 10/11/20 09:00 01/09/21 08:59 10/13/20 09:09 Lactobacillus Acidophilus (Culturelle) 1 tab TWICE A DAY ORAL 09/25/20 18:00 12/24/20 17:59 10/13/20 09:01 Levalbuterol HCl (Xopenex) 1.25 mg Q8H PRN HHN Shortness of Breath 10/12/20 08:45 10/17/20 08:44 Lorazepam (Ativan) 1 mg Q4H PRN ORAL For Anxiety 10/13/20 09:45 10/20/20 09:44 10/13/20 09:44 Magnesium Hydroxide (Mom) 30 ml DAILYPRN PRN ORAL Constipation 10/03/20 15:15 11/02/20 15:14 10/07/20 11:37 Methylprednisolone Sodium Succinate (Solu-MEDROL) 40 mg EVERY 8 HOURS IVP 10/12/20 09:00 01/10/21 08:59 10/13/20 13:01 Nystatin (Nystatin) 5 ml QID ORAL 10/11/20 09:00 10/18/20 08:59 10/13/20 13:01 Ondansetron HCl (Zofran) 4 mg Q6H PRN IVP Nausea & Vomiting 09/18/20 19:00 10/18/20 18:59 10/13/20 09:31 Pantoprazole (Protonix) 40 mg DAILY ORAL 09/19/20 09:00 10/19/20 08:59 10/13/20 09:01 Sertraline HCl (Zoloft) 100 mg DAILY ORAL 09/19/20 09:00 10/19/20 08:59 10/13/20 09:02 Vitamin B Complex (Vitamin B Complex) 1 tab DAILY ORAL 09/21/20 09:00 12/20/20 08:59 10/13/20 09:01 Vitamin D (Vitamin D) 1,000 unit DAILY ORAL 09/30/20 20:00 10/30/20 19:59 10/13/20 09:01 Zinc Sulfate (Zinc Sulfate) 220 mg DAILY ORAL 09/30/20 20:00 12/29/20 19:59 10/13/20 09:01 Lo Delcid MD Oct 13, 2020 17:02
[2020-10-13 20:00] VITALS: BP 131/82
[2020-10-13] MEDS: Dyna-Hex 2% Top Sol 2oz TOPIC SCH (20:04)
--- NOTE | 2020-10-13 20:55 | Psychiatric Progress Note ---
Psychiatry Progress Note Psychiatry Progress Note Subjective more anxious sob asked more ativan Medications Current Medications Medications (Trade) Dose Ordered Sig/Sera Route PRN Reason Start Time Stop Time Status Last Admin Dose Admin Acetaminophen (Tylenol) 650 mg Q4H PRN ORAL Mild Pain (Pain Scale 1-3) 09/18/20 23:45 10/18/20 23:44 10/13/20 17:17 Anastrozole (Arimidex) 1 mg DAILY ORAL 09/19/20 09:00 10/19/20 08:59 10/13/20 09:01 Ascorbic Acid (Vitamin C) 500 mg TWICE A DAY ORAL 09/30/20 20:00 10/30/20 19:59 10/13/20 17:16 Budesonide/ Formoterol Fumarate (Symbicort 160/ 4.5) 2 puff BIDRT INH 10/02/20 11:00 12/31/20 10:59 10/13/20 10:00 Cetylpyridinium Chloride (Cepacol) 1 lozg EVERY 2 HOURS PRN LAURA For Cough 09/25/20 18:15 12/24/20 18:14 09/28/20 21:19 Chlorhexidine Gluconate (Brandee-Hex 2%) 1 applic DAILY@1999 TOPIC 09/30/20 20:00 12/29/20 19:59 10/13/20 20:04 Clonidine HCl (Catapres Tab) 0.1 mg Q4H PRN ORAL SBP > 160 09/19/20 17:15 12/18/20 17:14 09/24/20 03:09 Cyclobenzaprine HCl (Flexeril) 10 mg TIDPRN PRN ORAL Muscle Spasm 10/11/20 00:00 10/18/20 00:00 Dextrose (Dextrose 50%) 25 ml Q30M PRN IV Hypoglycemia 10/02/20 22:00 12/31/20 21:59 Dextrose (Dextrose 50%) 50 ml Q30M PRN IV Hypoglycemia 10/02/20 22:00 12/31/20 21:59 Diltiazem HCl (Cardizem ER) 180 mg BID@0900,2100 ORAL 10/11/20 09:00 11/10/20 08:59 10/13/20 09:02 Docusate Sodium (Colace) 250 mg DAILY ORAL 10/03/20 15:15 11/02/20 15:14 10/13/20 09:01 Enoxaparin Sodium (Lovenox) 40 mg BID SUBQ 09/30/20 20:00 12/29/20 19:59 10/13/20 17:18 Fluticasone Propionate (Flonase) 1 spray QHS NASAL 09/18/20 21:00 10/18/20 20:59 10/12/20 20:08 Furosemide (Lasix) 40 mg DAILY IV 10/12/20 09:00 11/11/20 08:59 10/13/20 09:01 Guaifenesin (Mucinex ER) 600 mg TWICE A DAY ORAL 09/25/20 09:00 12/24/20 08:59 10/13/20 17:16 Guaifenesin/ Codeine Phosphate (Robitussin with codeine) 10 ml Q6H PRN ORAL For Cough 10/12/20 01:45 11/11/20 01:44 10/13/20 09:29 Hydroxyzine HCl (Atarax) 50 mg Q4H PRN ORAL Itching 09/19/20 06:15 10/19/20 06:14 10/12/20 04:48 Insulin Aspart (NovoLOG) BEFORE MEALS AND HS SUBQ 10/03/20 06:30 01/01/21 06:29 10/13/20 16:30 Insulin Detemir (Levemir) 15 units BEDTIME SUBQ 10/11/20 21:00 12/31/20 21:59 10/12/20 20:26 Insulin Detemir (Levemir) 18 units DAILY SUBQ 10/11/20 09:00 01/09/21 08:59 10/13/20 09:09 Lactobacillus Acidophilus (Culturelle) 1 tab TWICE A DAY ORAL 09/25/20 18:00 12/24/20 17:59 10/13/20 17:16 Levalbuterol HCl (Xopenex) 1.25 mg Q8H PRN HHN Shortness of Breath 10/12/20 08:45 10/17/20 08:44 Lorazepam (Ativan) 1 mg Q4H PRN ORAL For Anxiety 10/13/20 09:45 10/20/20 09:44 10/13/20 17:16 Magnesium Hydroxide (Mom) 30 ml DAILYPRN PRN ORAL Constipation 10/03/20 15:15 11/02/20 15:14 10/07/20 11:37 Methylprednisolone Sodium Succinate (Solu-MEDROL) 40 mg EVERY 8 HOURS IVP 10/12/20 09:00 01/10/21 08:59 10/13/20 13:01 Nystatin (Nystatin) 5 ml QID ORAL 10/11/20 09:00 10/18/20 08:59 10/13/20 17:16 Ondansetron HCl (Zofran) 4 mg Q6H PRN IVP Nausea & Vomiting 09/18/20 19:00 10/18/20 18:59 10/13/20 17:16 Pantoprazole (Protonix) 40 mg DAILY ORAL 09/19/20 09:00 10/19/20 08:59 10/13/20 09:01 Sertraline HCl (Zoloft) 100 mg DAILY ORAL 09/19/20 09:00 10/19/20 08:59 10/13/20 09:02 Vitamin B Complex (Vitamin B Complex) 1 tab DAILY ORAL 09/21/20 09:00 12/20/20 08:59 10/13/20 09:01 Vitamin D (Vitamin D) 1,000 unit DAILY ORAL 09/30/20 20:00 10/30/20 19:59 10/13/20 09:01 Zinc Sulfate (Zinc Sulfate) 220 mg DAILY ORAL 09/30/20 20:00 12/29/20 19:59 10/13/20 09:01 Neurological/Psychiatric: Reports: anxiety Allergies: Coded Allergies: AMOXICILLIN (Verified Allergy, Mild, RASH HIVES, 09/29/13) ERYTHROMYCIN BASE (Unverified Allergy, Unknown, 10/13/17) IODINE (Verified Allergy, Unknown, 09/29/13) PENICILLINS (Verified Allergy, Unknown, RASH HIVES, 09/29/13) Objective Data Height (Feet): 5 Height (Inches): 1.00 Weight (Pounds): 210 General Appearance: WD/WN, alert, mild distress Additional Comments: alert and oriented times self, place, and situation. Mood is anxious. Affect is blunted, congruent with mood. Thought process is concrete. Thought content, there is no suicidal or homicidal ideation. Cognition is intact. Insight and judgment is fair. Assessment/Plan [place] I: ASSESSMENT: [place] I Major depressive disorder. Anxiety disorder. [place] II borderline [place] III COPD. [place] IV Low. [place] V 50 PLAN: 1. Continue Zoloft. 2. Ativan and Ambien prn 3. The patient would like only melatonin. 4. Provide the patient with reality orientation and supportive therapy. Status: stable, progressing Status Narrative ASSESSMENT: [place] I Major depressive disorder. Anxiety disorder. [place] II borderline [place] III COPD. [place] IV Low. [place] V 50 PLAN: 1. Continue Zoloft. 2. Ativan and Ambien prn 3. The patient would like only melatonin. 4. Provide the patient with reality orientation and supportive therapy. Assessment/Plan: ASSESSMENT: [place] I Major depressive disorder. Anxiety disorder. [place] II borderline [place] III COPD. [place] IV Low. [place] V 50 PLAN: 1. Continue Zoloft. 2. Ativan and Ambien prn 3. The patient would like only melatonin. 4. Provide the patient with reality orientation and supportive therapy. Jayy Andino MD Oct 13, 2020 20:55
[2020-10-13] MEDS: Flonase Nasal Inhaler 16gm NASAL SCH (21:00)
[2020-10-14] VITALS: BP 131/88
[2020-10-14] MEDS: guaiFENesin w/Codeine 5ml Liq ud ORAL PRN ×3 (00:18→16:09)
[2020-10-14 04:00] VITALS: BP 133/66
[2020-10-14] MEDS: Solu-MEDROL 40mg Inj IVP SCH ×3 (06:31→21:32)
[2020-10-14] MEDS: NovoLOG Insulin Flexpen SUBQ SCH ×4 (06:40→20:29)
[2020-10-14 08:00] VITALS: BP 130/76
[2020-10-14] MEDS: Nystatin Susp 500,000 units/5ml ORAL SCH ×4 (09:31→20:09)
[2020-10-14] MEDS: Zinc Sulfate 220mg ORAL SCH (09:32)
[2020-10-14] MEDS: guaiFENesin ER 600mg tab ORAL SCH ×2 (09:32→18:00)
[2020-10-14] MEDS: LORazepam 1mg tab ORAL PRN ×2 (09:32→16:09)
[2020-10-14] MEDS: Lactobacillus-GG tablet ORAL SCH ×2 (09:32→18:00)
[2020-10-14] MEDS: Vitamin D 1000 units Tab ORAL SCH (09:32)
[2020-10-14] MEDS: Ascorbic Acid 500mg tab ORAL SCH ×2 (09:32→18:00)
[2020-10-14] MEDS: Sertraline 100mg tab ORAL SCH (09:32)
[2020-10-14] MEDS: dilTIAZem HCl ER 180mg cap ORAL SCH ×2 (09:33→20:09)
[2020-10-14] MEDS: Vitamin B Complex Tab ORAL SCH (09:33)
[2020-10-14] MEDS: Docusate 250mg cap ORAL SCH (09:33)
[2020-10-14] MEDS: Anastrazole 1mg tab ORAL SCH (09:34)
[2020-10-14] MEDS: Enoxaparin 40mg Inj SUBQ SCH ×2 (09:35→18:00)
[2020-10-14] MEDS: Levemir Flexpen SUBQ SCH ×2 (09:38→20:28)
[2020-10-14 12:00] VITALS: BP 130/76
--- NOTE | 2020-10-14 12:09 | General Progress Note ---
Subjective ROS Limited/Unobtainable: No Constitutional: Reports: malaise, weakness HEENT: Reports: no symptoms Cardiovascular: Reports: no symptoms Respiratory: Reports: cough, shortness of breath - ` Gastrointestinal/Abdominal: Reports: no symptoms Genitourinary: Reports: no symptoms Neurologic/Psychiatric: Reports: no symptoms Endocrine: Reports: no symptoms Hematologic/Lymphatic: Reports: anemia Allergies: Coded Allergies: AMOXICILLIN (Verified Allergy, Mild, RASH HIVES, 09/29/13) ERYTHROMYCIN BASE (Unverified Allergy, Unknown, 10/13/17) IODINE (Verified Allergy, Unknown, 09/29/13) PENICILLINS (Verified Allergy, Unknown, RASH HIVES, 09/29/13) All Systems: reviewed and negative except above Subjective no overnight events. remains stable on bipap. O2 sats low 90s. intermittent anxiety. Objective Last 24 Hour Vital Signs Date Time Temp Pulse Resp B/P (MAP) Pulse Ox O2 Delivery O2 Flow Rate FiO2 10/14/20 10:30 79 27 87 100 10/14/20 09:33 77 130/76 10/14/20 08:05 Bi-pap 10/14/20 08:00 77 10/14/20 08:00 100 10/14/20 08:00 97.9 90 20 130/76 (94) 89 10/14/20 06:40 94 26 88 100 10/14/20 06:40 88 Bi-Pap 100 10/14/20 04:00 98.0 84 22 133/66 (88) 88 10/14/20 04:00 83 10/14/20 03:57 100 10/14/20 00:50 107 29 88 100 10/14/20 00:00 99 10/14/20 00:00 Bi-pap 10/14/20 00:00 97.8 99 22 131/88 (102) 90 10/13/20 22:21 94 20 131/82 90 10/13/20 21:51 99 22 137/86 90 10/13/20 21:42 94 137/86 10/13/20 21:00 Bi-pap 10/13/20 20:00 104 10/13/20 20:00 97.4 105 20 131/82 (98) 90 10/13/20 19:00 102 22 89 100 10/13/20 19:00 89 Bi-Pap 100 10/13/20 17:46 98 20 130/86 86 10/13/20 17:16 111 19 139/89 90 10/13/20 16:00 98.5 99 19 139/89 (106) 90 10/13/20 16:00 111 10/13/20 14:48 101 23 85 100 Intake and Output 10/13/20 10/14/20 19:00 07:00 Intake Total 900 ml 500 ml Output Total 800 ml 650 ml Balance 100 ml -150 ml Intake Oral 900 ml 500 ml Output Urine Total 800 ml 650 ml # Voids 3 Laboratory Tests 10/13/20 20:22: POC Whole Blood Glucose [Pending] 10/14/20 00:08: POC Whole Blood Glucose [Pending] 10/14/20 06:36: POC Whole Blood Glucose [Pending] 10/14/20 11:48: POC Whole Blood Glucose 238H Height (Feet): 5 Height (Inches): 1.00 Weight (Pounds): 210 Objective General Appearance: WD/WN, alert, nad. 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, no motor/sensory deficits, alert, oriented x 3, responsive, normal mood/affect Assessment/Plan Problem List: (1) Facial cellulitis ICD Codes: L03.211 - Cellulitis of face SNOMED: 745572460 (2) COPD exacerbation ICD Codes: J44.1 - COPD exacerbation SNOMED: 723622094 (3) Toxic metabolic encephalopathy ICD Codes: G92 - Toxic encephalopathy SNOMED: 193748546 (4) Hypertension, malignant ICD Codes: I10 - Hypertension, malignant SNOMED: 86329524 (5) Diabetes mellitus ICD Codes: E11.9 - Diabetes mellitus SNOMED: 69616075 Status: stable, progressing Assessment/Plan: cont o2 bipap monitor abg monitor cxr cough rx cont inhalers schedule xopenex HHN steroids dvt/stress ulcer prophylaxis Floyd Downey MD Oct 14, 2020 12:09
--- NOTE | 2020-10-14 13:22 | Infectious Diseases Prog Note ---
Assessment/Plan Assessment/Plan A: 1. Klebsiella urinary tract infection. 2. Facial cellulitis. 3. COPD exacerbation. 4. DM with hyperglycemia 5 HPN 6. Penicillin allergy 7. COVID19 pneumonia PLAN: 1. Finished remdesivir course 2. continue Solumedrol Subjective ROS Limited/Unobtainable: Yes Constitutional: Denies: fever Allergies: Coded Allergies: AMOXICILLIN (Verified Allergy, Mild, RASH HIVES, 09/29/13) ERYTHROMYCIN BASE (Unverified Allergy, Unknown, 10/13/17) IODINE (Verified Allergy, Unknown, 09/29/13) PENICILLINS (Verified Allergy, Unknown, RASH HIVES, 09/29/13) Objective Last 24 Hour Vital Signs Date Time Temp Pulse Resp B/P (MAP) Pulse Ox O2 Delivery O2 Flow Rate FiO2 10/14/20 12:00 97.9 90 20 130/76 (94) 89 10/14/20 12:00 100 10/14/20 12:00 101 10/14/20 10:30 79 27 87 100 10/14/20 09:33 77 130/76 10/14/20 08:05 Bi-pap 10/14/20 08:00 77 10/14/20 08:00 100 10/14/20 08:00 97.9 90 20 130/76 (94) 89 10/14/20 06:40 94 26 88 100 10/14/20 06:40 88 Bi-Pap 100 10/14/20 04:00 98.0 84 22 133/66 (88) 88 10/14/20 04:00 83 10/14/20 03:57 100 10/14/20 00:50 107 29 88 100 10/14/20 00:00 99 10/14/20 00:00 Bi-pap 10/14/20 00:00 97.8 99 22 131/88 (102) 90 10/13/20 22:21 94 20 131/82 90 10/13/20 21:51 99 22 137/86 90 10/13/20 21:42 94 137/86 10/13/20 21:00 Bi-pap 10/13/20 20:00 104 10/13/20 20:00 97.4 105 20 131/82 (98) 90 10/13/20 19:00 102 22 89 100 10/13/20 19:00 89 Bi-Pap 100 10/13/20 17:46 98 20 130/86 86 10/13/20 17:16 111 19 139/89 90 10/13/20 16:00 98.5 99 19 139/89 (106) 90 10/13/20 16:00 111 10/13/20 14:48 101 23 85 100 Height (Feet): 5 Height (Inches): 1.00 Weight (Pounds): 210 HEENT: mucous membranes moist Respiratory/Chest: other - on BIPAP Cardiovascular: normal rate Abdomen: soft, non tender Neurologic/Psychiatric: other - sleeping Laboratory Tests Test 10/13/20 20:22 10/14/20 00:08 10/14/20 06:36 10/14/20 11:48 POC Whole Blood Glucose Pending Pending Pending 238 MG/DL (74-106) H Current Medications Medications (Trade) Dose Ordered Sig/Sera Route PRN Reason Start Time Stop Time Status Last Admin Dose Admin Acetaminophen (Tylenol) 650 mg Q4H PRN ORAL Mild Pain (Pain Scale 1-3) 09/18/20 23:45 10/18/20 23:44 10/14/20 00:19 Anastrozole (Arimidex) 1 mg DAILY ORAL 09/19/20 09:00 10/19/20 08:59 10/14/20 09:34 Ascorbic Acid (Vitamin C) 500 mg TWICE A DAY ORAL 09/30/20 20:00 10/30/20 19:59 10/14/20 09:32 Budesonide/ Formoterol Fumarate (Symbicort 160/ 4.5) 2 puff BIDRT INH 10/02/20 11:00 12/31/20 10:59 10/14/20 10:56 Cetylpyridinium Chloride (Cepacol) 1 lozg EVERY 2 HOURS PRN LAURA For Cough 09/25/20 18:15 12/24/20 18:14 09/28/20 21:19 Chlorhexidine Gluconate (Brandee-Hex 2%) 1 applic DAILY@2000 TOPIC 09/30/20 20:00 12/29/20 19:59 10/13/20 20:04 Clonidine HCl (Catapres Tab) 0.1 mg Q4H PRN ORAL SBP > 160 09/19/20 17:15 12/18/20 17:14 09/24/20 03:09 Cyclobenzaprine HCl (Flexeril) 10 mg TIDPRN PRN ORAL Muscle Spasm 10/11/20 00:00 10/18/20 00:00 Dextrose (Dextrose 50%) 25 ml Q30M PRN IV Hypoglycemia 10/02/20 22:00 12/31/20 21:59 Dextrose (Dextrose 50%) 50 ml Q30M PRN IV Hypoglycemia 10/02/20 22:00 12/31/20 21:59 Diltiazem HCl (Cardizem ER) 180 mg BID@0900,2100 ORAL 10/11/20 09:00 11/10/20 08:59 10/14/20 09:33 Docusate Sodium (Colace) 250 mg DAILY ORAL 10/03/20 15:15 11/02/20 15:14 10/14/20 09:33 Enoxaparin Sodium (Lovenox) 40 mg BID SUBQ 09/30/20 20:00 12/29/20 19:59 10/14/20 09:35 Fluticasone Propionate (Flonase) 1 spray QHS NASAL 09/18/20 21:00 10/18/20 20:59 10/13/20 21:00 Furosemide (Lasix) 40 mg DAILY IV 10/12/20 09:00 11/11/20 08:59 10/14/20 09:33 Guaifenesin (Mucinex ER) 600 mg TWICE A DAY ORAL 09/25/20 09:00 12/24/20 08:59 10/14/20 09:32 Guaifenesin/ Codeine Phosphate (Robitussin with codeine) 10 ml Q6H PRN ORAL For Cough 10/12/20 01:45 11/11/20 01:44 10/14/20 09:33 Hydroxyzine HCl (Atarax) 50 mg Q4H PRN ORAL Itching 09/19/20 06:15 10/19/20 06:14 10/12/20 04:48 Insulin Aspart (NovoLOG) BEFORE MEALS AND HS SUBQ 10/03/20 06:30 01/01/21 06:29 10/14/20 11:55 Insulin Detemir (Levemir) 15 units BEDTIME SUBQ 10/11/20 21:00 12/31/20 21:59 10/12/20 20:26 Insulin Detemir (Levemir) 18 units DAILY SUBQ 10/11/20 09:00 01/09/21 08:59 10/14/20 09:38 Lactobacillus Acidophilus (Culturelle) 1 tab TWICE A DAY ORAL 09/25/20 18:00 12/24/20 17:59 10/14/20 09:32 Levalbuterol HCl (Xopenex) 1.25 mg Q8H PRN HHN Shortness of Breath 10/12/20 08:45 10/17/20 08:44 Lorazepam (Ativan) 1 mg Q4H PRN ORAL For Anxiety 10/13/20 09:45 10/20/20 09:44 10/14/20 09:32 Magnesium Hydroxide (Mom) 30 ml DAILYPRN PRN ORAL Constipation 10/03/20 15:15 11/02/20 15:14 10/07/20 11:37 Methylprednisolone Sodium Succinate (Solu-MEDROL) 40 mg EVERY 8 HOURS IVP 10/12/20 09:00 01/10/21 08:59 10/14/20 06:31 Nystatin (Nystatin) 5 ml QID ORAL 10/11/20 09:00 10/18/20 08:59 10/14/20 09:31 Ondansetron HCl (Zofran) 4 mg Q6H PRN IVP Nausea & Vomiting 09/18/20 19:00 10/18/20 18:59 10/14/20 00:19 Pantoprazole (Protonix) 40 mg DAILY ORAL 09/19/20 09:00 10/19/20 08:59 10/14/20 09:32 Sertraline HCl (Zoloft) 100 mg DAILY ORAL 09/19/20 09:00 10/19/20 08:59 10/14/20 09:32 Vitamin B Complex (Vitamin B Complex) 1 tab DAILY ORAL 09/21/20 09:00 12/20/20 08:59 10/14/20 09:33 Vitamin D (Vitamin D) 1,000 unit DAILY ORAL 09/30/20 20:00 10/30/20 19:59 10/14/20 09:32 Zinc Sulfate (Zinc Sulfate) 220 mg DAILY ORAL 09/30/20 20:00 12/29/20 19:59 10/14/20 09:32 Rene Schultz MD Oct 14, 2020 13:22
--- NOTE | 2020-10-14 14:26 | Pulmonology Progress Note ---
Subjective ROS Limited/Unobtainable: Yes Constitutional: Denies: fever Gastrointestinal/Abdominal: Reports: nausea; Denies: vomiting, diarrhea Musculoskeletal: Denies: pain Allergies: Coded Allergies: AMOXICILLIN (Verified Allergy, Mild, RASH HIVES, 09/29/13) ERYTHROMYCIN BASE (Unverified Allergy, Unknown, 10/13/17) IODINE (Verified Allergy, Unknown, 09/29/13) PENICILLINS (Verified Allergy, Unknown, RASH HIVES, 09/29/13) All Systems: reviewed and negative except above Subjective care noted borderline oxygen saturation + COVID and on isolation on diuretics on 100% on BIPAP Objective Last 24 Hour Vital Signs Date Time Temp Pulse Resp B/P (MAP) Pulse Ox O2 Delivery O2 Flow Rate FiO2 10/14/20 12:00 97.9 90 20 130/76 (94) 89 10/14/20 12:00 100 10/14/20 12:00 101 10/14/20 10:30 79 27 87 100 10/14/20 09:33 77 130/76 10/14/20 08:05 Bi-pap 10/14/20 08:00 77 10/14/20 08:00 100 10/14/20 08:00 97.9 90 20 130/76 (94) 89 10/14/20 06:40 94 26 88 100 10/14/20 06:40 88 Bi-Pap 100 10/14/20 04:00 98.0 84 22 133/66 (88) 88 10/14/20 04:00 83 10/14/20 03:57 100 10/14/20 00:50 107 29 88 100 10/14/20 00:00 99 10/14/20 00:00 Bi-pap 10/14/20 00:00 97.8 99 22 131/88 (102) 90 10/13/20 22:21 94 20 131/82 90 10/13/20 21:51 99 22 137/86 90 10/13/20 21:42 94 137/86 10/13/20 21:00 Bi-pap 10/13/20 20:00 104 10/13/20 20:00 97.4 105 20 131/82 (98) 90 10/13/20 19:00 102 22 89 100 10/13/20 19:00 89 Bi-Pap 100 10/13/20 17:46 98 20 130/86 86 10/13/20 17:16 111 19 139/89 90 10/13/20 16:00 98.5 99 19 139/89 (106) 90 10/13/20 16:00 111 10/13/20 14:48 101 23 85 100 Intake and Output 10/13/20 10/14/20 19:00 07:00 Intake Total 900 ml 500 ml Output Total 800 ml 650 ml Balance 100 ml -150 ml Intake Oral 900 ml 500 ml Output Urine Total 800 ml 650 ml # Voids 3 Objective deferred due to COVID no distress alert nonfocal Laboratory Tests 10/13/20 20:22: POC Whole Blood Glucose [Pending] 10/14/20 00:08: POC Whole Blood Glucose [Pending] 10/14/20 06:36: POC Whole Blood Glucose [Pending] 10/14/20 11:48: POC Whole Blood Glucose 238H Current Medications Medications (Trade) Dose Ordered Sig/Sera Route PRN Reason Start Time Stop Time Status Last Admin Dose Admin Acetaminophen (Tylenol) 650 mg Q4H PRN ORAL Mild Pain (Pain Scale 1-3) 09/18/20 23:45 10/18/20 23:44 10/14/20 00:19 Anastrozole (Arimidex) 1 mg DAILY ORAL 09/19/20 09:00 10/19/20 08:59 10/14/20 09:34 Ascorbic Acid (Vitamin C) 500 mg TWICE A DAY ORAL 09/30/20 20:00 10/30/20 19:59 10/14/20 09:32 Budesonide/ Formoterol Fumarate (Symbicort 160/ 4.5) 2 puff BIDRT INH 10/02/20 11:00 12/31/20 10:59 10/14/20 10:56 Cetylpyridinium Chloride (Cepacol) 1 lozg EVERY 2 HOURS PRN LAURA For Cough 09/25/20 18:15 12/24/20 18:14 09/28/20 21:19 Chlorhexidine Gluconate (Brandee-Hex 2%) 1 applic DAILY@1999 TOPIC 09/30/20 20:00 12/29/20 19:59 10/13/20 20:04 Clonidine HCl (Catapres Tab) 0.1 mg Q4H PRN ORAL SBP > 160 09/19/20 17:15 12/18/20 17:14 12/13/20 03:09 Cyclobenzaprine HCl (Flexeril) 10 mg TIDPRN PRN ORAL Muscle Spasm 10/11/20 00:00 10/18/20 00:00 Dextrose (Dextrose 50%) 25 ml Q30M PRN IV Hypoglycemia 10/02/20 22:00 12/31/20 21:59 Dextrose (Dextrose 50%) 50 ml Q30M PRN IV Hypoglycemia 10/02/20 22:00 12/31/20 21:59 Diltiazem HCl (Cardizem ER) 180 mg BID@0900,2100 ORAL 10/11/20 09:00 11/10/20 08:59 10/14/20 09:33 Docusate Sodium (Colace) 250 mg DAILY ORAL 10/03/20 15:15 11/02/20 15:14 10/14/20 09:33 Enoxaparin Sodium (Lovenox) 40 mg BID SUBQ 09/30/20 20:00 12/29/20 19:59 10/14/20 09:35 Fluticasone Propionate (Flonase) 1 spray QHS NASAL 09/18/20 21:00 10/18/20 20:59 10/13/20 21:00 Furosemide (Lasix) 40 mg DAILY IV 10/12/20 09:00 11/11/20 08:59 10/14/20 09:33 Guaifenesin (Mucinex ER) 600 mg TWICE A DAY ORAL 09/25/20 09:00 12/24/20 08:59 10/14/20 09:32 Guaifenesin/ Codeine Phosphate (Robitussin with codeine) 10 ml Q6H PRN ORAL For Cough 10/12/20 01:45 11/11/20 01:44 10/14/20 09:33 Hydroxyzine HCl (Atarax) 50 mg Q4H PRN ORAL Itching 09/19/20 06:15 10/19/20 06:14 10/12/20 04:48 Insulin Aspart (NovoLOG) BEFORE MEALS AND HS SUBQ 10/03/20 06:30 01/01/21 06:29 10/14/20 11:55 Insulin Detemir (Levemir) 15 units BEDTIME SUBQ 10/11/20 21:00 12/31/20 21:59 10/12/20 20:26 Insulin Detemir (Levemir) 18 units DAILY SUBQ 10/11/20 09:00 01/09/21 08:59 10/14/20 09:38 Lactobacillus Acidophilus (Culturelle) 1 tab TWICE A DAY ORAL 09/25/20 18:00 12/24/20 17:59 10/14/20 09:32 Levalbuterol HCl (Xopenex) 1.25 mg Q8H PRN HHN Shortness of Breath 10/12/20 08:45 10/17/20 08:44 Lorazepam (Ativan) 1 mg Q4H PRN ORAL For Anxiety 10/13/20 09:45 10/20/20 09:44 10/14/20 09:32 Magnesium Hydroxide (Mom) 30 ml DAILYPRN PRN ORAL Constipation 10/03/20 15:15 11/02/20 15:14 10/07/20 11:37 Methylprednisolone Sodium Succinate (Solu-MEDROL) 40 mg EVERY 8 HOURS IVP 10/12/20 09:00 01/10/21 08:59 10/14/20 06:31 Nystatin (Nystatin) 5 ml QID ORAL 10/11/20 09:00 10/18/20 08:59 10/14/20 09:31 Ondansetron HCl (Zofran) 4 mg Q6H PRN IVP Nausea & Vomiting 09/18/20 19:00 10/18/20 18:59 10/14/20 00:19 Pantoprazole (Protonix) 40 mg DAILY ORAL 09/19/20 09:00 10/19/20 08:59 10/14/20 09:32 Sertraline HCl (Zoloft) 100 mg DAILY ORAL 09/19/20 09:00 10/19/20 08:59 10/14/20 09:32 Vitamin B Complex (Vitamin B Complex) 1 tab DAILY ORAL 09/21/20 09:00 12/20/20 08:59 10/14/20 09:33 Vitamin D (Vitamin D) 1,000 unit DAILY ORAL 09/30/20 20:00 10/30/20 19:59 10/14/20 09:32 Zinc Sulfate (Zinc Sulfate) 220 mg DAILY ORAL 09/30/20 20:00 12/29/20 19:59 10/14/20 09:32 Assessment/Plan Assessment/Plan ASSESSMENT: Chronic respiratory failure COPD exacerbation and facial cellulitis. diabetes, hypertension, chronic hypoxemia chronic debility, pulmonary congestion, COVID+ PLAN: on solumedrol monitor imaging for change respiratory care as is home meds supportive care oxygen therapy and monitor prognosis guarded BIPAP continuous 100% at risk for intubation impression, plan, and exam edited and reviewed in detail care discussed with Froilan Clarke MD Oct 14, 2020 14:26
[2020-10-14 16:00] VITALS: BP 142/79
[2020-10-14 20:00] VITALS: BP 139/74
[2020-10-14] MEDS: Dyna-Hex 2% Top Sol 2oz TOPIC SCH (20:09)
[2020-10-14] MEDS: Flonase Nasal Inhaler 16gm NASAL SCH (20:09)
[2020-10-15] VITALS (15 sets, daily range): BP systolic 103–193; BP diastolic 41–81
[2020-10-15] MEDS: NovoLOG Insulin Flexpen SUBQ SCH ×3 (05:55→16:30)
[2020-10-15] MEDS: Solu-MEDROL 40mg Inj IVP SCH ×3 (05:55→22:03)
[2020-10-15 06:01] LABS: ALANINE AMINOTRANSFERASE 13 U/L (12-78); ALBUMIN/GLOBULIN RATIO 0.5 (1.0-2.7); ALKALINE PHOSPHATASE 121 U/L (46-116); ANION GAP 0 mmol/L (5-15); ASPARTATE AMINO TRANSFERASE 16 U/L (15-37); BILIRUBIN,TOTAL < 0.1 MG/DL (0.2-1.0); BLOOD UREA NITROGEN 30 mg/dL (7-18); CALCIUM 9.1 MG/DL (8.5-10.1); CARBON DIOXIDE 39 MMOL/L (21-32); CHLORIDE 99 MMOL/L (98-107); POTASSIUM 4.4 MMOL/L (3.5-5.1); SODIUM 138 MMOL/L (136-145)
[2020-10-15] MEDS: Levemir Flexpen SUBQ SCH ×2 (09:00→21:19)
[2020-10-15] MEDS: Docusate 250mg cap ORAL SCH (09:24)
[2020-10-15] MEDS: Lactobacillus-GG tablet ORAL SCH ×2 (09:24→18:00)
[2020-10-15] MEDS: Vitamin D 1000 units Tab ORAL SCH (09:24)
[2020-10-15] MEDS: Vitamin B Complex Tab ORAL SCH (09:25)
[2020-10-15] MEDS: guaiFENesin ER 600mg tab ORAL SCH ×2 (09:25→18:00)
[2020-10-15] MEDS: LORazepam 1mg tab ORAL PRN (09:25)
[2020-10-15] MEDS: Nystatin Susp 500,000 units/5ml ORAL SCH ×4 (09:25→22:01)
[2020-10-15] MEDS: Zinc Sulfate 220mg ORAL SCH (09:25)
[2020-10-15] MEDS: Anastrazole 1mg tab ORAL SCH (09:25)
[2020-10-15] MEDS: dilTIAZem HCl ER 180mg cap ORAL SCH ×2 (09:25→22:01)
[2020-10-15] MEDS: Ascorbic Acid 500mg tab ORAL SCH ×2 (09:25→18:00)
[2020-10-15] MEDS: Sertraline 100mg tab ORAL SCH (09:25)
[2020-10-15] MEDS: Enoxaparin 40mg Inj SUBQ SCH ×2 (09:27→18:00)
--- NOTE | 2020-10-15 09:27 | Pulmonology Progress Note ---
Subjective ROS Limited/Unobtainable: Yes Musculoskeletal: Denies: pain Allergies: Coded Allergies: AMOXICILLIN (Verified Allergy, Mild, RASH HIVES, 09/29/13) ERYTHROMYCIN BASE (Unverified Allergy, Unknown, 10/13/17) IODINE (Verified Allergy, Unknown, 09/29/13) PENICILLINS (Verified Allergy, Unknown, RASH HIVES, 09/29/13) All Systems: reviewed and negative except above Subjective patient does not want intubation- wants another day borderline oxygen saturation + COVID on diuretics on 100% on BIPAP awake Objective Last 24 Hour Vital Signs Date Time Temp Pulse Resp B/P (MAP) Pulse Ox O2 Delivery O2 Flow Rate FiO2 10/15/20 08:00 96.3 98 27 127/67 (87) 80 10/15/20 04:00 75 10/15/20 04:00 98.0 30 141/77 (98) 84 10/15/20 04:00 Bi-pap 10/15/20 04:00 100 10/15/20 01:24 99 21 81 100 10/15/20 00:00 98.0 84 24 137/81 (99) 92 10/15/20 00:00 Bi-pap 10/15/20 00:00 86 10/15/20 00:00 100 10/14/20 21:00 Bi-pap 10/14/20 20:09 100 142/79 10/14/20 20:00 100 10/14/20 20:00 98.1 86 27 139/74 (95) 89 10/14/20 20:00 94 10/14/20 19:12 85 Bi-Pap 100 10/14/20 19:11 100 30 79 100 10/14/20 16:00 100 10/14/20 16:00 94 10/14/20 16:00 98.2 86 22 142/79 (100) 88 10/14/20 14:40 100 30 84 100 10/14/20 12:00 97.9 90 20 130/76 (94) 89 10/14/20 12:00 100 10/14/20 12:00 101 10/14/20 10:30 79 27 87 100 10/14/20 09:33 77 130/76 Intake and Output 10/14/20 10/15/20 19:00 07:00 Intake Total 720 ml 600 ml Output Total 550 ml 500 ml Balance 170 ml 100 ml Intake Oral 720 ml 600 ml Output Urine Total 550 ml 500 ml Objective deferred due to COVID no distress alert nonfocal Laboratory Tests 10/14/20 11:48: POC Whole Blood Glucose 238H 10/14/20 14:55: Arterial Blood pH 7.403, Arterial Blood Partial Pressure CO2 61.4*H, Arterial Blood Partial Pressure O2 50.5L, Arterial Blood HCO3 37.4H, Arterial Blood Oxygen Saturation 84.4*L, Arterial Blood Base Excess 10.9*H, Rico Test Positive 10/14/20 16:14: POC Whole Blood Glucose [Pending] 10/14/20 20:20: POC Whole Blood Glucose [Pending] 10/15/20 04:00: Sodium Level 138, Potassium Level 4.4, Chloride Level 99, Carbon Dioxide Level 39H, Anion Gap 0L, Blood Urea Nitrogen 30H, Creatinine 1.0, Estimat Glomerular Filtration Rate > 60, Glucose Level 339H, Calcium Level 9.1, Total Bilirubin < 0.1L, Aspartate Amino Transf (AST/SGOT) 16, Alanine Aminotransferase (ALT/SGPT) 13, Alkaline Phosphatase 121H, Pro-B-Type Natriuretic Peptide 700H, Total Protein 6.0L, Albumin 2.0L, Globulin 4.0, Albumin/Globulin Ratio 0.5L 10/15/20 05:51: POC Whole Blood Glucose 275H Current Medications Medications (Trade) Dose Ordered Sig/Sera Route PRN Reason Start Time Stop Time Status Last Admin Dose Admin Acetaminophen (Tylenol) 650 mg Q4H PRN ORAL Mild Pain (Pain Scale 1-3) 09/18/20 23:45 10/18/20 23:44 10/14/20 16:09 Anastrozole (Arimidex) 1 mg DAILY ORAL 09/19/20 09:00 10/19/20 08:59 10/14/20 09:34 Ascorbic Acid (Vitamin C) 500 mg TWICE A DAY ORAL 09/30/20 20:00 10/30/20 19:59 10/14/20 18:00 Budesonide/ Formoterol Fumarate (Symbicort 160/ 4.5) 2 puff BIDRT INH 10/02/20 11:00 12/31/20 10:59 10/14/20 21:33 Cetylpyridinium Chloride (Cepacol) 1 lozg EVERY 2 HOURS PRN LAURA For Cough 09/25/20 18:15 12/24/20 18:14 09/28/20 21:19 Chlorhexidine Gluconate (Brandee-Hex 2%) 1 applic DAILY@2000 TOPIC 09/30/20 20:00 12/29/20 19:59 10/14/20 20:09 Clonidine HCl (Catapres Tab) 0.1 mg Q4H PRN ORAL SBP > 160 09/19/20 17:15 12/18/20 17:14 09/24/20 03:09 Cyclobenzaprine HCl (Flexeril) 10 mg TIDPRN PRN ORAL Muscle Spasm 10/11/20 00:00 10/18/20 00:00 Dextrose (Dextrose 50%) 25 ml Q30M PRN IV Hypoglycemia 10/02/20 22:00 12/31/20 21:59 Dextrose (Dextrose 50%) 50 ml Q30M PRN IV Hypoglycemia 10/02/20 22:00 12/31/20 21:59 Diltiazem HCl (Cardizem ER) 180 mg BID@0900,2100 ORAL 10/11/20 09:00 11/10/20 08:59 10/14/20 20:09 Docusate Sodium (Colace) 250 mg DAILY ORAL 10/03/20 15:15 11/02/20 15:14 10/14/20 09:33 Enoxaparin Sodium (Lovenox) 40 mg BID SUBQ 09/30/20 20:00 12/29/20 19:59 10/14/20 18:00 Fluticasone Propionate (Flonase) 1 spray QHS NASAL 09/18/20 21:00 10/18/20 20:59 10/14/20 20:09 Furosemide (Lasix) 40 mg DAILY IV 10/12/20 09:00 11/11/20 08:59 10/14/20 09:33 Guaifenesin (Mucinex ER) 600 mg TWICE A DAY ORAL 09/25/20 09:00 12/24/20 08:59 10/14/20 18:00 Guaifenesin/ Codeine Phosphate (Robitussin with codeine) 10 ml Q6H PRN ORAL For Cough 10/12/20 01:45 11/11/20 01:44 10/14/20 16:09 Hydroxyzine HCl (Atarax) 50 mg Q4H PRN ORAL Itching 09/19/20 06:15 10/19/20 06:14 10/12/20 04:48 Insulin Aspart (NovoLOG) BEFORE MEALS AND HS SUBQ 10/03/20 06:30 01/01/21 06:29 10/15/20 05:55 Insulin Detemir (Levemir) 15 units BEDTIME SUBQ 10/11/20 21:00 12/31/20 21:59 10/14/20 20:28 Insulin Detemir (Levemir) 18 units DAILY SUBQ 10/11/20 09:00 01/09/21 08:59 10/14/20 09:38 Lactobacillus Acidophilus (Culturelle) 1 tab TWICE A DAY ORAL 09/25/20 18:00 12/24/20 17:59 10/14/20 18:00 Levalbuterol HCl (Xopenex) 1.25 mg Q8H PRN HHN Shortness of Breath 10/12/20 08:45 10/17/20 08:44 Lorazepam (Ativan) 1 mg Q4H PRN ORAL For Anxiety 10/13/20 09:45 10/20/20 09:44 10/14/20 16:09 Magnesium Hydroxide (Mom) 30 ml DAILYPRN PRN ORAL Constipation 10/03/20 15:15 11/02/20 15:14 10/07/20 11:37 Methylprednisolone Sodium Succinate (Solu-MEDROL) 40 mg EVERY 8 HOURS IVP 10/12/20 09:00 01/10/21 08:59 10/15/20 05:55 Nystatin (Nystatin) 5 ml QID ORAL 10/11/20 09:00 10/18/20 08:59 10/14/20 20:09 Ondansetron HCl (Zofran) 4 mg Q6H PRN IVP Nausea & Vomiting 09/18/20 19:00 10/18/20 18:59 10/14/20 16:09 Pantoprazole (Protonix) 40 mg DAILY ORAL 09/19/20 09:00 10/19/20 08:59 10/14/20 09:32 Sertraline HCl (Zoloft) 100 mg DAILY ORAL 09/19/20 09:00 10/19/20 08:59 10/14/20 09:32 Vitamin B Complex (Vitamin B Complex) 1 tab DAILY ORAL 09/21/20 09:00 12/20/20 08:59 10/14/20 09:33 Vitamin D (Vitamin D) 1,000 unit DAILY ORAL 09/30/20 20:00 10/30/20 19:59 10/14/20 09:32 Zinc Sulfate (Zinc Sulfate) 220 mg DAILY ORAL 09/30/20 20:00 12/29/20 19:59 10/14/20 09:32 Assessment/Plan Assessment/Plan ASSESSMENT: Chronic respiratory failure COPD exacerbation and facial cellulitis. diabetes, hypertension, chronic hypoxemia chronic debility, pulmonary congestion, COVID+ PLAN: refuses intubation on solumedrol monitor imaging for change respiratory care as is home meds supportive care oxygen therapy and monitor prognosis guarded BIPAP continuous 100% needs intubation; but refuses and wants to wait to am; concern of hypoxemia and cardiac derangement impression, plan, and exam edited and reviewed in detail care discussed with Froilan Clarke MD Oct 15, 2020 09:27
--- NOTE | 2020-10-15 10:34 | General Progress Note ---
Subjective Allergies: Coded Allergies: AMOXICILLIN (Verified Allergy, Mild, RASH HIVES, 09/29/13) ERYTHROMYCIN BASE (Unverified Allergy, Unknown, 10/13/17) IODINE (Verified Allergy, Unknown, 09/29/13) PENICILLINS (Verified Allergy, Unknown, RASH HIVES, 09/29/13) Subjective no overnight events. remains stable on bipap. O2 sats low 90s to mid 80s. intermittent anxiety. pulm noted. pt refusing intubation Objective Last 24 Hour Vital Signs Date Time Temp Pulse Resp B/P (MAP) Pulse Ox O2 Delivery O2 Flow Rate FiO2 10/15/20 09:55 100 25 115/63 85 10/15/20 09:25 98 27 127/67 80 10/15/20 09:25 98 127/67 10/15/20 08:00 96.3 98 27 127/67 (87) 80 10/15/20 04:00 75 10/15/20 04:00 98.0 30 141/77 (98) 84 10/15/20 04:00 Bi-pap 10/15/20 04:00 100 10/15/20 01:24 99 21 81 100 10/15/20 00:00 98.0 84 24 137/81 (99) 92 10/15/20 00:00 Bi-pap 10/15/20 00:00 86 10/15/20 00:00 100 10/14/20 21:00 Bi-pap 10/14/20 20:09 100 142/79 10/14/20 20:00 100 10/14/20 20:00 98.1 86 27 139/74 (95) 89 10/14/20 20:00 94 10/14/20 19:12 85 Bi-Pap 100 10/14/20 19:11 100 30 79 100 10/14/20 16:00 100 10/14/20 16:00 94 10/14/20 16:00 98.2 86 22 142/79 (100) 88 10/14/20 14:40 100 30 84 100 10/14/20 12:00 97.9 90 20 130/76 (94) 89 10/14/20 12:00 100 10/14/20 12:00 101 Intake and Output 10/14/20 10/15/20 19:00 07:00 Intake Total 720 ml 600 ml Output Total 550 ml 500 ml Balance 170 ml 100 ml Intake Oral 720 ml 600 ml Output Urine Total 550 ml 500 ml Laboratory Tests 10/14/20 11:48: POC Whole Blood Glucose 238H 10/14/20 14:55: Arterial Blood pH 7.403, Arterial Blood Partial Pressure CO2 61.4*H, Arterial Blood Partial Pressure O2 50.5L, Arterial Blood HCO3 37.4H, Arterial Blood Oxygen Saturation 84.4*L, Arterial Blood Base Excess 10.9*H, Rico Test Positive 10/14/20 16:14: POC Whole Blood Glucose [Pending] 10/14/20 20:20: POC Whole Blood Glucose [Pending] 10/15/20 04:00: Sodium Level 138, Potassium Level 4.4, Chloride Level 99, Carbon Dioxide Level 39H, Anion Gap 0L, Blood Urea Nitrogen 30H, Creatinine 1.0, Estimat Glomerular Filtration Rate > 60, Glucose Level 339H, Calcium Level 9.1, Total Bilirubin < 0.1L, Aspartate Amino Transf (AST/SGOT) 16, Alanine Aminotransferase (ALT/SGPT) 13, Alkaline Phosphatase 121H, Pro-B-Type Natriuretic Peptide 700H, Total Protein 6.0L, Albumin 2.0L, Globulin 4.0, Albumin/Globulin Ratio 0.5L 10/15/20 05:51: POC Whole Blood Glucose 275H Height (Feet): 5 Height (Inches): 1.00 Weight (Pounds): 210 Objective General Appearance: WD/WN, alert, nad. on bipap EENT: PERRL/EOMI, normal ENT inspection Neck: non-tender, normal alignment Cardiovascular: normal peripheral pulses, normal rate, regular rhythm Respiratory/Chest: chest wall non-tender, lungs clear, no respiratory distress, no accessory muscle use. no wheezing. 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, no motor/sensory deficits, alert, oriented x 3, responsive, normal mood/affect Assessment/Plan Problem List: (1) Facial cellulitis ICD Codes: L03.211 - Cellulitis of face SNOMED: 592561261 (2) COPD exacerbation ICD Codes: J44.1 - COPD exacerbation SNOMED: 965979441 (3) Toxic metabolic encephalopathy ICD Codes: G92 - Toxic encephalopathy SNOMED: 758761137 (4) Hypertension, malignant ICD Codes: I10 - Hypertension, malignant SNOMED: 82226926 (5) Diabetes mellitus ICD Codes: E11.9 - Diabetes mellitus SNOMED: 65101291 Status: stable, progressing Assessment/Plan: cont o2 bipap monitor abg monitor cxr cough rx cont inhalers resp rx steroids dvt/stress ulcer prophylaxis refusing intubation. states she will consider later in the day or tomorrow D/w dtr- pt refusing. she will try to talk to pt. Floyd Downey MD Oct 15, 2020 10:34
--- NOTE | 2020-10-15 13:26 | Diagnostic Imaging Report ---
EXAM: XR Chest, 1 View CLINICAL HISTORY: INFECT TECHNIQUE: Frontal view of the chest. COMPARISON: Chest radiograph on 10/12/2020 FINDINGS: Hardware: None. Lungs/pleura: Increased opacities in right greater than left lungs. Heart/mediastinum: Stable mild enlargement of the cardiac silhouette. Soft tissues: Unremarkable. Bones: No acute fracture. Upper abdomen: Normal. IMPRESSION: Opacities in right greater than left lung, concerning for an infectious/inflammatory process.
--- NOTE | 2020-10-15 15:08 | Emergency Room Report ---
Physical Exam Vital Signs Date Time Temp Pulse Resp B/P (MAP) Pulse Ox O2 Delivery O2 Flow Rate FiO2 10/11/20 07:46 93 Non-Rebreather 15.0 100 10/11/20 08:00 97.1 110 21 140/93 (109) Medical Decision Making Diagnostic Impression: Primary Impression: Erysipelas Additional Impression: COPD exacerbation ER Course Called for emergency intubation for desaturation. Admitted for COVID-19 pneumonia and COPD. I spent approximately 20 to 25 minutes discussing new POLST form and intubation procedure with patient. She had previously refused intubation but is now consented. New POLST form was filled out and patient is full code. . Patient saturations were mid 60s on nonrebreather. BiPAP unavailable. High flow when available. Patient was intubated by direct visualization with 7.5 ET tube secured at 24 cm at the lip. Post intubation x- ray obtained shows endotracheal tube tip above the parul. Right-sided opacities noted. Patient required additional sedation with rocuronium following intubation as she had increased rigidity and was biting at the tube. Instructed ICU team to start propofol for sedation. Remainder of care per ICU. Recall as needed. Chest X-Ray Diagnostic Results Chest X-Ray Diagnostic Results : Chest X-Ray Ordered: Yes # of Views/Limited/Complete: 1 View Indication: Other - Intubation EP Interpretation: Yes Interpretation: other - ET tube above the parul. Bilateral consolidations. No pneumothorax Impression: Other - ET tube appropriate position Electronically Signed by: Electronically signed by Dr. Herbert Lim MD Last Vital Signs Date Time Temp Pulse Resp B/P (MAP) Pulse Ox O2 Delivery O2 Flow Rate FiO2 10/15/20 12:10 97.2 106 25 103/67 (79) 82 10/15/20 12:00 100 10/15/20 04:00 Bi-pap 10/11/20 07:46 15.0 Disposition: ADMITTED INPATIENT Condition: Serious Referrals: Floyd Downey MD (PCP) Procedures Critical Care Time Critical Care Time Total critical care time: Approximately 31 minutes Due to a high probability of clinically significant, life threatening deterioration, the patient required the highest level of preparedness to intervene emergently and I personally spent this critical care time directly and personally managing the patient. This critical care time included obtaining a history, examining the patient, pulse oximetry, ordering and reviewing studies, ordering treatments, evaluating response to treatment and updating management plan as needed, frequent reassessment and discussion with other providers as well as arranging for ultimate disposition. This critical to care time was performed to assess and manage the high probability of life-threatening deterioration that could result in multiorgan failure. This critical care time is separate from the separately billable procedures and treating other patients. Intubation Intubation : Consent: Verbal Intubation Method: orotracheal Tube Size (cm): 7.5 Medications: Etomidate, Ketamine Breath Sounds after Intubation: equal Intubation Complications: no complications Post Intubation Xray: Yes Progress/Xray Impression: ET tube in place above the parul Attempts: One Patient Tolerated: Well Complications: None Herbert Lim MD Oct 15, 2020 15:08
[2020-10-15] MEDS ORDERED: LORazepam Inj 2mg/ml 1ml IV PRN (15:15)
[2020-10-15] MEDS: propofoL 1,000mg/100ml 100 ML IV SCH ×2 (15:27→21:18)
--- NOTE | 2020-10-15 16:15 | Diagnostic Imaging Report ---
EXAM: XR Chest, 1 View CLINICAL HISTORY: TUBE PLCMT TECHNIQUE: Frontal view of the chest. COMPARISON: Chest radiograph on 10/15/2020 1253 hrs. FINDINGS: Hardware: Interval placement of an endotracheal tube which terminates in the region of the mid thoracic trachea, approximately 3.3 cm above the parul. Left-sided PICC line terminates in the region of the SVC. Lungs/pleura: Interstitial opacities and right greater than left lungs, similar compared to prior exam. Heart/mediastinum: Similar mild enlargement of the cardiac silhouette. Soft tissues: Unremarkable. Bones: No acute fracture. Upper abdomen: Normal. IMPRESSION: 1. Interval placement of an endotracheal tube which terminates in the region of the mid thoracic trachea, approximately 3.3 cm above the parul. Left-sided PICC line terminates in the region of the SVC. 2. Interstitial opacities and right greater than left lungs, similar compared to prior exam.
[2020-10-15] MEDS: fentaNYL 2500mcg/NS 250ml 250 ML IV SCH (16:53)
[2020-10-15] MEDS: Dyna-Hex 2% Top Sol 2oz TOPIC SCH (20:17)
[2020-10-15] MEDS: Flonase Nasal Inhaler 16gm NASAL SCH (21:00)
--- NOTE | 2020-10-15 21:42 | Diagnostic Imaging Report ---
EXAM: XR Chest, 1 View CLINICAL HISTORY: NGT TECHNIQUE: Frontal view of the chest. COMPARISON: 10/15/2020, earlier study. FINDINGS: Lungs: Diffuse patchy airspace disease is again noted, most notably at the lower lung zones, worrisome for atypical pneumonia such as Covid-19 pneumonia. Pleural space: Small to moderate left pleural effusion. No pneumothorax. Heart: Cardiomegaly per Mediastinum: Unremarkable. Bones/joints: Osteopenia. Vasculature: Atherosclerotic disease. Tubes, lines and devices: Endotracheal tube is noted in place with its tip approximately 2.5 cm above the parul. NG tube is noted in place with its tip and side-port below the diaphragm. As a precautionary measure, it is advised that the NG tube be advanced proximally 2-3 cm Left subclavian catheter is noted in place with its tip at the level of the proximal superior vena cava. IMPRESSION: 1. Findings suggestive of Covid-19 pneumonia. 2. NG tube is noted in place with its tip below the diaphragm. As a precautionary measure, it is advised that the NG tube be advanced approximately 2-3 cm farther down. 3. Endotracheal tube in good position. 4. Cardiomegaly per 5. Left pleural effusion, unchanged.
[2020-10-16] VITALS (35 sets, daily range): BP systolic 95–161; BP diastolic 51–76
[2020-10-16] MEDS ORDERED: NovoLOG Insulin Flexpen SUBQ SCH
[2020-10-16] MEDS: propofoL 1,000mg/100ml 100 ML IV SCH ×5 (02:31→23:30)
[2020-10-16] MEDS: Solu-MEDROL 40mg Inj IVP SCH ×3 (05:36→21:34)
[2020-10-16] MEDS: NovoLOG Insulin Flexpen SUBQ SCH ×4 (05:37→23:31)
[2020-10-16 07:57] LABS: ALANINE AMINOTRANSFERASE 13 U/L (12-78); ALBUMIN 2.4 G/DL (3.4-5.0); ALBUMIN/GLOBULIN RATIO 0.7 (1.0-2.7); ALKALINE PHOSPHATASE 129 U/L (46-116); ANION GAP 1 mmol/L (5-15); ASPARTATE AMINO TRANSFERASE 13 U/L (15-37); BILIRUBIN,TOTAL 0.2 MG/DL (0.2-1.0); BLOOD UREA NITROGEN 34 mg/dL (7-18); CALCIUM 9.2 MG/DL (8.5-10.1); CARBON DIOXIDE 39 MMOL/L (21-32); CHLORIDE 100 MMOL/L (98-107); CREATININE 0.9 MG/DL (0.55-1.30); POTASSIUM 4.5 MMOL/L (3.5-5.1); SODIUM 142 MMOL/L (136-145)
[2020-10-16] MEDS: Docusate 100mg/10ml Liq NG SCH ×2 (08:26→18:02)
[2020-10-16] MEDS: Anastrazole 1mg tab ORAL SCH (08:26)
[2020-10-16] MEDS: Pantoprazole Inj IVP SCH ×2 (08:26→20:54)
[2020-10-16] MEDS: Lactobacillus-GG tablet ORAL SCH ×2 (08:26→18:02)
[2020-10-16] MEDS: Ascorbic Acid 500mg tab ORAL SCH ×2 (08:27→18:02)
[2020-10-16] MEDS: Sertraline 100mg tab ORAL SCH (08:27)
[2020-10-16] MEDS: Vitamin D 1000 units Tab ORAL SCH (08:27)
[2020-10-16] MEDS: Zinc Sulfate 220mg ORAL SCH (08:27)
[2020-10-16] MEDS: dilTIAZem HCl ER 180mg cap ORAL SCH ×2 (08:28→20:54)
[2020-10-16] MEDS: Enoxaparin 80mg Inj SUBQ SCH ×2 (08:29→20:56)
[2020-10-16] MEDS: Levemir Flexpen SUBQ SCH ×2 (09:29→21:17)
--- NOTE | 2020-10-16 11:25 | Diagnostic Imaging Report ---
Indication: Shortness of breath Technique: One view of the chest Comparison: 10/15/2020 Findings: Stable satisfactory line and tube positions. Bilateral infiltrates are unchanged. Likely left pleural effusion is unchanged.. Impression: Unchanged, over one day, findings as above.
[2020-10-16] MEDS: fentaNYL 2500mcg/NS 250ml 250 ML IV SCH (15:41)
--- NOTE | 2020-10-16 16:49 | Infectious Diseases Prog Note ---
Assessment/Plan Assessment/Plan antibiotics : none A 1. Klebsiella urinary tract infection s/p rx 2. Facial cellulitis improving 3. COPD exacerbation. 4. diabetes mellitus 5. hypertension 6. CHF 7. breast cancer 8. COVID 19 pneumonia on 100 % Fi O2, saturation 88 % s/p remdesivir, dexamethasone P 1. continue solumedrol 2. start cefepime 3. will follow up cultures Subjective ROS Limited/Unobtainable: Yes Allergies: Coded Allergies: AMOXICILLIN (Verified Allergy, Mild, RASH HIVES, 09/29/13) ERYTHROMYCIN BASE (Unverified Allergy, Unknown, 10/13/17) IODINE (Verified Allergy, Unknown, 09/29/13) PENICILLINS (Verified Allergy, Unknown, RASH HIVES, 09/29/13) Objective Last 24 Hour Vital Signs Date Time Temp Pulse Resp B/P (MAP) Pulse Ox O2 Delivery O2 Flow Rate FiO2 10/16/20 16:00 100 10/16/20 16:00 22 101/56 Mechanical Ventilator 100 10/16/20 16:00 22 101/56 Mechanical Ventilator 100 10/16/20 16:00 Mechanical Ventilator 10/16/20 15:00 78 22 98/55 (69) 88 10/16/20 15:00 22 98/55 Mechanical Ventilator 100 10/16/20 15:00 22 98/55 Mechanical Ventilator 100 10/16/20 14:30 81 22 117/60 (79) 89 10/16/20 14:00 82 22 111/56 (74) 90 10/16/20 14:00 22 111/56 Mechanical Ventilator 100 10/16/20 14:00 22 111/56 Mechanical Ventilator 100 10/16/20 13:45 22 111/61 Mechanical Ventilator 100 10/16/20 13:30 81 22 111/61 (78) 93 10/16/20 13:00 81 22 107/59 (75) 92 10/16/20 13:00 22 107/59 Mechanical Ventilator 100 10/16/20 13:00 22 107/59 Mechanical Ventilator 100 10/16/20 12:30 83 22 109/62 (78) 91 10/16/20 12:00 100 10/16/20 12:00 98.6 83 22 106/63 (77) 90 10/16/20 12:00 Mechanical Ventilator 10/16/20 12:00 22 106/63 Mechanical Ventilator 100 10/16/20 12:00 22 106/63 Mechanical Ventilator 100 10/16/20 12:00 82 10/16/20 11:30 84 22 109/64 (79) 89 10/16/20 11:00 22 116/66 Mechanical Ventilator 100 10/16/20 11:00 22 116/66 Mechanical Ventilator 100 10/16/20 11:00 87 22 116/66 (83) 87 10/16/20 10:30 88 22 118/65 (82) 85 10/16/20 10:00 22 132/64 Mechanical Ventilator 100 10/16/20 10:00 22 132/64 Mechanical Ventilator 100 10/16/20 10:00 88 22 135/66 (89) 86 10/16/20 09:30 96 23 155/70 (98) 84 10/16/20 09:00 79 22 131/72 (91) 91 10/16/20 09:00 22 139/82 Mechanical Ventilator 100 10/16/20 09:00 22 139/82 Mechanical Ventilator 100 10/16/20 08:30 78 22 117/64 (81) 91 10/16/20 08:28 76 121/67 10/16/20 08:00 78 10/16/20 08:00 100 10/16/20 08:00 22 123/70 Mechanical Ventilator 100 10/16/20 08:00 22 123/70 Mechanical Ventilator 100 10/16/20 08:00 99.2 79 22 123/70 (87) 92 10/16/20 08:00 Mechanical Ventilator 10/16/20 07:30 78 22 108/61 (77) 92 10/16/20 07:00 22 111/60 Mechanical Ventilator 100 10/16/20 07:00 22 111/60 Mechanical Ventilator 100 10/16/20 07:00 79 22 111/60 (77) 92 10/16/20 06:00 77 22 103/57 (72) 91 10/16/20 06:00 22 103/57 Mechanical Ventilator 100 10/16/20 06:00 22 103/57 Mechanical Ventilator 100 10/16/20 05:00 22 107/56 Mechanical Ventilator 100 10/16/20 05:00 22 107/56 Mechanical Ventilator 100 10/16/20 05:00 79 22 107/56 (73) 91 10/16/20 04:00 98.8 82 22 109/59 (76) 90 10/16/20 04:00 100 10/16/20 04:00 82 10/16/20 04:00 22 109/59 Mechanical Ventilator 100 10/16/20 04:00 22 109/59 Mechanical Ventilator 100 10/16/20 04:00 Mechanical Ventilator 10/16/20 03:00 22 161/67 Mechanical Ventilator 100 10/16/20 03:00 22 161/67 Mechanical Ventilator 100 10/16/20 03:00 97 22 161/67 (98) 10/16/20 02:31 22 161/72 Mechanical Ventilator 100 10/16/20 02:00 85 22 153/73 (99) 90 10/16/20 02:00 22 153/73 Mechanical Ventilator 100 10/16/20 02:00 22 153/73 Mechanical Ventilator 100 10/16/20 01:00 23 139/76 Mechanical Ventilator 100 10/16/20 01:00 23 139/76 Mechanical Ventilator 100 10/16/20 01:00 88 23 139/76 (97) 87 10/16/20 00:41 93 25 100 10/16/20 00:00 Mechanical Ventilator 10/16/20 00:00 98.8 96 26 146/63 (90) 87 10/16/20 00:00 26 146/63 Mechanical Ventilator 100 10/16/20 00:00 26 146/63 Mechanical Ventilator 100 10/16/20 00:00 124 10/15/20 23:00 94 24 153/64 (93) 90 10/15/20 23:00 24 153/64 Mechanical Ventilator 100 10/15/20 23:00 24 153/64 Mechanical Ventilator 100 10/15/20 22:01 93 154/62 10/15/20 22:00 23 154/62 Mechanical Ventilator 100 10/15/20 22:00 23 154/62 Mechanical Ventilator 100 10/15/20 22:00 92 23 154/62 (92) 88 10/15/20 21:18 23 161/60 86 10/15/20 21:00 95 24 166/60 (95) 85 10/15/20 21:00 24 166/60 Mechanical Ventilator 100 10/15/20 21:00 24 166/60 Mechanical Ventilator 100 10/15/20 20:00 93 10/15/20 20:00 100 10/15/20 20:00 23 147/58 Mechanical Ventilator 100 1/3/21 20:00 23 147/58 Mechanical Ventilator 100 10/15/20 20:00 99.3 92 23 147/58 (87) 86 10/15/20 20:00 Mechanical Ventilator 10/15/20 19:00 22 150/66 Endotracheal Tube 100 10/15/20 19:00 22 150/66 Endotracheal Tube 100 10/15/20 19:00 95 24 149/62 (91) 86 10/15/20 18:49 95 22 100 10/15/20 18:10 96 23 100 10/15/20 18:00 96 25 158/65 (96) 84 10/15/20 18:00 25 158/65 Endotracheal Tube 100 10/15/20 18:00 25 158/65 Endotracheal Tube 100 10/15/20 17:45 26 144/58 Endotracheal Tube 100 10/15/20 17:45 26 144/58 Endotracheal Tube 100 10/15/20 17:30 97 26 144/58 (86) 84 10/15/20 17:30 26 140/62 Endotracheal Tube 100 10/15/20 17:30 26 140/62 Endotracheal Tube 100 10/15/20 17:15 27 137/69 Endotracheal Tube 100 10/15/20 17:15 27 137/69 Endotracheal Tube 100 10/15/20 17:00 105 28 132/58 (82) 79 10/15/20 17:00 30 117/70 Endotracheal Tube 100 10/15/20 17:00 30 117/70 Endotracheal Tube 100 10/15/20 16:53 30 117/70 Endotracheal Tube 100 Height (Feet): 5 Height (Inches): 1.00 Weight (Pounds): 210 Laboratory Tests Test 10/16/20 05:35 10/16/20 05:59 10/16/20 15:35 POC Whole Blood Glucose Pending D-Dimer 10.41 mg/L FEU (0.00-0.49) H Sodium Level 142 MMOL/L (136-145) Potassium Level 4.5 MMOL/L (3.5-5.1) Chloride Level 100 MMOL/L (98-107) Carbon Dioxide Level 39 MMOL/L (21-32) H Anion Gap 1 mmol/L (5-15) L Blood Urea Nitrogen 34 mg/dL (7-18) H Creatinine 0.9 MG/DL (0.55-1.30) Estimat Glomerular Filtration Rate > 60 mL/min (>60) Glucose Level 173 MG/DL (74-106) #H Calcium Level 9.2 MG/DL (8.5-10.1) Total Bilirubin 0.2 MG/DL (0.2-1.0) Aspartate Amino Transf (AST/SGOT) 13 U/L (15-37) L Alanine Aminotransferase (ALT/SGPT) 13 U/L (12-78) Alkaline Phosphatase 129 U/L (46-116) H C-Reactive Protein, Quantitative Pending Total Protein 6.0 G/DL (6.4-8.2) L Albumin 2.4 G/DL (3.4-5.0) L Globulin 3.6 g/dL Albumin/Globulin Ratio 0.7 (1.0-2.7) L Triglycerides Level 295 MG/DL (30-150) H Arterial Blood pH 7.422 (7.350-7.450) Arterial Blood Partial Pressure CO2 66.9 mmHg (35.0-45.0) *H Arterial Blood Partial Pressure O2 mmHg (75.0-100.0) Arterial Blood HCO3 42.6 mmol/L (22.0-26.0) *H Arterial Blood Oxygen Saturation 87.3 % (95-100) *L Arterial Blood Base Excess 15.7 (-2-2) *H Rico Test Positive Current Medications Medications (Trade) Dose Ordered Sig/Sera Route PRN Reason Start Time Stop Time Status Last Admin Dose Admin Acetaminophen (Tylenol) 650 mg Q4H PRN ORAL Mild Pain (Pain Scale 1-3) 09/18/20 23:45 10/18/20 23:44 10/15/20 09:25 Anastrozole (Arimidex) 1 mg DAILY ORAL 09/19/20 09:00 10/19/20 08:59 10/16/20 08:26 Ascorbic Acid (Vitamin C) 500 mg TWICE A DAY ORAL 09/30/20 20:00 10/30/20 19:59 10/16/20 08:27 Budesonide/ Formoterol Fumarate (Symbicort 160/ 4.5) 2 puff BIDRT INH 10/02/20 11:00 12/31/20 10:59 10/15/20 10:30 Cetylpyridinium Chloride (Cepacol) 1 lozg EVERY 2 HOURS PRN LAURA For Cough 09/25/20 18:15 12/24/20 18:14 09/28/20 21:19 Chlorhexidine Gluconate (Brandee-Hex 2%) 1 applic DAILY@2000 TOPIC 09/30/20 20:00 12/29/20 19:59 10/15/20 20:17 Clonidine HCl (Catapres Tab) 0.1 mg Q4H PRN ORAL SBP > 160 09/19/20 17:15 12/18/20 17:14 09/24/20 03:09 Cyclobenzaprine HCl (Flexeril) 10 mg TIDPRN PRN ORAL Muscle Spasm 10/11/20 00:00 10/18/20 00:00 Dextrose (Dextrose 50%) 25 ml Q30M PRN IV Hypoglycemia 10/02/20 22:00 12/31/20 21:59 Dextrose (Dextrose 50%) 50 ml Q30M PRN IV Hypoglycemia 10/02/20 22:00 12/31/20 21:59 Diltiazem HCl (Cardizem ER) 180 mg BID@0900,2100 ORAL 10/11/20 09:00 11/10/20 08:59 10/16/20 08:28 Docusate Sodium (Colace) 100 mg TWICE A DAY NG 10/16/20 09:00 11/15/20 08:59 10/16/20 08:26 Enoxaparin Sodium (Lovenox) 40 mg Q12HR SUBQ 10/16/20 09:00 01/14/21 08:59 10/16/20 08:29 Fentanyl Citrate 250 ml @ 1 mls/hr Q24H IV 10/15/20 16:30 10/17/20 16:29 10/15/20 16:53 Fluticasone Propionate (Flonase) 1 spray QHS NASAL 09/18/20 21:00 10/18/20 20:59 10/14/20 20:09 Furosemide (Lasix) 40 mg DAILY IV 10/12/20 09:00 11/11/20 08:59 10/16/20 08:26 Guaifenesin/ Codeine Phosphate (Robitussin with codeine) 10 ml Q6H PRN ORAL For Cough 10/12/20 01:45 11/11/20 01:44 10/14/20 16:09 Hydroxyzine HCl (Atarax) 50 mg Q4H PRN ORAL Itching 09/19/20 06:15 10/19/20 06:14 10/12/20 04:48 Insulin Aspart (NovoLOG) EVERY 6 HOURS SUBQ 10/16/20 06:00 01/01/21 06:29 10/16/20 11:46 Insulin Detemir (Levemir) 15 units BEDTIME SUBQ 10/11/20 21:00 12/31/20 21:59 10/15/20 21:19 Insulin Detemir (Levemir) 18 units DAILY SUBQ 10/11/20 09:00 01/09/21 08:59 10/16/20 09:29 Lactobacillus Acidophilus (Culturelle) 1 tab TWICE A DAY ORAL 09/25/20 18:00 12/24/20 17:59 10/16/20 08:26 Levalbuterol HCl (Xopenex) 1.25 mg Q8H PRN HHN Shortness of Breath 10/12/20 08:45 10/17/20 08:44 Lorazepam (Ativan 2mg/ml 1ml) 2 mg Q4H PRN IV For Anxiety 10/15/20 15:15 10/22/20 15:14 10/15/20 15:26 Lorazepam (Ativan) 1 mg Q4H PRN ORAL For Anxiety 10/13/20 09:45 10/20/20 09:44 10/15/20 09:25 Magnesium Hydroxide (Mom) 30 ml DAILYPRN PRN ORAL Constipation 10/03/20 15:15 11/02/20 15:14 10/07/20 11:37 Methylprednisolone Sodium Succinate (Solu-MEDROL) 40 mg EVERY 8 HOURS IVP 10/12/20 09:00 01/10/21 08:59 10/16/20 13:13 Ondansetron HCl (Zofran) 4 mg Q6H PRN IVP Nausea & Vomiting 09/18/20 19:00 10/18/20 18:59 10/15/20 09:25 Pantoprazole (Protonix) 40 mg EVERY 12 HOURS IVP 10/16/20 09:00 11/15/20 08:59 10/16/20 08:26 Propofol 100 ml @ 2.858 mls/ hr Q12H IV 10/15/20 15:30 10/17/20 15:29 10/16/20 13:45 Sertraline HCl (Zoloft) 100 mg DAILY ORAL 09/19/20 09:00 10/19/20 08:59 10/16/20 08:27 Vitamin D (Vitamin D) 1,000 unit DAILY ORAL 09/30/20 20:00 10/30/20 19:59 10/16/20 08:27 Zinc Sulfate (Zinc Sulfate) 220 mg DAILY ORAL 09/30/20 20:00 12/29/20 19:59 10/16/20 08:27 Lo Delcid MD Oct 16, 2020 16:49
--- NOTE | 2020-10-16 16:58 | Pulmonology Progress Note ---
Subjective ROS Limited/Unobtainable: Yes Musculoskeletal: Denies: pain Allergies: Coded Allergies: AMOXICILLIN (Verified Allergy, Mild, RASH HIVES, 09/29/13) ERYTHROMYCIN BASE (Unverified Allergy, Unknown, 10/13/17) IODINE (Verified Allergy, Unknown, 09/29/13) PENICILLINS (Verified Allergy, Unknown, RASH HIVES, 09/29/13) All Systems: reviewed and negative except above Subjective now intubated on vent and poor oxygen saturation + COVID sedated Objective Last 24 Hour Vital Signs Date Time Temp Pulse Resp B/P (MAP) Pulse Ox O2 Delivery O2 Flow Rate FiO2 10/16/20 16:30 81 22 109/56 (73) 92 10/16/20 16:00 98.6 80 22 98/59 (72) 91 10/16/20 16:00 100 10/16/20 16:00 22 101/56 Mechanical Ventilator 100 10/16/20 16:00 22 101/56 Mechanical Ventilator 100 10/16/20 16:00 Mechanical Ventilator 10/16/20 15:30 79 22 95/51 (66) 89 10/16/20 15:00 78 22 98/55 (69) 88 10/16/20 15:00 22 98/55 Mechanical Ventilator 100 10/16/20 15:00 22 98/55 Mechanical Ventilator 100 10/16/20 14:30 81 22 117/60 (79) 89 10/16/20 14:00 82 22 111/56 (74) 90 10/16/20 14:00 22 111/56 Mechanical Ventilator 100 10/16/20 14:00 22 111/56 Mechanical Ventilator 100 10/16/20 13:45 22 111/61 Mechanical Ventilator 100 10/16/20 13:30 81 22 111/61 (78) 93 10/16/20 13:00 81 22 107/59 (75) 92 10/16/20 13:00 22 107/59 Mechanical Ventilator 100 10/16/20 13:00 22 107/59 Mechanical Ventilator 100 10/16/20 12:30 83 22 109/62 (78) 91 10/16/20 12:00 100 10/16/20 12:00 98.6 83 22 106/63 (77) 90 10/16/20 12:00 Mechanical Ventilator 10/16/20 12:00 22 106/63 Mechanical Ventilator 100 10/16/20 12:00 22 106/63 Mechanical Ventilator 100 10/16/20 12:00 82 10/16/20 11:30 84 22 109/64 (79) 89 10/16/20 11:00 22 116/66 Mechanical Ventilator 100 10/16/20 11:00 22 116/66 Mechanical Ventilator 100 10/16/20 11:00 87 22 116/66 (83) 87 10/16/20 10:30 88 22 118/65 (82) 85 10/16/20 10:00 22 132/64 Mechanical Ventilator 100 10/16/20 10:00 22 132/64 Mechanical Ventilator 100 10/16/20 10:00 88 22 135/66 (89) 86 10/16/20 09:30 96 23 155/70 (98) 84 10/16/20 09:00 79 22 131/72 (91) 91 10/16/20 09:00 22 139/82 Mechanical Ventilator 100 10/16/20 09:00 22 139/82 Mechanical Ventilator 100 10/16/20 08:30 78 22 117/64 (81) 91 10/16/20 08:28 76 121/67 10/16/20 08:00 78 10/16/20 08:00 100 10/16/20 08:00 22 123/70 Mechanical Ventilator 100 10/16/20 08:00 22 123/70 Mechanical Ventilator 100 10/16/20 08:00 99.2 79 22 123/70 (87) 92 10/16/20 08:00 Mechanical Ventilator 10/16/20 07:30 78 22 108/61 (77) 92 10/16/20 07:00 22 111/60 Mechanical Ventilator 100 10/16/20 07:00 22 111/60 Mechanical Ventilator 100 10/16/20 07:00 79 22 111/60 (77) 92 10/16/20 06:00 77 22 103/57 (72) 91 10/16/20 06:00 22 103/57 Mechanical Ventilator 100 10/16/20 06:00 22 103/57 Mechanical Ventilator 100 10/16/20 05:00 22 107/56 Mechanical Ventilator 100 10/16/20 05:00 22 107/56 Mechanical Ventilator 100 10/16/20 05:00 79 22 107/56 (73) 91 10/16/20 04:00 98.8 82 22 109/59 (76) 90 10/16/20 04:00 100 1/4/21 04:00 82 10/16/20 04:00 22 109/59 Mechanical Ventilator 100 10/16/20 04:00 22 109/59 Mechanical Ventilator 100 10/16/20 04:00 Mechanical Ventilator 10/16/20 03:00 22 161/67 Mechanical Ventilator 100 10/16/20 03:00 22 161/67 Mechanical Ventilator 100 10/16/20 03:00 97 22 161/67 (98) 10/16/20 02:31 22 161/72 Mechanical Ventilator 100 10/16/20 02:00 85 22 153/73 (99) 90 10/16/20 02:00 22 153/73 Mechanical Ventilator 100 10/16/20 02:00 22 153/73 Mechanical Ventilator 100 10/16/20 01:00 23 139/76 Mechanical Ventilator 100 10/16/20 01:00 23 139/76 Mechanical Ventilator 100 10/16/20 01:00 88 23 139/76 (97) 87 10/16/20 00:41 93 25 100 10/16/20 00:00 Mechanical Ventilator 10/16/20 00:00 98.8 96 26 146/63 (90) 87 10/16/20 00:00 26 146/63 Mechanical Ventilator 100 10/16/20 00:00 26 146/63 Mechanical Ventilator 100 10/16/20 00:00 124 10/15/20 23:00 94 24 153/64 (93) 90 10/15/20 23:00 24 153/64 Mechanical Ventilator 100 10/15/20 23:00 24 153/64 Mechanical Ventilator 100 10/15/20 22:01 93 154/62 10/15/20 22:00 23 154/62 Mechanical Ventilator 100 10/15/20 22:00 23 154/62 Mechanical Ventilator 100 10/15/20 22:00 92 23 154/62 (92) 88 10/15/20 21:18 23 161/60 86 10/15/20 21:00 95 24 166/60 (95) 85 10/15/20 21:00 24 166/60 Mechanical Ventilator 100 10/15/20 21:00 24 166/60 Mechanical Ventilator 100 10/15/20 20:00 93 10/15/20 20:00 100 10/15/20 20:00 23 147/58 Mechanical Ventilator 100 10/15/20 20:00 23 147/58 Mechanical Ventilator 100 10/15/20 20:00 99.3 92 23 147/58 (87) 86 10/15/20 20:00 Mechanical Ventilator 10/15/20 19:00 22 150/66 Endotracheal Tube 100 10/15/20 19:00 22 150/66 Endotracheal Tube 100 10/15/20 19:00 95 24 149/62 (91) 86 10/15/20 18:49 95 22 100 10/15/20 18:10 96 23 100 10/15/20 18:00 96 25 158/65 (96) 84 10/15/20 18:00 25 158/65 Endotracheal Tube 100 10/15/20 18:00 25 158/65 Endotracheal Tube 100 10/15/20 17:45 26 144/58 Endotracheal Tube 100 10/15/20 17:45 26 144/58 Endotracheal Tube 100 10/15/20 17:30 97 26 144/58 (86) 84 10/15/20 17:30 26 140/62 Endotracheal Tube 100 10/15/20 17:30 26 140/62 Endotracheal Tube 100 10/15/20 17:15 27 137/69 Endotracheal Tube 100 10/15/20 17:15 27 137/69 Endotracheal Tube 100 10/15/20 17:00 105 28 132/58 (82) 79 10/15/20 17:00 30 117/70 Endotracheal Tube 100 10/15/20 17:00 30 117/70 Endotracheal Tube 100 Intake and Output 10/15/20 10/16/20 19:00 07:00 Intake Total 56.2765 ml 325.752 ml Output Total 0 ml 530 ml Balance 56.2765 ml -204.248 ml IV Total 56.2765 ml 265.752 ml Other 60 ml Output Urine Total 0 ml 530 ml # Voids 2 Objective deferred due to COVID Laboratory Tests 10/16/20 05:35: POC Whole Blood Glucose [Pending] 10/16/20 05:59: D-Dimer 10.41H, Sodium Level 142, Potassium Level 4.5, Chloride Level 100, Carbon Dioxide Level 39H, Anion Gap 1L, Blood Urea Nitrogen 34H, Creatinine 0.9, Estimat Glomerular Filtration Rate > 60, Glucose Level 173#H, Calcium Level 9.2, Total Bilirubin 0.2, Aspartate Amino Transf (AST/SGOT) 13L, Alanine Aminotransferase (ALT/SGPT) 13, Alkaline Phosphatase 129H, C-Reactive Protein, Quantitative [Pending], Total Protein 6.0L, Albumin 2.4L, Globulin 3.6, Albumin/Globulin Ratio 0.7L, Triglycerides Level 295H 10/16/20 15:35: Arterial Blood pH 7.422, Arterial Blood Partial Pressure CO2 66.9*H, Arterial Blood Partial Pressure O2 , Arterial Blood HCO3 42.6*H, Arterial Blood Oxygen Saturation 87.3*L, Arterial Blood Base Excess 15.7*H, Rico Test Positive Current Medications Medications (Trade) Dose Ordered Sig/Sera Route PRN Reason Start Time Stop Time Status Last Admin Dose Admin Acetaminophen (Tylenol) 650 mg Q4H PRN ORAL Mild Pain (Pain Scale 1-3) 09/18/20 23:45 10/18/20 23:44 10/15/20 09:25 Anastrozole (Arimidex) 1 mg DAILY ORAL 09/19/20 09:00 10/19/20 08:59 10/16/20 08:26 Ascorbic Acid (Vitamin C) 500 mg TWICE A DAY ORAL 09/30/20 20:00 10/30/20 19:59 10/16/20 08:27 Budesonide/ Formoterol Fumarate (Symbicort 160/ 4.5) 2 puff BIDRT INH 10/02/20 11:00 12/31/20 10:59 10/15/20 10:30 Cefepime HCl 2 gm/ Dextrose 55 ml @ 110 mls/hr Q12H IVPB 10/16/20 18:00 10/23/20 17:59 Cetylpyridinium Chloride (Cepacol) 1 lozg EVERY 2 HOURS PRN LAURA For Cough 09/25/20 18:15 12/24/20 18:14 09/28/20 21:19 Chlorhexidine Gluconate (Brandee-Hex 2%) 1 applic DAILY@2000 TOPIC 09/30/20 20:00 12/29/20 19:59 10/15/20 20:17 Clonidine HCl (Catapres Tab) 0.1 mg Q4H PRN ORAL SBP > 160 09/19/20 17:15 12/18/20 17:14 09/24/20 03:09 Cyclobenzaprine HCl (Flexeril) 10 mg TIDPRN PRN ORAL Muscle Spasm 10/11/20 00:00 10/18/20 00:00 Dextrose (Dextrose 50%) 25 ml Q30M PRN IV Hypoglycemia 10/02/20 22:00 12/31/20 21:59 Dextrose (Dextrose 50%) 50 ml Q30M PRN IV Hypoglycemia 10/02/20 22:00 12/31/20 21:59 Diltiazem HCl (Cardizem ER) 180 mg BID@0900,2100 ORAL 10/11/20 09:00 11/10/20 08:59 10/16/20 08:28 Docusate Sodium (Colace) 100 mg TWICE A DAY NG 10/16/20 09:00 11/15/20 08:59 10/16/20 08:26 Enoxaparin Sodium (Lovenox) 40 mg Q12HR SUBQ 10/16/20 09:00 01/14/21 08:59 10/16/20 08:29 Fentanyl Citrate 250 ml @ 1 mls/hr Q24H IV 10/15/20 16:30 10/17/20 16:29 10/15/20 16:53 Fluticasone Propionate (Flonase) 1 spray QHS NASAL 09/18/20 21:00 10/18/20 20:59 10/14/20 20:09 Furosemide (Lasix) 40 mg DAILY IV 10/12/20 09:00 11/11/20 08:59 10/16/20 08:26 Guaifenesin/ Codeine Phosphate (Robitussin with codeine) 10 ml Q6H PRN ORAL For Cough 10/12/20 01:45 11/11/20 01:44 10/14/20 16:09 Hydroxyzine HCl (Atarax) 50 mg Q4H PRN ORAL Itching 09/19/20 06:15 10/19/20 06:14 10/12/20 04:48 Insulin Aspart (NovoLOG) EVERY 6 HOURS SUBQ 10/16/20 06:00 01/01/21 06:29 10/16/20 11:46 Insulin Detemir (Levemir) 15 units BEDTIME SUBQ 10/11/20 21:00 12/31/20 21:59 10/15/20 21:19 Insulin Detemir (Levemir) 18 units DAILY SUBQ 10/11/20 09:00 01/09/21 08:59 10/16/20 09:29 Lactobacillus Acidophilus (Culturelle) 1 tab TWICE A DAY ORAL 09/25/20 18:00 12/24/20 17:59 10/16/20 08:26 Levalbuterol HCl (Xopenex) 1.25 mg Q8H PRN HHN Shortness of Breath 10/12/20 08:45 10/17/20 08:44 Lorazepam (Ativan 2mg/ml 1ml) 2 mg Q4H PRN IV For Anxiety 10/15/20 15:15 10/22/20 15:14 10/15/20 15:26 Lorazepam (Ativan) 1 mg Q4H PRN ORAL For Anxiety 10/13/20 09:45 10/20/20 09:44 10/15/20 09:25 Magnesium Hydroxide (Mom) 30 ml DAILYPRN PRN ORAL Constipation 10/03/20 15:15 11/02/20 15:14 10/07/20 11:37 Methylprednisolone Sodium Succinate (Solu-MEDROL) 40 mg EVERY 8 HOURS IVP 10/12/20 09:00 01/10/21 08:59 10/16/20 13:13 Ondansetron HCl (Zofran) 4 mg Q6H PRN IVP Nausea & Vomiting 09/18/20 19:00 10/18/20 18:59 10/15/20 09:25 Pantoprazole (Protonix) 40 mg EVERY 12 HOURS IVP 10/16/20 09:00 11/15/20 08:59 10/16/20 08:26 Propofol 100 ml @ 2.858 mls/ hr Q12H IV 10/15/20 15:30 10/17/20 15:29 10/16/20 13:45 Sertraline HCl (Zoloft) 100 mg DAILY ORAL 09/19/20 09:00 10/19/20 08:59 10/16/20 08:27 Vitamin D (Vitamin D) 1,000 unit DAILY ORAL 09/30/20 20:00 10/30/20 19:59 10/16/20 08:27 Zinc Sulfate (Zinc Sulfate) 220 mg DAILY ORAL 09/30/20 20:00 12/29/20 19:59 10/16/20 08:27 Assessment/Plan Assessment/Plan ASSESSMENT: acute on Chronic respiratory failure COPD exacerbation and facial cellulitis. diabetes, hypertension, chronic hypoxemia chronic debility, pulmonary congestion, COVID+ PLAN: on vent on solumedrol home meds supportive care oxygen therapy prognosis guarded medications/laboratory data/nursing notes/ICU care reviewed in detail note reviewed and edited care discussed with RN and RT ICU time spent >40 minutes Froilan Caruso MD Oct 16, 2020 16:58
[2020-10-16] MEDS: Cefepime HCl 2 GM in D5W 55 ML IVPB SCH (18:13)
[2020-10-16] MEDS: Dyna-Hex 2% Top Sol 2oz TOPIC SCH (20:54)
[2020-10-16] MEDS: Flonase Nasal Inhaler 16gm NASAL SCH (20:57)
[2020-10-17] VITALS (38 sets, daily range): BP systolic 98–142; BP diastolic 50–69
--- NOTE | 2020-10-17 02:35 | Cardiology Progress Note ---
Subjective DATE OF SERVICE: Oct 16, 2019 On full vent support Remains significantly hypoxic on 100% FIO2. Glucose iremains elevated due to steroids. Monitor: sinus tachycardia with arrhythmia and PAC's. Objective Last 24 Hour Vital Signs Date Time Temp Pulse Resp B/P (MAP) Pulse Ox O2 Delivery O2 Flow Rate FiO2 10/17/20 02:00 22 107/55 Mechanical Ventilator 100 10/17/20 02:00 22 107/55 Mechanical Ventilator 100 10/17/20 02:00 79 22 107/55 (72) 92 10/17/20 01:00 79 19 104/60 (75) 90 10/17/20 01:00 21 104/60 Mechanical Ventilator 70 10/17/20 01:00 21 104/60 Mechanical Ventilator 70 10/17/20 00:00 80 10/17/20 00:00 21 120/62 Mechanical Ventilator 100 10/17/20 00:00 21 120/62 Mechanical Ventilator 100 10/17/20 00:00 Mechanical Ventilator 10/17/20 00:00 99.0 80 21 120/62 (81) 90 10/17/20 00:00 100 10/16/20 23:30 21 130/62 Mechanical Ventilator 100 10/16/20 23:05 76 22 100 10/16/20 23:00 20 107/55 Mechanical Ventilator 100 10/16/20 23:00 20 107/55 Mechanical Ventilator 100 10/16/20 23:00 78 20 107/55 (72) 91 10/16/20 22:00 79 21 116/57 (76) 90 10/16/20 22:00 21 116/57 Mechanical Ventilator 100 10/16/20 22:00 21 116/57 Mechanical Ventilator 100 10/16/20 21:32 21 111/61 Mechanical Ventilator 100 10/16/20 21:00 21 112/58 Mechanical Ventilator 100 10/16/20 21:00 21 112/58 Mechanical Ventilator 100 10/16/20 21:00 80 21 112/58 (76) 89 10/16/20 20:54 81 115/64 10/16/20 20:00 99.0 85 23 99/54 (69) 91 10/16/20 20:00 23 99/54 Mechanical Ventilator 100 10/16/20 20:00 23 99/54 Mechanical Ventilator 100 10/16/20 20:00 Mechanical Ventilator 10/16/20 20:00 84 10/16/20 20:00 100 10/16/20 19:25 77 24 100 10/16/20 19:00 76 28 108/53 (71) 91 10/16/20 19:00 22 108/53 Mechanical Ventilator 100 10/16/20 19:00 22 108/53 Mechanical Ventilator 100 10/16/20 18:42 22 100/50 Mechanical Ventilator 100 10/16/20 18:00 84 21 106/57 (73) 91 10/16/20 18:00 22 106/57 Mechanical Ventilator 100 10/16/20 18:00 22 106/57 Mechanical Ventilator 100 10/16/20 17:30 78 22 101/62 (75) 91 10/16/20 17:00 22 100/61 Mechanical Ventilator 100 10/16/20 17:00 22 100/61 Mechanical Ventilator 100 10/16/20 17:00 80 22 100/61 (74) 91 10/16/20 16:30 81 22 109/56 (73) 92 10/16/20 16:00 98.6 80 22 98/59 (72) 91 10/16/20 16:00 80 10/16/20 16:00 100 10/16/20 16:00 22 101/56 Mechanical Ventilator 100 10/16/20 16:00 22 101/56 Mechanical Ventilator 100 10/16/20 16:00 Mechanical Ventilator 10/16/20 15:30 79 22 95/51 (66) 89 10/16/20 15:00 78 22 98/55 (69) 88 10/16/20 15:00 22 98/55 Mechanical Ventilator 100 10/16/20 15:00 22 98/55 Mechanical Ventilator 100 10/16/20 14:30 81 22 117/60 (79) 89 10/16/20 14:00 82 22 111/56 (74) 90 10/16/20 14:00 22 111/56 Mechanical Ventilator 100 10/16/20 14:00 22 111/56 Mechanical Ventilator 100 10/16/20 13:45 22 111/61 Mechanical Ventilator 100 10/16/20 13:30 81 22 111/61 (78) 93 10/16/20 13:00 81 22 107/59 (75) 92 10/16/20 13:00 22 107/59 Mechanical Ventilator 100 10/16/20 13:00 22 107/59 Mechanical Ventilator 100 10/16/20 12:38 97 21 100 10/16/20 12:30 83 22 109/62 (78) 91 10/16/20 12:00 100 10/16/20 12:00 98.6 83 22 106/63 (77) 90 10/16/20 12:00 Mechanical Ventilator 10/16/20 12:00 22 106/63 Mechanical Ventilator 100 10/16/20 12:00 22 106/63 Mechanical Ventilator 100 10/16/20 12:00 82 10/16/20 11:30 84 22 109/64 (79) 89 10/16/20 11:00 22 116/66 Mechanical Ventilator 100 10/16/20 11:00 22 116/66 Mechanical Ventilator 100 10/16/20 11:00 87 22 116/66 (83) 87 10/16/20 10:30 88 22 118/65 (82) 85 10/16/20 10:00 22 132/64 Mechanical Ventilator 100 10/16/20 10:00 22 132/64 Mechanical Ventilator 100 10/16/20 10:00 88 22 135/66 (89) 86 10/16/20 09:30 96 23 155/70 (98) 84 10/16/20 09:00 79 22 131/72 (91) 91 10/16/20 09:00 22 139/82 Mechanical Ventilator 100 10/16/20 09:00 22 139/82 Mechanical Ventilator 100 10/16/20 08:30 78 22 117/64 (81) 91 10/16/20 08:28 76 121/67 10/16/20 08:00 78 10/16/20 08:00 100 10/16/20 08:00 22 123/70 Mechanical Ventilator 100 10/16/20 08:00 22 123/70 Mechanical Ventilator 100 10/16/20 08:00 99.2 79 22 123/70 (87) 92 10/16/20 08:00 Mechanical Ventilator 10/16/20 07:30 78 22 108/61 (77) 92 10/16/20 07:08 92 24 100 10/16/20 07:00 22 111/60 Mechanical Ventilator 100 10/16/20 07:00 22 111/60 Mechanical Ventilator 100 10/16/20 07:00 79 22 111/60 (77) 92 10/16/20 06:00 77 22 103/57 (72) 91 10/16/20 06:00 22 103/57 Mechanical Ventilator 100 10/16/20 06:00 22 103/57 Mechanical Ventilator 100 10/16/20 05:00 22 107/56 Mechanical Ventilator 100 10/16/20 05:00 22 107/56 Mechanical Ventilator 100 10/16/20 05:00 79 22 107/56 (73) 91 10/16/20 04:00 98.8 82 22 109/59 (76) 90 10/16/20 04:00 100 10/16/20 04:00 82 10/16/20 04:00 22 109/59 Mechanical Ventilator 100 10/16/20 04:00 22 109/59 Mechanical Ventilator 100 10/16/20 04:00 Mechanical Ventilator 10/16/20 03:00 22 161/67 Mechanical Ventilator 100 10/16/20 03:00 22 161/67 Mechanical Ventilator 100 10/16/20 03:00 97 22 161/67 (98) ROS: unchanged from 09/18/20 HEENT: Orally intubated, Mechanically Ventilated RHYTHM: NSR, ST, PACs LUNGS: bilateral rhonchi, coarse breath sounds CARDIAC: normal rate, regular rhythm, normal S1 and S2, gallop/S4 ABDOMEN: normal bowel sounds, non tender, soft, no organomegaly, other - obese EXTREMITIES: +1 edema Laboratory Tests Test 10/16/20 05:35 10/16/20 05:59 10/16/20 15:35 10/16/20 20:31 POC Whole Blood Glucose Pending Pending D-Dimer 10.41 mg/L FEU (0.00-0.49) H Sodium Level 142 MMOL/L (136-145) Potassium Level 4.5 MMOL/L (3.5-5.1) Chloride Level 100 MMOL/L (98-107) Carbon Dioxide Level 39 MMOL/L (21-32) H Anion Gap 1 mmol/L (5-15) L Blood Urea Nitrogen 34 mg/dL (7-18) H Creatinine 0.9 MG/DL (0.55-1.30) Estimat Glomerular Filtration Rate > 60 mL/min (>60) Glucose Level 173 MG/DL (74-106) #H Calcium Level 9.2 MG/DL (8.5-10.1) Total Bilirubin 0.2 MG/DL (0.2-1.0) Aspartate Amino Transf (AST/SGOT) 13 U/L (15-37) L Alanine Aminotransferase (ALT/SGPT) 13 U/L (12-78) Alkaline Phosphatase 129 U/L (46-116) H C-Reactive Protein, Quantitative Pending Total Protein 6.0 G/DL (6.4-8.2) L Albumin 2.4 G/DL (3.4-5.0) L Globulin 3.6 g/dL Albumin/Globulin Ratio 0.7 (1.0-2.7) L Triglycerides Level 295 MG/DL (30-150) H Arterial Blood pH 7.422 (7.350-7.450) Arterial Blood Partial Pressure CO2 66.9 mmHg (35.0-45.0) *H Arterial Blood Partial Pressure O2 mmHg (75.0-100.0) Arterial Blood HCO3 42.6 mmol/L (22.0-26.0) *H Arterial Blood Oxygen Saturation 87.3 % (95-100) *L Arterial Blood Base Excess 15.7 (-2-2) *H Rico Test Positive Test 10/16/20 23:25 POC Whole Blood Glucose 246 MG/DL (74-106) H Assessment/Plan Assessment/Plan COVID19 pneumonia Respiratory failure COPD exacerbation Hypoxia Paroxysmal atrial ectopy Sinus tachyarrhythmias Acute bronchitis worsening. Ac/chr diastolic CHF with decreasing BNP now - clinically compensated. Hx breast CA Paroxysmal atrial ectopy Hypertensive heart disease Sinus tachycardia improved UTI - K.pn (multi-drug resistant) IRDM uncontrolled on steroids Constipation Myalgias PAFibrillation REMAINS CRITICAL AND GUARDED Continue IV steroids Anti-viral rx per ID - remdesivir completed O2 taper with full vent support Anti-coagulation Diuresis based on clinical parameters; trend BNP as needed. Titrate antiHTN regimen as needed - will replace amlodipine with diltiazem for atrial arrhythmia management. Insulin coverage with ongoing levemir titration - see orders Bowel regimen Werner Martinez MD Oct 17, 2020 02:35
[2020-10-17] MEDS: propofoL 1,000mg/100ml 100 ML IV SCH ×4 (05:30→20:31)
[2020-10-17] MEDS: Solu-MEDROL 40mg Inj IVP SCH ×3 (05:31→20:31)
[2020-10-17] MEDS: Cefepime HCl 2 GM in D5W 55 ML IVPB SCH ×2 (05:31→17:51)
[2020-10-17] MEDS: NovoLOG Insulin Flexpen SUBQ SCH ×4 (05:32→23:43)
[2020-10-17] MEDS: Lactobacillus-GG tablet ORAL SCH ×2 (08:04→17:51)
[2020-10-17] MEDS: Pantoprazole Inj IVP SCH ×2 (08:04→20:31)
[2020-10-17] MEDS: Zinc Sulfate 220mg ORAL SCH (08:04)
[2020-10-17] MEDS: Anastrazole 1mg tab ORAL SCH (08:04)
[2020-10-17] MEDS: Docusate 100mg/10ml Liq NG SCH ×2 (08:04→17:51)
[2020-10-17] MEDS: Vitamin D 1000 units Tab ORAL SCH (08:04)
[2020-10-17] MEDS: Ascorbic Acid 500mg tab ORAL SCH ×2 (08:05→17:53)
[2020-10-17] MEDS: dilTIAZem HCl ER 180mg cap ORAL SCH ×2 (08:05→20:32)
[2020-10-17] MEDS: Sertraline 100mg tab ORAL SCH (08:05)
[2020-10-17] MEDS: Enoxaparin 80mg Inj SUBQ SCH ×2 (08:06→20:32)
--- NOTE | 2020-10-17 08:26 | Diagnostic Imaging Report ---
Indication: Bilateral lower extremity pain Technique: Grayscale and duplex images of the bilateral lower extremity veins Comparison: none Findings: Bilaterally, grayscale and duplex images demonstrate no evidence of intraluminal thrombus. Normal phasic Doppler waveforms, demonstrating normal augmentation response and no evidence of valvular insufficiency. Greater saphenous vein(s) and tibial veins are patent. Normal compressibility. Impression: Negative for evidence of lower extremity deep venous thrombosis bilaterally
--- NOTE | 2020-10-17 08:43 | Pulmonology Progress Note ---
Subjective ROS Limited/Unobtainable: Yes Musculoskeletal: Denies: pain Allergies: Coded Allergies: AMOXICILLIN (Verified Allergy, Mild, RASH HIVES, 09/29/13) ERYTHROMYCIN BASE (Unverified Allergy, Unknown, 10/13/17) IODINE (Verified Allergy, Unknown, 09/29/13) PENICILLINS (Verified Allergy, Unknown, RASH HIVES, 09/29/13) All Systems: reviewed and negative except above Subjective now intubated on vent and poor oxygen saturation remain at present + COVID sedated for now on PEEP Objective Last 24 Hour Vital Signs Date Time Temp Pulse Resp B/P (MAP) Pulse Ox O2 Delivery O2 Flow Rate FiO2 10/17/20 08:05 78 116/58 10/17/20 08:00 98.9 75 21 116/58 (77) 91 10/17/20 08:00 22 111/54 Mechanical Ventilator 100 10/17/20 08:00 22 111/54 Mechanical Ventilator 100 10/17/20 08:00 Mechanical Ventilator 10/17/20 08:00 100 10/17/20 07:30 77 18 119/56 (77) 92 10/17/20 07:00 75 20 119/60 (79) 90 10/17/20 07:00 20 119/60 Mechanical Ventilator 100 10/17/20 07:00 20 119/60 Mechanical Ventilator 100 10/17/20 06:00 79 21 126/59 (81) 91 10/17/20 06:00 21 126/59 100 10/17/20 06:00 21 126/59 Mechanical Ventilator 100 10/17/20 05:30 21 115/61 Mechanical Ventilator 100 10/17/20 05:00 78 19 132/69 (90) 92 10/17/20 05:00 19 132/69 Mechanical Ventilator 100 10/17/20 05:00 19 132/69 Mechanical Ventilator 100 10/17/20 04:00 97 10/17/20 04:00 24 126/61 Mechanical Ventilator 100 10/17/20 04:00 24 126/61 Mechanical Ventilator 100 10/17/20 04:00 Mechanical Ventilator 10/17/20 04:00 100 10/17/20 04:00 98.5 83 24 126/61 (82) 89 10/17/20 03:09 75 27 100 10/17/20 03:00 21 108/57 Mechanical Ventilator 100 10/17/20 03:00 21 108/57 Mechanical Ventilator 100 10/17/20 03:00 77 21 108/57 (74) 92 10/17/20 02:00 22 107/55 Mechanical Ventilator 100 10/17/20 02:00 22 107/55 Mechanical Ventilator 100 10/17/20 02:00 79 22 107/55 (72) 92 10/17/20 01:00 79 19 104/60 (75) 90 10/17/20 01:00 21 104/60 Mechanical Ventilator 70 10/17/20 01:00 21 104/60 Mechanical Ventilator 70 10/17/20 00:00 80 10/17/20 00:00 21 120/62 Mechanical Ventilator 100 10/17/20 00:00 21 120/62 Mechanical Ventilator 100 10/17/20 00:00 Mechanical Ventilator 10/17/20 00:00 99.0 80 21 120/62 (81) 90 10/17/20 00:00 100 10/16/20 23:30 21 130/62 Mechanical Ventilator 100 10/16/20 23:05 76 22 100 10/16/20 23:00 20 107/55 Mechanical Ventilator 100 10/16/20 23:00 20 107/55 Mechanical Ventilator 100 10/16/20 23:00 78 20 107/55 (72) 91 10/16/20 22:00 79 21 116/57 (76) 90 10/16/20 22:00 21 116/57 Mechanical Ventilator 100 10/16/20 22:00 21 116/57 Mechanical Ventilator 100 10/16/20 21:32 21 111/61 Mechanical Ventilator 100 10/16/20 21:00 21 112/58 Mechanical Ventilator 100 10/16/20 21:00 21 112/58 Mechanical Ventilator 100 10/16/20 21:00 80 21 112/58 (76) 89 10/16/20 20:54 81 115/64 10/16/20 20:00 99.0 85 23 99/54 (69) 91 10/16/20 20:00 23 99/54 Mechanical Ventilator 100 10/16/20 20:00 23 99/54 Mechanical Ventilator 100 10/16/20 20:00 Mechanical Ventilator 10/16/20 20:00 84 10/16/20 20:00 100 10/16/20 19:25 77 24 100 10/16/20 19:00 76 28 108/53 (71) 91 10/16/20 19:00 22 108/53 Mechanical Ventilator 100 10/16/20 19:00 22 108/53 Mechanical Ventilator 100 10/16/20 18:42 22 100/50 Mechanical Ventilator 100 10/16/20 18:00 84 21 106/57 (73) 91 10/16/20 18:00 22 106/57 Mechanical Ventilator 100 10/16/20 18:00 22 106/57 Mechanical Ventilator 100 10/16/20 17:30 78 22 101/62 (75) 91 10/16/20 17:00 22 100/61 Mechanical Ventilator 100 10/16/20 17:00 22 100/61 Mechanical Ventilator 100 10/16/20 17:00 80 22 100/61 (74) 91 10/16/20 16:30 81 22 109/56 (73) 92 10/16/20 16:00 98.6 80 22 98/59 (72) 91 10/16/20 16:00 80 10/16/20 16:00 100 10/16/20 16:00 22 101/56 Mechanical Ventilator 100 10/16/20 16:00 22 101/56 Mechanical Ventilator 100 10/16/20 16:00 Mechanical Ventilator 10/16/20 15:30 79 22 95/51 (66) 89 10/16/20 15:00 78 22 98/55 (69) 88 10/16/20 15:00 22 98/55 Mechanical Ventilator 100 10/16/20 15:00 22 98/55 Mechanical Ventilator 100 10/16/20 14:30 81 22 117/60 (79) 89 10/16/20 14:00 82 22 111/56 (74) 90 10/16/20 14:00 22 111/56 Mechanical Ventilator 100 10/16/20 14:00 22 111/56 Mechanical Ventilator 100 10/16/20 13:45 22 111/61 Mechanical Ventilator 100 10/16/20 13:30 81 22 111/61 (78) 93 10/16/20 13:00 81 22 107/59 (75) 92 10/16/20 13:00 22 107/59 Mechanical Ventilator 100 10/16/20 13:00 22 107/59 Mechanical Ventilator 100 10/16/20 12:38 97 21 100 10/16/20 12:30 83 22 109/62 (78) 91 10/16/20 12:00 100 10/16/20 12:00 98.6 83 22 106/63 (77) 90 10/16/20 12:00 Mechanical Ventilator 10/16/20 12:00 22 106/63 Mechanical Ventilator 100 10/16/20 12:00 22 106/63 Mechanical Ventilator 100 10/16/20 12:00 82 10/16/20 11:30 84 22 109/64 (79) 89 10/16/20 11:00 22 116/66 Mechanical Ventilator 100 10/16/20 11:00 22 116/66 Mechanical Ventilator 100 10/16/20 11:00 87 22 116/66 (83) 87 10/16/20 10:30 88 22 118/65 (82) 85 10/16/20 10:00 22 132/64 Mechanical Ventilator 100 10/16/20 10:00 22 132/64 Mechanical Ventilator 100 10/16/20 10:00 88 22 135/66 (89) 86 10/16/20 09:30 96 23 155/70 (98) 84 10/16/20 09:00 79 22 131/72 (91) 91 10/16/20 09:00 22 139/82 Mechanical Ventilator 100 10/16/20 09:00 22 139/82 Mechanical Ventilator 100 Intake and Output 10/16/20 10/17/20 19:00 07:00 Intake Total 834.740 ml 665.939 ml Output Total 1370 ml 420 ml Balance -535.260 ml 245.939 ml IV Total 304.740 ml 245.939 ml Tube Feeding 210 ml 360 ml Other 320 ml 60 ml Output Urine Total 1370 ml 420 ml Objective deferred due to COVID Laboratory Tests 10/16/20 15:35: Arterial Blood pH 7.422, Arterial Blood Partial Pressure CO2 66.9*H, Arterial Blood Partial Pressure O2 , Arterial Blood HCO3 42.6*H, Arterial Blood Oxygen Saturation 87.3*L, Arterial Blood Base Excess 15.7*H, Rico Test Positive 10/16/20 20:31: POC Whole Blood Glucose [Pending] 10/16/20 23:25: POC Whole Blood Glucose 246H 10/17/20 05:00: POC Whole Blood Glucose [Pending] Current Medications Medications (Trade) Dose Ordered Sig/Sera Route PRN Reason Start Time Stop Time Status Last Admin Dose Admin Acetaminophen (Tylenol) 650 mg Q4H PRN ORAL Mild Pain (Pain Scale 1-3) 12/7/20 23:45 10/18/20 23:44 10/15/20 09:25 Anastrozole (Arimidex) 1 mg DAILY ORAL 09/19/20 09:00 10/19/20 08:59 10/17/20 08:04 Ascorbic Acid (Vitamin C) 500 mg TWICE A DAY ORAL 09/30/20 20:00 10/30/20 19:59 10/17/20 08:05 Budesonide/ Formoterol Fumarate (Symbicort 160/ 4.5) 2 puff BIDRT INH 10/02/20 11:00 12/31/20 10:59 10/15/20 10:30 Cefepime HCl 2 gm/ Dextrose 55 ml @ 110 mls/hr Q12H IVPB 10/16/20 18:00 10/23/20 17:59 10/17/20 05:31 Cetylpyridinium Chloride (Cepacol) 1 lozg EVERY 2 HOURS PRN LAURA For Cough 09/25/20 18:15 12/24/20 18:14 09/28/20 21:19 Chlorhexidine Gluconate (Brandee-Hex 2%) 1 applic DAILY@1999 TOPIC 09/30/20 20:00 12/29/20 19:59 10/16/20 20:54 Clonidine HCl (Catapres Tab) 0.1 mg Q4H PRN ORAL SBP > 160 09/19/20 17:15 12/18/20 17:14 09/24/20 03:09 Cyclobenzaprine HCl (Flexeril) 10 mg TIDPRN PRN ORAL Muscle Spasm 10/11/20 00:00 10/18/20 00:00 Dextrose (Dextrose 50%) 25 ml Q30M PRN IV Hypoglycemia 10/02/20 22:00 12/31/20 21:59 Dextrose (Dextrose 50%) 50 ml Q30M PRN IV Hypoglycemia 10/02/20 22:00 12/31/20 21:59 Diltiazem HCl (Cardizem ER) 180 mg BID@0900,2100 ORAL 10/11/20 09:00 11/10/20 08:59 10/17/20 08:05 Docusate Sodium (Colace) 100 mg TWICE A DAY NG 10/16/20 09:00 11/15/20 08:59 10/17/20 08:04 Enoxaparin Sodium (Lovenox) 40 mg Q12HR SUBQ 10/16/20 09:00 01/14/21 08:59 10/17/20 08:06 Fentanyl Citrate 1000 mcg/Sodium Chloride 100 ml @ 0 mls/hr Q24H PRN IV SEDATION 10/16/20 21:30 10/18/20 21:29 10/16/20 21:32 Fluticasone Propionate (Flonase) 1 spray QHS NASAL 09/18/20 21:00 10/18/20 20:59 10/14/20 20:09 Furosemide (Lasix) 40 mg DAILY IV 10/12/20 09:00 11/11/20 08:59 10/17/20 08:04 Guaifenesin/ Codeine Phosphate (Robitussin with codeine) 10 ml Q6H PRN ORAL For Cough 10/12/20 01:45 11/11/20 01:44 10/14/20 16:09 Hydroxyzine HCl (Atarax) 50 mg Q4H PRN ORAL Itching 09/19/20 06:15 10/19/20 06:14 10/12/20 04:48 Insulin Aspart (NovoLOG) EVERY 6 HOURS SUBQ 10/16/20 06:00 01/01/21 06:29 10/17/20 05:32 Insulin Detemir (Levemir) 15 units BEDTIME SUBQ 10/11/20 21:00 12/31/20 21:59 10/16/20 21:17 Insulin Detemir (Levemir) 18 units DAILY SUBQ 10/11/20 09:00 01/09/21 08:59 10/16/20 09:29 Lactobacillus Acidophilus (Culturelle) 1 tab TWICE A DAY ORAL 09/25/20 18:00 12/24/20 17:59 10/17/20 08:04 Levalbuterol HCl (Xopenex) 1.25 mg Q8H PRN HHN Shortness of Breath 10/12/20 08:45 10/17/20 08:44 Lorazepam (Ativan 2mg/ml 1ml) 2 mg Q4H PRN IV For Anxiety 10/15/20 15:15 10/22/20 15:14 10/15/20 15:26 Lorazepam (Ativan) 1 mg Q4H PRN ORAL For Anxiety 10/13/20 09:45 10/20/20 09:44 10/15/20 09:25 Magnesium Hydroxide (Mom) 30 ml DAILYPRN PRN ORAL Constipation 10/03/20 15:15 11/02/20 15:14 10/07/20 11:37 Methylprednisolone Sodium Succinate (Solu-MEDROL) 40 mg EVERY 8 HOURS IVP 10/12/20 09:00 01/10/21 08:59 10/17/20 05:31 Ondansetron HCl (Zofran) 4 mg Q6H PRN IVP Nausea & Vomiting 09/18/20 19:00 10/18/20 18:59 10/15/20 09:25 Pantoprazole (Protonix) 40 mg EVERY 12 HOURS IVP 10/16/20 09:00 11/15/20 08:59 10/17/20 08:04 Propofol 100 ml @ 2.858 mls/ hr Q12H IV 10/15/20 15:30 10/17/20 15:29 10/17/20 05:30 Sertraline HCl (Zoloft) 100 mg DAILY ORAL 09/19/20 09:00 10/19/20 08:59 10/17/20 08:05 Vitamin D (Vitamin D) 1,000 unit DAILY ORAL 09/30/20 20:00 10/30/20 19:59 10/17/20 08:04 Zinc Sulfate (Zinc Sulfate) 220 mg DAILY ORAL 09/30/20 20:00 12/29/20 19:59 10/17/20 08:04 Assessment/Plan Assessment/Plan ASSESSMENT: acute on Chronic respiratory failure COPD exacerbation and facial cellulitis. diabetes, hypertension, chronic hypoxemia chronic debility, pulmonary congestion, COVID+ PLAN: on vent as is PEEP 100% on solumedrol home meds supportive care oxygen therapy prognosis guarded IV antibiotics nutrition off load as able medications/laboratory data/nursing notes/ICU care reviewed in detail note reviewed and edited care discussed with RN and RT ICU time spent >40 minutes Froilan Caruso MD Oct 17, 2020 08:43
[2020-10-17] MEDS: Levemir Flexpen SUBQ SCH ×2 (08:56→21:03)
[2020-10-17 09:38] LABS: HEMATOCRIT 33.4 % (37.0-47.0); HEMOGLOBIN 10.2 G/DL (12.0-16.0); MEAN CORPUSCULAR VOLUME 92 FL (80-99); PLATELET COUNT 331 K/UL (150-450); RED BLOOD COUNT 3.64 M/UL (4.20-5.40); RED CELL DISTRIBUTION WIDTH 14.4 % (11.6-14.8); WHITE BLOOD COUNT 17.1 K/UL (4.8-10.8)
[2020-10-17 09:51] LABS: ANION GAP 2 mmol/L (5-15); BLOOD UREA NITROGEN 47 mg/dL (7-18); CALCIUM 9.4 MG/DL (8.5-10.1); CHLORIDE 98 MMOL/L (98-107); CREATININE 1.1 MG/DL (0.55-1.30); POTASSIUM 4.1 MMOL/L (3.5-5.1); SODIUM 142 MMOL/L (136-145)
[2020-10-17 09:57] LABS: CARBON DIOXIDE 41 MMOL/L (21-32)
--- NOTE | 2020-10-17 15:12 | General Progress Note ---
Subjective ROS Limited/Unobtainable: Yes Constitutional: Reports: malaise, weakness HEENT: Reports: no symptoms Cardiovascular: Reports: no symptoms Respiratory: Reports: no symptoms Gastrointestinal/Abdominal: Reports: no symptoms Genitourinary: Reports: no symptoms Neurologic/Psychiatric: Reports: no symptoms Endocrine: Reports: no symptoms Hematologic/Lymphatic: Reports: no symptoms Allergies: Coded Allergies: AMOXICILLIN (Verified Allergy, Mild, RASH HIVES, 09/29/13) ERYTHROMYCIN BASE (Unverified Allergy, Unknown, 10/13/17) IODINE (Verified Allergy, Unknown, 09/29/13) PENICILLINS (Verified Allergy, Unknown, RASH HIVES, 09/29/13) All Systems: reviewed and negative except above Subjective sedated. on the vent. no fevers. sats high 80s to low 90s. on ngt feeds. cxr unchanged. BS stable. Objective Last 24 Hour Vital Signs Date Time Temp Pulse Resp B/P (MAP) Pulse Ox O2 Delivery O2 Flow Rate FiO2 10/17/20 15:00 73 20 113/59 (77) 89 10/17/20 14:30 73 22 112/55 (74) 89 10/17/20 14:00 72 22 117/57 (77) 90 10/17/20 14:00 22 117/57 Mechanical Ventilator 100 10/17/20 14:00 22 117/57 Mechanical Ventilator 100 10/17/20 13:30 72 22 114/57 (76) 90 10/17/20 13:00 73 20 109/57 (74) 90 10/17/20 13:00 22 106/57 Mechanical Ventilator 100 10/17/20 13:00 22 106/57 Mechanical Ventilator 100 10/17/20 12:30 74 19 106/53 (70) 89 10/17/20 12:00 100 10/17/20 12:00 73 10/17/20 12:00 22 120/53 Mechanical Ventilator 100 10/17/20 12:00 22 120/53 Mechanical Ventilator 100 10/17/20 12:00 Mechanical Ventilator 10/17/20 12:00 98.9 74 21 120/53 (75) 89 10/17/20 11:30 73 23 105/55 (72) 88 10/17/20 11:25 22 120/53 Mechanical Ventilator 100 10/17/20 11:09 81 27 100 10/17/20 11:00 76 19 114/56 (75) 89 10/17/20 11:00 22 114/56 Mechanical Ventilator 100 10/17/20 11:00 22 114/56 Mechanical Ventilator 100 10/17/20 10:30 77 21 111/52 (71) 90 10/17/20 10:00 78 21 114/56 (75) 90 10/17/20 10:00 22 114/56 Mechanical Ventilator 100 10/17/20 10:00 22 114/56 Mechanical Ventilator 22 10/17/20 09:30 76 21 112/56 (74) 88 10/17/20 09:00 81 25 142/67 (92) 84 10/17/20 09:00 22 115/55 Mechanical Ventilator 100 10/17/20 09:00 22 115/55 Mechanical Ventilator 100 10/17/20 08:30 77 19 106/56 (73) 91 10/17/20 08:05 78 116/58 10/17/20 08:00 98.9 75 21 116/58 (77) 91 10/17/20 08:00 22 111/54 Mechanical Ventilator 100 10/17/20 08:00 22 111/54 Mechanical Ventilator 100 10/17/20 08:00 Mechanical Ventilator 10/17/20 08:00 100 10/17/20 08:00 77 10/17/20 07:30 77 18 119/56 (77) 92 10/17/20 07:08 73 25 100 10/17/20 07:00 75 20 119/60 (79) 90 10/17/20 07:00 20 119/60 Mechanical Ventilator 100 10/17/20 07:00 20 119/60 Mechanical Ventilator 100 10/17/20 06:00 79 21 126/59 (81) 91 10/17/20 06:00 21 126/59 100 10/17/20 06:00 21 126/59 Mechanical Ventilator 100 10/17/20 05:30 21 115/61 Mechanical Ventilator 100 10/17/20 05:00 78 19 132/69 (90) 92 10/17/20 05:00 19 132/69 Mechanical Ventilator 100 10/17/20 05:00 19 132/69 Mechanical Ventilator 100 10/17/20 04:00 97 10/17/20 04:00 24 126/61 Mechanical Ventilator 100 10/17/20 04:00 24 126/61 Mechanical Ventilator 100 10/17/20 04:00 Mechanical Ventilator 10/17/20 04:00 100 10/17/20 04:00 98.5 83 24 126/61 (82) 89 10/17/20 03:09 75 27 100 10/17/20 03:00 21 108/57 Mechanical Ventilator 100 10/17/20 03:00 21 108/57 Mechanical Ventilator 100 10/17/20 03:00 77 21 108/57 (74) 92 10/17/20 02:00 22 107/55 Mechanical Ventilator 100 10/17/20 02:00 22 107/55 Mechanical Ventilator 100 10/17/20 02:00 79 22 107/55 (72) 92 10/17/20 01:00 79 19 104/60 (75) 90 10/17/20 01:00 21 104/60 Mechanical Ventilator 70 10/17/20 01:00 21 104/60 Mechanical Ventilator 70 10/17/20 00:00 80 10/17/20 00:00 21 120/62 Mechanical Ventilator 100 10/17/20 00:00 21 120/62 Mechanical Ventilator 100 10/17/20 00:00 Mechanical Ventilator 10/17/20 00:00 99.0 80 21 120/62 (81) 90 10/17/20 00:00 100 10/16/20 23:30 21 130/62 Mechanical Ventilator 100 10/16/20 23:05 76 22 100 10/16/20 23:00 20 107/55 Mechanical Ventilator 100 10/16/20 23:00 20 107/55 Mechanical Ventilator 100 10/16/20 23:00 78 20 107/55 (72) 91 10/16/20 22:00 79 21 116/57 (76) 90 10/16/20 22:00 21 116/57 Mechanical Ventilator 100 10/16/20 22:00 21 116/57 Mechanical Ventilator 100 10/16/20 21:32 21 111/61 Mechanical Ventilator 100 10/16/20 21:00 21 112/58 Mechanical Ventilator 100 10/16/20 21:00 21 112/58 Mechanical Ventilator 100 10/16/20 21:00 80 21 112/58 (76) 89 10/16/20 20:54 81 115/64 10/16/20 20:00 99.0 85 23 99/54 (69) 91 10/16/20 20:00 23 99/54 Mechanical Ventilator 100 10/16/20 20:00 23 99/54 Mechanical Ventilator 100 10/16/20 20:00 Mechanical Ventilator 10/16/20 20:00 84 10/16/20 20:00 100 10/16/20 19:25 77 24 100 10/16/20 19:00 76 28 108/53 (71) 91 10/16/20 19:00 22 108/53 Mechanical Ventilator 100 10/16/20 19:00 22 108/53 Mechanical Ventilator 100 10/16/20 18:42 22 100/50 Mechanical Ventilator 100 10/16/20 18:00 84 21 106/57 (73) 91 10/16/20 18:00 22 106/57 Mechanical Ventilator 100 10/16/20 18:00 22 106/57 Mechanical Ventilator 100 10/16/20 17:30 78 22 101/62 (75) 91 10/16/20 17:00 22 100/61 Mechanical Ventilator 100 10/16/20 17:00 22 100/61 Mechanical Ventilator 100 10/16/20 17:00 80 22 100/61 (74) 91 10/16/20 16:30 81 22 109/56 (73) 92 10/16/20 16:00 98.6 80 22 98/59 (72) 91 10/16/20 16:00 80 10/16/20 16:00 100 10/16/20 16:00 22 101/56 Mechanical Ventilator 100 10/16/20 16:00 22 101/56 Mechanical Ventilator 100 10/16/20 16:00 Mechanical Ventilator 10/16/20 15:30 79 22 95/51 (66) 89 Intake and Output 10/16/20 10/17/20 19:00 07:00 Intake Total 834.740 ml 665.939 ml Output Total 1370 ml 420 ml Balance -535.260 ml 245.939 ml IV Total 304.740 ml 245.939 ml Tube Feeding 210 ml 360 ml Other 320 ml 60 ml Output Urine Total 1370 ml 420 ml Laboratory Tests 10/16/20 15:35: Arterial Blood pH 7.422, Arterial Blood Partial Pressure CO2 66.9*H, Arterial Blood Partial Pressure O2 , Arterial Blood HCO3 42.6*H, Arterial Blood Oxygen Saturation 87.3*L, Arterial Blood Base Excess 15.7*H, Rico Test Positive 10/16/20 20:31: POC Whole Blood Glucose [Pending] 10/16/20 23:25: POC Whole Blood Glucose 246H 10/17/20 05:00: POC Whole Blood Glucose [Pending] 10/17/20 09:05: White Blood Count 17.1H, Red Blood Count 3.64L, Hemoglobin 10.2L, Hematocrit 33.4L, Mean Corpuscular Volume 92, Mean Corpuscular Hemoglobin 28.1, Mean Corpuscular Hemoglobin Concent 30.6L, Red Cell Distribution Width 14.4, Platelet Count 331, Mean Platelet Volume 7.4, Neutrophils (%) (Auto) , Lymphocytes (%) (Auto) , Monocytes (%) (Auto) , Eosinophils (%) (Auto) , Basophils (%) (Auto) , Differential Total Cells Counted 100, Neutrophils % (Manual) 85H, Lymphocytes % (Manual) 12L, Monocytes % (Manual) 3, Eosinophils % (Manual) 0, Basophils % (Manual) 0, Band Neutrophils 0, Platelet Estimate Adequate, Platelet Morphology Normal, Hypochromasia 1+, Sodium Level 142, Potassium Level 4.1, Chloride Level 98, Carbon Dioxide Level 41*H, Anion Gap 2L, Blood Urea Nitrogen 47H, Creatinine 1.1, Estimat Glomerular Filtration Rate > 60, Glucose Level 204H, Calcium Level 9.4 Height (Feet): 5 Height (Inches): 1.00 Weight (Pounds): 210 Objective General Appearance: WD/WN, alert, nad. on bipap EENT: PERRL/EOMI, normal ENT inspection Neck: non-tender, normal alignment Cardiovascular: normal peripheral pulses, normal rate, regular rhythm Respiratory/Chest: chest wall non-tender, lungs clear, no respiratory distress, no accessory muscle use. no wheezing. 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 normal, no motor/sensory deficits, alert, oriented x 3, responsive, normal mood/affect Assessment/Plan Problem List: (1) Facial cellulitis ICD Codes: L03.211 - Cellulitis of face SNOMED: 890325675 (2) COPD exacerbation ICD Codes: J44.1 - COPD exacerbation SNOMED: 141280590 (3) Toxic metabolic encephalopathy ICD Codes: G92 - Toxic encephalopathy SNOMED: 109093396 (4) Hypertension, malignant ICD Codes: I10 - Hypertension, malignant SNOMED: 49009092 (5) Diabetes mellitus ICD Codes: E11.9 - Diabetes mellitus SNOMED: 46150325 Status: stable, progressing Assessment/Plan: cont o2 vent support monitor abg monitor cxr cont inhalers resp rx steroids dvt/stress ulcer prophylaxis abx per id d/w famil;y x 10 mins critical and guarded Floyd Downey MD Oct 17, 2020 15:12
--- NOTE | 2020-10-17 20:01 | Psychiatric Progress Note ---
Psychiatry Progress Note Psychiatry Progress Note Subjective intubated on restraints Medications Current Medications Medications (Trade) Dose Ordered Sig/Sera Route PRN Reason Start Time Stop Time Status Last Admin Dose Admin Acetaminophen (Tylenol) 650 mg Q4H PRN ORAL Mild Pain (Pain Scale 1-3) 09/18/20 23:45 10/18/20 23:44 10/15/20 09:25 Anastrozole (Arimidex) 1 mg DAILY ORAL 09/19/20 09:00 10/19/20 08:59 10/17/20 08:04 Ascorbic Acid (Vitamin C) 500 mg TWICE A DAY ORAL 09/30/20 20:00 10/30/20 19:59 10/17/20 17:53 Budesonide/ Formoterol Fumarate (Symbicort 160/ 4.5) 2 puff BIDRT INH 10/02/20 11:00 12/31/20 10:59 10/15/20 10:30 Cefepime HCl 2 gm/ Dextrose 55 ml @ 110 mls/hr Q12H IVPB 10/16/20 18:00 10/23/20 17:59 10/17/20 17:51 Cetylpyridinium Chloride (Cepacol) 1 lozg EVERY 2 HOURS PRN LAURA For Cough 09/25/20 18:15 12/24/20 18:14 09/28/20 21:19 Chlorhexidine Gluconate (Brandee-Hex 2%) 1 applic DAILY@1999 TOPIC 09/30/20 20:00 12/29/20 19:59 10/16/20 20:54 Clonidine HCl (Catapres Tab) 0.1 mg Q4H PRN ORAL SBP > 160 09/19/20 17:15 12/18/20 17:14 09/24/20 03:09 Cyclobenzaprine HCl (Flexeril) 10 mg TIDPRN PRN ORAL Muscle Spasm 10/11/20 00:00 10/18/20 00:00 Dextrose (Dextrose 50%) 25 ml Q30M PRN IV Hypoglycemia 10/02/20 22:00 12/31/20 21:59 Dextrose (Dextrose 50%) 50 ml Q30M PRN IV Hypoglycemia 10/02/20 22:00 12/31/20 21:59 Diltiazem HCl (Cardizem ER) 180 mg BID@0900,2100 ORAL 10/11/20 09:00 11/10/20 08:59 10/17/20 08:05 Docusate Sodium (Colace) 100 mg TWICE A DAY NG 10/16/20 09:00 11/15/20 08:59 10/17/20 17:51 Enoxaparin Sodium (Lovenox) 40 mg Q12HR SUBQ 10/16/20 09:00 01/14/21 08:59 10/17/20 08:06 Fentanyl Citrate 1000 mcg/Sodium Chloride 100 ml @ 0 mls/hr Q24H PRN IV SEDATION 10/16/20 21:30 10/18/20 21:29 10/17/20 16:45 Fluticasone Propionate (Flonase) 1 spray QHS NASAL 09/18/20 21:00 10/18/20 20:59 10/14/20 20:09 Furosemide (Lasix) 40 mg DAILY IV 10/12/20 09:00 11/11/20 08:59 10/17/20 08:04 Guaifenesin/ Codeine Phosphate (Robitussin with codeine) 10 ml Q6H PRN ORAL For Cough 10/12/20 01:45 11/11/20 01:44 10/14/20 16:09 Hydroxyzine HCl (Atarax) 50 mg Q4H PRN ORAL Itching 09/19/20 06:15 10/19/20 06:14 10/12/20 04:48 Insulin Aspart (NovoLOG) EVERY 6 HOURS SUBQ 10/16/20 06:00 01/01/21 06:29 10/17/20 17:52 Insulin Detemir (Levemir) 15 units BEDTIME SUBQ 10/11/20 21:00 12/31/20 21:59 10/16/20 21:17 Insulin Detemir (Levemir) 18 units DAILY SUBQ 10/11/20 09:00 01/09/21 08:59 10/17/20 08:56 Lactobacillus Acidophilus (Culturelle) 1 tab TWICE A DAY ORAL 09/25/20 18:00 12/24/20 17:59 10/17/20 17:51 Lorazepam (Ativan 2mg/ml 1ml) 2 mg Q4H PRN IV For Anxiety 10/15/20 15:15 10/22/20 15:14 10/15/20 15:26 Lorazepam (Ativan) 1 mg Q4H PRN ORAL For Anxiety 10/13/20 09:45 10/20/20 09:44 10/15/20 09:25 Magnesium Hydroxide (Mom) 30 ml DAILYPRN PRN ORAL Constipation 10/03/20 15:15 11/02/20 15:14 10/07/20 11:37 Methylprednisolone Sodium Succinate (Solu-MEDROL) 40 mg EVERY 8 HOURS IVP 10/12/20 09:00 01/10/21 08:59 10/17/20 13:07 Ondansetron HCl (Zofran) 4 mg Q6H PRN IVP Nausea & Vomiting 09/18/20 19:00 10/18/20 18:59 10/15/20 09:25 Pantoprazole (Protonix) 40 mg EVERY 12 HOURS IVP 10/16/20 09:00 11/15/20 08:59 10/17/20 08:04 Propofol 100 ml @ 2.858 mls/ hr Q12H IV 10/17/20 15:30 10/19/20 15:29 10/17/20 16:00 Sertraline HCl (Zoloft) 100 mg DAILY ORAL 09/19/20 09:00 10/19/20 08:59 10/17/20 08:05 Vitamin D (Vitamin D) 1,000 unit DAILY ORAL 09/30/20 20:00 10/30/20 19:59 10/17/20 08:04 Zinc Sulfate (Zinc Sulfate) 220 mg DAILY ORAL 09/30/20 20:00 12/29/20 19:59 10/17/20 08:04 Allergies: Coded Allergies: AMOXICILLIN (Verified Allergy, Mild, RASH HIVES, 09/29/13) ERYTHROMYCIN BASE (Unverified Allergy, Unknown, 10/13/17) IODINE (Verified Allergy, Unknown, 09/29/13) PENICILLINS (Verified Allergy, Unknown, RASH HIVES, 09/29/13) Objective Data Height (Feet): 5 Height (Inches): 1.00 Weight (Pounds): 210 General Appearance: lethargic Additional Comments: Assessment/Plan Casco I: ASSESSMENT: Casco I Major depressive disorder. Anxiety disorder. Casco II borderline Casco III COPD. Casco IV Low. Casco V 50 PLAN: 1. Continue Zoloft. 2. Ativan and Ambien prn 3. The patient would like only melatonin. 4. Provide the patient with reality orientation and supportive therapy. Status: not improved Status Narrative ASSESSMENT: Casco I Major depressive disorder. Anxiety disorder. Casco II borderline Casco III COPD. Casco IV Low. Casco V 50 PLAN: 1. Continue Zoloft. 2. Ativan and Ambien prn 3. The patient would like only melatonin. 4. Provide the patient with reality orientation and supportive therapy. Assessment/Plan: ASSESSMENT: Casco I Major depressive disorder. Anxiety disorder. Casco II borderline Casco III COPD. Casco IV Low. Casco V 50 PLAN: 1. renewed the restraints Jayy Andino MD Oct 17, 2020 20:01
[2020-10-17] MEDS: Dyna-Hex 2% Top Sol 2oz TOPIC SCH (20:31)
[2020-10-17] MEDS: Flonase Nasal Inhaler 16gm NASAL SCH (20:32)
[2020-10-18] VITALS (49 sets, daily range): BP systolic 108–165; BP diastolic 52–98
--- NOTE | 2020-10-18 01:13 | Cardiology Progress Note ---
Subjective DATE OF SERVICE: Oct 17, 2020 Remains on full vent support, with high dose O2 Glucose iremains elevated due to steroids - insulin advanced yesterday Monitor: sinus tachycardia with arrhythmia and PAC's. Objective Last 24 Hour Vital Signs Date Time Temp Pulse Resp B/P (MAP) Pulse Ox O2 Delivery O2 Flow Rate FiO2 10/18/20 00:00 100 10/18/20 00:00 Mechanical Ventilator 10/17/20 23:17 74 26 100 10/17/20 22:00 71 22 110/55 (73) 88 10/17/20 21:00 71 23 109/53 (71) 89 10/17/20 21:00 26 136/62 Mechanical Ventilator 100 10/17/20 21:00 26 136/62 Mechanical Ventilator 100 10/17/20 20:32 70 102/52 10/17/20 20:31 20 102/52 Mechanical Ventilator 100 10/17/20 20:00 100 10/17/20 20:00 25 105/51 Mechanical Ventilator 100 10/17/20 20:00 25 105/51 Mechanical Ventilator 100 10/17/20 20:00 99.4 70 23 107/53 (71) 90 10/17/20 20:00 Mechanical Ventilator 10/17/20 19:45 73 26 100 10/17/20 19:00 22 119/55 Mechanical Ventilator 100 10/17/20 19:00 22 119/55 Mechanical Ventilator 100 10/17/20 19:00 81 21 119/55 (76) 87 10/17/20 18:30 73 22 109/58 (75) 89 10/17/20 18:00 22 98/50 Mechanical Ventilator 100 10/17/20 18:00 22 98/50 Mechanical Ventilator 100 10/17/20 18:00 69 21 98/50 (66) 87 10/17/20 17:30 70 23 109/58 (75) 87 10/17/20 17:00 22 109/53 Mechanical Ventilator 100 10/17/20 17:00 22 109/53 Mechanical Ventilator 100 10/17/20 17:00 74 24 109/53 (71) 88 10/17/20 16:45 22 106/50 Mechanical Ventilator 100 10/17/20 16:30 70 25 109/50 (69) 86 10/17/20 16:30 75 26 109/55 (73) 87 1/5/21 16:00 99.2 72 22 115/54 (74) 89 10/17/20 16:00 74 10/17/20 16:00 22 120/56 Mechanical Ventilator 100 10/17/20 16:00 22 115/54 Mechanical Ventilator 100 10/17/20 16:00 73 23 129/57 (81) 87 10/17/20 16:00 Mechanical Ventilator 10/17/20 16:00 100 10/17/20 15:30 74 21 119/56 (77) 89 10/17/20 15:30 72 22 120/58 (78) 87 10/17/20 15:12 73 23 100 10/17/20 15:00 22 117/55 Mechanical Ventilator 100 10/17/20 15:00 22 117/55 Mechanical Ventilator 100 10/17/20 15:00 73 20 113/59 (77) 89 10/17/20 14:30 73 22 112/55 (74) 89 10/17/20 14:00 72 22 117/57 (77) 90 10/17/20 14:00 22 117/57 Mechanical Ventilator 100 10/17/20 14:00 22 117/57 Mechanical Ventilator 100 10/17/20 13:30 72 22 114/57 (76) 90 10/17/20 13:00 73 20 109/57 (74) 90 10/17/20 13:00 22 106/57 Mechanical Ventilator 100 10/17/20 13:00 22 106/57 Mechanical Ventilator 100 10/17/20 12:30 74 19 106/53 (70) 89 10/17/20 12:00 100 10/17/20 12:00 73 10/17/20 12:00 22 120/53 Mechanical Ventilator 100 10/17/20 12:00 22 120/53 Mechanical Ventilator 100 10/17/20 12:00 Mechanical Ventilator 10/17/20 12:00 98.9 74 21 120/53 (75) 89 10/17/20 11:30 73 23 105/55 (72) 88 10/17/20 11:25 22 120/53 Mechanical Ventilator 100 10/17/20 11:09 81 27 100 10/17/20 11:00 76 19 114/56 (75) 89 10/17/20 11:00 22 114/56 Mechanical Ventilator 100 10/17/20 11:00 22 114/56 Mechanical Ventilator 100 1/5/21 10:30 77 21 111/52 (71) 90 10/17/20 10:00 78 21 114/56 (75) 90 10/17/20 10:00 22 114/56 Mechanical Ventilator 100 10/17/20 10:00 22 114/56 Mechanical Ventilator 22 10/17/20 09:30 76 21 112/56 (74) 88 10/17/20 09:00 81 25 142/67 (92) 84 10/17/20 09:00 22 115/55 Mechanical Ventilator 100 10/17/20 09:00 22 115/55 Mechanical Ventilator 100 10/17/20 08:30 77 19 106/56 (73) 91 10/17/20 08:05 78 116/58 10/17/20 08:00 98.9 75 21 116/58 (77) 91 10/17/20 08:00 22 111/54 Mechanical Ventilator 100 10/17/20 08:00 22 111/54 Mechanical Ventilator 100 10/17/20 08:00 Mechanical Ventilator 10/17/20 08:00 100 10/17/20 08:00 77 10/17/20 07:30 77 18 119/56 (77) 92 10/17/20 07:08 73 25 100 10/17/20 07:00 75 20 119/60 (79) 90 10/17/20 07:00 20 119/60 Mechanical Ventilator 100 10/17/20 07:00 20 119/60 Mechanical Ventilator 100 10/17/20 06:00 79 21 126/59 (81) 91 10/17/20 06:00 21 126/59 100 10/17/20 06:00 21 126/59 Mechanical Ventilator 100 10/17/20 05:30 21 115/61 Mechanical Ventilator 100 10/17/20 05:00 78 19 132/69 (90) 92 10/17/20 05:00 19 132/69 Mechanical Ventilator 100 10/17/20 05:00 19 132/69 Mechanical Ventilator 100 10/17/20 04:00 97 10/17/20 04:00 24 126/61 Mechanical Ventilator 100 10/17/20 04:00 24 126/61 Mechanical Ventilator 100 10/17/20 04:00 Mechanical Ventilator 10/17/20 04:00 100 10/17/20 04:00 98.5 83 24 126/61 (82) 89 10/17/20 03:09 75 27 100 10/17/20 03:00 21 108/57 Mechanical Ventilator 100 10/17/20 03:00 21 108/57 Mechanical Ventilator 100 10/17/20 03:00 77 21 108/57 (74) 92 10/17/20 02:00 22 107/55 Mechanical Ventilator 100 10/17/20 02:00 22 107/55 Mechanical Ventilator 100 10/17/20 02:00 79 22 107/55 (72) 92 ROS: unchanged from 09/18/20 HEENT: Orally intubated, Mechanically Ventilated RHYTHM: NSR, ST, PACs LUNGS: bilateral rhonchi, coarse breath sounds CARDIAC: normal rate, regular rhythm, normal S1 and S2, gallop/S4 ABDOMEN: normal bowel sounds, non tender, soft, no organomegaly, other - obese EXTREMITIES: +1 edema Laboratory Tests Test 10/17/20 05:00 10/17/20 09:05 10/17/20 20:34 POC Whole Blood Glucose Pending Pending White Blood Count 17.1 K/UL (4.8-10.8) H Red Blood Count 3.64 M/UL (4.20-5.40) L Hemoglobin 10.2 G/DL (12.0-16.0) L Hematocrit 33.4 % (37.0-47.0) L Mean Corpuscular Volume 92 FL (80-99) Mean Corpuscular Hemoglobin 28.1 PG (27.0-31.0) Mean Corpuscular Hemoglobin Concent 30.6 G/DL (32.0-36.0) L Red Cell Distribution Width 14.4 % (11.6-14.8) Platelet Count 331 K/UL (150-450) Mean Platelet Volume 7.4 FL (6.5-10.1) Neutrophils (%) (Auto) % (45.0-75.0) Lymphocytes (%) (Auto) % (20.0-45.0) Monocytes (%) (Auto) % (1.0-10.0) Eosinophils (%) (Auto) % (0.0-3.0) Basophils (%) (Auto) % (0.0-2.0) Differential Total Cells Counted 100 Neutrophils % (Manual) 85 % (45-75) H Lymphocytes % (Manual) 12 % (20-45) L Monocytes % (Manual) 3 % (1-10) Eosinophils % (Manual) 0 % (0-3) Basophils % (Manual) 0 % (0-2) Band Neutrophils 0 % (0-8) Platelet Estimate Adequate Platelet Morphology Normal Hypochromasia 1+ Sodium Level 142 MMOL/L (136-145) Potassium Level 4.1 MMOL/L (3.5-5.1) Chloride Level 98 MMOL/L (98-107) Carbon Dioxide Level 41 MMOL/L (21-32) *H Anion Gap 2 mmol/L (5-15) L Blood Urea Nitrogen 47 mg/dL (7-18) H Creatinine 1.1 MG/DL (0.55-1.30) Estimat Glomerular Filtration Rate > 60 mL/min (>60) Glucose Level 204 MG/DL (74-106) H Calcium Level 9.4 MG/DL (8.5-10.1) Assessment/Plan Assessment/Plan COVID19 pneumonia Acute respiratory failure COPD exacerbation Hypoxia Paroxysmal atrial ectopy Sinus tachyarrhythmias Acute bronchitis worsening. Ac/chr diastolic CHF with decreasing BNP now - clinically compensated. Hx breast CA Paroxysmal atrial ectopy Hypertensive heart disease Sinus tachycardia improved UTI - K.pn (multi-drug resistant) IRDM uncontrolled on steroids Constipation Myalgias REMAINS CRITICAL AND GUARDED Vent support - wean O2 Continue IV steroids Anti-viral rx per ID - remdesivir completed Anti-coagulation Diuresis based on clinical parameters; trend BNP as needed. Titrate antiHTN regimen as needed - will continue diltiazem for atrial arrhythmia management. Insulin coverage with ongoing levemir titration - see orders Bowel regimen Werner Martinez MD Oct 18, 2020 01:13
--- NOTE | 2020-10-18 02:08 | Cardiology Report ---
APPROVED REPORT EKG Measurement Heart [id number] <Conclusion> Normal sinus rhythm Normal ECG
--- NOTE | 2020-10-18 02:15 | Cardiology Report ---
APPROVED REPORT EKG Measurement Heart [id number] <Conclusion> Normal sinus rhythm Nonspecific T wave abnormality Abnormal ECG
[2020-10-18] MEDS: propofoL 1,000mg/100ml 100 ML IV SCH ×2 (02:16→07:42)
[2020-10-18] MEDS: Solu-MEDROL 40mg Inj IVP SCH ×3 (05:09→21:12)
[2020-10-18] MEDS: Cefepime HCl 2 GM in D5W 55 ML IVPB SCH ×2 (05:09→17:26)
[2020-10-18] MEDS: NovoLOG Insulin Flexpen SUBQ SCH ×3 (05:20→18:19)
[2020-10-18 05:38] LABS: HEMATOCRIT 31.2 % (37.0-47.0); HEMOGLOBIN 9.6 G/DL (12.0-16.0); MEAN CORPUSCULAR VOLUME 92 FL (80-99); PLATELET COUNT 329 K/UL (150-450); RED BLOOD COUNT 3.38 M/UL (4.20-5.40); RED CELL DISTRIBUTION WIDTH 15.1 % (11.6-14.8); WHITE BLOOD COUNT 14.9 K/UL (4.8-10.8)
[2020-10-18 06:03] LABS: ANION GAP -2 mmol/L (5-15); BLOOD UREA NITROGEN 49 mg/dL (7-18); CHLORIDE 104 MMOL/L (98-107); POTASSIUM 4.4 MMOL/L (3.5-5.1); SODIUM 145 MMOL/L (136-145); TRIGLYCERIDES 223 MG/DL (30-150)
[2020-10-18 06:07] LABS: CARBON DIOXIDE 44 MMOL/L (21-32)
[2020-10-18] MEDS: Docusate 100mg/10ml Liq NG SCH ×2 (08:54→17:26)
[2020-10-18] MEDS: Sertraline 100mg tab ORAL SCH (08:54)
[2020-10-18] MEDS: Pantoprazole Inj IVP SCH ×2 (08:54→20:10)
[2020-10-18] MEDS: Anastrazole 1mg tab ORAL SCH (08:55)
[2020-10-18] MEDS: Vitamin D 1000 units Tab ORAL SCH (08:55)
[2020-10-18] MEDS: Zinc Sulfate 220mg ORAL SCH (08:55)
[2020-10-18] MEDS: dilTIAZem HCl ER 180mg cap ORAL SCH ×2 (08:55→20:10)
[2020-10-18] MEDS: Ascorbic Acid 500mg tab ORAL SCH ×2 (08:55→17:26)
[2020-10-18] MEDS: Lactobacillus-GG tablet ORAL SCH ×2 (08:55→17:26)
[2020-10-18] MEDS: Enoxaparin 80mg Inj SUBQ SCH ×2 (08:56→20:10)
[2020-10-18] MEDS: Levemir Flexpen SUBQ SCH ×2 (08:58→20:11)
--- NOTE | 2020-10-18 09:29 | General Progress Note ---
Subjective ROS Limited/Unobtainable: Yes Constitutional: Reports: malaise, weakness HEENT: Reports: no symptoms Cardiovascular: Reports: no symptoms Respiratory: Reports: no symptoms Gastrointestinal/Abdominal: Reports: difficulty swallowing Genitourinary: Reports: no symptoms Neurologic/Psychiatric: Reports: no symptoms Endocrine: Reports: no symptoms Hematologic/Lymphatic: Reports: no symptoms Allergies: Coded Allergies: AMOXICILLIN (Verified Allergy, Mild, RASH HIVES, 09/29/13) ERYTHROMYCIN BASE (Unverified Allergy, Unknown, 10/13/17) IODINE (Verified Allergy, Unknown, 09/29/13) PENICILLINS (Verified Allergy, Unknown, RASH HIVES, 09/29/13) All Systems: reviewed and negative except above Subjective sedated. on the vent. no fevers. sats low 90s. on ngt feeds. cxr unchanged. BS stable. Objective Last 24 Hour Vital Signs Date Time Temp Pulse Resp B/P (MAP) Pulse Ox O2 Delivery O2 Flow Rate FiO2 10/18/20 08:00 94 20 146/70 (95) 93 10/18/20 08:00 100 10/18/20 07:42 22 128/66 Mechanical Ventilator 100 10/18/20 07:00 89 22 140/71 (94) 93 10/18/20 07:00 20 140/71 Mechanical Ventilator 100 10/18/20 07:00 20 140/71 Mechanical Ventilator 100 10/18/20 06:00 88 20 122/66 (84) 93 10/18/20 06:00 22 124/68 Mechanical Ventilator 100 10/18/20 06:00 22 124/68 Mechanical Ventilator 100 10/18/20 05:00 22 121/64 Mechanical Ventilator 100 10/18/20 05:00 22 121/64 Mechanical Ventilator 100 10/18/20 05:00 84 22 125/70 (88) 92 10/18/20 04:00 99.7 82 21 128/63 (84) 92 10/18/20 04:00 Mechanical Ventilator 10/18/20 04:00 22 123/68 Mechanical Ventilator 100 10/18/20 04:00 22 123/68 Mechanical Ventilator 100 10/18/20 04:00 100 10/18/20 03:47 81 10/18/20 03:37 82 23 100 10/18/20 03:00 80 22 116/65 (82) 91 10/18/20 03:00 22 130/65 Mechanical Ventilator 100 10/18/20 03:00 22 130/65 Mechanical Ventilator 100 10/18/20 02:16 22 104/55 Mechanical Ventilator 100 10/18/20 02:00 78 22 117/59 (78) 89 10/18/20 02:00 22 117/59 Mechanical Ventilator 100 10/18/20 02:00 22 117/59 Mechanical Ventilator 100 10/18/20 01:00 21 114/55 Mechanical Ventilator 100 10/18/20 01:00 21 114/55 Mechanical Ventilator 100 10/18/20 01:00 78 21 109/52 (71) 90 10/18/20 00:00 99.1 72 22 113/54 (73) 88 10/18/20 00:00 100 10/18/20 00:00 22 113/56 Mechanical Ventilator 100 10/18/20 00:00 22 113/56 Mechanical Ventilator 100 10/18/20 00:00 Mechanical Ventilator 10/17/20 23:35 74 10/17/20 23:30 74 22 113/50 (71) 89 10/17/20 23:17 74 26 100 10/17/20 23:15 72 21 111/59 (76) 88 10/17/20 23:00 22 111/59 Mechanical Ventilator 100 10/17/20 23:00 22 111/59 Mechanical Ventilator 100 10/17/20 23:00 84 20 119/58 (78) 86 10/17/20 22:00 71 22 110/55 (73) 88 10/17/20 22:00 22 105/53 Mechanical Ventilator 100 10/17/20 22:00 22 105/53 Mechanical Ventilator 100 10/17/20 21:00 71 23 109/53 (71) 89 10/17/20 21:00 26 136/62 Mechanical Ventilator 100 10/17/20 21:00 26 136/62 Mechanical Ventilator 100 10/17/20 20:32 70 102/52 10/17/20 20:31 20 102/52 Mechanical Ventilator 100 10/17/20 20:00 100 10/17/20 20:00 25 105/51 Mechanical Ventilator 100 10/17/20 20:00 25 105/51 Mechanical Ventilator 100 10/17/20 20:00 99.4 70 23 107/53 (71) 90 10/17/20 20:00 Mechanical Ventilator 10/17/20 19:45 73 26 100 1/5/21 19:42 71 10/17/20 19:00 22 119/55 Mechanical Ventilator 100 10/17/20 19:00 22 119/55 Mechanical Ventilator 100 10/17/20 19:00 81 21 119/55 (76) 87 10/17/20 18:30 73 22 109/58 (75) 89 10/17/20 18:00 22 98/50 Mechanical Ventilator 100 10/17/20 18:00 22 98/50 Mechanical Ventilator 100 10/17/20 18:00 69 21 98/50 (66) 87 10/17/20 17:30 70 23 109/58 (75) 87 10/17/20 17:00 22 109/53 Mechanical Ventilator 100 10/17/20 17:00 22 109/53 Mechanical Ventilator 100 10/17/20 17:00 74 24 109/53 (71) 88 10/17/20 16:45 22 106/50 Mechanical Ventilator 100 10/17/20 16:30 70 25 109/50 (69) 86 10/17/20 16:30 75 26 109/55 (73) 87 10/17/20 16:00 99.2 72 22 115/54 (74) 89 10/17/20 16:00 74 10/17/20 16:00 22 120/56 Mechanical Ventilator 100 10/17/20 16:00 22 115/54 Mechanical Ventilator 100 10/17/20 16:00 73 23 129/57 (81) 87 10/17/20 16:00 Mechanical Ventilator 10/17/20 16:00 100 10/17/20 15:30 74 21 119/56 (77) 89 10/17/20 15:30 72 22 120/58 (78) 87 10/17/20 15:12 73 23 100 10/17/20 15:00 22 117/55 Mechanical Ventilator 100 10/17/20 15:00 22 117/55 Mechanical Ventilator 100 10/17/20 15:00 73 20 113/59 (77) 89 10/17/20 14:30 73 22 112/55 (74) 89 10/17/20 14:00 72 22 117/57 (77) 90 10/17/20 14:00 22 117/57 Mechanical Ventilator 100 10/17/20 14:00 22 117/57 Mechanical Ventilator 100 10/17/20 13:30 72 22 114/57 (76) 90 10/17/20 13:00 73 20 109/57 (74) 90 10/17/20 13:00 22 106/57 Mechanical Ventilator 100 10/17/20 13:00 22 106/57 Mechanical Ventilator 100 10/17/20 12:30 74 19 106/53 (70) 89 10/17/20 12:00 100 10/17/20 12:00 73 10/17/20 12:00 22 120/53 Mechanical Ventilator 100 10/17/20 12:00 22 120/53 Mechanical Ventilator 100 10/17/20 12:00 Mechanical Ventilator 10/17/20 12:00 98.9 74 21 120/53 (75) 89 10/17/20 11:30 73 23 105/55 (72) 88 10/17/20 11:25 22 120/53 Mechanical Ventilator 100 10/17/20 11:09 81 27 100 10/17/20 11:00 76 19 114/56 (75) 89 10/17/20 11:00 22 114/56 Mechanical Ventilator 100 10/17/20 11:00 22 114/56 Mechanical Ventilator 100 10/17/20 10:30 77 21 111/52 (71) 90 10/17/20 10:00 78 21 114/56 (75) 90 10/17/20 10:00 22 114/56 Mechanical Ventilator 100 10/17/20 10:00 22 114/56 Mechanical Ventilator 22 10/17/20 09:30 76 21 112/56 (74) 88 Intake and Output 10/17/20 10/18/20 19:00 07:00 Intake Total 1012.710 ml 672.106 ml Output Total 1300 ml 540 ml Balance -287.290 ml 132.106 ml IV Total 292.710 ml 312.106 ml Tube Feeding 360 ml 360 ml Other 360 ml Output Urine Total 1300 ml 540 ml Laboratory Tests 10/17/20 20:34: POC Whole Blood Glucose [Pending] 10/18/20 04:00: White Blood Count 14.9H, Red Blood Count 3.38L, Hemoglobin 9.6L, Hematocrit 31.2L, Mean Corpuscular Volume 92, Mean Corpuscular Hemoglobin 28.5, Mean Corpuscular Hemoglobin Concent 30.9L, Red Cell Distribution Width 15.1H, Platelet Count 329, Mean Platelet Volume 8.5, Neutrophils (%) (Auto) , L ymphocytes (%) (Auto) , Monocytes (%) (Auto) , Eosinophils (%) (Auto) , Basophils (%) (Auto) , Sodium Level 145, Potassium Level 4.4, Chloride Level 104, Carbon Dioxide Level 44*H, Anion Gap -2L, Blood Urea Nitrogen 49H, Creatinine 1.0, Estimat Glomerular Filtration Rate > 60, Glucose Level 178H, Ca lcium Level 9.0, Triglycerides Level 223H 10/18/20 05:20: POC Whole Blood Glucose [Pending] Height (Feet): 5 Height (Inches): 1.00 Weight (Pounds): 210 Objective General Appearance: WD/WN, alert, nad. on bipap EENT: PERRL/EOMI, normal ENT inspection Neck: non-tender, normal alignment Cardiovascular: normal peripheral pulses, normal rate, regular rhythm Respiratory/Chest: chest wall non-tender, lungs clear, no respiratory distress, no accessory muscle use. no wheezing. 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 grossly normal, no motor/sensory deficits, alert, oriented x 3, responsive, normal mood/affect Assessment/Plan Problem List: (1) Facial cellulitis ICD Codes: L03.211 - Cellulitis of face SNOMED: 287430535 (2) COPD exacerbation ICD Codes: J44.1 - COPD exacerbation SNOMED: 965091192 (3) Toxic metabolic encephalopathy ICD Codes: G92 - Toxic encephalopathy SNOMED: 663738830 (4) Hypertension, malignant ICD Codes: I10 - Hypertension, malignant SNOMED: 90534700 (5) Diabetes mellitus ICD Codes: E11.9 - Diabetes mellitus SNOMED: 51547002 Status: stable, progressing, not improved Assessment/Plan: cont o2 vent support monitor abg monitor cxr cont inhalers resp rx steroids dvt/stress ulcer prophylaxis abx per id d/w family critical and guarded Floyd Downey MD Oct 18, 2020 09:29
[2020-10-18] MEDS ORDERED: Rocuronium Bromide 50mg/5ml Inj IV ONE (12:30)
[2020-10-18] MEDS ORDERED: Succinylcholine 20mg/ml 10ml vial ONE (12:30)
[2020-10-18] MEDS: Midazolam HCl 50mg/10ml vial 50 MG in NS 90 ML IV PRN (15:20)
--- NOTE | 2020-10-18 15:52 | Pulmonology Progress Note ---
Subjective ROS Limited/Unobtainable: Yes Musculoskeletal: Denies: pain Allergies: Coded Allergies: AMOXICILLIN (Verified Allergy, Mild, RASH HIVES, 09/29/13) ERYTHROMYCIN BASE (Unverified Allergy, Unknown, 10/13/17) IODINE (Verified Allergy, Unknown, 09/29/13) PENICILLINS (Verified Allergy, Unknown, RASH HIVES, 09/29/13) All Systems: reviewed and negative except above Subjective remains intubated on vent and poor oxygen saturation noted + COVID sedated for now on PEEP Objective Last 24 Hour Vital Signs Date Time Temp Pulse Resp B/P (MAP) Pulse Ox O2 Delivery O2 Flow Rate FiO2 10/18/20 15:20 23 Nasal Cannula 10/18/20 13:41 94 24 100 10/18/20 13:15 91 21 124/62 (82) 95 10/18/20 13:00 90 21 113/67 (82) 95 10/18/20 12:30 89 20 112/63 (79) 95 10/18/20 12:15 93 21 120/63 (82) 94 10/18/20 12:00 99.9 91 21 125/64 (84) 94 10/18/20 12:00 94 10/18/20 12:00 100 10/18/20 11:45 94 22 120/61 (80) 93 10/18/20 11:30 96 20 123/61 (81) 94 10/18/20 11:15 94 23 132/65 (87) 93 10/18/20 11:00 95 23 129/70 (89) 94 10/18/20 10:45 94 22 121/67 (85) 93 10/18/20 10:30 95 22 125/62 (83) 92 10/18/20 10:15 102 22 147/69 (95) 92 10/18/20 10:00 99 24 140/68 (92) 91 10/18/20 09:59 25 136/70 Mechanical Ventilator 10/18/20 09:30 92 22 141/68 (92) 92 10/18/20 09:15 94 22 127/63 (84) 92 10/18/20 09:00 99.8 91 22 108/60 (76) 10/18/20 09:00 Mechanical Ventilator 10/18/20 08:00 93 10/18/20 08:00 94 20 146/70 (95) 93 10/18/20 08:00 100 10/18/20 07:42 22 128/66 Mechanical Ventilator 100 10/18/20 07:39 101 27 100 10/18/20 07:00 89 22 140/71 (94) 93 10/18/20 07:00 20 140/71 Mechanical Ventilator 100 10/18/20 07:00 20 140/71 Mechanical Ventilator 100 10/18/20 06:00 88 20 122/66 (84) 93 10/18/20 06:00 22 124/68 Mechanical Ventilator 100 10/18/20 06:00 22 124/68 Mechanical Ventilator 100 10/18/20 05:00 22 121/64 Mechanical Ventilator 100 10/18/20 05:00 22 121/64 Mechanical Ventilator 100 10/18/20 05:00 84 22 125/70 (88) 92 10/18/20 04:00 99.7 82 21 128/63 (84) 92 10/18/20 04:00 Mechanical Ventilator 10/18/20 04:00 22 123/68 Mechanical Ventilator 100 10/18/20 04:00 22 123/68 Mechanical Ventilator 100 10/18/20 04:00 100 10/18/20 03:47 81 10/18/20 03:37 82 23 100 10/18/20 03:00 80 22 116/65 (82) 91 10/18/20 03:00 22 130/65 Mechanical Ventilator 100 10/18/20 03:00 22 130/65 Mechanical Ventilator 100 10/18/20 02:16 22 104/55 Mechanical Ventilator 100 10/18/20 02:00 78 22 117/59 (78) 89 10/18/20 02:00 22 117/59 Mechanical Ventilator 100 10/18/20 02:00 22 117/59 Mechanical Ventilator 100 10/18/20 01:00 21 114/55 Mechanical Ventilator 100 10/18/20 01:00 21 114/55 Mechanical Ventilator 100 10/18/20 01:00 78 21 109/52 (71) 90 10/18/20 00:00 99.1 72 22 113/54 (73) 88 10/18/20 00:00 100 10/18/20 00:00 22 113/56 Mechanical Ventilator 100 10/18/20 00:00 22 113/56 Mechanical Ventilator 100 10/18/20 00:00 Mechanical Ventilator 10/17/20 23:35 74 10/17/20 23:30 74 22 113/50 (71) 89 10/17/20 23:17 74 26 100 10/17/20 23:15 72 21 111/59 (76) 88 10/17/20 23:00 22 111/59 Mechanical Ventilator 100 10/17/20 23:00 22 111/59 Mechanical Ventilator 100 10/17/20 23:00 84 20 119/58 (78) 86 10/17/20 22:00 71 22 110/55 (73) 88 10/17/20 22:00 22 105/53 Mechanical Ventilator 100 10/17/20 22:00 22 105/53 Mechanical Ventilator 100 10/17/20 21:00 71 23 109/53 (71) 89 10/17/20 21:00 26 136/62 Mechanical Ventilator 100 10/17/20 21:00 26 136/62 Mechanical Ventilator 100 10/17/20 20:32 70 102/52 10/17/20 20:31 20 102/52 Mechanical Ventilator 100 10/17/20 20:00 100 10/17/20 20:00 25 105/51 Mechanical Ventilator 100 10/17/20 20:00 25 105/51 Mechanical Ventilator 100 10/17/20 20:00 99.4 70 23 107/53 (71) 90 10/17/20 20:00 Mechanical Ventilator 10/17/20 19:45 73 26 100 10/17/20 19:42 71 10/17/20 19:00 22 119/55 Mechanical Ventilator 100 10/17/20 19:00 22 119/55 Mechanical Ventilator 100 10/17/20 19:00 81 21 119/55 (76) 87 10/17/20 18:30 73 22 109/58 (75) 89 10/17/20 18:00 22 98/50 Mechanical Ventilator 100 10/17/20 18:00 22 98/50 Mechanical Ventilator 100 10/17/20 18:00 69 21 98/50 (66) 87 10/17/20 17:30 70 23 109/58 (75) 87 10/17/20 17:00 22 109/53 Mechanical Ventilator 100 10/17/20 17:00 22 109/53 Mechanical Ventilator 100 10/17/20 17:00 74 24 109/53 (71) 88 10/17/20 16:45 22 106/50 Mechanical Ventilator 100 10/17/20 16:30 70 25 109/50 (69) 86 10/17/20 16:30 75 26 109/55 (73) 87 10/17/20 16:00 99.2 72 22 115/54 (74) 89 10/17/20 16:00 74 10/17/20 16:00 22 120/56 Mechanical Ventilator 100 10/17/20 16:00 22 115/54 Mechanical Ventilator 100 10/17/20 16:00 73 23 129/57 (81) 87 10/17/20 16:00 Mechanical Ventilator 10/17/20 16:00 100 Intake and Output 10/17/20 10/18/20 19:00 07:00 Intake Total 1012.710 ml 672.106 ml Output Total 1300 ml 540 ml Balance -287.290 ml 132.106 ml IV Total 292.710 ml 312.106 ml Tube Feeding 360 ml 360 ml Other 360 ml Output Urine Total 1300 ml 540 ml Objective deferred due to COVID Laboratory Tests 10/17/20 20:34: POC Whole Blood Glucose [Pending] 10/18/20 04:00: White Blood Count 14.9H, Red Blood Count 3.38L, Hemoglobin 9.6L, Hematocrit 31.2L, Mean Corpuscular Volume 92, Mean Corpuscular Hemoglobin 28.5, Mean Corpus cular Hemoglobin Concent 30.9L, Red Cell Distribution Width 15.1H, Platelet Count 329, Mean Platelet Volume 8.5, Neutrophils (%) (Auto) , Lymphocytes (%) (Auto) , Monocytes (%) (Auto) , Eosinophils (%) (Auto) , Basophils (%) (Auto) , Sodium Level 145, Potassium Level 4.4, Chloride Level 104, Carbon Dioxide Level 44*H, Anion Gap -2L, Blood Urea Nitrogen 49H, Creatinine 1.0, Estimat Glomerular Filtration Rate > 60, Glucose Level 178H, Calcium Level 9.0, Triglycerides Level 223H 10/18/20 05:20: POC Whole Blood Glucose [Pending] 10/18/20 12:11: POC Whole Blood Glucose 242H Current Medications Medications (Trade) Dose Ordered Sig/Sera Route PRN Reason Start Time Stop Time Status Last Admin Dose Admin Acetaminophen (Tylenol) 650 mg Q4H PRN ORAL Mild Pain (Pain Scale 1-3) 09/18/20 23:45 10/18/20 23:44 10/18/20 15:21 Anastrozole (Arimidex) 1 mg DAILY ORAL 09/19/20 09:00 10/19/20 08:59 10/18/20 08:55 Ascorbic Acid (Vitamin C) 500 mg TWICE A DAY ORAL 09/30/20 20:00 10/30/20 19:59 10/18/20 08:55 Budesonide/ Formoterol Fumarate (Symbicort 160/ 4.5) 2 puff BIDRT INH 10/02/20 11:00 12/31/20 10:59 10/15/20 10:30 Cefepime HCl 2 gm/ Dextrose 55 ml @ 110 mls/hr Q12H IVPB 10/16/20 18:00 10/23/20 17:59 10/18/20 05:09 Cetylpyridinium Chloride (Cepacol) 1 lozg EVERY 2 HOURS PRN LAURA For Cough 09/25/20 18:15 12/24/20 18:14 09/28/20 21:19 Chlorhexidine Gluconate (Brandee-Hex 2%) 1 applic DAILY@1999 TOPIC 09/30/20 20:00 12/29/20 19:59 10/17/20 20:31 Clonidine HCl (Catapres Tab) 0.1 mg Q4H PRN ORAL SBP > 160 09/19/20 17:15 12/18/20 17:14 09/24/20 03:09 Dextrose (Dextrose 50%) 25 ml Q30M PRN IV Hypoglycemia 10/02/20 22:00 12/31/20 21:59 Dextrose (Dextrose 50%) 50 ml Q30M PRN IV Hypoglycemia 10/02/20 22:00 12/31/20 21:59 Diltiazem HCl (Cardizem ER) 180 mg BID@0900,2100 ORAL 10/11/20 09:00 11/10/20 08:59 10/17/20 08:05 Docusate Sodium (Colace) 100 mg TWICE A DAY NG 10/16/20 09:00 11/15/20 08:59 10/18/20 08:54 Enoxaparin Sodium (Lovenox) 40 mg Q12HR SUBQ 10/16/20 09:00 01/14/21 08:59 10/18/20 08:56 Fentanyl Citrate 1000 mcg/Sodium Chloride 100 ml @ 0 mls/hr Q24H PRN IV SEDATION 10/16/20 21:30 10/18/20 21:29 10/18/20 09:59 Fluticasone Propionate (Flonase) 1 spray QHS NASAL 09/18/20 21:00 10/18/20 20:59 10/17/20 20:32 Furosemide (Lasix) 40 mg DAILY IV 10/12/20 09:00 11/11/20 08:59 10/18/20 08:54 Guaifenesin/ Codeine Phosphate (Robitussin with codeine) 10 ml Q6H PRN ORAL For Cough 10/12/20 01:45 11/11/20 01:44 10/14/20 16:09 Hydroxyzine HCl (Atarax) 50 mg Q4H PRN ORAL Itching 09/19/20 06:15 10/19/20 06:14 10/12/20 04:48 Insulin Aspart (NovoLOG) EVERY 6 HOURS SUBQ 10/16/20 06:00 01/01/21 06:29 10/18/20 12:23 Insulin Detemir (Levemir) 15 units BEDTIME SUBQ 10/11/20 21:00 12/31/20 21:59 10/17/20 21:03 Insulin Detemir (Levemir) 18 units DAILY SUBQ 10/11/20 09:00 01/09/21 08:59 10/18/20 08:58 Lactobacillus Acidophilus (Culturelle) 1 tab TWICE A DAY ORAL 09/25/20 18:00 12/24/20 17:59 10/18/20 08:55 Lorazepam (Ativan 2mg/ml 1ml) 2 mg Q4H PRN IV For Anxiety 10/15/20 15:15 10/22/20 15:14 10/15/20 15:26 Lorazepam (Ativan) 1 mg Q4H PRN ORAL For Anxiety 10/13/20 09:45 10/20/20 09:44 10/15/20 09:25 Magnesium Hydroxide (Mom) 30 ml DAILYPRN PRN ORAL Constipation 10/03/20 15:15 11/02/20 15:14 10/07/20 11:37 Methylprednisolone Sodium Succinate (Solu-MEDROL) 40 mg EVERY 8 HOURS IVP 10/12/20 09:00 01/10/21 08:59 10/18/20 13:58 Midazolam HCl 50 mg/Sodium Chloride 100 ml @ 0 mls/hr Q24H PRN IV To Patient Comfort 10/18/20 14:00 10/20/20 13:50 10/18/20 15:20 Ondansetron HCl (Zofran) 4 mg Q6H PRN IVP Nausea & Vomiting 09/18/20 19:00 10/18/20 18:59 10/15/20 09:25 Pantoprazole (Protonix) 40 mg EVERY 12 HOURS IVP 10/16/20 09:00 11/15/20 08:59 10/18/20 08:54 Sertraline HCl (Zoloft) 100 mg DAILY ORAL 09/19/20 09:00 10/19/20 08:59 10/18/20 08:54 Vitamin D (Vitamin D) 1,000 unit DAILY ORAL 09/30/20 20:00 10/30/20 19:59 10/18/20 08:55 Zinc Sulfate (Zinc Sulfate) 220 mg DAILY ORAL 09/30/20 20:00 12/29/20 19:59 10/18/20 08:55 Assessment/Plan Assessment/Plan ASSESSMENT: acute on Chronic respiratory failure COPD exacerbation and facial cellulitis. diabetes, hypertension, chronic hypoxemia chronic debility, pulmonary congestion, COVID+ PLAN: on vent as is PEEP as is 100% steroids home meds supportive care oxygen therapy prognosis guarded IV antibiotics nutrition off load as able monitor for secondary infection medications/laboratory data/nursing notes/ICU care reviewed in detail note reviewed and edited care discussed with RN and RT ICU time spent >40 minutes Froilan Caruso MD Oct 18, 2020 15:52
--- NOTE | 2020-10-18 16:55 | Infectious Diseases Prog Note ---
Assessment/Plan Assessment/Plan antibiotics : cefepime A 1. Klebsiella urinary tract infection s/p rx 2. Facial cellulitis improving 3. COPD exacerbation. 4. diabetes mellitus 5. hypertension 6. CHF 7. breast cancer 8. COVID 19 pneumonia on 100 % Fi O2, saturation 94 % s/p remdesivir, dexamethasone P 1. continue solumedrol 2. continue cefepime 3. will follow up cultures Subjective ROS Limited/Unobtainable: Yes Allergies: Coded Allergies: AMOXICILLIN (Verified Allergy, Mild, RASH HIVES, 09/29/13) ERYTHROMYCIN BASE (Unverified Allergy, Unknown, 10/13/17) IODINE (Verified Allergy, Unknown, 09/29/13) PENICILLINS (Verified Allergy, Unknown, RASH HIVES, 09/29/13) Objective Last 24 Hour Vital Signs Date Time Temp Pulse Resp B/P (MAP) Pulse Ox O2 Delivery O2 Flow Rate FiO2 10/18/20 16:43 22 153/78 Mechanical Ventilator 10/18/20 16:15 92 23 138/78 (98) 94 10/18/20 16:00 100 10/18/20 16:00 98.9 91 22 150/76 (100) 94 10/18/20 16:00 94 10/18/20 15:45 91 22 150/74 (99) 95 10/18/20 15:30 91 20 117/68 (84) 93 10/18/20 15:20 23 Nasal Cannula 10/18/20 15:15 91 21 151/74 (99) 94 10/18/20 15:00 91 21 125/70 (88) 95 10/18/20 14:45 91 23 127/66 (86) 95 10/18/20 14:30 93 21 127/69 (88) 95 10/18/20 14:15 93 20 130/65 (86) 95 10/18/20 14:00 93 22 141/68 (92) 95 10/18/20 13:41 94 24 100 10/18/20 13:15 91 21 124/62 (82) 95 10/18/20 13:00 90 21 113/67 (82) 95 10/18/20 12:30 89 20 112/63 (79) 95 10/18/20 12:15 93 21 120/63 (82) 94 10/18/20 12:00 99.9 91 21 125/64 (84) 94 10/18/20 12:00 94 10/18/20 12:00 100 10/18/20 11:45 94 22 120/61 (80) 93 10/18/20 11:30 96 20 123/61 (81) 94 10/18/20 11:15 94 23 132/65 (87) 93 10/18/20 11:00 95 23 129/70 (89) 94 10/18/20 10:45 94 22 121/67 (85) 93 10/18/20 10:30 95 22 125/62 (83) 92 10/18/20 10:15 102 22 147/69 (95) 92 10/18/20 10:00 99 24 140/68 (92) 91 10/18/20 09:59 25 136/70 Mechanical Ventilator 10/18/20 09:30 92 22 141/68 (92) 92 10/18/20 09:15 94 22 127/63 (84) 92 10/18/20 09:00 99.8 91 22 108/60 (76) 10/18/20 09:00 Mechanical Ventilator 10/18/20 08:00 93 10/18/20 08:00 94 20 146/70 (95) 93 10/18/20 08:00 100 10/18/20 07:42 22 128/66 Mechanical Ventilator 100 10/18/20 07:39 101 27 100 10/18/20 07:00 89 22 140/71 (94) 93 10/18/20 07:00 20 140/71 Mechanical Ventilator 100 10/18/20 07:00 20 140/71 Mechanical Ventilator 100 10/18/20 06:00 88 20 122/66 (84) 93 10/18/20 06:00 22 124/68 Mechanical Ventilator 100 10/18/20 06:00 22 124/68 Mechanical Ventilator 100 10/18/20 05:00 22 121/64 Mechanical Ventilator 100 10/18/20 05:00 22 121/64 Mechanical Ventilator 100 10/18/20 05:00 84 22 125/70 (88) 92 10/18/20 04:00 99.7 82 21 128/63 (84) 92 10/18/20 04:00 Mechanical Ventilator 10/18/20 04:00 22 123/68 Mechanical Ventilator 100 10/18/20 04:00 22 123/68 Mechanical Ventilator 100 10/18/20 04:00 100 10/18/20 03:47 81 10/18/20 03:37 82 23 100 10/18/20 03:00 80 22 116/65 (82) 91 10/18/20 03:00 22 130/65 Mechanical Ventilator 100 10/18/20 03:00 22 130/65 Mechanical Ventilator 100 10/18/20 02:16 22 104/55 Mechanical Ventilator 100 10/18/20 02:00 78 22 117/59 (78) 89 10/18/20 02:00 22 117/59 Mechanical Ventilator 100 10/18/20 02:00 22 117/59 Mechanical Ventilator 100 10/18/20 01:00 21 114/55 Mechanical Ventilator 100 10/18/20 01:00 21 114/55 Mechanical Ventilator 100 10/18/20 01:00 78 21 109/52 (71) 90 10/18/20 00:00 99.1 72 22 113/54 (73) 88 10/18/20 00:00 100 10/18/20 00:00 22 113/56 Mechanical Ventilator 100 10/18/20 00:00 22 113/56 Mechanical Ventilator 100 10/18/20 00:00 Mechanical Ventilator 10/17/20 23:35 74 10/17/20 23:30 74 22 113/50 (71) 89 10/17/20 23:17 74 26 100 10/17/20 23:15 72 21 111/59 (76) 88 10/17/20 23:00 22 111/59 Mechanical Ventilator 100 10/17/20 23:00 22 111/59 Mechanical Ventilator 100 10/17/20 23:00 84 20 119/58 (78) 86 10/17/20 22:00 71 22 110/55 (73) 88 10/17/20 22:00 22 105/53 Mechanical Ventilator 100 10/17/20 22:00 22 105/53 Mechanical Ventilator 100 10/17/20 21:00 71 23 109/53 (71) 89 10/17/20 21:00 26 136/62 Mechanical Ventilator 100 10/17/20 21:00 26 136/62 Mechanical Ventilator 100 10/17/20 20:32 70 102/52 10/17/20 20:31 20 102/52 Mechanical Ventilator 100 10/17/20 20:00 100 10/17/20 20:00 25 105/51 Mechanical Ventilator 100 10/17/20 20:00 25 105/51 Mechanical Ventilator 100 10/17/20 20:00 99.4 70 23 107/53 (71) 90 10/17/20 20:00 Mechanical Ventilator 10/17/20 19:45 73 26 100 10/17/20 19:42 71 10/17/20 19:00 22 119/55 Mechanical Ventilator 100 10/17/20 19:00 22 119/55 Mechanical Ventilator 100 10/17/20 19:00 81 21 119/55 (76) 87 10/17/20 18:30 73 22 109/58 (75) 89 10/17/20 18:00 22 98/50 Mechanical Ventilator 100 10/17/20 18:00 22 98/50 Mechanical Ventilator 100 10/17/20 18:00 69 21 98/50 (66) 87 10/17/20 17:30 70 23 109/58 (75) 87 10/17/20 17:00 22 109/53 Mechanical Ventilator 100 10/17/20 17:00 22 109/53 Mechanical Ventilator 100 10/17/20 17:00 74 24 109/53 (71) 88 Height (Feet): 5 Height (Inches): 1.00 Weight (Pounds): 210 HEENT: other - intubated Laboratory Tests Test 10/17/20 20:34 10/18/20 04:00 10/18/20 05:20 10/18/20 12:11 POC Whole Blood Glucose Pending Pending 242 MG/DL (74-106) H White Blood Count 14.9 K/UL (4.8-10.8) H Red Blood Count 3.38 M/UL (4.20-5.40) L Hemoglobin 9.6 G/DL (12.0-16.0) L Hematocrit 31.2 % (37.0-47.0) L Mean Corpuscular Volume 92 FL (80-99) Mean Corpuscular Hemoglobin 28.5 PG (27.0-31.0) Mean Corpuscular Hemoglobin Concent 30.9 G/DL (32.0-36.0) L Red Cell Distribution Width 15.1 % (11.6-14.8) H Platelet Count 329 K/UL (150-450) Mean Platelet Volume 8.5 FL (6.5-10.1) Neutrophils (%) (Auto) % (45.0-75.0) Lymphocytes (%) (Auto) % (20.0-45.0) Monocytes (%) (Auto) % (1.0-10.0) Eosinophils (%) (Auto) % (0.0-3.0) Basophils (%) (Auto) % (0.0-2.0) Sodium Level 145 MMOL/L (136-145) Potassium Level 4.4 MMOL/L (3.5-5.1) Chloride Level 104 MMOL/L (98-107) Carbon Dioxide Level 44 MMOL/L (21-32) *H Anion Gap -2 mmol/L (5-15) L Blood Urea Nitrogen 49 mg/dL (7-18) H Creatinine 1.0 MG/DL (0.55-1.30) Estimat Glomerular Filtration Rate > 60 mL/min (>60) Glucose Level 178 MG/DL (74-106) H Calcium Level 9.0 MG/DL (8.5-10.1) Triglycerides Level 223 MG/DL (30-150) H Current Medications Medications (Trade) Dose Ordered Sig/Sera Route PRN Reason Start Time Stop Time Status Last Admin Dose Admin Acetaminophen (Tylenol) 650 mg Q4H PRN ORAL Mild Pain (Pain Scale 1-3) 09/18/20 23:45 10/18/20 23:44 10/18/20 15:21 Anastrozole (Arimidex) 1 mg DAILY ORAL 09/19/20 09:00 10/19/20 08:59 10/18/20 08:55 Ascorbic Acid (Vitamin C) 500 mg TWICE A DAY ORAL 09/30/20 20:00 10/30/20 19:59 10/18/20 08:55 Budesonide/ Formoterol Fumarate (Symbicort 160/ 4.5) 2 puff BIDRT INH 10/02/20 11:00 12/31/20 10:59 10/15/20 10:30 Cefepime HCl 2 gm/ Dextrose 55 ml @ 110 mls/hr Q12H IVPB 10/16/20 18:00 10/23/20 17:59 10/18/20 05:09 Cetylpyridinium Chloride (Cepacol) 1 lozg EVERY 2 HOURS PRN LAURA For Cough 09/25/20 18:15 12/24/20 18:14 09/28/20 21:19 Chlorhexidine Gluconate (Brandee-Hex 2%) 1 applic DAILY@2000 TOPIC 09/30/20 20:00 12/29/20 19:59 10/17/20 20:31 Clonidine HCl (Catapres Tab) 0.1 mg Q4H PRN ORAL SBP > 160 09/19/20 17:15 12/18/20 17:14 09/24/20 03:09 Dextrose (Dextrose 50%) 25 ml Q30M PRN IV Hypoglycemia 10/02/20 22:00 12/31/20 21:59 Dextrose (Dextrose 50%) 50 ml Q30M PRN IV Hypoglycemia 10/02/20 22:00 12/31/20 21:59 Diltiazem HCl (Cardizem ER) 180 mg BID@0900,2100 ORAL 10/11/20 09:00 11/10/20 08:59 10/17/20 08:05 Docusate Sodium (Colace) 100 mg TWICE A DAY NG 10/16/20 09:00 11/15/20 08:59 10/18/20 08:54 Enoxaparin Sodium (Lovenox) 40 mg Q12HR SUBQ 10/16/20 09:00 01/14/21 08:59 10/18/20 08:56 Fentanyl Citrate 1000 mcg/Sodium Chloride 100 ml @ 0 mls/hr Q24H PRN IV SEDATION 10/16/20 21:30 10/18/20 21:29 10/18/20 16:43 Fluticasone Propionate (Flonase) 1 spray QHS NASAL 09/18/20 21:00 10/18/20 20:59 10/17/20 20:32 Furosemide (Lasix) 40 mg DAILY IV 10/12/20 09:00 11/11/20 08:59 10/18/20 08:54 Guaifenesin/ Codeine Phosphate (Robitussin with codeine) 10 ml Q6H PRN ORAL For Cough 10/12/20 01:45 11/11/20 01:44 10/14/20 16:09 Hydroxyzine HCl (Atarax) 50 mg Q4H PRN ORAL Itching 09/19/20 06:15 10/19/20 06:14 10/12/20 04:48 Insulin Aspart (NovoLOG) EVERY 6 HOURS SUBQ 10/16/20 06:00 01/01/21 06:29 10/18/20 12:23 Insulin Detemir (Levemir) 15 units BEDTIME SUBQ 10/11/20 21:00 12/31/20 21:59 10/17/20 21:03 Insulin Detemir (Levemir) 18 units DAILY SUBQ 10/11/20 09:00 01/09/21 08:59 10/18/20 08:58 Lactobacillus Acidophilus (Culturelle) 1 tab TWICE A DAY ORAL 09/25/20 18:00 12/24/20 17:59 10/18/20 08:55 Lorazepam (Ativan 2mg/ml 1ml) 2 mg Q4H PRN IV For Anxiety 10/15/20 15:15 10/22/20 15:14 10/15/20 15:26 Lorazepam (Ativan) 1 mg Q4H PRN ORAL For Anxiety 10/13/20 09:45 10/20/20 09:44 10/15/20 09:25 Magnesium Hydroxide (Mom) 30 ml DAILYPRN PRN ORAL Constipation 10/03/20 15:15 11/02/20 15:14 10/07/20 11:37 Methylprednisolone Sodium Succinate (Solu-MEDROL) 40 mg EVERY 8 HOURS IVP 10/12/20 09:00 01/10/21 08:59 10/18/20 13:58 Midazolam HCl 50 mg/Sodium Chloride 100 ml @ 0 mls/hr Q24H PRN IV To Patient Comfort 10/18/20 14:00 10/20/20 13:50 10/18/20 15:20 Ondansetron HCl (Zofran) 4 mg Q6H PRN IVP Nausea & Vomiting 09/18/20 19:00 10/18/20 18:59 10/15/20 09:25 Pantoprazole (Protonix) 40 mg EVERY 12 HOURS IVP 10/16/20 09:00 11/15/20 08:59 10/18/20 08:54 Sertraline HCl (Zoloft) 100 mg DAILY ORAL 09/19/20 09:00 10/19/20 08:59 10/18/20 08:54 Vitamin D (Vitamin D) 1,000 unit DAILY ORAL 09/30/20 20:00 10/30/20 19:59 1/6/21 08:55 Zinc Sulfate (Zinc Sulfate) 220 mg DAILY ORAL 09/30/20 20:00 12/29/20 19:59 10/18/20 08:55 Lo Delcid MD Oct 18, 2020 16:55
--- NOTE | 2020-10-18 19:32 | Psychiatric Progress Note ---
Psychiatry Progress Note Psychiatry Progress Note Subjective intubated on restraints Medications Current Medications Medications (Trade) Dose Ordered Sig/Sera Route PRN Reason Start Time Stop Time Status Last Admin Dose Admin Acetaminophen (Tylenol) 650 mg Q4H PRN ORAL Mild Pain (Pain Scale 1-3) 09/18/20 23:45 10/18/20 23:44 10/18/20 15:21 Anastrozole (Arimidex) 1 mg DAILY ORAL 09/19/20 09:00 10/19/20 08:59 10/18/20 08:55 Ascorbic Acid (Vitamin C) 500 mg TWICE A DAY ORAL 09/30/20 20:00 10/30/20 19:59 10/18/20 17:26 Budesonide/ Formoterol Fumarate (Symbicort 160/ 4.5) 2 puff BIDRT INH 10/02/20 11:00 12/31/20 10:59 10/15/20 10:30 Cefepime HCl 2 gm/ Dextrose 55 ml @ 110 mls/hr Q12H IVPB 10/16/20 18:00 10/23/20 17:59 10/18/20 17:26 Cetylpyridinium Chloride (Cepacol) 1 lozg EVERY 2 HOURS PRN LAURA For Cough 09/25/20 18:15 12/24/20 18:14 09/28/20 21:19 Chlorhexidine Gluconate (Brandee-Hex 2%) 1 applic DAILY@1999 TOPIC 09/30/20 20:00 12/29/20 19:59 10/17/20 20:31 Clonidine HCl (Catapres Tab) 0.1 mg Q4H PRN ORAL SBP > 160 09/19/20 17:15 12/18/20 17:14 09/24/20 03:09 Dextrose (Dextrose 50%) 25 ml Q30M PRN IV Hypoglycemia 10/02/20 22:00 12/31/20 21:59 Dextrose (Dextrose 50%) 50 ml Q30M PRN IV Hypoglycemia 10/02/20 22:00 12/31/20 21:59 Diltiazem HCl (Cardizem ER) 180 mg BID@0900,2100 ORAL 10/11/20 09:00 11/10/20 08:59 10/17/20 08:05 Docusate Sodium (Colace) 100 mg TWICE A DAY NG 10/16/20 09:00 2/3/21 08:59 10/18/20 17:26 Enoxaparin Sodium (Lovenox) 40 mg Q12HR SUBQ 10/16/20 09:00 01/14/21 08:59 10/18/20 08:56 Fentanyl Citrate 1000 mcg/Sodium Chloride 100 ml @ 0 mls/hr Q24H PRN IV SEDATION 10/16/20 21:30 10/18/20 21:29 10/18/20 16:43 Fluticasone Propionate (Flonase) 1 spray QHS NASAL 09/18/20 21:00 10/18/20 20:59 10/17/20 20:32 Furosemide (Lasix) 40 mg DAILY IV 10/12/20 09:00 11/11/20 08:59 10/18/20 08:54 Guaifenesin/ Codeine Phosphate (Robitussin with codeine) 10 ml Q6H PRN ORAL For Cough 10/12/20 01:45 11/11/20 01:44 10/14/20 16:09 Hydroxyzine HCl (Atarax) 50 mg Q4H PRN ORAL Itching 09/19/20 06:15 10/19/20 06:14 10/12/20 04:48 Insulin Aspart (NovoLOG) EVERY 6 HOURS SUBQ 10/16/20 06:00 01/01/21 06:29 10/18/20 18:19 Insulin Detemir (Levemir) 15 units BEDTIME SUBQ 10/11/20 21:00 12/31/20 21:59 10/17/20 21:03 Insulin Detemir (Levemir) 18 units DAILY SUBQ 10/11/20 09:00 01/09/21 08:59 10/18/20 08:58 Lactobacillus Acidophilus (Culturelle) 1 tab TWICE A DAY ORAL 09/25/20 18:00 12/24/20 17:59 10/18/20 17:26 Lorazepam (Ativan 2mg/ml 1ml) 2 mg Q4H PRN IV For Anxiety 10/15/20 15:15 10/22/20 15:14 10/15/20 15:26 Lorazepam (Ativan) 1 mg Q4H PRN ORAL For Anxiety 10/13/20 09:45 10/20/20 09:44 10/15/20 09:25 Magnesium Hydroxide (Mom) 30 ml DAILYPRN PRN ORAL Constipation 10/03/20 15:15 11/02/20 15:14 10/07/20 11:37 Methylprednisolone Sodium Succinate (Solu-MEDROL) 40 mg EVERY 8 HOURS IVP 10/12/20 09:00 01/10/21 08:59 10/18/20 13:58 Midazolam HCl 50 mg/Sodium Chloride 100 ml @ 0 mls/hr Q24H PRN IV To Patient Comfort 10/18/20 14:00 10/20/20 13:50 10/18/20 15:20 Pantoprazole (Protonix) 40 mg EVERY 12 HOURS IVP 10/16/20 09:00 11/15/20 08:59 10/18/20 08:54 Sertraline HCl (Zoloft) 100 mg DAILY ORAL 09/19/20 09:00 10/19/20 08:59 10/18/20 08:54 Vitamin D (Vitamin D) 1,000 unit DAILY ORAL 09/30/20 20:00 10/30/20 19:59 10/18/20 08:55 Zinc Sulfate (Zinc Sulfate) 220 mg DAILY ORAL 09/30/20 20:00 12/29/20 19:59 10/18/20 08:55 Neurological/Psychiatric: Reports: no symptoms Allergies: Coded Allergies: AMOXICILLIN (Verified Allergy, Mild, RASH HIVES, 09/29/13) ERYTHROMYCIN BASE (Unverified Allergy, Unknown, 10/13/17) IODINE (Verified Allergy, Unknown, 09/29/13) PENICILLINS (Verified Allergy, Unknown, RASH HIVES, 09/29/13) Objective Data Height (Feet): 5 Height (Inches): 1.00 Weight (Pounds): 210 General Appearance: lethargic Additional Comments: Assessment/Plan Status: deteriorating Assessment/Plan: ASSESSMENT: Unity I Major depressive disorder. Anxiety disorder. toxic encephalopathy PLAN: 1. renewed the restraints Jayy Andino MD Oct 18, 2020 19:32
[2020-10-18] MEDS: Dyna-Hex 2% Top Sol 2oz TOPIC SCH (20:10)
--- NOTE | 2020-10-18 22:35 | Cardiology Progress Note ---
Subjective DATE OF SERVICE: Oct 18, 2020 Remains on full vent support, with high dose O2 Glucose iremains elevated due to steroids Monitor: sinus tachycardia with arrhythmia and PAC's. Objective Last 24 Hour Vital Signs Date Time Temp Pulse Resp B/P (MAP) Pulse Ox O2 Delivery O2 Flow Rate FiO2 10/18/20 22:00 102 21 160/75 (103) 97 10/18/20 21:00 102 21 157/83 (107) 96 10/18/20 20:10 99 154/77 10/18/20 20:00 100 10/18/20 20:00 Mechanical Ventilator 10/18/20 20:00 99.7 99 25 154/77 (102) 96 10/18/20 19:34 103 25 100 10/18/20 19:15 97 22 147/79 (101) 95 10/18/20 19:00 98 20 165/92 (116) 95 10/18/20 18:45 98 22 152/79 (103) 95 10/18/20 18:43 23 Mechanical Ventilator 10/18/20 18:43 22 165/92 Mechanical Ventilator 10/18/20 18:30 99 22 143/78 (99) 95 10/18/20 18:15 94 22 141/71 (94) 94 10/18/20 18:00 93 22 120/98 (105) 94 10/18/20 17:43 21 Mechanical Ventilator 10/18/20 17:43 22 155/71 Mechanical Ventilator 10/18/20 17:15 92 21 154/75 (101) 93 10/18/20 17:00 94 21 152/73 (99) 93 10/18/20 17:00 98 23 154/75 (101) 94 10/18/20 16:45 93 20 151/72 (98) 93 10/18/20 16:43 23 Mechanical Ventilator 10/18/20 16:43 22 153/78 Mechanical Ventilator 10/18/20 16:30 93 22 153/78 (103) 93 10/18/20 16:15 92 23 138/78 (98) 94 10/18/20 16:00 100 10/18/20 16:00 98.9 91 22 150/76 (100) 94 10/18/20 16:00 94 10/18/20 15:45 91 22 150/74 (99) 95 10/18/20 15:30 91 20 117/68 (84) 93 10/18/20 15:20 23 Nasal Cannula 10/18/20 15:15 91 21 151/74 (99) 94 10/18/20 15:00 91 21 125/70 (88) 95 10/18/20 14:45 91 23 127/66 (86) 95 10/18/20 14:30 93 21 127/69 (88) 95 10/18/20 14:15 93 20 130/65 (86) 95 10/18/20 14:00 93 22 141/68 (92) 95 10/18/20 13:42 21 130/65 Mechanical Ventilator 10/18/20 13:41 94 24 100 10/18/20 13:15 91 21 124/62 (82) 95 10/18/20 13:00 90 21 113/67 (82) 95 10/18/20 12:42 20 120/63 Mechanical Ventilator 10/18/20 12:30 89 20 112/63 (79) 95 10/18/20 12:15 93 21 120/63 (82) 94 10/18/20 12:00 99.9 91 21 125/64 (84) 94 10/18/20 12:00 94 10/18/20 12:00 100 10/18/20 11:45 94 22 120/61 (80) 93 10/18/20 11:42 21 125/64 Mechanical Ventilator 10/18/20 11:30 96 20 123/61 (81) 94 10/18/20 11:15 94 23 132/65 (87) 93 10/18/20 11:00 95 23 129/70 (89) 94 10/18/20 11:00 24 132/65 Mechanical Ventilator 10/18/20 10:59 23 147/69 Mechanical Ventilator 10/18/20 10:45 94 22 121/67 (85) 93 10/18/20 10:42 23 129/70 Mechanical Ventilator 10/18/20 10:30 95 22 125/62 (83) 92 10/18/20 10:15 102 22 147/69 (95) 92 10/18/20 10:00 99 24 140/68 (92) 91 10/18/20 09:59 25 136/70 Mechanical Ventilator 10/18/20 09:42 22 140/68 Mechanical Ventilator 10/18/20 09:30 92 22 141/68 (92) 92 10/18/20 09:15 94 22 127/63 (84) 92 10/18/20 09:00 99.8 91 22 108/60 (76) 10/18/20 09:00 Mechanical Ventilator 10/18/20 08:42 22 108/60 Mechanical Ventilator 10/18/20 08:00 93 10/18/20 08:00 94 20 146/70 (95) 93 10/18/20 08:00 100 10/18/20 07:42 22 128/66 Mechanical Ventilator 100 10/18/20 07:39 101 27 100 10/18/20 07:00 89 22 140/71 (94) 93 10/18/20 07:00 20 140/71 Mechanical Ventilator 100 10/18/20 07:00 20 140/71 Mechanical Ventilator 100 10/18/20 06:00 88 20 122/66 (84) 93 10/18/20 06:00 22 124/68 Mechanical Ventilator 100 10/18/20 06:00 22 124/68 Mechanical Ventilator 100 10/18/20 05:00 22 121/64 Mechanical Ventilator 100 10/18/20 05:00 22 121/64 Mechanical Ventilator 100 10/18/20 05:00 84 22 125/70 (88) 92 10/18/20 04:00 99.7 82 21 128/63 (84) 92 10/18/20 04:00 Mechanical Ventilator 10/18/20 04:00 22 123/68 Mechanical Ventilator 100 10/18/20 04:00 22 123/68 Mechanical Ventilator 100 10/18/20 04:00 100 10/18/20 03:47 81 10/18/20 03:37 82 23 100 10/18/20 03:00 80 22 116/65 (82) 91 10/18/20 03:00 22 130/65 Mechanical Ventilator 100 10/18/20 03:00 22 130/65 Mechanical Ventilator 100 10/18/20 02:16 22 104/55 Mechanical Ventilator 100 10/18/20 02:00 78 22 117/59 (78) 89 10/18/20 02:00 22 117/59 Mechanical Ventilator 100 10/18/20 02:00 22 117/59 Mechanical Ventilator 100 10/18/20 01:00 21 114/55 Mechanical Ventilator 100 10/18/20 01:00 21 114/55 Mechanical Ventilator 100 10/18/20 01:00 78 21 109/52 (71) 90 10/18/20 00:00 99.1 72 22 113/54 (73) 88 10/18/20 00:00 100 10/18/20 00:00 22 113/56 Mechanical Ventilator 100 10/18/20 00:00 22 113/56 Mechanical Ventilator 100 10/18/20 00:00 Mechanical Ventilator 10/17/20 23:35 74 10/17/20 23:30 74 22 113/50 (71) 89 10/17/20 23:17 74 26 100 10/17/20 23:15 72 21 111/59 (76) 88 10/17/20 23:00 22 111/59 Mechanical Ventilator 100 10/17/20 23:00 22 111/59 Mechanical Ventilator 100 10/17/20 23:00 84 20 119/58 (78) 86 ROS: unchanged from 09/18/20 HEENT: Orally intubated, Mechanically Ventilated RHYTHM: NSR, ST, PACs LUNGS: bilateral rhonchi, coarse breath sounds CARDIAC: normal rate, regular rhythm, normal S1 and S2, gallop/S4 ABDOMEN: normal bowel sounds, non tender, soft, no organomegaly, other - obese EXTREMITIES: +1 edema Laboratory Tests Test 10/18/20 04:00 10/18/20 05:20 10/18/20 12:11 10/18/20 17:39 White Blood Count 14.9 K/UL (4.8-10.8) H Red Blood Count 3.38 M/UL (4.20-5.40) L Hemoglobin 9.6 G/DL (12.0-16.0) L Hematocrit 31.2 % (37.0-47.0) L Mean Corpuscular Volume 92 FL (80-99) Mean Corpuscular Hemoglobin 28.5 PG (27.0-31.0) Mean Corpuscular Hemoglobin Concent 30.9 G/DL (32.0-36.0) L Red Cell Distribution Width 15.1 % (11.6-14.8) H Platelet Count 329 K/UL (150-450) Mean Platelet Volume 8.5 FL (6.5-10.1) Neutrophils (%) (Auto) % (45.0-75.0) Lymphocytes (%) (Auto) % (20.0-45.0) Monocytes (%) (Auto) % (1.0-10.0) Eosinophils (%) (Auto) % (0.0-3.0) Basophils (%) (Auto) % (0.0-2.0) Sodium Level 145 MMOL/L (136-145) Potassium Level 4.4 MMOL/L (3.5-5.1) Chloride Level 104 MMOL/L (98-107) Carbon Dioxide Level 44 MMOL/L (21-32) *H Anion Gap -2 mmol/L (5-15) L Blood Urea Nitrogen 49 mg/dL (7-18) H Creatinine 1.0 MG/DL (0.55-1.30) Estimat Glomerular Filtration Rate > 60 mL/min (>60) Glucose Level 178 MG/DL (74-106) H Calcium Level 9.0 MG/DL (8.5-10.1) Triglycerides Level 223 MG/DL (30-150) H POC Whole Blood Glucose Pending 242 MG/DL (74-106) H 207 MG/DL (74-106) H Test 10/18/20 20:04 POC Whole Blood Glucose Pending Assessment/Plan Assessment/Plan COVID19 pneumonia Acute respiratory failure COPD exacerbation Hypoxia Paroxysmal atrial ectopy Sinus tachyarrhythmias Acute bronchitis worsening. Ac/chr diastolic CHF with decreasing BNP now - clinically compensated. Hx breast CA Paroxysmal atrial ectopy Hypertensive heart disease Sinus tachycardia improved UTI - K.pn (multi-drug resistant) IRDM uncontrolled on steroids Constipation Myalgias REMAINS CRITICAL AND GUARDED Vent support - wean O2 Continue IV steroids Anti-viral rx per ID - remdesivir completed Anti-coagulation Diuresis based on clinical parameters; trend BNP as needed. Titrate antiHTN regimen as needed - will continue diltiazem for atrial arrhythmia management. Insulin coverage with ongoing levemir titration - see orders Bowel regimen Werner Martinez MD Oct 18, 2020 22:35
[2020-10-18] MEDS: dilTIAZem HCl 60mg tab NG SCH (23:21)
[2020-10-19] VITALS (56 sets, daily range): BP systolic 125–196; BP diastolic 69–87
[2020-10-19] MEDS: Cefepime HCl 2 GM in D5W 55 ML IVPB SCH ×2 (05:10→17:47)
[2020-10-19] MEDS: Solu-MEDROL 40mg Inj IVP SCH ×3 (05:10→21:09)
[2020-10-19] MEDS: dilTIAZem HCl 60mg tab NG SCH ×3 (05:11→17:47)
[2020-10-19] MEDS: NovoLOG Insulin Flexpen SUBQ SCH ×4 (05:38→18:08)
[2020-10-19 06:33] LABS: HEMOGLOBIN 10.8 G/DL (12.0-16.0); MEAN CORPUSCULAR VOLUME 93 FL (80-99); PLATELET COUNT 365 K/UL (150-450); RED BLOOD COUNT 3.75 M/UL (4.20-5.40); RED CELL DISTRIBUTION WIDTH 15.1 % (11.6-14.8); WHITE BLOOD COUNT 17.3 K/UL (4.8-10.8)
[2020-10-19 07:28] LABS: ALANINE AMINOTRANSFERASE 20 U/L (12-78); ALBUMIN 2.3 G/DL (3.4-5.0); ALBUMIN/GLOBULIN RATIO 0.5 (1.0-2.7); ALKALINE PHOSPHATASE 127 U/L (46-116); ANION GAP 2 mmol/L (5-15); ASPARTATE AMINO TRANSFERASE 21 U/L (15-37); BILIRUBIN,TOTAL 0.2 MG/DL (0.2-1.0); BLOOD UREA NITROGEN 54 mg/dL (7-18); CALCIUM 9.3 MG/DL (8.5-10.1); CHLORIDE 102 MMOL/L (98-107); CREATININE 0.9 MG/DL (0.55-1.30); POTASSIUM 4.8 MMOL/L (3.5-5.1); SODIUM 147 MMOL/L (136-145)
[2020-10-19 07:30] LABS: CARBON DIOXIDE 44 MMOL/L (21-32)
[2020-10-19] MEDS ORDERED: HydrOXYzine 50mg tab ORAL PRN (07:45)
--- NOTE | 2020-10-19 07:59 | Infectious Diseases Prog Note ---
Assessment/Plan Assessment/Plan A: 1. Klebsiella urinary tract infection. 2. Facial cellulitis. 3. COPD exacerbation. 4. DM with hyperglycemia 5 HPN 6. Penicillin allergy 7. COVID19 pneumonia 8. Hypercapnic,hypoxic respiratory failure PLAN: 1. Finished remdesivir course 2. continue Solumedrol & Cefepime 3. Sputum culture Subjective ROS Limited/Unobtainable: Yes Constitutional: Reports: fever, other - T=100.3 Respiratory: Reports: other - reintubated on10/15 Neurologic: Reports: other - on restraint Allergies: Coded Allergies: AMOXICILLIN (Verified Allergy, Mild, RASH HIVES, 09/29/13) ERYTHROMYCIN BASE (Unverified Allergy, Unknown, 10/13/17) IODINE (Verified Allergy, Unknown, 09/29/13) PENICILLINS (Verified Allergy, Unknown, RASH HIVES, 09/29/13) Objective Last 24 Hour Vital Signs Date Time Temp Pulse Resp B/P (MAP) Pulse Ox O2 Delivery O2 Flow Rate FiO2 10/19/20 07:00 106 22 154/72 (99) 93 10/19/20 06:43 24 Mechanical Ventilator 100 10/19/20 06:10 22 159/78 Mechanical Ventilator 100 10/19/20 06:00 110 22 157/69 (98) 94 10/19/20 05:43 22 Mechanical Ventilator 100 10/19/20 05:11 101 144/70 10/19/20 05:10 22 145/71 Mechanical Ventilator 100 10/19/20 05:00 101 22 144/70 (94) 94 10/19/20 04:43 22 Mechanical Ventilator 100 10/19/20 04:10 22 131/69 Mechanical Ventilator 100 10/19/20 04:00 100 10/19/20 04:00 100.3 99 23 143/71 (95) 95 10/19/20 04:00 Mechanical Ventilator 10/19/20 03:43 22 Mechanical Ventilator 100 10/19/20 03:22 99 10/19/20 03:10 21 130/73 Mechanical Ventilator 100 10/19/20 03:00 98 22 130/73 (92) 97 10/19/20 02:43 22 Mechanical Ventilator 100 10/19/20 02:00 98 22 149/69 (95) 96 10/19/20 01:46 98 23 100 10/19/20 01:43 22 Mechanical Ventilator 100 10/19/20 01:43 22 139/71 Mechanical Ventilator 100 10/19/20 01:00 99 23 155/72 (99) 97 10/19/20 00:43 22 Mechanical Ventilator 100 10/19/20 00:43 22 141/77 Mechanical Ventilator 100 10/19/20 00:00 99.8 98 24 135/75 (95) 96 10/19/20 00:00 Mechanical Ventilator 10/18/20 23:43 22 Mechanical Ventilator 100 10/18/20 23:43 21 157/69 Mechanical Ventilator 100 10/18/20 23:21 103 161/87 10/18/20 23:16 101 10/18/20 23:00 103 25 161/88 (112) 96 10/18/20 22:43 22 Mechanical Ventilator 100 10/18/20 22:43 22 161/74 Mechanical Ventilator 100 10/18/20 22:00 102 21 160/75 (103) 97 10/18/20 21:43 22 Mechanical Ventilator 100 10/18/20 21:43 22 153/82 Mechanical Ventilator 100 10/18/20 21:00 102 21 157/83 (107) 96 10/18/20 20:43 22 Mechanical Ventilator 100 10/18/20 20:43 23 168/80 Mechanical Ventilator 100 10/18/20 20:10 99 154/77 10/18/20 20:00 100 10/18/20 20:00 Mechanical Ventilator 10/18/20 20:00 99.7 99 25 154/77 (102) 96 10/18/20 19:43 22 Mechanical Ventilator 100 10/18/20 19:43 24 152/77 Mechanical Ventilator 100 10/18/20 19:34 103 25 100 10/18/20 19:29 99 10/18/20 19:15 97 22 147/79 (101) 95 10/18/20 19:00 98 20 165/92 (116) 95 10/18/20 18:45 98 22 152/79 (103) 95 10/18/20 18:43 23 Mechanical Ventilator 10/18/20 18:43 22 165/92 Mechanical Ventilator 10/18/20 18:30 99 22 143/78 (99) 95 10/18/20 18:15 94 22 141/71 (94) 94 10/18/20 18:00 93 22 120/98 (105) 94 10/18/20 17:43 21 Mechanical Ventilator 10/18/20 17:43 22 155/71 Mechanical Ventilator 10/18/20 17:15 92 21 154/75 (101) 93 10/18/20 17:00 94 21 152/73 (99) 93 10/18/20 17:00 98 23 154/75 (101) 94 10/18/20 16:45 93 20 151/72 (98) 93 10/18/20 16:43 23 Mechanical Ventilator 10/18/20 16:43 22 153/78 Mechanical Ventilator 10/18/20 16:30 93 22 153/78 (103) 93 10/18/20 16:15 92 23 138/78 (98) 94 10/18/20 16:00 100 10/18/20 16:00 98.9 91 22 150/76 (100) 94 10/18/20 16:00 94 10/18/20 15:45 91 22 150/74 (99) 95 10/18/20 15:30 91 20 117/68 (84) 93 10/18/20 15:20 23 Nasal Cannula 10/18/20 15:15 91 21 151/74 (99) 94 10/18/20 15:00 91 21 125/70 (88) 95 10/18/20 14:45 91 23 127/66 (86) 95 10/18/20 14:30 93 21 127/69 (88) 95 10/18/20 14:15 93 20 130/65 (86) 95 10/18/20 14:00 93 22 141/68 (92) 95 10/18/20 13:42 21 130/65 Mechanical Ventilator 10/18/20 13:41 94 24 100 10/18/20 13:15 91 21 124/62 (82) 95 10/18/20 13:00 90 21 113/67 (82) 95 10/18/20 12:42 20 120/63 Mechanical Ventilator 10/18/20 12:30 89 20 112/63 (79) 95 10/18/20 12:15 93 21 120/63 (82) 94 10/18/20 12:00 99.9 91 21 125/64 (84) 94 10/18/20 12:00 94 10/18/20 12:00 100 10/18/20 11:45 94 22 120/61 (80) 93 1/6/21 11:42 21 125/64 Mechanical Ventilator 10/18/20 11:30 96 20 123/61 (81) 94 10/18/20 11:15 94 23 132/65 (87) 93 10/18/20 11:00 95 23 129/70 (89) 94 10/18/20 11:00 24 132/65 Mechanical Ventilator 10/18/20 10:59 23 147/69 Mechanical Ventilator 10/18/20 10:45 94 22 121/67 (85) 93 10/18/20 10:42 23 129/70 Mechanical Ventilator 10/18/20 10:30 95 22 125/62 (83) 92 10/18/20 10:15 102 22 147/69 (95) 92 10/18/20 10:00 99 24 140/68 (92) 91 10/18/20 09:59 25 136/70 Mechanical Ventilator 10/18/20 09:42 22 140/68 Mechanical Ventilator 10/18/20 09:30 92 22 141/68 (92) 92 10/18/20 09:15 94 22 127/63 (84) 92 10/18/20 09:00 99.8 91 22 108/60 (76) 10/18/20 09:00 Mechanical Ventilator 10/18/20 08:42 22 108/60 Mechanical Ventilator 10/18/20 08:00 93 10/18/20 08:00 94 20 146/70 (95) 93 10/18/20 08:00 100 Height (Feet): 5 Height (Inches): 1.00 Weight (Pounds): 210 HEENT: other - orally intubated Cardiovascular: tachycardia Abdomen: soft, non tender Neurologic/Psychiatric: other - sedated Laboratory Tests Test 10/18/20 12:11 10/18/20 17:39 10/18/20 20:04 10/19/20 04:00 POC Whole Blood Glucose 242 MG/DL (74-106) H 207 MG/DL (74-106) H Pending White Blood Count 17.3 K/UL (4.8-10.8) H Red Blood Count 3.75 M/UL (4.20-5.40) L Hemoglobin 10.8 G/DL (12.0-16.0) L Hematocrit 35.0 % (37.0-47.0) L Mean Corpuscular Volume 93 FL (80-99) Mean Corpuscular Hemoglobin 28.8 PG (27.0-31.0) Mean Corpuscular Hemoglobin Concent 30.8 G/DL (32.0-36.0) L Red Cell Distribution Width 15.1 % (11.6-14.8) H Platelet Count 365 K/UL (150-450) Mean Platelet Volume 8.3 FL (6.5-10.1) Neutrophils (%) (Auto) % (45.0-75.0) Lymphocytes (%) (Auto) % (20.0-45.0) Monocytes (%) (Auto) % (1.0-10.0) Eosinophils (%) (Auto) % (0.0-3.0) Basophils (%) (Auto) % (0.0-2.0) Neutrophils % (Manual) Pending Lymphocytes % (Manual) Pending Platelet Estimate Pending Platelet Morphology Pending Sodium Level 147 MMOL/L (136-145) H Potassium Level 4.8 MMOL/L (3.5-5.1) Chloride Level 102 MMOL/L (98-107) Carbon Dioxide Level 44 MMOL/L (21-32) *H Anion Gap 2 mmol/L (5-15) L Blood Urea Nitrogen 54 mg/dL (7-18) H Creatinine 0.9 MG/DL (0.55-1.30) Estimat Glomerular Filtration Rate > 60 mL/min (>60) Glucose Level 181 MG/DL (74-106) H Calcium Level 9.3 MG/DL (8.5-10.1) Magnesium Level 2.9 MG/DL (1.8-2.4) H Total Bilirubin 0.2 MG/DL (0.2-1.0) Aspartate Amino Transf (AST/SGOT) 21 U/L (15-37) Alanine Aminotransferase (ALT/SGPT) 20 U/L (12-78) Alkaline Phosphatase 127 U/L (46-116) H Pro-B-Type Natriuretic Peptide 316 pg/mL (0-125) H Total Protein 7.0 G/DL (6.4-8.2) Albumin 2.3 G/DL (3.4-5.0) L Globulin 4.7 g/dL Albumin/Globulin Ratio 0.5 (1.0-2.7) L Test 10/19/20 05:26 POC Whole Blood Glucose Pending Current Medications Medications (Trade) Dose Ordered Sig/Sera Route PRN Reason Start Time Stop Time Status Last Admin Dose Admin Anastrozole (Arimidex) 1 mg DAILY ORAL 10/19/20 09:00 11/18/20 08:59 Ascorbic Acid (Vitamin C) 500 mg TWICE A DAY ORAL 09/30/20 20:00 10/30/20 19:59 10/18/20 17:26 Budesonide/ Formoterol Fumarate (Symbicort 160/ 4.5) 2 puff BIDRT INH 10/02/20 11:00 12/31/20 10:59 10/15/20 10:30 Cefepime HCl 2 gm/ Dextrose 55 ml @ 110 mls/hr Q12H IVPB 10/16/20 18:00 10/23/20 17:59 10/19/20 05:10 Cetylpyridinium Chloride (Cepacol) 1 lozg EVERY 2 HOURS PRN LAURA For Cough 09/25/20 18:15 12/24/20 18:14 09/28/20 21:19 Chlorhexidine Gluconate (Brandee-Hex 2%) 1 applic DAILY@2000 TOPIC 09/30/20 20:00 12/29/20 19:59 10/18/20 20:10 Clonidine HCl (Catapres Tab) 0.1 mg Q4H PRN ORAL SBP > 160 09/19/20 17:15 12/18/20 17:14 09/24/20 03:09 Dextrose (Dextrose 50%) 25 ml Q30M PRN IV Hypoglycemia 10/02/20 22:00 12/31/20 21:59 Dextrose (Dextrose 50%) 50 ml Q30M PRN IV Hypoglycemia 10/02/20 22:00 12/31/20 21:59 Diltiazem HCl (Cardizem Tab) 60 mg EVERY 6 HOURS NG 10/19/20 00:00 11/18/20 00:00 10/19/20 05:11 Docusate Sodium (Colace) 100 mg TWICE A DAY NG 10/16/20 09:00 11/15/20 08:59 10/18/20 17:26 Enoxaparin Sodium (Lovenox) 40 mg Q12HR SUBQ 10/16/20 09:00 01/14/21 08:59 10/18/20 20:10 Fentanyl Citrate 1000 mcg/Sodium Chloride 100 ml @ 1 mls/hr Q24H IV 10/19/20 03:00 10/26/20 02:59 10/19/20 03:10 Furosemide (Lasix) 40 mg DAILY IV 10/12/20 09:00 11/11/20 08:59 10/18/20 08:54 Guaifenesin/ Codeine Phosphate (Robitussin with codeine) 10 ml Q6H PRN ORAL For Cough 10/12/20 01:45 11/11/20 01:44 10/14/20 16:09 Hydroxyzine HCl (Atarax) 50 mg Q4H PRN ORAL itching 10/19/20 07:45 11/18/20 07:44 Insulin Aspart (NovoLOG) EVERY 6 HOURS SUBQ 10/16/20 06:00 01/01/21 06:29 10/19/20 05:38 Insulin Detemir (Levemir) 15 units BEDTIME SUBQ 10/11/20 21:00 12/31/20 21:59 10/18/20 20:11 Insulin Detemir (Levemir) 18 units DAILY SUBQ 10/11/20 09:00 01/09/21 08:59 10/18/20 08:58 Lactobacillus Acidophilus (Culturelle) 1 tab TWICE A DAY ORAL 09/25/20 18:00 12/24/20 17:59 10/18/20 17:26 Lorazepam (Ativan 2mg/ml 1ml) 2 mg Q4H PRN IV For Anxiety 10/15/20 15:15 10/22/20 15:14 10/15/20 15:26 Lorazepam (Ativan) 1 mg Q4H PRN ORAL For Anxiety 10/13/20 09:45 10/20/20 09:44 10/15/20 09:25 Magnesium Hydroxide (Mom) 30 ml DAILYPRN PRN ORAL Constipation 10/03/20 15:15 11/02/20 15:14 10/07/20 11:37 Methylprednisolone Sodium Succinate (Solu-MEDROL) 40 mg EVERY 8 HOURS IVP 10/12/20 09:00 01/10/21 08:59 10/19/20 05:10 Midazolam HCl 50 mg/Sodium Chloride 100 ml @ 0 mls/hr Q24H PRN IV To Patient Comfort 10/18/20 14:00 10/20/20 13:50 10/18/20 15:20 Pantoprazole (Protonix) 40 mg EVERY 12 HOURS IVP 10/16/20 09:00 11/15/20 08:59 10/18/20 20:10 Sertraline HCl (Zoloft) 100 mg DAILY ORAL 10/19/20 09:00 11/18/20 08:59 Vitamin D (Vitamin D) 1,000 unit DAILY ORAL 09/30/20 20:00 10/30/20 19:59 10/18/20 08:55 Zinc Sulfate (Zinc Sulfate) 220 mg DAILY ORAL 09/30/20 20:00 12/29/20 19:59 10/18/20 08:55 Rene Schultz MD Oct 19, 2020 07:58
--- NOTE | 2020-10-19 08:28 | General Progress Note ---
Subjective ROS Limited/Unobtainable: Yes Constitutional: Reports: malaise, weakness HEENT: Reports: no symptoms Cardiovascular: Reports: no symptoms Respiratory: Reports: no symptoms Gastrointestinal/Abdominal: Reports: no symptoms Genitourinary: Reports: no symptoms Neurologic/Psychiatric: Reports: no symptoms Endocrine: Reports: no symptoms Hematologic/Lymphatic: Reports: no symptoms Allergies: Coded Allergies: AMOXICILLIN (Verified Allergy, Mild, RASH HIVES, 09/29/13) ERYTHROMYCIN BASE (Unverified Allergy, Unknown, 10/13/17) IODINE (Verified Allergy, Unknown, 09/29/13) PENICILLINS (Verified Allergy, Unknown, RASH HIVES, 09/29/13) All Systems: reviewed and negative except above Subjective d/w RN. no events overnight. sedated. on the vent. no fevers. sats low 90s. on ngt feeds. cxr unchanged. BS stable. Objective Last 24 Hour Vital Signs Date Time Temp Pulse Resp B/P (MAP) Pulse Ox O2 Delivery O2 Flow Rate FiO2 10/19/20 08:15 102 22 164/73 (103) 93 10/19/20 08:00 100 10/19/20 08:00 104 20 172/78 (109) 93 10/19/20 07:45 101 23 154/73 (100) 93 10/19/20 07:30 103 23 151/75 (100) 93 10/19/20 07:15 104 22 145/76 (99) 93 10/19/20 07:00 106 22 154/72 (99) 93 10/19/20 06:43 24 Mechanical Ventilator 100 10/19/20 06:10 22 159/78 Mechanical Ventilator 100 10/19/20 06:00 110 22 157/69 (98) 94 10/19/20 05:43 22 Mechanical Ventilator 100 10/19/20 05:11 101 144/70 10/19/20 05:10 22 145/71 Mechanical Ventilator 100 10/19/20 05:00 101 22 144/70 (94) 94 10/19/20 04:43 22 Mechanical Ventilator 100 10/19/20 04:10 22 131/69 Mechanical Ventilator 100 10/19/20 04:00 100 10/19/20 04:00 100.3 99 23 143/71 (95) 95 10/19/20 04:00 Mechanical Ventilator 10/19/20 03:43 22 Mechanical Ventilator 100 10/19/20 03:22 99 10/19/20 03:10 21 130/73 Mechanical Ventilator 100 10/19/20 03:00 98 22 130/73 (92) 97 10/19/20 02:43 22 Mechanical Ventilator 100 10/19/20 02:00 98 22 149/69 (95) 96 10/19/20 01:46 98 23 100 10/19/20 01:43 22 Mechanical Ventilator 100 10/19/20 01:43 22 139/71 Mechanical Ventilator 100 10/19/20 01:00 99 23 155/72 (99) 97 10/19/20 00:43 22 Mechanical Ventilator 100 10/19/20 00:43 22 141/77 Mechanical Ventilator 100 10/19/20 00:00 99.8 98 24 135/75 (95) 96 10/19/20 00:00 Mechanical Ventilator 10/18/20 23:43 22 Mechanical Ventilator 100 10/18/20 23:43 21 157/69 Mechanical Ventilator 100 10/18/20 23:21 103 161/87 10/18/20 23:16 101 10/18/20 23:00 103 25 161/88 (112) 96 10/18/20 22:43 22 Mechanical Ventilator 100 10/18/20 22:43 22 161/74 Mechanical Ventilator 100 10/18/20 22:00 102 21 160/75 (103) 97 10/18/20 21:43 22 Mechanical Ventilator 100 10/18/20 21:43 22 153/82 Mechanical Ventilator 100 10/18/20 21:00 102 21 157/83 (107) 96 10/18/20 20:43 22 Mechanical Ventilator 100 10/18/20 20:43 23 168/80 Mechanical Ventilator 100 10/18/20 20:10 99 154/77 10/18/20 20:00 100 10/18/20 20:00 Mechanical Ventilator 10/18/20 20:00 99.7 99 25 154/77 (102) 96 10/18/20 19:43 22 Mechanical Ventilator 100 10/18/20 19:43 24 152/77 Mechanical Ventilator 100 10/18/20 19:34 103 25 100 10/18/20 19:29 99 10/18/20 19:15 97 22 147/79 (101) 95 10/18/20 19:00 98 20 165/92 (116) 95 10/18/20 18:45 98 22 152/79 (103) 95 10/18/20 18:43 23 Mechanical Ventilator 10/18/20 18:43 22 165/92 Mechanical Ventilator 10/18/20 18:30 99 22 143/78 (99) 95 10/18/20 18:15 94 22 141/71 (94) 94 10/18/20 18:00 93 22 120/98 (105) 94 10/18/20 17:43 21 Mechanical Ventilator 10/18/20 17:43 22 155/71 Mechanical Ventilator 10/18/20 17:15 92 21 154/75 (101) 93 10/18/20 17:00 94 21 152/73 (99) 93 10/18/20 17:00 98 23 154/75 (101) 94 10/18/20 16:45 93 20 151/72 (98) 93 10/18/20 16:43 23 Mechanical Ventilator 10/18/20 16:43 22 153/78 Mechanical Ventilator 10/18/20 16:30 93 22 153/78 (103) 93 10/18/20 16:15 92 23 138/78 (98) 94 10/18/20 16:00 100 10/18/20 16:00 98.9 91 22 150/76 (100) 94 10/18/20 16:00 94 10/18/20 15:45 91 22 150/74 (99) 95 10/18/20 15:30 91 20 117/68 (84) 93 10/18/20 15:20 23 Nasal Cannula 10/18/20 15:15 91 21 151/74 (99) 94 10/18/20 15:00 91 21 125/70 (88) 95 10/18/20 14:45 91 23 127/66 (86) 95 10/18/20 14:30 93 21 127/69 (88) 95 10/18/20 14:15 93 20 130/65 (86) 95 10/18/20 14:00 93 22 141/68 (92) 95 10/18/20 13:42 21 130/65 Mechanical Ventilator 10/18/20 13:41 94 24 100 10/18/20 13:15 91 21 124/62 (82) 95 10/18/20 13:00 90 21 113/67 (82) 95 10/18/20 12:42 20 120/63 Mechanical Ventilator 10/18/20 12:30 89 20 112/63 (79) 95 10/18/20 12:15 93 21 120/63 (82) 94 10/18/20 12:00 99.9 91 21 125/64 (84) 94 10/18/20 12:00 94 10/18/20 12:00 100 10/18/20 11:45 94 22 120/61 (80) 93 10/18/20 11:42 21 125/64 Mechanical Ventilator 10/18/20 11:30 96 20 123/61 (81) 94 10/18/20 11:15 94 23 132/65 (87) 93 10/18/20 11:00 95 23 129/70 (89) 94 10/18/20 11:00 24 132/65 Mechanical Ventilator 10/18/20 10:59 23 147/69 Mechanical Ventilator 10/18/20 10:45 94 22 121/67 (85) 93 10/18/20 10:42 23 129/70 Mechanical Ventilator 10/18/20 10:30 95 22 125/62 (83) 92 10/18/20 10:15 102 22 147/69 (95) 92 10/18/20 10:00 99 24 140/68 (92) 91 10/18/20 09:59 25 136/70 Mechanical Ventilator 10/18/20 09:42 22 140/68 Mechanical Ventilator 10/18/20 09:30 92 22 141/68 (92) 92 10/18/20 09:15 94 22 127/63 (84) 92 10/18/20 09:00 99.8 91 22 108/60 (76) 10/18/20 09:00 Mechanical Ventilator 10/18/20 08:42 22 108/60 Mechanical Ventilator Intake and Output 10/18/20 10/19/20 19:00 07:00 Intake Total 625.416 ml 563 ml Output Total 710 ml 600 ml Balance -84.584 ml -37 ml IV Total 265.416 ml 203 ml Tube Feeding 360 ml 360 ml Output Urine Total 710 ml 600 ml Laboratory Tests 10/18/20 12:11: POC Whole Blood Glucose 242H 10/18/20 17:39: POC Whole Blood Glucose 207H 10/18/20 20:04: POC Whole Blood Glucose [Pending] 10/19/20 04:00: White Blood Count 17.3H, Red Blood Count 3.75L, Hemoglobin 10.8L, Hematocrit 35.0L, Mean Corpuscular Volume 93, Mean Corpuscular Hemoglobin 28.8, Mean Corpuscular Hemoglobin Concent 30.8L, Red Cell Distribution Width 15.1H, Platelet Count 365, Mean Platelet Volume 8.3, Neutrophils (%) (Auto) , Lymphocytes (%) (Auto) , Monocytes (%) (Auto) , Eosinophils (%) (Auto) , Basophils (%) (Auto) , Neutrophils % (Manual) [Pending], Lymphocytes % (Manual) [Pending], Platelet Estimate [Pending], Platelet Morphology [Pending], Sodium Level 147H, Potassium Level 4.8, Chloride Level 102, Carbon Dioxide Level 44*H, Anion Gap 2L, Blood Urea Nitrogen 54H, Creatinine 0.9, Estimat Glomerular Filtration Rate > 60, Glucose Level 181H, Calcium Level 9.3, Magnesium Level 2.9H, Total Bilirubin 0.2, Aspartate Amino Transf (AST/SGOT) 21, Alanine Aminotransferase (ALT/SGPT) 20, Alkaline Phosphatase 127H, Pro-B-Type Natriuretic Peptide 316H, Total Protein 7.0, Albumin 2.3L, Globulin 4.7, Albumin/Globulin Ratio 0.5L 10/19/20 05:26: POC Whole Blood Glucose [Pending] Height (Feet): 5 Height (Inches): 1.00 Weight (Pounds): 210 Objective General Appearance: WD/WN, alert, nad. orally intubated EENT: PERRL/EOMI, normal ENT inspection Neck: non-tender, normal alignment Cardiovascular: normal peripheral pulses, normal rate, regular rhythm Respiratory/Chest: decreased bs. no wheezing Abdomen: normal bowel sounds, non tender, soft, no organomegaly Edema: no edema noted Arm (L), no edema noted Arm (R) Neurologic: firer bisque kiln II-XII grossly normal, no motor/sensory deficits, alert, oriented x 3, responsive, normal mood/affect Assessment/Plan Problem List: (1) Facial cellulitis ICD Codes: L03.211 - Cellulitis of face SNOMED: 999606255 (2) COPD exacerbation ICD Codes: J44.1 - COPD exacerbation SNOMED: 156642384 (3) Toxic metabolic encephalopathy ICD Codes: G92 - Toxic encephalopathy SNOMED: 050178909 (4) Hypertension, malignant ICD Codes: I10 - Hypertension, malignant SNOMED: 08573047 (5) Diabetes mellitus ICD Codes: E11.9 - Diabetes mellitus SNOMED: 00900302 Status: deteriorating Assessment/Plan: cont o2 vent support check abg monitor cxr cont inhalers resp rx steroids dvt/stress ulcer prophylaxis abx per id d/w family critical and guarded Floyd Downey MD Oct 19, 2020 08:28
--- NOTE | 2020-10-19 08:39 | Pulmonology Progress Note ---
Subjective ROS Limited/Unobtainable: Yes Constitutional: Reports: fever, other - T=100.3 Musculoskeletal: Denies: pain Allergies: Coded Allergies: AMOXICILLIN (Verified Allergy, Mild, RASH HIVES, 09/29/13) ERYTHROMYCIN BASE (Unverified Allergy, Unknown, 10/13/17) IODINE (Verified Allergy, Unknown, 09/29/13) PENICILLINS (Verified Allergy, Unknown, RASH HIVES, 09/29/13) All Systems: reviewed and negative except above Subjective remains intubated on vent and poor oxygen saturation /not improved + COVID sedated for now on PEEP Objective Last 24 Hour Vital Signs Date Time Temp Pulse Resp B/P (MAP) Pulse Ox O2 Delivery O2 Flow Rate FiO2 10/19/20 08:15 102 22 164/73 (103) 93 10/19/20 08:00 100 10/19/20 08:00 104 20 172/78 (109) 93 10/19/20 07:45 101 23 154/73 (100) 93 10/19/20 07:30 103 23 151/75 (100) 93 10/19/20 07:15 104 22 145/76 (99) 93 10/19/20 07:00 106 22 154/72 (99) 93 10/19/20 06:43 24 Mechanical Ventilator 100 10/19/20 06:10 22 159/78 Mechanical Ventilator 100 10/19/20 06:00 110 22 157/69 (98) 94 10/19/20 05:43 22 Mechanical Ventilator 100 10/19/20 05:11 101 144/70 10/19/20 05:10 22 145/71 Mechanical Ventilator 100 10/19/20 05:00 101 22 144/70 (94) 94 10/19/20 04:43 22 Mechanical Ventilator 100 10/19/20 04:10 22 131/69 Mechanical Ventilator 100 10/19/20 04:00 100 10/19/20 04:00 100.3 99 23 143/71 (95) 95 10/19/20 04:00 Mechanical Ventilator 10/19/20 03:43 22 Mechanical Ventilator 100 10/19/20 03:22 99 10/19/20 03:10 21 130/73 Mechanical Ventilator 100 10/19/20 03:00 98 22 130/73 (92) 97 10/19/20 02:43 22 Mechanical Ventilator 100 10/19/20 02:00 98 22 149/69 (95) 96 10/19/20 01:46 98 23 100 10/19/20 01:43 22 Mechanical Ventilator 100 10/19/20 01:43 22 139/71 Mechanical Ventilator 100 10/19/20 01:00 99 23 155/72 (99) 97 10/19/20 00:43 22 Mechanical Ventilator 100 10/19/20 00:43 22 141/77 Mechanical Ventilator 100 10/19/20 00:00 99.8 98 24 135/75 (95) 96 10/19/20 00:00 Mechanical Ventilator 10/18/20 23:43 22 Mechanical Ventilator 100 10/18/20 23:43 21 157/69 Mechanical Ventilator 100 10/18/20 23:21 103 161/87 10/18/20 23:16 101 10/18/20 23:00 103 25 161/88 (112) 96 10/18/20 22:43 22 Mechanical Ventilator 100 10/18/20 22:43 22 161/74 Mechanical Ventilator 100 10/18/20 22:00 102 21 160/75 (103) 97 10/18/20 21:43 22 Mechanical Ventilator 100 10/18/20 21:43 22 153/82 Mechanical Ventilator 100 10/18/20 21:00 102 21 157/83 (107) 96 10/18/20 20:43 22 Mechanical Ventilator 100 10/18/20 20:43 23 168/80 Mechanical Ventilator 100 10/18/20 20:10 99 154/77 10/18/20 20:00 100 10/18/20 20:00 Mechanical Ventilator 10/18/20 20:00 99.7 99 25 154/77 (102) 96 10/18/20 19:43 22 Mechanical Ventilator 100 10/18/20 19:43 24 152/77 Mechanical Ventilator 100 10/18/20 19:34 103 25 100 10/18/20 19:29 99 10/18/20 19:15 97 22 147/79 (101) 95 10/18/20 19:00 98 20 165/92 (116) 95 10/18/20 18:45 98 22 152/79 (103) 95 10/18/20 18:43 23 Mechanical Ventilator 10/18/20 18:43 22 165/92 Mechanical Ventilator 10/18/20 18:30 99 22 143/78 (99) 95 10/18/20 18:15 94 22 141/71 (94) 94 10/18/20 18:00 93 22 120/98 (105) 94 10/18/20 17:43 21 Mechanical Ventilator 10/18/20 17:43 22 155/71 Mechanical Ventilator 10/18/20 17:15 92 21 154/75 (101) 93 10/18/20 17:00 94 21 152/73 (99) 93 10/18/20 17:00 98 23 154/75 (101) 94 10/18/20 16:45 93 20 151/72 (98) 93 10/18/20 16:43 23 Mechanical Ventilator 10/18/20 16:43 22 153/78 Mechanical Ventilator 10/18/20 16:30 93 22 153/78 (103) 93 10/18/20 16:15 92 23 138/78 (98) 94 10/18/20 16:00 100 10/18/20 16:00 98.9 91 22 150/76 (100) 94 10/18/20 16:00 94 10/18/20 15:45 91 22 150/74 (99) 95 10/18/20 15:30 91 20 117/68 (84) 93 10/18/20 15:20 23 Nasal Cannula 10/18/20 15:15 91 21 151/74 (99) 94 10/18/20 15:00 91 21 125/70 (88) 95 10/18/20 14:45 91 23 127/66 (86) 95 10/18/20 14:30 93 21 127/69 (88) 95 10/18/20 14:15 93 20 130/65 (86) 95 10/18/20 14:00 93 22 141/68 (92) 95 10/18/20 13:42 21 130/65 Mechanical Ventilator 10/18/20 13:41 94 24 100 10/18/20 13:15 91 21 124/62 (82) 95 10/18/20 13:00 90 21 113/67 (82) 95 10/18/20 12:42 20 120/63 Mechanical Ventilator 10/18/20 12:30 89 20 112/63 (79) 95 10/18/20 12:15 93 21 120/63 (82) 94 10/18/20 12:00 99.9 91 21 125/64 (84) 94 10/18/20 12:00 94 10/18/20 12:00 100 10/18/20 11:45 94 22 120/61 (80) 93 10/18/20 11:42 21 125/64 Mechanical Ventilator 10/18/20 11:30 96 20 123/61 (81) 94 10/18/20 11:15 94 23 132/65 (87) 93 10/18/20 11:00 95 23 129/70 (89) 94 10/18/20 11:00 24 132/65 Mechanical Ventilator 10/18/20 10:59 23 147/69 Mechanical Ventilator 10/18/20 10:45 94 22 121/67 (85) 93 10/18/20 10:42 23 129/70 Mechanical Ventilator 10/18/20 10:30 95 22 125/62 (83) 92 10/18/20 10:15 102 22 147/69 (95) 92 10/18/20 10:00 99 24 140/68 (92) 91 10/18/20 09:59 25 136/70 Mechanical Ventilator 10/18/20 09:42 22 140/68 Mechanical Ventilator 10/18/20 09:30 92 22 141/68 (92) 92 10/18/20 09:15 94 22 127/63 (84) 92 10/18/20 09:00 99.8 91 22 108/60 (76) 10/18/20 09:00 Mechanical Ventilator 10/18/20 08:42 22 108/60 Mechanical Ventilator Intake and Output 10/18/20 10/19/20 19:00 07:00 Intake Total 625.416 ml 563 ml Output Total 710 ml 600 ml Balance -84.584 ml -37 ml IV Total 265.416 ml 203 ml Tube Feeding 360 ml 360 ml Output Urine Total 710 ml 600 ml Objective deferred due to COVID Laboratory Tests 10/18/20 12:11: POC Whole Blood Glucose 242H 10/18/20 17:39: POC Whole Blood Glucose 207H 10/18/20 20:04: POC Whole Blood Glucose [Pending] 10/19/20 04:00: White Blood Count 17.3H, Red Blood Count 3.75L, Hemoglobin 10.8L, Hematocrit 35.0L, Mean Corpuscular Volume 93, Mean Corpuscular Hemoglobin 28.8, Mean Corpuscular Hemoglobin Concent 30.8L, Red Cell Distribution Width 15.1H, Platelet Count 365, Mean Platelet Volume 8.3, Neutrophils (%) (Auto) , Lymphocytes (%) (Auto) , Monocytes (%) (Auto) , Eosinophils (%) (Auto) , Basophils (%) (Auto) , Neutrophils % (Manual) [Pending], Lymphocytes % (Manual) [Pending], Platelet Estimate [Pending], Platelet Morphology [Pending], Sodium Level 147H, Potassium Level 4.8, Chloride Level 102, Carbon Dioxide Level 44*H, Anion Gap 2L, Blood Urea Nitrogen 54H, Creatinine 0.9, Estimat Glomerular Filtration Rate > 60, Glucose Level 181H, Calcium Level 9.3, Magnesium Level 2.9H, Total Bilirubin 0.2, Aspartate Amino Transf (AST/SGOT) 21, Alanine Aminotransferase (ALT/SGPT) 20, Alkaline Phosphatase 127H, Pro-B-Type Natri uretic Peptide 316H, Total Protein 7.0, Albumin 2.3L, Globulin 4.7, Albumin/Globulin Ratio 0.5L 10/19/20 05:26: POC Whole Blood Glucose [Pending] Current Medications Medications (Trade) Dose Ordered Sig/Sera Route PRN Reason Start Time Stop Time Status Last Admin Dose Admin Anastrozole (Arimidex) 1 mg DAILY ORAL 10/19/20 09:00 11/18/20 08:59 Ascorbic Acid (Vitamin C) 500 mg TWICE A DAY ORAL 09/30/20 20:00 10/30/20 19:59 10/18/20 17:26 Budesonide/ Formoterol Fumarate (Symbicort 160/ 4.5) 2 puff BIDRT INH 10/02/20 11:00 12/31/20 10:59 10/15/20 10:30 Cefepime HCl 2 gm/ Dextrose 55 ml @ 110 mls/hr Q12H IVPB 10/16/20 18:00 10/23/20 17:59 10/19/20 05:10 Cetylpyridinium Chloride (Cepacol) 1 lozg EVERY 2 HOURS PRN LAURA For Cough 09/25/20 18:15 12/24/20 18:14 09/28/20 21:19 Chlorhexidine Gluconate (Brandee-Hex 2%) 1 applic DAILY@2000 TOPIC 09/30/20 20:00 12/29/20 19:59 10/18/20 20:10 Clonidine HCl (Catapres Tab) 0.1 mg Q4H PRN ORAL SBP > 160 09/19/20 17:15 12/18/20 17:14 09/24/20 03:09 Dextrose (Dextrose 50%) 25 ml Q30M PRN IV Hypoglycemia 10/02/20 22:00 12/31/20 21:59 Dextrose (Dextrose 50%) 50 ml Q30M PRN IV Hypoglycemia 10/02/20 22:00 12/31/20 21:59 Diltiazem HCl (Cardizem Tab) 60 mg EVERY 6 HOURS NG 10/19/20 00:00 11/18/20 00:00 10/19/20 05:11 Docusate Sodium (Colace) 100 mg TWICE A DAY NG 10/16/20 09:00 11/15/20 08:59 10/18/20 17:26 Enoxaparin Sodium (Lovenox) 40 mg Q12HR SUBQ 10/16/20 09:00 01/14/21 08:59 10/18/20 20:10 Fentanyl Citrate 1000 mcg/Sodium Chloride 100 ml @ 1 mls/hr Q24H IV 10/19/20 03:00 10/26/20 02:59 10/19/20 03:10 Furosemide (Lasix) 40 mg DAILY IV 10/12/20 09:00 11/11/20 08:59 10/18/20 08:54 Guaifenesin/ Codeine Phosphate (Robitussin with codeine) 10 ml Q6H PRN ORAL For Cough 10/12/20 01:45 11/11/20 01:44 10/14/20 16:09 Hydroxyzine HCl (Atarax) 50 mg Q4H PRN ORAL itching 10/19/20 07:45 11/18/20 07:44 Insulin Aspart (NovoLOG) EVERY 6 HOURS SUBQ 10/16/20 06:00 01/01/21 06:29 10/19/20 05:38 Insulin Detemir (Levemir) 15 units BEDTIME SUBQ 10/11/20 21:00 12/31/20 21:59 10/18/20 20:11 Insulin Detemir (Levemir) 18 units DAILY SUBQ 10/11/20 09:00 01/09/21 08:59 10/18/20 08:58 Lactobacillus Acidophilus (Culturelle) 1 tab TWICE A DAY ORAL 09/25/20 18:00 12/24/20 17:59 10/18/20 17:26 Lorazepam (Ativan 2mg/ml 1ml) 2 mg Q4H PRN IV For Anxiety 10/15/20 15:15 10/22/20 15:14 10/15/20 15:26 Lorazepam (Ativan) 1 mg Q4H PRN ORAL For Anxiety 10/13/20 09:45 10/20/20 09:44 10/15/20 09:25 Magnesium Hydroxide (Mom) 30 ml DAILYPRN PRN ORAL Constipation 10/03/20 15:15 11/02/20 15:14 10/07/20 11:37 Methylprednisolone Sodium Succinate (Solu-MEDROL) 40 mg EVERY 8 HOURS IVP 10/12/20 09:00 01/10/21 08:59 10/19/20 05:10 Midazolam HCl 50 mg/Sodium Chloride 100 ml @ 0 mls/hr Q24H PRN IV To Patient Comfort 10/18/20 14:00 10/20/20 13:50 10/18/20 15:20 Pantoprazole (Protonix) 40 mg EVERY 12 HOURS IVP 10/16/20 09:00 11/15/20 08:59 10/18/20 20:10 Sertraline HCl (Zoloft) 100 mg DAILY ORAL 10/19/20 09:00 11/18/20 08:59 Vitamin D (Vitamin D) 1,000 unit DAILY ORAL 09/30/20 20:00 10/30/20 19:59 10/18/20 08:55 Zinc Sulfate (Zinc Sulfate) 220 mg DAILY ORAL 09/30/20 20:00 12/29/20 19:59 10/18/20 08:55 Assessment/Plan Assessment/Plan ASSESSMENT: acute on Chronic respiratory failure COPD exacerbation and facial cellulitis. diabetes, hypertension, chronic hypoxemia chronic debility, pulmonary congestion, COVID+ PLAN: on vent as is PEEP as is 100% steroids as per ID home meds supportive care oxygen therapy prognosis guarded IV antibiotics nutrition off load as able repeat imaging monitor for secondary infection medications/laboratory data/nursing notes/ICU care reviewed in detail note reviewed and edited care discussed with RN and RT ICU time spent >40 minutes Froilan Caruso MD 7, 2021 08:39
[2020-10-19] MEDS: Enoxaparin 80mg Inj SUBQ SCH (09:42)
[2020-10-19] MEDS: Levemir Flexpen SUBQ SCH ×2 (09:43→21:09)
[2020-10-19] MEDS: Pantoprazole Inj IVP SCH (09:44)
[2020-10-19] MEDS: Lactobacillus-GG tablet ORAL SCH ×2 (09:44→17:46)
[2020-10-19] MEDS: Docusate 100mg/10ml Liq NG SCH ×2 (09:44→17:46)
[2020-10-19] MEDS: Vitamin D 1000 units Tab ORAL SCH (09:44)
[2020-10-19] MEDS: Anastrazole 1mg tab ORAL SCH (09:45)
[2020-10-19] MEDS: Sertraline 100mg tab ORAL SCH (09:45)
[2020-10-19] MEDS: Ascorbic Acid 500mg tab ORAL SCH ×2 (09:45→17:47)
[2020-10-19] MEDS: Zinc Sulfate 220mg ORAL SCH (09:46)
--- NOTE | 2020-10-19 11:58 | Diagnostic Imaging Report ---
Indication: Shortness of breath Technique: One view of the chest Comparison: 10/16/2020 Findings: Opacity at the right lung base may reflect increased infiltrate or lobulation of the diaphragm. The heart remains enlarged. Bilateral infiltrates are otherwise unchanged. Impression: Possibly increased infiltrate at the right lung base. Otherwise stable findings over 3 days
[2020-10-19] MEDS ORDERED: fentaNYL Citrate 2,500 MCG in NS 200 ML IV SCH (14:00)
[2020-10-19] MEDS: Midazolam HCl 50mg/10ml vial 50 MG in NS 90 ML IV PRN (14:09)
[2020-10-19] MEDS: Dyna-Hex 2% Top Sol 2oz TOPIC SCH (20:00)
[2020-10-19] MEDS: Enoxaparin 40mg Inj SUBQ SCH (21:10)
[2020-10-20] VITALS (16 sets, daily range): BP systolic 74–176; BP diastolic 24–90
[2020-10-20] MEDS: dilTIAZem HCl 60mg tab NG SCH ×3 (00:07→12:00)
--- NOTE | 2020-10-20 00:13 | Cardiology Progress Note ---
Subjective DATE OF SERVICE: Oct 19, 2020 Remains on full vent support, with high dose O2 and only saturating in low 90% range Glucose iremains elevated due to steroids Monitor: sinus tachycardia with arrhythmia and PAC's. Objective Last 24 Hour Vital Signs Date Time Temp Pulse Resp B/P (MAP) Pulse Ox O2 Delivery O2 Flow Rate FiO2 10/20/20 00:07 134 176/90 10/19/20 23:00 129 24 160/76 (104) 92 10/19/20 23:00 24 153/81 Mechanical Ventilator 90 10/19/20 23:00 22 Mechanical Ventilator 90 10/19/20 22:55 129 25 90 10/19/20 22:00 126 21 148/82 (104) 92 10/19/20 22:00 23 141/82 Mechanical Ventilator 90 10/19/20 22:00 22 Mechanical Ventilator 90 10/19/20 21:00 125 21 147/84 (105) 92 10/19/20 21:00 22 156/72 Mechanical Ventilator 90 10/19/20 21:00 22 Mechanical Ventilator 90 10/19/20 20:00 Mechanical Ventilator 10/19/20 20:00 90 10/19/20 20:00 22 141/82 Mechanical Ventilator 90 10/19/20 20:00 22 Mechanical Ventilator 90 10/19/20 20:00 121 20 138/79 (98) 92 10/19/20 19:25 120 10/19/20 19:15 120 19 127/73 (91) 94 10/19/20 19:10 120 25 100 10/19/20 19:00 21 125/72 Mechanical Ventilator 90 10/19/20 19:00 22 Mechanical Ventilator 90 10/19/20 19:00 120 19 125/72 (89) 94 10/19/20 18:00 21 151/82 Mechanical Ventilator 10/19/20 18:00 22 Mechanical Ventilator 10/19/20 18:00 119 19 151/82 (105) 94 10/19/20 17:47 118 147/80 10/19/20 17:47 21 Mechanical Ventilator 10/19/20 17:45 118 22 147/80 (102) 94 10/19/20 17:30 118 20 141/78 (99) 94 10/19/20 17:15 117 19 145/80 (101) 94 10/19/20 17:00 118 22 142/81 (101) 94 10/19/20 17:00 20 142/81 Mechanical Ventilator 10/19/20 17:00 20 Mechanical Ventilator 10/19/20 16:45 117 20 152/78 (102) 93 10/19/20 16:30 117 21 151/85 (107) 93 10/19/20 16:15 117 21 147/78 (101) 93 10/19/20 16:00 Mechanical Ventilator 10/19/20 16:00 116 10/19/20 16:00 100 10/19/20 16:00 21 151/77 Mechanical Ventilator 10/19/20 16:00 21 Mechanical Ventilator 10/19/20 16:00 99.1 115 22 151/77 (101) 93 10/19/20 15:38 111 24 90 10/19/20 15:30 116 26 151/79 (103) 94 10/19/20 15:15 116 23 143/82 (102) 93 10/19/20 15:00 119 24 147/85 (105) 94 10/19/20 15:00 24 147/85 Mechanical Ventilator 10/19/20 15:00 24 Mechanical Ventilator 10/19/20 14:45 117 22 170/69 (102) 94 10/19/20 14:30 115 26 128/72 (90) 93 10/19/20 14:15 116 22 154/83 (106) 92 10/19/20 14:10 25 164/87 Mechanical Ventilator 10/19/20 14:09 Mechanical Ventilator 10/19/20 14:00 115 21 164/87 (112) 93 10/19/20 13:30 115 22 151/87 (108) 93 10/19/20 13:00 112 22 153/81 (105) 93 10/19/20 12:54 22 153/81 Mechanical Ventilator 10/19/20 12:45 112 22 146/81 (102) 93 10/19/20 12:33 99.0 10/19/20 12:30 112 22 125/78 (94) 94 10/19/20 12:15 109 22 136/80 (98) 93 10/19/20 12:00 101.0 111 22 145/75 (98) 92 10/19/20 12:00 Mechanical Ventilator 10/19/20 12:00 118 10/19/20 12:00 23 136/80 Mechanical Ventilator 1/7/21 12:00 23 Mechanical Ventilator 10/19/20 11:45 114 20 154/79 (104) 91 10/19/20 11:43 114 19 154/83 (106) 91 10/19/20 11:30 120 38 183/79 (113) 91 10/19/20 11:25 120 196/77 10/19/20 11:16 117 26 90 10/19/20 11:15 121 26 196/77 (116) 90 10/19/20 11:09 119 28 188/83 (118) 91 10/19/20 11:08 119 27 188/78 (114) 90 10/19/20 11:00 118 28 183/73 (109) 91 10/19/20 11:00 27 188/78 Mechanical Ventilator 10/19/20 11:00 27 Mechanical Ventilator 10/19/20 10:30 114 22 155/77 (103) 94 10/19/20 10:15 112 22 164/78 (106) 94 10/19/20 10:00 109 22 143/73 (96) 94 10/19/20 10:00 20 164/78 Mechanical Ventilator 10/19/20 10:00 20 Mechanical Ventilator 10/19/20 09:45 112 21 152/73 (99) 94 10/19/20 09:30 109 23 163/81 (108) 92 10/19/20 09:29 100 10/19/20 09:26 110 24 154/75 (101) 92 10/19/20 09:15 109 24 171/71 (104) 90 10/19/20 09:00 108 22 166/71 (102) 91 10/19/20 09:00 24 171/71 Mechanical Ventilator 10/19/20 09:00 24 Mechanical Ventilator 10/19/20 08:15 102 22 164/73 (103) 93 10/19/20 08:00 Mechanical Ventilator 10/19/20 08:00 90 10/19/20 08:00 22 164/73 Mechanical Ventilator 10/19/20 08:00 102 10/19/20 08:00 104 20 172/78 (109) 93 10/19/20 07:45 101 23 154/73 (100) 93 10/19/20 07:35 103 24 90 10/19/20 07:30 102.3 103 23 151/75 (100) 93 10/19/20 07:15 104 22 145/76 (99) 93 10/19/20 07:00 106 22 154/72 (99) 93 10/19/20 06:43 24 Mechanical Ventilator 100 10/19/20 06:10 22 159/78 Mechanical Ventilator 100 10/19/20 06:00 110 22 157/69 (98) 94 10/19/20 05:43 22 Mechanical Ventilator 100 10/19/20 05:11 101 144/70 10/19/20 05:10 22 145/71 Mechanical Ventilator 100 10/19/20 05:00 101 22 144/70 (94) 94 10/19/20 04:43 22 Mechanical Ventilator 100 10/19/20 04:10 22 131/69 Mechanical Ventilator 100 10/19/20 04:00 100 10/19/20 04:00 100.3 99 23 143/71 (95) 95 10/19/20 04:00 Mechanical Ventilator 10/19/20 03:43 22 Mechanical Ventilator 100 10/19/20 03:22 99 10/19/20 03:10 21 130/73 Mechanical Ventilator 100 10/19/20 03:00 98 22 130/73 (92) 97 10/19/20 02:43 22 Mechanical Ventilator 100 10/19/20 02:00 98 22 149/69 (95) 96 10/19/20 01:46 98 23 100 10/19/20 01:43 22 Mechanical Ventilator 100 10/19/20 01:43 22 139/71 Mechanical Ventilator 100 10/19/20 01:00 99 23 155/72 (99) 97 10/19/20 00:43 22 Mechanical Ventilator 100 10/19/20 00:43 22 141/77 Mechanical Ventilator 100 ROS: unchanged from 09/18/20 HEENT: Orally intubated, Mechanically Ventilated RHYTHM: NSR, ST, PACs LUNGS: bilateral rhonchi, coarse breath sounds CARDIAC: normal rate, regular rhythm, normal S1 and S2, gallop/S4 ABDOMEN: normal bowel sounds, non tender, soft, no organomegaly, other - obese EXTREMITIES: +1 edema Laboratory Tests Test 10/19/20 04:00 10/19/20 05:26 10/19/20 09:14 10/19/20 11:40 White Blood Count 17.3 K/UL (4.8-10.8) H Red Blood Count 3.75 M/UL (4.20-5.40) L Hemoglobin 10.8 G/DL (12.0-16.0) L Hematocrit 35.0 % (37.0-47.0) L Mean Corpuscular Volume 93 FL (80-99) Mean Corpuscular Hemoglobin 28.8 PG (27.0-31.0) Mean Corpuscular Hemoglobin Concent 30.8 G/DL (32.0-36.0) L Red Cell Distribution Width 15.1 % (11.6-14.8) H Platelet Count 365 K/UL (150-450) Mean Platelet Volume 8.3 FL (6.5-10.1) Neutrophils (%) (Auto) % (45.0-75.0) Lymphocytes (%) (Auto) % (20.0-45.0) Monocytes (%) (Auto) % (1.0-10.0) Eosinophils (%) (Auto) % (0.0-3.0) Basophils (%) (Auto) % (0.0-2.0) Differential Total Cells Counted 100 Neutrophils % (Manual) 83 % (45-75) H Lymphocytes % (Manual) 10 % (20-45) L Monocytes % (Manual) 7 % (1-10) Eosinophils % (Manual) 0 % (0-3) Basophils % (Manual) 0 % (0-2) Band Neutrophils 0 % (0-8) Platelet Estimate Adequate Platelet Morphology Normal Hypochromasia 1+ Anisocytosis 1+ Sodium Level 147 MMOL/L (136-145) H Potassium Level 4.8 MMOL/L (3.5-5.1) Chloride Level 102 MMOL/L (98-107) Carbon Dioxide Level 44 MMOL/L (21-32) *H Anion Gap 2 mmol/L (5-15) L Blood Urea Nitrogen 54 mg/dL (7-18) H Creatinine 0.9 MG/DL (0.55-1.30) Estimat Glomerular Filtration Rate > 60 mL/min (>60) Glucose Level 181 MG/DL (74-106) H Calcium Level 9.3 MG/DL (8.5-10.1) Magnesium Level 2.9 MG/DL (1.8-2.4) H Total Bilirubin 0.2 MG/DL (0.2-1.0) Aspartate Amino Transf (AST/SGOT) 21 U/L (15-37) Alanine Aminotransferase (ALT/SGPT) 20 U/L (12-78) Alkaline Phosphatase 127 U/L (46-116) H Pro-B-Type Natriuretic Peptide 316 pg/mL (0-125) H Total Protein 7.0 G/DL (6.4-8.2) Albumin 2.3 G/DL (3.4-5.0) L Globulin 4.7 g/dL Albumin/Globulin Ratio 0.5 (1.0-2.7) L POC Whole Blood Glucose Pending 302 MG/DL (74-106) H Arterial Blood pH 7.380 (7.350-7.450) Arterial Blood Partial Pressure CO2 82.5 mmHg (35.0-45.0) *H Arterial Blood Partial Pressure O2 57.5 mmHg (75.0-100.0) L Arterial Blood HCO3 47.7 mmol/L (22.0-26.0) *H Arterial Blood Oxygen Saturation 87.9 % (95-100) *L Arterial Blood Base Excess 18.7 (-2-2) *H Rico Test Positive Assessment/Plan Assessment/Plan COVID19 pneumonia Acute respiratory failure COPD exacerbation Hypoxia Paroxysmal atrial ectopy Sinus tachyarrhythmias Acute bronchitis worsening. Ac/chr diastolic CHF with decreasing BNP now - clinically compensated. Hx breast CA Paroxysmal atrial ectopy Hypertensive heart disease Sinus tachycardia improved UTI - K.pn (multi-drug resistant) IRDM uncontrolled on steroids Constipation Myalgias REMAINS CRITICAL AND GUARDED Vent support - wean O2 Continue IV steroids Anti-viral rx per ID - remdesivir completed Anti-coagulation Diuresis based on clinical parameters; trend BNP as needed. Titrate antiHTN regimen as needed - will continue diltiazem for atrial arrhythmia management. Insulin coverage with ongoing levemir titration - see orders Bowel regimen Werner Martinez MD Oct 20, 2020 00:13
[2020-10-20] MEDS: Midazolam HCl 50mg/10ml vial 50 MG in NS 90 ML IV PRN (04:00)
[2020-10-20] MEDS: Solu-MEDROL 40mg Inj IVP SCH (05:26)
[2020-10-20] MEDS: Cefepime HCl 2 GM in D5W 55 ML IVPB SCH (05:26)
[2020-10-20] MEDS: NovoLOG Insulin Flexpen SUBQ SCH ×3 (05:27→12:00)
[2020-10-20] MEDS ORDERED: Norepinephrine 4mg/NS Premix 250 ML IV SCH (05:45)
[2020-10-20 07:06] LABS: HEMATOCRIT 37.4 % (37.0-47.0); HEMOGLOBIN 11.2 G/DL (12.0-16.0); MEAN CORPUSCULAR VOLUME 95 FL (80-99); PLATELET COUNT 400 K/UL (150-450); RED BLOOD COUNT 3.94 M/UL (4.20-5.40); WHITE BLOOD COUNT 21.8 K/UL (4.8-10.8)
[2020-10-20] MEDS ORDERED: Levalbuterol Inh UD 1.25mg/0.5ml HHN SCH (07:30)
[2020-10-20] MEDS ORDERED: Lidocaine 1% Plain 30 ml INJ PRN (07:30)
[2020-10-20] MEDS ORDERED: Phenylephrine 100 MG in NS 240 ML IV SCH (07:30)
[2020-10-20] MEDS ORDERED: Heparin1,000 units/500ml Premix(Conc:2 units/ml) IV PRN (07:30)
[2020-10-20] MEDS ORDERED: Hydrocortisone 100mg Inj IV SCH (07:30)
[2020-10-20 07:34] LABS: CALCIUM 8.6 MG/DL (8.5-10.1); POTASSIUM 5.8 MMOL/L (3.5-5.1)
--- NOTE | 2020-10-20 07:46 | General Progress Note ---
Subjective ROS Limited/Unobtainable: Yes Constitutional: Reports: fever, malaise, weakness HEENT: Reports: no symptoms Cardiovascular: Reports: no symptoms Respiratory: Reports: shortness of breath Gastrointestinal/Abdominal: Reports: difficulty swallowing Genitourinary: Reports: no symptoms Neurologic/Psychiatric: Reports: no symptoms Endocrine: Reports: no symptoms Hematologic/Lymphatic: Reports: anemia Allergies: Coded Allergies: AMOXICILLIN (Verified Allergy, Mild, RASH HIVES, 09/29/13) ERYTHROMYCIN BASE (Unverified Allergy, Unknown, 10/13/17) IODINE (Verified Allergy, Unknown, 09/29/13) PENICILLINS (Verified Allergy, Unknown, RASH HIVES, 09/29/13) All Systems: reviewed and negative except above Subjective doing poorly. on max levophed. +fevers. intubated and sedated. decreased UOP. on abx and steroids. Objective Last 24 Hour Vital Signs Date Time Temp Pulse Resp B/P (MAP) Pulse Ox O2 Delivery O2 Flow Rate FiO2 10/20/20 07:00 126 22 89/36 (53) 77 10/20/20 06:39 106.0 10/20/20 06:12 50/19 10/20/20 06:00 129 20 88/27 (47) 71 10/20/20 05:26 132 83/40 10/20/20 05:00 101.2 135 20 74/24 (41) 90 10/20/20 04:40 135 10/20/20 04:30 21 85/43 Mechanical Ventilator 100 10/20/20 04:30 22 Mechanical Ventilator 100 10/20/20 04:00 Mechanical Ventilator 10/20/20 04:00 22 108/53 Mechanical Ventilator 100 10/20/20 04:00 22 Mechanical Ventilator 100 10/20/20 04:00 100 10/20/20 04:00 136 22 113/44 (67) 83 10/20/20 03:30 136 23 118/45 (69) 84 10/20/20 03:20 132 23 100 10/20/20 03:15 135 22 118/61 (80) 84 10/20/20 03:00 22 118/61 Mechanical Ventilator 100 10/20/20 03:00 22 Mechanical Ventilator 100 10/20/20 03:00 136 22 134/54 (80) 84 10/20/20 02:00 136 24 153/71 (98) 88 10/20/20 02:00 23 153/71 Mechanical Ventilator 100 10/20/20 02:00 Mechanical Ventilator 100 10/20/20 01:18 135 10/20/20 01:00 23 153/82 Mechanical Ventilator 100 10/20/20 01:00 22 Mechanical Ventilator 100 10/20/20 01:00 136 24 153/82 (105) 88 10/20/20 00:40 101.0 10/20/20 00:30 100 10/20/20 00:07 134 176/90 10/20/20 00:00 102.2 133 23 176/90 (118) 87 10/20/20 00:00 90 10/20/20 00:00 23 176/90 Mechanical Ventilator 100 10/20/20 00:00 22 Mechanical Ventilator 100 10/20/20 00:00 Mechanical Ventilator 10/19/20 23:00 129 24 160/76 (104) 92 10/19/20 23:00 24 153/81 Mechanical Ventilator 90 10/19/20 23:00 22 Mechanical Ventilator 90 10/19/20 22:55 129 25 90 10/19/20 22:00 126 21 148/82 (104) 92 10/19/20 22:00 23 141/82 Mechanical Ventilator 90 10/19/20 22:00 22 Mechanical Ventilator 90 10/19/20 21:00 125 21 147/84 (105) 92 10/19/20 21:00 22 156/72 Mechanical Ventilator 90 10/19/20 21:00 22 Mechanical Ventilator 90 10/19/20 20:00 Mechanical Ventilator 10/19/20 20:00 90 10/19/20 20:00 22 141/82 Mechanical Ventilator 90 10/19/20 20:00 22 Mechanical Ventilator 90 10/19/20 20:00 121 20 138/79 (98) 92 10/19/20 19:25 120 10/19/20 19:15 120 19 127/73 (91) 94 10/19/20 19:10 120 25 100 10/19/20 19:00 21 125/72 Mechanical Ventilator 90 10/19/20 19:00 22 Mechanical Ventilator 90 10/19/20 19:00 120 19 125/72 (89) 94 10/19/20 18:00 21 151/82 Mechanical Ventilator 10/19/20 18:00 22 Mechanical Ventilator 10/19/20 18:00 119 19 151/82 (105) 94 10/19/20 17:47 118 147/80 10/19/20 17:47 21 Mechanical Ventilator 10/19/20 17:45 118 22 147/80 (102) 94 10/19/20 17:30 118 20 141/78 (99) 94 10/19/20 17:15 117 19 145/80 (101) 94 10/19/20 17:00 118 22 142/81 (101) 94 10/19/20 17:00 20 142/81 Mechanical Ventilator 10/19/20 17:00 20 Mechanical Ventilator 10/19/20 16:45 117 20 152/78 (102) 93 10/19/20 16:30 117 21 151/85 (107) 93 10/19/20 16:15 117 21 147/78 (101) 93 10/19/20 16:00 Mechanical Ventilator 10/19/20 16:00 116 10/19/20 16:00 100 10/19/20 16:00 21 151/77 Mechanical Ventilator 10/19/20 16:00 21 Mechanical Ventilator 10/19/20 16:00 99.1 115 22 151/77 (101) 93 10/19/20 15:38 111 24 90 10/19/20 15:30 116 26 151/79 (103) 94 10/19/20 15:15 116 23 143/82 (102) 93 10/19/20 15:00 119 24 147/85 (105) 94 10/19/20 15:00 24 147/85 Mechanical Ventilator 10/19/20 15:00 24 Mechanical Ventilator 10/19/20 14:45 117 22 170/69 (102) 94 10/19/20 14:30 115 26 128/72 (90) 93 10/19/20 14:15 116 22 154/83 (106) 92 10/19/20 14:10 25 164/87 Mechanical Ventilator 10/19/20 14:09 Mechanical Ventilator 10/19/20 14:00 115 21 164/87 (112) 93 10/19/20 13:30 115 22 151/87 (108) 93 10/19/20 13:00 112 22 153/81 (105) 93 10/19/20 12:54 22 153/81 Mechanical Ventilator 10/19/20 12:45 112 22 146/81 (102) 93 10/19/20 12:33 99.0 1/7/21 12:30 112 22 125/78 (94) 94 10/19/20 12:15 109 22 136/80 (98) 93 10/19/20 12:00 101.0 111 22 145/75 (98) 92 10/19/20 12:00 Mechanical Ventilator 10/19/20 12:00 118 10/19/20 12:00 23 136/80 Mechanical Ventilator 10/19/20 12:00 23 Mechanical Ventilator 10/19/20 11:45 114 20 154/79 (104) 91 10/19/20 11:43 114 19 154/83 (106) 91 10/19/20 11:30 120 38 183/79 (113) 91 10/19/20 11:25 120 196/77 10/19/20 11:16 117 26 90 10/19/20 11:15 121 26 196/77 (116) 90 10/19/20 11:09 119 28 188/83 (118) 91 10/19/20 11:08 119 27 188/78 (114) 90 10/19/20 11:00 118 28 183/73 (109) 91 10/19/20 11:00 27 188/78 Mechanical Ventilator 10/19/20 11:00 27 Mechanical Ventilator 10/19/20 10:30 114 22 155/77 (103) 94 10/19/20 10:15 112 22 164/78 (106) 94 10/19/20 10:00 109 22 143/73 (96) 94 10/19/20 10:00 20 164/78 Mechanical Ventilator 10/19/20 10:00 20 Mechanical Ventilator 10/19/20 09:45 112 21 152/73 (99) 94 10/19/20 09:30 109 23 163/81 (108) 92 10/19/20 09:29 100 10/19/20 09:26 110 24 154/75 (101) 92 10/19/20 09:15 109 24 171/71 (104) 90 10/19/20 09:00 108 22 166/71 (102) 91 10/19/20 09:00 24 171/71 Mechanical Ventilator 10/19/20 09:00 24 Mechanical Ventilator 10/19/20 08:15 102 22 164/73 (103) 93 10/19/20 08:00 Mechanical Ventilator 10/19/20 08:00 90 10/19/20 08:00 22 164/73 Mechanical Ventilator 10/19/20 08:00 102 10/19/20 08:00 104 20 172/78 (109) 93 10/19/20 07:45 101 23 154/73 (100) 93 Intake and Output 10/19/20 10/20/20 19:00 07:00 Intake Total 684 ml 578 ml Output Total 475 ml 500 ml Balance 209 ml 78 ml IV Total 284 ml 308 ml Tube Feeding 330 ml 270 ml Other 70 ml Output Urine Total 475 ml 500 ml Laboratory Tests 10/19/20 09:14: Arterial Blood pH 7.380, Arterial Blood Partial Pressure CO2 82.5*H, Arterial Blood Partial Pressure O2 57.5L, Arterial Blood HCO3 47.7*H, Arterial Blood Oxygen Saturation 87.9*L, Arterial Blood Base Excess 18.7*H, Rico Test Positive 10/19/20 11:40: POC Whole Blood Glucose 302H 10/20/20 00:15: POC Whole Blood Glucose 287H 10/20/20 04:30: White Blood Count 21.8H, Red Blood Count 3.94L, Hemoglobin 11.2L, Hematocrit 37.4, Mean Corpuscular Volume 95, Mean Corpuscular Hemoglobin 28.5, Mean Corpuscular Hemoglobin Concent 30.0L, Red Cell Distribution Width 15.0H, Platelet Count 400, Mean Platelet Volume 8.8, Neutrophils (%) (Auto) , Lymphocytes (%) (Auto) , Monocytes (%) (Auto) , Eosinophils (%) (Auto) , Basophils (%) (Auto) , Neutrophils % (Manual) [Pending], Lymphocytes % (Manual) [Pending], Platelet Estimate [Pending], Platelet Morphology [Pending], Sodium Level 151H, Potassium Level 5.8H, Chloride Level 106, Carbon Dioxide Level 40H, Anion Gap 4L, Blood Urea Nitrogen 94H, Creatinine 2.0#H, Estimat Glomerular Filtration Rate 30.5, Glucose Level 259H, Calcium Level 8.6 10/20/20 05:25: Arterial Blood pH 7.324L, Arterial Blood Partial Pressure CO2 74.2*H, Arterial Blood Partial Pressure O2 48.8*L, Arterial Blood HCO3 37.7H, Arterial Blood Oxygen Saturation 78.7*L, Arterial Blood Base Excess 9.2*H, Rico Test Positive Height (Feet): 5 Height (Inches): 1.00 Weight (Pounds): 210 Objective General Appearance: WD/WN, sedated, nad. orally intubated EENT: PERRL/EOMI, normal ENT inspection Neck: non-tender, normal alignment Cardiovascular: normal peripheral pulses, normal rate, regular rhythm Respiratory/Chest: decreased bs. +wheezing Abdomen: normal bowel sounds, non tender, soft, no organomegaly Edema: no edema noted Arm (L), no edema noted Arm (R) Neurologic: twister tender paper II-XII grossly normal, no motor/sensory deficits, alert, oriented x 3, responsive, normal mood/affect Assessment/Plan Problem List: (1) Facial cellulitis ICD Codes: L03.211 - Cellulitis of face SNOMED: 791860216 (2) COPD exacerbation ICD Codes: J44.1 - COPD exacerbation SNOMED: 057436727 (3) Toxic metabolic encephalopathy ICD Codes: G92 - Toxic encephalopathy SNOMED: 129832271 (4) Hypertension, malignant ICD Codes: I10 - Hypertension, malignant SNOMED: 92457854 (5) Diabetes mellitus ICD Codes: E11.9 - Diabetes mellitus SNOMED: 49578847 Status: deteriorating Assessment/Plan: cont pressors add marlin dc picc line radiology to replace picc kike morales cultures added vanco stress dose steroids ivf dvt/stress ulcer prophylaxis critical d/w dtr and brother x 5 mins Floyd Downey MD Oct 20, 2020 07:46
[2020-10-20] MEDS ORDERED: Sodium Polystyrene Sulfonate 15gm Powder ORAL SCH (08:00)
--- NOTE | 2020-10-20 08:26 | Pulmonology Progress Note ---
Subjective ROS Limited/Unobtainable: Yes Constitutional: Reports: fever, other - T=100.3 Musculoskeletal: Denies: pain Allergies: Coded Allergies: AMOXICILLIN (Verified Allergy, Mild, RASH HIVES, 09/29/13) ERYTHROMYCIN BASE (Unverified Allergy, Unknown, 10/13/17) IODINE (Verified Allergy, Unknown, 09/29/13) PENICILLINS (Verified Allergy, Unknown, RASH HIVES, 09/29/13) All Systems: reviewed and negative except above Subjective remains intubated on vent and poor oxygen saturation / Significant acidemia noted hypotensive and fevers + COVID on PEEP SEEN EARLIER Objective Last 24 Hour Vital Signs Date Time Temp Pulse Resp B/P (MAP) Pulse Ox O2 Delivery O2 Flow Rate FiO2 10/20/20 08:11 103 93/53 10/20/20 08:10 93/53 10/20/20 07:15 122 22 75 Mechanical Ventilator 100 117 23 100 10/20/20 07:00 126 22 89/36 (53) 77 10/20/20 06:39 106.0 10/20/20 06:12 50/19 10/20/20 06:00 129 20 88/27 (47) 71 10/20/20 05:26 132 83/40 10/20/20 05:00 101.2 135 20 74/24 (41) 90 10/20/20 04:40 135 10/20/20 04:30 21 85/43 Mechanical Ventilator 100 10/20/20 04:30 22 Mechanical Ventilator 100 10/20/20 04:00 Mechanical Ventilator 10/20/20 04:00 22 108/53 Mechanical Ventilator 100 10/20/20 04:00 22 Mechanical Ventilator 100 10/20/20 04:00 100 10/20/20 04:00 136 22 113/44 (67) 83 10/20/20 03:30 136 23 118/45 (69) 84 10/20/20 03:20 132 23 100 10/20/20 03:15 135 22 118/61 (80) 84 10/20/20 03:00 22 118/61 Mechanical Ventilator 100 10/20/20 03:00 22 Mechanical Ventilator 100 10/20/20 03:00 136 22 134/54 (80) 84 10/20/20 02:00 136 24 153/71 (98) 88 10/20/20 02:00 23 153/71 Mechanical Ventilator 100 1/8/21 02:00 Mechanical Ventilator 100 10/20/20 01:18 135 10/20/20 01:00 23 153/82 Mechanical Ventilator 100 10/20/20 01:00 22 Mechanical Ventilator 100 10/20/20 01:00 136 24 153/82 (105) 88 10/20/20 00:40 101.0 10/20/20 00:30 100 10/20/20 00:07 134 176/90 10/20/20 00:00 102.2 133 23 176/90 (118) 87 10/20/20 00:00 90 10/20/20 00:00 23 176/90 Mechanical Ventilator 100 10/20/20 00:00 22 Mechanical Ventilator 100 10/20/20 00:00 Mechanical Ventilator 10/19/20 23:00 129 24 160/76 (104) 92 10/19/20 23:00 24 153/81 Mechanical Ventilator 90 10/19/20 23:00 22 Mechanical Ventilator 90 10/19/20 22:55 129 25 90 10/19/20 22:00 126 21 148/82 (104) 92 10/19/20 22:00 23 141/82 Mechanical Ventilator 90 10/19/20 22:00 22 Mechanical Ventilator 90 10/19/20 21:00 125 21 147/84 (105) 92 10/19/20 21:00 22 156/72 Mechanical Ventilator 90 10/19/20 21:00 22 Mechanical Ventilator 90 10/19/20 20:00 Mechanical Ventilator 10/19/20 20:00 90 10/19/20 20:00 22 141/82 Mechanical Ventilator 90 10/19/20 20:00 22 Mechanical Ventilator 90 10/19/20 20:00 121 20 138/79 (98) 92 10/19/20 19:25 120 10/19/20 19:15 120 19 127/73 (91) 94 10/19/20 19:10 120 25 100 10/19/20 19:00 21 125/72 Mechanical Ventilator 90 10/19/20 19:00 22 Mechanical Ventilator 90 10/19/20 19:00 120 19 125/72 (89) 94 10/19/20 18:00 21 151/82 Mechanical Ventilator 10/19/20 18:00 22 Mechanical Ventilator 10/19/20 18:00 119 19 151/82 (105) 94 10/19/20 17:47 118 147/80 10/19/20 17:47 21 Mechanical Ventilator 10/19/20 17:45 118 22 147/80 (102) 94 10/19/20 17:30 118 20 141/78 (99) 94 10/19/20 17:15 117 19 145/80 (101) 94 10/19/20 17:00 118 22 142/81 (101) 94 10/19/20 17:00 20 142/81 Mechanical Ventilator 10/19/20 17:00 20 Mechanical Ventilator 10/19/20 16:45 117 20 152/78 (102) 93 10/19/20 16:30 117 21 151/85 (107) 93 10/19/20 16:15 117 21 147/78 (101) 93 10/19/20 16:00 Mechanical Ventilator 10/19/20 16:00 116 10/19/20 16:00 100 10/19/20 16:00 21 151/77 Mechanical Ventilator 10/19/20 16:00 21 Mechanical Ventilator 10/19/20 16:00 99.1 115 22 151/77 (101) 93 10/19/20 15:38 111 24 90 10/19/20 15:30 116 26 151/79 (103) 94 10/19/20 15:15 116 23 143/82 (102) 93 10/19/20 15:00 119 24 147/85 (105) 94 10/19/20 15:00 24 147/85 Mechanical Ventilator 10/19/20 15:00 24 Mechanical Ventilator 10/19/20 14:45 117 22 170/69 (102) 94 10/19/20 14:30 115 26 128/72 (90) 93 10/19/20 14:15 116 22 154/83 (106) 92 10/19/20 14:10 25 164/87 Mechanical Ventilator 10/19/20 14:09 Mechanical Ventilator 10/19/20 14:00 115 21 164/87 (112) 93 10/19/20 13:30 115 22 151/87 (108) 93 10/19/20 13:00 112 22 153/81 (105) 93 10/19/20 12:54 22 153/81 Mechanical Ventilator 10/19/20 12:45 112 22 146/81 (102) 93 10/19/20 12:33 99.0 10/19/20 12:30 112 22 125/78 (94) 94 10/19/20 12:15 109 22 136/80 (98) 93 10/19/20 12:00 101.0 111 22 145/75 (98) 92 10/19/20 12:00 Mechanical Ventilator 10/19/20 12:00 118 10/19/20 12:00 23 136/80 Mechanical Ventilator 10/19/20 12:00 23 Mechanical Ventilator 10/19/20 11:45 114 20 154/79 (104) 91 10/19/20 11:43 114 19 154/83 (106) 91 10/19/20 11:30 120 38 183/79 (113) 91 10/19/20 11:25 120 196/77 10/19/20 11:16 117 26 90 10/19/20 11:15 121 26 196/77 (116) 90 10/19/20 11:09 119 28 188/83 (118) 91 10/19/20 11:08 119 27 188/78 (114) 90 10/19/20 11:00 118 28 183/73 (109) 91 10/19/20 11:00 27 188/78 Mechanical Ventilator 10/19/20 11:00 27 Mechanical Ventilator 10/19/20 10:30 114 22 155/77 (103) 94 10/19/20 10:15 112 22 164/78 (106) 94 10/19/20 10:00 109 22 143/73 (96) 94 10/19/20 10:00 20 164/78 Mechanical Ventilator 10/19/20 10:00 20 Mechanical Ventilator 10/19/20 09:45 112 21 152/73 (99) 94 10/19/20 09:30 109 23 163/81 (108) 92 10/19/20 09:29 100 10/19/20 09:26 110 24 154/75 (101) 92 10/19/20 09:15 109 24 171/71 (104) 90 10/19/20 09:00 108 22 166/71 (102) 91 10/19/20 09:00 24 171/71 Mechanical Ventilator 10/19/20 09:00 24 Mechanical Ventilator Intake and Output 10/19/20 10/20/20 19:00 07:00 Intake Total 684 ml 578 ml Output Total 475 ml 500 ml Balance 209 ml 78 ml IV Total 284 ml 308 ml Tube Feeding 330 ml 270 ml Other 70 ml Output Urine Total 475 ml 500 ml Objective deferred due to COVID Laboratory Tests 10/19/20 09:14: Arterial Blood pH 7.380, Arterial Blood Partial Pressure CO2 82.5*H, Arterial Blood Partial Pressure O2 57.5L, Arterial Blood HCO3 47.7*H, Arterial Blood Oxygen Saturation 87.9*L, Arterial Blood Base Excess 18.7*H, Rico Test Positive 10/19/20 11:40: POC Whole Blood Glucose 302H 10/20/20 00:15: POC Whole Blood Glucose 287H 10/20/20 04:30: White Blood Count 21.8H, Red Blood Count 3.94L, Hemoglobin 11.2L, Hematocrit 37.4, Mean Corpuscular Volume 95, Mean Corpuscular Hemoglobin 28.5, Mean Corpuscular Hemoglobin Concent 30.0L, Red Cell Distribution Width 15.0H, Platelet Count 400, Mean Platelet Volume 8.8, Neutrophils (%) (Auto) , Lymphocytes (%) (Auto) , Monocytes (%) (Auto) , Eosinophils (%) (Auto) , Basophils (%) (Auto) , Neutrophils % (Manual) [Pending], Lymphocytes % (Manual) [Pending], Platelet Estimate [Pending], Platelet Morphology [Pending], Sodium Level 151H, Potassium Level 5.8H, Chloride Level 106, Carbon Dioxide Level 40H, Anion Gap 4L, Blood Urea Nitrogen 94H, Creatinine 2.0#H, Estimat Glomerular Filtration Rate 30.5, Glucose Level 259H, Calcium Level 8.6 10/20/20 05:25: Arterial Blood pH 7.324L, Arterial Blood Partial Pressure CO2 74.2*H, Arterial Blood Partial Pressure O2 48.8*L, Arterial Blood HCO3 37.7H, Arterial Blood Oxygen Saturation 78.7*L, Arterial Blood Base Excess 9.2*H, Rico Test Positive Current Medications Medications (Trade) Dose Ordered Sig/Sera Route PRN Reason Start Time Stop Time Status Last Admin Dose Admin Acetaminophen (Tylenol) 650 mg Q4H PRN ORAL FEVER 10/19/20 12:00 11/18/20 11:59 10/20/20 06:09 Anastrozole (Arimidex) 1 mg DAILY ORAL 10/19/20 09:00 11/18/20 08:59 10/19/20 09:45 Ascorbic Acid (Vitamin C) 500 mg TWICE A DAY ORAL 09/30/20 20:00 10/30/20 19:59 10/19/20 17:47 Budesonide/ Formoterol Fumarate (Symbicort 160/ 4.5) 2 puff BIDRT INH 10/02/20 11:00 12/31/20 10:59 10/15/20 10:30 Cefepime HCl 2 gm/ Dextrose 55 ml @ 110 mls/hr Q12H IVPB 10/16/20 18:00 10/23/20 17:59 10/20/20 05:26 Cetylpyridinium Chloride (Cepacol) 1 lozg EVERY 2 HOURS PRN LAURA For Cough 09/25/20 18:15 12/24/20 18:14 09/28/20 21:19 Chlorhexidine Gluconate (Brandee-Hex 2%) 1 applic DAILY@2000 TOPIC 10/20/20 20:00 01/18/21 19:59 Clonidine HCl (Catapres Tab) 0.1 mg Q4H PRN ORAL SBP > 160 09/19/20 17:15 12/18/20 17:14 09/24/20 03:09 Dextrose (Dextrose 50%) 25 ml Q30M PRN IV Hypoglycemia 10/02/20 22:00 12/31/20 21:59 Dextrose (Dextrose 50%) 50 ml Q30M PRN IV Hypoglycemia 10/02/20 22:00 12/31/20 21:59 Diltiazem HCl (Cardizem Tab) 60 mg EVERY 6 HOURS NG 10/19/20 00:00 11/18/20 00:00 10/20/20 00:07 Docusate Sodium (Colace) 100 mg TWICE A DAY NG 10/16/20 09:00 11/15/20 08:59 10/19/20 17:46 Enoxaparin Sodium (Lovenox) 40 mg Q12HR SUBQ 10/19/20 21:00 01/17/21 20:59 10/19/20 21:10 Famotidine (Pepcid I.v.) 20 mg Q12HR IVP 10/19/20 21:00 11/18/20 20:59 10/19/20 21:09 Fentanyl Citrate 2500 mcg/Sodium Chloride 250 ml @ 10 mls/hr Q24H IV 10/19/20 14:00 10/21/20 13:59 10/19/20 14:10 Furosemide (Lasix) 40 mg DAILY IV 10/12/20 09:00 11/11/20 08:59 10/19/20 09:43 Guaifenesin/ Codeine Phosphate (Robitussin with codeine) 10 ml Q6H PRN ORAL For Cough 10/12/20 01:45 11/11/20 01:44 10/14/20 16:09 Heparin Sodium/ Sodium Chloride (Heparin 1000 units/500ml Premix) 1,000 unit ONCE PRN IV picc line placement 10/20/20 07:30 10/21/20 07:29 Hydrocortisone (Solu-CORTEF) 100 mg EVERY 8 HOURS IV 10/20/20 07:30 01/18/21 07:29 Hydroxyzine HCl (Atarax) 50 mg Q4H PRN ORAL itching 10/19/20 07:45 11/18/20 07:44 Insulin Aspart (NovoLOG) EVERY 6 HOURS SUBQ 10/16/20 06:00 01/01/21 06:29 10/20/20 05:27 Insulin Detemir (Levemir) 15 units BEDTIME SUBQ 10/11/20 21:00 12/31/20 21:59 10/19/20 21:09 Insulin Detemir (Levemir) 18 units DAILY SUBQ 10/11/20 09:00 01/09/21 08:59 10/19/20 09:43 Lactobacillus Acidophilus (Culturelle) 1 tab TWICE A DAY ORAL 09/25/20 18:00 12/24/20 17:59 10/19/20 17:46 Levalbuterol HCl (Xopenex) 1.25 mg TIDRT HHN 10/20/20 07:30 10/25/20 07:29 10/20/20 07:52 Lidocaine HCl (Xylocaine 1% 30ml) 30 ml ONCE PRN INJ picc line placement 10/20/20 07:30 10/21/20 07:29 Lorazepam (Ativan 2mg/ml 1ml) 2 mg Q4H PRN IV For Anxiety 10/15/20 15:15 10/22/20 15:14 10/15/20 15:26 Lorazepam (Ativan) 1 mg Q4H PRN ORAL For Anxiety 10/13/20 09:45 10/20/20 09:44 10/15/20 09:25 Magnesium Hydroxide (Mom) 30 ml DAILYPRN PRN ORAL Constipation 10/03/20 15:15 11/02/20 15:14 10/07/20 11:37 Methylprednisolone Sodium Succinate (Solu-MEDROL) 40 mg EVERY 8 HOURS IVP 10/12/20 09:00 01/10/21 08:59 10/20/20 05:26 Midazolam HCl 50 mg/Sodium Chloride 100 ml @ 0 mls/hr Q24H PRN IV To Patient Comfort 10/18/20 14:00 10/20/20 13:50 10/20/20 04:00 Norepinephrine Bitartrate 4 mg/ Dextrose 250 ml @ 0 mls/hr Q24H IV 10/20/20 06:00 10/20/20 08:29 10/20/20 06:12 Norepinephrine Bitartrate 8 mg/ Dextrose 558 ml @ 0 mls/hr Q24H IV 10/20/20 08:30 10/23/20 08:29 10/20/20 08:10 Phenylephrine HCl 100 mg/Sodium Chloride 250 ml @ 0 mls/hr Q24H IV 10/20/20 07:30 10/23/20 07:29 10/20/20 08:11 Sertraline HCl (Zoloft) 100 mg DAILY ORAL 10/19/20 09:00 11/18/20 08:59 10/19/20 09:45 Sodium Polystyrene Sulfonate (Kayexalate) 30 gm ONCE ORAL 10/20/20 08:00 10/20/20 09:00 Sodium Chloride 500 ml @ 999 mls/hr Q31M ONCE IV 10/20/20 08:00 10/20/20 08:30 10/20/20 08:12 Vancomycin HCl 250 ml @ 166.667 mls/hr ONCE ONCE IVPB 10/20/20 09:00 10/20/20 10:29 Vancomycin HCl (Vanco pharmacy to dose) 1 ea DAILY PRN MISC Per rx protocol 10/20/20 07:30 11/19/20 07:29 Vitamin D (Vitamin D) 1,000 unit DAILY ORAL 09/30/20 20:00 10/30/20 19:59 10/19/20 09:44 Zinc Sulfate (Zinc Sulfate) 220 mg DAILY ORAL 09/30/20 20:00 12/29/20 19:59 10/19/20 09:46 Assessment/Plan Assessment/Plan ASSESSMENT: acute on Chronic respiratory failure COPD exacerbation and facial cellulitis. diabetes, hypertension, chronic hypoxemia chronic debility, pulmonary congestion, COVID+ PLAN: on vent hypervent increase rate and increase PEEP 100% steroids as per ID home meds pressors supportive care oxygen therapy prognosis guarded IV antibiotics nutrition off load as able prognosis very poor medications/laboratory data/nursing notes/ICU care reviewed in detail note reviewed and edited care discussed with RN and RT ICU time spent >40 minutes Froilan Caruso MD Oct 20, 2020 08:25
[2020-10-20] MEDS ORDERED: Norepinephrine Bitartrate 8 MG in D5W 500ml 550 ML IV SCH (08:30)
[2020-10-20] MEDS ORDERED: Tubing IV Secondary IV ONE (08:32)
[2020-10-20] MEDS ORDERED: Atropine Inj 1mg/10ml Syr ONE (08:32)
[2020-10-20] MEDS ORDERED: NS 275ml ONE (08:32)
--- NOTE | 2020-10-20 08:53 | Emergency Room Report ---
Physical Exam Vital Signs Date Time Temp Pulse Resp B/P (MAP) Pulse Ox O2 Delivery O2 Flow Rate FiO2 10/16/20 07:00 79 22 111/60 (77) 92 10/16/20 07:00 Mechanical Ventilator 100 10/16/20 08:00 99.2 Medical Decision Making Diagnostic Impression: Primary Impression: Erysipelas Additional Impression: COPD exacerbation ER Course Called to ICU for CODE BLUE. Patient intubated and maxed out on 2 pressors. Arrives with ongoing CPR. Patient already received epinephrine. Initial rhythm checks showed asystole. Continued compressions epinephrine and bicarb per ACLS protocol. Reviewed patient's labs showing increasing potassium and decreasing renal function. Treated with calcium. Labs show worsening white count and worsening respiratory function. Unable to regain pulses. Last rhythm asystole. Patient pronounced at 0833. Admitting MD notified. Last Vital Signs Date Time Temp Pulse Resp B/P (MAP) Pulse Ox O2 Delivery O2 Flow Rate FiO2 10/20/20 08:11 103 93/53 10/20/20 07:15 22 75 Mechanical Ventilator 100 23 100 10/20/20 06:39 106.0 Disposition: Condition: Referrals: Floyd Downey MD (PCP) Herbert Lim MD Oct 20, 2020 08:53
[2020-10-20] MEDS: Levemir Flexpen SUBQ SCH (09:00)
[2020-10-20] MEDS: Docusate 100mg/10ml Liq NG SCH (09:00)
[2020-10-20] MEDS: Anastrazole 1mg tab ORAL SCH (09:00)
[2020-10-20] MEDS ORDERED: Vancomycin 1.25gm/250ml Premix IVPB ONE (09:00)
[2020-10-20] MEDS: Lactobacillus-GG tablet ORAL SCH (09:00)
[2020-10-20] MEDS: Ascorbic Acid 500mg tab ORAL SCH (09:00)
[2020-10-20] MEDS: Enoxaparin 40mg Inj SUBQ SCH (09:00)
[2020-10-20] MEDS: Vitamin D 1000 units Tab ORAL SCH (09:00)
[2020-10-20] MEDS: Zinc Sulfate 220mg ORAL SCH (09:00)
[2020-10-20] MEDS: Sertraline 100mg tab ORAL SCH (09:00)
[2020-10-20] MEDS ORDERED: Calcium Chloride 10% 10ml carpuject IVP ONE (14:24)
[2020-10-20] MEDS ORDERED: Sodium Bicarbonate 8.4% 50ml Inj ONE (14:24)
--- NOTE | 2020-10-20 17:12 | Cardiology Progress Note ---
Subjective DATE OF SERVICE: Oct 20, 2020 Remains on full vent support, with high dose O2. Saturating poorly and increasingly acidotic. Glucose iremains elevated due to steroids Monitor: sinus tachycardia with arrhythmia and PAC's. Objective Last 24 Hour Vital Signs Date Time Temp Pulse Resp B/P (MAP) Pulse Ox O2 Delivery O2 Flow Rate FiO2 10/20/20 08:30 115 35 135/39 (71) 9 10/20/20 08:15 64 20 103/61 (75) 10 10/20/20 08:11 103 93/53 10/20/20 08:10 93/53 10/20/20 08:09 100 10/20/20 08:00 108.0 111 22 93/53 (66) 81 10/20/20 08:00 Mechanical Ventilator 10/20/20 08:00 93/53 10/20/20 08:00 100 10/20/20 08:00 118 10/20/20 07:45 119 21 87/25 (45) 75 10/20/20 07:30 124 21 94/68 (77) 76 10/20/20 07:15 124 22 82/47 (59) 77 10/20/20 07:15 122 22 75 Mechanical Ventilator 100 117 23 100 10/20/20 07:00 126 22 89/36 (53) 77 10/20/20 06:39 106.0 10/20/20 06:12 50/19 10/20/20 06:00 129 20 88/27 (47) 71 10/20/20 05:26 132 83/40 10/20/20 05:00 101.2 135 20 74/24 (41) 90 10/20/20 04:40 135 10/20/20 04:30 21 85/43 Mechanical Ventilator 100 10/20/20 04:30 22 Mechanical Ventilator 100 10/20/20 04:00 Mechanical Ventilator 10/20/20 04:00 22 108/53 Mechanical Ventilator 100 10/20/20 04:00 22 Mechanical Ventilator 100 10/20/20 04:00 100 10/20/20 04:00 136 22 113/44 (67) 83 10/20/20 03:30 136 23 118/45 (69) 84 10/20/20 03:20 132 23 100 10/20/20 03:15 135 22 118/61 (80) 84 10/20/20 03:00 22 118/61 Mechanical Ventilator 100 10/20/20 03:00 22 Mechanical Ventilator 100 10/20/20 03:00 136 22 134/54 (80) 84 10/20/20 02:00 136 24 153/71 (98) 88 10/20/20 02:00 23 153/71 Mechanical Ventilator 100 10/20/20 02:00 Mechanical Ventilator 100 10/20/20 01:18 135 10/20/20 01:00 23 153/82 Mechanical Ventilator 100 10/20/20 01:00 22 Mechanical Ventilator 100 10/20/20 01:00 136 24 153/82 (105) 88 10/20/20 00:40 101.0 10/20/20 00:30 100 10/20/20 00:07 134 176/90 10/20/20 00:00 102.2 133 23 176/90 (118) 87 10/20/20 00:00 90 10/20/20 00:00 23 176/90 Mechanical Ventilator 100 10/20/20 00:00 22 Mechanical Ventilator 100 10/20/20 00:00 Mechanical Ventilator 10/19/20 23:00 129 24 160/76 (104) 92 10/19/20 23:00 24 153/81 Mechanical Ventilator 90 10/19/20 23:00 22 Mechanical Ventilator 90 10/19/20 22:55 129 25 90 10/19/20 22:00 126 21 148/82 (104) 92 10/19/20 22:00 23 141/82 Mechanical Ventilator 90 10/19/20 22:00 22 Mechanical Ventilator 90 10/19/20 21:00 125 21 147/84 (105) 92 10/19/20 21:00 22 156/72 Mechanical Ventilator 90 10/19/20 21:00 22 Mechanical Ventilator 90 10/19/20 20:00 Mechanical Ventilator 10/19/20 20:00 90 10/19/20 20:00 22 141/82 Mechanical Ventilator 90 10/19/20 20:00 22 Mechanical Ventilator 90 10/19/20 20:00 121 20 138/79 (98) 92 10/19/20 19:25 120 10/19/20 19:15 120 19 127/73 (91) 94 10/19/20 19:10 120 25 100 10/19/20 19:00 21 125/72 Mechanical Ventilator 90 10/19/20 19:00 22 Mechanical Ventilator 90 10/19/20 19:00 120 19 125/72 (89) 94 10/19/20 18:00 21 151/82 Mechanical Ventilator 10/19/20 18:00 22 Mechanical Ventilator 10/19/20 18:00 119 19 151/82 (105) 94 10/19/20 17:47 118 147/80 10/19/20 17:47 21 Mechanical Ventilator 10/19/20 17:45 118 22 147/80 (102) 94 10/19/20 17:30 118 20 141/78 (99) 94 10/19/20 17:15 117 19 145/80 (101) 94 ROS: unchanged from 09/18/20 HEENT: Orally intubated, Mechanically Ventilated RHYTHM: NSR, ST, PACs LUNGS: bilateral rhonchi, coarse breath sounds CARDIAC: normal rate, regular rhythm, normal S1 and S2, gallop/S4 ABDOMEN: normal bowel sounds, non tender, soft, no organomegaly, other - obese EXTREMITIES: +1 edema Laboratory Tests Test 10/20/20 00:15 10/20/20 04:30 10/20/20 05:25 10/20/20 07:45 POC Whole Blood Glucose 287 MG/DL (74-106) H White Blood Count 21.8 K/UL (4.8-10.8) H Red Blood Count 3.94 M/UL (4.20-5.40) L Hemoglobin 11.2 G/DL (12.0-16.0) L Hematocrit 37.4 % (37.0-47.0) Mean Corpuscular Volume 95 FL (80-99) Mean Corpuscular Hemoglobin 28.5 PG (27.0-31.0) Mean Corpuscular Hemoglobin Concent 30.0 G/DL (32.0-36.0) L Red Cell Distribution Width 15.0 % (11.6-14.8) H Platelet Count 400 K/UL (150-450) Mean Platelet Volume 8.8 FL (6.5-10.1) Neutrophils (%) (Auto) % (45.0-75.0) Lymphocytes (%) (Auto) % (20.0-45.0) Monocytes (%) (Auto) % (1.0-10.0) Eosinophils (%) (Auto) % (0.0-3.0) Basophils (%) (Auto) % (0.0-2.0) Differential Total Cells Counted 100 Neutrophils % (Manual) 92 % (45-75) H Lymphocytes % (Manual) 4 % (20-45) L Monocytes % (Manual) 4 % (1-10) Eosinophils % (Manual) 0 % (0-3) Basophils % (Manual) 0 % (0-2) Band Neutrophils 0 % (0-8) Platelet Estimate Adequate Platelet Morphology Normal Hypochromasia 1+ Anisocytosis 1+ Sodium Level 151 MMOL/L (136-145) H Potassium Level 5.8 MMOL/L (3.5-5.1) H Chloride Level 106 MMOL/L (98-107) Carbon Dioxide Level 40 MMOL/L (21-32) H Anion Gap 4 mmol/L (5-15) L Blood Urea Nitrogen 94 mg/dL (7-18) H Creatinine 2.0 MG/DL (0.55-1.30) #H Estimat Glomerular Filtration Rate 30.5 mL/min (>60) Glucose Level 259 MG/DL (74-106) H Calcium Level 8.6 MG/DL (8.5-10.1) Arterial Blood pH 7.324 (7.350-7.450) 7.186 (7.350-7.450) Arterial Blood Partial Pressure CO2 74.2 mmHg (35.0-45.0) *H 93.2 mmHg (35.0-45.0) *H Arterial Blood Partial Pressure O2 48.8 mmHg (75.0-100.0) 47.3 mmHg (75.0-100.0) Arterial Blood HCO3 37.7 mmol/L (22.0-26.0) H 34.5 mmol/L (22.0-26.0) H Arterial Blood Oxygen Saturation 78.7 % (95-100) *L 71.1 % (95-100) *L Arterial Blood Base Excess 9.2 (-2-2) *H 3.9 (-2-2) H Rico Test Positive Positive Microbiology Date/Time Source Procedure Growth Status 10/19/20 12:55 Sputum Gram Stain - Final Resulted 10/19/20 12:55 Sputum Sputum Culture Pending Resulted Assessment/Plan Assessment/Plan COVID19 pneumonia Acute respiratory failure with severe hypoxia and acidosis COPD exacerbation Hypoxia Paroxysmal atrial ectopy Sinus tachyarrhythmias Acute bronchitis worsening. Ac/chr diastolic CHF with decreasing BNP now - clinically compensated. Hx breast CA Paroxysmal atrial ectopy Hypertensive heart disease Sinus tachycardia improved UTI - K.pn (multi-drug resistant) IRDM uncontrolled on steroids Constipation Myalgias REMAINS CRITICAL AND GUARDED Vent support - max O2 with PEEP. Continue IV steroids Anti-viral rx per ID - remdesivir completed Titrate antiHTN regimen as needed - will continue diltiazem for atrial arrhythmia management. Insulin coverage with ongoing levemir titration - see orders Prone as able Werner Martinez MD Oct 20, 2020 17:12
[2020-10-20] MEDS ORDERED: Dyna-Hex 2% Top Sol 2oz TOPIC SCH (20:00)
--- NOTE | 2020-10-23 13:12 | Discharge Summary ---
Discharge Summary Discharge Summary _ SUMMARY DATE OF ADMISSION: 09/18/2020 DATE OF EXPIRATION: 10/20/2020 REASON FOR ADMISSION: 60 years old female with past medical history of COPD, chronically oxygen dependent, obesity, hypertension, hyperlipidemia, breast cancer, status post mastectomy, presented for evaluation due to shortness of breath and facial rash. According to the patient , her oxygen concentrator and nebulizer were malfunctioning last night, and she was unable to get enough oxygen and breathing treatment. Patient was seen at the primary doctor's office and was referred to ED for COPD exacerbation for subsequent admission. Patient also complained of facial rash . Upon evaluation rapid COVID-19 was negative. Chest x-ray revealed cardiomegaly with mild pulmonary vascular congestion/early interstitial edema. No focal consolidation. Vital signs revealed hypoxia , requiring supplemental oxygen. Laboratory work-up revealed no leukocytosis, hemoglobin 10.4, hematocrit 32.1 ,platelet count 335. ABG on 4 L nasal cannula was relatively stable. Stable electrolytes and renal parameters. Glucose 112. Troponin negative , proBNP 305. EKG revealed sinus rhythm , no acute ischemic changes . Patient received IV Solu-Medrol, antibiotic, nebulizing treatment and admitted for further management CONSULTANTS: ship worker Dr. Martinez pulmonary Dr. Caruso ID specialist Dr. Delcid psychiatrist Dr. Andino [facility]: Patient started on the IV steroids and IV antibiotic. Supplemental oxygen provided and titrated to keep pulse oximetry above 92% , pulmonary toilet provided [id number] o'clock and as needed. Outpatient cardiac regimen was continued. Diuresis provided based on clinical parameters with trending proBNP and follow up with CXR. Antihypertensive regimen titrated. Blood sugar was managed with sliding scale of insulin. DVT and GI prophylaxis provided. Repeated COVID-19 by PCR on 09/27 was detected . Patient was placed on isolation, and received dexamethasone and remdesivir. Urine culture revealed Klebsiella pneumonia ESBL. Sputum culture was negative , Antibiotic regimen optimized as per ID specialist recommendation. [employer] closely followed. Patient had a guarded prognosis , given chronic respiratory failure with chronic hypoxemia and debility. Respiratory care intensified. On 10/15 patient required emergency intubation, given severe desaturation. Ventilator support provided , Patient with followed-up with ABG and chest x-ray . Patient condition continued to deteriorate. Hemodynamics were unstable , and patient started on pressors , which were subsequently maximized to keep mean arterial blood pressure above 65.. On 10/20 patient sustained cardiopulmonary arrest. ACLS protocol initiated. Unfortunately all resuscitative efforts appeared to be futile. Patient subsequently was pronounced at 8:33 AM 10/20/2020 Cause of : cardiopulmonary arrest FINAL DIAGNOSES: Status post cardiopulmonary arrest Shock Acute on chronic respiratory failure , requiring intubation COVID-19 pneumonia Facial cellulitis Klebsiella UTI COPD exacerbation with hypoxia Acute on chronic diastolic CHF History of breast cancer Hypertensive heart disease Paroxysmal atrial ectopy Diabetes mellitus Toxic metabolic encephalopathy Major depressive disorder I have been assigned to dictate discharge summary for this account. I was not involved in the patient's management. Elissa Cho NP Oct 23, 2020 13:12
== END 2020-10-20 08:33 | disposition expired | DRG 207 ==
LOC: EMR 13:08 → 2E 13:11 → EDBEDREQ 15:46 → 2E 18:00 → 4E 09-22 19:10 → 2W 10-12 03:02 → ICU 10-15 14:42
PROC: XW033E5 Introduction of Remdesivir Anti-infective into Peripheral Vein, Percutaneous Approach, New Technology Group 5 (ICD-10-PCS; principal; 2020-09-29)
PROC: B548ZZA Ultrasonography of Superior Vena Cava, Guidance (ICD-10-PCS; principal; 2020-09-29)
PROC: 02HV33Z Insertion of Infusion Device into Superior Vena Cava, Percutaneous Approach (ICD-10-PCS; principal; 2020-09-29)
PROC: 0BH17EZ Insertion of Endotracheal Airway into Trachea, Via Natural or Artificial Opening (ICD-10-PCS; 2020-10-15)
PROC: 5A1955Z Respiratory Ventilation, Greater than 96 Consecutive Hours (ICD-10-PCS; 2020-10-15)
DX: J44.1 Chronic obstructive pulmonary disease with (acute) exacerbation (principal); G92 Toxic encephalopathy; U07.1 COVID-19; J12.82 Pneumonia due to coronavirus disease 2019; I50.33 Acute on chronic diastolic (congestive) heart failure; J96.21 Acute and chronic respiratory failure with hypoxia; L03.211 Cellulitis of face; N39.0 Urinary tract infection, site not specified; R57.9 Shock, unspecified; I11.0 Hypertensive heart disease with heart failure; J44.0 Chronic obstructive pulmonary disease with (acute) lower respiratory infection; E11.65 Type 2 diabetes mellitus with hyperglycemia; E11.40 Type 2 diabetes mellitus with diabetic neuropathy, unspecified; Z85.3 Personal history of malignant neoplasm of breast; F32.9 Major depressive disorder, single episode, unspecified; F41.9 Anxiety disorder, unspecified; M81.0 Age-related osteoporosis without current pathological fracture; I87.2 Venous insufficiency (chronic) (peripheral); R00.0 Tachycardia, unspecified; B96.1 Klebsiella pneumoniae [K. pneumoniae] as the cause of diseases classified elsewhere; K59.00 Constipation, unspecified; M79.10 Myalgia, unspecified site; Z99.81 Dependence on supplemental oxygen
CPT/HCPCS: 36415; 36569; 71045; 71046; 76937; 80048; 80053; 80202; 82248; 82803; 82962; 83036; 83735; 83880; 84478; 84484; 85007; 85025; 85379; 86140; 87070; 87086; 87181; 87205; 92950; 93005; 93970; 94002; 94003; 94640; 94660; 94664; 96365; 96375; 99291; J0171; J1815; J2370; J2405; J3490; J7620; J8499; S5561; U0002